=== PATIENT | male | born 1960 | race Caucasian/White ===

== ENCOUNTER → 2019-01-08 15:54 | Outpatient (CLI) | payer MEDICARE, SELFPAY ==
--- NOTE | 2019-01-08 15:57 | CT_ITS ---
STUDY: LOW DOSE CT LUNG CANCER SCREENING REASON FOR EXAM: Male, 58 years old. Lung cancer screening RADIATION DOSAGE (If Supplied By Facility): CTDIvol = ( 4.02 ) mGy, DLP = ( 140.94 ) mGycm TECHNIQUE: No contrast was administered. Low dose technique was utilized (average mAS-38 and kVp 120). 1.25 mm axial source images with a slice interval of 1.25-mm were reconstructed in lung windows. 2.5 mm axial source images with a slice interval of 2.5-mm were reconstructed in lung windows. 5.0 mm axial source images with a slice interval of 5.0-mm were reconstructed in soft tissue windows. Nodule measured using lung windows on PACS and/or independent workstation with automated measurement of minimum and maximum diameter. Nodule measurement reported as average diameter rounded to the nearest whole number. Growth is defined as an increase ins size of greater than 1.5 mm. COMPARISON: None. FINDINGS: Lung nodules There is a 2 mm peripheral right upper lobe nodule on series 2 image 101. 2 mm peripheral right upper lobe nodule on image 112. 2 mm right middle lobe nodule on image 134. There are scattered calcified granulomas. Lungs COPD: None. Fibrosis: None. Lymph nodes: None. Other findings: None. Pleural space Effusion: None. Calcification: None. Thickening: None. Heart Heart size: Normal. Coronary calcification: Mild. Pericardial effusion: None. Other findings: None. Upper abdomen: None. Thorax: There are degenerative changes of the spine. Base of neck: None. CT/Low Dose CT Lung Screening IMPRESSION: Lung-RADS category 2 - Continue annual screening with LDCT in 12 months. IMPORTANT NOTES FOR USE: ACR Lung-RADS Version 1.0 Assessment Categories Release Date: February 23, 2014 Category: Coded 0-4 bases on nodule(s) with highest degree of suspicion. Negative screen is defined as categories 1 and 2; a positive screen is defined as categories 3 and 4. Category 3 and 4A nodules that are unchanged on interval CT should be coded as category 2, and individuals returned to screening in 12 months. Category 4X: Category 3 or 4 nodules with additional imaging findings that increase the suspicion of lung cancer, such as spiculation, GGN that doubles in size in 1 year, enlarged lymph notes, etc. Category Modifiers: S (significant finding unrelated to lung cancer) and C (prior history of treated lung cancer) may be added to the 0-4 Lung-RADS Electronically Signed: Velia Kimball, at 13:00 EDT Tel , Service support ,
== END ==
PROVIDERS: Family Provider Family Medicine; PCP Family Medicine; Referring Provider Family Medicine; Visit Provider Family Medicine
DX: Z12.2 Encounter for screening for malignant neoplasm of respiratory organs (principal); Z87.891 Personal history of nicotine dependence
CPT/HCPCS: G0297

== ENCOUNTER → 2020-08-23 10:07 | Outpatient (CLI) | payer MEDICARE, SELFPAY ==
[2020-08-23 08:17] VITALS: BMI 31.9
[2020-08-23 12:20] LABS: Basophil# 0.06 X10^3/uL; Basophil% 0.7 % (0-1); Eosinophil# 0.42 X10^3/uL; Eosinophils% 5.2 % (0-5); Hematocrit 38.1 % (40-54); Hemoglobin 12.6 g/dL (13.0-16.5); Lymphocyte % 13.5 % (19-41); Mean Corp Hgb Conc 33.1 g/dL (32-36); Mean Corpuscular Hgb 28.6 pg (27.0-32.0); Mean Corpuscular Volume 86.6 fL (80-94); Mean Platelet Vol. 9.9 fl (6.2-12.0); Monocyte# 0.51 X10^3/uL; Monocyte% 6.3 % (0-10); NRBC Flagged by Analyzer 0 % (0-5); Neutrophil # 6.03 X10^3/uL (2.7-7.7); Neutrophil % 74.1 % (47-70); Platelet Count 244 K/mm3 (150-450); RBC Distribution Width CV 14.6 % (11.6-14.6); RBC Distribution Width SD 45.9 fl (35.1-43.9); White Blood Count 8.1 K/mm3 (4.4-11.0)
[2020-08-23 12:45] LABS: Hemoglobin A1c 5.2 % (3.8-5.6)
[2020-08-23 12:55] LABS: ALB/GLOB Ratio 1.2 RATIO (0.9-2.4); AST(SGOT) 25 U/L (15-37); Alanine Aminotransfer ALT/SGPT 44 U/L (16-61); Albumin, Serum 4.3 g/dL (3.2-5.0); Alkaline Phosphatase 135 U/L (45-117); Anion Gap 8 (5-15); BUN 17 mg/dL (7-18); Calcium,Total 9.9 mg/dL (8.5-10.1); Chloride 103 mmol/L (98-107); Creatinine, Serum 1.21 mg/dL (0.70-1.30); EST Glomerular Filtration Rate 65 mL/min (>60); Est Glom Filt Rate - Afr Amer 79 mL/min (>60); Globulin 3.5 g/dL (2.2-4.2); Glucose 115 mg/dL (74-106); PSA,Total - Annual Screen 0.33 ng/mL (0.00-4.00); Potassium 4.5 mmol/L (3.5-5.1); Protein, Total 7.8 g/dL (6.4-8.2); Sodium Level 138 mmol/L (136-145)
== END ==
PROVIDERS: PCP Internal Medicine; Visit Provider Internal Medicine
DX: E78.5 Hyperlipidemia, unspecified (principal); I25.2 Old myocardial infarction; I51.9 Heart disease, unspecified; N13.8 Other obstructive and reflux uropathy; N40.1 Benign prostatic hyperplasia with lower urinary tract symptoms; Z12.5 Encounter for screening for malignant neoplasm of prostate; Z79.899 Other long term (current) drug therapy
CPT/HCPCS: 36415; 80053; 83036; 84153; 85025; G0103

== ENCOUNTER → 2020-09-03 10:15 | Outpatient (CLI) | payer MEDICARE, SELFPAY ==
[2020-08-23 08:17] VITALS: BMI 31.9
== END ==
PROVIDERS: PCP Internal Medicine; Referring Provider Internal Medicine; Visit Provider Internal Medicine
DX: R05 Cough (principal)
CPT/HCPCS: 87635; C9803; U0003

== ENCOUNTER 2020-09-14 15:20 | Emergency (ER) | payer MEDICARE, SELFPAY ==
[2020-09-14 15:20] VITALS: BP 129/80; PULSE 91; RESP 16; TEMP 36.6; O2SAT 100; BMI 29.4
--- NOTE | 2020-09-14 15:35 | EKG12_ITS ---
Test Reason : DIZZINESS Blood Pressure : / mmHG Vent. Rate : 084 BPM Atrial Rate : 084 BPM P-R Int : 160 ms QRS Dur : 106 ms QT Int : 366 ms P-R-T Axes : 040 054 059 degrees QTc Int : 432 ms Normal sinus rhythm Normal ECG Confirmed by JAMSHID OMALLEY, ALISHA ([id number]), editor book LISANDRA HAMMONDS ([id number]) on 09/15/2020 1:52:29 PM Referred By: ZAKIYA Confirmed By:ALISHA BREEN MD
[2020-09-14 15:40] VITALS: BP 109/68; BP 113/69; BP 124/72; PULSE 83; PULSE 88; PULSE 93
--- NOTE | 2020-09-14 16:04 | ED.DCSUM_ITS ---
History of Present Illness Chief Complaint: Hypotension Informant: Patient Onset: Today - Not feeling well, Yesterday - Hypotensive after work Context: Sudden Onset Timing: Intermittent Quality: Complain of orthostatic symptoms, shortness of breath and not feeling well Location: Occurred at work and episode occurred today Current Severity: - - Presently mild shortness of breath Maximum Severity: Moderate Worsened by: Nothing specific Relieved by: Nothing Associated Symptoms: Documented otherwise negative Narrative: Patient is a 60-year-old male who had his Coreg dose recently increased. He states he did not feel well it work yesterday and was short of breath. His blood pressure was normal in the morning. When he completed working his blood pressure was 100 systolic. He denied black or maroon stool. He denied chest discomfort. He denied cough, fever or chills. He denies ocular, visual auditory symptoms. He denies nausea or vomiting. He denies black or maroon stool. He he denies urologic symptoms. He denies neurologic symptoms. Prior similar symptoms: No Recent Illness/Hospitalization: Yes - Past Medical History (1) Gout Status: Acute (2) History of alcohol abuse Status: Acute (3) History of myocardial infarction Status: Acute (4) Anemia Status: Chronic (5) Anxiety and depression Status: Chronic (6) Diabetes Status: Chronic (7) GERD (gastroesophageal reflux disease) Status: Chronic (8) Liver disease Status: Chronic (9) Pancreatitis Status: Chronic (10) Schizoaffective disorder Status: Chronic (11) Status post insertion of drug-eluting stent into left anterior descending artery for coronary artery disease Status: Chronic Past Medical History - Allergies and Home Meds Allergies/Adverse Reactions: Allergies Penicillins [PCN] Allergy (Verified 09/14/20 15:22) Other Primary Care Physician: Caryl Turner MD [Primary Care Provider] - Prior records reviewed: Yes Surgical History: - - Recent stent placement Lives: Alone Smoking Status: Former smoker Drugs: None Review of Systems General: Reports: Malaise. Denies: Chills, Fever, Subjective, Sweats Eyes: Denies: Visual changes - bilaterally, Blurred Vision - bilaterally ENT: Denies: Bilateral ear pain Cardiovascular: Denies: Chest pain, Palpitations Respiratory: Reports: Dyspnea. Denies: Cough, Sputum, Dyspnea on exertion Gastrointestinal: Denies: Abdominal pain, Nausea, Vomiting, Diarrhea, Melena, Hematochezia Genitourinary: Denies: Dysuria, Hematuria, Frequency Musculoskeletal: Denies: Myalgias, Arthralgias, Neck pain, Back pain, Swelling, Extremity Pain, -, - Neurological: Reports: Weakness. Denies: Headache, Parasthesia Hematologic: Denies: Easy bruising, Easy bleeding Physical Exam Vital Signs/Narrative: Vital Signs Temp Pulse Pulse Pulse Pulse Resp BP 09/14/20 15:40 83 88 93 09/14/20 15:20 97.8 F 91 16 129/80 H BP BP BP Pulse Ox 09/14/20 15:40 124/72 H 113/69 109/68 09/14/20 15:20 100 Inital Vital Signs reviewed: Yes General: Well nourished, Well developed, No Acute Distress Head: Normocephalic, Atraumatic Eyes: Perrl, EOMI. Negative for: Pale conjunctiva, Scleral icterus ENT: Moist mucous membranes, No rhinorrhea, TM's clear Neck: Supple, Nontender, No lymphadenopathy, No JVD Cardiovascular: Regular rate, Regular rhythm, No murmurs, Normal S1, Normal S2 Respiratory: No distress, CTA bilaterally Abdomen: Soft, Nontender, Nondistended, Normal bowel sounds Rectal: Deferred Extremities: Nontender, No edema Skin: Normal color, No rash Neurological: Alert, Oriented x3, Cranial nerves II-XII grossly intact, Normal Strength, Normal Sensation Psychological: Normal affect Diagnostic/Tx/Re-eval Laboratory Results 09/14/20 09/14/20 15:55 15:55 WBC 9.1 RBC 4.46 L Hgb 12.7 L Hct 39.4 L MCV 88.3 MCH 28.5 MCHC 32.2 RDW Std Deviation 44.8 H RDW Coeff of Etta 13.9 Plt Count 237 MPV 9.5 Immature Gran % (Auto) 0.400 Neut % (Auto) 72.3 H Lymph % (Auto) 15.8 L [place] % (Auto) 6.7 Eos % (Auto) 4.1 Baso % (Auto) 0.7 Absolute Neuts (auto) 6.6 Absolute Lymphs (auto) 1.44 Nucleated RBC % 0 Sodium 142 Potassium 3.9 Chloride 109 H Carbon Dioxide 27.0 Anion Gap 6 BUN 19 H Creatinine 1.20 Estim Creat Clear Calc 75.83 Est GFR (MDRD) Af Amer 80 Est GFR (MDRD) Non-Af 66 BUN/Creatinine Ratio 15.8 Glucose 183 H Calcium 9.4 - Medical Decision Making Patient has vague symptoms. The hypotension may be due to the increase in his Coreg. Presently he is not hypotensive. Orthostatics were obtained and were negative. There is no evidence anemia. His BUN to creatinine ratio is less than 20-1 and would suggest that he does not have an acute GI bleed. Patient was informed the cause of his symptoms are uncertain. More importantly, his work-up is unremarkable. ED Disposition - Plan for ED Patient: Disposition: Home or Assisted Living Diagnosis: Orthostatic lightheadedness, Weakness Instructions: ED Weakness UKO, ED Low Blood Pressure All Causes Referrals: Caryl Turner MD [Primary Care Provider] - 3-5 Days
[2020-09-14 16:15] LABS: Absolute Lymphocyte Count 1.44 X10^3/uL (0.83-4.51); Absolute Neutrophil Count 6.6 X10^3/uL (2.0-7.7); Basophil# 0.06 X10^3/uL; Basophil% 0.7 % (0-1); Eosinophil# 0.37 X10^3/uL; Eosinophils% 4.1 % (0-5); Hematocrit 39.4 % (40-54); Hemoglobin 12.7 g/dL (13.0-16.5); Lymphocyte # 1.44 X10^3/ul (4.0); Lymphocyte % 15.8 % (19-41); Mean Corp Hgb Conc 32.2 g/dL (32-36); Mean Corpuscular Hgb 28.5 pg (27.0-32.0); Mean Corpuscular Volume 88.3 fL (80-94); Mean Platelet Vol. 9.5 fl (6.2-12.0); Monocyte# 0.61 X10^3/uL; Monocyte% 6.7 % (0-10); NRBC Flagged by Analyzer 0 % (0-5); Neutrophil # 6.59 X10^3/uL (2.7-7.7); Neutrophil % 72.3 % (47-70); Platelet Count 237 K/mm3 (150-450); RBC Distribution Width CV 13.9 % (11.6-14.6); RBC Distribution Width SD 44.8 fl (35.1-43.9); Red Blood Count 4.46 M/mm3 (4.6-6.2); White Blood Count 9.1 K/mm3 (4.4-11.0)
[2020-09-14 16:19] LABS: Anion Gap 6 (5-15); BUN 19 mg/dL (7-18); BUN/Creat Ratio 15.8 RATIO (10-20); Calcium,Total 9.4 mg/dL (8.5-10.1); Chloride 109 mmol/L (98-107); EST Glomerular Filtration Rate 66 mL/min (>60); Est Glom Filt Rate - Afr Amer 80 mL/min (>60); Estimated Creatinine Clearance 75.83 ml/min; Glucose 183 mg/dL (74-106); Potassium 3.9 mmol/L (3.5-5.1); Sodium Level 142 mmol/L (136-145)
[2020-09-14 16:39] VITALS: BP 131/77; PULSE 80; RESP 16
== END 2020-09-14 16:40 | disposition home or self-care (01) ==
PROVIDERS: Emergency Provider Emergency Medicine; PCP Internal Medicine
DX: R42 Dizziness and giddiness (principal); R53.1 Weakness; I25.10 Atherosclerotic heart disease of native coronary artery without angina pectoris; E11.9 Type 2 diabetes mellitus without complications; Z95.5 Presence of coronary angioplasty implant and graft; Z79.84 Long term (current) use of oral hypoglycemic drugs; Z79.82 Long term (current) use of aspirin
CPT/HCPCS: 80048; 85025; 93005; 99284; A4216

== ENCOUNTER → 2020-09-24 06:19 | Outpatient (CLI) | payer MEDICARE, SELFPAY ==
--- NOTE | 2020-09-24 11:07 | STRESSREP ---
Stress Test Report Exercise myocardial perfusion stress test. 60-year-old man with a history of coronary artery disease status post angioplasty and stenting of the left anterior descending artery. Stress protocol: Resting EKG demonstrates normal sinus rhythm with a rate of 77 bpm normal intervals are noted resting blood pressure is 148/88 mmHg. The patient exercised according to regular Evaristo protocol for a total duration of 4 minutes and 31 seconds. The maximum heart rate attained was 146 bpm which was 90% of max impacted heart rate and a workload of 6.4 metabolic equivalents. The test was terminated due to the target heart rate being achieved and dyspnea. No angina was noted. At rest there were no ST or T wave changes noted to suggest ischemia at peak exercise upsloping ST changes were noted in the inferolateral leads with T wave inversions noted in lead III. The above did not meet the criteria for ischemia. The peak blood pressure was 230/94 mmHg which suggested hypertensive response to exercise. Myocardial perfusion protocol. 14.8 mCi of technetium 99m sestamibi was injected at rest. The patient exercised for 4-1/2 minutes and at peak exercise 44.7 mCi of technetium 99 sestamibi was injected stress images were obtained stress and rest images were reconstructed and compared in the short axis vertical long horizontal long axis. Gated images were also obtained Perfusion SPECT analysis: Review of the stress images demonstrate normal uptake of tracer noted in all areas of the myocardium the resting images similarly demonstrate normal uptake of tracer noted in all areas of the myocardium no reversibility is noted suggest ischemia no previous infarct is noted. Gated SPECT analysis: The gated ejection fraction is 55%. Conclusion: Normal exercise myocardial perfusion stress test at a moderate workload. Hypertensive response to exercise. Mild to moderate functional aerobic impairment.
== END ==
PROVIDERS: PCP Internal Medicine; Referring Provider Internal Medicine; Visit Provider Internal Medicine
DX: R06.00 Dyspnea, unspecified (principal); R42 Dizziness and giddiness; I51.9 Heart disease, unspecified; E11.9 Type 2 diabetes mellitus without complications; E78.5 Hyperlipidemia, unspecified
CPT/HCPCS: 78452; 93017; A9500; A4216

== ENCOUNTER 2020-10-06 16:47 | Emergency (ER) | payer MEDICARE, SELFPAY ==
[2020-10-06 16:47] VITALS: BP 195/104; PULSE 83; RESP 16; TEMP 36.7; O2SAT 100; BMI 32.7
[2020-10-06 17:12] VITALS: BP 182/91; PULSE 83; RESP 18; O2SAT 100
--- NOTE | 2020-10-06 17:35 | EKG12_ITS ---
Test Reason : DIZZY Blood Pressure : / mmHG Vent. Rate : 081 BPM Atrial Rate : 081 BPM P-R Int : 162 ms QRS Dur : 100 ms QT Int : 370 ms P-R-T Axes : 055 068 054 degrees QTc Int : 429 ms Normal sinus rhythm Normal ECG Confirmed by JAMSHID OMALLEY, ALISHA ([id number]), restaurant expeditor CLAUDIO SHOEMAKER ([id number]) on 10/08/2020 2:08:10 PM Referred By: SLOAN Confirmed By:ALISHA BREEN MD
--- NOTE | 2020-10-06 17:44 | ED.VISSUMM ---
- ER Visit Summary Date of Service: 10/06/20 Chief Complaint: Dizziness History of Present Illness: The patient is a 60 M presents with dizziness that began approximate 1 hour prior to arrival. Patient states he feels lightheaded. Patient states this is localized to his head. Patient states he checked his blood pressure at home and noticed it was elevated. Patient called his anesthesiologist assistant certified who referred him to the emergency department. EMS checked his blood pressure and it was 222/119. EMS also did a fingerstick blood sugar and was 160. Patient states his symptoms improved with lying flat. Patient denies any recent fevers or chills. Patient denies any sick contacts. Patient denies any loss of taste or smell. Patient admits to nausea but denies any vomiting. Patient denies any chest pain or shortness of breath. Patient admits to some occasional dysuria. Physical Examination: Vital signs are stable except for an elevated blood pressure of 195/104. Patient is afebrile. Patient is in no acute distress. Oral mucosa is pink and moist. Neck is supple. Trachea is midline. There is no JVD noted. Heart was regular rate and rhythm. Lungs are clear and equal bilaterally. Abdomen is soft. Bowel sounds are normal. There is no tenderness. There is no rebound or guarding noted. Skin is warm dry. Cranial nerves II through XII are intact. There are no focal motor or sensory deficits noted. Extremities are intact. There is no calf tenderness or edema. Test Results: EKG was obtained. On my interpretation, there is a normal sinus rhythm with a rate of 81. There are no acute ST or T wave changes noted. Emergency Department Course and Treatment: Patient was given a dose of labetalol here. Patient had some improvement of his blood pressure with this. Patient was given a dose of clonidine. Patient's blood pressure improved to 153/90. Patient was feeling better on reevaluation. Patient was instructed to continue to monitor his blood pressure and his symptoms. Patient was instructed to follow-up with his primary care physician in 3 to 5 days. Patient was instructed return if worse in any way. Patient understood and was agreeable with the plan. All questions were answered. Disposition: Discharge home Impression: 1. Hypertension 2. Lightheadedness This note was generated with [employer] dictation software. It may contain incorrect words, spelling, and punctuation that were not noted in review of the chart prior to signing ED Disposition - Plan for ED Patient: Disposition: Home or Assisted Living Diagnosis: Hypertension, Lightheadedness Instructions: ED Hypertension, Established, ED High Blood Pressure ... Referrals: Caryl Turner MD [Primary Care Provider] - 3-5 Days
[2020-10-06] MEDS: Labetalol (Prefilled) 20 MG/4 ML IV (18:10)
[2020-10-06 18:49] LABS: Absolute Lymphocyte Count 1.21 X10^3/uL (0.83-4.51); Absolute Neutrophil Count 6.6 X10^3/uL (2.0-7.7); Basophil# 0.08 X10^3/uL; Basophil% 0.9 % (0-1); Eosinophil# 0.43 X10^3/uL; Eosinophils% 4.8 % (0-5); Hematocrit 38.6 % (40-54); Hemoglobin 13.2 g/dL (13.0-16.5); Lymphocyte # 1.21 X10^3/ul (4.0); Lymphocyte % 13.4 % (19-41); Mean Corp Hgb Conc 34.2 g/dL (32-36); Mean Corpuscular Hgb 29.7 pg (27.0-32.0); Mean Corpuscular Volume 86.7 fL (80-94); Mean Platelet Vol. 9.5 fl (6.2-12.0); Monocyte# 0.64 X10^3/uL; Monocyte% 7.1 % (0-10); NRBC Flagged by Analyzer 0 % (0-5); Neutrophil # 6.63 X10^3/uL (2.7-7.7); Neutrophil % 73.4 % (47-70); Platelet Count 266 K/mm3 (150-450); RBC Distribution Width CV 13.6 % (11.6-14.6); RBC Distribution Width SD 42.4 fl (35.1-43.9); Red Blood Count 4.45 M/mm3 (4.6-6.2)
--- NOTE | 2020-10-06 18:50 | RAD_ITS ---
STUDY: X-RAY CHEST REASON FOR EXAM: Male, 60 years old. Dizziness. Nausea. TECHNIQUE: Frontal view of the chest COMPARISON: None. FINDINGS: The lungs are clear. There are no pleural effusions. There is no pneumothorax. The heart is normal in size. The visualized osseous structures are within normal limits. RAD/Chest 1 View (Portable) IMPRESSION: No acute thoracic pathology. Electronically Signed: Angel Casas, at 19:04 EST Tel , Service support ,
[2020-10-06 18:53] LABS: ALB/GLOB Ratio 1.3 RATIO (0.9-2.4); AST(SGOT) 26 U/L (15-37); Alanine Aminotransfer ALT/SGPT 55 U/L (16-61); Albumin, Serum 4.4 g/dL (3.2-5.0); Alkaline Phosphatase 157 U/L (45-117); Anion Gap 6 (5-15); BUN 14 mg/dL (7-18); BUN/Creat Ratio 15.6 RATIO (10-20); Calcium,Total 9.4 mg/dL (8.5-10.1); Chloride 102 mmol/L (98-107); EST Glomerular Filtration Rate 92 mL/min (>60); Est Glom Filt Rate - Afr Amer 111 mL/min (>60); Estimated Creatinine Clearance 101.11 ml/min; Globulin 3.4 g/dL (2.2-4.2); Glucose 126 mg/dL (74-106); Potassium 3.7 mmol/L (3.5-5.1); Protein, Total 7.8 g/dL (6.4-8.2); Sodium Level 139 mmol/L (136-145)
[2020-10-06 19:24] LABS: Bacteria 0 SEEN /hpf (None Seen); Mucous, Urine 0 SEEN /hpf (<or=2+); Red Blood Cells-Urine 0 SEEN /hpf (0-5); Squamous Epithelial Cells - UA 0 SEEN /hpf (0-5); White Blood Cells 0 SEEN /hpf (0-5)
[2020-10-06 20:01] VITALS: BP 171/102; PULSE 81; RESP 18; O2SAT 97
[2020-10-06 20:01] LABS: Color, Urine Straw (Yellow); Glucose, Dipstick Normal (Normal); Ketone-Dipstick Negative (Negative); Leukocyte Esterase-Dipstick Negative /ul (Negative); Nitrite-Dipstick Negative (Negative); Occult Blood-Urine Negative /ul (Negative); Protein-Dipstick Negative (Negative); Urine Bilirubin Dipstick Negative (Negative); Urine Clarity Clear (Clear); Urine Urobilinogen Normal (Normal)
[2020-10-06] MEDS: cloNIDine HCl 0.1 MG Tablet PO (20:34)
[2020-10-06 21:35] VITALS: BP 153/90; PULSE 89; RESP 18; O2SAT 96
[2020-10-06 22:27] VITALS: BP 154/90; PULSE 82; RESP 16; O2SAT 95
== END 2020-10-06 22:34 | disposition home or self-care (01) ==
PROVIDERS: Emergency Provider Emergency Medicine; PCP Internal Medicine
DX: I10 Essential (primary) hypertension (principal); R42 Dizziness and giddiness; I25.10 Atherosclerotic heart disease of native coronary artery without angina pectoris; Z87.891 Personal history of nicotine dependence
CPT/HCPCS: 71045; 80053; 81001; 84484; 85025; 93005; 96374; 99285; A4216

== ENCOUNTER → 2020-11-03 09:01 | Outpatient (CLI) | payer MEDICARE, SELFPAY ==
[2020-11-03 08:32] VITALS: BMI 34.2
--- NOTE | 2020-11-03 12:12 | RAD_ITS ---
STUDY: X-RAY CHEST REASON FOR EXAM: Male, 60 years old. LINDSEY X 1 WK. HX SD W/ CARDIAC STENT INSTERTION TECHNIQUE: PA and lateral views of the chest. COMPARISON: 10/06/2020 FINDINGS: The lungs are clear and expanded. There is no demonstrated pleural abnormality. Normal size heart. Normal mediastinum and janey. Normal visualized pulmonary arteries. Normal visualized aortic arch and descending thoracic aorta. Normal visualized thoracic spine. Normal visualized ribs, clavicles, and shoulders. There is no demonstrated abnormality of the visualized soft tissue structures of the upper abdomen. RAD/Chest PA and Lateral IMPRESSION: Normal x-ray examination of the chest. Electronically Signed: García Llanes MD at 12:39 EST Tel , Service support ,
[2020-11-03 12:48] LABS: Anion Gap 5 (5-15); BUN 18 mg/dL (7-18); BUN/Creat Ratio 19.2 RATIO (10-20); Calcium,Total 8.9 mg/dL (8.5-10.1); Chloride 105 mmol/L (98-107); Creatinine, Serum 0.94 mg/dL (0.70-1.30); EST Glomerular Filtration Rate 88 mL/min (>60); Est Glom Filt Rate - Afr Amer 106 mL/min (>60); Glucose 129 mg/dL (74-106); Potassium 4.3 mmol/L (3.5-5.1); Sodium Level 137 mmol/L (136-145)
[2020-11-03 12:52] LABS: D-Dimer Quantitative (DVT/PE) <= 0.27 FEU/ug/m (0.27-0.49)
[2020-11-03 12:53] LABS: Absolute Lymphocyte Count 1.27 X10^3/uL (0.83-4.51); Absolute Neutrophil Count 5.4 X10^3/uL (2.0-7.7); Basophil# 0.06 X10^3/uL; Basophil% 0.7 % (0-1); Eosinophil# 0.52 X10^3/uL; Eosinophils% 6.4 % (0-5); Hematocrit 39.7 % (40-54); Lymphocyte # 1.27 X10^3/ul (4.0); Lymphocyte % 15.7 % (19-41); Mean Corp Hgb Conc 32.7 g/dL (32-36); Mean Corpuscular Hgb 29.2 pg (27.0-32.0); Mean Corpuscular Volume 89.2 fL (80-94); Mean Platelet Vol. 9.9 fl (6.2-12.0); Monocyte# 0.74 X10^3/uL; Monocyte% 9.2 % (0-10); NRBC Flagged by Analyzer 0 % (0-5); Neutrophil # 5.44 X10^3/uL (2.7-7.7); Neutrophil % 67.5 % (47-70); Platelet Count 258 K/mm3 (150-450); RBC Distribution Width CV 13.4 % (11.6-14.6); RBC Distribution Width SD 43.8 fl (35.1-43.9); Red Blood Count 4.45 M/mm3 (4.6-6.2); White Blood Count 8.1 K/mm3 (4.4-11.0)
[2020-11-03 14:02] LABS: BNP,B-Type NATRIURETIC PEPTIDE 141.3 pg/mL (0-100)
== END ==
PROVIDERS: PCP Internal Medicine; Referring Provider Internal Medicine; Visit Provider Internal Medicine
DX: R06.00 Dyspnea, unspecified (principal); I10 Essential (primary) hypertension; I25.2 Old myocardial infarction; Z95.5 Presence of coronary angioplasty implant and graft
CPT/HCPCS: 36415; 71046; 80048; 83880; 85025; 85379

== ENCOUNTER 2020-11-19 13:07 | Emergency (ER) | payer MEDICARE, SELFPAY ==
[2020-11-19 13:08] VITALS: BP 141/76; PULSE 63; RESP 20; TEMP 36; O2SAT 100; BMI 34.0
[2020-11-19 13:30] VITALS: BP 123/77; BP 145/90; PULSE 71; RESP 19; TEMP 36.5; O2SAT 99
--- NOTE | 2020-11-19 13:32 | EKG12_ITS ---
Test Reason : SOB Blood Pressure : / mmHG Vent. Rate : 067 BPM Atrial Rate : 067 BPM P-R Int : 166 ms QRS Dur : 094 ms QT Int : 394 ms P-R-T Axes : 048 054 065 degrees QTc Int : 416 ms Normal sinus rhythm Normal ECG Confirmed by JAMSHID OMALLEY, ALISHA ([id number]), medical editor LISANDRA HAMMONDS ([id number]) on 11/23/2020 10:50:19 AM Referred By: VERNA Confirmed By:ALISHA BREEN MD
[2020-11-19 13:39] VITALS: O2SAT 98
--- NOTE | 2020-11-19 14:00 | RAD_ITS ---
STUDY: X-RAY CHEST REASON FOR EXAM: Male, 60 years old. PT C/O SOB THAT HAS INCREASED STARTING TODAY. PT REPORTS HAVING BASELINE SOB SINCE LA. PT STATES and quot;I''VE BEEN COUGHING UP PINK STUFF, MOSTLY A CLEAR LIQUID WITH A PINK TINGE and quot; TECHNIQUE: Single AP portable view of the chest. COMPARISON: Comparison is made with prior examination dated 11/03/2020. FINDINGS: EKG electrodes are seen. The lungs are clear and expanded. Scattered calcified granulomas. There is no demonstrated pleural abnormality. There is borderline cardiomegaly. Normal mediastinum and janey. Normal visualized pulmonary arteries. Normal visualized aortic arch and descending thoracic aorta. There are diffuse degenerative changes of the visualized thoracic spine. Normal visualized ribs, clavicles, and shoulders. There is no demonstrated abnormality of the visualized soft tissue structures of the upper abdomen. RAD/Chest 1 View (Portable) IMPRESSION: Borderline cardiomegaly. Electronically Signed: Samuel Singh MD at 14:14 EST , Service support ,
[2020-11-19 14:20] LABS: Absolute Lymphocyte Count 1.05 X10^3/uL (0.83-4.51); Absolute Neutrophil Count 6.7 X10^3/uL (2.0-7.7); Basophil# 0.05 X10^3/uL; Basophil% 0.5 % (0-1); Eosinophil# 0.48 X10^3/uL; Eosinophils% 5.3 % (0-5); Hematocrit 38.4 % (40-54); Hemoglobin 12.9 g/dL (13.0-16.5); Lymphocyte # 1.05 X10^3/ul (4.0); Lymphocyte % 11.5 % (19-41); Mean Corp Hgb Conc 33.6 g/dL (32-36); Mean Corpuscular Hgb 29.5 pg (27.0-32.0); Mean Corpuscular Volume 87.9 fL (80-94); Mean Platelet Vol. 9.5 fl (6.2-12.0); Monocyte# 0.76 X10^3/uL; Monocyte% 8.3 % (0-10); NRBC Flagged by Analyzer 0 % (0-5); Neutrophil # 6.74 X10^3/uL (2.7-7.7); Platelet Count 251 K/mm3 (150-450); RBC Distribution Width CV 13.5 % (11.6-14.6); RBC Distribution Width SD 43.3 fl (35.1-43.9); Red Blood Count 4.37 M/mm3 (4.6-6.2); White Blood Count 9.1 K/mm3 (4.4-11.0)
[2020-11-19 14:32] LABS: International Normalized Ratio 1.1; Prothrombin Time (Protime)PT. 13.3 SECONDS (11.7-14.9)
[2020-11-19 14:35] LABS: D-Dimer Quantitative (DVT/PE) 0.29 FEU/ug/m (0.27-0.49)
[2020-11-19 14:46] LABS: ALB/GLOB Ratio 1.2 RATIO (0.9-2.4); AST(SGOT) 28 U/L (15-37); Alanine Aminotransfer ALT/SGPT 42 U/L (16-61); Albumin, Serum 4.1 g/dL (3.2-5.0); Alkaline Phosphatase 128 U/L (45-117); Anion Gap 5 (5-15); BUN 22 mg/dL (7-18); BUN/Creat Ratio 21.6 RATIO (10-20); Chloride 102 mmol/L (98-107); Creatinine, Serum 1.02 mg/dL (0.70-1.30); EST Glomerular Filtration Rate 80 mL/min (>60); Est Glom Filt Rate - Afr Amer 96 mL/min (>60); Estimated Creatinine Clearance 89.21 ml/min; Globulin 3.3 g/dL (2.2-4.2); Glucose 172 mg/dL (74-106); Potassium 4.5 mmol/L (3.5-5.1); Protein, Total 7.4 g/dL (6.4-8.2); Sodium Level 135 mmol/L (136-145)
[2020-11-19 14:53] LABS: BNP,B-Type NATRIURETIC PEPTIDE 96.3 pg/mL (0-100)
[2020-11-19 15:08] VITALS: BP 125/76; PULSE 70; RESP 13; O2SAT 96
[2020-11-19 15:11] VITALS: BP 125/76; PULSE 70; RESP 13; TEMP 36.6; O2SAT 96
--- NOTE | 2020-11-19 15:34 | ED.DCSUM_ITS ---
History of Present Illness Chief Complaint: Shortness of Breath Informant: Patient Narrative: 60-year-old male presenting with sudden onset of shortness of breath and pink- tinged sputum. Patient states that last year he had a heart cath and up receiving a stent. He follows with cardiology in [place]. He has had shortness of breath since that time. Most recently he has had intermittent episodes lasting an hour to an hour and a half where it significantly gets worse. He and his doctor have have tried changing his antiplatelet medication from Brilinta to Effient. They tried holding his lisinopril because he had a dry cough but felt worse off the lisinopril. Patient denies any fever. No leg swelling. No known history of congestive heart failure. During the episodes he is not experiencing any pain.. - Past Medical History (1) Gout Status: Chronic (2) History of alcohol abuse Status: Chronic (3) History of myocardial infarction Status: Chronic (4) Anxiety and depression Status: Chronic (5) Chronic dyspnea Status: Chronic (6) Diabetes Status: Chronic (7) GERD (gastroesophageal reflux disease) Status: Chronic (8) Hyperlipemia Status: Chronic (9) Hypertension Status: Chronic (10) Schizoaffective disorder Status: Chronic Past Medical History - Allergies and Home Meds Allergies/Adverse Reactions: Allergies Penicillins [PCN] Allergy (Verified 11/19/20 13:08) Other Primary Care Physician: Caryl Turner MD [Primary Care Provider] - Surgical History: - - Recent stent placement Smoking Status: Former smoker Drugs: None Review of Systems General: Denies: Chills, Fever, Sweats Eyes: Denies: Visual changes - bilaterally, Diplopia ENT: Denies: Rhinorrhea, Sore throat Cardiovascular: Denies: Chest pain, Palpitations Respiratory: Reports: Dyspnea, Cough. Denies: Dyspnea on exertion Gastrointestinal: Denies: Abdominal pain, Nausea, Vomiting, Diarrhea, Melena, Hematochezia Genitourinary: Denies: Dysuria, Hematuria, Frequency Musculoskeletal: Denies: Back pain, Extremity Pain Skin: Denies: Rash, Wounds Neurological: Denies: Headache, Weakness, Numbness Physical Exam Vital Signs/Narrative: Vital Signs Temp Pulse Resp BP Pulse Ox 11/19/20 15:11 98 F 70 13 125/76 H 96 11/19/20 15:08 70 13 125/76 H 96 11/19/20 13:30 97.7 F L 71 19 H 123/77 H 99 11/19/20 13:08 96.8 F L 63 20 H 141/76 H 100 Inital Vital Signs reviewed: Yes General: Well nourished, Well developed, No Acute Distress Head: Normocephalic, Atraumatic Eyes: Perrl, EOMI ENT: Moist mucous membranes, No rhinorrhea Neck: Supple, Nontender Cardiovascular: Regular rate, Regular rhythm, No murmurs Respiratory: No distress, CTA bilaterally, Chest nontender Abdomen: Soft, Nontender, Nondistended, Normal bowel sounds Back: Nontender, Normal Inspection Extremities: Nontender, No edema Skin: Normal color, No rash Neurological: Alert, Oriented x3, Cranial nerves II-XII grossly intact, Normal Strength, Normal Sensation Psychological: Normal affect, Normal Mood Diagnostic/Tx/Re-eval Clinical Impression(s) from Imaging Studies Chest X-Ray 11/19/20 14:00 IMPRESSION: Borderline cardiomegaly. Electronically Signed: Samuel Singh MD at 14:14 EST , Service support , Laboratory Last Values WBC 9.1 K/mm3 (4.4-11.0) 11/19/20 13:45 RBC 4.37 M/mm3 (4.6-6.2) L 11/19/20 13:45 Hgb 12.9 g/dL (13.0-16.5) L 11/19/20 13:45 Hct 38.4 % (40-54) L 11/19/20 13:45 MCV 87.9 fL (80-94) 11/19/20 13:45 MCH 29.5 pg (27.0-32.0) 11/19/20 13:45 MCHC 33.6 g/dL (32-36) 11/19/20 13:45 RDW Std Deviation 43.3 fl (35.1-43.9) 11/19/20 13:45 RDW Coeff of Etta 13.5 % (11.6-14.6) 11/19/20 13:45 Plt Count 251 K/mm3 (150-450) 11/19/20 13:45 MPV 9.5 fl (6.2-12.0) 11/19/20 13:45 Immature Gran % (Auto) 0.400 % (0.0-0.9) 11/19/20 13:45 Neut % (Auto) 74.0 % (47-70) H 11/19/20 13:45 Lymph % (Auto) 11.5 % (19-41) L 11/19/20 13:45 [place] % (Auto) 8.3 % (0-10) 11/19/20 13:45 Eos % (Auto) 5.3 % (0-5) H 11/19/20 13:45 Baso % (Auto) 0.5 % (0-1) 11/19/20 13:45 Absolute Neuts (auto) 6.7 X10^3/uL (2.0-7.7) 11/19/20 13:45 Absolute Lymphs (auto) 1.05 X10^3/uL (0.83-4.51) 11/19/20 13:45 Nucleated RBC % 0 % (0-5) 11/19/20 13:45 PT 13.3 SECONDS (11.7-14.9) 11/19/20 13:45 INR 1.1 11/19/20 13:45 APTT 32.0 Seconds (24.1-36.2) 11/19/20 13:45 D-Dimer Quant (PE/DVT) 0.29 FEU/ug/m (0.27-0.49) 11/19/20 13:45 Sodium 135 mmol/L (136-145) L 11/19/20 13:45 Potassium 4.5 mmol/L (3.5-5.1) 11/19/20 13:45 Chloride 102 mmol/L (98-107) 11/19/20 13:45 Carbon Dioxide 28.0 mmol/L (21.0-32.0) 11/19/20 13:45 Anion Gap 5 (5-15) 11/19/20 13:45 BUN 22 mg/dL (7-18) H 11/19/20 13:45 Creatinine 1.02 mg/dL (0.70-1.30) 11/19/20 13:45 Estim Creat Clear Calc 89.21 ml/min 11/19/20 13:45 Est GFR (MDRD) Af Amer 96 mL/min (>60) 11/19/20 13:45 Est GFR (MDRD) Non-Af 80 mL/min (>60) 11/19/20 13:45 BUN/Creatinine Ratio 21.6 RATIO (10-20) H 11/19/20 13:45 Glucose 172 mg/dL (74-106) H 11/19/20 13:45 Calcium 9.0 mg/dL (8.5-10.1) 11/19/20 13:45 Total Bilirubin 0.70 mg/dL (0.20-1.00) 11/19/20 13:45 AST 28 U/L (15-37) 11/19/20 13:45 ALT 42 U/L (16-61) 11/19/20 13:45 Alkaline Phosphatase 128 U/L (45-117) H 11/19/20 13:45 Troponin I < 0.015 ng/mL (<0.045) 11/19/20 13:45 B-Natriuretic Peptide 96.3 pg/mL (0-100) 11/19/20 13:45 Total Protein 7.4 g/dL (6.4-8.2) 11/19/20 13:45 Albumin 4.1 g/dL (3.2-5.0) 11/19/20 13:45 Globulin 3.3 g/dL (2.2-4.2) 11/19/20 13:45 Albumin/Globulin Ratio 1.2 RATIO (0.9-2.4) 11/19/20 13:45 - EKG Initial EKG Interpretation: Sinus Rhythm - EKG is normal sinus rhythm at a rate of 67. No concerning features of ACS. - Medical Decision Making Work-up including negative troponin and D-dimer. Chest x-ray is clear. He said no events on the monitor. At this point I do not see a acute reason to keep the patient in the hospital. I suggest he follow-up with his primary care and crm marketing specialist. ED Disposition - Plan for ED Patient: Disposition: Home or Assisted Living Diagnosis: Dyspnea Instructions: ED Dyspnea Referrals: Caryl Turner MD [Primary Care Provider] - (call to arrange follow up) Additional Instructions: Please call your crm marketing specialist to arrange follow-up.
[2020-11-19 15:52] VITALS: BP 129/81; PULSE 87; RESP 18; O2SAT 98
== END 2020-11-19 15:54 | disposition home or self-care (01) ==
PROVIDERS: Emergency Provider Emergency Medicine; PCP Internal Medicine
DX: R06.00 Dyspnea, unspecified (principal); E11.9 Type 2 diabetes mellitus without complications; E78.5 Hyperlipidemia, unspecified; I10 Essential (primary) hypertension; Z87.891 Personal history of nicotine dependence
CPT/HCPCS: 71045; 80053; 83880; 84484; 85025; 85379; 85610; 85730; 93005; 99285; A4216

== ENCOUNTER → 2020-11-25 13:08 | Outpatient (CLI) | payer MEDICARE, SELFPAY ==
[2020-11-03 08:32] VITALS: BMI 34.2
[2020-11-19 13:08] VITALS: BMI 34.0
--- NOTE | 2020-11-26 07:00 | PFT ---
INTRODUCTION: The patient is a 60-year-old male that presents for pulmonary function studies secondary to a diagnosis of dyspnea. Respiratory therapy reports good patient effort. Bronchodilators were used during testing. INTERPRETATION: Forced expiration spirometry demonstrates no evidence of a large airways obstructive ventilatory defect. There was no significant response to aerosolized bronchodilators. Spirograms are of good quality and plateau normally. The respiratory flow volume loop is normal. Body plethysmography was performed and reveals a decreased TLC to 5.4 L, 73% of predicted, indicative of a mild restrictive ventilatory impairment. Diffusing capacity by single breath CO is within normal limits at 91% of predicted. IMPRESSION: Isolated mild restrictive ventilatory impairment, which could be secondary to the patient's body habitus.
== END ==
PROVIDERS: PCP Internal Medicine; Referring Provider Internal Medicine; Visit Provider Internal Medicine
DX: R06.00 Dyspnea, unspecified (principal)
CPT/HCPCS: 94060; 94726; 94729

== ENCOUNTER 2020-12-08 22:05 | Emergency (ER) | payer MEDICARE, SELFPAY ==
[2020-12-08 22:06] VITALS: BP 176/88; PULSE 94; RESP 18; TEMP 36.6; O2SAT 99; BMI 34.5
[2020-12-08 22:29] VITALS: BP 164/84; PULSE 90; RESP 28; O2SAT 98
--- NOTE | 2020-12-08 22:33 | EKG12_ITS ---
Test Reason : DYSRHYTHMIA Blood Pressure : / mmHG Vent. Rate : 094 BPM Atrial Rate : 094 BPM P-R Int : 170 ms QRS Dur : 100 ms QT Int : 354 ms P-R-T Axes : 048 061 050 degrees QTc Int : 442 ms Normal sinus rhythm Normal ECG Confirmed by JOVANNI OMALLEY, TERRENCE ([id number]), associate editor CLAUDIO SHOEMAKER ([id number]) on 12/10/2020 8:37:14 AM Referred By: DEVIN Confirmed By:JAIRO BAIG MD
[2020-12-08 22:58] LABS: Absolute Lymphocyte Count 0.71 X10^3/uL (0.83-4.51); Absolute Neutrophil Count 9.5 X10^3/uL (2.0-7.7); Basophil# 0.05 X10^3/uL; Basophil% 0.5 % (0-1); Eosinophil# 0.23 X10^3/uL; Eosinophils% 2.1 % (0-5); Hematocrit 35.3 % (40-54); Hemoglobin 12.3 g/dL (13.0-16.5); Lymphocyte # 0.71 X10^3/ul (4.0); Lymphocyte % 6.5 % (19-41); Mean Corp Hgb Conc 34.8 g/dL (32-36); Mean Corpuscular Hgb 29.9 pg (27.0-32.0); Mean Corpuscular Volume 85.9 fL (80-94); Mean Platelet Vol. 9.3 fl (6.2-12.0); Monocyte# 0.48 X10^3/uL; Monocyte% 4.4 % (0-10); NRBC Flagged by Analyzer 0 % (0-5); Neutrophil # 9.47 X10^3/uL (2.7-7.7); Neutrophil % 86.1 % (47-70); Platelet Count 183 K/mm3 (150-450); RBC Distribution Width CV 13.2 % (11.6-14.6); RBC Distribution Width SD 41.1 fl (35.1-43.9); Red Blood Count 4.11 M/mm3 (4.6-6.2)
--- NOTE | 2020-12-08 23:02 | RAD_ITS ---
STUDY: X-RAY CHEST REASON FOR EXAM: Male, 60 years old. Patient with shortness of breath and fever since 1500 today TECHNIQUE: Single AP portable view of the chest. COMPARISON: November 19, 2020 FINDINGS: There are monitoring devices The lungs are clear and expanded. There is no demonstrated pleural abnormality. Normal size heart. Normal mediastinum and janey. Normal visualized pulmonary arteries. Normal visualized aortic arch and descending thoracic aorta. There are diffuse degenerative changes of the visualized thoracic spine. Normal visualized ribs, clavicles, and shoulders. There is no demonstrated abnormality of the visualized soft tissue structures of the upper abdomen. RAD/Chest 1 View (Portable) IMPRESSION: Degenerative changes, as described above. No demonstrated acute cardiopulmonary process. Electronically Signed: Marcial Altamirano MD at 23:29 EST , Service support ,
--- NOTE | 2020-12-08 23:11 | ED.VIS.GEN ---
History of Present Illness Chief Complaint: Shortness of Breath Narrative: Patient was exposed to Covid about a week ago, he arrives to the ED he has some shortness of breath, he had a temperature 100.4 earlier tonight at home, he has some myalgias and he had an episode where he felt his heart racing. He tells me he is quite anxious because he is worried about Covid. He has no myalgias no nausea vomiting or diarrhea. He has no abdominal pain. He has no back pain or chest pain no tearing sensation. He has no lower extremity edema or calf pain or any other DVT or PE risk factors. Past medical history: Hypertension, hypercholesterolemia, coronary artery disease, diabetes Medications: Reviewed Social history: Noncontributory Review of systems: All systems negative except as indicated General: Fever as in HPI Eyes: Denies: Visual changes - bilaterally ENT: Denies: Rhinorrhea, Sore throat Cardiovascular: Denies: Chest pain. One episode of palpitations that has resolved Respiratory: Some subjective dyspnea. No cough. Gastrointestinal: Denies: Abdominal pain, Nausea, Vomiting Genitourinary: Denies: Dysuria Musculoskeletal: Denies: Myalgias Skin: Denies: Rash Neurological: Denies: Headache, no focal weakness Psych: Reports: negative Hematologic: Denies: Easy bruising, Easy bleeding Physical exam General: Patient appears slightly anxious but does not appear in any distress Head: Normocephalic, Atraumatic Eyes: Conjunctiva not pale ENT: Slightly dry mucous membranes Neck: Supple, Nontender, No lymphadenopathy Cardiovascular: Regular rate, Regular rhythm Respiratory: No distress, CTA bilaterally Abdomen: Soft, Nontender, Nondistended Back: Nontender, Normal Inspection. Negative for: CVA tenderness Extremities: Nontender, No edema Skin: Normal color, No rash Neurological: Alert, Normal Strength, Normal Sensation Psychological: Appears anxious Past Medical History - Allergies and Home Meds Allergies/Adverse Reactions: Allergies Penicillins [PCN] Allergy (Verified 12/08/20 22:09) Other Primary Care Physician: Caryl Turner MD [Primary Care Provider] - Surgical History: - - Recent stent placement Smoking Status: Former smoker Physical Exam Vital Signs/Narrative: Vital Signs Temp Pulse Resp BP Pulse Ox 12/08/20 22:29 90 28 H 164/84 H 98 12/08/20 22:06 97.9 F 94 18 176/88 H 99 Diagnostic/Tx/Re-eval - Rhythm Strip Rhythm Strip: Sinus Rhythm Rate: 94 Ectopy: None - EKG Initial EKG Interpretation: - - Sinus rhythm with a rate of 94. Normal HI and QTc intervals. No ischemic changes. Interpreted by emergency doctor - Medical Decision Making Patient has a normal emergency department work-up. He appears well. He is negative for Covid. He was initially anxious and slightly tachycardic however that significantly improved. His vitals are now normal and he has a normal work-up I believe he can be discharged with close follow-up. ED Disposition - Plan for ED Patient: Disposition: Home or Assisted Living Diagnosis: Dyspnea Instructions: ED Dyspnea Referrals: Caryl Turner MD [Primary Care Provider] - 2 Days
[2020-12-08 23:16] LABS: ALB/GLOB Ratio 1.3 RATIO (0.9-2.4); AST(SGOT) 53 U/L (15-37); Alanine Aminotransfer ALT/SGPT 58 U/L (16-61); Alkaline Phosphatase 129 U/L (45-117); Anion Gap 7 (5-15); BUN 17 mg/dL (7-18); BUN/Creat Ratio 17.8 RATIO (10-20); Calcium,Total 8.8 mg/dL (8.5-10.1); Chloride 105 mmol/L (98-107); Creatinine, Serum 0.96 mg/dL (0.70-1.30); EST Glomerular Filtration Rate 86 mL/min (>60); Est Glom Filt Rate - Afr Amer 104 mL/min (>60); Estimated Creatinine Clearance 94.79 ml/min; Globulin 3.1 g/dL (2.2-4.2); Glucose 250 mg/dL (74-106); Potassium 3.8 mmol/L (3.5-5.1); Protein, Total 7.1 g/dL (6.4-8.2); Sodium Level 135 mmol/L (136-145)
[2020-12-08 23:38] VITALS: BP 145/71; PULSE 89; RESP 20; O2SAT 99
== END 2020-12-08 23:39 | disposition home or self-care (01) ==
PROVIDERS: Emergency Provider Emergency Medicine; PCP Internal Medicine
DX: R06.00 Dyspnea, unspecified (principal); I25.10 Atherosclerotic heart disease of native coronary artery without angina pectoris; I10 Essential (primary) hypertension; E78.00 Pure hypercholesterolemia, unspecified; E11.9 Type 2 diabetes mellitus without complications; Z79.84 Long term (current) use of oral hypoglycemic drugs; Z79.82 Long term (current) use of aspirin; Z87.891 Personal history of nicotine dependence
CPT/HCPCS: 71045; 80053; 84484; 85025; 87426; 93005; 99283

== ENCOUNTER 2021-01-13 16:54 | Outpatient (RCR) | payer MEDICARE, SELFPAY ==
[2021-01-13] MEDS: COVID-19 VACC, MRNA(PFIZER)/PF 30 MCG/0.3 ML SYRINGE IM (14:20)
[2021-02-03] MEDS: COVID-19 VACC, MRNA(PFIZER)/PF 30 MCG/0.3 ML SYRINGE IM (14:08)
== END 2021-01-13 23:59 ==
LOC: IMMUN 16:54
PROVIDERS: PCP Internal Medicine; Visit Provider Family Medicine
DX: Z23 Encounter for immunization (principal)
CPT/HCPCS: 0001A; 0002A; 91300

== ENCOUNTER → 2021-08-19 14:56 | Outpatient (CLI) | payer MEDICARE, SELFPAY ==
--- NOTE | 2021-08-19 14:58 | US_ITS ---
STUDY: THYROID ULTRASOUND REASON FOR EXAM: Male, 61 years old. goiter TECHNIQUE: Ultrasound evaluation of the thyroid was performed with real-time and static rosario-scale imaging. COMPARISON: None. FINDINGS: RIGHT LOBE: The right lobe of the thyroid gland measures 4.2 x 1.2 x 1.6 cm. There is a heterogeneous echotexture. There are no demonstrated solid, cystic or complex lesions. LEFT LOBE: The left lobe of the thyroid gland measures 4.2 x 1.2 x 1.9 cm. There is a heterogeneous echotexture. Nodule 1:4 x 5 x 3 mm mixed cystic and solid isoechoic wider than tall ill-defined marginated nodule with no echogenic foci (TR 2) in the anterior left lobe consistent with an adenoma. Nodule 2:4 x 5 x 3 mm solid hypoechoic wider than tall smoothly marginated nodule with no echogenic foci (TR 4) in the anterior left lobe consistent with an adenoma. Nodule 3: 4 x 4 by 4 mm solid hypoechoic wider than tall smoothly marginated nodule with no echogenic foci (TR 4) in the posterior left lobe consistent with an adenoma. Nodule 4:6 x 13 x 7 mm solid hypoechoic wider than tall ill-defined marginated nodule with no echogenic foci (TR 4) in the posterior left lobe and follow-up ultrasound is recommended in one year. ISTHMUS: The isthmus measures 2 mm thick. . The regional lymph nodes are normal. US/Thyroid IMPRESSION: Thyroiditis with multiple nodules and follow-up ultrasound is recommended in one year. Electronically Signed: García Llanes MD at 14:23 EDT Tel , Service support ,
--- NOTE | 2021-08-19 14:58 | CT_ITS ---
STUDY: CT CHEST WITHOUT CONTRAST- LOW DOSE SCREENING PROTOCOL REASON FOR EXAM: Male, 61 years old. Former smoker. Quit smoking less than 15 years ago 20 pack per year history. No current symptoms of lung cancer or pulmonary infection. Shared decision-making with referring PCP documented in patient''s record. RADIATION DOSAGE (If Supplied By Facility): CTDIvol = ( 4.02 ) mGy, DLP = ( 144.46 ) mGycm TECHNIQUE: Low dose screening CT examination performed from the base of the neck to the upper abdomen. Sagittal and coronal reformatted images performed. Sagittal and coronal MIP images provided. The measurements provided are average, rounded measurements per ACR guidelines. COMPARISON: 01/08/2019 FINDINGS: There is no change in the 4 mm noncalcified nodule in the anterior subpleural left lower lobe the lungs on image 156 consistent with a noncalcified granuloma. No new noncalcified nodule or mass. There is no demonstrated pleural abnormality. Normal heart and pericardium. There are calcifications of the coronary arteries. Normal mediastinum. Normal hilar regions. Normal unenhanced pulmonary arteries. Normal aorta arch and descending thoracic aorta. Normal osseous structures. There is no demonstrated abnormality of the visualized upper abdomen. CT/Low Dose CT Lung Screening IMPRESSION: 1. No significant indeterminate incidental findings requiring additional imaging. 2. Incidental findings include 4 mm left lower lobe noncalcified granuloma. ASSESSMENT CATEGORY: LungRADS 1 - Negative. Continue annual screening with LDCT in 12 months, per established ACR guidelines. Electronically Signed: García Llanes MD at 6:38 EDT Tel , Service support ,
== END ==
PROVIDERS: PCP Internal Medicine; Referring Provider Internal Medicine; Visit Provider Internal Medicine
DX: E04.9 Nontoxic goiter, unspecified (principal); Z87.891 Personal history of nicotine dependence
CPT/HCPCS: 71271; 76536

== ENCOUNTER → 2021-08-25 13:48 | Outpatient (CLI) | payer MEDICARE, SELFPAY ==
[2021-08-25 15:14] LABS: Absolute Lymphocyte Count 1.16 X10^3/uL (0.83-4.51); Absolute Neutrophil Count 4.4 X10^3/uL (2.0-7.7); Basophil# 0.05 X10^3/uL; Basophil% 0.8 % (0-1); Eosinophil# 0.37 X10^3/uL; Eosinophils% 5.7 % (0-5); Hematocrit 37.3 % (40-54); Hemoglobin 12.8 g/dL (13.0-16.5); Lymphocyte # 1.16 X10^3/ul (0.83-4.51); Mean Corp Hgb Conc 34.3 g/dL (32-36); Mean Corpuscular Volume 87.6 fL (80-94); Mean Platelet Vol. 9.7 fl (6.2-12.0); Monocyte# 0.47 X10^3/uL; Monocyte% 7.3 % (0-10); NRBC Flagged by Analyzer 0 % (0-5); Neutrophil # 4.39 X10^3/uL (2.7-7.7); Neutrophil % 67.9 % (47-70); Platelet Count 201 K/mm3 (150-450); RBC Distribution Width CV 13.3 % (11.6-14.6); RBC Distribution Width SD 42.9 fl (35.1-43.9); Red Blood Count 4.26 M/mm3 (4.6-6.2); White Blood Count 6.5 K/mm3 (4.4-11.0)
[2021-08-25 15:39] LABS: ALB/GLOB Ratio 1.1 RATIO (0.9-2.4); AST(SGOT) 34 U/L (15-37); Alanine Aminotransfer ALT/SGPT 49 U/L (16-61); Albumin, Serum 3.9 g/dL (3.2-5.0); Alkaline Phosphatase 125 U/L (45-117); Anion Gap 6 (5-15); BUN 22 mg/dL (7-18); BUN/Creat Ratio 22.2 RATIO (10-20); Calcium,Total 9.3 mg/dL (8.5-10.1); Chloride 108 mmol/L (98-107); Cholesterol 101 mg/dL (200); Creatinine, Serum 0.99 mg/dL (0.70-1.30); EST Glomerular Filtration Rate 82 mL/min (>60); Est Glom Filt Rate - Afr Amer 99 mL/min (>60); Free T3 2.8 pg/mL (2.18-3.98); Globulin 3.5 g/dL (2.2-4.2); Glucose 170 mg/dL (74-106); High Density Lipoprotein 35 mg/dL; Potassium 4.9 mmol/L (3.5-5.1); Protein, Total 7.4 g/dL (6.4-8.2); Sodium Level 139 mmol/L (136-145); T4 Free Direct 0.85 ng/dL (0.76-1.46); Thyroid Stim Hormone (TSH) 1.95 uIU/mL (0.358-3.74); Triglycerides 147 mg/dL; Very Low Density Lipoprotein 29 mg/dL (5-40)
[2021-08-25 15:41] LABS: Vitamin D,25 Hydroxy 20.5 ng/mL
[2021-08-25 17:29] LABS: Hemoglobin A1c 6.5 % (3.8-5.6)
[2021-08-29 16:08] LABS: Thyroid Peroxidase AB 18 IU/mL (0-34)
[2021-08-29 19:39] LABS: Thyroglobulin Antibody < 1.0 IU/mL (0.0-0.9)
== END ==
PROVIDERS: PCP Internal Medicine; Referring Provider Internal Medicine; Visit Provider Internal Medicine
DX: K76.9 Liver disease, unspecified (principal); F25.1 Schizoaffective disorder, depressive type; E11.9 Type 2 diabetes mellitus without complications; E16.2 Hypoglycemia, unspecified; E78.5 Hyperlipidemia, unspecified; I10 Essential (primary) hypertension; E04.9 Nontoxic goiter, unspecified; E04.2 Nontoxic multinodular goiter
CPT/HCPCS: 36415; 80053; 80061; 82306; 83036; 84439; 84443; 84481; 85025; 86376; 86800

== ENCOUNTER → 2021-09-13 07:08 | Outpatient (CLI) | payer MEDICARE, SELFPAY | PROVIDERS: PCP Internal Medicine; Referring Provider Internal Medicine; Visit Provider Internal Medicine | DX: G47.30 Sleep apnea, unspecified (principal); R05.9 Cough, unspecified; R06.09 Other forms of dyspnea; I51.9 Heart disease, unspecified | CPT/HCPCS: 95810 ==

== ENCOUNTER → 2021-10-04 13:23 | Outpatient (CLI) | payer MEDICARE, SELFPAY ==
[2021-10-11 10:09] LABS: Testosterone, Free 6.56 ng/dL (5.00-21.00)
[2021-10-11 15:31] LABS: Testosterone, Total 205 ng/dL (264-916)
== END ==
PROVIDERS: PCP Internal Medicine; Referring Provider Internal Medicine; Visit Provider Internal Medicine
DX: R53.83 Other fatigue (principal)
CPT/HCPCS: 36415; 84402; 84403

== ENCOUNTER 2021-11-02 06:37 | Day surgery (SDC) | payer MEDICARE, SELFPAY ==
[2021-10-31 13:01] LABS: Absolute Lymphocyte Count 1.04 X10^3/uL (0.83-4.51); Absolute Neutrophil Count 5.2 X10^3/uL (2.0-7.7); Basophil# 0.06 X10^3/uL; Basophil% 0.9 % (0-1); Eosinophil# 0.22 X10^3/uL; Eosinophils% 3.1 % (0-5); Hematocrit 36.5 % (40-54); Hemoglobin 12.7 g/dL (13.0-16.5); Lymphocyte # 1.04 X10^3/ul (0.83-4.51); Lymphocyte % 14.8 % (19-41); Mean Corp Hgb Conc 34.8 g/dL (32-36); Mean Corpuscular Hgb 29.4 pg (27.0-32.0); Mean Corpuscular Volume 84.5 fL (80-94); Mean Platelet Vol. 9.4 fl (6.2-12.0); Monocyte# 0.43 X10^3/uL; Monocyte% 6.1 % (0-10); NRBC Flagged by Analyzer 0 % (0-5); Neutrophil # 5.22 X10^3/uL (2.7-7.7); Neutrophil % 74.5 % (47-70); Platelet Count 238 K/mm3 (150-450); RBC Distribution Width CV 13.1 % (11.6-14.6); RBC Distribution Width SD 39.5 fl (35.1-43.9); Red Blood Count 4.32 M/mm3 (4.6-6.2)
[2021-10-31 13:20] LABS: Anion Gap 9 (5-15); BUN 20 mg/dL (7-18); BUN/Creat Ratio 23.3 RATIO (10-20); Calcium,Total 9.3 mg/dL (8.5-10.1); Chloride 103 mmol/L (98-107); Creatinine, Serum 0.86 mg/dL (0.70-1.30); EST Glomerular Filtration Rate 97 mL/min (>60); Est Glom Filt Rate - Afr Amer 117 mL/min (>60); Glucose 153 mg/dL (74-106); Potassium 3.8 mmol/L (3.5-5.1); Sodium Level 137 mmol/L (136-145)
[2021-10-31 13:22] LABS: International Normalized Ratio 1.1; Partial Thromboplast Time 38.4 Seconds (24.1-36.2); Prothrombin Time (Protime)PT. 13.9 SECONDS (11.7-14.9)
[2021-11-01 07:08] VITALS: BMI 34.2
--- NOTE | 2021-11-02 08:17 | CL.D_ITS ---
Patient Name: ALIX LEE Study Date: 11/02/2021 Performing: Marck Orellana MD Ht: 73 inches 185 cm : 1960 Wt: 260.5 lbs 118 kg Age: 61 Gender: male BSA: 2.4 PROCEDURE(S) PERFORMED [id number])LHC/COR/LV CLINICAL PROFILE AND INDICATIONS Indications: Suspected CAD Heart Failure: None Stress/Imaging Stress/Image Study Performed: No CAD Presentations: Symptom unlikely to be ischemic. CONCLUSIONS Previously placed stent in the left anterior descending artery is noted to be patent. There is moder ate disease noted in the right coronary artery and the circumflex artery but no high-grade stenosis n oted. Preserved ejection fraction. RECOMMENDATIONS Medical therapy DESCRIPTION OF PROCEDURE The patient arrived to the procedure lab. The risks and benefits of the procedure as well as a full d escription of our services here and current unavailability of surgical backup were fully explained to the patient and/or their significant other prior to the catheterization. The Timeout was completed, verifying the correct patient and procedure. The patient's procedural site was prepped and draped in the usual fashion. Local anesthetic was given subcutaneously to right radial region with Lidocaine 2% . Using a modified Seldinger technique, arterial access was obtained via the right radial artery, a 6 Fr sheath was inserted. Left Coronary Artery selective angiography was performed in multiple views u sing a 5 Fr. 4.0 Clifton catheter. Right Coronary Artery selective angiography was then performed in mu ltiple views using a 5 Fr. 4.0 Clifton catheter. Left Ventriculography was performed in VÁZQUEZ projection using a 5 Fr. Pigtail catheter. LV to AO pullback pressures were then recorded.The arterial sheath was pulled and a TR Band was applied for hemostasis. 10cc of air CORONARY ANGIOGRAPHY DOMINANCE: Co- Dominant LEFT HEART ASSESSMENT Left Ventricular Ejection Fraction: by LV Gram 60 % Normal LV wall motion Normal Left Ventricular systolic function LEFT MAIN: Angiographically normal LEFT ANTERIOR DESCENDING ARTERY: PROX LAD: Previously placed stent is patent MID LAD: No significant disease noted DISTAL LAD: Mild luminal irregularities CIRCUMFLEX ARTERY: Moderate luminal irregularities up to 50% RAMUS: No significant disease noted RIGHT CORONARY ARTERY: No significant disease noted RT PDA: Proximal - Moderate luminal irregularities up to 50% COMPLICATIONS No Complications PROCEDURE MEDICATIONS Fentanyl 50 mcg IV Versed 1 mg IV Oxygen: 2 L/min via nasal cannula Heparin given IA 11/02/2021 07:56:36 Verapamil 2.5mg, Ntg 100mcgs, 3000 units of Heparin given IA 11/02/2021 07:56:36 SUMMARY OF HEMODYNAMIC DATA Time AIR REST ECG 07:02:58 AO 94/63 (77) SA 07:58:43 LV 118/5, 13 08:06:14 LV 118/4, 12 08:06:20 LV 113/8, 17 08:07:02 LVp 120/9, 19 08:07:09 AOp 129/75 (99) 08:07:14 ECG 08:17:39 08:17:57 Signed By Marck Orellana MD On 11/02/2021 08:18:13 Signed By Marck Orellana MD On 11/02/2021 08:17:03 Marck Orellana MD
== END 2021-11-02 23:59 | disposition home or self-care (01) ==
LOC: CLSP 06:40
PROVIDERS: Physician Assistant Medical; PCP Internal Medicine; Referring Provider Internal Medicine Cardiovascular Disease; Visit Provider Internal Medicine Cardiovascular Disease
DX: R06.00 Dyspnea, unspecified (principal); E11.9 Type 2 diabetes mellitus without complications; R53.83 Other fatigue; I10 Essential (primary) hypertension; I25.2 Old myocardial infarction; E78.5 Hyperlipidemia, unspecified; F32.A Depression, unspecified; F41.9 Anxiety disorder, unspecified; Z95.5 Presence of coronary angioplasty implant and graft; Z79.01 Long term (current) use of anticoagulants; Z79.82 Long term (current) use of aspirin; Z79.84 Long term (current) use of oral hypoglycemic drugs; Z79.899 Other long term (current) drug therapy; Z87.891 Personal history of nicotine dependence
CPT/HCPCS: 36415; 80048; 85025; 85610; 85730; 93458; 99152; 99153; J7040; C1769; C1894; Q9967

== ENCOUNTER 2021-12-22 13:42 | Outpatient (CLI) | payer MEDICARE, SELFPAY ==
[2021-12-22 15:48] LABS: Iron 93 ug/dL (65-175); Iron Binding Capacity,Total 394 ug/dL (250-450); PERCENT IRON SATURATION 23.6 % (15.0-55.0)
[2021-12-22 15:53] LABS: Vitamin D,25 Hydroxy 23.3 ng/mL
[2021-12-27 11:09] LABS: Testosterone, Free 7.96 ng/dL (5.00-21.00)
[2021-12-28 13:26] LABS: Testosterone, % Free 3.43 % (1.50-4.20); Testosterone, Total 232 ng/dL (264-916)
== END 2021-12-22 23:59 | disposition home or self-care (01) ==
LOC: BIMLAB 13:43
PROVIDERS: PCP Internal Medicine; Referring Provider Internal Medicine; Visit Provider Internal Medicine
DX: D64.9 Anemia, unspecified (principal); R79.89 Other specified abnormal findings of blood chemistry; R53.83 Other fatigue; E55.9 Vitamin D deficiency, unspecified
CPT/HCPCS: 36415; 82306; 83540; 83550; 84402; 84403

== ENCOUNTER 2022-01-11 13:21 | Outpatient (CLI) | payer MEDICARE, SELFPAY | END 2022-01-11 23:59 | disposition home or self-care (01) | LOC: CVS 13:22 | PROVIDERS: PCP Internal Medicine; Visit Provider Internal Medicine Cardiovascular Disease | DX: F25.1 Schizoaffective disorder, depressive type (principal); I25.118 Atherosclerotic heart disease of native coronary artery with other forms of angina pectoris; I25.2 Old myocardial infarction | CPT/HCPCS: 36415; 81291 ==

== ENCOUNTER → 2022-02-16 | Outpatient (CLI) | payer MEDICARE, SELFPAY ==
[2022-02-16 12:21] LABS: Absolute Lymphocyte Count 1.97 X10^3/uL (0.83-4.51); Absolute Neutrophil Count 5.2 X10^3/uL (2.0-7.7); Basophil# 0.08 X10^3/uL; Basophil% 0.9 % (0-1); Eosinophils% 4.7 % (0-5); Hematocrit 35.2 % (40-54); Lymphocyte # 1.97 X10^3/ul (0.83-4.51); Lymphocyte % 23.4 % (19-41); Mean Corp Hgb Conc 34.1 g/dL (32-36); Mean Corpuscular Hgb 30.3 pg (27.0-32.0); Mean Corpuscular Volume 88.9 fL (80-94); Mean Platelet Vol. 9.3 fl (6.2-12.0); Monocyte# 0.78 X10^3/uL; Monocyte% 9.3 % (0-10); NRBC Flagged by Analyzer 0 % (0-5); Neutrophil # 5.16 X10^3/uL (2.7-7.7); Neutrophil % 61.2 % (47-70); Platelet Count 203 K/mm3 (150-450); RBC Distribution Width CV 13.5 % (11.6-14.6); RBC Distribution Width SD 43.9 fl (35.1-43.9); Red Blood Count 3.96 M/mm3 (4.6-6.2); White Blood Count 8.4 K/mm3 (4.4-11.0)
[2022-02-16 13:02] LABS: ALB/GLOB Ratio 1.3 RATIO (0.9-2.4); AST(SGOT) 41 U/L (15-37); Alanine Aminotransfer ALT/SGPT 58 U/L (16-61); Alkaline Phosphatase 106 U/L (45-117); Anion Gap 6 (5-15); BUN 20 mg/dL (7-18); BUN/Creat Ratio 22.8 RATIO (10-20); Calcium,Total 9.2 mg/dL (8.5-10.1); Chloride 105 mmol/L (98-107); Creatinine, Serum 0.88 mg/dL (0.70-1.30); EST Glomerular Filtration Rate 94 mL/min (>60); Est Glom Filt Rate - Afr Amer 114 mL/min (>60); Globulin 3.1 g/dL (2.2-4.2); Glucose 129 mg/dL (74-106); Potassium 4.2 mmol/L (3.5-5.1); Protein, Total 7.1 g/dL (6.4-8.2); Sodium Level 138 mmol/L (136-145)
== END | disposition home or self-care (01) ==
LOC: BIMLAB 11:18
PROVIDERS: PCP Internal Medicine; Referring Provider Physician Assistant; Visit Provider Physician Assistant
CPT/HCPCS: 36415; 80053; 85025

== ENCOUNTER → 2022-02-20 | Outpatient (CLI) | payer MEDICARE, SELFPAY | END | disposition home or self-care (01) | LOC: LABSPEC 10:10 | PROVIDERS: PCP Internal Medicine; Referring Provider Physician Assistant; Visit Provider Physician Assistant | DX: R19.4 Change in bowel habit (principal); R19.5 Other fecal abnormalities; D64.9 Anemia, unspecified | CPT/HCPCS: 82274 ==

== ENCOUNTER → 2022-04-24 | Outpatient (CLI) | payer MEDICARE, SELFPAY ==
[2022-04-24 14:22] LABS: AST(SGOT) 30 U/L (15-37); Alanine Aminotransfer ALT/SGPT 57 U/L (16-61); Albumin, Serum 3.8 g/dL (3.2-5.0); Alkaline Phosphatase 115 U/L (45-117); Bilirubin, Direct 0.14 mg/dL (0.00-0.30); Cholesterol 99 mg/dL (200); Globulin 3.1 g/dL (2.2-4.2); High Density Lipoprotein 41 mg/dL; Protein, Total 6.9 g/dL (6.4-8.2); Triglycerides 157 mg/dL; Very Low Density Lipoprotein 31 mg/dL (5-40)
== END | disposition home or self-care (01) ==
LOC: LAB 12:44
PROVIDERS: PCP Internal Medicine; Visit Provider Internal Medicine Cardiovascular Disease
DX: E78.00 Pure hypercholesterolemia, unspecified (principal)
CPT/HCPCS: 36415; 80061; 80076

== ENCOUNTER → 2022-05-08 | Outpatient (CLI) | payer MEDICARE, SELFPAY ==
[2022-05-08 14:01] LABS: Absolute Lymphocyte Count 1.49 X10^3/uL (0.83-4.51); Absolute Neutrophil Count 5.3 X10^3/uL (2.0-7.7); Basophil# 0.06 X10^3/uL; Basophil% 0.8 % (0-1); Eosinophil# 0.35 X10^3/uL; Eosinophils% 4.4 % (0-5); Hemoglobin 11.7 g/dL (13.0-16.5); Lymphocyte # 1.49 X10^3/ul (0.83-4.51); Lymphocyte % 18.9 % (19-41); Mean Corp Hgb Conc 34.4 g/dL (32-36); Mean Corpuscular Volume 90.2 fL (80-94); Mean Platelet Vol. 9.8 fl (6.2-12.0); Monocyte# 0.63 X10^3/uL; NRBC Flagged by Analyzer 0 % (0-5); Neutrophil # 5.31 X10^3/uL (2.7-7.7); Neutrophil % 67.5 % (47-70); Platelet Count 200 K/mm3 (150-450); RBC Distribution Width CV 13.3 % (11.6-14.6); RBC Distribution Width SD 43.3 fl (35.1-43.9); Red Blood Count 3.77 M/mm3 (4.6-6.2); White Blood Count 7.9 K/mm3 (4.4-11.0)
[2022-05-08 14:22] LABS: Hemoglobin A1c 6.2 % (3.8-5.6)
[2022-05-08 14:28] LABS: ALB/GLOB Ratio 1.3 RATIO (0.9-2.4); AST(SGOT) 34 U/L (15-37); Alanine Aminotransfer ALT/SGPT 52 U/L (16-61); Albumin, Serum 3.9 g/dL (3.2-5.0); Alkaline Phosphatase 103 U/L (45-117); Anion Gap 8 (5-15); BUN 22 mg/dL (7-18); BUN/Creat Ratio 20.8 RATIO (10-20); Calcium,Total 9.4 mg/dL (8.5-10.1); Chloride 104 mmol/L (98-107); Creatinine, Serum 1.06 mg/dL (0.70-1.30); EST Glomerular Filtration Rate 76 mL/min (>60); Est Glom Filt Rate - Afr Amer 92 mL/min (>60); Glucose 151 mg/dL (74-106); Iron 55 ug/dL (65-175); Iron Binding Capacity,Total 351 ug/dL (250-450); PERCENT IRON SATURATION 15.7 % (15.0-55.0); Potassium 3.9 mmol/L (3.5-5.1); Protein, Total 6.9 g/dL (6.4-8.2); Sodium Level 140 mmol/L (136-145)
[2022-05-12 20:22] LABS: Testosterone, % Free 2.11 % (1.50-4.20); Testosterone, Total 166 ng/dL (264-916)
== END | disposition home or self-care (01) ==
LOC: LAB 12:56
PROVIDERS: PCP Internal Medicine; Visit Provider Internal Medicine
DX: D64.9 Anemia, unspecified (principal); E11.9 Type 2 diabetes mellitus without complications; R79.89 Other specified abnormal findings of blood chemistry; I10 Essential (primary) hypertension; E78.5 Hyperlipidemia, unspecified
CPT/HCPCS: 36415; 80053; 83036; 83540; 83550; 84402; 84403; 85025

== ENCOUNTER 2022-06-07 13:00 | Outpatient (RCR) | payer MEDICARE, SELFPAY ==
--- NOTE | 2022-05-16 09:59 | HP.PTEVAL_ITS ---
Patient's Visit Information ALIX LEE is a 62 year old M referred to Physical Therapy by Dr. Caryl Turner MD with a diagnosis of R shoulder pain. Date of Evaluation: 05/16/22 Physical Therapist: Walt Bentley, PT, ATC - Visit Plan Frequency: 1x/Week Duration: 1 Week Plan: Issue and instruct pt on HEP of rotator cuff strengthening and scap stab ex's on next visit - Subjective Pt reports he has had R shoulder pain for approximately six months. Pt reports his pain had an insidious onset in nature. Pt reports he has had R shoulder pain like this before several years ago. Pt reports he received a cortisone injection at that time and the pain went away. Pt reports the pain is located on the lateral aspect of his R shoulder. Pt reports the pain is intermittent in nature. Pt reports lifting his arm out to the side or over his head, he experiences increased pain. 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 Pt reports no Dx tests at this time. Pt reports occasional sleep difficulty secondary to pain. Pt is R hand dominant. Pt reports he is not limited with IADL's, but notes he has to work through the pain in order to complete tasks at this time. 1/10 pain while pt is sitting at rest, 3/10 pain at worst (last time he tried to put in eye drops) - Pain R shoulder Pain Intensity (Out of 10): 1 Pain Intensity Range: 3 - Objective Neuro: B UE sensation is WNL to light touch. B bicipital reflex= 2/3. ROM: L shoulder flex= 160, abd= 155, ER= 65, IR WNL : R shoulder flex= 130, abd= 120, ER= 70, IR WNL. MMT: R shoulder flex= 4-/5, ER= 4-/5. All other B UE MMT 5/5 throughout. Palpation: Pt is sore along the distribution of the supraspinatus muscle. No obvious deformity noted this date. Special tests: Pos empty can sign and HK impingement tests - Balance/Special Test Scores Quick DASH Score: 13.6350 - Goals Goal 1:: I with HEP of rotator cuff strengthening and scpular stab ex's in 1 visit Goal Time Frame: 1 Week - Rehabilitation Potential Physical Therapy Diagnosis: Pt has R shoulder pain, weakness, and limited ROM secondary to R shoulder impingement Rehabilitation Potential: Good - Anticipated Interventions Patient/Client Instruction: Educate patient on: Condition, Plan of Care For the Purpose of:: To improve self management Therapeutic Exercise to Include: Strength training, Scapular Strength/Stabilization For the Purpose of:: To decrease pain, To increase ROM, To improve muscle performance and motor function Cryotherapy (ice pack, ice massage): Yes For the Purpose of:: To decrease pain Thank you for the opportunity to evaluate your patient. For Medicare and Medicare HMO plans, please review the plan of care and approve it. It will need to be FAXED BACK to us at [phone] for Medicare purposes. For Medicare only, by signing this I certify the plan of care. Please let me know if there are questions or concerns regarding this plan of care. Physician Signature: Date:
--- NOTE | 2022-06-07 13:50 | HP.PTDCSUM ---
It has been my pleasure to treat ALIX LEE referred by Dr. Caryl Turenr MD, with the diagnosis of R shoulder pain for a total of 2 visit(s). Discharge Date: Please see the following information for a summary of their discharge status. Subjective: Pt reports no pain this date R shoulder Pain Intensity (Out of 10): 0 % Improvement: 75 Objective/Function: Pt is now I with HEP Goal 1:: I with HEP of rotator cuff strengthening and scpular stab ex's in 1 visit Goal Progress: Goal Met Plan: Discharge to HEP If there are questions or concerns regarding this patient's physical therapy, please feel free to call me at [phone]. Thank you for the referral of this patient. Sincerely, Walt Bentley, PT, ATC Balance/Gait/Functional tests - Balance/Special Test Scores Quick DASH Score: 13.6371
== END 2022-06-07 13:55 | disposition home or self-care (01) ==
LOC: PT 13:00
PROVIDERS: PCP Internal Medicine; Referring Provider Internal Medicine; Visit Provider Internal Medicine
DX: M25.511 Pain in right shoulder (principal)
CPT/HCPCS: 97110; 97161

== ENCOUNTER 2022-07-29 23:12 | Emergency (ER) | payer MEDICARE, SELFPAY ==
--- NOTE | 2022-07-29 | RAD_ITS ---
EXAM: XR RIGHT FOOT COMPLETE, 3 OR MORE VIEWS CLINICAL INDICATION: injury TECHNIQUE: Frontal, lateral and oblique views of the right foot. This report was created using [email or web address] report generation technology. COMPARISON: None. FINDINGS: BONES/JOINTS: Posterior greater than plantar calcaneal enthesopathy. No acute fracture. No subluxation. Normal alignment. Preservation of the joint space. No sclerotic or destructive changes observed. SOFT TISSUES: Unremarkable. No soft tissue swelling or gas. No radiopaque foreign body. RAD/Foot min 3 Views IMPRESSION: Calcaneal enthesopathy. No acute findings in the right foot. Electronically Signed: Bridger Marc MD at 0:36 EDT ,
[2022-07-29 23:13] VITALS: BP 173/86; PULSE 78; RESP 14; TEMP 36.3; O2SAT 100; BMI 34.2
--- NOTE | 2022-07-29 23:43 | EDS_ITS ---
HPI History of Present Illness Chief Complaint: Lower Extremity Injury Informant: patient Onset/Context/Timing Onset: Yesterday Current Severity: Mild Maximum Severity: Mild Narrative Narrative: Patient presents secondary to pain and swelling of the right great toe. He fell coming down a couple steps in his garage yesterday. He landed on his knee and thought that was the only area of injury. This morning he woke up with bruising on the distal aspect of his right great toe. The toe has become more swollen and red during the day. He went to urgent care but they did not have x-ray available. [facility] Medical History Anemia Anxiety and depression Atherosclerotic heart disease of [place] coronary artery with other forms of angina pectoris Bone fracture Depression Diabetes Essential hypertension Fatigue GERD (gastroesophageal reflux disease) Gout History of alcohol abuse History of non-ST elevation myocardial infarction (NSTEMI) (07/26/20) Hyperlipemia Hypoglycemia Liver disease Myocardial infarct Nausea Pancreatitis Pancreatitis Schizoaffective disorder Secondary pulmonary arterial hypertension Type 2 diabetes mellitus Urinary hesitancy Home Medications omega-3 fatty acids 1,000 mg capsule 1,000 mg PO DAILY 08/20/20 [History Last Taken Unknown] trifluoperazine 1 mg tablet 3 mg PO DAILY 08/20/20 [History Last Taken Unknown] aspirin 81 mg tablet,delayed release 81 mg PO DAILY #90 tabs 12/21/20 [Rx Last Taken 11/02/21] ferrous sulfate 325 mg (65 mg iron) tablet (Feosol) 325 mg PO DAILY 09/21/21 [History Last Taken Unknown] bupropion HCl 300 mg 24 hr tablet, extended release 300 mg PO DAILY 10/05/21 [History Last Taken 11/02/21] carvedilol 25 mg tablet 25 mg PO BID #180 tabs 10/05/21 [Rx Last Taken 11/02/21] olmesartan 40 mg tablet 40 mg PO DAILY #90 tabs 10/05/21 [Rx Last Taken Unknown] nitroglycerin 0.4 mg sublingual tablet (Nitrostat) 0.4 mg sublingual Q5-15M PRN chest pain #25 tabs 10/24/21 [Rx Last Taken Unknown] isosorbide mononitrate 30 mg tablet,extended release 24 hr 30 mg PO DAILY #90 tabs 12/09/21 [Rx Last Taken Unknown] metformin 500 mg tablet,extended release 24hr 1,000 mg PO BID 90 days #360 tabs 02/06/22 [Rx Last Taken Unknown] venlafaxine 225 mg tablet,extended release 24 hr 225 mg PO DAILY 02/16/22 [History Last Taken Unknown] prasugrel 10 mg tablet 10 mg PO DAILY #90 tabs 02/20/22 [Rx Last Taken Unknown] mirtazapine 7.5 mg tablet 30 mg PO QHS Anxiety 05/02/22 [History Last Taken Unknown] needle (disp) 18 G 18 gauge x 1 (BD Regular Bevel Brewster) #100 ea 05/22/22 [Rx Last Taken Unknown] syringe with needle, safety 3 mL 23 gauge x 1 (Monoject Safety Syringes) #50 ea 05/22/22 [Rx Last Taken Unknown] testosterone cypionate 200 mg/mL intramuscular oil 100 mg (0.5 mL) IM Q2W #10 mL 06/02/22 [Rx Last Taken Unknown] atorvastatin 80 mg tablet 80 mg PO QHS this is a dose increase, previous RX incorrect. #90 tabs 07/10/22 [Rx Last Taken Unknown] ertugliflozin 5 mg tablet (Steglatro) 5 mg PO DAILY #30 tabs 07/20/22 [Rx Last Taken Unknown] doxycycline hyclate 100 mg capsule 100 mg PO BID 07/29/22 [History Last Taken Unknown] quetiapine 25 mg tablet 25 mg PO DAILY 07/29/22 [History Last Taken Unknown] Allergy/AdvReac Type Severity Reaction Status Date / Time Penicillins [PCN] Allergy Other Verified 07/29/22 23:13 lisinopril AdvReac cough Verified 07/29/22 23:13 spironolactone AdvReac elevated Verified 07/29/22 23:13 blood sugar Family History Other CVA (cerebral vascular accident) Cancer Depression with anxiety Diabetes FH: mental illness Hyperlipemia Hypertension Osteoporosis Surgical History History of amputation of finger History of cataract surgery History of coronary artery stent placement (07/26/20) History of left heart catheterization (11/02/21) History of placement of ear tubes History of tonsillectomy Social History Smoking Status: Former smoker quit date: 10/29/05 Tobacco: How many years used: 15 alcohol intake: former year quit: 2014 substance use type: does not use what type of physical activity do you participate in: walking ROS ROS ED Constitutional Constitutional ED: Denies chills or fever(s) Eyes Eyes: Denies change in vision or discharge from eye(s) ENT ENT ED: Denies discharge from eye(s), rhinorrhea or sore throat Cardiovascular Cardiovascular: Denies chest pain or palpitations Respiratory/Chest Respiratory/Chest: Denies cough or dyspnea Gastrointestinal Gastrointestinal: Denies abdominal pain, diarrhea, nausea or vomiting Genitourinary Genitourinary ED: Denies difficulty urinating or dysuria Musculoskeletal Musculoskeletal: Reports extremity pain; Denies back pain Integumentary Denies Abrasions or rash Neurologic Neurologic: Denies headache(s) or weakness Psychiatric Psychiatric: Denies anxiety or depression Allergic/Immunologic Allergic/Immunologic ED: Denies lip swelling or urticaria EXAM Physical Exam Const Vital Signs: 07/29/22 23:13 Temperature 97.4 F L Temperature Source Temporal Pulse Rate 78 Respiratory Rate 14 Blood Pressure 173/86 H Blood Pressure Mean 115 Pulse Ox 100 Oxygen Delivery Method Room Air Positive well nourished and well developed General Appearance ED: well developed HEENT Reports normocephalic and head/scalp atraumatic Eyes PERRL and EOMs intact bilaterally Neck supple Chest Wall inspection of chest normal and palpation of chest normal Resp normal respiratory effort and clear to auscultation bilaterally Cardio regular rate and regular rhythm GI normal to inspection, nondistended, normoactive bowel sounds Palpation: soft Extremity Extremity Narrative: Ecchymosis to the distal aspect of the right great toe. Mild erythema at the first MTP joint. No bony tenderness throughout the midfoot. No open wounds. Neuro oriented x3 and no sensory deficits noted Sensorium / Orientation: alert Motor Exam: strength 5/5 throughout Psych mental status grossly normal Skin no rashes or lesions noted MDM MDM MDM Narrative Medical decision making narrative: Right foot x-ray obtained. Treatment and Re-Evaluation Narrative: Right foot x-ray per my interpretation reveals no acute bony findings. I did discuss with the patient notably the distal aspect of the toe ecchymotic area is from contusion from his fall. He does have erythema and tenderness at the first MTP joint as well. He has a history of gout but states this does not feel like gout. He does not feel like he needs anything strong for pain and does not want to go on steroids secondary to his diabetes. I did encourage him to watch this closely and have his foot rechecked in a couple days if not improving. He voices understanding and agreement. Discharge Plan Triage Chief Complaint: Lower Extremity Injury ED Provider: Neisha Laura Dx/Rx/DC Orders Clinical Impression: Contusion of foot, right, Fall Instructions: ED Foot Contusion Prescriptions: No Action trifluoperazine 1 mg tablet 3 mg PO DAILY omega-3 fatty acids 1,000 mg capsule 1,000 mg PO DAILY ferrous sulfate [Feosol] 325 mg (65 mg iron) tablet 325 mg PO DAILY bupropion HCl 300 mg tablet extended release 24 hr 300 mg PO DAILY carvedilol 25 mg tablet 25 mg PO BID Qty: 180 3RF olmesartan 40 mg tablet 40 mg PO DAILY Qty: 90 3RF mirtazapine 7.5 mg tablet 30 mg PO QHS venlafaxine 225 mg tablet extended release 24hr 225 mg PO DAILY quetiapine 25 mg Tablet 25 mg PO DAILY doxycycline hyclate 100 mg Capsule 100 mg PO BID aspirin 81 mg tablet,delayed release (DR/EC) 81 mg PO DAILY Qty: 90 1RF nitroglycerin [Nitrostat] 0.4 mg tablet, sublingual 0.4 mg sublingual Q5-15M PRN (Reason: chest pain) Qty: 25 3RF Rx Instructions: do not exceed 3 doses per episode isosorbide mononitrate 30 mg tablet extended release 24 hr 30 mg PO DAILY Qty: 90 3RF metformin 500 mg tablet extended release 24hr 1,000 mg PO BID 90 Days Qty: 360 1RF prasugrel 10 mg tablet 10 mg PO DAILY Qty: 90 3RF (DME) Monoject Safety Syringes 3 mL 23 gauge x 1 syringe See Rx Instructions .Route Qty: 50 1RF Rx Instructions: As directed (DME) needle (disp) 18 G [BD Regular Bevel Brewster] 18 gauge x 1 needle See Rx Instructions .Route Qty: 100 0RF Rx Instructions: As directed testosterone cypionate 200 mg/mL oil 100 mg IM Q2W Qty: 10 1RF atorvastatin 80 mg tablet 80 mg PO QHS Qty: 90 3RF Steglatro 5 mg tablet 5 mg PO DAILY Qty: 30 2RF Primary Care Provider: Caryl Turner Referrals: Caryl Turner MD [Primary Care Provider] - 3-5 Days if not improving Activity Restrictions/Additional Instructions: As discussed, you can use Voltaren cream [id number] topically for anti- inflammatory effects. Disposition Disposition: Home, Self Care
== END 2022-07-30 00:53 | disposition home or self-care (01) ==
PROVIDERS: Emergency Provider Emergency Medicine; PCP Internal Medicine; Visit Provider Emergency Medicine
DX: S90.31XA Contusion of right foot, initial encounter (principal); E11.9 Type 2 diabetes mellitus without complications; I25.10 Atherosclerotic heart disease of native coronary artery without angina pectoris; E78.5 Hyperlipidemia, unspecified; I10 Essential (primary) hypertension; I25.2 Old myocardial infarction; F41.9 Anxiety disorder, unspecified; F32.A Depression, unspecified; Z87.891 Personal history of nicotine dependence; Z95.5 Presence of coronary angioplasty implant and graft; Z79.82 Long term (current) use of aspirin; Z79.84 Long term (current) use of oral hypoglycemic drugs; Z79.899 Other long term (current) drug therapy; W10.9XXA Fall (on) (from) unspecified stairs and steps, initial encounter
CPT/HCPCS: 73630; 99282

== ENCOUNTER → 2022-09-27 | Outpatient (CLI) | payer MEDICARE, SELFPAY ==
[2022-10-07 16:08] LABS: Testosterone, Free 7.66 ng/dL (5.00-21.00)
[2022-10-07 20:28] LABS: Testosterone, % Free 2.86 % (1.50-4.20); Testosterone, Total 268 ng/dL (264-916)
== END | disposition home or self-care (01) ==
LOC: BIMLAB 15:14
PROVIDERS: PCP Internal Medicine; Referring Provider Internal Medicine; Visit Provider Internal Medicine
DX: E29.1 Testicular hypofunction (principal); R79.89 Other specified abnormal findings of blood chemistry
CPT/HCPCS: 36415; 84402; 84403

== ENCOUNTER → 2022-10-18 | Outpatient (CLI) | payer MEDICARE, SELFPAY ==
[2022-10-18 16:34] LABS: Absolute Lymphocyte Count 1.42 X10^3/uL (0.83-4.51); Absolute Neutrophil Count 5.3 X10^3/uL (2.0-7.7); Basophil# 0.07 X10^3/uL; Basophil% 0.9 % (0-1); Eosinophil# 0.43 X10^3/uL; Eosinophils% 5.4 % (0-5); Hemoglobin 13.3 g/dL (13.0-16.5); Lymphocyte # 1.42 X10^3/ul (0.83-4.51); Lymphocyte % 17.7 % (19-41); Mean Corpuscular Hgb 30.8 pg (27.0-32.0); Mean Platelet Vol. 9.6 fl (6.2-12.0); Monocyte# 0.76 X10^3/uL; Monocyte% 9.5 % (0-10); NRBC Flagged by Analyzer 0 % (0-5); Platelet Count 238 K/mm3 (150-450); RBC Distribution Width CV 13.8 % (11.6-14.6); Red Blood Count 4.32 M/mm3 (4.6-6.2)
[2022-10-18 17:24] LABS: ALB/GLOB Ratio 1.2 RATIO (0.9-2.4); AST(SGOT) 27 U/L (15-37); Alanine Aminotransfer ALT/SGPT 65 U/L (16-61); Albumin, Serum 4.1 g/dL (3.2-5.0); Alkaline Phosphatase 111 U/L (45-117); Anion Gap 9 (5-15); BUN 20 mg/dL (7-18); BUN/Creat Ratio 18.7 RATIO (10-20); Calcium,Total 9.3 mg/dL (8.5-10.1); Chloride 103 mmol/L (98-107); Cholesterol 109 mg/dL (200); Creatinine, Serum 1.07 mg/dL (0.70-1.30); EST Glomerular Filtration Rate 75 mL/min (>60); Est Glom Filt Rate - Afr Amer 91 mL/min (>60); Globulin 3.5 g/dL (2.2-4.2); Glucose 175 mg/dL (74-106); High Density Lipoprotein 38 mg/dL; Potassium 4.4 mmol/L (3.5-5.1); Protein, Total 7.6 g/dL (6.4-8.2); Sodium Level 136 mmol/L (136-145); Thyroid Stim Hormone (TSH) 5.02 uIU/mL (0.358-3.74); Triglycerides 212 mg/dL; Very Low Density Lipoprotein 42 mg/dL (5-40)
[2022-10-19 09:31] LABS: Free T3 2.9 pg/mL (2.18-3.98); T4 Free Direct 0.98 ng/dL (0.76-1.46)
== END | disposition home or self-care (01) ==
LOC: BIMLAB 15:04
PROVIDERS: PCP Internal Medicine; Referring Provider Internal Medicine; Visit Provider Internal Medicine
DX: F25.1 Schizoaffective disorder, depressive type (principal); E11.9 Type 2 diabetes mellitus without complications; E66.9 Obesity, unspecified; E29.1 Testicular hypofunction; I10 Essential (primary) hypertension; Z12.5 Encounter for screening for malignant neoplasm of prostate
CPT/HCPCS: 36415; 80053; 80061; 84153; 84439; 84443; 84481; 85025; G0103

== ENCOUNTER → 2023-01-22 | Outpatient (CLI) | payer MEDICARE, SELFPAY ==
[2023-01-22 11:30] LABS: Absolute Lymphocyte Count 1.71 X10^3/uL (0.83-4.51); Absolute Neutrophil Count 5.1 X10^3/uL (2.0-7.7); Basophil# 0.06 X10^3/uL; Basophil% 0.7 % (0-1); Eosinophil# 0.52 X10^3/uL; Eosinophils% 6.3 % (0-5); Hematocrit 37.4 % (40-54); Hemoglobin 12.6 g/dL (13.0-16.5); Lymphocyte # 1.71 X10^3/ul (0.83-4.51); Lymphocyte % 20.9 % (19-41); Mean Corp Hgb Conc 33.7 g/dL (32-36); Mean Corpuscular Hgb 30.4 pg (27.0-32.0); Mean Corpuscular Volume 90.1 fL (80-94); Mean Platelet Vol. 9.4 fl (6.2-12.0); Monocyte# 0.73 X10^3/uL; Monocyte% 8.9 % (0-10); NRBC Flagged by Analyzer 0 % (0-5); Neutrophil # 5.14 X10^3/uL (2.7-7.7); Neutrophil % 62.8 % (47-70); Platelet Count 196 K/mm3 (150-450); RBC Distribution Width CV 14.1 % (11.6-14.6); RBC Distribution Width SD 45.6 fl (35.1-43.9); Red Blood Count 4.15 M/mm3 (4.6-6.2); White Blood Count 8.2 K/mm3 (4.4-11.0)
[2023-01-22 11:43] LABS: Hemoglobin A1c 6.8 % (3.8-5.6)
[2023-01-22 11:59] LABS: Vitamin B12 701 pg/mL (211-911); Vitamin D,25 Hydroxy 34.5 ng/mL
[2023-01-22 12:06] LABS: ALB/GLOB Ratio 1.2 RATIO (0.9-2.4); AST(SGOT) 32 U/L (15-37); Alanine Aminotransfer ALT/SGPT 56 U/L (16-61); Alkaline Phosphatase 108 U/L (45-117); Anion Gap 6 (5-15); BUN 26 mg/dL (7-18); Calcium,Total 9.1 mg/dL (8.5-10.1); Chloride 106 mmol/L (98-107); Creatinine, Serum 1.18 mg/dL (0.70-1.30); EST Glomerular Filtration Rate 67 mL/min (>60); Est Glom Filt Rate - Afr Amer 81 mL/min (>60); Globulin 3.3 g/dL (2.2-4.2); Glucose 113 mg/dL (74-106); Iron 81 ug/dL (65-175); Iron Binding Capacity,Total 378 ug/dL (250-450); PERCENT IRON SATURATION 21.4 % (15.0-55.0); Potassium 3.9 mmol/L (3.5-5.1); Protein, Total 7.3 g/dL (6.4-8.2); Sodium Level 137 mmol/L (136-145); Thyroid Stim Hormone (TSH) 3.33 uIU/mL (0.358-3.74)
[2023-01-25 10:08] LABS: Testosterone, Free 9.76 ng/dL (5.00-21.00)
[2023-01-25 13:05] LABS: Testosterone, % Free 3.19 % (1.50-4.20); Testosterone, Total 306 ng/dL (264-916)
== END | disposition home or self-care (01) ==
LOC: LAB 10:50
PROVIDERS: PCP Internal Medicine; Referring Provider Internal Medicine; Visit Provider Internal Medicine
DX: R79.89 Other specified abnormal findings of blood chemistry (principal); E11.9 Type 2 diabetes mellitus without complications; D64.9 Anemia, unspecified; E04.2 Nontoxic multinodular goiter; E29.1 Testicular hypofunction; I10 Essential (primary) hypertension; E78.5 Hyperlipidemia, unspecified; K21.9 Gastro-esophageal reflux disease without esophagitis; E55.9 Vitamin D deficiency, unspecified
CPT/HCPCS: 36415; 80053; 82306; 82607; 83036; 83540; 83550; 84402; 84403; 84443; 85025

== ENCOUNTER → 2023-03-05 | Outpatient (CLI) | payer MEDICARE, SELFPAY ==
--- NOTE | 2023-03-05 09:13 | STRESSREP ---
Stress Test Report Exercise myocardial perfusion stress test. 62-year-old man with a history of chest pain Stress protocol: Resting EKG demonstrates normal sinus rhythm with a rate of 81 bpm resting blood pressure is 148/82 mmHg. The patient exercised according to the regular [facility] protocol for a total duration of 6 minutes attaining a maximum heart rate of 148 bpm which was 92% of maximum predicted heart rate; the maximum workload was 7 metabolic equivalents. At rest there were no ST or T wave changes noted to suggest ischemia and at peak exercise upsloping ST changes only were noted which did not meet the criteria for ischemia. No clinical angina was noted the test was terminated due to the blood pressure elevation and target heart rate achieved. The peak blood pressure was 228/80 mmHg. this was a hypertensive response to exercise. Rate-pressure product was 32,500. Myocardial perfusion protocol. 14.3 mCi of technetium 99m sestamibi was injected at rest. The patient exercised according to regular [facility] protocol for total duration of 6 minutes and at peak exercise 44.5 mCi of technetium 99m sestamibi was injected stress images were obtained stress and rest images were reconstructed in comparing the short axis vertical long and horizontal long axis. Gated images were also obtained. Perfusion SPECT analysis: Review of the stress images demonstrate normal uptake of tracer noted in all areas of the myocardium. The resting images similarly demonstrate normal uptake of tracer noted in all areas of the myocardium. No areas of reversibility are noted to suggest ischemia no previous infarct was noted. Gated SPECT analysis: The gated ejection fraction is 62%. Conclusion: Normal exercise myocardial perfusion stress test at a moderate workload Preserved ejection fraction. Hypertensive response to exercise
== END | disposition home or self-care (01) ==
LOC: CVS 06:03
PROVIDERS: PCP Internal Medicine; Referring Provider Nurse Practitioner Gerontology; Visit Provider Nurse Practitioner Gerontology
DX: R07.9 Chest pain, unspecified (principal); I25.118 Atherosclerotic heart disease of native coronary artery with other forms of angina pectoris
CPT/HCPCS: 78452; 93017; A9500; A4216

== ENCOUNTER → 2023-03-30 | Outpatient (CLI) | payer MEDICARE, SELFPAY ==
[2023-03-30 17:42] LABS: ALB/GLOB Ratio 1.2 RATIO (0.9-2.4); AST(SGOT) 32 U/L (15-37); Alanine Aminotransfer ALT/SGPT 40 U/L (16-61); Alkaline Phosphatase 110 U/L (45-117); Anion Gap 7 (5-15); BUN 31 mg/dL (7-18); BUN/Creat Ratio 25.6 RATIO (10-20); CRP < 2.90 mg/L (0.0-3.0); Calcium,Total 9.6 mg/dL (8.5-10.1); Chloride 109 mmol/L (98-107); Creatinine, Serum 1.21 mg/dL (0.70-1.30); EST Glomerular Filtration Rate 65 mL/min (>60); Est Glom Filt Rate - Afr Amer 78 mL/min (>60); Globulin 3.2 g/dL (2.2-4.2); Glucose 210 mg/dL (74-106); Protein, Total 7.2 g/dL (6.4-8.2); Sodium Level 140 mmol/L (136-145)
== END | disposition home or self-care (01) ==
LOC: LAB 15:51
PROVIDERS: PCP Internal Medicine; Referring Provider Nurse Practitioner Gerontology; Visit Provider Nurse Practitioner Gerontology
DX: M79.18 Myalgia, other site (principal)
CPT/HCPCS: 36415; 80053; 86140

== ENCOUNTER → 2023-09-24 | Outpatient (CLI) | payer MEDICARE, SELFPAY ==
[2023-09-24 17:05] LABS: Absolute Lymphocyte Count 1.45 X10^3/uL (0.83-4.51); Absolute Neutrophil Count 5.4 X10^3/uL (2.0-7.7); Basophil# 0.06 X10^3/uL; Basophil% 0.8 % (0-1); Eosinophil# 0.36 X10^3/uL; Eosinophils% 4.6 % (0-5); Hematocrit 39.2 % (40-54); Hemoglobin 13.2 g/dL (13.0-16.5); Lymphocyte # 1.45 X10^3/ul (0.83-4.51); Lymphocyte % 18.4 % (19-41); Mean Corp Hgb Conc 33.7 g/dL (32-36); Mean Corpuscular Hgb 29.6 pg (27.0-32.0); Mean Corpuscular Volume 87.9 fL (80-94); Mean Platelet Vol. 9.3 fl (6.2-12.0); Monocyte# 0.61 X10^3/uL; Monocyte% 7.7 % (0-10); NRBC Flagged by Analyzer 0 % (0-5); Neutrophil # 5.36 X10^3/uL (2.7-7.7); Platelet Count 201 K/mm3 (150-450); RBC Distribution Width CV 13.2 % (11.6-14.6); Red Blood Count 4.46 M/mm3 (4.6-6.2); White Blood Count 7.9 K/mm3 (4.4-11.0)
[2023-09-24 17:29] LABS: Hemoglobin A1c 6.9 % (3.8-5.6)
[2023-09-24 17:36] LABS: Vitamin D,25 Hydroxy 24.9 ng/mL
[2023-09-24 17:40] LABS: ALB/GLOB Ratio 1.3 RATIO (0.9-2.4); AST(SGOT) 25 U/L (15-37); Alanine Aminotransfer ALT/SGPT 47 U/L (16-61); Albumin, Serum 4.1 g/dL (3.2-5.0); Alkaline Phosphatase 110 U/L (45-117); Anion Gap 8 (5-15); BUN 23 mg/dL (7-18); Calcium,Total 8.7 mg/dL (8.5-10.1); Chloride 107 mmol/L (98-107); Cholesterol 106 mg/dL (200); Creatinine, Serum 1.15 mg/dL (0.70-1.30); EST Glomerular Filtration Rate 69 mL/min (>60); Est Glom Filt Rate - Afr Amer 83 mL/min (>60); Globulin 3.2 g/dL (2.2-4.2); Glucose 184 mg/dL (74-106); High Density Lipoprotein 34 mg/dL; Protein, Total 7.3 g/dL (6.4-8.2); Sodium Level 138 mmol/L (136-145); Thyroid Stim Hormone (TSH) 2.38 uIU/mL (0.358-3.74); Triglycerides 352 mg/dL; Very Low Density Lipoprotein 70 mg/dL (5-40)
[2023-09-29 13:07] LABS: Testosterone, % Free 2.77 % (1.50-4.20); Testosterone, Free 11.91 ng/dL (5.00-21.00); Testosterone, Total 430 ng/dL (264-916)
== END | disposition home or self-care (01) ==
LOC: LAB 16:34
PROVIDERS: PCP Internal Medicine; Referring Provider Internal Medicine; Visit Provider Internal Medicine
DX: E55.9 Vitamin D deficiency, unspecified (principal); E78.5 Hyperlipidemia, unspecified; R73.9 Hyperglycemia, unspecified; Z13.220 Encounter for screening for lipoid disorders
CPT/HCPCS: 36415; 80053; 80061; 82306; 83036; 84402; 84403; 84443; 85025

== ENCOUNTER 2023-11-14 14:02 | Outpatient (RCR) | payer MEDICARE, SELFPAY | END 2023-11-28 23:59 | LOC: NS 14:02 | PROVIDERS: PCP Internal Medicine; Referring Provider Nurse Practitioner Family; Visit Provider Nurse Practitioner Family | DX: Z71.3 Dietary counseling and surveillance (principal); E11.9 Type 2 diabetes mellitus without complications | CPT/HCPCS: 97802 ==

== ENCOUNTER → 2024-01-03 | Outpatient (CLI) | payer MEDICARE, SELFPAY ==
[2024-01-03 15:59] LABS: Absolute Lymphocyte Count 1.33 X10^3/uL (0.83-4.51); Absolute Neutrophil Count 5.6 X10^3/uL (2.0-7.7); Basophil# 0.05 X10^3/uL; Basophil% 0.6 % (0-1); Eosinophil# 0.36 X10^3/uL; Eosinophils% 4.5 % (0-5); Hematocrit 40.1 % (40-54); Hemoglobin 13.4 g/dL (13.0-16.5); Lymphocyte # 1.33 X10^3/ul (0.83-4.51); Lymphocyte % 16.6 % (19-41); Mean Corp Hgb Conc 33.4 g/dL (32-36); Mean Corpuscular Hgb 29.8 pg (27.0-32.0); Mean Corpuscular Volume 89.1 fL (80-94); Mean Platelet Vol. 9.3 fl (6.2-12.0); Monocyte# 0.64 X10^3/uL; NRBC Flagged by Analyzer 0 % (0-5); Neutrophil # 5.58 X10^3/uL (2.7-7.7); Neutrophil % 69.8 % (47-70); Platelet Count 216 K/mm3 (150-450); RBC Distribution Width CV 14.1 % (11.6-14.6); RBC Distribution Width SD 44.9 fl (35.1-43.9)
[2024-01-03 16:30] LABS: Insulin 6.7 mU/L (2.6-37.6); Vitamin D,25 Hydroxy 31.9 ng/mL
[2024-01-03 16:36] LABS: ALB/GLOB Ratio 1.4 RATIO (0.9-2.4); AST(SGOT) 26 U/L (15-37); Alanine Aminotransfer ALT/SGPT 44 U/L (16-61); Albumin, Serum 4.1 g/dL (3.2-5.0); Alkaline Phosphatase 86 U/L (45-117); Anion Gap 8 (5-15); BUN 26 mg/dL (7-18); BUN/Creat Ratio 24.8 RATIO (10-20); Calcium,Total 9.1 mg/dL (8.5-10.1); Chloride 104 mmol/L (98-107); Cholesterol 105 mg/dL (200); Creatinine, Serum 1.05 mg/dL (0.70-1.30); EST Glomerular Filtration Rate 76 mL/min (>60); Est Glom Filt Rate - Afr Amer 92 mL/min (>60); Glucose 161 mg/dL (74-106); High Density Lipoprotein 38 mg/dL; Potassium 4.2 mmol/L (3.5-5.1); Protein, Total 7.1 g/dL (6.4-8.2); Sodium Level 140 mmol/L (136-145); Thyroid Stim Hormone (TSH) 2.26 uIU/mL (0.358-3.74); Triglycerides 115 mg/dL; Very Low Density Lipoprotein 23 mg/dL (5-40)
[2024-01-03 16:49] LABS: Hemoglobin A1c 7.4 % (3.8-5.6)
--- OUTSIDE RECORDS SUMMARY | 2024-01-03 19:33 | XMS RPT_ITS | CCD ---
Author Name Unknown Address [address] [place] [address] Organization [facility] Care Team Providers Care Assistant Community Manager Name Role Phone PENNY OMALLEY, PIETRO Primary Care Physician [phone] Giovanni FELDMAN, Betty Unavailable Unavailable KASEY INGRAM Primary Care Unavailab le Allergies Allergy Classification Reported Allergen(s) Allergy Type Date of Onset Reaction(s) Facility (2 sources) Penicillin; Translations: [penicillins] Drug Allergy [facility] (1 source) Penicillins; Translations: [PENICILLINS] Propensity to adverse reactions to drug (disorder) 9 [facility] Repository Medications Current Medications Medication Drug Class(es) Dates Sig (Normalized) Sig (Original) Albuterol (Eqv-ProAir HFA) 90 mcg/inh inhalation aerosol (2 sources) Start: 08-12-2021 take 1 dose by inhalation every six hours Albuterol (Eqv-ProAir HFA) 90 mcg/inh inhalation aerosol Dose = 2 puff(s), Inhalation, q6hr, 0 Refill(s) Start Date: 08/12/21 Status: Ordered Aspirin (2 sources) Platelet Aggregation Inhibitor, Nonsteroidal Anti-inflammatory Drug Start: 07-28-2020 aspirin 81 mg oral delayed release tablet Dose : 81 mg = 1 tab(s), Oral, Daily, # 30 tab(s), 11 Refill(s), Pharmacy: [id number], 185.5, cm, 07/24/20 20:26:00 EDT, Height, kg, 07/27/20 6:47:00 EDT, Dosing Weight Start Date: 07/28/20 Status: Ordered atorvastatin 80 mg oral tablet (2 sources) HMG-CoA Reductase Inhibitor Start: 05-20-2021 Lipitor 80 mg oral tablet Dose : 80 mg = 1 tab(s), Oral, qDay, # 90 tab(s), 3 Refill(s), Pharmacy: [facility], 185, cm, 05/20/21 9:47:00 EDT, Height, kg, 05/20/21 9:47:00 EDT, Dosing Weight Start Date: 05/20/21 Status: Ordered carvedilol 25 mg oral tablet (2 sources) alpha-Adrenergic Luly, beta-Adrenergic Luly Start: 08-12-2021 Coreg 25 mg oral tablet Dose : 25 mg = 1 tab(s), Oral, BID, # 180 tab(s), 3 Refill(s), Pharmacy: [facility], 185.4, cm, 08/12/21 10:46:00 EDT, Height, kg, 08/12/21 10:46:00 EDT, Dosing Weight Start Date: 08/12/21 Status: Ordered metFORMIN hydrochloride 1000 mg oral tablet (2 sources) Biguanide Start: 05-20-2021 metFORMIN 1000 mg oral tablet EXTENDED RELEASE Dose : 1,000 mg = 1 tab(s), Oral, BID, # 60 tab(s), 0 Refill(s) Start Date: 05/20/21 Status: Ordered Multiple Vitamins oral capsule (2 sources) Start: 08-12-2021 take 1 capsule by mouth once daily Multiple Vitamins oral capsule Dose = 1 cap(s), Oral, Daily, 0 Refill(s) Start Date: 08/12/21 Status: Ordered nitroglycerin 0.4 mg sublingual tablet (2 sources) Start: 12-17-2020 nitroglycerin 0.4 mg sublingual tablet 0.4 mg Dose = 1 tab(s), Sublingual, q5min, PRN as needed for chest pain, not to exceed 3 doses/15 min--if pain persists, seek medical attention, # 100 tab(s), 0 Refill(s), Pharmacy: [facility], 185, cm, 12/09/20 14:16:00 EST, Height... Start Date: 12/17/20 Status: Ordered olmesartan medoxomil 40 mg oral tablet (2 sources) Angiotensin 2 Receptor Luly Start: 08-12-2021 olmesartan 40 mg oral tablet Dose : 40 mg = 1 tab(s), Oral, qDay, # 30 tab(s), 11 Refill(s), Pharmacy: [id number], 185.4, cm, 08/12/21 10:46:00 EDT, Height, kg, 08/12/21 10:46:00 EDT, Dosing Weight Start Date: 08/12/21 Status: Ordered [place]-3 1050 mg oral capsule (2 sources) Start: 07-15-2020 [place]-3 1050 mg oral capsule Dose : 1,050 mg = 1 cap(s), Oral, qDay, # 90 cap(s), 0 Refill(s) Start Date: 07/15/20 Status: Ordered rivaroxaban 2.5 mg oral tablet (4 sources) Factor Xa Inhibitor Start: 08-12-2021 Xarelto 2.5 mg oral tablet Dose : 2.5 mg = 1 tab(s), Oral, BID, # 60 tab(s), 11 Refill(s), Pharmacy: [facility], 185.4, cm, 08/12/21 10:46:00 EDT, Height, 119.2, kg, 08/12/21 10:46:00 EDT, Dosing Weight Start Date: 08/12/21 Status: Ordered spironolactone 25 mg oral tablet (2 sources) Aldosterone Antagonist Start: 08-12-2021 spironolactone 25 mg oral tablet Dose : 25 mg = 1 tab(s), Oral, qDayM, # 30 tab(s), 11 Refill(s), Pharmacy: [facility], 185.4, cm, 08/12/21 10:46:00 EDT, Height, kg, 08/12/21 10:46:00 EDT, Dosing Weight Start Date: 08/12/21 Status: Ordered ubidecarenone 100 mg oral capsule (2 sources) Start: 08-12-2021 Co Q-10 100 mg oral capsule Dose : 400 mg = 4 cap(s), Oral, Daily, 0 Refill(s) Start Date: 08/12/21 Status: Ordered Problems Problem Classification Problem Date Documented Da te Episodic/Chronic Acute and unspecified renal failure (2 sources) Chronic renal failure 08-11-2021 Chronic Alcohol-related disorders (4 sources) Alcohol dependence; Translations: [Chronic alcoholism in remission] 07-23-2020 Chronic Anxiety disorders (4 sources) Anxiety; Translations: [Obsessive-compulsive disorder] 08-02-2020 Chronic Coronary atherosclerosis and other heart disease (4 sources) Coronary arteriosclerosis 08-02-2020 Chronic Deficiency and other anemia (2 sources) Anemia 07-23-2020 Episodic Diabetes mellitus without complication (2 sources) Type 2 diabetes mellitus 02-17-2020 Chronic Disorders of lipid metabolism (4 sources) Hypertriglyceridemia; Translations: [Hyperlipidemia] 12-26-2019 Chronic Essential hypertension (2 sources) Hypertensive disorder 12-26-2019 Chronic Open wounds of extremities (2 sources) 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 Other lower respiratory disease (2 sources) Acute pulmonary edema 12-09-2020 Episodic Other nutritional; endocrine; and metabolic disorders (2 sources) Body mass index 30+ - obesity 02-17-2020 Chronic Other nutritional; endocrine; and metabolic disorders (2 sources) Obesity 02-17-2020 Chronic Other screening for suspected conditions (not mental disorders or infectious disease) (2 sources) Thallium stress test abnormal 07-22-2020 Episodic Schizophrenia and other psychotic disorders (4 sources) Schizoaffective disorder; Translations: [Schizophrenic disorders ] 09-12-2019 Chronic Syncope (2 sources) Near syncope 10-08-2020 Episodic Results Test Name Value Interpretation Reference Range Facil ity Encounters Encounter Date Encounter Type Care Provider Facility Start: 10-05-2023 End: 10-05-2023 ambulatory KASEY INGRAM Facility:[facility] Start: 09-20-2021 End: 09-20-2021 Patient encounter procedure MAIKOL ALEGRE APRN-PROFILER OPERATOR [facility] Start: 08-16-2021 End: 08-16-[address] JOCELYNE PHELPS MD [facility] Procedures Date Procedure Procedure Detail Performing Clinician Start: 12-29-2020 Cardi[address]res s testing DR JOCELYNE PHELPS MD Immunizations Immunization Date Immunization Notes Care Provider Fa cility 08-02-2020 influenza, injectabl e, quadrivalent, preservative free; Translations: [Fluarix PF Quadrivalent ] DR JOCELYNE PHELPS MD [facility] 09-03-2019 influenza, injectabl e, quadrivalent, preservative free; Translations: [Fluarix PF Quadrivalent ] DR JOCELYNE PHELPS MD [facility] Payers Date Payer Category Payer Unknown [id number] Social History Date Type Detail Facility Start: 12-24-2019 Never smoked tobacco (f inding) [facility] Progress note 10-05-2023 Note Date & Type Note Facility 10-05-2023 Note HNO ID: [id number] Author: Melissa Milan APRN.PROFILER OPERATOR Service: ? Author Type: Nurse Practitioner Type: Progress Notes Filed: 10/05/2023 6:48 PM Note Text: Subjective Cough Associated symptoms include chest pain (lungs burning with cough), headaches, myalgias and shortness of breath. Pertinent negatives include no chills, no sore throat and no wheezing. Angel Laura is a 63 year old male who presents with cough, body aches, headache, feeling short of breath. He believes he was exposed to COVID 2 days ago at [place]. He has not had a fever. He has not been taking any medications for his symptoms. Review of Systems Constitutional: Negative for chills and fever. HENT: Negative. Negative for congestion and sore throat. Respiratory: Positive for cough and shortness of breath. Negative for sputum production and wheezing. Cardiovascular: Positive for chest pain (lungs burning with cough). Musculoskeletal: Positive for myalgias. Neurological: Positive for headaches. BP 108/66 Pulse 85 Temp 36.8 ?C (98.3 ?F) Resp 24 Wt 120.2 kg (265 lb) SpO2 97% PAST MEDICAL HISTORY Diagnosis Date Alcohol abuse Diabetes mellitus type II 02/20/2009 Schizoaffective disorder (HCC) No past surgical history on file. ALLERGIES Penicillins MEDICATIONS FEROSUL 325 mg (65 mg iron) tablet TAKE 1 TABLET BY MOUTH TWICE DAILY FOR 30 DAYS, THEN 1 TABLET ONCE DAILY THEREAFTER nitroglycerin sublingual (NITROQUICK) 0.4 mg SL tablet 0.4 mg. aspirin, enteric coated (ASPIRIN, ENTERIC COATED) 81 mg EC tablet Take 81 mg by mouth once daily. prasugrel (EFFIENT) 10 mg tab Take 10 mg by mouth once daily. FLUoxetine (PROZAC) 10 mg capsule Take 10 mg by mouth once daily. venlafaxine XR (EFFEXOR XR) 225 mg tablet Take 225 mg by mouth once daily. isosorbide mononitrate ER (IMDUR) 60 mg 24 hr tablet Take 60 mg by mouth two times a day. icosapent ethyl (VASCEPA) 1 gram capsule Take 2 g by mouth two times a day. mirtazapine (REMERON) 30 mg tablet Take 30 mg by mouth once daily. clonazePAM (KLONOPIN) 0.5 mg tablet Take 1 mg by mouth daily at bedtime. amLODIPine (NORVASC) 5 mg tablet Take 5 mg by mouth once daily. STEGLATRO 15 mg tablet Take 1 tablet by mouth every afternoon. metFORMIN (GLUCOPHAGE) 500 mg tablet Take 1,000 mg by mouth once daily. triFLUOperazine (STELAZINE) 2 mg tablet Take 2 mg by mouth once daily. nirmatrelvir tablet 300 mg (150 mg x 2) and ritonavir tablet 100 mg in a dose pack (PAXLOVID) Administer TWO pink nirmatrelvir 150 mg tablets and ONE white ritonavir 100 mg tablet for a total of three tablets twice daily. atorvastatin (LIPITOR) 40 mg tablet Take 1 tablet by mouth once daily. carvedilol (COREG) 12.5 mg tablet Take 25 mg by mouth twice daily. olmesartan (BENICAR) 5 mg tablet Take 5 mg by mouth once daily. No family history on file. Social History Tobacco Use Smoking status: Never Smokeless tobacco: Never Tobacco comments: Denies Substance Use Topics Alcohol use: Yes Drug use: No Objective Physical Exam Vitals and nursing note reviewed. Constitutional: General: He is not in acute distress. Appearance: Normal appearance. He is obese. He is not ill-appearing. HENT: Mouth/Throat: Mouth: Mucous membranes are moist. Pharynx: Uvula midline. No oropharyngeal exudate or posterior oropharyngeal erythema. Cardiovascular: Rate and Rhythm: Normal rate and regular rhythm. Heart sounds: Normal heart sounds. Pulmonary: Effort: Pulmonary effort is normal. No respiratory distress. Breath sounds: Normal breath sounds. No wheezing or rales. Musculoskeletal: Cervical back: Neck supple. Lymphadenopathy: Cervical: No cervical adenopathy. Skin: General: Skin is warm and dry. Findings: No erythema or rash. Neurological: Mental Status: He is alert. ASSESSMENT/PLAN: 1. Suspected 2019 Novel Coronavirus Infection - ICD9: , ICD10: R68.89 - Patient has results from lab work dated: 09/24/2023 from [facility]. eGFR: 69 BUN: 23 Creatinine: 1.15 - NIRMATRELVIR 300 MG (150 MG X2)-RITONAVIR 100 MG TABLET,DOSE PACK- prescription printed for patient, he will start holding his statin medication tonight and will start taking Paxlovid if he tests positive for COVID. 2. Viral URI with cough - ICD9: 465.9, ICD10: J06.9 - Discussed viral etiology and rationale for treatment. - Symptomatic treatment with prn analgesia - Supportive care with fluids and rest - COVID AND INFLUENZA A/B NAAT, ROUTINE - Follow-up with your PCP in 3-5 days if symptoms have not improved or sooner if symptoms worsen - Discussed red flags and need for immediate medical evaluation if any occur. - Discussed supportive care treatment with fluids, rest and analgesia. - Discussed expected course of illness Melissa Milan APRN.[facility] Progress note 06-07-2022 Note Date & Type Note Facility 06-07-2022 Note HNO ID: [id number] Author: Gabriela Calzada PSYD Service: ? Author Type: Psychologist Type: Progress Notes Filed: 06/07/2022 1:13 PM Note Text: Behavioral Sleep Medicine Follow up Gabriela Calzada PSYD Indiviudal Psychotherapy - 45 minutes With the current coronavirus outbreak, we want to minimize the risk of exposing patients to this illness. I have reviewed this patient's chart and, per patient's request for an opportunity to be seen without having to present to the office, feel appropriate that this appointment be made a virtual visit. Those taking part in visit: patient and psychologist via [employer]. Consent for this visit received from patient. With the current coronavirus outbreak, we want to minimize the risk of exposing patients to this illness. I have reviewed this patient's chart and, per patient's request for an opportunity to be seen without having to present to the office, feel appropriate that this appointment be made a virtual visit. Those taking part in visit: patient and psychologist via [employer]. Consent for this visit received from patient. Session # 2 TREATMENT MODALITIES: Solution Focused Psychotherapy CBTI Motivational Interviewing SUBJECTIVE/OBJECTIVE: Patient update: Pt notes that his job is flexible - for this week he can't go in until after 6pm and needs to work for 4 hours. Wants to be with his in evening so this delays his work schedule significantly which leads to disruption in sleep schedule Will be working some more hours in the next couple of weeks so this will make later bedtimes unless he gets motivated earlier to start the day. Motivation enhancement with purpose of fortifying the patients resolve for change and to help empower the patient with a feeling of self-control. Rather than engaging patient's defense mechanisms through confrontational discourse, working with patient to create positive affirmations and a sense of inner willingness to facilitate change If it were left up to his preferences he would sleep during the day but spending time with family and scheduled appointments for doctors and other responsibilities are priority for him to try to work on more consistent sleep schedule. Motivation enhancement with purpose of fortifying the patients resolve for change and to help empower the patient with a feeling of self-control. Rather than engaging patient's defense mechanisms through confrontational discourse, working with patient to create positive affirmations and a sense of inner willingness to facilitate change. Pt was engaged in values clarification and committed action discussion. Pt did complete sleep logs, reviewed in session. Day Nap (mins) In bed Try sleep DANIEL (mins) #Wake WASO (mins) Awake Out of bed Quality TIBC TST -Apr 90 2135 2150 10 0 0 0232 0232 3 4.7 4.5 0 2355 2355 15 1 3 0705 0710 5 7.3 6.9 90 0140 0140 20 3 10 0630 0630 2 4.8 4.3 0 0010 0010 10 2 20 1030 1030 5 10.3 9.8 135 0600 0600 5 0 0 1130 1130 4 5.5 5.4 160 2230 2245 15 3 45 1200 1200 3 13.3 12.3 0 0230 0300 10 0 0 0526 0526 3 2.4 2.3 Average 68 0:54 1:02 12 1.3 11 7:56 7:56 3.6 6.9 6.5 TST+nap 7.6 Rx: 8.1 Day Nap (mins) In bed Try sleep DANIEL (mins) #Wake WASO (mins) Awake Out of bed Quality TIB TST -Apr 60 2330 2330 20 2 10 0740 0740 3 8.2 7.7 120 2330 2345 10 2 50 1205 1205 4 12.3 11.3 180 0130 0140 10 1 300 1220 1220 4 10.7 5.5 0 0030 0030 90 1 10 0740 0740 4 7.2 5.5 120 0200 0200 30 1 10 1000 1000 3 8.0 7.3 0 0415 0415 10 2 10 1150 1200 4 7.8 7.3 180 0230 0230 30 1 5 0545 0545 3 3.3 2.7 Average 94 1:23 1:27 29 1.4 56 9:37 9:38 3.6 8.2 6.8 TST+nap 8.3 Rx: 8.8 Day Nap (mins) In bed Try sleep DANIEL (mins) #Wake WASO (mins) Awake Out of bed Quality TIB TST -May 0 2220 2220 60 4 30 0545 0545 1 7.4 5.9 240 0730 0730 20 6 70 1110 1110 2 3.7 2.2 120 2140 2140 15 1 5 0600 0600 5 8.3 8.0 240 2300 2310 5 3 25 1015 1015 3 11.1 10.6 0 0000 43310 5 2 15 1100 1100 4 11.0 10.7 120 0135 0135 5 0 0 0600 0600 5 4.4 4.3 Average 120 0:40 #VALUE! 18 2.7 24 8:21 8:21 3.3 7.7 6.9 TST+nap 8.9 Rx: 9.4 Collaboratively developed plan for consistent bedtime 12-1am, waketime 10-11am. Exercise after awakening to start the day. ASSESSMENT: Insomnia Severity Index Total Score: 22 [22-28 = Clinical insomnia (severe)] Insomnia Severity Index 02/20/2022 04/26/2022 06/01/2022 Score 18 24 22 PHQ PHQ-9 Score: 20 [20-27 = Severe Depression] not at all on item #9 PHQ-9 02/20/2022 04/26/2022 06/01/2022 Score 12 15 20 LITA LITA-7 Total Score: 17 [15-21 = Severe Anxiety] LITA - 7 SCORES 04/26/2022 06/01/2022 LITA-7 Score 15 17 Estimated Average sleep time per night = 7 hrs, 9 hours including daytime naps DIAGNOSIS: Chronic Insomnia comorbid with mental health difficulties R/O Circadian rhythm disorder - delayed phase Schizoaffective Disorder 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 [employer] Progress note 05-16-2022 Note Date & Type Note Facility 05-16-2022 Note HNO ID: [id number] Author: Gabriela Calzada PSYD Service: ? Author Type: Psychologist Type: Progress Notes Filed: 05/16/2022 4:39 PM Note Text: [facility] BEHAVIORAL SLEEP MEDICINE [facility]BT[facility]iate Virtual Group May 16, 2022 Time: 3-4pm [id number]: Virtual Group Psychotherapy The CBT-Initiate virtual group is a one-time group that serves as the start of Cognitive Behavioral Therapy for Insomnia (CBT-I) . The following topics were introduced and discussed amongst the group: -Psychoeducation on basic healthy sleep, how sleep changes with age, the 2 Process Model, and the 3-P Model of Insomnia -What is Insomnia AND What is CBT-I -Sleep Hygiene -Stimulus Control -Psychoeducation on sleep medications Mr. Laura paid good attention during the group, and made several contributions to the discussion. His understanding of the material presented appeared good. ASSESSMENT: Insomnia Severity Index Total Score: 24 (04/26/2022 11:30 AM) Pt did complete sleep logs, reviewed in session with pt permission Day Nap (mins) In bed Try sleep DANIEL (mins) #Wake WASO (mins) Awake Out of bed Quality TIB TST SE 2-Apr 10 2345 0000 90 5 60 0945 0945 4 9.8 7.3 74% 60 0445 0445 45 1 10 0845 0845 3 4.0 3.1 77% S 0 2245 2245 60 3 75 1330 1330 4 14.8 12.5 85% 0 0500 0500 5 2 61 1345 1345 4 8.8 7.7 87% S 90 0700 0700 10 3 3 1700 1700 5 10.0 9.8 98% 0 0700 0700 5 0 0 1100 1100 5 4.0 3.9 98% S 0 0100 0100 10 6 20 1330 1330 3 12.5 12.0 96% Average 23 3:19 3:21 32 2.9 33 12:27 12:27 4.0 9.1 8.0 88% TST+nap 8.4 Rx: 8.9 Day Nap (mins) In bed Try sleep DANIEL (mins) #Wake WASO (mins) Awake Out of bed Quality TIB TST SE 0 0515 0515 60 4 15 1300 1300 2 7.8 6.5 84% 120 0430 0430 2 1 1 0730 0730 5 3.0 3.0 98% 0 2000 2000 10 3 5 0100 0100 3 5.0 4.8 95% 0 0700 0700 10 2 5 1300 1315 3 6.3 5.8 92% 120 0000 0020 60 3 15 0430 0430 3 4.2 2.9 70% 180 2230 2245 15 4 10 0515 0515 4 6.5 6.1 94% 0 0045 0100 60 2 5 0830 0830 4 7.5 6.4 86% Average 60 1:42 1:50 31 2.7 8 7:32 7:34 3.4 5.7 5.1 88% TST+nap 6.1 Rx: 6.6 Day Nap (mins) In bed Try sleep DANIEL (mins) #Wake WASO (mins) Awake Out of bed Quality TIB TST SE 180 1920 1920 10 3 90 0940 0940 4 14.3 12.7 88% S 0 0124 0131 60 4 60 1200 1200 4 10.5 8.5 81% 0 0650 0700 80 0 0 1140 1140 1 4.7 3.3 71% Average 60 1:11 1:17 50 2.3 50 11:06 11:06 3.0 9.8 8.2 83% TST+nap 9.2 Rx: 9.7 Extreme night to night variability in sleep logs noted despite relatively good average TST of 8 hours and sleep efficiency around 80-90% Collaboratively developed goals to work on consistent waketime no later than 10am (ideal eventual goal of 6am) and avoiding exercise in late evening which can further delay sleep onset . DIAGNOSIS: Chronic Insomnia comorbid with mental health difficulties R/O Circadian rhythm disorder - delayed phase Schizoaffective Disorder GOALS/OBJECTIVES/INTERVENTIONS: 1. Pt was provided the following handouts from today's class ? Sleep Psychoeducation ? Sleep Hygiene AND Stimulus Control ? Sleep Diaries 2. All participants were encouraged to implement Sleep Hygiene AND Stimulus Control techniques, as well as track their sleep via Sleep Diaries 3. Pt is scheduled for follow-up with [facility] provider who completed initial evaluation for remaining sessions of CBT-I 4. Consistent waketime no later than 10am, avoid exercise after 10pm Gabriela Calzada PSYD Psychologist [employer] Evaluation + Plan note 08-29-2021 Laboratory Note Date & Type Note Facility 08-29-2021 Evaluation + Plan note Future Scheduled TestsBasic Metabolic Panel 08/29/21Basic Metabolic Panel 09/26/21Basic Metabolic Panel 10/24/21Basic Metabolic Panel 11/21/21Complete Blood Count 11/20/21Complete Blood Count 01/06/21Lipid Profile 11/20/21Lipid Profile 01/06/21Complete Metabolic Panel 11/20/21Complete Metabolic Panel 01/06/21 [facility] Evaluation + Plan note 01-06-2021 Laboratory Note Date & Type Note Facility 01-06-2021 Evaluation + Plan note Future Scheduled TestsBasic Metabolic Panel 08/29/21Basic Metabolic Panel 09/26/21Basic Metabolic Panel 10/24/21Basic Metabolic Panel 11/21/21Complete Blood Count 11/20/21Complete Blood Count 01/06/21Lipid Profile 11/20/21Lipid Profile 01/06/21Complete Metabolic Panel 11/20/21Complete Metabolic Panel 01/06/21 [facility] Hospital course Narrative Note Date & Type Note Facility Hospital course Narrative No data available for this section [facility] Hospital Discharge instructions Note Date & Type Note Facility Hospital Discharge instructions No data available for this section [facility] Summary Purpose Family History No Family History Records FoundNo Family History Records FoundNo Family History Records Found Advance Directives No Advanced Directives Records FoundNo Advanced Directives Records FoundNo Advanced Directives Records Found Additional Source Comments (unrecognized sect ion and content) No Status Records FoundNo Status Records FoundNo Status Records Found INFORMATION SOURCE (unrecogn ized section and content) DATE CREATED AUTHOR AUTHOR'S ORGANIZ ATION 06/08/2022 [facility] DATE CREATED AUTHOR AUTHOR'S ORGANIZ ATION 10/10/2023 [facility] FOR RECORDS PERTAINING TO PATIENTS WHO ARE OR HAVE BEEN ENROLLED IN A CHEMICAL DEPENDENCY/SUBSTANCEABUSE PROGRAM, SOME INFORMATION MAY BE OMITTED. This clinical summary was aggregated from multiple sources. Caution should be exercised in using it in the provision of clinical care. This summary normalizes information from multiple sources, and as a consequence, information in this document may materially change the coding, format and clinical context of patient data. In addition, data may be omitted in some cases. CLINICAL DECISIONS SHOULD BE BASED ON THE PRIMARY CLINICAL RECORDS. [employer] provides no warranty or guarantee of the accuracy or completeness of information in this document.
== END | disposition home or self-care (01) ==
LOC: LAB 14:32
PROVIDERS: PCP Internal Medicine; Referring Provider Internal Medicine; Visit Provider Internal Medicine
DX: E55.9 Vitamin D deficiency, unspecified (principal); I25.118 Atherosclerotic heart disease of native coronary artery with other forms of angina pectoris; E11.9 Type 2 diabetes mellitus without complications; H61.23 Impacted cerumen, bilateral; L30.1 Dyshidrosis [pompholyx]; R79.89 Other specified abnormal findings of blood chemistry; E78.5 Hyperlipidemia, unspecified; K21.9 Gastro-esophageal reflux disease without esophagitis; I10 Essential (primary) hypertension
CPT/HCPCS: 36415; 80053; 80061; 82306; 83036; 83525; 84443; 85025

== ENCOUNTER 2024-01-07 14:00 | Outpatient (RCR) | payer MEDICARE, SELFPAY | END 2024-01-27 23:59 | LOC: NS 14:00 | PROVIDERS: PCP Internal Medicine; Referring Provider Nurse Practitioner Family; Visit Provider Nurse Practitioner Family | DX: Z71.3 Dietary counseling and surveillance (principal); E11.9 Type 2 diabetes mellitus without complications | CPT/HCPCS: 97803 ==

== ENCOUNTER 2024-02-19 02:24 | Emergency (ER) | payer MEDICARE, SELFPAY ==
[2024-02-19 02:25] VITALS: BP 138/72; PULSE 60; RESP 17; TEMP 35.9; O2SAT 97; BMI 33.9
--- NOTE | 2024-02-19 02:47 | EKG12_ITS ---
Test Reason : CP Blood Pressure : / mmHG Vent. Rate : 063 BPM Atrial Rate : 063 BPM P-R Int : 168 ms QRS Dur : 100 ms QT Int : 414 ms P-R-T Axes : 053 068 050 degrees QTc Int : 423 ms Normal sinus rhythm Normal ECG Confirmed by JOVANNI OMALLEY, TERRENCE ([id number]), news editor CLAUDIO SHOEMAKER ([id number]) on 02/25/2024 1:32:45 PM Referred By: ZAC Confirmed By:JAIRO BAIG MD
--- NOTE | 2024-02-19 02:47 | RAD_ITS ---
INDICATION: chest pain EXAMINATION/TECHNIQUE: X-RAY - XR Chest 2 Views COMPARISON: None. FINDINGS: LINES/DEVICES: None. LUNGS: No pulmonary edema or focal airspace consolidation. No sizable pleural effusion. No pneumothorax detected. Mildly elevated right hemidiaphragm. MEDIASTINUM AND CARDIOVASCULAR STRUCTURES: Heart size within normal limits. Mediastinal contours unremarkable. BONES AND SOFT TISSUES: Degenerative changes along spine. RAD/Chest PA and Lateral IMPRESSION: No radiographic evidence of acute cardiopulmonary disease. Electronically Signed: Osiel Faust MD at 5:33 EDT ,
[2024-02-19 03:07] LABS: Absolute Lymphocyte Count 1.66 X10^3/uL (0.83-4.51); Absolute Neutrophil Count 5.3 X10^3/uL (2.0-7.7); Basophil# 0.05 X10^3/uL; Basophil% 0.6 % (0-1); Eosinophil# 0.29 X10^3/uL; Eosinophils% 3.7 % (0-5); Hemoglobin 13.1 g/dL (13.0-16.5); Lymphocyte # 1.66 X10^3/ul (0.83-4.51); Lymphocyte % 21.1 % (19-41); Mean Corp Hgb Conc 33.6 g/dL (32-36); Mean Corpuscular Hgb 30.3 pg (27.0-32.0); Mean Corpuscular Volume 90.3 fL (80-94); Mean Platelet Vol. 9.7 fl (6.2-12.0); Monocyte# 0.58 X10^3/uL; Monocyte% 7.4 % (0-10); NRBC Flagged by Analyzer 0 % (0-5); Neutrophil # 5.28 X10^3/uL (2.7-7.7); Neutrophil % 66.9 % (47-70); Platelet Count 202 K/mm3 (150-450); RBC Distribution Width CV 13.5 % (11.6-14.6); RBC Distribution Width SD 44.1 fl (35.1-43.9); Red Blood Count 4.32 M/mm3 (4.6-6.2); White Blood Count 7.9 K/mm3 (4.4-11.0)
[2024-02-19 03:24] VITALS: BP 133/67; PULSE 67; RESP 18; O2SAT 96
[2024-02-19 03:35] LABS: AST(SGOT) 102 U/L (15-37); Alanine Aminotransfer ALT/SGPT 89 U/L (16-61); Albumin, Serum 3.9 g/dL (3.2-5.0); Alkaline Phosphatase 143 U/L (45-117); Anion Gap 6 (5-15); BUN 28 mg/dL (7-18); BUN/Creat Ratio 23.1 RATIO (10-20); Bilirubin, Direct 0.34 mg/dL (0.00-0.30); Calcium,Total 9.2 mg/dL (8.5-10.1); Chloride 106 mmol/L (98-107); Creatinine, Serum 1.21 mg/dL (0.70-1.30); EST Glomerular Filtration Rate 65 mL/min (>60); Est Glom Filt Rate - Afr Amer 78 mL/min (>60); Estimated Creatinine Clearance 85.76 ml/min; Globulin 3.2 g/dL (2.2-4.2); Glucose 142 mg/dL (74-106); Lipase 31 U/L (13-75); Magnesium 2.5 mg/dL (1.6-2.6); Potassium 3.7 mmol/L (3.5-5.1); Protein, Total 7.1 g/dL (6.4-8.2); Sodium Level 138 mmol/L (136-145); Troponin-I HS 4 pg/mL (3.0-78.0)
--- NOTE | 2024-02-19 03:50 | CT_ITS ---
INDICATION: abd pain / ? Biliary colic EXAMINATION: CT Abdomen And Pelvis W/ Contrast Injection TECHNIQUE: Helically acquired images were obtained of the abdomen and pelvis following IV contrast. 2-D reconstructions reviewed. A radiation dose optimization technique was used for this scan. IV Contrast dosage and agent: 100 cc Isovue-300 Oral contrast: None. COMPARISON: None. FINDINGS: LOWER CHEST: No acute findings within the imaged lung bases. Heart size within normal limits. LIVER: Enlarged liver measures 19 cm craniocaudal length. No discrete mass. GALLBLADDER AND BILIARY TREE: No calcified gallstones identified. No gallbladder wall edema demonstrated. No significant biliary ductal dilation. PANCREAS: Fatty infiltration with no discrete mass or peripancreatic edema. SPLEEN: Borderline enlarged spleen measuring 13 cm craniocaudal length. No discrete mass. ADRENAL GLANDS: Unremarkable. KIDNEYS AND URETERS: Normal renal size and position. No perinephric edema or hydronephrosis. No concerning lesion. Subcentimeter low-attenuation right renal cyst requiring no additional follow-up at this time. PERITONEUM: No significant free fluid. No peritoneal free air detected. RETROPERITONEUM: No retroperitoneal mass or pathologic fluid collection. BOWEL: No evidence of acute appendicitis. No bowel obstruction or significant bowel thickening. No focal inflammatory change. LYMPH NODES: No enlarged mesenteric or retroperitoneal lymph nodes. VESSELS: Mild atherosclerosis with no abdominal aortic aneurysm. URINARY BLADDER: 4 mm calcified stone lying within bladder lumen adjacent to right ureterovesical junction. No bladder wall thickening or edema. REPRODUCTIVE ORGANS: No pelvic masses. ABDOMINAL WALL: No acute findings or significant hernia defect. BONES: Mild degenerative changes along spine. CT/Abdomen/Pelvis W IV Cont ONLY IMPRESSION: 1. 4 mm urinary bladder stone with no obstructive uropathy or perinephric edema. 2. Hepatomegaly and borderline splenomegaly. 3. Other nonurgent findings within body of report. Electronically Signed: Osiel Faust MD at 5:31 EDT ,
[2024-02-19] MEDS: 0.9% Normal Saline (500mL Bag) 500 ML 999 ML IV (04:11)
[2024-02-19 04:35] VITALS: BP 146/71; PULSE 76; RESP 18; O2SAT 97
[2024-02-19 05:00] VITALS: BP 136/74; PULSE 65; RESP 17; O2SAT 98
[2024-02-19 05:00] LABS: Troponin-I HS 4 pg/mL (3.0-78.0)
[2024-02-19 06:00] VITALS: BP 138/72; PULSE 64; RESP 17; TEMP 36.6; O2SAT 99
--- NOTE | 2024-02-19 06:02 | EX.ED.DYSGE1 ---
HPI History of Present Illness Chief Complaint: Chest Pain Informant: patient and spouse/S.O. Narrative Narrative: Patient is a 63-year-old male with past medical history of CAD/non-STEMI as well as hypertension hyperlipidemia and type 2 diabetes. He states he works second shift does not typically go to bed until after 2 AM. He states he got home from work and sat down and had an omelette and a nutritional shake and then 30 minutes to an hour later as he was getting ready for bed felt pain in the right upper abdomen/lower chest that radiated towards midline. He states he was nauseous secondary to the pain and that concern he may be having another heart attack' and therefore came to the hospital for evaluation. Patient states upon arrival to the hospital his symptoms have spontaneously improved. [facility] Medical History Anemia Anxiety and depression Atherosclerotic heart disease of [place] coronary artery with other forms of angina pectoris Bone fracture Depression Essential hypertension Fatigue GERD (gastroesophageal reflux disease) Gout History of alcohol abuse History of non-ST elevation myocardial infarction (NSTEMI) (07/26/20) History of sarcoidosis Hyperlipemia Hypoglycemia Liver disease Myocardial infarct Nausea Pancreatitis Schizoaffective disorder Secondary pulmonary arterial hypertension Type 2 diabetes mellitus Urinary hesitancy Home Medications aspirin 81 mg tablet,delayed release 81 mg PO DAILY #90 tabs 12/21/20 [Rx Last Taken 11/02/21] needle (disp) 18 G 18 gauge x 1 (BD Regular Bevel [place]) #100 ea 05/22/22 [Rx Last Taken Unknown] mirtazapine 30 mg tablet 30 mg PO DAILY 11/09/22 [History Last Taken Unknown] testosterone cypionate 200 mg/mL intramuscular oil 100 mg (0.5 mL) IM Q2W #5 mL 09/30/23 [Rx Last Taken Unknown] carvedilol 25 mg tablet See Rx Instructions .Route .COMPLEX #180 tabs 10/16/23 [Rx Last Taken Unknown] betamethasone dipropionate 0.05 % topical cream 1 applic topical BID PRN rash 10 days #15 grams 11/07/23 [Rx Last Taken Unknown] empagliflozin 25 mg tablet (Jardiance) 25 mg PO DAILY #90 tabs 11/15/23 [Rx Last Taken Unknown] fluoxetine 10 mg capsule 40 mg PO DAILY 01/03/24 [History Last Taken Unknown] nitroglycerin 0.4 mg sublingual tablet (Nitrostat) 0.4 mg sublingual Q5-15M PRN chest pain #25 tabs 01/11/24 [Rx Last Taken Unknown] atorvastatin 40 mg tablet 40 mg PO QHS 90 days #90 tabs 01/14/24 [Rx Last Taken Unknown] metformin 500 mg tablet,extended release 24 hr 1,000 mg (2 x 500 mg) PO BID #360 tabs 01/14/24 [Rx Last Taken Unknown] blood-glucose sensor (Dexcom G6 Sensor device) #3 ea 01/17/24 [Rx Last Taken Unknown] blood-glucose transmitter (Dexcom G6 Transmitter device) #1 ea 01/17/24 [Rx Last Taken Unknown] omeprazole 20 mg capsule,delayed release 20 mg PO DAILY #90 caps 01/28/24 [Rx Last Taken Unknown] syringe with needle, safety 3 mL 23 gauge x 1 (Monoject Safety Syringes) #50 ea 01/28/24 [Rx Last Taken Unknown] flash glucose scanning reader (bCommunitiesStyle Jean 2 [place]) #1 ea 02/05/24 [Rx Last Taken Unknown] flash glucose sensor (FreeStyle Jean 2 Sensor kit) #1 ea 02/05/24 [Rx Last Taken Unknown] isosorbide mononitrate 30 mg tablet,extended release 24 hr 30 mg PO BID #180 tabs 02/11/24 [Rx Last Taken Unknown] Allergy/AdvReac Type Severity Reaction Status Date / Time Penicillins [PCN] Allergy Other Verified 02/19/24 02:28 lisinopril AdvReac cough Verified 02/19/24 02:28 spironolactone AdvReac elevated Verified 02/19/24 02:28 blood sugar Family History Other CVA (cerebral vascular accident) Cancer Depression with anxiety Diabetes FH: mental illness Hyperlipemia Hypertension Osteoporosis Surgical History History of amputation of finger History of cataract surgery History of coronary artery stent placement (07/26/20) History of left heart catheterization (11/02/21) History of placement of ear tubes History of tonsillectomy Social History Smoking Status: Former smoker quit date: 10/29/05 Tobacco: How many years used: 15 alcohol intake: former year quit: 2014 substance use type: does not use caffeine: Yes Type: carbonated beverages and coffee what type of physical activity do you participate in: walking ROS ROS ED Constitutional Constitutional ED: Denies chills or fever(s) Eyes Eyes: Denies change in vision ENT ENT ED: Denies sore throat Cardiovascular Cardiovascular: Reports chest pain; Denies palpitations or racing heartbeat Respiratory/Chest Respiratory/Chest: Denies cough or dyspnea Gastrointestinal Gastrointestinal: Reports abdominal pain and nausea; Denies diarrhea or vomiting Genitourinary Genitourinary ED: Denies dysuria or hematuria Musculoskeletal Musculoskeletal: Denies back pain or myalgias Integumentary Denies rash Neurologic Neurologic: Denies headache(s) Hematologic/Lymphatic Hematologic/Lymphatic: Denies easy bleeding or easy bruising EXAM Physical Exam Const Vital Signs: 02/19/24 02:25 02/19/24 02:29 02/19/24 03:24 Temperature 96.6 F L Temperature Source Temporal Pulse Rate 60 67 Respiratory Rate 17 18 Respiratory Effort Normal Non-Labored Blood Pressure 138/72 H 133/67 H Blood Pressure Mean 94 89 Pulse Ox 97 96 Oxygen Delivery Method Room Air Room Air 02/19/24 04:35 02/19/24 05:00 02/19/24 06:00 Temperature Temperature Source Pulse Rate 76 65 64 Respiratory Rate 18 17 17 Respiratory Effort Blood Pressure 146/71 H 136/74 H 138/72 H Blood Pressure Mean 96 94 94 Pulse Ox 97 98 99 Oxygen Delivery Method Room Air Room Air 02/19/24 06:00 Temperature 98 F Temperature Source Pulse Rate 64 Respiratory Rate 17 Respiratory Effort Blood Pressure 138/72 H Blood Pressure Mean 94 Pulse Ox 99 Oxygen Delivery Method Positive well nourished, well developed and obese General Appearance ED: well developed; Negative for pallor Nutritional Appearance: obese HEENT HEENT Narrative: Normocephalic atraumatic Eyes PERRL and EOMs intact bilaterally General Eye ED: Negative for scleral icterus Neck supple Neck Narrative: No nuchal rigidity or meningeal signs Chest Wall palpation of chest normal Chest Narrative: No bony deformity or crepitance noted No reproducible pain with palpation Resp normal respiratory effort and clear to auscultation bilaterally Cardio regular rate and regular rhythm Rate: other Other Details: Heart is regular rate and rhythm without murmurs rubs or gallops Radial and carotid pulses are equal and symmetric GI non-distended and no masses GI Narrative: Abdomen is soft and nondistended with normal active bowel sounds. Patient has mild pain with palpation in the midepigastric and right upper quadrant region. However no voluntary guarding or rigidity. Negative Baker sign No pulsatile mass Auscultation: normoactive bowel sounds Palpation: soft Back/Spine no CVA tenderness Extremity normal to inspection Extremity Narrative: No asymmetric edema no pitting edema negative Homans' sign bilaterally Neuro oriented x3, CN's II-XII intact bilaterally and no sensory deficits noted Sensorium / Orientation: alert Motor Exam: strength 5/5 throughout Psych Psych Narrative: Patient has a flat affect Skin no rashes or lesions noted, no wounds and skin turgor normal General Skin Exam: Negative for jaundice or pallor MDM MDM MDM Narrative Medical decision making narrative: Patient arrived to the ER slightly hypertensive otherwise with stable vitals. He reported sudden onset of pain which she described as more in the upper abdomen/lower chest after eating and then had spontaneous resolution upon arrival. Differential diagnosis is for biliary colic versus acute cholecystitis versus pancreatitis versus acute coronary syndrome versus lung pathology such as pneumonia or pneumothorax. Secondary to his basic labs and a chest x-ray were obtained. Labs revealed elevation of his liver enzymes that are above his baseline values. Secondary to this a CT of the abdomen pelvis was obtained to check for potential gallstone or acute cholecystitis. The patient's chest x-ray revealed no acute lung pathology and his EKG was sinus rhythm. His initial and delta troponin were normal at 4 indicating no signs of acute coronary syndrome. The patient CT scan revealed no signs of gallstone or gallbladder infection but did note a stone within the urinary bladder. It is possible that the patient's sudden onset of pain was related to a kidney stone that he was passing and atypically presented with. At this time he does not have findings concerning for infection and he has no signs of acute kidney injury. Therefore as acute coronary syndrome has been ruled out and there are no signs of acute cholecystitis or pancreatitis on CT scan or laboratory studies and the patient's stone is already in the bladder which indicates he should have no difficulty passing at the rest of the way I do not feel there is need for further inpatient evaluation and is otherwise safe for discharge History & Record Review Discussion w/independent historian: Patient and Significant other Lab Data Attestation: I reviewed the patient's lab results. Labs: Laboratory Results - last 24 hr 02/19/24 02/19/24 02:31 04:28 WBC 7.9 RBC 4.32 L Hgb 13.1 Hct 39.0 L MCV 90.3 MCH 30.3 MCHC 33.6 RDW Std Deviation 44.1 H RDW Coeff of Etta 13.5 Plt Count 202 MPV 9.7 Immature Gran % (Auto) 0.300 Neut % (Auto) 66.9 Lymph % (Auto) 21.1 Lynn % (Auto) 7.4 Eos % (Auto) 3.7 Baso % (Auto) 0.6 Absolute Neuts (auto) 5.3 Absolute Lymphs (auto) 1.66 Nucleated RBC % 0 Sodium 138 Potassium 3.7 Chloride 106 Carbon Dioxide 26.0 Anion Gap 6 BUN 28 H Creatinine 1.21 Estim Creat Clear Calc 85.76 Est GFR (MDRD) Af Amer 78 Est GFR (MDRD) Non-Af 65 BUN/Creatinine Ratio 23.1 H Glucose 142 H Calcium 9.2 Magnesium 2.5 Total Bilirubin 0.80 Direct Bilirubin 0.34 H AST 102 H ALT 89 H Alkaline Phosphatase 143 H Troponin I High Sens 4 4 Total Protein 7.1 Albumin 3.9 Globulin 3.2 Lipase 31 Radiography Diagnostic Testing: Clinical Impression(s) from Imaging Studies Chest X-Ray 02/19/24 02:47 IMPRESSION: No radiographic evidence of acute cardiopulmonary disease. Electronically Signed: Osiel Faust MD at 5:33 EDT , Abdomen/Pelvis CT 02/19/24 03:50 IMPRESSION: 1. 4 mm urinary bladder stone with no obstructive uropathy or perinephric edema. 2. Hepatomegaly and borderline splenomegaly. 3. Other nonurgent findings within body of report. Electronically Signed: Osiel Faust MD at 5:31 EDT , Chest x-ray as interpreted by the emergency medicine physician reveals no acute infiltrate pneumothorax pleural effusion or widening of the mediastinum Discharge Plan Triage Chief Complaint: Chest Pain ED Provider: Bridger Han Dx/Rx/DC Orders Clinical Impression: Kidney stone, Elevated liver enzymes, Type 2 diabetes mellitus, Coronary artery disease, Essential hypertension Instructions: Understanding Kidney Stones, ED Abdominal Pain Gallstone Poss Prescriptions: No Action mirtazapine 30 mg tablet 30 mg PO DAILY fluoxetine 10 mg capsule 40 mg PO DAILY betamethasone dipropionate 0.05 % cream 1 applic topical BID PRN (Reason: rash) 10 Days Qty: 15 1RF aspirin 81 mg tablet,delayed release (DR/EC) 81 mg PO DAILY Qty: 90 1RF (DME) needle (disp) 18 G [BD Regular Bevel [place]] 18 gauge x 1 needle See Rx Instructions .Route Qty: 100 0RF Rx Instructions: As directed testosterone cypionate 200 mg/mL oil 100 mg IM Q2W Qty: 5 5RF Rx Instructions: PLEASE dispense as five 1ml vials carvedilol 25 mg tablet See Rx Instructions .ROUTE .COMPLEX Qty: 180 3RF Dose Instruction: TAKE 1 TABLET TWICE A DAY Rx Instructions: TAKE 1 TABLET TWICE A DAY Jardiance 25 mg tablet 25 mg PO DAILY Qty: 90 1RF nitroglycerin [Nitrostat] 0.4 mg tablet, sublingual 0.4 mg sublingual Q5-15M PRN (Reason: chest pain) Qty: 25 3RF Rx Instructions: do not exceed 3 doses per episode atorvastatin 40 mg tablet 40 mg PO QHS 90 Days Qty: 90 3RF metformin 500 mg tablet extended release 24 hr 1,000 mg PO BID Qty: 360 3RF (DME) Dexcom G6 Sensor Device See Rx Instructions .Route Qty: 3 5RF Rx Instructions: As directed (DME) Dexcom G6 Transmitter Device See Rx Instructions .Route Qty: 1 0RF Rx Instructions: As directed (DME) Monoject Safety Syringes 3 mL 23 gauge x 1 syringe See Rx Instructions .Route Qty: 50 1RF Rx Instructions: As directed omeprazole 20 mg capsule,delayed release(DR/EC) 20 mg PO DAILY Qty: 90 1RF (DME) FreeStyle Jean 2 Sensor Kit See Rx Instructions .Route Qty: 1 11RF Rx Instructions: As directed (DME) FreeStyle Jean 2 [place] Misc See Rx Instructions .Route Qty: 1 1RF Rx Instructions: As directed isosorbide mononitrate 30 mg tablet extended release 24 hr 30 mg PO BID Qty: 180 3RF Primary Care Provider: Caryl Turner Referrals: Caryl Turner MD [Primary Care Provider] - Activity Restrictions/Additional Instructions: You had elevated liver enzymes today from your baseline and your history and exam is concerning for potential biliary colic or gallstones causing the symptoms. Talk to your family doctor about a outpatient gallbladder ultrasound and/or HIDA scan to assess for this. The CT scan showed a stone in your bladder. This most likely came from the kidney and could also be the cause of the pain you are experiencing. You will pass this stone spontaneously. Please return to the ER should you have any further concerns or worsening of symptoms Disposition Disposition: Home, Self Care Discharge Date/Time: 02/19/24 06:13
== END 2024-02-19 06:13 | disposition home or self-care (01) ==
PROVIDERS: Emergency Provider Emergency Medicine; PCP Internal Medicine; Visit Provider Emergency Medicine
DX: N20.0 Calculus of kidney (principal); E11.9 Type 2 diabetes mellitus without complications; R74.8 Abnormal levels of other serum enzymes; I10 Essential (primary) hypertension; I25.10 Atherosclerotic heart disease of native coronary artery without angina pectoris; I25.2 Old myocardial infarction; F41.9 Anxiety disorder, unspecified; F32.A Depression, unspecified; E66.9 Obesity, unspecified; Z79.82 Long term (current) use of aspirin; Z79.899 Other long term (current) drug therapy; Z79.84 Long term (current) use of oral hypoglycemic drugs; Z87.891 Personal history of nicotine dependence; Z95.5 Presence of coronary angioplasty implant and graft
CPT/HCPCS: 71046; 74177; 80048; 80076; 83690; 83735; 84484; 85025; 93005; 96360; 96361; 99282; J7030; Q9967; A4216

== ENCOUNTER → 2024-03-20 | Outpatient (CLI) | payer MEDICARE, SELFPAY ==
--- NOTE | 2024-03-20 13:07 | NM_ITS ---
CLINICAL: 63-year-old male with history of abdominal pain. RADIONUCLIDE HEPATOBILIARY SCINTIGRAPHY COMPARISON: CT of the abdomen-pelvis report 02/19/2024 FINDINGS: Following the intravenous administration of 5.3 mCi of 99m Tc Mebrofenin, hepatobiliary images reveal: 1. Relatively prompt and homogeneous radiopharmaceutical concentration is noted by a normal sized liver. No parenchymal defects are identified. 2. Gallbladder activity is not identified during 60 minutes of sequential image acquisition. Gallbladder is identified at 90 minutes post tracer injection. 3. Small intestinal tract is observed at 30 minutes post radiopharmaceutical administration. 4. Washout of the radiopharmaceutical by the hepatic parenchyma appears qualitatively normal. Cholecystokinin (0.02 ug/kg) was administered intravenously over a 30-minute period at 95 minutes post radiopharmaceutical provision. The post CCK gallbladder ejection fraction calculated at 20 minutes following Cholecystokinin administration was noted to be 91.0 % (normal greater than 35%). During 30 minutes of post CCK imaging, there is no scintigraphic evidence of reflux of the radiotracer into the common hepatic duct or refilling of the gallbladder. NM/Hepatobilliary Img w/Pharm Int IMPRESSION: 1. A gallbladder ejection fraction calculated to be greater than 35% following the administration of Cholecystokinin makes the probability of functional hepatobiliary disease (gallbladder and/or sphincter of Oddi dyskinesia) and/or organic hepatobiliary disease (chronic acalculous cholecystitis and/or cystic duct syndrome) to be low. (Lucas Shane et al, Journal of Nuclear Medicine 32:1695, 1991). 2. Delayed gallbladder visualization (90 minutes post radiopharmaceutical injection) may represent a component of chronic cholecystitis with maintained hepatobiliary functionality as defined above. Electronically Signed: García Trotter DO at 10:36 EDT ,
== END | disposition home or self-care (01) ==
LOC: US 13:06 → NM 13:12
PROVIDERS: PCP Internal Medicine; Referring Provider Internal Medicine; Visit Provider Internal Medicine
DX: R74.8 Abnormal levels of other serum enzymes (principal); K80.50 Calculus of bile duct without cholangitis or cholecystitis without obstruction
CPT/HCPCS: 78227; A9537; J2805

== ENCOUNTER → 2024-04-25 | Outpatient (CLI) | payer MEDICARE, SELFPAY ==
--- NOTE | 2024-04-25 09:45 | US_ITS ---
HISTORY: Abdominal pain, biliary colic. TECHNIQUE: Edwards scale and color doppler imaging was performed of the right upper quadrant. 83 images. COMPARISON: CT 02/19/2024. FINDINGS: LIVER: 17.1 cm in length. Homogeneous echotexture without focal lesion demonstrated. No intrahepatic ductal dilatation. MAIN PORTAL VEIN: Patent with hepatopedal flow. COMMON BILE DUCT: 5 mm in diameter. GALLBLADDER: Multiple small echogenic foci and calcified material along the distended gallbladder wall. 4 mm wall thickness with increased vascularity. No pericholecystic fluid. Sonographic Baker sign negative. PANCREAS: Visualized proximal portion unremarkable. RIGHT KIDNEY: 11.7 cm in length. No hydronephrosis or gross renal mass demonstrated. US/Abdomen Limited IMPRESSION: Cholelithiasis and biliary sludge with mild gallbladder wall thickening, raising the possibility of acute cholecystitis in the appropriate clinical setting. Electronically Signed: Michelle Ham MD at 10:42 EDT ,
== END | disposition home or self-care (01) ==
PROVIDERS: PCP Internal Medicine; Referring Provider Internal Medicine; Visit Provider Internal Medicine
DX: R74.8 Abnormal levels of other serum enzymes (principal); K80.50 Calculus of bile duct without cholangitis or cholecystitis without obstruction
CPT/HCPCS: 76705

== ENCOUNTER → 2024-04-29 | Outpatient (CLI) | payer MEDICARE, SELFPAY ==
--- NOTE | 2024-04-29 18:43 | STRESSREP_ITS ---
Stress Test Report Exercise myocardial perfusion stress test. 64-year-old man with a history of chest pain Stress protocol: Resting EKG demonstrates normal sinus rhythm with a rate of 65 bpm resting blood pressure is 150/90 mmHg. The patient exercised according to the regular Evaristo protocol for a total duration of 6 minutes and 15 seconds attaining a maximum heart rate of 141 bpm which was 89% of maximum predicted heart rate; the maximum workload was 7.7 metabolic equivalents. At rest there were no ST or T wave changes noted to suggest ischemia and at peak exercise upsloping ST changes only were noted which did not meet the criteria for ischemia. No clinical angina was noted the test was terminated due to the target heart rate being achieved/fatigu e. The peak blood pressure was 230/98 mmHg. Rate-pressure product was 26,000. Hypertensive response to exercise was noted with patient developing moderate dyspnea. Myocardial perfusion protocol. 14.8 mCi of technetium 99m sestamibi was injected at rest. The patient exercised according to regular Evaristo protocol for total duration of 6 minutes and 15 seconds and at peak exercise 44.4 mCi of technetium 99m sestamibi was injected stress images were obtained stress and rest images were reconstructed in comparing the short axis vertical long and horizontal long axis. Gated images were also obtained. Perfusion SPECT analysis: Review of the stress images demonstrate normal uptake of tracer noted in all areas of the myocardium. The resting images similarly demonstrate normal uptake of tracer noted in all areas of the myocardium. No areas of reversibility are noted to suggest ischemia no previous infarct was noted. Gated SPECT analysis: The gated ejection fraction is 59%. Conclusion: Normal exercise myocardial perfusion stress test at a moderate workload Preserved ejection fraction. Hypertensive response to exercise
== END | disposition home or self-care (01) ==
PROVIDERS: PCP Internal Medicine; Referring Provider Nurse Practitioner Family; Visit Provider Nurse Practitioner Family
DX: R07.9 Chest pain, unspecified (principal); E11.9 Type 2 diabetes mellitus without complications; I25.118 Atherosclerotic heart disease of native coronary artery with other forms of angina pectoris; I25.2 Old myocardial infarction; I10 Essential (primary) hypertension; E78.2 Mixed hyperlipidemia
CPT/HCPCS: 78452; 93017; A9500

== ENCOUNTER 2024-04-30 15:04 | Outpatient (RCR) | payer MEDICARE, SELFPAY | END 2024-05-28 23:59 | LOC: NS 15:04 | PROVIDERS: PCP Internal Medicine; Referring Provider Nurse Practitioner Family; Visit Provider Nurse Practitioner Family | DX: Z71.3 Dietary counseling and surveillance (principal); E11.9 Type 2 diabetes mellitus without complications | CPT/HCPCS: 97803 ==

== ENCOUNTER 2024-06-03 09:05 | Day surgery (SDC) | payer MEDICARE, SELFPAY ==
[2024-06-02 09:06] LABS: Hematocrit 35.6 % (40-54); Hemoglobin 12.5 g/dL (13.0-16.5); Mean Corp Hgb Conc 35.1 g/dL (32-36); Mean Corpuscular Hgb 30.7 pg (27.0-32.0); Mean Corpuscular Volume 87.5 fL (80-94); Mean Platelet Vol. 9.1 fl (6.2-12.0); Platelet Count 169 K/mm3 (150-450); RBC Distribution Width CV 13.2 % (11.6-14.6); RBC Distribution Width SD 41.6 fl (35.1-43.9); Red Blood Count 4.07 M/mm3 (4.6-6.2); White Blood Count 6.1 K/mm3 (4.4-11.0)
[2024-06-02 09:30] LABS: Anion Gap 7 (5-15); BUN 25 mg/dL (7-18); BUN/Creat Ratio 25.4 RATIO (10-20); Calcium,Total 8.6 mg/dL (8.5-10.1); Chloride 109 mmol/L (98-107); Creatinine, Serum 0.98 mg/dL (0.70-1.30); EST Glomerular Filtration Rate 82 mL/min (>60); Est Glom Filt Rate - Afr Amer 99 mL/min (>60); Glucose 238 mg/dL (74-106); Potassium 3.8 mmol/L (3.5-5.1); Sodium Level 141 mmol/L (136-145)
[2024-06-03] VITALS (16 sets, daily range): BP systolic 126–175; BP diastolic 79–100; PULSE 70–81; RESP 14–20; TEMP 36.2–36.8; O2SAT 90–98; BMI 33.4
--- NOTE | 2024-06-03 09:36 | PCM.HP.BLA ---
History and Physical Date of Admission: 06/03/24 Intake Vital Signs 02/20/2415:41 05/05/2415:46 05/09/2414:16 Height 6 ft 1 in 6 ft 1 in 6 ft 1 in Weight: 246 lb 247 lb 4 oz BMI 32.4 32.5 BP 132/77 H 116/84 H Blood Pressure Location Lt brachial Rt brachial Position Sitting Sitting Respiration 18 18 Pulse 64 68 Pulse Source Monitor Monitor Temp 97.2 F L Temp Source Temporal Pulse Oximetry (%) 96 Oxygen Delivery Method room air Intake Visit Reasons: GALLSTONES Chief Complaint: gallstones Is patient in pain?: Yes Allergies Penicillins (PCN) Allergy (Verified 05/09/24 14:17) Otherlisinopril Adverse Reaction (Verified 05/09/24 14:17) coughspironolactone Adverse Reaction (Verified 05/09/24 14:17) elevated blood sugar Medications ?Medication ?Instructions ?Recorded ?Confirmed ?Type aspirin 81 mg tablet,delayed 81 mg PO DAILY #90 tabs 12/21/20 05/09/24 Rx release needle (disp) 18 G 18 gauge x 1 #100 ea 05/22/22 05/09/24 Rx (BD Regular Bevel [place]) testosterone cypionate 200 mg/mL 100 mg (0.5 mL) IM Q2W #5 mL 09/30/23 05/09/24 Rx intramuscular oil nitroglycerin 0.4 mg sublingual 0.4 mg sublingual Q5-15M PRN chest 01/11/24 05/09/24 Rx tablet (Nitrostat) pain #25 tabs atorvastatin 40 mg tablet 40 mg PO QHS 90 days #90 tabs 01/14/24 05/09/24 Rx syringe with needle, safety 3 mL #50 ea 01/28/24 05/09/24 Rx 23 gauge x 1 (Monoject Safety Syringes) flash glucose scanning reader #1 ea 02/05/24 05/09/24 Rx (FreeStyle Jean 2 [place]) flash glucose sensor (FreeStyle #1 ea 02/05/24 05/09/24 Rx Jean 2 Sensor kit) semaglutide 0.25 mg or 0.5 mg (2 0.5 mg (0.736 mL) subcut QWEEK #3 04/10/24 05/09/24 Rx mg/3 mL) subcutaneous pen injector mL (Ozempic) amlodipine 5 mg tablet 5 mg PO DAILY #90 tabs 05/05/24 05/09/24 Rx carvedilol 25 mg tablet 25 mg PO BID #180 tabs 05/05/24 05/09/24 Rx cholecalciferol (vitamin D3) 125 5,000 unit PO DAILY 05/05/24 05/09/24 History mcg (5,000 unit) tablet (Vitamin D3) coenzyme Q10 100 mg capsule 100 mg PO DAILY because I'm taking 05/05/24 05/09/24 History (CoQ-10) a statin ferrous sulfate 325 mg (65 mg 325 mg PO DAILY 05/05/24 05/09/24 History iron) tablet (FeroSul) fluoxetine 40 mg capsule 80 mg PO DAILY 05/05/24 05/09/24 History isosorbide mononitrate 30 mg 60 mg PO BID 05/05/24 05/09/24 History tablet,extended release 24 hr metformin 500 mg tablet,extended 1,000 mg PO DAILY 05/05/24 05/09/24 History release 24 hr quetiapine 25 mg tablet 25 mg PO QHS 05/05/24 05/09/24 History trifluoperazine 2 mg tablet 2 mg PO DAILY For nervous tics. 05/05/24 05/09/24 History Have you fallen in the past year?: No [facility] Medical History History of sarcoidosis Depression Myocardial infarct Pancreatitis Secondary pulmonary arterial hypertension Atherosclerotic heart disease of [place] coronary artery with other forms of angina pectoris History of non-ST elevation myocardial infarction (NSTEMI) (07/26/20) Essential hypertension Type 2 diabetes mellitus Nausea Fatigue Urinary hesitancy Liver disease Hypoglycemia Hyperlipemia Gout GERD (gastroesophageal reflux disease) Anxiety and depression Bone fracture Anemia History of alcohol abuse Schizoaffective disorder Surgical History History of left heart catheterization (11/02/21) History of coronary artery stent placement (07/26/20) History of cataract surgery History of placement of ear tubes History of tonsillectomy History of amputation of finger Family History Other CVA (cerebral vascular accident) Cancer Depression with anxiety Diabetes FH: mental illness Hyperlipemia Hypertension Osteoporosis Social History Smoking Status: Former smoker quit date: 10/29/05 Tobacco: How many years used: 15 alcohol intake: former year quit: 2014 substance use type: does not use caffeine: Yes Type: carbonated beverages and coffee what type of physical activity do you participate in: walking HPI HPI HPI: Patient is a 64-year-old male here for gallstones. He has been having right upper quadrant pain and nausea and vomiting x 2 episodes. On a normal basis he does not have pain. He went to the emergency room for 1 of these episodes of pain and had an ultrasound that showed cholelithiasis as well as sludge and possible thickening. He subsequently went and had a stress test. ROS General General: Yes fatigue; No weight change, appetite, colon cancer, breast cancer or weakness HEENT HEENT: Yes eye injury and eye surgery; No difficulty swallowing, swollen glands or hoarseness Endo Endocrine: Yes diabetes mellitus; No thyroid disease, thyroid cancer, Hair loss, heat intolerance or cold intolerance Skin Skin: No rash or changing moles Musc Musculoskeletal: Yes back problems; No arthritis, rheumatoid arthritis, gout or joint pain Cardio Cardiovascular: Yes heart disease, high blood pressure, heart attack and heart stent; No murmur, pacemaker, atrial fibrillation, palpitations, shortness of breat with exertion or chest pain Psych Psychiatric: Yes depression and anxiety; No hearing voices Resp Respiratory: Yes shortness of breath, No sleep apnea, No cough, No COPD, No asthma, No emphysema and No wheezing Gastro Gastrointestinal: Yes abdominal pain, Yes nausea or vomiting, Yes diarrhea, Yes constipation, Yes hemorrhoids and Yes gallbladder problem Roque Hematologic: Yes blood thinners Additional Details: aspirin Neuro Neurologic: Yes numbness, Yes tingling and No weakness Exam Const General: cooperative Orientation: alert and oriented x3 HENMT Head: normal to inspection Neck Neck: normal visual inspection and full ROM Chest Chest palpation & inspection: normal inspection of the chest Resp Effort & Inspection: normal respiratory effort Auscultation: clear to auscultation bilaterally Cardio Rate: regular rate Rhythm: regular rhythm GI Inspection: non-distended Palpation: soft and nontender Skin General: no rashes or lesions noted Neuro General: patient alert and patient oriented x3 Extrem General: full ROM Psych Appearance: grossly normal Mental Status: mental status grossly normal Assessment and Plan Assessment and Plan (1) Biliary colic: Status: Acute (2) Cholelithiasis: Status: Acute Plan The patient has gallstones and sludge and a possibly thickened gallbladder wall. To prevent further episodes of acute cholecystitis I recommend laparoscopic cholecystectomy. I discussed the procedure in detail with the patient. I discussed the risks, benefits, and alternatives of the procedure. I discussed the risks including but not limited to bleeding, infection, injury to surrounding organs such as the liver, bile duct, bowels. I did discuss the possibility of having to convert to an open procedure as well as the possibility that if any injuries occurred this may necessitate further surgery at a tertiary care center. We have asked the patient to stop his Ozempic 1 week before surgery and stop aspirin 5 days before surgery. Dimitry Camp MD Pager: [facility] [address] [place] [address], [address] [place] [address] Office: I have examined the patient and the H&P has been reviewed. There are no clinical changes since date of exam.
[2024-06-03] MEDS: Lactated Ringers 1,000 ML 15 ML IV (09:37)
--- NOTE | 2024-06-03 09:49 | PCM.PRE.AN2 ---
ASA Classification* ASA Classification ASA Classification: 3 Assessment & Plan Anesthesia* Anesthesia Assessment Anesthesia Assessment: Discussed sedation and/or anesthesia options, risks, benefits, and alternatives with patient/parents/legal guardian/POA. Questions invited. The patient/parents/legal guardian/POA seems to understand and agrees to proceed with anesthesia plan. Reviewed the physical assessment, medical history, allergy history and patient home medications list prior to surgery/procedure/anesthetic and documented any changes. Performed airway and anesthesia risk assessments. Anesthesia Type Anesthesia Type: General (*see written preanesthesia record for full assessment) Anesthesia Focused Assessment* Temperature: 97.3 F Pulse Rate: 70 Blood Pressure: 136/88 Respiratory Rate: 16 Pulse Ox: 97 Airway Assessment Mouth opens: >3 cm Mallampati Score: III Focused Labs Anesthesia Preop lab: CBC WBC 6.1 K/mm3 (4.4-11.0) 06/02/24 08:40 RBC 4.07 M/mm3 (4.6-6.2) L 06/02/24 08:40 Hgb 12.5 g/dL (13.0-16.5) L 06/02/24 08:40 Hct 35.6 % (40-54) L 06/02/24 08:40 Plt Count 169 K/mm3 (150-450) 06/02/24 08:40 CHEMISTRY Potassium 3.8 mmol/L (3.5-5.1) 06/02/24 08:40 Sodium 141 mmol/L (136-145) 06/02/24 08:40 Magnesium 2.5 mg/dL (1.6-2.6) 02/19/24 02:31 BUN 25 mg/dL (7-18) H 06/02/24 08:40 Creatinine 0.98 mg/dL (0.70-1.30) 06/02/24 08:40 Glucose 238 mg/dL (74-106) H 06/02/24 08:40 TSH 2.26 uIU/mL (0.358-3.74) 01/03/24 14:40 COAG PT 13.9 SECONDS (11.7-14.9) 10/31/21 12:23 Pre-Assessment Diagnosis/Proposed Procedure Planned Operative Procedure(s): LAP CHOLEY WITH GRAMS Anesthesia History Anesthesia History - tiedown operator: Anesthesia History - tiedown operator Hx Hospitalization No 05/23/24 10:14 Any Problems With Anesthesia No 05/23/24 10:14 Cholinesterase deficiency No 05/23/24 10:14 You/Your Family Experience No 05/23/24 10:14 fever (hyperthermia) with Relationship Recent Exposure to Contagious No 06/03/24 09:33 Disease Does patient have nerve No 05/23/24 10:14 stimulator Patient instructed to have device shut off --Does patient have Pacemaker or ICD? When Was Last Pacemaker Check QUESTION #4 FULL TEXT: You/Your Family Experience fever (hyperthermia) with Anesthesia Last Oral Intake Last Oral intake: Last Oral Intake NPO since 23:00 06/03/24 09:33 Meds taken in AM with sips of Yes 06/03/24 09:33 water? Meds patient instructed to see med list 06/03/24 09:33 take am of surgery PONV PONV - tiedown operator: PONV - tiedown operator Female No 05/23/24 10:14 HX of Motion Sickness No 05/23/24 10:14 HX of N/V After Surgery No 05/23/24 10:14 Non-Smoker Yes 05/23/24 10:14 Duration of Surgery greater No 05/23/24 10:14 than 60 minutes Number of Risk Factors 1 05/23/24 10:14 PONV Score Low Risk 05/23/24 10:14 Height & Weight Height & Weight: Anesthesia: Height & Weight Height 6 ft 1 in 06/03/24 09:33 Weight: 114.9 kg 06/03/24 09:33 Body Mass Index (BMI) 33.4 06/03/24 09:33 Respiratory Assessment Respiratory Assessment - tiedown operator: Respiratory Tract Infection Hx - tiedown operator Hx Respiratory Tract Infection No 05/23/24 10:14 STOP Sleep Apnea STOP Sleep Apnea - tiedown operator: STOP Sleep Apnea - tiedown operator Hx Hypertension Yes 05/29/24 00:29 Hx Sleep Apnea No 05/23/24 10:14 CPAP BIPAP Do you snore loudly (louder No 05/23/24 10:14 than talking or can be heard Do you often feel tired/ Yes 05/23/24 10:14 fatigued/ sleepy during daytime? Has anyone observed you stop No 05/23/24 10:14 breathing during sleep? STOP Results Positive 05/23/24 10:14 QUESTION #5 FULL TEXT : Do you snore loudly (louder than talking or can be heard through closed doors)? 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 Specify any problems Hx of Preganancy in last 3 N/A 05/23/24 10:14 Months Nurse Filling Out Transfusion DSCHRIBER 05/23/24 10:14 & Questions: Date: 05/23/24 05/23/24 10:14 Time: 10:15 05/23/24 10:14 Patient unable to answer at this time (ie. confused, unrespo /Reproduction History /Reproductive History - tiedown operator: /Reproductive Hx- tiedown operator Hx Now No 05/23/24 10:14 Gestational Age (in weeks): EDC: Hx Hx Para Hx Section SAB No 05/23/24 10:14 Active Medications Active Medications: Current Medications Generic Name Dose Route Start Last Admin Trade Name Freq PRN Reason Stop Dose Admin Clindamycin Phosphate 900 mg in 50 mls @ 75 mls/hr 06/03/24 12:15 Cleocin IV 06/03/24 12:54 PREOP ONE Lactated Ringer's 1,000 mls @ 15 mls/hr 06/03/24 09:15 06/03/24 09:37 IV 15 mls/hr .Q48H STEPHEN Administration PFSH Medical History Wears hearing aid Wears glasses Schizophrenia Anxiety Diabetes Low iron Fatty liver Restless legs Back pain Tic disorder History of diverticulitis Former smoker History of stress test Cardiology follow-up encounter Hypertension History of sarcoidosis Depression Pancreatitis Secondary pulmonary arterial hypertension Atherosclerotic heart disease of [place] coronary artery with other forms of angina pectoris History of non-ST elevation myocardial infarction (NSTEMI) (07/26/20) Essential hypertension Type 2 diabetes mellitus Nausea Fatigue Urinary hesitancy Liver disease Hypoglycemia Hyperlipemia Gout GERD (gastroesophageal reflux disease) Anxiety and depression Bone fracture Anemia History of alcohol abuse Schizoaffective disorder Home Medications ?Medication ?Instructions ?Recorded ?Last Taken ?Type needle (disp) 18 G 18 gauge x 1 #100 ea 05/22/22 Unknown Rx (BD Regular Bevel [place]) testosterone cypionate 200 mg/mL 100 mg (0.5 mL) IM Q2W #5 mL 09/30/23 Unknown Rx intramuscular oil nitroglycerin 0.4 mg sublingual 0.4 mg sublingual Q5-15M PRN chest 01/11/24 Unknown Rx tablet (Nitrostat) pain #25 tabs atorvastatin 40 mg tablet 40 mg PO QHS 90 days #90 tabs 01/14/24 Unknown Rx flash glucose scanning reader #1 ea 02/05/24 Unknown Rx (FreeStyle Jean 2 [place]) flash glucose sensor (FreeStyle #1 ea 02/05/24 Unknown Rx Jean 2 Sensor kit) cholecalciferol (vitamin D3) 125 5,000 unit PO DAILY 05/05/24 Unknown History mcg (5,000 unit) tablet (Vitamin D3) coenzyme Q10 100 mg capsule 100 mg PO DAILY because I'm taking 05/05/24 Unknown History (CoQ-10) a statin ferrous sulfate 325 mg (65 mg 325 mg PO DAILY 05/05/24 Unknown History iron) tablet (FeroSul) fluoxetine 40 mg capsule 80 mg PO 1400 05/05/24 Unknown History isosorbide mononitrate 30 mg 60 mg PO 1400,0100 05/05/24 06/03/24 01:33 History tablet,extended release 24 hr metformin 500 mg tablet,extended 1,000 mg PO BID 05/05/24 Unknown History release 24 hr trifluoperazine 2 mg tablet 2 mg PO 0300 For nervous tics. 05/05/24 Unknown History semaglutide 1 mg/dose (4 mg/3 mL) 1 mg (0.75 mL) subcut QWEEK #3 mL 05/12/24 Unknown Rx subcutaneous pen injector syringe with needle, safety 3 mL #50 ea 05/13/24 Unknown Rx 25 gauge x 1 amlodipine 5 mg tablet 5 mg PO 0400 05/23/24 06/03/24 02:32 History aspirin 81 mg tablet,delayed 81 mg PO 1400 05/23/24 Unknown History release carvedilol 25 mg tablet 25 mg PO 1400,0100 05/23/24 06/03/24 01:33 History doxepin 25 mg capsule 25 mg PO 0400 05/23/24 Unknown History magnesium glycinate 100 mg (as 400 mg PO QHS 05/23/24 Unknown History glycinate) tablet (Mag Glycinate) melatonin 10 mg capsule 10 mg PO QHS 05/23/24 Unknown History omega-3-epa 910 mg-fish oil 1,300 2 cap PO DAILY 05/23/24 Unknown History mg capsule,delayed release vitamin B complex 1 tab PO DAILY 05/23/24 Unknown History Allergy/AdvReac Type Severity Reaction Status Date / Time Penicillins (PCN) Allergy Other Verified 06/03/24 09:31 lisinopril AdvReac cough Verified 06/03/24 09:31 spironolactone AdvReac elevated Verified 06/03/24 09:31 blood sugar Family History Other CVA (cerebral vascular accident) Cancer Depression with anxiety Diabetes FH: mental illness Hyperlipemia Hypertension Osteoporosis Surgical History Hx of colonoscopy History of left heart catheterization (11/02/21) History of coronary artery stent placement (07/26/20) History of cataract surgery History of placement of ear tubes History of tonsillectomy History of amputation of finger Social History Smoking Status: Former smoker quit date: 10/29/05 Tobacco: How many years used: 15 alcohol intake: former year quit: 2014 substance use type: does not use caffeine: Yes Type: carbonated beverages and coffee what type of physical activity do you participate in: walking Review of Systems (Anesthesia) ROS Narrative System reviewed and no additional complaints, except as documented.
[2024-06-03 09:57] LABS: Bedside Glucose 105 mg/dL (74-106)
--- NOTE | 2024-06-03 10:45 | GALL_PTH ---
PATIENT: ALIX LEE LOC: [facility] [place] U#:[id number] AGE/SX: 64/M ROOM: RE06/03/[address]: Dr. Dimitry Camp MD : 1960 BED: DIS: 06/03/2024 SPEC #: [id number] RECD: 06/03/24 13:26 STATUS: EVARISTO ESCALANTE #: [id number] TRISTA: 06/03/24 10:[address]: Dimitry Camp DEPT: SURGICAL PATHOLOGY RECD BY: Stacy Hadley ENTERED: 06/04/24 07:10 SP TYPE: RAVIN WAITE DR: Dr. Caryl Turner MD Tissues: Gallbladder, NOS Procedures: Surgery Specimen Level III HEADER OPERATION: Laparoscopic cholecystectomy with IOC PRE-OP DIAGNOSIS: Biliary colic, cholelithiasis TISSUE SUBMITTED: Gallbladder MICROSCOPIC DIAGNOSIS Gallbladder, cholecystectomy: Chronic cholecystitis and cholelithiasis. AM/ 06/05/2024 MICROSCOPIC DESCRIPTION Slides are reviewed. GROSS DESCRIPTION Received is one container labeled with the patient's name and designated gallbladder. The specimen consists of a gallbladder measuring 11.0 cm in length and up to 4.0 cm in diameter. The external surface is pink-harrell, smooth and glistening for the most part. Focally it is granular, hemorrhagic and contains cautery artifact. The gallbladder contains green-yellow mucoid bile and four friable brown stones measuring in aggregate 1.5 x 0.5 x 0.3cm and 0.2 to 0.3 cm in greatest dimension. The mucosa is bile-stained and without any mass lesions. The gallbladder wall measures up to 0.3 cm in thickness. Warehouse Receiving Supervisor sections from the gallbladder and the cystic duct are submitted in one cassette. / ROSIE: 06/04/2024 TC:3 CPT: 44161
[2024-06-03] MEDS: Clindamycin 900 MG/50 ML BAG 75 MG IV (12:20)
--- NOTE | 2024-06-03 12:37 | RAD_ITS ---
INDICATION: PAIN EXAMINATION/TECHNIQUE: 98 limited spot intraoperative films are presented for evaluation. Total Fluoroscopic Time: 15.7 seconds AND number of Fluoroscopic Images: 98 OR Radiation dosage index: 10.73 mGy COMPARISON: No relevant prior comparison study available FINDINGS: No filling defects are identified. There is no biliary ductal dilatation. There is free passage into the duodenum. RAD/Cholangiogram/ O R,Initial IMPRESSION: Negative intraoperative cholangiogram. Electronically Signed: Adair Hill MD at 14:40 EDT ,
[2024-06-03] MEDS: Bupiv/Epi 0.25% 30 ML Vial (13:00)
--- NOTE | 2024-06-03 13:10 | PCM.OPRPT ---
Report of Operation Date of Procedure: 06/03/24 Pre-Operative Diagnosis: Biliary colic and cholelithiasis Post-Operative Diagnosis: Same Surgery/Procedure Performed:: Laparoscopic cholecystectomy with cholangiograms Type of Anesthesia: General/Regional Specimen's removed: Gallbladder Estimated Blood Loss (mL): 10 Description of Procedure: After obtaining informed consent patient was brought back to the operating room. General anesthesia was induced. The abdomen was prepped and draped in usual sterile fashion. A small midline incision was made superior to the umbilicus and deepened to the level of fascia. The fascia was elevated and incised. Next the peritoneum was elevated and incised in the same fashion. Finger sweep was performed and the Bender trocar was placed into the abdomen. The balloon was inflated. The abdomen was inflated to 15 mmHg. Next a camera was introduced into the abdomen and the abdomen was inspected. Next under direct visualization three 5-mm ports were placed one subxiphoid and 2 subcostal. Next the gallbladder was elevated and retracted toward the right shoulder. The peritoneum was stripped from the gallbladder. The infundibulum was located and retracted laterally. Next the triangle of [place] was dissected and the cystic duct and cystic artery were identified. Cholangiograms were performed. The Howard clamp was used to clamp across the infundibulum and the catheter needle was inserted into the gallbladder. Under fluoroscopy contrast was instilled into the gallbladder and the common duct, cystic duct as well as proximal hepatic ducts were identified. There was good filling of the duodenum. There were no filling defects noted in the common bile duct. The clamp was removed as well as the needle and the infundibulum was grasped once more. Three hemolock clips were placed across the cystic duct. The cystic duct was then divided leaving 2 clips on the stump. The cystic artery was clipped and divided in the same fashion. The hook cautery was then used to take the gallbladder off of the gallbladder bed. Hemostasis was obtained. Gallbladder fossa was irrigated and no active bleeding or bile leakage was noted. Next the camera was introduced in the subxiphoid port. An Endopouch bag was placed through the umbilical port and the gallbladder was placed into it. The gallbladder was then removed through the umbilical incision. The camera was then reinserted through the umbilical port. The gallbladder fossa was inspected once more and noted to be hemostatic with no leaking bile. The abdomen was suctioned dry. The 5 mm ports were removed under direct visualization. The umbilical port was then removed and the air was removed from the abdomen. Next using an 0 Vicryl suture the umbilical fascia was closed in a [id number] fashion. The umbilical port site was irrigated local anesthetic was administered to all the incisions. All the incisions were closed with interrupted subcuticular 4-0 Monocryl sutures followed by Steri-Strips and dressings. The patient was awoken and taken to PACU in stable condition. Admit VTE Documentation VTE Mechan Device Prophylaxis: SCD's
--- NOTE | 2024-06-03 13:13 | DCINST_ITS ---
Discharge Instructions Procedure Gallbladder Diet Discharge Diet: Light diet - advance as tolerated Activity Discharge Activity: May Not Drive (for 2-3 days or while taking narcotic pain medications.) and - (Do not drive, work heavy equipment or sign legal documents for 24 hours.) May shower in (days): 1 Lifting Restrictions: 20 lbs for 2 weeks Additional Activity Instructions:: Pain medication may cause nausea. You should typically eat light foods as you take your pain medications. Pain medication may also cause constipation. If this is a problem for you, please discuss with your doctor. Alternate ibuprofen and Tylenol for pain control, oxycodone for breakthrough pain. Resume aspirin tomorrow. Resume resume Ozempic at any time after surgery Dressing / Incision Call your doctor if your incision/area has: Continuous Slow Oozing, Sudden Increased Bleeding, Increased Pain/ Swelling, Increased Redness and Foul Smellin g Discharge Call your doctor if you observe: Fever of 101 or Higher Suture Line Care: Avoid Pulling/Pushing and Avoid Pinching/Bending Remove Dressing in: 2 days Additional Dressing/Incision Instructions:: Leave operative bandaids on for 2 days. Remove Steri-Strips in 7 to 10 days Follow Up Care Please Follow Up With: Dimitry Camp MD When: Please call to schedule 2 week follow up appointment. [phone] Test Results: Test results from this visit will be discussed in further detail at your follow- up appointment, if applicable. Discharge Plan Admission Attending Provider: Dimitry Camp Primary Care Provider: Caryl uTrner Instructions Print Language: Polish Discharge Orders/Prescriptions Prescriptions: New oxycodone 5 mg Tablet 5 - 10 mg PO Q4H PRN PRN (Reason: Pain Score 4-10) 5 Days Qty: 20 0RF No Action fluoxetine 40 mg capsule 80 mg PO 1400 cholecalciferol (vitamin D3) [Vitamin D3] 125 mcg (5,000 unit) tablet 5,000 unit PO DAILY isosorbide mononitrate 30 mg tablet extended release 24 hr 60 mg PO 1400,0100 trifluoperazine 2 mg tablet 2 mg PO 0300 Patient Comments: I tried to get completely off of it, but I started getting nervous tics when I got lower than 2mg/day. I no longer need it, but since I have been on it for over 36 years, it's very difficult to stop. ferrous sulfate [FeroSul] 325 mg (65 mg iron) tablet 325 mg PO DAILY metformin 500 mg tablet extended release 24 hr 1,000 mg PO BID coenzyme Q10 [CoQ-10] 100 mg capsule 100 mg PO DAILY doxepin 25 mg capsule 25 mg PO 0400 vitamin B complex Tablet 1 tab PO DAILY jiluz-5-vfx-fish oil 910-1,300 mg capsule,delayed release(DR/EC) 2 cap PO DAILY melatonin 10 mg capsule 10 mg PO QHS Mag Glycinate 100 mg tablet 400 mg PO QHS carvedilol 25 mg tablet 25 mg PO 1400,0100 amlodipine 5 mg tablet 5 mg PO 0400 aspirin 81 mg tablet,delayed release (DR/EC) 81 mg PO 1400 (DME) needle (disp) 18 G [BD Regular Bevel [place]] 18 gauge x 1 needle See Rx Instructions .Route Qty: 100 0RF Rx Instructions: As directed testosterone cypionate 200 mg/mL oil 100 mg IM Q2W Qty: 5 5RF Rx Instructions: PLEASE dispense as five 1ml vials nitroglycerin [Nitrostat] 0.4 mg tablet, sublingual 0.4 mg sublingual Q5-15M PRN (Reason: chest pain) Qty: 25 3RF Rx Instructions: do not exceed 3 doses per episode atorvastatin 40 mg tablet 40 mg PO QHS 90 Days Qty: 90 3RF (DME) FreeStyle Jean 2 Sensor Kit See Rx Instructions .Route Qty: 1 11RF Rx Instructions: As directed (DME) FreeStyle Jean 2 [place] Misc See Rx Instructions .Route Qty: 1 1RF Rx Instructions: As directed semaglutide 1 mg/dose (4 mg/3 mL) pen injector 1 mg subcut QWEEK Qty: 3 5RF Rx Instructions: for 4 weeks (DME) syringe with needle, safety 3 mL 25 gauge x 1 syringe See Rx Instructions .Route Qty: 50 0RF Rx Instructions: As directed Referrals / Follow Up: Caryl Turner MD [Primary Care Provider] - Disposition Disposition (needs filled in before D/C Order can be placed): Home, Self Care
--- NOTE | 2024-06-03 13:17 | PCM.POST.ANE ---
Anesthesia: Postop Eval I Current Vital Signs Temperature: 97.2 F Pulse Rate: 76 Blood Pressure: 153/92 Respiratory Rate: 20 Pulse Ox: 90 Oxygen Delivery Method: Simple Mask Oxygen Flow Rate (L/min): 8 Assessment Airway patent: Yes Spontaneous unlabored respirations: Yes Mental status: Awake and Calm nausea: No Vomiting: No Anesthesia Complication: No Fluid Hydration Crystalloid volume administer (ml): 1,000 Total IV fluid infused: 1,000 Progress Note Anesthesia document: Postop Eval 1 completed: Yes
--- NOTE | 2024-06-03 13:55 | POSTOPAN2_ITS ---
Anesthesia Postop Eval I Sum Postop Eval Completion status Anesthesia document: Postop Eval 1 completed: Yes Anesthesia Postop Eval I Summary Anesthesia Postop Eval I Summary: Anesthesia Postop Eval I: Assessment Summary Airway patent Yes 06/03/24 13:22 INTERNET TECHNOLOGY MANAGER.[email or web address] Spontaneous unlabored Yes 06/03/24 13:22 INTERNET TECHNOLOGY MANAGER.JDEF respirations Mental status Awake,Calm 06/03/24 13:22 INTERNET TECHNOLOGY MANAGER.JDEF nausea No 06/03/24 13:22 INTERNET TECHNOLOGY MANAGER.JDEF Vomiting No 06/03/24 13:22 INTERNET TECHNOLOGY MANAGER.JDEF Anesthesia Postop Eval I: Fluid Summary Crystalloid volume administer 1,000 06/03/24 13:22 INTERNET TECHNOLOGY MANAGER.JDEF (ml) Colloids volume administered ( ml) Blood Product volume administered (ml) Total IV fluid infused 1,000 06/03/24 13:22 INTERNET TECHNOLOGY MANAGER.JDEF Anesthesia Postop Eval I: Summary Notes Anesthesia Complication No 06/03/24 13:22 INTERNET TECHNOLOGY MANAGER.JDEF Anesthesia Complication Comment: Post-operative progress note Anesthesia: Postop Eval II Evaluation Mental status: Awake Pain Level: 0 nausea: No Vomiting: No
--- NOTE | 2024-06-03 13:55 | PCM.POSTANE2 ---
Anesthesia Postop Eval I Sum Postop Eval Completion status Anesthesia document: Postop Eval 1 completed: Yes Anesthesia Postop Eval I Summary Anesthesia Postop Eval I Summary: Anesthesia Postop Eval I: Assessment Summary Airway patent Yes 06/03/24 13:22 JAVA APPLICATION [email or web address] Spontaneous unlabored Yes 06/03/24 13:22 JAVA APPLICATION DEVELOPER.JDEF respirations Mental status Awake,Calm 06/03/24 13:22 JAVA APPLICATION [email or web address] nausea No 06/03/24 13:22 JAVA APPLICATION DEVELOPER.[email or web address] Vomiting No 06/03/24 13:22 JAVA APPLICATION [email or web address] Anesthesia Postop Eval I: Fluid Summary Crystalloid volume administer 1,000 06/03/24 13:22 JAVA APPLICATION DEVELOPER.JDEF (ml) Colloids volume administered ( ml) Blood Product volume administered (ml) Total IV fluid infused 1,000 06/03/24 13:22 JAVA APPLICATION DEVELOPER.JDEF Anesthesia Postop Eval I: Summary Notes Anesthesia Complication No 06/03/24 13:22 JAVA APPLICATION [email or web address] Anesthesia Complication Comment: Post-operative progress note Anesthesia: Postop Eval II Evaluation Mental status: Awake Pain Level: 0 nausea: No Vomiting: No
[2024-06-03 14:59] LABS: Bedside Glucose 149 mg/dL (74-106)
[2024-06-03] MEDS: Acetaminophen 325 MG Tablet 650 MG PO (15:41)
--- NOTE | 2024-06-03 15:46 | CPS ---
pt aersol given by PACU nurse Pritesh.
== END 2024-06-03 16:20 | disposition home or self-care (01) ==
LOC: SDC 09:08 → AC 09:08
PROVIDERS: Anesthesiology; PCP Internal Medicine; Referring Provider Surgery; Visit Provider Surgery
PROC: (CPT 47610; principal; 2024-06-03 10:25)
DX: K80.10 Calculus of gallbladder with chronic cholecystitis without obstruction (principal); F25.9 Schizoaffective disorder, unspecified; E11.9 Type 2 diabetes mellitus without complications; I10 Essential (primary) hypertension; I25.10 Atherosclerotic heart disease of native coronary artery without angina pectoris; I25.2 Old myocardial infarction; F32.A Depression, unspecified; F95.9 Tic disorder, unspecified; Z87.891 Personal history of nicotine dependence; Z79.899 Other long term (current) drug therapy; Z79.82 Long term (current) use of aspirin; Z79.84 Long term (current) use of oral hypoglycemic drugs; Z95.5 Presence of coronary angioplasty implant and graft
CPT/HCPCS: 47563; 00790; 36415; 74300; 76000; 80048; 82962; 83036; 85027; 88304; 93005; 94640; J7120; J2405

== ENCOUNTER 2024-07-18 00:21 | Emergency (ER) | payer MEDICARE, SELFPAY ==
[2024-07-18 00:22] VITALS: BP 134/77; PULSE 73; RESP 18; TEMP 36.6; O2SAT 96; BMI 33.7
[2024-07-18 01:06] LABS: Absolute Lymphocyte Count 1.49 X10^3/uL (0.83-4.51); Absolute Neutrophil Count 6.5 X10^3/uL (2.0-7.7); Basophil# 0.05 X10^3/uL; Basophil% 0.6 % (0-1); Eosinophil# 0.26 X10^3/uL; Eosinophils% 2.9 % (0-5); Hematocrit 35.6 % (40-54); Hemoglobin 12.6 g/dL (13.0-16.5); Lymphocyte # 1.49 X10^3/ul (0.83-4.51); Lymphocyte % 16.4 % (19-41); Mean Corp Hgb Conc 35.4 g/dL (32-36); Mean Corpuscular Hgb 30.7 pg (27.0-32.0); Mean Corpuscular Volume 86.8 fL (80-94); Monocyte# 0.74 X10^3/uL; Monocyte% 8.2 % (0-10); NRBC Flagged by Analyzer 0 % (0-5); Neutrophil % 71.6 % (47-70); Platelet Count 207 K/mm3 (150-450); RBC Distribution Width CV 12.9 % (11.6-14.6); RBC Distribution Width SD 40.3 fl (35.1-43.9); White Blood Count 9.1 K/mm3 (4.4-11.0)
[2024-07-18] MEDS: 0.9% Normal Saline (1000mL) 1,000 ML 999 ML IV (01:08)
[2024-07-18] MEDS: Ondansetron 4 MG/2 ML Vial IV (01:08)
[2024-07-18] MEDS: diazePAM 5 MG Tablet PO (01:09)
[2024-07-18 01:27] LABS: AST(SGOT) 24 U/L (15-37); Alanine Aminotransfer ALT/SGPT 35 U/L (16-61); Alkaline Phosphatase 83 U/L (45-117); Anion Gap 13 (5-15); BUN 30 mg/dL (7-18); BUN/Creat Ratio 31.2 RATIO (10-20); Bilirubin, Direct 0.32 mg/dL (0.00-0.30); Calcium,Total 9.1 mg/dL (8.5-10.1); Chloride 100 mmol/L (98-107); Creatinine, Serum 0.96 mg/dL (0.70-1.30); EST Glomerular Filtration Rate 84 mL/min (>60); Est Glom Filt Rate - Afr Amer 102 mL/min (>60); Estimated Creatinine Clearance 106.55 ml/min; Globulin 2.9 g/dL (2.2-4.2); Glucose 122 mg/dL (74-106); Lipase 39 U/L (13-75); Magnesium 1.7 mg/dL (1.6-2.6); Potassium 3.9 mmol/L (3.5-5.1); Protein, Total 6.9 g/dL (6.4-8.2); Sodium Level 133 mmol/L (136-145); Troponin-I HS 3 pg/mL (3.0-78.0)
--- NOTE | 2024-07-18 02:21 | EX.ED.DYSGE1 ---
HPI History of Present Illness Chief Complaint: Dizziness Informant: patient and spouse/S.O. Narrative Narrative: Patient is a 64-year-old male with schizoaffective disorder as well as hypertension hyperlipidemia and type 2 diabetes. He has been on Ozempic and has had bouts of nausea and vomiting associated with this. His last dose was roughly 1 week ago and he felt he was improving by then this evening began complaining of dizziness when he rolled over in bed as well as worsening nausea and vomiting sensation and therefore comes in for evaluation. [facility] Medical History (Updated 07/23/24 @ 06:[address] Bridger Han, DO) Nausea & vomiting Colon cancer screening Cholelithiasis Wears hearing aid Wears glasses Schizophrenia Anxiety Diabetes Low iron Fatty liver Restless legs Back pain Tic disorder History of diverticulitis Former smoker History of stress test Cardiology follow-up encounter Hypertension History of sarcoidosis Depression Pancreatitis Secondary pulmonary arterial hypertension Atherosclerotic heart disease of [place] coronary artery with other forms of angina pectoris History of non-ST elevation myocardial infarction (NSTEMI) (07/26/20) Essential hypertension Type 2 diabetes mellitus Nausea Fatigue Urinary hesitancy Liver disease Hypoglycemia Hyperlipemia Gout GERD (gastroesophageal reflux disease) Anxiety and depression Bone fracture Anemia History of alcohol abuse Schizoaffective disorder Home Medications ?Medication ?Instructions ?Recorded ?Last Taken ?Type needle (disp) 18 G 18 gauge x 1 #100 ea 05/22/22 Unknown Rx (BD Regular Bevel [place]) nitroglycerin 0.4 mg sublingual 0.4 mg sublingual Q5-15M PRN chest 01/11/24 Unknown Rx tablet (Nitrostat) pain #25 tabs atorvastatin 40 mg tablet 40 mg PO QHS 90 days #90 tabs 01/14/24 Unknown Rx flash glucose scanning reader #1 ea 02/05/24 Unknown Rx (FreeStyle Jean 2 [place]) flash glucose sensor (FreeStyle #1 ea 02/05/24 Unknown Rx Jean 2 Sensor kit) cholecalciferol (vitamin D3) 125 5,000 unit PO DAILY 05/05/24 Unknown History mcg (5,000 unit) tablet (Vitamin D3) coenzyme Q10 100 mg capsule 100 mg PO DAILY because I'm taking 05/05/24 Unknown History (CoQ-10) a statin ferrous sulfate 325 mg (65 mg 325 mg PO DAILY 05/05/24 Unknown History iron) tablet (FeroSul) fluoxetine 40 mg capsule 80 mg PO 1400 05/05/24 Unknown History isosorbide mononitrate 30 mg 60 mg PO 1400,0100 05/05/24 06/03/24 01:33 History tablet,extended release 24 hr metformin 500 mg tablet,extended 1,000 mg PO BID 05/05/24 Unknown History release 24 hr trifluoperazine 2 mg tablet 2 mg PO 0300 For nervous tics. 05/05/24 Unknown History syringe with needle, safety 3 mL #50 ea 05/13/24 Unknown Rx 25 gauge x 1 amlodipine 5 mg tablet 5 mg PO 0400 05/23/24 06/03/24 02:32 History aspirin 81 mg tablet,delayed 81 mg PO 1400 05/23/24 Unknown History release carvedilol 25 mg tablet 25 mg PO 1400,0100 05/23/24 06/03/24 01:33 History magnesium glycinate 100 mg (as 400 mg PO QHS 05/23/24 Unknown History glycinate) tablet (Mag Glycinate) melatonin 10 mg capsule 10 mg PO QHS 05/23/24 Unknown History omega-3-epa 910 mg-fish oil 1,300 2 cap PO DAILY 05/23/24 Unknown History mg capsule,delayed release vitamin B complex 1 tab PO DAILY 05/23/24 Unknown History testosterone cypionate 200 mg/mL 100 mg (0.5 mL) IM Q2W #5 mL 06/09/24 Unknown Rx intramuscular oil quetiapine 25 mg tablet 25 mg PO QHS PRN sleep 07/09/24 Unknown History diazepam 5 mg tablet (Valium) 5 mg PO TID PRN dizziness or 07/18/24 Unknown Rx vertigo 5 days #15 tabs ondansetron 4 mg disintegrating 4 mg PO TID PRN nausea and 07/18/24 Unknown Rx tablet vomiting #21 tabs Allergy/AdvReac Type Severity Reaction Status Date / Time Penicillins (PCN) Allergy Other Verified 07/18/24 00:22 lisinopril AdvReac cough Verified 07/18/24 00:22 spironolactone AdvReac elevated Verified 07/18/24 00:22 blood sugar Family History Other CVA (cerebral vascular accident) Cancer Depression with anxiety Diabetes FH: mental illness Hyperlipemia Hypertension Osteoporosis Surgical History Hx of colonoscopy History of left heart catheterization (11/02/21) History of coronary artery stent placement (07/26/20) History of cataract surgery History of placement of ear tubes History of tonsillectomy History of amputation of finger Social History Smoking Status: Former smoker quit date: 10/29/05 Tobacco: How many years used: 15 alcohol intake: former year quit: 2014 substance use type: does not use caffeine: Yes Type: carbonated beverages and coffee what type of physical activity do you participate in: walking ROS ROS ED Constitutional Constitutional ED: Denies chills or fever(s) Eyes Eyes: Denies blurry vision or change in vision ENT ENT ED: Denies sore throat Cardiovascular Cardiovascular: Denies chest pain Respiratory/Chest Respiratory/Chest: Denies cough or dyspnea Gastrointestinal Gastrointestinal: Reports nausea and vomiting; Denies abdominal pain or diarrhea Genitourinary Genitourinary ED: Denies dysuria Musculoskeletal Musculoskeletal: Denies myalgias Integumentary Denies rash Neurologic Neurologic: Reports other Details: Positive dizziness ; Denies headache(s) Hematologic/Lymphatic Hematologic/Lymphatic: Denies easy bleeding or easy bruising EXAM Physical Exam Const Vital Signs: 07/18/24 00:22 Temperature 98 F Temperature Source Oral Pulse Rate 73 Respiratory Rate 18 Blood Pressure 134/77 H Blood Pressure Mean 96 Pulse Ox 96 Oxygen Delivery Method Room Air Positive well nourished, well developed and obese General Appearance ED: well developed; Negative for pallor Nutritional Appearance: obese HEENT Reports TM's clear and dry mucous membranes HEENT Narrative: Mucous membranes are dry and tacky No tongue or lip swelling no oral lesions no airway edema or compromise No secondary findings to suggest infection in the posterior pharynx Tympanic Membrane ED: Yes TM's clear Mouth ED: Yes dry mucous membranes Mouth: dry mucous membranes Eyes PERRL and EOMs intact bilaterally General Eye ED: Negative for scleral icterus Neck supple Resp normal respiratory effort and clear to auscultation bilaterally Cardio regular rate and regular rhythm Rate: other Other Details: Heart is regular rate and rhythm Radial and carotid pulses equal and symmetric GI non-tender, non-distended and no masses GI Narrative: Abdomen is soft nontender nondistended with hyperactive bowel sounds no voluntary guarding or rigidity or pulsatile mass Auscultation: hyperactive bowel sounds Palpation: soft Extremity normal to inspection Neuro oriented x3, CN's II-XII intact bilaterally and no sensory deficits noted Neuro Narrative: GCS of 15 Cranial nerves II through XII are grossly intact without focal neurologic deficit No pronator drift no dysmetria no truncal ataxia NIH stroke scale score of 0 There was horizontal nystagmus present Positive Hallpike Kenrick exam on right Sensorium / Orientation: alert Motor Exam: strength 5/5 throughout Psych Psych Narrative: Patient has a flat affect Skin no rashes or lesions noted and No skin turgor normal Skin Narrative: Skin turgor is increased General Skin Exam: Negative for jaundice or pallor MDM MDM MDM Narrative Medical decision making narrative: Patient presented to ER with stable vitals and a nonfocal neuroexam. He described nausea and vomiting that came on after a sensation of dizziness which he also describes as more of a sense of motion and occurred with changes in position. Differential diagnosis is for peripheral vertigo versus infectious process such as norovirus versus rotavirus versus acute kidney injury versus electrolyte abnormality. Based on the fact he has a positive Hallpike Kenrick exam but otherwise no signs of central vertigo or focal neurologic deficit did not feel the need for a CT or CTA. Basic blood work was obtained to check for signs of PELON or electrolyte abnormality. Blood work revealed no clinically significant findings but physical exam did show dehydration with dry mucous membranes and increased skin tenting. After patient was treated with Valium and Zofran and IV fluids he reported feeling better and he was able to ambulate with a steady gait. Therefore at this time with workup revealing no signs of acute infection focal neurologic deficit or clinically significant electrolyte abnormality there is no need for further workup especially as patient is feeling better with symptomatic care and is otherwise safe for discharge History & Record Review Discussion w/independent historian: Patient and Significant other Lab Data Attestation: I reviewed the patient's lab results. Labs: Laboratory Results - last 24 hr 07/18/24 00:32 WBC 9.1 RBC 4.10 L Hgb 12.6 L Hct 35.6 L MCV 86.8 MCH 30.7 MCHC 35.4 RDW Std Deviation 40.3 RDW Coeff of [place] 12.9 Plt Count 207 MPV 9.0 Immature Gran % (Auto) 0.300 Neut % (Auto) 71.6 H Lymph % (Auto) 16.4 L [place] % (Auto) 8.2 Eos % (Auto) 2.9 Baso % (Auto) 0.6 Absolute Neuts (auto) 6.5 Absolute Lymphs (auto) 1.49 Nucleated RBC % 0 Sodium 133 L Potassium 3.9 Chloride 100 Carbon Dioxide 20.0 L Anion Gap 13 BUN 30 H Creatinine 0.96 Estim Creat Clear Calc 106.55 Est GFR (MDRD) Af Amer 102 Est GFR (MDRD) Non-Af 84 BUN/Creatinine Ratio 31.2 H Glucose 122 H Calcium 9.1 Magnesium 1.7 Total Bilirubin 1.10 H Direct Bilirubin 0.32 H AST 24 ALT 35 Alkaline Phosphatase 83 Troponin I High Sens 3 Total Protein 6.9 Albumin 4.0 Globulin 2.9 Lipase 39 Discharge Plan Triage Chief Complaint: Dizziness ED Provider: Bridger Han Dx/Rx/DC Orders Clinical Impression: Nausea, Mild dehydration, Schizoaffective disorder, Essential hypertension, Type 2 diabetes mellitus Instructions: Dehydration, ED Gastroenteritis, Viral (Adult) Prescriptions: New ondansetron 4 mg tablet,disintegrating 4 mg PO TID PRN (Reason: nausea and vomiting) Qty: 21 0RF diazepam [Valium] 5 mg tablet 5 mg PO TID PRN (Reason: dizziness or vertigo) 5 Days Qty: 15 0RF No Action fluoxetine 40 mg capsule 80 mg PO 1400 cholecalciferol (vitamin D3) [Vitamin D3] 125 mcg (5,000 unit) tablet 5,000 unit PO DAILY isosorbide mononitrate 30 mg tablet extended release 24 hr 60 mg PO 1400,0100 trifluoperazine 2 mg tablet 2 mg PO 0300 Patient Comments: I tried to get completely off of it, but I started getting nervous tics when I got lower than 2mg/day. I no longer need it, but since I have been on it for over 36 years, it's very difficult to stop. ferrous sulfate [FeroSul] 325 mg (65 mg iron) tablet 325 mg PO DAILY metformin 500 mg tablet extended release 24 hr 1,000 mg PO BID coenzyme Q10 [CoQ-10] 100 mg capsule 100 mg PO DAILY quetiapine 25 mg tablet 25 mg PO QHS PRN (Reason: sleep) vitamin B complex Tablet 1 tab PO DAILY ywasq-3-mvt-fish oil 910-1,300 mg capsule,delayed release(DR/EC) 2 cap PO DAILY melatonin 10 mg capsule 10 mg PO QHS Mag Glycinate 100 mg tablet 400 mg PO QHS carvedilol 25 mg tablet 25 mg PO 1400,0100 amlodipine 5 mg tablet 5 mg PO 0400 aspirin 81 mg tablet,delayed release (DR/EC) 81 mg PO 1400 (DME) needle (disp) 18 G [BD Regular Bevel [place]] 18 gauge x 1 needle See Rx Instructions .Route Qty: 100 0RF Rx Instructions: As directed nitroglycerin [Nitrostat] 0.4 mg tablet, sublingual 0.4 mg sublingual Q5-15M PRN (Reason: chest pain) Qty: 25 3RF Rx Instructions: do not exceed 3 doses per episode atorvastatin 40 mg tablet 40 mg PO QHS 90 Days Qty: 90 3RF (DME) FreeStyle Jean 2 Sensor Kit See Rx Instructions .Route Qty: 1 11RF Rx Instructions: As directed (DME) FreeStyle Jean 2 [place] Misc See Rx Instructions .Route Qty: 1 1RF Rx Instructions: As directed (DME) syringe with needle, safety 3 mL 25 gauge x 1 syringe See Rx Instructions .Route Qty: 50 0RF Rx Instructions: As directed testosterone cypionate 200 mg/mL oil 100 mg IM Q2W Qty: 5 5RF Rx Instructions: PLEASE dispense as five 1ml vials Primary Care Provider: Caryl Turner Referrals: Caryl Turner MD [Primary Care Provider] - Print Language: Trinidadian Disposition Disposition: Home, Self Care Discharge Date/Time: 07/18/24 02:46
[2024-07-18 02:22] VITALS: BP 134/74; PULSE 63; RESP 18; O2SAT 98
[2024-07-18 02:43] VITALS: BP 134/74; PULSE 63; RESP 18; TEMP 37; O2SAT 98
== END 2024-07-18 02:46 | disposition home or self-care (01) ==
PROVIDERS: Emergency Provider Emergency Medicine; PCP Internal Medicine; Visit Provider Emergency Medicine
DX: R11.0 Nausea (principal); F25.9 Schizoaffective disorder, unspecified; E11.9 Type 2 diabetes mellitus without complications; I10 Essential (primary) hypertension; E78.5 Hyperlipidemia, unspecified; I25.10 Atherosclerotic heart disease of native coronary artery without angina pectoris; E86.0 Dehydration; E66.9 Obesity, unspecified; I25.2 Old myocardial infarction; Z79.82 Long term (current) use of aspirin; Z79.899 Other long term (current) drug therapy; Z79.84 Long term (current) use of oral hypoglycemic drugs; Z79.85 Long-term (current) use of injectable non-insulin antidiabetic drugs; Z87.891 Personal history of nicotine dependence
CPT/HCPCS: 80048; 80076; 83690; 83735; 84484; 85025; 96361; 96374; 96376; 99284; J7030; A4216; J2405

== ENCOUNTER 2024-08-30 20:29 | Emergency (ER) | payer MEDICARE, SELFPAY ==
[2024-08-30 20:31] VITALS: BP 168/93; PULSE 90; RESP 18; TEMP 36.6; O2SAT 99; BMI 33.2
[2024-08-30] MEDS: 0.9% Normal Saline (1000mL) 1,000 ML 999 ML IV (22:21)
[2024-08-30] MEDS: diazePAM 5 MG Tablet PO (22:22)
[2024-08-30 22:25] LABS: Absolute Lymphocyte Count 0.79 X10^3/uL (0.83-4.51); Absolute Neutrophil Count 8.8 X10^3/uL (2.0-7.7); Basophil# 0.05 X10^3/uL; Basophil% 0.5 % (0-1); Eosinophil# 0.29 X10^3/uL; Eosinophils% 2.7 % (0-5); Hematocrit 43.5 % (40-54); Hemoglobin 15.5 g/dL (13.0-16.5); Lymphocyte # 0.79 X10^3/ul (0.83-4.51); Lymphocyte % 7.4 % (19-41); Mean Corp Hgb Conc 35.6 g/dL (32-36); Mean Corpuscular Hgb 30.9 pg (27.0-32.0); Mean Corpuscular Volume 86.7 fL (80-94); Mean Platelet Vol. 9.3 fl (6.2-12.0); Monocyte# 0.67 X10^3/uL; Monocyte% 6.3 % (0-10); NRBC Flagged by Analyzer 0 % (0-5); Neutrophil # 8.81 X10^3/uL (2.7-7.7); Neutrophil % 82.8 % (47-70); Platelet Count 227 K/mm3 (150-450); RBC Distribution Width CV 12.3 % (11.6-14.6); RBC Distribution Width SD 38.6 fl (35.1-43.9); Red Blood Count 5.02 M/mm3 (4.6-6.2); White Blood Count 10.6 K/mm3 (4.4-11.0)
[2024-08-30 22:30] VITALS: BP 137/81; PULSE 70; RESP 14; O2SAT 98
--- NOTE | 2024-08-30 22:41 | EDS_ITS ---
HPI History of Present Illness Chief Complaint: Dizziness Informant: patient and spouse/S.O. Narrative Narrative: Patient is a 64-year-old male with past medical history of schizoaffective disorder hypertension hyperlipidemia and type 2 diabetes. He states he has been extremely anxious and having difficulty sleeping. He reports anxiety is chronic for him and he is on Prozac and Wellbutrin. However despite taking these medications he does not feel like his symptoms are improving. He also feels like he will have bouts of dizziness/vertigo and they seem to occur daily whether he is having a strenuous bowel movement or looking up at the ceiling while at work or even trying to work out. He states his anxiety is spiking and as he cannot control that he contacted crisis center and they recommended he come to the hospital for evaluation. The patient denies any homicidal or suicidal ideation and does not feel like he needs inpatient treatment for his anxiety. [facility] Medical History Nausea & vomiting Colon cancer screening Cholelithiasis Wears hearing aid Wears glasses Schizophrenia Anxiety Diabetes Low iron Fatty liver Restless legs Back pain Tic disorder History of diverticulitis Former smoker History of stress test Cardiology follow-up encounter Hypertension History of sarcoidosis Depression Pancreatitis Secondary pulmonary arterial hypertension Atherosclerotic heart disease of [place] coronary artery with other forms of angina pectoris History of non-ST elevation myocardial infarction (NSTEMI) (07/26/20) Essential hypertension Type 2 diabetes mellitus Nausea Fatigue Urinary hesitancy Liver disease Hypoglycemia Hyperlipemia Gout GERD (gastroesophageal reflux disease) Anxiety and depression Bone fracture Anemia History of alcohol abuse Schizoaffective disorder Home Medications ?Medication ?Instructions ?Recorded ?Last Taken ?Type needle (disp) 18 G 18 gauge x 1 #100 ea 05/22/22 Unknown Rx (BD Regular Bevel Sod) nitroglycerin 0.4 mg sublingual 0.4 mg sublingual Q5-15M PRN chest 01/11/24 Unknown Rx tablet (Nitrostat) pain #25 tabs atorvastatin 40 mg tablet 40 mg PO QHS 90 days #90 tabs 01/14/24 Unknown Rx flash glucose scanning reader #1 ea 02/05/24 Unknown Rx (FreeStyle Jean 2 [place]) flash glucose sensor (FreeStyle #1 ea 02/05/24 Unknown Rx Jean 2 Sensor kit) cholecalciferol (vitamin D3) 125 5,000 unit PO DAILY 05/05/24 Unknown History mcg (5,000 unit) tablet (Vitamin D3) coenzyme Q10 100 mg capsule 100 mg PO DAILY because I'm taking 05/05/24 Unknown History (CoQ-10) a statin ferrous sulfate 325 mg (65 mg 325 mg PO DAILY 05/05/24 Unknown History iron) tablet (FeroSul) fluoxetine 40 mg capsule 80 mg PO 1400 05/05/24 Unknown History isosorbide mononitrate 30 mg 60 mg PO 1400,0100 05/05/24 06/03/24 01:33 History tablet,extended release 24 hr metformin 500 mg tablet,extended 1,000 mg PO BID 05/05/24 Unknown History release 24 hr trifluoperazine 2 mg tablet 2 mg PO 0300 For nervous tics. 05/05/24 Unknown History syringe with needle, safety 3 mL #50 ea 05/13/24 Unknown Rx 25 gauge x 1 amlodipine 5 mg tablet 5 mg PO 0400 05/23/24 06/03/24 02:32 History aspirin 81 mg tablet,delayed 81 mg PO 1400 05/23/24 Unknown History release carvedilol 25 mg tablet 25 mg PO 1400,0100 05/23/24 06/03/24 01:33 History magnesium glycinate 100 mg (as 400 mg PO QHS 05/23/24 Unknown History glycinate) tablet (Mag Glycinate) melatonin 10 mg capsule 10 mg PO QHS 05/23/24 Unknown History omega-3-epa 910 mg-fish oil 1,300 2 cap PO DAILY 05/23/24 Unknown History mg capsule,delayed release vitamin B complex 1 tab PO DAILY 05/23/24 Unknown History testosterone cypionate 200 mg/mL 100 mg (0.5 mL) IM Q2W #5 mL 06/09/24 Unknown Rx intramuscular oil quetiapine 25 mg tablet 25 mg PO QHS PRN sleep 07/09/24 Unknown History ondansetron 4 mg disintegrating 4 mg PO TID PRN nausea and 07/18/24 Unknown Rx tablet vomiting #21 tabs semaglutide 0.25 mg or 0.5 mg (2 0.5 mg (0.736 mL) subcut QWEEK #3 08/25/24 Unknown Rx mg/3 mL) subcutaneous pen injector mL (Ozempic) omeprazole 20 mg capsule,delayed 20 mg PO QDAY #30 caps 08/28/24 Unknown Rx release diazepam 5 mg tablet (Valium) 5 mg PO TID PRN dizziness or 08/31/24 Unknown Rx vertigo 5 days #15 tabs quetiapine 25 mg tablet (Seroquel) 25 mg PO QHS PRN insomnia #15 tabs 08/31/24 Unknown Rx Allergy/AdvReac Type Severity Reaction Status Date / Time Penicillins (PCN) Allergy Other Verified 08/30/24 20:31 lisinopril AdvReac cough Verified 08/30/24 20:31 spironolactone AdvReac elevated Verified 08/30/24 20:31 blood sugar Family History Other CVA (cerebral vascular accident) Cancer Depression with anxiety Diabetes FH: mental illness Hyperlipemia Hypertension Osteoporosis Surgical History Hx of colonoscopy History of left heart catheterization (11/02/21) History of coronary artery stent placement (07/26/20) History of cataract surgery History of placement of ear tubes History of tonsillectomy History of amputation of finger Social History Smoking Status: Former smoker quit date: 10/29/05 Tobacco: How many years used: 15 alcohol intake: former year quit: 2014 substance use type: does not use caffeine: Yes Type: carbonated beverages and coffee what type of physical activity do you participate in: walking ROS ROS ED Constitutional Constitutional ED: Denies chills or fever(s) Eyes Eyes: Denies blurry vision or change in vision ENT ENT ED: Denies ear pain or sore throat Cardiovascular Cardiovascular: Denies chest pain, palpitations or racing heartbeat Respiratory/Chest Respiratory/Chest: Denies cough or dyspnea Gastrointestinal Gastrointestinal: Reports nausea; Denies abdominal pain, diarrhea or vomiting Genitourinary Genitourinary ED: Denies dysuria Musculoskeletal Musculoskeletal: Denies neck pain Integumentary Denies rash Neurologic Neurologic: Reports other Details: Positive dizziness ; Denies headache(s) Psychiatric Psychiatric: Reports anxiety; Denies suicidal ideation or suicidal thoughts Hematologic/Lymphatic Hematologic/Lymphatic: Denies easy bleeding or easy bruising EXAM Physical Exam Const Vital Signs: 08/30/24 20:31 08/30/24 22:30 08/31/24 00:00 Temperature 97.9 F Temperature Source Oral Pulse Rate 90 70 68 Respiratory Rate 18 14 15 Blood Pressure 168/93 H 137/81 H 134/84 H Blood Pressure Mean 118 99 100 Pulse Ox 99 98 99 Oxygen Delivery Method Room Air Room Air Room Air 08/31/24 01:11 EDT Temperature 98.0 F Temperature Source Pulse Rate 67 Respiratory Rate 18 Blood Pressure 134/84 H Blood Pressure Mean 100 Pulse Ox 97 Oxygen Delivery Method Positive well nourished, well developed and obese General Appearance ED: well developed; Negative for pallor Nutritional Appearance: obese HEENT Reports moist mucous membranes HEENT Narrative: Normocephalic atraumatic Bilateral canals and TMs are normal Eyes PERRL and EOMs intact bilaterally General Eye ED: Negative for scleral icterus Neck supple Neck Narrative: No carotid bruit noted Resp normal respiratory effort and clear to auscultation bilaterally Cardio regular rate and regular rhythm Rate: other Other Details: Regular rate and rhythm without murmurs rubs or gallops Radial and carotid pulses are equal and symmetric GI normal to inspection, nondistended, normoactive bowel sounds, non-tender, non- distended and no masses Auscultation: normoactive bowel sounds Palpation: soft Extremity normal to inspection Neuro oriented x3, CN's II-XII intact bilaterally and no sensory deficits noted Neuro Narrative: GCS of 15 Cranial nerves II through XII are grossly intact without focal neurologic deficit No pronator drift no dysmetria no truncal ataxia No nystagmus noted NIH stroke scale score of 0 Sensorium / Orientation: alert Motor Exam: strength 5/5 throughout Psych Psych Narrative: Patient has a nervous/anxious affect without homicidal or suicidal ideation Skin no rashes or lesions noted and skin turgor normal General Skin Exam: Negative for jaundice or pallor MDM MDM MDM Narrative Medical decision making narrative: Patient presented to the ER with stable vitals. He had a normal neurologic exam no ataxia no truncal ataxia no nystagmus and therefore felt no need for head CT or CTA of the head and neck. He reports insomnia and recurrent anxiety but denies homicidal or suicidal ideation and I do not feel that this warrants inpatient psychiatric admission. In order to ensure that his dizziness is not related to acute blood loss anemia acute kidney injury or severe electrolyte abnormality basic blood work was obtained. The patient was also given oral Valium as this could help both dizziness/vertigo and anxiety. Labs revealed no clinically significant findings and after receiving his medications he reported feeling much better and denied homicidal or suicidal ideation. In order to help with sleep I did elect to start him on Seroquel which he states he has been on in the past. At this time as he has a normal neurologic exam improvement of symptoms with prescribed medication and negative workup I do not feel there is need for further testing he is otherwise safe for discharge History & Record Review Discussion w/independent historian: Patient and Significant other Lab Data Attestation: I reviewed the patient's lab results. Labs: Laboratory Results - last 24 hr 08/30/24 20:46 WBC 10.6 RBC 5.02 Hgb 15.5 Hct 43.5 MCV 86.7 MCH 30.9 MCHC 35.6 RDW Std Deviation 38.6 RDW Coeff of [place] 12.3 Plt Count 227 MPV 9.3 Immature Gran % (Auto) 0.300 Neut % (Auto) 82.8 H Lymph % (Auto) 7.4 L [place] % (Auto) 6.3 Eos % (Auto) 2.7 Baso % (Auto) 0.5 Absolute Neuts (auto) 8.8 H Absolute Lymphs (auto) 0.79 L Nucleated RBC % 0 Sodium 134 L Potassium 3.7 Chloride 99 Carbon Dioxide 27.0 Anion Gap 8 BUN 26 H Creatinine 0.95 Estim Creat Clear Calc 106.71 Est GFR (MDRD) Af Amer 103 Est GFR (MDRD) Non-Af 86 BUN/Creatinine Ratio 27.4 H Glucose 121 H Calcium 10.0 Magnesium 2.5 TSH 4.320 H Discharge Plan Triage Chief Complaint: Dizziness Other Complaint: Anxiety ED Provider: Bridger Han Dx/Rx/DC Orders Clinical Impression: Anxiety, Vertigo, Insomnia, Schizoaffective disorder, Type 2 diabetes mellitus, Essential hypertension Instructions: ED Insomnia, ED Vertigo, Unspecified Prescriptions: New diazepam [Valium] 5 mg tablet 5 mg PO TID PRN (Reason: dizziness or vertigo) 5 Days Qty: 15 0RF quetiapine [Seroquel] 25 mg tablet 25 mg PO QHS PRN (Reason: insomnia) Qty: 15 0RF No Action fluoxetine 40 mg capsule 80 mg PO 1400 cholecalciferol (vitamin D3) [Vitamin D3] 125 mcg (5,000 unit) tablet 5,000 unit PO DAILY isosorbide mononitrate 30 mg tablet extended release 24 hr 60 mg PO 1400,0100 trifluoperazine 2 mg tablet 2 mg PO 0300 Patient Comments: I tried to get completely off of it, but I started getting nervous tics when I got lower than 2mg/day. I no longer need it, but since I have been on it for over 36 years, it's very difficult to stop. ferrous sulfate [FeroSul] 325 mg (65 mg iron) tablet 325 mg PO DAILY metformin 500 mg tablet extended release 24 hr 1,000 mg PO BID coenzyme Q10 [CoQ-10] 100 mg capsule 100 mg PO DAILY quetiapine 25 mg tablet 25 mg PO QHS PRN (Reason: sleep) vitamin B complex Tablet 1 tab PO DAILY [id number] oil 910-1,300 mg capsule,delayed release(DR/EC) 2 cap PO DAILY melatonin 10 mg capsule 10 mg PO QHS Mag Glycinate 100 mg tablet 400 mg PO QHS carvedilol 25 mg tablet 25 mg PO 1400,0100 amlodipine 5 mg tablet 5 mg PO 0400 aspirin 81 mg tablet,delayed release (DR/EC) 81 mg PO 1400 ondansetron 4 mg tablet,disintegrating 4 mg PO TID PRN (Reason: nausea and vomiting) Qty: 21 0RF (DME) needle (disp) 18 G [BD Regular Bevel Sod] 18 gauge x 1 needle See Rx Instructions .Route Qty: 100 0RF Rx Instructions: As directed nitroglycerin [Nitrostat] 0.4 mg tablet, sublingual 0.4 mg sublingual Q5-15M PRN (Reason: chest pain) Qty: 25 3RF Rx Instructions: do not exceed 3 doses per episode atorvastatin 40 mg tablet 40 mg PO QHS 90 Days Qty: 90 3RF (DME) FreeStyle Jean 2 Sensor Kit See Rx Instructions .Route Qty: 1 11RF Rx Instructions: As directed (DME) FreeStyle Jean 2 [place] Misc See Rx Instructions .Route Qty: 1 1RF Rx Instructions: As directed (DME) syringe with needle, safety 3 mL 25 gauge x 1 syringe See Rx Instructions .Route Qty: 50 0RF Rx Instructions: As directed testosterone cypionate 200 mg/mL oil 100 mg IM Q2W Qty: 5 5RF Rx Instructions: PLEASE dispense as five 1ml vials Ozempic 0.25 mg or 0.5 mg (2 mg/3 mL) pen injector 0.5 mg subcut QWEEK Qty: 3 1RF Rx Instructions: for 4 weeks omeprazole 20 mg capsule,delayed release(DR/EC) 20 mg PO QDAY Qty: 30 0RF Primary Care Provider: Caryl Turner Referrals: Caryl Turner MD [Primary Care Provider] - Activity Restrictions/Additional Instructions: Please talk to your family doctor about a referral to neurology because of your recurrent dizziness/vertigo and or potential carotid duplex/ultrasound to ensure there is no signs of carotid blockage as a cause of your symptoms. Return to the ER should you have any further concerns Print Language: Nepalese Disposition Disposition: Home, Self Care Discharge Date/Time: 08/30/24 23:59
[2024-08-30 22:49] LABS: Anion Gap 8 (5-15); BUN 26 mg/dL (7-18); BUN/Creat Ratio 27.4 RATIO (10-20); Chloride 99 mmol/L (98-107); Creatinine, Serum 0.95 mg/dL (0.70-1.30); EST Glomerular Filtration Rate 86 mL/min (>60); Est Glom Filt Rate - Afr Amer 103 mL/min (>60); Estimated Creatinine Clearance 106.71 ml/min; Glucose 121 mg/dL (74-106); Magnesium 2.5 mg/dL (1.6-2.6); Potassium 3.7 mmol/L (3.5-5.1); Sodium Level 134 mmol/L (136-145)
[2024-08-31] VITALS: BP 134/84; PULSE 68; RESP 15; O2SAT 99
[2024-08-31] MEDS: QUEtiapine 25 MG Tablet PO (01:08)
[2024-08-31 01:11] VITALS: BP 134/84; PULSE 67; RESP 18; TEMP 36.7; O2SAT 97
== END 2024-08-30 23:59 | disposition home or self-care (01) ==
PROVIDERS: Emergency Provider Emergency Medicine; PCP Internal Medicine; Visit Provider Emergency Medicine
DX: F41.9 Anxiety disorder, unspecified (principal); F25.9 Schizoaffective disorder, unspecified; E11.9 Type 2 diabetes mellitus without complications; R42 Dizziness and giddiness; I10 Essential (primary) hypertension; G47.00 Insomnia, unspecified; I25.10 Atherosclerotic heart disease of native coronary artery without angina pectoris; I25.2 Old myocardial infarction; Z87.891 Personal history of nicotine dependence; Z95.5 Presence of coronary angioplasty implant and graft
CPT/HCPCS: 80048; 83735; 84443; 85025; 99283; J7030; A4216

== ENCOUNTER → 2024-09-26 | Outpatient (CLI) | payer MEDICARE, SELFPAY ==
--- NOTE | 2024-09-26 09:02 | RAD_ITS ---
EXAM: XR RIGHT ELBOW COMPLETE, 3 OR MORE VIEWS CLINICAL INDICATION: Right elbow pain TECHNIQUE: Frontal, lateral and oblique views of the right elbow. COMPARISON: No relevant prior studies available. FINDINGS: BONES/JOINTS: No acute fracture, subluxation or joint effusion. No joint space narrowing. Olecranon process enthesopathy is noted. SOFT TISSUES: Normal. No soft tissue swelling or gas. No radiopaque foreign body. RAD/Elbow min 3 Views IMPRESSION: No acute abnormality. Electronically Signed: Kayden White MD at 9:19 EST ,
== END | disposition home or self-care (01) ==
LOC: MTRAD 09:02
PROVIDERS: PCP Internal Medicine; Referring Provider Physician Assistant Surgical; Visit Provider Physician Assistant Surgical
DX: M77.8 Other enthesopathies, not elsewhere classified (principal)
CPT/HCPCS: 73080

== ENCOUNTER → 2024-10-27 | Outpatient (CLI) | payer MEDICARE, SELFPAY ==
--- NOTE | 2024-10-27 13:52 | ECHOD_ITS ---
Version 2 Reason For Study: PALPS Procedure This was a 2D Doppler, Color Flow transthoracic echocardiogram. Exam performed in department. Left Ventricle Normal LV size. Mild concentric left ventricular hypertrophy. Left ventricular systolic function is normal. The left ventricular ejection fraction is 55 %. No regional wall motion abnormalities noted. Right Ventricle Normal RV size. Normal systolic function. Atria Normal left atrium. Normal right atrium. Mitral Valve There is moderate mitral annular calcification. Tricuspid Valve Normal tricuspid valve. Aortic Valve The aortic valve is not well visualized. Pulmonic Valve Normal pulmonic valve. Great Vessels Normal aortic root. The pulmonary artery is normal size. Inferior vena cava collapse with respiration. Pericardium/Pleural No pericardial effusion. MMode/2D Measurements & Calculations LVIDd: 4.2 cm IVSd: 1.2 cm LVOT diam: 2.0 cm LVIDs: 2.9 cm LVPWd: 1.5 cm LVOT area: 3.1 cm2 FS: 31.9 % Ao root diam: 3.4 cm LAV(MOD-bp): 52.9 ml LVAd ap4: 32.6 cm2 LAV(MOD-bp) Indexed: 21.8 ml/m2 LVLd ap4: 8.5 cm LAV(MOD-sp2): 53.8 ml EDV(MOD-sp4): 108.3 ml LAV(MOD-sp4): 51.0 ml EDV(sp4-el): 105.9 ml LVAs ap4: 15.3 cm2 LVLs ap4: 6.9 cm ESV(MOD-sp4): 30.0 ml ESV(sp4-el): 28.9 ml EF(MOD-sp4): 72.3 % EF(sp4-el): 72.7 % SV(MOD-sp4): 78.3 ml SV(sp4-el): 77.0 ml LA A4 area: 17.8 cm2 SI(MOD-sp4): 32.3 ml/m2 LA dimension(2D): 4.1 cm RA A4 area: 10.4 cm2 Time Measurements MV dec time: 0.22 sec Doppler Measurements & Calculations MV E max [place]: 109.2 cm/sec Lat Peak E' [place]: 9.4 cm/sec Med Peak E' [place]: 8.1 cm/sec MV A max [place]: 102.5 cm/sec E/E' lat: 11.6 E/E' med: 13.5 MV E/A: 1.1 MV V2 max: 109.0 cm/sec Ao V2 max: 127.6 cm/sec MV max P.8 mmHg MV dec slope: 506.2 cm/sec2 Ao max P.5 mmHg MV V2 mean: 74.2 cm/sec Ao V2 mean: 87.2 cm/sec MV mean P.4 mmHg Ao mean P.6 mmHg MV V2 VTI: 36.4 cm Ao V2 VTI: 28.9 cm AV (velocity ratio): 0.81 MVA(VTI): 2.0 cm2 CYNTHIA(I,D): 2.5 cm2 CYNTHIA(V,D): 2.7 cm2 LV V1 max: 113.6 cm/sec SV(LVOT): 71.8 ml PA V2 max: 93.4 cm/sec LV V1 max P.2 mmHg PA V2 mean: 68.6 cm/sec LV V1 mean P.7 mmHg LV V1 mean: 76.0 cm/sec LV V1 VTI: 23.4 cm ECHO/Echo Complete Interpretation Summary Normal LV size. Mild concentric left ventricular hypertrophy. Left ventricular systolic function is normal. The left ventricular ejection fraction is 55 %. Ordering Physician: Zachery Dickey Referring Physician: Zachery Dickey Performed By: Ting Raphael RCS
== END | disposition home or self-care (01) ==
LOC: CVS 13:52
PROVIDERS: PCP Internal Medicine; Referring Provider Nurse Practitioner Family; Visit Provider Nurse Practitioner Family
DX: R00.2 Palpitations (principal); Z95.5 Presence of coronary angioplasty implant and graft
CPT/HCPCS: 93306

== ENCOUNTER 2024-10-30 13:00 | Outpatient (RCR) | payer OTHER, SELFPAY ==
--- NOTE | 2024-10-08 13:57 | HP.OTEVAL ---
Patient's Visit Information Visit Information Visit Information: ALIX LEE is a 64 year old M, referred to Occupational Therapy by JAME Mcgrath, with a diagnosis of R elbow tendinitis. Date of Evaluation: 10/08/24 Occupational Therapist: Manasa Castro Subjective Subjective: This 64 year old male arrives with dx of R elbow tendinopathy. Pain started after vacuuming at work per pt mid August which worsened with length of time. pt states pain progressively got worse. Pt took course of prednisone which ended approx 2-3 days ago which pt states significantly helped with pain. Pt has been taking ibuprofen as well as Tylenol as needed. Pt is R hand dominant. Has not yet tried bracing. pt is still working at this time working 5 hours a day M and Tu 5 hours wed 3 hours thurs and fri 5 hours. Pain R elbow: Current Pain Intensity: 2 Pain Intensity Range: 6 Objective Objective/Observation: pt arrives able to complete mobility back to OT section no bracing on typical arm swing with mobility does not gaured arm. 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 Edema Other: none Sensation Sensation Comments: denies Quick DASH-Disab of Arm,Shoulder& Hand Quick DASH Score: 25.0000 Goals Goal:ROM equal to unaffected hand: Yes Goal:[place] Crane Operator/Pinch strength at least 75% of unaffected hand: Yes Goal:No pain with affected hand use: Yes Goal:Full use of affected hand in daily activities including work: Yes Other Goal: pt will improve forearm supination equal to non affected UE in order to return to PLOF Pt will improve quick dash score by 5 points or more in order to improve overall functional use of RUE pt will verbalize/ demonstrate 100% accuracy in proper bracing options for R elbow pain by third session Rehabilitation General Assessment: This 64 year old male arrives with dx of R elbow tendonitis. Pt presents with pain in R elbow radiating into tricep as well as extensor mech, limited ROM of R forearm as well as decreased strength in stress position. Pt would benefit from OT services 3x a week for 4-6 weeks in order to decrease pain, improve ROM, improve strength, provide ed and training in joint positioning and protection as well as assure proper brace wear for return to PLOF. Rehabilitation Potential: Good Anticipated Interventions Anticipated Interventions: A/AAROM/PROM, Strengthening, Triggerpoint Release, Modalities, Orthoses, Joint Protection/Energy Conservation, Education re Diagnosis and Home Program Visit Plan Frequency: 3x /Week Duration: 4-6 Weeks General Plan: pain management stretch strengthen bracing TEXT: Thank you for the opportunity to evaluate your patient. For Medicare and Medicare HMO plans, please review the plan of care and approve it. It will need to be FAXED BACK to us at [phone] for Medicare purposes. Please let me know if there are questions or concerns regarding this plan of care. Physician Signature: Date:
--- NOTE | 2025-02-05 09:29 | HP.OT.NRP ---
Patient Information Patient Information: ALIX LEE was seen in my office for initial evaluation on 10/08/24. The following Plan of Care was established for this patient: POC Established Initial Frequency: 3x /Week Initial Duration: 4-6 Weeks Plan: work toward eccentric exercise Anticipated Interventions Anticipated Interventions: A/AAROM/PROM, Strengthening, Triggerpoint Release, Modalities, Orthoses, Joint Protection/Energy Conservation, Education re Diagnosis and Home Program Last Seen Last Seen: This patient was last seen in our office 10/30/24. Pertinent comments regarding their Occupational therapy will appear below: This 64 year old male seen by OT for dx of R elbow tendinitis. Pt with progress made in strength ROM and reduction in pain. pt rates his improvement as 100% last time seen. discharge from OT caseload at this time due to lapse in time of services and no additional visits scheduled at this time. At this point I will be discontinuing this patient from occupational therapy. I would be happy to see this patient again in the future if found appropriate by the physician. Thank you! Manasa Castro
== END 2024-10-30 19:00 | disposition home or self-care (01) ==
LOC: OT 13:00
PROVIDERS: PCP Internal Medicine; Visit Provider Physician Assistant Surgical
DX: M77.8 Other enthesopathies, not elsewhere classified (principal)
CPT/HCPCS: 97035; 97110; 97140; 97165; 97530

== ENCOUNTER 2024-11-07 06:29 | Day surgery (SDC) | payer MEDICARE, SELFPAY ==
--- NOTE | 2024-11-06 10:38 | PAT.ANESEVAL ---
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 When Was Last Pacemaker Check QUESTION #4 FULL TEXT: You/Your Family Experience fever (hyperthermia) with Anesthesia Last Oral Intake Last Oral intake: Last Oral Intake NPO since Meds taken in AM with sips of water? Meds patient instructed to take am of surgery PONV PONV - rodent exterminator: PONV - rodent exterminator Female No 11/06/24 09:54 HX of Motion Sickness No 11/06/24 09:54 HX of N/V After Surgery No 11/06/24 09:54 Non-Smoker Yes 11/06/24 09:54 Duration of Surgery greater No 11/06/24 09:54 than 60 minutes Number of Risk Factors 1 11/06/24 09:54 PONV Score Low Risk 11/06/24 09:54 Height & Weight Height & Weight: Anesthesia: Height & Weight Height 6 ft 1 in 10/14/24 13:35 Respiratory Assessment Respiratory Assessment - rodent exterminator: Respiratory Tract Infection Hx - rodent exterminator Hx Respiratory Tract Infection No 11/06/24 09:54 STOP Sleep Apnea STOP Sleep Apnea - rodent exterminator: STOP Sleep Apnea - rodent exterminator Hx Hypertension Yes: CONTROLLED WITH MEDS 11/06/24 09:54 Hx Sleep Apnea No 11/06/24 09:54 CPAP BIPAP Do you snore loudly (louder No 11/06/24 09:54 than talking or can be heard Do you often feel tired/ No 11/06/24 09:54 fatigued/ sleepy during daytime? Has anyone observed you stop No 11/06/24 09:54 breathing during sleep? STOP Results Negative 11/06/24 09:54 QUESTION #5 FULL TEXT : Do you snore loudly (louder than talking or can be heard through closed doors)? 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 Specify any problems Hx of Preganancy in last 3 N/A 11/06/24 09:54 Months Nurse Filling Out Transfusion [facility] 11/06/24 09:54 & Questions: Date: 11/06/24 11/06/24 09:54 Time: 10:08 11/06/24 09:54 Patient unable to answer at this time (ie. confused, unrespo /Reproduction History /Reproductive History - rodent exterminator: /Reproductive Hx- rodent exterminator Hx Now Gestational Age (in weeks): EDC: Hx Hx Para Hx Section SAB No 09/26/24 08:31 [facility] Medical History (Updated 11/06/24 @ 10:06 by Zarina Stern) Alcohol use Bruising High cholesterol Gastric reflux History of Holter monitoring History of echocardiogram Nausea & vomiting Colon cancer screening Wears hearing aid Wears glasses Schizophrenia Anxiety Diabetes Low iron Fatty liver Restless legs Back pain Tic disorder History of diverticulitis Former smoker History of stress test Cardiology follow-up encounter Hypertension Cholelithiasis History of sarcoidosis Depression Pancreatitis Secondary pulmonary arterial hypertension Atherosclerotic heart disease of [place] coronary artery with other forms of angina pectoris History of non-ST elevation myocardial infarction (NSTEMI) (07/26/20) Essential hypertension Type 2 diabetes mellitus Nausea Fatigue Urinary hesitancy Liver disease Hypoglycemia Hyperlipemia Gout GERD (gastroesophageal reflux disease) Anxiety and depression Bone fracture Anemia History of alcohol abuse Schizoaffective disorder Home Medications ?Medication ?Instructions ?Recorded ?Last Taken ?Type needle (disp) 18 G 18 gauge x 1 #100 ea 05/22/22 Unknown Rx (BD Regular Bevel [place]) nitroglycerin 0.4 mg sublingual 0.4 mg sublingual Q5-15M PRN chest 01/11/24 Unknown Rx tablet (Nitrostat) pain #25 tabs flash glucose scanning reader #1 ea 02/05/24 Unknown Rx (FreeStyle Jean 2 [place]) flash glucose sensor (FreeStyle #1 ea 02/05/24 Unknown Rx Jean 2 Sensor kit) cholecalciferol (vitamin D3) 125 5,000 unit PO DAILY 05/05/24 Unknown History mcg (5,000 unit) tablet (Vitamin D3) coenzyme Q10 100 mg capsule 100 mg PO DAILY because I'm taking 05/05/24 Unknown History (CoQ-10) a statin ferrous sulfate 325 mg (65 mg 325 mg PO DAILY 05/05/24 Unknown History iron) tablet (FeroSul) metformin 500 mg tablet,extended 1,000 mg PO BID 05/05/24 Unknown History release 24 hr trifluoperazine 2 mg tablet 2 mg PO 0300 For nervous tics. 05/05/24 Unknown History syringe with needle, safety 3 mL #50 ea 05/13/24 Unknown Rx 25 gauge x 1 amlodipine 5 mg tablet 5 mg PO DAILY 05/23/24 06/03/24 02:32 History aspirin 81 mg tablet,delayed 81 mg PO 1400 05/23/24 Unknown History release omega-3-epa 910 mg-fish oil 1,300 2 cap PO DAILY 05/23/24 Unknown History mg capsule,delayed release vitamin B complex 1 tab PO DAILY 05/23/24 Unknown History testosterone cypionate 200 mg/mL 100 mg (0.5 mL) IM Q2W #5 mL 06/09/24 Unknown Rx intramuscular oil semaglutide 0.25 mg or 0.5 mg (2 0.5 mg (0.736 mL) subcut QWEEK #3 08/25/24 10/29/24 Rx mg/3 mL) subcutaneous pen injector mL (Ozempic) isosorbide mononitrate 60 mg 60 mg PO BID 09/05/24 Unknown History tablet,extended release 24 hr magnesium glycinate 100 mg (as 100 mg PO QHS 09/05/24 Unknown History glycinate) tablet (Mag Glycinate) melatonin 10 mg capsule 10 mg PO QHS PRN sleep 09/05/24 Unknown History omeprazole 20 mg capsule,delayed 20 mg PO BID 09/05/24 Unknown History release carvedilol 25 mg tablet 25 mg PO BID #180 tabs 10/23/24 Unknown Rx atorvastatin 40 mg tablet 40 mg PO QHS 90 days #90 tabs 10/27/24 Unknown Rx escitalopram oxalate 5 mg tablet 5 mg PO DAILY 11/06/24 Unknown History (Lexapro) venlafaxine 37.5 mg 37.5 mg PO DAILY 11/06/24 Unknown History capsule,extended release 24 hr Allergy/AdvReac Type Severity Reaction Status Date / Time Penicillins (PCN) Allergy Other Verified 10/16/24 15:44 lisinopril AdvReac cough Verified 10/16/24 15:44 spironolactone AdvReac elevated Verified 10/16/24 15:44 blood sugar Family History Other CVA (cerebral vascular accident) Cancer Depression with anxiety Diabetes FH: mental illness Hyperlipemia Hypertension Osteoporosis Surgical History (Updated 11/06/24 @ 10:06 by Zarina Stern) History of cardiac catheterization History of cholecystectomy Hx of colonoscopy History of left heart catheterization (11/02/21) History of coronary artery stent placement (07/26/20) History of cataract surgery History of placement of ear tubes History of tonsillectomy History of amputation of finger Social History Smoking Status: Former smoker quit date: 10/29/05 Tobacco: How many years used: 15 alcohol intake: former year quit: 2014 substance use type: does not use caffeine: Yes Type: carbonated beverages and coffee what type of physical activity do you participate in: walking Audit: Pertinent Findings Pertinent Findings EKG Perinent findings: 09/05/2024 sinus rhythm rate of 63 bpm Stress test pertinent findings: 05-17 negative EF 59% Echo (EF%) pertinent findings: 10/27/2024 normal size mild LVH ejection fraction 55% Consult pertinent findings: Cardiology 09/05/2024 palpitations history of coronary artery stent placement 07/26/2020 hypertension type 2 diabetes stable Pulmonary function results/spirometer pertinent findings: 11/26/2020 isolated mild restrictive ventilatory impairment could be secondary to patient's body habitus chest x-ray 02/16/2024 no acute processes Recommendation Anesthesia Recommendation Anesthesia recommendation: OPTIMIZED for anesthesia
[2024-11-07] VITALS (9 sets, daily range): BP systolic 80–140; BP diastolic 63–117; PULSE 60–73; RESP 16; TEMP 36–36.9; O2SAT 93–100; BMI 34.3
--- NOTE | 2024-11-07 06:55 | PCM.HP.BLA ---
History and Physical Date of Admission: 11/07/24 Intake Vital Signs 09/05/2413:01 09/26/2408:31 10/14/2413:35 Height 6 ft 1 in 6 ft 1 in 6 ft 1 in Weight: 266 lb BMI 35.1 BP 128/74 H Blood Pressure Location Rt brachial Position Sitting Respiration 18 Pulse 80 Pulse Source Monitor Temp 98.2 F Temp Source Temporal Pulse Oximetry (%) 99 Oxygen Delivery Method room air Intake Visit Reasons: COLONOSCOPY Chief Complaint: colonoscopy Is patient in pain?: No Allergies Penicillins (PCN) Allergy (Verified 10/14/24 13:36) Otherlisinopril Adverse Reaction (Verified 10/14/24 13:36) coughspironolactone Adverse Reaction (Verified 10/14/24 13:36) elevated blood sugar Medications ?Medication ?Instructions ?Recorded ?Confirmed ?Type needle (disp) 18 G 18 gauge x 1 #100 ea 05/22/22 10/14/24 Rx (BD Regular Bevel [place]) nitroglycerin 0.4 mg sublingual 0.4 mg sublingual Q5-15M PRN chest 01/11/24 10/14/24 Rx tablet (Nitrostat) pain #25 tabs atorvastatin 40 mg tablet 40 mg PO QHS 90 days #90 tabs 01/14/24 10/14/24 Rx flash glucose scanning reader #1 ea 02/05/24 10/14/24 Rx (FreeStyle Jean 2 [place]) flash glucose sensor (FreeStyle #1 ea 02/05/24 10/14/24 Rx Jean 2 Sensor kit) cholecalciferol (vitamin D3) 125 5,000 unit PO DAILY 05/05/24 10/14/24 History mcg (5,000 unit) tablet (Vitamin D3) coenzyme Q10 100 mg capsule 100 mg PO DAILY because I'm taking 05/05/24 10/14/24 History (CoQ-10) a statin ferrous sulfate 325 mg (65 mg 325 mg PO DAILY 05/05/24 10/14/24 History iron) tablet (FeroSul) fluoxetine 40 mg capsule 80 mg PO 1400 05/05/24 10/14/24 History metformin 500 mg tablet,extended 1,000 mg PO BID 05/05/24 10/14/24 History release 24 hr trifluoperazine 2 mg tablet 2 mg PO 0300 For nervous tics. 05/05/24 10/14/24 History syringe with needle, safety 3 mL #50 ea 05/13/24 10/14/24 Rx 25 gauge x 1 amlodipine 5 mg tablet 5 mg PO 0400 05/23/24 10/14/24 History aspirin 81 mg tablet,delayed 81 mg PO 1400 05/23/24 10/14/24 History release carvedilol 25 mg tablet 25 mg PO 1400,0100 05/23/24 10/14/24 History omega-3-epa 910 mg-fish oil 1,300 2 cap PO DAILY 05/23/24 10/14/24 History mg capsule,delayed release vitamin B complex 1 tab PO DAILY 05/23/24 10/14/24 History testosterone cypionate 200 mg/mL 100 mg (0.5 mL) IM Q2W #5 mL 06/09/24 10/14/24 Rx intramuscular oil semaglutide 0.25 mg or 0.5 mg (2 0.5 mg (0.736 mL) subcut QWEEK #3 08/25/24 10/14/24 Rx mg/3 mL) subcutaneous pen injector mL (Ozempic) diazepam 5 mg tablet (Valium) 5 mg PO TID PRN dizziness or 08/31/24 10/14/24 Rx vertigo 5 days #15 tabs isosorbide mononitrate 60 mg 60 mg PO BID 09/05/24 10/14/24 History tablet,extended release 24 hr magnesium glycinate 100 mg (as 100 mg PO QHS 09/05/24 10/14/24 History glycinate) tablet (Mag Glycinate) melatonin 10 mg capsule 10 mg PO QHS PRN 09/05/24 10/14/24 History omeprazole 20 mg capsule,delayed 20 mg PO BID 09/05/24 10/14/24 History release methylprednisolone 4 mg tablets in See Rx Instructions PO PER PKG DIR 09/27/24 10/14/24 Rx a dose pack (Medrol (Mark)) #21 tabs PFSH Medical History Nausea & vomiting Colon cancer screening Cholelithiasis Wears hearing aid Wears glasses Schizophrenia Anxiety Diabetes Low iron Fatty liver Restless legs Back pain Tic disorder History of diverticulitis Former smoker History of stress test Cardiology follow-up encounter Hypertension History of sarcoidosis Depression Pancreatitis Secondary pulmonary arterial hypertension Atherosclerotic heart disease of [place] coronary artery with other forms of angina pectoris History of non-ST elevation myocardial infarction (NSTEMI) (07/26/20) Essential hypertension Type 2 diabetes mellitus Nausea Fatigue Urinary hesitancy Liver disease Hypoglycemia Hyperlipemia Gout GERD (gastroesophageal reflux disease) Anxiety and depression Bone fracture Anemia History of alcohol abuse Schizoaffective disorder Surgical History History of cholecystectomy Hx of colonoscopy History of left heart catheterization (11/02/21) History of coronary artery stent placement (07/26/20) History of cataract surgery History of placement of ear tubes History of tonsillectomy History of amputation of finger Family History Other CVA (cerebral vascular accident) Cancer Depression with anxiety Diabetes FH: mental illness Hyperlipemia Hypertension Osteoporosis Social History Smoking Status: Former smoker quit date: 10/29/05 Tobacco: How many years used: 15 alcohol intake: former year quit: 2014 substance use type: does not use caffeine: Yes Type: carbonated beverages and coffee what type of physical activity do you participate in: walking HPI HPI HPI: Patient is a 64-year-old male here for screening colonoscopy. His last colonoscopy was 11 years ago. He denies abdominal pain or blood in the stool. He reports that he has been having constipation since his cholecystectomy but this was also the time he started his Ozempic. ROS General General: Yes fatigue; No weight change, appetite, colon cancer, breast cancer or weakness HEENT HEENT: Yes eye injury and eye surgery; No difficulty swallowing, swollen glands or hoarseness Endo Endocrine: Yes diabetes mellitus; No thyroid disease, thyroid cancer, Hair loss, heat intolerance or cold intolerance Skin Skin: No rash or changing moles Musc Musculoskeletal: Yes back problems; No arthritis, rheumatoid arthritis, gout or joint pain Cardio Cardiovascular: Yes heart disease, high blood pressure, heart attack and heart stent; No murmur, pacemaker, atrial fibrillation, palpitations, shortness of breat with exertion or chest pain Psych Psychiatric: Yes depression and anxiety; No hearing voices Resp Respiratory: Yes shortness of breath, No sleep apnea, No cough, No COPD, No asthma, No emphysema and No wheezing Gastro Gastrointestinal: Yes abdominal pain, Yes nausea or vomiting, Yes diarrhea, Yes constipation, Yes hemorrhoids and Yes gallbladder problem [place] Hematologic: Yes blood thinners Additional Details: aspirin Neuro Neurologic: Yes numbness, Yes tingling and No weakness Exam Const General: cooperative Orientation: alert and oriented x3 HENMT Head: normal to inspection Neck Neck: normal visual inspection and full ROM Chest Chest palpation & inspection: normal inspection of the chest Resp Effort & Inspection: normal respiratory effort Auscultation: clear to auscultation bilaterally Cardio Rate: regular rate Rhythm: regular rhythm GI Inspection: non-distended Palpation: soft and nontender Skin General: no rashes or lesions noted Neuro General: patient alert and patient oriented x3 Extrem General: full ROM Psych Appearance: grossly normal Mental Status: mental status grossly normal Assessment and Plan Assessment and Plan (1) Colon cancer screening: Status: Acute Plan: The patient is due for colonoscopy. He reports that he has been having some constipation but I believe this may be due to his Ozempic. I will have his hold his Ozempic and aspirin for 5 days prior to the procedure. I explained endoscopy in detail to the patient. I explained the risks including but not limited to stroke or heart attack with anesthesia, perforation of the GI tract, bleeding, infection. I explained that any of these could necessitate further emergency surgery. The patient understands and all questions were answered sufficiently. The patient wishes to proceed with procedure. Dimitry Camp MD Pager: [facility] [address] [place] [address], [address] [place] [address] Office: I have seen and examined the patient and reviewed the H&P. There are no changes
[2024-11-07 07:17] LABS: Bedside Glucose 134 mg/dL (74-106)
--- NOTE | 2024-11-07 07:33 | PCM.PRE.AN2 ---
ASA Classification* ASA Classification ASA Classification: 3 Assessment & Plan Anesthesia* Anesthesia Assessment Anesthesia Assessment: Discussed sedation and/or anesthesia options, risks, benefits, and alternatives with patient/parents/legal guardian/POA. Questions invited. The patient/parents/legal guardian/POA seems to understand and agrees to proceed with anesthesia plan. Reviewed the physical assessment, medical history, allergy history and patient home medications list prior to surgery/procedure/anesthetic and documented any changes. Performed airway and anesthesia risk assessments. Anesthesia Type Anesthesia Type: MAC History Source History Obtained from:: Patient and Chart Anesthesia Focused Assessment* Temperature: 96.8 F Pulse Rate: 69 Blood Pressure: 125/85 Respiratory Rate: 16 Pulse Ox: 100 Oxygen Delivery Method: Room Air Airway Assessment Mouth opens: 2 cm Mallampati Score: IV Teeth Condition: Caps/Crowns (Patient has several crowns. They are all tight.) and Missing (Patient has a couple missing teeth. The rest of the teeth are tight.) Neck Range of motion (ROM): Limited ROM (Somewhat decreased extension) Focused Labs Anesthesia Preop lab: CBC WBC 10.6 K/mm3 (4.4-11.0) 08/30/24 20:46 RBC 5.02 M/mm3 (4.6-6.2) 08/30/24 20:46 Hgb 15.5 g/dL (13.0-16.5) 08/30/24 20:46 Hct 43.5 % (40-54) 08/30/24 20:46 Plt Count 227 K/mm3 (150-450) 08/30/24 20:46 CHEMISTRY Potassium 3.7 mmol/L (3.5-5.1) 08/30/24 20:46 Sodium 134 mmol/L (136-145) L 08/30/24 20:46 Magnesium 2.5 mg/dL (1.6-2.6) 08/30/24 20:46 BUN 26 mg/dL (7-18) H 08/30/24 20:46 Creatinine 0.95 mg/dL (0.70-1.30) 08/30/24 20:46 Glucose 121 mg/dL (74-106) H 08/30/24 20:46 POC Glucose 134 mg/dL (74-106) H 11/07/24 06:45 TSH 4.320 uIU/mL (0.358-3.740) H 08/30/24 20:46 COAG PT 13.9 SECONDS (11.7-14.9) 10/31/21 12:23 Pre-Assessment Diagnosis/Proposed Procedure Planned Operative Procedure(s): COLONOSCOPY Anesthesia History 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 When Was Last Pacemaker Check QUESTION #4 FULL TEXT: You/Your Family Experience fever (hyperthermia) with Anesthesia Any additional information?: Yes Any Problems With Anesthesia: Yes (Patient had problems with oxygenation after his gallbladder surgery. O2 po) Cholinesterase deficiency: No You/your family experience fever (hyperthermia) with anesthesia: No Last Oral Intake Last Oral intake: Last Oral Intake NPO since 23:00 11/07/24 06:50 Meds taken in AM with sips of No 11/07/24 06:50 water? Meds patient instructed to take am of surgery PONV PONV - fiberglass technician: PONV - fiberglass technician Female No 11/06/24 09:54 HX of Motion Sickness No 11/06/24 09:54 HX of N/V After Surgery No 11/06/24 09:54 Non-Smoker Yes 11/06/24 09:54 Duration of Surgery greater No 11/06/24 09:54 than 60 minutes Number of Risk Factors 1 11/06/24 09:54 PONV Score Low Risk 11/06/24 09:54 Height & Weight Height & Weight: Anesthesia: Height & Weight Height 6 ft 1 in 11/07/24 06:50 Weight: 118 kg 11/07/24 06:50 Body Mass Index (BMI) 34.3 11/07/24 06:50 Respiratory Assessment Respiratory Assessment - fiberglass technician: Respiratory Tract Infection Hx - fiberglass technician Hx Respiratory Tract Infection No 11/06/24 09:54 STOP Sleep Apnea STOP Sleep Apnea - fiberglass technician: STOP Sleep Apnea - fiberglass technician Hx Hypertension Yes: CONTROLLED WITH MEDS 11/06/24 09:54 Hx Sleep Apnea No 11/06/24 09:54 CPAP BIPAP Do you snore loudly (louder No 11/06/24 09:54 than talking or can be heard Do you often feel tired/ No 11/06/24 09:54 fatigued/ sleepy during daytime? Has anyone observed you stop No 11/06/24 09:54 breathing during sleep? STOP Results Negative 11/06/24 09:54 QUESTION #5 FULL TEXT : Do you snore loudly (louder than talking or can be heard through closed doors)? 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 Specify any problems Hx of Preganancy in last 3 N/A 11/06/24 09:54 Months Nurse Filling Out Transfusion VLEHMAN 11/06/24 09:54 & Questions: Date: 11/06/24 11/06/24 09:54 Time: 10:08 11/06/24 09:54 Patient unable to answer at this time (ie. 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: /Reproductive Hx- fiberglass technician Hx Now Gestational Age (in weeks): EDC: Hx Hx Para Hx Section SAB No 10/16/24 15:52 PFSH Medical History Alcohol use Bruising High cholesterol Gastric reflux History of Holter monitoring History of echocardiogram Nausea & vomiting Colon cancer screening Wears hearing aid Wears glasses Schizophrenia Anxiety Diabetes Low iron Fatty liver Restless legs Back pain Tic disorder History of diverticulitis Former smoker History of stress test Cardiology follow-up encounter Hypertension Cholelithiasis History of sarcoidosis Depression Pancreatitis Secondary pulmonary arterial hypertension Atherosclerotic heart disease of [place] coronary artery with other forms of angina pectoris History of non-ST elevation myocardial infarction (NSTEMI) (07/26/20) Essential hypertension Type 2 diabetes mellitus Nausea Fatigue Urinary hesitancy Liver disease Hypoglycemia Hyperlipemia Gout GERD (gastroesophageal reflux disease) Anxiety and depression Bone fracture Anemia History of alcohol abuse Schizoaffective disorder Home Medications ?Medication ?Instructions ?Recorded ?Last Taken ?Type needle (disp) 18 G 18 gauge x 1 #100 ea 05/22/22 Unknown Rx (BD Regular Bevel [place]) nitroglycerin 0.4 mg sublingual 0.4 mg sublingual Q5-15M PRN chest 01/11/24 Unknown Rx tablet (Nitrostat) pain #25 tabs flash glucose scanning reader #1 ea 02/05/24 Unknown Rx (FreeStyle Jean 2 [place]) flash glucose sensor (FreeStyle #1 ea 02/05/24 Unknown Rx Jean 2 Sensor kit) cholecalciferol (vitamin D3) 125 5,000 unit PO DAILY 05/05/24 Unknown History mcg (5,000 unit) tablet (Vitamin D3) coenzyme Q10 100 mg capsule 100 mg PO DAILY because I'm taking 05/05/24 Unknown History (CoQ-10) a statin ferrous sulfate 325 mg (65 mg 325 mg PO DAILY 05/05/24 Unknown History iron) tablet (FeroSul) metformin 500 mg tablet,extended 1,000 mg PO BID 05/05/24 Unknown History release 24 hr trifluoperazine 2 mg tablet 2 mg PO 0300 For nervous tics. 05/05/24 Unknown History syringe with needle, safety 3 mL #50 ea 05/13/24 Unknown Rx 25 gauge x 1 amlodipine 5 mg tablet 5 mg PO DAILY 05/23/24 06/03/24 02:32 History aspirin 81 mg tablet,delayed 81 mg PO 1400 05/23/24 Unknown History release omega-3-epa 910 mg-fish oil 1,300 2 cap PO DAILY 05/23/24 Unknown History mg capsule,delayed release vitamin B complex 1 tab PO DAILY 05/23/24 Unknown History testosterone cypionate 200 mg/mL 100 mg (0.5 mL) IM Q2W #5 mL 06/09/24 Unknown Rx intramuscular oil semaglutide 0.25 mg or 0.5 mg (2 0.5 mg (0.736 mL) subcut QWEEK #3 08/25/24 10/29/24 Rx mg/3 mL) subcutaneous pen injector mL (Ozempic) isosorbide mononitrate 60 mg 60 mg PO BID 09/05/24 Unknown History tablet,extended release 24 hr magnesium glycinate 100 mg (as 100 mg PO QHS 09/05/24 Unknown History glycinate) tablet (Mag Glycinate) melatonin 10 mg capsule 10 mg PO QHS PRN sleep 09/05/24 Unknown History omeprazole 20 mg capsule,delayed 20 mg PO BID 09/05/24 Unknown History release carvedilol 25 mg tablet 25 mg PO BID #180 tabs 10/23/24 Unknown Rx atorvastatin 40 mg tablet 40 mg PO QHS 90 days #90 tabs 10/27/24 Unknown Rx escitalopram oxalate 5 mg tablet 5 mg PO DAILY 11/06/24 Unknown History (Lexapro) venlafaxine 37.5 mg 37.5 mg PO DAILY 11/06/24 Unknown History capsule,extended release 24 hr Allergy/AdvReac Type Severity Reaction Status Date / Time Penicillins (PCN) Allergy Other Verified 11/07/24 06:49 lisinopril AdvReac cough Verified 11/07/24 06:49 spironolactone AdvReac elevated Verified 11/07/24 06:49 blood sugar Family History Other CVA (cerebral vascular accident) Cancer Depression with anxiety Diabetes FH: mental illness Hyperlipemia Hypertension Osteoporosis Surgical History History of cardiac catheterization History of cholecystectomy Hx of colonoscopy History of left heart catheterization (11/02/21) History of coronary artery stent placement (07/26/20) History of cataract surgery History of placement of ear tubes History of tonsillectomy History of amputation of finger Social History Smoking Status: Former smoker quit date: 10/29/05 Tobacco: How many years used: 15 alcohol intake: former year quit: 2014 substance use type: does not use caffeine: Yes Type: carbonated beverages and coffee what type of physical activity do you participate in: walking Review of Systems (Anesthesia) ROS Narrative System reviewed and no additional complaints, except as documented.
--- NOTE | 2024-11-07 08:11 | PCM.POST.ANE ---
Anesthesia: Postop Eval I Current Vital Signs Temperature: 97.8 F Pulse Rate: 61 Blood Pressure: 140/117 Respiratory Rate: 16 Pulse Ox: 97 Oxygen Delivery Method: Room Air Assessment Airway patent: Yes Spontaneous unlabored respirations: Yes Mental status: Asleep nausea: No Vomiting: No Anesthesia Complication: No Fluid Hydration Crystalloid volume administer (ml): 30 Total IV fluid infused: 30 Progress Note Anesthesia document: Postop Eval 1 completed: Yes
--- NOTE | 2024-11-07 08:13 | OP.COLON_ITS ---
Patient Name: Angel Laura Procedure Date: 11/07/2024 7:39 AM Date of : 1960 Age: 64 Procedure: Colonoscopy Indications: Screening for colorectal malignant neoplasm Providers: Dimitry Camp MD Referring MD: Caryl Turner Medicines: Propofol per Anesthesia Patient Profile: This is a 64 year old male. Refer to note in patient chart for documentation of history and physical. Last Colonoscopy: more than 10 years ago. Complications: No immediate complications. Procedure: Pre-Anesthesia Assessment: - Prior to the procedure, a History and Physical was performed, and patient medications and allergies were reviewed. The patient's tolerance of previous anesthesia was also reviewed. The risks and benefits of the procedure and the sedation options and risks were discussed with the patient. All questions were answered, and informed consent was obtained. Prior Anticoagulants: The patient has taken no anticoagulant or antiplatelet agents. After reviewing the risks and benefits, the patient was deemed in satisfactory condition to undergo the procedure. After I obtained informed consent, the scope was passed under direct vision. Throughout the procedure, the patient's blood pressure, pulse, and oxygen saturations were monitored continuously. The pediatric colonoscope was introduced through the anus and advanced to the terminal ileum, with identification of the appendiceal orifice and IC valve. The colonoscopy was performed without difficulty. The patient tolerated the procedure well. The quality of the bowel preparation was good. The ileocecal valve, appendiceal orifice, and rectum were photographed. Scope In: 7:50:47 AM Scope Withdrawal Time 0 hours 6 minutes 55 seconds Scope Out: 8:02:34 AM Total Procedure Duration Time 0 hours 11 minutes 47 seconds Findings: The entire examined colon appeared normal on direct and retroflexion views. Impression: - The entire examined colon is normal on direct and retroflexion views. - No specimens collected. Recommendation: - Discharge patient to home. - Resume previous diet. - Continue present medications. - Repeat colonoscopy in 10 years for screening purposes. Procedure Code(s): --- Professional --- 12300, Colonoscopy, flexible; diagnostic, including collection of specimen(s) by brushing or washing, when performed (separate procedure) Diagnosis Code(s): --- Professional --- Z12.11, Encounter for screening for malignant neoplasm of colon CPT copyright 2021 [employer]. All rights reserved. The codes documented in this report are preliminary and upon shirt hemmer review may be revised to meet current compliance requirements. Dimitry Camp MD 11/07/2024 8:12:37 AM This report has been signed electronically. Number of Addenda: 0 Note Initiated On: 11/07/2024 7:39 AM
--- NOTE | 2024-11-07 08:13 | OP.CCLET_ITS ---
11/07/2024 Caryl Turner [facility] [address] [place] [address] Re : Colonoscopy procedure for Angel Laura Dear Dr. Turner This procedure was performed on Thursday, November 07, 2024. My impressions and recommendations are as follows: Impressions : - The entire examined colon is normal on direct and retroflexion views. - No specimens collected. Recommendations : - Discharge patient to home. - Resume previous diet. - Continue present medications. - Repeat colonoscopy in 10 years for screening purposes. My findings are described in the full procedure note, which is enclosed. If I can be of further assistance, please feel free to contact me at Doctor phone number(s): , Work: . Sincerely, Dimitry Camp MD 11/07/2024 8:12:37 AM This report has been signed electronically.
--- NOTE | 2024-11-07 08:50 | PCM.POSTANE2 ---
Anesthesia Postop Eval I Sum Postop Eval Completion status Anesthesia document: Postop Eval 1 completed: Yes Anesthesia Postop Eval I Summary Anesthesia Postop Eval I Summary: Anesthesia Postop Eval I: Assessment Summary Airway patent Yes 11/07/24 08:12 [email or web address] Spontaneous unlabored Yes 11/07/24 08:12 [email or web address] respirations Mental status Asleep 11/07/24 08:12 [email or web address] nausea No 11/07/24 08:12 [email or web address] Vomiting No 11/07/24 08:12 [email or web address] Anesthesia Postop Eval I: Fluid Summary Crystalloid volume administer 30 11/07/24 08:12 [email or web address] (ml) Colloids volume administered ( ml) Blood Product volume administered (ml) Total IV fluid infused 30 11/07/24 08:12 [email or web address] Anesthesia Postop Eval I: Summary Notes Anesthesia Complication No 11/07/24 08:12 [email or web address] Anesthesia Complication Comment: Post-operative progress note Anesthesia: Postop Eval II Evaluation Mental status: Awake Pain Level: 0 nausea: No Vomiting: No
== END 2024-11-07 08:56 | disposition home or self-care (01) ==
LOC: EN 06:30 → AC 06:30
PROVIDERS: PCP Internal Medicine; Referring Provider Internal Medicine; Visit Provider Surgery
PROC: 0DJD8ZZ Inspection of Lower Intestinal Tract, Via Natural or Artificial Opening Endoscopic (ICD-10-PCS; CPT 45378; principal; 2024-11-07 07:25)
DX: Z12.11 Encounter for screening for malignant neoplasm of colon (principal); F25.9 Schizoaffective disorder, unspecified; E11.9 Type 2 diabetes mellitus without complications; K21.9 Gastro-esophageal reflux disease without esophagitis; I25.10 Atherosclerotic heart disease of native coronary artery without angina pectoris; I10 Essential (primary) hypertension; I25.2 Old myocardial infarction; Z87.891 Personal history of nicotine dependence; Z79.82 Long term (current) use of aspirin; Z79.899 Other long term (current) drug therapy; Z95.5 Presence of coronary angioplasty implant and graft
CPT/HCPCS: G0121; 82962; A4216; J2405

== ENCOUNTER 2024-11-14 18:38 | Emergency (ER) | payer MEDICARE, SELFPAY ==
[2024-11-14] VITALS (7 sets, daily range): BP systolic 117–172; BP diastolic 71–95; PULSE 72–81; RESP 16–21; TEMP 36.6–36.8; O2SAT 96–99
--- NOTE | 2024-11-14 19:26 | RAD_ITS ---
STUDY: X-RAY CHEST REASON FOR EXAM: Male, 64 years old. chest pain TECHNIQUE: AP portable COMPARISON: February 19, 2024. FINDINGS: The lungs are clear and expanded. There is no demonstrated pleural abnormality. Normal size heart. Normal mediastinum and janey. Normal visualized pulmonary arteries. Normal visualized aortic arch and descending thoracic aorta. Dorsal spine demonstrates degenerative changes. Normal visualized ribs, clavicles, and shoulders. There is no demonstrated abnormality of the visualized soft tissue structures of the upper abdomen. RAD/Chest 1 View (Portable) IMPRESSION: No acute cardiopulmonary pathology. Electronically Signed: Juan Jean MD at 20:29 EST ,
[2024-11-14 19:39] LABS: Absolute Lymphocyte Count 1.35 X10^3/uL (0.83-4.51); Absolute Neutrophil Count 4.1 X10^3/uL (2.0-7.7); Basophil# 0.05 X10^3/uL; Basophil% 0.8 % (0-1); Eosinophil# 0.23 X10^3/uL; Eosinophils% 3.7 % (0-5); Hematocrit 38.5 % (40-54); Hemoglobin 13.6 g/dL (13.0-16.5); Lymphocyte # 1.35 X10^3/ul (0.83-4.51); Lymphocyte % 21.4 % (19-41); Mean Corp Hgb Conc 35.3 g/dL (32-36); Mean Corpuscular Hgb 31.3 pg (27.0-32.0); Mean Corpuscular Volume 88.5 fL (80-94); Mean Platelet Vol. 9.6 fl (6.2-12.0); Monocyte# 0.54 X10^3/uL; Monocyte% 8.6 % (0-10); NRBC Flagged by Analyzer 0 % (0-5); Neutrophil # 4.09 X10^3/uL (2.7-7.7); Neutrophil % 64.9 % (47-70); Platelet Count 219 K/mm3 (150-450); RBC Distribution Width CV 13.7 % (11.6-14.6); RBC Distribution Width SD 43.7 fl (35.1-43.9); Red Blood Count 4.35 M/mm3 (4.6-6.2); White Blood Count 6.3 K/mm3 (4.4-11.0)
--- NOTE | 2024-11-14 19:41 | EDS_ITS ---
<Statement entered by Lamberto Desai DO - 11/20/24 22:28> Patient was seen and examined with physician assistant at surgery Betty All components of the history and physical confirmed and agreed. History of present illness and physical exam: Patient is a 64-year-old male with past medical history of hypertension, hyperlipidemia, diabetes, GERD who presented to the emergency department chief complaint chest pain. Patient states that his pain started around 530 this evening was in the middle of his chest did not radiate anywhere. He states that he took 3 nitroglycerin and his pain resolved around 6 PM. He states that he has been asymptomatic since then. He states that he had a stress test about a year ago. He did note that he had a previous CO back in 2019 with 1 stent plac ed in the LAD at [facility]. He states that he follows with Dr. Bishop and states that things been going well. Patient presents with Review of systems: Agree with above Physical exam: Agree with above MDM Patient is a 64-year-old male who presented to the emergency department with a chief complaint of chest pain as noted above. On the differential diagnose includes Melamin to ACS, costochondritis, pneumonia, hypertensive emergency. Once workup is obtained reviewed he will be reevaluated. Patient CBC reviewed and showed no evidence leukocytosis white blood count normal at 6.3, he was 13.6, platelet count normal at 319. Patient sodium was 134, potassium normal 3.5, creatinine was normal at 0.84. Patient's troponin was less than 3 and a delta troponin obtained was less than 3 as well. Patient's chest x-ray reviewed by myself and by radiology showed no acute cardiopulmonary processes. Patient's EKG reviewed and independently interpreted by myself showed sinus rhythm with a rate of 75 bpm. Previous records from the echocardiogram of 10/27/2024 was reviewed that showed ejection fraction of 55% no valvular abnormalities. Patient did have a Holter monitor for 14 days from 09/11/2024 to 09/24/2024 that showed sinus rhythm with first-degree AV block no events noted. Betty did discuss case with on-call human resources officer as noted in her note and they believe that he can be discharged home with follow-up in the outpatient setting. I did discuss this plan with the patient he is agreeable with this plan as well as significant other at bedside all question concerns answered he is discharged home in stable condition. Final impression: Chest pain Disposition: Patient will be discharged home in stable condition Supervising attending attestation: Lamberto REN History of Present Illness Chief Complaint: Chest Pain Narrative Narrative: 64-year-old male with PMH of HTN, HLD, DM2, GERD presents with midsternal chest pressure that started while sitting at 5:30 PM. He states he was writhing in pain. There was no radiation. He had nausea but no vomiting. No real shortness of breath. He took 3 nitro and the pain resolved by 6 PM. He has been asymptomatic since then. He states an hour prior to symptom onset he had cottage cheese. He had an CO in 2019 with 1 stent placed in the LAD at [facility]. He follows with Dr. Orellana and states he has had a normal stress test since then. He denies recent exertional chest pain or dyspnea. He has been very fati gued lately. No fever chills or cough. [facility] Medical History Alcohol use Bruising High cholesterol Gastric reflux History of Holter monitoring History of echocardiogram Nausea & vomiting Colon cancer screening Wears hearing aid Wears glasses Schizophrenia Anxiety Diabetes Low iron Fatty liver Restless legs Back pain Tic disorder History of diverticulitis Former smoker History of stress test Cardiology follow-up encounter Hypertension Cholelithiasis History of sarcoidosis Depression Pancreatitis Secondary pulmonary arterial hypertension Atherosclerotic heart disease of [place] coronary artery with other forms of angina pectoris History of non-ST elevation myocardial infarction (NSTEMI) (07/26/20) Essential hypertension Type 2 diabetes mellitus Nausea Fatigue Urinary hesitancy Liver disease Hypoglycemia Hyperlipemia Gout GERD (gastroesophageal reflux disease) Anxiety and depression Bone fracture Anemia History of alcohol abuse Schizoaffective disorder Home Medications ?Medication ?Instructions ?Recorded ?Last Taken ?Type needle (disp) 18 G 18 gauge x 1 #100 ea 05/22/22 Unknown Rx (BD Regular Bevel Jeannette) nitroglycerin 0.4 mg sublingual 0.4 mg sublingual Q5-15M PRN chest 01/11/24 Unknown Rx tablet (Nitrostat) pain #25 tabs flash glucose scanning reader #1 ea 02/05/24 Unknown Rx (FreeStyle Jean 2 [place]) flash glucose sensor (FreeStyle #1 ea 02/05/24 Unknown Rx Jean 2 Sensor kit) cholecalciferol (vitamin D3) 125 5,000 unit PO DAILY 05/05/24 Unknown History mcg (5,000 unit) tablet (Vitamin D3) coenzyme Q10 100 mg capsule 100 mg PO DAILY because I'm taking 05/05/24 Unknown History (CoQ-10) a statin ferrous sulfate 325 mg (65 mg 325 mg PO DAILY 05/05/24 Unknown History iron) tablet (FeroSul) trifluoperazine 2 mg tablet 2 mg PO 0300 For nervous tics. 05/05/24 Unknown History syringe with needle, safety 3 mL #50 ea 05/13/24 Unknown Rx 25 gauge x 1 amlodipine 5 mg tablet 5 mg PO DAILY 05/23/24 06/03/24 02:32 History aspirin 81 mg tablet,delayed 81 mg PO 1400 05/23/24 Unknown History release omega-3-epa 910 mg-fish oil 1,300 2 cap PO DAILY 05/23/24 Unknown History mg capsule,delayed release vitamin B complex 1 tab PO DAILY 05/23/24 Unknown History testosterone cypionate 200 mg/mL 100 mg (0.5 mL) IM Q2W #5 mL 06/09/24 Unknown Rx intramuscular oil semaglutide 0.25 mg or 0.5 mg (2 0.5 mg (0.736 mL) subcut QWEEK #3 08/25/24 10/29/24 Rx mg/3 mL) subcutaneous pen injector mL (Ozempic) isosorbide mononitrate 60 mg 60 mg PO BID 09/05/24 Unknown History tablet,extended release 24 hr magnesium glycinate 100 mg (as 100 mg PO QHS 09/05/24 Unknown History glycinate) tablet (Mag Glycinate) melatonin 10 mg capsule 10 mg PO QHS PRN sleep 09/05/24 Unknown History carvedilol 25 mg tablet 25 mg PO BID #180 tabs 10/23/24 Unknown Rx atorvastatin 40 mg tablet 40 mg PO QHS 90 days #90 tabs 10/27/24 Unknown Rx escitalopram oxalate 5 mg tablet 5 mg PO DAILY 11/06/24 Unknown History (Lexapro) venlafaxine 37.5 mg 37.5 mg PO DAILY 11/06/24 Unknown History capsule,extended release 24 hr metformin 500 mg tablet,extended 1,000 mg (2 x 500 mg) PO BID #360 11/13/24 Unknown Rx release 24 hr tabs omeprazole 20 mg capsule,delayed 20 mg PO BID #180 caps 11/13/24 Unknown Rx release Allergy/AdvReac Type Severity Reaction Status Date / Time Penicillins (PCN) Allergy Other Verified 11/14/24 18:48 lisinopril AdvReac cough Verified 11/14/24 18:48 spironolactone AdvReac elevated Verified 11/14/24 18:48 blood sugar Family History Other CVA (cerebral vascular accident) Cancer Depression with anxiety Diabetes FH: mental illness Hyperlipemia Hypertension Osteoporosis Surgical History History of cardiac catheterization History of cholecystectomy Hx of colonoscopy History of left heart catheterization (11/02/21) History of coronary artery stent placement (07/26/20) History of cataract surgery History of placement of ear tubes History of tonsillectomy History of amputation of finger Social History Smoking Status: Former smoker quit date: 10/29/05 Tobacco: How many years used: 15 alcohol intake: former year quit: 2014 substance use type: does not use caffeine: Yes Type: carbonated beverages and coffee what type of physical activity do you participate in: walking ROS ROS ED ROS Narrative Constitutional: Negative for fever, chills, malaise. CVS: Positive for chest pain. Negative for palpitations, syncope. Respiratory: Negative for shortness of breath, cough, orthopnea. GI: Positive for nausea. Negative for abdominal pain, vomiting, diarrhea, melena, hematochezia. EXAM Physical Exam Narrative Exam Narrative: CONST: Patient sitting in no acute distress. EYES: Normal inspection. NECK: Normal inspection. RESP: No respiratory distress, CTAB. CVS: Regular rate and rhythm, no murmur, no gallop. ABD: Soft and nontender, no guarding or rebound, nondistended. SKIN: Color normal, no rash, warm, dry, intact. EXTREMITIES: Normal appearance, no pedal edema. NEURO: Alert and answering questions appropriately. PSYCH: Flat affect. Const Vital Signs: 11/14/24 18:40 11/14/24 18:49 11/14/24 19:26 Temperature 98.3 F Temperature Source Oral Pulse Rate 79 Respiratory Rate 20 H Respiratory Effort Short of Breath Blood Pressure 170/95 H Blood Pressure Mean 120 Pulse Ox 99 96 Oxygen Delivery Method Room Air Room Air 11/14/24 19:39 11/14/24 20:00 Temperature Temperature Source Pulse Rate 78 81 Respiratory Rate 21 H 21 H Respiratory Effort Blood Pressure 158/93 H 158/93 H Blood Pressure Mean 114 114 Pulse Ox 97 98 Oxygen Delivery Method Room Air Room Air Heart Score History: Moderately Suspicious ECG: Normal Age: >45 - <65 years Risk Factors: >/= 3 Risk Factors or History of CAD Troponin: </= Normal Limit Score: 4 MDM MDM MDM Narrative Medical decision making narrative: History gathered from: Patient and spouse Differential: GERD, esophageal spasm, angina, ACS Consults: Cardiology 64-year-old male presents with episode of chest pressure that has resolved. He was given aspirin 324 mg by EMS. He is in no distress. Vital signs are stable. Overall exam is benign. EKG is normal sinus rhythm without ischemia and troponins are 3, delta pending. CXR shows no acute process. His Wells score 0 so I did not order D-dimer as I do not suspect PE. He has not tachypneic or tachycardic. I consulted cardiology to review the case with Dr. Le. He states as long as the patient continues to be chest pain-free and has 2 normal troponins he can follow-up outpatient. External records reviewed: Echocardiogram 10/27/2024 LV normal size, EF 55%. No significant valvular abnormalities. 14-day Holter monitor from 09/11/2024 through 09/24/2024 Sinus rhythm with first-degree AV block, 0 critical events. Stress test on 04/29/2024 Normal myocardial perfusion with moderate workload, preserved EF Lab Data Attestation: I reviewed the patient's lab results. Labs: Laboratory Results - last 24 hr 11/14/24 18:30 WBC 6.3 RBC 4.35 L Hgb 13.6 Hct 38.5 L MCV 88.5 MCH 31.3 MCHC 35.3 RDW Std Deviation 43.7 RDW Coeff of [place] 13.7 Plt Count 219 MPV 9.6 Immature Gran % (Auto) 0.600 Neut % (Auto) 64.9 Lymph % (Auto) 21.4 [place] % (Auto) 8.6 Eos % (Auto) 3.7 Baso % (Auto) 0.8 Absolute Neuts (auto) 4.1 Absolute Lymphs (auto) 1.35 Nucleated RBC % 0 Sodium 134 L Potassium 3.5 Chloride 100 Carbon Dioxide 30.0 Anion Gap 4 L BUN 16 Creatinine 0.84 Est GFR (MDRD) Af Amer 119 Est GFR (MDRD) Non-Af 98 BUN/Creatinine Ratio 19.1 Glucose 170 H Calcium 9.6 Troponin I High Sens < 3 L Radiography Diagnostic Testing: Clinical Impression(s) from Imaging Studies Chest X-Ray 11/14/24 19:26 IMPRESSION: No acute cardiopulmonary pathology. Electronically Signed: Juan Jean MD at 20:29 EST Reading Location ID and State: [facility] / [place] Tel , Service support , ED attending interpretation 1 view chest x-ray shows normal heart size, no acute infiltrate. EKG Initial EKG: Attestation: I personally reviewed and interpreted this EKG as follows: Interpretation: Sinus Rhythm and No Acute Injury Pattern Comments: Normal sinus rhythm at 75 bpm Normal intervals, no acute ischemic changes Discharge Plan Triage Chief Complaint: Chest Pain ED Midlevel Provider: Betty Aaron ED Provider: Lamberto Desai Dx/Rx/DC Orders Clinical Impression: Chest pain Instructions: ED Chest Pain, Uncertain Cause Prescriptions: No Action cholecalciferol (vitamin D3) [Vitamin D3] 125 mcg (5,000 unit) tablet 5,000 unit PO DAILY trifluoperazine 2 mg tablet 2 mg PO 0300 Patient Comments: I tried to get completely off of it, but I started getting nervous tics when I got lower than 2mg/day. I no longer need it, but since I have been on it for over 36 years, it's very difficult to stop. ferrous sulfate [FeroSul] 325 mg (65 mg iron) tablet 325 mg PO DAILY coenzyme Q10 [CoQ-10] 100 mg capsule 100 mg PO DAILY isosorbide mononitrate 60 mg tablet extended release 24 hr 60 mg PO BID escitalopram oxalate [Lexapro] 5 mg tablet 5 mg PO DAILY venlafaxine 37.5 mg capsule,extended release 24hr 37.5 mg PO DAILY vitamin B complex Tablet 1 tab PO DAILY dhlza-[id number]-fish oil 910-1,300 mg capsule,delayed release(DR/EC) 2 cap PO DAILY amlodipine 5 mg tablet 5 mg PO DAILY aspirin 81 mg tablet,delayed release (DR/EC) 81 mg PO 1400 Mag Glycinate 100 mg tablet 100 mg PO QHS melatonin 10 mg capsule 10 mg PO QHS PRN (Reason: sleep) (DME) needle (disp) 18 G [BD Regular Bevel Jeannette] 18 gauge x 1 needle See Rx Instructions .Route Qty: 100 0RF Rx Instructions: As directed nitroglycerin [Nitrostat] 0.4 mg tablet, sublingual 0.4 mg sublingual Q5-15M PRN (Reason: chest pain) Qty: 25 3RF Rx Instructions: do not exceed 3 doses per episode (DME) FreeStyle Jean 2 Sensor Kit See Rx Instructions .Route Qty: 1 11RF Rx Instructions: As directed (DME) FreeStyle Jean 2 [place] Misc See Rx Instructions .Route Qty: 1 1RF Rx Instructions: As directed (DME) syringe with needle, safety 3 mL 25 gauge x 1 syringe See Rx Instructions .Route Qty: 50 0RF Rx Instructions: As directed testosterone cypionate 200 mg/mL oil 100 mg IM Q2W Qty: 5 5RF Rx Instructions: PLEASE dispense as five 1ml vials Ozempic 0.25 mg or 0.5 mg (2 mg/3 mL) pen injector 0.5 mg subcut QWEEK Qty: 3 1RF Rx Instructions: for 4 weeks carvedilol 25 mg tablet 25 mg PO BID Qty: 180 3RF atorvastatin 40 mg tablet 40 mg PO QHS 90 Days Qty: 90 3RF metformin 500 mg tablet extended release 24 hr 1,000 mg PO BID Qty: 360 3RF omeprazole 20 mg capsule,delayed release(DR/EC) 20 mg PO BID Qty: 180 3RF Primary Care Provider: Caryl Turner Referrals: Marck Orellana MD [Med Staff - Active Staff] - Caryl Turner MD [Primary Care Provider] - Activity Restrictions/Additional Instructions: Follow-up with your doctors in outpatient setting. Return with worsening symptoms or concerns. Print Language: Iranian Disposition Disposition: Home, Self Care Discharge Date/Time: 11/14/24 23:23
[2024-11-14 20:12] LABS: Anion Gap 4 (5-15); BUN 16 mg/dL (7-18); BUN/Creat Ratio 19.1 RATIO (10-20); Calcium,Total 9.6 mg/dL (8.5-10.1); Chloride 100 mmol/L (98-107); Creatinine, Serum 0.84 mg/dL (0.70-1.30); EST Glomerular Filtration Rate 98 mL/min (>60); Est Glom Filt Rate - Afr Amer 119 mL/min (>60); Glucose 170 mg/dL (74-106); Potassium 3.5 mmol/L (3.5-5.1); Sodium Level 134 mmol/L (136-145); Troponin-I HS (w/2H Reflex) < 3 pg/mL (3.0-78.0)
[2024-11-14 21:35] LABS: Reflex Troponin-HS? (from REC) Y
[2024-11-14 22:09] LABS: Troponin-I HS < 3 pg/mL (3.0-78.0)
== END 2024-11-14 23:23 | disposition home or self-care (01) ==
PROVIDERS: Physician Assistant; Emergency Provider Emergency Medicine; PCP Internal Medicine; Visit Provider Emergency Medicine
DX: R07.9 Chest pain, unspecified (principal); E11.9 Type 2 diabetes mellitus without complications; I25.10 Atherosclerotic heart disease of native coronary artery without angina pectoris; Z87.891 Personal history of nicotine dependence

== ENCOUNTER → 2025-02-09 | Outpatient (CLI) | payer MEDICARE, SELFPAY ==
[2025-02-09 12:44] LABS: Absolute Lymphocyte Count 1.36 X10^3/uL (0.83-4.51); Absolute Neutrophil Count 5.2 X10^3/uL (2.0-7.7); Basophil# 0.04 X10^3/uL; Basophil% 0.5 % (0-1); Eosinophils% 2.7 % (0-5); Hematocrit 37.5 % (40-54); Hemoglobin 13.2 g/dL (13.0-16.5); Lymphocyte # 1.36 X10^3/ul (0.83-4.51); Lymphocyte % 18.6 % (19-41); Mean Corp Hgb Conc 35.2 g/dL (32-36); Mean Corpuscular Hgb 31.1 pg (27.0-32.0); Mean Corpuscular Volume 88.4 fL (80-94); Mean Platelet Vol. 9.3 fl (6.2-12.0); Monocyte# 0.51 X10^3/uL; NRBC Flagged by Analyzer 0 % (0-5); Neutrophil # 5.19 X10^3/uL (2.7-7.7); Neutrophil % 70.8 % (47-70); Platelet Count 204 K/mm3 (150-450); RBC Distribution Width CV 12.7 % (11.6-14.6); RBC Distribution Width SD 39.9 fl (35.1-43.9); Red Blood Count 4.24 M/mm3 (4.6-6.2); White Blood Count 7.3 K/mm3 (4.4-11.0)
[2025-02-09 12:54] LABS: Hemoglobin A1c 5.9 % (<=5.6)
[2025-02-09 13:15] LABS: Cholesterol 170 mg/dL (<=200); Free T3 2.6 pg/mL (2.18-3.98); High Density Lipoprotein 41 mg/dL; Low Density Lipoprotein Calc. 90 mg/dL; Magnesium 2.2 mg/dL (1.5-2.2); PSA,Total - Annual Screen 0.31 ng/mL (0.02-4.00); Triglycerides 195 mg/dL; Very Low Density Lipoprotein 39 mg/dL (5-40); Vitamin B12 608 pg/mL (180-914); Vitamin D,25 Hydroxy 30.2 ng/mL (30-100); cholesterol:hdl ratio screen 4.17
[2025-02-09 13:17] LABS: AST(SGOT) 21 U/L (<=37); Alanine Aminotransfer ALT/SGPT 18 U/L (<=46); Albumin, Serum 4.6 g/dL (3.4-4.8); Alkaline Phosphatase 91 U/L (40-129); Anion Gap 12 (5-15); BUN 14 mg/dL (4-19); BUN/Creat Ratio 15.2 RATIO (10-20); Calcium,Total 9.9 mg/dL (7.6-11.0); Carbon Dioxide 23.7 mmol/L (21.0-32.0); Chloride 99 mmol/L (98-108); Creatinine, Serum 0.95 mg/dL (0.70-1.20); EST Glomerular Filtration Rate 91 (>60); Globulin 2.3 g/dL (2.2-4.2); Glucose 124 mg/dL (70-99); Potassium 4.2 mmol/L (3.3-5.1); Protein, Total 6.9 g/dL (5.9-8.4); Sodium Level 135 mmol/L (133-145); Total Bilirubin 0.45 mg/dL (0.00-1.30)
== END | disposition home or self-care (01) ==
LOC: BIMLAB 11:11
PROVIDERS: PCP Internal Medicine; Referring Provider Internal Medicine; Visit Provider Internal Medicine
DX: R11.2 Nausea with vomiting, unspecified (principal); F25.1 Schizoaffective disorder, depressive type; E11.9 Type 2 diabetes mellitus without complications; Z12.5 Encounter for screening for malignant neoplasm of prostate; I25.118 Atherosclerotic heart disease of native coronary artery with other forms of angina pectoris; E04.2 Nontoxic multinodular goiter; R79.89 Other specified abnormal findings of blood chemistry; E66.9 Obesity, unspecified; E29.1 Testicular hypofunction; E55.9 Vitamin D deficiency, unspecified
CPT/HCPCS: 36415; 80053; 80061; 82306; 82607; 83036; 83735; 84153; 84402; 84403; 84439; 84443; 84481; 85025; G0103

== ENCOUNTER → 2025-05-18 | Outpatient (CLI) | payer MEDICARE, SELFPAY ==
[2025-05-18 13:10] LABS: Mucous, Urine 0 SEEN /hpf (<or=2+); Red Blood Cells-Urine 0 SEEN /hpf (0-5)
[2025-05-18 13:14] LABS: Color, Urine Yellow (Yellow); Glucose, Dipstick Normal (Normal); Ketone-Dipstick Negative (Negative); Leukocyte Esterase-Dipstick Negative /ul (Negative); Nitrite-Dipstick Negative (Negative); Occult Blood-Urine Negative /ul (Negative); Protein-Dipstick 15 mg/dl (Negative); Specific Gravity, Urine 1.020 (1.002-1.030); Urine Bilirubin Dipstick Negative (Negative)
[2025-05-18 13:25] LABS: Squamous Epithelial Cells - UA 0-5 SEEN /hpf (0-5)
== END | disposition home or self-care (01) ==
LOC: LABSPEC 13:05
PROVIDERS: PCP Internal Medicine; Referring Provider Internal Medicine; Visit Provider Internal Medicine
DX: N39.0 Urinary tract infection, site not specified (principal)
CPT/HCPCS: 81001

== ENCOUNTER → 2025-06-15 | Outpatient (CLI) | payer MEDICARE, SELFPAY ==
[2025-06-15 14:27] LABS: Microalbumin,Random Urine 13.9 mg/L (<20 mg/L)
[2025-06-15 14:35] LABS: AST(SGOT) 32 U/L (<=37); AST(SGOT) 33 U/L (<=37); Alanine Aminotransfer ALT/SGPT 33 U/L (<=46); Albumin, Serum 4.2 g/dL (3.4-4.8); Alkaline Phosphatase 112 U/L (40-129); Alkaline Phosphatase 113 U/L (40-129); Anion Gap 14 (5-15); BUN 17 mg/dL (4-19); BUN/Creat Ratio 17.2 RATIO (10-20); Bilirubin, Direct 0.19 mg/dL (0.00-0.30); Calcium,Total 9.2 mg/dL (7.6-11.0); Carbon Dioxide 22.4 mmol/L (21.0-32.0); Chloride 101 mmol/L (98-108); Cholesterol 78 mg/dL (<=200); Globulin 2.3 g/dL (2.2-4.2); Glucose 209 mg/dL (70-99); Low Density Lipoprotein Calc. -34 mg/dL; Potassium 3.6 mmol/L (3.3-5.1); Triglycerides 346 mg/dL; Very Low Density Lipoprotein 69 mg/dL (5-40); cholesterol:hdl ratio screen 1.83
[2025-06-23 12:09] LABS: Testosterone, % Free 2.41 % (1.50-4.20); Testosterone, Free 10.85 ng/dL (5.00-21.00)
== END | disposition home or self-care (01) ==
LOC: LAB 13:31
PROVIDERS: PCP Internal Medicine; Referring Provider Nurse Practitioner Family; Visit Provider Internal Medicine
DX: I10 Essential (primary) hypertension (principal); E11.65 Type 2 diabetes mellitus with hyperglycemia; E78.2 Mixed hyperlipidemia; N52.9 Male erectile dysfunction, unspecified; E29.1 Testicular hypofunction; I25.118 Atherosclerotic heart disease of native coronary artery with other forms of angina pectoris; I25.2 Old myocardial infarction; Z95.5 Presence of coronary angioplasty implant and graft
CPT/HCPCS: 36415; 80053; 80061; 80076; 82043; 83036; 84402; 84403

== ENCOUNTER → 2025-06-24 | Outpatient (CLI) | payer MEDICARE, SELFPAY ==
[2025-06-29 15:08] LABS: Testosterone, % Free 2.44 % (1.50-4.20); Testosterone, Free 3.61 ng/dL (5.00-21.00)
== END | disposition home or self-care (01) ==
LOC: LAB 08:41
PROVIDERS: PCP Internal Medicine; Referring Provider Internal Medicine; Visit Provider Internal Medicine
DX: E29.1 Testicular hypofunction (principal); R79.89 Other specified abnormal findings of blood chemistry
CPT/HCPCS: 36415; 84402; 84403

== ENCOUNTER → 2025-08-14 | Outpatient (CLI) | payer MEDICARE, SELFPAY ==
[2025-08-14 15:04] LABS: CRP < 3.00 mg/L (0.0-3.0)
[2025-08-14 17:12] LABS: Hematocrit 42.1 % (40-54); Hemoglobin 14.5 g/dL (13.0-16.5); Immature Granulocytes Count 0.030 X10^3/uL (0.0-0.0); Mean Corp Hgb Conc 34.4 g/dL (32-36); Mean Corpuscular Volume 87.2 fL (80-94); Mean Platelet Vol. 9.4 fl (6.2-12.0); NRBC Flagged by Analyzer 0 % (0-5); Platelet Count 288 K/mm3 (150-450); RBC Distribution Width CV 13.2 % (11.6-14.6); RBC Distribution Width SD 40.7 fl (35.1-43.9); Red Blood Count 4.83 M/mm3 (4.6-6.2); White Blood Count 8.3 K/mm3 (4.4-11.0)
[2025-08-14 17:49] LABS: AST(SGOT) 26 U/L (<=37); Alanine Aminotransfer ALT/SGPT 29 U/L (<=46); Albumin, Serum 4.6 g/dL (3.4-4.8); Alkaline Phosphatase 115 U/L (40-129); Anion Gap 15 (5-15); BUN 17 mg/dL (4-19); BUN/Creat Ratio 18.4 RATIO (10-20); Calcium,Total 9.8 mg/dL (7.6-11.0); Carbon Dioxide 21.5 mmol/L (21.0-32.0); Chloride 100 mmol/L (98-108); Cholesterol 69 mg/dL (<=200); Globulin 2.7 g/dL (2.2-4.2); Glucose 134 mg/dL (70-99); Low Density Lipoprotein Calc. -3 mg/dL; Potassium 4.2 mmol/L (3.3-5.1); Triglycerides 256 mg/dL; Very Low Density Lipoprotein 51 mg/dL (5-40); cholesterol:hdl ratio screen 1.96
== END | disposition home or self-care (01) ==
LOC: LAB 13:39
PROVIDERS: PCP Internal Medicine; Referring Provider Internal Medicine; Visit Provider Internal Medicine
DX: M79.10 Myalgia, unspecified site (principal); E11.9 Type 2 diabetes mellitus without complications; R80.9 Proteinuria, unspecified
CPT/HCPCS: 36415; 80053; 80061; 83036; 85025; 85652; 86140

== ENCOUNTER → 2025-10-08 | Outpatient (CLI) | payer MEDICARE, SELFPAY | END | disposition home or self-care (01) | LOC: LABSPEC 14:41 | PROVIDERS: PCP Internal Medicine; Referring Provider Internal Medicine; Visit Provider Internal Medicine | DX: R19.7 Diarrhea, unspecified (principal); K58.9 Irritable bowel syndrome, unspecified | CPT/HCPCS: 82274; 87177; 87209; 87493; 87506 ==

== ENCOUNTER → 2025-10-12 | Outpatient (CLI) | payer MEDICARE, SELFPAY ==
[2025-10-12 12:20] LABS: 24HR. UA Prot. Total Volume 1400 mL; 24HR. Urine Creatinine 2156.0 mg/24 hr (1040.0-2350.0); 24Hr UA Prot. Collection Time 24.0 HOURS (24.0); Urine Protein (24 Hour) 12.3 mg/dL (<11.9)
== END | disposition home or self-care (01) ==
LOC: LABSPEC 11:16
PROVIDERS: PCP Internal Medicine; Referring Provider Internal Medicine; Visit Provider Internal Medicine
DX: E11.9 Type 2 diabetes mellitus without complications (principal); R80.9 Proteinuria, unspecified
CPT/HCPCS: 81050; 82570; 84156

== ENCOUNTER → 2025-10-13 | Outpatient (CLI) | payer MEDICARE, SELFPAY ==
[2025-10-13 17:03] LABS: Hematocrit 38.2 % (40-54); Hemoglobin 13.5 g/dL (13.0-16.5); Immature Granulocytes Count 0.020 X10^3/uL (0.0-0.0); Mean Corp Hgb Conc 35.3 g/dL (32-36); Mean Corpuscular Volume 85.7 fL (80-94); Mean Platelet Vol. 9.1 fl (6.2-12.0); NRBC Flagged by Analyzer 0 % (0-5); Platelet Count 209 K/mm3 (150-450); RBC Distribution Width CV 13.1 % (11.6-14.6); RBC Distribution Width SD 39.9 fl (35.1-43.9); Red Blood Count 4.46 M/mm3 (4.6-6.2); White Blood Count 6.3 K/mm3 (4.4-11.0)
[2025-10-13 17:29] LABS: AST(SGOT) 25 U/L (<=37); Alanine Aminotransfer ALT/SGPT 25 U/L (<=46); Albumin, Serum 4.6 g/dL (3.4-4.8); Alkaline Phosphatase 136 U/L (40-129); Amylase 36 U/L (28-100); Anion Gap 12 (5-15); BUN 19 mg/dL (4-19); BUN/Creat Ratio 16.8 RATIO (10-20); Calcium,Total 10.1 mg/dL (7.6-11.0); Carbon Dioxide 27.4 mmol/L (21.0-32.0); Chloride 98 mmol/L (98-108); Globulin 2.6 g/dL (2.2-4.2); Glucose 207 mg/dL (70-99); Lipase 26 U/L (13-75); Magnesium 2.1 mg/dL (1.5-2.2); Potassium 4.0 mmol/L (3.3-5.1)
--- OUTSIDE RECORDS SUMMARY | 2025-10-13 20:40 | XMS RPT_ITS | CCD ---
Author Organization [facility] Care Team Providers Care Weight Caller Name Role Phone PIETRO TURNER MD Primary Care Physician [phone] Giovanni PT, Betty Unavailable Unavailable Dr. Pietro Turner Primary Care Provider Dr. Pietro Turner Referring Provider [phone] Chin BREAUX, STORE PROMOTER-C Rosalva Attending Provider Dr. Pietro Turner Attending Provider [phone] JAME Lund Attending Provider Unavailab Fabi Najera Attending Provider Unavailable Dr. Pietro Turner Primary Care Provider Dr. Pietro Turner Referring Provider [phone] VARGAS Holley NPC Leslie Attending Provider Dr. Pietro Turner Attending Provider [phone] Bro Delgado Attending Provider Unavailable Dr. Pietro Turner Primary Care Provider Dr. Pietro Turner Referring Provider [phone]) Dr. Pietro Turner Primary Care Provider Dr. Pietro Turner Attending Provider [phone]) Dr. Pietro Turner Primary Care Provider Dr. Pietro Turner Referring Provider [phone]) Kihsan BREAUX, STORE PROMOTER-C Leslie Attending Provider Kishan BREAUX, STORE PROMOTER-C Leslie Referring Provider Kishan BREAUX, STORE PROMOTER-C Leslie Other Provider [phone] Dr. Marck Orellana Attending Provider Dr. Pietro Turner Attending Provider [phone] Dr. Pietro Turner Primary Care Provider Dr. Pietro Turner Referring Provider Holley STORE PROMOTER, STORE PROMOTER-C Leslie Attending Provider Dr. Pietro Turner Primary Care Provider Dr. Pietro Turner Attending Provider Dr. Pietro Turner Referring Provider Brooks KILGORE PA Solitario Attending Provider Roof STORE PROMOTER, STORE PROMOTER-C Jocelyne Tijerina Attending Provider KASEY INGRAM Primary Care Unavail Dr. Pietro Padron Primary Care Provider Dr. Pietro Turner Referring Provider Noble STORE PROMOTER, STORE PROMOTER-C Jocelyne Tijerina Attending Provider Dr. Pietro Turner Attending Provider Dr. Pietro Turner Primary Care Provider Dr. Pietro Turner MD Primary Care Provider Dr. Pietro Turner MD Referring Provider Dr. Dimitry Camp MD Attending Provider [phone] Solitario Padilla Attending Provider Roof STORE PROMOTER-C, Jocelyne H Attending Provider Roof STORE PROMOTER-C, Jocelyne Tijerina Referring Provider Esteban OMALLEY, Dr. Acharya Attending Provider Zoë OMALLEY, Dr. Moraes Other Provider Dr. Lamberto Desai DO Attending Provider Dr. Lamberto Desai DO Emergency Provider Dr. Pietro Turner MD Attending Provider Dr. Pietro Turner MD Primary Care Provider Johnny OMALLEY, Dr. Hutson Referring Provider Solitario Padilla Attending Provider Roof STORE PROMOTER-C, Jocelyne H Attending Provider Roof STORE PROMOTER-C, Jocelyne H Referring Provider Esteban OMALLEY, Dr. Acharya Attending Provider [phone] Zoë OMALLEY, Dr. Moraes Attending Provider [phone] Zoë OMALLEY, Dr. Moraes Other Provider Lloyd CHANG, Dr. Orantes Attending Provider Lloyd CHANG, Dr. Orantes Emergency Provider Johnny OMALLEY, Dr. Hutson Attending Provider Johnny OMALLEY, Dr. Hutson Primary Care Provider Johnny OMALLEY, Dr. Hutson Referring Provider DIOGENES SHERMAN Attending Unavailable KASEY INGRAM Primary Care Unavail man Turner MD, Dr. Hutson Primary Care Provider Johnny OMALLEY, Dr. Hutson Attending Provider Johnny OMALLEY, Dr. Hutson Primary Care Provider Johnny OMALLEY, Dr. Hutson Attending Provider Johnny OMALLEY, Dr. Hutson Referring Provider Roof STORE PROMOTER-C, Jocelyne H Referring Provider Johnny OMALLEY, Dr. Hutson Primary Care Physician Johnny OMALLEY, Dr. Hutson Attending Physician Johnny OMALLEY, Dr. Hutson Primary Care Physician [phone] Johnny OMALLEY, Dr. Hutson Attending Physician Johnny OMALLEY, Dr. Hutson Referring Provider Roof STORE PROMOTER-C, Jocelyne H Referring Provider Roof STORE PROMOTER-C, Jocelyne H Attending Physician [phone] Solitario Padilla Attending Unavailable Johnny, Pietro Referring Unavailable Johnny, Pietro Primary Care Unavailable Johnny, Pietro Attending Unavailable Johnny, Pietro Primary Care Unavailable Johnny, Pietro Referring Unavailable CalabrettaJuan CarlosDimitry Attending Unavailable Johnny, Pietro Primary Care Unavailable DesaiLamberto Attending Unavailable Johnny, Pietro Primary Care Unavailable Roof STORE PROMOTER, Jocelyne H Attending Unavailable Roof STORE PROMOTER, Jocelyne H Referring Unavailable Johnny, Pietro Primary Care Unavailable Johnny, Pietro Primary Care Unavailable Johnny, Pietro Attending Unavailable Johnny, Pietro Referring Unavailable Calabretta Dimitry Consulting Unavailable Calabretta, Dimitry Attending Unavailable Johnny, Pietro Primary Care Unavailable Johnny, Pietro Primary Care Unavailable Johnny, Pietro Attending Unavailable Solitario Padilla Attending Unavailable Johnny, Pietro Referring Unavailable Johnny, Pietro Primary Care Unavailable Johnny, Pietro Primary Care Unavailable Johnny, Pietro Attending Unavailable Johnny, Pietro Referring Unavailable Johnny, Pietro Primary Care Unavailable Johnny, Pietro Attending Unavailable Roof STORE PROMOTER, Jocelyne H Referring Unavailable Johnny, Pietro Referring Unavailable Johnny, Pietro Attending Unavailable Johnny, Pietro Primary Care Unavailable Johnny, Pietro Referring Unavailable Johnny, Pietro Attending Unavailable Johnny, Pietro Primary Care Unavailable Solitario Padilla Attending Unavailable Johnny, Pietro Referring Unavailable Johnny, Pietro Primary Care Unavailable Esteban, [place] Attending Unavailable Johnny, Pietro Primary Care Unavailable Johnny, Pietro Referring Unavailable Esteban, [place] Attending Unavailable Johnny, Pietro Primary Care Unavailable Johnny, Pietro Primary Care Unavailable Johnny, Pietro Referring Unavailable Roof STORE PROMOTER, Jocelyne H Attending Unavailable Johnny, Pietro Referring Unavailable Calabretta, Dimitry Attending Unavailable Johnny, Pietro Primary Care Unavailable Solitario Padilla Attending Unavailable Solitario Padilla Referring Unavailable Johnny, Pietro Primary Care Unavailable Solitario Padilla Attending Unavailable Johnny, Pietro Primary Care Unavailable Brooks PASolitario Attending Unavailable Johnny, Pietro Referring Unavailable Johnny, Pietro Primary Care Unavailable Johnny, Pietro Referring Unavailable Johnny, Pietro Primary Care Unavailable Esteban, Marck Attending Unavailable Johnny, Pietro Referring Unavailable Roof STORE PROMOTER, Jocelyne H Attending Unavailable Johnny, Pietro Primary Care Unavailable Johnny, Pietro Primary Care Unavailable Johnny, Pietro Attending Unavailable Johnny, Pietro Primary Care Unavailable Johnny, Pietro Attending Unavailable Johnny, Pietro Primary Care Unavailable Johnny, Pietro Attending Unavailable Johnny, Pietro Primary Care Unavailable Johnny, Pietro Attending Unavailable Johnny, Pietro Referring Unavailable Johnny, Pietro Attending Unavailable Johnny, Pietro Referring Unavailable Johnny, Pietro Primary Care Unavailable Johnny, Pietro Attending Unavailable Johnny, Pietro Primary Care Unavailable Johnny, Pietro Attending Unavailable Johnny, Pietro Primary Care Unavailable Johnny, Pietro Referring Unavailable Roof STORE PROMOTER, Jocelyne Tijerina Attending Unavailable Johnny, Pietro Primary Care Unavailable Allergies Allergy Classification Reported Allergen(s) Allergy Type Date of Onset Reaction(s) Facility (2 sources) Penicillin; Translations: [penicillins] Drug Allergy [facility] (20 sources) Lisinopril Drug Allergy 02-17-20 22 cough [facility] (20 sources) Penicillins; Translations: [PENICILLINS] Allergy to substance 11-04-19 09 Other [facility] (20 sources) Spironolactone Drug Allergy 02-17-20 22 elevated blood sugar [facility] (8 sources) Kxvpjtr-Mcs-Pgg Reductase Inhibitor Propensity to adverse reactions 04-27-20 25 myalgias [facility] (1 source) Lisinopril Drug Allergy 08-24-20 25 [facility] (1 source) Spironolactone Drug Allergy 08-24-20 25 [facility] (1 source) Hdkmndp-Hqq-Pmf Reductase Inhibitor Drug allergy (disorder) 08-24-20 25 [facility] Medications Current Medications Medication Drug Class(es) Dates Sig (Normalized) Sig (Original) Albuterol (Eqv-ProAir HFA) 90 mcg/inh inhalation aerosol (2 sources) Start: 08-12-2021 take 1 dose by inhalation every six hours Albuterol (Eqv-ProAir HFA) 90 mcg/inh inhalation aerosol Dose = 2 puff(s), Inhalation, q6hr, 0 Refill(s) Start Date: 08/12/21 Status: Ordered cholecalciferol 0.125 mg oral tablet (10 sources) Vitamin D Start: 05-05-2024 1 ml evolocumab 140 mg/ml auto-injector (18 sources) PCSK9 Inhibitor Start: 07-28-2025 Start: 03-11-2025 End: 06-11-2025 ferrous sulfate 325 mg oral tablet (20 sources) Start: 05-05-2024 Start: 05-11-2022 Ferrous Sulfat e Active 325 MG PO TWICE A DAY May 11, 2022 12:00am Tab twice daily for 30 days then once daily thereafter Start: 09-21-2021 End: 08-23-2023 Flash Glucose Scanning Reade r (Freestyle Jean 2 [place]) misc (9 sources) Start: 02-05-2024 Flash Glucose Scanning [place] (Freestyle Jean 2 [place]) misc Active 0 .Route 1 February 05, 2024 12:00am As directed Start: 02-05-2024 Flash Glucose Scanning [place] (Freestyle Jean 2 [place]) misc Active 0 .Route 1 February 05, 2024 12:00am As directed Flash Glucose Sensor (Freest yle Jean 2 Sensor) kit (16 sources) Start: 03-13-2025 Flash Glucose Sensor (Freestyle Jean 2 Sensor) kit Active 0 .Route 1 March 13, 2025 3:10pm As directed Start: 02-05-2024 End: 03-13-2025 Flash Glucose Sensor (Freest yle Jean 2 Sensor) kit Discontinued 0 .Route 1 February 05, 2024 12:00am March 13, 2025 3:10pm As directed Start: 02-05-2024 Flash Glucose Sensor (Freestyle Jean 2 Sensor) kit Active 0 .Route 1 February 05, 2024 12:00am As directed 24 hr isosorbide mononitrate 60 mg extended release oral tablet (20 sources) Nitrate Vasodilator Start: 09-05-2024 End: 03-13-2025 Start: 05-05-2024 End: 09-05-2024 Isosorbide Mononitrate 30 mg tablet extended release 24 hr Discontinued 60 mg PO 1400,0100 May 05, 2024 3:52pm September 05, 2024 2:11pm Start: 02-11-2024 End: 09-05-2024 Start: 10-09-2022 End: 02-11-2024 Start: 10-09-2022 End: 09-25-2023 take 1 tablet by mouth once daily, then take 1 tablet by mouth every twenty-four hours Isosorbide Mononitrate 60 mg tablet extended release 24 hr Discontinued 60 mg PO DAILY 90 3 October 31, 2022 5:22pm September 25, 2023 4:18pm Start: 10-25-2021 End: 10-09-2022 Start: 10-25-2021 End: 10-09-2022 take 1 tablet by mouth once daily, then take 1 tablet by mouth every twenty-four hours Isosorbide Mononitrate 30 mg tablet extended release 24 hr Discontinued 30 mg PO DAILY 90 3 December 09, 2021 5:37pm October 09, 2022 1:57pm magnesium glycinate 100 mg oral tablet (20 sources) Start: 09-05-2024 take 1 tablet by mouth at bedtime Magnesium Glycinate (Mag Glycinate) 100 mg tablet Active 100 mg PO AT BEDTIME September 05, 2024 2:13pm Complies with drug therapy Start: 05-23-2024 End: 09-05-2024 Start: 05-23-2024 End: 09-05-2024 Magnesium Glycinate (Mag Gly cinate) 100 mg tablet Discontinued 400 mg PO AT BEDTIME May 23, 2024 12:00am September 05, 2024 2:15pm melatonin 10 mg oral capsule (20 sources) Start: 05-23-2024 End: 09-05-2024 Start: 05-23-2024 End: 09-05-2024 take 1 capsule by mouth at bedtime as needed for sleep Melatonin 10 mg capsule Active 10 mg PO AT BEDTIME as needed for sleep September 05, 2024 2:13pm Complies with drug therapy Start: 12-22-2021 End: 02-16-2022 Start: 12-22-2021 End: 02-16-2022 Melatonin 5 mg capsule Disco ntinued mg PO December 22, 2021 1:00am February 16, 2022 10:37am Start: 12-22-2021 End: 02-16-2022 Melatonin Discontinued MG PO December 22, 2021 1:00am February 16, 2022 10:37am mirtazapine 15 mg oral table t (20 sources) Start: 08-24-2025 Start: 07-28-2025 End: 08-10-2025 Start: 07-28-2025 take 1 tablet by jeanine th at bedtime Mirtazapine 7.5 mg tablet Active 7.5 mg PO AT BEDTIME July 28, 2025 12:00am Complies with drug therapy Start: 05-18-2025 End: 07-28-2025 Start: 11-09-2022 End: 05-05-2024 Start: 05-02-2022 End: 11-09-2022 take 4 tablets by mouth at bedtime Mirtazapine 7.5 mg tablet Discontinued 30 mg PO AT BEDTIME May 02, 2022 2:10pm November 09, 2022 12:16pm Anxiety Start: 05-02-2022 End: 11-09-2022 take 30 mg by mouth at bedtime Mirtazapine Discontinue d 30 MG PO AT BEDTIME May 02, 2022 2:10pm November 09, 2022 12:16pm Start: 02-16-2022 End: 05-02-2022 take 2 tablets by mouth at bedtime as needed for anxiety Mirtazapine 7.5 mg tablet Discontinued 15 mg PO AT BEDTIME as needed for Anxiety February 16, 2022 10:37am May 02, 2022 2:11pm Start: 02-16-2022 End: 05-02-2022 take 15 mg by mouth at bedtime Mirtazapine Discontinue d 15 MG PO AT BEDTIME February 16, 2022 10:37am May 02, 2022 2:11pm Start: 10-05-2021 End: 11-09-2022 Start: 10-05-2021 End: 02-16-2022 take 1 tablet by mouth at bedtime as needed for anxiety Mirtazapine 7.5 mg tablet Discontinued 7.5 mg PO AT BEDTIME as needed for Anxiety October 05, 2021 1:00am February 16, 2022 10:38am Start: 02-28-2021 End: 10-05-2021 Start: 02-28-2021 End: 10-05-2021 take 7.5 mg by mouth at bedtime as needed Mirtazapine (Remeron) 15 mg tablet Discontinued 7.5 mg PO AT BEDTIME as needed February 28, 2021 12:00am October 05, 2021 10:27am DR Snow Start: 08-20-2020 End: 01-07-2021 Multiple Vitamins oral capsule (2 sources) Start: 08-12-2021 take 1 capsule by mouth once daily Multiple Vitamins oral capsule Dose = 1 cap(s), Oral, Daily, 0 Refill(s) Start Date: 08/12/21 Status: Ordered Multivitamin tablet (8 sources) Start: 01-01-2025 Multivitamin t ablet Active 1 {tbl} PO daily January 01, 2025 1:00am Complies with drug therapy Start: 01-01-2025 Multivitamin t ablet Active 1 {tbl} PO daily January 01, 2025 1:00am nitroglycerin 0.4 mg subling ual tablet (20 sources) Nitrate Vasodilator Start: 10-24-2021 End: 03-13-2025 Start: 10-24-2021 End: 03-13-2025 Nitroglycerin (Nitrostat) 0. 4 mg tablet, sublingual Discontinued 0.4 mg SL every 5 to 15 minutes as needed for chest pain 20 01January 11, 2024 4:33pm March 13, 2025 11:44am do not exceed 3 doses per episode Start: 10-24-2021 End: 01-11-2024 Nitroglycerin (Nitrostat) 0. 4 mg tablet, sublingual Discontinued 0.4 MG SL every 5 to 15 minutes February 20, 2023 11:38am January 11, 2024 4:33pm do not exceed 3 doses per episode nitroglycerin 0.4 mg sublingual tablet (2 sources) Start: 12-17-2020 nitroglycerin 0.4 mg sublingual tablet 0.4 mg Dose = 1 tab(s), Sublingual, q5min, PRN as needed for chest pain, not to exceed 3 doses/15 min--if pain persists, seek medical attention, # 100 tab(s), 0 Refill(s), Pharmacy: [facility], 185, cm, 12/09/20 14:16:00 EST, Height... Start Date: 12/17/20 Status: Ordered Wilber-3 1050 mg oral capsule (2 sources) Start: 07-15-2020 Wilber-3 1050 m g oral capsule Dose : 1,050 mg = 1 cap(s), Oral, qDay, # 90 cap(s), 0 Refill(s) Start Date: 07/15/20 Status: Ordered Wilber-3 Fatty Acids (13 sources) Start: 08-20-2020 take 1000 mg by mouth once daily Wilber-3 Fatty Acids Active 1000 MG PO DAILY August 20, 2020 9:18am Start: 08-20-2020 End: 10-18-2022 take 1000 mg by mouth once daily Wilber-3 Fatty Acids Discontinued 1000 MG PO DAILY August 20, 2020 12:00am October 18, 2022 3:15pm Start: 08-20-2020 End: 10-18-2022 take 1000 mg by mouth once daily Wilber-3 Fatty Acids Discontinued 1000 MG PO DAILY August 19, 2020 11:00pm October 18, 2022 2:15pm Start: 08-20-2020 take 1000 mg by mout h once daily Wilber-3 Fatty Acids Active 1000 MG PO DAILY August 19, 2020 11:00pm Start: 08-20-2020 take 1000 mg by mout h once daily Wilber-3 Fatty Acids Active 1000 MG PO DAILY August 20, 2020 12:00am rivaroxaban 2.5 mg oral tablet (4 sources) Factor Xa Inhibitor Start: 08-12-2021 Xarelto 2. 5 mg oral tablet Dose : 2.5 mg = 1 tab(s), Oral, BID, # 60 tab(s), 11 Refill(s), Pharmacy: [id number], 185.4, cm, 08/12/21 10:46:00 EDT, Height, 119.2, kg, 08/12/21 10:46:00 EDT, Dosing Weight Start Date: 08/12/21 Status: Ordered Semaglutide (20 sources) Start: 08-07-2025 End: 08-24-2025 Start: 12-09-2024 End: 06-10-2025 Start: 12-09-2024 End: 06-10-2025 Semaglutide 1 mg/dose (4 mg/ 3 mL) pen injector Discontinued 1 mg SC EVERY WEEK 3 5 December 09, 2024 12:16pm June 10, 2025 1:21pm for 4 weeks Start: 12-09-2024 Semaglutide 1 mg/dose (4 mg/3 mL) pen injector Active 1 mg SC EVERY WEEK 3 December 09, 2024 12:16pm for 4 weeks Start: 12-09-2024 Start: 12-09-2024 Semaglutide 1 mg/dose (4 mg/3 mL) pen injector Active 1 mg SC EVERY WEEK 3 December 09, 2024 12:16pm for 4 weeks Start: 05-12-2024 End: 06-24-2024 Semaglutide 1 mg/dose (4 mg/ 3 mL) pen injector Discontinued 1 mg SC EVERY WEEK 3 5 May 12, 2024 8:01am June 24, 2024 12:36pm for 4 weeks Start: 05-12-2024 End: 06-24-2024 Start: 05-12-2024 End: 06-24-2024 Semaglutide 1 mg/dose (4 mg/ 3 mL) pen injector Discontinued 1 mg SC EVERY WEEK 3 May 12, 2024 8:01am June 24, 2024 12:36pm for 4 weeks Semaglutide (5 sources) Start: 08-24-2025 Start: 06-10-2025 End: 08-03-2025 Start: 06-10-2025 Semaglutide 2 mg/dose (8 mg/3 mL) pen injector Active 2 mg SC EVERY WEEK 3 June 10, 2025 1:20pm for 4 weeks Complies with drug therapy Start: 06-25-2024 End: 07-18-2024 Start: 06-25-2024 End: 07-18-2024 Semaglutide (Ozempic) 2 mg/d ose (8 mg/3 mL) pen injector Discontinued 2 mg SC EVERY WEEK 3 June 25, 2024 12:00am July 18, 2024 12:26am Type 2 diabetes mellitus Type 2 diabetes mellitus without complications Diabetes Semaglutide 2 mg/dose (8 mg/3 mL) pen injector (3 sources) Start: 06-10-2025 Semaglutide 2 mg/dose (8 mg/3 mL) pen injector Active 2 mg SC EVERY WEEK 3 June 10, 2025 1:20pm for 4 weeks spironolactone 25 mg oral tablet (2 sources) Aldosterone Antagonist Start: 08-12-2021 spironolactone 25 mg oral tablet Dose : 25 mg = 1 tab(s), Oral, qDayM, # 30 tab(s), 11 Refill(s), Pharmacy: [id number], 185.4, cm, 08/12/21 10:46:00 EDT, Height, kg, 08/12/21 10:46:00 EDT, Dosing Weight Start Date: 08/12/21 Status: Ordered 1 ml testosterone cypionate 200 mg/ml injection (20 sources) Androgen Start: 08-12-2025 Start: 01-31-2023 End: 08-12-2025 Start: 01-31-2023 End: 07-01-2025 inject 100 mg by intramuscular injection every other week Testosterone Cypionate 200 mg/mL oil Discontinued 100 mg IM every 2 weeks 03 02January 02, 2025 1:46pm July 01, 2025 9:27am PLEASE dispense as five 1ml vials Start: 01-31-2023 End: 09-30-2023 inject 100 mg by intramuscular injection every other week Testosterone Cypionate Discontinued 100 MG IM every 2 weeks May 23, 2023 8:07am September 30, 2023 11:48am PLEASE dispense as five 1ml vials Start: 06-02-2022 End: 01-29-2023 Start: 06-02-2022 End: 01-29-2023 inject 100 mg by intramuscular injection every other week Testosterone Cypionate 200 mg/mL oil Discontinued 100 mg IM every 2 weeks 11 02October 09, 2022 1:43pm January 29, 2023 3:11pm Start: 06-02-2022 End: 01-29-2023 inject 100 mg by intramuscular injection every other week Testosterone Cypionate Discontinued 100 MG IM every 2 weeks October 09, 2022 1:43pm January 29, 2023 3:11pm Start: 05-22-2022 End: 06-02-2022 Start: 05-22-2022 End: 06-02-2022 inject 100 mg by intramuscular injection every other week Testosterone Cypionate Discontinued 100 MG IM every 2 weeks May 22, 2022 12:00am June 02, 2022 1:51pm Start: 01-03-2022 End: 05-22-2022 Start: 01-03-2022 End: 05-22-2022 Testosterone 1 % (50 mg/5 gr am) gel in packet Discontinued 2 NMA TD DAILY 150 3 May 15, 2022 4:51pm May 22, 2022 8:05am Start: 01-03-2022 End: 05-22-2022 Testosterone Discontinued 2 PACKET TD DAILY 150 May 15, 2022 4:51pm May 22, 2022 8:05am trifluoperazine 1 mg oral ta blet (20 sources) Phenothiazine Start: 08-24-2025 Start: 05-05-2024 End: 08-24-2025 Start: 05-05-2024 Trifluoperazin e 2 mg tablet Active 2 mg PO 299May 05, 2024 12:00am For nervous tics. Complies with drug therapy Start: 08-20-2020 End: 02-19-2024 Start: 08-20-2020 End: 02-19-2024 take 1 tablet by mouth once daily Trifluoperazine 1 mg tablet Discontinued 2 mg PO DAILY August 23, 2023 3:18pm February 19, 2024 2:34am Start: 08-20-2020 End: 02-19-2024 take 2 mg by mouth once daily Trifluoperazine Disconti nued 2 MG PO DAILY August 23, 2023 3:18pm February 19, 2024 2:34am Start: 08-20-2020 End: 10-18-2022 take 3 mg by mouth once daily Trifluoperazine Disconti nued 3 MG PO DAILY August 20, 2020 12:00am October 18, 2022 3:15pm Start: 08-22-2014 End: 08-20-2020 (20 sources) Start: 03-13-2025 Start: 01-01-2025 Start: 06-25-2024 End: 07-18-2024 Start: 05-23-2024 End: 01-01-2025 Start: 05-23-2024 End: 01-01-2025 Start: 05-13-2024 Start: 05-05-2024 Start: 02-05-2024 End: 03-13-2025 Start: 02-05-2024 Start: 01-28-2024 End: 05-13-2024 Start: 01-22-2024 End: 02-05-2024 Start: 01-17-2024 End: 05-05-2024 Start: 01-17-2024 End: 05-05-2024 Start: 01-17-2024 End: 02-05-2024 Start: 11-06-2023 End: 11-13-2023 Start: 01-31-2023 End: 01-28-2024 Start: 05-22-2022 Start: 05-22-2022 End: 01-31-2023 Start: 05-22-2022 End: 05-22-2022 Start: 08-20-2020 End: 10-18-2022 Start: 08-22-2014 End: 08-20-2020 Start: 08-22-2014 End: 08-20-2020 Start: 08-22-2014 End: 08-20-2020 Completed/Discontinued Medications Medication Drug Class(es) Dates Sig (Normalized) Sig (Original) Albuterol Sulfate (20 sources) beta2-Adrenergic Agonist Start: 08-10-2021 End: 09-21-2021 take 1 puff(s) by inhalation every six hours Albuterol Sulfate Discontinued 2 PUFF INHALATION EVERY 6 HOURS 8.5 August 10, 2021 9:51am September 21, 2021 4:51pm Start: 08-10-2021 End: 09-21-2021 Start: 08-10-2021 End: 09-21-2021 Albuterol Sulfate 90 mcg/act uation HFA aerosol inhaler Discontinued 2 NMA INHALATION EVERY 6 HOURS as needed for shortness of breath or wheezing 8.5 1 August 10, 2021 12:00am September 21, 2021 4:51pm Start: 08-10-2021 End: 09-21-2021 take 1 puff(s) by inhalation every six hours Albuterol Sulfate Discontinued 2 PUFF INHALATION EVERY 6 HOURS 8.August 10, 2021 12:00am September 21, 2021 4:51pm amLODIPine 5 mg oral tablet (20 sources) Dihydropyridine Calcium Channel Luly Start: 05-05-2024 End: 01-23-2025 Start: 11-06-2023 End: 11-13-2023 Amlodipine 5 mg tablet Disco ntinued 0 .ROUTE .COMPLEX 90 3 November 06, 2023 9:40am November 13, 2023 2:20pm TAKE 1 TABLET DAILY Start: 11-06-2023 End: 11-13-2023 Amlodipine 5 mg tablet Disco ntinued 0 .ROUTE .COMPLEX 90 November 06, 2023 9:40am November 13, 2023 2:20pm TAKE 1 TABLET DAILY Start: 11-06-2023 End: 11-13-2023 Amlodipine Discontinued 0 .R OUTE .COMPLEX 90 November 06, 2023 9:40am November 13, 2023 2:20pm TAKE 1 TABLET DAILY Start: 11-09-2022 End: 02-11-2024 aspirin 81 mg delayed release oral tablet (20 sources) Platelet Aggregation Inhibitor, Nonsteroidal Anti-inflammatory Drug Start: 08-20-2020 End: 05-23-2024 Start: 07-28-2020 aspirin 81 mg oral delayed release tablet Dose : 81 mg = 1 tab(s), Oral, Daily, # 30 tab(s), 11 Refill(s), Pharmacy: [id number], 185.5, cm, 07/24/20 20:26:00 EDT, Height, kg, 07/27/20 6:47:00 EDT, Dosing Weight Start Date: 07/28/20 Status: Ordered atenolol 50 mg oral tablet (20 sources) beta-Adrenergic Luly Start: 12-08-2020 End: 04-07-2021 Start: 10-05-2020 End: 07-15-2021 Start: 10-05-2020 End: 07-15-2021 take 1 tablet by mouth twice daily Atenolol 50 mg tablet Discontinued 50 mg PO TWICE A DAY 180 0 April 07, 2021 3:28pm April 21, 2021 6:21pm Start: 08-22-2014 End: 08-20-2020 Start: 08-22-2014 End: 08-20-2020 take 1 tablet by mouth twice daily Atenolol 25 MG tablet Discontinued 25 mg PO TWICE A DAY August 22, 2014 12:00am August 20, 2020 9:18am atorvastatin 40 mg oral tablet (20 sources) HMG-CoA Reductase Inhibitor Start: 01-14-2024 End: 11-25-2024 take 1 tablet by mouth at bedtime Atorvastatin 40 mg tablet Discontinued 40 mg PO AT BEDTIME 90 90 October 27, 2024 1:15pm November 25, 2024 4:00pm Start: 11-08-2023 End: 01-14-2024 Atorvastatin 40 mg tablet Discontinued 40 mg PO AT BEDTIME 90 90 3 November 15, 2023 12:39pm January 14, 2024 9:56am Take 20mg with 40mg to make 60mg total; alternate 40 mg and 60 mg Start: 11-08-2023 End: 11-08-2023 Atorvastatin 40 mg tablet Discontinued 60 mg PO AT BEDTIME 135 90 3 November 08, 2023 3:18pm November 08, 2023 4:29pm Start: 11-08-2023 End: 11-08-2023 take 60 mg by mouth at bedtime Atorvastatin Discontinu ed 60 MG PO AT BEDTIME 135 90 November 08, 2023 3:18pm November 08, 2023 4:29pm Start: 11-08-2023 End: 01-03-2024 Start: 04-19-2023 End: 11-25-2024 Start: 04-19-2023 End: 11-08-2023 take 1 tablet by mouth at bedtime Atorvastatin 40 mg tablet Discontinued 40 mg PO AT BEDTIME 90 3 April 25, 2023 2:14pm November 08, 2023 11:38am Dose has been decreased Start: 07-10-2022 End: 04-19-2023 Start: 11-28-2021 End: 07-10-2022 take 2 tablets by mouth at bedtime Atorvastatin 40 mg tablet Discontinued 80 mg PO AT BEDTIME 90 3 July 10, 2022 9:04am July 10, 2022 10:57am Start: 11-28-2021 End: 07-10-2022 take 80 mg by mouth at bedtime Atorvastatin Discontinu ed 80 MG PO AT BEDTIME 90 July 10, 2022 9:04am July 10, 2022 10:57am Start: 10-05-2021 End: 07-10-2022 Start: 10-05-2021 End: 11-28-2021 take 1 tablet by mouth at bedtime Atorvastatin 40 mg tablet Discontinued 40 mg PO AT BEDTIME 90 3 October 05, 2021 10:34am November 28, 2021 1:51pm Start: 08-20-2020 End: 10-05-2021 Start: 08-20-2020 End: 10-05-2021 take 1 tablet by mouth once daily Atorvastatin 80 mg tablet Discontinued 80 mg PO DAILY 90 May 06, 2021 10:40am October 05, 2021 10:24am azithromycin 250 mg oral tablet (8 sources) Macrolide Antimicrobial Start: 04-27-2025 End: 05-18-2025 B Complex-Vitamin C-Folic Acid (13 sources) Start: 08-22-2014 End: 08-20-2020 B Complex-Vitamin C-Folic Acid Discontinued 1 EACH PO August 22, 2014 7:08pm August 20, 2020 9:19am Start: 08-22-2014 End: 08-20-2020 B Complex-Vitamin C-Folic Ac id Discontinued 1 EACH PO August 21, 2014 11:00pm August 20, 2020 8:19am Start: 08-22-2014 End: 08-20-2020 B Complex-Vitamin C-Folic Ac id Discontinued 1 EACH PO August 22, 2014 12:00am August 20, 2020 9:19am B Complex-Vitamin C-Folic Acid 1 EACH tablet (8 sources) Start: 08-22-2014 End: 08-20-2020 B Complex-Vitamin C-Folic Acid 1 EACH tablet Discontinued 1 NMA PO August 22, 2014 12:00am August 20, 2020 9:19am benztropine mesylate 2 mg oral tablet (20 sources) Anticholinergic, Antihistamine Start: 08-22-2014 End: 08-20-2020 Start: 08-22-2014 End: 08-20-2020 take 0.5 mg by mouth three times daily Benztropine Discontinued 0.5 MG PO THREE TIMES A DAY August 22, 2014 12:00am August 20, 2020 9:18am betamethasone 0.5 mg/ml topi lucio cream (13 sources) Corticosteroid Start: 11-07-2023 End: 03-25-2024 betamethasone 0.5 mg/ml / clotrimazole 10 mg/ml topical cream (14 sources) Azole Antifungal, Corticosteroid Start: 08-31-2023 End: 09-28-2023 Start: 08-31-2023 End: 09-28-2023 Clotrimazole-Betamethasone 1 -0.05 % cream Discontinued 1 NMA TOPICAL TWICE A DAY 45 28 0 August 31, 2023 12:00am September 27, 2023 1:00am September 28, 2023 1:05am Start: 08-31-2023 End: 09-28-2023 Clotrimazole-Betamethasone D iscontinued 1 APPLIC TOPICAL TWICE A DAY 45 August 31, 2023 12:00am September 28, 2023 1:05am Blood-Glucose Sensor (Dexcom G6 Sensor) device (10 sources) Start: 01-17-2024 End: 05-05-2024 Blood-Glucose Sensor (Dexcom G6 Sensor) device Discontinued 0 .Route 3 5 January 17, 2024 12:00am May 05, 2024 3:51pm As directed Start: 01-17-2024 End: 05-05-2024 Blood-Glucose Sensor (Dexcom G6 Sensor) device Discontinued 0 .Route 3 January 17, 2024 12:00am May 05, 2024 3:51pm As directed Start: 01-17-2024 Blood-Glucose Sensor (Dexcom G6 Sensor) device Active 0 .Route 3 January 17, 2024 12:00am As directed Blood-Glucose Transmitter (Dexcom G6 Transmitter) device (10 sources) Start: 01-17-2024 End: 05-05-2024 Blood-Glucose Transmitter (Dexcom G6 Transmitter) device Discontinued 0 .Route 1 January 17, 2024 12:00am May 05, 2024 3:51pm As directed Start: 01-17-2024 End: 05-05-2024 Blood-Glucose Transmitter (D excom G6 Transmitter) device Discontinued 0 .Route 1 January 17, 2024 12:00am May 05, 2024 3:51pm As directed Start: 01-17-2024 Blood-Glucose Transmitter (Dexcom G6 Transmitter) device Active 0 .Route 1 January 17, 2024 12:00am As directed 24 hr buPROPion hydrochlorid e 300 mg extended release oral tablet (20 sources) Aminoketone Start: 10-05-2021 End: 08-23-2023 Start: 08-20-2020 End: 10-05-2021 canagliflozin 100 mg oral tablet (20 sources) Sodium-Glucose Cotransporter 2 Inhibitor Start: 02-28-2021 End: 05-26-2021 carvedilol 25 mg oral tablet (20 sources) alpha-Adrenergic Luly, beta-Adrenergic Luly Start: 10-05-2021 End: 10-23-2024 Start: 08-12-2021 Coreg 25 mg or al tablet Dose : 25 mg = 1 tab(s), Oral, BID, # 180 tab(s), 3 Refill(s), Pharmacy: [facility], 185.4, cm, 08/12/21 10:46:00 EDT, Height, kg, 08/12/21 10:46:00 EDT, Dosing Weight Start Date: 08/12/21 Status: Ordered Start: 07-15-2021 End: 10-05-2021 Start: 07-15-2021 End: 10-05-2021 take 2 tablets by mouth twice daily at mealtime Carvedilol (Coreg) 12.5 mg tablet Discontinued 25 mg PO TWICE A DAY August 10, 2021 9:36am October 05, 2021 10:26am must administer with a meal/food Start: 08-20-2020 End: 10-06-2020 Start: 08-20-2020 End: 09-14-2020 take 1 tablet by mouth twice daily at mealtime Carvedilol 6.25 mg tablet Discontinued 6.25 mg PO TWICE A DAY 180 1 September 03, 2020 2:52pm September 14, 2020 4:40pm must administer with a meal/food Start: 08-20-2020 End: 10-06-2020 take 2 tablets by mouth twice daily at mealtime Carvedilol 6.25 MG tablet Discontinued 12.5 mg PO TWICE A DAY September 14, 2020 4:39pm October 06, 2020 6:02pm must administer with a meal/food cinnamon bark 500 mg oral capsule (20 sources) Start: 04-07-2021 End: 02-16-2022 Cinnamon Preparation (20 sources) Non-Standardized Food Allergenic Extract Start: 08-22-2014 End: 08-20-2020 take 1 tablet by mouth once daily Cinnamon Discontinued 1 TABLET PO DAILY August 22, 2014 7:08pm August 20, 2020 9:18am Start: 08-22-2014 End: 08-20-2020 Cinnamon Discontinued 1 {tbl } PO DAILY August 22, 2014 12:00am August 20, 2020 9:18am Start: 08-22-2014 End: 08-20-2020 take 1 tablet by mouth once daily Cinnamon Discontinued 1 TABLET PO DAILY August 21, 2014 11:00pm August 20, 2020 8:18am Start: 08-22-2014 End: 08-20-2020 take 1 tablet by mouth once daily Cinnamon Discontinued 1 TABLET PO DAILY August 22, 2014 12:00am August 20, 2020 9:18am clonazePAM 0.5 mg oral table t (20 sources) Benzodiazepine Start: 08-23-2023 End: 01-03-2024 Start: 08-23-2023 End: 01-03-2024 take 2 tablets by mouth 30 minutes before bedtime Clonazepam 0.5 mg tablet Discontinued 1 mg PO AT BEDTIME August 23, 2023 12:00am January 03, 2024 2:40pm administer 30 minutes before bedtime Start: 08-23-2023 End: 01-03-2024 take 1 mg by mouth 30 minutes before bedtime Clonazepam Discontinued 1 MG PO AT BEDTIME August 23, 2023 12:00am January 03, 2024 2:40pm administer 30 minutes before bedtime Start: 11-09-2022 End: 01-29-2023 clopidogrel 75 mg oral table t (16 sources) P2Y12 Platelet Inhibitor Start: 11-09-2022 End: 09-25-2023 dapagliflozin 10 mg oral tab let (17 sources) Sodium-Glucose Cotransporter 2 Inhibitor Start: 10-18-2022 End: 11-01-2022 24 hr desvenlafaxine 50 mg extended release oral tablet (20 sources) Serotonin and Norepinephrine Reuptake Inhibitor Start: 12-22-2021 End: 02-16-2022 diazePAM 5 mg oral tablet (20 sources) Benzodiazepine Start: 08-31-2024 End: 11-06-2024 Start: 07-18-2024 End: 08-28-2024 doxepin hydrochloride 25 mg oral capsule (10 sources) Tricyclic Antidepressant Start: 05-23-2024 End: 07-09-2024 Start: 05-23-2024 End: 07-09-2024 Doxepin 25 mg capsule Discon tinued 25 mg PO 399May 23, 2024 12:00am July 09, 2024 2:39pm doxycycline hyclate 100 mg o ral tablet (20 sources) Tetracycline-class Drug Start: 02-21-2024 End: 03-25-2024 Start: 07-29-2022 End: 10-18-2022 DULoxetine 60 mg delayed release oral capsule (10 sources) Serotonin and Norepinephrine Reuptake Inhibitor Start: 01-01-2025 End: 08-10-2025 empagliflozin 25 mg oral tab let (20 sources) Sodium-Glucose Cotransporter 2 Inhibitor Start: 11-15-2023 End: 03-25-2024 Start: 11-01-2022 End: 06-18-2023 ertugliflozin 15 mg oral tab let (20 sources) Start: 09-25-2023 End: 11-15-2023 Start: 06-18-2023 End: 08-23-2023 Start: 07-20-2022 End: 10-18-2022 escitalopram 5 mg oral table t (20 sources) Serotonin Reuptake Inhibitor Start: 11-06-2024 End: 01-01-2025 Start: 11-06-2024 End: 01-01-2025 take 2 tablets by mouth once daily Escitalopram Oxalate (Lexapro) 5 mg tablet Discontinued 10 mg PO DAILY November 25, 2024 4:00pm January 01, 2025 5:05pm esomeprazole 20 mg delayed release oral capsule (20 sources) Proton Pump Inhibitor Start: 08-20-2020 End: 09-08-2020 ezetimibe 10 mg oral tablet (10 sources) Dietary Cholesterol Absorption Inhibitor Start: 11-25-2024 End: 01-01-2025 famotidine 20 mg oral tablet (20 sources) Histamine-2 Receptor Antagonist Start: 08-20-2020 End: 09-08-2020 fenofibrate 145 mg oral tablet (13 sources) Peroxisome Proliferator Receptor alpha Agonist Start: 11-06-2023 End: 01-03-2024 Flash Glucose Scanning [place] (Freestyle Jean 14 Day [place]) misc (10 sources) Start: 01-22-2024 End: 02-05-2024 Flash Glucose Scanning [place] (Freestyle Jean 14 Day [place]) misc Discontinued 0 .Route 1 0 January 22, 2024 12:00am February 05, 2024 4:59pm As directed Start: 01-22-2024 End: 02-05-2024 Flash Glucose Scanning [place] (Freestyle Jean 14 Day [place]) misc Discontinued 0 .Route 1 January 22, 2024 12:00am February 05, 2024 4:59pm As directed Start: 01-22-2024 Flash Glucose Scanning [place] (Freestyle Jean 14 Day [place]) misc Active 0 .Route 1 January 22, 2024 12:00am As directed Flash Glucose Sensor (Freest yle Jean 14 Day Sensor) kit (10 sources) Start: 01-17-2024 End: 02-05-2024 Flash Glucose Sensor (Freest yle Jean 14 Day Sensor) kit Discontinued 0 .Route 1 January 17, 2024 12:00am February 05, 2024 4:58pm As directed Start: 01-17-2024 End: 02-05-2024 Flash Glucose Sensor (Freest yle Jean 14 Day Sensor) kit Discontinued 0 .Route 1 January 17, 2024 12:00am February 05, 2024 4:58pm As directed Start: 01-17-2024 Flash Glucose Sensor (Freestyle Jean 14 Day Sensor) kit Active 0 .Route 1 January 17, 2024 12:00am As directed Flucelvax Quad (flu vac qs (6 ms up) CD) 60 mcg (15 mcg x (2 sources) Start: 08-10-2021 End: 08-10-2021 inject 15 ug by intramuscular injection once Flucelvax Quad (flu vac qs (6 ms up) CD) 60 mcg (15 mcg x Discontinued 60 MCG IM ONCE 0.5 August 10, 2021 9:32am August 10, 2021 10:27am FLUoxetine 40 mg oral capsule (20 sources) Serotonin Reuptake Inhibitor Start: 05-05-2024 End: 11-06-2024 Start: 05-05-2024 End: 11-06-2024 Fluoxetine 40 mg capsule Discontinued 80 mg PO 1400 May 05, 2024 12:00am November 06, 2024 10:47am Start: 01-03-2024 End: 05-05-2024 Start: 09-25-2023 End: 05-05-2024 take 4 capsules by mouth once daily Fluoxetine 10 mg capsule Discontinued 40 mg PO DAILY January 03, 2024 2:40pm February 21, 2024 3:46pm Start: 09-25-2023 End: 01-03-2024 take 1 capsule by mouth once daily Fluoxetine 10 mg capsule Discontinued 10 mg PO DAILY September 25, 2023 1:00am January 03, 2024 2:42pm Start: 09-25-2023 End: 05-05-2024 Fluoxetine 10 mg capsule Discontinued 80 mg PO DAILY February 21, 2024 3:45pm May 05, 2024 3:50pm Start: 02-28-2021 End: 07-15-2021 Start: 02-28-2021 End: 07-15-2021 Fluoxetine (Prozac) 40 mg ca psule Discontinued 60 mg PO DAILY May 26, 2021 11:36am July 15, 2021 10:08am gemfibrozil 600 mg oral tabl et (20 sources) Peroxisome Proliferator Receptor alpha Agonist Start: 08-22-2014 End: 08-20-2020 glimepiride 2 mg oral tablet (20 sources) Sulfonylurea Start: 08-22-2014 End: 08-20-2020 Start: 08-22-2014 End: 08-20-2020 take 4 mg by mouth twice daily Glimepiride Discontinue d 4 MG PO TWICE A DAY August 22, 2014 12:00am August 20, 2020 9:19am glipiZIDE 5 mg oral tablet (20 sources) Sulfonylurea Start: 10-19-2022 End: 08-23-2023 Start: 10-19-2022 End: 08-23-2023 take 1 tablet by mouth twice daily Glipizide 5 mg tablet Discontinued 5 mg PO TWICE A DAY 180 3 April 12, 2023 8:04am August 23, 2023 3:17pm 12 hr guaiFENesin 600 mg ext ended release oral tablet (8 sources) Start: 04-27-2025 End: 05-18-2025 hydrocortisone 10 mg/ml topi lucio cream (20 sources) Corticosteroid Start: 01-12-2021 End: 04-21-2021 hydrOXYzine pamoate 25 mg or al capsule (20 sources) Antihistamine Start: 08-22-2014 End: 08-20-2020 Start: 08-22-2014 End: 08-20-2020 Hydroxyzine Pamoate 25 MG ca psule Discontinued 50 mg PO AT BEDTIME as needed for Sleep August 22, 2014 12:00am August 20, 2020 9:19am Start: 08-22-2014 End: 08-20-2020 take 50 mg by mouth at bedtime Hydroxyzine Pamoate Dis continued 50 MG PO AT BEDTIME August 22, 2014 12:00am August 20, 2020 9:19am icosapent ethyl 1000 mg oral capsule (20 sources) Start: 04-18-2023 End: 11-07-2023 lisinopril 10 mg oral tablet (20 sources) Angiotensin Converting Enzyme Inhibitor Start: 11-03-2020 End: 12-24-2020 LORazepam 2 mg oral tablet (20 sources) Benzodiazepine Start: 08-22-2014 End: 08-20-2020 24 hr metFORMIN hydrochlorid e 500 mg extended release oral tablet (20 sources) Biguanide Start: 01-14-2024 End: 01-14-2024 Start: 01-14-2024 End: 01-14-2024 take 1000 mg by mouth twice daily Metformin Discontinued 1000 MG PO TWICE A DAY 360 January 14, 2024 1:31pm January 14, 2024 4:02pm Start: 01-14-2024 End: 08-10-2025 Start: 01-14-2024 take 1000 mg by mout h twice daily Metformin Active 1000 MG PO TWICE A DAY 360 January 14, 2024 12:00am Start: 05-20-2021 metFORMIN 1000 mg oral tablet EXTENDED RELEASE Dose : 1,000 mg = 1 tab(s), Oral, BID, # 60 tab(s), 0 Refill(s) Start Date: 05/20/21 Status: Ordered Start: 05-06-2021 End: 01-14-2024 Start: 05-06-2021 End: 01-14-2024 Metformin 500 mg tablet exte nded release 24 hr Discontinued 1000 mg PO TWICE A DAY 360 90 3 January 14, 2024 8:42am January 14, 2024 1:32pm Start: 05-06-2021 End: 01-14-2024 take 1000 mg by mouth twice daily Metformin Discontinued 1000 MG PO TWICE A DAY 360 90 January 14, 2024 8:42am January 14, 2024 1:32pm Start: 12-22-2020 End: 05-06-2021 Start: 08-23-2020 End: 01-07-2021 Start: 08-23-2020 End: 01-07-2021 take 1000 mg by mouth twice daily Metformin Discontinued 1000 MG PO TWICE A DAY 360 December 21, 2020 11:49am January 07, 2021 10:09am Methylprednisolone (10 sources) Corticosteroid Start: 09-27-2024 End: 10-16-2024 take 1 tablet by mouth once Methylprednisolone (Medrol (Mark)) 4 mg tablets,dose pack Discontinued 0 PO per package directions 21 September 27, 2024 1:00am October 16, 2024 4:44pm PO PER PKG DIR for 6 days Start: 09-27-2024 End: 10-16-2024 olmesartan medoxomil 40 mg o ral tablet (20 sources) Angiotensin 2 Receptor Luly Start: 08-12-2021 End: 02-11-2024 Start: 04-21-2021 End: 09-21-2021 Wilber-3 Fatty Acids 1,000 mg capsule (8 sources) Start: 08-20-2020 End: 10-18-2022 take 1 capsule by mouth once daily Wilber-3 Fatty Acids 1,000 mg capsule Discontinued 1000 mg PO DAILY August 20, 2020 12:00am October 18, 2022 3:15pm Gyyzd-1-Zlb-Fish Oil 910-1,300 mg capsule,delayed release(DR/EC) (8 sources) Start: 05-23-2024 End: 01-01-2025 Zxqxc-5-Xav-Fish Oil 910-1,300 mg capsule,delayed release(DR/EC) Discontinued 2 NMA PO DAILY May 23, 2024 12:00am January 01, 2025 5:06pm omeprazole 20 mg delayed release oral capsule (20 sources) Proton Pump Inhibitor Start: 08-28-2024 End: 11-13-2024 Start: 08-28-2024 End: 09-05-2024 take 1 capsule by mouth once daily Omeprazole 20 mg capsule,delayed release(DR/EC) Discontinued 20 mg PO daily August 28, 2024 12:00am September 05, 2024 2:15pm Start: 01-28-2024 End: 05-05-2024 Start: 01-28-2024 End: 05-05-2024 take 1 capsule by mouth once daily Omeprazole 20 mg capsule,delayed release(DR/EC) Discontinued 20 mg PO DAILY January 28, 2024 12:00am May 05, 2024 3:49pm ondansetron 4 mg disintegrating oral tablet (10 sources) Serotonin-3 Receptor Antagonist Start: 07-18-2024 End: 09-05-2024 oxyCODONE hydrochloride 5 mg oral tablet (10 sources) Opioid Agonist Start: 06-03-2024 End: 06-20-2024 Phosphatidylcholine (20 sources) Start: 08-22-2014 End: 08-20-2020 take 1 tablet by mouth once daily Phosphatidylcholine Discontinued 1 TABLET PO DAILY August 22, 2014 7:08pm August 20, 2020 9:19am Start: 08-22-2014 End: 08-20-2020 Phosphatidylcholine Disconti nued 1 {tbl} PO DAILY August 22, 2014 12:00am August 20, 2020 9:19am Start: 08-22-2014 End: 08-20-2020 take 1 tablet by mouth once daily Phosphatidylcholine Discontinued 1 TABLET PO DAILY August 21, 2014 11:00pm August 20, 2020 8:19am Start: 08-22-2014 End: 08-20-2020 take 1 tablet by mouth once daily Phosphatidylcholine Discontinued 1 TABLET PO DAILY August 22, 2014 12:00am August 20, 2020 9:19am prasugrel 10 mg oral tablet (20 sources) P2Y12 Platelet Inhibitor Start: 11-04-2020 End: 11-09-2022 pravastatin sodium 10 mg ora l tablet (20 sources) HMG-CoA Reductase Inhibitor Start: 06-14-2025 End: 07-15-2025 Start: 08-22-2014 End: 08-20-2020 QUEtiapine 25 mg oral tablet (20 sources) Atypical Antipsychotic Start: 01-01-2025 End: 05-18-2025 Start: 07-09-2024 End: 09-05-2024 Start: 05-05-2024 End: 05-23-2024 Start: 11-22-2022 End: 01-29-2023 Start: 07-29-2022 End: 10-18-2022 rosuvastatin calcium 5 mg oral tablet (5 sources) HMG-CoA Reductase Inhibitor Start: 06-11-2025 End: 06-14-2025 Semaglutide (20 sources) Start: 08-25-2024 End: 12-09-2024 Semaglutide (Ozempic) 0.25 mg or 0.5 mg (2 mg/3 mL) pen injector Discontinued 0.5 mg SC EVERY WEEK 3 August 25, 2024 7:53am December 09, 2024 12:17pm for 4 weeks Start: 08-25-2024 End: 12-09-2024 Start: 08-25-2024 End: 12-09-2024 Semaglutide (Ozempic) 0.25 m g or 0.5 mg (2 mg/3 mL) pen injector Discontinued 0.5 mg SC EVERY WEEK 3 August 25, 2024 7:53am December 09, 2024 12:17pm for 4 weeks Start: 08-22-2024 End: 08-25-2024 Semaglutide (Ozempic) 0.25 m g or 0.5 mg (2 mg/3 mL) pen injector Discontinued 0.5 mg SC EVERY WEEK 3 August 22, 2024 10:07am August 25, 2024 7:53am for 4 weeks Start: 08-22-2024 End: 08-25-2024 Start: 08-22-2024 End: 08-25-2024 Semaglutide (Ozempic) 0.25 m g or 0.5 mg (2 mg/3 mL) pen injector Discontinued 0.5 mg SC EVERY WEEK August 22, 2024 10:07am August 25, 2024 7:53am for 4 weeks Start: 04-10-2024 End: 05-12-2024 Semaglutide (Ozempic) 0.25 m g or 0.5 mg (2 mg/3 mL) pen injector Discontinued 0.5 mg SC EVERY WEEK 3 April 10, 2024 7:44am May 12, 2024 8:02am for 4 weeks Start: 04-10-2024 End: 05-12-2024 Start: 04-10-2024 End: 05-12-2024 Semaglutide (Ozempic) 0.25 m g or 0.5 mg (2 mg/3 mL) pen injector Discontinued 0.5 mg SC EVERY WEEK April 10, 2024 7:44am May 12, 2024 8:02am for 4 weeks Start: 03-13-2024 End: 04-10-2024 Semaglutide (Ozempic) 0.25 m g or 0.5 mg (2 mg/3 mL) pen injector Discontinued 0.25 mg SC EVERY WEEK 3 March 13, 2024 12:00am April 10, 2024 7:44am for 4 weeks Start: 03-13-2024 End: 04-10-2024 Start: 03-13-2024 End: 04-10-2024 Semaglutide (Ozempic) 0.25 m g or 0.5 mg (2 mg/3 mL) pen injector Discontinued 0.25 mg SC EVERY WEEK 3 March 13, 2024 12:00am April 10, 2024 7:44am for 4 weeks Semaglutide (Ozempic) 2 mg/d ose (8 mg/3 mL) pen injector (7 sources) Start: 06-25-2024 End: 07-18-2024 Semaglutide (Ozempic) 2 mg/d ose (8 mg/3 mL) pen injector Discontinued 2 mg SC EVERY WEEK 3 June 25, 2024 12:00am July 18, 2024 12:26am Type 2 diabetes mellitus Type 2 diabetes mellitus without complications Diabetes Start: 06-25-2024 End: 07-18-2024 Semaglutide (Ozempic) 2 mg/d ose (8 mg/3 mL) pen injector Discontinued 2 mg SC EVERY WEEK 3 June 25, 2024 12:00am July 18, 2024 12:26am Semaglutide (Weight Loss) (10 sources) Start: 06-24-2024 End: 06-25-2024 Semaglutide (Weight Loss) 1. 7 mg/0.75 mL pen injector Discontinued 1.7 mg SC EVERY WEEK 3 June 24, 2024 12:00am June 25, 2024 9:57am Start: 06-24-2024 End: 06-25-2024 Start: 06-24-2024 End: 06-25-2024 Semaglutide (Weight Loss) 1. 7 mg/0.75 mL pen injector Discontinued 1.7 mg SC EVERY WEEK 3 June 24, 2024 12:00am June 25, 2024 9:57am sertraline 50 mg oral tablet (20 sources) Serotonin Reuptake Inhibitor Start: 09-21-2021 End: 10-05-2021 ticagrelor 90 mg oral tablet (20 sources) Start: 08-20-2020 End: 11-04-2020 triamcinolone acetonide 1 mg /ml topical cream (13 sources) Corticosteroid Start: 01-03-2024 End: 02-19-2024 ubidecarenone 100 mg oral ca psule (12 sources) Start: 05-05-2024 End: 01-01-2025 Start: 08-12-2021 Co Q-10 100 mg oral capsule Dose : 400 mg = 4 cap(s), Oral, Daily, 0 Refill(s) Start Date: 08/12/21 Status: Ordered 24 hr venlafaxine 37.5 mg extended release oral capsule (20 sources) Serotonin and Norepinephrine Reuptake Inhibitor Start: 07-28-2025 End: 08-10-2025 Start: 11-06-2024 End: 11-25-2024 Start: 12-22-2023 End: 02-19-2024 Start: 02-16-2022 End: 01-03-2024 Start: 11-28-2021 End: 12-22-2021 Start: 08-22-2014 End: 04-07-2021 Vitamin B Complex tablet (8 sources) Start: 05-23-2024 End: 01-01-2025 Vitamin B Complex tablet Dis continued 1 {tbl} PO DAILY May 23, 2024 12:00am January 01, 2025 5:06pm Problems Active Problems Problem Classification Problem Date Documented Da te Episodic/Chronic Acute and unspecified renal failure (2 sources) Chronic renal failure 08-11-2021 Chronic Acute bronchitis (14 sources) Acute bronchitis; Translations: [Acute bronchitis, unspecified] 04-27-2025 Episodic Administrative/social admission (12 sources) Fear of urinary disease; Translations: [Person with feared health complaint in whom no diagnosis is made] 05-18-2025 Episodic Alcohol-related disorders (20 sources) Alcohol dependence; Translations: [Chronic alcoholism in remission] 07-23-2020 Chronic Comment on above: QUIT 2014 Anxiety disorders (20 sources) Anxiety; Translations: [Obsessive-compulsive disorder] Onset: 08-02-2020 Chronic Biliary tract disease (20 sources) Biliary calculus; Translations: [Calculus of gallbladder without cholecystitis without obstruction] 06-20-2024 Episodic Calculus of urinary tract (12 sources) Kidney stone; Translations: [Calculus of kidney] Onset: 5 02-19-2024 Episodic Conditions associated with dizziness or vertigo (20 sources) Orthostatic hypotension; Translations: [Dizziness and giddiness] 09-15-2020 Episodic Coronary atherosclerosis and other heart disease (20 sources) Coronary arteriosclerosis; Translations: [History of non-ST segment elevation myocardial infarction] Onset: 0 08-02-2020 Chronic Deficiency and other anemia (20 sources) Anemia; Translations: [Anemia, unspecified] 07-23-2020 Episodic Comment on above: CHILD Deficiency and other anemia (2 sources) Anemia, unspecified; Translations: [Anemia, unspecified] Episodic Diabetes mellitus without complication (20 sources) Type 2 diabetes mellitus; Translations: [Type 2 diabetes mellitus without complications] Onset: 5 02-17-2020 Chronic Diabetes mellitus without complication (15 sources) Diabetes mellitus without complication; Translations: [Primary hypertension] Disorders of lipid metabolism (20 sources) Hypertriglyceridemia; Translations: [Hyperlipidemia] Onset: 5 12-26-2019 Chronic E Codes: Fall (19 sources) Fall; Translations: [Unspecified fall, initial encounter] 08-07-2022 Episodic Esophageal disorders (20 sources) Gastroesophageal reflux disease; Translations: [Gastro-esophageal reflux disease without esophagitis] Chronic Essential hypertension (20 sources) Hypertensive disorder; Translations: [Essential hypertension] Onset: 5 12-26-2019 Chronic Fluid and electrolyte disorders (10 sources) Mild dehydration; Translations: [Dehydration] 07-26-2024 Episodic Genitourinary symptoms and ill-defined conditions (20 sources) Delay when starting to pass urine; Translations: [Hesitancy of micturition] 10-04-2021 Episodic Gout and other crystal arthropathies (20 sources) Gout; Translations: [Gout, unspecified] 10-04-2021 Chronic Headache; including migraine (16 sources) Frontal headache ; Translations: [Frontal headache] 01-03-2024 Episodic Malaise and fatigue (20 sources) Fatigue; Translations: [Other fatigue] Episodic Mycoses (15 sources) Dermal mycosis; 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, unspecified] 08-31-2023 Episodic Nonspecific chest pain (20 sources) Chest pain; Translations: [Chest pain, unspecified] Onset: 5 01-02-2022 Episodic Nutritional deficiencies (1 source) Vitamin D deficiency, unspecified; Translations: [Vitamin D deficiency, unspecified] Onset: 5 Chronic Open wounds of extremities (2 sources) 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 Other connective tissue disease (15 sources) Cramp in lower limb; Translations: [Cramp and spasm] 04-02-2023 Episodic Other connective tissue disease (1 source) Myalgia/myositis - lower leg; Translations: [Myalgia, other site] 03-30-2023 Episodic Other connective tissue disease (15 sources) Myalgia, other site; Translations: [Myalgia, lower leg] 03-30-2023 Episodic Other connective tissue disease (14 sources) Tendinitis of right elbow; Translations: [Other enthesopathies, not elsewhere classified] 09-26-2024 Episodic Other connective tissue disease (2 sources) Muscle pain; Translations: [Myalgia, unspecified site] 08-12-2025 Episodic Other connective tissue disease (1 source) Myalgia, unspecified site; Translations: [Myalgia, unspecified site] Onset: 5 Episodic Other ear and sense organ disorders (16 sources) Impacted cerumen; Translations: [Impacted cerumen, bilateral] 03-07-2023 Episodic Other ear and sense organ disorders (2 sources) Impacted cerumen, bilateral; Translations: [Impacted cerumen] 03-07-2023 Episodic Other ear and sense organ disorders (4 sources) Impacted cerumen of bilateral ears; Translations: [Impacted cerumen, bilateral] 03-07-2023 Episodic Other endocrine disorders (20 sources) Hypoglycemia; Translations: [Hypoglycemia, unspecified] 10-04-2021 Chronic Other endocrine disorders (20 sources) Male hypogonadism; Translations: [Testicular hypofunction] 05-15-2022 Chronic Other endocrine disorders (13 sources) Testicular hypofunction; Translations: [Other testicular hypofunction] Onset: 5 Chronic Other gastrointestinal disorders (2 sources) Abdominal distension (gaseous); Translations: [Flatulence, eructation, and gas pain] Episodic Other gastrointestinal disorders (2 sources) Other fecal abnormalities; Translations: [Nonspecific abnormal findings in stool contents] Episodic Other gastrointestinal disorders (2 sources) Constipation, unspecified; Translations: [Constipation, unspecified] Episodic Other injuries and conditions due to external causes (20 sources) Fracture of bone; Translations: [Other injury of unspecified body region, initial encounter] 10-04-2021 Episodic Other liver diseases (20 sources) Disease of liver; Translations: [Liver disease, unspecified] 10-04-2021 Chronic Other liver diseases (11 sources) Elevated liver enzymes level; Translations: [Abnormal levels of other serum enzymes] 02-19-2024 Episodic Other lower respiratory disease (2 sources) Acute pulmonary edema 12-09-2020 Episodic Other lower respiratory disease (20 sources) Other forms of dyspnea; Translations: [Chronic dyspnea] 10-04-2021 Episodic Other lower respiratory disease (20 sources) Cough; Translations: [Cough] 08-10-2021 Episodic Other lower respiratory disease (20 sources) Dyspnea; Translations: [Dyspnea, unspecified] 10-04-2021 Episodic Other lower respiratory disease (2 sources) Dyspnea, unspecified; Translations: [Other respiratory abnormalities] Episodic Other lower respiratory disease (4 sources) Dry cough; Translations: [Persistent dry cough] 07-28-2025 Episodic Other lower respiratory disease (1 source) Chronic cough; Translations: [Chronic cough] Onset: 5 Episodic Other male genital disorders (20 sources) Male erectile dysfunction, unspecified; Translations: [Erectile dysfunction] Onset: 5 01-05-2025 Chronic Other male genital disorders (5 sources) Impotence Chronic Other non-traumatic joint disorders (6 sources) Shoulder pain; Translations: [Pain in right shoulder] 05-11-2022 Episodic Other non-traumatic joint disorders (14 sources) Pain in right shoulder; Translations: [Right shoulder pain] 05-11-2022 Episodic Other non-traumatic joint disorders (10 sources) Hip joint finding; Translations: [Pain in right hip] 06-17-2025 Episodic Other nutritional; endocrine; and metabolic disorders (2 sources) Body mass index 30+ - obesity 02-17-2020 Chronic Other nutritional; endocrine; and metabolic disorders (20 sources) Obesity; Translations: [Obesity, unspecified] 02-17-2020 Chronic Other nutritional; endocrine; and metabolic disorders (9 sources) Obesity, unspecified; Translations: [Obesity, unspecified] Onset: Chronic Other skin disorders (13 sources) Vesicular hand eczema; Translations: [Dyshidrosis [pompholyx]] 11-07-2023 Episodic Other skin disorders (6 sources) Dyshidrosis [pompholyx]; Translations: [Dyshidrosis] 11-07-2023 Episodic Pancreatic disorders (not diabetes) (20 sources) Pancreatitis; Translations: [Acute pancreatitis without necrosis or infection, unspecified] 10-04-2021 Episodic Pulmonary heart disease (20 sources) Pulmonary arterial hypertension; Translations: [Secondary pulmonary arterial hypertension] 10-04-2021 Chronic Residual codes; unclassified (13 sources) Periodic limb movement disorder; Translations: [Periodic limb movement disorder] 12-30-2021 Chronic Residual codes; unclassified (10 sources) Periodic leg movements of sleep ; Translations: [Periodic limb movement disorder] 12-30-2021 Chronic Residual codes; unclassified (10 sources) Insomnia; Translations: [Insomnia, unspecified] 09-07-2024 Episodic Residual codes; unclassified (1 source) Family history of malignant neoplasm of prostate; Translations: [Family history of prostate cancer] Onset: 5 Episodic Schizophrenia and other psychotic disorders (20 sources) Schizoaffective disorder; Translations: [Schizophrenic disorders ] Onset: 5 09-12-2019 Chronic Superficial injury; contusion (19 sources) Contusion of foot; Translations: [Contusion of right foot, initial encounter] 08-07-2022 Episodic Syncope (2 sources) Near syncope 10-08-2020 Episodic Thyroid disorders (20 sources) Multinodular goiter; Translations: [Nontoxic multinodular goiter] Onset: 5 08-25-2021 Chronic Unclassified (6 sources) N52.9 - Male erectile dysfunction, unspecified,R79.89 - Other specified abnormal findings of blood chemistry,I10 - Essential (primary) hypertension,E11.9 - Type 2 diabetes mellitus without complications,F25.1 - Schizoaffective disorder, depressive type Past or Other Problems Problem Classification Problem Date Documented Da te Episodic/Chronic Cardiac dysrhythmias (11 sources) Palpitations; Translations: [Palpitations] Onset: 11-17-2024 09-05-2024 Episodic Coronary atherosclerosis and other heart disease (10 sources) Presence of coronary angioplasty implant and graft; Translations: [Percutaneous transluminal coronary angioplasty status] Onset: 07-26-2020 Episodic Diabetes mellitus without complication (1 source) Hyperglycemia, unspecified; Translations: [Hyperglycemia, unspecified] Onset: 04-27-2025 Episodic Nausea and vomiting (20 sources) Nausea; Translations: [Nausea] Onset: 04-06-2025 10-04-2021 Episodic Other connective tissue disease (1 source) Other enthesopathies, not elsewhere classified; Translations: [Other enthesopathies, not elsewhere classified] Onset: 11-19-2024 Episodic Other screening for suspected conditions (not mental disorders or infectious disease) (20 sources) Thallium stress test abnormal; Translations: [Electrocardiogram abnormal] Onset: 11-29-2024 07-22-2020 Episodic Residual codes; unclassified (20 sources) History of cardiac catheterization; Translations: [Other specified postprocedural states] Onset: 11-02-2021 11-02-2021 Episodic Comment on above: Previously placed st ent in the left anterior descending artery is noted to be patent. There is moderate disease noted in the right coronary artery and the circumflex artery but no high-grade stenosis noted. Preserved ejection fraction. Medical therapy recommended. Urinary tract infections (8 sources) Urinary tract infectious disease; Translations: [Urinary tract infection, site not specified] Onset: 05-22-2025 05-18-2025 Episodic Results Test Name Value Interpretation Reference Range Facility MR/BMS.LORENBon 08-24-2025 MR/BMS.IMB [facility] [address] [facility] [place] [address] OFFICE VISIT Date of Service: 08/24/25 MR#: [id number] Acct: [id number] Name: ALIX LEE Rep #: [id number] : 1960 Provider: Dr. 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 Accompanied by: Self Is patient in pain?: No Allergies Penicillins (PCN) Allergy (Verified 08/24/25 13:34) Other Jetvpqv-VJC-SeR Reductase Inhibitor Adverse Reaction (Intermediate, Verified 08/24/25 13:34) myalgias lisinopril Adverse Reaction (Verified 08/24/25 13:34) cough spironolactone Adverse Reaction (Verified 08/24/25 13:34) elevated blood sugar Medications ???Medication ???Instructions ???Recorded ???Confirmed ???Type needle (disp) 18 G 18 gauge x 1 #100 ea 05/22/22 08/24/25 Rx (BD Regular Bevel [place]) flash glucose scanning reader #1 ea 02/05/24 08/24/25 Rx (DermLink Jean 2 [place]) cholecalciferol (vitamin D3) 125 5,000 unit PO DAILY 05/05/2408/24 History mcg (5,000 unit) tablet (Vitamin D3) ferrous sulfate 325 mg (65 mg 325 mg PO DAILY 05/05/24 08/24/25 History iron) tablet (FeroSul) syringe with needle, safety 3 mL #50 ea 05/13/24 08/24/25 Rx 25 gauge x 1 aspirin 81 mg tablet,delayed 81 mg PO 1400 05/23/24 08/24/25 Hi story release magnesium glycinate 100 mg (as 100 mg PO QHS 09/05/24 08/24/25 Hi story glycinate) tablet (Mag Glycinate) melatonin 10 mg capsule 10 mg PO QHS PRN sleep 09/05/24 History carvedilol 25 mg tablet 25 mg PO BID #180 tabs 10/23/24 Rx omeprazole 20 mg capsule,delayed 20 mg PO BID #180 caps 11/13/24 Rx release multivitamin 1 tab PO QDAY 01/01/25 08/24/25 Hi story amlodipine 5 mg tablet 5 mg PO DAILY #90 TABLETS 01/23/25 08/24/25 Rx flash glucose sensor (FreeStyle #1 ea 03/13/25 08/24/25 Rx Jean 2 Sensor kit) isosorbide mononitrate 60 mg 60 mg PO BID #180 tabs 03/13/25 Rx tablet,extended release 24 hr nitroglycerin 0.4 mg sublingual 0.4 mg sublingual Q5-15M PRN chest 03/13/25 08/24/25 Rx tablet (Nitrostat) pain #25 tabs evolocumab 140 mg/mL subcutaneous 140 mg subcut Q2W #6 mL 07/28/25 08/24/25 Rx pen injector (Repatha SureClick) testosterone cypionate 200 mg/mL 150 mg (0.75 mL) IM Q2W #5 mL 07/2908/24/25 Rx intramuscular oil mirtazapine 15 mg tablet 15 mg PO QHS 08/24/25 08/24/25 His tory semaglutide 2 mg/dose (8 mg/3 mL) 2 mg subcut QWEEK Diabetes 08/24/25 History subcutaneous pen injector (Ozempic) trifluoperazine 1 mg tablet 1 mg PO DAILY Nerves 08/24/2507/30 History PFSH Medical History Muscle pain Persistent dry cough Discomfort of right hip Concern about urinary tract disease without diagnosis UTI (urinary tract infection) Acute bronchitis Erectile dysfunction Alcohol use Bruising High cholesterol Gastric reflux History of Holter monitoring History of echocardiogram Nausea vomiting Colon cancer screening Wears hearing aid Wears glasses Schizophrenia Anxiety Diabetes Low iron Fatty liver Restless legs Back pain Tic disorder History of diverticulitis Former smoker History of stress test Cardiology follow-up encounter Hypertension Cholelithiasis History of sarcoidosis Depression Pancreatitis 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 History of non-ST elevation myocardial infarction (NSTEMI) (07/26/20) Essential hypertension Type 2 diabetes mellitus Nausea Fatigue Urinary hesitancy Liver disease Hypoglycemia Hyperlipemia Gout GERD (gastroesophageal reflux disease) Anxiety and depression Bone fracture Anemia History of alcohol abuse Schizoaffective disorder Surgical History History of cardiac catheterization History of cholecystectomy Hx of colonoscopy History of left heart catheterization (11/02/21) History of coronary artery stent placement (07/26/20) History of cataract surgery History of placement of ear tubes History of tonsillectomy History of amputation of finger Family History Other CVA (cerebral va (more content not included)... Normal [facility] Absolute lymphocyte countOrd ered By: Pietro Turner on 08-14-2025 Lymphocytes Auto (Unsp spec) [#/Vol] 1.02 10*3/uL 0.83-4.51 [facility] Anion gap in Serum or Plasma Ordered By: Pietro Turner on 08-14-2025 Anion gap [Moles/Vol] 15 mmol/L 03-12 [facility] Automated lymphocyte count a s percentage of total leukocytesOrdered By: Pietro Turner on 08-14-2025 Lymphocytes/100 WBC Auto (Unsp spec) 12.3 % Low [facility] BUN/creatinine ratioOrdered By: Pietro Turner on 08-14-2025 Urea nitrogen/Creatinine [Mass ratio] 18.4 mg/mg 08-17 [facility] Basophil percentageOrdered B y: Pietro Turner on 08-14-2025 Basophils/100 WBC (Bld) 0.6 % 0 [facility] Bilirubin, totalOrdered By: Pietro Turner on 08-14-2025 Bilirubin [Mass/Vol] 0.78 mg/dL 0.00-1.30 [facility] CBC W/Diff, Automatedon 07-29 Absolute Lymph 1.02 X10 3/uL Normal 0.83-4.51 [facility] Comment on above: Performed By: #### L 501.9985, L500.4050, L100.0100, L500.4100 #### [facility] [place], [address] Absolute Neut 6.3 X10 3/uL Normal 2.0-7.7 [facility] Comment on above: Performed By: #### L 501.9985, L500.4050, L100.0100, L500.4100 #### [facility] [address] [place], [address] Basophils/100 WBC (Bld) 0.6 % Normal 0-1 [facility] Comment on above: Performed By: #### L 501.9985, L500.4050, L100.0100, L500.4100 #### [facility] [address] [place], [address] Eosinophils/100 WBC (Bld) 2.9 % Normal 0-5 [facility] Comment on above: Performed By: #### L 501.9985, L500.4050, L100.0100, L500.4100 #### [facility] [address] [place], [address] Erythrocyte distribution width (RBC) [Ratio] 13.2 % Normal 11.6-14.6 [facility] Comment on above: Performed By: #### L 501.9985, L500.4050, L100.0100, L500.4100 #### [facility] [address] [place], [address] Hematocrit (Bld) [Volume fraction] 42.1 % Normal 40-54 [facility] Comment on above: Performed By: #### L 501.9985, L500.4050, L100.0100, L500.4100 #### [facility] [address] [place], [address] Hemoglobin (Bld) [Mass/Vol] 14.5 g/dL Normal 13.0-16.5 [facility] Comment on above: Performed By: #### L 501.9985, L500.4050, L100.0100, L500.4100 #### [facility] [address] [place], [address] IG% 0.400 Normal 0.0-0.9 [facility] Comment on above: Result Comment: IG% - Immature Granulocytes (promyelocytes, myelocytes and metamyelocytes) > 1% indicates that a LEFT SHIFT is Present. Performed By: #### L 501.9985, L500.4050, L100.0100, L500.4100 #### [facility] [address] [place], [address] Lymphocytes/100 WBC (Bld) 12.3 % Low 19-41 [facility] Comment on above: Performed By: #### L 501.9985, L500.4050, L100.0100, L500.4100 #### [facility] [address] [place], [address] MCH (RBC) [Entitic mass] 30.0 pg Normal 27.0-32.0 [facility] Comment on above: Performed By: #### L 501.9985, L500.4050, L100.0100, L500.4100 #### [facility] [address] [place], [address] MCHC (RBC) [Mass/Vol] 34.4 g/dL Normal 32-36 [facility] Comment on above: Performed By: #### L 501.9985, L500.4050, L100.0100, L500.4100 #### [facility] [address] [place], [address] MCV (RBC) [Entitic vol] 87.2 fL Normal 80-94 [facility] Comment on above: Performed By: #### L 501.9985, L500.4050, L100.0100, L500.4100 #### [facility] [address] [place], [address] Monocytes/100 WBC (Bld) 7.5 % Normal 0-10 [facility] Comment on above: Performed By: #### L 501.9985, L500.4050, L100.0100, L500.4100 #### [facility] [address] [place], [address] Neutrophils/100 WBC (Bld) 76.3 % High 47-70 [facility] Comment on above: Performed By: #### L 501.9985, L500.4050, L100.0100, L500.4100 #### [facility] [address] [place], [address] Nucleated RBC (Bld) [#/Vol] 0 10*3/uL Normal 0-5 [facility] Comment on above: Performed By: #### L 501.9985, L500.4050, L100.0100, L500.4100 #### [facility] [address] [place], [address] Platelet mean volume (Bld) [Entitic vol] 9.4 fL Normal 6.2-12.0 [facility] Comment on above: Performed By: #### L 501.9985, L500.4050, L100.0100, L500.4100 #### [facility] [address] [place], [address] Platelets (Bld) [#/Vol] 288 10*3/uL Normal 150-450 [facility] Comment on above: Performed By: #### L 501.9985, L500.4050, L100.0100, L500.4100 #### [facility] [address] [place], [address] RBC (Bld) [#/Vol] 4.83 10*6/uL Normal 4.6-6.2 [facility] Comment on above: Performed By: #### L 501.9985, L500.4050, L100.0100, L500.4100 #### [facility] [address] [place], [address] RDW SD 40.7 fl Normal 35.1-43.9 [facility] Comment on above: Performed By: #### L 501.9985, L500.4050, L100.0100, L500.4100 #### [facility] [address] [place], [address] WBC (Bld) [#/Vol] 8.3 10*3/uL Normal 4.4-11.0 [facility] Comment on above: Performed By: #### L 501.9985, L500.4050, L100.0100, L500.4100 #### [facility] [address] [place], [address] CRPon 08-14-2025 C-REACTIVE PROT < 3.00 Normal 0.0-3.0 [facility] Comment on above: Performed By: #### L 101.9900, L501.6710 ####[facility] [address] [place], [address] Calculated very low density lipoprotein (VLDL) cholesterol measurementOrdered By: Pietro Turner on 08-14-2025 Calculated very low density lipoprotein (VLDL) cholesterol measurement 51 mg/dL High 5-40 [facility] Carbon dioxide, total [Moles /volume] in Central venous bloodOrdered By: Pietro Turner on 08-14-2025 CO2 [Moles/Vol] 21.5 mmol/L 21.0-32.0 [facility] Chloride assayOrdered By: Rohini Turner on 08-14-2025 Chloride [Moles/Vol] 100 mmol/L 98-108 [facility] Comprehensive Metabolic Prof ilon 08-14-2025 Albumin [Mass/Vol] 4.6 g/dL Normal 3.4-4.8 [facility] Comment on above: Performed By: #### L 501.9985, L500.4050, L100.0100, L500.4100 ####[facility] [address] [place], [address] Albumin/Globulin [Mass ratio] 1.7 {ratio} Normal 0.9-2.4 [facility] Comment on above: Performed By: #### L 501.9985, L500.4050, L100.0100, L500.4100 ####[facility] [address] [place], [address] ALK PHOS 115 U/L Normal 40-129 [facility] Comment on above: Performed By: #### L 501.9985, L500.4050, L100.0100, L500.4100 ####[facility] [address] [place], [address] ALT [Catalytic activity/Vol] 29 U/L Normal <=46 [facility] Comment on above: Performed By: #### L 501.9985, L500.4050, L100.0100, L500.4100 ####[facility] [address] [place], [address] AST [Catalytic activity/Vol] 26 U/L Normal <=37 [facility] Comment on above: Performed By: #### L 501.9985, L500.4050, L100.0100, L500.4100 ####[facility] [address] [place], [address] Bilirubin [Mass/Vol] 0.78 mg/dL Normal 0.00-1.30 [facility] Comment on above: Performed By: #### L 501.9985, L500.4050, L100.0100, L500.4100 ####[facility] [address] [place], [address] BUN/CRE 18.4 RATIO Normal 10-20 [facility] Comment on above: Performed By: #### L 501.9985, L500.4050, L100.0100, L500.4100 ####[facility] [address] [place], [address] Calcium [Mass/Vol] 9.8 mg/dL Normal 7.6-11.0 [facility] Comment on above: Performed By: #### L 501.9985, L500.4050, L100.0100, L500.4100 ####[facility] [address] [place], [address] Chloride [Moles/Vol] 100 mmol/L Normal 98-108 [facility] Comment on above: Performed By: #### L 501.9985, L500.4050, L100.0100, L500.4100 ####[facility] [address] [place], [address] CO2 [Moles/Vol] 21.5 mmol/L Normal 21.0-32.0 [facility] Comment on above: Performed By: #### L 501.9985, L500.4050, L100.0100, L500.4100 ####[facility] [address] [place], [address] Creatinine [Mass/Vol] 0.93 mg/dL Normal 0.70-1.20 [facility] Comment on above: Performed By: #### L 501.9985, L500.4050, L100.0100, L500.4100 ####[facility] [address] [place], [address] GAP 15 Normal 5-15 [facility] Comment on above: Performed By: #### L 501.9985, L500.4050, L100.0100, L500.4100 ####[facility] [address] [place], [address] GFR/1.73 sq M.predicted among non-blacks MDRD (S/P/Bld) [Vol rate/Area] 92 mL/min/{1.73_m2} Normal >60 [facility] Comment on above: Result Comment: mL/m in/1.73m2 CKD-EPI Creatinine Equation (2020) Performed By: #### L 501.9985, L500.4050, L100.0100, L500.4100 ####[facility] [address] [place], [address] Globulin (S) [Mass/Vol] 2.7 g/dL Normal 2.2-4.2 [facility] Comment on above: Performed By: #### L 501.9985, L500.4050, L100.0100, L500.4100 ####[facility] [address] [place], [address] Glucose [Mass/Vol] 134 mg/dL High 70-99 [facility] Comment on above: Performed By: #### L 501.9985, L500.4050, L100.0100, L500.4100 ####[facility] [address] [place], [address] Potassium [Moles/Vol] 4.2 mmol/L Normal 3.3-5.1 [facility] Comment on above: Performed By: #### L 501.9985, L500.4050, L100.0100, L500.4100 ####[facility] [address] [place], [address] Sodium [Moles/Vol] 137 mmol/L Normal 133-145 [facility] Comment on above: Performed By: #### L 501.9985, L500.4050, L100.0100, L500.4100 ####[facility] [address] [place], [address] T PROT 7.3 g/dL Normal 5.9-8.4 [facility] Comment on above: Performed By: #### L 501.9985, L500.4050, L100.0100, L500.4100 ####[facility] [address] [place], [address] Urea nitrogen [Mass/Vol] 17 mg/dL Normal 4-19 [facility] Comment on above: Performed By: #### L 501.9985, L500.4050, L100.0100, L500.4100 ####[facility] [address] [place], [place], [id number] Eosinophil percentageOrdered By: Pietro Turner on 08-14-2025 Eosinophils/100 WBC (Bld) 2.9 % 0-5 [facility] Erythrocyte Sed Rateon 08-14 SED RATE 5 mm/hr Normal 0-20 [facility] Comment on above: Performed By: #### L 101.9900, L501.6710 ####[facility] [address] [place], [place], [id number] Erythrocyte distribution wid th ratioOrdered By: Pietro Turner on 08-14-2025 Erythrocyte distribution width (RBC) [Ratio] 13.2 % 11.6-14.6 [facility] Erythrocyte distribution wid th standard deviationOrdered By: Pietro Turner on 08-14-2025 Erythrocyte distribution width (RBC) [Ratio] 40.7 fl 35.1-43.9 [facility] Erythrocyte sedimentation ra teOrdered By: Pietro Turner on 08-14-2025 ESR (Bld) [Velocity] 5 mm/h 0-20 [facility] Glomerular filtration rate ( GFR) estimation/1.73 sq m using serum, plasma, or whole bOrdered By: Pietro Turner on 08-14-2025 GFR/1.73 sq M.predicted among non-blacks MDRD (S/P/Bld) [Vol rate/Area] 92 mL/min/{1.73_m2} >60 [facility] Hematocrit Auto (Bld) [Volum e fraction]Ordered By: Pietro Turner on 08-14-2025 Hematocrit (Bld) [Volume fraction] 42.1 % 40-54 [facility] Hemoglobin A1con 08-14-2025 HbA1c (Bld) [Mass fraction] 6.0 % High <=5.6 [facility] Comment on above: Result Comment: Norm al < 5.7 % Prediabetic 5.7 - 6.4 % Diabetic >or= 6.5 % Please note range changes. Performed By: #### L 501.9985, L500.4050, L100.0100, L500.4100 ####[facility] [address] [place], [address] Hemoglobin A1c percentageOrd ered By: Pietro Turner on 08-14-2025 HbA1c (Bld) [Mass fraction] 6.0 % High <5.7 [facility] Hemoglobin measurementOrdere d By: Pietrochelsie Turner on 08-14-2025 Hemoglobin (Bld) [Mass/Vol] 14.5 g/dL 13.0-16.5 [facility] Immature granulocytes/100 WB C Auto (Bld)Ordered By: Pietrochelsie Turner on 08-14-2025 Immature granulocytes/100 WBC (Bld) 0.400 % 0.0-0.9 [facility] LDL calc ser/plasOrdered By: Pietro Turner on 08-14-2025 Cholesterol in LDL [Mass/Vol] -3 mg/dL [facility] Lipid Profileon 08-14-2025 CHOL:HDL 1.96 Normal [facility] Comment on above: Performed By: #### L 501.9985, L500.4050, L100.0100, L500.4100 ####[facility] [address] [place], [address] Cholesterol [Mass/Vol] 69 mg/dL Normal <=200 [facility] Comment on above: Result Comment: Chol esterol level, Desirable <200 mg/dL Borderline high cholesterol 200-239 mg/dL High cholesterol >=240 mg/dL Recommendations of the NCEP Adult Treatment Panel for the following risk-cutoff thresholds for the [place] population. Performed By: #### L 501.9985, L500.4050, L100.0100, L500.4100 ####[facility] [address] [place], [place], [id number] Cholesterol in HDL [Mass/Vol] 35 mg/dL Low [facility] Comment on above: Result Comment: Anna onal Cholesterol Education Program (NCEP) guidelines: <40 mg/dL: Low HDL-cholesterol (major risk factor for CHD) >= 60 mg/dL: High HDL-cholesterol (negative risk factor for CHD) HDL-cholesterol is affected by a number of factors, e.g. smoking, exercise, hormones, sex and age. Performed By: #### L 501.9985, L500.4050, L100.0100, L500.4100 ####[facility] [address] [place], [address] Cholesterol in LDL [Mass/Vol] -3 mg/dL Normal [facility] Comment on above: Result Comment: Bord tjrwqf=286-955 mg/dL Higher Njyi=100 mg/dL or greater Xiong Equation 2020 for LDL-C Performed By: #### L 501.9985, L500.4050, L100.0100, L500.4100 ####[facility] [address] [place], [address] Cholesterol in VLDL [Mass/Vol] 51 mg/dL High 5-40 [facility] Comment on above: Performed By: #### L 501.9985, L500.4050, L100.0100, L500.4100 ####[facility] [address] [place], [address] Triglyceride [Mass/Vol] 256 mg/dL High [facility] Comment on above: Result Comment: The drugs N-Acetylcysteine and Metamizole may falsely depress this assay. Normal range: <150 mg/dL Borderline High: 150-199 mg/dL High: 200-499 mg/dL Very High: >500 mg/dL Performed By: #### L 501.9985, L500.4050, L100.0100, L500.4100 ####[facility] [address] [place], [address] MCV (mean corpuscular volume ) determinationOrdered By: Pietro Turner on 08-14-2025 MCV (RBC) [Entitic vol] 87.2 fL 80-94 [facility] Mean corpuscular hemoglobin (MCH) determinationOrdered By: Pietro Turner on 08-14-2025 MCH (RBC) [Entitic mass] 30.0 pg 27.0-32.0 [facility] Monocyte percentageOrdered B y: Pietro Turner on 08-14-2025 Monocytes/100 WBC (Bld) 7.5 % 0-10 [facility] Neutrophil percentageOrdered By: Pietro Turner on 08-14-2025 Neutrophils/100 WBC (Bld) 76.3 % High 47-70 [facility] No Panel InformationOrdered By: Pietro Turner on 08-14-2025 26 U/L <38 [facility] Platelet countOrdered By: Rohini Turner on 08-14-2025 Platelets (Bld) [#/Vol] 288 10*3/uL 150-450 [facility] Potassium measurement (mass/ volume)Ordered By: Pietro Turner on 08-14-2025 Potassium (Unsp spec) [Mass/Vol] 4.2 mmol/L 3.3-5.1 [facility] RBC Auto (Bld) [#/Vol]Ordere d By: Pietro Turner on 08-14-2025 RBC (Bld) [#/Vol] 4.83 10*6/uL 4.6-6.2 [facility] Serum creatinine measurement (mass/volume)Ordered By: Pietro Turner on 08-14-2025 Creatinine [Mass/Vol] 0.93 mg/dL 0.70-1.20 [facility] Serum globulin measurementOr dered By: Pietro Turner on 08-14-2025 Globulin (S) [Mass/Vol] 2.7 g/dL 2.2-4.2 [facility] Serum glucose measurement (m ass/volume)Ordered By: Pietro Turner on 08-14-2025 Glucose [Mass/Vol] 134 mg/dL High 70-99 [facility] Serum or plasma C reactive p rotein measurement (mass/volume)Ordered By: Pietro Turner on 08-14-2025 CRP [Mass/Vol] mg/L 0.0-3.0 [facility] Serum or plasma alanine carrillo otransferase (ALT) measurementOrdered By: Pietro Turner on 08-14-2025 ALT [Catalytic activity/Vol] 29 U/L <47 [facility] Serum or plasma albumin michelle urement (mass/volume)Ordered By: Pietro Turner on 08-14-2025 Albumin [Mass/Vol] 4.6 g/dL 3.4-4.8 [facility] Serum or plasma albumin/glob ulin mass ratioOrdered By: Pietro Turner on 08-14-2025 Albumin/Globulin [Mass ratio] 1.7 {ratio} 0.9-2.4 [facility] Serum or plasma alkaline andres sphatase measurementOrdered By: Pietro Turner on 08-14-2025 ALP [Catalytic activity/Vol] 115 U/L 40-129 [facility] Serum or plasma calcium michelle urement (mass/volume)Ordered By: Pietro Turner on 08-14-2025 Calcium [Mass/Vol] 9.8 mg/dL 7.6-11.0 [facility] Serum or plasma cholesterol in HDL measurement (mass/volume)Ordered By: Pietro Turner on 08-14-2025 Cholesterol in HDL [Mass/Vol] 35 mg/dL Low >40 [facility] Serum or plasma cholesterol measurement (mass/volume)Ordered By: Pietro Turner on 08-14-2025 Cholesterol [Mass/Vol] 69 mg/dL <201 [facility] Serum or plasma urea nitroge n measurement (mass/volume)Ordered By: Pietro Turner on 08-14-2025 Urea nitrogen [Mass/Vol] 17 mg/dL 4-19 [facility] Sodium levelOrdered By: Carmen Turner on 08-14-2025 Sodium [Moles/Vol] 137 mmol/L 133-145 [facility] Total proteinOrdered By: Britni Turner on 08-14-2025 Protein [Mass/Vol] 7.3 g/dL 5.9-8.4 [facility] White blood cell (WBC) count Ordered By: Pietro Turner on 08-14-2025 WBC (Bld) [#/Vol] 8.3 10*3/uL 4.4-11.0 [facility] Cardiology Visit Reporton Cardiology Visit Report [facility] [address] [place] [address] OFFICE VISIT Date of Service: 08/10/25 MR#: [id number] Acct: [id number] Name: ALIX LEE Rep #: [id number] : 1960 Provider: MICHELLE koch Age/Sex: 65/M Location: [facility] Status: Signed HPI HPI History of Present Illness Details: This is a pleasant 65-year-old man who presents to the office today for a cardiovascular followup visit. He had presented in June 2020 with chest discomfort and radiation to his face. He was admitted for non-ST elevation myocardial infarction, underwent a cardiac catheterization which demonstrated single-vessel disease to the proximal left anterior descending artery. He did undergo angioplasty and stenting of this vessel with a 3.5 x 28 mm Synergy stent. He did fairly well after that and underwent a stress test in August 2020 where he exercised to a moderate metabolic workload of 6.4 metabolic equivalents with hypertensive response to exercise. He continued on the current medication. At that time he was noted to be on Brilinta which subsequently caused dyspnea and this was discontinued and he was switched to Effient. He did well in the interim and underwent a stress test in December 2020 which demonstrated no evidence of ischemia. ProBNP also performed at that time was noted to be normal. His echocardiogram had demonstrated preserved ejection fraction of 55 to 60%. His most recent cardiac catheterization from October of 2021 demonstrated previously placed stent in the left anterior descending artery is noted to be patent, and there is moderate disease noted in the right coronary artery and the circumflex artery but no high-grade stenosis noted. He underwent further evaluation with a polysomnogram that was positive for mild obstructive sleep apnea. He does state that treatment of such has improved his energy level. He has a history of hypertension, hyperlipidemia, obesity, and diabetes mellitus. He acknowledges recent episode of chest pain after eating a large meal. Patient called the squad and had an EKG done. He did not present to the emergency department for further evaluation. Patient states that such pain is thought to be due to indigestion/eating associated with his GLP-1 medication. He denies palpitation or bilateral lower extremity edema. He acknowledges shortness breath with activity. He denies shortness of breath at rest, cough, orthopnea, or PND. He denies lightheadedness, dizziness, near-syncope, syncope. He denies fatigue. 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 Is patient in pain?: No Allergies Penicillins (PCN) Allergy (Verified 08/10/25 13:38) Other Cojokxn-JSD-VrX Reductase Inhibitor Adverse Reaction (Intermediate, Verified 08/10/25 13:38) myalgias lisinopril Adverse Reaction (Verified 08/10/25 13:38) cough spironolactone Adverse Reaction (Verified 08/10/25 13:38) elevated blood sugar Medications ???Medication ???Instructions ???Recorded ???Confirmed ???Type needle (disp) 18 G 18 gauge x 1 #100 ea 05/22/22 07/28/25 Rx (BD Regular Bevel [place]) flash glucose scanning reader #1 ea 02/05/24 07/28/25 Rx (FreeStyle Jean 2 [place]) cholecalciferol (vitamin D3) 125 5,000 unit PO DAILY 05/05/2408/10 History mcg (5,000 unit) tablet (Vitamin D3) ferrous sulfate 325 mg (65 mg 325 mg PO DAILY 05/05/24 08/10/25 History iron) tablet (FeroSul) trifluoperazine 2 mg tablet 2 mg PO 0300 For nervous tics. 06/2108/10/25 History syringe with needle, safety 3 mL #50 ea 05/13/24 07/28/25 Rx 25 gauge x 1 aspirin 81 mg tablet,delayed 81 mg PO 1400 05/23/24 08/10/25 Hi story release magnesium glycinate 100 mg (as 100 mg PO QHS 09/05/24 08/10/25 Hi story glycinate) tablet (Mag Glycinate) melatonin 10 mg capsule 10 mg PO QHS PRN sleep 09/05/24 History carvedilol 25 mg tablet 25 mg PO BID #180 tabs 10/23/24 Rx omeprazole 20 mg capsule,delayed 20 mg PO BID #180 caps 11/13/24 Rx release multivitamin 1 tab PO QDAY 01/01/25 08/10/25 Hi story amlodipine 5 mg tablet 5 mg PO DAILY #90 TABLETS 01/23/25 08/10/25 Rx flash glucose sensor (FreeStyle #1 ea 03/13/25 07/28/25 Rx Jean 2 Sensor kit) isosorbide mononitrate 60 mg 60 mg PO BID #180 tabs 03/13/25 Rx tablet,extended release 24 hr nitroglycerin 0.4 mg sublingual 0.4 mg sublingual Q5-15M P (more content not included)... Normal [facility] MR/BMS.IMBon 07-28-2025 MR/BMS.IMB [facility] [address] [place] [address] OFFICE VISIT Date of Service: 07/28/25 MR#: [id number] Acct: [id number] Name: ALIX LEE Rep #: [id number] : 1960 Provider: Dr. Pietro ram MD Age/Sex: 65/M Location: [facility] Status: Signed Intake Vital Signs 06/17/25 15:11 07/28/25 10:34 Height 6 ft 1 in 6 ft 1 in Weight: 266 lb 8 oz 260 lb BMI 35.2 34.2 BP 153/79 H 173/90 H Blood Pressure Location Lt brachial Lt brachial Position Sitting Sitting Respiration 16 Pulse 98 86 Pulse Source Monitor Monitor Temp 98.6 F 98.4 F Temp Source Temporal Temporal Pulse Oximetry (%) 95 97 Oxygen Delivery Method room air room air Intake Visit Reasons: Persistent Cough 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 Accompanied by: Self Is patient in pain?: No Allergies Penicillins (PCN) Allergy (Verified 07/28/25 10:37) Other Kaegqgt-WHB-VvG Reductase Inhibitor Adverse Reaction (Intermediate, Verified 07/28/25 10:37) myalgias lisinopril Adverse Reaction (Verified 07/28/25 10:37) cough spironolactone Adverse Reaction (Verified 07/28/25 10:37) elevated blood sugar Medications ???Medication ???Instructions ???Recorded ???Confirmed ???Type needle (disp) 18 G 18 gauge x 1 #100 ea 05/22/22 07/28/25 Rx (BD Regular Bevel [place]) flash glucose scanning reader #1 ea 02/05/24 07/28/25 Rx (FreeStyle Jean 2 [place]) cholecalciferol (vitamin D3) 125 5,000 unit PO DAILY 05/05/2407/28 History mcg (5,000 unit) tablet (Vitamin D3) ferrous sulfate 325 mg (65 mg 325 mg PO DAILY 05/05/24 07/28/25 History iron) tablet (FeroSul) trifluoperazine 2 mg tablet 2 mg PO 0300 For nervous tics. 06/2107/28/25 History syringe with needle, safety 3 mL #50 ea 05/13/24 07/28/25 Rx 25 gauge x 1 aspirin 81 mg tablet,delayed 81 mg PO 1400 05/23/24 07/28/25 Hi story release magnesium glycinate 100 mg (as 100 mg PO QHS 09/05/24 07/28/25 Hi story glycinate) tablet (Mag Glycinate) melatonin 10 mg capsule 10 mg PO QHS PRN sleep 09/05/24 History carvedilol 25 mg tablet 25 mg PO BID #180 tabs 10/23/24 Rx metformin 500 mg tablet,extended 1,000 mg (2 x 500 mg) PO BID #360 11/13/24 07/28/25 Rx release 24 hr tabs omeprazole 20 mg capsule,delayed 20 mg PO BID #180 caps 11/13/24 Rx release duloxetine 60 mg capsule,delayed 60 mg PO QDAY 01/01/25 07/28/25 Hi story release multivitamin 1 tab PO QDAY 01/01/25 07/28/25 Hi story amlodipine 5 mg tablet 5 mg PO DAILY #90 TABLETS 01/23/25 07/28/25 Rx flash glucose sensor (FreeStyle #1 ea 03/13/25 07/28/25 Rx Jean 2 Sensor kit) isosorbide mononitrate 60 mg 60 mg PO BID #180 tabs 03/13/25 Rx tablet,extended release 24 hr nitroglycerin 0.4 mg sublingual 0.4 mg sublingual Q5-15M PRN chest 03/13/25 07/28/25 Rx tablet (Nitrostat) pain #25 tabs semaglutide 2 mg/dose (8 mg/3 mL) 2 mg (0.75 mL) subcut QWEEK #3 mL 06/10/25 07/28/25 Rx subcutaneous pen injector testosterone cypionate 200 mg/mL 150 mg (0.75 mL) IM Q2W #5 mL 01/2007/28/25 Rx intramuscular oil mirtazapine 7.5 mg tablet 7.5 mg PO QHS 07/28/25 07/28/25 Hi story venlafaxine 37.5 mg 37.5 mg PO QDAY 07/28/25 07/28/25 History capsule,extended release 24 hr PFSH Medical History (Updated 07/28/25 @ 11:[address] Pietro Turner MD) Persistent dry cough Discomfort of right hip Concern about urinary tract disease without diagnosis UTI (urinary tract infection) Acute bronchitis Erectile dysfunction Alcohol use Bruising High cholesterol Gastric reflux History of Holter monitoring History of echocardiogram Nausea vomiting Colon cancer screening Wears hearing aid Wears glasses Schizophrenia Anxiety Diabetes Low iron Fatty liver Restless legs Back pain Tic disorder History of diverticulitis Former smoker History of stress test Cardiology follow-up encounter Hypertension Cholelithiasis History of sarcoidosis Depression Pancreatitis 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 Normal [facility] Testosterone, Total / Freeon 06-29-2025 TESTOSTER,FREE 3.61 ng/dL Abnormal 5.00-21.00 [facility] Comment on above: Order Comment: N Performed By: #### L 100.0100, L500.4050, L3100.5310, L500.4100 ####[facility] [address] [place], [address] TESTOSTER,TOTAL 148 ng/dL Low 264-916 [facility] Comment on above: Order Comment: N Result Comment: Adul t male reference interval is based on a population of healthy nonobese males (BMI <30) between 19 and 39 years old. Rick et.al. JCEM 2017,102;9875-2570. PMID: [id number]. Performed By: #### L 100.0100, L500.4050, L3100.5310, L500.4100 ####[facility] [address] [place], [address] TESTOSTERONE,%F 2.44 Normal 1.50-4.20 [facility] Comment on above: Order Comment: N Result Comment: Perf ormed at: [facility] [address] [id number] Set O Type Operator: Geovanny Moore PhD, Phone: [phone] Performed at: [facility] [address] [id number] Set O Type Operator: Lyle Alves MD, Phone: [phone] Performed By: #### L 100.0100, L500.4050, L3100.5310, L500.4100 ####[facility] [address] [place], [address] CBC W/Diff, Automatedon 08- Absolute Neut Normal 2.0-7.7 [facility] Comment on above: Result Comment: RASHAD ENT SAID HE WAS ONLY SUPPOSED TO GET THIS TESTOST FT DONE Performed By: #### L 100.0100, L500.4050, L3100.5310, L500.4100 ####[facility] [address] [place], [address] HCT Normal 40-54 [facility] Comment on above: Result Comment: RASHAD ENT SAID HE WAS ONLY SUPPOSED TO GET THIS TESTOST FT DONE Performed By: #### L 100.0100, L500.4050, L3100.5310, L500.4100 ####[facility] [address] [place], [address] HGB Normal 13.0-16.5 [facility] Comment on above: Result Comment: RASHAD DAWSON SAID HE WAS ONLY SUPPOSED TO GET THIS TESTOST FT DONE Performed By: #### L 100.0100, L500.4050, L3100.5310, L500.4100 ####[facility] [address] [place], [address] MCH Normal 27.0-32.0 [facility] Comment on above: Result Comment: RASHAD DAWSON SAID HE WAS ONLY SUPPOSED TO GET THIS TESTOST FT DONE Performed By: #### L 100.0100, L500.4050, L3100.5310, L500.4100 ####[facility] [address] [place], [address] MCHC Normal 32-36 [facility] Comment on above: Result Comment: RASHAD DAWSON SAID HE WAS ONLY SUPPOSED TO GET THIS TESTOST FT DONE Performed By: #### L 100.0100, L500.4050, L3100.5310, L500.4100 ####[facility] [address] [place], [address] MCV Normal 80-94 [facility] Comment on above: Result Comment: RASHAD DAWSON SAID HE WAS ONLY SUPPOSED TO GET THIS TESTOST FT DONE Performed By: #### L 100.0100, L500.4050, L3100.5310, L500.4100 ####[facility] [address] [place], [address] NEUT% Normal 47-70 [facility] Comment on above: Result Comment: RASHAD ENT SAID HE WAS ONLY SUPPOSED TO GET THIS TESTOST FT DONE Performed By: #### L 100.0100, L500.4050, L3100.5310, L500.4100 ####[facility] [address] [place], [address] PLT Normal 150-450 [facility] Comment on above: Result Comment: RASHAD ENT SAID HE WAS ONLY SUPPOSED TO GET THIS TESTOST FT DONE Performed By: #### L 100.0100, L500.4050, L3100.5310, L500.4100 ####[facility] [address] [place], [address] RBC Normal 4.6-6.2 [facility] Comment on above: Result Comment: RASHAD ENT SAID HE WAS ONLY SUPPOSED TO GET THIS TESTOST FT DONE Performed By: #### L 100.0100, L500.4050, L3100.5310, L500.4100 ####[facility] [address] [place], [address] RDW CV Normal 11.6-14.6 [facility] Comment on above: Result Comment: RASHAD ENT SAID HE WAS ONLY SUPPOSED TO GET THIS TESTOST FT DONE Performed By: #### L 100.0100, L500.4050, L3100.5310, L500.4100 ####[facility] [address] [place], [address] RDW SD Normal 35.1-43.9 [facility] Comment on above: Result Comment: RASHAD ENT SAID HE WAS ONLY SUPPOSED TO GET THIS TESTOST FT DONE Performed By: #### L 100.0100, L500.4050, L3100.5310, L500.4100 ####[facility] [address] [place], [address] WBC Normal 4.4-11.0 [facility] Comment on above: Result Comment: RASHAD ENT SAID HE WAS ONLY SUPPOSED TO GET THIS TESTOST FT DONE Performed By: #### L 100.0100, L500.4050, L3100.5310, L500.4100 ####[facility] [address] [place], [address] Comprehensive Metabolic Prof roseline 06-24-2025 ALB Normal 3.4-4.8 [facility] Comment on above: Result Comment: RASHAD ENT SAID HE WAS ONLY SUPPOSED TO GET THIS TESTOST FT DONE Performed By: #### L 100.0100, L500.4050, L3100.5310, L500.4100 ####[facility] [address] [place], [address] ALK PHOS Normal 40-129 [facility] Comment on above: Result Comment: RASHAD ENT SAID HE WAS ONLY SUPPOSED TO GET THIS TESTOST FT DONE Performed By: #### L 100.0100, L500.4050, L3100.5310, L500.4100 ####[facility] [address] [place], [address] ALT Normal <=46 [facility] Comment on above: Result Comment: RASHAD ENT SAID HE WAS ONLY SUPPOSED TO GET THIS TESTOST FT DONE Performed By: #### L 100.0100, L500.4050, L3100.5310, L500.4100 ####[facility] [address] [place], [address] AST Normal <=37 [facility] Comment on above: Result Comment: RASHAD ENT SAID HE WAS ONLY SUPPOSED TO GET THIS TESTOST FT DONE Performed By: #### L 100.0100, L500.4050, L3100.5310, L500.4100 ####[facility] [address] [place], [address] BUN Normal 4-19 [facility] Comment on above: Result Comment: RASHAD ENT SAID HE WAS ONLY SUPPOSED TO GET THIS TESTOST FT DONE Performed By: #### L 100.0100, L500.4050, L3100.5310, L500.4100 ####[facility] [address] [place], [address] BUN/CRE Normal 10-20 [facility] Comment on above: Result Comment: RASHAD ENT SAID HE WAS ONLY SUPPOSED TO GET THIS TESTOST FT DONE Performed By: #### L 100.0100, L500.4050, L3100.5310, L500.4100 ####[facility] [address] [place], [address] Calcium Normal 7.6-11.0 [facility] Comment on above: Result Comment: RASHAD ENT SAID HE WAS ONLY SUPPOSED TO GET THIS TESTOST FT DONE Performed By: #### L 100.0100, L500.4050, L3100.5310, L500.4100 ####[facility] [address] [place], [address] CL Normal 98-108 [facility] Comment on above: Result Comment: RASHAD ENT SAID HE WAS ONLY SUPPOSED TO GET THIS TESTOST FT DONE Performed By: #### L 100.0100, L500.4050, L3100.5310, L500.4100 ####[facility] [address] [place], [address] CO2 Normal 21.0-32.0 [facility] Comment on above: Result Comment: RASHAD ENT SAID HE WAS ONLY SUPPOSED TO GET THIS TESTOST FT DONE Performed By: #### L 100.0100, L500.4050, L3100.5310, L500.4100 ####[facility] [address] [place], [address] CREAT,SERUM Normal 0.70-1.20 [facility] Comment on above: Result Comment: RASHAD ENT SAID HE WAS ONLY SUPPOSED TO GET THIS TESTOST FT DONE Performed By: #### L 100.0100, L500.4050, L3100.5310, L500.4100 ####[facility] [address] [place], [address] eGFR Normal >60 [facility] Comment on above: Result Comment: RASHAD ENT SAID HE WAS ONLY SUPPOSED TO GET THIS TESTOST FT DONE Performed By: #### L 100.0100, L500.4050, L3100.5310, L500.4100 ####[facility] [address] [place], [address] GAP Normal 5-15 [facility] Comment on above: Result Comment: RASHAD ENT SAID HE WAS ONLY SUPPOSED TO GET THIS TESTOST FT DONE Performed By: #### L 100.0100, L500.4050, L3100.5310, L500.4100 ####[facility] [address] [place], [address] GLU Normal 70-99 [facility] Comment on above: Result Comment: RASHAD ENT SAID HE WAS ONLY SUPPOSED TO GET THIS TESTOST FT DONE Performed By: #### L 100.0100, L500.4050, L3100.5310, L500.4100 ####[facility] [address] [place], [address] Potassium Normal 3.3-5.1 [facility] Comment on above: Result Comment: RASHAD ENT SAID HE WAS ONLY SUPPOSED TO GET THIS TESTOST FT DONE Performed By: #### L 100.0100, L500.4050, L3100.5310, L500.4100 ####[facility] [address] [place], [address] T BILI Normal 0.00-1.30 [facility] Comment on above: Result Comment: RASHAD ENT SAID HE WAS ONLY SUPPOSED TO GET THIS TESTOST FT DONE Performed By: #### L 100.0100, L500.4050, L3100.5310, L500.4100 ####[facility] [address] [place], [address] T PROT Normal 5.9-8.4 [facility] Comment on above: Result Comment: RASHAD ENT SAID HE WAS ONLY SUPPOSED TO GET THIS TESTOST FT DONE Performed By: #### L 100.0100, L500.4050, L3100.5310, L500.4100 ####[facility] [address] [place], [address] Comprehensive Metabolic Profil Normal 133-145 [facility] Comment on above: Result Comment: RASHAD DAWSON SAID HE WAS ONLY SUPPOSED TO GET THIS TESTOST FT DONE Performed By: #### L 100.0100, L500.4050, L3100.5310, L500.4100 ####[facility] [address] [place], [address] Free testosterone percentage Ordered By: Pietro Turner on 06-24-2025 Testosterone Free/Testosterone.totleonor l [Mass fraction] 2.44 % 1.50-4.20 [facility] Comment on above: Performed at: [address] [id number] Director: Geovanny Moore PhD, Phone: [phone] at: [facility] [id number] Director: Lyle Alves MD, Phone: [phone] Lipid Profileon 06-24-2025 TRIG Normal [facility] Comment on above: Result Comment: RASHAD DAWSON SAID HE WAS ONLY SUPPOSED TO GET THIS TESTOST FT DONE The drugs N-Acetylcysteine and Metamizole may falsely depress this assay. Performed By: #### L 100.0100, L500.4050, L3100.5310, L500.4100 ####[facility] [address] [place], [address] CHOL Normal <=200 [facility] Comment on above: Result Comment: RASHAD DAWSON SAID HE WAS ONLY SUPPOSED TO GET THIS TESTOST FT DONE Performed By: #### L 100.0100, L500.4050, L3100.5310, L500.4100 ####[facility] [address] [place], [address] CHOL:HDL Normal [facility] Comment on above: Result Comment: RASHAD ENT SAID HE WAS ONLY SUPPOSED TO GET THIS TESTOST FT DONE Performed By: #### L 100.0100, L500.4050, L3100.5310, L500.4100 ####[facility] [address] [place], [address] CLDL Normal [facility] Comment on above: Result Comment: RASHAD ENT SAID HE WAS ONLY SUPPOSED TO GET THIS TESTOST FT DONE Performed By: #### L 100.0100, L500.4050, L3100.5310, L500.4100 ####[facility] [address] [place], [address] HDL Normal [facility] Comment on above: Result Comment: RASHAD ENT SAID HE WAS ONLY SUPPOSED TO GET THIS TESTOST FT DONE Performed By: #### L 100.0100, L500.4050, L3100.5310, L500.4100 ####[facility] [address] [place], [address] VLDL Normal 5-40 [facility] Comment on above: Result Comment: RASHAD ENT SAID HE WAS ONLY SUPPOSED TO GET THIS TESTOST FT DONE Performed By: #### L 100.0100, L500.4050, L3100.5310, L500.4100 ####[facility] [address] [place], [address] Serum or plasma free testost erone measurement (mass/volume)Ordered By: Pietro Turner on 06-24-2025 Testosterone Free [Mass/Vol] 3.61 ng/dL Low 5.00-21.00 [facility] Testosterone, totalOrdered B y: Pietro Turner on 06-24-2025 Testosterone [Mass/Vol] 148 ng/dL Low 264-916 [facility] Comment on above: Adult male reference interval is based on a population ofhealthy nonobese males (BMI <30) between 19 and 39 yearsold. Rick et.al. JCEM 2017,102;1045-5930. PMID:[id number]. Testosterone, Total / Freeon 06-23-2025 TESTOSTER,FREE 10.85 ng/dL Normal 5.00-21.00 [facility] Comment on above: Order Comment: N Performed By: #### L 502.0500, L500.4050, L501.9985, L3100.5310 #### [facility] [address] [place], [address] TESTOSTER,TOTAL 450 ng/dL Normal 264-916 [facility] Comment on above: Order Comment: N Result Comment: Adul t male reference interval is based on a population of healthy nonobese males (BMI <30) between 19 and 39 years old. Rick et.al. JCEM 2017,102;9363-3494. PMID: [id number]. Performed By: #### L 502.0500, L500.4050, L501.9985, L3100.5310 #### [facility] [address] [place], [address] TESTOSTERONE,%F 2.41 Normal 1.50-4.20 [facility] Comment on above: Order Comment: N Result Comment: Perf ormed at: [facility] [address] [id number] Set O Type Operator: Geovanny Moore PhD, Phone: [phone] Performed at: [facility] [address] [id number] Set O Type Operator: Lyle Alves MD, Phone: [phone] Performed By: #### L 502.0500, L500.4050, L501.9985, L3100.5310 #### [facility] [address] [place], [address] Rolando 06-17-2025 /BRIDGETTE.TIFFANIE [facility] [address] [place] [address]. [address] [place] [address] OFFICE VISIT Date of Service: 06/17/25 MR#: [id number] Acct: [id number] Name: ALIX LEE Rep #: [id number] : 1960 Provider: Dr. 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 Accompanied by: Self Is patient in pain?: No Allergies Penicillins (PCN) Allergy (Verified 06/17/25 15:05) Other Fgtymge-ANZ-YsU Reductase Inhibitor Adverse Reaction (Intermediate, Verified 06/17/25 15:05) myalgias lisinopril Adverse Reaction (Verified 06/17/25 15:05) cough spironolactone Adverse Reaction (Verified 06/17/25 15:05) elevated blood sugar Medications ???Medication ???Instructions ???Recorded ???Confirmed ???Type needle (disp) 18 G 18 gauge x 1 #100 ea 05/22/22 06/17/25 Rx (BD Regular Bevel [place]) flash glucose scanning reader #1 ea 02/05/24 06/17/25 Rx (FreeStyle Jean 2 [place]) cholecalciferol (vitamin D3) 125 5,000 unit PO DAILY 05/05/2406/17 History mcg (5,000 unit) tablet (Vitamin D3) ferrous sulfate 325 mg (65 mg 325 mg PO DAILY 05/05/24 06/17/25 History iron) tablet (FeroSul) trifluoperazine 2 mg tablet 2 mg PO 0300 For nervous tics. 06/2106/17/25 History syringe with needle, safety 3 mL #50 ea 05/13/24 06/17/25 Rx 25 gauge x 1 aspirin 81 mg tablet,delayed 81 mg PO 1400 05/23/24 06/17/25 Hi story release magnesium glycinate 100 mg (as 100 mg PO QHS 09/05/24 06/17/25 Hi story glycinate) tablet (Mag Glycinate) melatonin 10 mg capsule 10 mg PO QHS PRN sleep 09/05/24 History carvedilol 25 mg tablet 25 mg PO BID #180 tabs 10/23/24 Rx metformin 500 mg tablet,extended 1,000 mg (2 x 500 mg) PO BID #360 11/13/24 06/17/25 Rx release 24 hr tabs omeprazole 20 mg capsule,delayed 20 mg PO BID #180 caps 11/13/24 Rx release duloxetine 60 mg capsule,delayed 60 mg PO QDAY 01/01/25 06/17/25 Hi story release multivitamin 1 tab PO QDAY 01/01/25 06/17/25 Hi story testosterone cypionate 200 mg/mL 100 mg (0.5 mL) IM Q2W #5 mL 01/0206/17/25 Rx intramuscular oil amlodipine 5 mg tablet 5 mg PO DAILY #90 TABLETS 01/23/25 06/17/25 Rx flash glucose sensor (FreeStyle #1 ea 03/13/25 06/17/25 Rx Jean 2 Sensor kit) isosorbide mononitrate 60 mg 60 mg PO BID #180 tabs 03/13/25 Rx tablet,extended release 24 hr nitroglycerin 0.4 mg sublingual 0.4 mg sublingual Q5-15M PRN chest 03/13/25 06/17/25 Rx tablet (Nitrostat) pain #25 tabs mirtazapine 30 mg tablet 30 mg PO QHS 05/18/25 06/17/25 His tory semaglutide 2 mg/dose (8 mg/3 mL) 2 mg (0.75 mL) subcut QWEEK #3 mL 06/10/25 06/17/25 Rx subcutaneous pen injector pravastatin 10 mg tablet 10 mg PO 3XW 90 days #39 tabs 05/2906/17/25 Rx PFSH Medical History (Updated 06/17/25 @ 15:[address] Pietro Turner MD) Discomfort of right hip Concern about urinary tract disease without diagnosis UTI (urinary tract infection) Acute bronchitis Erectile dysfunction Alcohol use Bruising High cholesterol Gastric reflux History of Holter monitoring History of echocardiogram Nausea vomiting Colon cancer screening Wears hearing aid Wears glasses Schizophrenia Anxiety Diabetes Low iron Fatty liver Restless legs Back pain Tic disorder History of diverticulitis Former smoker History of stress test Cardiology follow-up encounter Hypertension Cholelithiasis History of sarcoidosis Depression Pancreatitis 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 Normal [facility] Anion gap in Serum or Plasma Ordered By: Pietro Turner on 06-15-2025 Anion gap [Moles/Vol] 14 mmol/L 5-15 [facility] BUN/creatinine ratioOrdered By: Pietro Turner on 06-15-2025 Urea nitrogen/Creatinine [Mass ratio] 17.2 mg/mg 10- [facility] Bilirubin directOrdered By: Jocelyne Dickey on 06-15-2025 Bilirubin.direct [Mass/Vol] 0.19 mg/dL 0.00-0.30 [facility] Bilirubin, totalOrdered By: Jocelyne Dickey on 06-15-2025 Bilirubin [Mass/Vol] 0.35 mg/dL 0.00-1.30 [facility] Calculated very low density lipoprotein (VLDL) cholesterol measurementOrdered By: Jocelyne Dickey on 06-15-2025 Calculated very low density lipoprotein (VLDL) cholesterol measurement 69 mg/dL High 5-40 [facility] Carbon dioxide, total [Moles /volume] in Central venous bloodOrdered By: Pietro Turner on 06-15-2025 CO2 [Moles/Vol] 22.4 mmol/L 21.0-32.0 [facility] Chloride assayOrdered By: Rohini Turner on 06-15-2025 Chloride [Moles/Vol] 101 mmol/L 98-108 [facility] Comprehensive Metabolic Prof ilon 06-15-2025 Albumin [Mass/Vol] 4.2 g/dL Normal 3.4-4.8 [facility] Comment on above: Performed By: #### L 502.0500, L500.4050, L501.9985, L3100.5310 #### [facility] [address] [place], [address] Performed By: #### L 500.4100, L500.3400 ####[facility] [address] [place], [address] Albumin/Globulin [Mass ratio] 1.9 {ratio} Normal 0.9-2.4 [facility] Comment on above: Performed By: #### L 502.0500, L500.4050, L501.9985, L3100.5310 #### [facility] [address] [place], [address] ALK PHOS 112 U/L Normal 40-129 [facility] Comment on above: Performed By: #### L 502.0500, L500.4050, L501.9985, L3100.5310 #### [facility] [address] [place], [address] ALT [Catalytic activity/Vol] 33 U/L Normal <=46 [facility] Comment on above: Performed By: #### L 502.0500, L500.4050, L501.9985, L3100.5310 #### [facility] [address] [place], [address] Performed By: #### L 500.4100, L500.3400 ####[facility] [address] [place], [address] AST [Catalytic activity/Vol] 32 U/L Normal <=37 [facility] Comment on above: Performed By: #### L 502.0500, L500.4050, L501.9985, L3100.5310 #### [facility] [address] [place], [address] Bilirubin [Mass/Vol] 0.33 mg/dL Normal 0.00-1.30 [facility] Comment on above: Performed By: #### L 502.0500, L500.4050, L501.9985, L3100.5310 #### [facility] [address] [place], [address] BUN/CRE 17.2 RATIO Normal 10-20 [facility] Comment on above: Performed By: #### L 502.0500, L500.4050, L501.9985, L3100.5310 #### [facility] [address] [place], [address] Calcium [Mass/Vol] 9.2 mg/dL Normal 7.6-11.0 [facility] Comment on above: Performed By: #### L 502.0500, L500.4050, L501.9985, L3100.5310 #### [facility] [address] [place], [address] Chloride [Moles/Vol] 101 mmol/L Normal 98-108 [facility] Comment on above: Performed By: #### L 502.0500, L500.4050, L501.9985, L3100.5310 #### [facility] [address] [place], [address] CO2 [Moles/Vol] 22.4 mmol/L Normal 21.0-32.0 [facility] Comment on above: Performed By: #### L 502.0500, L500.4050, L501.9985, L3100.5310 #### [facility] [address] [place], [address] Creatinine [Mass/Vol] 0.98 mg/dL Normal 0.70-1.20 [facility] Comment on above: Performed By: #### L 502.0500, L500.4050, L501.9985, L3100.5310 #### [facility] [address] [place], [address] GAP 14 Normal 5-15 [facility] Comment on above: Performed By: #### L 502.0500, L500.4050, L501.9985, L3100.5310 #### [facility] [address] [place], [address] GFR/1.73 sq M.predicted among non-blacks MDRD (S/P/Bld) [Vol rate/Area] 87 mL/min/{1.73_m2} Normal >60 [facility] Comment on above: Result Comment: mL/m in/1.73m2 CKD-EPI Creatinine Equation (2020) Performed By: #### L 502.0500, L500.4050, L501.9985, L3100.5310 #### [facility] [address] [place], [address] Globulin (S) [Mass/Vol] 2.3 g/dL Normal 2.2-4.2 [facility] Comment on above: Performed By: #### L 502.0500, L500.4050, L501.9985, L3100.5310 #### [facility] [address] [place], [address] Performed By: #### L 500.4100, L500.3400 ####[facility] [address] [place], [address] Glucose [Mass/Vol] 209 mg/dL High 70-99 [facility] Comment on above: Performed By: #### L 502.0500, L500.4050, L501.9985, L3100.5310 #### [facility] [address] [place], [address] Potassium [Moles/Vol] 3.6 mmol/L Normal 3.3-5.1 [facility] Comment on above: Performed By: #### L 502.0500, L500.4050, L501.9985, L3100.5310 #### [facility] [address] [place], [address] Sodium [Moles/Vol] 138 mmol/L Normal 133-145 [facility] Comment on above: Performed By: #### L 502.0500, L500.4050, L501.9985, L3100.5310 #### [facility] [address] [place], [address] T PROT 6.5 g/dL Normal 5.9-8.4 [facility] Comment on above: Performed By: #### L 502.0500, L500.4050, L501.9985, L3100.5310 #### [facility] [address] [place], [address] Performed By: #### L 500.4100, L500.3400 ####[facility] [address] [place], [address] Urea nitrogen [Mass/Vol] 17 mg/dL Normal 4-19 [facility] Comment on above: Performed By: #### L 502.0500, L500.4050, L501.9985, L3100.5310 #### [facility] [address] [place], [address] Free testosterone percentage Ordered By: Pietro Turner on 06-15-2025 Testosterone Free/Testosterone.tota l [Mass fraction] 2.41 % 1.50-4.20 [facility] Comment on above: Performed at: - [address] [id number] Director: Geovanny Moore PhD, Phone: [phone] at: [address] [id number] Director: Lyle Alves MD, Phone: [phone] Glomerular filtration rate ( GFR) estimation/1.73 sq m using serum, plasma, or whole bOrdered By: Pietro Turner on 06-15-2025 GFR/1.73 sq M.predicted among non-blacks MDRD (S/P/Bld) [Vol rate/Area] 87 mL/min/{1.73_m2} >60 [facility] Comment on above: mL/min/1.73m2 CKD-EP I Creatinine Equation (2020) Hemoglobin A1con 06-15-2025 HbA1c (Bld) [Mass fraction] 5.9 % High <=5.6 [facility] Comment on above: Result Comment: Norm al < 5.7 % Prediabetic 5.7 - 6.4 % Diabetic >or= 6.5 % Please note range changes. Performed By: #### L 502.0500, L500.4050, L501.9985, L3100.5310 #### [facility] [address] [place], [address] Hemoglobin A1c percentageOrd ered By: Pietro Turner on 06-15-2025 HbA1c (Bld) [Mass fraction] 5.9 % High <5.7 [facility] Comment on above: Normal < 5.7 % Predi abetic 5.7 - 6.4 % Diabetic >or= 6.5 % Please note range changes. LDL calc ser/plasOrdered By: Jocelyne Dickey on 06-15-2025 Cholesterol in LDL [Mass/Vol] -34 mg/dL [facility] Comment on above: Wrgcbaeqnr=442-503 m g/dL & Higher Xuhw=909 mg/dL or greaterFriedwald Equation for LDL-C Laboratory - Chemistry and C hemistry - challengeOrdered By: Jocelyne Dickey on 06-15-2025 AST [Catalytic activity/Vol] 33 U/L <38 [facility] Lipid Profileon 06-15-2025 CHOL:HDL 1.83 Normal [facility] Comment on above: Performed By: #### L 502.0500, L500.4050, L501.9985, L3100.5310 #### [facility] [address] [place], [address] Cholesterol [Mass/Vol] 78 mg/dL Normal <=200 [facility] Comment on above: Result Comment: Chol esterol level, Desirable <200 mg/dL Borderline high cholesterol 200-239 mg/dL High cholesterol >=240 mg/dL Recommendations of the NCEP Adult Treatment Panel for the following risk-cutoff thresholds for the [place] population. Performed By: #### L 502.0500, L500.4050, L501.9985, L3100.5310 #### [facility] [address] [place], [address] Cholesterol in HDL [Mass/Vol] 43 mg/dL Normal [facility] Comment on above: Result Comment: Anna onal Cholesterol Education Program (NCEP) guidelines: <40 mg/dL: Low HDL-cholesterol (major risk factor for CHD) >= 60 mg/dL: High HDL-cholesterol (negative risk factor for CHD) HDL-cholesterol is affected by a number of factors, e.g. smoking, exercise, hormones, sex and age. Performed By: #### L 502.0500, L500.4050, L501.9985, L3100.5310 #### [facility] [address] [place], [address] Cholesterol in LDL [Mass/Vol] -34 mg/dL Normal [facility] Comment on above: Result Comment: Bord acebjm=227-724 mg/dL Higher Afrw=060 mg/dL or greater Friedwald Equation for LDL-C Performed By: #### L 502.0500, L500.4050, L501.9985, L3100.5310 #### [facility] [address] [place], [address] Cholesterol in VLDL [Mass/Vol] 69 mg/dL High 5-40 [facility] Comment on above: Performed By: #### L 502.0500, L500.4050, L501.9985, L3100.5310 #### [facility] [address] [place], [address] Triglyceride [Mass/Vol] 346 mg/dL High [facility] Comment on above: Result Comment: The drugs N-Acetylcysteine and Metamizole may falsely depress this assay. Normal range: <150 mg/dL Borderline High: 150-199 mg/dL High: 200-499 mg/dL Very High: >500 mg/dL Performed By: #### L 502.0500, L500.4050, L501.9985, L3100.5310 #### [facility] [address] [place], [address] Liver Profileon 06-15-2025 ALK PHOS 113 U/L Normal 40-129 [facility] Comment on above: Performed By: #### L 500.4100, L500.3400 ####[facility] [address] [place], [address] AST [Catalytic activity/Vol] 33 U/L Normal <=37 [facility] Comment on above: Performed By: #### L 500.4100, L500.3400 ####[facility] [address] [place], [address] Bilirubin [Mass/Vol] 0.35 mg/dL Normal 0.00-1.30 [facility] Comment on above: Performed By: #### L 500.4100, L500.3400 ####[facility] [address] [place], [address] Bilirubin.direct [Mass/Vol] 0.19 mg/dL Normal 0.00-0.30 [facility] Comment on above: Performed By: #### L 500.4100, L500.3400 ####[facility] [address] [place], [address] Microalbumin,Random Urineon 06-15-2025 MICROALBUMIN,UR 13.9 mg/L Normal <20 mg/L [facility] Comment on above: Performed By: #### L 502.0500, L500.4050, L501.9985, L3100.5310 #### [facility] [place], [address] No Panel InformationOrdered By: Jocelyne Dickey on 06-15-2025 33 U/L <38 [facility] Potassium measurement (mass/ volume)Ordered By: Pietro Turner on 06-15-2025 Potassium (Unsp spec) [Mass/Vol] 3.6 mmol/L 3.3-5.1 [facility] Screening total cholesterol/ high density lipoprotein (HDL) cholesterol ratioOrdered By: Jocelyne Dickey on 06-15-2025 Cholesterol.total/Chol esterol in HDL [Mass ratio] 1.83 {ratio} [facility] Serum creatinine measurement (mass/volume)Ordered By: Pietro Turner on 06-15-2025 Creatinine [Mass/Vol] 0.98 mg/dL 0.70-1.20 [facility] Serum globulin measurementOr dered By: Jocelyne Dickey on 06-15-2025 Globulin (S) [Mass/Vol] 2.3 g/dL 2.2-4.2 [facility] Serum glucose measurement (m ass/volume)Ordered By: Pietro Turner on 06-15-2025 Glucose [Mass/Vol] 209 mg/dL High 70-99 [facility] Serum or plasma alanine carrillo otransferase (ALT) measurementOrdered By: Jocelyne Dickey on 06-15-2025 ALT [Catalytic activity/Vol] 33 U/L <47 [facility] Serum or plasma albumin michelle urement (mass/volume)Ordered By: Jocelyne Dickey on 06-15-2025 Albumin [Mass/Vol] 4.2 g/dL 3.4-4.8 [facility] Serum or plasma albumin/glob ulin mass ratioOrdered By: Pietro Turner on 06-15-2025 Albumin/Globulin [Mass ratio] 1.9 {ratio} 0.9-2.4 [facility] Serum or plasma alkaline andres sphatase measurementOrdered By: Jocelyne Dickey on 06-15-2025 ALP [Catalytic activity/Vol] 113 U/L 40-129 [facility] Serum or plasma calcium michelle urement (mass/volume)Ordered By: Pietro Turner on 06-15-2025 Calcium [Mass/Vol] 9.2 mg/dL 7.6-11.0 [facility] Serum or plasma cholesterol in HDL measurement (mass/volume)Ordered By: Jocelyne Dickey on 06-15-2025 Cholesterol in HDL [Mass/Vol] 43 mg/dL >40 [facility] Comment on above: National Cholesterol Education Program (NCEP) guidelines:<40 mg/dL: Low HDL-cholesterol (major risk factor for CHD)>= 60 mg/dL: High HDL-cholesterol (negative risk factor for CHD)HDL-cholesterol is affected by a number of factors, e.g. smoking, exercise, hormones, sex and age. Serum or plasma cholesterol measurement (mass/volume)Ordered By: Jocelyne Dickey on 06-15-2025 Cholesterol [Mass/Vol] 78 mg/dL <201 [facility] Comment on above: Cholesterol level, D esirable <200 mg/dLBorderline high cholesterol 200-239 mg/dLHigh cholesterol >=240 mg/dLRecommendations of the NCEP Adult Treatment Panel for the following risk-cutoff thresholds for the [place] population. Serum or plasma free testost erone measurement (mass/volume)Ordered By: Pietro Turner on 06-15-2025 Testosterone Free [Mass/Vol] 10.85 ng/dL 5.00-21.00 [facility] Serum or plasma urea nitroge n measurement (mass/volume)Ordered By: Pietro Turner on 06-15-2025 Urea nitrogen [Mass/Vol] 17 mg/dL 4-19 [facility] Sodium levelOrdered By: Carmen Turner on 06-15-2025 Sodium [Moles/Vol] 138 mmol/L 133-145 [facility] Testosterone, totalOrdered B y: Pietro Turner on 06-15-2025 Testosterone [Mass/Vol] 450 ng/dL 264-916 [facility] Comment on above: Adult male reference interval is based on a population ofhealthy nonobese males (BMI <30) between 19 and 39 yearsold. chava Cabrera.al. JCEM 2017,102;[id number]. PMID:[id number]. Total proteinOrdered By: Adalberto Dickey on 06-15-2025 Protein [Mass/Vol] 6.5 g/dL 5.9-8.4 [facility] Triglycerides measurementOrd ered By: Jocelyne Dickey on 06-15-2025 Triglyceride [Mass/Vol] 346 mg/dL High <199 [facility] Comment on above: The drugs N-Acetylcy steine and Metamizole may falsely depress this assay. Normal range: <150 mg/dLBorderline High: 150-199 mg/dLHigh: 200-499 mg/dLVery High: >500 mg/dL Urine albumin measurement wi th detection limit of 20 mg/L or less (mass/volume)Ordered By: Pietro Turner on 06-15-2025 Albumin DL <= 20 mg/L (U) [Mass/Vol] 13.9 mg/L <20 mg/L [facility] Bilirubin Test strip Ql (U)O rdered By: Pietro Turner on 05-18-2025 Bilirubin Ql (U) Negative Negative [facility] Ketones Test strip Ql (U)Ord ered By: Pietro Turner on 05-18-2025 Ketones Ql (U) Negative Negative [facility] - Chemistry and C hemistry - challengeOrdered By: Pietro Turner on 05-18-2025 Bilirubin Ql (U) Negative [facility] Glucose Ql (U) Negative [facility] Ketones Ql (U) Negative [facility] pH (U) 6.0 [pH] [facility] Specific gravity (U) [Rel density] 1.025 [facility] Urobilinogen (U) [Mass/Vol] 0.9679808 mg/dL [facility] - Hematology and Cell countsOrdered By: Pietro Turner on 05-18-2025 Hemoglobin Ql (U) Negative [facility] - Specimen inform ationOrdered By: Pietro Turner on 05-18-2025 Clarity (U) Clear [facility] Color (U) YELLOW [facility] - UrinalysisOrder ed By: Pietro Turner on 05-18-2025 Nitrite Ql (U) Negative [facility] Protein Ql (U) Negative [facility] MR/BMSJanel 05-18-2025 MR/BMS.TIFFANIE [facility] [address] [place] [address] OFFICE VISIT Date of Service: 05/18/25 MR#: [id number] Acct: [id number] Name: ALIX LEE Rep #: [id number] : 1960 Provider: Dr. 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 Accompanied by: Self Is patient in pain?: No Allergies Penicillins (PCN) Allergy (Verified 05/18/25 11:36) Other Ldbnyoq-YEU-HzG Reductase Inhibitor Adverse Reaction (Intermediate, Verified 05/18/25 11:36) myalgias lisinopril Adverse Reaction (Verified 05/18/25 11:36) cough spironolactone Adverse Reaction (Verified 05/18/25 11:36) elevated blood sugar Medications ???Medication ???Instructions ???Recorded ???Confirmed ???Type needle (disp) 18 G 18 gauge x 1 #100 ea 05/22/22 05/18/25 Rx (BD Regular Bevel [place]) flash glucose scanning reader #1 ea 02/05/24 05/18/25 Rx (FreeStyle Jean 2 [place]) cholecalciferol (vitamin D3) 125 5,000 unit PO DAILY 05/05/2405/18 History mcg (5,000 unit) tablet (Vitamin D3) ferrous sulfate 325 mg (65 mg 325 mg PO DAILY 05/05/24 05/18/25 History iron) tablet (FeroSul) trifluoperazine 2 mg tablet 2 mg PO 0300 For nervous tics. 06/2105/18/25 History syringe with needle, safety 3 mL #50 ea 05/13/24 05/18/25 Rx 25 gauge x 1 aspirin 81 mg tablet,delayed 81 mg PO 1400 05/23/24 05/18/25 Hi story release magnesium glycinate 100 mg (as 100 mg PO QHS 09/05/24 05/18/25 Hi story glycinate) tablet (Mag Glycinate) melatonin 10 mg capsule 10 mg PO QHS PRN sleep 09/05/24 History carvedilol 25 mg tablet 25 mg PO BID #180 tabs 10/23/24 Rx metformin 500 mg tablet,extended 1,000 mg (2 x 500 mg) PO BID #360 11/13/24 05/18/25 Rx release 24 hr tabs omeprazole 20 mg capsule,delayed 20 mg PO BID #180 caps 11/13/24 Rx release semaglutide 1 mg/dose (4 mg/3 mL) 1 mg (0.75 mL) subcut QWEEK #3 mL 12/09/24 05/18/25 Rx subcutaneous pen injector duloxetine 60 mg capsule,delayed 60 mg PO QDAY 01/01/25 05/18/25 Hi story release multivitamin 1 tab PO QDAY 01/01/25 05/18/25 Hi story testosterone cypionate 200 mg/mL 100 mg (0.5 mL) IM Q2W #5 mL 01/0205/18/25 Rx intramuscular oil amlodipine 5 mg tablet 5 mg PO DAILY #90 TABLETS 01/23/25 05/18/25 Rx flash glucose sensor (FreeStyle #1 ea 03/13/25 05/18/25 Rx Jean 2 Sensor kit) isosorbide mononitrate 60 mg 60 mg PO BID #180 tabs 03/13/25 Rx tablet,extended release 24 hr nitroglycerin 0.4 mg sublingual 0.4 mg sublingual Q5-15M PRN chest 03/13/25 05/18/25 Rx tablet (Nitrostat) pain #25 tabs evolocumab 140 mg/mL subcutaneous 140 mg subcut Q2W #6 mL 04/06/25 05/18/25 Rx pen injector (Repdaphne Andres) mirtazapine 30 mg tablet 30 mg PO QHS 05/18/25 05/18/25 His tory [facility] Medical History (Updated 05/18/25 @ 13:[address] Pietro Turner MD) Concern about urinary tract disease without diagnosis UTI (urinary tract infection) Acute bronchitis Erectile dysfunction Alcohol use Bruising High cholesterol Gastric reflux History of Holter monitoring History of echocardiogram Nausea vomiting Colon cancer screening Wears hearing aid Wears glasses Schizophrenia Anxiety Diabetes Low iron Fatty liver Restless legs Back pain Tic disorder History of diverticulitis Former smoker History of stress test Cardiology follow-up encounter Hypertension Cholelithiasis History of sarcoidosis Depression Pancreatitis 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 Normal [facility] Microscopic analysis of urin e for red blood cells (RBC)Ordered By: Pietro Turner on 05-18-2025 Microscopic analysis of urine for red blood cells (RBC) 0 SEEN /hpf 0-5 [facility] Mucus LM Ql (Urine sed)Order ed By: Pietro Turner on 05-18-2025 Mucus Ql (Urine sed) 0 SEEN /hpf [facility] Nitrite Test strip Ql (U)Ord ered By: Pietro Turner on 05-18-2025 Nitrite Ql (U) Negative Negative [facility] No Panel InformationOrdered By: Pietro Turner on 05-18-2025 Urine Leukocytes Negatve [facility] Urine Non-Hemolyzed Blood [facility] YELLOW [facility] Clear [facility] Negative [facility] 1.025 [facility] 6.0 [facility] 0.2 mg/dL [facility] Negatve [facility] Protein Test strip Ql (U)Ord ered By: Pietro Turner on 05-18-2025 Protein Ql (U) 15 mg/dl High Negative [facility] Squamous epithelial cells de tection in urine sediment by light microscopyOrdered By: Pietro Turner on 05-18-2025 Epithelial cells.squamous LM Ql (Urine sed) 0-5 SEEN /hpf 0-5 [facility] Urinalysis, Completeon 05-18 EPI,SQUAMOUS 0-5 SEEN Normal 0-5 [facility] Comment on above: Order Comment: ADITHYA CTOR TO SPECIFY Performed By: #### L 502.0500, L500.4050, L501.9985, L3100.5310 #### [facility] [address] [place], [address] WBC 0-5 SEEN Normal 0-5 [facility] Comment on above: Order Comment: ADITHYA CTOR TO SPECIFY Performed By: #### L 502.0500, L500.4050, L501.9985, L3100.5310 #### [facility] [address] [place], [address] BACTERIA 0 SEEN Normal None Seen [facility] Comment on above: Order Comment: ADITHYA CTOR TO SPECIFY Performed By: #### L 502.0500, L500.4050, L501.9985, L3100.5310 #### [facility] [address] [place], [address] Mucus Ql (Urine sed) 0 SEEN Normal [facility] Comment on above: Order Comment: ADITHYA CTOR TO SPECIFY Performed By: #### L 502.0500, L500.4050, L501.9985, L3100.5310 #### [facility] [address] [place], [address] RBC 0 SEEN Normal 0-5 [facility] Comment on above: Order Comment: ADITHYA CTOR TO SPECIFY Performed By: #### L 502.0500, L500.4050, L501.9985, L3100.5310 #### [facility] [address] [place], [address] Urine clarityOrdered By: Britni Turner on 05-18-2025 Clarity (U) Sl. Cloudy Clear [facility] Urine color determinationOrd ered By: Pietro Turner on 05-18-2025 Color (U) Yellow Yellow [facility] Urine glucose detectionOrder ed By: Pietro Turner on 05-18-2025 Glucose Ql (U) Normal mg/dl Normal [facility] Urine leukocyte esterase det ection by dipstickOrdered By: Pietro Turner on 05-18-2025 Leukocyte esterase Test strip Ql (U) Negative Negative [facility] Urine pHOrdered By: Pietro whittaker on 05-18-2025 pH (U) 6.0 [pH] 5.0 - 8.0 [facility] Urine sediment bacteria coun t by microscopy (number/high power field)Ordered By: Pietro Turner on 05-18-2025 Bacteria LM.HPF (Urine sed) [#/Area] 0 /[HPF] None Seen [facility] Urine specific gravity measu rementOrdered By: Pietro Turner on 05-18-2025 Specific gravity (U) [Rel density] 1.020 1.002-1.03 0 [facility] Urine urobilinogen measureme ntOrdered By: Pietro Turner on 05-18-2025 Urobilinogen Ql (U) Normal mg/dl Normal [facility] White blood cell countOrdere d By: Pietro Turner on 05-18-2025 White blood cell count 0-5 SEEN /hpf 0-5 [facility] CNOVon 05-14-2025 CNOV Office Visit ([id number]) ALIX LEE ([id number]) 1960 [place] Date Time Provider Department 05/14/25 2:00 PM DIOGENES SHERMAN [id number] During your visit today, we recorded the following information about you: Pulse Blood pressure 78/minute 164/92 Diogenes Sherman, THERAPIST PHYSICAL.MANAGER CASE MANAGEMENT 05/14/2025 4:01 PM Signed [facility] NEW PATIENT HISTORY AND PHYSICAL EXAMINATION PATIENT: Alix Lee (65 year old) PCP: Kasey Ingram MD Assessment AND Plan Erectile dysfunction, unspecified erectile dysfunction type - Erectile dysfunction likely multifactorial, influenced by current medications including isosorbide and Cymbalta. Educated patient on the use of phosphodiesterase inhibitors such as sildenafil and tadalafil, emphasizing the contraindication with concurrent use of nitrates like isosorbide and nitroglycerin. Discussed potential side effects including headaches, nasal congestion, flushing, dyspepsia, myalgia, and priapism. Advised patient to consult with container washer regarding discontinuation of isosorbide before initiating PDE5 inhibitors. Alternative treatments discussed include vacuum erection devices and intracavernosal injections. Patient to follow up with container washer and notify us once cleared to discontinue isosorbide. Male hypogonadism - Currently on testosterone cypionate 100 mg IM every 2 weeks. Recent testosterone levels reportedly at the lower end of normal. Ordered serum testosterone trough level to be drawn 2 days before next scheduled injection and peak level 2 days after injection, both before 10:00 AM to ensure accurate measurement. Will review results to determine if dosage adjustment is necessary. Orders: TESTOSTERONE, TOTAL BY IMMUNOASSAY (ADULT MALES, OR INDIVIDUALS ON TESTOSTERONE THERAPY); Future TESTOSTERONE, TOTAL BY IMMUNOASSAY (ADULT MALES, OR INDIVIDUALS ON TESTOSTERONE THERAPY); Future History of kidney stones - Passed a small kidney stone a few months ago; no current issues reported. No family history of nephrolithiasis. Monitor for any recurrent symptoms. Family history of prostate cancer - Brother with a history of prostate cancer. Patient is aware and follows up with primary care physician for regular screenings. FOLLOW UP: Return if symptoms worsen or fail to improve. CHIEF COMPLAINT: Patient presents with: Erectile Dysfunction HISTORY OF PRESENT ILLNESS: I personally reviewed the patient's past medical records. Mr. Lee is a 65 year old male referred by self for ED. Previous Urologist: unsure Hx of kidney stones: a few months ago, no prior imaging Family hx of kidney stones/treatment: denies Personal/family hx of kidney cancer, bladder cancer, or prostate cancer: brother hx of prostate cancer Previous surgery on kidneys, bladder, urethra, or prostate: denies Hx of smoking: denies Environmental/occupational exposures: denies Erectile Dysfunction: - Onset over the past year. - Able to achieve partial erections, but insufficient for penetration. - Experiences morning erections and can achieve erections with masturbation, but they do not last. - Last successful intercourse was years ago; has not had an intimate relationship for a long time. - Libido is pretty good now; does not attribute improvement to testosterone therapy. - Reports difficulty achieving orgasm, stating it takes so long. - Denies penile curvature or pain with intercourse. - Currently on testosterone injections, 100 mg every 2 weeks, prescribed by Dr. Carlisle. - Recent testosterone levels were at the low end of normal; patient inquired about increasing the dose but was advised against it by Dr. Carlisle. Coronary Artery Disease: - History of myocardial infarction with 98% blockage in the LAD. - Currently taking isosorbide and low-dose aspirin. - Last took nitroglycerin about 6 months ago for suspected chest pain, but believes it was indigestion. - Reports being very hypersensitive about heart health and does not take chances due to past IA. - Recent blood pressure reading was 164/92 mmHg. Kidney Stones: - Passed a small kidney stone a few months ago; no other stones detected. - Denies family history of kidney stones. Family History: - Brother has a history of prostate cancer. Social History: - Former smoker, quit in 2006. REVIEW OF SYSTEMS GENERAL:denies unintentional weight loss, malaise or fevers. NEUROLOGIC: pt is alert and oriented GASTROINTESTINAL: No nausea, vomiting, or diarrhea GENITOURINARY: See HPI MUSCULOSKELETAL: Negative for joint pain or swelling, b (more content not included)... Normal [facility] MR/BMS.IMBon 04-27-2025 MR/BMS.IMB [facility] [address] [place] [address] OFFICE VISIT Date of Service: 04/27/25 MR#: [id number] Acct: [id number] Name: ALIX LEE Rep #: [id number] : 1960 Provider: Dr. 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 Accompanied by: Self Is patient in pain?: Yes (Sore throat) Pain scale (1-10): 2 Allergies Penicillins (PCN) Allergy (Verified 04/27/25 10:27) Other Fevvbsj-ONJ-AzT Reductase Inhibitor Adverse Reaction (Intermediate, Verified 04/27/25 10:27) myalgias lisinopril Adverse Reaction (Verified 04/27/25 10:27) cough spironolactone Adverse Reaction (Verified 04/27/25 10:27) elevated blood sugar Medications ???Medication ???Instructions ???Recorded ???Confirmed ???Type needle (disp) 18 G 18 gauge x 1 #100 ea 05/22/22 04/27/25 Rx (BD Regular Bevel [place]) flash glucose scanning reader #1 ea 02/05/24 04/27/25 Rx (FreeStyle Jean 2 [place]) cholecalciferol (vitamin D3) 125 5,000 unit PO DAILY 05/05/2404/27 History mcg (5,000 unit) tablet (Vitamin D3) ferrous sulfate 325 mg (65 mg 325 mg PO DAILY 05/05/24 04/27/25 History iron) tablet (FeroSul) trifluoperazine 2 mg tablet 2 mg PO 0300 For nervous tics. 06/2104/27/25 History syringe with needle, safety 3 mL #50 ea 05/13/24 04/27/25 Rx 25 gauge x 1 aspirin 81 mg tablet,delayed 81 mg PO 1400 05/23/24 04/27/25 Hi story release magnesium glycinate 100 mg (as 100 mg PO QHS 09/05/24 04/27/25 Hi story glycinate) tablet (Mag Glycinate) melatonin 10 mg capsule 10 mg PO QHS PRN sleep 09/05/24 History carvedilol 25 mg tablet 25 mg PO BID #180 tabs 10/23/24 Rx metformin 500 mg tablet,extended 1,000 mg (2 x 500 mg) PO BID #360 11/13/24 04/27/25 Rx release 24 hr tabs omeprazole 20 mg capsule,delayed 20 mg PO BID #180 caps 11/13/24 Rx release semaglutide 1 mg/dose (4 mg/3 mL) 1 mg (0.75 mL) subcut QWEEK #3 mL 12/09/24 04/27/25 Rx subcutaneous pen injector duloxetine 60 mg capsule,delayed 60 mg PO QDAY 01/01/25 04/27/25 Hi story release multivitamin 1 tab PO QDAY 01/01/25 04/27/25 Hi story quetiapine 25 mg tablet mg PO 01/01/25 04/27/25 History testosterone cypionate 200 mg/mL 100 mg (0.5 mL) IM Q2W #5 mL 01/0204/27/25 Rx intramuscular oil amlodipine 5 mg tablet 5 mg PO DAILY #90 TABLETS 01/23/25 04/27/25 Rx flash glucose sensor (FreeStyle #1 ea 03/13/25 04/27/25 Rx Jean 2 Sensor kit) isosorbide mononitrate 60 mg 60 mg PO BID #180 tabs 03/13/25 Rx tablet,extended release 24 hr nitroglycerin 0.4 mg sublingual 0.4 mg sublingual Q5-15M PRN chest 03/13/25 04/27/25 Rx tablet (Nitrostat) pain #25 tabs evolocumab 140 mg/mL subcutaneous 140 mg subcut Q2W #6 mL 04/06/25 04/27/25 Rx pen injector (Repatha SureClick) azithromycin 250 mg tablet See Rx Instructions PO .COMPLEX #6 04/27/25 04/27/25 Rx tabs guaifenesin 600 mg tablet, 600 mg PO BID PRN cough #30 tabs 0 04/27/25 04/27/25 Rx extended release 12 hr PFSH Medical History (Updated 04/27/25 @ 11:[address] Pietro Turner MD) Acute bronchitis Erectile dysfunction Alcohol use Bruising High cholesterol Gastric reflux History of Holter monitoring History of echocardiogram Nausea vomiting Colon cancer screening Wears hearing aid Wears glasses Schizophrenia Anxiety Diabetes Low iron Fatty liver Restless legs Back pain Tic disorder History of diverticulitis Former smoker History of stress test Cardiology follow-up encounter Hypertension Cholelithiasis History of sarcoidosis Depression Pancreatitis 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 History of non-ST elevation myocardial infarction (NSTEMI) (07/26/20) Essential hypertension Type 2 diabetes mellitus Nausea Fatigue Urinary hesitancy Liver disease Hypoglycemia Hyperlipemia Gout GERD (gastroesophageal reflux disease) Anxiety and depression Bone fracture Anemia History of alcohol abuse Schizoaffective disorder Surgical History (more content not included)... Normal [facility] Testosterone, Total / Freeon 02-23-2025 TESTOSTER,FREE 11.06 ng/dL Normal 5.00-21.00 [facility] Comment on above: Order Comment: N Performed By: #### L 502.0500, L500.4050, L501.9985, L3100.5310 #### [facility] [address] [place], [place], [id number] TESTOSTER,TOTAL 280 ng/dL Normal 264-916 [facility] Comment on above: Order Comment: N Result Comment: Adul t male reference interval is based on a population of healthy nonobese males (BMI <30) between 19 and 39 years old. chava Cabrera.al. JCEM 2017,102;9742-7206. PMID: [id number]. Performed By: #### L 502.0500, L500.4050, L501.9985, L3100.5310 #### [facility] [address] [place], [place], [id number] TESTOSTERONE,%F 3.95 Normal 1.50-4.20 [facility] Comment on above: Order Comment: N Result Comment: Perf ormed at: - [facility] [address] [id number] Set O Type Operator: Geovanny Moore PhD, Phone: [phone] Performed at: - [facility] [address] [id number] Set O Type Operator: Lyle Alves MD, Phone: [phone] Performed By: #### L 502.0500, L500.4050, L501.9985, L3100.5310 #### [facility] [address] [place], [place], [id number] ALP [Catalytic activity/Vol] Ordered By: Pietro Turner on 02-09-2025 Serum or plasma alkaline phosphatase measurement 91 U/L 40-129 [facility] ALT [Catalytic activity/Vol] Ordered By: Pietro Turner on 02-09-2025 Serum or plasma alanine aminotransferase (ALT) measurement 18 U/L <47 [facility] Absolute lymphocyte countOrd ered By: Pietro Turner on 02-09-2025 Lymphocytes Auto (Unsp spec) [#/Vol] 1.36 10*3/uL 0.83-4.51 [facility] Absolute neutrophil countOrd ered By: Pietro Turner on 02-09-2025 Neutrophils (Bld) [#/Vol] 5.2 10*3/uL 2.0-7.7 [facility] Absolute neutrophil count 5.2 X10^3/uL 2.0-7.7 [facility] Albumin [Mass/Vol]Ordered By : Pietro Turner on 02-09-2025 Serum or plasma albumin measurement (mass/volume) 4.6 g/dL 3.4-4.8 [facility] Albumin/Globulin [Mass ratio ]Ordered By: Pietro Turner on 02-09-2025 Serum or plasma albumin/globulin mass ratio 2.0 RATIO 0.9-2.4 [facility] Anion gap [Moles/Vol]Ordered By: Pietro Turner on 02-09-2025 Anion gap in Serum or Plasma 12 03-12 [facility] Anion gap in Serum or Plasma Ordered By: Pietro Turner on 02-09-2025 Anion gap [Moles/Vol] 12 mmol/L 03-12 [facility] Automated lymphocyte count a s percentage of total leukocytesOrdered By: Pietro Turner on 02-09-2025 Lymphocytes/100 WBC Auto (Unsp spec) 18.6 % Low 19-41 [facility] BUN/creatinine ratioOrdered By: Pietro Turner on 02-09-2025 Urea nitrogen/Creatinine [Mass ratio] 15.2 mg/mg 10-20 [facility] BUN/creatinine ratio 15.2 RATIO 10-20 [facility] Basophil percentageOrdered B y: Pietro Turner on 02-09-2025 Basophils/100 WBC (Bld) 0.5 % 0-1 [facility] Basophil percentage 0.5 % 0-1 [facility] Bilirubin, totalOrdered By: Pietro Turner on 02-09-2025 Bilirubin [Mass/Vol] 0.45 mg/dL 0.00-1.30 [facility] Bilirubin, total 0.45 mg/dL 0.00-1.30 [facility] CBC W/Diff, Automatedon 01-27 Absolute Lymph 1.36 X10 3/uL Normal 0.83-4.51 [facility] Comment on above: Performed By: #### L 502.0500, L500.4050, L501.9985, L3100.5310 #### [facility] [address] [place], [address] Absolute Neut 5.2 X10 3/uL Normal 2.0-7.7 [facility] Comment on above: Performed By: #### L 502.0500, L500.4050, L501.9985, L3100.5310 #### [facility] [address] [place], [address] Basophils/100 WBC (Bld) 0.5 % Normal 0-1 [facility] Comment on above: Performed By: #### L 502.0500, L500.4050, L501.9985, L3100.5310 #### [facility] [address] [place], [address] Eosinophils/100 WBC (Bld) 2.7 % Normal 0-5 [facility] Comment on above: Performed By: #### L 502.0500, L500.4050, L501.9985, L3100.5310 #### [facility] [address] [place], [address] Erythrocyte distribution width (RBC) [Ratio] 12.7 % Normal 11.6-14.6 [facility] Comment on above: Performed By: #### L 502.0500, L500.4050, L501.9985, L3100.5310 #### [facility] [address] [place], [address] Hematocrit (Bld) [Volume fraction] 37.5 % Low 40-54 [facility] Comment on above: Performed By: #### L 502.0500, L500.4050, L501.9985, L3100.5310 #### [facility] [address] [place], [address] Hemoglobin (Bld) [Mass/Vol] 13.2 g/dL Normal 13.0-16.5 [facility] Comment on above: Performed By: #### L 502.0500, L500.4050, L501.9985, L3100.5310 #### [facility] [address] [place], [address] IG% 0.400 Normal 0.0-0.9 [facility] Comment on above: Result Comment: IG% - Immature Granulocytes (promyelocytes, myelocytes and metamyelocytes) > 1% indicates that a LEFT SHIFT is Present. Performed By: #### L 502.0500, L500.4050, L501.9985, L3100.5310 #### [facility] [address] [place], [address] Lymphocytes/100 WBC (Bld) 18.6 % Low 19-41 [facility] Comment on above: Performed By: #### L 502.0500, L500.4050, L501.9985, L3100.5310 #### [facility] [address] [place], [address] MCH (RBC) [Entitic mass] 31.1 pg Normal 27.0-32.0 [facility] Comment on above: Performed By: #### L 502.0500, L500.4050, L501.9985, L3100.5310 #### [facility] [address] [place], [address] MCHC (RBC) [Mass/Vol] 35.2 g/dL Normal 32-36 [facility] Comment on above: Performed By: #### L 502.0500, L500.4050, L501.9985, L3100.5310 #### [facility] [address] [place], [address] MCV (RBC) [Entitic vol] 88.4 fL Normal 80-94 [facility] Comment on above: Performed By: #### L 502.0500, L500.4050, L501.9985, L3100.5310 #### [facility] [address] [place], [address] Monocytes/100 WBC (Bld) 7.0 % Normal 0-10 [facility] Comment on above: Performed By: #### L 502.0500, L500.4050, L501.9985, L3100.5310 #### [facility] [address] [place], [address] Neutrophils/100 WBC (Bld) 70.8 % High 47-70 [facility] Comment on above: Performed By: #### L 502.0500, L500.4050, L501.9985, L3100.5310 #### [facility] [address] [place], [address] Nucleated RBC (Bld) [#/Vol] 0 10*3/uL Normal 0-5 [facility] Comment on above: Performed By: #### L 502.0500, L500.4050, L501.9985, L3100.5310 #### [facility] [address] [place], [address] Platelet mean volume (Bld) [Entitic vol] 9.3 fL Normal 6.2-12.0 [facility] Comment on above: Performed By: #### L 502.0500, L500.4050, L501.9985, L3100.5310 #### [facility] [address] [place], [address] Platelets (Bld) [#/Vol] 204 10*3/uL Normal 150-450 [facility] Comment on above: Performed By: #### L 502.0500, L500.4050, L501.9985, L3100.5310 #### [facility] [address] [place], [address] RBC (Bld) [#/Vol] 4.24 10*6/uL Low 4.6-6.2 [facility] Comment on above: Performed By: #### L 502.0500, L500.4050, L501.9985, L3100.5310 #### [facility] [address] [place], [address] RDW SD 39.9 fl Normal 35.1-43.9 [facility] Comment on above: Performed By: #### L 502.0500, L500.4050, L501.9985, L3100.5310 #### [facility] [address] [place], [address] WBC (Bld) [#/Vol] 7.3 10*3/uL Normal 4.4-11.0 [facility] Comment on above: Performed By: #### L 502.0500, L500.4050, L501.9985, L3100.5310 #### [facility] [address] [place], [address] Calcium [Mass/Vol]Ordered By : Pietro Turner on 02-09-2025 Serum or plasma calcium measurement (mass/volume) 9.9 mg/dL 7.6-11.0 [facility] Calculated very low density lipoprotein (VLDL) cholesterol measurementOrdered By: Pietro Turner on 02-09-2025 Calculated very low density lipoprotein (VLDL) cholesterol measurement 39 mg/dL -40 [facility] Calculated very low density lipoprotein (VLDL) cholesterol measurement 39 mg/dL -40 [facility] Carbon dioxide, total [Moles /volume] in Central venous bloodOrdered By: Pietro Turner on 02-09-2025 CO2 [Moles/Vol] 23.7 mmol/L 21.0-32.0 [facility] Carbon dioxide, total [Moles/volume] in Central venous blood 23.7 mmol/L 21.0-32.0 [facility] Chloride assayOrdered By: Rohini Turner on 02-09-2025 Chloride [Moles/Vol] 99 mmol/L 98-108 [facility] Chloride assay 99 mmol/L 98-108 [facility] Cholesterol [Mass/Vol]Ordere d By: Pietro Turner on 02-09-2025 Serum or plasma cholesterol measurement (mass/volume) 170 mg/dL <201 [facility] Cholesterol in HDL [Mass/Vol ]Ordered By: Pietro Turner on 02-09-2025 Serum or plasma cholesterol in HDL measurement (mass/volume) 41 mg/dL >40 [facility] Cobalamin (Vitamin B12) [Mas s/Vol]Ordered By: Pietro Turner on 02-09-2025 Vitamin B12 ser/plas 608 pg/mL 180-914 [facility] Comprehensive Metabolic Prof ilon 02-09-2025 Albumin [Mass/Vol] 4.6 g/dL Normal 3.4-4.8 [facility] Comment on above: Performed By: #### L 502.0500, L500.4050, L501.9985, L3100.5310 #### [facility] [address] [place], [address] Albumin/Globulin [Mass ratio] 2.0 {ratio} Normal 0.9-2.4 [facility] Comment on above: Performed By: #### L 502.0500, L500.4050, L501.9985, L3100.5310 #### [facility] [address] [place], [address] ALK PHOS 91 U/L Normal 40-129 [facility] Comment on above: Performed By: #### L 502.0500, L500.4050, L501.9985, L3100.5310 #### [facility] [address] [place], [address] ALT [Catalytic activity/Vol] 18 U/L Normal <=46 [facility] Comment on above: Performed By: #### L 502.0500, L500.4050, L501.9985, L3100.5310 #### [facility] [address] [place], [address] AST [Catalytic activity/Vol] 21 U/L Normal <=37 [facility] Comment on above: Performed By: #### L 502.0500, L500.4050, L501.9985, L3100.5310 #### [facility] [address] [place], [address] Bilirubin [Mass/Vol] 0.45 mg/dL Normal 0.00-1.30 [facility] Comment on above: Performed By: #### L 502.0500, L500.4050, L501.9985, L3100.5310 #### [facility] [address] [place], [address] BUN/CRE 15.2 RATIO Normal 10-20 [facility] Comment on above: Performed By: #### L 502.0500, L500.4050, L501.9985, L3100.5310 #### [facility] [address] [place], [address] Calcium [Mass/Vol] 9.9 mg/dL Normal 7.6-11.0 [facility] Comment on above: Performed By: #### L 502.0500, L500.4050, L501.9985, L3100.5310 #### [facility] [address] [place], [address] Chloride [Moles/Vol] 99 mmol/L Normal 98-108 [facility] Comment on above: Performed By: #### L 502.0500, L500.4050, L501.9985, L3100.5310 #### [facility] [address] [place], [address] CO2 [Moles/Vol] 23.7 mmol/L Normal 21.0-32.0 [facility] Comment on above: Performed By: #### L 502.0500, L500.4050, L501.9985, L3100.5310 #### [facility] [address] [place], [address] Creatinine [Mass/Vol] 0.95 mg/dL Normal 0.70-1.20 [facility] Comment on above: Performed By: #### L 502.0500, L500.4050, L501.9985, L3100.5310 #### [facility] [address] [place], [address] GAP 12 Normal 5-15 [facility] Comment on above: Performed By: #### L 502.0500, L500.4050, L501.9985, L3100.5310 #### [facility] [address] [place], [address] GFR/1.73 sq M.predicted among non-blacks MDRD (S/P/Bld) [Vol rate/Area] 91 mL/min/{1.73_m2} Normal >60 [facility] Comment on above: Result Comment: mL/m in/1.73m2 CKD-EPI Creatinine Equation (2020) Performed By: #### L 502.0500, L500.4050, L501.9985, L3100.5310 #### [facility] [address] [place], [address] Globulin (S) [Mass/Vol] 2.3 g/dL Normal 2.2-4.2 [facility] Comment on above: Performed By: #### L 502.0500, L500.4050, L501.9985, L3100.5310 #### [facility] [address] [place], [address] Glucose [Mass/Vol] 124 mg/dL High 70-99 [facility] Comment on above: Performed By: #### L 502.0500, L500.4050, L501.9985, L3100.5310 #### [facility] [address] [place], [address] Potassium [Moles/Vol] 4.2 mmol/L Normal 3.3-5.1 [facility] Comment on above: Performed By: #### L 502.0500, L500.4050, L501.9985, L3100.5310 #### [facility] [address] [place], [address] Sodium [Moles/Vol] 135 mmol/L Normal 133-145 [facility] Comment on above: Performed By: #### L 502.0500, L500.4050, L501.9985, L3100.5310 #### [facility] [address] [place], [address] T PROT 6.9 g/dL Normal 5.9-8.4 [facility] Comment on above: Performed By: #### L 502.0500, L500.4050, L501.9985, L3100.5310 #### [facility] [address] [place], [address] Urea nitrogen [Mass/Vol] 14 mg/dL Normal 4-19 [facility] Comment on above: Performed By: #### L 502.0500, L500.4050, L501.9985, L3100.5310 #### [facility] [address] [place], [address] Creatinine [Mass/Vol]Ordered By: Pietro Turner on 02-09-2025 Serum creatinine measurement (mass/volume) 0.95 mg/dL 0.70-1.20 [facility] Eosinophil percentageOrdered By: Pietro Turner on 02-09-2025 Eosinophils/100 WBC (Bld) 2.7 % 0-5 [facility] Eosinophil percentage 2.7 % 0-5 [facility] Erythrocyte distribution wid th (RBC) [Ratio]Ordered By: Pietro Turner on 02-09-2025 Erythrocyte distribution width ratio 12.7 % 11.6-14.6 [facility] Erythrocyte distribution width standard deviation 39.9 fl 35.1-43.9 [facility] Erythrocyte distribution wid th ratioOrdered By: Pietro Turner on 02-09-2025 Erythrocyte distribution width (RBC) [Ratio] 12.7 % 11.6-14.6 [facility] Erythrocyte distribution wid th standard deviationOrdered By: Pietro Turner on 02-09-2025 Erythrocyte distribution width (RBC) [Ratio] 39.9 fl 35.1-43.9 [facility] Free T3on 02-09-2025 Free T3 [Mass/Vol] 2.6 pg/mL Normal 2.18-3.98 [facility] Comment on above: Order Comment: N Performed By: #### L 502.0500, L500.4050, L501.9985, L3100.5310 #### [facility] [address] [place], [address] Free F7Fhotjzy By: Pietro schmitt on 02-09-2025 Free T3 [Mass/Vol] 2.6 pg/mL 2.18-3.98 [facility] Free T3 2.6 pg/mL 2.18-3.98 [facility] Free testosterone percentage Ordered By: Pietro Turner on 02-09-2025 Testosterone Free/Testosterone.tota l [Mass fraction] 3.95 % 1.50-4.20 [facility] Comment on above: Performed at: [address] [id number] Director: Geovanny Moore PhD, Phone: [phone] at: [facility] [id number] Director: Lyle Alves MD, Phone: [phone] GFR/1.73 sq M.predicted tuyet g non-blacks MDRD (S/P/Bld) [Vol rate/Area]Ordered By: Pietro Turner on 02-09-2025 Glomerular filtration rate (GFR) estimation/1.73 sq m using serum, plasma, or whole b 91 >60 [facility] Glomerular filtration rate ( GFR) estimation/1.73 sq m using serum, plasma, or whole bOrdered By: Pietro Turner on 02-09-2025 GFR/1.73 sq M.predicted among non-blacks MDRD (S/P/Bld) [Vol rate/Area] 91 mL/min/{1.73_m2} >60 [facility] Comment on above: mL/min/1.73m2 CKD-EP I Creatinine Equation (2020) Glucose [Mass/Vol]Ordered By : Pietro Turner on 02-09-2025 Serum glucose measurement (mass/volume) 124 mg/dL High 70-99 [facility] HbA1c (Bld) [Mass fraction]O rdered By: Pietro Turner on 02-09-2025 Hemoglobin A1c percentage 5.9 % High <5.7 [facility] Hematocrit Auto (Bld) [Volum e fraction]Ordered By: Pietro Turner on 02-09-2025 Hematocrit (Bld) [Volume fraction] 37.5 % Low 40-54 [facility] Automated blood hematocrit (percentage) 37.5 % Low 40-54 [facility] Hemoglobin A1con 02-09-2025 HbA1c (Bld) [Mass fraction] 5.9 % High <=5.6 [facility] Comment on above: Result Comment: Norm al < 5.7 % Prediabetic 5.7 - 6.4 % Diabetic >or= 6.5 % Please note range changes. Performed By: #### L 502.0500, L500.4050, L501.9985, L3100.5310 #### [facility] [address] [place] [address], [id number] Hemoglobin A1c percentageOrd ered By: Pietro Turner on 02-09-2025 HbA1c (Bld) [Mass fraction] 5.9 % High <5.7 [facility] Comment on above: Normal < 5.7 % Predi abetic 5.7 - 6.4 % Diabetic >or= 6.5 % Please note range changes. Hemoglobin measurementOrdere d By: Pietro Turner on 02-09-2025 Hemoglobin (Bld) [Mass/Vol] 13.2 g/dL 13.0-16.5 [facility] Hemoglobin measurement 13.2 g/dL 13.0-16.5 [facility] Immature granulocytes/100 WB C Auto (Bld)Ordered By: Pietro Turner on 02-09-2025 Immature granulocytes/100 WBC (Bld) 0.400 % 0.0-0.9 [facility] Comment on above: IG% - Immature Granu locytes (promyelocytes, myelocytes and metamyelocytes) > 1% indicates that a LEFT SHIFT is Present. Automated immature granulocyte percentage 0.400 % 0.0-0.9 [facility] LDL calc ser/plasOrdered By: Pietro Turner on 02-09-2025 Cholesterol in LDL [Mass/Vol] 90 mg/dL [facility] Comment on above: Jfqicautil=360-225 m g/dL & Higher Ocng=251 mg/dL or greater LDL calc ser/plas 90 mg/dL [facility] - Chemistry and C hemistry - challengeOrdered By: Pietro Turner on 02-09-2025 AST [Catalytic activity/Vol] 21 U/L <38 [facility] Lipid Profileon 02-09-2025 CHOL:HDL 4.17 Normal [facility] Comment on above: Performed By: #### L 502.0500, L500.4050, L501.9985, L3100.5310 #### [facility] [address] [place], [place], [id number] Cholesterol [Mass/Vol] 170 mg/dL Normal <=200 [facility] Comment on above: Result Comment: Chol esterol level, Desirable <200 mg/dL Borderline high cholesterol 200-239 mg/dL High cholesterol >=240 mg/dL Recommendations of the NCEP Adult Treatment Panel for the following risk-cutoff thresholds for the [place] population. Performed By: #### L 502.0500, L500.4050, L501.9985, L3100.5310 #### [facility] [address] [place], [place], [id number] Cholesterol in HDL [Mass/Vol] 41 mg/dL Normal [facility] Comment on above: Result Comment: [place] onal Cholesterol Education Program (NCEP) guidelines: <40 mg/dL: Low HDL-cholesterol (major risk factor for CHD) >= 60 mg/dL: High HDL-cholesterol (negative risk factor for CHD) HDL-cholesterol is affected by a number of factors, e.g. smoking, exercise, hormones, sex and age. Performed By: #### L 502.0500, L500.4050, L501.9985, L3100.5310 #### [facility] [address] [place], [address] Cholesterol in LDL [Mass/Vol] 90 mg/dL Normal [facility] Comment on above: Result Comment: Bord ltyrfl=001-132 mg/dL Higher Ggwp=276 mg/dL or greater Performed By: #### L 502.0500, L500.4050, L501.9985, L3100.5310 #### [facility] [address] [place], [address] Cholesterol in VLDL [Mass/Vol] 39 mg/dL Normal 5-40 [facility] Comment on above: Performed By: #### L 502.0500, L500.4050, L501.9985, L3100.5310 #### [facility] [address] [place], [address] Triglyceride [Mass/Vol] 195 mg/dL Normal [facility] Comment on above: Result Comment: The drugs N-Acetylcysteine and Metamizole may falsely depress this assay. Normal range: <150 mg/dL Borderline High: 150-199 mg/dL High: 200-499 mg/dL Very High: >500 mg/dL Performed By: #### L 502.0500, L500.4050, L501.9985, L3100.5310 #### [facility] [address] [place], [address] Lymphocytes Auto (Unsp spec) [#/Vol]Ordered By: Pietro Turner on 02-09-2025 Absolute lymphocyte count 1.36 X10^3/uL 0.83-4.51 [facility] Lymphocytes/100 WBC Auto (Un sp spec)Ordered By: Pietro Turner on 02-09-2025 Automated lymphocyte count as percentage of total leukocytes 18.6 % Low 19-41 [facility] MCV (RBC) [Entitic vol]Order ed By: Pietro Turner on 02-09-2025 MCV (mean corpuscular volume) determination 88.4 fL 80-94 [facility] MCV (mean corpuscular volume ) determinationOrdered By: Pietro Turner on 02-09-2025 MCV (RBC) [Entitic vol] 88.4 fL 80-94 [facility] Magnesiumon 02-09-2025 Magnesium [Mass/Vol] 2.2 mg/dL Normal 1.5-2.2 [facility] Comment on above: Performed By: #### L 502.0500, L500.4050, L501.9985, L3100.5310 #### [facility] [address] [facility] [place], [address] Magnesium (Unsp spec) [Mass/ Vol]Ordered By: Pietro Turner on 02-09-2025 Magnesium measurement (mass/volume) 2.2 mg/dL 1.5-2.2 [facility] Magnesium measurement (mass/ volume)Ordered By: Pietro Turner on 02-09-2025 Magnesium (Unsp spec) [Mass/Vol] 2.2 mg/dL 1.5-2.2 [facility] Mean corpuscular hemoglobin (MCH) determinationOrdered By: Pietro Turner on 02-09-2025 MCH (RBC) [Entitic mass] 31.1 pg 27.0-32.0 [facility] Mean corpuscular hemoglobin (MCH) determination 31.1 pg 27.0-32.0 [facility] Mean corpuscular hemoglobin concentration (MCHC) determinationOrdered By: Pietro Turner on 02-09-2025 MCHC (RBC) [Mass/Vol] 35.2 g/dL 32-36 [facility] Mean corpuscular hemoglobin concentration (MCHC) determination 35.2 g/dL -36 [facility] Mean platelet volume determi nationOrdered By: Pietro Turner on 02-09-2025 Platelet mean volume (Bld) [Entitic vol] 9.3 fL 6.2-12.0 [facility] Mean platelet volume determination 9.3 fl 6.2-12.0 [facility] Monocyte percentageOrdered B y: Pietro Turner on 02-09-2025 Monocytes/100 WBC (Bld) 7.0 % 0-10 [facility] Monocyte percentage 7.0 % 0-10 [facility] Neutrophil percentageOrdered By: Pietro Turner on 02-09-2025 Neutrophils/100 WBC (Bld) 70.8 % High 47-70 [facility] Neutrophil percentage 70.8 % High 47-70 [facility] No Panel InformationOrdered By: Pietro Turner on 02-09-2025 21 U/L <38 [facility] Nucleated red blood cell per centageOrdered By: Pietro Turner on 02-09-2025 Nucleated RBC/100 WBC (Bld) [Ratio] 0 % 0-5 [facility] Nucleated red blood cell percentage 0 % 0-5 [facility] PSA, total screeningOrdered By: Pietro Turner on 02-09-2025 PSA, total screening 0.31 ng/mL 0.02-4.00 [facility] PSA,Total - Annual Screenon 02-09-2025 PSA,TOT SCREEN 0.31 ng/mL Normal 0.02-4.00 [facility] Comment on above: Result Comment: This test was performed using the [employer] tPSA method. Measured values of a patient??sample can vary depending on the testing procedure used. PSA values determined on patient samples by different testing procedures cannot be used interchangeably. If there is a change in PSA assays while monitoring therapy, sequential testing should be performed to confirm baseline values. Performed By: #### L 502.0500, L500.4050, L501.9985, L3100.5310 #### [facility] [address] [place], [address] Platelet countOrdered By: Rohini Turner on 02-09-2025 Platelets (Bld) [#/Vol] 204 10*3/uL 150-450 [facility] Platelet count 204 K/mm3 150-450 [facility] Potassium (Unsp spec) [Mass/ Vol]Ordered By: Pietro Turner on 02-09-2025 Potassium measurement (mass/volume) 4.2 mmol/L 3.3-5.1 [facility] Potassium measurement (mass/ volume)Ordered By: Pietro Turner on 02-09-2025 Potassium (Unsp spec) [Mass/Vol] 4.2 mmol/L 3.3-5.1 [facility] RBC Auto (Bld) [#/Vol]Ordere d By: Pietro Turner on 02-09-2025 RBC (Bld) [#/Vol] 4.24 10*6/uL Low 4.6-6.2 [facility] Automated blood erythrocyte count 4.24 M/mm3 Low 4.6-6.2 [facility] Screening total cholesterol/ high density lipoprotein (HDL) cholesterol ratioOrdered By: Pietro Turner on 02-09-2025 Cholesterol.total/Chol esterol in HDL [Mass ratio] 4.17 {ratio} [facility] Screening total cholesterol/high density lipoprotein (HDL) cholesterol ratio 4.17 [facility] Serum creatinine measurement (mass/volume)Ordered By: Pietro Turner on 02-09-2025 Creatinine [Mass/Vol] 0.95 mg/dL 0.70-1.20 [facility] Serum globulin measurementOr dered By: Pietro Turner on 02-09-2025 Globulin (S) [Mass/Vol] 2.3 g/dL 2.2-4.2 [facility] Serum globulin measurement 2.3 g/dL 2.2-4.2 [facility] Serum glucose measurement (m ass/volume)Ordered By: Pietro Turner on 02-09-2025 Glucose [Mass/Vol] 124 mg/dL High 70-99 [facility] Serum or plasma alanine carrillo otransferase (ALT) measurementOrdered By: Pietro Turner on 02-09-2025 ALT [Catalytic activity/Vol] 18 U/L <47 [facility] Serum or plasma albumin michelle urement (mass/volume)Ordered By: Pietro Turner on 02-09-2025 Albumin [Mass/Vol] 4.6 g/dL 3.4-4.8 [facility] Serum or plasma albumin/glob ulin mass ratioOrdered By: Pietro Turner on 02-09-2025 Albumin/Globulin [Mass ratio] 2.0 {ratio} 0.9-2.4 [facility] Serum or plasma alkaline andres sphatase measurementOrdered By: Pietro Turner on 02-09-2025 ALP [Catalytic activity/Vol] 91 U/L 40-129 [facility] Serum or plasma calcium michelle urement (mass/volume)Ordered By: Pietro Turner on 02-09-2025 Calcium [Mass/Vol] 9.9 mg/dL 7.6-11.0 [facility] Serum or plasma cholesterol in HDL measurement (mass/volume)Ordered By: Pietro Turner on 02-09-2025 Cholesterol in HDL [Mass/Vol] 41 mg/dL >40 [facility] Comment on above: National Cholesterol Education Program (NCEP) guidelines:<40 mg/dL: Low HDL-cholesterol (major risk factor for CHD)>= 60 mg/dL: High HDL-cholesterol (negative risk factor for CHD)HDL-cholesterol is affected by a number of factors, e.g. smoking, exercise, hormones, sex and age. Serum or plasma cholesterol measurement (mass/volume)Ordered By: Pietro Turner on 02-09-2025 Cholesterol [Mass/Vol] 170 mg/dL <201 [facility] Comment on above: Cholesterol level, D esirable <200 mg/dLBorderline high cholesterol 200-239 mg/dLHigh cholesterol >=240 mg/dLRecommendations of the NCEP Adult Treatment Panel for the following risk-cutoff thresholds for the [place] population. Serum or plasma free testost erone measurement (mass/volume)Ordered By: Pietro Turner on 02-09-2025 Testosterone Free [Mass/Vol] 11.06 ng/dL 5.00-21.00 [facility] Serum or plasma urea nitroge n measurement (mass/volume)Ordered By: Pietro Turner on 02-09-2025 Urea nitrogen [Mass/Vol] 14 mg/dL 4-19 [facility] Sodium levelOrdered By: Carmen Turner on 02-09-2025 Sodium [Moles/Vol] 135 mmol/L 133-145 [facility] Sodium level 135 mmol/L 133-145 [facility] T4 Free Directon 02-09-2025 T4 FREE DIRECT 1.20 ng/dL Normal 0.76-1.46 [facility] Comment on above: Order Comment: N Performed By: #### L 502.0500, L500.4050, L501.9985, L3100.5310 #### [facility] [address] [place], [place], [id number] T4 freeOrdered By: Pietro schmitt on 02-09-2025 Free T4 [Mass/Vol] 1.20 ng/dL 0.76-1.46 [facility] T4 free 1.20 ng/dL 0.76-1.46 [facility] TSH DL <= 0.005 mIU/L QnOrde red By: Pietro Turner on 02-09-2025 TSH Qn 3.490 uIU/mL 0.300-4.20 0 [facility] Serum or plasma thyroid stimulating hormone (TSH) measurement by high sensitivity met 3.490 uIU/mL 0.300-4.20 0 [facility] Testosterone, totalOrdered B y: Pietro Turner on 02-09-2025 Testosterone [Mass/Vol] 280 ng/dL 264-916 [facility] Comment on above: Adult male reference interval is based on a population ofhealthy nonobese males (BMI <30) between 19 and 39 yearsold. chava Cabrera.al. JCEM 2017,102;8425-7135. PMID:[id number]. Thyroid Stim Hormone (TSH)on 02-09-2025 TSH 3.490 uIU/mL Normal 0.300-4.20 0 [facility] Comment on above: Performed By: #### L 502.0500, L500.4050, L501.9985, L3100.5310 #### [facility] [address] [place], [place], [id number] Total proteinOrdered By: Britni Turner on 02-09-2025 Protein [Mass/Vol] 6.9 g/dL 5.9-8.4 [facility] Total protein 6.9 g/dL 5.9-8.4 [facility] Triglycerides measurementOrd ered By: Pietro Turner on 02-09-2025 Triglyceride [Mass/Vol] 195 mg/dL <199 [facility] Comment on above: The drugs N-Acetylcy steine and Metamizole may falsely depress this assay. Normal range: <150 mg/dLBorderline High: 150-199 mg/dLHigh: 200-499 mg/dLVery High: >500 mg/dL Triglycerides measurement 195 mg/dL <199 [facility] Urea nitrogen [Mass/Vol]Orde red By: Pietro Turner on 02-09-2025 Serum or plasma urea nitrogen measurement (mass/volume) 14 mg/dL 4- [facility] Vitamin B12on 02-09-2025 Cobalamin (Vitamin B12) [Mass/Vol] 608 pg/mL Normal 180-914 [facility] Comment on above: Performed By: #### L 502.0500, L500.4050, L501.9985, L3100.5310 #### [facility] [address] [place], [place], [id number] Vitamin B12 ser/plasOrdered By: Pietro Turner on 02-09-2025 Cobalamin (Vitamin B12) [Mass/Vol] 608 pg/mL 180-914 [facility] Vitamin D, 25-hydroxyOrdered By: Pietro Turner on 02-09-2025 Vitamin D, 25-hydroxy 30.2 ng/mL 30-100 [facility] Vitamin D,25 Hydroxyon 02-09 Vitamin D 25-OH 30.2 ng/mL Normal 30-100 [facility] Comment on above: Result Comment: Nguyen min D Status Deficiency: <20 ng/mL (50nmol/L) Insufficiency: 20-30 ng/mL (50-75 nmol/L) Sufficiency: 30-100 ng/mL (75-250 nmol/L) Toxicity: >100 ng/mL (>250 nmol/L) Performed By: #### L 502.0500, L500.4050, L501.9985, L3100.5310 #### [facility] [address] [place], [place], [id number] White blood cell (WBC) count Ordered By: Pietro Turner on 02-09-2025 WBC (Bld) [#/Vol] 7.3 10*3/uL 4.4-11.0 [facility] White blood cell (WBC) count 7.3 K/mm3 4.4-11.0 [facility] OT D/C of Non Returning Pton 02-05-2025 OT D/C of Non Returning Pt [facility] Occupational Therapy [facility] [place] [address] / REHABILITATION SERVICES DISCHARGE SUMMARY MR#: [id number] Acct: [id number] Name: ALIX LEE Rep #: [id number] : 1960 64 From: Manasa Castro Referring Dr.: JAME Mcgrath Status: REG RCR Eval Date: Discharge Date: Patient Information Patient Information: ALIX LEE was seen in my office for initial evaluation on 10/08/24. The following Plan of Care was established for this patient: POC Established Initial Frequency: 3x /Week Initial Duration: 4-6 Weeks Plan: work toward eccentric exercise Anticipated Interventions Anticipated Interventions: A/AAROM/PROM, Strengthening, Triggerpoint Release, Modalities, Orthoses, Joint Protection/Energy Conservation, Education re Diagnosis and Home Program Last Seen Last Seen: This patient was last seen in our office 10/30/24. Pertinent comments regarding their Occupational therapy will appear below: This 64 year old male seen by OT for dx of R elbow tendinitis. Pt with progress made in strength ROM and reduction in pain. pt rates his improvement as 100% last time seen. discharge from OT caseload at this time due to lapse in time of services and no additional visits scheduled at this time. At this point I will be discontinuing this patient from occupational therapy. I would be happy to see this patient again in the future if found appropriate by the physician. Thank you! Manasa Castro 02/05/25 0930 CC: JAME Mcgrath; Dr. Pietro Turner MD CK Signed Normal [facility] MR/BMS.IMBon 01-01-2025 MR/BMS.IMB [facility] [address] [place] [address] OFFICE VISIT Date of Service: 01/01/25 MR#: [id number] Acct: [id number] Name: ALIX LEE Rep #: [id number] : 1960 Provider: Dr. 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 Accompanied by: Self Is patient in pain?: No Allergies Penicillins (PCN) Allergy (Verified 01/01/25 16:02) Other lisinopril Adverse Reaction (Verified 01/01/25 16:02) cough spironolactone Adverse Reaction (Verified 01/01/25 16:02) elevated blood sugar Medications ???Medication ???Instructions ???Recorded ???Confirmed ???Type needle (disp) 18 G 18 gauge x 1 #100 ea 05/22/22 01/01/25 Rx (BD Regular Bevel [place]) nitroglycerin 0.4 mg sublingual 0.4 mg sublingual Q5-15M PRN chest 01/11/24 01/01/25 Rx tablet (Nitrostat) pain #25 tabs flash glucose scanning reader #1 ea 02/05/24 01/01/25 Rx (FreeStyle Jean 2 [place]) flash glucose sensor (FreeStyle #1 ea 02/05/24 01/01/25 Rx Jean 2 Sensor kit) cholecalciferol (vitamin D3) 125 5,000 unit PO DAILY 05/05/2401/01 History mcg (5,000 unit) tablet (Vitamin D3) ferrous sulfate 325 mg (65 mg 325 mg PO DAILY 05/05/24 01/01/25 History iron) tablet (FeroSul) trifluoperazine 2 mg tablet 2 mg PO 0300 For nervous tics. 06/2101/01/25 History syringe with needle, safety 3 mL #50 ea 05/13/24 01/01/25 Rx 25 gauge x 1 amlodipine 5 mg tablet 5 mg PO DAILY 05/23/24 01/01/25 Hi story aspirin 81 mg tablet,delayed 81 mg PO 1400 05/23/24 01/01/25 Hi story release isosorbide mononitrate 60 mg 60 mg PO BID 09/05/24 01/01/25 His tory tablet,extended release 24 hr magnesium glycinate 100 mg (as 100 mg PO QHS 09/05/24 01/01/25 Hi story glycinate) tablet (Mag Glycinate) melatonin 10 mg capsule 10 mg PO QHS PRN sleep 09/05/24 History carvedilol 25 mg tablet 25 mg PO BID #180 tabs 10/23/24 Rx metformin 500 mg tablet,extended 1,000 mg (2 x 500 mg) PO BID #360 11/13/24 01/01/25 Rx release 24 hr tabs omeprazole 20 mg capsule,delayed 20 mg PO BID #180 caps 11/13/24 Rx release semaglutide 1 mg/dose (4 mg/3 mL) 1 mg (0.75 mL) subcut QWEEK #3 mL 12/09/24 01/01/25 Rx subcutaneous pen injector duloxetine 60 mg capsule,delayed 60 mg PO QDAY 01/01/25 01/01/25 Hi story release multivitamin 1 tab PO QDAY 01/01/25 01/01/25 Hi story quetiapine 25 mg tablet mg PO 01/01/25 01/01/25 History testosterone cypionate 200 mg/mL 100 mg (0.5 mL) IM Q2W #5 mL 01/02 Rx intramuscular oil [facility] Medical History (Updated 01/05/25 @ 08:[address] 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 History of non-ST elevation myocardial infarction (NSTEMI) (07/26/20) Essential hypertension Type 2 diabetes mellitus Nausea Fatigue Urinary hesitancy Liver disease Hypoglycemia Hyperlipemia Gout GERD (gastroesophageal reflux disease) Anxiety and depression Bone fracture Anemia History of alcohol abuse Schizoaffective disorder Surgical History History of cardiac catheterization History of cholecystectomy Hx of colonoscopy History of left heart catheterization (11/02/21) History of coronary artery stent placement (07/26/20) History of cataract surgery History of placement of ear tubes History of tonsillectomy History of amputation of finger Family History Other CVA (cerebral vascular accident) Cancer Depression with anxiety Diabetes FH: mental illness Hyperlipemia Hypertension Osteoporosis Social History Sm (more content not included)... Normal [facility] Cardiology Visit Reporton Cardiology Visit Report [facility] [address] [place] [address] OFFICE VISIT Date of Service: 11/25/24 MR#: [id number] Acct: [id number] Name: ALIX LEE Rep #: [id number] : 1960 Provider: Dr. Marck Orellana MD Age/Sex: 64/M Location[place] [facility] [place] Status: Signed HPI HPI History of Present Illness Details: This is a pleasant 64-year-old man who presents to the office today for a cardiovascular followup visit. He had presented in June 2020 with chest discomfort and radiation to his face. He was admitted for non-ST elevation myocardial infarction, underwent a cardiac catheterization which demonstrated single-vessel disease to the proximal left anterior descending artery. He did undergo angioplasty and stenting of this vessel with a 3.5 x 28 mm Synergy stent. He did fairly well after that and underwent a stress test in August 2020 where he exercised to a moderate metabolic workload of 6.4 metabolic equivalents with hypertensive response to exercise. He continued on the current medication. At that time he was noted to be on Brilinta which subsequently caused dyspnea and this was discontinued and he was switched to Effient. He did well in the interim and underwent a stress test in December 2020 which demonstrated no evidence of ischemia. ProBNP also performed at that time was noted to be normal. His echocardiogram had demonstrated preserved ejection fraction of 55 to 60%. His most recent cardiac catheterization from October of 2021 demonstrated previously placed stent in the left anterior descending artery is noted to be patent, and there is moderate disease noted in the right coronary artery and the circumflex artery but no high-grade stenosis noted. He underwent further evaluation with a polysomnogram that was positive for mild obstructive sleep apnea. He does state that treatment of such has improved his energy level. He has a history of hypertension, hyperlipidemia, obesity and diabetes mellitus. He has also recently been started on an antidepressant. He recently contacted office expressing concerns regarding ongoing palpitations. These are very infrequent episodes, but the frequency has been increasing. He describes this as skipping and fluttering. He denies chest, arm, jaw, or neck discomfort. He denies bilateral lower extremity edema. He acknowledges shortness of breath with activity such as going up steps. He denies shortness of breath at rest, orthopnea, cough, or PND. He acknowledges dizziness, nausea, and weakness. He denies fatigue. Intake Vital Signs 09/25/23 14:55 11/14/24 18:40 11/25/24 14:55 Height 6 ft 6 ft 1 in 6 ft 1 in Weight: 261 lb BMI 34.4 BP 121/79 H Blood Pressure Location Lt brachial Position Sitting Respiration 16 Pulse 76 Pulse Source Monitor Intake Visit Reasons: 1 Y FU 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 Accompanied by: Self Is patient in pain?: No Allergies Penicillins (PCN) Allergy (Verified 11/25/24 14:59) Other lisinopril Adverse Reaction (Verified 11/25/24 14:59) cough spironolactone Adverse Reaction (Verified 11/25/24 14:59) elevated blood sugar Medications ???Medication ???Instructions ???Recorded ???Confirmed ???Type needle (disp) 18 G 18 gauge x 1 #100 ea 05/22/22 10/14/24 Rx (BD Regular Bevel [place]) nitroglycerin 0.4 mg sublingual 0.4 mg sublingual Q5-15M PRN chest 01/11/24 11/25/24 Rx tablet (Nitrostat) pain #25 tabs flash glucose scanning reader #1 ea 02/05/24 10/14/24 Rx (FreeStyle Jean 2 [place]) flash glucose sensor (FreeStyle #1 ea 02/05/24 10/14/24 Rx Jean 2 Sensor kit) cholecalciferol (vitamin D3) 125 5,000 unit PO DAILY 05/05/24 11/25/24 History mcg (5,000 unit) tablet (Vitamin D3) coenzyme Q10 100 mg capsule 100 mg PO DAILY because I'm taking 05/05/24 11/25/24 History (CoQ-10) a statin ferrous sulfate 325 mg (65 mg 325 mg PO DAILY 05/05/24 11/25/24 History iron) tablet (FeroSul) trifluoperazine 2 mg tablet 2 mg PO 0300 For nervous tics. 05/05/24 11/25/24 History syringe with needle, safety 3 mL #50 ea 05/13/24 10/14/24 Rx 25 gauge x 1 amlodipine 5 mg tablet 5 mg PO DAILY 05/23/24 11/25/24 History aspirin 81 mg tablet,delayed 81 mg PO 1400 05/23/24 11/25/24 History release omega-3-epa 910 mg-fish oil 1,300 2 cap PO DAILY 05/23/24 11/25/24 History mg capsule,delayed release vitamin B complex 1 tab PO DAILY 05/23/24 11/25/24 History testosterone cypionate 200 mg/mL 100 mg (0.5 mL) IM Q2W #5 mL 06/09/24 11/25/24 Rx intramuscular oil semaglutide 0.25 mg or 0.5 mg (2 0.5 mg (0.736 mL) subcut QWEEK #3 08/25/24 11/25/24 Rx mg/3 mL) subcutaneous pen injector mL (Ozempic) isosorbide mononitrate 60 mg 60 mg PO BID 09/05/24 11/25/24 History tablet,extended release 24 hr magnesium glycinate 100 mg (more content not included)... Normal [facility] Absolute neutrophil countOrd ered By: Betty Aaron on 11-14-2024 Neutrophils (Bld) [#/Vol] 4.1 10*3/uL 2.0-7.7 [facility] Absolute neutrophil count 4.1 X10^3/uL 2.0-7.7 [facility] Basic Metabolic Profile (BMP )on 11-14-2024 BUN/CRE 19.1 RATIO Normal 10-20 [facility] Comment on above: Order Comment: 1 Y Performed By: #### L 500.2500, L501.5425, L100.0100 #### [facility] [address] [place], [address] CA,Total 9.6 mg/dL Normal 8.5-10.1 [facility] Comment on above: Order Comment: 1 Y Performed By: #### L 500.2500, L501.5425, L100.0100 #### [facility] [address] [place], [address] Chloride [Moles/Vol] 100 mmol/L Normal 98-107 [facility] Comment on above: Order Comment: 1 Y Performed By: #### L 500.2500, L501.5425, L100.0100 #### [facility] [address] [place], [address] CO2 [Moles/Vol] 30.0 mmol/L Normal 21.0-32.0 [facility] Comment on above: Order Comment: 1 Y Performed By: #### L 500.2500, L501.5425, L100.0100 #### [facility] [address] [place], [address] Creatinine [Mass/Vol] 0.84 mg/dL Normal 0.70-1.30 [facility] Comment on above: Order Comment: 1 Y Result Comment: The validity of the calculated GFR GFRAA in patients over 70 years has not been determined. Clinical correlation is essential. Performed By: #### L 500.2500, L501.5425, L100.0100 #### [facility] [address] [place], [address] EST GFR - AA 119 mL/min Normal >60 [facility] Comment on above: Order Comment: 1 Y Result Comment: Afri can [place] GFR Calc Performed By: #### L 500.2500, L501.5425, L100.0100 #### [facility] [address] [place], [address] GAP 4 Low 5-15 [facility] Comment on above: Order Comment: 1 Y Performed By: #### L 500.2500, L501.5425, L100.0100 #### [facility] [address] [place], [address] GFR/1.73 sq M.predicted among non-blacks MDRD (S/P/Bld) [Vol rate/Area] 98 mL/min/{1.73_m2} Normal >60 [facility] Comment on above: Order Comment: 1 Y Result Comment: Non- GFR Calc Performed By: #### L 500.2500, L501.5425, L100.0100 #### [facility] [address] [place], [address] Glucose [Mass/Vol] 170 mg/dL High 74-106 [facility] Comment on above: Order Comment: 1 Y Result Comment: Fast ing Glucose result greater than or equal to 126 mg/dL suggests DIABETES MELLITUS per A.D.A. criteria. Performed By: #### L 500.2500, L501.5425, L100.0100 #### [facility] [address] [place], [address] Potassium [Moles/Vol] 3.5 mmol/L Normal 3.5-5.1 [facility] Comment on above: Order Comment: 1 Y Performed By: #### L 500.2500, L501.5425, L100.0100 #### [facility] [address] [place], [address] Sodium [Moles/Vol] 134 mmol/L Low 136-145 [facility] Comment on above: Order Comment: 1 Y Performed By: #### L 500.2500, L501.5425, L100.0100 #### [facility] [address] [place], [address] Urea nitrogen [Mass/Vol] 16 mg/dL Normal 7-18 [facility] Comment on above: Order Comment: 1 Y Performed By: #### L 500.2500, L501.5425, L100.0100 #### [facility] [address] [place], [address] Basophil percentageOrdered B y: Betty Aaron on 11-14-2024 Basophils/100 WBC (Bld) 0.8 % 0-1 [facility] Basophil percentage 0.8 % 0-1 [facility] Blood urea nitrogen (BUN)/cr eatinine ratioOrdered By: Betty Aaron on 11-14-2024 Urea nitrogen/Creatinine [Mass ratio] 19.1 mg/mg 10- [facility] Blood urea nitrogen (BUN)/creatinine ratio 19.1 RATIO - [facility] CBC W/Diff, Automatedon 10-29 Absolute Lymph 1.35 X10 3/uL Normal 0.83-4.51 [facility] Comment on above: Performed By: #### L 500.2500, L501.5425, L100.0100 #### [facility] [address] [place], [address] Absolute Neut 4.1 X10 3/uL Normal 2.0-7.7 [facility] Comment on above: Performed By: #### L 500.2500, L501.5425, L100.0100 #### [facility] [address] [place], [address] Basophils/100 WBC (Bld) 0.8 % Normal 0-1 [facility] Comment on above: Performed By: #### L 500.2500, L501.5425, L100.0100 #### [facility] [address] [place], [address] Eosinophils/100 WBC (Bld) 3.7 % Normal 0-5 [facility] Comment on above: Performed By: #### L 500.2500, L501.5425, L100.0100 #### [facility] [address] [place], [address] Erythrocyte distribution width (RBC) [Ratio] 13.7 % Normal 11.6-14.6 [facility] Comment on above: Performed By: #### L 500.2500, L501.5425, L100.0100 #### [facility] [address] [place], [address] Hematocrit (Bld) [Volume fraction] 38.5 % Low 40-54 [facility] Comment on above: Performed By: #### L 500.2500, L501.5425, L100.0100 #### [facility] [address] [place], [address] Hemoglobin (Bld) [Mass/Vol] 13.6 g/dL Normal 13.0-16.5 [facility] Comment on above: Performed By: #### L 500.2500, L501.5425, L100.0100 #### [facility] [address] [place], [address] IG% 0.600 Normal 0.0-0.9 [facility] Comment on above: Result Comment: IG% - Immature Granulocytes (promyelocytes, myelocytes and metamyelocytes) > 1% indicates that a LEFT SHIFT is Present. Performed By: #### L 500.2500, L501.5425, L100.0100 #### [facility] [address] [place], [address] Lymphocytes/100 WBC (Bld) 21.4 % Normal 19-41 [facility] Comment on above: Performed By: #### L 500.2500, L501.5425, L100.0100 #### [facility] [address] [place], [address] MCH (RBC) [Entitic mass] 31.3 pg Normal 27.0-32.0 [facility] Comment on above: Performed By: #### L 500.2500, L501.5425, L100.0100 #### [facility] [address] [place], [address] MCHC (RBC) [Mass/Vol] 35.3 g/dL Normal 32-36 [facility] Comment on above: Performed By: #### L 500.2500, L501.5425, L100.0100 #### [facility] [address] [place], [address] MCV (RBC) [Entitic vol] 88.5 fL Normal 80-94 [facility] Comment on above: Performed By: #### L 500.2500, L501.5425, L100.0100 #### [facility] [address] [place], [address] Monocytes/100 WBC (Bld) 8.6 % Normal 0-10 [facility] Comment on above: Performed By: #### L 500.2500, L501.5425, L100.0100 #### [facility] [address] [place], [address] Neutrophils/100 WBC (Bld) 64.9 % Normal 47-70 [facility] Comment on above: Performed By: #### L 500.2500, L501.5425, L100.0100 #### [facility] [address] [place], [address] Nucleated RBC (Bld) [#/Vol] 0 10*3/uL Normal 0-5 [facility] Comment on above: Performed By: #### L 500.2500, L501.5425, L100.0100 #### [facility] [address] [place], [address] Platelet mean volume (Bld) [Entitic vol] 9.6 fL Normal 6.2-12.0 [facility] Comment on above: Performed By: #### L 500.2500, L501.5425, L100.0100 #### [facility] [address] [place], [address] Platelets (Bld) [#/Vol] 219 10*3/uL Normal 150-450 [facility] Comment on above: Performed By: #### L 500.2500, L501.5425, L100.0100 #### [facility] [address] [place], [address] RBC (Bld) [#/Vol] 4.35 10*6/uL Low 4.6-6.2 [facility] Comment on above: Performed By: #### L 500.2500, L501.5425, L100.0100 #### [facility] [address] [place], [address] RDW SD 43.7 fl Normal 35.1-43.9 [facility] Comment on above: Performed By: #### L 500.2500, L501.5425, L100.0100 #### [facility] [address] [place], [address] WBC (Bld) [#/Vol] 6.3 10*3/uL Normal 4.4-11.0 [facility] Comment on above: Performed By: #### L 500.2500, L501.5425, L100.0100 #### [facility] [address] [place], [address] Calcium [Mass/Vol]Ordered By : Betty Aaron on 11-14-2024 Serum or plasma calcium measurement (mass/volume) 9.6 mg/dL 8.5-10.1 [facility] Carbon dioxide measurementOr dered By: Betty Aaron on 11-14-2024 CO2 [Moles/Vol] 30.0 mmol/L 21.0-32.0 [facility] Carbon dioxide measurement 30.0 mmol/L 21.0-32.0 [facility] Chest 1 View (Portable)on Chest 1 View (Portable) [facility] Imaging Services [address] [place] [address] Chest 1 View (Portable) MR#: [id number] Acct: [id number] Name: ALIX LEE Rep #: [id number] : 1960 M 64 From: Juan Jean MD PCP: Dr. Pietro Turner MD Status: REG ER Study: Chest 1 View (Portable) Date of Exam: 11/14/24 Exam# [id number] Ordering Dr: Betty Aaron [id number] STUDY: X-RAY CHEST REASON FOR EXAM: Male, 64 years old. chest pain TECHNIQUE: AP portable COMPARISON: February 19, 2024. FINDINGS: The lungs are clear and expanded. There is no demonstrated pleural abnormality. Normal size heart. Normal mediastinum and janey. Normal visualized pulmonary arteries. Normal visualized aortic arch and descending thoracic aorta. Dorsal spine demonstrates degenerative changes. Normal visualized ribs, clavicles, and shoulders. There is no demonstrated abnormality of the visualized soft tissue structures of the upper abdomen. RAD/Chest 1 View (Portable) IMPRESSION: No acute cardiopulmonary pathology. Electronically Signed: Juan Jean MD at 20:29 EST Reading Location ID and State: [facility] / [place] Tel , Service support , CC: Dr. Pietro Turner MD; JAME Morgan Client Service Consultant: Signed Normal [facility] Chloride measurementOrdered By: Betty Aaron on 11-14-2024 Chloride [Moles/Vol] 100 mmol/L 98-107 [facility] Chloride measurement 100 mmol/L 98-107 [facility] Creatinine [Mass/Vol]Ordered By: Betty Aaron on 11-14-2024 Serum or plasma creatinine measurement (mass/volume) 0.84 mg/dL 0.70-1.30 [facility] Emergency Department Summary on 11-14-2024 Emergency Department Summary [facility] Medical Records Department [address] [place] [address] Emergency Department Summary 11/14/24 MR#: [id number] Acct: [id number] Name: ALIX LEE Rep #: [id number] : 1960 64 From: Betty KILGORE PCP: Dr. Pietro Turner MD Status:DEP ER Location: ED Patient was seen and examined with physician temporary administrative assistant Betty All components of the history and physical confirmed and agreed. History of present illness and physical exam: Patient is a 64-year-old male with past medical history of hypertension, hyperlipidemia, diabetes, GERD who presented to the emergency department chief complaint chest pain. Patient states that his pain started around 530 this evening was in the middle of his chest did not radiate anywhere. He states that he took 3 nitroglycerin and his pain resolved around 6 PM. He states that he has been asymptomatic since then. He states that he had a stress test about a year ago. He did note that he had a previous IA back in 2019 with 1 stent placed in the LAD at [place]. He states that he follows with Dr. Bishop and states that things been going well. Patient presents with Review of systems: Agree with above Physical exam: Agree with above MDM Patient is a 64-year-old male who presented to the emergency department with a chief complaint of chest pain as noted above. On the differential diagnose includes Melamin to ACS, costochondritis, pneumonia, hypertensive emergency. Once workup is obtained reviewed he will be reevaluated. Patient CBC reviewed and showed no evidence leukocytosis white blood count normal at 6.3, he was 13.6, platelet count normal at 319. Patient sodium was 134, potassium normal 3.5, creatinine was normal at 0.84. Patient's troponin was less than 3 and a delta troponin obtained was less than 3 as well. Patient's chest x-ray reviewed by myself and by radiology showed no acute cardiopulmonary processes. Patient's EKG reviewed and independently interpreted by myself showed sinus rhythm with a rate of 75 bpm. Previous records from the echocardiogram of 10/27/2024 was reviewed that showed ejection fraction of 55% no valvular abnormalities. Patient did have a Holter monitor for 14 days from 09/11/2024 to 09/24/2024 that showed sinus rhythm with first-degree AV block no events noted. Betty did discuss case with on-call container washer as noted in her note and they believe that he can be discharged home with follow-up in the outpatient setting. I did discuss this plan with the patient he is agreeable with this plan as well as significant other at bedside all question concerns answered he is discharged home in stable condition. Final impression: Chest pain Disposition: Patient will be discharged home in stable condition Supervising attending attestation: Lamberto Desai D.O. [facility] History of Present Illness Chief Complaint: Chest Pain Narrative Narrative: 64-year-old male with PMH of HTN, HLD, DM2, GERD presents with midsternal chest pressure that started while sitting at 5:30 PM. He states he was writhing in pain. There was no radiation. He had nausea but no vomiting. No real shortness of breath. He took 3 nitro and the pain resolved by 6 PM. He has been asymptomatic since then. He states an hour prior to symptom onset he had cottage cheese. He had an IA in 2019 with 1 stent placed in the LAD at [place]. He follows with Dr. Orellana and states he has had a normal stress test since then. He denies recent exertional chest pain or dyspnea. He has been very fatigued lately. No fever chills or cough. 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 Normal [facility] Eosinophil percentageOrdered By: Betty Aaron on 11-14-2024 Eosinophils/100 WBC (Bld) 3.7 % 0-5 [facility] Eosinophil percentage 3.7 % 0-5 [facility] Erythrocyte distribution wid th (RBC) [Ratio]Ordered By: Betty Aaron on 11-14-2024 Erythrocyte distribution width ratio 13.7 % 11.6-14.6 [facility] Erythrocyte distribution width (RBC) [Entitic vol] 43.7 fL 35.1-43.9 [facility] Erythrocyte distribution width standard deviation 43.7 fl 35.1-43.9 [facility] Erythrocyte distribution wid th ratioOrdered By: eBtty Aaron on 11-14-2024 Erythrocyte distribution width (RBC) [Ratio] 13.7 % 11.6-14.6 [facility] Estimated glomerular filtrat ion rate (GFR) AmericanOrdered By: Betty Aaron on 11-14-2024 Estimated GFR (MDRD) Amer 119 mL/min >60 [facility] Comment on above: GFR Calc Estimated glomerular filtration rate (GFR) 119 mL/min >60 [facility] Glomerular filtration rate ( GFR) estimationOrdered By: Betty Aaron on 11-14-2024 Estimated GFR (MDRD) Non-Af Amer 98 mL/min >60 [facility] Comment on above: Non- GFR Calc Glomerular filtration rate (GFR) estimation 98 mL/min >60 [facility] Glucose measurementOrdered B y: Betty Woodssydney on 11-14-2024 Glucose [Mass/Vol] 170 mg/dL High 74-106 [facility] Comment on above: Fasting Glucose resu lt greater than or equal to 126 mg/dL suggests DIABETES MELLITUS per A.D.A. criteria. Glucose measurement 170 mg/dL High 74-106 [facility] Hematocrit Auto (Bld) [Volum e fraction]Ordered By: Betty Agnieszka on 11-14-2024 Hematocrit (Bld) [Volume fraction] 38.5 % Low 40-54 [facility] Automated blood hematocrit (percentage) 38.5 % Low 40-54 [facility] Hemoglobin measurementOrdere d By: Betty Agnieszka on 11-14-2024 Hemoglobin (Bld) [Mass/Vol] 13.6 g/dL 13.0-16.5 [facility] Hemoglobin measurement 13.6 g/dL 13.0-16.5 [facility] Immature granulocytes/100 WB C Auto (Bld)Ordered By: Betty Aaron on 11-14-2024 Immature granulocytes/100 WBC (Bld) 0.600 % 0.0-0.9 [facility] Comment on above: IG% - Immature Granu locytes (promyelocytes, myelocytes and metamyelocytes) > 1% indicates that a LEFT SHIFT is Present. Automated immature granulocyte percentage 0.600 % 0.0-0.9 [facility] L501.4020on 11-14-2024 TROPONIN-I HS < 3 Low 3.0-78.0 [facility] Comment on above: Result Comment: Nelson killian Note: New Test Units and Gender Specific Reference Ranges. For more information see Policy Stat Procedure [place] High Sensitivity Troponin (TNIH) and attachments. Performed By: #### L 502.0500, L500.4050, L501.9985, L3100.5310 #### [facility] [address] [place], [address] L501.5425on 11-14-2024 TROPONIN-I HS < 3 Low 3.0-78.0 [facility] Comment on above: Order Comment: 1 Y Result Comment: Nelson killian Note: New Test Units and Gender Specific Reference Ranges. For more information see Policy Stat Procedure [place] High Sensitivity Troponin (TNIH) and attachments. Performed By: #### L 500.2500, L501.5425, L100.0100 #### [facility] [address] [place], [address] Lymphocytes Auto (Unsp spec) [#/Vol]Ordered By: Betty Aaron on 11-14-2024 Lymphocytes (Bld) [#/Vol] 1.35 10*3/uL 0.83-4.51 [facility] Absolute lymphocyte count 1.35 X10^3/uL 0.83-4.51 [facility] Lymphocytes/100 WBC Auto (Un sp spec)Ordered By: Betty Aaron on 11-14-2024 Lymphocytes/100 WBC (Bld) 21.4 % [facility] Automated lymphocyte count as percentage of total leukocytes 21.4 % [facility] MCV (RBC) [Entitic vol]Order ed By: Betty Aaron on 11-14-2024 MCV (mean corpuscular volume) determination 88.5 fL 80-94 [facility] MCV (mean corpuscular volume ) determinationOrdered By: Betty Aaron on 11-14-2024 MCV (RBC) [Entitic vol] 88.5 fL 80-94 [facility] Mean corpuscular hemoglobin (MCH) determinationOrdered By: Betty Aaron on 11-14-2024 MCH (RBC) [Entitic mass] 31.3 pg 27.0-32.0 [facility] Mean corpuscular hemoglobin (MCH) determination 31.3 pg 27.0-32.0 [facility] Mean corpuscular hemoglobin concentration (MCHC) determinationOrdered By: Betty Aaron on 11-14-2024 MCHC (RBC) [Mass/Vol] 35.3 g/dL -36 [facility] Mean corpuscular hemoglobin concentration (MCHC) determination 35.3 g/dL -36 [facility] Mean platelet volume determi nationOrdered By: Betty Aaron on 11-14-2024 Platelet mean volume (Bld) [Entitic vol] 9.6 fL 6.2-12.0 [facility] Mean platelet volume determination 9.6 fl 6.2-12.0 [facility] Monocyte percentageOrdered B y: Betty Aaron on 11-14-2024 Monocytes/100 WBC (Bld) 8.6 % 0-10 [facility] Monocyte percentage 8.6 % 0-10 [facility] Neutrophil percentageOrdered By: Betty Aaron on 11-14-2024 Neutrophils/100 WBC (Bld) 64.9 % 47-70 [facility] Neutrophil percentage 64.9 % 47-70 [facility] Nucleated red blood cell per centageOrdered By: Betty Aaron on 11-14-2024 Nucleated RBC/100 WBC (Bld) [Ratio] 0 % 0-5 [facility] Nucleated red blood cell percentage 0 % 0-5 [facility] Platelet countOrdered By: Patricia Aaron on 11-14-2024 Platelets (Bld) [#/Vol] 219 10*3/uL 150-450 [facility] Platelet count 219 K/mm3 150-450 [facility] Potassium measurementOrdered By: Betty Aaron on 11-14-2024 Potassium [Moles/Vol] 3.5 mmol/L 3.5-5.1 [facility] Potassium measurement 3.5 mmol/L 3.5-5.1 [facility] RBC Auto (Bld) [#/Vol]Ordere d By: Betty Aaron on 11-14-2024 RBC (Bld) [#/Vol] 4.35 10*6/uL Low 4.6-6.2 [facility] Automated blood erythrocyte count 4.35 M/mm3 Low 4.6-6.2 [facility] Serum anion gap measurementO rdered By: Betty Aaron on 11-14-2024 Anion gap [Moles/Vol] 4 mmol/L Low 5-15 [facility] Serum anion gap measurement 4 Low 5-15 [facility] Serum or plasma calcium michelle urement (mass/volume)Ordered By: Betty Aaron on 11-14-2024 Calcium [Mass/Vol] 9.6 mg/dL 8.5-10.1 [facility] Serum or plasma creatinine m easurement (mass/volume)Ordered By: Betty Aaron on 11-14-2024 Creatinine [Mass/Vol] 0.84 mg/dL 0.70-1.30 [facility] Comment on above: The validity of the calculated GFR & GFRAA in patients over 70 years has not been determined. Clinical correlation is essential. Serum or plasma urea nitroge n measurement (mass/volume)Ordered By: Betty Aaron on 11-14-2024 Urea nitrogen [Mass/Vol] 16 mg/dL 05-15 [facility] Sodium levelOrdered By: Betty Aaron on 11-14-2024 Sodium [Moles/Vol] 134 mmol/L Low 136-145 [facility] Sodium level 134 mmol/L Low 136-145 [facility] Troponin IOrdered By: Betty jorge on 11-14-2024 Troponin I High Sensitivity < 3 pg/mL Low 3.0-78.0 [facility] Comment on above: Please Note: New Ángela t Units and Gender Specific Reference Ranges. For more information see Policy Stat Procedure [place] High Sensitivity Troponin (TNIH) and attachments. Troponin I < 3 pg/mL Low 3.0-78.0 [facility] Urea nitrogen [Mass/Vol]Orde red By: Betty Aaron on 11-14-2024 Serum or plasma urea nitrogen measurement (mass/volume) 16 mg/dL 05-15 [facility] White blood cell (WBC) count Ordered By: Betty Aaron on 11-14-2024 WBC (Bld) [#/Vol] 6.3 10*3/uL 4.4-11.0 [facility] White blood cell (WBC) count 6.3 K/mm3 4.4-11.0 [facility] Urgent Care Visit Reporton 0 11-13-2024 Urgent Care Visit Report [facility] [address] , [address] [place] [address] OFFICE VISIT Date of Service: 11/13/24 MR#: [id number] Acct: [id number] Name: ALIX LEE Rep #: [id number] : 1960 Provider: JAME Mcgrath Age/Sex: 64/M Location: [facility] Status: Signed Intake Vital Signs 10/14/24 13:35 10/16/24 15:52 11/07/24 06:50 11/13/24 15:05 Height 6 ft 1 in 6 ft 1 in 6 ft 1 in BP 138/70 H Blood Pressure Location Lt brachial Position Sitting Respiration 16 Pulse 73 Pulse Source NIBP Temp 97.4 F L Temp Source Oral Pulse Oximetry (%) 98 Oxygen Delivery Method room air Intake Visit Reasons: R [employer]/ [employer] Chief Complaint: WC f/u right elbow 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 Is patient in pain?: No Allergies Penicillins (PCN) Allergy (Verified 11/13/24 15:06) Other lisinopril Adverse Reaction (Verified 11/13/24 15:06) cough spironolactone Adverse Reaction (Verified 11/13/24 15:06) elevated blood sugar PFSH Medical History Alcohol use Bruising High cholesterol Gastric reflux History of Holter monitoring History of echocardiogram Nausea vomiting Colon cancer screening Wears hearing aid Wears glasses Schizophrenia Anxiety Diabetes Low iron Fatty liver Restless legs Back pain Tic disorder History of diverticulitis Former smoker History of stress test Cardiology follow-up encounter Hypertension Cholelithiasis History of sarcoidosis Depression Pancreatitis 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 History of non-ST elevation myocardial infarction (NSTEMI) (07/26/20) Essential hypertension Type 2 diabetes mellitus Nausea Fatigue Urinary hesitancy Liver disease Hypoglycemia Hyperlipemia Gout GERD (gastroesophageal reflux disease) Anxiety and depression Bone fracture Anemia History of alcohol abuse Schizoaffective disorder Surgical History History of cardiac catheterization History of cholecystectomy Hx of colonoscopy History of left heart catheterization (11/02/21) History of coronary artery stent placement (07/26/20) History of cataract surgery History of placement of ear tubes History of tonsillectomy History of amputation of finger Family History Other CVA (cerebral vascular accident) Cancer Depression with anxiety Diabetes FH: mental illness Hyperlipemia Hypertension Osteoporosis Social History Smoking Status: Former smoker quit date: 10/29/05 Tobacco: How many years used: 15 alcohol intake: former year quit: 2014 substance use type: does not use caffeine: Yes Type: carbonated beverages and coffee what type of physical activity do you participate in: walking [facility] HPI Chief Complaint: WC f/u right elbow Details: ALIX LEE, is a 64 M who presents to the office today for follow-up of a right elbow tendinitis. Since the last visit here patient did start occupational therapy and then canceled all of her sessions. He states that most of his right elbow discomfort has resolved however now he has right shoulder pains from time to time. He denies numbness, tingling or loss of range of motion. No previous injuries to the right shoulder. No other associated symptoms or alleviating/aggravating factors. ROS Const Constitutional: No other (6 system ROS completed with pertinent findings in the HPI otherwise normal.) Exam Const General: cooperative and healthy appearing Skin General: no rashes or lesions noted Neuro General: patient alert Extrem General: full ROM and capillary refill normal Psych Appearance: grossly normal Mental Status: mental status grossly normal Coding Level of Care Code Off vis,est,level 3 Diagnoses Right elbow tendinitis M77.8 Assessment and Plan Assessment and Plan (1) Right elbow tendinitis: Status: Acute Plan [employer] 14 filled out releasing patient back to work today without restrictions. Patient advised to continue with at home stretching and exercising and advised to follow-up with his PCP for further evaluation of the right shoulder discomfort. Patient verbalized understanding and agreement with all the above. 11/13/24 1607 Date Solitario Garsia Signature: Date (if applicable) CC: Normal [facility] Bedside Glucoseon 11-07-2024 FINGERSTICK GLU 134 mg/dL High 74-106 [facility] Comment on above: Result Comment: NILSON CHRISTENSEN OF PATIENT CARE PER NURSING PROTOCOL Performed By: #### L 502.0500, L500.4050, L501.9985, L3100.5310 #### [facility] [address] [place], [address] Colonoscopy Reporton 025 Colonoscopy Report [facility] Medical Records Department [address] [place] [address] Colonoscopy Report MR#: [id number] Acct: [id number] Name: ALIX LEE Rep #: [id number] : 1960 64 From: Dimitry Camp MD PCP: Dr. Pietro Turner MD Status:[facility] Patient Name: Alix Lee Procedure Date: 11/07/2024 7:39 AM Date of : 1960 Age: 64 Procedure: Colonoscopy Indications: Screening for colorectal malignant neoplasm Providers: Dimitry Camp MD Referring MD: Pietro Turner Medicines: Propofol per Anesthesia Patient Profile: This is a 64 year old male. Refer to note in patient chart for documentation of history and physical. Last Colonoscopy: more than 10 years ago. Complications: No immediate complications. Procedure: Pre-Anesthesia Assessment: - Prior to the procedure, a History and Physical was performed, and patient medications and allergies were reviewed. The patient's tolerance of previous anesthesia was also reviewed. The risks and benefits of the procedure and the sedation options and risks were discussed with the patient. All questions were answered, and informed consent was obtained. Prior Anticoagulants: The patient has taken no anticoagulant or antiplatelet agents. After reviewing the risks and benefits, the patient was deemed in satisfactory condition to undergo the procedure. After I obtained informed consent, the scope was passed under direct vision. Throughout the procedure, the patient's blood pressure, pulse, and oxygen saturations were monitored continuously. The pediatric colonoscope was introduced through the anus and advanced to the terminal ileum, with identification of the appendiceal orifice and IC valve. The colonoscopy was performed without difficulty. The patient tolerated the procedure well. The quality of the bowel preparation was good. The ileocecal valve, appendiceal orifice, and rectum were photographed. Scope In: 7:50:47 AM Scope Withdrawal Time 0 hours 6 minutes 55 seconds Scope Out: 8:02:34 AM Total Procedure Duration Time 0 hours 11 minutes 47 seconds Findings: The entire examined colon appeared normal on direct and retroflexion views. Impression: - The entire examined colon is normal on direct and retroflexion views. - No specimens collected. Recommendation: - Discharge patient to home. - Resume previous diet. - Continue present medications. - Repeat colonoscopy in 10 years for screening purposes. Procedure Code(s): --- Professional --- 62509, Colonoscopy, flexible; diagnostic, including collection of specimen(s) by brushing or washing, when performed (separate procedure) Diagnosis Code(s): --- Professional --- Z12.11, Encounter for screening for malignant neoplasm of colon CPT copyright 2021 [employer]. All rights reserved. The codes documented in this report are preliminary and upon reticle printer review may be revised to meet current compliance requirements. Dimitry Camp MD 11/07/2024 8:12:37 AM This report has been signed electronically. Number of Addenda: 0 Note Initiated On: 11/07/2024 7:39 AM 11/07/24 0812 Date Dimitry Camp MD Cosigner Signature: Date (if indicated) CC: Dr. Dimitry Camp MD; Dr. Pietro Turner MD Date Dictated: 11/07/24 0739 Date Transcribed: Client Service Consultant: SANDI Signed Normal [facility] Glucose measurement at bedsi deOrdered By: Dimitry Camp on 11-07-2024 Bedside Glucose (Misc Panel) 134 mg/dL High 74-106 [facility] Comment on above: MANAGEMENT OF PATIEN T CARE PER NURSING PROTOCOL Glucose measurement at bedside 134 mg/dL High 74-106 [facility] MR/POSTOP.ANEon 11-07-2024 MR/POSTOP.ANE [facility] Medical Records Department [address] [place] [address] Anesthesia Postop Eval I 11/07/24 0811 MR#: [id number] Acct: [id number] Name: ALIX LEE Rep #: [id number] : 1960 64 From: Raudel Desai PCP: Dr. Pietro Turner MD Status:[facility] Y Race: C Location: [place] [address] Anesthesia: Postop Eval I Current Vital Signs Temperature: 97.8 F Pulse Rate: 61 Blood Pressure: 140/117 Respiratory Rate: 16 Pulse Ox: 97 Oxygen Delivery Method: Room Air Assessment Airway patent: Yes Spontaneous unlabored respirations: Yes Mental status: Asleep nausea: No Vomiting: No Anesthesia Complication: No Fluid Hydration Crystalloid volume administer (ml): 30 Total IV fluid infused: 30 Progress Note Anesthesia document: Postop Eval 1 completed: Yes 11/07/24811 Date Raudel Garsia Signature: Date CC: Signed Normal [facility] [id number] 11-07-2024 MR/POSTOPAN2 [facility] Medical Records Department [address] [place] [address] Anesthesia Postop Eval II 11/07/24 0850 MR#: [id number] Acct: [id number] Name: ALIX LEE Rep #: [id number] : 1960 64 From: Maye Qureshi PCP: Dr. Pietro Turner MD Status:[facility] Y Race: C Location: [place] Anesthesia Postop Eval I Sum Postop Eval Completion status Anesthesia document: Postop Eval 1 completed: Yes Anesthesia Postop Eval I Summary Anesthesia Postop Eval I Summary: Anesthesia Postop Eval I: Assessment Summary Airway patent Yes 11/07/24 08:12 [email or web address] Spontaneous unlabored Yes 11/07/24 08:12 [email or web address] respirations Mental status Asleep 11/07/24 08:12 [email or web address] nausea No 11/07/24 08:12 [email or web address] Vomiting No 11/07/24 08:12 [email or web address] Anesthesia Postop Eval I: Fluid Summary Crystalloid volume administer 30 11/07/24 08:12 [email or web address] (ml) Colloids volume administered ( ml) Blood Product volume administered (ml) Total IV fluid infused 30 11/07/24 08:12 [email or web address] Anesthesia Postop Eval I: Summary Notes Anesthesia Complication No 11/07/24 08:12 [email or web address] Anesthesia Complication Comment: Post-operative progress note Anesthesia: Postop Eval II Evaluation Mental status: Awake Pain Level: 0 nausea: No Vomiting: No 11/07/24927 Date Maye Garsia Signature: Date CC: Signed [facility] MR/PATJodi 11-06-2024 MR/PAT.BRITTANEY [facility] Medical Records Department [address] [place] [address] PAT - Anesthesia 11/06/24 1038 MR#: [id number] Acct: [id number] Name: ALIX LEE Rep #: [id number] : 1960 64 From: Srinivasan Jara MD PCP: Dr. Pietro Turner MD Status:PRE [facility] [place] Race: C Location: EN Pre-Assessment Diagnosis/Proposed Procedure Planned Operative Procedure(s): COLONOSCOPY Anesthesia History Anesthesia History - station attendant: Anesthesia History - station attendant Hx Hospitalization No 11/06/24 09:54 Any Problems With Anesthesia No 11/06/24 09:54 Cholinesterase deficiency No 11/06/24 09:54 You/Your Family Experience No 11/06/24 09:54 fever (hyperthermia) with Relationship Recent Exposure to Contagious No 09/26/24 08:31 Disease Does patient have nerve No 11/06/24 09:54 stimulator Patient instructed to have device shut off --Does patient have Pacemaker or ICD? When Was Last Pacemaker Check QUESTION #4 FULL TEXT: You/Your Family Experience fever (hyperthermia) with Anesthesia Last Oral Intake Last Oral intake: Last Oral Intake NPO since Meds taken in AM with sips of water? Meds patient instructed to take am of surgery PONV PONV - station attendant: PONV - station attendant Female No 11/06/24 09:54 HX of Motion Sickness No 11/06/24 09:54 HX of N/V After Surgery No 11/06/24 09:54 Non-Smoker Yes 11/06/24 09:54 Duration of Surgery greater No 11/06/24 09:54 than 60 minutes Number of Risk Factors 1 11/06/24 09:54 PONV Score Low Risk 11/06/24 09:54 Height Weight Height Weight: Anesthesia: Height Weight Height 6 ft 1 in 10/14/24 13:35 Respiratory Assessment Respiratory Assessment - station attendant: Respiratory Tract Infection Hx - station attendant Hx Respiratory Tract Infection No 11/06/24 09:54 STOP Sleep Apnea STOP Sleep Apnea - station attendant: STOP Sleep Apnea - station attendant Hx Hypertension Yes: CONTROLLED WITH MEDS 11/06/24 09:54 Hx Sleep Apnea No 11/06/24 09:54 CPAP BIPAP Do you snore loudly (louder No 11/06/24 09:54 than talking or can be heard Do you often feel tired/ No 11/06/24 09:54 fatigued/ sleepy during daytime? Has anyone observed you stop No 11/06/24 09:54 breathing during sleep? STOP Results Negative 11/06/24 09:54 QUESTION #5 FULL TEXT : Do you snore loudly (louder than talking or can be heard through closed doors)? Tobacco Use History Tobacco Use History - station attendant: Tobacco Use History - station attendant Tobacco Use Smoking Status Former smoker 11/06/24 09:54 Hx Tobacco Use No 11/06/24 09:54 Years Smoking Packs Smoked per Day Smoking Cessation Date was No - quit smoking greater 11/06/24 09:54 within the last 15 years than 15 years ago Hx Smoking Cessation Date 10/29/06 11/06/24 09:54 Hx Smoking Cessation No 11/06/24 09:54 Counseling Hematologic Medial History Hematologic Hx - station attendant: Hematologic Medical Hx - clinical services manager Hx of Blood Transfusion No 11/06/24 09:54 Hx of Transfusion in last 3 No 11/06/24 09:54 Months Date of Last Transfusion (if within last 3 months) Ever experience any problems No 11/06/24 09:54 with transfusion(s)? Specify any problems Hx of Preganancy in last 3 N/A 11/06/24 09:54 Months Nurse Filling Out Transfusion VLEHMAN 11/06/24 09:54 Questions: Date: 11/06/24 11/06/24 09:54 Time: 10:08 11/06/24 09:54 Patient unable to answer at this time (ie. confused, unrespo /Reproduction History /Reproductive History - station attendant: /Reproductive Hx- station attendant Hx Now Gestational Age (in weeks): EDC: Hx Hx Para Hx Section SAB No 09/26/24 08:31 PFSH Medical History (Updated 11/06/24 @ 10:06 by Zarina Stern) Alcohol use Bruising High cholesterol Gastric reflux History of Holter monitoring History of echocardiogram Nausea vomiting Colon cancer screening Wears hearing aid Wears glasses Schizophrenia Anxiety Diabetes Low iron Fatty liver Restless legs Back pain Tic disorder History of diverticulitis Former smoker History of stress test Cardiology follow-up encounter Hypertension Cholelithiasis History of sarcoidosis Depression Pancreatitis 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 [facility] [address] [place] [address] Echo Complete 10/27/24 1359 MR#: [id number] Acct: [id number] Name: ROSAALIXCHELSIE RODGERSLAS Rep #: [id number] : 1960 64 From: Marck Orellana MD Attending Dr: Jocelyne Dickey NP-C Status: REG CLI Ordering Dr: Jocelyne Dickey STORE PROMOTER STORE PROMOTER-C Date: 10/27/24 Location: [facility] Sex: M C Admitted: Version 2 Reason For Study: PALPS Procedure This was a 2D Doppler, Color Flow transthoracic echocardiogram. Exam performed in department. Left Ventricle Normal LV size. Mild concentric left ventricular hypertrophy. Left ventricular systolic function is normal. The left ventricular ejection fraction is 55 %. No regional wall motion abnormalities noted. Right Ventricle Normal RV size. Normal systolic function. Atria Normal left atrium. Normal right atrium. Mitral Valve There is moderate mitral annular calcification. Tricuspid Valve Normal tricuspid valve. Aortic Valve The aortic valve is not well visualized. Pulmonic Valve Normal pulmonic valve. Great Vessels Normal aortic root. The pulmonary artery is normal size. Inferior vena cava collapse with respiration. Pericardium/Pleural No pericardial effusion. MMode/2D Measurements Calculations LVIDd: 4.2 cm IVSd: 1.2 cm LVOT diam: 2.0 cm LVIDs: 2.9 cm LVPWd: 1.5 cm LVOT area: 3.1 cm2 FS: 31.9 % Ao root diam: 3.4 cm LAV(MOD-bp): 52.9 ml LVAd ap4: 32.6 cm2 LAV(MOD-bp) Indexed: 21.8 ml/m2 LVLd ap4: 8.5 cm LAV(MOD-sp2): 53.8 ml EDV(MOD-sp4): 108.3 ml LAV(MOD-sp4): 51.0 ml EDV(sp4-el): 105.9 ml LVAs ap4: 15.3 cm2 LVLs ap4: 6.9 cm ESV(MOD-sp4): 30.0 ml ESV(sp4-el): 28.9 ml EF(MOD-sp4): 72.3 % EF(sp4-el): 72.7 % SV(MOD-sp4): 78.3 ml SV(sp4-el): 77.0 ml LA A4 area: 17.8 cm2 SI(MOD-sp4): 32.3 ml/m2 LA dimension(2D): 4.1 cm RA A4 area: 10.4 cm2 Time Measurements MV dec time: 0.22 sec Doppler Measurements Calculations MV E max nash: 109.2 cm/sec Lat Peak E' Nash: 9.4 cm/sec Med Peak E' Nash: 8.1 cm/sec MV A max nash: 102.5 cm/sec E/E' lat: 11.6 E/E' med: 13.5 MV E/A: 1.1 MV V2 max: 109.0 cm/sec Ao V2 max: 127.6 cm/sec MV max P.8 mmHg MV dec slope: 506.2 cm/sec2 Ao max P.5 mmHg MV V2 mean: 74.2 cm/sec Ao V2 mean: 87.2 cm/sec MV mean P.4 mmHg Ao mean P.6 mmHg MV V2 VTI: 36.4 cm Ao V2 VTI: 28.9 cm AV (velocity ratio): 0.81 MVA(VTI): 2.0 cm2 CYNTHIA(I,D): 2.5 cm2 CYNTHIA(V,D): 2.7 cm2 LV V1 max: 113.6 cm/sec SV(LVOT): 71.8 ml PA V2 max: 93.4 cm/sec LV V1 max P.2 mmHg PA V2 mean: 68.6 cm/sec LV V1 mean P.7 mmHg LV V1 mean: 76.0 cm/sec LV V1 VTI: 23.4 cm ECHO/Echo Complete Interpretation Summary Normal LV size. Mild concentric left ventricular hypertrophy. Left ventricular systolic function is normal. The left ventricular ejection fraction is 55 %. Ordering Physician: Jocelyne Dickey Referring Physician: Jocelyne Dickey Performed By: Ting Raphael RCS 10/27/24 1637 Date Marck Orellana MD CC: MICHELLE Dickey; Dr. Pietro Turner MD Date Dictated: 10/27/24 1359 Date Transcribed: 10/27/24 1636 Client Service Consultant: Signed [facility] Urgent Care Visit Reporton 1 12-17-2023 Urgent Care Visit Report [facility] [address], [address] [place] [address] OFFICE VISIT Date of Service: 10/16/24 MR#: [id number] Acct: [id number] Name: ALIX LEE Rep #: [id number] : 1960 Provider: JAME Mcgrath Age/Sex: 64/M Location[facility] Status: Signed Intake Vital Signs 10/14/24 13:35 10/16/24 15:43 Height 6 ft 1 in Weight: 266 lb BMI 35.1 BP 128/74 H 132/82 H Blood Pressure Location Rt brachial Lt brachial Position Sitting Sitting Respiration 18 16 Pulse 80 75 Pulse Source Monitor NIBP Temp 98.2 F 98.0 F Temp Source Temporal Oral Pulse Oximetry (%) 99 98 Oxygen Delivery Method room air room air Intake Visit Reasons: R ELBOW 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 Chief Complaint: WC f/u right elbow 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 Is patient in pain?: No Allergies Penicillins (PCN) Allergy (Verified 10/16/24 15:44) Other lisinopril Adverse Reaction (Verified 10/16/24 15:44) cough spironolactone Adverse Reaction (Verified 10/16/24 15:44) elevated blood sugar Medications ???Medication ???Instructions ???Recorded ???Confirmed ???Type needle (disp) 18 G 18 gauge x 1 #100 ea 05/22/22 10/14/24 Rx (BD Regular Bevel [place]) nitroglycerin 0.4 mg sublingual 0.4 mg sublingual Q5-15M PRN chest 01/11/24 10/14/24 Rx tablet (Nitrostat) pain #25 tabs atorvastatin 40 mg tablet 40 mg PO QHS 90 days #90 tabs 01/14/24 10/14/24 Rx flash glucose scanning reader #1 ea 02/05/24 10/14/24 Rx (FreeStyle Jean 2 [place]) flash glucose sensor (FreeStyle #1 ea 02/05/24 10/14/24 Rx Jean 2 Sensor kit) cholecalciferol (vitamin D3) 125 5,000 unit PO DAILY 05/05/24 10/14/24 History mcg (5,000 unit) tablet (Vitamin D3) coenzyme Q10 100 mg capsule 100 mg PO DAILY because I'm taking 05/05/24 10/14/24 History (CoQ-10) a statin ferrous sulfate 325 mg (65 mg 325 mg PO DAILY 05/05/24 10/14/24 History iron) tablet (FeroSul) fluoxetine 40 mg capsule 80 mg PO 1400 05/05/24 10/14/24 History metformin 500 mg tablet,extended 1,000 mg PO BID 05/05/24 10/14/24 History release 24 hr trifluoperazine 2 mg tablet 2 mg PO 0300 For nervous tics. 05/05/24 10/14/24 History syringe with needle, safety 3 mL #50 ea 05/13/24 10/14/24 Rx 25 gauge x 1 amlodipine 5 mg tablet 5 mg PO 0400 05/23/24 10/14/24 History aspirin 81 mg tablet,delayed 81 mg PO 1400 05/23/24 10/14/24 History release carvedilol 25 mg tablet 25 mg PO 1400,0100 05/23/24 10/14/24 History omega-3-epa 910 mg-fish oil 1,300 2 cap PO DAILY 05/23/24 10/14/24 History mg capsule,delayed release vitamin B complex 1 tab PO DAILY 05/23/24 10/14/24 History testosterone cypionate 200 mg/mL 100 mg (0.5 mL) IM Q2W #5 mL 06/09/24 10/14/24 Rx intramuscular oil semaglutide 0.25 mg or 0.5 mg (2 0.5 mg (0.736 mL) subcut QWEEK #3 08/25/24 10/14/24 Rx mg/3 mL) subcutaneous pen injector mL (Ozempic) diazepam 5 mg tablet (Valium) 5 mg PO TID PRN dizziness or 08/31/24 10/14/24 Rx vertigo 5 days #15 tabs isosorbide mononitrate 60 mg 60 mg PO BID 09/05/24 10/14/24 History tablet,extended release 24 hr magnesium glycinate 100 mg (as 100 mg PO QHS 09/05/24 10/14/24 History glycinate) tablet (Mag Glycinate) melatonin 10 mg capsule 10 mg PO QHS PRN 09/05/24 10/14/24 History omeprazole 20 mg capsule,delayed 20 mg PO BID 09/05/24 10/14/24 History release Have you fallen in the past year?: No PFSH Medical History Nausea vomiting Colon cancer screening Cholelithiasis Wears hearing aid Wears glasses Schizophrenia Anxiety Diabetes Low iron Fatty liver Restless legs Back pain Tic disorder History of diverticulitis Former smoker History of stress test Cardiology follow-up encounter Hypertension History of sarcoidosis Depression Pancreatitis 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 History of non-ST elevation myocardial infarction (NSTEMI) (07/26/20) Essential hypertension Type 2 diabetes mellitus Nausea Fatigue Urinary hesitancy Liver disease Hypoglycemia Hyperlipemia Gout GERD (gastroesophageal reflux disease) Anxiety and depression Bone fracture Anemia History of alcohol abuse Schizoaffective disorder Surgical History History of cholecystectomy Hx of colonoscopy History of left heart catheterization (11/02/21) History of coronary artery stent placement (07/26/20) History of cataract surgery History of placement of ear tubes History of tonsillectomy History of amputation of finger Family History Other CVA (more content not included)... Normal [facility] Surgery Visit Reporton 10-14 Surgery Visit Report [facility] [address] [place] [address]. [address] [place] [address] OFFICE VISIT Date of Service: 10/14/24 MR#: [id number] Acct: [id number] Name: ALIX LEE Rep #: [id number] : 1960 Provider: Dr. Dimitry hernandez MD Age/Sex: 64/M Location: [facility] Status: Signed Intake Vital Signs 09/05/24 13:01 09/26/24 08:31 10/14/24 13:35 Height 6 ft 1 in 6 ft 1 in 6 ft 1 in Weight: 266 lb BMI 35.1 BP 128/74 H Blood Pressure Location Rt brachial Position Sitting Respiration 18 Pulse 80 Pulse Source Monitor Temp 98.2 F Temp Source Temporal Pulse Oximetry (%) 99 Oxygen Delivery Method room air Intake Visit Reasons: COLONOSCOPY Chief Complaint: colonoscopy Is patient in pain?: No Allergies Penicillins (PCN) Allergy (Verified 10/14/24 13:36) Other lisinopril Adverse Reaction (Verified 10/14/24 13:36) cough spironolactone Adverse Reaction (Verified 10/14/24 13:36) elevated blood sugar Medications ???Medication ???Instructions ???Recorded ???Confirmed ???Type needle (disp) 18 G 18 gauge x 1 #100 ea 05/22/22 10/14/24 Rx (BD Regular Bevel [place]) nitroglycerin 0.4 mg sublingual 0.4 mg sublingual Q5-15M PRN chest 01/11/24 10/14/24 Rx tablet (Nitrostat) pain #25 tabs atorvastatin 40 mg tablet 40 mg PO QHS 90 days #90 tabs 01/14/24 10/14/24 Rx flash glucose scanning reader #1 ea 02/05/24 10/14/24 Rx (FreeStyle Jean 2 [place]) flash glucose sensor (FreeStyle #1 ea 02/05/24 10/14/24 Rx Jean 2 Sensor kit) cholecalciferol (vitamin D3) 125 5,000 unit PO DAILY 05/05/24 10/14/24 History mcg (5,000 unit) tablet (Vitamin D3) coenzyme Q10 100 mg capsule 100 mg PO DAILY because I'm taking 05/05/24 10/14/24 History (CoQ-10) a statin ferrous sulfate 325 mg (65 mg 325 mg PO DAILY 05/05/24 10/14/24 History iron) tablet (FeroSul) fluoxetine 40 mg capsule 80 mg PO 1400 05/05/24 10/14/24 History metformin 500 mg tablet,extended 1,000 mg PO BID 05/05/24 10/14/24 History release 24 hr trifluoperazine 2 mg tablet 2 mg PO 0300 For nervous tics. 05/05/24 10/14/24 History syringe with needle, safety 3 mL #50 ea 05/13/24 10/14/24 Rx 25 gauge x 1 amlodipine 5 mg tablet 5 mg PO 0400 05/23/24 10/14/24 History aspirin 81 mg tablet,delayed 81 mg PO 1400 05/23/24 10/14/24 History release carvedilol 25 mg tablet 25 mg PO 1400,0100 05/23/24 10/14/24 History omega-3-epa 910 mg-fish oil 1,300 2 cap PO DAILY 05/23/24 10/14/24 History mg capsule,delayed release vitamin B complex 1 tab PO DAILY 05/23/24 10/14/24 History testosterone cypionate 200 mg/mL 100 mg (0.5 mL) IM Q2W #5 mL 06/09/24 10/14/24 Rx intramuscular oil semaglutide 0.25 mg or 0.5 mg (2 0.5 mg (0.736 mL) subcut QWEEK #3 08/25/24 10/14/24 Rx mg/3 mL) subcutaneous pen injector mL (Ozempic) diazepam 5 mg tablet (Valium) 5 mg PO TID PRN dizziness or 08/31/24 10/14/24 Rx vertigo 5 days #15 tabs isosorbide mononitrate 60 mg 60 mg PO BID 09/05/24 10/14/24 History tablet,extended release 24 hr magnesium glycinate 100 mg (as 100 mg PO QHS 09/05/24 10/14/24 History glycinate) tablet (Mag Glycinate) melatonin 10 mg capsule 10 mg PO QHS PRN 09/05/24 10/14/24 History omeprazole 20 mg capsule,delayed 20 mg PO BID 09/05/24 10/14/24 History release methylprednisolone 4 mg tablets in See Rx Instructions PO PER PKG DIR 09/27/24 10/14/24 Rx a dose pack (Medrol (Mark)) #21 tabs PFSH Medical History Nausea vomiting Colon cancer screening Cholelithiasis Wears hearing aid Wears glasses Schizophrenia Anxiety Diabetes Low iron Fatty liver Restless legs Back pain Tic disorder History of diverticulitis Former smoker History of stress test Cardiology follow-up encounter Hypertension History of sarcoidosis Depression Pancreatitis 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 History of non-ST elevation myocardial infarction (NSTEMI) (07/26/20) Essential hypertension Type 2 diabetes mellitus Nausea Fatigue Urinary hesitancy Liver disease Hypoglycemia Hyperlipemia Gout GERD (gastroesophageal reflux disease) Anxiety and depression Bone fracture Anemia History of alcohol abuse Schizoaffective disorder Surgical History History of cholecystectomy Hx of colonoscopy History of left heart catheterization (11/02/21) History of coronary artery stent placement (07/26/20) History of cataract surgery History of placement of ear tubes History of tonsillectomy History of amputation of finger Family History (Reviewed 10/14/24 @ (more content not included)... Normal [facility] OT General Evaluationon 09-28 OT General Evaluation [facility] Occupational Therapy [facility] [address] [place] [address] / REHABILITATION SERVICES INITIAL EVALUATION MR#: [id number] Acct: [id number] Name: ALIX LEE Rep #: [id number] : 1960 64 From: Manasa Castro Referring Dr.: JAME Mcgrath Status: REG [facility] Insurance: [id number] Date: SELF PAY INSURANCE Patient's Visit Information Visit Information Visit Information: ALIX LEE is a 64 year old M, referred to Occupational Therapy by JAME Mcgrath, with a diagnosis of R elbow tendinitis. Date of Evaluation: 10/08/24 Occupational Therapist: Manasa Castro Subjective Subjective: This 64 year old male arrives with dx of R elbow tendinopathy. Pain started after vacuuming at work per pt mid August which worsened with length of time. pt states pain progressively got worse. Pt took course of prednisone which ended approx 2-3 days ago which pt states significantly helped with pain. Pt has been taking ibuprofen as well as Tylenol as needed. Pt is R hand dominant. Has not yet tried bracing. pt is still working at this time working 5 hours a day M and Tu 5 hours wed 3 hours thurs and fri 5 hours. Pain R elbow: Current Pain Intensity: 2 Pain Intensity Range: 6 Objective Objective/Observation: pt arrives able to complete mobility back to OT section no bracing on typical arm swing with mobility does not gaured arm. 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 Edema Other: none Sensation Sensation Comments: denies Quick DASH-Disab of Arm,Shoulder Hand Quick DASH Score: 25.0000 Goals Goal:ROM equal to unaffected hand: Yes Goal:Rn Clinical/Pinch strength at least 75% of unaffected hand: Yes Goal:No pain with affected hand use: Yes Goal:Full use of affected hand in daily activities including work: Yes Other Goal: pt will improve forearm supination equal to non affected UE in order to return to PLOF Pt will improve quick dash score by 5 points or more in order to improve overall functional use of RUE pt will verbalize/ demonstrate 100% accuracy in proper bracing options for R elbow pain by third session Rehabilitation General Assessment: This 64 year old male arrives with dx of R elbow tendonitis. Pt presents with pain in R elbow radiating into tricep as well as extensor mech, limited ROM of R forearm as well as decreased strength in stress position. Pt would benefit from OT services 3x a week for 4-6 weeks in order to decrease pain, improve ROM, improve strength, provide ed and training in joint positioning and protection as well as assure proper brace wear for return to PLOF. Rehabilitation Potential: Good Anticipated Interventions Anticipated Interventions: A/AAROM/PROM, Strengthening, Triggerpoint Release, Modalities, Orthoses, Joint Protection/Energy Conservation, Education re Diagnosis and Home Program Visit Plan Frequency: 3x /Week Duration: 4-6 Weeks General Plan: pain management stretch strengthen bracing TEXT: Thank you for the opportunity to evaluate your patient. For Medicare and Medicare HMO plans, please review the plan of care and approve it. It will need to be FAXED BACK to us at [phone] for Medicare purposes. Please let me know if there are questions or concerns regarding this plan of care. Physician Signature: Date: 10/08/24 1358 CC: JAME Mcgrath; Dr. Pietro Turner MD CK Signed For Medicare only, by signing this I certify the plan of care. _ Physicians Signature Date Normal [facility] Elbow min 3 Viewson 09-26-20 Elbow min 3 Views [facility] [address] [place] [id number] Elbow min 3 Views MR#: [id number] Acct: [id number] Name: ALIX LEE Rep #: [id number] : 1960 M 64 From: Kayden White MD PCP: Dr. Pietro Turner MD Status: REG CLI Study: Elbow min 3 Views Date of Exam: 09/26/24 Exam# [id number] Ordering Dr: Solitario Guy [id number] EXAM: XR RIGHT ELBOW COMPLETE, 3 OR MORE VIEWS CLINICAL INDICATION: Right elbow pain TECHNIQUE: Frontal, lateral and oblique views of the right elbow. COMPARISON: No relevant prior studies available. FINDINGS: BONES/JOINTS: No acute fracture, subluxation or joint effusion. No joint space narrowing. Olecranon process enthesopathy is noted. SOFT TISSUES: Normal. No soft tissue swelling or gas. No radiopaque foreign body. RAD/Elbow min 3 Views IMPRESSION: No acute abnormality. Electronically Signed: Kayden White MD at 9:19 EST , CC: JAME Mcrgath; Dr. Pietro Turner MD Client Service Consultant: Signed [facility] Urgent Care Visit Reporton 1 11-26-2023 Urgent Care Visit Report [facility] [address], [address] [place] [address] OFFICE VISIT Date of Service: 09/26/24 MR#: [id number] Acct: [id number] Name: ALIX LEE Rep #: [id number] : 1960 Provider: JAME Mcgrath Age/Sex: 64/M Location: [facility] Status: Signed Intake Vital Signs 09/05/24 13:01 09/26/24 08:31 09/26/24 08:57 Height 6 ft 1 in 6 ft 1 in Weight: 256 lb BMI 33.7 BP 127/77 H 154/86 H Blood Pressure Location Lt brachial Lt brachial Position Sitting Sitting Respiration 16 16 Pulse 65 92 Pulse Source NIBP NIBP Temp 97.9 F Temp Source Oral Pulse Oximetry (%) 98 Oxygen Delivery Method room air Intake Visit Reasons: R ELBOW PAIN/STRESS 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 Chief Complaint: WC new, right elbow 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 Is patient in pain?: Yes Allergies Penicillins (PCN) Allergy (Verified 09/26/24 08:59) Other lisinopril Adverse Reaction (Verified 09/26/24 08:59) cough spironolactone Adverse Reaction (Verified 09/26/24 08:59) elevated blood sugar Have you fallen in the past year?: [facility] History Nausea vomiting Colon cancer screening Cholelithiasis Wears hearing aid Wears glasses Schizophrenia Anxiety Diabetes Low iron Fatty liver Restless legs Back pain Tic disorder History of diverticulitis Former smoker History of stress test Cardiology follow-up encounter Hypertension History of sarcoidosis Depression Pancreatitis 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 History of non-ST elevation myocardial infarction (NSTEMI) (07/26/20) Essential hypertension Type 2 diabetes mellitus Nausea Fatigue Urinary hesitancy Liver disease Hypoglycemia Hyperlipemia Gout GERD (gastroesophageal reflux disease) Anxiety and depression Bone fracture Anemia History of alcohol abuse Schizoaffective disorder Surgical History History of cholecystectomy Hx of colonoscopy History of left heart catheterization (11/02/21) History of coronary artery stent placement (07/26/20) History of cataract surgery History of placement of ear tubes History of tonsillectomy History of amputation of finger Family History Other CVA (cerebral vascular accident) Cancer Depression with anxiety Diabetes FH: mental illness Hyperlipemia Hypertension Osteoporosis Social History Smoking Status: Former smoker quit date: 10/29/05 Tobacco: How many years used: 15 alcohol intake: former year quit: 2014 substance use type: does not use caffeine: Yes Type: carbonated beverages and coffee what type of physical activity do you participate in: walking HPI HPI Chief Complaint: WC new, right elbow Details: ALIX LEE, is a 64 M who presents to the office today for complaint of right elbow discomfort. Patient states that his right elbow pain has been ongoing for the past 10 days or so and worsening. 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 He denies any previous injuries to the elbow. No numbness, tingling or loss range of motion. No other associated symptoms or alleviating/aggravating factors. ROS Const Constitutional: No other (6 system ROS completed with pertinent findings in the HPI otherwise normal.) Exam Const General: cooperative and healthy appearing Skin General: no rashes or lesions noted Neuro General: patient alert Extrem General: full ROM and capillary refill normal Other: Pain to palpation posterior right elbow with no obvious deformity to palpation. Psych Appearance: grossly normal Mental Status: mental status grossly normal Coding Level of Care Code Off vis,est,level 4 Diagnoses Right elbow tendinitis M77.8 Assessment and Plan Assessment and Plan (1) Right elbow tendinitis: Status: Acute Plan: X-ray of the right elbow read interpreted myself find no acute osseous abnormality, awaiting radiology interpretation at time of patient discharge. First report of injury form as well as TYMR 14 filled out releasing patient back to work today with restrictions of no use of the right arm. Form C9 filled out requesting occupational therapy. Medrol Dosepak as prescribed today. Encouraged to get plenty of rest and use Tylenol or Ibuprofen (unless contraindicated) for comfort. Patient also educated on other symptomatic management techniques. Patient advised to follow-up here in 3 weeks for reevaluation or sooner should any worsening symptoms or new concerns. Orders: Orders (more content not included)... Normal [facility] 12 Lead EKG performed by [facility] on 09-05-2024 12 Lead EKG performed by [facility] [address] [place] [address] 12 Lead EKG performed by [facility] 09/05/24 1306 MR#: [id number] Acct: [id number] Name: ALIX LEE Rep #: [id number] : 1960 64 From: Jocelyne Dickey NP [employer]C Attending Dr: VARGAS ChisholmC Status: DEP AMB Ordering Dr: Jocelyne Dickey NP [employer] Date: 09/05/24 Location: [facility] Sex: M C Admitted: [facility]/12 Lead EKG performed by [facility] ECG Report Interpretation S inus Rhythm -Electronically signed on 09/11/2024 at 08:05 by Marck Orellana Software Version [id number] 09/11/2409 Date Jocelyne Dickey NP [employer]C CC: Dr. Pietro Turner MD Date Dictated: 09/05/241305 Date Transcribed: 09/05/241305 Client Service Consultant: FLOR Signed Normal [facility] Cardiology Visit Reporton Cardiology Visit Report [facility] [address] [place] [address] OFFICE VISIT Date of Service: 09/05/24 MR#: [id number] Acct: [id number] Name: ALIX LEE Rep #: [id number] : 1960 Provider: MICHELLE koch Age/Sex: 64/M Location: [facility] Status: Signed HPI HPI History of Present Illness Details: This is a pleasant 64-year-old man who presents to the office today for a cardiovascular followup visit. He was previously referred to us for complaints of fatigue and dyspnea. He had presented in June 2020 with chest discomfort and radiation to his face. He was admitted for non-ST elevation myocardial infarction, underwent a cardiac catheterization which demonstrated single- vessel disease to the proximal left anterior descending artery. He did undergo angioplasty and stenting of this vessel with a 3.5 x 28 mm Synergy stent. He did fairly well after that and underwent a stress test in August 2020 where he exercised to a moderate metabolic workload of 6.4 metabolic equivalents with hypertensive response to exercise. He continued on the current medication. At that time he was noted to be on Brilinta which subsequently caused dyspnea and this was discontinued and he was switched to Effient. He did well in the interim and underwent a stress test in December 2020 which demonstrated no evidence of ischemia. ProBNP also performed at that time was noted to be normal. His echocardiogram had demonstrated preserved ejection fraction of 55 to 60%. His most recent cardiac catheterization from October of 2021 demonstrated previously placed stent in the left anterior descending artery is noted to be patent, and there is moderate disease noted in the right coronary artery and the circumflex artery but no high-grade stenosis noted. He underwent further evaluation with a polysomnogram that was positive for mild obstructive sleep apnea. He does state that treatment of such has improved his energy level. He has a history of hypertension, hyperlipidemia, obesity and diabetes mellitus. He recently contacted office expressing concerns regarding ongoing palpitations. These are very infrequent episodes, but the frequency has been increasing. He describes this as skipping and fluttering. He denies chest, arm, jaw, or neck discomfort. He denies bilateral lower extremity edema. He acknowledges shortness of breath with activity such as going up steps. He denies shortness of breath at rest, orthopnea, cough, or PND. He acknowledges dizziness, nausea, and weakness. He denies fatigue. 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 Is patient in pain?: No Allergies Penicillins (PCN) Allergy (Verified 09/05/24 13:10) Other lisinopril Adverse Reaction (Verified 09/05/24 13:10) cough spironolactone Adverse Reaction (Verified 09/05/24 13:10) elevated blood sugar Medications ???Medication ???Instructions ???Recorded ???Confirmed ???Type needle (disp) 18 G 18 gauge x 1 #100 ea 05/22/22 06/20/24 Rx (BD Regular Bevel [place]) nitroglycerin 0.4 mg sublingual 0.4 mg sublingual Q5-15M PRN chest 01/11/24 09/05/24 Rx tablet (Nitrostat) pain #25 tabs atorvastatin 40 mg tablet 40 mg PO QHS 90 days #90 tabs 01/14/24 09/05/24 Rx flash glucose scanning reader #1 ea 02/05/24 06/20/24 Rx (FreeStyle Jean 2 [place]) flash glucose sensor (FreeStyle #1 ea 02/05/24 06/20/24 Rx Jean 2 Sensor kit) cholecalciferol (vitamin D3) 125 5,000 unit PO DAILY 05/05/24 09/05/24 History mcg (5,000 unit) tablet (Vitamin D3) coenzyme Q10 100 mg capsule 100 mg PO DAILY because I'm taking 05/05/24 09/05/24 History (CoQ-10) a statin ferrous sulfate 325 mg (65 mg 325 mg PO DAILY 05/05/24 09/05/24 History iron) tablet (FeroSul) fluoxetine 40 mg capsule 80 mg PO 1400 05/05/24 09/05/24 History metformin 500 mg tablet,extended 1,000 mg PO BID 05/05/24 09/05/24 History release 24 hr trifluoperazine 2 mg tablet 2 mg PO 0300 For nervous tics. 05/05/24 09/05/24 History syringe with needle, safety 3 mL #50 ea 05/13/24 06/20/24 Rx 25 gauge x 1 amlodipine 5 mg tablet 5 mg PO 0400 07/26/24 11/08/24 History aspirin 81 mg tablet,delayed 81 mg PO 1400 05/23/24 09/05/24 History release carvedilol 25 mg tablet 25 mg PO 1400,0100 05/23/24 09/05/24 History omega-3-epa 910 mg-fish oil 1,300 2 cap PO DAILY 05/23/24 09/05/24 History mg capsule,delayed release vitamin B complex 1 tab PO DAILY 05/23/24 09/05/24 History testosterone cypionate 200 mg/mL 100 mg (0.5 mL) IM Q2W #5 mL 06/09/24 09/05/24 Rx intra (more content not included)... Normal [facility] Absolute lymphocyte countOrd ered By: Bridger Han on 02-19-2024 Lymphocytes Auto (Unsp spec) [#/Vol] 1.66 10*3/uL 0.83-4.51 [facility] Automated lymphocyte count a s percentage of total leukocytesOrdered By: Bridger Han on 02-19-2024 Lymphocytes/100 WBC Auto (Unsp spec) 21.1 % 19-41 [facility] Basophil percentageOrdered B y: Bridger Han on 02-19-2024 Basophils/100 WBC (Bld) 0.6 % 0-1 [facility] Bilirubin [Mass/Vol] 0.80 mg/dL 0.20-1.00 [facility] Comment on above: For patients on eltr ombopag therapy, use of Dimension [place] TBIL is not recommended. Chloride [Moles/Vol] 106 mmol/L 98-107 [facility] Eosinophils/100 WBC (Bld) 3.7 % 0-5 [facility] Glucose [Mass/Vol] 142 mg/dL 74-106 [facility] Comment on above: Fasting Glucose resu lt greater than or equal to 126 mg/dL suggests DIABETES MELLITUS per A.D.A. criteria. Hemoglobin (Bld) [Mass/Vol] 13.1 g/dL 13.0-16.5 [facility] Monocytes/100 WBC (Bld) 7.4 % 0-10 [facility] Neutrophils (Bld) [#/Vol] 5.3 10*3/uL 2.0-7.7 [facility] Neutrophils/100 WBC (Bld) 66.9 % 47-70 [facility] Potassium [Moles/Vol] 3.7 mmol/L 3.5-5.1 [facility] Protein [Mass/Vol] 7.1 g/dL 6.4-8.2 [facility] Sodium [Moles/Vol] 138 mmol/L 136-145 [facility] WBC (Bld) [#/Vol] 7.9 10*3/uL 4.4-11.0 [facility] Determination of erythrocyte mean corpuscular volume (MCV)Ordered By: Bridger Han on 02-19-2024 MCV (RBC) [Entitic vol] 90.3 fL 80-94 [facility] Direct bilirubinOrdered By: Bridger Han on 02-19-2024 Bilirubin.direct [Mass/Vol] 0.34 mg/dL 0.00-0.30 [facility] Erythrocyte distribution wid th ratioOrdered By: Bridger Han on 02-19-2024 Erythrocyte distribution width (RBC) [Ratio] 13.5 % 11.6-14.6 [facility] Erythrocyte distribution wid th standard deviationOrdered By: Bridger Han on 02-19-2024 Erythrocyte distribution width (RBC) [Entitic vol] 44.1 fL 35.1-43.9 [facility] Hematocrit Auto (Bld) [Volum e fraction]Ordered By: Bridger Han on 02-19-2024 Hematocrit (Bld) [Volume fraction] 39.0 % 40-54 [facility] Immature granulocytes/100 WB C Auto (Bld)Ordered By: Bridger Han on 02-19-2024 Immature granulocytes/100 WBC (Bld) 0.300 % 0.0-0.9 [facility] Comment on above: IG% - Immature Granu locytes (promyelocytes, myelocytes and metamyelocytes) > 1% indicates that a LEFT SHIFT is Present. Laboratory - Chemistry and C hemistry - challengeOrdered By: Bridger Han on 02-19-2024 ALP [Catalytic activity/Vol] 143 U/L 45-117 [facility] ALT [Catalytic activity/Vol] 89 U/L 16-61 [facility] CO2 [Moles/Vol] 26.0 mmol/L 21.0-32.0 [facility] Globulin (S) [Mass/Vol] 3.2 g/dL 2.2-4.2 [facility] Lipase [Catalytic activity/Vol] 31 U/L 13-75 [facility] Comment on above: Please note:LIPASE r evised reference range effective 23. New Lipase methodology. Expected to produce lower values than the previous assay method. NEW Reference Range: 13 - 75 U/L Magnesium [Mass/Vol] 2.5 mg/dL 1.6-2.6 [facility] Urea nitrogen/Creatinine [Mass ratio] 23.1 mg/mg 10-20 [facility] Laboratory - Hematology and Cell countsOrdered By: Bridger Han on 02-19-2024 MCH (RBC) [Entitic mass] 30.3 pg 27.0-32.0 [facility] MCHC (RBC) [Mass/Vol] 33.6 g/dL 32-36 [facility] Nucleated RBC/100 WBC (Bld) [Ratio] 0 % 0-5 [facility] Platelet mean volume (Bld) [Entitic vol] 9.7 fL 6.2-12.0 [facility] Platelets (Bld) [#/Vol] 202 10*3/uL 150-450 [facility] No Panel InformationOrdered By: Bridger Han on 02-19-2024 Troponin I High Sensitivity 4 pg/mL 3.0-78.0 [facility] Comment on above: Please Note: New Ángela t Units and Gender Specific Reference Ranges. For more information see Policy Stat Procedure [place] High Sensitivity Troponin (TNIH) and attachments. Estimated Creatinine Clearance Calc 85.76 ml/min [facility] Estimated GFR (MDRD) Amer 78 mL/min >60 [facility] Comment on above: GFR Calc Estimated GFR (MDRD) Non-Af Amer 65 mL/min >60 [facility] Comment on above: Non- GFR Calc RBC Auto (Bld) [#/Vol]Ordere d By: Bridger Han on 02-19-2024 RBC (Bld) [#/Vol] 4.32 10*6/uL 4.6-6.2 [facility] Serum or plasma calcium michelle urement (mass/volume)Ordered By: Bridger Han on 02-19-2024 Calcium [Mass/Vol] 9.2 mg/dL 8.5-10.1 [facility] Serum or plasma creatinine m easurement (mass/volume)Ordered By: Bridger Han on 02-19-2024 Creatinine [Mass/Vol] 1.21 mg/dL 0.70-1.30 [facility] Comment on above: The validity of the calculated GFR & GFRAA in patients over 70 years has not been determined. Clinical correlation is essential. Serum or plasma urea nitroge n measurement (mass/volume)Ordered By: Bridger Han on 02-19-2024 Urea nitrogen [Mass/Vol] 28 mg/dL 7-18 [facility] Thin prep Papanicolaou smear with manual screeningOrdered By: Bridger Han on 02-19-2024 Thin prep Papanicolaou smear with manual screening 3.9 g/dL 3.2-5.0 [facility] Thin prep Papanicolaou smear with manual screening 102 U/L 15-37 [facility] Thin prep Papanicolaou smear with manual screening 6 5-15 [facility] Absolute lymphocyte countOrd ered By: Pietro Turner on 01-03-2024 Lymphocytes Auto (Unsp spec) [#/Vol] 1.33 10*3/uL 0.83-4.51 [facility] Automated lymphocyte count a s percentage of total leukocytesOrdered By: Pietro Turner on 01-03-2024 Lymphocytes/100 WBC Auto (Unsp spec) 16.6 % 19-41 [facility] Basophil percentageOrdered B y: Pietro Turner on 01-03-2024 Basophils/100 WBC (Bld) 0.6 % 0-1 [facility] Bilirubin [Mass/Vol] 0.80 mg/dL 0.20-1.00 [facility] Comment on above: For patients on eltr ombopag therapy, use of Dimension [place] TBIL is not recommended. Chloride [Moles/Vol] 104 mmol/L 98-107 [facility] Cholesterol [Mass/Vol] 105 mg/dL <200 [facility] Comment on above: <200 mg/dL Desirable 200-240 mg/dL Borderline >240 mg/dL High Risk Eosinophils/100 WBC (Bld) 4.5 % 0-5 [facility] Glucose [Mass/Vol] 161 mg/dL 74-106 [facility] Comment on above: Fasting Glucose resu lt greater than or equal to 126 mg/dL suggests DIABETES MELLITUS per A.D.A. criteria. Hemoglobin (Bld) [Mass/Vol] 13.4 g/dL 13.0-16.5 [facility] Monocytes/100 WBC (Bld) 8.0 % 0-10 [facility] Neutrophils (Bld) [#/Vol] 5.6 10*3/uL 2.0-7.7 [facility] Neutrophils/100 WBC (Bld) 69.8 % 47-70 [facility] Potassium [Moles/Vol] 4.2 mmol/L 3.5-5.1 [facility] Protein [Mass/Vol] 7.1 g/dL 6.4-8.2 [facility] Sodium [Moles/Vol] 140 mmol/L 136-145 [facility] Triglyceride [Mass/Vol] 115 mg/dL <199 [facility] Comment on above: The drugs N-Acetylcy steine and Metamizole may falsely depress this assay.Serum Triglycerides Reference Interval Normal <150 mg/dL Borderline high 150 - 199 mg/dL High 200 - 499 mg/dL Very High > or = 500 mg/dL WBC (Bld) [#/Vol] 8.0 10*3/uL 4.4-11.0 [facility] Determination of erythrocyte mean corpuscular volume (MCV)Ordered By: Pietro Turner on 01-03-2024 MCV (RBC) [Entitic vol] 89.1 fL 80-94 [facility] Erythrocyte distribution wid th ratioOrdered By: Pietro Turner on 01-03-2024 Erythrocyte distribution width (RBC) [Ratio] 14.1 % 11.6-14.6 [facility] Erythrocyte distribution wid th standard deviationOrdered By: Pietro Turner on 01-03-2024 Erythrocyte distribution width (RBC) [Entitic vol] 44.9 fL 35.1-43.9 [facility] Hematocrit Auto (Bld) [Volum e fraction]Ordered By: Pietro Turner on 01-03-2024 Hematocrit (Bld) [Volume fraction] 40.1 % 40-54 [facility] Immature granulocytes/100 WB C Auto (Bld)Ordered By: Pietro Turner on 01-03-2024 Immature granulocytes/100 WBC (Bld) 0.500 % 0.0-0.9 [facility] Comment on above: IG% - Immature Granu locytes (promyelocytes, myelocytes and metamyelocytes) > 1% indicates that a LEFT SHIFT is Present. Laboratory - Chemistry and C hemistry - challengeOrdered By: Pietro Turner on 01-03-2024 Albumin/Globulin [Mass ratio] 1.4 {ratio} 0.9-2.4 [facility] ALP [Catalytic activity/Vol] 86 U/L 45-117 [facility] ALT [Catalytic activity/Vol] 44 U/L 16-61 [facility] Cholesterol in HDL [Mass/Vol] 38 mg/dL >40 [facility] Comment on above: The drugs N-Acetylcy steine and Metamizole may falsely depress this assay. Reference Range HDL <40 mg/dL Low HDL Cholesterol HDL >or= 60 mg/dL High HDL Cholesterol Cholesterol in LDL [Mass/Vol] 44 mg/dL 0-130 [facility] CO2 [Moles/Vol] 28.0 mmol/L 21.0-32.0 [facility] Globulin (S) [Mass/Vol] 3.0 g/dL 2.2-4.2 [facility] Urea nitrogen/Creatinine [Mass ratio] 24.8 mg/mg 10-20 [facility] Laboratory - Hematology and Cell countsOrdered By: Pietro Turner on 01-03-2024 MCH (RBC) [Entitic mass] 29.8 pg 27.0-32.0 [facility] MCHC (RBC) [Mass/Vol] 33.4 g/dL 32-36 [facility] Nucleated RBC/100 WBC (Bld) [Ratio] 0 % 0-5 [facility] Platelet mean volume (Bld) [Entitic vol] 9.3 fL 6.2-12.0 [facility] Platelets (Bld) [#/Vol] 216 10*3/uL 150-450 [facility] No Panel InformationOrdered By: Pietro Turner on 01-03-2024 Estimated GFR (MDRD) Amer 92 mL/min >60 [facility] Comment on above: GFR Calc Estimated GFR (MDRD) Non-Af Amer 76 mL/min >60 [facility] Comment on above: Non- GFR Calc Insulin Level 6.7 mU/L 2.6-37.6 [facility] Vitamin D 25-Hydroxy 31.9 ng/mL [facility] Comment on above: Vitamin D 25(OH) Sta tus Range Deficiency <20 ng/mL (50nmol/L) Insufficiency 20 - 30 ng/mL (50 - 75 nmol/L) Sufficiency 30 - 100 ng/mL (75 - 250 nmol/L) Toxicity >100 ng/mL (>250 nmol/L) VLDL Cholesterol 23 mg/dL 5-40 [facility] RBC Auto (Bld) [#/Vol]Ordere d By: Pietro Turner on 01-03-2024 RBC (Bld) [#/Vol] 4.50 10*6/uL 4.6-6.2 [facility] Serum or plasma calcium michelle urement (mass/volume)Ordered By: Pietro Turner on 01-03-2024 Calcium [Mass/Vol] 9.1 mg/dL 8.5-10.1 [facility] Serum or plasma creatinine m easurement (mass/volume)Ordered By: Pietro Turner on 01-03-2024 Creatinine [Mass/Vol] 1.05 mg/dL 0.70-1.30 [facility] Comment on above: The validity of the calculated GFR & GFRAA in patients over 70 years has not been determined. Clinical correlation is essential. Serum or plasma thyroid stim ulating hormone (TSH) measurement (units/volume)Ordered By: Pietro Turner on 01-03-2024 TSH Qn 2.26 uIU/mL 0.358-3.74 [facility] Serum or plasma urea nitroge n measurement (mass/volume)Ordered By: Pietro Turner on 01-03-2024 Urea nitrogen [Mass/Vol] 26 mg/dL 7-18 [facility] Thin prep Papanicolaou smear with manual screeningOrdered By: Pietro Turner on 01-03-2024 Thin prep Papanicolaou smear with manual screening 4.1 g/dL 3.2-5.0 [facility] Thin prep Papanicolaou smear with manual screening 26 U/L 15-37 [facility] Thin prep Papanicolaou smear with manual screening 8 5-15 [facility] Whole blood hemoglobin A1c/t otal hemoglobin ratio (mass fraction)Ordered By: Pietro Turner on 01-03-2024 HbA1c (Bld) [Mass fraction] 7.4 % 3.8-5.6 [facility] Comment on above: Normal < 5.7 % Predi abetic 5.7 - 6.4 % Diabetic >or= 6.5 % Please note range changes. Raegan 10-08-2023 CNPN Telephone (UCTR) ALIX LEE ([id number]) 1960 M Date Time Provider Department 10/08/23 [facility] During your visit today, we recorded the following information about you: Amanda Foster 10/08/2023 2:42 PM Signed Patient requesting a note sent in [employer] for employer. Poncho Michelle MD 10/08/2023 2:54 PM Signed Letter printed. Amanda Foster 10/08/2023 3:06 PM Signed Patient given results and verbalized understanding of instructions given.Amanda Foster Allergies As of Date: 10/08/2023 Noted Allergy Reaction PENICILLINS 11/04/2008 Date Reviewed: 10/05/2023 Reviewed by: Obdulia Alcantar LPN - Fully Assessed Reason for Visit: Letter [264] Prescriptions as of 10/08/2023 - FLUoxetine (PROZAC) 10 mg capsule Take 10 mg by mouth once daily. - venlafaxine XR (EFFEXOR XR) 225 mg tablet Take 225 mg by mouth once daily. - isosorbide mononitrate ER (IMDUR) 60 mg 24 hr tablet Take 60 mg by mouth two times a day. - icosapent ethyl (VASCEPA) 1 gram capsule Take 2 g by mouth two times a day. - mirtazapine (REMERON) 30 mg tablet Take 30 mg by mouth once daily. - clonazePAM (KLONOPIN) 0.5 mg tablet Take 1 mg by mouth daily at bedtime. - amLODIPine (NORVASC) 5 mg tablet Take 5 mg by mouth once daily. - STEGLATRO 15 mg tablet Take 1 tablet by mouth every afternoon. - metFORMIN (GLUCOPHAGE) 500 mg tablet Take 1,000 mg by mouth once daily. - triFLUOperazine (STELAZINE) 2 mg tablet Take 2 mg by mouth once daily. - nirmatrelvir tablet 300 mg (150 mg x 2) and ritonavir tablet 100 mg in a dose pack (PAXLOVID) Administer TWO pink nirmatrelvir 150 mg tablets and ONE white ritonavir 100 mg tablet for a total of three tablets twice daily. - atorvastatin (LIPITOR) 40 mg tablet Take 1 tablet by mouth once daily. - FEROSUL 325 mg (65 mg iron) tablet TAKE 1 TABLET BY MOUTH TWICE DAILY FOR 30 DAYS, THEN 1 TABLET ONCE DAILY THEREAFTER - nitroglycerin sublingual (NITROQUICK) 0.4 mg SL tablet 0.4 mg. - aspirin, enteric coated (ASPIRIN, ENTERIC COATED) 81 mg EC tablet Take 81 mg by mouth once daily. - carvedilol (COREG) 12.5 mg tablet Take 25 mg by mouth twice daily. - olmesartan (BENICAR) 5 mg tablet Take 5 mg by mouth once daily. - prasugrel (EFFIENT) 10 mg tab Take 10 mg by mouth once daily. Problem List As Of Date 10/08/2023 Noted Resolved SCHIZOAFFECTIVE DISORDER NOS [F25.9] 01/28/2009 Unspecified Psychosis [F29] 03/22/2010 05/27/2010 OCD (Obsessive Compulsive Disorder) [F42.9] 03/22/2010 ETOH Abuse [F10.10] 05/30/2010 Diabetes mellitus type II 02/20/2009 Pancreatitis [K85.90] 02/21/2008 Alcohol dependence [F10.20] 02/20/2011 Letter Text Encounter Status:Closed by AMANDA [facility] ([id number]) 1960 Date Time Provider Department 10/08/23 [facility] During your visit today, we recorded the following information about you: Alfreda Vincent LPN 10/08/2023 2:16 PM Signed Pt was seen in 10/05 and received results today that he was positive for Covid. 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 Pt reports he wears gloves and can also wear a mask. Pt reports he feels well enough to do his job. Pt is asking if him cleaning at night without anyone there would affect the employees when they return the following day. Eileen Boudreaux LPN, APRN.[facility] 10/08/2023 2:31 PM Signed Patient needs to follow the CDC guidelines. For the first 5 days remain isolated and away from others. For days 6 through 10 he can go out and about, but with mask. Amanda Foster 10/08/2023 2:37 PM Signed Patient given results and verbalized understanding of instructions given. Amanda [facility] Allergies As of Date: 10/08/2023 Noted Allergy Reaction PENICILLINS 11/04/2008 Date Reviewed: 10/05/2023 Reviewed by: Obdulia Alcantar LPN - Fully Assessed Reason for Visit: Results [95] Prescriptions as of 10/08/2023 - FLUoxetine (PROZAC) 10 mg capsule Take 10 mg by mouth once daily. - venlafaxine XR (EFFEXOR XR) 225 mg tablet Take 225 mg by mouth once daily. - isosorbide mononitrate ER (IMDUR) 60 mg 24 hr tablet Take 60 mg by mouth two times a day. - icosapent ethyl (VASCEPA) 1 gram capsule Take 2 g by mouth two times a day. - mirtazapine (REMERON) 30 mg tablet Take 30 mg by mouth once daily. - clonazePAM (KLONOPIN) 0.5 mg tablet Take 1 mg by mouth daily at bedtime. - amLODIPine (NORVASC) 5 mg tablet Take 5 mg by mouth once daily. - STEGLATRO 15 mg tablet Take 1 tablet by mouth every afternoon. - metFORMIN (GLUCOPHAGE) 500 mg tablet Take 1,000 mg by mouth once daily. - triFLUOperazine (STELAZINE) 2 mg tablet Take 2 mg by mouth once daily. - nirmatrelvir tablet 300 mg (150 mg x 2) and ritonavir tablet 100 mg in a dose pack (PAXLOVID) Administer TWO pink nirmatrelvir 150 mg tablets and ONE white ritonavir 100 mg tablet for a total of three tablets twice daily. - atorvastatin (LIPITOR) 40 mg tablet Take 1 tablet by mouth once daily. - FEROSUL 325 mg (65 mg iron) tablet TAKE 1 TABLET BY MOUTH TWICE DAILY FOR 30 DAYS, THEN 1 TABLET ONCE DAILY THEREAFTER - nitroglycerin sublingual (NITROQUICK) 0.4 mg SL tablet 0.4 mg. - aspirin, enteric coated (ASPIRIN, ENTERIC COATED) 81 mg EC tablet Take 81 mg by mouth once daily. - carvedilol (COREG) 12.5 mg tablet Take 25 mg by mouth twice daily. - olmesartan (BENICAR) 5 mg tablet Take 5 mg by mouth once daily. - prasugrel (EFFIENT) 10 mg tab Take 10 mg by mouth once daily. Problem List As Of Date 10/08/2023 Noted Resolved SCHIZOAFFECTIVE DISORDER NOS [F25.9] 01/28/2009 Unspecified Psychosis [F29] 03/22/2010 05/27/2010 OCD (Obsessive Compulsive Disorder) [F42.9] 03/22/2010 ETOH Abuse [F10.10] 05/30/2010 Diabetes mellitus type II 02/20/2009 Pancreatitis [K85.90] 02/21/2008 Alcohol dependence [F10.20] 02/20/2011 Encounter Status:[facility] ([facility]) ALIX LEE ([id number]) 1960 M Date Time Provider Department 10/06/23 MELISSA MILAN WS During your visit today, we recorded the following information about you: Melissa Milan APRN.GATITO 10/06/2023 8:18 AM Signed I attempted to reach patient to advise of positive COVID test result. No answer, left message. If patient returns call, May be advised of positive test result and The CDC recommends that people refrain from work and isolate themselves until the following criteria are met: At least 24 hours have passed since last fever without the use of fever-reducing medications Other symptoms have improved At least 5 days have passed since symptoms first appeared He has a printed prescription for Paxlovid. He can start taking this medication today. Please remind him to hold his statin for the duration of time he is taking Paxlovid. Melissa Milan APRN.MANAGER CASE MANAGEMENT HyunAnna hyattissa 10/08/2023 1:55 PM Signed Patient given results and verbalized understanding of instructions given. Allergies As of Date: 10/06/2023 Noted Allergy Reaction PENICILLINS 11/04/2008 Date Reviewed: 10/05/2023 Reviewed by: Obdulia Alcantar LPN - Fully Assessed Reason for Visit: Results [95] Prescriptions as of 10/08/2023 - FLUoxetine (PROZAC) 10 mg capsule Take 10 mg by mouth once daily. - venlafaxine XR (EFFEXOR XR) 225 mg tablet Take 225 mg by mouth once daily. - isosorbide mononitrate ER (IMDUR) 60 mg 24 hr tablet Take 60 mg by mouth two times a day. - icosapent ethyl (VASCEPA) 1 gram capsule Take 2 g by mouth two times a day. - mirtazapine (REMERON) 30 mg tablet Take 30 mg by mouth once daily. - clonazePAM (KLONOPIN) 0.5 mg tablet Take 1 mg by mouth daily at bedtime. - amLODIPine (NORVASC) 5 mg tablet Take 5 mg by mouth once daily. - STEGLATRO 15 mg tablet Take 1 tablet by mouth every afternoon. - metFORMIN (GLUCOPHAGE) 500 mg tablet Take 1,000 mg by mouth once daily. - triFLUOperazine (STELAZINE) 2 mg tablet Take 2 mg by mouth once daily. - nirmatrelvir tablet 300 mg (150 mg x 2) and ritonavir tablet 100 mg in a dose pack (PAXLOVID) Administer TWO pink nirmatrelvir 150 mg tablets and ONE white ritonavir 100 mg tablet for a total of three tablets twice daily. - atorvastatin (LIPITOR) 40 mg tablet Take 1 tablet by mouth once daily. - FEROSUL 325 mg (65 mg iron) tablet TAKE 1 TABLET BY MOUTH TWICE DAILY FOR 30 DAYS, THEN 1 TABLET ONCE DAILY THEREAFTER - nitroglycerin sublingual (NITROQUICK) 0.4 mg SL tablet 0.4 mg. - aspirin, enteric coated (ASPIRIN, ENTERIC COATED) 81 mg EC tablet Take 81 mg by mouth once daily. - carvedilol (COREG) 12.5 mg tablet Take 25 mg by mouth twice daily. - olmesartan (BENICAR) 5 mg tablet Take 5 mg by mouth once daily. - prasugrel (EFFIENT) 10 mg tab Take 10 mg by mouth once daily. Problem List As Of Date 10/06/2023 Noted Resolved SCHIZOAFFECTIVE DISORDER NOS [F25.9] 01/28/2009 Unspecified Psychosis [F29] 03/22/2010 05/27/2010 OCD (Obsessive Compulsive Disorder) [F42.9] 03/22/2010 ETOH Abuse [F10.10] 05/30/2010 Diabetes mellitus type II 02/20/2009 Pancreatitis [K85.90] 02/21/2008 Alcohol dependence [F10.20] 02/20/2011 Encounter Status:Closed by AMANDA FOSTER on 10/08/23 [facility] 10-05-2023 [facility] Office Visit ([facility] ) ALIX LEE ([id number]) 1960 M Date Time Provider Department 10/05/23 6:00 PM MELISSA MILAN [facility] During your visit today, we recorded the following information about you: Temperature Pulse Respiration Blood pressure 98.3 degrees 85/minute 24/minute 108/66 Weight 120.2 kg Melissa Milan APRN.CNP 10/05/2023 6:41 PM Addendum ASSESSMENT/PLAN: 1. Suspected 2019 Novel Coronavirus Infection [...] Discussed expected course of illness Melissa Milan APRN.MANAGER CASE MANAGEMENT Beginning Home Isolation Isolation is used to separate people infected with SARS-CoV-2, the virus that causes COVID-19, from people who are not infected. People who are in isolation should stay home until it?s safe for them to be around others. In the home, anyone sick or infected should separate themselves from others by staying in a specific ?sick room? or area and using a separate bathroom (if available). Isolation or Quarantine: What's the difference? Quarantine keeps someone who might have been exposed to the virus away from others. Isolation keeps someone who is infected with the virus away from others, even in their home. Who needs to isolate People who have COVID-19 People who have symptoms of COVID-19 and are able to recover at home People who have no symptoms (are asymptomatic) but have tested positive for infection with SARS-CoV-2 Steps to take Stay home except to get medical care Monitor your symptoms. Stay in a separate room from other household members, if possible Use a separate bathroom, if possible Avoid contact with other members of the household and pets Don?t share personal household items, like cups, towels, and utensils Wear a mask when around other people, if you are able to When to seek emergency medical attention Look for emergency warning signs* for COVID-19. If someone is showing any of these signs, seek emergency medical care immediately: Trouble breathing Persistent pain or pressure in the chest New confusion Inability to wake or stay awake Bluish lips or face *This list is not all possible symptoms. Please call your medical provider for any other symptoms that are severe or concerning to you. Call 911 or call ahead to your local emergency facility: Notify the refinery operator light ends recovery that you are seeking care for someone who has or may have COVID-19. Ending Home Isolation - When you can be around others after you had or likely had COVID-19 When you can be around others after you had or likely had COVID-19 If You Test Positive for COVID-19 (Isolation) Everyone, regardless of vaccination status: Stay home for 5 days. Note: Day 0 is your first day of symptoms or the date of collection of a positive viral test if no symptoms. Day 1 is the first full day after symptoms developed or test specimen was collected. If you have no symptoms or your symptoms are resolving after 5 days, you can leave your house. Continue to wear a mask around others for 5 additional days. If you have a fever, continue to stay home until your fever resolves, even if it is longer than 5 days. If You Were Exposed to Someone with COVID-19 (Quarantine) If you: 1. Have been boosted OR 2. Completed the primary series of Pfizer or Moderna vaccine within the last 6 months OR 3. Completed the primary series of JANDJ vaccine within the last 2 months THEN: 1. Wear a mask around others for 10 days. 2. Test on day 5, if possible. If you develop symptoms get a test and stay home. If You Were Exposed to Someone with COVID-19 (Quarantine) If you: 1. Completed the primary series of Pfizer or Moderna vaccine over 6 months ago and are not boosted OR 2. Completed the primary series of JANDJ over 2 months ago and are not boosted OR 3. Are unvaccinated THEN: 1. Stay home for 5 days. After that continue to wear a mask around others for 5 additional days. 2. If you can't quarantine you must wear a mask for 10 days. 3. Test on day 5 if possible. If (more content not included)... Normal [facility] FLUABV + SARS-CoV-2 Pnl Resp JAZMINE+prbon 10-05-2023 Influenza virus A and B RNA and SARS-CoV-2 (COVID-19) N gene panel JAZMINE+probe (Resp) COVID 19 RESULT: Detected The method used is RT-PCR or an equivalent NAAT method. Reference Range (the expected result in uninfected individuals): Not detected INFLUENZA A PCR: Not detected INFLUENZA B PCR: Not detected Abnormal [facility] Comment on above: Performed By: #### [id number] #### [facility] CLIA [id number] [address] [place] [address] [place] [facility] Absolute lymphocyte countOrd ered By: Pietro Turner on 09-24-2023 Lymphocytes Auto (Unsp spec) [#/Vol] 1.45 10*3/uL 0.83-4.51 [facility] Basophil percentageOrdered B y: Pietro Turner on 09-24-2023 Basophils/100 WBC (Bld) 0.8 % 0-1 [facility] Bilirubin [Mass/Vol] 0.50 mg/dL 0.20-1.00 [facility] Comment on above: For patients on eltr ombopag therapy, use of Dimension [place] TBIL is not recommended. Chloride [Moles/Vol] 107 mmol/L 98-107 [facility] Cholesterol [Mass/Vol] 106 mg/dL <200 [facility] Comment on above: <200 mg/dL Desirable 200-240 mg/dL Borderline >240 mg/dL High Risk Eosinophils/100 WBC (Bld) 4.6 % 0-5 [facility] Glucose [Mass/Vol] 184 mg/dL 74-106 [facility] Comment on above: Fasting Glucose resu lt greater than or equal to 126 mg/dL suggests DIABETES MELLITUS per A.D.A. criteria. Neutrophils (Bld) [#/Vol] 5.4 10*3/uL 2.0-7.7 [facility] Neutrophils/100 WBC (Bld) 68.0 % 47-70 [facility] Potassium [Moles/Vol] 4.0 mmol/L 3.5-5.1 [facility] Protein [Mass/Vol] 7.3 g/dL 6.4-8.2 [facility] Sodium [Moles/Vol] 138 mmol/L 136-145 [facility] Testosterone [Mass/Vol] 430 ng/dL 264-916 [facility] Comment on above: Adult male reference interval is based on a population ofhealthy nonobese males (BMI <30) between 19 and 39 yearsold. Rick et.al. JCEM 2017,102;6578-5799. PMID:[id number]. Triglyceride [Mass/Vol] 352 mg/dL <199 [facility] Comment on above: The drugs N-Acetylcy steine and Metamizole may falsely depress this assay.Serum Triglycerides Reference Interval Normal <150 mg/dL Borderline high 150 - 199 mg/dL High 200 - 499 mg/dL Very High > or = 500 mg/dL WBC (Bld) [#/Vol] 7.9 10*3/uL 4.4-11.0 [facility] Blood erythrocytes count (nu mber/volume)Ordered By: Pietro Turner on 09-24-2023 RBC (Bld) [#/Vol] 4.46 10*6/uL 4.6-6.2 [facility] Blood hemoglobin measurement (mass/volume)Ordered By: Pietro Turner on 09-24-2023 Hemoglobin (Bld) [Mass/Vol] 13.2 g/dL 13.0-16.5 [facility] Blood lymphocytes/100 leukoc ytesOrdered By: Pietro Turner on 09-24-2023 Lymphocytes/100 WBC (Bld) 18.4 % 19-41 [facility] Blood monocytes/100 leukocyt esOrdered By: Pietro Turner on 09-24-2023 Monocytes/100 WBC (Bld) 7.7 % 0-10 [facility] Blood platelet mean volumeOr dered By: Pietro Turner on 09-24-2023 Platelet mean volume (Bld) [Entitic vol] 9.3 fL 6.2-12.0 [facility] Determination of erythrocyte mean corpuscular volume (MCV)Ordered By: Pietro Turner on 09-24-2023 MCV (RBC) [Entitic vol] 87.9 fL 80-94 [facility] Free testosterone percentage Ordered By: Pietro Turner on 09-24-2023 Testosterone Free/Testosterone.tota l [Mass fraction] 2.77 % 1.50-4.20 [facility] Comment on above: Performed at: [address] [id number] Director: Geovanny Moore PhD, Phone: [phone] at: [address] [id number] Director: Lyle Alves MD, Phone: [phone] Hematocrit Auto (Bld) [Volum e fraction]Ordered By: Pietro uTrner on 09-24-2023 Hematocrit (Bld) [Volume fraction] 39.2 % 40-54 [facility] - Chemistry and C hemistry - challengeOrdered By: Pietro Turner on 09-24-2023 ALP [Catalytic activity/Vol] 110 U/L 45-117 [facility] ALT [Catalytic activity/Vol] 47 U/L 16-61 [facility] CO2 [Moles/Vol] 23.0 mmol/L 21.0-32.0 [facility] Globulin (S) [Mass/Vol] 3.2 g/dL 2.2-4.2 [facility] Urea nitrogen/Creatinine [Mass ratio] 20.0 mg/mg 10-20 [facility] - Hematology and Cell countsOrdered By: Pietro Turner on 09-24-2023 Erythrocyte distribution width (RBC) [Entitic vol] 42.0 fL 35.1-43.9 [facility] Erythrocyte distribution width (RBC) [Ratio] 13.2 % 11.6-14.6 [facility] Immature granulocytes/100 WBC (Bld) 0.500 % 0.0-0.9 [facility] Comment on above: IG% - Immature Granu locytes (promyelocytes, myelocytes and metamyelocytes) > 1% indicates that a LEFT SHIFT is Present. MCH (RBC) [Entitic mass] 29.6 pg 27.0-32.0 [facility] Nucleated RBC/100 WBC (Bld) [Ratio] 0 % 0-5 [facility] MCHC Auto (RBC) [Mass/Vol]Or dered By: Pietro Turner on 09-24-2023 MCHC (RBC) [Mass/Vol] 33.7 g/dL 32-36 [facility] No Panel InformationOrdered By: Pietro Turner on 09-24-2023 Estimated GFR (MDRD) Amer 83 mL/min >60 [facility] Comment on above: GFR Calc Estimated GFR (MDRD) Non-Af Amer 69 mL/min >60 [facility] Comment on above: Non- GFR Calc Thyroid Stimulating Hormone (TSH) 2.38 uIU/mL 0.358-3.74 [facility] Vitamin D 25-Hydroxy 24.9 ng/mL [facility] Comment on above: Vitamin D 25(OH) Sta tus Range Deficiency <20 ng/mL (50nmol/L) Insufficiency 20 - 30 ng/mL (50 - 75 nmol/L) Sufficiency 30 - 100 ng/mL (75 - 250 nmol/L) Toxicity >100 ng/mL (>250 nmol/L) Platelets bldOrdered By: Britni Turner on 09-24-2023 Platelets (Bld) [#/Vol] 201 10*3/uL 150-450 [facility] Serum or plasma albumin michelle urement (mass/volume)Ordered By: Pietro Turner on 09-24-2023 Albumin [Mass/Vol] 4.1 g/dL 3.2-5.0 [facility] Serum or plasma albumin/glob ulin mass ratioOrdered By: Pietro Turner on 09-24-2023 Albumin/Globulin [Mass ratio] 1.3 {ratio} 0.9-2.4 [facility] Serum or plasma calcium michelle urement (mass/volume)Ordered By: Pietro Turner on 09-24-2023 Calcium [Mass/Vol] 8.7 mg/dL 8.5-10.1 [facility] Serum or plasma cholesterol in HDL measurement (mass/volume)Ordered By: Pietro Turner on 09-24-2023 Cholesterol in HDL [Mass/Vol] 34 mg/dL >40 [facility] Comment on above: The drugs N-Acetylcy steine and Metamizole may falsely depress this assay. Reference Range HDL <40 mg/dL Low HDL Cholesterol HDL >or= 60 mg/dL High HDL Cholesterol Serum or plasma cholesterol in VLDL measurement (mass/volume)Ordered By: Pietro Turenr on 09-24-2023 Cholesterol in VLDL [Mass/Vol] 70 mg/dL 5-40 [facility] Serum or plasma creatinine m easurement (mass/volume)Ordered By: Pietro Turner on 09-24-2023 Creatinine [Mass/Vol] 1.15 mg/dL 0.70-1.30 [facility] Comment on above: The validity of the calculated GFR & GFRAA in patients over 70 years has not been determined. Clinical correlation is essential. Serum or plasma low density lipoprotein (LDL) cholesterol measurement (mass/volume)Ordered By: Pietro Turner on 09-24-2023 Cholesterol in LDL [Mass/Vol] 2 mg/dL 0-130 [facility] Serum or plasma testosterone free measurement (mass/volume)Ordered By: Pietro Turner on 09-24-2023 Testosterone Free [Mass/Vol] 11.91 ng/dL 5.00-21.00 [facility] Serum or plasma urea nitroge n measurement (mass/volume)Ordered By: Pietro Turner on 09-24-2023 Urea nitrogen [Mass/Vol] 23 mg/dL 7-18 [facility] Thin prep Papanicolaou smear with manual screeningOrdered By: Pietro Turner on 09-24-2023 Thin prep Papanicolaou smear with manual screening 25 U/L 15-37 [facility] Thin prep Papanicolaou smear with manual screening 8 5-15 [facility] Whole blood hemoglobin A1c/t otal hemoglobin ratio (mass fraction)Ordered By: Pietro Turner on 09-24-2023 HbA1c (Bld) [Mass fraction] 6.9 % 3.8-5.6 [facility] Comment on above: Normal < 5.7 % Predi abetic 5.7 - 6.4 % Diabetic >or= 6.5 % Please note range changes. Basophil percentageOrdered B y: Leslie Holley on 03-30-2023 Bilirubin [Mass/Vol] 0.50 mg/dL 0.20-1.00 [facility] Comment on above: For patients on eltr ombopag therapy, use of Dimension [place] TBIL is not recommended. Chloride [Moles/Vol] 109 mmol/L 98-107 [facility] Glucose [Mass/Vol] 210 mg/dL 74-106 [facility] Comment on above: Glucose result great er than or equal to 200 mg/dLsuggests DIABETES MELLITUS per A.D.A. criteria. Potassium [Moles/Vol] 4.0 mmol/L 3.5-5.1 [facility] Comment on above: Moderate Hemolysis, Result may be falsely increased. Protein [Mass/Vol] 7.2 g/dL 6.4-8.2 [facility] Sodium [Moles/Vol] 140 mmol/L 136-145 [facility] Laboratory - Chemistry and C hemistry - challengeOrdered By: Leslie Holley on 03-30-2023 ALP [Catalytic activity/Vol] 110 U/L 45-117 [facility] ALT [Catalytic activity/Vol] 40 U/L 16-61 [facility] CO2 [Moles/Vol] 24.0 mmol/L 21.0-32.0 [facility] Globulin (S) [Mass/Vol] 3.2 g/dL 2.2-4.2 [facility] Urea nitrogen/Creatinine [Mass ratio] 25.6 mg/mg 10-20 [facility] No Panel InformationOrdered By: Leslie Holley on 03-30-2023 Estimated GFR (MDRD) Amer 78 mL/min >60 [facility] Comment on above: GFR Calc Estimated GFR (MDRD) Non-Af Amer 65 mL/min >60 [facility] Comment on above: Non- GFR Calc Serum or plasma C reactive p rotein measurement (mass/volume)Ordered By: Leslie Holley on 03-30-2023 CRP [Mass/Vol] mg/L 0.0-3.0 [facility] Comment on above: C-Reactive Protein ( CRP) provides useful information for thediagnosis, therapy and monitoring of inflammatory processesand associated diseases. For the evaluation of Relative Riskfor Cardiovascular Disease, a High Sensitivity CRP (HSCRP)should be ordered. Serum or plasma albumin michelle urement (mass/volume)Ordered By: Leslie Holley on 03-30-2023 Albumin [Mass/Vol] 4.0 g/dL 3.2-5.0 [facility] Serum or plasma albumin/glob ulin mass ratioOrdered By: Leslie Holley on 03-30-2023 Albumin/Globulin [Mass ratio] 1.2 {ratio} 0.9-2.4 [facility] Serum or plasma calcium michelle urement (mass/volume)Ordered By: Leslie Holley on 03-30-2023 Calcium [Mass/Vol] 9.6 mg/dL 8.5-10.1 [facility] Serum or plasma creatinine m easurement (mass/volume)Ordered By: Leslie Holley on 03-30-2023 Creatinine [Mass/Vol] 1.21 mg/dL 0.70-1.30 [facility] Comment on above: The validity of the calculated GFR & GFRAA in patients over 70 years has not been determined. Clinical correlation is essential. Serum or plasma urea nitroge n measurement (mass/volume)Ordered By: Leslie Holley on 03-30-2023 Urea nitrogen [Mass/Vol] 31 mg/dL 7-18 [facility] Thin prep Papanicolaou smear with manual screeningOrdered By: Leslie Holley on 03-30-2023 Thin prep Papanicolaou smear with manual screening 32 U/L 15-37 [facility] Comment on above: Moderate Hemolysis, Result may be falsely increased. Thin prep Papanicolaou smear with manual screening 7 5-15 [facility] Absolute lymphocyte countOrd ered By: Dr. Turner on 01-22-2023 Lymphocytes Auto (Unsp spec) [#/Vol] 1.71 10*3/uL 0.83-4.51 [facility] Basophil percentageOrdered B y: Dr. Turner on 01-22-2023 Basophils/100 WBC (Bld) 0.7 % 0-1 [facility] Bilirubin [Mass/Vol] 0.80 mg/dL 0.20-1.00 [facility] Comment on above: For patients on eltr ombopag therapy, use of Dimension [place] TBIL is not recommended. Chloride [Moles/Vol] 106 mmol/L 98-107 [facility] Eosinophils/100 WBC (Bld) 6.3 % 0-5 [facility] Glucose [Mass/Vol] 113 mg/dL 74-106 [facility] Comment on above: Fasting Glucose resu lt from 100 to 125 mg/dL suggests IMPAIRED HOMEOSTASIS per A.D.A. criteria. Neutrophils (Bld) [#/Vol] 5.1 10*3/uL 2.0-7.7 [facility] Neutrophils/100 WBC (Bld) 62.8 % 47-70 [facility] Potassium [Moles/Vol] 3.9 mmol/L 3.5-5.1 [facility] Protein [Mass/Vol] 7.3 g/dL 6.4-8.2 [facility] Sodium [Moles/Vol] 137 mmol/L 136-145 [facility] Testosterone [Mass/Vol] 306 ng/dL 264-916 [facility] Comment on above: Adult male reference interval is based on a population ofhealthy nonobese males (BMI <30) between 19 and 39 yearsold. Rick et.al. JCEM 2017,102;8533-5311. PMID:[id number]. WBC (Bld) [#/Vol] 8.2 10*3/uL 4.4-11.0 [facility] Blood erythrocytes count (nu mber/volume)Ordered By: Dr. Turner on 01-22-2023 RBC (Bld) [#/Vol] 4.15 10*6/uL 4.6-6.2 [facility] Blood hemoglobin measurement (mass/volume)Ordered By: Dr. Turner on 01-22-2023 Hemoglobin (Bld) [Mass/Vol] 12.6 g/dL 13.0-16.5 [facility] Blood lymphocytes/100 leukoc ytesOrdered By: Dr. Turner on 01-22-2023 Lymphocytes/100 WBC (Bld) 20.9 % 19-41 [facility] Blood monocytes/100 leukocyt esOrdered By: Dr. Turner on 01-22-2023 Monocytes/100 WBC (Bld) 8.9 % 0-10 [facility] Blood platelet mean volumeOr dered By: Dr. Turner on 01-22-2023 Platelet mean volume (Bld) [Entitic vol] 9.4 fL 6.2-12.0 [facility] Determination of erythrocyte mean corpuscular volume (MCV)Ordered By: Dr. Turner on 01-22-2023 MCV (RBC) [Entitic vol] 90.1 fL 80-94 [facility] Free testosterone percentage Ordered By: Dr. Turner on 01-22-2023 Testosterone Free/Testosterone.tota l [Mass fraction] 3.19 % 1.50-4.20 [facility] Comment on above: Performed at: [address] [id number] Director: Geovanny Moore PhD, Phone: [phone] at: [facility] [id number] Director: Lyle Alves MD, Phone: [phone] Hematocrit Auto (Bld) [Volum e fraction]Ordered By: Dr. Turner on 01-22-2023 Hematocrit (Bld) [Volume fraction] 37.4 % 40-54 [facility] Iron measurement (mass/mass) Ordered By: Dr. Turner on 01-22-2023 Iron (Unsp spec) [Mass/Mass] 81 ug/dL 65-175 [facility] - Chemistry and C hemistry - challengeOrdered By: Dr. Turner on 01-22-2023 ALP [Catalytic activity/Vol] 108 U/L 45-117 [facility] ALT [Catalytic activity/Vol] 56 U/L 16-61 [facility] CO2 [Moles/Vol] 25.0 mmol/L 21.0-32.0 [facility] Cobalamin (Vitamin B12) [Mass/Vol] 701 pg/mL 211-911 [facility] Globulin (S) [Mass/Vol] 3.3 g/dL 2.2-4.2 [facility] Urea nitrogen/Creatinine [Mass ratio] 22.0 mg/mg 10-20 [facility] - Hematology and Cell countsOrdered By: Dr. Turner on 01-22-2023 Erythrocyte distribution width (RBC) [Entitic vol] 45.6 fL 35.1-43.9 [facility] Erythrocyte distribution width (RBC) [Ratio] 14.1 % 11.6-14.6 [facility] Immature granulocytes/100 WBC (Bld) 0.400 % 0.0-0.9 [facility] Comment on above: IG% - Immature Granu locytes (promyelocytes, myelocytes and metamyelocytes) > 1% indicates that a LEFT SHIFT is Present. MCH (RBC) [Entitic mass] 30.4 pg 27.0-32.0 [facility] Nucleated RBC/100 WBC (Bld) [Ratio] 0 % 0-5 [facility] MCHC Auto (RBC) [Mass/Vol]Or dered By: Dr. Turner on 01-22-2023 MCHC (RBC) [Mass/Vol] 33.7 g/dL 32-36 [facility] No Panel InformationOrdered By: Dr. Turner on 01-22-2023 Estimated GFR (MDRD) Amer 81 mL/min >60 [facility] Comment on above: GFR Calc Estimated GFR (MDRD) Non-Af Amer 67 mL/min >60 [facility] Comment on above: Non- GFR Calc Thyroid Stimulating Hormone (TSH) 3.33 uIU/mL 0.358-3.74 [facility] Total Iron Binding Capacity 378 ug/dL 250-450 [facility] Vitamin D 25-Hydroxy 34.5 ng/mL [facility] Comment on above: Vitamin D 25(OH) Sta tus Range Deficiency <20 ng/mL (50nmol/L) Insufficiency 20 - 30 ng/mL (50 - 75 nmol/L) Sufficiency 30 - 100 ng/mL (75 - 250 nmol/L) Toxicity >100 ng/mL (>250 nmol/L) Platelets bldOrdered By: Dr. Turner on 01-22-2023 Platelets (Bld) [#/Vol] 196 10*3/uL 150-450 [facility] Serum or plasma albumin michelle urement (mass/volume)Ordered By: Dr. Turner on 01-22-2023 Albumin [Mass/Vol] 4.0 g/dL 3.2-5.0 [facility] Serum or plasma albumin/glob ulin mass ratioOrdered By: Dr. Turner on 01-22-2023 Albumin/Globulin [Mass ratio] 1.2 {ratio} 0.9-2.4 [facility] Serum or plasma calcium michelle urement (mass/volume)Ordered By: Dr. Turner on 01-22-2023 Calcium [Mass/Vol] 9.1 mg/dL 8.5-10.1 [facility] Serum or plasma creatinine m easurement (mass/volume)Ordered By: Dr. Turner on 01-22-2023 Creatinine [Mass/Vol] 1.18 mg/dL 0.70-1.30 [facility] Comment on above: The validity of the calculated GFR & GFRAA in patients over 70 years has not been determined. Clinical correlation is essential. Serum or plasma iron saturat ion measurement (mass fraction)Ordered By: Dr. Turner on 01-22-2023 Iron saturation [Mass fraction] 21.4 % 15.0-55.0 [facility] Serum or plasma testosterone free measurement (mass/volume)Ordered By: Dr. Turner on 01-22-2023 Testosterone Free [Mass/Vol] 9.76 ng/dL 5.00-21.00 [facility] Serum or plasma urea nitroge n measurement (mass/volume)Ordered By: Dr. Turner on 01-22-2023 Urea nitrogen [Mass/Vol] 26 mg/dL 7-18 [facility] Thin prep Papanicolaou smear with manual screeningOrdered By: Dr. Turner on 01-22-2023 Thin prep Papanicolaou smear with manual screening 32 U/L 15-37 [facility] Thin prep Papanicolaou smear with manual screening 6 5-15 [facility] Whole blood hemoglobin A1c/t otal hemoglobin ratio (mass fraction)Ordered By: Dr. Turner on 01-22-2023 HbA1c (Bld) [Mass fraction] 6.8 % 3.8-5.6 [facility] Comment on above: Normal < 5.7 % Predi abetic 5.7 - 6.4 % Diabetic >or= 6.5 % Please note range changes. Absolute lymphocyte counton 10-18-2022 Lymphocytes Auto (Unsp spec) [#/Vol] 1.42 10*3/uL 0.83-4.51 [facility] Work Phone: Basophil percentageon 2021 Basophils/100 WBC (Bld) 0.9 % 0-1 [facility] Work Phone: Bilirubin [Mass/Vol] 0.70 mg/dL 0.20-1.00 [facility] Work Phone: Comment on above: For patients on eltr ombopag therapy, use of Dimension [place] TBIL is not recommended. Chloride [Moles/Vol] 103 mmol/L 98-107 [facility] Work Phone: Cholesterol [Mass/Vol] 109 mg/dL <200 [facility] Work Phone: Comment on above: <200 mg/dL Desirable 200-240 mg/dL Borderline >240 mg/dL High Risk Eosinophils/100 WBC (Bld) 5.4 % 0-5 [facility] Work Phone: Glucose [Mass/Vol] 175 mg/dL 74-106 [facility] Work Phone: Comment on above: Fasting Glucose resu lt greater than or equal to 126 mg/dL suggests DIABETES MELLITUS per A.D.A. criteria. Neutrophils (Bld) [#/Vol] 5.3 10*3/uL 2.0-7.7 [facility] Work Phone: Neutrophils/100 WBC (Bld) 66.0 % 47-70 [facility] Work Phone: Potassium [Moles/Vol] 4.4 mmol/L 3.5-5.1 [facility] Work Phone: Protein [Mass/Vol] 7.6 g/dL 6.4-8.2 [facility] Work Phone: Sodium [Moles/Vol] 136 mmol/L 136-145 [facility] Work Phone: Triglyceride [Mass/Vol] 212 mg/dL <199 [facility] Work Phone: Comment on above: The drugs N-Acetylcy steine and Metamizole may falsely depress this assay.Serum Triglycerides Reference Interval Normal <150 mg/dL Borderline high 150 - 199 mg/dL High 200 - 499 mg/dL Very High > or = 500 mg/dL WBC (Bld) [#/Vol] 8.0 10*3/uL 4.4-11.0 [facility] Work Phone: Blood erythrocytes count (nu mber/volume)on 10-18-2022 RBC (Bld) [#/Vol] 4.32 10*6/uL 4.6-6.2 [facility] Work Phone: Blood hemoglobin measurement (mass/volume)on 10-18-2022 Hemoglobin (Bld) [Mass/Vol] 13.3 g/dL 13.0-16.5 [facility] Work Phone: Blood lymphocytes/100 leukoc yteson 10-18-2022 Lymphocytes/100 WBC (Bld) 17.7 % 19-41 [facility] Work Phone: Blood monocytes/100 leukocyt eson 10-18-2022 Monocytes/100 WBC (Bld) 9.5 % 0-10 [facility] Work Phone: Blood platelet mean volumeon 10-18-2022 Platelet mean volume (Bld) [Entitic vol] 9.6 fL 6.2-12.0 [facility] Work Phone: Determination of erythrocyte mean corpuscular volume (MCV)on 10-18-2022 MCV (RBC) [Entitic vol] 88.0 fL 80-94 [facility] Work Phone: Hematocrit Auto (Bld) [Volum e fraction]on 10-18-2022 Hematocrit (Bld) [Volume fraction] 38.0 % 40-54 [facility] Work Phone: Laboratory - Chemistry and C hemistry - challengeon 10-18-2022 ALP [Catalytic activity/Vol] 111 U/L 45-117 [facility] Work Phone: ALT [Catalytic activity/Vol] 65 U/L 16-61 [facility] Work Phone: CO2 [Moles/Vol] 24.0 mmol/L 21.0-32.0 [facility] Work Phone: Free T4 [Mass/Vol] 0.98 ng/dL 0.76-1.46 [facility] Work Phone: Globulin (S) [Mass/Vol] 3.5 g/dL 2.2-4.2 [facility] Work Phone: Urea nitrogen/Creatinine [Mass ratio] 18.7 mg/mg 10-20 [facility] Work Phone: Laboratory - Hematology and Cell countson 10-18-2022 Erythrocyte distribution width (RBC) [Entitic vol] 44.0 fL 35.1-43.9 [facility] Work Phone: Erythrocyte distribution width (RBC) [Ratio] 13.8 % 11.6-14.6 [facility] Work Phone: Immature granulocytes/100 WBC (Bld) 0.500 % 0.0-0.9 [facility] Work Phone: Comment on above: IG% - Immature Granu locytes (promyelocytes, myelocytes and metamyelocytes) > 1% indicates that a LEFT SHIFT is Present. MCH (RBC) [Entitic mass] 30.8 pg 27.0-32.0 [facility] Work Phone: Nucleated RBC/100 WBC (Bld) [Ratio] 0 % 0-5 [facility] Work Phone: HbA1c (Bld) [Mass fraction] 7.2 % 4.2-6.3 [facility] Work Phone: [phone] MCHC Auto (RBC) [Mass/Vol]on 10-18-2022 MCHC (RBC) [Mass/Vol] 35.0 g/dL 32-36 [facility] Work Phone: No Panel Informationon 10-18 Estimated GFR (MDRD) Amer 91 mL/min >60 [facility] Work Phone: Comment on above: GFR Calc Estimated GFR (MDRD) Non-Af Amer 75 mL/min >60 [facility] Work Phone: Comment on above: Non- GFR Calc Free Triiodothyronine (T3) pg/dL 2.9 pg/mL 2.18-3.98 [facility] Work Phone: Prostate Specific Antigen Screen 0.20 ng/mL 0.00-4.00 [facility] Work Phone: Comment on above: This test was perfor med using the TPSA assay method for [employer] chemistry system. Values obtained with differentassay methods cannot be used interchangably.When changing PSA assays in the course of monitoring apatient, additional sequential testing should be carriedout to confirm baseline values. Thyroid Stimulating Hormone (TSH) 5.02 uIU/mL 0.358-3.74 [facility] Work Phone: Platelets bldon 10-18-2022 Platelets (Bld) [#/Vol] 238 10*3/uL 150-450 [facility] Work Phone: Serum or plasma albumin michelle urement (mass/volume)on 10-18-2022 Albumin [Mass/Vol] 4.1 g/dL 3.2-5.0 [facility] Work Phone: Serum or plasma albumin/glob ulin mass ratioon 10-18-2022 Albumin/Globulin [Mass ratio] 1.2 {ratio} 0.9-2.4 [facility] Work Phone: Serum or plasma calcium michelle urement (mass/volume)on 10-18-2022 Calcium [Mass/Vol] 9.3 mg/dL 8.5-10.1 [facility] Work Phone: Serum or plasma cholesterol in HDL measurement (mass/volume)on 10-18-2022 Cholesterol in HDL [Mass/Vol] 38 mg/dL >40 [facility] Work Phone: Comment on above: The drugs N-Acetylcy steine and Metamizole may falsely depress this assay. Reference Range HDL <40 mg/dL Low HDL Cholesterol HDL >or= 60 mg/dL High HDL Cholesterol Serum or plasma cholesterol in VLDL measurement (mass/volume)on 10-18-2022 Cholesterol in VLDL [Mass/Vol] 42 mg/dL 5-40 [facility] Work Phone: Serum or plasma creatinine m easurement (mass/volume)on 10-18-2022 Creatinine [Mass/Vol] 1.07 mg/dL 0.70-1.30 [facility] Work Phone: Comment on above: The validity of the calculated GFR & GFRAA in patients over 70 years has not been determined. Clinical correlation is essential. Serum or plasma low density lipoprotein (LDL) cholesterol measurement (mass/volume)on 10-18-2022 Cholesterol in LDL [Mass/Vol] 29 mg/dL 0-130 [facility] Work Phone: Serum or plasma urea nitroge n measurement (mass/volume)on 10-18-2022 Urea nitrogen [Mass/Vol] 20 mg/dL 7-18 [facility] Work Phone: Thin prep Papanicolaou smear with manual screeningon 10-18-2022 Thin prep Papanicolaou smear with manual screening 27 U/L 15-37 [facility] Work Phone: Thin prep Papanicolaou smear with manual screening 9 5-15 [facility] Work Phone: Basophil percentageon 2021 Testosterone [Mass/Vol] 268 ng/dL 264-916 [facility] Work Phone: Comment on above: Adult male reference interval is based on a population ofhealthy nonobese males (BMI <30) between 19 and 39 yearsold. chava Cabrera.al. JCEM 2017,102;7712-9894. PMID:[id number]. Free testosterone percentage on 09-27-2022 Testosterone Free/Testosterone.tota l [Mass fraction] 2.86 % 1.50-4.20 [facility] Work Phone: Comment on above: Performed at: - [address] [id number] Director: Geovanny Moore PhD, Phone: [phone] at: - [facility] [address] [id number] Director: Lyle Alves MD, Phone: [phone] Serum or plasma testosterone free measurement (mass/volume)on 09-27-2022 Testosterone Free [Mass/Vol] 7.66 ng/dL 5.00-21.00 [facility] Work Phone: Laboratory - Hematology and Cell countson 07-19-2022 HbA1c (Bld) [Mass fraction] 7.0 % 4.2-6.3 [facility] Work Phone: Absolute lymphocyte counton 05-08-2022 Lymphocytes Auto (Unsp spec) [#/Vol] 1.49 10*3/uL 0.83-4.51 [facility] Work Phone: Basophil percentageon 2021 Basophils/100 WBC (Bld) 0.8 % 0-1 [facility] Work Phone: Bilirubin [Mass/Vol] 0.40 mg/dL 0.20-1.00 [facility] Work Phone: Comment on above: For patients on eltr ombopag therapy, use of Dimension [place] TBIL is not recommended. Chloride [Moles/Vol] 104 mmol/L 98-107 [facility] Work Phone: Eosinophils/100 WBC (Bld) 4.4 % 0-5 [facility] Work Phone: Glucose [Mass/Vol] 151 mg/dL 74-106 [facility] Work Phone: Comment on above: Fasting Glucose resu lt greater than or equal to 126 mg/dL suggests DIABETES MELLITUS per A.D.A. criteria. Neutrophils (Bld) [#/Vol] 5.3 10*3/uL 2.0-7.7 [facility] Work Phone: [phone] Neutrophils/100 WBC (Bld) 67.5 % 47-70 [facility] Work Phone: [phone] Potassium [Moles/Vol] 3.9 mmol/L 3.5-5.1 [facility] Work Phone: [phone] Protein [Mass/Vol] 6.9 g/dL 6.4-8.2 [facility] Work Phone: Sodium [Moles/Vol] 140 mmol/L 136-145 [facility] Work Phone: [phone] Testosterone [Mass/Vol] 166 ng/dL 264-916 [facility] Work Phone: Comment on above: Adult male reference interval is based on a population ofhealthy nonobese males (BMI <30) between 19 and 39 yearsold. Rick et.al. JCEM 2017,102;6136-4370. PMID:[id number]. WBC (Bld) [#/Vol] 7.9 10*3/uL 4.4-11.0 [facility] Work Phone: Blood erythrocytes count (nu mber/volume)on 05-08-2022 RBC (Bld) [#/Vol] 3.77 10*6/uL 4.6-6.2 [facility] Work Phone: Blood hemoglobin measurement (mass/volume)on 05-08-2022 Hemoglobin (Bld) [Mass/Vol] 11.7 g/dL 13.0-16.5 [facility] Work Phone: Blood lymphocytes/100 leukoc yteson 05-08-2022 Lymphocytes/100 WBC (Bld) 18.9 % 19-41 [facility] Work Phone: Blood monocytes/100 leukocyt eson 05-08-2022 Monocytes/100 WBC (Bld) 8.0 % 0-10 [facility] Work Phone: Blood platelet mean volumeon 05-08-2022 Platelet mean volume (Bld) [Entitic vol] 9.8 fL 6.2-12.0 [facility] Work Phone: Determination of erythrocyte mean corpuscular volume (MCV)on 05-08-2022 MCV (RBC) [Entitic vol] 90.2 fL 80-94 [facility] Work Phone: Free testosterone percentage on 05-08-2022 Testosterone Free/Testosterone.tota l [Mass fraction] 2.11 % 1.50-4.20 [facility] Work Phone: Comment on above: Performed at: [address] [id number] Director: Geovanny Moore PhD, Phone: [phone] at: [facility] [id number] Director: Lyle Alves MD, Phone: [phone] Hematocrit Auto (Bld) [Volum e fraction]on 05-08-2022 Hematocrit (Bld) [Volume fraction] 34.0 % 40-54 [facility] Work Phone: Iron measurement (mass/mass) on 05-08-2022 Iron (Unsp spec) [Mass/Mass] 55 ug/dL 65-175 [facility] Work Phone: Laboratory - Chemistry and C hemistry - challengeon 05-08-2022 ALP [Catalytic activity/Vol] 103 U/L 45-117 [facility] Work Phone: ALT [Catalytic activity/Vol] 52 U/L 16-61 [facility] Work Phone: CO2 [Moles/Vol] 28.0 mmol/L 21.0-32.0 [facility] Work Phone: Globulin (S) [Mass/Vol] 3.0 g/dL 2.2-4.2 [facility] Work Phone: Urea nitrogen/Creatinine [Mass ratio] 20.8 mg/mg 10-20 [facility] Work Phone: Laboratory - Hematology and Cell countson 05-08-2022 Erythrocyte distribution width (RBC) [Entitic vol] 43.3 fL 35.1-43.9 [facility] Work Phone: Erythrocyte distribution width (RBC) [Ratio] 13.3 % 11.6-14.6 [facility] Work Phone: Immature granulocytes/100 WBC (Bld) 0.400 % 0.0-0.9 [facility] Work Phone: Comment on above: IG% - Immature Granu locytes (promyelocytes, myelocytes and metamyelocytes) > 1% indicates that a LEFT SHIFT is Present. MCH (RBC) [Entitic mass] 31.0 pg 27.0-32.0 [facility] Work Phone: Nucleated RBC/100 WBC (Bld) [Ratio] 0 % 0-5 [facility] Work Phone: MCHC Auto (RBC) [Mass/Vol]on 05-08-2022 MCHC (RBC) [Mass/Vol] 34.4 g/dL 32-36 [facility] Work Phone: No Panel Informationon 05-08 Estimated GFR (MDRD) Amer 92 mL/min >60 [facility] Work Phone: Comment on above: GFR Calc Estimated GFR (MDRD) Non-Af Amer 76 mL/min >60 [facility] Work Phone: Comment on above: Non- GFR Calc Total Iron Binding Capacity 351 ug/dL 250-450 [facility] Work Phone: Platelets bldon 05-08-2022 Platelets (Bld) [#/Vol] 200 10*3/uL 150-450 [facility] Work Phone: Serum or plasma albumin michelle urement (mass/volume)on 05-08-2022 Albumin [Mass/Vol] 3.9 g/dL 3.2-5.0 [facility] Work Phone: Serum or plasma albumin/glob ulin mass ratioon 05-08-2022 Albumin/Globulin [Mass ratio] 1.3 {ratio} 0.9-2.4 [facility] Work Phone: Serum or plasma calcium michelle urement (mass/volume)on 05-08-2022 Calcium [Mass/Vol] 9.4 mg/dL 8.5-10.1 [facility] Work Phone: Serum or plasma creatinine m easurement (mass/volume)on 05-08-2022 Creatinine [Mass/Vol] 1.06 mg/dL 0.70-1.30 [place] [facility] Work Phone: Comment on above: The validity of the calculated GFR & GFRAA in patients over 70 years has not been determined. Clinical correlation is essential. Serum or plasma iron saturat ion measurement (mass fraction)on 05-08-2022 Iron saturation [Mass fraction] 15.7 % 15.0-55.0 [facility] Work Phone: Serum or plasma testosterone free measurement (mass/volume)on 05-08-2022 Testosterone Free [Mass/Vol] 3.50 ng/dL 5.00-21.00 [facility] Work Phone: Serum or plasma urea nitroge n measurement (mass/volume)on 05-08-2022 Urea nitrogen [Mass/Vol] 22 mg/dL 7-18 [facility] Work Phone: Thin prep Papanicolaou smear with manual screeningon 05-08-2022 Thin prep Papanicolaou smear with manual screening 34 U/L 15-37 [facility] Work Phone: Thin prep Papanicolaou smear with manual screening 8 5-15 [facility] Work Phone: Whole blood hemoglobin A1c/t otal hemoglobin ratio (mass fraction)on 05-08-2022 HbA1c (Bld) [Mass fraction] 6.2 % 3.8-5.6 [facility] Work Phone: Comment on above: Normal < 5.7 % Predi abetic 5.7 - 6.4 % Diabetic >or= 6.5 % Please note range changes. Basophil percentageon 2021 Bilirubin [Mass/Vol] 0.50 mg/dL 0.20-1.00 [facility] Work Phone: Comment on above: For patients on eltr ombopag therapy, use of Dimension [place] TBIL is not recommended. Cholesterol [Mass/Vol] 99 mg/dL <200 [facility] Work Phone: Comment on above: <200 mg/dL Desirable 200-240 mg/dL Borderline >240 mg/dL High Risk Protein [Mass/Vol] 6.9 g/dL 6.4-8.2 [facility] Work Phone: Triglyceride [Mass/Vol] 157 mg/dL <199 [facility] Work Phone: Comment on above: The drugs N-Acetylcy steine and Metamizole may falsely depress this assay.Serum Triglycerides Reference Interval Normal <150 mg/dL Borderline high 150 - 199 mg/dL High 200 - 499 mg/dL Very High > or = 500 mg/dL Direct bilirubinon 2 Bilirubin.direct [Mass/Vol] 0.14 mg/dL 0.00-0.30 [facility] Work Phone: Laboratory - Chemistry and C hemistry - challengeon 04-24-2022 ALP [Catalytic activity/Vol] 115 U/L 45-117 [facility] Work Phone: ALT [Catalytic activity/Vol] 57 U/L 16-61 [facility] Work Phone: Globulin (S) [Mass/Vol] 3.1 g/dL 2.2-4.2 [facility] Work Phone: Serum or plasma albumin michelle urement (mass/volume)on 04-24-2022 Albumin [Mass/Vol] 3.8 g/dL 3.2-5.0 [facility] Work Phone: Serum or plasma cholesterol in HDL measurement (mass/volume)on 04-24-2022 Cholesterol in HDL [Mass/Vol] 41 mg/dL >40 [facility] Work Phone: Comment on above: The drugs N-Acetylcy steine and Metamizole may falsely depress this assay. Reference Range HDL <40 mg/dL Low HDL Cholesterol HDL >or= 60 mg/dL High HDL Cholesterol Serum or plasma cholesterol in VLDL measurement (mass/volume)on 04-24-2022 Cholesterol in VLDL [Mass/Vol] 31 mg/dL 5-40 [facility] Work Phone: Serum or plasma low density lipoprotein (LDL) cholesterol measurement (mass/volume)on 04-24-2022 Cholesterol in LDL [Mass/Vol] 27 mg/dL 0-130 [facility] Work Phone: Thin prep Papanicolaou smear with manual screeningon 04-24-2022 Thin prep Papanicolaou smear with manual screening 30 U/L 15-37 [facility] Work Phone: Comment on above: Slight Hemolysis, Re sult may be falsely increased. Absolute lymphocyte counton 02-16-2022 Lymphocytes Auto (Unsp spec) [#/Vol] 1.97 10*3/uL 0.83-4.51 [facility] Work Phone: Basophil percentageon 2021 Basophils/100 WBC (Bld) 0.9 % 0-1 [facility] Work Phone: Bilirubin [Mass/Vol] 0.60 mg/dL 0.20-1.00 [facility] Work Phone: Comment on above: For patients on eltr ombopag therapy, use of Dimension [place] TBIL is not recommended. Chloride [Moles/Vol] 105 mmol/L 98-107 [facility] Work Phone: Eosinophils/100 WBC (Bld) 4.7 % 0-5 [facility] Work Phone: Glucose [Mass/Vol] 129 mg/dL 74-106 [facility] Work Phone: Comment on above: Fasting Glucose resu lt greater than or equal to 126 mg/dL suggests DIABETES MELLITUS per A.D.A. criteria. Neutrophils (Bld) [#/Vol] 5.2 10*3/uL 2.0-7.7 [facility] Work Phone: Neutrophils/100 WBC (Bld) 61.2 % 47-70 [facility] Work Phone: Potassium [Moles/Vol] 4.2 mmol/L 3.5-5.1 [facility] Work Phone: [phone] Protein [Mass/Vol] 7.1 g/dL 6.4-8.2 [facility] Work Phone: Sodium [Moles/Vol] 138 mmol/L 136-145 [facility] Work Phone: WBC (Bld) [#/Vol] 8.4 10*3/uL 4.4-11.0 [facility] Work Phone: Blood erythrocytes count (nu mber/volume)on 02-16-2022 RBC (Bld) [#/Vol] 3.96 10*6/uL 4.6-6.2 [facility] Work [facility]: Blood hemoglobin measurement (mass/volume)on 02-16-2022 Hemoglobin (Bld) [Mass/Vol] 12.0 g/dL 13.0-16.5 [facility] Work Phone: Blood lymphocytes/100 leukoc yteson 02-16-2022 Lymphocytes/100 WBC (Bld) 23.4 % 19-41 [facility] Work Phone: Blood monocytes/100 leukocyt eson 02-16-2022 Monocytes/100 WBC (Bld) 9.3 % 0-10 [facility] Work Phone: Blood platelet mean volumeon 02-16-2022 Platelet mean volume (Bld) [Entitic vol] 9.3 fL 6.2-12.0 [facility] Work Phone: Determination of erythrocyte mean corpuscular volume (MCV)on 02-16-2022 MCV (RBC) [Entitic vol] 88.9 fL 80-94 [facility] Work Phone: [phone] Hematocrit Auto (Bld) [Volum e fraction]on 02-16-2022 Hematocrit (Bld) [Volume fraction] 35.2 % 40-54 [facility] Work Phone: Laboratory - Chemistry and C hemistry - challengeon 02-16-2022 ALP [Catalytic activity/Vol] 106 U/L 45-117 [facility] Work Phone: ALT [Catalytic activity/Vol] 58 U/L 16-61 [facility] Work Phone: [phone] CO2 [Moles/Vol] 27.0 mmol/L 21.0-32.0 [facility] Work Phone: Globulin (S) [Mass/Vol] 3.1 g/dL 2.2-4.2 [facility] Work Phone: Urea nitrogen/Creatinine [Mass ratio] 22.8 mg/mg 10-20 [facility] Work Phone: Laboratory - Hematology and Cell countson 02-16-2022 Erythrocyte distribution width (RBC) [Entitic vol] 43.9 fL 35.1-43.9 [facility] Work Phone: Erythrocyte distribution width (RBC) [Ratio] 13.5 % 11.6-14.6 [facility] Work Phone: Immature granulocytes/100 WBC (Bld) 0.500 % 0.0-0.9 [facility] Work Phone: Comment on above: IG% - Immature Granu locytes (promyelocytes, myelocytes and metamyelocytes) > 1% indicates that a LEFT SHIFT is Present. MCH (RBC) [Entitic mass] 30.3 pg 27.0-32.0 [facility] Work Phone: Nucleated RBC/100 WBC (Bld) [Ratio] 0 % 0-5 [facility] Work Phone: MCHC Auto (RBC) [Mass/Vol]on 02-16-2022 MCHC (RBC) [Mass/Vol] 34.1 g/dL 32-36 [facility] Work Phone: No Panel Informationon 02-16 Estimated GFR (MDRD) Amer 114 mL/min >60 [facility] Work Phone: Comment on above: GFR Calc Estimated GFR (MDRD) Non-Af Amer 94 mL/min >60 [facility] Work Phone: Comment on above: Non- GFR Calc Platelets bldon 02-16-2022 Platelets (Bld) [#/Vol] 203 10*3/uL 150-450 [facility] Work Phone: Serum or plasma albumin michelle urement (mass/volume)on 02-16-2022 Albumin [Mass/Vol] 4.0 g/dL 3.2-5.0 [facility] Work Phone: Serum or plasma albumin/glob ulin mass ratioon 02-16-2022 Albumin/Globulin [Mass ratio] 1.3 {ratio} 0.9-2.4 [facility] Work Phone: Serum or plasma calcium michelle urement (mass/volume)on 02-16-2022 Calcium [Mass/Vol] 9.2 mg/dL 8.5-10.1 [facility] Work Phone: Serum or plasma creatinine m easurement (mass/volume)on 02-16-2022 Creatinine [Mass/Vol] 0.88 mg/dL 0.70-1.30 [facility] Work Phone: Comment on above: The validity of the calculated GFR & GFRAA in patients over 70 years has not been determined. Clinical correlation is essential. Serum or plasma urea nitroge n measurement (mass/volume)on 02-16-2022 Urea nitrogen [Mass/Vol] 20 mg/dL 7-18 [facility] Work Phone: Thin prep Papanicolaou smear with manual screeningon 02-16-2022 Thin prep Papanicolaou smear with manual screening 41 U/L 15-37 [facility] Work Phone: Thin prep Papanicolaou smear with manual screening 6 5-15 [facility] Work Phone: No Panel Informationon 01-11 MTHFR Thermolabile Variant DNA Anal Comment . 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 See Additional Clinical Informationand Comments.Additional Clinical Information:Hyperhomocysteinemia is multifactorial involving genetic,clinical, and environmental risk factors. Reduced enzymeactivity of methylenetetrahydrofolate reductase (MTHFR) robin genetic risk factor for hyperhomocysteinemia,particularly when serum folate levels are low. There aretwo common variants in the MTHFR gene that can decreaseenzyme activity; c.665C>T (p. [id number]), legacy [id number], and c.1286A>C (p. [id number]), legacy name [id number].These variants do not independently increase risk ofconditions related to hyperhomocysteinemia in the absenceof elevated homocysteine levels. Measurement of totalplasma homocysteine is recommended. Patients should sharetheir MTHFR genotype with physicians who are makingdecisions regarding chemotherapy treatments that depend onfolate, such as methotrexate.Guidelines do not recommend genotyping of these two MTHFRvariants in the evaluation of venous thrombosis orobstetric risk due to limited evidence of clinical utility(PMID: 16401896). Comments:Genetic Coordinators are available for health careproviders to discuss results at [phone] Details:Variants Analyzed: c.665C>T (p. [id number]), legacy name:[id number] and c.1286A>C (p. [id number]), legacy name: [id number]/Limitations:DNA analysis of the MTHFR gene was performed by PCRamplification followed by restriction enzyme analysis. Thediagnostic sensitivity is >99%. Results must be combinedwith clinical information for the most accurateinterpretation. Molecular-based testing is highlyaccurate, but as in any laboratory test, diagnosticerrors may occur. False positive or false negative resultsmay occur for reasons that include genetic variants, bloodtransfusions, bone marrow transplantation, somatic ortissue-specific mosaicism, mislabeled samples, or erroneousrepresentation of family relationships.This test was developed and its performancecharacteristics determined by [facility]. It has not beencleared or approved by the Food and Drug Administration.References:Rachelle SE, Malachi CJ, Yoan BROOKS. [facility] PracticeGuideline: lack of evidence for MTHFR polymorphism testing.Amanda Med. 2012;15(2):153-6. doi: 10.1038/gim.2012.165.Epub 2012Oct 31. PMID: 17530502.[place] [employer]'Committee on Practice Bulletins-Obstetrics. [facility] PracticeBulletin No. 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 2018 Apr;132(1):e18-e34. doi:10.1097/AOG.[id number]. Erratum in: Obstet Gynecol.2018 Jul;132(4):1069. PMID: 10693519.Amanda Marcus, PhD, Pamela Ca, PhD, Carina Liz, PhD, Bhavya Golden, PhD, FACMGW. Anna Davis, PhD, Josselyn Christy, PhD, Missy Buckley, PhD, FACMGPerformed at: TG - [facility] [id number] [place], [place] [id number] Director: Ryan Washington [facility], Phone: [phone] Thin prep Papanicolaou smear with manual screeningon 01-11-2022 Thin prep Papanicolaou smear with manual screening Not Reportable [facility] Work Phone: Basophil percentageon 2021 Testosterone [Mass/Vol] 232 ng/dL [facility] Work Phone: Comment on above: Adult male reference interval is based on a population ofhealthy nonobese males (BMI <30) between 19 and 39 yearsold. cahva Cabrera.al. JCEM 2017,102;9575-8157. PMID:[id number]. Free testosterone percentage on 12-22-2021 Testosterone Free/Testosterone.tota l [Mass fraction] 3.43 % [facility] Work Phone: Comment on above: Performed at: - [address] [id number] Director: Geovanny Moore PhD, Phone: [phone] at: [facility] [id number] Director: Lyle Alves MD, Phone: [phone] Iron measurement (mass/mass) on 12-22-2021 Iron (Unsp spec) [Mass/Mass] 93 ug/dL 65-175 [facility] Work Phone: No Panel Informationon 12-22 Total Iron Binding Capacity 394 ug/dL 250-450 [facility] Work Phone: Vitamin D 25-Hydroxy 23.3 ng/mL [facility] Work Phone: Comment on above: Vitamin D 25(OH) Sta tus Range Deficiency <20 ng/mL (50nmol/L) Insufficiency 20 - 30 ng/mL (50 - 75 nmol/L) Sufficiency 30 - 100 ng/mL (75 - 250 nmol/L) Toxicity >100 ng/mL (>250 nmol/L) Serum or plasma iron saturat ion measurement (mass fraction)on 12-22-2021 Iron saturation [Mass fraction] 23.6 % 15.0-55.0 [facility] Work Phone: Serum or plasma testosterone free measurement (mass/volume)on 12-22-2021 Testosterone Free [Mass/Vol] 7.96 ng/dL [facility] Work Phone: Absolute lymphocyte counton 10-31-2021 Lymphocytes Auto (Unsp spec) [#/Vol] 1.04 10*3/uL 0.83-4.51 [facility] Work Phone: Activated partial thrombopla stin time (aPTT) in platelet poor plasma by coagulation aon 10-31-2021 aPTT Coag (PPP) [Time] 38.4 s 24.1-36.2 [facility] Work Phone: Comment on above: Previous reported re sult: 28.2 SecondsEdited by: TPHBRIAN on 10/31/21:1314 AMENDED REPORT 10/31/21 1314 PTT previously reported as: 28.2 Seconds Basophil percentageon 2021 Basophils/100 WBC (Bld) 0.9 % 0-1 [facility] Work Phone: Chloride [Moles/Vol] 103 mmol/L 98-107 [facility] Work Phone: Eosinophils/100 WBC (Bld) 3.1 % 0-5 [facility] Work Phone: [phone] Glucose [Mass/Vol] 153 mg/dL 74-106 [facility] Work Phone: Comment on above: Fasting Glucose resu lt greater than or equal to 126 mg/dL suggests DIABETES MELLITUS per A.D.A. criteria.Please note revised GLUCOSE reference range effective 2017. Neutrophils (Bld) [#/Vol] 5.2 10*3/uL 2.0-7.7 [facility] Work Phone: [phone] Neutrophils/100 WBC (Bld) 74.5 % 47-70 [facility] Work Phone: Potassium [Moles/Vol] 3.8 mmol/L 3.5-5.1 [facility] Work Phone: Sodium [Moles/Vol] 137 mmol/L 136-145 [facility] Work Phone: [phone] WBC (Bld) [#/Vol] 7.0 10*3/uL 4.4-11.0 [facility] Work Phone: Blood erythrocytes count (nu mber/volume)on 10-31-2021 RBC (Bld) [#/Vol] 4.32 10*6/uL 4.6-6.2 [facility] Work Phone: [phone] Blood hemoglobin measurement (mass/volume)on 10-31-2021 Hemoglobin (Bld) [Mass/Vol] 12.7 g/dL 13.0-16.5 [facility] Work Phone: Blood lymphocytes/100 leukoc yteson 10-31-2021 Lymphocytes/100 WBC (Bld) 14.8 % 19-41 [facility] Work Phone: Blood monocytes/100 leukocyt eson 10-31-2021 Monocytes/100 WBC (Bld) 6.1 % 0-10 [facility] Work Phone: Blood platelet mean volumeon 10-31-2021 Platelet mean volume (Bld) [Entitic vol] 9.4 fL 6.2-12.0 [facility] Work Phone: Determination of erythrocyte mean corpuscular volume (MCV)on 10-31-2021 MCV (RBC) [Entitic vol] 84.5 fL 80-94 [facility] Work Phone: Hematocrit Auto (Bld) [Volum e fraction]on 10-31-2021 Hematocrit (Bld) [Volume fraction] 36.5 % 40-54 [facility] Work Phone: INR in Blood by Coagulation assayon 10-31-2021 INR Coag (Bld) [Relative time] 1.1 {INR} [facility] Work Phone: Comment on above: Previous reported re sult: 1.1 Edited by: HANNY on 10/31/21:1314 AMENDED REPORT 10/31/21 1314 INR previously reported as: 1.1 Laboratory - Chemistry and C hemistry - challengeon 10-31-2021 CO2 [Moles/Vol] 25.0 mmol/L 21.0-32.0 [facility] Work Phone: Urea nitrogen/Creatinine [Mass ratio] 23.3 mg/mg 10-20 [facility] Work Phone: Laboratory - Coagulationon 0 10-31-2021 PT Coag (PPP) [Time] 13.9 s 11.7-14.9 [facility] Work Phone: Comment on above: Previous reported re sult: 13.3 SECONDSEdited by: HANNY on 10/31/21:1314 AMENDED REPORT 10/31/21 1314 PROTIME previously reported as: 13.3 SECONDS Laboratory - Hematology and Cell countson 10-31-2021 Erythrocyte distribution width (RBC) [Entitic vol] 39.5 fL 35.1-43.9 [facility] Work Phone: Erythrocyte distribution width (RBC) [Ratio] 13.1 % 11.6-14.6 [facility] Work Phone: Immature granulocytes/100 WBC (Bld) 0.600 % 0.0-0.9 [facility] Work Phone: Comment on above: IG% - Immature Granu locytes (promyelocytes, myelocytes and metamyelocytes) > 1% indicates that a LEFT SHIFT is Present. MCH (RBC) [Entitic mass] 29.4 pg 27.0-32.0 [facility] Work Phone: Nucleated RBC/100 WBC (Bld) [Ratio] 0 % 0-5 [facility] Work Phone: MCHC Auto (RBC) [Mass/Vol]on 10-31-2021 MCHC (RBC) [Mass/Vol] 34.8 g/dL 32-36 [facility] Work Phone: No Panel Informationon 10-31 Estimated GFR (MDRD) Amer 117 mL/min >60 [facility] Work Phone: Comment on above: GFR Calc Estimated GFR (MDRD) Non-Af Amer 97 mL/min >60 [facility] Work Phone: Comment on above: Non- GFR Calc Platelets bldon 10-31-2021 Platelets (Bld) [#/Vol] 238 10*3/uL 150-450 [facility] Work Phone: Serum or plasma calcium michelle urement (mass/volume)on 10-31-2021 Calcium [Mass/Vol] 9.3 mg/dL 8.5-10.1 [facility] Work Phone: Serum or plasma creatinine m easurement (mass/volume)on 10-31-2021 Creatinine [Mass/Vol] 0.86 mg/dL 0.70-1.30 [facility] Work Phone: Comment on above: The validity of the calculated GFR & GFRAA in patients over 70 years has not been determined. Clinical correlation is essential. Serum or plasma urea nitroge n measurement (mass/volume)on 10-31-2021 Urea nitrogen [Mass/Vol] 20 mg/dL 7-18 [facility] Work Phone: Thin prep Papanicolaou smear with manual screeningon 10-31-2021 Thin prep Papanicolaou smear with manual screening 9 5-15 [facility] Work Phone: [id number] By: SYSTEM SYSTEM on 09-21-2021 Cobalamin (Vitamin B12) [Mass/Vol] 542 pg/mL Normal 211-911 [facility] Comment on above: Performed By: #### C BC, ADIFF, ANEU, PBNP #### [place] [address] #### LIPID, CMP, GFR #### [place] [address] FERROrdered By: SYSTEM SYSTE M on 09-21-2021 Ferritin [Mass/Vol] 53.7 ng/mL Normal 26.0-388.0 AD [facility] Comment on above: Performed By: #### C BC, ADIFF, ANEU, PBNP #### [place] [address] #### LIPID, CMP, GFR #### [place] [address] TRFOrdered By: SYSTEM SYSTEM on 09-21-2021 Transferrin [Mass/Vol] 299 mg/dL Normal 202-336 ADM Comment on above: Performed By: #### C BC, ADIFF, ANEU, PBNP #### [place] [address] #### LIPID, CMP, GFR #### [place] [address] .Auto DiffOrdered By: Glory Marinelli on 09-20-2021 Basophil, Absolute 0.00 103/mcL Normal 0.00-0.19 AO A uto Heme SS Comment on above: Performed By: #### C BC, ADIFF, ANEU, PBNP #### [place] [address] #### LIPID, CMP, GFR #### [address] [address] Basophils/100 WBC (Bld) 0.6 % Normal 0.0-2.5 AO Auto Heme SS Comment on above: Performed By: #### C BC, ADIFF, ANEU, PBNP #### [place] [address] #### LIPID, CMP, GFR #### [address] [address] Eosinophil, Absolute 0.40 103/mcL Normal 0.00-0.40 AO Auto Heme SS Comment on above: Performed By: #### C BC, ADIFF, ANEU, PBNP #### [place] [address] #### LIPID, CMP, GFR #### [address] [address] Eosinophils/100 WBC (Bld) 5.5 % Normal 0.0-7.0 AO Auto Heme SS Comment on above: Performed By: #### C BC, ADIFF, ANEU, PBNP #### [place] [address] #### LIPID, CMP, GFR #### [address] [address] Lymphocyte, Absolute 1.00 103/mcL Normal 0.77-3.85 AO Auto Heme SS Comment on above: Performed By: #### C BC, ADIFF, ANEU, PBNP #### [place] [address] #### LIPID, CMP, GFR #### [address] [address] Lymphocytes/100 WBC (Bld) 15.6 % Normal 10.0-50.0 AO Auto Heme SS Comment on above: Performed By: #### C BC, ADIFF, ANEU, PBNP #### [address] [address] #### LIPID, CMP, GFR #### [address] [address] Monocyte, Absolute 0.60 103/mcL Normal 0.15-1.00 AO A uto Heme SS Comment on above: Performed By: #### C BC, ADIFF, ANEU, PBNP #### [place] [address] #### LIPID, CMP, GFR #### [address] [address] Monocytes/100 WBC (Bld) 8.6 % Normal 1.7-13.0 AO Auto Heme SS Comment on above: Performed By: #### C BC, ADIFF, ANEU, PBNP #### [place] [address] #### LIPID, CMP, GFR #### [address] [address] Neutrophils/100 WBC (Bld) 69.7 % Normal 37.0-80.0 AO Auto Heme SS Comment on above: Performed By: #### C BC, ADIFF, ANEU, PBNP #### [place] [address] #### LIPID, CMP, GFR #### [address] [address] .GFROrdered By: CHANDAN Wilkins on 09-20-2021 GFR 100 ml/min/1.73sqm Normal AO Chemistry S Comment on above: Result Comment: GFR Population mean for , Non- Americans Ages 20-29 = 116 mL/min/1.73 sq.m. Ages 30-39 = 107 mL/min/1.73 sq.m. Ages 40-49 = 99 mL/min/1.73 sq.m. Ages 50-59 = 93 mL/min/1.73 sq.m. Ages 60-69 = 85 mL/min/1.73 sq.m. Ages 70+ = 75 mL/min/1.73 sq.m. Chronic Kidney Disease: Less than 60 mL/min/1.73 square meters End Stage Renal Disease: Less than 15 mL/min/1.73 square meters Performed By: #### C BC, ADIFF, ANEU, PBNP #### [place] [id number] #### LIPID, CMP, GFR #### [address] [address] GFR Non- 82 ml/min/1.73sqm Normal AO Chemistry S Comment on above: Result Comment: GFR Population mean for , Non- Americans Ages 20-29 = 116 mL/min/1.73 sq.m. Ages 30-39 = 107 mL/min/1.73 sq.m. Ages 40-49 = 99 mL/min/1.73 sq.m. Ages 50-59 = 93 mL/min/1.73 sq.m. Ages 60-69 = 85 mL/min/1.73 sq.m. Ages 70+ = 75 mL/min/1.73 sq.m. Chronic Kidney Disease: Less than 60 mL/min/1.73 square meters End Stage Renal Disease: Less than 15 mL/min/1.73 square meters Performed By: #### C BC, ADIFF, ANEU, PBNP #### [place] [address] #### LIPID, CMP, GFR #### [address] [address] .NEUABSOrdered By: Glory ann on 09-20-2021 Neutrophil, Absolute 4.50 103/mcL Normal 2.85-6.16 AO Auto Heme SS Comment on above: Performed By: #### C BC, ADIFF, ANEU, PBNP #### [place] [id number] #### LIPID, CMP, GFR #### [address] [address] [id number] By: Neisha viramontes on 09-20-2021 HbA1c (Bld) [Mass fraction] 7.0 % High 4.3-6.4 AO ADM SS Comment on above: Performed By: #### C BC, ADIFF, ANEU, PBNP #### [place] [address] #### LIPID, CMP, GFR #### [place] [address] CBCOrdered By: Glory Marinelli on 09-20-2021 Erythrocyte distribution width (RBC) [Ratio] 15.6 % High 11.5-14.5 AO Auto Heme SS Comment on above: Performed By: #### C BC, ADIFF, ANEU, PBNP #### [place] [address] #### LIPID, CMP, GFR #### [place] [address] Hematocrit (Bld) [Volume fraction] 33.2 % Low 42.0-52.0 AO Auto Heme SS Comment on above: Performed By: #### C BC, ADIFF, ANEU, PBNP #### [place] [address] #### LIPID, CMP, GFR #### [place] [address] MCH (RBC) [Entitic mass] 30.2 pg Normal 27.0-31.2 AO Auto Heme SS Comment on above: Performed By: #### C BC, ADIFF, ANEU, PBNP #### [place] [address] #### LIPID, CMP, GFR #### [place] [address] MCV (RBC) [Entitic vol] 84.8 fL Normal 80.0-94.0 AO Auto Heme SS Comment on above: Performed By: #### C BC, ADIFF, ANEU, PBNP #### [place] [address] #### LIPID, CMP, GFR #### [place] [address] Platelet mean volume (Bld) [Entitic vol] 7.5 fL Normal 7.4-10.4 AO Auto Heme SS Comment on above: Performed By: #### C BC, ADIFF, ANEU, PBNP #### [place] [address] #### LIPID, CMP, GFR #### [place] [address] CBCon 09-20-2021 Hgb 11.8 G/dL Low 14.0-18.0 [facility] ([place]) Comment on above: Performed By: #### C BC, ADIFF, ANEU, PBNP #### [place] [address] #### LIPID, CMP, GFR #### [place] [address] MCHC 35.6 G/dL High 31.8-35.4 [facility] ([place]) Comment on above: Performed By: #### C BC, ADIFF, ANEU, PBNP #### [place] [address] #### LIPID, CMP, GFR #### [place] [address] Platelet 222 10 3/mcL Normal 130-400 [facility] ([place]) Comment on above: Performed By: #### C BC, ADIFF, ANEU, PBNP #### [place] [address] #### LIPID, CMP, GFR #### [place] [address] RBC 3.92 10 6/mcL Low 4.04-6.13 [facility] ([place]) Comment on above: Performed By: #### C BC, ADIFF, ANEU, PBNP #### [place] [address] #### LIPID, CMP, GFR #### [place] [address] WBC 6.40 10 3/mcL Normal 4.60-10.80 [facility] ([place]) Comment on above: Performed By: #### C BC, ADIFF, ANEU, PBNP #### [place] [address] #### LIPID, CMP, GFR #### [address] [address] CMPon 09-20-2021 Albumin Level 4.2 G/dL Normal 3.5-5.0 [facility] ([place]) Comment on above: Performed By: #### C BC, ADIFF, ANEU, PBNP #### [address] [address] #### LIPID, CMP, GFR #### [address] [address] ALT [Catalytic activity/Vol] 38 U/L Normal 16-63 [facility] ([place]) Comment on above: Performed By: #### C BC, ADIFF, ANEU, PBNP #### [place] [address] #### LIPID, CMP, GFR #### [address] [address] AST [Catalytic activity/Vol] 19 U/L Normal 10-40 [facility] ([place]) Comment on above: Performed By: #### C BC, ADIFF, ANEU, PBNP #### [place] [address] #### LIPID, CMP, GFR #### [address] [address] Bili Total 0.7 mg/dL Normal 0.2-1.0 [facility] ([place]) Comment on above: Result Comment: Use of this assay is not recommended for patients undergoing treatment with eltrombopag due to the potential for falsely elevated results. Performed By: #### C BC, ADIFF, ANEU, PBNP #### [address] [address] #### LIPID, CMP, GFR #### [address] [address] BUN/Creatinine Ratio 16 ratio Normal 7-27 [facility] ([place]) Comment on above: Performed By: #### C BC, ADIFF, ANEU, PBNP #### [place] [address] #### LIPID, CMP, GFR #### [address] [address] Total Protein 7.1 G/dL Normal 6.4-8.2 [facility] ([place]) Comment on above: Performed By: #### C BC, ADIFF, ANEU, PBNP #### [address] [address] #### LIPID, CMP, GFR #### [address] [address] CMPOrdered By: Neisha viramontes on 09-20-2021 Albumin/Globulin [Mass ratio] 1.4 {ratio} Normal 1.1-2.5 AO ADM SS Comment on above: Performed By: #### C BC, ADIFF, ANEU, PBNP #### [place] [id number] #### LIPID, CMP, GFR #### [address] [address] ALP [Catalytic activity/Vol] 115 U/L Normal 40-135 AO ADM SS Comment on above: Performed By: #### C BC, ADIFF, ANEU, PBNP #### [place] [address] #### LIPID, CMP, GFR #### [address] [address] Calcium [Mass/Vol] 9.1 mg/dL Normal 8.4-10.2 AO ADM SS Comment on above: Performed By: #### C BC, ADIFF, ANEU, PBNP #### [place] [address] #### LIPID, CMP, GFR #### [address] [address] Chloride [Moles/Vol] 102 mmol/L Normal 98-107 AO A DM SS Comment on above: Performed By: #### C BC, ADIFF, ANEU, PBNP #### [address] [address] #### LIPID, CMP, GFR #### [address] [address] CO2 [Moles/Vol] 28 mmol/L Normal 22-29 AO ADM SS Comment on above: Performed By: #### C BC, ADIFF, ANEU, PBNP #### [place] [address] #### LIPID, CMP, GFR #### [place] [address] Creatinine [Mass/Vol] 0.94 mg/dL Normal 0.70-1.30 AO ADM SS Comment on above: Performed By: #### C BC, ADIFF, ANEU, PBNP #### [place] [address] #### LIPID, CMP, GFR #### [place] [address] Electrolyte Balance 10.0 mEq/L Normal AO AD M SS Comment on above: Performed By: #### C BC, ADIFF, ANEU, PBNP #### [place] [address] #### LIPID, CMP, GFR #### [place] [address] Globulin 2.9 G/dL Normal AO ADM SS Comment on above: Performed By: #### C BC, ADIFF, ANEU, PBNP #### [place] [address] #### LIPID, CMP, GFR #### [place] [address] Glucose [Mass/Vol] 156 mg/dL High 70-105 AO ADM SS Comment on above: Performed By: #### C BC, ADIFF, ANEU, PBNP #### [place] [address] #### LIPID, CMP, GFR #### [place] [address] Potassium [Moles/Vol] 4.6 mmol/L Normal 3.5-5.1 AO ADM SS Comment on above: Performed By: #### C BC, ADIFF, ANEU, PBNP #### [place] [address] #### LIPID, CMP, GFR #### [address] [address] Sodium [Moles/Vol] 140 mmol/L Normal 136-145 AO ADM SS Comment on above: Performed By: #### C BC, ADIFF, ANEU, PBNP #### [address] [address] #### LIPID, CMP, GFR #### [place] [address] Urea nitrogen [Mass/Vol] 15 mg/dL Normal 7-18 AO ADM SS Comment on above: Performed By: #### C BC, ADIFF, ANEU, PBNP #### [address] [address] #### LIPID, CMP, GFR #### [place] [address] FEOrdered By: Neisha zhu on 09-20-2021 Iron [Mass/Vol] 59 ug/dL Low 65-175 AO ADM SS Comment on above: Performed By: #### C BC, ADIFF, ANEU, PBNP #### [address] [address] #### LIPID, CMP, GFR #### [place] [address] IBCon 09-20-2021 TIBC 363 mcg/dL Normal 250-450 [facility] ([place]) Comment on above: Performed By: #### C BC, ADIFF, ANEU, PBNP #### [place] [address] #### LIPID, CMP, GFR #### [place] [address] LABORATORYOrdered By: Jarred Metcalf on 09-20-2021 Albumin BCP dye [Mass/Vol] 4.2 G/dL Invalid Interpretation Code 3.5 - 5.0 G/dL AO ADM SS ALT With P-5'-P [Catalytic activity/Vol] 38 U/L Invalid Interpretation Code 16 - 63 U/L AO ADM SS AST With P-5'-P [Catalytic activity/Vol] 19 U/L Invalid Interpretation Code 10 - 40 U/L AO ADM SS Bilirubin [Mass/Vol] 0.7 mg/dL Invalid Interpretation Code 0.2 - 1.0 mg/dL AO ADM SS Iron binding capacity [Mass/Vol] 363 mcg/dL Invalid Interpretation Code 250 - 450 mcg/dL AO ADM SS Protein [Mass/Vol] 7.1 G/dL Invalid Interpretation Code 6.4 - 8.2 G/dL AO ADM SS Urea nitrogen/Creatinine [Mass ratio] 16 ratio Invalid Interpretation Code 7 - 27 ratio AO ADM SS LABORATORYOrdered By: Glory Marinelli on 09-20-2021 Hemoglobin (Bld) [Mass/Vol] 11.8 G/dL Invalid Interpretation Code 14.0 - 18.0 G/dL AO Auto Heme SS MCHC (RBC) [Mass/Vol] 35.6 G/dL Invalid Interpretation Code 31.8 - 35.4 G/dL AO Auto Heme SS Platelets (Bld) [#/Vol] 222 103/mcL Invalid Interpretation Code 130 - 400 10^3/mcL AO Auto Heme SS RBC (Bld) [#/Vol] 3.92 106/mcL Invalid Interpretation Code 4.04 - 6.13 10^6/mcL AO Auto Heme SS WBC (Bld) [#/Vol] 6.40 103/mcL Invalid Interpretation Code 4.60 - 10.80 10^3/mcL AO Auto Heme SS VIDHOrdered By: Neisha torres on 09-20-2021 Vit. D 25-Hydroxy 16.2 ng/mL Normal AO ADM SS Comment on above: Result Comment: Inte rpretive Values Based on Total 25(OH) Vitamin D: Deficient <20 ng/mL Insufficient 20 - <30 ng/mL Sufficient 30-100 ng/mL Performed By: #### C BC, ROZ, ANEU, PBNP #### [address] [address] #### LIPID, CMP, GFR #### [address] [address] .Auto Diffon 08-16-2021 Basophil, Absolute 0.10 10 3/mcL Normal 0.00-0.19 [facility] ([place]) Comment on above: Performed By: #### C BC, ROZ, ANEU, PBNP #### [place] [address] #### LIPID, CMP, GFR #### [address] [address] Basophils/100 WBC (Bld) 1.0 % Normal 0.0-2.5 [facility] ([place]) Comment on above: Performed By: #### C BC, ADIFF, ANEU, PBNP #### [place] [address] #### LIPID, CMP, GFR #### [address] [address] Eosinophil, Absolute 0.60 10 3/mcL High 0.00-0.40 [facility] ([place]) Comment on above: Performed By: #### C BC, ADIFF, ANEU, PBNP #### [place] [address] #### LIPID, CMP, GFR #### [address] [address] Eosinophils/100 WBC (Bld) 8.4 % High 0.0-7.0 [facility] ([place]) Comment on above: Performed By: #### C BC, ADIFF, ANEU, PBNP #### [place] [address] #### LIPID, CMP, GFR #### [address] [address] Lymphocyte, Absolute 1.40 10 3/mcL Normal 0.77-3.85 [facility] ([place]) Comment on above: Performed By: #### C BC, ADIFF, ANEU, PBNP #### [place] [address] #### LIPID, CMP, GFR #### [address] [address] Lymphocytes/100 WBC (Bld) 19.9 % Normal 10.0-50.0 [facility] ([place]) Comment on above: Performed By: #### C BC, ADIFF, ANEU, PBNP #### [place] [address] #### LIPID, CMP, GFR #### [address] [address] Monocyte, Absolute 0.70 10 3/mcL Normal 0.15-1.00 [facility] ([place]) Comment on above: Performed By: #### C BC, ADIFF, ANEU, PBNP #### [address] [address] #### LIPID, CMP, GFR #### [address] [address] Monocytes/100 WBC (Bld) 9.7 % Normal 1.7-13.0 [facility] ([place]) Comment on above: Performed By: #### C BC, ADIFF, ANEU, PBNP #### [address] [address] #### LIPID, CMP, GFR #### [address] [address] Neutrophils/100 WBC (Bld) 61.0 % Normal 37.0-80.0 [facility] ([place]) Comment on above: Performed By: #### C BC, ADIFF, ANEU, PBNP #### [address] [address] #### LIPID, CMP, GFR #### [address] [address] .GFRon 08-16-2021 GFR 94 ml/min/1.73sqm Normal [facility] ([place]) Comment on above: Result Comment: GFR Population mean for , Non- Americans Ages 20-29 = 116 mL/min/1.73 sq.m. Ages 30-39 = 107 mL/min/1.73 sq.m. Ages 40-49 = 99 mL/min/1.73 sq.m. Ages 50-59 = 93 mL/min/1.73 sq.m. Ages 60-69 = 85 mL/min/1.73 sq.m. Ages 70+ = 75 mL/min/1.73 sq.m. Chronic Kidney Disease: Less than 60 mL/min/1.73 square meters End Stage Renal Disease: Less than 15 mL/min/1.73 square meters Performed By: #### C BC, ADIFF, ANEU, PBNP #### [address] [address] #### LIPID, CMP, GFR #### [address] [address] GFR Non- 77 ml/min/1.73sqm Normal [facility] ([place]) Comment on above: Result Comment: GFR Population mean for , Non- Americans Ages 20-29 = 116 mL/min/1.73 sq.m. Ages 30-39 = 107 mL/min/1.73 sq.m. Ages 40-49 = 99 mL/min/1.73 sq.m. Ages 50-59 = 93 mL/min/1.73 sq.m. Ages 60-69 = 85 mL/min/1.73 sq.m. Ages 70+ = 75 mL/min/1.73 sq.m. Chronic Kidney Disease: Less than 60 mL/min/1.73 square meters End Stage Renal Disease: Less than 15 mL/min/1.73 square meters Performed By: #### C BC, ADIFF, ANEU, PBNP #### [address] [address] #### LIPID, CMP, GFR #### [address] [address] .NEUABSon 08-16-2021 Neutrophil, Absolute 4.20 10 3/mcL Normal 2.85-6.16 [facility] ([place]) Comment on above: Performed By: #### C BC, ADIFF, ANEU, PBNP #### [address] [address] #### LIPID, CMP, GFR #### [address] [address] BMPon 08-16-2021 BUN/Creatinine Ratio 19 ratio Normal 7-27 [facility] ([place]) Comment on above: Performed By: #### C BC, ADIFF, ANEU, PBNP #### [address] [address] #### LIPID, CMP, GFR #### [address] [address] Calcium [Mass/Vol] 9.1 mg/dL Normal 8.4-10.2 [facility] ([place]) Comment on above: Performed By: #### C BC, ADIFF, ANEU, PBNP #### [address] [address] #### LIPID, CMP, GFR #### [address] [address] Chloride [Moles/Vol] 106 mmol/L Normal 98-107 [facility] ([place]) Comment on above: Performed By: #### C BC, ADIFF, ANEU, PBNP #### [address] [address] #### LIPID, CMP, GFR #### [address] [address] CO2 [Moles/Vol] 27 mmol/L Normal 22-29 [facility] ([place]) Comment on above: Performed By: #### C BC, ADIFF, ANEU, PBNP #### [address] [address] #### LIPID, CMP, GFR #### [address] [address] Creatinine [Mass/Vol] 0.99 mg/dL Normal 0.70-1.30 [facility] ([place]) Comment on above: Performed By: #### C BC, ADIFF, ANEU, PBNP #### [address] [address] #### LIPID, CMP, GFR #### [address] [address] Electrolyte Balance 7.0 mEq/L Normal [facility] ([place]) Comment on above: Performed By: #### C BC, ADIFF, ANEU, PBNP #### [address] [address] #### LIPID, CMP, GFR #### [address] [address] Glucose [Mass/Vol] 133 mg/dL High 70-105 [facility] ([place]) Comment on above: Performed By: #### C BC, ADIFF, ANEU, PBNP #### [address] [address] #### LIPID, CMP, GFR #### [address] [address] Potassium [Moles/Vol] 4.9 mmol/L Normal 3.5-5.1 [facility] ([place]) Comment on above: Performed By: #### C BC, ADIFF, ANEU, PBNP #### [address] [address] #### LIPID, CMP, GFR #### [address] [address] Sodium [Moles/Vol] 140 mmol/L Normal 136-145 [facility] ([place]) Comment on above: Performed By: #### C BC, ADIFF, ANEU, PBNP #### [place] [address] #### LIPID, CMP, GFR #### [address] [address] Urea nitrogen [Mass/Vol] 19 mg/dL High 7-18 [facility] ([place] Comment on above: Performed By: #### C BC, ADIFF, ANEU, PBNP #### [address] [address] #### LIPID, CMP, GFR #### [address] [address] CBCon 08-16-2021 Erythrocyte distribution width (RBC) [Ratio] 15.0 % High 11.5-14.5 [facility] ([place]) Comment on above: Performed By: #### C BC, ADIFF, ANEU, PBNP #### [place] [address] #### LIPID, CMP, GFR #### [address] [address] Hematocrit (Bld) [Volume fraction] 34.8 % Low 42.0-52.0 [facility] ([place]) Comment on above: Performed By: #### C BC, ADIFF, ANEU, PBNP #### [place] [address] #### LIPID, CMP, GFR #### [place] [address] Hgb 12.4 G/dL Low 14.0-18.0 [facility] ([place]) Comment on above: Performed By: #### C BC, ADIFF, ANEU, PBNP #### [place] [address] #### LIPID, CMP, GFR #### [place] [address] MCH (RBC) [Entitic mass] 30.7 pg Normal 27.0-31.2 [facility] ([place]) Comment on above: Performed By: #### C BC, ADIFF, ANEU, PBNP #### [place] [address] #### LIPID, CMP, GFR #### [place] [address] MCHC 35.5 G/dL High 31.8-35.4 [facility] ([place]) Comment on above: Performed By: #### C BC, ADIFF, ANEU, PBNP #### [place] [address] #### LIPID, CMP, GFR #### [place] [address] MCV (RBC) [Entitic vol] 86.4 fL Normal 80.0-94.0 [facility] ([place]) Comment on above: Performed By: #### C BC, ADIFF, ANEU, PBNP #### [place] [address] #### LIPID, CMP, GFR #### [place] [address] Platelet 246 10 3/mcL Normal 130-400 [facility] ([place]) Comment on above: Performed By: #### C BC, ADIFF, ANEU, PBNP #### [place] [address] #### LIPID, CMP, GFR #### [place] [address] Platelet mean volume (Bld) [Entitic vol] 7.6 fL Normal 7.4-10.4 [facility] ([place]) Comment on above: Performed By: #### C BC, ADIFF, ANEU, PBNP #### [place] [address] #### LIPID, CMP, GFR #### [place] [address] RBC 4.03 10 6/mcL Low 4.04-6.13 [facility] ([place]) Comment on above: Performed By: #### C BC, ADIFF, ANEU, PBNP #### [place] [address] #### LIPID, CMP, GFR #### [place] [address] WBC 6.90 10 3/mcL Normal 4.60-10.80 [facility] ([place]) Comment on above: Performed By: #### C BC, ADIFF, ANEU, PBNP #### [place] [address] #### LIPID, CMP, GFR #### [place] [address] LABORATORYOrdered By: Jarred Metcalf on 08-16-2021 Basophil, Absolute 0.10 103/mcL Invalid Interpretation Code 0.00 - 0.19 10^3/mcL AO Auto Heme SS Basophils/100 WBC (Bld) 1.0 % Invalid Interpretation Code 0.0 - 2.5 % AO Auto Heme SS Calcium [Mass/Vol] 9.1 mg/dL Invalid Interpretation Code 8.4 - 10.2 mg/dL AO ADM SS Chloride [Moles/Vol] 106 mmol/L Invalid Interpretation Code 98 - 107 mmol/L AO ADM SS CO2 [Moles/Vol] 27 mmol/L Invalid Interpretation Code 22 - 29 mmol/L AO ADM SS Creatinine [Mass/Vol] 0.99 mg/dL Invalid Interpretation Code 0.70 - 1.30 mg/dL AO ADM SS Electrolyte Balance 7.0 mEq/L Invalid Interpretation Code AO ADM SS Eosinophil, Absolute 0.60 103/mcL Invalid Interpretation Code 0.00 - 0.40 10^3/mcL AO Auto Heme SS Eosinophils/100 WBC (Bld) 8.4 % Invalid Interpretation Code 0.0 - 7.0 % AO Auto Heme SS Erythrocyte distribution width (RBC) [Ratio] 15.0 % Invalid Interpretation Code 11.5 - 14.5 % AO Auto Heme SS Glucose [Mass/Vol] 133 mg/dL Invalid Interpretation Code 70 - 105 mg/dL AO ADM SS Hematocrit (Bld) [Volume fraction] 34.8 % Invalid Interpretation Code 42.0 - 52.0 % AO Auto Heme SS Hemoglobin (Bld) [Mass/Vol] 12.4 G/dL Invalid Interpretation Code 14.0 - 18.0 G/dL AO Auto Heme SS Lymphocyte, Absolute 1.40 103/mcL Invalid Interpretation Code 0.77 - 3.85 10^3/mcL AO Auto Heme SS Lymphocytes/100 WBC (Bld) 19.9 % Invalid Interpretation Code 10.0 - 50.0 % AO Auto Heme SS MCH (RBC) [Entitic mass] 30.7 pg Invalid Interpretation Code 27.0 - 31.2 pg AO Auto Heme SS MCHC (RBC) [Mass/Vol] 35.5 G/dL Invalid Interpretation Code 31.8 - 35.4 G/dL AO Auto Heme SS MCV (RBC) [Entitic vol] 86.4 fL Invalid Interpretation Code 80.0 - 94.0 fL AO Auto Heme SS Monocyte, Absolute 0.70 103/mcL Invalid Interpretation Code 0.15 - 1.00 10^3/mcL AO Auto Heme SS Monocytes/100 WBC (Bld) 9.7 % Invalid Interpretation Code 1.7 - 13.0 % AO Auto Heme SS Natriuretic peptide.B prohormone N-Terminal [Mass/Vol] 62 pg/mL Invalid Interpretation Code 0 - 125 pg/mL AO ADM SS Neutrophil, Absolute 4.20 103/mcL Invalid Interpretation Code 2.85 - 6.16 10^3/mcL AO Auto Heme SS Neutrophils/100 WBC (Bld) 61.0 % Invalid Interpretation Code 37.0 - 80.0 % AO Auto Heme SS Platelet mean volume (Bld) [Entitic vol] 7.6 fL Invalid Interpretation Code 7.4 - 10.4 fL AO Auto Heme SS Platelets (Bld) [#/Vol] 246 103/mcL Invalid Interpretation Code 130 - 400 10^3/mcL AO Auto Heme SS Potassium [Moles/Vol] 4.9 mmol/L Invalid Interpretation Code 3.5 - 5.1 mmol/L AO ADM SS RBC (Bld) [#/Vol] 4.03 106/mcL Invalid Interpretation Code 4.04 - 6.13 10^6/mcL AO Auto Heme SS Sodium [Moles/Vol] 140 mmol/L Invalid Interpretation Code 136 - 145 mmol/L AO ADM SS Urea nitrogen [Mass/Vol] 19 mg/dL Invalid Interpretation Code 7 - 18 mg/dL AO ADM SS Urea nitrogen/Creatinine [Mass ratio] 19 ratio Invalid Interpretation Code 7 - 27 ratio AO ADM SS WBC (Bld) [#/Vol] 6.90 103/mcL Invalid Interpretation Code 4.60 - 10.80 10^3/mcL AO Auto Heme SS LABORATORYOrdered By: SYSTEM SYSTEM on 08-16-2021 GFR 94 ml/min/1.73sqm Invalid Interpretation Code AO Chemistry S GFR Non- 77 ml/min/1.73sqm Invalid Interpretation Code AO Chemistry S PBNPon 08-16-2021 Natriuretic peptide B (Bld) [Mass/Vol] 62 pg/mL Normal 0-125 [facility] ([place]) Comment on above: Result Comment: NT-p roBNP results of less than 300 pg/mL effectively rules out acute congestive heart failure with 99% negative predictive value. Performed By: #### C BC, ADIFF, ANEU, PBNP #### [place] [address] [place], [place] [address] #### LIPID, CMP, GFR #### [address] [address] .Auto Diffon 07-06-2021 Basophil, Absolute 0.10 10 3/mcL Normal 0.00-0.27 [facility] ([place]) Comment on above: Performed By: #### C BC, ADIFF, ANEU, BMP, GFR #### [address] [address] Basophils/100 WBC (Bld) 0.9 % Normal 0.0-2.5 [facility] ([place]) Comment on above: Performed By: #### C BC, ADIFF, ANEU, BMP, GFR #### [address] [address] Eosinophil, Absolute 0.30 10 3/mcL Normal 0.00-0.65 [facility] ([place]) Comment on above: Performed By: #### C BC, ADIFF, ANEU, BMP, GFR #### [address] [address] Eosinophils/100 WBC (Bld) 5.0 % Normal 0.0-6.0 [facility] ([place] Comment on above: Performed By: #### C BC, ADIFF, ANEU, BMP, GFR #### [address] [address] Lymphocyte, Absolute 1.20 10 3/mcL Normal 0.90-4.32 [facility] ([place]) Comment on above: Performed By: #### C BC, ADIFF, ANEU, BMP, GFR #### [address] [address] Lymphocytes/100 WBC (Bld) 16.9 % Low 20.0-40.0 [facility] ([place] Comment on above: Performed By: #### C BC, ADIFF, ANEU, BMP, GFR #### [address] [address] Monocyte, Absolute 0.60 10 3/mcL Normal 0.09-1.40 [facility] ([place]) Comment on above: Performed By: #### C BC, ADIFF, ANEU, BMP, GFR #### [address] [address] Monocytes/100 WBC (Bld) 8.4 % Normal 2.0-13.0 [facility] ([place] Comment on above: Performed By: #### C BC, ADIFF, ANEU, BMP, GFR #### [address] [address] Neutrophils/100 WBC (Bld) 68.8 % Normal 50.0-75.0 [facility] ([place] Comment on above: Performed By: #### C BC, ADIFF, ANEU, BMP, GFR #### [address] [address] .GFRon 07-06-2021 GFR Non- >60 Normal [facility] ([place]) Comment on above: Result Comment: GFR Population mean for , Non- Americans Ages 20-29 = 116 mL/min/1.73 sq.m. Ages 30-39 = 107 mL/min/1.73 sq.m. Ages 40-49 = 99 mL/min/1.73 sq.m. Ages 50-59 = 93 mL/min/1.73 sq.m. Ages 60-69 = 85 mL/min/1.73 sq.m. Ages 70+ = 75 mL/min/1.73 sq.m. Chronic Kidney Disease: Less than 60 mL/min/1.73 square meters End Stage Renal Disease: Less than 15 mL/min/1.73 square meters Performed By: #### C BC, ADIFF, ANEU, PBNP #### [address] [address] #### LIPID, CMP, GFR #### [address] [address] GFR >60 Normal [facility] ([place]) Comment on above: Result Comment: GFR Population mean for , Non- Americans Ages 20-29 = 116 mL/min/1.73 sq.m. Ages 30-39 = 107 mL/min/1.73 sq.m. Ages 40-49 = 99 mL/min/1.73 sq.m. Ages 50-59 = 93 mL/min/1.73 sq.m. Ages 60-69 = 85 mL/min/1.73 sq.m. Ages 70+ = 75 mL/min/1.73 sq.m. Chronic Kidney Disease: Less than 60 mL/min/1.73 square meters End Stage Renal Disease: Less than 15 mL/min/1.73 square meters Performed By: #### C BC, ADIFF, ANEU, PBNP #### [address] [address] #### LIPID, CMP, GFR #### [address] [address] .NEUABSon 07-06-2021 Neutrophil, Absolute 4.70 10 3/mcL Normal 2.25-8.10 [facility] ([place]) Comment on above: Performed By: #### C BC, ADIFF, ANEU, PBNP #### [address] [address] #### LIPID, CMP, GFR #### [address] [address] BMPon 07-06-2021 BUN/Creatinine Ratio 13.5 ratio Normal 10.0-22.0 [facility] ([place]) Comment on above: Performed By: #### C BC, ADIFF, ANEU, PBNP #### [place] [address] #### LIPID, CMP, GFR #### [address] [address] Calcium [Mass/Vol] 9.6 mg/dL Normal 8.7-10.4 [facility] ([place]) Comment on above: Result Comment: No te - New Reference Range in effect 20 Performed By: #### C BC, ADIFF, ANEU, PBNP #### [place] [address] #### LIPID, CMP, GFR #### [address] [address] Chloride [Moles/Vol] 105 mmol/L Normal 98-110 [facility] ([place]) Comment on above: Performed By: #### C BC, ADIFF, ANEU, PBNP #### [address] [address] #### LIPID, CMP, GFR #### [address] [address] CO2 [Moles/Vol] 25 mmol/L Normal 22-32 [facility] ([place] Comment on above: Performed By: #### C BC, ADIFF, ANEU, PBNP #### [place] [address] #### LIPID, CMP, GFR #### [address] [address] Creatinine [Mass/Vol] 0.96 mg/dL Normal 0.60-1.40 [facility] ([place]) Comment on above: Performed By: #### C BC, ADIFF, ANEU, PBNP #### [address] [address] #### LIPID, CMP, GFR #### [address] [address] Electrolyte Balance 8.0 mEq/L Normal 4.0-15.0 [facility] ([place] Comment on above: Performed By: #### C BC, ADIFF, ANEU, PBNP #### [place] [address] #### LIPID, CMP, GFR #### [address] [address] Glucose [Mass/Vol] 124 mg/dL High 70-110 [facility] ([place]) Comment on above: Performed By: #### C BC, ADIFF, ANEU, PBNP #### [place] [address] #### LIPID, CMP, GFR #### [address] [address] Potassium [Moles/Vol] 4.2 mmol/L Normal 3.5-5.0 [facility] ([place]) Comment on above: Result Comment: Spec imen slightly hemolyzed. Performed By: #### C BC, ADIFF, ANEU, PBNP #### [place] [address] #### LIPID, CMP, GFR #### [address] [address] Sodium [Moles/Vol] 138 mmol/L Normal 136-145 [facility] ([place]) Comment on above: Performed By: #### C BC, ADIFF, ANEU, PBNP #### [address] [address] #### LIPID, CMP, GFR #### [address] [address] Urea nitrogen [Mass/Vol] 13.0 mg/dL Normal 8.0-22.0 [facility] ([place] Comment on above: Performed By: #### C BC, ADIFF, ANEU, PBNP #### [address] [address] #### LIPID, CMP, GFR #### [place] [address] CBCon 07-06-2021 Erythrocyte distribution width (RBC) [Ratio] 15.2 % Normal 11.5-15.5 [facility] ([place] Comment on above: Performed By: #### C BC, ADIFF, ANEU, BMP, GFR #### [place] [address] Hematocrit (Bld) [Volume fraction] 34.5 % Low 40.0-52.0 [facility] ([place] Comment on above: Performed By: #### C BC, ADIFF, ANEU, BMP, GFR #### [place] [address] Hgb 12.2 G/dL Low 13.0-17.5 [facility] ([place] Comment on above: Performed By: #### C BC, ADIFF, ANEU, BMP, GFR #### [place] [address] MCH (RBC) [Entitic mass] 29.9 pg Normal 27.0-33.0 [facility] ([place] Comment on above: Performed By: #### C BC, ADIFF, ANEU, BMP, GFR #### [place] [address] MCHC 35.5 G/dL Normal 32.0-36.0 [facility] ([place] Comment on above: Performed By: #### C BC, ADIFF, ANEU, BMP, GFR #### [place] [address] MCV (RBC) [Entitic vol] 84.4 fL Normal 81.0-100.0 [facility] ([place] Comment on above: Performed By: #### C BC, ADIFF, ANEU, BMP, GFR #### [address] [address] Platelet 216 10 3/mcL Normal 150-450 [facility] ([place] Comment on above: Performed By: #### C BC, ADIFF, ANEU, BMP, GFR #### [address] [address] Platelet mean volume (Bld) [Entitic vol] 7.5 fL Normal 6.4-10.5 [facility] ([place] Comment on above: Performed By: #### C BC, ADIFF, ANEU, BMP, GFR #### [place] [address] RBC 4.08 10 6/mcL Low 4.50-6.00 [facility] ([place] Comment on above: Performed By: #### C BC, ADIFF, ANEU, BMP, GFR #### [place] [address] WBC 6.90 10 3/mcL Normal 4.50-10.80 [facility] ([place] Comment on above: Performed By: #### C BC, ADIFF, ANEU, BMP, GFR #### [address] [address] .Auto Diffon 03-11-2021 Basophil, Absolute 0.10 10 3/mcL Normal 0.00-0.19 [facility] ([place]) Comment on above: Performed By: #### C BC, ADIFF, ANEU, PBNP #### [place] [address] #### LIPID, CMP, GFR #### [address] [address] Basophils/100 WBC (Bld) 1.1 % Normal 0.0-2.5 [facility] ([place] Comment on above: Performed By: #### C BC, ADIFF, ANEU, PBNP #### [address] [address] #### LIPID, CMP, GFR #### [place] [address] Eosinophil, Absolute 0.50 10 3/mcL High 0.00-0.40 [facility] ([place]) Comment on above: Performed By: #### C BC, ADIFF, ANEU, PBNP #### [place] [address] #### LIPID, CMP, GFR #### [address] [address] Eosinophils/100 WBC (Bld) 6.4 % Normal 0.0-7.0 [facility] ([place] Comment on above: Performed By: #### C BC, ADIFF, ANEU, PBNP #### [place] [address] #### LIPID, CMP, GFR #### [address] [address] Lymphocyte, Absolute 1.40 10 3/mcL Normal 0.77-3.85 [facility] ([place]) Comment on above: Performed By: #### C BC, ADIFF, ANEU, PBNP #### [place] [address] #### LIPID, CMP, GFR #### [address] [address] Lymphocytes/100 WBC (Bld) 18.2 % Normal 10.0-50.0 [facility] ([place] Comment on above: Performed By: #### C BC, ADIFF, ANEU, PBNP #### [place] [address] #### LIPID, CMP, GFR #### [address] [address] Monocyte, Absolute 0.50 10 3/mcL Normal 0.15-1.00 [facility] ([place]) Comment on above: Performed By: #### C BC, ADIFF, ANEU, PBNP #### [place] [address] #### LIPID, CMP, GFR #### [address] [address] Monocytes/100 WBC (Bld) 6.3 % Normal 1.7-13.0 [facility] ([place]) Comment on above: Performed By: #### C BC, ADIFF, ANEU, PBNP #### [address] [address] #### LIPID, CMP, GFR #### [address] [address] Neutrophils/100 WBC (Bld) 68.0 % Normal 37.0-80.0 [facility] ([place] Comment on above: Performed By: #### C BC, ADIFF, ANEU, PBNP #### [address] [address] #### LIPID, CMP, GFR #### [address] [address] .GFRon 03-11-2021 GFR 89 ml/min/1.73sqm Normal [facility] ([place] Comment on above: Result Comment: GFR Population mean for , Non- Americans Ages 20-29 = 116 mL/min/1.73 sq.m. Ages 30-39 = 107 mL/min/1.73 sq.m. Ages 40-49 = 99 mL/min/1.73 sq.m. Ages 50-59 = 93 mL/min/1.73 sq.m. Ages 60-69 = 85 mL/min/1.73 sq.m. Ages 70+ = 75 mL/min/1.73 sq.m. Chronic Kidney Disease: Less than 60 mL/min/1.73 square meters End Stage Renal Disease: Less than 15 mL/min/1.73 square meters Performed By: #### C BC, ADIFF, ANEU, PBNP #### [address] [address] #### LIPID, CMP, GFR #### [address] [address] GFR Non- 73 ml/min/1.73sqm Normal [facility] ([place] Comment on above: Result Comment: GFR Population mean for , Non- Americans Ages 20-29 = 116 mL/min/1.73 sq.m. Ages 30-39 = 107 mL/min/1.73 sq.m. Ages 40-49 = 99 mL/min/1.73 sq.m. Ages 50-59 = 93 mL/min/1.73 sq.m. Ages 60-69 = 85 mL/min/1.73 sq.m. Ages 70+ = 75 mL/min/1.73 sq.m. Chronic Kidney Disease: Less than 60 mL/min/1.73 square meters End Stage Renal Disease: Less than 15 mL/min/1.73 square meters Performed By: #### C BC, ADIFF, ANEU, PBNP #### [place] [address] #### LIPID, CMP, GFR #### [place] [id number] .NEUABSon 03-11-2021 Neutrophil, Absolute 5.40 10 3/mcL Normal 2.85-6.16 [facility] ([place]) Comment on above: Performed By: #### C BC, ADIFF, ANEU, PBNP #### [place] [address] #### LIPID, CMP, GFR #### [place] [address] CBCon 03-11-2021 Erythrocyte distribution width (RBC) [Ratio] 15.5 % High 11.5-14.5 [facility] ([place]) Comment on above: Order Comment: copy Dr Turner Performed By: #### C BC, ADIFF, ANEU, PBNP #### [place] [address] #### LIPID, CMP, GFR #### [place] [address] Hematocrit (Bld) [Volume fraction] 36.1 % Low 42.0-52.0 [facility] ([place]) Comment on above: Order Comment: copy Dr Turner Performed By: #### C BC, ADIFF, ANEU, PBNP #### [place] [address] #### LIPID, CMP, GFR #### [place] [address] Hgb 12.8 G/dL Low 14.0-18.0 [facility] ([place]) Comment on above: Order Comment: copy Dr Turner Performed By: #### C BC, ADIFF, ANEU, PBNP #### [address] [id number] #### LIPID, CMP, GFR #### [address] [id number] MCH (RBC) [Entitic mass] 30.3 pg Normal 27.0-31.2 [facility] ([place]) Comment on above: Order Comment: copy Dr Turner Performed By: #### C BC, ADIFF, ANEU, PBNP #### [place] [address] #### LIPID, CMP, GFR #### [address] [id number] MCHC 35.4 G/dL Normal 31.8-35.4 [facility] ([place]) Comment on above: Order Comment: copy Dr Turner Performed By: #### C BC, ADIFF, ANEU, PBNP #### [place] [id number] #### LIPID, CMP, GFR #### [address] [address] MCV (RBC) [Entitic vol] 85.7 fL Normal 80.0-94.0 [facility] ([place]) Comment on above: Order Comment: copy Dr Turner Performed By: #### C BC, ADIFF, ANEU, PBNP #### [place] [address] #### LIPID, CMP, GFR #### [address] [address] Platelet 271 10 3/mcL Normal 130-400 [facility] ([place]) Comment on above: Order Comment: copy Dr Turner Performed By: #### C BC, ADIFF, ANEU, PBNP #### [place] [address] #### LIPID, CMP, GFR #### [place] [id number] Platelet mean volume (Bld) [Entitic vol] 7.7 fL Normal 7.4-10.4 [facility] ([place]) Comment on above: Order Comment: copy Dr Turner Performed By: #### C BC, ADIFF, ANEU, PBNP #### [address] [address] #### LIPID, CMP, GFR #### [address] [address] RBC 4.21 10 6/mcL Normal 4.04-6.13 [facility] ([place]) Comment on above: Order Comment: copy Dr Turner Performed By: #### C BC, ADIFF, ANEU, PBNP #### [address] [address] #### LIPID, CMP, GFR #### [place] [address] WBC 7.90 10 3/mcL Normal 4.60-10.80 [facility] ([place]) Comment on above: Order Comment: copy Dr Turner Performed By: #### C BC, ADIFF, ANEU, PBNP #### [place] [address] #### LIPID, CMP, GFR #### [address] [address] CMPon 03-11-2021 Albumin Level 4.2 G/dL Normal 3.5-5.0 [facility] ([place]) Comment on above: Order Comment: copy Dr Turner Performed By: #### C BC, ADIFF, ANEU, PBNP #### [address] [address] #### LIPID, CMP, GFR #### [place] [address] Albumin/Globulin [Mass ratio] 1.6 {ratio} Normal 1.1-2.5 [facility] ([place]) Comment on above: Order Comment: copy Dr Turner Performed By: #### C BC, ADIFF, ANEU, PBNP #### [address] [place] [address] #### LIPID, CMP, GFR #### [address] [address] ALP [Catalytic activity/Vol] 123 U/L Normal 40-135 [facility] ([place]) Comment on above: Order Comment: copy Dr Turner Performed By: #### C BC, ADIFF, ANEU, PBNP #### [address] [address] #### LIPID, CMP, GFR #### [address] [address] ALT [Catalytic activity/Vol] 38 U/L Normal 16-63 [facility] ([place]) Comment on above: Order Comment: copy Dr Turner Performed By: #### C BC, ADIFF, ANEU, PBNP #### [place] [address] #### LIPID, CMP, GFR #### [address] [address] AST [Catalytic activity/Vol] 21 U/L Normal 10-40 [facility] ([place]) Comment on above: Order Comment: copy Dr Turner Performed By: #### C BC, ADIFF, ANEU, PBNP #### [place] [address] #### LIPID, CMP, GFR #### [address] [address] Bili Total 0.6 mg/dL Normal 0.2-1.0 [facility] ([place]) Comment on above: Order Comment: copy Dr Turner Result Comment: Use of this assay is not recommended for patients undergoing treatment with eltrombopag due to the potential for falsely elevated results. Performed By: #### C BC, ADIFF, ANEU, PBNP #### [place] [address] #### LIPID, CMP, GFR #### [address] [address] BUN/Creatinine Ratio 17 ratio Normal 7-27 [facility] ([place]) Comment on above: Order Comment: copy Dr Turner Performed By: #### C BC, ADIFF, ANEU, PBNP #### [address] [address] #### LIPID, CMP, GFR #### [address] [address] Calcium [Mass/Vol] 9.3 mg/dL Normal 8.4-10.2 [facility] ([place]) Comment on above: Order Comment: copy Dr Turner Performed By: #### C BC, ADIFF, ANEU, PBNP #### [address] [address] #### LIPID, CMP, GFR #### [address] [address] Chloride [Moles/Vol] 101 mmol/L Normal 98-107 [facility] ([place]) Comment on above: Order Comment: copy Dr Turner Performed By: #### C BC, ADIFF, ANEU, PBNP #### [place] [address] #### LIPID, CMP, GFR #### [address] [address] CO2 [Moles/Vol] 29 mmol/L Normal 22-29 [facility] ([place]) Comment on above: Order Comment: copy Dr Turner Performed By: #### C BC, ADIFF, ANEU, PBNP #### [place] [address] #### LIPID, CMP, GFR #### [address] [address] Creatinine [Mass/Vol] 1.04 mg/dL Normal 0.70-1.30 [facility] ([place]) Comment on above: Order Comment: copy Dr Turner Performed By: #### C BC, ADIFF, ANEU, PBNP #### [place] [address] #### LIPID, CMP, GFR #### [address] [address] Electrolyte Balance 9.0 mEq/L [facility] ([place]) Comment on above: Order Comment: copy Dr Turner Performed By: #### C BC, ADIFF, ANEU, PBNP #### [address] [address] #### LIPID, CMP, GFR #### [address] [address] Globulin 2.7 G/dL Normal [facility] ([place]) Comment on above: Order Comment: copy Dr Turner Performed By: #### C BC, ADIFF, ANEU, PBNP #### [address] [address] #### LIPID, CMP, GFR #### [address] [address] Glucose [Mass/Vol] 155 mg/dL High 70-105 [facility] ([place]) Comment on above: Order Comment: copy Dr Turner Performed By: #### C BC, ADIFF, ANEU, PBNP #### [address] [address] #### LIPID, CMP, GFR #### [address] [address] Potassium [Moles/Vol] 4.5 mmol/L Normal 3.5-5.1 [facility] ([place]) Comment on above: Order Comment: copy Dr Turner Performed By: #### C BC, ADIFF, ANEU, PBNP #### [address] [address] #### LIPID, CMP, GFR #### [address] [address] Sodium [Moles/Vol] 139 mmol/L Normal 136-145 [facility] ([place]) Comment on above: Order Comment: copy Dr Turner Performed By: #### C BC, ADIFF, ANEU, PBNP #### [address] [address] #### LIPID, CMP, GFR #### [address] [address] Total Protein 6.9 G/dL Normal 6.4-8.2 [facility] ([place]) Comment on above: Order Comment: copy Dr Turner Performed By: #### C BC, ADIFF, ANEU, PBNP #### [address] [address] #### LIPID, CMP, GFR #### [address] [address] Urea nitrogen [Mass/Vol] 18 mg/dL Normal 7-18 [facility] ([place]) Comment on above: Order Comment: copy Dr Turner Performed By: #### C BC, ADIFF, ANEU, PBNP #### [address] [address] #### LIPID, CMP, GFR #### [address] [address] LIPIDon 03-11-2021 Cholesterol [Mass/Vol] 103 mg/dL Normal 0-200 [facility] ([place]) Comment on above: Order Comment: copy Dr Turner Result Comment: Chol esterol Reference Interval: Less than 200 Desirable 200-239 Borderline high risk 240 and above High risk Performed By: #### C BC, ADIFF, ANEU, PBNP #### [address] [address] #### LIPID, CMP, GFR #### [address] [address] Cholesterol in HDL [Mass/Vol] 41 mg/dL Normal 40-60 [facility] ([place] Comment on above: Order Comment: copy Dr Turner Performed By: #### C BC, ADIFF, ANEU, PBNP #### [address] [address] #### LIPID, CMP, GFR #### [address] [address] Cholesterol in LDL [Mass/Vol] 45 mg/dL Normal 0-130 [facility] ([place]) Comment on above: Order Comment: copy Dr Turner Performed By: #### C BC, ADIFF, ANEU, PBNP #### [address] [address] #### LIPID, CMP, GFR #### [address] [address] Triglyceride [Mass/Vol] 83 mg/dL Normal 0-150 [facility] ([place]) Comment on above: Order Comment: copy Dr Turner Result Comment: Trig lyceride Reference Interval: Less than 150 Normal 150-199 Borderline high risk 200-499 High risk 500 or higher Very high risk Performed By: #### C BC, ADIFF, ANEU, PBNP #### [address] [address] #### LIPID, CMP, GFR #### [address] [address] PBNPon 03-11-2021 Natriuretic peptide B (Bld) [Mass/Vol] 123 pg/mL Normal 0-125 [facility] ([place]) Comment on above: Order Comment: copy Dr Turner Result Comment: NT-p roBNP results of less than 300 pg/mL effectively rules out acute congestive heart failure with 99% negative predictive value. Performed By: #### C BC, ADIFF, ANEU, PBNP #### [address] [address] #### LIPID, CMP, GFR #### [place] [id number] NM MYOCARDIAL SPECT STRESS/R ESTon 12-29-2020 NM MYOCARDIAL SPECT STRESS/REST ORIGINAL NM MYOCARDIAL SPECT STRESS/REST CLINICAL STATEMENT: CP TECHNIQUE: Lexiscan dose:0.4 mg Radiopharmaceutical (stress): Tc-99m Sestamibi Dose:30.1 mCi Radiopharmaceutical (rest): Tc-99m Sestamibi Dose:10.4 mCi SPECT acquisition and processing Reconstruction and reorientation of SPECT images into short axis, vertical and horizontal long axis planes Quantitative LVEF assessment COMPARISON:07/16/2020 REPORT:Rotating planar images demonstrate patient motion in both stress and rest images. SPECT perfusion images demonstrate homogeneous tracer uptake in rest and stress images after accounting for soft tissue attenuation. Tid ratio within normal limits. Gated SPECT images demonstrate normal wall motion and wall thickening. End-diastolic volume is 149 mL. Ejection fraction is 47% which appears to be an underestimation. Visually EF appears close to 55-60%. IMPRESSION: 1. No evidence of ischemia or prior infarction. 2. Normal systolic function. EF under estimated at 47%. Visually EF appears close to 55-60%. 3. The reversible defect noted in distal anterior and apex in prior study has resolved. Systolic function was similar reported as 47% in prior study. Interpreted By: Ghada May MD Preliminary Report By: Ghada May MD Electronically Signed By: Ghada May MD Dictated Date: 12/29/2020 5:24:28 PM Prelim Date: 12/29/2020 5:24:28 PM Sign Date: 12/29/2020 5:28:40 PM Ordering Provider:[facility]) Vital Signs Date Time Vital Sign Value Performing Clinician Rachel bailon 08-24-2025 13:41-0400 Body height 185.[address] Pietro Turner MD Work Phone: [facility] 08-24-2025 13:41-0400 Body mass index (BMI) [Ratio] 33.6 kg/m2 Dr. Pietro Turner MD Work Phone: [facility] 08-24-2025 13:41-0400 Body temperature 98.2 [degF] Dr. Pietro Turner MD Work Phone: [facility] 08-24-2025 13:41-0400 Body weight 115.[address] Pietro Turner MD Work Phone: [facility] 08-24-2025 13:41-0400 Diastolic blood pressure 94 mm[Hg] Dr. Pietro Turner MD Work Phone: [facility] 08-24-2025 13:41-0400 Heart rate 88 /min Dr. Pietro Turner MD Work Phone: [facility] 08-24-2025 13:41-0400 SaO2% (BldA) [Mass fraction] 92 % Dr. Pietro Turner MD Work Phone: [facility] 08-24-2025 13:41-0400 Systolic blood pressure 162 mm[Hg] Dr. Pietro Turner MD Work Phone: [facility] 08-10-2025 07:51-0400 Body mass index (BMI) [Ratio] 34.2 kg/m2 Dr. Pietro Turner MD Work Phone: [facility] 08-10-2025 07:51-0400 Body weight 117.[address] Pietro Turner MD Work Phone: [facility] 08-10-2025 07:51-0400 Diastolic blood pressure 89 mm[Hg] Dr. Pietro Turner MD Work Phone: [facility] 08-10-2025 07:51-0400 Heart rate 85 /min Dr. Pietro Turner MD Work Phone: [facility] 08-10-2025 07:51-0400 Respiratory rate 18 /min Dr. Pietro Turner MD Work Phone: [facility] 08-10-2025 07:51-0400 SaO2% (BldA) [Mass fraction] 97 % Dr. Pietro Turner MD Work Phone: [facility] 08-10-2025 07:51-0400 Systolic blood pressure 148 mm[Hg] Dr. Pietro Turner MD Work Phone: [facility] 07-28-2025 10:34-0400 Body height 185.[address] Pietro Turner MD Work Phone: [facility] 07-28-2025 10:34-0400 Body mass index (BMI) [Ratio] 34.2 kg/m2 Dr. Pietro Turner MD Work Phone: [facility] 07-28-2025 10:34-0400 Body temperature 98.4 [degF] Dr. Pietro Turner MD Work Phone: [facility] 07-28-2025 10:34-0400 Body weight 117.[address] Pietro Turner MD Work Phone: [facility] 07-28-2025 10:34-0400 Diastolic blood pressure 90 mm[Hg] Dr. Pietro Turner MD Work Phone: [facility] 07-28-2025 10:34-0400 Heart rate 86 /min Dr. Pietro Turner MD Work Phone: [facility] 07-28-2025 10:34-0400 SaO2% (BldA) [Mass fraction] 97 % Dr. Pietro Turner MD Work Phone: [facility] 07-28-2025 10:34-0400 Systolic blood pressure 173 mm[Hg] Dr. Pietro Turner MD Work Phone: [facility] 06-17-2025 15:11-0400 Body height 185.[address] Pietro Turner MD Work Phone: [facility] 06-17-2025 15:11-0400 Body mass index (BMI) [Ratio] 35.2 kg/m2 Dr. Pietro Turner MD Work Phone: [facility] 06-17-2025 15:11-0400 Body temperature 98.6 [degF] Dr. Pietro Turner MD Work Phone: [facility] 06-17-2025 15:11-0400 Body weight 120.[address] Pietro Turner MD Work Phone: [facility] 06-17-2025 15:11-0400 Diastolic blood pressure 79 mm[Hg] Dr. Pietro Turner MD Work Phone: [facility] 06-17-2025 15:11-0400 Heart rate 98 /min Dr. Pietro Turner MD Work Phone: [facility] 06-17-2025 15:11-0400 Respiratory rate 16 /min Dr. Pietro Turner MD Work Phone: [facility] 06-17-2025 15:11-0400 SaO2% (BldA) [Mass fraction] 95 % Dr. Pietro Turner MD Work Phone: [facility] 06-17-2025 15:11-0400 Systolic blood pressure 153 mm[Hg] Dr. Pietro Turner MD Work Phone: [facility] 05-18-2025 11:44-0400 Body height 185.[address] Pietro Turner MD Work Phone: [facility] 05-18-2025 11:44-0400 Body mass index (BMI) [Ratio] 33.5 kg/m2 Dr. Pietro Turner MD Work Phone: [facility] 05-18-2025 11:44-0400 Body temperature 98.6 [degF] Dr. Pietro Turner MD Work Phone: [facility] 05-18-2025 11:44-0400 Body weight 115.[address] Pietro Turner MD Work Phone: [facility] 05-18-2025 11:44-0400 Diastolic blood pressure 78 mm[Hg] Dr. Pietro Turner MD Work Phone: [facility] 05-18-2025 11:44-0400 Heart rate 98 /min Dr. Pietro Turner MD Work Phone: [facility] 05-18-2025 11:44-0400 Respiratory rate 16 /min Dr. Pietro Turner MD Work Phone: [facility] 05-18-2025 11:44-0400 SaO2% (BldA) [Mass fraction] 98 % Dr. Pietro Turner MD Work Phone: [facility] 05-18-2025 11:44-0400 Systolic blood pressure 132 mm[Hg] Dr. Pietro Turner MD Work Phone: [facility] 04-27-2025 10:34-0400 Body height 185.[address] Pietro Turner MD Work Phone: [facility] 04-27-2025 10:34-0400 Body mass index (BMI) [Ratio] 33.3 kg/m2 Dr. Pietro Turner MD Work Phone: [facility] 04-27-2025 10:34-0400 Body temperature 98.4 [degF] Dr. Pietro Turner MD Work Phone: [facility] 04-27-2025 10:34-0400 Body weight 114.[address] Peitro Turner MD Work Phone: [facility] 04-27-2025 10:34-0400 Diastolic blood pressure 88 mm[Hg] Dr. Pietro Turner MD Work Phone: [facility] 04-27-2025 10:34-0400 Heart rate 71 /min Dr. Pietro Turner MD Work Phone: [facility] 04-27-2025 10:34-0400 Respiratory rate 16 /min Dr. Pietro Turner MD Work Phone: [facility] 04-27-2025 10:34-0400 SaO2% (BldA) [Mass fraction] 96 % Dr. Pietro Turner MD Work Phone: [facility] 04-27-2025 10:34-0400 Systolic blood pressure 153 mm[Hg] Dr. Pietro Turner MD Work Phone: [facility] 01-01-2025 16:10-0500 Body height 185.[address] Pietro Turner MD Work Phone: [facility] 01-01-2025 16:10-0500 Body mass index (BMI) [Ratio] 33.7 kg/m2 Dr. Pietro Turner MD Work Phone: [facility] 01-01-2025 16:10-0500 Body temperature 98.4 [degF] Dr. Pietro Turner MD Work Phone: [facility] 01-01-2025 16:10-0500 Body weight 115.[address] Pietro Turner MD Work Phone: [facility] 01-01-2025 16:10-0500 Diastolic blood pressure 76 mm[Hg] Dr. Pietro Turner MD Work Phone: [facility] 01-01-2025 16:10-0500 Heart rate 76 /min Dr. Pietro Turner MD Work Phone: [facility] 01-01-2025 16:10-0500 Respiratory rate 16 /min Dr. Pietro Turner MD Work Phone: [facility] 01-01-2025 16:10-0500 SaO2% (BldA) [Mass fraction] 99 % Dr. Pietro Turner MD Work Phone: [facility] 01-01-2025 16:10-0500 Systolic blood pressure 134 mm[Hg] Dr. Pietro Turner MD Work Phone: [facility] 11-25-2024 14:55-0500 Body mass index (BMI) [Ratio] 34.4 kg/m2 Dr. Pietro Turner MD Work Phone: [facility] 11-25-2024 14:55-0500 Body weight 118.[address] Pietro Turner MD Work Phone: [facility] 11-25-2024 14:55-0500 Diastolic blood pressure 79 mm[Hg] Dr. Pietro Turner MD Work Phone: [facility] 11-25-2024 14:55-0500 Heart rate 76 /min Dr. Pietro Turner MD Work Phone: [facility] 11-25-2024 14:55-0500 Respiratory rate 16 /min Dr. Pietro Turner MD Work Phone: [facility] 11-25-2024 14:55-0500 Systolic blood pressure 121 mm[Hg] Dr. Pietro Turner MD Work Phone: [facility] 11-14-2024 23:00-0500 Body temperature 98 [degF] Dr. Pietro Turner MD Work Phone: [facility] 11-14-2024 23:00-0500 Diastolic blood pressure 71 mm[Hg] Dr. Pietro Turner MD Work Phone: [facility] 11-14-2024 23:00-0500 Heart rate 72 /min Dr. Pietro Turner MD Work Phone: [facility] 11-14-2024 23:00-0500 Respiratory rate 16 /min Dr. Pietro Turner MD Work Phone: [facility] 11-14-2024 23:00-0500 SaO2% (BldA) [Mass fraction] 97 % Dr. Pietro Turner MD Work Phone: [facility] 11-14-2024 23:00-0500 Systolic blood pressure 117 mm[Hg] Dr. Pietro Turner MD Work Phone: [facility] 11-13-2024 15:05-0500 Body temperature 97.4 [degF] Dr. Pietro Turner MD Work Phone: [facility] 11-13-2024 15:05-0500 Diastolic blood pressure 70 mm[Hg] Dr. Pietro Turner MD Work Phone: [facility] 11-13-2024 15:05-0500 Heart rate 73 /min Dr. Pietro Turner MD Work Phone: [facility] 11-13-2024 15:05-0500 Respiratory rate 16 /min Dr. Pietro Turner MD Work Phone: [facility] 11-13-2024 15:05-0500 SaO2% (BldA) [Mass fraction] 98 % Dr. Pietro Turner MD Work Phone: [facility] 11-13-2024 15:05-0500 Systolic blood pressure 138 mm[Hg] Dr. Pietro Turner MD Work Phone: [facility] 11-07-2024 08:23-0500 Body temperature 98.4 [degF] Dr. Pietro Turner MD Work Phone: [facility] 11-07-2024 08:23-0500 Diastolic blood pressure 72 mm[Hg] Dr. Pietro Turner MD Work Phone: [facility] 11-07-2024 08:23-0500 Heart rate 60 /min Dr. Pietro Turner MD Work Phone: [facility] 11-07-2024 08:23-0500 Respiratory rate 16 /min Dr. Pietro Turner MD Work Phone: [facility] 11-07-2024 08:23-0500 SaO2% (BldA) [Mass fraction] 98 % Dr. Pietro Turner MD Work Phone: [facility] 11-07-2024 08:23-0500 Systolic blood pressure 120 mm[Hg] Dr. Pietro Turner MD Work Phone: [facility] 11-07-2024 06:50-0500 Body mass index (BMI) [Ratio] 34.3 kg/m2 Dr. Pietro Turner MD Work Phone: [facility] 11-07-2024 06:50-0500 Body weight [address] Pierto Turner MD Work Phone: [facility] 10-16-2024 15:43-0500 Body temperature 98 [degF] Dr. Pietro Turner MD Work Phone: [facility] 10-16-2024 15:43-0500 Diastolic blood pressure 82 mm[Hg] Dr. Pietro Turner MD Work Phone: [facility] 10-16-2024 15:43-0500 Heart rate 75 /min Dr. Pietro Turner MD Work Phone: [facility] 10-16-2024 15:43-0500 Respiratory rate 16 /min Dr. Pietro Turner MD Work Phone: [facility] 10-16-2024 15:43-0500 SaO2% (BldA) [Mass fraction] 98 % Dr. Pietro Turner MD Work Phone: [facility] 10-16-2024 15:43-0500 Systolic blood pressure 132 mm[Hg] Dr. Pietro Turner MD Work Phone: [facility] 10-14-2024 13:35-0500 Body mass index (BMI) [Ratio] 35.1 kg/m2 Dr. Pietro Turner MD Work Phone: [facility] 10-14-2024 13:35-0500 Body temperature 98.2 [degF] Dr. Pietro Turner MD Work Phone: [facility] 10-14-2024 13:35-0500 Body weight 120.[address] Pietro Turner MD Work Phone: [facility] 10-14-2024 13:35-0500 Diastolic blood pressure 74 mm[Hg] Dr. Pietro Turner MD Work Phone: [facility] 10-14-2024 13:35-0500 Heart rate 80 /min Dr. Pietro Turner MD Work Phone: [facility] 10-14-2024 13:35-0500 Respiratory rate 18 /min Dr. Pietro Turner MD Work Phone: [facility] 10-14-2024 13:35-0500 SaO2% (BldA) [Mass fraction] 99 % Dr. Pietro Turner MD Work Phone: [facility] 10-14-2024 13:35-0500 Systolic blood pressure 128 mm[Hg] Dr. Pietro Turner MD Work Phone: [facility] 02-19-2024 06:00-0400 Body temperature 98 [degF] Dr. Pietro Turner Work Phone: [facility] 02-19-2024 06:00-0400 Diastolic blood pressure 72 mm[Hg] Dr. Pietro Turner Work Phone: [facility] 02-19-2024 06:00-0400 Heart rate 64 /min Dr. Pietro Turner Work Phone: [facility] 02-19-2024 06:00-0400 Respiratory rate 17 /min Dr. Pietro Turner Work Phone: [facility] 02-19-2024 06:00-0400 SaO2% (BldA) [Mass fraction] 99 % Dr. Pietro Turner Work Phone: [facility] 02-19-2024 06:00-0400 Systolic blood pressure 138 mm[Hg] Dr. Pietro Turner Work Phone: [facility] 02-19-2024 02:25-0400 Body height 185.[address] Pietro Turner Work Phone: [facility] 02-19-2024 02:25-0400 Body mass index (BMI) [Ratio] 33.9 kg/m2 Dr. Pietro Turner Work Phone: [facility] 02-19-2024 02:25-0400 Body weight 116.[address] Pietro Turner Work Phone: [facility] 01-07-2024 14:00-0400 Body height 185.[address] Pietro Turner Work Phone: [facility] 01-07-2024 14:00-0400 Body weight 119.[address] Pietro Turner Work Phone: [facility] 01-03-2024 13:37-0500 Body height 182.[address] Pietro Turner Work Phone: [facility] 01-03-2024 13:37-0500 Body mass index (BMI) [Ratio] 35.7 kg/m2 Dr. Pietro Turner Work Phone: [facility] 01-03-2024 13:37-0500 Body temperature 97.5 [degF] Dr. Pietro Turner Work Phone: [facility] 01-03-2024 13:37-0500 Body weight 119.[address] Pietro Turner Work Phone: [facility] 01-03-2024 13:37-0500 Diastolic blood pressure 82 mm[Hg] Dr. Pietro Turner Work Phone: [facility] 01-03-2024 13:37-0500 Heart rate 69 /min Dr. Pietro Turner Work Phone: [facility] 01-03-2024 13:37-0500 Respiratory rate 16 /min Dr. Pietro Turner Work Phone: [facility] 01-03-2024 13:37-0500 SaO2% (BldA) [Mass fraction] 97 % Dr. Pietro Turner Work Phone: [facility] 01-03-2024 13:37-0500 Systolic blood pressure 153 mm[Hg] Dr. Pietro Turner Work Phone: [facility] 11-14-2023 14:00-0500 Body weight 119.[address] Pietro Turner Work Phone: [facility] 11-07-2023 10:37-0500 Body mass index (BMI) [Ratio] 36.4 kg/m2 Dr. Pietro Turner Work Phone: [facility] 11-07-2023 10:37-0500 Body temperature 97.4 [degF] Dr. Pietro Turner Work Phone: [facility] 11-07-2023 10:37-0500 Body weight 122.[address] Pietro Turner Work Phone: [facility] 11-07-2023 10:37-0500 Diastolic blood pressure 79 mm[Hg] Dr. Pietro Turner Work Phone: [facility] 11-07-2023 10:37-0500 Heart rate 82 /min Dr. Pietro Turner Work Phone: [facility] 11-07-2023 10:37-0500 Respiratory rate 16 /min Dr. Pietro Turner Work Phone: [facility] 11-07-2023 10:37-0500 SaO2% (BldA) [Mass fraction] 94 % Dr. Pietro Turner Work Phone: [facility] 11-07-2023 10:37-0500 Systolic blood pressure 127 mm[Hg] Dr. Pietro Turner Work Phone: [facility] 09-25-2023 14:55-0500 Body height 182.[address] Pietro Turner Work Phone: [facility] 09-25-2023 14:55-0500 Body mass index (BMI) [Ratio] 35.5 kg/m2 Dr. Pietro Turner Work Phone: [facility] 09-25-2023 14:55-0500 Body weight 118.[address] Pietro Turner Work Phone: [facility] 09-25-2023 14:55-0500 Diastolic blood pressure 86 mm[Hg] Dr. Pietro Turner Work Phone: [facility] [facility] 09-25-2023 14:55-0500 Heart rate 63 /min Dr. Pietro Turner Work Phone: [facility] 09-25-2023 14:55-0500 Respiratory rate 14 /min Dr. Pietro Turner Work Phone: [facility] 09-25-2023 14:55-0500 Systolic blood pressure 141 mm[Hg] Dr. Pietro Turner Work Phone: [facility] 08-31-2023 16:37-0400 Body mass index (BMI) [Ratio] 36.6 kg/m2 Dr. Pietro Turner Work Phone: [facility] 08-31-2023 16:37-0400 Body temperature 98.3 [degF] Dr. Pietro Turner Work Phone: [facility] 08-31-2023 16:37-0400 Body weight 122.[address] Pietro Turner Work Phone: [facility] 08-31-2023 16:37-0400 Diastolic blood pressure 80 mm[Hg] Dr. Pietro Turner Work Phone: [facility] 08-31-2023 16:37-0400 Heart rate 82 /min Dr. Pietro Turner Work Phone: [facility] 08-31-2023 16:37-0400 Respiratory rate 17 /min Dr. Pietro Turner Work Phone: [facility] 08-31-2023 16:37-0400 SaO2% (BldA) [Mass fraction] 97 % Dr. Pietro Turner Work Phone: [facility] 08-31-2023 16:37-0400 Systolic blood pressure 139 mm[Hg] Dr. Pietro Turner Work Phone: [facility] 08-23-2023 15:14-0400 Body mass index (BMI) [Ratio] 35.5 kg/m2 Dr. Pietro Turner Work Phone: [facility] 08-23-2023 15:14-0400 Body temperature 97.7 [degF] Dr. Pietro Turner Work Phone: [facility] 08-23-2023 15:14-0400 Body weight 122.[address] Pietro Turner Work Phone: [facility] 08-23-2023 15:14-0400 Diastolic blood pressure 76 mm[Hg] Dr. Pietro Turner Work Phone: [facility] 08-23-2023 15:14-0400 Heart rate 73 /min Dr. Pietro Turner Work Phone: [facility] 08-23-2023 15:14-0400 Respiratory rate 16 /min Dr. Pietro Turner Work Phone: [facility] 08-23-2023 15:14-0400 SaO2% (BldA) [Mass fraction] 97 % Dr. Pietro Turner Work Phone: [facility] 08-23-2023 15:14-0400 Systolic blood pressure 135 mm[Hg] Dr. Pietro Turner Work Phone: [facility] 03-07-2023 14:48-0400 Body height 185.[address] Pietro Turner Work Phone: [facility] 03-07-2023 14:48-0400 Body mass index (BMI) [Ratio] 35.6 kg/m2 Dr. Pietro Turner Work Phone: [facility] 03-07-2023 14:48-0400 Body temperature 98.6 [degF] Dr. Pietro Turner Work Phone: [facility] 03-07-2023 14:48-0400 Body weight 122.[address] Pietro Turner Work Phone: [facility] 03-07-2023 14:48-0400 Diastolic blood pressure 86 mm[Hg] Dr. Pietro Turner Work Phone: [facility] 03-07-2023 14:48-0400 Heart rate 88 /min Dr. Pietro Turner Work Phone: [facility] 03-07-2023 14:48-0400 Respiratory rate 18 /min Dr. Pietro Turner Work Phone: [facility] 03-07-2023 14:48-0400 SaO2% (BldA) [Mass fraction] 94 % Dr. Pietro Turner Work Phone: [facility] 03-07-2023 14:48-0400 Systolic blood pressure 142 mm[Hg] Dr. Pietro Turner Work Phone: [facility] 01-29-2023 15:06-0400 Body mass index (BMI) [Ratio] 35.4 kg/m2 Dr. Pietro Turner Work Phone: [facility] 01-29-2023 15:06-0400 Body weight 122.[address] Pietro Turner Work Phone: [facility] 01-29-2023 15:06-0400 Diastolic blood pressure 78 mm[Hg] Dr. Pietro Turner Work Phone: [facility] 01-29-2023 15:06-0400 Heart rate 83 /min Dr. Pietro Turner Work Phone: [facility] 01-29-2023 15:06-0400 Respiratory rate 18 /min Dr. Pietro Turner Work Phone: [facility] 01-29-2023 15:06-0400 SaO2% (BldA) [Mass fraction] 94 % Dr. Pietro Turner Work Phone: [facility] 01-29-2023 15:06-0400 Systolic blood pressure 146 mm[Hg] Dr. Pietro Turner Work Phone: [facility] 11-09-2022 11:12-0500 Body mass index (BMI) [Ratio] 35.9 kg/m2 Dr. Pietro Turner Work Phone: [facility] 11-09-2022 11:12-0500 Body weight 123.[address] Pietro Turner Work Phone: [facility] 11-09-2022 11:12-0500 Diastolic blood pressure 93 mm[Hg] Dr. Pietro Turner Work Phone: [facility] 11-09-2022 11:12-0500 Heart rate 87 /min Dr. Pietro Turner Work Phone: [facility] 11-09-2022 11:12-0500 Respiratory rate 18 /min Dr. Pietro Turner Work Phone: [facility] 11-09-2022 11:12-0500 Systolic blood pressure 179 mm[Hg] Dr. Pietro Turner Work Phone: [facility] 10-18-2022 14:11-0500 Body temperature 97.6 [degF] Dr. Pietro Turner Work Phone: [facility] Work Phone: 10-18-2022 14:11-0500 Body weight 119.[address] Pietro Turner Work Phone: [facility] Work Phone: 10-18-2022 14:11-0500 Diastolic blood pressure 87 mm[Hg] Dr. Pietro Turner Work Phone: [facility] Work Phone: 10-18-2022 14:11-0500 Heart rate 67 /min Dr. Pietro Turner Work Phone: [facility] Work Phone: 10-18-2022 14:11-0500 Respiratory rate 16 /min Dr. Pietro Turner Work Phone: [facility] Work Phone: 10-18-2022 14:11-0500 SaO2% (BldA) [Mass fraction] 98 % Dr. Pietro Turner Work Phone: [facility] Work Phone: 10-18-2022 14:11-0500 Systolic blood pressure 152 mm[Hg] Dr. Pietro Turner Work Phone: [facility] Work Phone: 07-29-2022 23:13-0400 Body height 185.[address] Pietro Turner Work Phone: [facility] Work Phone: 07-29-2022 23:13-0400 Body mass index (BMI) [Ratio] 34.2 kg/m2 Dr. Pietro Turner Work Phone: [facility] Work Phone: 07-29-2022 23:13-0400 Body temperature 97.4 [degF] Dr. Pietro Turner Work Phone: [facility] Work Phone: 07-29-2022 23:13-0400 Body weight 117.[address] Pietro Turner Work Phone: [facility] Work Phone: 07-29-2022 23:13-0400 Diastolic blood pressure 86 mm[Hg] Dr. Pietro Turner Work Phone: [facility] Work Phone: 07-29-2022 23:13-0400 Heart rate 78 /min Dr. Pietro Turner Work Phone: [facility] Work Phone: 07-29-2022 23:13-0400 Respiratory rate 14 /min Dr. Pietro Turner Work Phone: [facility] Work Phone: 07-29-2022 23:13-0400 SaO2% (BldA) [Mass fraction] 100 % Dr. Pietro Turner Work Phone: [facility] Work Phone: 07-29-2022 23:13-0400 Systolic blood pressure 173 mm[Hg] Dr. Pietro Turner Work Phone: [facility] Work Phone: 07-19-2022 13:41-0400 Body temperature 98 [degF] Dr. Pietro Turner Work Phone: [facility] Work Phone: 07-19-2022 13:41-0400 Body weight 122.[address] Pietro Turner Work Phone: [facility] Work Phone: 07-19-2022 13:41-0400 Diastolic blood pressure 90 mm[Hg] Dr. Pietro Turner Work Phone: [facility] Work Phone: 07-19-2022 13:41-0400 Heart rate 68 /min Dr. Pietro Turner Work Phone: [facility] Work Phone: 07-19-2022 13:41-0400 Respiratory rate 16 /min Dr. Pietro Turner Work Phone: [facility] Work Phone: 07-19-2022 13:41-0400 SaO2% (BldA) [Mass fraction] 97 % Dr. Pietro Turner Work Phone: [facility] Work Phone: 07-19-2022 13:41-0400 Systolic blood pressure 158 mm[Hg] Dr. Pietro Turner Work Phone: [facility] Work Phone: 05-29-2022 14:24-0400 Body temperature 97.8 [degF] Dr. Pietro Turner Work Phone: [facility] Work Phone: 05-29-2022 14:24-0400 Diastolic blood pressure 80 mm[Hg] Dr. Pietro Turner Work Phone: [facility] Work Phone: 05-29-2022 14:24-0400 Heart rate 70 /min Dr. Pietro Turner Work Phone: [facility] Work Phone: 05-29-2022 14:24-0400 Respiratory rate 16 /min Dr. Pietro Turner Work Phone: [facility] Work Phone: 05-29-2022 14:24-0400 Systolic blood pressure 130 mm[Hg] Dr. Pietro Turner Work Phone: [facility] Work Phone: 05-18-2022 16:03-0400 Body height 185.[address] Pietro Turner Work Phone: [facility] Work Phone: 05-18-2022 16:03-0400 Body mass index (BMI) [Ratio] 34.4 kg/m2 Dr. Pietro Turner Work Phone: [facility] Work Phone: 05-18-2022 16:03-0400 Body temperature 98.2 [degF] Dr. Pietro Turner Work Phone: [facility] Work Phone: 05-18-2022 16:03-0400 Body weight 118.[address] Pietro Turner Work Phone: [facility] Work Phone: 05-18-2022 16:03-0400 Diastolic blood pressure 86 mm[Hg] Dr. Pietro Turner Work Phone: [facility] Work Phone: 05-18-2022 16:03-0400 Heart rate 75 /min Dr. Pietro Turner Work Phone: [facility] Work Phone: 05-18-2022 16:03-0400 Respiratory rate 16 /min Dr. Pietro Turner Work Phone: [facility] Work Phone: 05-18-2022 16:03-0400 SaO2% (BldA) [Mass fraction] 98 % Dr. Pietro Turner Work Phone: [facility] Work Phone: 05-18-2022 16:03-0400 Systolic blood pressure 138 mm[Hg] Dr. Pietro Turner Work Phone: [facility] Work Phone: 05-11-2022 09:41-0400 Body height 185.[address] Pietro Turner Work Phone: [facility] Work Phone: 05-11-2022 09:41-0400 Body mass index (BMI) [Ratio] 34.5 kg/m2 Dr. Pietro Turner Work Phone: [facility] Work Phone: 05-11-2022 09:41-0400 Body temperature 98.2 [degF] Dr. Pietro Turner Work Phone: [facility] Work Phone: 05-11-2022 09:41-0400 Body weight 118.[address] Pietro Turner Work Phone: [facility] Work Phone: 05-11-2022 09:41-0400 Diastolic blood pressure 68 mm[Hg] Dr. Pietro Turner Work Phone: [facility] Work Phone: 05-11-2022 09:41-0400 Heart rate 67 /min Dr. Pietro Turner Work Phone: [facility] Work Phone: 05-11-2022 09:41-0400 Respiratory rate 18 /min Dr. Pietro Turner Work Phone: [facility] Work Phone: 05-11-2022 09:41-0400 SaO2% (BldA) [Mass fraction] 99 % Dr. Pietro Turner Work Phone: [facility] Work Phone: 05-11-2022 09:41-0400 Systolic blood pressure 130 mm[Hg] Dr. Pietro Turner Work Phone: [facility] Work Phone: 05-02-2022 14:07-0400 Diastolic blood pressure 80 mm[Hg] Dr. Pietro Turner Work Phone: [facility] Work Phone: 05-02-2022 14:07-0400 Systolic blood pressure 138 mm[Hg] Dr. Pietro Turner Work Phone: [facility] Work Phone: 05-02-2022 14:07-0400 Body mass index (BMI) [Ratio] 33.6 kg/m2 Dr. Pietro Turner Work Phone: [facility] Work Phone: 05-02-2022 14:07-0400 Body weight 115.[address] Pietro Turner Work Phone: [facility] Work Phone: 05-02-2022 14:07-0400 Heart rate 74 /min Dr. Pietro Turner Work Phone: [facility] Work Phone: 05-02-2022 14:07-0400 Respiratory rate 18 /min Dr. Pietro Turner Work Phone: [facility] Work Phone: 05-02-2022 14:07-0400 SaO2% (BldA) [Mass fraction] 96 % Dr. Pietro Turner Work Phone: [facility] Work Phone: 02-16-2022 10:43-0400 Body mass index (BMI) [Ratio] 34.4 kg/m2 Dr. Pietro Turner Work Phone: [facility] Work Phone: 02-16-2022 10:43-0400 Body temperature 97.8 [degF] Dr. Pietro Turner Work Phone: [facility] Work Phone: 02-16-2022 10:43-0400 Body weight 118.[address] Pietro Turner Work Phone: [facility] Work Phone: 02-16-2022 10:43-0400 Diastolic blood pressure 84 mm[Hg] Dr. Pietro Turner Work Phone: [facility] Work Phone: 02-16-2022 10:43-0400 Heart rate 84 /min Dr. Pietro Turner Work Phone: [facility] Work Phone: 02-16-2022 10:43-0400 Respiratory rate 14 /min Dr. Pietro Turner Work Phone: [facility] Work Phone: 02-16-2022 10:43-0400 SaO2% (BldA) [Mass fraction] 99 % Dr. Pietro Turnre Work Phone: [facility] Work Phone: 02-16-2022 10:43-0400 Systolic blood pressure 152 mm[Hg] Dr. Pietro Turner Work Phone: [facility] Work Phone: 02-16-2022 10:43-0400 Body height 185.[address] Pietro Turner Work Phone: [facility] Work Phone: 02-16-2022 10:43-0400 Body mass index (BMI) [Ratio] 34.4 kg/m2 Dr. Pietro Turner Work Phone: [facility] Work Phone: 02-16-2022 10:43-0400 Body temperature 97.8 [degF] Dr. Pietro Turner Work Phone: [facility] Work Phone: 02-16-2022 10:43-0400 Body weight 118.[address] Pietro Turner Work Phone: [facility] Work Phone: 02-16-2022 10:43-0400 Diastolic blood pressure 84 mm[Hg] Dr. Pietro Turner Work Phone: [facility] Work Phone: 02-16-2022 10:43-0400 Heart rate 84 /min Dr. Pietro Turner Work Phone: [facility] Work Phone: 02-16-2022 10:43-0400 Respiratory rate 14 /min Dr. Pietro Turner Work Phone: [facility] Work Phone: 02-16-2022 10:43-0400 SaO2% (BldA) [Mass fraction] 99 % Dr. Pietro Turner Work Phone: [facility] Work Phone: 02-16-2022 10:43-0400 Systolic blood pressure 152 mm[Hg] Dr. Pietro Turner Work Phone: [facility] Work Phone: 12-22-2021 12:08-0500 Body mass index (BMI) [Ratio] 33.7 kg/m2 Dr. Pietro Turner Work Phone: [facility] Work Phone: 12-22-2021 12:08-0500 Body temperature 95.9 [degF] Dr. Pietro Turner Work Phone: [facility] Work Phone: 12-22-2021 12:08-0500 Body weight 116.[address] Pietro Turner Work Phone: [facility] Work Phone: 12-22-2021 12:08-0500 Diastolic blood pressure 80 mm[Hg] Dr. Pietro Turner Work Phone: [facility] Work Phone: 12-22-2021 12:08-0500 Heart rate 74 /min Dr. Pietro Turner Work Phone: [facility] Work Phone: 12-22-2021 12:08-0500 Respiratory rate 16 /min Dr. Pietro Turner Work Phone: [facility] Work Phone: 12-22-2021 12:08-0500 SaO2% (BldA) [Mass fraction] 99 % Dr. Pietro Turner Work Phone: [facility] Work Phone: 12-22-2021 12:08-0500 Systolic blood pressure 120 mm[Hg] Dr. Pietro Turner Work Phone: [facility] Work Phone: 11-28-2021 11:44-0500 Body mass index (BMI) [Ratio] 34 kg/m2 Dr. Pietro Turner Work Phone: [facility] Work Phone: 11-28-2021 11:44-0500 Body temperature 97.6 [degF] Dr. Pietro Turner Work Phone: [facility] Work Phone: 11-28-2021 11:44-0500 Body weight 117.[address] Pietro Turner Work Phone: [facility] Work Phone: 11-28-2021 11:44-0500 Diastolic blood pressure 93 mm[Hg] Dr. Pietro Turner Work Phone: [facility] Work Phone: 11-28-2021 11:44-0500 Heart rate 75 /min Dr. Pietro Turner Work Phone: [facility] Work Phone: 11-28-2021 11:44-0500 Respiratory rate 16 /min Dr. Pietro Turner Work Phone: [facility] Work Phone: 11-28-2021 11:44-0500 SaO2% (BldA) [Mass fraction] 97 % Dr. Pietro Turner Work Phone: [facility] Work Phone: 11-28-2021 11:44-0500 Systolic blood pressure 166 mm[Hg] Dr. Pietro Turner Work Phone: [facility] Work Phone: 11-02-2021 05:57-0500 Body weight 117.[address] Pietro Turner Work Phone: [facility] Work Phone: 11-01-2021 06:08-0500 Body mass index (BMI) [Ratio] 34.2 kg/m2 Dr. Pietro Turner Work Phone: [facility] Work Phone: Encounters Encounter Date Encounter Type Care Provider Facility Start: 08-24-2025 End: 08-24-2025 ambulatory [facility] Start: 08-14-2025 End: 08-14-2025 ambulatory [facility] Facility:[facility] Start: 08-10-2025 End: 08-10-2025 Jocelyne MARTINEZ -[facility] Work Phone: Start: 08-10-2025 End: 08-10-[address] Pietro Turner MD Work Phone: -[facility] Start: 07-28-2025 End: 07-28-[address] Pietro Turner MD -[facility] Work Phone: Start: 07-28-2025 End: 07-28-2025 Dr. Pietro Turner MD -[facility] Work Phone: Start: 07-28-2025 End: 07-28-[address] Pietro Turner MD Work Phone: -[facility] Start: 06-24-2025 End: 06-24-[address] Pietro Turner MD Work Phone: -Laboratory Start: 06-24-2025 End: 06-24-[address] Pietro Turner MD -Laboratory Work Phone: Start: 06-24-2025 End: 06-24-2025 Dr. Pietro Turner MD -Laboratory Work Phone: Start: 06-24-2025 End: 06-24-2025 ambulatory Pietro Turner Facility:[facility] Start: 06-17-2025 End: 06-17-[address] Pietro Turner MD -[facility] Work Phone: Start: 06-17-2025 End: 06-17-2025 Dr. Pietro Turner MD -[facility] Work Phone: Start: 06-17-2025 End: 06-17-[address] Pietro Turner MD Work Phone: -[facility] Start: 06-15-2025 End: 06-15-[address] Pietro Turner MD Work Phone: -Laboratory Start: 06-15-2025 End: 06-15-[address] Pietro Turner MD -Laboratory Work Phone: Start: 06-15-2025 End: 06-15-2025 Dr. Pietro Turner MD -Laboratory Work Phone: Start: 06-15-2025 End: 06-15-2025 ambulatory Pietro Turner Facility:[facility] Start: 05-18-2025 End: 05-18-[address] Pietro Turner MD Work Phone: -Laboratory Specimen Start: 05-18-2025 End: 05-18-[address] Pietro Turner MD -Laboratory Specimen Work Phone: Start: 05-18-2025 End: 05-18-2025 Dr. Pietro Turner MD -Laboratory Specim en Work Phone: Start: 05-18-2025 End: 05-18-[address] Pietro Turner MD -[facility] Work Phone: Start: 05-18-2025 End: 05-18-2025 Dr. Pietro Turner MD -[facility] Work Phone: Start: 05-18-2025 End: 05-18-[address] Pietro Turner MD Work Phone: -[facility] Start: 05-18-2025 End: 05-18-2025 ambulatory Pietro Turner Facility:[facility] Start: 05-14-2025 End: 05-14-2025 [id number] Start: 04-27-2025 End: 04-27-[address] Pietro Turner MD -[facility] Work Phone: Start: 04-27-2025 End: 04-27-2025 Dr. Pietro Turner MD -[facility] Work Phone: Start: 04-27-2025 End: 04-27-[address] Pietro Turner MD Work Phone: -[facility] Start: 04-21-2025 ambulatory Pietro Turner Facility :[facility] Start: 02-09-2025 End: 02-09-[address] Pietro Turner MD Work Phone: [facility] Work Phone: Start: 02-09-2025 End: 02-09-[address] Pietro Turner MD -Laboratory [facility] Start: 02-09-2025 End: 02-09-2025 Dr. Pietro Turner MD -Laboratory, [place] Start: 02-09-2025 End: 02-09-2025 ambulatory [facility] Start: 01-01-2025 End: 01-01-[address] Pietro Turner MD -[facility] Work Phone: Start: 01-01-2025 End: 01-01-2025 Dr. Pietro Turner MD -[facility] Work Phone: Start: 01-01-2025 End: 01-01-2025 ambulatory [facility] Start: 12-22-2024 ambulatory [facility] Start: 12-08-2024 ambulatory [facility] Start: 11-25-2024 End: 11-25-[address] Marck Orellana MD -[facility] Work Phone: Start: 11-25-2024 End: 11-25-2024 Dr. Marck Orellana MD -[facility] Work Phone: Start: 11-25-2024 End: 11-25-2024 ambulatory [facility] Start: 11-14-2024 End: 11-14-2024 [facility] Start: 11-14-2024 End: 11-14-2024 Emergency department patient visit Dr. Lamberto Desai DO -Emergency Department Work Phone: Start: 11-13-2024 End: 11-13-2024 Patient encounter procedure Solitario Guy PA -[facility] Work Phone: Start: 11-13-2024 End: 11-13-2024 Solitario Guy PA -[facility] Work Phone: Start: 11-13-2024 End: 11-13-2024 ambulatory Solitario KILGORE Facility:[facility] Start: 11-07-2024 Non-patient / Non-visit Dr. Dimitry Camp MD -[facility] Start: 11-07-2024 End: 11-07-2024 Admission to same day surgery center Dr. Dimitry Camp MD -Endoscopy Work Phone: Start: 11-07-2024 End: 11-07-2024 Dr. Dimitry Camp MD -Endoscopy Work Phone: Start: 11-07-2024 End: 11-07-2024 ambulatory Pietro Turner Facility:[facility] Start: 10-30-2024 End: 10-30-[address] Pietro Turner MD Work Phone: [facility] Work Phone: Start: 10-30-2024 End: 10-30-2024 Discharged Recurring Solitario KILGORE -Occupational Thera py Work Phone: Start: 10-30-2024 End: 10-30-2024 Solitario KILGORE -Occupational Therap y Work Phone: Start: 10-27-2024 ambulatory Marck Orellana Facility:[facility] Start: 10-27-2024 Non-patient / Non-visit Dr. Marck Orellana MD -[facility] Start: 10-27-2024 End: 10-27-2024 Patient encounter procedure Jocelyne Dickey [employer] -Cardiovascular Services Work Phone: Start: 10-27-2024 End: 10-27-2024 Dr. Marck Orellana MD [facility] Start: 10-27-2024 End: 10-27-2024 ambulatory Jocelyne Dickey NP Facility:[facility] Start: 10-16-2024 End: 10-16-2024 Patient encounter procedure Solitario KILGORE -[facility] Work Phone: Start: 10-16-2024 End: 10-16-2024 Solitario KILGORE -[facility] Work Phone: Start: 10-16-2024 End: 10-16-2024 ambulatory Solitario KILGORE Facility:[facility] Start: 10-14-2024 End: 10-14-[address] Dimitry Camp MD -[facility] Work Phone: Start: 10-14-2024 End: 10-14-2024 ambulatory Pietro Turner Facility:[facility] Start: 09-26-2024 End: 09-26-2024 ambulatory Solitario KILGORE Facility:[facility] Start: 09-26-2024 End: 09-26-2024 ambulatory Solitario KILGORE Facility:[facility] Start: 09-11-2024 ambulatory Pietro Turner Facility :[facility] Start: 09-05-2024 End: 09-05-2024 ambulatory Pietro Turner Facility:[facility] Start: 02-19-2024 End: 02-19-2024 Emergency department patient visit Dr. Pietro Turner Work Phone: [facility]-Emergency Department Work Phone: Start: 01-07-2024 End: 01-27-[address] Pietro Turner Work Phone: [facility] Work Phone: Start: 01-07-2024 End: 01-27-[address] [facility] Work [facility] Start: 01-07-[address] Piet[facility] Work [facility] Start: 01-03-2024 End: 01-03-[address] Pietro Turner Work Phone: [facility] Work Phone: Start: 01-03-2024 End: 01-03-[address] Pietro Turner Work Phone: [facility] Work Phone: Start: 11-14-2023 End: 01-31-[address] Pietro Turner Work Phone: [facility] Work Phone: Start: 11-07-2023 End: 11-07-[address] Pietro Turner Work Phone: [facility] Work Phone: Start: 10-05-2023 End: 10-05-2023 ambulatory KASEY MANJIT NATALY Facility:[facility] Start: 09-25-2023 End: 09-25-[address] Pietro Turner Work Phone: [facility] Work Phone: Start: 09-24-2023 End: 09-24-[address] Pietro Turner Work Phone: [facility] Work Phone: Start: 09-24-2023 End: 09-24-[address] Pietro Turner Work Phone: [facility]-Laboratory Work Phone: Start: 08-31-2023 End: 08-31-[address] Pietro Turner Work Phone: [facility] Work Phone: Start: 08-23-2023 End: 08-23-[address] Pietro Turner Work Phone: [facility] [place] Work Phone: Start: 03-30-2023 End: 03-30-[address] Pietro Turner Work Phone: [facility] Work Phone: Start: 03-30-2023 End: 03-30-2023 Patient encounter procedure Dr. Pietro Turner Work Phone: [facility] Start: 03-07-2023 End: 03-07-[address] Pietro Turner Work Phone: [facility] [place] Start: 03-05-2023 Non-patient / Non-visit Dr. Pietro Turner Work Phone: [facility] Start: 03-05-2023 End: 03-05-[address] Pietro Turner Work Phone: [facility] Work Phone: Start: 03-05-2023 End: 03-05-[address] Pietro Turner Work Phone: [facility]Cardi[facility] Start: 01-29-2023 End: 01-29-[address] Pietro Turner Work Phone: [facility] Start: 01-22-2023 End: 01-22-[address] Pietro Turner Work Phone: [facility] Start: 11-09-2022 End: 11-09-[address] Pietro Turner Work Phone: [facility] Start: 10-18-2022 End: 10-18-[address] Pietro Turner Work Phone: [facility] Work Phone: Start: 10-18-2022 End: 10-18-[address] Pietro Turner Work Phone: [facility] [place] Start: 09-27-2022 End: 09-27-[address] Pietro Turner Work Phone: [facility] Work Phone: Start: 09-27-2022 End: 09-27-[address] [facility] Start: 07-29-2022 End: 07-30-2022 Emergency department patient visit Dr. Pietro Turner Work Phone: [facility] Start: 07-19-2022 End: 07-19-[address] Pietro Turner Work Phone: [facility] [place] Start: 06-07-2022 End: 06-07-[address] Pietro Turner Work Phone: [facility] Start: 05-29-2022 End: 05-29-[address] Pietro Turner Work Phone: [facility] [place] Start: 05-22-2022 Non-patient / Non-visit Dr. Pietro Turner Work Phone: [facility] Start: 05-18-2022 End: 05-18-[address] Pietro Turner Work Phone: [facility] [place] Start: 05-11-2022 End: 05-11-[address] Pietro Turner Work Phone: [facility] [place] Start: 05-08-2022 End: 05-08-[address] [facility] Start: 05-02-2022 End: 05-02-[address] Pietro Turner Work Phone: [facility] Start: 04-24-2022 End: 04-24-[address] [facility] Start: 02-20-2022 Non-patient / Non-visit Dr. Pietro Turner Work Phone: [facility] Start: 02-20-2022 End: 02-20-[address] Piet[facility] Turner [facility] Start: 02-16-2022 End: 02-16-[address] Pietro Turner [facility] Start: 02-16-2022 End: 02-16-[address] Pietro Turner Work Phone: [facility] Start: 01-11-2022 End: 01-11-[address] Pietro Turner Work Phone: [facility] Start: 12-22-2021 End: 12-22-[address] Piet[facility] Turner [facility] Start: 11-28-2021 End: 11-28-[address] Pietro Turner Work Phone: [facility] Start: 11-02-2021 End: 11-02-2021 Admission to same day surgery center Dr. 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 Pietro Turner MD Work Phone: Start: 08-14-[address] Rohini Turner MD Work Phone: Start: 08-14-2025 Nucleated red blood cell count procedure Dr. Pietro Turner MD Work Phone: Start: 08-14-2025 Platelet mean volume determination Dr. Pietro Turner MD Work Phone: Start: 08-14-2025 Total cholesterol:HD L ratio measurement Dr. Pietro Turner MD Work Phone: Start: 08-14-[address] Pietro Turner MD Work Phone: Start: 06-15-2025 Total cholesterol:HD L ratio measurement Dr. Pietro Turner MD Work Phone: Start: 06-15-[address] Pietro Turner MD Work Phone: Start: 05-18-2025 Urine microscopy: re d cells Dr. Pietro Turner MD Work Phone: Start: 05-18-2025 Urnls dip stick/tabl et reagent auto microscopy Dr. Pietro Turner MD Work Phone: Start: 02-09-2025 Prostate specific an tigen measurement Dr. Pietro Turner MD Work Phone: Comment on above: This test was perfor med using the [employer] tPSA method. Measured values of a patient sample can vary depending on the testing procedure used. PSA values determined on patient samples by different testing procedures cannot be used interchangeably. If there is a change in PSA assays while monitoring therapy, sequential testing should be performed to confirm baseline values. Start: 02-09-2025 Vitamin D, 25-hydrox y measurement Dr. Pietro Turner MD Work Phone: Comment on above: Vitamin D StatusDefi ciency: <20 ng/mL (50nmol/L)Insufficiency: 20-30 ng/mL (50-75 nmol/L)Sufficiency: 30-100 ng/mL (75-250 nmol/L)Toxicity: >100 ng/mL (>250 nmol/L) Start: 11-14-2024 Plain chest X-ray Dr. Ady Turner MD Work Phone: Start: 11-07-[address] Pietro Turner MD Work Phone: Start: 02-19-2024 Computed tomography of abdomen and pelvis with intravenous contrast Dr. Pietro Turner Work Phone: Start: 02-19-2024 Plain chest X-ray Dr. Ady Turner Work Phone: Start: 03-05-2023 Radionuclide imaging of perfusion of myocardium under exercise stress Dr. Pietro Turner Work Phone: Start: 07-29-2022 X-ray of both feet Dr. Pietro Turner Work Phone: Start: 02-20-2022 End: 02-20-2022 Measurement of occult blood in stool specimen using immunoassay Dr. Pietro Turner Work Phone: Start: 12-29-2020 Cardi[address] stres s testing DR JOCELYNE PHELPS MD Comment on above: No evidence of ische ashley or prior infarction. EF estimated at 47%, Visually EF appears close to 55-60% Start: 12-29-[address] ADALBERTO PHELPS MD Comment on above: EF 55-60% Start: 07-26-2020 History of placement of stent for coronary artery disease History of coronary artery stent placement Dr. Marck Orellana MD Comment on above: [id number]-[id number] LAD w/ 3.5 x 28 mm Synergy Stent 07/26/2020 Start: 07-26-[address] JOCELYNE PHELPS MD Comment on above: Left ventricle: Syst olic function is normal. The estimated EF is 55-60%. LAD: Proximal vessel lesion: There is a 95% stenosis. Critical proximal LAD stenosis. Normal LV systolic function. Moderately elevated LVEDP. PCI proximal LADto follow. Start: 07-26-2020 Post percutaneous transluminal coronary angioplasty (finding) DR JOCELYNE PHELPS MD Comment on above: Percutaneous interve ntion on the 95% stenosis in the proximal LAD. Stent placement. Balloon angioplasty. Start: 07-16-[address]res s testing DR JOCELYNE PHELPS MD Comment on above: Reversible defect no rafael in the apica/anteroapical wall segment that could suggest ischemia. Left ventricular EF is 47% which appears to be mildly reduced. Consider correlating with an echo. 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 Pietro Turner MD Work Phone: Measurement of occul t blood in stool specimen using immunoassay Dr. Pietro Turner Work Phone: Tonsillectomy and adenoidectomy DR JOCELYNE PHELPS MD Plan of Treatment Date Care Activity Detail Author Start: 08-24-2025 End: 08-24-2025 -[facility] Work Phone: Start: 08-14-2025 End: 08-14-2025 -Laboratory Work Phone: Start: 08-10-2025 End: 08-10-2025 Evaluation of diagnostic study results [facility] Start: 06-17-2025 [facility] Start: 02-09-2025 Testosterone measurement [facility] Start: 11-14-2024 [facility] Start: 11-14-2024 [facility] Start: 11-07-2024 Patient discharge [facility] Start: 02-19-2024 [facility] Start: 09-25-2023 Patient referral [facility] Work Phone: Start: 05-11-2022 Patient referral [facility] Work Phone: CBC W Auto Different ial panel - Blood [facility] Work Phone: CBC W Auto Different ial panel - Blood [facility] Cobalamin (Vitamin B 12) [Mass/volume] in Serum or Plasma [facility] Colonoscopy [facility] Comprehensive metabo [facility] 1999 panel - Serum or Plasma [facility] Comprehensive [facility] 1999 panel - Serum or Plasma [facility] Creatinine [Mass/debra e] in 24 hour Urine [facility] Hemoglobin A1c/Hemog lobin.total in Blood [facility] Hemoglobin A1c/Hemog lobin.total in Blood [facility] Hemoglobin A1c/Hemog lobin.total in Blood [facility] Lipid 1995 panel - S miranda or Plasma [facility] Work Phone: Lipid 1995 panel - S miranda or Plasma [facility] Lipid 1995 panel - S miranda or Plasma [facility] Magnesium measurement [facility] Patient Education [facility] Work Phone: Patient referral [facility] Work Phone: Prostate specific an tigen measurement [facility] Work Phone: Prostate specific an tigen measurement [facility] Protein [Mass/time] in 24 hour Urine [facility] Serum testosterone measurement [facility] Serum testosterone measurement [facility] Serum testosterone measurement [facility] T4 free measurement [facility] Testosterone Free [M ass/volume] in Serum or Plasma [facility] Work Phone: Testosterone Free [M ass/volume] in Serum or Plasma [facility] Testosterone Free [M ass/volume] in Serum or Plasma [facility] Testosterone Free [M ass/volume] in Serum or Plasma [facility] Testosterone Free [M ass/volume] in Serum or Plasma [facility] Testosterone measurement [facility] Work Phone: Testosterone measurement [facility] Testosterone measurement [facility] Testosterone measurement [facility] Testosterone measurement [facility] Testosterone measurement [facility] Thyroid stimulating hormone measurement [facility] Work Phone: Thyroid stimulating hormone measurement [facility] Thyroid stimulating hormone measurement [facility] Triiodothyronine, fr ee measurement [facility] Urinalysis complete panel - Urine [facility] Vitamin D, 25-hydrox y measurement [facility] Work Phone: [facility] Immunizations Immunization Date Immunization Notes Care Provider Fa cility 07-20-2023 Covid (Moderna) Dr. Pietro whittaker Work Phone: [facility] 07-16-2023 influenza, injectabl e, quadrivalent, preservative free Dr. Pietro Turner Work Phone: [facility] 02-03-2021 Covid (Pfizer) Dr. Pietro schmitt Work Phone: [facility] 01-13-2021 Covid (Pfizer) Dr. Pietro schmitt Work Phone: [facility] 08-02-2020 influenza, seasonal, injectable Dr. Pietro Turner Work Phone: [facility] 08-02-2020 influenza, injectabl e, quadrivalent, preservative free; Translations: [Fluarix PF Quadrivalent ] DR JOCELYNE PHELPS MD [facility] 09-03-2019 influenza, injectabl e, quadrivalent, preservative free; Translations: [Fluarix PF Quadrivalent ] DR JOCELYNE PHELPS MD [facility] 06-23-2013 pneumococcal polysaccharide vaccine, [address] Pietro Turner Work Phone: [facility] Payers Date Payer Category Payer Unknown [id number] 2024 Unknown [id number] 2024 Unknown [id number] 2024 Self-pay [id number] 2024 Private Health Insurance [facility] [place] [id number] 2021 Medicare [id number] Medicare [id number] Unknown [facility] [id number] Unknown [id number] 2.16.8 40.1.136976.3.579.2.462 Unknown [id number] 2.16.8 40.1.504676.3.579.2.462 Unknown [id number] 2.16.8 40.1.342215.3.579.2.462 Unknown [id number] 2.16.8 40.1.321778.3.579.2.462 Unknown [id number] 2.16.8 40.1.006335.3.579.2.462 Unknown [id number] 2.16.8 40.1.966806.3.579.2.462 Unknown [id number] 2.16.8 40.1.152951.3.579.2.462 Unknown [id number] 2.16.8 40.1.348893.3.579.2.462 Unknown [id number] 2.16.8 40.1.823617.3.579.2.462 Unknown [id number] 2.16.8 40.1.849739.3.579.2.462 Unknown [id number] 2.16.8 40.1.727702.3.579.2.462 Unknown [id number] 2.16.8 40.1.895643.3.579.2.462 Unknown [id number] 2.16.8 40.1.819359.3.579.2.462 Unknown [id number] 2.16.8 40.1.250551.3.579.2.462 Unknown [id number] 2.16.8 40.1.766658.3.579.2.462 Unknown [id number] 2.16.8 40.1.529145.3.579.2.462 Unknown [id number] 2.16.8 40.1.365968.3.579.2.462 Unknown [id number] 2.16.8 40.1.645614.3.579.2.462 Unknown [id number] 2.16.8 40.1.274795.3.579.2.462 Unknown [id number] 2.16.8 40.1.537016.3.579.2.462 Unknown [id number] 2.16.8 40.1.773805.3.579.2.462 Unknown [id number] 2.16.8 40.1.485592.3.579.2.462 Unknown [id number] 2.16.8 40.1.348502.3.579.2.462 Unknown [id number] 2.16.8 40.1.972906.3.579.2.462 Unknown [id number] 2.16.8 40.1.212844.3.579.2.462 Unknown [id number] 2.16.8 40.1.422240.3.579.2.462 Unknown [id number] 2.16.8 40.1.229757.3.579.2.462 Unknown [id number] 2.16.8 40.1.182776.3.579.2.462 Unknown [id number] 2.16.8 40.1.315461.3.579.2.462 Unknown [id number] 2.16.8 40.1.009117.3.579.2.462 Unknown [id number] 2.16.8 40.1.472557.3.579.2.462 Social History Date Type Detail Facility Start: 12-24-2019 Never smoked t sariah (finding) [facility] Comment on above: no smoke exposure Start: 1960 Sex Assigned At Male [facility] Start: 02-16-2022 End: 02-19-2024 Tobacco smoking status NHIS Unknown if ever smoked [facility] Start: 11-19-2020 None [facility] Start: 09-14-2020 Alone [facility] Start: 12-08-2020 Cigarettes [facility] Start: 12-04-2024 End: 04-27-2025 Tobacco smoking status NHIS Ex-smoker (finding) [facility] Start: 02-05-2025 End: 02-12-2025 Sex Male (finding) [facility] Sex [facility] Medical Equipment Procedure Code Equipment Code Equipment Original Text Equipment Identifier Dates Total cholecystectomy with exploration of common bile duct ()[id number] [facility] Start: 06-03-2024 Needle (Disp) 18 G (Bd Regular Bevel [place]) 18 gauge x 1 needle Start: 05-22-2022 Syringe With Needle, Safety (Monoject Safety Syringes) 3 mL 23 gauge x 1 syringe Start: 05-22-2022 Needle (Disp) 18 G (Bd Regular Bevel [place]) 18 gauge x 1 needle Start: 05-22-2022 End: 05-22-2022 Syringe With Needle, Safety (Monoject Safety Syringes) 3 mL 23 gauge x 1 syringe Start: 05-22-2022 End: 05-22-2022 Needle (Disp) 18 G (Bd Regular Bevel [place]) 18 gauge x 1 needle Start: 05-22-2022 Syringe With Needle, Safety (Monoject Safety Syringes) 3 mL 23 gauge x 1 syringe Start: 05-22-2022 Needle (Disp) 18 G (Bd Regular Bevel [place]) 18 gauge x 1 needle Start: 05-22-2022 End: 05-22-2022 Syringe With Needle, Safety (Monoject Safety Syringes) 3 mL 23 gauge x 1 syringe Start: 05-22-2022 End: 05-22-2022 Needle (Disp) 18 G (Bd Regular Bevel [place]) 18 gauge x 1 needle Start: 05-22-2022 Syringe With Needle, Safety (Monoject Safety Syringes) 3 mL 23 gauge x 1 syringe Start: 05-22-2022 Needle (Disp) 18 G (Bd Regular Bevel [place]) 18 gauge x 1 needle Start: 05-22-2022 End: 05-22-2022 Syringe With Needle, Safety (Monoject Safety Syringes) 3 mL 23 gauge x 1 syringe Start: 05-22-2022 End: 05-22-2022 Needle (Disp) 18 G (Bd Regular Bevel [place]) 18 gauge x 1 needle Start: 05-22-2022 Syringe With Needle, Safety (Monoject Safety Syringes) 3 mL 23 gauge x 1 syringe Start: 05-22-2022 Needle (Disp) 18 G (Bd Regular Bevel [place]) 18 gauge x 1 needle Start: 05-22-2022 End: 05-22-2022 Syringe With Needle, Safety (Monoject Safety Syringes) 3 mL 23 gauge x 1 syringe Start: 05-22-2022 End: 05-22-2022 Needle (Disp) 18 G (Bd Regular Bevel [place]) 18 gauge x 1 needle Start: 05-22-2022 Syringe With Needle, Safety (Monoject Safety Syringes) 3 mL 23 gauge x 1 syringe Start: 01-31-2023 Needle (Disp) 18 G (Bd Regular Bevel [place]) 18 gauge x 1 needle Start: 05-22-2022 End: 05-22-2022 Syringe With Needle, Safety (Monoject Safety Syringes) 3 mL 23 gauge x 1 syringe Start: 05-22-2022 End: 05-22-2022 Syringe With Needle, Safety (Monoject Safety Syringes) 3 mL 23 gauge x 1 syringe Start: 05-22-2022 End: 01-31-2023 Needle (Disp) 18 G (Bd Regular Bevel [place]) 18 gauge x 1 needle Start: 05-22-2022 Syringe With Needle, Safety (Monoject Safety Syringes) 3 mL 23 gauge x 1 syringe Start: 01-31-2023 Needle (Disp) 18 G (Bd Regular Bevel [place]) 18 gauge x 1 needle Start: 05-22-2022 End: 05-22-2022 Syringe With Needle, Safety (Monoject Safety Syringes) 3 mL 23 gauge x 1 syringe Start: 05-22-2022 End: 05-22-2022 Syringe With Needle, Safety (Monoject Safety Syringes) 3 mL 23 gauge x 1 syringe Start: 05-22-2022 End: 01-31-2023 Needle (Disp) 18 G (Bd Regular Bevel [place]) 18 gauge x 1 needle Start: 05-22-2022 Syringe With Needle, Safety (Monoject Safety Syringes) 3 mL 23 gauge x 1 syringe Start: 01-31-2023 Needle (Disp) 18 G (Bd Regular Bevel [place]) 18 gauge x 1 needle Start: 05-22-2022 End: 05-22-2022 Syringe With Needle, Safety (Monoject Safety Syringes) 3 mL 23 gauge x 1 syringe Start: 05-22-2022 End: 05-22-2022 Syringe With Needle, Safety (Monoject Safety Syringes) 3 mL 23 gauge x 1 syringe Start: 05-22-2022 End: 01-31-2023 Needle (Disp) 18 G (Bd Regular Bevel [place]) 18 gauge x 1 needle Start: 05-22-2022 Syringe With Needle, Safety (Monoject Safety Syringes) 3 mL 23 gauge x 1 syringe Start: 01-31-2023 Needle (Disp) 18 G (Bd Regular Bevel [place]) 18 gauge x 1 needle Start: 05-22-2022 End: 05-22-2022 Syringe With Needle, Safety (Monoject Safety Syringes) 3 mL 23 gauge x 1 syringe Start: 05-22-2022 End: 05-22-2022 Syringe With Needle, Safety (Monoject Safety Syringes) 3 mL 23 gauge x 1 syringe Start: 05-22-2022 End: 01-31-2023 Needle (Disp) 18 G (Bd Regular Bevel [place]) 18 gauge x 1 needle Start: 05-22-2022 Syringe With Needle, Safety (Monoject Safety Syringes) 3 mL 23 gauge x 1 syringe Start: 01-31-2023 Needle (Disp) 18 G (Bd Regular Bevel [place]) 18 gauge x 1 needle Start: 05-22-2022 End: 05-22-2022 Syringe With Needle, Safety (Monoject Safety Syringes) 3 mL 23 gauge x 1 syringe Start: 05-22-2022 End: 05-22-2022 Syringe With Needle, Safety (Monoject Safety Syringes) 3 mL 23 gauge x 1 syringe Start: 05-22-2022 End: 01-31-2023 Needle (Disp) 18 G (Bd Regular Bevel [place]) 18 gauge x 1 needle Start: 05-22-2022 Syringe With Needle, Safety (Monoject Safety Syringes) 3 mL 23 gauge x 1 syringe Start: 01-28-2024 Needle (Disp) 18 G (Bd Regular Bevel [place]) 18 gauge x 1 needle Start: 05-22-2022 End: 05-22-2022 Syringe With Needle, Safety (Monoject Safety Syringes) 3 mL 23 gauge x 1 syringe Start: 05-22-2022 End: 05-22-2022 Syringe With Needle, Safety (Monoject Safety Syringes) 3 mL 23 gauge x 1 syringe Start: 05-22-2022 End: 01-31-2023 Syringe With Needle, Safety (Monoject Safety Syringes) 3 mL 23 gauge x 1 syringe Start: 01-31-2023 End: 01-28-2024 Needle (Disp) 18 G (Bd Regular Bevel [place]) 18 gauge x 1 needle Start: 05-22-2022 Syringe With Needle, Safety 3 mL 25 gauge x 1 syringe Start: 05-13-2024 Needle (Disp) 18 G (Bd Regular Bevel [place]) 18 gauge x 1 needle Start: 05-22-2022 End: 05-22-2022 Syringe With Needle, Safety (Monoject Safety Syringes) 3 mL 23 gauge x 1 syringe Start: 05-22-2022 End: 05-22-2022 Syringe With Needle, Safety (Monoject Safety Syringes) 3 mL 23 gauge x 1 syringe Start: 05-22-2022 End: 01-31-2023 Syringe With Needle, Safety (Monoject Safety Syringes) 3 mL 23 gauge x 1 syringe Start: 01-31-2023 End: 01-28-2024 Syringe With Needle, Safety (Monoject Safety Syringes) 3 mL 23 gauge x 1 syringe Start: 01-28-2024 End: 05-13-2024 Needle (Disp) 18 G (Bd Regular Bevel [place]) 18 gauge x 1 needle Start: 05-22-2022 Syringe With Needle, Safety 3 mL 25 gauge x 1 syringe Start: 05-13-2024 Needle (Disp) 18 G (Bd Regular Bevel [place]) 18 gauge x 1 needle Start: 05-22-2022 End: 05-22-2022 Syringe With Needle, Safety (Monoject Safety Syringes) 3 mL 23 gauge x 1 syringe Start: 05-22-2022 End: 05-22-2022 Syringe With Needle, Safety (Monoject Safety Syringes) 3 mL 23 gauge x 1 syringe Start: 05-22-2022 End: 01-31-2023 Syringe With Needle, Safety (Monoject Safety Syringes) 3 mL 23 gauge x 1 syringe Start: 01-31-2023 End: 01-28-2024 Syringe With Needle, Safety (Monoject Safety Syringes) 3 mL 23 gauge x 1 syringe Start: 01-28-2024 End: 05-13-2024 Needle (Disp) 18 G (Bd Regular Bevel [place]) 18 gauge x 1 needle Start: 05-22-2022 Syringe With Needle, Safety 3 mL 25 gauge x 1 syringe Start: 05-13-2024 Needle (Disp) 18 G (Bd Regular Bevel [place]) 18 gauge x 1 needle Start: 05-22-2022 End: 05-22-2022 Syringe With Needle, Safety (Monoject Safety Syringes) 3 mL 23 gauge x 1 syringe Start: 05-22-2022 End: 05-22-2022 Syringe With Needle, Safety (Monoject Safety Syringes) 3 mL 23 gauge x 1 syringe Start: 05-22-2022 End: 01-31-2023 Syringe With Needle, Safety (Monoject Safety Syringes) 3 mL 23 gauge x 1 syringe Start: 01-31-2023 End: 01-28-2024 Syringe With Needle, Safety (Monoject Safety Syringes) 3 mL 23 gauge x 1 syringe Start: 01-28-2024 End: 05-13-2024 Needle (Disp) 18 G (Bd Regular Bevel [place]) 18 gauge x 1 needle Start: 05-22-2022 Syringe With Needle, Safety 3 mL 25 gauge x 1 syringe Start: 05-13-2024 Needle (Disp) 18 G (Bd Regular Bevel [place]) 18 gauge x 1 needle Start: 05-22-2022 End: 05-22-2022 Syringe With Needle, Safety (Monoject Safety Syringes) 3 mL 23 gauge x 1 syringe Start: 05-22-2022 End: 05-22-2022 Syringe With Needle, Safety (Monoject Safety Syringes) 3 mL 23 gauge x 1 syringe Start: 05-22-2022 End: 01-31-2023 Syringe With Needle, Safety (Monoject Safety Syringes) 3 mL 23 gauge x 1 syringe Start: 01-31-2023 End: 01-28-2024 Syringe With Needle, Safety (Monoject Safety Syringes) 3 mL 23 gauge x 1 syringe Start: 01-28-2024 End: 05-13-2024 Needle (Disp) 18 G (Bd Regular Bevel [place]) 18 gauge x 1 needle Start: 05-22-2022 Syringe With Needle, Safety 3 mL 25 gauge x 1 syringe Start: 05-13-2024 Needle (Disp) 18 G (Bd Regular Bevel [place]) 18 gauge x 1 needle Start: 05-22-2022 End: 05-22-2022 Syringe With Needle, Safety (Monoject Safety Syringes) 3 mL 23 gauge x 1 syringe Start: 05-22-2022 End: 05-22-2022 Syringe With Needle, Safety (Monoject Safety Syringes) 3 mL 23 gauge x 1 syringe Start: 05-22-2022 End: 01-31-2023 Syringe With Needle, Safety (Monoject Safety Syringes) 3 mL 23 gauge x 1 syringe Start: 01-31-2023 End: 01-28-2024 Syringe With Needle, Safety (Monoject Safety Syringes) 3 mL 23 gauge x 1 syringe Start: 01-28-2024 End: 05-13-2024 Needle (Disp) 18 G (Bd Regular Bevel [place]) 18 gauge x 1 needle Start: 05-22-2022 Syringe With Needle, Safety 3 mL 25 gauge x 1 syringe Start: 05-13-2024 Needle (Disp) 18 G (Bd Regular Bevel [place]) 18 gauge x 1 needle Start: 05-22-2022 End: 05-22-2022 Syringe With Needle, Safety (Monoject Safety Syringes) 3 mL 23 gauge x 1 syringe Start: 05-22-2022 End: 05-22-2022 Syringe With Needle, Safety (Monoject Safety Syringes) 3 mL 23 gauge x 1 syringe Start: 05-22-2022 End: 01-31-2023 Syringe With Needle, Safety (Monoject Safety Syringes) 3 mL 23 gauge x 1 syringe Start: 01-31-2023 End: 01-28-2024 Syringe With Needle, Safety (Monoject Safety Syringes) 3 mL 23 gauge x 1 syringe Start: 01-28-2024 End: 05-13-2024 Needle (Disp) 18 G (Bd Regular Bevel [place]) 18 gauge x 1 needle Start: 05-22-2022 Syringe With Needle, Safety 3 mL 25 gauge x 1 syringe Start: 05-13-2024 Needle (Disp) 18 G (Bd Regular Bevel [place]) 18 gauge x 1 needle Start: 05-22-2022 End: 05-22-2022 Syringe With Needle, Safety (Monoject Safety Syringes) 3 mL 23 gauge x 1 syringe Start: 05-22-2022 End: 05-22-2022 Syringe With Needle, Safety (Monoject Safety Syringes) 3 mL 23 gauge x 1 syringe Start: 05-22-2022 End: 01-31-2023 Syringe With Needle, Safety (Monoject Safety Syringes) 3 mL 23 gauge x 1 syringe Start: 01-31-2023 End: 01-28-2024 Syringe With Needle, Safety (Monoject Safety Syringes) 3 mL 23 gauge x 1 syringe Start: 01-28-2024 End: 05-13-2024 Needle (Disp) 18 G (Bd Regular Bevel [place]) 18 gauge x 1 needle Start: 05-22-2022 Syringe With Needle, Safety 3 mL 25 gauge x 1 syringe Start: 05-13-2024 Needle (Disp) 18 G (Bd Regular Bevel [place]) 18 gauge x 1 needle Start: 05-22-2022 End: 05-22-2022 Syringe With Needle, Safety (Monoject Safety Syringes) 3 mL 23 gauge x 1 syringe Start: 05-22-2022 End: 05-22-2022 Syringe With Needle, Safety (Monoject Safety Syringes) 3 mL 23 gauge x 1 syringe Start: 05-22-2022 End: 01-31-2023 Syringe With Needle, Safety (Monoject Safety Syringes) 3 mL 23 gauge x 1 syringe Start: 01-31-2023 End: 01-28-2024 Syringe With Needle, Safety (Monoject Safety Syringes) 3 mL 23 gauge x 1 syringe Start: 01-28-2024 End: 05-13-2024 Goals Date Patient Goal Desired Activity /State Mental Status Date Assessment Result Facility 11-14-2024 Cognitive function Voice/Name [facility] Work Phone: 11-07-2024 Cognitive function Voice/Name;Touch/Urielki benito [facility] Work Phone: 02-19-2024 Cognitive function Voice/Name [facility] Work Phone: Clinical Notes 07-26-2020 to 08-10-2025 Note Date & Type Note Facility 08-10-2025 Progress note Note Date/Time August 10, 2025 2:09pm [facility] [address] [place] [address] OFFICE VISIT Date of Service: 08/10/25 MR#: [id number] Acct: [id number] Name: ALIX LEE Rep #: [id number] : 1960 Provider: MICHELLE Dickey Age/Sex: 65/M Location: [facility] Status: Signed HPI HPI History of Present Illness Details: This is a pleasant 65-year-old man who presents to the office today for a cardiovascular followup visit. He had presented in June 2020 with chest discomfort and radiation to his face. He was admitted for non-ST elevation myocardial infarction, underwent a cardiac catheterization which demonstrated single-vessel disease to the proximal left anterior descending artery. He did undergo angioplasty and stenting of this vessel with a 3.5 x 28 mm Synergy stent. He did fairly well after that and underwent a stress test in August 2020 where he exercised to a moderate metabolic workload of 6.4 metabolic equivalents with hypertensive response to exercise. He continued on the currentmedication. At that time he was noted to be on Brilinta which subsequently caused dyspnea and this was discontinued and he was switched to Effient. He didwell in the interim and underwent a stress test in December 2020 which demonstratedno evidence of ischemia. ProBNP also performed at that time was noted to be normal. His echocardiogram had demonstrated preserved ejection fraction of 55 to 60%. His most recent cardiac catheterization from October of 2021 demonstrated previously placed stent in the left anterior descending artery is noted to be patent, and there is moderate disease noted in the right coronary artery and the circumflex artery but no high-grade stenosis noted. He underwentfurther evaluation with a polysomnogram that was positive for mild obstructive sleep apnea. He does state that treatment of such has improved his energy level. He has a history of hypertension, hyperlipidemia, obesity, and diabetes mellitus. He acknowledges recent episode of chest pain after eating a large meal. Patientcalled the squad and had an EKG done. He did not present to the emergency department for further evaluation. Patient states that such pain is thought to be due to indigestion/eating associated with his GLP-1 medication. He denies palpitation or bilateral lower extremity edema. He acknowledges shortness breath with activity. He denies shortness of breath at rest, cough, orthopnea, or PND. He denies lightheadedness, dizziness, near-syncope, syncope. He deniesfatigue. 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 Is patient in pain?: No Allergies Penicillins (PCN) Allergy (Verified 08/10/25 13:38) Other Nykrfrx-FWS-TpI Reductase Inhibitor Adverse Reaction (Intermediate, Verified 08/10/25 13:38) myalgias lisinopril Adverse Reaction (Verified 08/10/25 13:38) cough spironolactone Adverse Reaction (Verified 08/10/25 13:38) elevated blood sugar Medications ?Medication ?Instructions ?Recorded ?Confirmed ?Type needle (disp) 18 G 18 gauge x 1 #100 ea 05/22/22/ Rx (BD Regular Bevel [place]) flash glucose scanning reader #1 ea 02/05/24 07/28/25 Rx (FreeStyle Jean 2 [place]) cholecalciferol (vitamin D3) 125 5,000 unit PO DAILY 0 05/05/24 08/10/25 History mcg (5,000 unit) tablet (Vitamin D3) ferrous sulfate 325 mg (65 mg 325 mg PO DAILY 05/05/24 08/10/25 History iron) tablet (FeroSul) trifluoperazine 2 mg tablet 2 mg PO 0300 For nervous t ics. 05/05/24 08/10/25 History syringe with needle, safety 3 mL #50 ea 05/13/2407/28 Rx 25 gauge x 1 aspirin 81 mg tablet,delayed 81 mg PO 1400 05/23/24 History release magnesium glycinate 100 mg (as 100 mg PO QHS 09/05/24 08/10/25 History glycinate) tablet (Mag Glycinate) melatonin 10 mg capsule 10 mg PO QHS PRN sleep 09/0508/10/25 History carvedilol 25 mg tablet 25 mg PO BID #180 tabs 10/2308/10/25 Rx omeprazole 20 mg capsule,delayed 20 mg PO BID #180 cap s 11/13/24 08/10/25 Rx release multivitamin 1 tab PO QDAY 01/01/2508/10 History amlodipine 5 mg tablet 5 mg PO DAILY #90 TABLETS 08/10/25 Rx flash glucose sensor (FreeStyle #1 ea 03/13/2507/28/ 5 Rx Jean 2 Sensor kit) isosorbide mononitrate 60 mg 60 mg PO BID #180 tabs 08/10/25 Rx tablet,extended release 24 hr nitroglycerin 0.4 mg sublingual 0.4 mg sublingual Q5-1 5M PRN chest 03/13/25 08/10/25 Rx tablet (Nitrostat) pain #25 tabs evolocumab 140 mg/mL subcutaneous 140 mg subcut Q2W #6 mL 07/28/25 08/10/25 Rx pen injector (Repatha SureClick) testosterone cypionate 200 mg/mL 150 mg (0.75 mL) IM Q 2W #5 mL 08/03/25 08/10/25 Rx intramuscular oil semaglutide 1 mg/dose (4 mg/3 mL) 1 mg (0.75 mL) subcu t QWEEK #3 mL 08/07/25 08/10/25 Rx subcutaneous pen injector Ejection fraction %: 55 Have you fallen in the past year?: No Nurse's Note: refused ekg today [facility] Medical History (Updated 07/28/25 @ 11:[address] Pietro Turner MD) Persistent dry cough Discomfort of right hip Concern about urinary tract disease without diagnosis UTI (urinary tract infection) Acute bronchitis Erectile dysfunction Alcohol use Bruising High cholesterol Gastric reflux History of Holter monitoring History of echocardiogram Nausea & vomiting Colon cancer screening Wears hearing aid Wears glasses Schizophrenia Anxiety Diabetes Low iron Fatty liver Restless legs Back pain Tic disorder History of diverticulitis Former smoker History of stress test Cardiology follow-up encounter Hypertension Cholelithiasis History of sarcoidosis Depression Pancreatitis 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 History of non-ST elevation myocardial infarction (NSTEMI) (07/26/20) Essential hypertension Type 2 diabetes mellitus Nausea Fatigue Urinary hesitancy Liver disease Hypoglycemia Hyperlipemia Gout GERD (gastroesophageal reflux disease) Anxiety and depression Bone fracture Anemia History of alcohol abuse Schizoaffective disorder Surgical History History of cardiac catheterization History of cholecystectomy Hx of colonoscopy History of left heart catheterization (11/02/21) History of coronary artery stent placement (07/26/20) History of cataract surgery History of placement of ear tubes History of tonsillectomy History of amputation of finger Family History Other CVA (cerebral vascular accident) Cancer Depression with anxiety Diabetes FH: mental illness Hyperlipemia Hypertension Osteoporosis Social History Smoking Status: Former smoker quit date: 10/29/05 Tobacco: How many years used: 15 alcohol intake: former year quit: 2014 substance use type: does not use caffeine: Yes Type: carbonated beverages and coffee what type of physical activity do you participate in: walking ROS Const Const: Negative for fatigue, weakness, headache(s) or frequent falls Eyes Eyes: Negative for blurry vision ENT ENT: Negative for headache(s), dizziness or Nosebleed/epistaxis Cardio Chest Pain: Yes (sunday nite after eating large meal, patient is on ozempic, called squad ) Palpitations: No Edema: None Muscle aches with walking: None Resp Respiratory: Positive for SOB with activity; Negative for SOB at rest or SOB orthopnea\SOB lying down GI GI: Negative nausea, vomiting, heartburn, bright, red blood in stools or black,tarry stools : Negative for hematuria Musc Musc: Negative for muscle aches/ myalgia Skin Skin: Negative non-healing lesions or rash Neuro Neuro: Negative for dizziness, lightheadedness, near syncope, syncope, frequent falls, headache(s), weakness or blurry vision Endo Endo: Negative for fatigue Allergy Allergy/Immunology: Negative for rash Cardiology Exam Const Appearance: cooperative, healthy appearing, comfortable and no acute distress Nutritional Appearance: well nourished and obese Orientation: alert, awake and oriented x3 Head Head: normal to inspection Ears: hearing grossly normal bilaterally Nose: external nose normal Face and Sinus: face symmetric Mouth: moist mucous membranes Eyes General: appearance normal, both eyes and all related structures Eyelids: eyelids normal EOM: EOM intact bilaterally Neck Neck: normal visual inspection and no JVD Carotids: normal carotid upstroke Chest Chest inspection: normal inspection of the chest, symmetric chest movement and normal respiratory effort; Negative cough Auscultation: Bilateral: Clear to Auscultation Cardio Rate: regular rate Rhythm: regular rhythm Heart sounds: S1 normal and S2 normal; Negative rub, gallop or murmur GI GI: normal to inspection and obese Neuro General: patient alert, patient awake, patient oriented x3 and CN's II-XI intactbilaterally Skin Skin: no rashes or lesions noted Extremities Pulses: Normal: Right Posterior Tibial Pulse, Left Posterior Tibial Pulse, RightRadial Pulse and Left Radial Pulse Lower Extremity Edema: None: Bilateral Psych Psychological: normal affect Supplemental Info Supplemental Information Echocardiogram 10/27/24 Interpretation Summary Normal LV size. Mild concentric left ventricular hypertrophy. Left ventricular systolic function is normal. The left ventricular ejection fraction is 55 %. Echocardiogram 12/29/2020 ([facility]) Summary 1. Left ventricle: The cavity size is normal. Wall thickness is normal. Systolic function is normal. The estimated ejection fraction is 55 to 60%. Wall motion is normal; there are no regional wall motion abnormalities. Unable to assess diastolic function. 2. Ventricular septum: There is no evidence of a ventricular septal defect. 3. Mitral valve: The annulus is moderately calcified. There is mild regurgitation. 4. Left atrium: The atrium is moderately dilated. 5. Right ventricle: The RV systolic pressure by Doppler is 45 mmHg. 6. Right atrium: The estimated right atrial pressure is 8 mmHg Stress Test from 04/29/2024: Conclusion: Normal exercise myocardial perfusion stress test at a moderate workload Preserved ejection fraction. Hypertensive response to exercise Cardiac Catheterization 11/02/2021: CONCLUSIONS Previously placed stent in the left anterior descending artery is noted to be patent.? There is moderate disease noted in the right coronary artery and the circumflex artery but no high-grade stenosis noted.? Preserved ejection fraction. RECOMMENDATIONS Medical therapy CORONARY ANGIOGRAPHY DOMINANCE:? Co- Dominant LEFT HEART ASSESSMENT Left Ventricular Ejection Fraction: by LV Gram 60 % Normal LV wall motion Normal Left Ventricular systolic function LEFT MAIN: Angiographically normal LEFT ANTERIOR DESCENDING ARTERY: PROX LAD: Previously placed stent is patent MID LAD: No significant disease noted DISTAL LAD: Mild luminal irregularities CIRCUMFLEX ARTERY: Moderate luminal irregularities up to 50% RAMUS: No significant disease noted RIGHT CORONARY ARTERY: No significant disease noted RT PDA: Proximal - Moderate luminal irregularities up to 50% 14 Day Event Monitor 09/11/24 Summary Baseline sample showed Sinus Rhythm w/ 1st Degree AV Block with a heart rate of 77.2 bpm. There were 0 critical, 0 serious, and 1 stable event that occurred. Labs: HDL Cholesterol, (40-) 43 mg/dL Cholesterol, (<=200) 78 mg/dL Triglycerides, (-199) 346 mg/dL H Diagnostics: Electrocardiogram Echocardiogram Stress Test Stress Test Nuclear Medicine Cardiac Catheterization Chest X-Ray Abdomen Ultrasound Abdomen/Pelvis CT Pulmonary: Pulmonary Function Test Past Visits: Cardiology Visit Today Assessment and Plan Assessment and Plan (1) Chest pain: Status: Acute Plan: He has been able to walk 2.5 in the lambert without symptoms since his recent chest pain episode. He declines ECG today. It is encouraging he is active without symptoms. We will continue to monitor. (2) History of coronary artery stent placement: Status: Acute Comment: [id number]-[id number] LAD w/ 3.5 x 28 mm Synergy Stent 07/26/2020 Plan: This appears stable. We will continue to monitor and not make any medication regimen changes. We will continue to promote risk factor and lifestyle modification. (3) Essential hypertension: Status: Acute Plan: This is elevated today. We discussed medication adjustment to assist. He declines and wishes to focus on lifestyle modification and weight loss. We will follow and adjust medications as able. (4) Hyperlipemia: Status: Chronic Qualifiers: Hyperlipidemia type: mixed hyperlipidemia Qualified Code(s): E78.2 - Mixed hyperlipidemia Plan: Lipid panel from 06/15/2025 showed Total Cholesterol: 78, HDL: 43, LDL: -34, andTriglycerides: 346. He will continue current medication along with lifestyle changes. (5) Type 2 diabetes mellitus: Status: Chronic Plan: The importance of diabetes control was reviewed with him in respect to cardiovascular health. He is currently on metformin and Ozempic. Hemoglobin A1c on 06/15/2025 was noted be 5.9%. Orders: Orders 12 Lead EKG performed by [facility] Today R07.9 - Chest pain, unspecified Medications: Discontinued metformin ER Discontinued Reason: Pt no longer taking 1,000 mg (2 x 500 mg) PO BID 360 tabs 3RF Plan Details Additional Comments: Thank you for allowing us to participate in the patients plan of care, if you have any questions please do not hesitate to call. Plan was reviewed with patient/family member along with red flag symptoms. Understanding was acknowledged. Questions were answered to apparent satisfaction. This note was generated using a voice recognition system and there may be incorrect words, spelling or punctuation that were not noted when reviewing the office note prior to saving. Portions of this documentation were copied and pasted from previous office visitnotes to provide a cohesive continuity of the history. The note has been reviewed, edited, and updated, as necessary. 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) Coding Level of Care Code Off vis,est,level 4 Diagnoses Chest pain R07.9 History of coronary artery stent placement Z95.5 Essential hypertension I10 Mixed hyperlipidemia E78.2 Hyperlipidemia type: mixed hyperlipidemia Type 2 diabetes mellitus E11.9 Coding Level of Care Code Off vis,est,level 4 Diagnoses Chest pain R07.9 History of coronary artery stent placement Z95.5 Essential hypertension I10 Mixed hyperlipidemia E78.2 Hyperlipidemia type: mixed hyperlipidemia Type 2 diabetes mellitus E11.9 Clinical Quality Measures Falls Risk Screening/Assistive Devices Have you fallen in the past year?: No Cardiac Ejection fraction %: 55 08/10/25 1414 <Electronically signed by Jocelyne MARTINEZ> Date _ Jocelyne KAYEC Cosigner Signature: Date (if applicable) CC: Dr. Pietro Turner MD ~ [facility] [employer] Work Phone: 1(134) 702-470909-30-2025 Progress note Author Pietro Turner [facility] Note Date/Time July 28, 2025 11:00am [facility] [address] [facility] [place] [address] OFFICE VISIT Date of Service: 07/28/25 MR#: [id number] Acct: [id number] Name: ALIX LEE Rep #: [id number] : 1960 Provider: Dr. Carmen Turner MD Age/Sex: 65/M Location: [facility] Status: Signed Intake Vital Signs 06/17/25 15:11 07/28/25 10:34 Height 6 ft 1 in 6 ft 1 in Weight: 266 lb 8 oz 260 lb BMI 35.2 34.2 BP 153/79 H 173/90 H Blood Pressure Location Lt brachial Lt brachial Position Sitting Sitting Respiration 16 Pulse 98 86 Pulse Source Monitor Monitor Temp 98.6 F 98.4 F Temp Source Temporal Temporal Pulse Oximetry (%) 95 97 Oxygen Delivery Method room air room air Intake Visit Reasons: Persistent Cough 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 Accompanied by: Self Is patient in pain?: No Allergies Penicillins (PCN) Allergy (Verified 07/28/25 10:37) Other Eiyhuka-NQM-ZoF Reductase Inhibitor Adverse Reaction (Intermediate, Verified 07/28/25 10:37) myalgias lisinopril Adverse Reaction (Verified 07/28/25 10:37) cough spironolactone Adverse Reaction (Verified 07/28/25 10:37) elevated blood sugar Medications ?Medication ?Instructions ?Recorded ?Confirmed ?Type needle (disp) 18 G 18 gauge x 1 #100 ea 05/22/2207/01 Rx (BD Regular Bevel [place]) flash glucose scanning reader #1 ea 02/05/24 07/28/25 Rx (FreeStyle Jean 2 [place]) cholecalciferol (vitamin D3) 125 5,000 unit PO DAILY 0 05/05/24 07/28/25 History mcg (5,000 unit) tablet (Vitamin D3) ferrous sulfate 325 mg (65 mg 325 mg PO DAILY 05/05/24 07/28/25 History iron) tablet (FeroSul) trifluoperazine 2 mg tablet 2 mg PO 0300 For nervous t ics. 05/05/24 07/28/25 History syringe with needle, safety 3 mL #50 ea 05/13/2407/28 Rx 25 gauge x 1 aspirin 81 mg tablet,delayed 81 mg PO 1400 05/23/24 History release magnesium glycinate 100 mg (as 100 mg PO QHS 09/05/24 07/28/25 History glycinate) tablet (Mag Glycinate) melatonin 10 mg capsule 10 mg PO QHS PRN sleep 09/0507/28/25 History carvedilol 25 mg tablet 25 mg PO BID #180 tabs 10/2307/28/25 Rx metformin 500 mg tablet,extended 1,000 mg (2 x 500 mg) PO BID #360 11/13/24 07/28/25 Rx release 24 hr tabs omeprazole 20 mg capsule,delayed 20 mg PO BID #180 cap s 11/13/24 07/28/25 Rx release duloxetine 60 mg capsule,delayed 60 mg PO QDAY 5 07/28/25 History release multivitamin 1 tab PO QDAY 01/01/2507/28 History amlodipine 5 mg tablet 5 mg PO DAILY #90 TABLETS 07/28/25 Rx flash glucose sensor (FreeStyle #1 ea 03/13/25 5 Rx Jean 2 Sensor kit) isosorbide mononitrate 60 mg 60 mg PO BID #180 tabs 07/28/25 Rx tablet,extended release 24 hr nitroglycerin 0.4 mg sublingual 0.4 mg sublingual Q5-1 5M PRN chest 03/13/25 07/28/25 Rx tablet (Nitrostat) pain #25 tabs semaglutide 2 mg/dose (8 mg/3 mL) 2 mg (0.75 mL) subcu t QWEEK #3 mL 06/10/25 07/28/25 Rx subcutaneous pen injector testosterone cypionate 200 mg/mL 150 mg (0.75 mL) IM Q 2W #5 mL 07/01/25 07/28/25 Rx intramuscular oil mirtazapine 7.5 mg tablet 7.5 mg PO QHS 07/28/2507/28 History venlafaxine 37.5 mg 37.5 mg PO QDAY 07/28/25 History capsule,extended release 24 hr PFSH Medical History (Updated 07/28/25 @ 11:[address] Pietro Turner MD) Persistent dry cough Discomfort of right hip Concern about urinary tract disease without diagnosis UTI (urinary tract infection) Acute bronchitis Erectile dysfunction Alcohol use Bruising High cholesterol Gastric reflux History of Holter monitoring History of echocardiogram Nausea & vomiting Colon cancer screening Wears hearing aid Wears glasses Schizophrenia Anxiety Diabetes Low iron Fatty liver Restless legs Back pain Tic disorder History of diverticulitis Former smoker History of stress test Cardiology follow-up encounter Hypertension Cholelithiasis History of sarcoidosis Depression Pancreatitis 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 History of non-ST elevation myocardial infarction (NSTEMI) (07/26/20) Essential hypertension Type 2 diabetes mellitus Nausea Fatigue Urinary hesitancy Liver disease Hypoglycemia Hyperlipemia Gout GERD (gastroesophageal reflux disease) Anxiety and depression Bone fracture Anemia History of alcohol abuse Schizoaffective disorder Surgical History History of cardiac catheterization History of cholecystectomy Hx of colonoscopy History of left heart catheterization (11/02/21) History of coronary artery stent placement (07/26/20) History of cataract surgery History of placement of ear tubes History of tonsillectomy History of amputation of finger Family History Other CVA (cerebral vascular accident) Cancer Depression with anxiety Diabetes FH: mental illness Hyperlipemia Hypertension Osteoporosis Social History Smoking Status: Former smoker quit date: 10/29/05 Tobacco: How many years used: 15 alcohol intake: former year quit: 2014 substance use type: does not use caffeine: Yes Type: carbonated beverages and coffee what type of physical activity do you participate in: walking HPI HPI Details: ALIX LEE, is a 65 M who presents to the office today for an acute care follow-up visit. Dry cough. Started about 3 weeks ago he feels. Did not startwith a respiratory infection, sputum production, fever, chills, sore throat etc. He describes this as somewhat of a dry feeling in the back of the throat, prompting cough. He states somewhat if he concentrates he can control it to some degree. Not necessarily worse at night and coughing is not keeping him up. He is not overtly short of breath. No chest pain, chest tightness is noted. He is on long-term omeprazole twice daily and does not have any worsening GERD like symptoms. Does not necessarily feel that there is much drainage down the back of the throat. The cough is basically dry in nature for the most part. A little bit of throat clearing but that is not the major issue that is much as the cough itself. Getting into coughing fits at times. Former smoker, approximately 20+ pack-year history, quit in 2006. No recent new medications added to his list. He did develop cough with CLYDE inhibitor but is not on anything currently that has any concern at weight. In fact he is weaning off ofEffexor and mirtazapine at this point per his psychiatrist and apparently he is going back to an MAOI inhibitor which in the past they given some relief of his symptoms. No throat pain, throat swelling, difficulty swallowing. No fullness sensation in the neck. Review of systems per chart. Physical exam. Vital signs on chart. EOMI. PERRLA. Sclera are clear. TMs are unremarkable with normal light reflexes. Canals are unremarkable. Mild ceruminosis bilateral lateral. Posterior pharynx is unremarkable. Good dentition. No cervical or supraclavicular lymph nodes enlarged or tender. No clear thyromegaly. No thyroid nodules readily palpable. Lungs are without wheeze, rhonchi, rales. No E/A changes are heard. Heart is regular. Not tachycardic. No clear murmur, rub, or gallop is identified. The abdomen is soft. Bowel sounds are present. Nontender nondistended abdomen. ROS Const Constitutional: No body ache, chills, excessive sweating, fatigue, fever(s), frequent falls, headache(s), snoring, weakness or change in appetite Eyes Eyes: No blurry vision, change in vision, eye pain or Light sensitivity ENT ENT: No abnormal hearing, ear or mastoid pain, tinnitus, nasal congestion, headache(s), neck pain or sore throat Resp Respiratory: Positive for cough Cough: Yes non-productive; No shortness of breath, snoring or wheezing Cardio Cardiology: No chest pain at rest, chest pain with exertion, excessive sweating,dyspnea on exertion, lightheadedness, orthopnea or palpitations Gastro GI: No abdominal pain, change in bowel habits, constipation, cramping, diarrhea,nausea/dyspepsia or vomiting Genitourinary Male: No burning urination, painful urination, urinary incontinence or urinary frequency Musc Musculoskeletal: Positive for abnormal gait and other (Pain from right hip to right knee ); No joint pain, back pain, limited range of motion, muscle weakness, neck pain ornumbness Skin Skin: No dry skin, redness, lesions, itchy eyes, rash or wounds Neuro Neurology: Positive for abnormal gait; No abnormal hearing, weakness, frequent falls, headache(s), memory loss or numbness Psych Psychiatric: No anxiety, No change in appetite, No depression, No memory loss and No Thoughts of harming yourself/Others Endo Endocrine: No cold intolerance, excessive sweating, fatigue, flushing, heat intolerance, increased thirst/drinking or increased hunger Aller/Imm Allergy/Immunologic: No itchy eyes, seasonal allergy symptoms, hives or wheezing Roque/Lymp Hematologic/Lymphatic: No easy bleeding or easy bruising Coding Level of Care Code Off vis,est,level 3 Diagnoses Persistent dry cough R05.3 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 He does note that relatively recent, he switched to a new cat litter that is made of pine-based material. Previously was using tidy cat. We discussed, that since this is really the only new thing introduced into the environment at home, that he switch back to the original yfn litter. The litter boxes in the garage but he states the garage door is generally open all the time. Most of his day is in the living room which is not too distant from that room and no doors between. Otherwise he willstarted on a trial of Nasacort. He will start with 1 spray twice daily then after a week or so, go down to once a day in the evening. He would update us prachi few weeks if this resolves the issues. If not, consider further evaluation, particularly in light of his prior smoking history where we would consider CT chest, and lung functions perhaps methacholine challenge. I do not get the sense here that at this point in life he has developed a cough variant asthma but that is possible. Evaluation of the vocal cords might be appropriate as well with the ENT as we discussed. Await outcome as above. 30-minute visit. 07/28/25 1131 <Electronically signed by Pietro bernard MD> Date _ Pietro Turner MD Cosign Signature: Date (if applicable) CC: ~ [facility] Work Phone: 1(463) 828-478309-30-2025 [facility] [address] [place], [place] [address] OFFICE VISIT Date of Service: 07/28/25 MR#: [id number] Acct: [id number] Name: ALIX LEE Rep #: [id number] : 1960 Provider: Dr. Carmen Turner MD Age/Sex: 65/M Location: [facility] Status: Signed Intake Vital Signs 06/17/25 15:11 07/28/25 10:34 Height 6 ft 1 in 6 ft 1 in Weight: 266 lb 8 oz 260 lb BMI 35.2 34.2 BP 153/79 H 173/90 H Blood Pressure Location Lt brachial Lt brachial Position Sitting Sitting Respiration 16 Pulse 98 86 Pulse Source Monitor Monitor Temp 98.6 F 98.4 F Temp Source Temporal Temporal Pulse Oximetry (%) 95 97 Oxygen Delivery Method room air room air Intake Visit Reasons: Persistent Cough 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 Accompanied by: Self Is patient in pain?: No Allergies Penicillins (PCN) Allergy (Verified 07/28/25 10:37) Other [id number] Reductase Inhibitor Adverse Reaction (Intermediate, Verified 07/28/25 10:37) myalgias lisinopril Adverse Reaction (Verified 07/28/25 10:37) cough spironolactone Adverse Reaction (Verified 07/28/25 10:37) elevated blood sugar Medications ?Medication ?Instructions ?Recorded ?Confirmed ?Type needle (disp) 18 G 18 gauge x 1 #100 ea 05/22/2207/01 Rx (BD Regular Bevel [place]) flash glucose scanning reader #1 ea 02/05/24 07/28/25 Rx (FreeStyle Jean 2 [place]) cholecalciferol (vitamin D3) 125 5,000 unit PO DAILY 0 05/05/24 07/28/25 History mcg (5,000 unit) tablet (Vitamin D3) ferrous sulfate 325 mg (65 mg 325 mg PO DAILY 05/05/24 07/28/25 History iron) tablet (FeroSul) trifluoperazine 2 mg tablet 2 mg PO 0300 For nervous t ics. 05/05/24 07/28/25 History syringe with needle, safety 3 mL #50 ea 05/13/2407/28 Rx 25 gauge x 1 aspirin 81 mg tablet,delayed 81 mg PO 1400 05/23/24 History release magnesium glycinate 100 mg (as 100 mg PO QHS 09/05/24 07/28/25 History glycinate) tablet (Mag Glycinate) melatonin 10 mg capsule 10 mg PO QHS PRN sleep 09/0507/28/25 History carvedilol 25 mg tablet 25 mg PO BID #180 tabs 10/2307/28/25 Rx metformin 500 mg tablet,extended 1,000 mg (2 x 500 mg) PO BID #360 11/13/24 07/28/25 Rx release 24 hr tabs omeprazole 20 mg capsule,delayed 20 mg PO BID #180 cap s 11/13/24 07/28/25 Rx release duloxetine 60 mg capsule,delayed 60 mg PO QDAY 5 07/28/25 History release multivitamin 1 tab PO QDAY 01/01/2507/28 History amlodipine 5 mg tablet 5 mg PO DAILY #90 TABLETS 07/28/25 Rx flash glucose sensor (FreeStyle #1 ea 03/13/25 5 Rx Jean 2 Sensor kit) isosorbide mononitrate 60 mg 60 mg PO BID #180 tabs 07/28/25 Rx tablet,extended release 24 hr nitroglycerin 0.4 mg sublingual 0.4 mg sublingual Q5-1 5M PRN chest 03/13/25 07/28/25 Rx tablet (Nitrostat) pain #25 tabs semaglutide 2 mg/dose (8 mg/3 mL) 2 mg (0.75 mL) subcu t QWEEK #3 mL 06/10/25 07/28/25 Rx subcutaneous pen injector testosterone cypionate 200 mg/mL 150 mg (0.75 mL) IM Q 2W #5 mL 07/01/25 07/28/25 Rx intramuscular oil mirtazapine 7.5 mg tablet 7.5 mg PO QHS 07/28/2507/28 History venlafaxine 37.5 mg 37.5 mg PO QDAY 07/28/25 History capsule,extended release 24 hr PFSH Medical History (Updated 07/28/25 @ 11:[address] Pietro Turner MD) Persistent dry cough Discomfort of right hip Concern about urinary tract disease without diagnosis UTI (urinary tract infection) Acute bronchitis Erectile dysfunction Alcohol use Bruising High cholesterol Gastric reflux History of Holter monitoring History of echocardiogram Nausea & vomiting Colon cancer screening Wears hearing aid Wears glasses Schizophrenia Anxiety Diabetes Low iron Fatty liver Restless legs Back pain Tic disorder History of diverticulitis Former smoker History of stress test Cardiology follow-up encounter Hypertension Cholelithiasis History of sarcoidosis Depression Pancreatitis 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 History of non-ST elevation myocardial infarction (NSTEMI) (07/26/20) Essential hypertension Type 2 diabetes mellitus Nausea Fatigue Urinary hesitancy Liver disease Hypoglycemia Hyperlipemia Gout GERD (gastroesophageal reflux disease) Anxiety and depression Bone fracture Anemia History of alcohol abuse Schizoaffective disorder Surgical History History of cardiac catheterization History of cholecystectomy Hx of colonoscopy History of left heart catheterization (11/02/21) History of coronary artery stent placement (07/26/20) History of cataract surgery History of placement of ear tubes History of tonsillectomy History of amputation of finger Family History Other CVA (cerebral vascular accident) Cancer Depression with anxiety Diabetes FH: mental illness Hyperlipemia Hypertension Osteoporosis Social History Smoking Status: Former smoker quit date: 10/29/05 Tobacco: How many years used: 15 alcohol intake: former year quit: 2014 substance use type: does not use caffeine: Yes Type: carbonated beverages and coffee what type of physical activity do you participate in: walking HPI HPI Details: ALIX LEE, is a 65 M who presents to the office today for an acute care follow-up visit. Dry cough. Started about 3 weeks ago he feels. Did not startwith a respiratory infection, sputum production, fever, chills, sore throat etc. He describes this as somewhat of a dry feeling in the back of the throat, prompting cough. He states somewhat if he concentrates he can control it to some degree. Notnecessarily worse at night and coughing is not keeping him up. He is not overtly short of breath. No chest pain, chest tightness is noted. He is on long-term omeprazole twice daily and does not have any worsening GERD like symptoms. Does not necessarily feel that there is much drainage down the back of the throat. The cough is basically dry in nature for the most part. A little bit of throat clearing but that is not the major issue that is much as the cough itself. Getting into coughing fits attimes. Former smoker, approximately 20+ pack-year history, quit in 2006. No recent new medications added to his list. He did develop cough with CLYDE inhibitor but is not on anything currently that has any concern at weight. In fact he is weaning off ofEffexor and mirtazapine at this point per his psychiatrist and apparently he is going back to an MAOI inhibitor which in the past they given some relief of his symptoms. No throat pain, throat swelling, difficulty swallowing. No fullness sensation in the neck. Review of systems per chart. Physical exam. Vital signs on chart. EOMI. PERRLA. Sclera are clear. TMs are unremarkable with normal light reflexes. Canals are unremarkable. Mild ceruminosis bilateral lateral. Posterior pharynx isunremarkable. Good dentition. No cervical or supraclavicular lymph nodes enlarged or tender. No clear thyromegaly. No thyroid nodules readily palpable. Lungs are without wheeze, rhonchi, rales. No E/A changes are heard. Heart is regular. Not tachycardic. No clear murmur, rub, or gallop is identified. The abdomen is soft. Bowel sounds are present. Nontender nondistended abdomen. ROS Const Constitutional: No body ache, chills, excessive sweating, fatigue, fever(s), frequent falls, headache(s), snoring, weakness or change in appetite Eyes Eyes: No blurry vision, change in vision, eye pain or Light sensitivity ENT ENT: No abnormal hearing, ear or mastoid pain, tinnitus, nasal congestion, headache(s), neck pain or sore throat Resp Respiratory: Positive for cough Cough: Yes non-productive; No shortness of breath, snoring or wheezing Cardio Cardiology: No chest pain at rest, chest pain with exertion, excessive sweating,dyspnea on exertion, lightheadedness, orthopnea or palpitations Gastro GI: No abdominal pain, change in bowel habits, constipation, cramping, diarrhea,nausea/dyspepsia orvomiting Genitourinary Male: No burning urination, painful urination, urinary incontinence or urinary frequency Musc Musculoskeletal: Positive for abnormal gait and other (Pain from right hip to right knee ); No joint pain, back pain, limited range of motion, muscle weakness, neck pain ornumbness Skin Skin: No dry skin, redness, lesions, itchy eyes, rash or wounds Neuro Neurology: Positive for abnormal gait; No abnormal hearing, weakness, frequent falls, headache(s), memory loss or numbness Psych Psychiatric: No anxiety, No change in appetite, No depression, No memory loss and No Thoughts of harming yourself/Others Endo Endocrine: No cold intolerance, excessive sweating, fatigue, flushing, heat intolerance, increased thirst/drinking or increased hunger Aller/Imm Allergy/Immunologic: No itchy eyes, seasonal allergy symptoms, hives or wheezing Roque/Lymp Hematologic/Lymphatic: No easy bleeding or easy bruising Coding Level of Care Code Off vis,est,level 3 Diagnoses Persistent dry cough R05.3 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 He does note that relatively recent, he switched to a new cat litter that is made of pine-based material. Previously was using tidy cat. We discussed, that since this is really the only new thing introduced into the environment at home, that he switch back to the original yfn litter. The litter boxes in the garage but he states the garage door is generally open all the time. Most of his day is in the living room which is not too distant from that room and no doors between. Otherwise he willstarted on a trial of Nasacort. He will start with 1 spray twice daily then after a week or so, go down to once a day in the evening. He would update us prachi few weeks if this resolves the issues. If not, consider further evaluation, particularly in light of his prior smoking history where we would consider CT chest, and lung functions perhaps methacholine challenge. I do not get the sense here that at this point in life he has developed a cough variant asthmabut that is possible. Evaluation of the vocal cords might be appropriate as well with the ENT as we discussed. Await outcome as above. 30-minute visit. 07/28/25 1131 r > Date _ Pietro Garsia Signature: Date (if applicable) CC: ~ [facility]07-17-2025 NoteHNO ID: [id number] Author: DIOGENES SHERMAN APRN.MANAGER CASE MANAGEMENT Service: ? Author Type: Nurse Practitioner Type: Progress Notes Filed: 05/14/2025 16:01 Note Text: [facility] NEW PATIENT HISTORY AND PHYSICAL EXAMINATION PATIENT: Alix Lee (65 year old) PCP: Kasey Ingram MD Assessment AND Plan Erectile dysfunction, unspecified erectile dysfunction type - Erectile dysfunction likely multifactorial, influenced by current medications including isosorbide and Cymbalta. Educated patient on the use of phosphodiesterase inhibitors such as sildenafil and tadalafil, emphasizing the contraindication with concurrent use of nitrates like isosorbide and nitroglycerin. Discussed potential side effects including headaches, nasal congestion, flushing, dyspepsia, myalgia, and priapism. Advised patient to consult with container washer regarding discontinuation of isosorbide before initiating PDE5 inhibitors. Alternative treatments discussed include vacuum erection devices and intracavernosal injections. Patient to follow up with container washer and notify us once cleared to discontinue isosorbide. Male hypogonadism - Currently on testosterone cypionate 100 mg IM every 2 weeks. Recent testosterone levels reportedly at the lower end of normal. Ordered serum testosterone trough level to be drawn 2 days before next scheduled injection and peak level 2 days after injection, both before 10:00 AM to ensure accurate measurement. Will review results to determine if dosage adjustment is necessary. Orders: TESTOSTERONE, TOTAL BY IMMUNOASSAY (ADULT MALES, OR INDIVIDUALS ON TESTOSTERONE THERAPY); Future TESTOSTERONE, TOTAL BY IMMUNOASSAY (ADULT MALES, OR INDIVIDUALS ON TESTOSTERONE THERAPY); Future History of kidney stones - Passed a small kidney stone a few months ago; no current issues reported. No family history of nephrolithiasis. Monitor for any recurrent symptoms. Family history of prostate cancer - Brother with a history of prostate cancer. Patient is aware and follows up with primary care physician for regular screenings. FOLLOW UP: Return if symptoms worsen or fail to improve. CHIEF COMPLAINT: Patient presents with: Erectile Dysfunction HISTORY OF PRESENT ILLNESS: I personally reviewed the patient's past medical records. Mr. Lee is a 65 year old male referred by self for ED. Previous Urologist: unsure Hx of kidney stones: a few months ago, no prior imaging Family hx of kidney stones/treatment: denies Personal/family hx of kidney cancer, bladder cancer, or prostate cancer: brother hx of prostate cancer Previous surgery on kidneys, bladder, urethra, or prostate: denies Hx of smoking: denies Environmental/occupational exposures: denies Erectile Dysfunction: - Onset over the past year. - Able to achieve partial erections, but insufficient for penetration. - Experiences morning erections and can achieve erections with masturbation, but they do not last. - Last successful intercourse was years ago; has not had an intimate relationship for a long time. - Libido is pretty good now; does not attribute improvement to testosterone therapy. - Reports difficulty achieving orgasm, stating it takes so long. - Denies penile curvature or pain with intercourse. - Currently on testosterone injections, 100 mg every 2 weeks, prescribed by Dr. Carlisle. - Recent testosterone levels were at the low end of normal; patient inquired about increasing the dose but was advised against it by Dr. Carlisle. Coronary Artery Disease: - History of myocardial infarction with 98% blockage in the LAD. - Currently taking isosorbide and low-dose aspirin. - Last took nitroglycerin about 6 months ago for suspected chest pain, but believes it was indigestion. - Reports being very hypersensitive about heart health and does not take chances due to past IA. - Recent blood pressure reading was 164/92 mmHg. Kidney Stones: - Passed a small kidney stone a few months ago; no other stones detected. - Denies family history of kidney stones. Family History: - Brother has a history of prostate cancer. Social History: - Former smoker, quit in 2006. REVIEW OF SYSTEMS GENERAL:denies unintentional weight loss, malaise or fevers. NEUROLOGIC: pt is alert and oriented GASTROINTESTINAL: No nausea, vomiting, or diarrhea GENITOURINARY: See HPI MUSCULOSKELETAL: Negative for joint pain or swelling, back pain or muscle pain SKIN: Negative for lesions, rash, and itching. ALLERGIES: ALLERGIES Allergen Reactions Penicillins MEDICATIONS: evolocumab 140 mg/mL subcutaneous pen injector (REPATHA SURECLICK) Inject 140 mg (more content not included)...[facility]06-30-2025 Evaluation note * Diagnosis Onset Date Resolution Status Admit Date Acute bronchitis acute March 10:28am 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 acute April 27, 2025 10:28am Erectile dysfunction acute April 27, 2025 10:28am Essential hypertension acute 2024 10:28am Hyperlipemia chronic April 27, 025 10:28am Type 2 diabetes mellitus chronic April 27, 2025 10:28am [facility] Work Phone: 1([phone]) 527-729506-30-2025 Evaluation note* Diagnosis Onset Date Resolution Status Admit Date Acute bronchitis acute March 10:28am 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 acute April 27, 2025 10:28am Erectile dysfunction acute April 27, 2025 10:28am Essential hypertension acute 2024 10:28am Hyperlipemia chronic April 27, 025 10:28am Type 2 diabetes mellitus chronic April 27, 2025 10:28am 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 acute May 18, 2025 11:38am Concern about urinary tract disease without diagnosis acute April 292024 11:38am Erectile dysfunction acute May 18, 2025 11:38am Essential hypertension acute 2024 11:38am Hypogonadism in male acute May 18, 2025 11:38am Type 2 diabetes mellitus chronic May 18, 2025 11:38am [facility] Work Phone: 1([phone]) 392-399306-30-2025 Evaluation note* Diagnosis Onset Date Resolution Status Admit Date Acute bronchitis acute March 10:28am 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 acute April 27, 2025 10:28am Erectile dysfunction acute April 27, 2025 10:28am Essential hypertension acute Ju 2024 10:28am Hyperlipemia chronic April 27 025 10:28am Type 2 diabetes mellitus chronic April 27, 2025 10:28am 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 acute May 18, 2025 11:38am Concern about urinary tract disease without diagnosis acute April 292024 11:38am Erectile dysfunction acute May 18, 2025 11:38am Essential hypertension acute Ju ly 2024 11:38am Hypogonadism in male acute May 18, 2025 11:38am Type 2 diabetes mellitus chronic May 18, 2025 11:38am Discomfort of right hip acute A ugust 2024 3:02pm [facility] Work Phone: 1([phone]) 467-904006-30-2025 Evaluation note* Diagnosis Onset Date Resolution Status Admit Date Acute bronchitis acute March 10:28am 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 acute April 27, 2025 10:28am Erectile dysfunction acute April 27, 2025 10:28am Essential hypertension acute Ju 2024 10:28am Hyperlipemia chronic April 27 10:28am Type 2 diabetes mellitus chronic April 27, 2025 10:28am 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 acute May 18, 2025 11:38am Concern about urinary tract disease without diagnosis acute April 292024 11:38am Erectile dysfunction acute May 18, 2025 11:38am Essential hypertension acute Ju ly 2024 11:38am Hypogonadism in male acute May 18, 2025 11:38am Type 2 diabetes mellitus chronic May 18, 2025 11:38am 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 acute June 17 3:02pm Discomfort of right hip acute A ugust 2024 3:02pm Essential hypertension acute Au adore 2024 3:02pm Impacted cerumen of both ears acute June 17, 2025 3:02pm Type 2 diabetes mellitus chronic June 17, 2025 3:02pm Proteinuria noneactive June 17, 2025 3:02pm [facility] Work Phone: 1([phone]) 640-976406-30-2025 Evaluation note* Diagnosis Onset Date Resolution Status Admit Date Acute bronchitis acute March 10:28am 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 acute April 27 10:28am Erectile dysfunction acute April 27, 2025 10:28am Essential hypertension acute Ju 2024 10:28am Hyperlipemia chronic April 27 10:28am Type 2 diabetes mellitus chronic April 27, 2025 10:28am 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 acute May 18 11:38am Concern about urinary tract disease without diagnosis acute April 292024 11:38am Erectile dysfunction acute May 18, 2025 11:38am Essential hypertension acute Ju 2024 11:38am Hypogonadism in male acute May 18, 2025 11:38am Type 2 diabetes mellitus chronic May 18, 2025 11:38am 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 acute June 17, 2025 3:02pm Discomfort of right hip acute A ugust 2024 3:02pm Essential hypertension acute [place] 2024 3:02pm Impacted cerumen of both ears acute June 17, 2025 3:02pm Type 2 diabetes mellitus chronic June 17, 2025 3:02pm Proteinuria noneactive June 17, 2025 3:02pm 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 acute July 282024 10:31am Essential hypertension acute Se ptember 2024 10:31am Persistent dry cough acute Sept ember 2024 10:31am [facility] Work Phone: [phone] Evaluation note* Diagnosis Onset Date Resolution Status Admit Date Acute bronchitis acute March 10:28am Atherosclerotic heart disease of makah coronary artery with other forms of acute April 27, 2025 10:28am Erectile dysfunction acute April 27, 2025 10:28am Essential hypertension acute Ju ne 2024 10:28am Hyperlipemia chronic April 27 10:28am Type 2 diabetes mellitus chronic April 27, 2025 10:28am Atherosclerotic heart disease of makah coronary artery with other forms of acute May 18, 2025 11:38am Concern about urinary tract disease without diagnosis acute May 18, 2025 11:38am Erectile dysfunction acute May 18, 2025 11:38am Essential hypertension acute Ju ly 2024 11:38am Hypogonadism in male acute May 18, 2025 11:38am Type 2 diabetes mellitus chronic May 18, 2025 11:38am Atherosclerotic heart disease of makah coronary artery with other forms of acute June 17 3:02pm Discomfort of right hip acute A ugust 2024 3:02pm Essential hypertension acute [place] 2024 3:02pm Impacted cerumen of both ears acute June 17 3:02pm Type 2 diabetes mellitus chronic June 17, 2025 3:02pm Proteinuria noneactive June 17, 2025 3:02pm Atherosclerotic heart disease of makah coronary artery with other forms of acute July 28, 2025 10:31am Essential hypertension acute Se ptember 2024 10:31am Persistent dry cough acute Sept emb2024 10:31am Chest pain acute August 10, 2025 1:30pm Essential hypertension acute Oc tober 2024 1:30pm History of coronary artery stent placement July 26, 2020 acute August 10, 2025 1:30pm Hyperlipemia chronic July 1:30pm Type 2 diabetes mellitus chronic August 10, 2025 1:30pm Muscle pain acute August 24, 2025 1:36pm Myalgia, lower leg acute Octobe r 2024 1:36pm [facility] Work Phone: 1([phone]) 878-316103-06-2025 Evaluation note* Diagnosis Onset Date Resolution Status Admit Date 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 acute January 01, 2025 4:05pm Erectile dysfunction acute Klaus h 2024 4:05pm Low testosterone in male acute January 01, 2025 4:05pm Hyperlipemia chronic January 01, 2 025 4:05pm Schizoaffective disorder chronic January 01, 2025 4:05pm Type 2 diabetes mellitus chronic January 01, 2025 4:05pm 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 acute April 27, 2025 10:28am Essential hypertension acute Ju ne 2024 10:28am Hyperlipemia chronic April 27, 2 025 10:28am Type 2 diabetes mellitus chronic April 27, 2025 10:28am [facility] Work Phone: 1(189) 826-714201-10-2025 [facility] Medical Records Department [address] [place] [address] History Physical Exam 11/07/24 0655 MR#: [id number] Acct: [id number] Name: ALIX LEE Rep #: [id number] : 1960 64 From: Dimitry Camp MD PCP: Dr. Pietro Turner MD Status:[facility] Location: [place] [address] History and Physical Date of Admission: 11/07/24 Intake Vital Signs 09/05/2413:01 09/26/2408:31 10/14/2413:35 Height 6 ft 1 in 6 ft 1 in 6 ft 1 in Weight: 266 lb BMI 35.1 BP 128/74 H Blood Pressure Location Rt brachial Position Sitting Respiration 18 Pulse 80 Pulse Source Monitor Temp 98.2 F Temp Source Temporal Pulse Oximetry (%) 99 Oxygen Delivery Method room air Intake Visit Reasons: COLONOSCOPY Chief Complaint: colonoscopy Is patient in pain?: No Allergies Penicillins (PCN) Allergy (Verified 10/14/24 13:36) Otherlisinopril Adverse Reaction (Verified 10/14/24 13:36) coughspironolactone Adverse Reaction (Verified 10/14/24 13:36) elevated blood sugar Medications ???Medication ???Instructions ???Recorded ???Confirmed ???Type needle (disp) 18 G 18 gauge x 1 #100 ea 05/22/22 10/14/24 Rx (BD Regular Bevel [place]) nitroglycerin 0.4 mg sublingual 0.4 mg sublingual Q5-15M PRN chest 01/11/24 10/14/24 Rx tablet (Nitrostat) pain #25 tabs atorvastatin 40 mg tablet 40 mg PO QHS 90 days #90 tabs 01/14/24 10/14/24 Rx flash glucose scanning reader #1 ea 02/05/24 10/14/24 Rx (FreeStyle Jean 2 [place]) flash glucose sensor (FreeStyle #1 ea 02/05/24 10/14/24 Rx Jean 2 Sensor kit) cholecalciferol (vitamin D3) 125 5,000 unit PO DAILY 05/05/24 10/14/24 History mcg (5,000 unit) tablet (Vitamin D3) coenzyme Q10 100 mg capsule 100 mg PO DAILY because I'm taking 05/05/24 10/14/24 History (CoQ-10) a statin ferrous sulfate 325 mg (65 mg 325 mg PO DAILY 05/05/24 10/14/24 History iron) tablet (FeroSul) fluoxetine 40 mg capsule 80 mg PO 1400 05/05/24 10/14/24 History metformin 500 mg tablet,extended 1,000 mg PO BID 05/05/24 10/14/24 History release 24 hr trifluoperazine 2 mg tablet 2 mg PO 0300 For nervous tics. 05/05/24 10/14/24 History syringe with needle, safety 3 mL #50 ea 05/13/24 10/14/24 Rx 25 gauge x 1 amlodipine 5 mg tablet 5 mg PO 0400 05/23/24 10/14/24 History aspirin 81 mg tablet,delayed 81 mg PO 1400 05/23/24 10/14/24 History release carvedilol 25 mg tablet 25 mg PO 1400,0100 05/23/24 10/14/24 History omega-3-epa 910 mg-fish oil 1,300 2 cap PO DAILY 05/23/24 10/14/24 History mg capsule,delayed release vitamin B complex 1 tab PO DAILY 05/23/24 10/14/24 History testosterone cypionate 200 mg/mL 100 mg (0.5 mL) IM Q2W #5 mL 06/09/24 10/14/24 Rx intramuscular oil semaglutide 0.25 mg or 0.5 mg (2 0.5 mg (0.736 mL) subcut QWEEK #3 08/25/24 10/14/24 Rx mg/3 mL) subcutaneous pen injector mL (Ozempic) diazepam 5 mg tablet (Valium) 5 mg PO TID PRN dizziness or 08/31/24 10/14/24 Rx vertigo 5 days #15 tabs isosorbide mononitrate 60 mg 60 mg PO BID 09/05/24 10/14/24 History tablet,extended release 24 hr magnesium glycinate 100 mg (as 100 mg PO QHS 09/05/24 10/14/24 History glycinate) tablet (Mag Glycinate) melatonin 10 mg capsule 10 mg PO QHS PRN 09/05/24 10/14/24 History omeprazole 20 mg capsule,delayed 20 mg PO BID 09/05/24 10/14/24 History release methylprednisolone 4 mg tablets in See Rx Instructions PO PER PKG DIR 09/27/24 10/14/24 Rx a dose pack (Medrol (Mark)) #21 tabs PFSH Medical History Nausea vomiting Colon cancer screening Cholelithiasis Wears hearing aid Wears glasses Schizophrenia Anxiety Diabetes Low iron Fatty liver Restless legs Back pain Tic disorder History of diverticulitis Former smoker History of stress test Cardiology follow-up encounter Hypertension History of sarcoidosis Depression Pancreatitis 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 History of non-ST elevation myocardial infarction (NSTEMI) (07/26/20) Essential hypertension Type 2 diabetes mellitus Nausea Fatigue Urinary hesitancy Liver disease Hypoglycemia Hyperlipemia Gout GERD (gastroesophageal reflux disease) Anxiety and depression Bone fracture Anemia History of alcohol abuse Schizoaffective disorder Surgical History History of cholecystectomy Hx of colonoscopy History of left heart catheterization (11/02/21) History of coronary artery stent placement (07/26/20) History of cataract surgery History of placement of ear tubes History of tonsillectomy History of amputation of finger Family History (Reviewed (more content not included)...[facility]12-19-2024 Evaluation note* Diagnosis Onset Date Resolution Status Admit Date Right elbow tendinitis [facility] 3:39pm Right elbow tendinitis acute [facility] 2024 2:55pm Essential hypertension acute [facility] 2024 2:51pm History of coronary artery stent placement July 26, 2020 acute October 2:51pm Hyperlipemia chronic October 2:51pm Type 2 diabetes mellitus chronic November 25, 2024 2:51pm Atherosclerotic heart disease of makah coronary artery with other forms of acute January 01, 2025 4:05pm Erectile dysfunction acute Klaus h 2024 4:05pm Low testosterone in male acute January 01, 2025 4:05pm Hyperlipemia chronic January 01, 2 025 4:05pm Schizoaffective disorder chronic January 01, 2025 4:05pm Type 2 diabetes mellitus chronic January 01, 2025 4:05pm [facility] Work Phone: 1(717) 184-162012-17-2024 Evaluation note* Diagnosis Onset Date Resolution Status Admit Date Colon cancer screening acute 2023 1:29pm Right elbow tendinitis [facility] 3:39pm Right elbow tendinitis acute [facility] 2024 2:55pm Essential hypertension acute [facility] 2024 2:51pm History of coronary artery stent placement July 26, 2020 acute October 2:51pm Hyperlipemia chronic October 2:51pm Type 2 diabetes mellitus chronic November 25, 2024 2:51pm Atherosclerotic heart disease of makah coronary artery with other forms of acute January 01, 2025 4:05pm Erectile dysfunction acute Klaus 2024 4:05pm Low testosterone in male acute January 01, 2025 4:05pm Hyperlipemia chronic January 01, 025 4:05pm Schizoaffective disorder chronic January 01, 2025 4:05pm Type 2 diabetes mellitus chronic January 01, 2025 4:05pm [facility] Work Phone: 1([phone]) 231-774012-08-2023 NoteHNO ID: [id number] Author: Melissa Milan APRN.MANAGER CASE MANAGEMENT Service: ? Author Type: Nurse Practitioner Type: Progress Notes Filed: 10/05/2023 6:48 PM Note Text: Subjective Cough Associated symptoms include chest pain (lungs burning with cough), headaches, myalgias and shortness of breath. Pertinent negatives include no chills, no sore throat and no wheezing. Alix Lee is a 63 year old male who presents with cough, body aches, headache, feeling short of breath. He believes he was exposed to COVID 2 days ago at [place]. He has not had a fever. He [...] Discussed expected course of illness Melissa Milan APRN.[facility]08-10-2022 NoteHNO ID: [id number] Author: Gabriela Calzada PSYD Service: ? Author Type: Psychologist Type: Progress Notes Filed: 06/07/2022 1:13 PM Note Text: Behavioral Sleep Medicine Follow up ZENON Silva Psychotherapy - 45 minutes With the current coronavirus outbreak, we want to minimize the risk of exposing patients to this illness. I have reviewed this patient's chart and, per patient's request for an opportunity to be seen without having to present to the office, feel appropriate that this appointment be made a virtual visit. Those taking part in visit: patient and psychologist via [employer] zoom. Consent for this visit received from patient. [...] part in visit: patient and psychologist via [employer] zoom. Consent for this visit received from patient. [...] Awake Out of bed Quality TIBC TST 90 2135 2150 10 0 0 0232 [...] Awake Out of bed Quality TIB TST 60 2330 2330 20 2 10 0740 [...] 1015 1015 3 11.1 10.6 0 0000 56803 5 2 15 1100 1100 4 11.0 [...] delayed phase Schizoaffective Disorder PROGRESS TO DATE: Retirement Progress: Progress Short Term Condition: (more content not included)...[facility] [id number] NoteHNO ID: [id number] Author: Gabriela Calzada PSYD Service: ? Author Type: Psychologist Type: Progress Notes Filed: 05/16/2022 4:39 PM Note Text: [facility] Virtual Group May 16, 2022 Time: 3-4pm [id number]: Virtual Group Psychotherapy The [facility] virtual group [...] -Stimulus Control -Psychoeducation on sleep medications Mr. Lee paid good attention during the group, and made several contributions to the discussion. His understanding of the material presented appeared good. ASSESSMENT: Insomnia Severity Index Total Score: 24 (04/26/2022 11:30 AM) Pt did complete sleep logs, reviewed in session with pt permission Day Nap (mins) In bed Try sleep DANIEL (mins) #Wake WASO (mins) Awake Out of bed Quality TIB TST SE 10 2345 0000 90 5 60 0945 [...] Out of bed Quality TIB TST SE 16-Hieu 180 1920 1920 10 3 90 0940 [...] avoid exercise after 10pm Gabriela Calzada PSYD PsychologistValley Springs Behavioral Health [id number] Evaluation + Plan note Future Scheduled Tests Laboratory* Basic Metabolic Panel 08/29/21 * Basic Metabolic Panel 09/26/21 * Basic Metabolic Panel 10/24/21 * Basic Metabolic Panel 11/21/21 * Complete Blood Count 11/20/21 * Complete Blood Count 01/06/21 * Lipid Profile 11/20/21 * Lipid Profile 01/06/21 * Complete Metabolic Panel 11/20/21 * Complete Metabolic Panel 01/06/21 [facility] 03-11-2021 Evaluation + Plan note Future Scheduled Tests Laboratory* Basic Metabolic Panel 08/29/21 * Basic Metabolic Panel 09/26/21 * Basic Metabolic Panel 10/24/21 * Basic Metabolic Panel 11/21/21 * Complete Blood Count 11/20/21 * Complete Blood Count 01/06/21 * Lipid Profile 11/20/21 * Lipid Profile 01/06/21 * Complete Metabolic Panel 11/20/21 * Complete Metabolic Panel 01/06/21 [facility] 09-28-2020 Evaluation note* Diagnosis Onset Date Resolution Status Bloating noneactive Bonham stool noneactive Constipation noneactive Essential hypertension acute History of coronary artery stent placement June 302019 acute Hyperlipemia [facility] Work Phone: 1(671) 914-288909-28-2020 Evaluation note* Diagnosis Onset Date Resolution Status Bloating noneactive Bonham stool noneactive Constipation noneactive Essential hypertension acute History of coronary artery stent placement June 302019 acute Hyperlipemia chronic Anemia acute Dyspnea acute Essential hypertension acute Fatigue acute Low testosterone in male acu te Type 2 diabetes mellitus acu te Hyperlipemia chronic Schizoaffective disorder chr onic Essential hypertension acute Hypogonadism in male acute Obesity acute Type 2 diabetes mellitus acu te Hyperlipemia chronic Hypogonadism in male acute [facility] Work Phone: 1([phone]) 212-500309-28-2020 Evaluation note* Diagnosis Onset Date Resolution Status Essential hypertension acute History of coronary artery stent placement June 302019 acute Hyperlipemia chronic Anemia acute Dyspnea acute Essential hypertension acute Fatigue acute Low testosterone in male acu te Type 2 diabetes mellitus acu te Hyperlipemia chronic Schizoaffective disorder chr onic Essential hypertension acute Hypogonadism in male acute Obesity acute Type 2 diabetes mellitus acu te Hyperlipemia chronic Hypogonadism in male acute Fatigue acute Hypogonadism in male acute Obesity acute Type 2 diabetes mellitus acu te GERD (gastroesophageal reflux disease) chronic Hyperlipemia chronic Schizoaffective disorder chr onic [facility] Work Phone: 1([phone]) 910-847109-28-2020 Evaluation note* Diagnosis Onset Date Resolution Status Essential hypertension acute History of coronary artery stent placement June 302019 acute Hyperlipemia chronic Essential hypertension acute History of coronary artery stent placement June 302019 acute Hyperlipemia chronic [id number] acute Essential hypertension acute Hypogonadism in male acute Impacted cerumen of both ears acute Obesity acute Type 2 diabetes mellitus acu te Hyperlipemia [facility] Work Phone: 1(763) 272-807709-28-2020 Evaluation note* Diagnosis Onset Date Resolution Status Essential hypertension acute History of coronary artery stent placement June 302019 acute Hyperlipemia chronic [id number] acute Essential hypertension acute Hypogonadism in male acute Impacted cerumen of both ears acute Obesity acute Type 2 diabetes mellitus acu te Hyperlipemia [facility] Work Phone: 1([phone]) 666-470109-28-2020 Evaluation note* Diagnosis Onset Date Resolution Status Essential hypertension acute History of coronary artery stent placement June 302019 acute Hypogonadism in male acute Multinodular goiter acute Obesity acute Type 2 diabetes mellitus acu te GERD (gastroesophageal reflux disease) chronic Hyperlipemia chronic Schizoaffective disorder chr onic History of non-ST elevation myocardial infarction (NSTEMI) July 26, 2020 resolved Fungal dermatitis acute Essential hypertension acute History of coronary artery stent placement June 302019 acute Type 2 diabetes mellitus acu te Hyperlipemia [facility] Work Phone: 1([phone]) 467-917509-28-2020 Evaluation note* Diagnosis Onset Date Resolution Status Essential hypertension acute History of coronary artery stent placement June 302019 acute Type 2 diabetes mellitus acu te Hyperlipemia chronic Dyshidrotic hand dermatitis acute Chest pain acute Dyshidrotic hand dermatitis acute Essential hypertension acute Frontal headache acute Type 2 diabetes mellitus acu te GERD (gastroesophageal reflux disease) chronic Hyperlipemia [facility] Work Phone: Evaluation note* Diagnosis Onset Date Resolution Status Fatigue acute [facility] Work Phone: Evaluation note* Diagnosis Onset Date Resolution Status Fatigue acute Hypogonadism in male acute Obesity acute Type 2 diabetes mellitus acu te GERD (gastroesophageal reflux disease) chronic Hyperlipemia chronic Schizoaffective disorder chr onic [facility] Work Phone: Evaluation note* Diagnosis Onset Date Resolution Status Fatigue acute Hypogonadism in male acute Obesity acute Type 2 diabetes mellitus acu te GERD (gastroesophageal reflux disease) chronic Hyperlipemia chronic Schizoaffective disorder chr onic Hypogonadism in male acute Type 2 diabetes mellitus acu te [facility] Work Phone: Evaluation note* Diagnosis Onset Date Resolution Status Dyshidrotic hand dermatitis acute Chest pain acute Dyshidrotic hand dermatitis acute Essential hypertension acute Frontal headache acute Type 2 diabetes mellitus acu te GERD (gastroesophageal reflux disease) chronic Hyperlipemia [facility] Work Phone: Hospital course Narrative No data available for this section [facility] Discharge instructions No data available for this section [facility] Discharge instructions Additional Instructions As discussed, you can use Voltaren cream [id number] topically for anti- inflammatory effects.[facility] Work Phone: Hospital Discharge instructionsAmbulatory Orders* Nutrition Referral Location: None Selected [facility] Work Phone: Hospital Discharge instructions Additional Instructions You had elevated liver enzymes today from your baseline and your history and exam is concerning for potential biliary colic or gallstones causing the symptoms. Talk to your family doctor about a outpatient gallbladder ultrasound and/or HIDA scan to assess for this. The CT scan showed a stone in your bladder. This most likely came from the kidney and could also be the cause of the pain you are experiencing. You will pass this stone spontaneously. Please return to the ER should you have any further concerns or worsening [facility]WM[facility] Work Phone: Reason for referral (narrative)No reason for referral information availableWMercy Health [facility]iffin Hospital Work Phone: Summary Purpose Family History No Family History Records Found Relationship Condition Age at Onset Recorded Date/T faina Not Specified Anxiety with depression Unknown Diabetes mellitus Unknown Osteoporosis Unknown Hyperlipidemia Unknown Family history of mental disorder Unknown Malignant neoplasm Unknown Hypertension Unknown Cerebrovascular accident (CVA) Unknown Advance Directives No Advanced Directives Records Found Advance Directive Response Recorded Date/ Time Advance Directives No November 02, 2021 7:57am Living Will No November 02 2 7:57am Power of Vehicle Modification Technician No November 02 7:57am Advance Directive Response Recorded Date/ Time Advance Directives No November 02, 2021 7:57am Living Will No July 29 2 11:20pm Power of Vehicle Modification Technician No July 29 11:20pm Advance Directive Response Recorded Date/ Time Advance Directives No November 02, 2021 6:57am Living Will No July 29 2 10:20pm Power of Vehicle Modification Technician No July 29 10:20pm Advance Directive Response Recorded Date/ Time Advance Directives No March 07 1:32pm Living Will No March 07, 2023 1 :32pm Power of Vehicle Modification Technician No March 07, 2023 1:32pm Advance Directive Response Recorded Date/ Time Advance Directives No March 07 12:32pm Living Will No March 07, 2023 1 2:32pm Power of Vehicle Modification Technician No March 07, 2023 12:32pm Advance Directive Response Recorded Date/ Time Advance Directives No January 01 4:46pm Living Will No January 02, 2024 4:46pm Power of Vehicle Modification Technician No January 01 4:46pm Advance Directive Response Recorded Date/ Time Advance Directives No January 01 4:46pm Living Will No February 19, 2024 2:27am Power of Vehicle Modification Technician No February 18 2:27am Advance Directive Response Recorded Date/ Time Living Will No March 07, 2023 1 :32pm Do you have a Healthcare Power of Vehicle Modification Technician? No March 07, 2023 1:32pm Living Will Yes November 06 10:54am Do you have a Healthcare Power of Vehicle Modification Technician? Yes November 06, 2024 10:54am Name of Medical Power of Vehicle Modification Technician MARISSA-ARTEM November 06, 2024 10:54am Living Will Yes November 14 7:48pm Do you have a Healthcare Power of Vehicle Modification Technician? Yes November 14, 2024 7:48pm Name of Medical Power of Vehicle Modification Technician Julio Lee November 14, 2024 7:48pm Advance Directives No December 04, 2024 5:27pm Advance Directive Response Recorded Date/ Time Advance Directives No April 27 9:35am Chief Complaint and Reason for Visit Chief Complaint CHEST PAIN SLEEP PROBLEMS sleep study quesitons CHEST PAIN Intestine issues Amb Documentation Reason for Visit Fatigue Chief Complaint CHEST PAIN Intestine issues Amb Documentation E ORDER 6 M FU ARM PAIN Reason for Visit Bloating Bonham stool Constipation Essential hypertension History of coronary artery stent placement Hyperlipemia Chief Complaint Intestine issues Amb Documentation E ORDER 6 M FU ARM PAIN FOLLOW UP Amb Documentation Testosterone injection educ. RT SHOULDER PAIN/RX HERE Reason for Visit Bloating Bonham stool Constipation Essential hypertension History of coronary artery stent placement Hyperlipemia Anemia Dyspnea Essential hypertension Fatigue Low testosterone in male Type 2 diabetes mellitus Hyperlipemia Schizoaffective disorder Essential hypertension Hypogonadism in male Obesity Type 2 diabetes mellitus Hyperlipemia Hypogonadism in male Chief Complaint E ORDER 6 M FU ARM PAIN FOLLOW UP Amb Documentation Testosterone injection educ. RT SHOULDER PAIN/RX HERE BLOOD SUGAR FALL Reason for Visit Essential hypertensi on History of coronary artery stent placement Hyperlipemia Anemia Dyspnea Essential hypertension Fatigue Low testosterone in male Type 2 diabetes mellitus Hyperlipemia Schizoaffective disorder Essential hypertension Hypogonadism in male Obesity Type 2 diabetes mellitus Hyperlipemia Hypogonadism in male Fatigue Hypogonadism in male Obesity Type 2 diabetes mellitus GERD (gastroesophageal reflux disease) Hyperlipemia Schizoaffective disorder Chief Complaint BLOOD SUGAR FALL Reason for Visit Fatigue Hypogonadism in male Obesity Type 2 diabetes mellitus GERD (gastroesophageal reflux disease) Hyperlipemia Schizoaffective disorder Chief Complaint BLOOD SUGAR FALL 3 M FU Reason for Visit Fatigue Hypogonadism in male Obesity Type 2 diabetes mellitus GERD (gastroesophageal reflux disease) Hyperlipemia Schizoaffective disorder Hypogonadism in male Type 2 diabetes mellitus Chief Complaint 6 M FU E ORDERS 3 M FU CHEST PAIN CHEST PAIN Wax Build-Up Reason for Visit Essential hypertensi on History of coronary artery stent placement Hyperlipemia Essential hypertension History of coronary artery stent placement Hyperlipemia [id number] Essential hypertension Hypogonadism in male Impacted cerumen of both ears Obesity Type 2 diabetes mellitus Hyperlipemia Chief Complaint E ORDERS 3 M FU CHEST PAIN CHEST PAIN Wax Build-Up Reason for Visit Essential hypertensi on History of coronary artery stent placement Hyperlipemia [id number] Essential hypertension Hypogonadism in male Impacted cerumen of both ears Obesity Type 2 diabetes mellitus Hyperlipemia Chief Complaint Follow up SKIN PEELING ON RIGHT PALM EORDERS 1 Y FU Reason for Visit Essential hypertensi on History of coronary artery stent placement Hypogonadism in male Multinodular goiter Obesity Type 2 diabetes mellitus GERD (gastroesophageal reflux disease) Hyperlipemia Schizoaffective disorder History of non-ST elevation myocardial infarction (NSTEMI) Fungal dermatitis Essential hypertension History of coronary artery stent placement Type 2 diabetes mellitus Hyperlipemia Chief Complaint EORDERS 1 Y FU RT Hand Skin Issues TYPE 2 DM Infected Finger, Headaches E-ORDER TYPE 2 DM Reason for Visit Essential hypertensi on History of coronary artery stent placement Type 2 diabetes mellitus Hyperlipemia Dyshidrotic hand dermatitis Chest pain Dyshidrotic hand dermatitis Essential hypertension Frontal headache Type 2 diabetes mellitus GERD (gastroesophageal reflux disease) Hyperlipemia Chief Complaint RT Hand Skin Issues TYPE 2 DM Infected Finger, Headaches E-ORDER TYPE 2 DM Reason for Visit Dyshidrotic hand toño matitis Chest pain Dyshidrotic hand dermatitis Essential hypertension Frontal headache Type 2 diabetes mellitus GERD (gastroesophageal reflux disease) Hyperlipemia Chief Complaint RT Hand Skin Issues TYPE 2 DM Infected Finger, Headaches E-ORDER TYPE 2 DM chest pain Reason for Visit Dyshidrotic hand toño matitis Chest pain Dyshidrotic hand dermatitis Essential hypertension Frontal headache Type 2 diabetes mellitus GERD (gastroesophageal reflux disease) Hyperlipemia Chief Complaint Admit Date COLONOSCOPY October 14, 2024 1:29pm R [facility] 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 October 16, 2024 3:39pm PALP October 27, 2024 1:50pm R [place] TENDONITIS. 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 January 01, 2025 4:05pm Erectile dysfunction January 01, 2025 4:0 5pm Low testosterone in male January 01, 2025 4:05pm Hyperlipemia January 01, 2025 4:05 pm Schizoaffective disorder January 01, 2025 4:05pm Type 2 diabetes mellitus January 01, 2025 4:05pm Chief Complaint Admit Date Discuss ED Treatment January 01, 2025 4:0 5pm POSSIBLE PNEUMONIA April 27, 2025 10:2 8am Reason for Visit Admit Date 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 January 01, 2025 4:05pm Erectile dysfunction January 01, 2025 4:0 5pm Low testosterone in male January 01, 2025 4:05pm Hyperlipemia January 01, 2025 4:05 pm Schizoaffective disorder January 01, 2025 4:05pm Type 2 diabetes mellitus January 01, 2025 4:05pm 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 April 27, 2025 10:28am Essential hypertension April 27, 2025 1 0:28am Hyperlipemia April 27, 2025 10:2 8am Type 2 diabetes mellitus April 27, 2025 10:28am Chief Complaint Admit Date POSSIBLE PNEUMONIA April 27, 2025 10:2 8am Possible UTI May 18, 2025 11:3 8am Reason for Visit Admit Date Acute bronchitis April 27, 2025 10:2 8am 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 April 27, 2025 10:28am Erectile dysfunction April 27, 2025 10: 28am Essential hypertension April 27, 2025 1 0:28am Hyperlipemia April 27, 2025 10:2 8am Type 2 diabetes mellitus April 27, 2025 10:28am Reason for Visit Admit Date Acute bronchitis April 27, 2025 10:2 8am 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 April 27, 2025 10:28am Erectile dysfunction April 27, 2025 10: 28am Essential hypertension April 27, 2025 1 0:28am Hyperlipemia April 27, 2025 10:2 8am Type 2 diabetes mellitus April 27, 2025 10:28am 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 May 18, 2025 11:38am Concern about urinary tract disease with out diagnosis May 18, 2025 11:38am Erectile dysfunction May 18, 2025 11: 38am Essential hypertension May 18, 2025 1 1:38am Hypogonadism in male May 18, 2025 11: 38am Type 2 diabetes mellitus May 18, 2025 11:38am Chief Complaint Admit Date POSSIBLE PNEUMONIA April 27, 2025 10:2 8am Possible UTI May 18, 2025 11:3 8am 2 LAB ORDERING ED [facility] st 2024 1:28pm Rt Hip/Leg Pain June 17, 2025 3: 02pm Reason for Visit Admit Date Acute bronchitis April 27, 2025 10:2 8am 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 April 27, 2025 10:28am Erectile dysfunction April 27, 2025 10: 28am Essential hypertension April 27, 2025 1 0:28am Hyperlipemia April 27, 2025 10:2 8am Type 2 diabetes mellitus April 27, 2025 10:28am 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 May 18, 2025 11:38am Concern about urinary tract disease with out diagnosis May 18, 2025 11:38am Erectile dysfunction May 18, 2025 11: 38am Essential hypertension May 18, 2025 1 1:38am Hypogonadism in male May 18, 2025 11: 38am Type 2 diabetes mellitus May 18, 2025 11:38am Discomfort of right hip June 17 3:02pm Chief Complaint Admit Date POSSIBLE PNEUMONIA April 27, 2025 10:2 8am Possible UTI May 18, 2025 11:3 8am 2 LAB ORDERING ED [facility] 2024 1:28pm Rt Hip/Leg Pain June 17, 2025 3: 02pm INT LAB ORDERS June 24, 2025 8: 41am Reason for Visit Admit Date Acute bronchitis April 27, 2025 10:2 8am 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 April 27, 2025 10:28am Erectile dysfunction April 27, 2025 10: 28am Essential hypertension April 27, 2025 1 0:28am Hyperlipemia April 27, 2025 10:2 8am Type 2 diabetes mellitus April 27, 2025 10:28am 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 May 18, 2025 11:38am Concern about urinary tract disease with out diagnosis May 18, 2025 11:38am Erectile dysfunction May 18, 2025 11: 38am Essential hypertension May 18, 2025 1 1:38am Hypogonadism in male May 18, 2025 11: 38am Type 2 diabetes mellitus May 18, 2025 11:38am 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 June 17, 2025 3:02pm Discomfort of right hip June 17 3:02pm Essential hypertension June 17, 2025 3:02pm Impacted cerumen of both ears May 3:02pm Type 2 diabetes mellitus June 17 3:02pm Proteinuria June 17, 2025 3: 02pm Chief Complaint Admit Date POSSIBLE PNEUMONIA April 27, 2025 10:2 8am Possible UTI May 18, 2025 11:3 8am 2 LAB ORDER[facility] ED [facility] 2024 1:28pm Rt Hip/Leg Pain June 17, 2025 3: 02pm INT LAB ORDERS June 24, 2025 8: 41am Persistent Cough July 28, 2025 10:31am Reason for Visit Admit Date Acute bronchitis April 27, 2025 10:2 8am 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 April 27, 2025 10:28am Erectile dysfunction April 27, 2025 10: 28am Essential hypertension April 27, 2025 1 0:28am Hyperlipemia April 27, 2025 10:2 8am Type 2 diabetes mellitus April 27, 2025 10:28am 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 May 18, 2025 11:38am Concern about urinary tract disease with out diagnosis May 18, 2025 11:38am Erectile dysfunction May 18, 2025 11: 38am Essential hypertension May 18, 2025 1 1:38am Hypogonadism in male May 18, 2025 11: 38am Type 2 diabetes mellitus May 18, 2025 11:38am 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 June 17, 2025 3:02pm Discomfort of right hip June 17 3:02pm Essential hypertension June 17, 2025 3:02pm Impacted cerumen of both ears May 3:02pm Type 2 diabetes mellitus June 17 3:02pm Proteinuria June 17, 2025 3: 02pm 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 July 28, 2025 10:31am Essential hypertension July 28, 025 10:31am Persistent dry cough July 28 10:31am Chief Complaint Admit Date POSSIBLE PNEUMONIA April 27, 2025 10:2 8am Possible UTI May 18, 2025 11:3 8am 2 LAB ORDERING ED [facility] st 2024 1:28pm Rt Hip/Leg Pain June 17, 2025 3: 02pm INT LAB ORDERS June 24, 2025 8: 41am Persistent Cough July 28, 2025 10:31am 9 M FU August 10, 2025 1 :30pm E ORDER August 14, 2025 1 :38pm Leg Discomfort August 24, 2025 1 :36pm Reason for Visit Admit Date Acute bronchitis April 27, 2025 10:2 8am 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 April 27, 2025 10:28am Erectile dysfunction April 27, 2025 10: 28am Essential hypertension April 27, 2025 1 0:28am Hyperlipemia April 27, 2025 10:2 8am Type 2 diabetes mellitus April 27, 2025 10:28am 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 May 18, 2025 11:38am Concern about urinary tract disease with out diagnosis May 18, 2025 11:38am Erectile dysfunction May 18, 2025 11: 38am Essential hypertension May 18, 2025 1 1:38am Hypogonadism in male May 18, 2025 11: 38am Type 2 diabetes mellitus May 18, 2025 11:38am 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 June 17, 2025 3:02pm Discomfort of right hip June 17 3:02pm Essential hypertension June 17, 2025 3:02pm Impacted cerumen of both ears May 3:02pm Type 2 diabetes mellitus June 17 3:02pm Proteinuria June 17, 2025 3: 02pm 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 July 28, 2025 10:31am Essential hypertension July 28 025 10:31am Persistent dry cough July 28 10:31am Chest pain August 10, 2025 1 :30pm Essential hypertension August 10 1:30pm History of coronary artery stent placeme nt August 10, 2025 1:30pm Hyperlipemia August 10, 2025 1 :30pm Type 2 diabetes mellitus August 10 2 025 1:30pm Muscle pain August 24, 2025 1 :36pm Myalgia, lower leg August 24, 2025 1 :36pm Additional Source Comments (unrecognized sect ion and content) No Status Records FoundNo Status Records FoundNo Status Records FoundNo Status Records FoundNo Status Records Found INFORMATION SOURCE (unrecogn ized section and content) DATE CREATED AUTHOR 09/21/2021 [facility] ([place]) DATE CREATED AUTHOR AUTHOR'S ORGANIZ ATION 06/08/2022 [facility] DATE CREATED AUTHOR AUTHOR'S ORGANIZ ATION 10/10/2023 [facility] DATE CREATED AUTHOR AUTHOR'S ORGANIZ ATION 05/18/2025 [facility] DATE CREATED AUTHOR AUTHOR'S ORGANIZ ATION [facility] Goals (unrecognized section and content) Goals may be documented in a n alternate section Care Teams (unrecognized sec tion and content) Team Status: Active Member Role Status Dates Dr. Kasey Ingram MD Family Provider Active Dr. Pietro Turner MD Primary Care Provider Active Team Status: Inactive Member Role Status Dates Dr. Pietro Turner MD Primary Care Provider, Referri ng Provider Active Leslie Holley STORE PROMOTER, STORE PROMOTER-C Attending Provider Active Team Status: Active Member Role Status Dates Dr. Pietro Turner MD Primary Care Provider Active Leslie Holley STORE PROMOTER, STORE PROMOTER-C Referring Provider, Other Provi toño Active Dr. Marck Orellana MD Attending Provider Active Team Status: Inactive Member Role Status Dates Dr. Pietro Turner MD Primary Care Provider, Attendi ng Provider Active Team Status: Inactive Member Role Status Dates Dr. Pietro Turner MD Primary Care Pro vider, Attending Provider, Referring Provider Active Team Status: Inactive Member Role Status Dates Dr. Pietro Turner MD Primary Care Provider Active Leslie Holley STORE PROMOTER, STORE PROMOTER-C Attending Provider, Referring P yovanider Active Team Status: Inactive Member Role Status Dates Dr. Pietro Turner MD Primary Care Provider, Referri ng Provider Active Jocelyne Dickey STORE PROMOTER, STORE PROMOTER-C Attending Provider Active Team Status: Inactive Member Role Status Dates Dr. Pietro Turner MD Primary Care Provider, Referri ng Provider Active Solitario Guy PA, PA Attending Provider Active Team Status: Inactive Member Role Status Dates Dr. Pietro Turner MD Primary Care Provider Active Jocelyne Dickey STORE PROMOTER, STORE PROMOTER-C Attending Provider, Referring Pro vider Active Team Status: Active Member Role Status Dates Dr. Pietro Turner MD Primary Care Provider Active Jocelyne Dickey STORE PROMOTER, STORE PROMOTER-C Attending Provider, Referring Pro vider Active Team Status: Inactive Member Role Status Dates Dr. Pietro Turner MD Primary Care Provider Active Dr. Bridger Han DO Emergency Provider Active Team Status: Inactive Member Role Status Dates Dr. Pietro Turner MD Primary Care Provider Active Start: October 14, 2024 End: October 14, 2024 Dr. Pietro Turner MD Referring Provider Active Start: October 14, 2024 End: October 14, 2024 Dr. Dimitry Camp MD Attending Provider Active Start: October 14, 2024 End: October 14, 2024 Team Status: Inactive Member Role Status Dates Dr. Pietro Turner MD Primary Care Provider Active Start: October 16, 2024 End: October 16, 2024 Dr. Pietro Turner MD Referring Provider Active Start: October 16, 2024 End: October 16, 2024 JAME Fernández Attending Provider Active Sta rt: October 16, 2024 End: October 16, 2024 Team Status: Inactive Member Role Status Dates Dr. Pietro Turner MD Primary Care Provider Active Start: October 27, 2024 End: October 27, 2024 Jocelyne Dickey STORE PROMOTER, STORE PROMOTER-C Attending Provider Active S tart: October 27, 2024 End: October 27, 2024 Jocelyne Dickey STORE PROMOTER, STORE PROMOTER-C Referring Provider Active S tart: October 27, 2024 End: October 27, 2024 Team Status: Active Member Role Status Dates Dr. Pietro Turner MD Primary Care Provider Active Start: October 27, 2024 Dr. Marck Orellana MD Attending Provider Active S tart: October 27, 2024 Team Status: Inactive Member Role Status Dates Dr. Pietro Turner MD Primary Care Provider Active Start: October 30, 2024 End: October 30, 2024 JAME Fernández Attending Provider Active Sta rt: October 30, 2024 End: October 30, 2024 Team Status: Inactive Member Role Status Dates Dr. Pietro Turner MD Primary Care Provider Active Start: November 07, 2024 End: November 07, 2024 Dr. Pietro Turner MD Referring Provider Active Start: November 07, 2024 End: November 07, 2024 Dr. Dimitry Camp MD Attending Provider Active Start: November 07, 2024 End: November 07, 2024 Team Status: Active Member Role Status Dates Dr. Pietro Turner MD Primary Care Provider Active Start: November 07, 2024 Dr. Pietro Turner MD Referring Provider Active Start: November 07, 2024 Dr. Dimitry Camp MD Attending Provider Active Start: November 07, 2024 Dr. Dimitry Camp MD Other Provider Active Start: November 07, 2024 Team Status: Inactive Member Role Status Dates Dr. Pietro Turner MD Primary Care Provider Active Start: November 13, 2024 End: November 13, 2024 Dr. Pietro Turner MD Referring Provider Active Start: November 13, 2024 End: November 13, 2024 JAME Fernández Attending Provider Active Sta rt: November 13, 2024 End: November 13, 2024 Team Status: Inactive Member Role Status Dates Dr. Pietro Turner MD Primary Care Provider Active Start: November 14, 2024 End: November 14, 2024 Dr. Lamberto Desai DO Attending Provider Active Start: November 14, 2024 End: November 14, 2024 Dr. Lamberto Desai DO Emergency Provider Active Start: November 14, 2024 End: November 14, 2024 Team Status: Inactive Member Role Status Dates Dr. Pietro Turner MD Primary Care Provider Active Start: November 25, 2024 End: November 25, 2024 Dr. Pietro Turner MD Referring Provider Active Start: November 25, 2024 End: November 25, 2024 Dr. Marck Orellana MD Attending Provider Active S tart: November 25, 2024 End: November 25, 2024 Team Status: Inactive Member Role Status Dates Dr. Pietro Turner MD Primary Care Provider Active Start: January 01, 2025 End: January 01, 2025 Dr. Pietro Turner MD Attending Provider Active Start: January 01, 2025 End: January 01, 2025 Team Status: Inactive Member Role Status Dates Dr. Pietro Turner MD Primary Care Provider Active Start: February 09, 2025 End: February 09, 2025 Dr. Pietro Turner MD Attending Provider Active Start: February 09, 2025 End: February 09, 2025 Dr. Pietro Turner MD Referring Provider Active Start: February 09, 2025 End: February 09, 2025 Team Status: Active Member Role/Relationship Status Dates Dr. Pietro Turner MD Primary Care Provider Active Team Status: Inactive Member Role/Relationship Status Dates Dr. Pietro Turner MD Primary Care Provider Active Start: January 01, 2025 End: January 01, 2025 Dr. Pietro Turner MD Attending Provider Active Start: January 01, 2025 End: January 01, 2025 Team Status: Inactive Member Role/Relationship Status Dates Dr. Pietro Turner MD Primary Care Provider Active Start: February 09, 2025 End: February 09, 2025 Dr. Pietro Turner MD Attending Provider Active Start: February 09, 2025 End: February 09, 2025 Dr. Pietro Turner MD Referring Provider Active Start: February 09, 2025 End: February 09, 2025 Team Status: Inactive Member Role/Relationship Status Dates Dr. Pietro Turner MD Primary Care Provider Active Start: April 27, 2025 End: April 27, 2025 Dr. Pietro Turner MD Attending Provider Active Start: April 27, 2025 End: April 27, 2025 Team Status: Inactive Member Role/Relationship Status Dates Dr. Pietro Turner MD Primary Care Provider Active Start: February 09, 2025 End: February 09, 2025 Dr. Pietro Turner MD Attending Provider Active Start: February 09, 2025 End: February 09, 2025 Dr. Pietro Turner MD Referring Provider Active Start: February 09, 2025 End: February 09, 2025 Team Status: Inactive Member Role/Relationship Status Dates Dr. Pietro Turner MD Primary Care Provider Active Start: April 27, 2025 End: April 27, 2025 Dr. Pietro Turner MD Attending Provider Active Start: April 27, 2025 End: April 27, 2025 Team Status: Inactive Member Role/Relationship Status Dates Dr. Pietro Turner MD Primary Care Provider Active Start: May 18, 2025 End: May 18, 2025 Dr. Pietro Turner MD Attending Provider Active Start: May 18, 2025 End: May 18, 2025 Team Status: Inactive Member Role/Relationship Status Dates Dr. Pietro Turner MD Primary Care Provider Active Start: May 18, 2025 End: May 18, 2025 Dr. Pietro Turner MD Attending Provider Active Start: May 18, 2025 End: May 18, 2025 Dr. Pietro Turner MD Referring Provider Active Start: May 18, 2025 End: May 18, 2025 Team Status: Inactive Member Role/Relationship Status Dates Dr. Pietro Turner MD Primary Care Provider Active Start: April 27, 2025 End: April 27, 2025 Dr. Pietro Turner MD Attending Provider Active Start: April 27, 2025 End: April 27, 2025 Team Status: Inactive Member Role/Relationship Status Dates Dr. Pietro Turner MD Primary Care Provider Active Start: May 18, 2025 End: May 18, 2025 Dr. Pietro Turner MD Attending Provider Active Start: May 18, 2025 End: May 18, 2025 Team Status: Inactive Member Role/Relationship Status Dates Dr. Pietro Turner MD Primary Care Provider Active Start: May 18, 2025 End: May 18, 2025 Dr. Pietro Turner MD Attending Provider Active Start: May 18, 2025 End: May 18, 2025 Dr. Pietro Turner MD Referring Provider Active Start: May 18, 2025 End: May 18, 2025 Team Status: Active Member Role/Relationship Status Dates Dr. Pietro Turner MD Primary Care Provider Active Start: June 15, 2025 Dr. Pietro Turner MD Attending Provider Active Start: June 15, 2025 Jocelyne Dickey STORE PROMOTER, STORE PROMOTER-C Referring Provider Active S tart: June 15, 2025 Team Status: Inactive Member Role/Relationship Status Dates Dr. Pietro Turner MD Primary Care Provider Active Start: June 17, 2025 End: June 17, 2025 Dr. Pietro Turner MD Attending Provider Active Start: June 17, 2025 End: June 17, 2025 Team Status: Inactive Member Role/Relationship Status Dates Dr. Pietro Turner MD Primary Care Provider Active Start: June 15, 2025 End: June 15, 2025 Dr. Pietro Turner MD Attending Provider Active Start: June 15, 2025 End: June 15, 2025 Jocelyne Dickey STORE PROMOTER, STORE PROMOTER-C Referring Provider Active S tart: June 15, 2025 End: June 15, 2025 Team Status: Active Member Role/Relationship Status Dates Dr. Pietro Turner MD Primary Care Provider Active Start: June 24, 2025 Dr. Pietro Turner MD Attending Provider Active Start: June 24, 2025 Dr. Pietro Turner MD Referring Provider Active Start: June 24, 2025 Team Status: Inactive Member Role/Relationship Status Dates Dr. Pietro Turner MD Primary Care Provider Active Start: June 24, 2025 End: June 24, 2025 Dr. Pietro Turner MD Attending Provider Active Start: June 24, 2025 End: June 24, 2025 Dr. iPetro Turner MD Referring Provider Active Start: June 24, 2025 End: June 24, 2025 Team Status: Active Member Role/Relationship Status Dates Dr. Pietro Turner MD Primary care physician Active Team Status: Inactive Member Role/Relationship Status Dates Dr. Pietro Turner MD Primary care physician Active Start: April 27, 2025 End: April 27, 2025 Dr. Pietro Turner MD Attending physician Active Start: April 27, 2025 End: April 27, 2025 Team Status: Inactive Member Role/Relationship Status Dates Dr. Pietro Turner MD Primary care physician Active Start: May 18, 2025 End: May 18, 2025 Dr. Pietro Turner MD Attending physician Active Start: May 18, 2025 End: May 18, 2025 Team Status: Inactive Member Role/Relationship Status Dates Dr. Pietro Turner MD Primary care physician Active Start: May 18, 2025 End: May 18, 2025 Dr. Pietro Turner MD Attending physician Active Start: May 18, 2025 End: May 18, 2025 Dr. Pietro Turner MD Referring Provider Active Start: May 18, 2025 End: May 18, 2025 Team Status: Inactive Member Role/Relationship Status Dates Dr. Pietro Turner MD Primary care physician Active Start: June 15, 2025 End: June 15, 2025 Dr. Pietro Turner MD Attending physician Active Start: June 15, 2025 End: June 15, 2025 Jocelyne Dickey STORE PROMOTER, STORE PROMOTER-C Referring Provider Active S tart: June 15, 2025 End: June 15, 2025 Team Status: Inactive Member Role/Relationship Status Dates Dr. Pietro Turner MD Primary care physician Active Start: June 17, 2025 End: June 17, 2025 Dr. Pietro Turner MD Attending physician Active Start: June 17, 2025 End: June 17, 2025 Team Status: Inactive Member Role/Relationship Status Dates Dr. Pietro Turner MD Primary care physician Active Start: June 24, 2025 End: June 24, 2025 Dr. Pietro Turner MD Attending physician Active Start: June 24, 2025 End: June 24, 2025 Dr. Pietro Turner MD Referring Provider Active Start: June 24, 2025 End: June 24, 2025 Team Status: Inactive Member Role/Relationship Status Dates Dr. Pietro Turner MD Primary care physician Active Start: July 28, 2025 End: July 28, 2025 Dr. Pietro Turner MD Attending physician Active Start: July 28, 2025 End: July 28, 2025 Team Status: Inactive Member Role/Relationship Status Dates Dr. Pietro Turner MD Primary care physician Active Start: August 10, 2025 End: August 10, 2025 Dr. Pietro Turner MD Referring Provider Active Start: August 10, 2025 End: August 10, 2025 Jocelyne Dickey NP, STORE PROMOTER-C Attending physician Active Start: August 10, 2025 End: August 10, 2025 Team Status: Inactive Member Role/Relationship Status Dates Dr. Pietro Turner MD Primary care physician Active Start: August 14, 2025 End: August 14, 2025 Dr. Pietro Turner MD Attending physician Active Start: August 14, 2025 End: August 14, 2025 Dr. Pietro Turner MD Referring Provider Active Start: August 14, 2025 End: August 14, 2025 Team Status: Inactive Member Role/Relationship Status Dates Dr. Pietro Turner MD Primary care physician Active Start: August 24, 2025 End: August 24, 2025 Dr. Pietro Turnre MD Attending physician Active Start: August 24, 2025 End: August 24, 2025 FOR RECORDS PERTAINING TO PATIENTS WHO ARE [...] BE BASED ON THE PRIMARY CLINICAL RECORDS. [employer] [facility]. provides no warranty or guarantee of the accuracy or completeness of information in this document.
== END | disposition home or self-care (01) ==
LOC: LAB 16:32
PROVIDERS: PCP Internal Medicine; Referring Provider Internal Medicine; Visit Provider Internal Medicine
DX: R19.7 Diarrhea, unspecified (principal); E11.9 Type 2 diabetes mellitus without complications; I10 Essential (primary) hypertension
CPT/HCPCS: 36415; 80053; 82150; 83036; 83690; 83735; 85025

== ENCOUNTER 2025-10-14 18:30 | Observation (INO) | payer MEDICARE, SELFPAY ==
[2025-10-14] VITALS (8 sets, daily range): BP systolic 133–165; BP diastolic 81–97; PULSE 71–80; RESP 14–18; TEMP 35.7–36.7; O2SAT 96–100; BMI 34.3; BMI 34.2
--- NOTE | 2025-10-14 18:38 | EKG12_ITS ---
Test Reason : REPEAT Blood Pressure : */* mmHG Vent. Rate : 77 BPM Atrial Rate : 77 BPM P-R Int : 184 ms QRS Dur : 96 ms QT Int : 372 ms P-R-T Axes : 44 55 54 degrees QTcB Int : 420 ms Normal sinus rhythm Normal ECG Confirmed by Hadley Godinez ([id number]), story editor CLAUDIO SHOEMAKER ([id number]) on 10/16/2025 10:28:21 AM Referred By: Confirmed By: Hadley Godinez
--- NOTE | 2025-10-14 18:52 | RAD_ITS ---
PROCEDURE: CHEST 1 VIEW (PORTABLE) 10/14/2025 REASON FOR EXAM: CHEST PAIN TECHNIQUE: Frontal view of the chest. COMPARISON: 11/14/2024. FINDINGS: The heart is normal in size. The lungs are clear. No acute osseous abnormalities. RAD/Chest 1 View (Portable) IMPRESSION: No Acute Findings. [facility]
[2025-10-14 19:07] LABS: Hematocrit 37.8 % (40-54); Hemoglobin 13.4 g/dL (13.0-16.5); Immature Granulocytes Count 0.030 X10^3/uL (0.0-0.0); Mean Corp Hgb Conc 35.4 g/dL (32-36); Mean Corpuscular Volume 85.5 fL (80-94); Mean Platelet Vol. 8.9 fl (6.2-12.0); NRBC Flagged by Analyzer 0 % (0-5); Platelet Count 215 K/mm3 (150-450); RBC Distribution Width CV 13.1 % (11.6-14.6); RBC Distribution Width SD 40.1 fl (35.1-43.9); Red Blood Count 4.42 M/mm3 (4.6-6.2); White Blood Count 6.6 K/mm3 (4.4-11.0)
[2025-10-14 19:30] LABS: Anion Gap 12 (5-15); BUN 24 mg/dL (4-19); BUN/Creat Ratio 20.5 RATIO (10-20); Calcium,Total 9.8 mg/dL (7.6-11.0); Carbon Dioxide 25.6 mmol/L (21.0-32.0); Chloride 99 mmol/L (98-108); Estimated Creatinine Clearance 85.54 ml/min (50-250); Glucose 213 mg/dL (70-99); Potassium 3.6 mmol/L (3.3-5.1); Troponin T High Sensitivity 7 ng/L (<=22)
[2025-10-14 20:14] LABS: Pro- Brain NATRIURETIC PEPTIDE 53 pg/mL (<=900)
[2025-10-14 21:08] LABS: Troponin T High Sens 2 HR 7 ng/L (<=22)
--- NOTE | 2025-10-14 22:43 | ED.VIS.CHEST ---
HPI History of Present Illness Chief Complaint: Chest Pain Narrative Narrative: Patient was seen and examined after presenting to ED for chest pain pressure states that it is also bothersome with exertion he will get short of breath he states that this feels exactly like when he had an MT requiring stents follows with cardiology here. States that he has been using a treadmill lately in the last few times he has done it he has had to take nitro for the chest pain he was developing well on the treadmill. [facility] Medical History Diarrhea Muscle pain Persistent dry cough Discomfort of right hip Concern about urinary tract disease without diagnosis UTI (urinary tract infection) Acute bronchitis Erectile dysfunction Alcohol use Bruising High cholesterol Gastric reflux History of Holter monitoring History of echocardiogram Nausea & vomiting Colon cancer screening Wears hearing aid Wears glasses Schizophrenia Anxiety Diabetes Low iron Fatty liver Restless legs Back pain Tic disorder History of diverticulitis Former smoker History of stress test Cardiology follow-up encounter Hypertension Cholelithiasis History of sarcoidosis Depression Pancreatitis Secondary pulmonary arterial hypertension Atherosclerotic heart disease of [place] coronary artery with other forms of angina pectoris History of non-ST elevation myocardial infarction (NSTEMI) (07/26/20) Essential hypertension Type 2 diabetes mellitus Nausea Fatigue Urinary hesitancy Liver disease Hypoglycemia Hyperlipemia Gout GERD (gastroesophageal reflux disease) Anxiety and depression Bone fracture Anemia History of alcohol abuse Schizoaffective disorder Home Medications ?Medication ?Instructions ?Recorded ?Last Taken ?Type needle (disp) 18 G 18 gauge x 1 #100 ea 05/22/22 Unknown Rx (BD Regular Bevel [place]) flash glucose scanning reader #1 ea 02/05/24 Unknown Rx (FreeStyle Jean 2 [place]) cholecalciferol (vitamin D3) 125 2,000 unit PO DAILY 05/05/24 10/14/25 History mcg (5,000 unit) tablet (Vitamin D3) syringe with needle, safety 3 mL #50 ea 05/13/24 Unknown Rx 25 gauge x 1 aspirin 81 mg tablet,delayed 81 mg PO 1400 05/23/24 10/14/25 History release magnesium glycinate 100 mg (as 100 mg PO QHS 09/05/24 10/13/25 History glycinate) tablet (Mag Glycinate) omeprazole 20 mg capsule,delayed 20 mg PO BID #180 caps 11/13/24 10/14/25 Rx release flash glucose sensor (FreeStyle #1 ea 03/13/25 Unknown Rx Jean 2 Sensor kit) isosorbide mononitrate 60 mg 60 mg PO BID #180 tabs 03/13/25 10/14/25 Rx tablet,extended release 24 hr nitroglycerin 0.4 mg sublingual 0.4 mg sublingual Q5-15M PRN chest 03/13/25 Unknown Rx tablet (Nitrostat) pain #25 tabs testosterone cypionate 200 mg/mL 150 mg (0.75 mL) IM Q2W #5 mL 08/12/25 09/29/25 Rx intramuscular oil trifluoperazine 1 mg tablet 1 mg PO DAILY Nerves 08/24/25 10/14/25 History mirtazapine 15 mg tablet 15 mg PO QHS 09/30/25 10/13/25 History semaglutide 1 mg/dose (4 mg/3 mL) 1 mg subcut QWEEK 09/30/25 10/07/25 History subcutaneous pen injector (Ozempic) irbesartan 150 mg tablet 150 mg PO DAILY #60 tabs 10/02/25 10/14/25 Rx carvedilol 25 mg tablet 25 mg PO BID 90 days #180 tabs 10/07/25 10/14/25 Rx hydrochlorothiazide 25 mg tablet 25 mg PO DAILY #90 tabs 10/08/25 10/14/25 Rx guanfacine 1 mg tablet,extended 1 mg PO DAILY 10/14/25 10/14/25 History release 24 hr metformin 500 mg tablet,extended 500 mg PO BID 10/14/25 10/14/25 History release 24 hr Allergy/AdvReac Type Severity Reaction Status Date / Time Penicillins (PCN) Allergy Other Verified 10/14/25 18:34 [id number] Reductase AdvReac Intermediate myalgias Verified 10/14/25 18:34 Inhibitor lisinopril AdvReac cough Verified 10/14/25 18:34 spironolactone AdvReac elevated Verified 10/14/25 18:34 blood sugar Family History Other CVA (cerebral vascular accident) Cancer Depression with anxiety Diabetes FH: mental illness Hyperlipemia Hypertension Osteoporosis Surgical History History of cardiac catheterization History of cholecystectomy Hx of colonoscopy History of left heart catheterization (11/02/21) History of coronary artery stent placement (07/26/20) History of cataract surgery History of placement of ear tubes History of tonsillectomy History of amputation of finger Social History Smoking Status: Former smoker quit date: 10/29/05 Tobacco: How many years used: 15 alcohol intake: former year quit: 2014 substance use type: does not use caffeine: Yes Type: carbonated beverages and coffee what type of physical activity do you participate in: walking ROS ROS ED ROS Narrative Pertinent Positives: Chest pain worse with exertion with associated shortness of breath involving pressure as well Pertinent Negatives: Fevers chills increased lower extremity edema or calf tenderness history of DVT or PE use of anticoagulation The remainder of review of systems negative unless otherwise stated in the HPI above. Systems reviewed including constitutional, psychiatric, cardiovascular, respiratory, integument, HENT, gastrointestinal. EXAM Physical Exam Narrative Exam Narrative: Afebrile hemodynamically stable does not appear toxic or in distress he is normocephalic and atraumatic normal heart lung sounds abdomen is soft nontender nondistended no palpable pulsatile mass. He has intact and equal MSPs in all of his extremities. No lower extremity calf tenderness Const Vital Signs: 10/14/25 18:31 10/14/25 18:51 10/14/25 18:51 Temperature 96.2 F L Temperature Source Temporal Pulse Rate 76 Respiratory Rate 18 Respiratory Effort Normal Blood Pressure 165/97 H Blood Pressure Mean 119 Pulse Ox 100 Oxygen Delivery Method Room Air Room Air 10/14/25 19:30 10/14/25 20:00 10/14/25 21:00 Temperature Temperature Source Pulse Rate 77 73 Respiratory Rate 18 Respiratory Effort Blood Pressure 138/91 H 133/81 H Blood Pressure Mean 106 98 Pulse Ox 96 96 Oxygen Delivery Method Room Air 10/14/25 22:00 10/14/25 22:33 Temperature 97.6 F L Temperature Source Pulse Rate 79 80 Respiratory Rate 18 Respiratory Effort Blood Pressure 136/86 H Blood Pressure Mean 102 Pulse Ox 97 98 Oxygen Delivery Method Room Air Heart Score History: Highly Suspicious ECG: Nonspecific Repolarization Age: >/= 65 years Risk Factors: >/= 3 Risk Factors or History of CAD Troponin: </= Normal Limit Score: 7 MDM MDM MDM Narrative Medical decision making narrative: Nursing notes, triage notes, available previous documentation, and vital signs were reviewed. Any discrepancies noted were addressed. Differential Diagnoses: Need to consider ACS lower suspicion for aortic etiology or PE or infectious related causes or myocarditis or pericarditis Interventions: Aspirin Labs Reviewed: No leukocytosis leukopenia anemia electrolyte abnormality renal insufficiency troponin was 7 with delta troponin also being 7 proBNP was 53 4-hour troponin will be ordered as well based off discussion with cardiology Imaging Reviewed: Personally reviewed and interpreted by me: Chest x-ray no pneumonia pneumothoraces or significant edema EKG: Did almost appear that there was a biphasic T wave in V2 but on repeat EKG that was not present and it was only isolated to V2. EKG interpretation is noted and agreed to in the EMR. The interpretation of this patient's EKG contributed directly to the care and management of this patient. Previous Documentation Reviewed: None available or applicable at this time. ED Course: Patient presenting with symptoms as stated above to me it sounds like this patient is failing his own stress test labs are otherwise unremarkable however I spoke with briquette maker Dr. Godinez who agrees that this patient should be admitted for stress if not a heart cath itself given that he was ambulating on a treadmill even and was having active chest pain requiring nitro on a few occasions so I did discuss with the hospitalist Dr Kang who is agreeable to admission. This note was made utilizing voice recognition software. All attempts were made to correct spelling or other errors prior to note completion. However, due to the fast-paced nature of emergency medicine, some errors may still be present. Lab Data Labs: Laboratory Results - last 24 hr 10/14/25 10/14/25 18:48 20:33 WBC 6.6 RBC 4.42 L Hgb 13.4 Hct 37.8 L MCV 85.5 MCH 30.3 MCHC 35.4 RDW Std Deviation 40.1 RDW Coeff of [place]ta 13.1 Plt Count 215 MPV 8.9 Immature Gran % (Auto) 0.500 Neut % (Auto) 68.9 Lymph % (Auto) 19.3 [place] % (Auto) 6.6 Eos % (Auto) 4.1 Baso % (Auto) 0.6 Absolute Neuts (auto) 4.6 Absolute Lymphs (auto) 1.28 Nucleated RBC % 0 Sodium 137 Potassium 3.6 Chloride 99 Carbon Dioxide 25.6 Anion Gap 12 BUN 24 H Creatinine 1.19 Estim Creat Clear Calc 85.54 Est GFR (MDRD) Non-Af 69 BUN/Creatinine Ratio 20.5 H Glucose 213 H Calcium 9.8 Troponin T High Sens 7 Troponin T Hi Sens 2 Hr 7 NT pro BNP II 53 Radiography Diagnostic Testing: Clinical Impression(s) from Imaging Studies Chest X-Ray 10/14/25 18:52 IMPRESSION: No Acute Findings. Reading [facility] Discharge Plan Triage Chief Complaint: Chest Pain ED Provider: Michael Mcneil Dx/Rx/DC Orders Clinical Impression: Unstable angina, Dyspnea, History of coronary artery disease Prescriptions: No Action cholecalciferol (vitamin D3) [Vitamin D3] 125 mcg (5,000 unit) tablet 2,000 unit PO DAILY trifluoperazine 1 mg tablet 1 mg PO DAILY mirtazapine 15 mg tablet 15 mg PO QHS Ozempic 1 mg/dose (4 mg/3 mL) pen injector 1 mg subcut QWEEK aspirin 81 mg tablet,delayed release (DR/EC) 81 mg PO 1400 Mag Glycinate 100 mg tablet 100 mg PO QHS guanfacine 1 mg tablet extended release 24 hr 1 mg PO DAILY metformin 500 mg tablet extended release 24 hr 500 mg PO BID (DME) needle (disp) 18 G [BD Regular Bevel [place]] 18 gauge x 1 needle See Rx Instructions .Route Qty: 100 0RF Rx Instructions: As directed (DME) FreeStyle Jean 2 [place] [facility] See Rx Instructions .Route Qty: 1 1RF Rx Instructions: As directed (DME) syringe with needle, safety 3 mL 25 gauge x 1 syringe See Rx Instructions .Route Qty: 50 0RF Rx Instructions: As directed omeprazole 20 mg capsule,delayed release(DR/EC) 20 mg PO BID Qty: 180 3RF nitroglycerin [Nitrostat] 0.4 mg tablet, sublingual 0.4 mg sublingual Q5-15M PRN (Reason: chest pain) Qty: 25 3RF Rx Instructions: do not exceed 3 doses per episode isosorbide mononitrate 60 mg tablet extended release 24 hr 60 mg PO BID Qty: 180 3RF (DME) FreeStyle Jean 2 Sensor Kit See Rx Instructions .Route Qty: 1 11RF Rx Instructions: As directed testosterone cypionate 200 mg/mL oil 150 mg IM Q2W Qty: 5 5RF Rx Instructions: PLEASE dispense as five 1ml vials irbesartan 150 mg tablet 150 mg PO DAILY Qty: 60 1RF carvedilol 25 mg tablet 25 mg PO BID 90 Days Qty: 180 3RF hydrochlorothiazide 25 mg tablet 25 mg PO DAILY Qty: 90 3RF Primary Care Provider: Caryl Turner Referrals: Caryl Turner MD [Primary Care Provider, Internal Medicine - [facility]] Print Language: Moroccan
[2025-10-14 22:46] LABS: Troponin T High Sens 4 HR 8 ng/L (<=22)
--- NOTE | 2025-10-14 23:00 | PCM.HP.STD ---
HPI - General General Date of Admission: 10/14/25 HPI Narrative ALIX LEE, is a 65 M who presents to the hospital with chest pain has been going on for about a week and a half. He had chest pain back in 2019 that led to a stent in the LAD, and then he had repeat episodes of chest pain in 2021 where he had a cardiac catheterization that demonstrated progression of some mild stenosis to about 50% though he did not need intervention at that time. Now is coming in with a week and a half of chest pain specifically with exertion on the treadmill that resolves with rest. And then today he had to take 3 nitro as he had chest pain on the way to an art class and then he had recurrent chest pain on the way home while driving. 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 In the ER EKG is nonischemic with 3 normal troponins and resolution of his chest pain. Cardiology was consulted in the ER. [facility] Medical History Diarrhea Muscle pain Persistent dry cough Discomfort of right hip Concern about urinary tract disease without diagnosis UTI (urinary tract infection) Acute bronchitis Erectile dysfunction Alcohol use Bruising High cholesterol Gastric reflux History of Holter monitoring History of echocardiogram Nausea & vomiting Colon cancer screening Wears hearing aid Wears glasses Schizophrenia Anxiety Diabetes Low iron Fatty liver Restless legs Back pain Tic disorder History of diverticulitis Former smoker History of stress test Cardiology follow-up encounter Hypertension Cholelithiasis History of sarcoidosis Depression Pancreatitis Secondary pulmonary arterial hypertension Atherosclerotic heart disease of [place] coronary artery with other forms of angina pectoris History of non-ST elevation myocardial infarction (NSTEMI) (07/26/20) Essential hypertension Type 2 diabetes mellitus Nausea Fatigue Urinary hesitancy Liver disease Hypoglycemia Hyperlipemia Gout GERD (gastroesophageal reflux disease) Anxiety and depression Bone fracture Anemia History of alcohol abuse Schizoaffective disorder Home Medications ?Medication ?Instructions ?Recorded ?Last Taken ?Type needle (disp) 18 G 18 gauge x 1 #100 ea 05/22/22 Unknown Rx (BD Regular Bevel [place]) flash glucose scanning reader #1 ea 02/05/24 Unknown Rx (FreeStyle Jean 2 [place]) cholecalciferol (vitamin D3) 125 2,000 unit PO DAILY 05/05/24 10/14/25 History mcg (5,000 unit) tablet (Vitamin D3) syringe with needle, safety 3 mL #50 ea 05/13/24 Unknown Rx 25 gauge x 1 aspirin 81 mg tablet,delayed 81 mg PO 1400 05/23/24 10/14/25 History release magnesium glycinate 100 mg (as 100 mg PO QHS 09/05/24 10/13/25 History glycinate) tablet (Mag Glycinate) omeprazole 20 mg capsule,delayed 20 mg PO BID #180 caps 11/13/24 10/14/25 Rx release flash glucose sensor (FreeStyle #1 ea 03/13/25 Unknown Rx Jean 2 Sensor kit) isosorbide mononitrate 60 mg 60 mg PO BID #180 tabs 03/13/25 10/14/25 Rx tablet,extended release 24 hr nitroglycerin 0.4 mg sublingual 0.4 mg sublingual Q5-15M PRN chest 03/13/25 Unknown Rx tablet (Nitrostat) pain #25 tabs testosterone cypionate 200 mg/mL 150 mg (0.75 mL) IM Q2W #5 mL 08/12/25 09/29/25 Rx intramuscular oil trifluoperazine 1 mg tablet 1 mg PO DAILY Nerves 08/24/25 10/14/25 History mirtazapine 15 mg tablet 15 mg PO QHS 09/30/25 10/13/25 History semaglutide 1 mg/dose (4 mg/3 mL) 1 mg subcut QWEEK 09/30/25 10/07/25 History subcutaneous pen injector (Ozempic) irbesartan 150 mg tablet 150 mg PO DAILY #60 tabs 10/02/25 10/14/25 Rx carvedilol 25 mg tablet 25 mg PO BID 90 days #180 tabs 10/07/25 10/14/25 Rx hydrochlorothiazide 25 mg tablet 25 mg PO DAILY #90 tabs 10/08/25 10/14/25 Rx guanfacine 1 mg tablet,extended 1 mg PO DAILY 10/14/25 10/14/25 History release 24 hr metformin 500 mg tablet,extended 500 mg PO BID 10/14/25 10/14/25 History release 24 hr Allergy/AdvReac Type Severity Reaction Status Date / Time Penicillins (PCN) Allergy Other Verified 10/14/25 18:34 [id number] Reductase AdvReac Intermediate myalgias Verified 10/14/25 18:34 Inhibitor lisinopril AdvReac cough Verified 10/14/25 18:34 spironolactone AdvReac elevated Verified 10/14/25 18:34 blood sugar Family History Other CVA (cerebral vascular accident) Cancer Depression with anxiety Diabetes FH: mental illness Hyperlipemia Hypertension Osteoporosis Surgical History History of cardiac catheterization History of cholecystectomy Hx of colonoscopy History of left heart catheterization (11/02/21) History of coronary artery stent placement (07/26/20) History of cataract surgery History of placement of ear tubes History of tonsillectomy History of amputation of finger Social History Smoking Status: Former smoker quit date: 10/29/05 Tobacco: How many years used: 15 alcohol intake: former year quit: 2014 substance use type: does not use caffeine: Yes Type: carbonated beverages and coffee what type of physical activity do you participate in: walking ROS Constitutional Constitutional: Denies chills, fatigue, fever(s) or malaise Eyes Eyes: Denies blurry vision ENT HEENT: Denies headache(s) or nasal discharge Cardiovascular Cardiovascular: Reports chest pain; Denies dyspnea on exertion or syncope Respiratory/Chest Respiratory/Chest: Denies cough, shortness of breath at rest or shortness of breath with exertion Gastrointestinal Gastrointestinal: Denies constipation, diarrhea, nausea or vomiting Genitourinary Genitourinary: Denies dysuria Neurologic Neurologic: Denies focal weakness, numbness or tremor(s) Psychiatric Psychiatric: Denies anxiety or depression Patient's Goals Of Care . Unable to discuss care goals with the patient and or patient installation service representative at this time: Yes Vital Signs Vital Signs Vital Signs: 10/14/25 18:31 10/14/25 18:51 10/14/25 18:51 Temperature 96.2 F L Temperature Source Temporal Pulse Rate 76 Respiratory Rate 18 Respiratory Effort Normal Blood Pressure 165/97 H Blood Pressure Mean 119 Pulse Ox 100 Oxygen Delivery Method Room Air Room Air 10/14/25 19:30 10/14/25 20:00 10/14/25 21:00 Temperature Temperature Source Pulse Rate 77 73 Respiratory Rate 18 Respiratory Effort Blood Pressure 138/91 H 133/81 H Blood Pressure Mean 106 98 Pulse Ox 96 96 Oxygen Delivery Method Room Air 10/14/25 22:00 10/14/25 22:33 Temperature 97.6 F L Temperature Source Pulse Rate 79 80 Respiratory Rate 18 Respiratory Effort Blood Pressure 136/86 H Blood Pressure Mean 102 Pulse Ox 97 98 Oxygen Delivery Method Room Air Weight Weight: 260 lb 6.4 oz Body Mass Index (BMI) 34.3 Physical Exam Narrative General: Alert, Oriented x3, Cooperative, No apparent distress HEENT: Atraumatic, PERRLA, EOMI, Normocephalic Oral: Moist Mucosa Neck: Supple, No JVD Lungs: Diminished, Normal air movement, No rhonchi, No wheeze, No rales Cardiovascular: Regular rate, Regular Rhythm, Normal S1, Normal S2, No murmurs Abdomen: Soft, Non Tender, Non-Distended, No Hepato-splenomegaly Extremities: No edema, Capillary Refill Less than 3 Seconds Skin: No rashes, No breakdown Musculoskeletal: No Tenderness to Palpation of Joints or Extremities Neurological: No focal neurological deficits, moves all extremities Psych/Mental Status: Normal Affect, Appropriate Results Lab / Micro Data 10/14/25 18:48 10/14/25 18:48 Labs: Laboratory Results - last 24 hr 10/14/25 18:48: WBC 6.6, RBC 4.42 L, Hgb 13.4, Hct 37.8 L, MCV 85.5, MCH 30.3, MCHC 35.4, RDW Std Deviation 40.1, RDW Coeff of [place] 13.1, Plt Count 215, MPV 8.9, Immature Gran % (Auto) 0.500, Neut % (Auto) 68.9, Lymph % (Auto) 19.3, [place] % (Auto) 6.6, Eos % (Auto) 4.1, Baso % (Auto) 0.6, Absolute Neuts (auto) 4.6, Absolute Lymphs (auto) 1.28, Nucleated RBC % 0, Sodium 137, Potassium 3.6, Chloride 99, Carbon Dioxide 25.6, Anion Gap 12, BUN 24 H, Creatinine 1.19, Estim Creat Clear Calc 85.54, Est GFR (MDRD) Non-Af 69, BUN/Creatinine Ratio 20.5 H, Glucose 213 H, Calcium 9.8, Troponin T High Sens 7, NT pro BNP II 53 10/14/25 20:33: Troponin T Hi Sens 2 Hr 7 10/14/25 22:23: Troponin T Hi Sens 4Hr 8 Imaging Radiology Impression Chest X-Ray 10/14/25 18:52 IMPRESSION: No Acute Findings. Reading [facility] Assessment & Plan Assessment/Plan (1) Chest pain: PLAN: Plan 1. Chest pain/CAD status post stent/essential HTN/HLD with an intolerance to statins ? Continue with aspirin ? Will consult cardiology ? EKG and troponins are normal ? He has a previous stent placed in his LAD at an outside hospital with repeat cardiac catheterization in 2021 with no significant disease burden ? Continue with his home blood pressure medications ? Will monitor and make adjustments as necessary 2. DM2 ? Hold home medications ? Accu-Cheks ? Insulin ? Will monitor make adjustments as necessary 3. GERD ? Stable ? Continue PPI 4. Schizoaffective disorder ? Stable ? Continue with his home medications DVT: SCDs Charges/Coding Visit Charges Inpatient E&M: 97352 Init Hosp L2
--- OUTSIDE RECORDS SUMMARY | 2025-10-14 23:08 | XMS RPT_ITS | CCD ---
Author Organization [facility] Care Team Providers Care Second Vp Hr Assessment Name Role Phone PIETRO TURNER MD Primary Care Physician Giovanni PT, Betty Unavailable Unavailable Dr. Pietro Turner Primary Care Provider Dr. Pietro Turner Referring Provider [phone] BREAUX, NURSING STAFFING COORDINATOR-C Rosalva Attending Provider Dr. Pietro Turner Attending [...] Provider Dr. Pietro Turner Referring Provider [phone] Kishan BREAUX, NURSING STAFFING COORDINATOR-C Leslie Attending Provider Kishan BREAUX, NURSING STAFFING COORDINATOR-C Leslie Referring Provider Kishan BREAUX, NURSING STAFFING COORDINATOR-C Leslie Other Provider [phone] Dr. Marck Orellana Attending Provider Dr. Pietro Turner Attending Provider [phone] Dr. Pietro Turner Primary Care Provider Dr. Pietro Turner Referring Provider Holley NURSING STAFFING COORDINATOR, NURSING STAFFING COORDINATOR-C Leslie Attending Provider Dr. Pietro Turner Primary Care Provider Dr. Pietro Turner Attending Provider Dr. Pietro Turner Referring Provider Brooks KILGORE PA Solitario Attending Provider Roof NURSING STAFFING COORDINATOR, NURSING STAFFING COORDINATOR-C Jocelyne Tijerina Attending Provider KASEY INGRAM Primary Care Unavail Dr. Pietro Padron Primary Care Provider Dr. Pietro Turner Referring Provider Noble NURSING STAFFING COORDINATOR, NURSING STAFFING COORDINATOR-C Jocelyne Tijerina Attending Provider Dr. Pietro Turner Attending Provider Dr. Pietro Turner Primary Care Provider Dr. Pietro Turner MD Primary Care Provider Dr. Pietro Turner MD Referring Provider Dr. Dimitry Camp MD Attending Provider [phone] Solitario Padilla Attending Provider Roof NURSING STAFFING COORDINATOR-C, Jocelyne H Attending Provider Roof NURSING STAFFING COORDINATOR-C, Jocelyne Tijerina Referring Provider Esteban OMALLEY, Dr. Acharya Attending Provider Zoë OMALLEY, Dr. Moraes Other Provider Dr. Lamberto Desai DO Attending Provider Dr. Lamberto Desai DO Emergency Provider Dr. Pietro Turner MD Attending Provider Dr. Pietro Turner MD Primary Care Provider Johnny OMALLEY, Dr. Hutson Referring Provider Solitario Padilla Attending Provider Roof NURSING STAFFING COORDINATOR-C, Jocelyne H Attending Provider Roof NURSING STAFFING COORDINATOR-C, Jocelyne H Referring Provider Esteban OMALLEY, Dr. Acharya Attending Provider [phone] Zoë OMALLEY, Dr. Moraes Attending Provider Zoë OMALLEY, Dr. Moraes Other Provider Lloyd [...] Johnny OMALLEY, Dr. Hutson Referring Provider Roof NURSING STAFFING COORDINATOR-C, Jocelyne H Referring Provider Johnny OMALLEY, Dr. Hutson Primary Care Physician Johnny OMALLEY, Dr. Hutson Attending Physician Johnny OMALLEY, Dr. Hutson Primary Care Physician [phone] Johnny OMALLEY, Dr. Hutson Attending Physician Johnny OMALLEY, Dr. Hutson Referring Provider Roof NURSING STAFFING COORDINATOR-C, Jocelyne H Referring Provider Roof NURSING STAFFING COORDINATOR-C, Jocelyne H Attending Physician [phone] Solitario Padilla Attending Unavailable Johnny, Pietro Referring Unavailable Johnny, Pietro Primary Care Unavailable Johnny, Pietro Attending Unavailable Johnny, Pietro Primary Care Unavailable Johnny, Pietro Referring Unavailable CalabrettaJuan CarlosDimitry Attending Unavailable Johnny, Pietro Primary Care Unavailable DesaiLamberto Attending Unavailable Johnyn, Pietro Primary Care Unavailable Roof NURSING STAFFING COORDINATOR, Jocelyne H Attending Unavailable Roof NURSING STAFFING COORDINATOR, Jocelyne H Referring Unavailable Johnny, Pietro Primary [...] Care Unavailable Johnny, Pietro Attending Unavailable Roof NURSING STAFFING COORDINATOR, Jocelyne H Referring Unavailable Johnny, Pietro Referring Unavailable Johnny, Pietro Attending Unavailable Johnny, Pietro Primary Care Unavailable Johnny, Pietro Referring Unavailable Johnny, Pietro Attending Unavailable Johnny, Pietro Primary Care Unavailable Solitario Padilla Attending Unavailable Johnny, Pietro Referring Unavailable Johnny, Pietro Primary Care Unavailable Esteban, Butler Attending Unavailable Johnny, Pietro Primary Care Unavailable Johnny, Pietro Referring Unavailable Esteban, Butler Attending Unavailable Johnny, Pietro Primary Care Unavailable Johnny, Pietro Primary Care Unavailable Johnny, Pietro Referring Unavailable Roof NURSING STAFFING COORDINATOR, Jocelyne H Attending Unavailable Johnny, Pietro Referring [...] Attending Unavailable Johnny, Pietro Referring Unavailable Roof NURSING STAFFING COORDINATOR, Jocelyne H Attending Unavailable Johnny, Pietro Primary [...] Care Unavailable Johnny, Pietro Referring Unavailable Roof NURSING STAFFING COORDINATOR, Jocelyne Tijerina Attending Unavailable Johnny, Pietro Primary Care Unavailable Allergies Allergy Classification Reported Allergen(s) Allergy Type Date of Onset Reaction(s) Facility (2 sources) Penicillin; Translations: [penicillins] Drug Allergy [facility] (20 sources) Lisinopril Drug Allergy 02-17-20 22 cough [facility] (20 sources) Penicillins; Translations: [PENICILLINS] Allergy to substance 11-04-19 09 Other [facility] (20 sources) Spironolactone Drug Allergy 02-17-20 22 elevated blood sugar [facility] (8 sources) Iojyhum-Mlv-Zkg Reductase Inhibitor Propensity to adverse reactions 04-27-20 25 myalgias [facility] (1 source) Lisinopril Drug Allergy 08-24-20 25 [facility] (1 source) Spironolactone Drug Allergy 08-24-20 25 [facility] (1 source) Tmkdwhz-Pfx-Rlp Reductase Inhibitor Drug allergy (disorder) 08-24-20 25 [facility] Medications Current Medications Medication Drug [...] Glucose Scanning Reade r (Freestyle Jean 2 [place]) misc (9 sources) Start: 02-05-2024 Flash Glucose Scanning [place] (Freestyle Jean 2 [place]) misc Active 0 .Route 1 February 05, 2024 12:00am As directed Start: 02-05-2024 Flash Glucose Scanning [place] (Freestyle Jean 2 [place]) misc Active 0 .Route 1 February 05, [...] EST, Height... Start Date: 12/17/20 Status: Ordered [place]-3 1050 mg oral capsule (2 sources) Start: 07-15-2020 [place]-3 1050 m g oral capsule Dose : 1,050 mg = 1 cap(s), Oral, qDay, # 90 cap(s), 0 Refill(s) Start Date: 07/15/20 Status: Ordered [place]-3 Fatty Acids (13 sources) Start: 08-20-2020 take 1000 mg by mouth once daily [place]-3 Fatty Acids Active 1000 MG PO DAILY August 20, 2020 9:18am Start: 08-20-2020 End: 10-18-2022 take 1000 mg by mouth once daily [place]-3 Fatty Acids Discontinued 1000 MG PO DAILY August 20, 2020 12:00am October 18, 2022 3:15pm Start: 08-20-2020 End: 10-18-2022 take 1000 mg by mouth once daily [place]-3 Fatty Acids Discontinued 1000 MG PO DAILY August 19, 2020 11:00pm October 18, 2022 2:15pm Start: 08-20-2020 take 1000 mg by mout h once daily [place]-3 Fatty Acids Active 1000 MG PO DAILY August 19, 2020 11:00pm Start: 08-20-2020 take 1000 mg by mout h once daily [place]-3 Fatty Acids Active 1000 MG PO DAILY August 20, 2020 12:00am rivaroxaban 2.5 mg oral tablet (4 sources) Factor Xa Inhibitor Start: 08-12-2021 Xarelto 2. 5 mg oral tablet Dose : 2.5 mg = 1 tab(s), Oral, BID, # 60 tab(s), 11 Refill(s), Pharmacy: [id number], 185.4, cm, 08/12/21 10:46:00 [...] qDayM, # 30 tab(s), 11 Refill(s), Pharmacy: [id number], 185.4, cm, 08/12/21 10:46:00 [...] Daily, # 30 tab(s), 11 Refill(s), Pharmacy: [id number], 185.5, cm, 07/24/20 20:26:00 [...] Start: 11-06-2023 End: 01-03-2024 Flash Glucose Scanning [place] (Freestyle Jean 14 Day [place]) misc (10 sources) Start: 01-22-2024 End: 02-05-2024 Flash Glucose Scanning [place] (Freestyle Jean 14 Day [place]) misc Discontinued 0 .Route 1 0 January 22, 2024 12:00am February 05, 2024 4:59pm As directed Start: 01-22-2024 End: 02-05-2024 Flash Glucose Scanning Reade r (Freestyle Jean 14 Day [place]) misc Discontinued 0 .Route 1 January 22, 2024 12:00am February 05, 2024 4:59pm As directed Start: 01-22-2024 Flash Glucose Scanning [place] (Freestyle Jean 14 Day [place]) misc Active 0 .Route 1 January 22, [...] 08-12-2021 End: 02-11-2024 Start: 04-21-2021 End: 09-21-2021 [place]-3 Fatty Acids 1,000 mg capsule (8 sources) Start: 08-20-2020 End: 10-18-2022 take 1 capsule by mouth once daily [place]-3 Fatty Acids 1,000 mg capsule Discontinued 1000 mg PO DAILY August 20, 2020 12:00am October 18, 2022 3:15pm Jilxe-4-Ieb-Fish Oil 910-1,300 mg capsule,delayed release(DR/EC) (8 sources) Start: 05-23-2024 End: 01-01-2025 Qthvz-9-Wjh-Fish Oil 910-1,300 mg capsule,delayed release(DR/EC) Discontinued 2 [...] Interpretation Reference Range Facility MR/BMS.LORENBon 08-24-2025 MR/BMS.IMB [facility] [address] [facility] [place] [id number] OFFICE VISIT Date of Service: 08/24/25 MR#: [id number] Acct: [id number] Name: ALIX LEE Rep #: [id number] : 1960 Provider: Dr. Pietro ram MD Age/Sex: 65/M Location: [facility] Status: Signed Intake Vital Signs 08/10/25 07:51 [...] room air Intake Visit Reasons: Leg Discomfort Unionm[employer] Operator Required: No Accompanied by: Self Is patient in pain?: No Allergies Penicillins (PCN) Allergy (Verified 08/24/25 13:34) Other Bxnyaxq-WQQ-WpS Reductase Inhibitor Adverse Reaction (Intermediate, Verified 08/24/25 13:34) myalgias lisinopril Adverse Reaction (Verified 08/24/25 13:34) cough spironolactone Adverse Reaction (Verified 08/24/25 13:34) elevated blood sugar Medications ???Medication ???Instructions ???Recorded ???Confirmed ???Type needle (disp) 18 G 18 gauge x 1 #100 ea 05/22/22 08/24/25 Rx (BD Regular Bevel [place]) flash glucose scanning reader #1 ea 02/05/24 08/24/25 Rx (Pantech Jean 2 [place]) cholecalciferol (vitamin D3) 125 5,000 unit PO [...] pulmonary arterial hypertension Atherosclerotic heart disease of [place] coronary artery with other forms of angina [...] (cerebral va (more content not included)... Normal [facility] Absolute lymphocyte countOrd ered By: Pietro Turner on 08-14-2025 Lymphocytes Auto (Unsp spec) [#/Vol] 1.02 10*3/uL 0.83-4.51 [facility] Anion gap in Serum or Plasma Ordered By: Pietro Turner on 08-14-2025 Anion gap [Moles/Vol] 15 mmol/L 03-12 [facility] Automated lymphocyte count a s percentage of total leukocytesOrdered By: Pietro Turner on 08-14-2025 Lymphocytes/100 WBC Auto (Unsp spec) 12.3 % Low [facility] BUN/creatinine ratioOrdered By: Pietro Turner on 08-14-2025 Urea nitrogen/Creatinine [Mass ratio] 18.4 mg/mg 08-17 [facility] Basophil percentageOrdered B y: Pietro Turner on 08-14-2025 Basophils/100 WBC (Bld) 0.6 % 0 [facility] Bilirubin, totalOrdered By: Pietro Turner on 08-14-2025 Bilirubin [Mass/Vol] 0.78 mg/dL 0.00-1.30 [facility] CBC W/Diff, Automatedon 07-29 Absolute Lymph 1.02 X10 3/uL Normal 0.83-4.51 [facility] Comment on above: Performed By: #### L 501.9985, L500.4050, L100.0100, L500.4100 #### [facility] [place], [address] Absolute Neut 6.3 X10 3/uL Normal 2.0-7.7 [facility] Comment on above: Performed By: #### L 501.9985, L500.4050, L100.0100, L500.4100 #### [facility] [address] [place], [address] Basophils/100 WBC (Bld) 0.6 % Normal 0-1 [facility] Comment on above: Performed By: #### L 501.9985, L500.4050, L100.0100, L500.4100 #### [facility] [address] [place], [address] Eosinophils/100 WBC (Bld) 2.9 % Normal 0-5 [facility] Comment on above: Performed By: #### L 501.9985, L500.4050, L100.0100, L500.4100 #### [facility] [address] [place], [address] Erythrocyte distribution width (RBC) [Ratio] 13.2 % Normal 11.6-14.6 [facility] Comment on above: Performed By: #### L 501.9985, L500.4050, L100.0100, L500.4100 #### [facility] [address] [place], [address] Hematocrit (Bld) [Volume fraction] 42.1 % Normal 40-54 [facility] Comment on above: Performed By: #### L 501.9985, L500.4050, L100.0100, L500.4100 #### [facility] [address] [place], [address] Hemoglobin (Bld) [Mass/Vol] 14.5 g/dL Normal 13.0-16.5 [facility] Comment on above: Performed By: #### L 501.9985, L500.4050, L100.0100, L500.4100 #### [facility] [address] [place], [address] IG% 0.400 Normal 0.0-0.9 [facility] Comment on above: Result Comment: IG% - Immature Granulocytes (promyelocytes, myelocytes and metamyelocytes) > 1% indicates that a LEFT SHIFT is Present. Performed By: #### L 501.9985, L500.4050, L100.0100, L500.4100 #### [facility] [address] [place], [address] Lymphocytes/100 WBC (Bld) 12.3 % Low 19-41 [facility] Comment on above: Performed By: #### L 501.9985, L500.4050, L100.0100, L500.4100 #### [facility] [address] [place], [address] MCH (RBC) [Entitic mass] 30.0 pg Normal 27.0-32.0 [facility] Comment on above: Performed By: #### L 501.9985, L500.4050, L100.0100, L500.4100 #### [facility] [address] [place], [address] MCHC (RBC) [Mass/Vol] 34.4 g/dL Normal 32-36 [facility] Comment on above: Performed By: #### L 501.9985, L500.4050, L100.0100, L500.4100 #### [facility] [address] [place], [address] MCV (RBC) [Entitic vol] 87.2 fL Normal 80-94 [facility] Comment on above: Performed By: #### L 501.9985, L500.4050, L100.0100, L500.4100 #### [facility] [address] [place], [address] Monocytes/100 WBC (Bld) 7.5 % Normal 0-10 [facility] Comment on above: Performed By: #### L 501.9985, L500.4050, L100.0100, L500.4100 #### [facility] [address] [place], [address] Neutrophils/100 WBC (Bld) 76.3 % High 47-70 [facility] Comment on above: Performed By: #### L 501.9985, L500.4050, L100.0100, L500.4100 #### [facility] [address] [place], [address] Nucleated RBC (Bld) [#/Vol] 0 10*3/uL Normal 0-5 [facility] Comment on above: Performed By: #### L 501.9985, L500.4050, L100.0100, L500.4100 #### [facility] [address] [place], [address] Platelet mean volume (Bld) [Entitic vol] 9.4 fL Normal 6.2-12.0 [facility] Comment on above: Performed By: #### L 501.9985, L500.4050, L100.0100, L500.4100 #### [facility] [address] [place], [address] Platelets (Bld) [#/Vol] 288 10*3/uL Normal 150-450 [facility] Comment on above: Performed By: #### L 501.9985, L500.4050, L100.0100, L500.4100 #### [facility] [address] [place], [address] RBC (Bld) [#/Vol] 4.83 10*6/uL Normal 4.6-6.2 [facility] Comment on above: Performed By: #### L 501.9985, L500.4050, L100.0100, L500.4100 #### [facility] [address] [place], [address] RDW SD 40.7 fl Normal 35.1-43.9 [facility] Comment on above: Performed By: #### L 501.9985, L500.4050, L100.0100, L500.4100 #### [facility] [address] [place], [address] WBC (Bld) [#/Vol] 8.3 10*3/uL Normal 4.4-11.0 [facility] Comment on above: Performed By: #### L 501.9985, L500.4050, L100.0100, L500.4100 #### [facility] [address] [place], [address] CRPon 08-14-2025 C-REACTIVE PROT < 3.00 Normal 0.0-3.0 [facility] Comment on above: Performed By: #### L 101.9900, L501.6710 ####[facility] [address] [place], [address] Calculated very low density lipoprotein (VLDL) cholesterol measurementOrdered By: Pietro Turner on 08-14-2025 Calculated very low density lipoprotein (VLDL) cholesterol measurement 51 mg/dL High 5-40 [facility] Carbon dioxide, total [Moles /volume] in Central venous bloodOrdered By: Pietro Turner on 08-14-2025 CO2 [Moles/Vol] 21.5 mmol/L 21.0-32.0 [facility] Chloride assayOrdered By: Rohini Turner on 08-14-2025 Chloride [Moles/Vol] 100 mmol/L 98-108 [facility] Comprehensive Metabolic Prof ilon 08-14-2025 Albumin [Mass/Vol] 4.6 g/dL Normal 3.4-4.8 [facility] Comment on above: Performed By: #### L 501.9985, L500.4050, L100.0100, L500.4100 ####[facility] [address] [place], [address] Albumin/Globulin [Mass ratio] 1.7 {ratio} Normal 0.9-2.4 [facility] Comment on above: Performed By: #### L 501.9985, L500.4050, L100.0100, L500.4100 ####[facility] [address] [place], [address] ALK PHOS 115 U/L Normal 40-129 [facility] Comment on above: Performed By: #### L 501.9985, L500.4050, L100.0100, L500.4100 ####[facility] [address] [place], [address] ALT [Catalytic activity/Vol] 29 U/L Normal <=46 [facility] Comment on above: Performed By: #### L 501.9985, L500.4050, L100.0100, L500.4100 ####[facility] [address] [place], [address] AST [Catalytic activity/Vol] 26 U/L Normal <=37 [facility] Comment on above: Performed By: #### L 501.9985, L500.4050, L100.0100, L500.4100 ####[facility] [address] [place], [address] Bilirubin [Mass/Vol] 0.78 mg/dL Normal 0.00-1.30 [facility] Comment on above: Performed By: #### L 501.9985, L500.4050, L100.0100, L500.4100 ####[facility] [address] [place], [address] BUN/CRE 18.4 RATIO Normal 10-20 [facility] Comment on above: Performed By: #### L 501.9985, L500.4050, L100.0100, L500.4100 ####[facility] [address] [place], [address] Calcium [Mass/Vol] 9.8 mg/dL Normal 7.6-11.0 [facility] Comment on above: Performed By: #### L 501.9985, L500.4050, L100.0100, L500.4100 ####[facility] [address] [place], [address] Chloride [Moles/Vol] 100 mmol/L Normal 98-108 [facility] Comment on above: Performed By: #### L 501.9985, L500.4050, L100.0100, L500.4100 ####[facility] [address] [place], [address] CO2 [Moles/Vol] 21.5 mmol/L Normal 21.0-32.0 [facility] Comment on above: Performed By: #### L 501.9985, L500.4050, L100.0100, L500.4100 ####[facility] [address] [place], [address] Creatinine [Mass/Vol] 0.93 mg/dL Normal 0.70-1.20 [facility] Comment on above: Performed By: #### L 501.9985, L500.4050, L100.0100, L500.4100 ####[facility] [address] [place], [address] GAP 15 Normal 5-15 [facility] Comment on above: Performed By: #### L 501.9985, L500.4050, L100.0100, L500.4100 ####[facility] [address] [place], [address] GFR/1.73 sq M.predicted among non-blacks MDRD (S/P/Bld) [Vol rate/Area] 92 mL/min/{1.73_m2} Normal >60 [facility] Comment on above: Result Comment: mL/m in/1.73m2 CKD-EPI Creatinine Equation (2020) Performed By: #### L 501.9985, L500.4050, L100.0100, L500.4100 ####[facility] [address] [place], [address] Globulin (S) [Mass/Vol] 2.7 g/dL Normal 2.2-4.2 [facility] Comment on above: Performed By: #### L 501.9985, L500.4050, L100.0100, L500.4100 ####[facility] [address] [place], [address] Glucose [Mass/Vol] 134 mg/dL High 70-99 [facility] Comment on above: Performed By: #### L 501.9985, L500.4050, L100.0100, L500.4100 ####[facility] [address] [place], [address] Potassium [Moles/Vol] 4.2 mmol/L Normal 3.3-5.1 [facility] Comment on above: Performed By: #### L 501.9985, L500.4050, L100.0100, L500.4100 ####[facility] [address] [place], [address] Sodium [Moles/Vol] 137 mmol/L Normal 133-145 [facility] Comment on above: Performed By: #### L 501.9985, L500.4050, L100.0100, L500.4100 ####[facility] [address] [place], [address] T PROT 7.3 g/dL Normal 5.9-8.4 [facility] Comment on above: Performed By: #### L 501.9985, L500.4050, L100.0100, L500.4100 ####[facility] [address] [place], [address] Urea nitrogen [Mass/Vol] 17 mg/dL Normal 4-19 [facility] Comment on above: Performed By: #### L 501.9985, L500.4050, L100.0100, L500.4100 ####[facility] [address] [place], [place], [id number] Eosinophil percentageOrdered By: Pietro Turner on 08-14-2025 Eosinophils/100 WBC (Bld) 2.9 % 0-5 [facility] Erythrocyte Sed Rateon 08-14 SED RATE 5 mm/hr Normal 0-20 [facility] Comment on above: Performed By: #### L 101.9900, L501.6710 ####[facility] [address] [place], [place], [address] Erythrocyte distribution wid th ratioOrdered By: Pietro Turner on 08-14-2025 Erythrocyte distribution width (RBC) [Ratio] 13.2 % 11.6-14.6 [facility] Erythrocyte distribution wid th standard deviationOrdered By: Pietro Turner on 08-14-2025 Erythrocyte distribution width (RBC) [Ratio] 40.7 fl 35.1-43.9 [facility] Erythrocyte sedimentation ra teOrdered By: Pietro Turner on 08-14-2025 ESR (Bld) [Velocity] 5 mm/h 0-20 [facility] Glomerular filtration rate ( GFR) estimation/1.73 sq m using serum, plasma, or whole bOrdered By: Pietro Turner on 08-14-2025 GFR/1.73 sq M.predicted among non-blacks MDRD (S/P/Bld) [Vol rate/Area] 92 mL/min/{1.73_m2} >60 [facility] Hematocrit Auto (Bld) [Volum e fraction]Ordered By: Pietro Turner on 08-14-2025 Hematocrit (Bld) [Volume fraction] 42.1 % 40-54 [facility] Hemoglobin A1con 08-14-2025 HbA1c (Bld) [Mass fraction] 6.0 % High <=5.6 [facility] Comment on above: Result Comment: Norm al < 5.7 % Prediabetic 5.7 - 6.4 % Diabetic >or= 6.5 % Please note range changes. Performed By: #### L 501.9985, L500.4050, L100.0100, L500.4100 ####[facility] [address] [place], [address] Hemoglobin A1c percentageOrd ered By: Pietro Turner on 08-14-2025 HbA1c (Bld) [Mass fraction] 6.0 % High <5.7 [facility] Hemoglobin measurementOrdere d By: Pietrochelsie Turner on 08-14-2025 Hemoglobin (Bld) [Mass/Vol] 14.5 g/dL 13.0-16.5 [facility] Immature granulocytes/100 WB C Auto (Bld)Ordered By: Pietrochelsie Turner on 08-14-2025 Immature granulocytes/100 WBC (Bld) 0.400 % 0.0-0.9 [facility] LDL calc ser/plasOrdered By: Pietro Turner on 08-14-2025 Cholesterol in LDL [Mass/Vol] -3 mg/dL [facility] Lipid Profileon 08-14-2025 CHOL:HDL 1.96 Normal [facility] Comment on above: Performed By: #### L 501.9985, L500.4050, L100.0100, L500.4100 ####[facility] [address] [place], [address] Cholesterol [Mass/Vol] 69 mg/dL Normal <=200 [facility] Comment on above: Result Comment: Chol esterol level, Desirable <200 mg/dL Borderline high cholesterol 200-239 mg/dL High cholesterol >=240 mg/dL Recommendations of the NCEP Adult Treatment Panel for the following risk-cutoff thresholds for the [place] population. Performed By: #### L 501.9985, L500.4050, L100.0100, L500.4100 ####[facility] [address] [place], [place], [id number] Cholesterol in HDL [Mass/Vol] 35 mg/dL Low [facility] Comment on above: Result Comment: [place] onal Cholesterol Education Program (NCEP) guidelines: <40 mg/dL: Low HDL-cholesterol (major risk factor for CHD) >= 60 mg/dL: High HDL-cholesterol (negative risk factor for CHD) HDL-cholesterol is affected by a number of factors, e.g. smoking, exercise, hormones, sex and age. Performed By: #### L 501.9985, L500.4050, L100.0100, L500.4100 ####[facility] [address] [place], [address] Cholesterol in LDL [Mass/Vol] -3 mg/dL Normal [facility] Comment on above: Result Comment: Bord wejfwq=318-073 mg/dL Higher Gppu=696 mg/dL or greater Xiong Equation 2020 for LDL-C Performed By: #### L 501.9985, L500.4050, L100.0100, L500.4100 ####[facility] [address] [place], [address] Cholesterol in VLDL [Mass/Vol] 51 mg/dL High 5-40 [facility] Comment on above: Performed By: #### L 501.9985, L500.4050, L100.0100, L500.4100 ####[facility] [address] [place], [address] Triglyceride [Mass/Vol] 256 mg/dL High [facility] Comment on above: Result Comment: The drugs N-Acetylcysteine and Metamizole may falsely depress this assay. Normal range: <150 mg/dL Borderline High: 150-199 mg/dL High: 200-499 mg/dL Very High: >500 mg/dL Performed By: #### L 501.9985, L500.4050, L100.0100, L500.4100 ####[facility] [address] [place], [address] MCV (mean corpuscular volume ) determinationOrdered By: Pietro Turner on 08-14-2025 MCV (RBC) [Entitic vol] 87.2 fL 80-94 [facility] Mean corpuscular hemoglobin (MCH) determinationOrdered By: Pietro Turner on 08-14-2025 MCH (RBC) [Entitic mass] 30.0 pg 27.0-32.0 [facility] Monocyte percentageOrdered B y: Pietro Turner on 08-14-2025 Monocytes/100 WBC (Bld) 7.5 % 0-10 [facility] Neutrophil percentageOrdered By: Pietro Turner on 08-14-2025 Neutrophils/100 WBC (Bld) 76.3 % High 47-70 [facility] No Panel InformationOrdered By: Pietro Turner on 08-14-2025 26 U/L <38 [facility] Platelet countOrdered By: Rohini Turner on 08-14-2025 Platelets (Bld) [#/Vol] 288 10*3/uL 150-450 [facility] Potassium measurement (mass/ volume)Ordered By: Pietro Turner on 08-14-2025 Potassium (Unsp spec) [Mass/Vol] 4.2 mmol/L 3.3-5.1 [facility] RBC Auto (Bld) [#/Vol]Ordere d By: Pietro Turner on 08-14-2025 RBC (Bld) [#/Vol] 4.83 10*6/uL 4.6-6.2 [facility] Serum creatinine measurement (mass/volume)Ordered By: Pietro Turner on 08-14-2025 Creatinine [Mass/Vol] 0.93 mg/dL 0.70-1.20 [facility] Serum globulin measurementOr dered By: Pietro Turner on 08-14-2025 Globulin (S) [Mass/Vol] 2.7 g/dL 2.2-4.2 [facility] Serum glucose measurement (m ass/volume)Ordered By: Pietro Turner on 08-14-2025 Glucose [Mass/Vol] 134 mg/dL High 70-99 [facility] Serum or plasma C reactive p rotein measurement (mass/volume)Ordered By: Pietro Turner on 08-14-2025 CRP [Mass/Vol] mg/L 0.0-3.0 [facility] Serum or plasma alanine carrillo otransferase (ALT) measurementOrdered By: Pietro Turner on 08-14-2025 ALT [Catalytic activity/Vol] 29 U/L <47 [facility] Serum or plasma albumin michelle urement (mass/volume)Ordered By: Pietro Turner on 08-14-2025 Albumin [Mass/Vol] 4.6 g/dL 3.4-4.8 [facility] Serum or plasma albumin/glob ulin mass ratioOrdered By: Pietro Turner on 08-14-2025 Albumin/Globulin [Mass ratio] 1.7 {ratio} 0.9-2.4 [facility] Serum or plasma alkaline andres sphatase measurementOrdered By: Pietro Turner on 08-14-2025 ALP [Catalytic activity/Vol] 115 U/L 40-129 [facility] Serum or plasma calcium michelle urement (mass/volume)Ordered By: Pietro Turner on 08-14-2025 Calcium [Mass/Vol] 9.8 mg/dL 7.6-11.0 [facility] Serum or plasma cholesterol in HDL measurement (mass/volume)Ordered By: Pietro Turner on 08-14-2025 Cholesterol in HDL [Mass/Vol] 35 mg/dL Low >40 [facility] Serum or plasma cholesterol measurement (mass/volume)Ordered By: Pietro Turner on 08-14-2025 Cholesterol [Mass/Vol] 69 mg/dL <201 [facility] Serum or plasma urea nitroge n measurement (mass/volume)Ordered By: Pietro Turner on 08-14-2025 Urea nitrogen [Mass/Vol] 17 mg/dL 4-19 [facility] Sodium levelOrdered By: Carmen Turner on 08-14-2025 Sodium [Moles/Vol] 137 mmol/L 133-145 [facility] Total proteinOrdered By: Britni Turner on 08-14-2025 Protein [Mass/Vol] 7.3 g/dL 5.9-8.4 [facility] White blood cell (WBC) count Ordered By: Pietro Turner on 08-14-2025 WBC (Bld) [#/Vol] 8.3 10*3/uL 4.4-11.0 [facility] Cardiology Visit Reporton Cardiology Visit Report [facility] [address] [place] [address] OFFICE VISIT Date of Service: 08/10/25 MR#: [id number] Acct: [id number] Name: ALIX LEE Rep #: [id number] : 1960 Provider: MICHELLE koch Age/Sex: 65/M Location: [facility] Status: Signed HPI HPI History of [...] air Intake Visit Reasons: 9 M FU Unionmelt Operator Required: No Is patient in pain?: No Allergies Penicillins (PCN) Allergy (Verified 08/10/25 13:38) Other Uhqenho-DHQ-DwM Reductase Inhibitor Adverse Reaction (Intermediate, Verified 08/10/25 13:38) myalgias lisinopril Adverse Reaction (Verified 08/10/25 13:38) cough spironolactone Adverse Reaction (Verified 08/10/25 13:38) elevated blood sugar Medications ???Medication ???Instructions ???Recorded ???Confirmed ???Type needle (disp) 18 G 18 gauge x 1 #100 ea 05/22/22 07/28/25 Rx (BD Regular Bevel [place]) flash glucose scanning reader #1 ea 02/05/24 07/28/25 Rx (FreeStyle Jean 2 [place]) cholecalciferol (vitamin D3) 125 5,000 unit PO [...] Q5-15M P (more content not included)... Normal [facility] MR/BMS.IMBon 07-28-2025 MR/BMS.IMB [facility] [address] [place] [address] OFFICE VISIT Date of Service: 07/28/25 MR#: [id number] Acct: [id number] Name: ALIX LEE Rep #: [id number] : 1960 Provider: Dr. Pietro ram MD Age/Sex: 65/M Location: [facility] [place] Status: Signed Intake Vital Signs 06/17/25 [...] room air Intake Visit Reasons: Persistent Cough Unionmelt Operator Required: No Accompanied by: Self Is patient in pain?: No Allergies Penicillins (PCN) Allergy (Verified 07/28/25 10:37) Other Nbuyuqv-NXN-OjK Reductase Inhibitor Adverse Reaction (Intermediate, Verified 07/28/25 10:37) myalgias lisinopril Adverse Reaction (Verified 07/28/25 10:37) cough spironolactone Adverse Reaction (Verified 07/28/25 10:37) elevated blood sugar Medications ???Medication ???Instructions ???Recorded ???Confirmed ???Type needle (disp) 18 G 18 gauge x 1 #100 ea 05/22/22 07/28/25 Rx (BD Regular Bevel [place]) flash glucose scanning reader #1 ea 02/05/24 07/28/25 Rx (FreeStyle Jean 2 [place]) cholecalciferol (vitamin D3) 125 5,000 unit PO [...] pulmonary arterial hypertension Atherosclerotic heart disease of [place] coronary artery with other forms of angina [...] placement (07/26/20) (more content not included)... Normal [facility] Testosterone, Total / Freeon 06-29-2025 TESTOSTER,FREE 3.61 ng/dL Abnormal 5.00-21.00 [facility] Comment on above: Order Comment: N Performed By: #### L 100.0100, L500.4050, L3100.5310, L500.4100 ####[facility] [address] [place], [address] TESTOSTER,TOTAL 148 ng/dL Low 264-916 [facility] Comment on above: Order Comment: N Result Comment: Adul t male reference interval is based on a population of healthy nonobese males (BMI <30) between 19 and 39 years old. Rick et.al. JCEM 2017,102;6137-6540. PMID: [id number]. Performed By: #### L 100.0100, L500.4050, L3100.5310, L500.4100 ####[facility] [address] [place], [address] TESTOSTERONE,%F 2.44 Normal 1.50-4.20 [facility] Comment on above: Order Comment: N Result Comment: Perf ormed at: [facility] [address] [id number] Director Trust: Geovanny Moore PhD, Phone: [phone] Performed at: [facility] [address] [id number] Director Trust: Lyle Alves MD, Phone: [phone] Performed By: #### L 100.0100, L500.4050, L3100.5310, L500.4100 ####[facility] [address] [place], [address] CBC W/Diff, Automatedon 08- Absolute Neut Normal 2.0-7.7 [facility] Comment on above: Result Comment: RASHAD ENT SAID HE WAS ONLY SUPPOSED TO GET THIS TESTOST FT DONE Performed By: #### L 100.0100, L500.4050, L3100.5310, L500.4100 ####[facility] [address] [place], [address] HCT Normal 40-54 [facility] Comment on above: Result Comment: RASHAD ENT SAID HE WAS ONLY SUPPOSED TO GET THIS TESTOST FT DONE Performed By: #### L 100.0100, L500.4050, L3100.5310, L500.4100 ####[facility] [address] [place], [address] HGB Normal 13.0-16.5 [facility] Comment on above: Result Comment: RASHAD DAWSON SAID HE WAS ONLY SUPPOSED TO GET THIS TESTOST FT DONE Performed By: #### L 100.0100, L500.4050, L3100.5310, L500.4100 ####[facility] [address] [place], [address] MCH Normal 27.0-32.0 [facility] Comment on above: Result Comment: RASHAD DAWSON SAID HE WAS ONLY SUPPOSED TO GET THIS TESTOST FT DONE Performed By: #### L 100.0100, L500.4050, L3100.5310, L500.4100 ####[facility] [address] [place], [address] MCHC Normal 32-36 [facility] Comment on above: Result Comment: RASHAD DAWSON SAID HE WAS ONLY SUPPOSED TO GET THIS TESTOST FT DONE Performed By: #### L 100.0100, L500.4050, L3100.5310, L500.4100 ####[facility] [address] [place], [address] MCV Normal 80-94 [facility] Comment on above: Result Comment: RASHAD DAWSON SAID HE WAS ONLY SUPPOSED TO GET THIS TESTOST FT DONE Performed By: #### L 100.0100, L500.4050, L3100.5310, L500.4100 ####[facility] [address] [place], [address] NEUT% Normal 47-70 [facility] Comment on above: Result Comment: RASHAD ENT SAID HE WAS ONLY SUPPOSED TO GET THIS TESTOST FT DONE Performed By: #### L 100.0100, L500.4050, L3100.5310, L500.4100 ####[facility] [address] [place], [address] PLT Normal 150-450 [facility] Comment on above: Result Comment: RASHAD ENT SAID HE WAS ONLY SUPPOSED TO GET THIS TESTOST FT DONE Performed By: #### L 100.0100, L500.4050, L3100.5310, L500.4100 ####[facility] [address] [place], [address] RBC Normal 4.6-6.2 [facility] Comment on above: Result Comment: RASHAD ENT SAID HE WAS ONLY SUPPOSED TO GET THIS TESTOST FT DONE Performed By: #### L 100.0100, L500.4050, L3100.5310, L500.4100 ####[facility] [address] [place], [address] RDW CV Normal 11.6-14.6 [facility] Comment on above: Result Comment: RASHAD ENT SAID HE WAS ONLY SUPPOSED TO GET THIS TESTOST FT DONE Performed By: #### L 100.0100, L500.4050, L3100.5310, L500.4100 ####[facility] [address] [place], [address] RDW SD Normal 35.1-43.9 [facility] Comment on above: Result Comment: RASHAD ENT SAID HE WAS ONLY SUPPOSED TO GET THIS TESTOST FT DONE Performed By: #### L 100.0100, L500.4050, L3100.5310, L500.4100 ####[facility] [address] [place], [address] WBC Normal 4.4-11.0 [facility] Comment on above: Result Comment: RASHAD ENT SAID HE WAS ONLY SUPPOSED TO GET THIS TESTOST FT DONE Performed By: #### L 100.0100, L500.4050, L3100.5310, L500.4100 ####[facility] [address] [place], [address] Comprehensive Metabolic Prof rsoeline 06-24-2025 ALB Normal 3.4-4.8 [facility] Comment on above: Result Comment: RASHAD ENT SAID HE WAS ONLY SUPPOSED TO GET THIS TESTOST FT DONE Performed By: #### L 100.0100, L500.4050, L3100.5310, L500.4100 ####[facility] [address] [place], [address] ALK PHOS Normal 40-129 [facility] Comment on above: Result Comment: RASHAD ENT SAID HE WAS ONLY SUPPOSED TO GET THIS TESTOST FT DONE Performed By: #### L 100.0100, L500.4050, L3100.5310, L500.4100 ####[facility] [address] [place], [address] ALT Normal <=46 [facility] Comment on above: Result Comment: RASHAD ENT SAID HE WAS ONLY SUPPOSED TO GET THIS TESTOST FT DONE Performed By: #### L 100.0100, L500.4050, L3100.5310, L500.4100 ####[facility] [address] [place], [address] AST Normal <=37 [facility] Comment on above: Result Comment: RASHAD ENT SAID HE WAS ONLY SUPPOSED TO GET THIS TESTOST FT DONE Performed By: #### L 100.0100, L500.4050, L3100.5310, L500.4100 ####[facility] [address] [place], [address] BUN Normal 4-19 [facility] Comment on above: Result Comment: RASHAD ENT SAID HE WAS ONLY SUPPOSED TO GET THIS TESTOST FT DONE Performed By: #### L 100.0100, L500.4050, L3100.5310, L500.4100 ####[facility] [address] [place], [address] BUN/CRE Normal 10-20 [facility] Comment on above: Result Comment: RASHAD ENT SAID HE WAS ONLY SUPPOSED TO GET THIS TESTOST FT DONE Performed By: #### L 100.0100, L500.4050, L3100.5310, L500.4100 ####[facility] [address] [place], [address] Calcium Normal 7.6-11.0 [facility] Comment on above: Result Comment: RASHAD ENT SAID HE WAS ONLY SUPPOSED TO GET THIS TESTOST FT DONE Performed By: #### L 100.0100, L500.4050, L3100.5310, L500.4100 ####[facility] [address] [place], [address] CL Normal 98-108 [facility] Comment on above: Result Comment: RASHAD ENT SAID HE WAS ONLY SUPPOSED TO GET THIS TESTOST FT DONE Performed By: #### L 100.0100, L500.4050, L3100.5310, L500.4100 ####[facility] [address] [place], [address] CO2 Normal 21.0-32.0 [facility] Comment on above: Result Comment: RASHAD ENT SAID HE WAS ONLY SUPPOSED TO GET THIS TESTOST FT DONE Performed By: #### L 100.0100, L500.4050, L3100.5310, L500.4100 ####[facility] [address] [place], [address] CREAT,SERUM Normal 0.70-1.20 [facility] Comment on above: Result Comment: RASHAD ENT SAID HE WAS ONLY SUPPOSED TO GET THIS TESTOST FT DONE Performed By: #### L 100.0100, L500.4050, L3100.5310, L500.4100 ####[facility] [address] [place], [address] eGFR Normal >60 [facility] Comment on above: Result Comment: RASHAD ENT SAID HE WAS ONLY SUPPOSED TO GET THIS TESTOST FT DONE Performed By: #### L 100.0100, L500.4050, L3100.5310, L500.4100 ####[facility] [address] [place], [address] GAP Normal 5-15 [facility] Comment on above: Result Comment: RASHAD ENT SAID HE WAS ONLY SUPPOSED TO GET THIS TESTOST FT DONE Performed By: #### L 100.0100, L500.4050, L3100.5310, L500.4100 ####[facility] [address] [place], [address] GLU Normal 70-99 [facility] Comment on above: Result Comment: RASHAD ENT SAID HE WAS ONLY SUPPOSED TO GET THIS TESTOST FT DONE Performed By: #### L 100.0100, L500.4050, L3100.5310, L500.4100 ####[facility] [address] [place], [address] Potassium Normal 3.3-5.1 [facility] Comment on above: Result Comment: RASHAD ENT SAID HE WAS ONLY SUPPOSED TO GET THIS TESTOST FT DONE Performed By: #### L 100.0100, L500.4050, L3100.5310, L500.4100 ####[facility] [address] [place], [address] T BILI Normal 0.00-1.30 [facility] Comment on above: Result Comment: RASHAD ENT SAID HE WAS ONLY SUPPOSED TO GET THIS TESTOST FT DONE Performed By: #### L 100.0100, L500.4050, L3100.5310, L500.4100 ####[facility] [address] [place], [address] T PROT Normal 5.9-8.4 [facility] Comment on above: Result Comment: RASHAD ENT SAID HE WAS ONLY SUPPOSED TO GET THIS TESTOST FT DONE Performed By: #### L 100.0100, L500.4050, L3100.5310, L500.4100 ####[facility] [address] [place], [address] Comprehensive Metabolic Profil Normal 133-145 [facility] Comment on above: Result Comment: RASHAD DAWSON SAID HE WAS ONLY SUPPOSED TO GET THIS TESTOST FT DONE Performed By: #### L 100.0100, L500.4050, L3100.5310, L500.4100 ####[facility] [address] [place], [address] Free testosterone percentage Ordered By: Pietro Turner on 06-24-2025 Testosterone Free/Testosterone.totleonor l [Mass fraction] 2.44 % 1.50-4.20 [facility] Comment on above: Performed at: [address] [id number] Director: Geovanny Moore PhD, Phone: [phone] at: [facility] [address] [id number] Director: Lyle Alves MD, Phone: [phone] Lipid Profileon 06-24-2025 TRIG Normal [facility] Comment on above: Result Comment: RASHAD DAWSON SAID HE WAS ONLY SUPPOSED TO GET THIS TESTOST FT DONE The drugs N-Acetylcysteine and Metamizole may falsely depress this assay. Performed By: #### L 100.0100, L500.4050, L3100.5310, L500.4100 ####[facility] [address] [place], [address] CHOL Normal <=200 [facility] Comment on above: Result Comment: RASHAD DAWSON SAID HE WAS ONLY SUPPOSED TO GET THIS TESTOST FT DONE Performed By: #### L 100.0100, L500.4050, L3100.5310, L500.4100 ####[facility] [address] [place], [address] CHOL:HDL Normal [facility] Comment on above: Result Comment: RASHAD ENT SAID HE WAS ONLY SUPPOSED TO GET THIS TESTOST FT DONE Performed By: #### L 100.0100, L500.4050, L3100.5310, L500.4100 ####[facility] [address] [place], [address] CLDL Normal [facility] Comment on above: Result Comment: RASHAD ENT SAID HE WAS ONLY SUPPOSED TO GET THIS TESTOST FT DONE Performed By: #### L 100.0100, L500.4050, L3100.5310, L500.4100 ####[facility] [address] [place], [address] HDL Normal [facility] Comment on above: Result Comment: RASHAD ENT SAID HE WAS ONLY SUPPOSED TO GET THIS TESTOST FT DONE Performed By: #### L 100.0100, L500.4050, L3100.5310, L500.4100 ####[facility] [address] [place], [address] VLDL Normal 5-40 [facility] Comment on above: Result Comment: RASHAD ENT SAID HE WAS ONLY SUPPOSED TO GET THIS TESTOST FT DONE Performed By: #### L 100.0100, L500.4050, L3100.5310, L500.4100 ####[facility] [address] [place], [address] Serum or plasma free testost erone measurement (mass/volume)Ordered By: Pietro Turner on 06-24-2025 Testosterone Free [Mass/Vol] 3.61 ng/dL Low 5.00-21.00 [facility] Testosterone, totalOrdered B y: Pietro Turner on 06-24-2025 Testosterone [Mass/Vol] 148 ng/dL Low 264-916 [facility] Comment on above: Adult male reference interval is based on a population ofhealthy nonobese males (BMI <30) between 19 and 39 yearsold. Rick et.al. JCEM 2017,102;2847-1148. PMID:[id number]. Testosterone, Total / Freeon 06-23-2025 TESTOSTER,FREE 10.85 ng/dL Normal 5.00-21.00 [facility] Comment on above: Order Comment: N Performed By: #### L 502.0500, L500.4050, L501.9985, L3100.5310 #### [facility] [address] [place], [address] TESTOSTER,TOTAL 450 ng/dL Normal 264-916 [facility] Comment on above: Order Comment: N Result Comment: Adul t male reference interval is based on a population of healthy nonobese males (BMI <30) between 19 and 39 years old. Rick et.al. JCEM 2017,102;2658-5657. PMID: [id number]. Performed By: #### L 502.0500, L500.4050, L501.9985, L3100.5310 #### [facility] [address] [place], [address] TESTOSTERONE,%F 2.41 Normal 1.50-4.20 [facility] Comment on above: Order Comment: N Result Comment: Perf ormed at: [facility] [address] [id number] Director Trust: Geovanny Moore PhD, Phone: [phone] Performed at: [facility] [address] [id number] Director Trust: Lyle Alves MD, Phone: [phone] Performed By: #### L 502.0500, L500.4050, L501.9985, L3100.5310 #### [facility] [address] [place], [address] Rolando 06-17-2025 /BRIDGETTE.TIFFANIE [facility] [address] [place] [address]. [address] [place] [address] OFFICE VISIT Date of Service: 06/17/25 MR#: [id number] Acct: [id number] Name: ALIX LEE Rep #: [id number] : 1960 Provider: Dr. Pietro ram MD Age/Sex: 65/M Location: [facility] [place] Status: Signed Intake Vital Signs 05/18/25 11:44 [...] Hip/Leg Pain Chief Complaint: Rt Hip/Leg pain Unionmelt Operator Required: No Accompanied by: Self Is patient in pain?: No Allergies Penicillins (PCN) Allergy (Verified 06/17/25 15:05) Other Prvzfps-HYH-DaI Reductase Inhibitor Adverse Reaction (Intermediate, Verified 06/17/25 15:05) myalgias lisinopril Adverse Reaction (Verified 06/17/25 15:05) cough spironolactone Adverse Reaction (Verified 06/17/25 15:05) elevated blood sugar Medications ???Medication ???Instructions ???Recorded ???Confirmed ???Type needle (disp) 18 G 18 gauge x 1 #100 ea 05/22/22 06/17/25 Rx (BD Regular Bevel [place]) flash glucose scanning reader #1 ea 02/05/24 06/17/25 Rx (FreeStyle Jean 2 [place]) cholecalciferol (vitamin D3) 125 5,000 unit PO [...] pulmonary arterial hypertension Atherosclerotic heart disease of [place] coronary artery with other forms of angina [...] placement (07/26/20) (more content not included)... Normal [facility] Anion gap in Serum or Plasma Ordered By: Pietro Turner on 06-15-2025 Anion gap [Moles/Vol] 14 mmol/L 5-15 [facility] BUN/creatinine ratioOrdered By: Pietro Turner on 06-15-2025 Urea nitrogen/Creatinine [Mass ratio] 17.2 mg/mg 10- [facility] Bilirubin directOrdered By: Jocelyne Dickey on 06-15-2025 Bilirubin.direct [Mass/Vol] 0.19 mg/dL 0.00-0.30 [facility] Bilirubin, totalOrdered By: Jocelyne Dickey on 06-15-2025 Bilirubin [Mass/Vol] 0.35 mg/dL 0.00-1.30 [facility] Calculated very low density lipoprotein (VLDL) cholesterol measurementOrdered By: Jocelyne Dickey on 06-15-2025 Calculated very low density lipoprotein (VLDL) cholesterol measurement 69 mg/dL High 5-40 [facility] Carbon dioxide, total [Moles /volume] in Central venous bloodOrdered By: Pietro Turner on 06-15-2025 CO2 [Moles/Vol] 22.4 mmol/L 21.0-32.0 [facility] Chloride assayOrdered By: Rohini Turner on 06-15-2025 Chloride [Moles/Vol] 101 mmol/L 98-108 [facility] Comprehensive Metabolic Prof ilon 06-15-2025 Albumin [Mass/Vol] 4.2 g/dL Normal 3.4-4.8 [facility] Comment on above: Performed By: #### L 502.0500, L500.4050, L501.9985, L3100.5310 #### [facility] [address] [place], [address] Performed By: #### L 500.4100, L500.3400 ####[facility] [address] [place], [address] Albumin/Globulin [Mass ratio] 1.9 {ratio} Normal 0.9-2.4 [facility] Comment on above: Performed By: #### L 502.0500, L500.4050, L501.9985, L3100.5310 #### [facility] [address] [place], [address] ALK PHOS 112 U/L Normal 40-129 [facility] Comment on above: Performed By: #### L 502.0500, L500.4050, L501.9985, L3100.5310 #### [facility] [address] [place], [address] ALT [Catalytic activity/Vol] 33 U/L Normal <=46 [facility] Comment on above: Performed By: #### L 502.0500, L500.4050, L501.9985, L3100.5310 #### [facility] [address] [place], [address] Performed By: #### L 500.4100, L500.3400 ####[facility] [address] [place], [address] AST [Catalytic activity/Vol] 32 U/L Normal <=37 [facility] Comment on above: Performed By: #### L 502.0500, L500.4050, L501.9985, L3100.5310 #### [facility] [address] [place], [address] Bilirubin [Mass/Vol] 0.33 mg/dL Normal 0.00-1.30 [facility] Comment on above: Performed By: #### L 502.0500, L500.4050, L501.9985, L3100.5310 #### [facility] [address] [place], [address] BUN/CRE 17.2 RATIO Normal 10-20 [facility] Comment on above: Performed By: #### L 502.0500, L500.4050, L501.9985, L3100.5310 #### [facility] [address] [place], [address] Calcium [Mass/Vol] 9.2 mg/dL Normal 7.6-11.0 [facility] Comment on above: Performed By: #### L 502.0500, L500.4050, L501.9985, L3100.5310 #### [facility] [address] [place], [address] Chloride [Moles/Vol] 101 mmol/L Normal 98-108 [facility] Comment on above: Performed By: #### L 502.0500, L500.4050, L501.9985, L3100.5310 #### [facility] [address] [place], [address] CO2 [Moles/Vol] 22.4 mmol/L Normal 21.0-32.0 [facility] Comment on above: Performed By: #### L 502.0500, L500.4050, L501.9985, L3100.5310 #### [facility] [address] [place], [address] Creatinine [Mass/Vol] 0.98 mg/dL Normal 0.70-1.20 [facility] Comment on above: Performed By: #### L 502.0500, L500.4050, L501.9985, L3100.5310 #### [facility] [address] [place], [address] GAP 14 Normal 5-15 [facility] Comment on above: Performed By: #### L 502.0500, L500.4050, L501.9985, L3100.5310 #### [facility] [address] [place], [address] GFR/1.73 sq M.predicted among non-blacks MDRD (S/P/Bld) [Vol rate/Area] 87 mL/min/{1.73_m2} Normal >60 [facility] Comment on above: Result Comment: mL/m in/1.73m2 CKD-EPI Creatinine Equation (2020) Performed By: #### L 502.0500, L500.4050, L501.9985, L3100.5310 #### [facility] [address] [place], [address] Globulin (S) [Mass/Vol] 2.3 g/dL Normal 2.2-4.2 [facility] Comment on above: Performed By: #### L 502.0500, L500.4050, L501.9985, L3100.5310 #### [facility] [address] [place], [address] Performed By: #### L 500.4100, L500.3400 ####[facility] [address] [place], [address] Glucose [Mass/Vol] 209 mg/dL High 70-99 [facility] Comment on above: Performed By: #### L 502.0500, L500.4050, L501.9985, L3100.5310 #### [facility] [address] [place], [address] Potassium [Moles/Vol] 3.6 mmol/L Normal 3.3-5.1 [facility] Comment on above: Performed By: #### L 502.0500, L500.4050, L501.9985, L3100.5310 #### [facility] [address] [place], [address] Sodium [Moles/Vol] 138 mmol/L Normal 133-145 [facility] Comment on above: Performed By: #### L 502.0500, L500.4050, L501.9985, L3100.5310 #### [facility] [address] [place], [address] T PROT 6.5 g/dL Normal 5.9-8.4 [facility] Comment on above: Performed By: #### L 502.0500, L500.4050, L501.9985, L3100.5310 #### [facility] [address] [place], [address] Performed By: #### L 500.4100, L500.3400 ####[facility] [address] [place], [address] Urea nitrogen [Mass/Vol] 17 mg/dL Normal 4-19 [facility] Comment on above: Performed By: #### L 502.0500, L500.4050, L501.9985, L3100.5310 #### [facility] [address] [place], [address] Free testosterone percentage Ordered By: Pietro Turner on 06-15-2025 Testosterone Free/Testosterone.tota l [Mass fraction] 2.41 % 1.50-4.20 [facility] Comment on above: Performed at: - [address] [id number] Director: Geovanny Moore PhD, Phone: [phone] at: [address] [id number] Director: Lyle Alves MD, Phone: [phone] Glomerular filtration rate ( GFR) estimation/1.73 sq m using serum, plasma, or whole bOrdered By: Pietro Turner on 06-15-2025 GFR/1.73 sq M.predicted among non-blacks MDRD (S/P/Bld) [Vol rate/Area] 87 mL/min/{1.73_m2} >60 [facility] Comment on above: mL/min/1.73m2 CKD-EP I Creatinine Equation (2020) Hemoglobin A1con 06-15-2025 HbA1c (Bld) [Mass fraction] 5.9 % High <=5.6 [facility] Comment on above: Result Comment: Norm al < 5.7 % Prediabetic 5.7 - 6.4 % Diabetic >or= 6.5 % Please note range changes. Performed By: #### L 502.0500, L500.4050, L501.9985, L3100.5310 #### [facility] [address] [place], [address] Hemoglobin A1c percentageOrd ered By: Pietro Turner on 06-15-2025 HbA1c (Bld) [Mass fraction] 5.9 % High <5.7 [facility] Comment on above: Normal < 5.7 % Predi abetic 5.7 - 6.4 % Diabetic >or= 6.5 % Please note range changes. LDL calc ser/plasOrdered By: Jocelyne Dickey on 06-15-2025 Cholesterol in LDL [Mass/Vol] -34 mg/dL [facility] Comment on above: Npcgylozub=084-691 m g/dL & Higher Mryl=165 mg/dL or greaterFriedwald Equation for LDL-C Laboratory - Chemistry and C hemistry - challengeOrdered By: Jocelyne Dickey on 06-15-2025 AST [Catalytic activity/Vol] 33 U/L <38 [facility] Lipid Profileon 06-15-2025 CHOL:HDL 1.83 Normal [facility] Comment on above: Performed By: #### L 502.0500, L500.4050, L501.9985, L3100.5310 #### [facility] [address] [place], [address] Cholesterol [Mass/Vol] 78 mg/dL Normal <=200 [facility] Comment on above: Result Comment: Chol esterol level, Desirable <200 mg/dL Borderline high cholesterol 200-239 mg/dL High cholesterol >=240 mg/dL Recommendations of the NCEP Adult Treatment Panel for the following risk-cutoff thresholds for the [place] population. Performed By: #### L 502.0500, L500.4050, L501.9985, L3100.5310 #### [facility] [address] [place], [address] Cholesterol in HDL [Mass/Vol] 43 mg/dL Normal [facility] Comment on above: Result Comment: Anna onal Cholesterol Education Program (NCEP) guidelines: <40 mg/dL: Low HDL-cholesterol (major risk factor for CHD) >= 60 mg/dL: High HDL-cholesterol (negative risk factor for CHD) HDL-cholesterol is affected by a number of factors, e.g. smoking, exercise, hormones, sex and age. Performed By: #### L 502.0500, L500.4050, L501.9985, L3100.5310 #### [facility] [address] [place], [address] Cholesterol in LDL [Mass/Vol] -34 mg/dL Normal [facility] Comment on above: Result Comment: Bord cplljw=662-263 mg/dL Higher Cmwq=547 mg/dL or greater Friedwald Equation for LDL-C Performed By: #### L 502.0500, L500.4050, L501.9985, L3100.5310 #### [facility] [address] [place], [address] Cholesterol in VLDL [Mass/Vol] 69 mg/dL High 5-40 [facility] Comment on above: Performed By: #### L 502.0500, L500.4050, L501.9985, L3100.5310 #### [facility] [address] [place], [address] Triglyceride [Mass/Vol] 346 mg/dL High [facility] Comment on above: Result Comment: The drugs N-Acetylcysteine and Metamizole may falsely depress this assay. Normal range: <150 mg/dL Borderline High: 150-199 mg/dL High: 200-499 mg/dL Very High: >500 mg/dL Performed By: #### L 502.0500, L500.4050, L501.9985, L3100.5310 #### [facility] [address] [place], [address] Liver Profileon 06-15-2025 ALK PHOS 113 U/L Normal 40-129 [facility] Comment on above: Performed By: #### L 500.4100, L500.3400 ####[facility] [address] [place], [address] AST [Catalytic activity/Vol] 33 U/L Normal <=37 [facility] Comment on above: Performed By: #### L 500.4100, L500.3400 ####[facility] [address] [place], [address] Bilirubin [Mass/Vol] 0.35 mg/dL Normal 0.00-1.30 [facility] Comment on above: Performed By: #### L 500.4100, L500.3400 ####[facility] [address] [place], [address] Bilirubin.direct [Mass/Vol] 0.19 mg/dL Normal 0.00-0.30 [facility] Comment on above: Performed By: #### L 500.4100, L500.3400 ####[facility] [address] [place], [address] Microalbumin,Random Urineon 06-15-2025 MICROALBUMIN,UR 13.9 mg/L Normal <20 mg/L [facility] Comment on above: Performed By: #### L 502.0500, L500.4050, L501.9985, L3100.5310 #### [facility] [place], [address] No Panel InformationOrdered By: Jocelyne Dickey on 06-15-2025 33 U/L <38 [facility] Potassium measurement (mass/ volume)Ordered By: Pietro Turner on 06-15-2025 Potassium (Unsp spec) [Mass/Vol] 3.6 mmol/L 3.3-5.1 [facility] Screening total cholesterol/ high density lipoprotein (HDL) cholesterol ratioOrdered By: Jocelyne Dickey on 06-15-2025 Cholesterol.total/Chol esterol in HDL [Mass ratio] 1.83 {ratio} [facility] Serum creatinine measurement (mass/volume)Ordered By: Pietro Turner on 06-15-2025 Creatinine [Mass/Vol] 0.98 mg/dL 0.70-1.20 [facility] Serum globulin measurementOr dered By: Jocelyne Dickey on 06-15-2025 Globulin (S) [Mass/Vol] 2.3 g/dL 2.2-4.2 [facility] Serum glucose measurement (m ass/volume)Ordered By: Pietro Turner on 06-15-2025 Glucose [Mass/Vol] 209 mg/dL High 70-99 [facility] Serum or plasma alanine carrillo otransferase (ALT) measurementOrdered By: Jocelyne Dickey on 06-15-2025 ALT [Catalytic activity/Vol] 33 U/L <47 [facility] Serum or plasma albumin michelle urement (mass/volume)Ordered By: Jocelyne iDckey on 06-15-2025 Albumin [Mass/Vol] 4.2 g/dL 3.4-4.8 [facility] Serum or plasma albumin/glob ulin mass ratioOrdered By: Pietro Turner on 06-15-2025 Albumin/Globulin [Mass ratio] 1.9 {ratio} 0.9-2.4 [facility] Serum or plasma alkaline andres sphatase measurementOrdered By: Jocelyne Dickey on 06-15-2025 ALP [Catalytic activity/Vol] 113 U/L 40-129 [facility] Serum or plasma calcium michelle urement (mass/volume)Ordered By: Pietro Turner on 06-15-2025 Calcium [Mass/Vol] 9.2 mg/dL 7.6-11.0 [facility] Serum or plasma cholesterol in HDL measurement (mass/volume)Ordered By: Jocelyne Dickey on 06-15-2025 Cholesterol in HDL [Mass/Vol] 43 mg/dL >40 [facility] Comment on above: National Cholesterol Education Program (NCEP) guidelines:<40 mg/dL: Low HDL-cholesterol (major risk factor for CHD)>= 60 mg/dL: High HDL-cholesterol (negative risk factor for CHD)HDL-cholesterol is affected by a number of factors, e.g. smoking, exercise, hormones, sex and age. Serum or plasma cholesterol measurement (mass/volume)Ordered By: Jocelyne Dickey on 06-15-2025 Cholesterol [Mass/Vol] 78 mg/dL <201 [facility] Comment on above: Cholesterol level, D esirable <200 mg/dLBorderline high cholesterol 200-239 mg/dLHigh cholesterol >=240 mg/dLRecommendations of the NCEP Adult Treatment Panel for the following risk-cutoff thresholds for the [place] population. Serum or plasma free testost erone measurement (mass/volume)Ordered By: Pietro Turner on 06-15-2025 Testosterone Free [Mass/Vol] 10.85 ng/dL 5.00-21.00 [facility] Serum or plasma urea nitroge n measurement (mass/volume)Ordered By: Pietro Turner on 06-15-2025 Urea nitrogen [Mass/Vol] 17 mg/dL 4-19 [facility] Sodium levelOrdered By: Carmen Turner on 06-15-2025 Sodium [Moles/Vol] 138 mmol/L 133-145 [facility] Testosterone, totalOrdered B y: Pietro Turner on 06-15-2025 Testosterone [Mass/Vol] 450 ng/dL 264-916 [facility] Comment on above: Adult male reference interval is based on a population ofhealthy nonobese males (BMI <30) between 19 and 39 yearsold. chava Cabrera.al. JCEM 2017,102;9638-5742. PMID:[id number]. Total proteinOrdered By: Adalberto Dickey on 06-15-2025 Protein [Mass/Vol] 6.5 g/dL 5.9-8.4 [facility] Triglycerides measurementOrd ered By: Jocelyne Dickey on 06-15-2025 Triglyceride [Mass/Vol] 346 mg/dL High <199 [facility] Comment on above: The drugs N-Acetylcy steine and Metamizole may falsely depress this assay. Normal range: <150 mg/dLBorderline High: 150-199 mg/dLHigh: 200-499 mg/dLVery High: >500 mg/dL Urine albumin measurement wi th detection limit of 20 mg/L or less (mass/volume)Ordered By: Pietro Turner on 06-15-2025 Albumin DL <= 20 mg/L (U) [Mass/Vol] 13.9 mg/L <20 mg/L [facility] Bilirubin Test strip Ql (U)O rdered By: Pietro Turner on 05-18-2025 Bilirubin Ql (U) Negative Negative [facility] Ketones Test strip Ql (U)Ord ered By: Pietro Turner on 05-18-2025 Ketones Ql (U) Negative Negative [facility] - Chemistry and C hemistry - challengeOrdered By: Pietro Turner on 05-18-2025 Bilirubin Ql (U) Negative [facility] Glucose Ql (U) Negative [facility] Ketones Ql (U) Negative [facility] pH (U) 6.0 [pH] [facility] Specific gravity (U) [Rel density] 1.025 [facility] Urobilinogen (U) [Mass/Vol] 0.2670240 mg/dL [facility] - Hematology and Cell countsOrdered By: Pietro Turner on 05-18-2025 Hemoglobin Ql (U) Negative [facility] - Specimen inform ationOrdered By: Pietro Turner on 05-18-2025 Clarity (U) Clear [facility] Color (U) YELLOW [facility] - UrinalysisOrder ed By: Pietro Turner on 05-18-2025 Nitrite Ql (U) Negative [facility] Protein Ql (U) Negative [facility] MR/BMSJanel 05-18-2025 MR/BMS.TIFFANIE [facility] [address] [place] [address] OFFICE VISIT Date of Service: 05/18/25 MR#: [id number] Acct: [id number] Name: ALIX LEE Rep #: [id number] : 1960 Provider: Dr. Pietro ram MD Age/Sex: 65/M Location: [facility] [place] Status: Signed Intake Vital Signs 04/27/25 [...] Reasons: Possible UTI Chief Complaint: Possible UTI Unionmelt Operator Required: No Accompanied by: Self Is patient in pain?: No Allergies Penicillins (PCN) Allergy (Verified 05/18/25 11:36) Other Byyhpff-BVI-XmL Reductase Inhibitor Adverse Reaction (Intermediate, Verified 05/18/25 11:36) myalgias lisinopril Adverse Reaction (Verified 05/18/25 11:36) cough spironolactone Adverse Reaction (Verified 05/18/25 11:36) elevated blood sugar Medications ???Medication ???Instructions ???Recorded ???Confirmed ???Type needle (disp) 18 G 18 gauge x 1 #100 ea 05/22/22 05/18/25 Rx (BD Regular Bevel [place]) flash glucose scanning reader #1 ea 02/05/24 05/18/25 Rx (FreeStyle Jean 2 [place]) cholecalciferol (vitamin D3) 125 5,000 unit PO [...] mg PO QHS 05/18/25 05/18/25 His tory [facility] Medical History (Updated 05/18/25 @ 13:30 by [...] pulmonary arterial hypertension Atherosclerotic heart disease of [place] coronary artery with other forms of angina [...] placement (06/30 (more content not included)... Normal [facility] Microscopic analysis of urin e for red blood cells (RBC)Ordered By: Pietro Turner on 05-18-2025 Microscopic analysis of urine for red blood cells (RBC) 0 SEEN /hpf 0-5 [facility] Mucus LM Ql (Urine sed)Order ed By: Pietro Turner on 05-18-2025 Mucus Ql (Urine sed) 0 SEEN /hpf [facility] Nitrite Test strip Ql (U)Ord ered By: Pietro Turner on 05-18-2025 Nitrite Ql (U) Negative Negative [facility] No Panel InformationOrdered By: Pietro Turner on 05-18-2025 Urine Leukocytes Negatve [facility] Urine Non-Hemolyzed Blood [facility] YELLOW [facility] Clear [facility] Negative [facility] 1.025 [facility] 6.0 [facility] 0.2 mg/dL [facility] Negatve [facility] Protein Test strip Ql (U)Ord ered By: Pietro Turner on 05-18-2025 Protein Ql (U) 15 mg/dl High Negative [facility] Squamous epithelial cells de tection in urine sediment by light microscopyOrdered By: Pietro Turner on 05-18-2025 Epithelial cells.squamous LM Ql (Urine sed) 0-5 SEEN /hpf 0-5 [facility] Urinalysis, Completeon 05-18 EPI,SQUAMOUS 0-5 SEEN Normal 0-5 [facility] Comment on above: Order Comment: ADITHYA CTOR TO SPECIFY Performed By: #### L 502.0500, L500.4050, L501.9985, L3100.5310 #### [facility] [address] [place], [address] WBC 0-5 SEEN Normal 0-5 [facility] Comment on above: Order Comment: ADITHYA CTOR TO SPECIFY Performed By: #### L 502.0500, L500.4050, L501.9985, L3100.5310 #### [facility] [address] [place], [address] BACTERIA 0 SEEN Normal None Seen [facility] Comment on above: Order Comment: ADITHYA CTOR TO SPECIFY Performed By: #### L 502.0500, L500.4050, L501.9985, L3100.5310 #### [facility] [address] [place], [address] Mucus Ql (Urine sed) 0 SEEN Normal [facility] Comment on above: Order Comment: ADITHYA CTOR TO SPECIFY Performed By: #### L 502.0500, L500.4050, L501.9985, L3100.5310 #### [facility] [address] [place], [address] RBC 0 SEEN Normal 0-5 [facility] Comment on above: Order Comment: ADITHYA CTOR TO SPECIFY Performed By: #### L 502.0500, L500.4050, L501.9985, L3100.5310 #### [facility] [address] [place], [address] Urine clarityOrdered By: Britni Turner on 05-18-2025 Clarity (U) Sl. Cloudy Clear [facility] Urine color determinationOrd ered By: Pietro Turner on 05-18-2025 Color (U) Yellow Yellow [facility] Urine glucose detectionOrder ed By: Pietro Turner on 05-18-2025 Glucose Ql (U) Normal mg/dl Normal [facility] Urine leukocyte esterase det ection by dipstickOrdered By: Pietro Turner on 05-18-2025 Leukocyte esterase Test strip Ql (U) Negative Negative [facility] Urine pHOrdered By: Pietro whittaker on 05-18-2025 pH (U) 6.0 [pH] 5.0 - 8.0 [facility] Urine sediment bacteria coun t by microscopy (number/high power field)Ordered By: Pietro Turner on 05-18-2025 Bacteria LM.HPF (Urine sed) [#/Area] 0 /[HPF] None Seen [facility] Urine specific gravity measu rementOrdered By: Pietro Turner on 05-18-2025 Specific gravity (U) [Rel density] 1.020 1.002-1.03 0 [facility] Urine urobilinogen measureme ntOrdered By: Pietro Turner on 05-18-2025 Urobilinogen Ql (U) Normal mg/dl Normal [facility] White blood cell countOrdere d By: Pietro Turner on 05-18-2025 White blood cell count 0-5 SEEN /hpf 0-5 [facility] CNOVon 05-14-2025 CNOV Office Visit ([id number]) ALIX LEE ([id number]) 1960 [place] Date Time Provider Department 05/14/25 2:00 PM DIOGENES SHERMAN [id number] During your visit today, we recorded the following information about you: Pulse Blood pressure 78/minute 164/92 Diogenes Sherman, BLISTER PACKAGING MACHINE OPERATOR.FINISHING SUPERVISOR PLASTIC SHEETS 05/14/2025 4:01 PM Signed [facility] NEW PATIENT HISTORY [...] and priapism. Advised patient to consult with animal biologist regarding discontinuation of isosorbide before initiating PDE5 inhibitors. Alternative treatments discussed include vacuum erection devices and intracavernosal injections. Patient to follow up with animal biologist and notify us once cleared to discontinue [...] does not take chances due to past PA. - Recent blood pressure reading was 164/92 [...] swelling, b (more content not included)... Normal [facility] MR/BMS.IMBon 04-27-2025 MR/BMS.IMB [facility] [address] [place] [address] OFFICE VISIT Date of Service: 04/27/25 MR#: [id number] Acct: [id number] Name: ALIX LEE Rep #: [id number] : 1960 Provider: Dr. Pietro ram MD Age/Sex: 65/M Location: [facility] Status: Signed Intake Vital Signs 01/01/25 16:10 [...] Reasons: POSSIBLE PNEUMONIA Chief Complaint: Possible pneumonia Unionmelt Operator Required: No Accompanied by: Self Is patient in pain?: Yes (Sore throat) Pain scale (1-10): 2 Allergies Penicillins (PCN) Allergy (Verified 04/27/25 10:27) Other Lchrclz-IPN-WkK Reductase Inhibitor Adverse Reaction (Intermediate, Verified 04/27/25 10:27) myalgias lisinopril Adverse Reaction (Verified 04/27/25 10:27) cough spironolactone Adverse Reaction (Verified 04/27/25 10:27) elevated blood sugar Medications ???Medication ???Instructions ???Recorded ???Confirmed ???Type needle (disp) 18 G 18 gauge x 1 #100 ea 05/22/22 04/27/25 Rx (BD Regular Bevel [place]) flash glucose scanning reader #1 ea 02/05/24 04/27/25 Rx (FreeStyle Jean 2 [place]) cholecalciferol (vitamin D3) 125 5,000 unit PO [...] pulmonary arterial hypertension Atherosclerotic heart disease of [place] coronary artery with other forms of angina pectoris History of non-ST elevation myocardial infarction (NSTEMI) (07/26/20) Essential hypertension Type 2 diabetes mellitus Nausea Fatigue Urinary hesitancy Liver disease Hypoglycemia Hyperlipemia Gout GERD (gastroesophageal reflux disease) Anxiety and depression Bone fracture Anemia History of alcohol abuse Schizoaffective disorder Surgical History (more content not included)... Normal [facility] Testosterone, Total / Freeon 02-23-2025 TESTOSTER,FREE 11.06 ng/dL Normal 5.00-21.00 [facility] Comment on above: Order Comment: N Performed By: #### L 502.0500, L500.4050, L501.9985, L3100.5310 #### [facility] [address] [place], [place], [id number] TESTOSTER,TOTAL 280 ng/dL Normal 264-916 [facility] Comment on above: Order Comment: N Result Comment: Adul t male reference interval is based on a population of healthy nonobese males (BMI <30) between 19 and 39 years old. chava Cabrera.al. JCEM 2017,102;8513-1662. PMID: [id number]. Performed By: #### L 502.0500, L500.4050, L501.9985, L3100.5310 #### [facility] [address] [place], [place], [address] TESTOSTERONE,%F 3.95 Normal 1.50-4.20 [facility] Comment on above: Order Comment: N Result Comment: Perf ormed at: - [facility] [address] [id number] Director Trust: Geovanny Moore PhD, Phone: [phone] Performed at: - [facility] [address] [id number] Director Trust: Lyle Alves MD, Phone: [phone] Performed By: #### L 502.0500, L500.4050, L501.9985, L3100.5310 #### [facility] [address] [place], [place], [address] ALP [Catalytic activity/Vol] Ordered By: Pietro Turner on 02-09-2025 Serum or plasma alkaline phosphatase measurement 91 U/L 40-129 [facility] ALT [Catalytic activity/Vol] Ordered By: Pietro Turner on 02-09-2025 Serum or plasma alanine aminotransferase (ALT) measurement 18 U/L <47 [facility] Absolute lymphocyte countOrd ered By: Pietro Turner on 02-09-2025 Lymphocytes Auto (Unsp spec) [#/Vol] 1.36 10*3/uL 0.83-4.51 [facility] Absolute neutrophil countOrd ered By: Pietro Turner on 02-09-2025 Neutrophils (Bld) [#/Vol] 5.2 10*3/uL 2.0-7.7 [facility] Absolute neutrophil count 5.2 X10^3/uL 2.0-7.7 [facility] Albumin [Mass/Vol]Ordered By : Pietro Turner on 02-09-2025 Serum or plasma albumin measurement (mass/volume) 4.6 g/dL 3.4-4.8 [facility] Albumin/Globulin [Mass ratio ]Ordered By: Pietro Turner on 02-09-2025 Serum or plasma albumin/globulin mass ratio 2.0 RATIO 0.9-2.4 [facility] Anion gap [Moles/Vol]Ordered By: Pietro Turner on 02-09-2025 Anion gap in Serum or Plasma 12 03-12 [facility] Anion gap in Serum or Plasma Ordered By: Pietro Turner on 02-09-2025 Anion gap [Moles/Vol] 12 mmol/L 03-12 [facility] Automated lymphocyte count a s percentage of total leukocytesOrdered By: Pietro Turner on 02-09-2025 Lymphocytes/100 WBC Auto (Unsp spec) 18.6 % Low 19-41 [facility] BUN/creatinine ratioOrdered By: Pietro Turner on 02-09-2025 Urea nitrogen/Creatinine [Mass ratio] 15.2 mg/mg 10-20 [facility] BUN/creatinine ratio 15.2 RATIO 10-20 [facility] Basophil percentageOrdered B y: Pietro Turner on 02-09-2025 Basophils/100 WBC (Bld) 0.5 % 0-1 [facility] Basophil percentage 0.5 % 0-1 [facility] Bilirubin, totalOrdered By: Pietro Turner on 02-09-2025 Bilirubin [Mass/Vol] 0.45 mg/dL 0.00-1.30 [facility] Bilirubin, total 0.45 mg/dL 0.00-1.30 [facility] CBC W/Diff, Automatedon 01-27 Absolute Lymph 1.36 X10 3/uL Normal 0.83-4.51 [facility] Comment on above: Performed By: #### L 502.0500, L500.4050, L501.9985, L3100.5310 #### [facility] [address] [place], [address] Absolute Neut 5.2 X10 3/uL Normal 2.0-7.7 [facility] Comment on above: Performed By: #### L 502.0500, L500.4050, L501.9985, L3100.5310 #### [facility] [address] [place], [address] Basophils/100 WBC (Bld) 0.5 % Normal 0-1 [facility] Comment on above: Performed By: #### L 502.0500, L500.4050, L501.9985, L3100.5310 #### [facility] [address] [place], [address] Eosinophils/100 WBC (Bld) 2.7 % Normal 0-5 [facility] Comment on above: Performed By: #### L 502.0500, L500.4050, L501.9985, L3100.5310 #### [facility] [address] [place], [address] Erythrocyte distribution width (RBC) [Ratio] 12.7 % Normal 11.6-14.6 [facility] Comment on above: Performed By: #### L 502.0500, L500.4050, L501.9985, L3100.5310 #### [facility] [address] [place], [address] Hematocrit (Bld) [Volume fraction] 37.5 % Low 40-54 [facility] Comment on above: Performed By: #### L 502.0500, L500.4050, L501.9985, L3100.5310 #### [facility] [address] [place], [address] Hemoglobin (Bld) [Mass/Vol] 13.2 g/dL Normal 13.0-16.5 [facility] Comment on above: Performed By: #### L 502.0500, L500.4050, L501.9985, L3100.5310 #### [facility] [address] [place], [address] IG% 0.400 Normal 0.0-0.9 [facility] Comment on above: Result Comment: IG% - Immature Granulocytes (promyelocytes, myelocytes and metamyelocytes) > 1% indicates that a LEFT SHIFT is Present. Performed By: #### L 502.0500, L500.4050, L501.9985, L3100.5310 #### [facility] [address] [place], [address] Lymphocytes/100 WBC (Bld) 18.6 % Low 19-41 [facility] Comment on above: Performed By: #### L 502.0500, L500.4050, L501.9985, L3100.5310 #### [facility] [address] [place], [address] MCH (RBC) [Entitic mass] 31.1 pg Normal 27.0-32.0 [facility] Comment on above: Performed By: #### L 502.0500, L500.4050, L501.9985, L3100.5310 #### [facility] [address] [place], [address] MCHC (RBC) [Mass/Vol] 35.2 g/dL Normal 32-36 [facility] Comment on above: Performed By: #### L 502.0500, L500.4050, L501.9985, L3100.5310 #### [facility] [address] [place], [address] MCV (RBC) [Entitic vol] 88.4 fL Normal 80-94 [facility] Comment on above: Performed By: #### L 502.0500, L500.4050, L501.9985, L3100.5310 #### [facility] [address] [place], [address] Monocytes/100 WBC (Bld) 7.0 % Normal 0-10 [facility] Comment on above: Performed By: #### L 502.0500, L500.4050, L501.9985, L3100.5310 #### [facility] [address] [place], [address] Neutrophils/100 WBC (Bld) 70.8 % High 47-70 [facility] Comment on above: Performed By: #### L 502.0500, L500.4050, L501.9985, L3100.5310 #### [facility] [address] [place], [address] Nucleated RBC (Bld) [#/Vol] 0 10*3/uL Normal 0-5 [facility] Comment on above: Performed By: #### L 502.0500, L500.4050, L501.9985, L3100.5310 #### [facility] [address] [place], [address] Platelet mean volume (Bld) [Entitic vol] 9.3 fL Normal 6.2-12.0 [facility] Comment on above: Performed By: #### L 502.0500, L500.4050, L501.9985, L3100.5310 #### [facility] [address] [place], [address] Platelets (Bld) [#/Vol] 204 10*3/uL Normal 150-450 [facility] Comment on above: Performed By: #### L 502.0500, L500.4050, L501.9985, L3100.5310 #### [facility] [address] [place], [address] RBC (Bld) [#/Vol] 4.24 10*6/uL Low 4.6-6.2 [facility] Comment on above: Performed By: #### L 502.0500, L500.4050, L501.9985, L3100.5310 #### [facility] [address] [place], [address] RDW SD 39.9 fl Normal 35.1-43.9 [facility] Comment on above: Performed By: #### L 502.0500, L500.4050, L501.9985, L3100.5310 #### [facility] [address] [place], [address] WBC (Bld) [#/Vol] 7.3 10*3/uL Normal 4.4-11.0 [facility] Comment on above: Performed By: #### L 502.0500, L500.4050, L501.9985, L3100.5310 #### [facility] [address] [place], [address] Calcium [Mass/Vol]Ordered By : Pietro Turner on 02-09-2025 Serum or plasma calcium measurement (mass/volume) 9.9 mg/dL 7.6-11.0 [facility] Calculated very low density lipoprotein (VLDL) cholesterol measurementOrdered By: Pietro Turner on 02-09-2025 Calculated very low density lipoprotein (VLDL) cholesterol measurement 39 mg/dL -40 [facility] Calculated very low density lipoprotein (VLDL) cholesterol measurement 39 mg/dL -40 [facility] Carbon dioxide, total [Moles /volume] in Central venous bloodOrdered By: Pietro Turner on 02-09-2025 CO2 [Moles/Vol] 23.7 mmol/L 21.0-32.0 [facility] Carbon dioxide, total [Moles/volume] in Central venous blood 23.7 mmol/L 21.0-32.0 [facility] Chloride assayOrdered By: Rohini Turner on 02-09-2025 Chloride [Moles/Vol] 99 mmol/L 98-108 [facility] Chloride assay 99 mmol/L 98-108 [facility] Cholesterol [Mass/Vol]Ordere d By: Pietro Turner on 02-09-2025 Serum or plasma cholesterol measurement (mass/volume) 170 mg/dL <201 [facility] Cholesterol in HDL [Mass/Vol ]Ordered By: Pietro Turner on 02-09-2025 Serum or plasma cholesterol in HDL measurement (mass/volume) 41 mg/dL >40 [facility] Cobalamin (Vitamin B12) [Mas s/Vol]Ordered By: Pietro Turner on 02-09-2025 Vitamin B12 ser/plas 608 pg/mL 180-914 [facility] Comprehensive Metabolic Prof ilon 02-09-2025 Albumin [Mass/Vol] 4.6 g/dL Normal 3.4-4.8 [facility] Comment on above: Performed By: #### L 502.0500, L500.4050, L501.9985, L3100.5310 #### [facility] [address] [place], [address] Albumin/Globulin [Mass ratio] 2.0 {ratio} Normal 0.9-2.4 [facility] Comment on above: Performed By: #### L 502.0500, L500.4050, L501.9985, L3100.5310 #### [facility] [address] [place], [address] ALK PHOS 91 U/L Normal 40-129 [facility] Comment on above: Performed By: #### L 502.0500, L500.4050, L501.9985, L3100.5310 #### [facility] [address] [place], [address] ALT [Catalytic activity/Vol] 18 U/L Normal <=46 [facility] Comment on above: Performed By: #### L 502.0500, L500.4050, L501.9985, L3100.5310 #### [facility] [address] [place], [address] AST [Catalytic activity/Vol] 21 U/L Normal <=37 [facility] Comment on above: Performed By: #### L 502.0500, L500.4050, L501.9985, L3100.5310 #### [facility] [address] [place], [address] Bilirubin [Mass/Vol] 0.45 mg/dL Normal 0.00-1.30 [facility] Comment on above: Performed By: #### L 502.0500, L500.4050, L501.9985, L3100.5310 #### [facility] [address] [place], [address] BUN/CRE 15.2 RATIO Normal 10-20 [facility] Comment on above: Performed By: #### L 502.0500, L500.4050, L501.9985, L3100.5310 #### [facility] [address] [place], [address] Calcium [Mass/Vol] 9.9 mg/dL Normal 7.6-11.0 [facility] Comment on above: Performed By: #### L 502.0500, L500.4050, L501.9985, L3100.5310 #### [facility] [address] [place], [address] Chloride [Moles/Vol] 99 mmol/L Normal 98-108 [facility] Comment on above: Performed By: #### L 502.0500, L500.4050, L501.9985, L3100.5310 #### [facility] [address] [place], [address] CO2 [Moles/Vol] 23.7 mmol/L Normal 21.0-32.0 [facility] Comment on above: Performed By: #### L 502.0500, L500.4050, L501.9985, L3100.5310 #### [facility] [address] [place], [address] Creatinine [Mass/Vol] 0.95 mg/dL Normal 0.70-1.20 [facility] Comment on above: Performed By: #### L 502.0500, L500.4050, L501.9985, L3100.5310 #### [facility] [address] [place], [address] GAP 12 Normal 5-15 [facility] Comment on above: Performed By: #### L 502.0500, L500.4050, L501.9985, L3100.5310 #### [facility] [address] [place], [address] GFR/1.73 sq M.predicted among non-blacks MDRD (S/P/Bld) [Vol rate/Area] 91 mL/min/{1.73_m2} Normal >60 [facility] Comment on above: Result Comment: mL/m in/1.73m2 CKD-EPI Creatinine Equation (2020) Performed By: #### L 502.0500, L500.4050, L501.9985, L3100.5310 #### [facility] [address] [place], [address] Globulin (S) [Mass/Vol] 2.3 g/dL Normal 2.2-4.2 [facility] Comment on above: Performed By: #### L 502.0500, L500.4050, L501.9985, L3100.5310 #### [facility] [address] [place], [address] Glucose [Mass/Vol] 124 mg/dL High 70-99 [facility] Comment on above: Performed By: #### L 502.0500, L500.4050, L501.9985, L3100.5310 #### [facility] [address] [place], [address] Potassium [Moles/Vol] 4.2 mmol/L Normal 3.3-5.1 [facility] Comment on above: Performed By: #### L 502.0500, L500.4050, L501.9985, L3100.5310 #### [facility] [address] [place], [address] Sodium [Moles/Vol] 135 mmol/L Normal 133-145 [facility] Comment on above: Performed By: #### L 502.0500, L500.4050, L501.9985, L3100.5310 #### [facility] [address] [place], [address] T PROT 6.9 g/dL Normal 5.9-8.4 [facility] Comment on above: Performed By: #### L 502.0500, L500.4050, L501.9985, L3100.5310 #### [facility] [address] [place], [address] Urea nitrogen [Mass/Vol] 14 mg/dL Normal 4-19 [facility] Comment on above: Performed By: #### L 502.0500, L500.4050, L501.9985, L3100.5310 #### [facility] [address] [place], [address] Creatinine [Mass/Vol]Ordered By: Pietro Turner on 02-09-2025 Serum creatinine measurement (mass/volume) 0.95 mg/dL 0.70-1.20 [facility] Eosinophil percentageOrdered By: Pietro Turner on 02-09-2025 Eosinophils/100 WBC (Bld) 2.7 % 0-5 [facility] Eosinophil percentage 2.7 % 0-5 [facility] Erythrocyte distribution wid th (RBC) [Ratio]Ordered By: Pietro Turner on 02-09-2025 Erythrocyte distribution width ratio 12.7 % 11.6-14.6 [facility] Erythrocyte distribution width standard deviation 39.9 fl 35.1-43.9 [facility] Erythrocyte distribution wid th ratioOrdered By: Pietro Turner on 02-09-2025 Erythrocyte distribution width (RBC) [Ratio] 12.7 % 11.6-14.6 [facility] Erythrocyte distribution wid th standard deviationOrdered By: Pietro Turner on 02-09-2025 Erythrocyte distribution width (RBC) [Ratio] 39.9 fl 35.1-43.9 [facility] Free T3on 02-09-2025 Free T3 [Mass/Vol] 2.6 pg/mL Normal 2.18-3.98 [facility] Comment on above: Order Comment: N Performed By: #### L 502.0500, L500.4050, L501.9985, L3100.5310 #### [facility] [address] [place], [address] Free R8Hywcrqw By: Pietro schmitt on 02-09-2025 Free T3 [Mass/Vol] 2.6 pg/mL 2.18-3.98 [facility] Free T3 2.6 pg/mL 2.18-3.98 [facility] Free testosterone percentage Ordered By: Pietro Turner on 02-09-2025 Testosterone Free/Testosterone.tota l [Mass fraction] 3.95 % 1.50-4.20 [facility] Comment on above: Performed at: [address] [id number] Director: Geovanny Moore PhD, Phone: [phone] at: [facility] [id number] Director: Lyle Alves MD, Phone: [phone] GFR/1.73 sq M.predicted tuyet g non-blacks MDRD (S/P/Bld) [Vol rate/Area]Ordered By: Pietro Turner on 02-09-2025 Glomerular filtration rate (GFR) estimation/1.73 sq m using serum, plasma, or whole b 91 >60 [facility] Glomerular filtration rate ( GFR) estimation/1.73 sq m using serum, plasma, or whole bOrdered By: Pietro Turner on 02-09-2025 GFR/1.73 sq M.predicted among non-blacks MDRD (S/P/Bld) [Vol rate/Area] 91 mL/min/{1.73_m2} >60 [facility] Comment on above: mL/min/1.73m2 CKD-EP I Creatinine Equation (2020) Glucose [Mass/Vol]Ordered By : Pietro Turner on 02-09-2025 Serum glucose measurement (mass/volume) 124 mg/dL High 70-99 [facility] HbA1c (Bld) [Mass fraction]O rdered By: Pietro Turner on 02-09-2025 Hemoglobin A1c percentage 5.9 % High <5.7 [facility] Hematocrit Auto (Bld) [Volum e fraction]Ordered By: Pietro Turner on 02-09-2025 Hematocrit (Bld) [Volume fraction] 37.5 % Low 40-54 [facility] Automated blood hematocrit (percentage) 37.5 % Low 40-54 [facility] Hemoglobin A1con 02-09-2025 HbA1c (Bld) [Mass fraction] 5.9 % High <=5.6 [facility] Comment on above: Result Comment: Norm al < 5.7 % Prediabetic 5.7 - 6.4 % Diabetic >or= 6.5 % Please note range changes. Performed By: #### L 502.0500, L500.4050, L501.9985, L3100.5310 #### [facility] [address] [place] [address], [id number] Hemoglobin A1c percentageOrd ered By: Pietro Turner on 02-09-2025 HbA1c (Bld) [Mass fraction] 5.9 % High <5.7 [facility] Comment on above: Normal < 5.7 % Predi abetic 5.7 - 6.4 % Diabetic >or= 6.5 % Please note range changes. Hemoglobin measurementOrdere d By: Pietro Turner on 02-09-2025 Hemoglobin (Bld) [Mass/Vol] 13.2 g/dL 13.0-16.5 [facility] Hemoglobin measurement 13.2 g/dL 13.0-16.5 [facility] Immature granulocytes/100 WB C Auto (Bld)Ordered By: Pietro Turner on 02-09-2025 Immature granulocytes/100 WBC (Bld) 0.400 % 0.0-0.9 [facility] Comment on above: IG% - Immature Granu locytes (promyelocytes, myelocytes and metamyelocytes) > 1% indicates that a LEFT SHIFT is Present. Automated immature granulocyte percentage 0.400 % 0.0-0.9 [facility] LDL calc ser/plasOrdered By: Pietro Turner on 02-09-2025 Cholesterol in LDL [Mass/Vol] 90 mg/dL [facility] Comment on above: Sthdkrfmjx=631-618 m g/dL & Higher Adrg=261 mg/dL or greater LDL calc ser/plas 90 mg/dL [facility] - Chemistry and C hemistry - challengeOrdered By: Pietro Turner on 02-09-2025 AST [Catalytic activity/Vol] 21 U/L <38 [facility] Lipid Profileon 02-09-2025 CHOL:HDL 4.17 Normal [facility] Comment on above: Performed By: #### L 502.0500, L500.4050, L501.9985, L3100.5310 #### [facility] [address] [place], [place], [id number] Cholesterol [Mass/Vol] 170 mg/dL Normal <=200 [facility] Comment on above: Result Comment: Chol esterol level, Desirable <200 mg/dL Borderline high cholesterol 200-239 mg/dL High cholesterol >=240 mg/dL Recommendations of the NCEP Adult Treatment Panel for the following risk-cutoff thresholds for the [place] population. Performed By: #### L 502.0500, L500.4050, L501.9985, L3100.5310 #### [facility] [address] [place], [place], [address] Cholesterol in HDL [Mass/Vol] 41 mg/dL Normal [facility] Comment on above: Result Comment: Anna onal Cholesterol Education Program (NCEP) guidelines: <40 mg/dL: Low HDL-cholesterol (major risk factor for CHD) >= 60 mg/dL: High HDL-cholesterol (negative risk factor for CHD) HDL-cholesterol is affected by a number of factors, e.g. smoking, exercise, hormones, sex and age. Performed By: #### L 502.0500, L500.4050, L501.9985, L3100.5310 #### [facility] [address] [place], [address] Cholesterol in LDL [Mass/Vol] 90 mg/dL Normal [facility] Comment on above: Result Comment: Bord qatgpw=080-604 mg/dL Higher Iryx=133 mg/dL or greater Performed By: #### L 502.0500, L500.4050, L501.9985, L3100.5310 #### [facility] [address] [place], [address] Cholesterol in VLDL [Mass/Vol] 39 mg/dL Normal 5-40 [facility] Comment on above: Performed By: #### L 502.0500, L500.4050, L501.9985, L3100.5310 #### [facility] [address] [place], [address] Triglyceride [Mass/Vol] 195 mg/dL Normal [facility] Comment on above: Result Comment: The drugs N-Acetylcysteine and Metamizole may falsely depress this assay. Normal range: <150 mg/dL Borderline High: 150-199 mg/dL High: 200-499 mg/dL Very High: >500 mg/dL Performed By: #### L 502.0500, L500.4050, L501.9985, L3100.5310 #### [facility] [address] [place], [address] Lymphocytes Auto (Unsp spec) [#/Vol]Ordered By: Pietro Turner on 02-09-2025 Absolute lymphocyte count 1.36 X10^3/uL 0.83-4.51 [facility] Lymphocytes/100 WBC Auto (Un sp spec)Ordered By: Pietro Turner on 02-09-2025 Automated lymphocyte count as percentage of total leukocytes 18.6 % Low 19-41 [facility] MCV (RBC) [Entitic vol]Order ed By: Pietro Turner on 02-09-2025 MCV (mean corpuscular volume) determination 88.4 fL 80-94 [facility] MCV (mean corpuscular volume ) determinationOrdered By: Pietro Turner on 02-09-2025 MCV (RBC) [Entitic vol] 88.4 fL 80-94 [facility] Magnesiumon 02-09-2025 Magnesium [Mass/Vol] 2.2 mg/dL Normal 1.5-2.2 [facility] Comment on above: Performed By: #### L 502.0500, L500.4050, L501.9985, L3100.5310 #### [facility] [address] [facility] [place], [address] Magnesium (Unsp spec) [Mass/ Vol]Ordered By: Pietro Turner on 02-09-2025 Magnesium measurement (mass/volume) 2.2 mg/dL 1.5-2.2 [facility] Magnesium measurement (mass/ volume)Ordered By: Pietro Turner on 02-09-2025 Magnesium (Unsp spec) [Mass/Vol] 2.2 mg/dL 1.5-2.2 [facility] Mean corpuscular hemoglobin (MCH) determinationOrdered By: Pietro Turner on 02-09-2025 MCH (RBC) [Entitic mass] 31.1 pg 27.0-32.0 [facility] Mean corpuscular hemoglobin (MCH) determination 31.1 pg 27.0-32.0 [facility] Mean corpuscular hemoglobin concentration (MCHC) determinationOrdered By: Pietro Turner on 02-09-2025 MCHC (RBC) [Mass/Vol] 35.2 g/dL 32-36 [facility] Mean corpuscular hemoglobin concentration (MCHC) determination 35.2 g/dL -36 [facility] Mean platelet volume determi nationOrdered By: Pietro Turner on 02-09-2025 Platelet mean volume (Bld) [Entitic vol] 9.3 fL 6.2-12.0 [facility] Mean platelet volume determination 9.3 fl 6.2-12.0 [facility] Monocyte percentageOrdered B y: Pietro Turner on 02-09-2025 Monocytes/100 WBC (Bld) 7.0 % 0-10 [facility] Monocyte percentage 7.0 % 0-10 [facility] Neutrophil percentageOrdered By: Pietro Turner on 02-09-2025 Neutrophils/100 WBC (Bld) 70.8 % High 47-70 [facility] Neutrophil percentage 70.8 % High 47-70 [facility] No Panel InformationOrdered By: Pietro Turner on 02-09-2025 21 U/L <38 [facility] Nucleated red blood cell per centageOrdered By: Pietro Turner on 02-09-2025 Nucleated RBC/100 WBC (Bld) [Ratio] 0 % 0-5 [facility] Nucleated red blood cell percentage 0 % 0-5 [facility] PSA, total screeningOrdered By: Pietro Turner on 02-09-2025 PSA, total screening 0.31 ng/mL 0.02-4.00 [facility] PSA,Total - Annual Screenon 02-09-2025 PSA,TOT SCREEN 0.31 ng/mL Normal 0.02-4.00 [facility] Comment on above: Result Comment: This [...] #### L 502.0500, L500.4050, L501.9985, L3100.5310 #### [facility] [address] [place], [address] Platelet countOrdered By: Rohini Turner on 02-09-2025 Platelets (Bld) [#/Vol] 204 10*3/uL 150-450 [facility] Platelet count 204 K/mm3 150-450 [facility] Potassium (Unsp spec) [Mass/ Vol]Ordered By: Pietro Turner on 02-09-2025 Potassium measurement (mass/volume) 4.2 mmol/L 3.3-5.1 [facility] Potassium measurement (mass/ volume)Ordered By: Pietro Turner on 02-09-2025 Potassium (Unsp spec) [Mass/Vol] 4.2 mmol/L 3.3-5.1 [facility] RBC Auto (Bld) [#/Vol]Ordere d By: Pietro Turner on 02-09-2025 RBC (Bld) [#/Vol] 4.24 10*6/uL Low 4.6-6.2 [facility] Automated blood erythrocyte count 4.24 M/mm3 Low 4.6-6.2 [facility] Screening total cholesterol/ high density lipoprotein (HDL) cholesterol ratioOrdered By: Pietro Turner on 02-09-2025 Cholesterol.total/Chol esterol in HDL [Mass ratio] 4.17 {ratio} [facility] Screening total cholesterol/high density lipoprotein (HDL) cholesterol ratio 4.17 [facility] Serum creatinine measurement (mass/volume)Ordered By: Pietro Turner on 02-09-2025 Creatinine [Mass/Vol] 0.95 mg/dL 0.70-1.20 [facility] Serum globulin measurementOr dered By: Pietro Turner on 02-09-2025 Globulin (S) [Mass/Vol] 2.3 g/dL 2.2-4.2 [facility] Serum globulin measurement 2.3 g/dL 2.2-4.2 [facility] Serum glucose measurement (m ass/volume)Ordered By: Pietro Turner on 02-09-2025 Glucose [Mass/Vol] 124 mg/dL High 70-99 [facility] Serum or plasma alanine carrillo otransferase (ALT) measurementOrdered By: Pietro Turner on 02-09-2025 ALT [Catalytic activity/Vol] 18 U/L <47 [facility] Serum or plasma albumin michelle urement (mass/volume)Ordered By: Pietro Turner on 02-09-2025 Albumin [Mass/Vol] 4.6 g/dL 3.4-4.8 [facility] Serum or plasma albumin/glob ulin mass ratioOrdered By: Pietro Turner on 02-09-2025 Albumin/Globulin [Mass ratio] 2.0 {ratio} 0.9-2.4 [facility] Serum or plasma alkaline andres sphatase measurementOrdered By: Pietro Turner on 02-09-2025 ALP [Catalytic activity/Vol] 91 U/L 40-129 [facility] Serum or plasma calcium michelle urement (mass/volume)Ordered By: Pietro Turner on 02-09-2025 Calcium [Mass/Vol] 9.9 mg/dL 7.6-11.0 [facility] Serum or plasma cholesterol in HDL measurement (mass/volume)Ordered By: Pietro Turner on 02-09-2025 Cholesterol in HDL [Mass/Vol] 41 mg/dL >40 [facility] Comment on above: National Cholesterol Education Program (NCEP) guidelines:<40 mg/dL: Low HDL-cholesterol (major risk factor for CHD)>= 60 mg/dL: High HDL-cholesterol (negative risk factor for CHD)HDL-cholesterol is affected by a number of factors, e.g. smoking, exercise, hormones, sex and age. Serum or plasma cholesterol measurement (mass/volume)Ordered By: Pietro Turner on 02-09-2025 Cholesterol [Mass/Vol] 170 mg/dL <201 [facility] Comment on above: Cholesterol level, D esirable <200 mg/dLBorderline high cholesterol 200-239 mg/dLHigh cholesterol >=240 mg/dLRecommendations of the NCEP Adult Treatment Panel for the following risk-cutoff thresholds for the [place] population. Serum or plasma free testost erone measurement (mass/volume)Ordered By: Pietro Turner on 02-09-2025 Testosterone Free [Mass/Vol] 11.06 ng/dL 5.00-21.00 [facility] Serum or plasma urea nitroge n measurement (mass/volume)Ordered By: Pietro Turner on 02-09-2025 Urea nitrogen [Mass/Vol] 14 mg/dL 4-19 [facility] Sodium levelOrdered By: Carmen Turner on 02-09-2025 Sodium [Moles/Vol] 135 mmol/L 133-145 [facility] Sodium level 135 mmol/L 133-145 [facility] T4 Free Directon 02-09-2025 T4 FREE DIRECT 1.20 ng/dL Normal 0.76-1.46 [facility] Comment on above: Order Comment: N Performed By: #### L 502.0500, L500.4050, L501.9985, L3100.5310 #### [facility] [address] [place], [place], [id number] T4 freeOrdered By: Pietro schmitt on 02-09-2025 Free T4 [Mass/Vol] 1.20 ng/dL 0.76-1.46 [facility] T4 free 1.20 ng/dL 0.76-1.46 [facility] TSH DL <= 0.005 mIU/L QnOrde red By: Pietro Turner on 02-09-2025 TSH Qn 3.490 uIU/mL 0.300-4.20 0 [facility] Serum or plasma thyroid stimulating hormone (TSH) measurement by high sensitivity met 3.490 uIU/mL 0.300-4.20 0 [facility] Testosterone, totalOrdered B y: Pietro Turner on 02-09-2025 Testosterone [Mass/Vol] 280 ng/dL 264-916 [facility] Comment on above: Adult male reference interval is based on a population ofhealthy nonobese males (BMI <30) between 19 and 39 yearsold. chava Cabrera.al. JCEM 2017,102;1360-3868. PMID:[id number]. Thyroid Stim Hormone (TSH)on 02-09-2025 TSH 3.490 uIU/mL Normal 0.300-4.20 0 [facility] Comment on above: Performed By: #### L 502.0500, L500.4050, L501.9985, L3100.5310 #### [facility] [address] [place], [place], [id number] Total proteinOrdered By: Britni Turner on 02-09-2025 Protein [Mass/Vol] 6.9 g/dL 5.9-8.4 [facility] Total protein 6.9 g/dL 5.9-8.4 [facility] Triglycerides measurementOrd ered By: Pietro Turner on 02-09-2025 Triglyceride [Mass/Vol] 195 mg/dL <199 [facility] Comment on above: The drugs N-Acetylcy steine and Metamizole may falsely depress this assay. Normal range: <150 mg/dLBorderline High: 150-199 mg/dLHigh: 200-499 mg/dLVery High: >500 mg/dL Triglycerides measurement 195 mg/dL <199 [facility] Urea nitrogen [Mass/Vol]Orde red By: Pietro Turner on 02-09-2025 Serum or plasma urea nitrogen measurement (mass/volume) 14 mg/dL 4- [facility] Vitamin B12on 02-09-2025 Cobalamin (Vitamin B12) [Mass/Vol] 608 pg/mL Normal 180-914 [facility] Comment on above: Performed By: #### L 502.0500, L500.4050, L501.9985, L3100.5310 #### [facility] [address] [place], [place], [id number] Vitamin B12 ser/plasOrdered By: Pietro Turner on 02-09-2025 Cobalamin (Vitamin B12) [Mass/Vol] 608 pg/mL 180-914 [facility] Vitamin D, 25-hydroxyOrdered By: Pietro Turner on 02-09-2025 Vitamin D, 25-hydroxy 30.2 ng/mL 30-100 [facility] Vitamin D,25 Hydroxyon 02-09 Vitamin D 25-OH 30.2 ng/mL Normal 30-100 [facility] Comment on above: Result Comment: Nguyen min D Status Deficiency: <20 ng/mL (50nmol/L) Insufficiency: 20-30 ng/mL (50-75 nmol/L) Sufficiency: 30-100 ng/mL (75-250 nmol/L) Toxicity: >100 ng/mL (>250 nmol/L) Performed By: #### L 502.0500, L500.4050, L501.9985, L3100.5310 #### [facility] [address] [place], [place], [id number] White blood cell (WBC) count Ordered By: Pietro Turner on 02-09-2025 WBC (Bld) [#/Vol] 7.3 10*3/uL 4.4-11.0 [facility] White blood cell (WBC) count 7.3 K/mm3 4.4-11.0 [facility] OT D/C of Non Returning Pton 02-05-2025 OT D/C of Non Returning Pt [facility] Occupational Therapy [facility] [place] [address] / REHABILITATION SERVICES DISCHARGE SUMMARY MR#: [id number] Acct: [id number] Name: ALIX LEE Rep #: [id number] : 1960 64 From: Manasa Castro Referring [...] Dr. Pietro Turner MD CK Signed Normal [facility] MR/BMS.IMBon 01-01-2025 MR/BMS.IMB [facility] [address] [place] [address] OFFICE VISIT Date of Service: 01/01/25 MR#: [id number] Acct: [id number] Name: ALIX LEE Rep #: [id number] : 1960 Provider: Dr. Pietro ram MD Age/Sex: 64/M Location: [facility] Status: Signed Intake Vital Signs 12/04/24 16:27 [...] ED Treatment Chief Complaint: Discuss ED Treatment Unionmelt Operator Required: No Accompanied by: Self Is patient in pain?: No Allergies Penicillins (PCN) Allergy (Verified 01/01/25 16:02) Other lisinopril Adverse Reaction (Verified 01/01/25 16:02) cough spironolactone Adverse Reaction (Verified 01/01/25 16:02) elevated blood sugar Medications ???Medication ???Instructions ???Recorded ???Confirmed ???Type needle (disp) 18 G 18 gauge x 1 #100 ea 05/22/22 01/01/25 Rx (BD Regular Bevel [place]) nitroglycerin 0.4 mg sublingual 0.4 mg sublingual Q5-15M PRN chest 01/11/24 01/01/25 Rx tablet (Nitrostat) pain #25 tabs flash glucose scanning reader #1 ea 02/05/24 01/01/25 Rx (FreeStyle Jean 2 [place]) flash glucose sensor (FreeStyle #1 ea 02/05/24 [...] Q2W #5 mL 01/02 Rx intramuscular oil [facility] Medical History (Updated 01/05/25 @ 08:05 by [...] pulmonary arterial hypertension Atherosclerotic heart disease of [place] coronary artery with other forms of angina [...] History Sm (more content not included)... Normal [facility] Cardiology Visit Reporton Cardiology Visit Report [facility] [address] [place] [address] OFFICE VISIT Date of Service: 11/25/24 MR#: [id number] Acct: [id number] Name: ALIX LEE Rep #: [id number] : 1960 Provider: Dr. Marck Orellana MD Age/Sex: 64/M Location[place] [facility] Status: Signed HPI HPI History of Present [...] Monitor Intake Visit Reasons: 1 Y FU Unionmelt Operator Required: No Accompanied by: Self Is patient in pain?: No Allergies Penicillins (PCN) Allergy (Verified 11/25/24 14:59) Other lisinopril Adverse Reaction (Verified 11/25/24 14:59) cough spironolactone Adverse Reaction (Verified 11/25/24 14:59) elevated blood sugar Medications ???Medication ???Instructions ???Recorded ???Confirmed ???Type needle (disp) 18 G 18 gauge x 1 #100 ea 05/22/22 10/14/24 Rx (BD Regular Bevel [place]) nitroglycerin 0.4 mg sublingual 0.4 mg sublingual Q5-15M PRN chest 01/11/24 11/25/24 Rx tablet (Nitrostat) pain #25 tabs flash glucose scanning reader #1 ea 02/05/24 10/14/24 Rx (FreeStyle Jean 2 [place]) flash glucose sensor (FreeStyle #1 ea 02/05/24 [...] 100 mg (more content not included)... Normal [facility] Absolute neutrophil countOrd ered By: Betty Aaron on 11-14-2024 Neutrophils (Bld) [#/Vol] 4.1 10*3/uL 2.0-7.7 [facility] Absolute neutrophil count 4.1 X10^3/uL 2.0-7.7 [facility] Basic Metabolic Profile (BMP )on 11-14-2024 BUN/CRE 19.1 RATIO Normal 10-20 [facility] Comment on above: Order Comment: 1 Y Performed By: #### L 500.2500, L501.5425, L100.0100 #### [facility] [address] [place], [address] CA,Total 9.6 mg/dL Normal 8.5-10.1 [facility] Comment on above: Order Comment: 1 Y Performed By: #### L 500.2500, L501.5425, L100.0100 #### [facility] [address] [place], [address] Chloride [Moles/Vol] 100 mmol/L Normal 98-107 [facility] Comment on above: Order Comment: 1 Y Performed By: #### L 500.2500, L501.5425, L100.0100 #### [facility] [address] [place], [address] CO2 [Moles/Vol] 30.0 mmol/L Normal 21.0-32.0 [facility] Comment on above: Order Comment: 1 Y Performed By: #### L 500.2500, L501.5425, L100.0100 #### [facility] [address] [place], [address] Creatinine [Mass/Vol] 0.84 mg/dL Normal 0.70-1.30 [facility] Comment on above: Order Comment: 1 Y Result Comment: The validity of the calculated GFR GFRAA in patients over 70 years has not been determined. Clinical correlation is essential. Performed By: #### L 500.2500, L501.5425, L100.0100 #### [facility] [address] [place], [address] EST GFR - AA 119 mL/min Normal >60 [facility] Comment on above: Order Comment: 1 Y Result Comment: Afri can Nigerien GFR Calc Performed By: #### L 500.2500, L501.5425, L100.0100 #### [facility] [address] [place], [address] GAP 4 Low 5-15 [facility] Comment on above: Order Comment: 1 Y Performed By: #### L 500.2500, L501.5425, L100.0100 #### [facility] [address] [place], [address] GFR/1.73 sq M.predicted among non-blacks MDRD (S/P/Bld) [Vol rate/Area] 98 mL/min/{1.73_m2} Normal >60 [facility] Comment on above: Order Comment: 1 Y Result Comment: Non- GFR Calc Performed By: #### L 500.2500, L501.5425, L100.0100 #### [facility] [address] [place], [address] Glucose [Mass/Vol] 170 mg/dL High 74-106 [facility] Comment on above: Order Comment: 1 Y Result Comment: Fast ing Glucose result greater than or equal to 126 mg/dL suggests DIABETES MELLITUS per A.D.A. criteria. Performed By: #### L 500.2500, L501.5425, L100.0100 #### [facility] [address] [place], [address] Potassium [Moles/Vol] 3.5 mmol/L Normal 3.5-5.1 [facility] Comment on above: Order Comment: 1 Y Performed By: #### L 500.2500, L501.5425, L100.0100 #### [facility] [address] [place], [address] Sodium [Moles/Vol] 134 mmol/L Low 136-145 [facility] Comment on above: Order Comment: 1 Y Performed By: #### L 500.2500, L501.5425, L100.0100 #### [facility] [address] [place], [address] Urea nitrogen [Mass/Vol] 16 mg/dL Normal 7-18 [facility] Comment on above: Order Comment: 1 Y Performed By: #### L 500.2500, L501.5425, L100.0100 #### [facility] [address] [place], [address] Basophil percentageOrdered B y: Betty Aaron on 11-14-2024 Basophils/100 WBC (Bld) 0.8 % 0-1 [facility] Basophil percentage 0.8 % 0-1 [facility] Blood urea nitrogen (BUN)/cr eatinine ratioOrdered By: Betty Aaron on 11-14-2024 Urea nitrogen/Creatinine [Mass ratio] 19.1 mg/mg 10- [facility] Blood urea nitrogen (BUN)/creatinine ratio 19.1 RATIO - [facility] CBC W/Diff, Automatedon 10-29 Absolute Lymph 1.35 X10 3/uL Normal 0.83-4.51 [facility] Comment on above: Performed By: #### L 500.2500, L501.5425, L100.0100 #### [facility] [address] [place], [address] Absolute Neut 4.1 X10 3/uL Normal 2.0-7.7 [facility] Comment on above: Performed By: #### L 500.2500, L501.5425, L100.0100 #### [facility] [address] [place], [address] Basophils/100 WBC (Bld) 0.8 % Normal 0-1 [facility] Comment on above: Performed By: #### L 500.2500, L501.5425, L100.0100 #### [facility] [address] [place], [address] Eosinophils/100 WBC (Bld) 3.7 % Normal 0-5 [facility] Comment on above: Performed By: #### L 500.2500, L501.5425, L100.0100 #### [facility] [address] [place], [address] Erythrocyte distribution width (RBC) [Ratio] 13.7 % Normal 11.6-14.6 [facility] Comment on above: Performed By: #### L 500.2500, L501.5425, L100.0100 #### [facility] [address] [place], [address] Hematocrit (Bld) [Volume fraction] 38.5 % Low 40-54 [facility] Comment on above: Performed By: #### L 500.2500, L501.5425, L100.0100 #### [facility] [address] [place], [address] Hemoglobin (Bld) [Mass/Vol] 13.6 g/dL Normal 13.0-16.5 [facility] Comment on above: Performed By: #### L 500.2500, L501.5425, L100.0100 #### [facility] [address] [place], [address] IG% 0.600 Normal 0.0-0.9 [facility] Comment on above: Result Comment: IG% - Immature Granulocytes (promyelocytes, myelocytes and metamyelocytes) > 1% indicates that a LEFT SHIFT is Present. Performed By: #### L 500.2500, L501.5425, L100.0100 #### [facility] [address] [place], [address] Lymphocytes/100 WBC (Bld) 21.4 % Normal 19-41 [facility] Comment on above: Performed By: #### L 500.2500, L501.5425, L100.0100 #### [facility] [address] [place], [address] MCH (RBC) [Entitic mass] 31.3 pg Normal 27.0-32.0 [facility] Comment on above: Performed By: #### L 500.2500, L501.5425, L100.0100 #### [facility] [address] [place], [address] MCHC (RBC) [Mass/Vol] 35.3 g/dL Normal 32-36 [facility] Comment on above: Performed By: #### L 500.2500, L501.5425, L100.0100 #### [facility] [address] [place], [address] MCV (RBC) [Entitic vol] 88.5 fL Normal 80-94 [facility] Comment on above: Performed By: #### L 500.2500, L501.5425, L100.0100 #### [facility] [address] [place], [address] Monocytes/100 WBC (Bld) 8.6 % Normal 0-10 [facility] Comment on above: Performed By: #### L 500.2500, L501.5425, L100.0100 #### [facility] [address] [place], [address] Neutrophils/100 WBC (Bld) 64.9 % Normal 47-70 [facility] Comment on above: Performed By: #### L 500.2500, L501.5425, L100.0100 #### [facility] [address] [place], [address] Nucleated RBC (Bld) [#/Vol] 0 10*3/uL Normal 0-5 [facility] Comment on above: Performed By: #### L 500.2500, L501.5425, L100.0100 #### [facility] [address] [place], [address] Platelet mean volume (Bld) [Entitic vol] 9.6 fL Normal 6.2-12.0 [facility] Comment on above: Performed By: #### L 500.2500, L501.5425, L100.0100 #### [facility] [address] [place], [address] Platelets (Bld) [#/Vol] 219 10*3/uL Normal 150-450 [facility] Comment on above: Performed By: #### L 500.2500, L501.5425, L100.0100 #### [facility] [address] [place], [address] RBC (Bld) [#/Vol] 4.35 10*6/uL Low 4.6-6.2 [facility] Comment on above: Performed By: #### L 500.2500, L501.5425, L100.0100 #### [facility] [address] [place], [address] RDW SD 43.7 fl Normal 35.1-43.9 [facility] Comment on above: Performed By: #### L 500.2500, L501.5425, L100.0100 #### [facility] [address] [place], [address] WBC (Bld) [#/Vol] 6.3 10*3/uL Normal 4.4-11.0 [facility] Comment on above: Performed By: #### L 500.2500, L501.5425, L100.0100 #### [facility] [address] [place], [address] Calcium [Mass/Vol]Ordered By : Betty Aaron on 11-14-2024 Serum or plasma calcium measurement (mass/volume) 9.6 mg/dL 8.5-10.1 [facility] Carbon dioxide measurementOr dered By: Betty Aaron on 11-14-2024 CO2 [Moles/Vol] 30.0 mmol/L 21.0-32.0 [facility] Carbon dioxide measurement 30.0 mmol/L 21.0-32.0 [facility] Chest 1 View (Portable)on Chest 1 View (Portable) [facility] Imaging Services [address] [place] [address] Chest 1 View (Portable) MR#: [id number] Acct: [id number] Name: ALIX LEE Rep #: [id number] : 1960 M 64 From: Juan Jean MD PCP: Dr. Pietro Turner MD Status: REG ER Study: Chest 1 View (Portable) Date of Exam: 11/14/24 Exam# [id number] Ordering Dr: Betty Aaron [id number] STUDY: X-RAY CHEST REASON FOR EXAM: Male, [...] 20:29 EST Reading Location ID and State: [facility] / [place] Tel , Service support , CC: Dr. Pietro Turner MD; JAME Morgan Certified Medication Aide: Signed Normal [facility] Chloride measurementOrdered By: Betty Aaron on 11-14-2024 Chloride [Moles/Vol] 100 mmol/L 98-107 [facility] Chloride measurement 100 mmol/L 98-107 [facility] Creatinine [Mass/Vol]Ordered By: Betty Aaron on 11-14-2024 Serum or plasma creatinine measurement (mass/volume) 0.84 mg/dL 0.70-1.30 [facility] Emergency Department Summary on 11-14-2024 Emergency Department Summary [facility] Medical Records Department [address] [place] [address] Emergency Department Summary 11/14/24 MR#: [id number] Acct: [id number] Name: ALIX LEE Rep #: [id number] : 1960 64 From: Betty KILGORE PCP: Dr. Pietro Turner MD Status:DEP ER Location: ED Patient was seen and examined with physician assistant tennis coach Betty All components of the history and [...] did note that he had a previous PA back in 2019 with 1 stent placed in the LAD at [place]. He states that he follows with Dr. [...] noted. Betty did discuss case with on-call animal biologist as noted in her note and they [...] condition Supervising attending attestation: Lamberto Desai D.O. [facility] History of Present Illness Chief Complaint: Chest [...] he had cottage cheese. He had an PA in 2019 with 1 stent placed in the LAD at [place]. He follows with Dr. Orellana and states he has had a normal stress test since then. He denies recent exertional chest pain or dyspnea. He has been very fatigued lately. No fever chills or cough. [facility] Medical History Alcohol use [place] High cholesterol [...] pulmonary arterial hypertension Atherosclerotic heart disease of [place] coronary artery with other forms of angina [...] ea 05/22/22 Unknown Rx (BD Regular [place]vel [place]) nitroglycerin 0.4 mg sublingual 0.4 mg sublingua (more content not included)... Normal [facility] Eosinophil percentageOrdered By: Betty Aaron on 11-14-2024 Eosinophils/100 WBC (Bld) 3.7 % 0-5 [facility] Eosinophil percentage 3.7 % 0-5 [facility] Erythrocyte distribution wid th (RBC) [Ratio]Ordered By: Betty Aaron on 11-14-2024 Erythrocyte distribution width ratio 13.7 % 11.6-14.6 [facility] Erythrocyte distribution width (RBC) [Entitic vol] 43.7 fL 35.1-43.9 [facility] Erythrocyte distribution width standard deviation 43.7 fl 35.1-43.9 [facility] Erythrocyte distribution wid th ratioOrdered By: Betty Aaron on 11-14-2024 Erythrocyte distribution width (RBC) [Ratio] 13.7 % 11.6-14.6 [facility] Estimated glomerular filtrat ion rate (GFR) AmericanOrdered By: Betty Aaron on 11-14-2024 Estimated GFR (MDRD) Amer 119 mL/min >60 [facility] Comment on above: GFR Calc Estimated glomerular filtration rate (GFR) 119 mL/min >60 [facility] Glomerular filtration rate ( GFR) estimationOrdered By: Betty Aaron on 11-14-2024 Estimated GFR (MDRD) Non-Af Amer 98 mL/min >60 [facility] Comment on above: Non- GFR Calc Glomerular filtration rate (GFR) estimation 98 mL/min >60 [facility] Glucose measurementOrdered B y: Betty Woodssydney on 11-14-2024 Glucose [Mass/Vol] 170 mg/dL High 74-106 [facility] Comment on above: Fasting Glucose resu lt greater than or equal to 126 mg/dL suggests DIABETES MELLITUS per A.D.A. criteria. Glucose measurement 170 mg/dL High 74-106 [facility] Hematocrit Auto (Bld) [Volum e fraction]Ordered By: Betty Agnieszka on 11-14-2024 Hematocrit (Bld) [Volume fraction] 38.5 % Low 40-54 [facility] Automated blood hematocrit (percentage) 38.5 % Low 40-54 [facility] Hemoglobin measurementOrdere d By: Betty Agnieszka on 11-14-2024 Hemoglobin (Bld) [Mass/Vol] 13.6 g/dL 13.0-16.5 [facility] Hemoglobin measurement 13.6 g/dL 13.0-16.5 [facility] Immature granulocytes/100 WB C Auto (Bld)Ordered By: Betty Aaron on 11-14-2024 Immature granulocytes/100 WBC (Bld) 0.600 % 0.0-0.9 [facility] Comment on above: IG% - Immature Granu locytes (promyelocytes, myelocytes and metamyelocytes) > 1% indicates that a LEFT SHIFT is Present. Automated immature granulocyte percentage 0.600 % 0.0-0.9 [facility] L501.4020on 11-14-2024 TROPONIN-I HS < 3 Low 3.0-78.0 [facility] Comment on above: Result Comment: Nelson killian Note: New Test Units and Gender Specific Reference Ranges. For more information see Policy Stat Procedure [place] High Sensitivity Troponin (TNIH) and attachments. Performed By: #### L 502.0500, L500.4050, L501.9985, L3100.5310 #### [facility] [address] [place], [address] L501.5425on 11-14-2024 TROPONIN-I HS < 3 Low 3.0-78.0 [facility] Comment on above: Order Comment: 1 Y Result Comment: Nelson killian Note: New Test Units and Gender Specific Reference Ranges. For more information see Policy Stat Procedure [place] High Sensitivity Troponin (TNIH) and attachments. Performed By: #### L 500.2500, L501.5425, L100.0100 #### [facility] [address] [place], [address] Lymphocytes Auto (Unsp spec) [#/Vol]Ordered By: Betty Aaron on 11-14-2024 Lymphocytes (Bld) [#/Vol] 1.35 10*3/uL 0.83-4.51 [facility] Absolute lymphocyte count 1.35 X10^3/uL 0.83-4.51 [facility] Lymphocytes/100 WBC Auto (Un sp spec)Ordered By: Betty Aaron on 11-14-2024 Lymphocytes/100 WBC (Bld) 21.4 % [facility] Automated lymphocyte count as percentage of total leukocytes 21.4 % [facility] MCV (RBC) [Entitic vol]Order ed By: Betty Aaron on 11-14-2024 MCV (mean corpuscular volume) determination 88.5 fL 80-94 [facility] MCV (mean corpuscular volume ) determinationOrdered By: Betty Aaron on 11-14-2024 MCV (RBC) [Entitic vol] 88.5 fL 80-94 [facility] Mean corpuscular hemoglobin (MCH) determinationOrdered By: Betty Aaron on 11-14-2024 MCH (RBC) [Entitic mass] 31.3 pg 27.0-32.0 [facility] Mean corpuscular hemoglobin (MCH) determination 31.3 pg 27.0-32.0 [facility] Mean corpuscular hemoglobin concentration (MCHC) determinationOrdered By: Betty Aaron on 11-14-2024 MCHC (RBC) [Mass/Vol] 35.3 g/dL -36 [facility] Mean corpuscular hemoglobin concentration (MCHC) determination 35.3 g/dL -36 [facility] Mean platelet volume determi nationOrdered By: Betty Aaron on 11-14-2024 Platelet mean volume (Bld) [Entitic vol] 9.6 fL 6.2-12.0 [facility] Mean platelet volume determination 9.6 fl 6.2-12.0 [facility] Monocyte percentageOrdered B y: Betty Aaron on 11-14-2024 Monocytes/100 WBC (Bld) 8.6 % 0-10 [facility] Monocyte percentage 8.6 % 0-10 [facility] Neutrophil percentageOrdered By: Betty Aaron on 11-14-2024 Neutrophils/100 WBC (Bld) 64.9 % 47-70 [facility] Neutrophil percentage 64.9 % 47-70 [facility] Nucleated red blood cell per centageOrdered By: Betty Aaron on 11-14-2024 Nucleated RBC/100 WBC (Bld) [Ratio] 0 % 0-5 [facility] Nucleated red blood cell percentage 0 % 0-5 [facility] Platelet countOrdered By: Patricia Aaron on 11-14-2024 Platelets (Bld) [#/Vol] 219 10*3/uL 150-450 [facility] Platelet count 219 K/mm3 150-450 [facility] Potassium measurementOrdered By: Betty Aaron on 11-14-2024 Potassium [Moles/Vol] 3.5 mmol/L 3.5-5.1 [facility] Potassium measurement 3.5 mmol/L 3.5-5.1 [facility] RBC Auto (Bld) [#/Vol]Ordere d By: Betty Aaron on 11-14-2024 RBC (Bld) [#/Vol] 4.35 10*6/uL Low 4.6-6.2 [facility] Automated blood erythrocyte count 4.35 M/mm3 Low 4.6-6.2 [facility] Serum anion gap measurementO rdered By: Betty Aaron on 11-14-2024 Anion gap [Moles/Vol] 4 mmol/L Low 5-15 [facility] Serum anion gap measurement 4 Low 5-15 [facility] Serum or plasma calcium michelle urement (mass/volume)Ordered By: Betty Aaron on 11-14-2024 Calcium [Mass/Vol] 9.6 mg/dL 8.5-10.1 [facility] Serum or plasma creatinine m easurement (mass/volume)Ordered By: Betty Aaron on 11-14-2024 Creatinine [Mass/Vol] 0.84 mg/dL 0.70-1.30 [facility] Comment on above: The validity of the calculated GFR & GFRAA in patients over 70 years has not been determined. Clinical correlation is essential. Serum or plasma urea nitroge n measurement (mass/volume)Ordered By: Betty Aaron on 11-14-2024 Urea nitrogen [Mass/Vol] 16 mg/dL 05-15 [facility] Sodium levelOrdered By: Betty Aaron on 11-14-2024 Sodium [Moles/Vol] 134 mmol/L Low 136-145 [facility] Sodium level 134 mmol/L Low 136-145 [facility] Troponin IOrdered By: Betty jorge on 11-14-2024 Troponin I High Sensitivity < 3 pg/mL Low 3.0-78.0 [facility] Comment on above: Please Note: New Ángela t Units and Gender Specific Reference Ranges. For more information see Policy Stat Procedure [place] High Sensitivity Troponin (TNIH) and attachments. Troponin I < 3 pg/mL Low 3.0-78.0 [facility] Urea nitrogen [Mass/Vol]Orde red By: Betty Aaron on 11-14-2024 Serum or plasma urea nitrogen measurement (mass/volume) 16 mg/dL 05-15 [facility] White blood cell (WBC) count Ordered By: Betty Aaron on 11-14-2024 WBC (Bld) [#/Vol] 6.3 10*3/uL 4.4-11.0 [facility] White blood cell (WBC) count 6.3 K/mm3 4.4-11.0 [facility] Urgent Care Visit Reporton 0 11-13-2024 Urgent Care Visit Report [facility] [address] , [address] [place] [address] OFFICE VISIT Date of Service: 11/13/24 MR#: [id number] Acct: [id number] Name: ALIX LEE Rep #: [id number] : 1960 Provider: JAME Mcgrath Age/Sex: 64/M Location: [facility] [place] Status: Signed Intake Vital Signs 10/14/24 13:35 [...] CLEANING Chief Complaint: WC f/u right elbow Unionmelt Operator Required: No Is patient in pain?: No [...] pulmonary arterial hypertension Atherosclerotic heart disease of [place] coronary artery with other forms of angina [...] physical activity do you participate in: walking [facility] HPI Chief Complaint: WC f/u right elbow [...] Garsia Signature: Date (if applicable) CC: Normal [facility] Bedside Glucoseon 11-07-2024 FINGERSTICK GLU 134 mg/dL High 74-106 [facility] Comment on above: Result Comment: NILSON CHRISTENSEN OF PATIENT CARE PER NURSING PROTOCOL Performed By: #### L 502.0500, L500.4050, L501.9985, L3100.5310 #### [facility] [address] [place], [address] Colonoscopy Reporton 025 Colonoscopy Report [facility] Medical Records Department [address] [place] [address] Colonoscopy Report MR#: [id number] Acct: [id number] Name: ALIX LEE Rep #: [id number] : 1960 64 From: Dimitry Camp MD PCP: Dr. Pietro Turner MD Status:[facility] Patient Name: Alix Lee Procedure Date: 11/07/2024 [...] screening purposes. Procedure Code(s): --- Professional --- 26483, Colonoscopy, flexible; diagnostic, including collection of specimen(s) by brushing or washing, when performed (separate procedure) Diagnosis Code(s): --- Professional --- Z12.11, Encounter for screening for malignant neoplasm of colon CPT copyright 2021 [employer]. All rights reserved. The codes documented in this report are preliminary and upon medication coordinator review may be revised to meet current compliance requirements. Dimitry Camp MD 11/07/2024 8:12:37 AM This report has been signed electronically. Number of Addenda: 0 Note Initiated On: 11/07/2024 7:39 AM 11/07/24 0812 Date Dimitry Camp MD Cosigner Signature: Date (if indicated) CC: Dr. Dimitry Camp MD; Dr. Pietro Turner MD Date Dictated: 11/07/24 0739 Date Transcribed: Certified Medication Aide: SANDI Signed Normal [facility] Glucose measurement at bedsi deOrdered By: Dimitry Camp on 11-07-2024 Bedside Glucose (Misc Panel) 134 mg/dL High 74-106 [facility] Comment on above: MANAGEMENT OF PATIEN T CARE PER NURSING PROTOCOL Glucose measurement at bedside 134 mg/dL High 74-106 [facility] MR/POSTOP.ANEon 11-07-2024 MR/POSTOP.ANE [facility] Medical Records Department [address] [place] [address] Anesthesia Postop Eval I 11/07/24 0811 MR#: [id number] Acct: [id number] Name: ALIX LEE Rep #: [id number] : 1960 64 From: Raudel Desai PCP: Dr. Pietro Turner MD Status:[facility] Y Race: C Location: [place] [address] Anesthesia: Postop Eval I Current Vital Signs [...] Raudel Garsia Signature: Date CC: Signed Normal [facility] MR/[id number] 11-07-2024 MR/POSTOPAN2 [facility] Medical Records Department [address] [place] [address] Anesthesia Postop Eval II 11/07/24 0850 MR#: [id number] Acct: [id number] Name: ALIX LEE Rep #: [id number] : 1960 64 From: Maye Qureshi PCP: Dr. Pietro Turner MD Status:[facility] Y Race: C Location: [place] Anesthesia Postop [...] Maye Garsia Signature: Date CC: Signed Normal [facility] MR/PATJodi 11-06-2024 MR/PAT.BRITTANEY [facility] Medical Records Department [address] [place] [address] PAT - Anesthesia 11/06/24 1038 MR#: [id number] Acct: [id number] Name: ALIX LEE Rep #: [id number] : 1960 64 From: Srinivasan Jara MD PCP: Dr. 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 Hx Respiratory Tract Infection No 11/06/24 09:54 STOP Sleep Apnea STOP Sleep Apnea - 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: STOP Sleep Apnea - 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 Hx Hypertension Yes: CONTROLLED WITH MEDS [...] Tobacco Use History Tobacco Use 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: Tobacco Use 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 Tobacco Use Smoking Status Former smoker 11/06/24 09:54 Hx Tobacco Use No 11/06/24 09:54 Years Smoking Packs Smoked per Day Smoking Cessation Date was No - quit smoking greater 11/06/24 09:54 within the last 15 years than 15 years ago Hx Smoking Cessation Date 10/29/06 11/06/24 09:54 Hx Smoking Cessation No 11/06/24 09:54 Counseling Hematologic Medial History Hematologic Hx - 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: 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 Normal [facility] [address] [place] [address] Echo Complete 10/27/24 1359 MR#: [id number] Acct: [id number] Name: ROSAALIXCHELSIE RODGERSLAS Rep #: [id number] : 1960 64 From: Marck Orellana MD Attending Dr: Jocelyne Dickey NP-C Status: REG CLI Ordering Dr: Jocelyne Dickey NURSING STAFFING COORDINATOR NURSING STAFFING COORDINATOR-C Date: 10/27/24 Location: [facility] Sex: M C Admitted: Version 2 Reason [...] Dictated: 10/27/24 1359 Date Transcribed: 10/27/24 1636 Certified Medication Aide: Signed Normal [facility] Urgent Care Visit Reporton 1 12-17-2023 Urgent Care Visit Report [facility] [address], [address] [place] [address] OFFICE VISIT Date of Service: 10/16/24 MR#: [id number] Acct: [id number] Name: ALIX LEE Rep #: [id number] : 1960 Provider: JAME Mgcrath Age/Sex: 64/M Location: [facility] [place] Status: Signed Intake Vital Signs 10/14/24 13:35 [...] CLEAN Chief Complaint: WC f/u right elbow Unionmelt Operator Required: No Is patient in pain?: No Allergies Penicillins (PCN) Allergy (Verified 10/16/24 15:44) Other lisinopril Adverse Reaction (Verified 10/16/24 15:44) cough spironolactone Adverse Reaction (Verified 10/16/24 15:44) elevated blood sugar Medications ???Medication ???Instructions ???Recorded ???Confirmed ???Type needle (disp) 18 G 18 gauge x 1 #100 ea 05/22/22 10/14/24 Rx (BD Regular Bevel [place]) nitroglycerin 0.4 mg sublingual 0.4 mg sublingual Q5-15M PRN chest 01/11/24 10/14/24 Rx tablet (Nitrostat) pain #25 tabs atorvastatin 40 mg tablet 40 mg PO QHS 90 days #90 tabs 01/14/24 10/14/24 Rx flash glucose scanning reader #1 ea 02/05/24 10/14/24 Rx (FreeStyle Jean 2 [place]) flash glucose sensor (FreeStyle #1 ea 02/05/24 [...] pulmonary arterial hypertension Atherosclerotic heart disease of [place] coronary artery with other forms of angina [...] Other CVA (more content not included)... Normal [facility] Surgery Visit Reporton 10-14 Surgery Visit Report [facility] [address] [place] [address]. [address] [place] [address] OFFICE VISIT Date of Service: 10/14/24 MR#: [id number] Acct: [id number] Name: ALIX LEE Rep #: [id number] : 1960 Provider: Dr. Dimitry hernandez MD Age/Sex: 64/M Location: [facility] Status: Signed Intake Vital Signs 09/05/24 13:01 [...] ea 05/22/22 10/14/24 Rx (BD Regular Bevel [place]) nitroglycerin 0.4 mg sublingual 0.4 mg sublingual Q5-15M PRN chest 01/11/24 10/14/24 Rx tablet (Nitrostat) pain #25 tabs atorvastatin 40 mg tablet 40 mg PO QHS 90 days #90 tabs 01/14/24 10/14/24 Rx flash glucose scanning reader #1 ea 02/05/24 10/14/24 Rx (FreeStyle Jean 2 [place]) flash glucose sensor (FreeStyle #1 ea 02/05/24 [...] pulmonary arterial hypertension Atherosclerotic heart disease of [place] coronary artery with other forms of angina [...] 10/14/24 @ (more content not included)... Normal [facility] OT General Evaluationon 09-28 OT General Evaluation [facility] Occupational Therapy [facility] 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 Please let me know if there are questions or concerns regarding this plan of care. Physician Signature: Date: 10/08/24 1358 CC: JAME Mcgrath; Dr. Pietro Turner MD CK Signed For Medicare only, by signing this I certify the plan of care. _ Physicians Signature Date Normal [facility] Elbow min 3 Viewson 09-26-20 Elbow min 3 Views [facility] [address] [place] [id number] Elbow min 3 Views MR#: [id number] Acct: [id number] Name: ALIX LEE Rep #: [id number] : 1960 M 64 From: Kayden White MD PCP: Dr. Pietro Turner MD Status: REG CLI Study: Elbow min 3 Views Date of Exam: 09/26/24 Exam# [id number] Ordering Dr: Solitario Guy [id number] EXAM: XR RIGHT ELBOW COMPLETE, 3 OR [...] MD at 9:19 EST , CC: JAME Mcgrath; Dr. Pietro Turner MD Certified Medication Aide: Signed Normal [facility] Urgent Care Visit Reporton 1 11-26-2023 Urgent Care Visit Report [facility] [address] [place] [address] OFFICE VISIT Date of Service: 09/26/24 MR#: [id number] Acct: [id number] Name: ALIX LEE Rep #: [id number] : 1960 Provider: JAME Mcgrath Age/Sex: 64/M Location: [facility] [place] Status: Signed Intake Vital Signs 09/05/24 13:01 [...] CLEAN Chief Complaint: WC new, right elbow Unionmelt Operator Required: No Is patient in pain?: Yes Allergies Penicillins (PCN) Allergy (Verified 09/26/24 08:59) Other lisinopril Adverse Reaction (Verified 09/26/24 08:59) cough spironolactone Adverse Reaction (Verified 09/26/24 08:59) elevated blood sugar Have you fallen in the past year?: No [facility] History Nausea vomiting Colon cancer screening Cholelithiasis Wears hearing aid Wears glasses Schizophrenia Anxiety Diabetes Low iron Fatty liver Restless legs Back pain Tic disorder History of diverticulitis Former smoker History of stress test Cardiology follow-up encounter Hypertension History of sarcoidosis Depression Pancreatitis Secondary pulmonary arterial hypertension Atherosclerotic heart disease of [place] coronary artery with other forms of angina [...] 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 He denies [...] report of injury form as well as [employer] filled out releasing patient back to [...] Orders: Orders (more content not included)... Normal [facility] 12 Lead EKG performed by [facility] on 09-05-2024 12 Lead EKG performed by [facility] [address] [place] [address] 12 Lead EKG performed by [facility] 09/05/24 1306 MR#: [id number] Acct: [id number] Name: ALIX LEE Rep #: [id number] : 1960 64 From: Jocelyne Dickey NP NURSING STAFFING COORDINATOR-C Attending Dr: VARGAS ChisholmC Status: DEP AMB Ordering Dr: Jocelyne Dickey NP NURSING STAFFING COORDINATOR-C Date: 09/05/24 Location: [facility] Sex: M C Admitted: [facility]/12 Lead EKG performed by [facility] ECG Report Interpretation S inus Rhythm -Electronically signed on 09/11/2024 at 08:05 by Marck Orellana Software Version 8610 09/11/2409 Date Jocelyne Dickey NP NURSING STAFFING COORDINATOR-C CC: Dr. Pietro Turner MD Date Dictated: 09/05/241305 Date Transcribed: 09/05/241305 Certified Medication Aide: FLOR Signed Normal [facility] Cardiology Visit Reporton Cardiology Visit Report [facility] [address] [place] [address] OFFICE VISIT Date of Service: 09/05/24 MR#: [id number] Acct: [id number] Name: ALIX LEE Rep #: [id number] : 1960 Provider: MICHELLE koch Age/Sex: 64/M Location: [facility] Status: Signed HPI HPI History of [...] NIBP Intake Visit Reasons: PALPS (SEE NOTES) Unionmelt Operator Required: No Is patient in pain?: No Allergies Penicillins (PCN) Allergy (Verified 09/05/24 13:10) Other lisinopril Adverse Reaction (Verified 09/05/24 13:10) cough spironolactone Adverse Reaction (Verified 09/05/24 13:10) elevated blood sugar Medications ???Medication ???Instructions ???Recorded ???Confirmed ???Type needle (disp) 18 G 18 gauge x 1 #100 ea 05/22/22 06/20/24 Rx (BD Regular Bevel [place]) nitroglycerin 0.4 mg sublingual 0.4 mg sublingual Q5-15M PRN chest 01/11/24 09/05/24 Rx tablet (Nitrostat) pain #25 tabs atorvastatin 40 mg tablet 40 mg PO QHS 90 days #90 tabs 01/14/24 09/05/24 Rx flash glucose scanning reader #1 ea 02/05/24 06/20/24 Rx (FreeStyle Jean 2 [place]) flash glucose sensor (FreeStyle #1 ea 02/05/24 [...] Rx intra (more content not included)... Normal [facility] Absolute lymphocyte countOrd ered By: Bridger Han on 02-19-2024 Lymphocytes Auto (Unsp spec) [#/Vol] 1.66 10*3/uL 0.83-4.51 [facility] Automated lymphocyte count a s percentage of total leukocytesOrdered By: Bridger Han on 02-19-2024 Lymphocytes/100 WBC Auto (Unsp spec) 21.1 % 19-41 [facility] Basophil percentageOrdered B y: Bridger Han on 02-19-2024 Basophils/100 WBC (Bld) 0.6 % 0-1 [facility] Bilirubin [Mass/Vol] 0.80 mg/dL 0.20-1.00 [facility] Comment on above: For patients on eltr ombopag therapy, use of Dimension [place] TBIL is not recommended. Chloride [Moles/Vol] 106 mmol/L 98-107 [facility] Eosinophils/100 WBC (Bld) 3.7 % 0-5 [facility] Glucose [Mass/Vol] 142 mg/dL 74-106 [facility] Comment on above: Fasting Glucose resu lt greater than or equal to 126 mg/dL suggests DIABETES MELLITUS per A.D.A. criteria. Hemoglobin (Bld) [Mass/Vol] 13.1 g/dL 13.0-16.5 [facility] Monocytes/100 WBC (Bld) 7.4 % 0-10 [facility] Neutrophils (Bld) [#/Vol] 5.3 10*3/uL 2.0-7.7 [facility] Neutrophils/100 WBC (Bld) 66.9 % 47-70 [facility] Potassium [Moles/Vol] 3.7 mmol/L 3.5-5.1 [facility] Protein [Mass/Vol] 7.1 g/dL 6.4-8.2 [facility] Sodium [Moles/Vol] 138 mmol/L 136-145 [facility] WBC (Bld) [#/Vol] 7.9 10*3/uL 4.4-11.0 [facility] Determination of erythrocyte mean corpuscular volume (MCV)Ordered By: Bridger Han on 02-19-2024 MCV (RBC) [Entitic vol] 90.3 fL 80-94 [facility] Direct bilirubinOrdered By: Bridger Han on 02-19-2024 Bilirubin.direct [Mass/Vol] 0.34 mg/dL 0.00-0.30 [facility] Erythrocyte distribution wid th ratioOrdered By: Bridger Han on 02-19-2024 Erythrocyte distribution width (RBC) [Ratio] 13.5 % 11.6-14.6 [facility] Erythrocyte distribution wid th standard deviationOrdered By: Bridger Han on 02-19-2024 Erythrocyte distribution width (RBC) [Entitic vol] 44.1 fL 35.1-43.9 [facility] Hematocrit Auto (Bld) [Volum e fraction]Ordered By: Bridger Han on 02-19-2024 Hematocrit (Bld) [Volume fraction] 39.0 % 40-54 [facility] Immature granulocytes/100 WB C Auto (Bld)Ordered By: Bridger Han on 02-19-2024 Immature granulocytes/100 WBC (Bld) 0.300 % 0.0-0.9 [facility] Comment on above: IG% - Immature Granu locytes (promyelocytes, myelocytes and metamyelocytes) > 1% indicates that a LEFT SHIFT is Present. Laboratory - Chemistry and C hemistry - challengeOrdered By: Bridger Han on 02-19-2024 ALP [Catalytic activity/Vol] 143 U/L 45-117 [facility] ALT [Catalytic activity/Vol] 89 U/L 16-61 [facility] CO2 [Moles/Vol] 26.0 mmol/L 21.0-32.0 [facility] Globulin (S) [Mass/Vol] 3.2 g/dL 2.2-4.2 [facility] Lipase [Catalytic activity/Vol] 31 U/L 13-75 [facility] Comment on above: Please note:LIPASE r evised reference range effective 23. New Lipase methodology. Expected to produce lower values than the previous assay method. NEW Reference Range: 13 - 75 U/L Magnesium [Mass/Vol] 2.5 mg/dL 1.6-2.6 [facility] Urea nitrogen/Creatinine [Mass ratio] 23.1 mg/mg 10-20 [facility] Laboratory - Hematology and Cell countsOrdered By: Bridger Han on 02-19-2024 MCH (RBC) [Entitic mass] 30.3 pg 27.0-32.0 [facility] MCHC (RBC) [Mass/Vol] 33.6 g/dL 32-36 [facility] Nucleated RBC/100 WBC (Bld) [Ratio] 0 % 0-5 [facility] Platelet mean volume (Bld) [Entitic vol] 9.7 fL 6.2-12.0 [facility] Platelets (Bld) [#/Vol] 202 10*3/uL 150-450 [facility] No Panel InformationOrdered By: Bridger Han on 02-19-2024 Troponin I High Sensitivity 4 pg/mL 3.0-78.0 [facility] Comment on above: Please Note: New Ángela t Units and Gender Specific Reference Ranges. For more information see Policy Stat Procedure [place] High Sensitivity Troponin (TNIH) and attachments. Estimated Creatinine Clearance Calc 85.76 ml/min [facility] Estimated GFR (MDRD) Amer 78 mL/min >60 [facility] Comment on above: GFR Calc Estimated GFR (MDRD) Non-Af Amer 65 mL/min >60 [facility] Comment on above: Non- GFR Calc RBC Auto (Bld) [#/Vol]Ordere d By: Bridger Han on 02-19-2024 RBC (Bld) [#/Vol] 4.32 10*6/uL 4.6-6.2 [facility] Serum or plasma calcium michelle urement (mass/volume)Ordered By: Bridger Han on 02-19-2024 Calcium [Mass/Vol] 9.2 mg/dL 8.5-10.1 [facility] Serum or plasma creatinine m easurement (mass/volume)Ordered By: Bridger Han on 02-19-2024 Creatinine [Mass/Vol] 1.21 mg/dL 0.70-1.30 [facility] Comment on above: The validity of the calculated GFR & GFRAA in patients over 70 years has not been determined. Clinical correlation is essential. Serum or plasma urea nitroge n measurement (mass/volume)Ordered By: Bridger Han on 02-19-2024 Urea nitrogen [Mass/Vol] 28 mg/dL 7-18 [facility] Thin prep Papanicolaou smear with manual screeningOrdered By: Bridger Han on 02-19-2024 Thin prep Papanicolaou smear with manual screening 3.9 g/dL 3.2-5.0 [facility] Thin prep Papanicolaou smear with manual screening 102 U/L 15-37 [facility] Thin prep Papanicolaou smear with manual screening 6 5-15 [facility] Absolute lymphocyte countOrd ered By: Pietro Turner on 01-03-2024 Lymphocytes Auto (Unsp spec) [#/Vol] 1.33 10*3/uL 0.83-4.51 [facility] Automated lymphocyte count a s percentage of total leukocytesOrdered By: Pietro Turner on 01-03-2024 Lymphocytes/100 WBC Auto (Unsp spec) 16.6 % 19-41 [facility] Basophil percentageOrdered B y: Pietro Turner on 01-03-2024 Basophils/100 WBC (Bld) 0.6 % 0-1 [facility] Bilirubin [Mass/Vol] 0.80 mg/dL 0.20-1.00 [facility] Comment on above: For patients on eltr ombopag therapy, use of Dimension [place] TBIL is not recommended. Chloride [Moles/Vol] 104 mmol/L 98-107 [facility] Cholesterol [Mass/Vol] 105 mg/dL <200 [facility] Comment on above: <200 mg/dL Desirable 200-240 mg/dL Borderline >240 mg/dL High Risk Eosinophils/100 WBC (Bld) 4.5 % 0-5 [facility] Glucose [Mass/Vol] 161 mg/dL 74-106 [facility] [facility] Comment on above: Fasting Glucose resu lt greater than or equal to 126 mg/dL suggests DIABETES MELLITUS per A.D.A. criteria. Hemoglobin (Bld) [Mass/Vol] 13.4 g/dL 13.0-16.5 [facility] Monocytes/100 WBC (Bld) 8.0 % 0-10 [facility] Neutrophils (Bld) [#/Vol] 5.6 10*3/uL 2.0-7.7 [facility] Neutrophils/100 WBC (Bld) 69.8 % 47-70 [facility] Potassium [Moles/Vol] 4.2 mmol/L 3.5-5.1 [facility] Protein [Mass/Vol] 7.1 g/dL 6.4-8.2 [facility] Sodium [Moles/Vol] 140 mmol/L 136-145 [facility] Triglyceride [Mass/Vol] 115 mg/dL <199 [facility] Comment on above: The drugs N-Acetylcy steine and Metamizole may falsely depress this assay.Serum Triglycerides Reference Interval Normal <150 mg/dL Borderline high 150 - 199 mg/dL High 200 - 499 mg/dL Very High > or = 500 mg/dL WBC (Bld) [#/Vol] 8.0 10*3/uL 4.4-11.0 [facility] Determination of erythrocyte mean corpuscular volume (MCV)Ordered By: Pietro Turner on 01-03-2024 MCV (RBC) [Entitic vol] 89.1 fL 80-94 [facility] Erythrocyte distribution wid th ratioOrdered By: Pietro Turner on 01-03-2024 Erythrocyte distribution width (RBC) [Ratio] 14.1 % 11.6-14.6 [facility] Erythrocyte distribution wid th standard deviationOrdered By: Pietro Turner on 01-03-2024 Erythrocyte distribution width (RBC) [Entitic vol] 44.9 fL 35.1-43.9 [facility] Hematocrit Auto (Bld) [Volum e fraction]Ordered By: Pietro Turner on 01-03-2024 Hematocrit (Bld) [Volume fraction] 40.1 % 40-54 [facility] Immature granulocytes/100 WB C Auto (Bld)Ordered By: Pietro Turner on 01-03-2024 Immature granulocytes/100 WBC (Bld) 0.500 % 0.0-0.9 [facility] Comment on above: IG% - Immature Granu locytes (promyelocytes, myelocytes and metamyelocytes) > 1% indicates that a LEFT SHIFT is Present. Laboratory - Chemistry and C hemistry - challengeOrdered By: Pietro Turner on 01-03-2024 Albumin/Globulin [Mass ratio] 1.4 {ratio} 0.9-2.4 [facility] ALP [Catalytic activity/Vol] 86 U/L 45-117 [facility] ALT [Catalytic activity/Vol] 44 U/L 16-61 [facility] Cholesterol in HDL [Mass/Vol] 38 mg/dL >40 [facility] Comment on above: The drugs N-Acetylcy steine and Metamizole may falsely depress this assay. Reference Range HDL <40 mg/dL Low HDL Cholesterol HDL >or= 60 mg/dL High HDL Cholesterol Cholesterol in LDL [Mass/Vol] 44 mg/dL 0-130 [facility] CO2 [Moles/Vol] 28.0 mmol/L 21.0-32.0 [facility] Globulin (S) [Mass/Vol] 3.0 g/dL 2.2-4.2 [facility] Urea nitrogen/Creatinine [Mass ratio] 24.8 mg/mg 10-20 [facility] Laboratory - Hematology and Cell countsOrdered By: Pietro Turner on 01-03-2024 MCH (RBC) [Entitic mass] 29.8 pg 27.0-32.0 [facility] MCHC (RBC) [Mass/Vol] 33.4 g/dL 32-36 [facility] Nucleated RBC/100 WBC (Bld) [Ratio] 0 % 0-5 [facility] Platelet mean volume (Bld) [Entitic vol] 9.3 fL 6.2-12.0 [facility] Platelets (Bld) [#/Vol] 216 10*3/uL 150-450 [facility] No Panel InformationOrdered By: Pietro Turner on 01-03-2024 Estimated GFR (MDRD) Amer 92 mL/min >60 [facility] Comment on above: GFR Calc Estimated GFR (MDRD) Non-Af Amer 76 mL/min >60 [facility] Comment on above: Non- GFR Calc Insulin Level 6.7 mU/L 2.6-37.6 [facility] Vitamin D 25-Hydroxy 31.9 ng/mL [facility] Comment on above: Vitamin D 25(OH) Sta tus Range Deficiency <20 ng/mL (50nmol/L) Insufficiency 20 - 30 ng/mL (50 - 75 nmol/L) Sufficiency 30 - 100 ng/mL (75 - 250 nmol/L) Toxicity >100 ng/mL (>250 nmol/L) VLDL Cholesterol 23 mg/dL 5-40 [facility] RBC Auto (Bld) [#/Vol]Ordere d By: Pietro Turner on 01-03-2024 RBC (Bld) [#/Vol] 4.50 10*6/uL 4.6-6.2 [facility] Serum or plasma calcium michelle urement (mass/volume)Ordered By: Pietro Turner on 01-03-2024 Calcium [Mass/Vol] 9.1 mg/dL 8.5-10.1 [facility] Serum or plasma creatinine m easurement (mass/volume)Ordered By: Pietro Turner on 01-03-2024 Creatinine [Mass/Vol] 1.05 mg/dL 0.70-1.30 [facility] Comment on above: The validity of the calculated GFR & GFRAA in patients over 70 years has not been determined. Clinical correlation is essential. Serum or plasma thyroid stim ulating hormone (TSH) measurement (units/volume)Ordered By: Pietro Turner on 01-03-2024 TSH Qn 2.26 uIU/mL 0.358-3.74 [facility] Serum or plasma urea nitroge n measurement (mass/volume)Ordered By: Pietro Turner on 01-03-2024 Urea nitrogen [Mass/Vol] 26 mg/dL 7-18 [facility] Thin prep Papanicolaou smear with manual screeningOrdered By: Pietro Turner on 01-03-2024 Thin prep Papanicolaou smear with manual screening 4.1 g/dL 3.2-5.0 [facility] Thin prep Papanicolaou smear with manual screening 26 U/L 15-37 [facility] Thin prep Papanicolaou smear with manual screening 8 5-15 [facility] Whole blood hemoglobin A1c/t otal hemoglobin ratio (mass fraction)Ordered By: Pietro Turner on 01-03-2024 HbA1c (Bld) [Mass fraction] 7.4 % 3.8-5.6 [facility] Comment on above: Normal < 5.7 % Predi abetic 5.7 - 6.4 % Diabetic >or= 6.5 % Please note range changes. Raegan 10-08-2023 CNPN Telephone (UCTR) ALIX LEE ([id number]) 1960 M Date Time Provider Department 10/08/23 [facility] During your visit today, we recorded the following information about you: Amanda Foster 10/08/2023 2:42 PM Signed Patient requesting a note sent in [employer] for employer. Poncho Michelle MD 10/08/2023 2:54 [...] Encounter Status:Closed by AMANDA FOSTER [facility] 10[facility]08[facility] ([id number]) 1960 Date Time Provider Department 10/08[facility]23 [facility], we recorded [...] return the following day. Eileen Boudreaux LPN, APRN.[facility] 10/08/2023 2:31 PM Signed Patient needs to [...] Encounter Status:Closed by AMANDA FOSTER on 10/08/23 [facility] Telephone (UCWSTR) ALIX LEE ([id number]) 1960 M Date Time Provider Department 10/06/23 [...] time he is taking Paxlovid. Melissa Milan APRN.[employer] HyunAnna hyattissa 10/08/2023 1:55 PM Signed Patient [...] Encounter Status:Closed by AMANDA FOSTER on 10/08/23 [facility] Bear 10-05-2023 [facility] Office Visit (UCWSTR ) ALIX LEE ([id number]) 1960 M Date Time Provider Department 10/05/23 [...] results from lab work dated: 09/24/2023 from [facility]. 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 If (more content not included)... Normal [facility] FLUABV + SARS-CoV-2 Pnl Resp JAZMINE+prbon 10-05-2023 Influenza virus A and B RNA and SARS-CoV-2 (COVID-19) N gene panel JAZMINE+probe (Resp) COVID 19 RESULT: Detected The method used is RT-PCR or an equivalent NAAT method. Reference Range (the expected result in uninfected individuals): Not detected INFLUENZA A PCR: Not detected INFLUENZA B PCR: Not detected Abnormal [facility] Comment on above: Performed By: #### [id number] #### [facility] CLIA [id number] [address] [place] [address] [place] [facility] Absolute lymphocyte countOrd ered By: Pietro Turner on 09-24-2023 Lymphocytes Auto (Unsp spec) [#/Vol] 1.45 10*3/uL 0.83-4.51 [facility] Basophil percentageOrdered B y: Pietro Turner on 09-24-2023 Basophils/100 WBC (Bld) 0.8 % 0-1 [facility] Bilirubin [Mass/Vol] 0.50 mg/dL 0.20-1.00 [facility] Comment on above: For patients on eltr ombopag therapy, use of Dimension [place] TBIL is not recommended. Chloride [Moles/Vol] 107 mmol/L 98-107 [facility] Cholesterol [Mass/Vol] 106 mg/dL <200 [facility] Comment on above: <200 mg/dL Desirable 200-240 mg/dL Borderline >240 mg/dL High Risk Eosinophils/100 WBC (Bld) 4.6 % 0-5 [facility] Glucose [Mass/Vol] 184 mg/dL 74-106 [facility] Comment on above: Fasting Glucose resu lt greater than or equal to 126 mg/dL suggests DIABETES MELLITUS per A.D.A. criteria. Neutrophils (Bld) [#/Vol] 5.4 10*3/uL 2.0-7.7 [facility] Neutrophils/100 WBC (Bld) 68.0 % 47-70 [facility] Potassium [Moles/Vol] 4.0 mmol/L 3.5-5.1 [facility] Protein [Mass/Vol] 7.3 g/dL 6.4-8.2 [facility] Sodium [Moles/Vol] 138 mmol/L 136-145 [facility] Testosterone [Mass/Vol] 430 ng/dL 264-916 [facility] Comment on above: Adult male reference interval is based on a population ofhealthy nonobese males (BMI <30) between 19 and 39 yearsold. Rick et.al. JCEM 2017,102;0127-2676. PMID:[id number]. Triglyceride [Mass/Vol] 352 mg/dL <199 [facility] Comment on above: The drugs N-Acetylcy steine and Metamizole may falsely depress this assay.Serum Triglycerides Reference Interval Normal <150 mg/dL Borderline high 150 - 199 mg/dL High 200 - 499 mg/dL Very High > or = 500 mg/dL WBC (Bld) [#/Vol] 7.9 10*3/uL 4.4-11.0 [facility] Blood erythrocytes count (nu mber/volume)Ordered By: Pietro Turner on 09-24-2023 RBC (Bld) [#/Vol] 4.46 10*6/uL 4.6-6.2 [facility] Blood hemoglobin measurement (mass/volume)Ordered By: Pietro Turner on 09-24-2023 Hemoglobin (Bld) [Mass/Vol] 13.2 g/dL 13.0-16.5 [facility] Blood lymphocytes/100 leukoc ytesOrdered By: Pietro Turner on 09-24-2023 Lymphocytes/100 WBC (Bld) 18.4 % 19-41 [facility] Blood monocytes/100 leukocyt esOrdered By: Pietro Turner on 09-24-2023 Monocytes/100 WBC (Bld) 7.7 % 0-10 [facility] Blood platelet mean volumeOr dered By: Pietro Turner on 09-24-2023 Platelet mean volume (Bld) [Entitic vol] 9.3 fL 6.2-12.0 [facility] Determination of erythrocyte mean corpuscular volume (MCV)Ordered By: Pietro Turner on 09-24-2023 MCV (RBC) [Entitic vol] 87.9 fL 80-94 [facility] Free testosterone percentage Ordered By: Pietro Turner on 09-24-2023 Testosterone Free/Testosterone.tota l [Mass fraction] 2.77 % 1.50-4.20 [facility] Comment on above: Performed at: [address] [id number] Director: Geovanny Moore PhD, Phone: [phone] at: [address] [id number] Director: Lyle Alves MD, Phone: [phone] Hematocrit Auto (Bld) [Volum e fraction]Ordered By: Pietro Turner on 09-24-2023 Hematocrit (Bld) [Volume fraction] 39.2 % 40-54 [facility] Laboratory - Chemistry and C hemistry - challengeOrdered By: Pietro Turner on 09-24-2023 ALP [Catalytic activity/Vol] 110 U/L 45-117 [facility] ALT [Catalytic activity/Vol] 47 U/L 16-61 [facility] CO2 [Moles/Vol] 23.0 mmol/L 21.0-32.0 [facility] Globulin (S) [Mass/Vol] 3.2 g/dL 2.2-4.2 [facility] Urea nitrogen/Creatinine [Mass ratio] 20.0 mg/mg 10-20 [facility] Laboratory - Hematology and Cell countsOrdered By: Pietro Turner on 09-24-2023 Erythrocyte distribution width (RBC) [Entitic vol] 42.0 fL 35.1-43.9 [facility] Erythrocyte distribution width (RBC) [Ratio] 13.2 % 11.6-14.6 [facility] Immature granulocytes/100 WBC (Bld) 0.500 % 0.0-0.9 [facility] Comment on above: IG% - Immature Granu locytes (promyelocytes, myelocytes and metamyelocytes) > 1% indicates that a LEFT SHIFT is Present. MCH (RBC) [Entitic mass] 29.6 pg 27.0-32.0 [facility] Nucleated RBC/100 WBC (Bld) [Ratio] 0 % 0-5 [facility] MCHC Auto (RBC) [Mass/Vol]Or dered By: Pietro Turner on 09-24-2023 MCHC (RBC) [Mass/Vol] 33.7 g/dL 32-36 [facility] No Panel InformationOrdered By: Pietro Turner on 09-24-2023 Estimated GFR (MDRD) Amer 83 mL/min >60 [facility] Comment on above: GFR Calc Estimated GFR (MDRD) Non-Af Amer 69 mL/min >60 [facility] Comment on above: Non- GFR Calc Thyroid Stimulating Hormone (TSH) 2.38 uIU/mL 0.358-3.74 [facility] Vitamin D 25-Hydroxy 24.9 ng/mL [facility] Comment on above: Vitamin D 25(OH) Sta tus Range Deficiency <20 ng/mL (50nmol/L) Insufficiency 20 - 30 ng/mL (50 - 75 nmol/L) Sufficiency 30 - 100 ng/mL (75 - 250 nmol/L) Toxicity >100 ng/mL (>250 nmol/L) Platelets bldOrdered By: Britni Turner on 09-24-2023 Platelets (Bld) [#/Vol] 201 10*3/uL 150-450 [facility] Serum or plasma albumin michelle urement (mass/volume)Ordered By: Pietro Turner on 09-24-2023 Albumin [Mass/Vol] 4.1 g/dL 3.2-5.0 [facility] Serum or plasma albumin/glob ulin mass ratioOrdered By: Pietro Turner on 09-24-2023 Albumin/Globulin [Mass ratio] 1.3 {ratio} 0.9-2.4 [facility] Serum or plasma calcium michelle urement (mass/volume)Ordered By: Pietro Turner on 09-24-2023 Calcium [Mass/Vol] 8.7 mg/dL 8.5-10.1 [facility] Serum or plasma cholesterol in HDL measurement (mass/volume)Ordered By: Pietro Turner on 09-24-2023 Cholesterol in HDL [Mass/Vol] 34 mg/dL >40 [facility] Comment on above: The drugs N-Acetylcy steine and Metamizole may falsely depress this assay. Reference Range HDL <40 mg/dL Low HDL Cholesterol HDL >or= 60 mg/dL High HDL Cholesterol Serum or plasma cholesterol in VLDL measurement (mass/volume)Ordered By: Pietro Turner on 09-24-2023 Cholesterol in VLDL [Mass/Vol] 70 mg/dL 5-40 [facility] Serum or plasma creatinine m easurement (mass/volume)Ordered By: Pietro Turner on 09-24-2023 Creatinine [Mass/Vol] 1.15 mg/dL 0.70-1.30 [facility] Comment on above: The validity of the calculated GFR & GFRAA in patients over 70 years has not been determined. Clinical correlation is essential. Serum or plasma low density lipoprotein (LDL) cholesterol measurement (mass/volume)Ordered By: Pietro Turner on 09-24-2023 Cholesterol in LDL [Mass/Vol] 2 mg/dL 0-130 [facility] Serum or plasma testosterone free measurement (mass/volume)Ordered By: Pietro Turner on 09-24-2023 Testosterone Free [Mass/Vol] 11.91 ng/dL 5.00-21.00 [facility] Serum or plasma urea nitroge n measurement (mass/volume)Ordered By: Pietro Turner on 09-24-2023 Urea nitrogen [Mass/Vol] 23 mg/dL 7-18 [facility] Thin prep Papanicolaou smear with manual screeningOrdered By: Pietro Turner on 09-24-2023 Thin prep Papanicolaou smear with manual screening 25 U/L 15-37 [facility] Thin prep Papanicolaou smear with manual screening 8 5-15 [facility] Whole blood hemoglobin A1c/t otal hemoglobin ratio (mass fraction)Ordered By: Pietro Turner on 09-24-2023 HbA1c (Bld) [Mass fraction] 6.9 % 3.8-5.6 [facility] Comment on above: Normal < 5.7 % Predi abetic 5.7 - 6.4 % Diabetic >or= 6.5 % Please note range changes. Basophil percentageOrdered B y: Leslie Holley on 03-30-2023 Bilirubin [Mass/Vol] 0.50 mg/dL 0.20-1.00 [facility] Comment on above: For patients on eltr ombopag therapy, use of Dimension [place] TBIL is not recommended. Chloride [Moles/Vol] 109 mmol/L 98-107 [facility] Glucose [Mass/Vol] 210 mg/dL 74-106 [facility] Comment on above: Glucose result great er than or equal to 200 mg/dLsuggests DIABETES MELLITUS per A.D.A. criteria. Potassium [Moles/Vol] 4.0 mmol/L 3.5-5.1 [facility] Comment on above: Moderate Hemolysis, Result may be falsely increased. Protein [Mass/Vol] 7.2 g/dL 6.4-8.2 [facility] Sodium [Moles/Vol] 140 mmol/L 136-145 [facility] Laboratory - Chemistry and C hemistry - challengeOrdered By: Leslie Holley on 03-30-2023 ALP [Catalytic activity/Vol] 110 U/L 45-117 [facility] ALT [Catalytic activity/Vol] 40 U/L 16-61 [facility] CO2 [Moles/Vol] 24.0 mmol/L 21.0-32.0 [facility] Globulin (S) [Mass/Vol] 3.2 g/dL 2.2-4.2 [facility] Urea nitrogen/Creatinine [Mass ratio] 25.6 mg/mg 10-20 [facility] No Panel InformationOrdered By: Leslie Holley on 03-30-2023 Estimated GFR (MDRD) Amer 78 mL/min >60 [facility] Comment on above: GFR Calc Estimated GFR (MDRD) Non-Af Amer 65 mL/min >60 [facility] Comment on above: Non- GFR Calc Serum or plasma C reactive p rotein measurement (mass/volume)Ordered By: Leslie Holley on 03-30-2023 CRP [Mass/Vol] mg/L 0.0-3.0 [facility] Comment on above: C-Reactive Protein ( CRP) provides useful information for thediagnosis, therapy and monitoring of inflammatory processesand associated diseases. For the evaluation of Relative Riskfor Cardiovascular Disease, a High Sensitivity CRP (HSCRP)should be ordered. Serum or plasma albumin michelle urement (mass/volume)Ordered By: Leslie Holley on 03-30-2023 Albumin [Mass/Vol] 4.0 g/dL 3.2-5.0 [facility] Serum or plasma albumin/glob ulin mass ratioOrdered By: Leslie Holley on 03-30-2023 Albumin/Globulin [Mass ratio] 1.2 {ratio} 0.9-2.4 [facility] Serum or plasma calcium michelle urement (mass/volume)Ordered By: Leslie Holley on 03-30-2023 Calcium [Mass/Vol] 9.6 mg/dL 8.5-10.1 [facility] Serum or plasma creatinine m easurement (mass/volume)Ordered By: Leslie Holley on 03-30-2023 Creatinine [Mass/Vol] 1.21 mg/dL 0.70-1.30 [facility] Comment on above: The validity of the calculated GFR & GFRAA in patients over 70 years has not been determined. Clinical correlation is essential. Serum or plasma urea nitroge n measurement (mass/volume)Ordered By: Leslie Holley on 03-30-2023 Urea nitrogen [Mass/Vol] 31 mg/dL 7-18 [facility] Thin prep Papanicolaou smear with manual screeningOrdered By: Leslie Holley on 03-30-2023 Thin prep Papanicolaou smear with manual screening 32 U/L 15-37 [facility] Comment on above: Moderate Hemolysis, Result may be falsely increased. Thin prep Papanicolaou smear with manual screening 7 5-15 [facility] Absolute lymphocyte countOrd ered By: Dr. Turner on 01-22-2023 Lymphocytes Auto (Unsp spec) [#/Vol] 1.71 10*3/uL 0.83-4.51 [facility] Basophil percentageOrdered B y: Dr. Turner on 01-22-2023 Basophils/100 WBC (Bld) 0.7 % 0-1 [facility] Bilirubin [Mass/Vol] 0.80 mg/dL 0.20-1.00 [facility] Comment on above: For patients on eltr ombopag therapy, use of Dimension [place] TBIL is not recommended. Chloride [Moles/Vol] 106 mmol/L 98-107 [facility] Eosinophils/100 WBC (Bld) 6.3 % 0-5 [facility] Glucose [Mass/Vol] 113 mg/dL 74-106 [facility] Comment on above: Fasting Glucose resu lt from 100 to 125 mg/dL suggests IMPAIRED HOMEOSTASIS per A.D.A. criteria. Neutrophils (Bld) [#/Vol] 5.1 10*3/uL 2.0-7.7 [facility] Neutrophils/100 WBC (Bld) 62.8 % 47-70 [facility] Potassium [Moles/Vol] 3.9 mmol/L 3.5-5.1 [facility] Protein [Mass/Vol] 7.3 g/dL 6.4-8.2 [facility] Sodium [Moles/Vol] 137 mmol/L 136-145 [facility] Testosterone [Mass/Vol] 306 ng/dL 264-916 [facility] Comment on above: Adult male reference interval is based on a population ofhealthy nonobese males (BMI <30) between 19 and 39 yearsold. Rick et.al. JCEM 2017,102;2838-8163. PMID:[id number]. WBC (Bld) [#/Vol] 8.2 10*3/uL 4.4-11.0 [facility] Blood erythrocytes count (nu mber/volume)Ordered By: Dr. Turner on 01-22-2023 RBC (Bld) [#/Vol] 4.15 10*6/uL 4.6-6.2 [facility] Blood hemoglobin measurement (mass/volume)Ordered By: Dr. Turner on 01-22-2023 Hemoglobin (Bld) [Mass/Vol] 12.6 g/dL 13.0-16.5 [facility] Blood lymphocytes/100 leukoc ytesOrdered By: Dr. Turner on 01-22-2023 Lymphocytes/100 WBC (Bld) 20.9 % 19-41 [facility] Blood monocytes/100 leukocyt esOrdered By: Dr. Turner on 01-22-2023 Monocytes/100 WBC (Bld) 8.9 % 0-10 [facility] Blood platelet mean volumeOr dered By: Dr. Turner on 01-22-2023 Platelet mean volume (Bld) [Entitic vol] 9.4 fL 6.2-12.0 [facility] Determination of erythrocyte mean corpuscular volume (MCV)Ordered By: Dr. Turner on 01-22-2023 MCV (RBC) [Entitic vol] 90.1 fL 80-94 [facility] Free testosterone percentage Ordered By: Dr. Turner on 01-22-2023 Testosterone Free/Testosterone.tota l [Mass fraction] 3.19 % 1.50-4.20 [facility] Comment on above: Performed at: [address] [id number] Director: Geovanny Moore PhD, Phone: [phone] at: [facility] [id number] Director: Lyle Alves MD, Phone: [phone] Hematocrit Auto (Bld) [Volum e fraction]Ordered By: Dr. Turner on 01-22-2023 Hematocrit (Bld) [Volume fraction] 37.4 % 40-54 [facility] Iron measurement (mass/mass) Ordered By: Dr. Turner on 01-22-2023 Iron (Unsp spec) [Mass/Mass] 81 ug/dL 65-175 [facility] - Chemistry and C hemistry - challengeOrdered By: Dr. Turner on 01-22-2023 ALP [Catalytic activity/Vol] 108 U/L 45-117 [facility] ALT [Catalytic activity/Vol] 56 U/L 16-61 [facility] CO2 [Moles/Vol] 25.0 mmol/L 21.0-32.0 [facility] Cobalamin (Vitamin B12) [Mass/Vol] 701 pg/mL 211-911 [facility] Globulin (S) [Mass/Vol] 3.3 g/dL 2.2-4.2 [facility] Urea nitrogen/Creatinine [Mass ratio] 22.0 mg/mg 10-20 [facility] - Hematology and Cell countsOrdered By: Dr. Turner on 01-22-2023 Erythrocyte distribution width (RBC) [Entitic vol] 45.6 fL 35.1-43.9 [facility] Erythrocyte distribution width (RBC) [Ratio] 14.1 % 11.6-14.6 [facility] Immature granulocytes/100 WBC (Bld) 0.400 % 0.0-0.9 [facility] Comment on above: IG% - Immature Granu locytes (promyelocytes, myelocytes and metamyelocytes) > 1% indicates that a LEFT SHIFT is Present. MCH (RBC) [Entitic mass] 30.4 pg 27.0-32.0 [facility] Nucleated RBC/100 WBC (Bld) [Ratio] 0 % 0-5 [facility] MCHC Auto (RBC) [Mass/Vol]Or dered By: Dr. Turner on 01-22-2023 MCHC (RBC) [Mass/Vol] 33.7 g/dL 32-36 [facility] No Panel InformationOrdered By: Dr. Turner on 01-22-2023 Estimated GFR (MDRD) Amer 81 mL/min >60 [facility] Comment on above: GFR Calc Estimated GFR (MDRD) Non-Af Amer 67 mL/min >60 [facility] Comment on above: Non- GFR Calc Thyroid Stimulating Hormone (TSH) 3.33 uIU/mL 0.358-3.74 [facility] Total Iron Binding Capacity 378 ug/dL 250-450 [facility] Vitamin D 25-Hydroxy 34.5 ng/mL [facility] Comment on above: Vitamin D 25(OH) Sta tus Range Deficiency <20 ng/mL (50nmol/L) Insufficiency 20 - 30 ng/mL (50 - 75 nmol/L) Sufficiency 30 - 100 ng/mL (75 - 250 nmol/L) Toxicity >100 ng/mL (>250 nmol/L) Platelets bldOrdered By: Dr. Turner on 01-22-2023 Platelets (Bld) [#/Vol] 196 10*3/uL 150-450 [facility] Serum or plasma albumin michelle urement (mass/volume)Ordered By: Dr. Turner on 01-22-2023 Albumin [Mass/Vol] 4.0 g/dL 3.2-5.0 [facility] Serum or plasma albumin/glob ulin mass ratioOrdered By: Dr. Turner on 01-22-2023 Albumin/Globulin [Mass ratio] 1.2 {ratio} 0.9-2.4 [facility] [facility] Serum or plasma calcium michelle urement (mass/volume)Ordered By: Dr. Turner on 01-22-2023 Calcium [Mass/Vol] 9.1 mg/dL 8.5-10.1 [facility] Serum or plasma creatinine m easurement (mass/volume)Ordered By: Dr. Turner on 01-22-2023 Creatinine [Mass/Vol] 1.18 mg/dL 0.70-1.30 [facility] Comment on above: The validity of the calculated GFR & GFRAA in patients over 70 years has not been determined. Clinical correlation is essential. Serum or plasma iron saturat ion measurement (mass fraction)Ordered By: Dr. Turner on 01-22-2023 Iron saturation [Mass fraction] 21.4 % 15.0-55.0 [facility] Serum or plasma testosterone free measurement (mass/volume)Ordered By: Dr. Turner on 01-22-2023 Testosterone Free [Mass/Vol] 9.76 ng/dL 5.00-21.00 [facility] Serum or plasma urea nitroge n measurement (mass/volume)Ordered By: Dr. Turner on 01-22-2023 Urea nitrogen [Mass/Vol] 26 mg/dL 7-18 [facility] Thin prep Papanicolaou smear with manual screeningOrdered By: Dr. Turner on 01-22-2023 Thin prep Papanicolaou smear with manual screening 32 U/L 15-37 [facility] Thin prep Papanicolaou smear with manual screening 6 5-15 [facility] Whole blood hemoglobin A1c/t otal hemoglobin ratio (mass fraction)Ordered By: Dr. Turner on 01-22-2023 HbA1c (Bld) [Mass fraction] 6.8 % 3.8-5.6 [facility] Comment on above: Normal < 5.7 % Predi abetic 5.7 - 6.4 % Diabetic >or= 6.5 % Please note range changes. Absolute lymphocyte counton 10-18-2022 Lymphocytes Auto (Unsp spec) [#/Vol] 1.42 10*3/uL 0.83-4.51 [facility] Work Phone: Basophil percentageon 2021 Basophils/100 WBC (Bld) 0.9 % 0-1 [facility] Work Phone: Bilirubin [Mass/Vol] 0.70 mg/dL 0.20-1.00 [facility] Work Phone: Comment on above: For patients on eltr ombopag therapy, use of Dimension [place] TBIL is not recommended. Chloride [Moles/Vol] 103 mmol/L 98-107 [facility] Work Phone: Cholesterol [Mass/Vol] 109 mg/dL <200 [facility] Work Phone: Comment on above: <200 mg/dL Desirable 200-240 mg/dL Borderline >240 mg/dL High Risk Eosinophils/100 WBC (Bld) 5.4 % 0-5 [facility] Work Phone: Glucose [Mass/Vol] 175 mg/dL 74-106 [facility] Work Phone: Comment on above: Fasting Glucose resu lt greater than or equal to 126 mg/dL suggests DIABETES MELLITUS per A.D.A. criteria. Neutrophils (Bld) [#/Vol] 5.3 10*3/uL 2.0-7.7 [facility] Work Phone: Neutrophils/100 WBC (Bld) 66.0 % 47-70 [facility] Work Phone: Potassium [Moles/Vol] 4.4 mmol/L 3.5-5.1 [facility] Work Phone: Protein [Mass/Vol] 7.6 g/dL 6.4-8.2 [facility] Work Phone: Sodium [Moles/Vol] 136 mmol/L 136-145 [facility] Work Phone: Triglyceride [Mass/Vol] 212 mg/dL <199 [facility] Work Phone: Comment on above: The drugs N-Acetylcy steine and Metamizole may falsely depress this assay.Serum Triglycerides Reference Interval Normal <150 mg/dL Borderline high 150 - 199 mg/dL High 200 - 499 mg/dL Very High > or = 500 mg/dL WBC (Bld) [#/Vol] 8.0 10*3/uL 4.4-11.0 [facility] Work Phone: Blood erythrocytes count (nu mber/volume)on 10-18-2022 RBC (Bld) [#/Vol] 4.32 10*6/uL 4.6-6.2 [facility] Work Phone: Blood hemoglobin measurement (mass/volume)on 10-18-2022 Hemoglobin (Bld) [Mass/Vol] 13.3 g/dL 13.0-16.5 [facility] Work Phone: Blood lymphocytes/100 leukoc yteson 10-18-2022 Lymphocytes/100 WBC (Bld) 17.7 % 19-41 [facility] Work Phone: Blood monocytes/100 leukocyt eson 10-18-2022 Monocytes/100 WBC (Bld) 9.5 % 0-10 [facility] Work Phone: Blood platelet mean volumeon 10-18-2022 Platelet mean volume (Bld) [Entitic vol] 9.6 fL 6.2-12.0 [facility] Work Phone: Determination of erythrocyte mean corpuscular volume (MCV)on 10-18-2022 MCV (RBC) [Entitic vol] 88.0 fL 80-94 [facility] Work Phone: Hematocrit Auto (Bld) [Volum e fraction]on 10-18-2022 Hematocrit (Bld) [Volume fraction] 38.0 % 40-54 [facility] Work Phone: Laboratory - Chemistry and C hemistry - challengeon 10-18-2022 ALP [Catalytic activity/Vol] 111 U/L 45-117 [facility] Work Phone: ALT [Catalytic activity/Vol] 65 U/L 16-61 [facility] Work Phone: CO2 [Moles/Vol] 24.0 mmol/L 21.0-32.0 [facility] Work Phone: Free T4 [Mass/Vol] 0.98 ng/dL 0.76-1.46 [facility] Work Phone: Globulin (S) [Mass/Vol] 3.5 g/dL 2.2-4.2 [facility] Work Phone: Urea nitrogen/Creatinine [Mass ratio] 18.7 mg/mg 10-20 [facility] Work Phone: Laboratory - Hematology and Cell countson 10-18-2022 Erythrocyte distribution width (RBC) [Entitic vol] 44.0 fL 35.1-43.9 [facility] Work Phone: Erythrocyte distribution width (RBC) [Ratio] 13.8 % 11.6-14.6 [facility] Work Phone: Immature granulocytes/100 WBC (Bld) 0.500 % 0.0-0.9 [facility] Work Phone: Comment on above: IG% - Immature Granu locytes (promyelocytes, myelocytes and metamyelocytes) > 1% indicates that a LEFT SHIFT is Present. MCH (RBC) [Entitic mass] 30.8 pg 27.0-32.0 [facility] Work Phone: Nucleated RBC/100 WBC (Bld) [Ratio] 0 % 0-5 [facility] Work Phone: HbA1c (Bld) [Mass fraction] 7.2 % 4.2-6.3 [facility] Work Phone: MCHC Auto (RBC) [Mass/Vol]on 10-18-2022 MCHC (RBC) [Mass/Vol] 35.0 g/dL 32-36 [facility] Work Phone: No Panel Informationon 10-18 Estimated GFR (MDRD) Amer 91 mL/min >60 [facility] Work Phone: Comment on above: GFR Calc Estimated GFR (MDRD) Non-Af Amer 75 mL/min >60 [facility] Work Phone: Comment on above: Non- GFR Calc Free Triiodothyronine (T3) pg/dL 2.9 pg/mL 2.18-3.98 [facility] Work Phone: Prostate Specific Antigen Screen 0.20 ng/mL 0.00-4.00 [facility] Work Phone: Comment on above: This test was perfor med using the TPSA assay method for [employer] chemistry system. Values obtained with differentassay methods cannot be used interchangably.When changing PSA assays in the course of monitoring apatient, additional sequential testing should be carriedout to confirm baseline values. Thyroid Stimulating Hormone (TSH) 5.02 uIU/mL 0.358-3.74 [facility] Work Phone: Platelets bldon 10-18-2022 Platelets (Bld) [#/Vol] 238 10*3/uL 150-450 [facility] Work Phone: Serum or plasma albumin michelle urement (mass/volume)on 10-18-2022 Albumin [Mass/Vol] 4.1 g/dL 3.2-5.0 [facility] Work Phone: Serum or plasma albumin/glob ulin mass ratioon 10-18-2022 Albumin/Globulin [Mass ratio] 1.2 {ratio} 0.9-2.4 [facility] Work Phone: Serum or plasma calcium michelle urement (mass/volume)on 10-18-2022 Calcium [Mass/Vol] 9.3 mg/dL 8.5-10.1 [facility] Work Phone: Serum or plasma cholesterol in HDL measurement (mass/volume)on 10-18-2022 Cholesterol in HDL [Mass/Vol] 38 mg/dL >40 [facility] Work Phone: Comment on above: The drugs N-Acetylcy steine and Metamizole may falsely depress this assay. Reference Range HDL <40 mg/dL Low HDL Cholesterol HDL >or= 60 mg/dL High HDL Cholesterol Serum or plasma cholesterol in VLDL measurement (mass/volume)on 10-18-2022 Cholesterol in VLDL [Mass/Vol] 42 mg/dL 5-40 [facility] Work Phone: Serum or plasma creatinine m easurement (mass/volume)on 10-18-2022 Creatinine [Mass/Vol] 1.07 mg/dL 0.70-1.30 [facility] Work Phone: Comment on above: The validity of the calculated GFR & GFRAA in patients over 70 years has not been determined. Clinical correlation is essential. Serum or plasma low density lipoprotein (LDL) cholesterol measurement (mass/volume)on 10-18-2022 Cholesterol in LDL [Mass/Vol] 29 mg/dL 0-130 [facility] Work Phone: Serum or plasma urea nitroge n measurement (mass/volume)on 10-18-2022 Urea nitrogen [Mass/Vol] 20 mg/dL 7-18 [facility] Work Phone: Thin prep Papanicolaou smear with manual screeningon 10-18-2022 Thin prep Papanicolaou smear with manual screening 27 U/L 15-37 [facility] Work Phone: Thin prep Papanicolaou smear with manual screening 9 5-15 [facility] Work Phone: Basophil percentageon 2021 Testosterone [Mass/Vol] 268 ng/dL 264-916 [facility] Work Phone: Comment on above: Adult male reference interval is based on a population ofhealthy nonobese males (BMI <30) between 19 and 39 yearsold. chava Cabrera.al. JCEM 2017,102;7196-8581. PMID:[id number]. Free testosterone percentage on 09-27-2022 Testosterone Free/Testosterone.tota l [Mass fraction] 2.86 % 1.50-4.20 [facility] Work Phone: Comment on above: Performed at: - [address] [id number] Director: Geovanny Moore PhD, Phone: [phone] at: - [facility] [address] [id number] Director: Lyle Alves MD, Phone: [phone] Serum or plasma testosterone free measurement (mass/volume)on 09-27-2022 Testosterone Free [Mass/Vol] 7.66 ng/dL 5.00-21.00 [facility] Work Phone: Laboratory - Hematology and Cell countson 07-19-2022 HbA1c (Bld) [Mass fraction] 7.0 % 4.2-6.3 [facility] Work Phone: Absolute lymphocyte counton 05-08-2022 Lymphocytes Auto (Unsp spec) [#/Vol] 1.49 10*3/uL 0.83-4.51 [facility] Work Phone: Basophil percentageon 2021 Basophils/100 WBC (Bld) 0.8 % 0-1 [facility] Work Phone: Bilirubin [Mass/Vol] 0.40 mg/dL 0.20-1.00 [facility] Work Phone: Comment on above: For patients on eltr ombopag therapy, use of Dimension [place] TBIL is not recommended. Chloride [Moles/Vol] 104 mmol/L 98-107 [facility] Work Phone: Eosinophils/100 WBC (Bld) 4.4 % 0-5 [facility] Work Phone: Glucose [Mass/Vol] 151 mg/dL 74-106 [facility] Work Phone: Comment on above: Fasting Glucose resu lt greater than or equal to 126 mg/dL suggests DIABETES MELLITUS per A.D.A. criteria. Neutrophils (Bld) [#/Vol] 5.3 10*3/uL 2.0-7.7 [facility] Work Phone: [phone] Neutrophils/100 WBC (Bld) 67.5 % 47-70 [facility] Work Phone: [phone] Potassium [Moles/Vol] 3.9 mmol/L 3.5-5.1 [facility] Work Phone: [phone] Protein [Mass/Vol] 6.9 g/dL 6.4-8.2 [facility] Work Phone: Sodium [Moles/Vol] 140 mmol/L 136-145 [facility] Work Phone: [phone] Testosterone [Mass/Vol] 166 ng/dL 264-916 [facility] Work Phone: Comment on above: Adult male reference interval is based on a population ofhealthy nonobese males (BMI <30) between 19 and 39 yearsold. Rick et.al. JCEM 2017,102;2305-3492. PMID:[id number]. WBC (Bld) [#/Vol] 7.9 10*3/uL 4.4-11.0 [facility] Work Phone: Blood erythrocytes count (nu mber/volume)on 05-08-2022 RBC (Bld) [#/Vol] 3.77 10*6/uL 4.6-6.2 [facility] Work Phone: Blood hemoglobin measurement (mass/volume)on 05-08-2022 Hemoglobin (Bld) [Mass/Vol] 11.7 g/dL 13.0-16.5 [facility] Work Phone: Blood lymphocytes/100 leukoc yteson 05-08-2022 Lymphocytes/100 WBC (Bld) 18.9 % 19-41 [facility] Work Phone: Blood monocytes/100 leukocyt eson 05-08-2022 Monocytes/100 WBC (Bld) 8.0 % 0-10 [facility] Work Phone: [phone] Blood platelet mean volumeon 05-08-2022 Platelet mean volume (Bld) [Entitic vol] 9.8 fL 6.2-12.0 [facility] Work Phone: Determination of erythrocyte mean corpuscular volume (MCV)on 05-08-2022 MCV (RBC) [Entitic vol] 90.2 fL 80-94 [facility] Work Phone: Free testosterone percentage on 05-08-2022 Testosterone Free/Testosterone.tota l [Mass fraction] 2.11 % 1.50-4.20 [facility] Work Phone: Comment on above: Performed at: [address] [id number] Director: Geovanny Moore PhD, Phone: [phone] at: [facility] [id number] Director: Lyle Alves MD, Phone: [phone] Hematocrit Auto (Bld) [Volum e fraction]on 05-08-2022 Hematocrit (Bld) [Volume fraction] 34.0 % 40-54 [facility] Work Phone: Iron measurement (mass/mass) on 05-08-2022 Iron (Unsp spec) [Mass/Mass] 55 ug/dL 65-175 [facility] Work Phone: Laboratory - Chemistry and C hemistry - challengeon 05-08-2022 ALP [Catalytic activity/Vol] 103 U/L 45-117 [facility] Work Phone: ALT [Catalytic activity/Vol] 52 U/L 16-61 [facility] Work Phone: CO2 [Moles/Vol] 28.0 mmol/L 21.0-32.0 [facility] Work Phone: Globulin (S) [Mass/Vol] 3.0 g/dL 2.2-4.2 [facility] Work Phone: Urea nitrogen/Creatinine [Mass ratio] 20.8 mg/mg 10-20 [facility] Work Phone: Laboratory - Hematology and Cell countson 05-08-2022 Erythrocyte distribution width (RBC) [Entitic vol] 43.3 fL 35.1-43.9 [facility] Work Phone: Erythrocyte distribution width (RBC) [Ratio] 13.3 % 11.6-14.6 [facility] Work Phone: Immature granulocytes/100 WBC (Bld) 0.400 % 0.0-0.9 [facility] Work Phone: Comment on above: IG% - Immature Granu locytes (promyelocytes, myelocytes and metamyelocytes) > 1% indicates that a LEFT SHIFT is Present. MCH (RBC) [Entitic mass] 31.0 pg 27.0-32.0 [facility] Work Phone: Nucleated RBC/100 WBC (Bld) [Ratio] 0 % 0-5 [facility] Work Phone: MCHC Auto (RBC) [Mass/Vol]on 05-08-2022 MCHC (RBC) [Mass/Vol] 34.4 g/dL 32-36 [facility] Work Phone: No Panel Informationon 05-08 Estimated GFR (MDRD) Amer 92 mL/min >60 [facility] Work Phone: Comment on above: GFR Calc Estimated GFR (MDRD) Non-Af Amer 76 mL/min >60 [facility] Work Phone: Comment on above: Non- GFR Calc Total Iron Binding Capacity 351 ug/dL 250-450 [facility] Work Phone: Platelets bldon 05-08-2022 Platelets (Bld) [#/Vol] 200 10*3/uL 150-450 [facility] Work Phone: Serum or plasma albumin michelle urement (mass/volume)on 05-08-2022 Albumin [Mass/Vol] 3.9 g/dL 3.2-5.0 [facility] Work Phone: Serum or plasma albumin/glob ulin mass ratioon 05-08-2022 Albumin/Globulin [Mass ratio] 1.3 {ratio} 0.9-2.4 [facility] Work Phone: Serum or plasma calcium michelle urement (mass/volume)on 05-08-2022 Calcium [Mass/Vol] 9.4 mg/dL 8.5-10.1 [facility] [...] Iron saturation [Mass fraction] 15.7 % 15.0-55.0 [facility] Work Phone: Serum or plasma testosterone free measurement (mass/volume)on 05-08-2022 Testosterone Free [Mass/Vol] 3.50 ng/dL 5.00-21.00 [facility] Work Phone: Serum or plasma urea nitroge n measurement (mass/volume)on 05-08-2022 Urea nitrogen [Mass/Vol] 22 mg/dL 7-18 [facility] Work Phone: Thin prep Papanicolaou smear with manual screeningon 05-08-2022 Thin prep Papanicolaou smear with manual screening 34 U/L 15-37 [facility] Work Phone: Thin prep Papanicolaou smear with manual screening 8 5-15 [facility] Work Phone: Whole blood hemoglobin A1c/t otal hemoglobin ratio (mass fraction)on 05-08-2022 HbA1c (Bld) [Mass fraction] 6.2 % 3.8-5.6 [facility] Work Phone: Comment on above: Normal < 5.7 % Predi abetic 5.7 - 6.4 % Diabetic >or= 6.5 % Please note range changes. Basophil percentageon 2021 Bilirubin [Mass/Vol] 0.50 mg/dL 0.20-1.00 [facility] Work Phone: Comment on above: For patients on eltr ombopag therapy, use of Dimension [place] TBIL is not recommended. Cholesterol [Mass/Vol] 99 mg/dL <200 [facility] Work Phone: Comment on above: <200 mg/dL Desirable 200-240 mg/dL Borderline >240 mg/dL High Risk Protein [Mass/Vol] 6.9 g/dL 6.4-8.2 [facility] Work Phone: Triglyceride [Mass/Vol] 157 mg/dL <199 [facility] Work Phone: Comment on above: The drugs N-Acetylcy steine and Metamizole may falsely depress this assay.Serum Triglycerides Reference Interval Normal <150 mg/dL Borderline high 150 - 199 mg/dL High 200 - 499 mg/dL Very High > or = 500 mg/dL Direct bilirubinon 2 Bilirubin.direct [Mass/Vol] 0.14 mg/dL 0.00-0.30 [facility] Work Phone: Laboratory - Chemistry and C hemistry - challengeon 04-24-2022 ALP [Catalytic activity/Vol] 115 U/L 45-117 [facility] Work Phone: ALT [Catalytic activity/Vol] 57 U/L 16-61 [facility] Work Phone: Globulin (S) [Mass/Vol] 3.1 g/dL 2.2-4.2 [facility] Work Phone: Serum or plasma albumin michelle urement (mass/volume)on 04-24-2022 Albumin [Mass/Vol] 3.8 g/dL 3.2-5.0 [facility] Work Phone: Serum or plasma cholesterol in HDL measurement (mass/volume)on 04-24-2022 Cholesterol in HDL [Mass/Vol] 41 mg/dL >40 [facility] Work Phone: Comment on above: The drugs N-Acetylcy steine and Metamizole may falsely depress this assay. Reference Range HDL <40 mg/dL Low HDL Cholesterol HDL >or= 60 mg/dL High HDL Cholesterol Serum or plasma cholesterol in VLDL measurement (mass/volume)on 04-24-2022 Cholesterol in VLDL [Mass/Vol] 31 mg/dL 5-40 [facility] Work Phone: Serum or plasma low density lipoprotein (LDL) cholesterol measurement (mass/volume)on 04-24-2022 Cholesterol in LDL [Mass/Vol] 27 mg/dL 0-130 [facility] Work Phone: Thin prep Papanicolaou smear with manual screeningon 04-24-2022 Thin prep Papanicolaou smear with manual screening 30 U/L 15-37 [facility] Work Phone: Comment on above: Slight Hemolysis, Re sult may be falsely increased. Absolute lymphocyte counton 02-16-2022 Lymphocytes Auto (Unsp spec) [#/Vol] 1.97 10*3/uL 0.83-4.51 [facility] Work Phone: Basophil percentageon 2021 Basophils/100 WBC (Bld) 0.9 % 0-1 [facility] Work Phone: Bilirubin [Mass/Vol] 0.60 mg/dL 0.20-1.00 [facility] Work Phone: Comment on above: For patients on eltr ombopag therapy, use of Dimension [place] TBIL is not recommended. Chloride [Moles/Vol] 105 mmol/L 98-107 [facility] Work Phone: Eosinophils/100 WBC (Bld) 4.7 % 0-5 [facility] Work Phone: Glucose [Mass/Vol] 129 mg/dL 74-106 [facility] Work Phone: Comment on above: Fasting Glucose resu lt greater than or equal to 126 mg/dL suggests DIABETES MELLITUS per A.D.A. criteria. Neutrophils (Bld) [#/Vol] 5.2 10*3/uL 2.0-7.7 [facility] Work Phone: Neutrophils/100 WBC (Bld) 61.2 % 47-70 [facility] Work Phone: Potassium [Moles/Vol] 4.2 mmol/L 3.5-5.1 [facility] Work Phone: Protein [Mass/Vol] 7.1 g/dL 6.4-8.2 [facility] Work Phone: Sodium [Moles/Vol] 138 mmol/L 136-145 [facility] Work Phone: WBC (Bld) [#/Vol] 8.4 10*3/uL 4.4-11.0 [facility] Work Phone: Blood erythrocytes count (nu mber/volume)on 02-16-2022 RBC (Bld) [#/Vol] 3.96 10*6/uL 4.6-6.2 [facility]: Blood hemoglobin measurement (mass/volume)on 02-16-2022 Hemoglobin (Bld) [Mass/Vol] 12.0 g/dL 13.0-16.5 [facility] Work Phone: Blood lymphocytes/100 leukoc yteson 02-16-2022 Lymphocytes/100 WBC (Bld) 23.4 % 19-41 [facility] Work Phone: [phone] Blood monocytes/100 leukocyt eson 02-16-2022 Monocytes/100 WBC (Bld) 9.3 % 0-10 [facility] Work Phone: Blood platelet mean volumeon 02-16-2022 Platelet mean volume (Bld) [Entitic vol] 9.3 fL 6.2-12.0 [facility] Work Phone: Determination of erythrocyte mean corpuscular volume (MCV)on 02-16-2022 MCV (RBC) [Entitic vol] 88.9 fL 80-94 [facility] Work Phone: Hematocrit Auto (Bld) [Volum e fraction]on 02-16-2022 Hematocrit (Bld) [Volume fraction] 35.2 % 40-54 [facility] Work Phone: Laboratory - Chemistry and C hemistry - challengeon 02-16-2022 ALP [Catalytic activity/Vol] 106 U/L 45-117 [facility] Work Phone: ALT [Catalytic activity/Vol] 58 U/L 16-61 [facility] Work Phone: CO2 [Moles/Vol] 27.0 mmol/L 21.0-32.0 [facility] Work Phone: Globulin (S) [Mass/Vol] 3.1 g/dL 2.2-4.2 [facility] Work Phone: Urea nitrogen/Creatinine [Mass ratio] 22.8 mg/mg 10-20 [facility] Work Phone: Laboratory - Hematology and Cell countson 02-16-2022 Erythrocyte distribution width (RBC) [Entitic vol] 43.9 fL 35.1-43.9 [facility] Work Phone: Erythrocyte distribution width (RBC) [Ratio] 13.5 % 11.6-14.6 [facility] Work Phone: Immature granulocytes/100 WBC (Bld) 0.500 % 0.0-0.9 [facility] Work Phone: Comment on above: IG% - Immature Granu locytes (promyelocytes, myelocytes and metamyelocytes) > 1% indicates that a LEFT SHIFT is Present. MCH (RBC) [Entitic mass] 30.3 pg 27.0-32.0 [facility] Work Phone: Nucleated RBC/100 WBC (Bld) [Ratio] 0 % 0-5 [facility] Work Phone: MCHC Auto (RBC) [Mass/Vol]on 02-16-2022 MCHC (RBC) [Mass/Vol] 34.1 g/dL 32-36 [facility] Work Phone: No Panel Informationon 02-16 Estimated GFR (MDRD) Amer 114 mL/min >60 [facility] Work Phone: Comment on above: GFR Calc Estimated GFR (MDRD) Non-Af Amer 94 mL/min >60 [facility] Work Phone: Comment on above: Non- GFR Calc Platelets bldon 02-16-2022 Platelets (Bld) [#/Vol] 203 10*3/uL 150-450 [facility] Work Phone: Serum or plasma albumin michelle urement (mass/volume)on 02-16-2022 Albumin [Mass/Vol] 4.0 g/dL 3.2-5.0 [facility] Work Phone: Serum or plasma albumin/glob ulin mass ratioon 02-16-2022 Albumin/Globulin [Mass ratio] 1.3 {ratio} 0.9-2.4 [facility] Work Phone: Serum or plasma calcium michelle urement (mass/volume)on 02-16-2022 Calcium [Mass/Vol] 9.2 mg/dL 8.5-10.1 [facility] Work Phone: Serum or plasma creatinine m easurement (mass/volume)on 02-16-2022 Creatinine [Mass/Vol] 0.88 mg/dL 0.70-1.30 [facility] Work Phone: Comment on above: The validity of the calculated GFR & GFRAA in patients over 70 years has not been determined. Clinical correlation is essential. Serum or plasma urea nitroge n measurement (mass/volume)on 02-16-2022 Urea nitrogen [Mass/Vol] 20 mg/dL 7-18 [facility] Work Phone: Thin prep Papanicolaou smear with manual screeningon 02-16-2022 Thin prep Papanicolaou smear with manual screening 41 U/L 15-37 [facility] Work Phone: Thin prep Papanicolaou smear with manual screening 6 5-15 [facility] Work Phone: No Panel Informationon 01-11 MTHFR Thermolabile Variant DNA Anal Comment . 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 See Additional Clinical Informationand Comments.Additional Clinical Information:Hyperhomocysteinemia is multifactorial involving genetic,clinical, and environmental risk factors. Reduced enzymeactivity of methylenetetrahydrofolate reductase (MTHFR) robin genetic risk factor for hyperhomocysteinemia,particularly when serum folate levels are low. There aretwo common variants in the MTHFR gene that can decreaseenzyme activity; c.665C>T (p. [id number]), legacy [id number], and c.1286A>C (p. [id number]), legacy name [id number].These variants do not independently increase risk ofconditions [...] due to limited evidence of clinical utility(PMID: [id number]). Comments:Genetic Coordinators are available for health careproviders to discuss results at [phone] (8597).Test Details:Variants Analyzed: c.665C>T (p. [id number]), legacy name:[id number] and c.1286A>C (p. [id number]), legacy name: [id number]/Limitations:DNA analysis of the MTHFR gene was performed [...] Drug Administration.References:Rachelle SE, Malachi CJ, Yoan BROOKS. [facility] PracticeGuideline: lack of evidence for MTHFR polymorphism testing.Amanda Med. 2012;15(2):153-6. doi: 10.1038/gim.2012.165.Epub 2012Oct 31. PMID: 86490415.[employer] [employer]'Committee on Practice Bulletins-Obstetrics. [facility] PracticeBulletin No. 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 2018 Apr;132(1):e18-e34. doi:10.1097/AOG.[id number]. Erratum in: Obstet Gynecol.2018 Jul;132(4):1069. PMID: 09435719.Amanda Marcus, PhD, Pamela Ca, PhD, Carina Liz, PhD, Bhavya Golden, PhD, FACMGW. Anna Davis, PhD, Josselyn Christy, PhD, Missy Buckley, PhD, FACMGPerformed at: TG - [facility] [id number] [place], [place] [id number] Director: Ryan Washington [facility], Phone: [phone] Thin prep Papanicolaou smear with manual screeningon 01-11-2022 Thin prep Papanicolaou smear with manual screening Not Reportable [facility] Work Phone: Basophil percentageon 2021 Testosterone [Mass/Vol] 232 ng/dL [facility] Work Phone: Comment on above: Adult male reference interval is based on a population ofhealthy nonobese males (BMI <30) between 19 and 39 yearsold. chava Cabrera.al. JCEM 2017,102;9774-0560. PMID:28513493. Free testosterone percentage on 12-22-2021 Testosterone Free/Testosterone.tota l [Mass fraction] 3.43 % [facility] Work Phone: Comment on above: Performed at: - [address] [id number] Director: Geovanny Moore PhD, Phone: [phone] at: [facility] [address] [id number] Director: Lyle Alves MD, Phone: [phone] Iron measurement (mass/mass) on 12-22-2021 Iron (Unsp spec) [Mass/Mass] 93 ug/dL 65-175 [facility] Work Phone: No Panel Informationon 12-22 Total Iron Binding Capacity 394 ug/dL 250-450 [facility] Work Phone: Vitamin D 25-Hydroxy 23.3 ng/mL [facility] Work Phone: Comment on above: Vitamin D 25(OH) Sta tus Range Deficiency <20 ng/mL (50nmol/L) Insufficiency 20 - 30 ng/mL (50 - 75 nmol/L) Sufficiency 30 - 100 ng/mL (75 - 250 nmol/L) Toxicity >100 ng/mL (>250 nmol/L) Serum or plasma iron saturat ion measurement (mass fraction)on 12-22-2021 Iron saturation [Mass fraction] 23.6 % 15.0-55.0 [facility] Work Phone: Serum or plasma testosterone free measurement (mass/volume)on 12-22-2021 Testosterone Free [Mass/Vol] 7.96 ng/dL [facility] Work Phone: Absolute lymphocyte counton 10-31-2021 Lymphocytes Auto (Unsp spec) [#/Vol] 1.04 10*3/uL 0.83-4.51 [facility] Work Phone: Activated partial thrombopla stin time (aPTT) in platelet poor plasma by coagulation aon 10-31-2021 aPTT Coag (PPP) [Time] 38.4 s 24.1-36.2 [facility] Work Phone: Comment on above: Previous reported re sult: 28.2 SecondsEdited by: TPHBRIAN on 10/31/21:1314 AMENDED REPORT 10/31/21 1314 PTT previously reported as: 28.2 Seconds Basophil percentageon 2021 Basophils/100 WBC (Bld) 0.9 % 0-1 [facility] Work Phone: Chloride [Moles/Vol] 103 mmol/L 98-107 [facility] Work Phone: Eosinophils/100 WBC (Bld) 3.1 % 0-5 [facility] Work Phone: [phone] Glucose [Mass/Vol] 153 mg/dL 74-106 [facility] Work Phone: Comment on above: Fasting Glucose resu lt greater than or equal to 126 mg/dL suggests DIABETES MELLITUS per A.D.A. criteria.Please note revised GLUCOSE reference range effective 2017. Neutrophils (Bld) [#/Vol] 5.2 10*3/uL 2.0-7.7 [facility] Work Phone: [phone] Neutrophils/100 WBC (Bld) 74.5 % 47-70 [facility] Work Phone: Potassium [Moles/Vol] 3.8 mmol/L 3.5-5.1 [facility] Work Phone: [phone] Sodium [Moles/Vol] 137 mmol/L 136-145 [facility] Work Phone: [phone] WBC (Bld) [#/Vol] 7.0 10*3/uL 4.4-11.0 [facility] Work Phone: Blood erythrocytes count (nu mber/volume)on 10-31-2021 RBC (Bld) [#/Vol] 4.32 10*6/uL 4.6-6.2 [facility] Work Phone: [phone] Blood hemoglobin measurement (mass/volume)on 10-31-2021 Hemoglobin (Bld) [Mass/Vol] 12.7 g/dL 13.0-16.5 [facility] Work Phone: Blood lymphocytes/100 leukoc yteson 10-31-2021 Lymphocytes/100 WBC (Bld) 14.8 % 19-41 [facility] Work Phone: Blood monocytes/100 leukocyt eson 10-31-2021 Monocytes/100 WBC (Bld) 6.1 % 0-10 [facility] Work Phone: Blood platelet mean volumeon 10-31-2021 Platelet mean volume (Bld) [Entitic vol] 9.4 fL 6.2-12.0 [facility] Work Phone: Determination of erythrocyte mean corpuscular volume (MCV)on 10-31-2021 MCV (RBC) [Entitic vol] 84.5 fL 80-94 [facility] Work Phone: Hematocrit Auto (Bld) [Volum e fraction]on 10-31-2021 Hematocrit (Bld) [Volume fraction] 36.5 % 40-54 [facility] Work Phone: INR in Blood by Coagulation assayon 10-31-2021 INR Coag (Bld) [Relative time] 1.1 {INR} [facility] Work Phone: Comment on above: Previous reported re sult: 1.1 Edited by: HANNY on 10/31/21:1314 AMENDED REPORT 10/31/21 1314 INR previously reported as: 1.1 Laboratory - Chemistry and C hemistry - challengeon 10-31-2021 CO2 [Moles/Vol] 25.0 mmol/L 21.0-32.0 [facility] Work Phone: Urea nitrogen/Creatinine [Mass ratio] 23.3 mg/mg 10-20 [facility] Work Phone: Laboratory - Coagulationon 0 10-31-2021 PT Coag (PPP) [Time] 13.9 s 11.7-14.9 [facility] Work Phone: Comment on above: Previous reported re sult: 13.3 SECONDSEdited by: HANNY on 10/31/21:1314 AMENDED REPORT 10/31/21 1314 PROTIME previously reported as: 13.3 SECONDS Laboratory - Hematology and Cell countson 10-31-2021 Erythrocyte distribution width (RBC) [Entitic vol] 39.5 fL 35.1-43.9 [facility] Work Phone: Erythrocyte distribution width (RBC) [Ratio] 13.1 % 11.6-14.6 [facility] Work Phone: Immature granulocytes/100 WBC (Bld) 0.600 % 0.0-0.9 [facility] Work Phone: Comment on above: IG% - Immature Granu locytes (promyelocytes, myelocytes and metamyelocytes) > 1% indicates that a LEFT SHIFT is Present. MCH (RBC) [Entitic mass] 29.4 pg 27.0-32.0 [facility] Work Phone: Nucleated RBC/100 WBC (Bld) [Ratio] 0 % 0-5 [facility] Work Phone: MCHC Auto (RBC) [Mass/Vol]on 10-31-2021 MCHC (RBC) [Mass/Vol] 34.8 g/dL 32-36 [facility] Work Phone: No Panel Informationon 10-31 Estimated GFR (MDRD) Amer 117 mL/min >60 [facility] Work Phone: Comment on above: GFR Calc Estimated GFR (MDRD) Non-Af Amer 97 mL/min >60 [facility] Work Phone: Comment on above: Non- GFR Calc Platelets bldon 10-31-2021 Platelets (Bld) [#/Vol] 238 10*3/uL 150-450 [facility] Work Phone: Serum or plasma calcium michelle urement (mass/volume)on 10-31-2021 Calcium [Mass/Vol] 9.3 mg/dL 8.5-10.1 [facility] Work Phone: Serum or plasma creatinine m easurement (mass/volume)on 10-31-2021 Creatinine [Mass/Vol] 0.86 mg/dL 0.70-1.30 [facility] Work Phone: Comment on above: The validity of the calculated GFR & GFRAA in patients over 70 years has not been determined. Clinical correlation is essential. Serum or plasma urea nitroge n measurement (mass/volume)on 10-31-2021 Urea nitrogen [Mass/Vol] 20 mg/dL 7-18 [facility] Work Phone: Thin prep Papanicolaou smear with manual screeningon 10-31-2021 Thin prep Papanicolaou smear with manual screening 9 5-15 [facility] Work Phone: [id number] By: SYSTEM SYSTEM on 09-21-2021 Cobalamin (Vitamin B12) [Mass/Vol] 542 pg/mL Normal 211-911 [facility] Comment on above: Performed By: #### C BC, ADIFF, ANEU, PBNP #### [place] [address] #### LIPID, CMP, GFR #### [place] [address] FERROrdered By: SYSTEM SYSTE M on 09-21-2021 Ferritin [Mass/Vol] 53.7 ng/mL Normal 26.0-388.0 AD [facility] Comment on above: Performed By: #### C BC, ADIFF, ANEU, PBNP #### [place] [address] #### LIPID, CMP, GFR #### [place] [address] TRFOrdered By: SYSTEM SYSTEM on 09-21-2021 Transferrin [Mass/Vol] 299 mg/dL Normal 202-336 ADM Comment on above: Performed By: #### C BC, ADIFF, ANEU, PBNP #### [place] [address] #### LIPID, CMP, GFR #### [place] [address] .Auto DiffOrdered By: Glory Marinelli on 09-20-2021 Basophil, Absolute 0.00 103/mcL Normal 0.00-0.19 AO A uto Heme SS Comment on above: Performed By: #### C BC, ADIFF, ANEU, PBNP #### [place] [address] #### LIPID, CMP, GFR #### [address] [address] Basophils/100 WBC (Bld) 0.6 % Normal 0.0-2.5 AO Auto Heme SS Comment on above: Performed By: #### C BC, ADIFF, ANEU, PBNP #### [place] [address] #### LIPID, CMP, GFR #### [address] [address] Eosinophil, Absolute 0.40 103/mcL Normal 0.00-0.40 AO Auto Heme SS Comment on above: Performed By: #### C BC, ADIFF, ANEU, PBNP #### [place] [address] #### LIPID, CMP, GFR #### [address] [address] Eosinophils/100 WBC (Bld) 5.5 % Normal 0.0-7.0 AO Auto Heme SS Comment on above: Performed By: #### C BC, ADIFF, ANEU, PBNP #### [place] [address] #### LIPID, CMP, GFR #### [address] [address] Lymphocyte, Absolute 1.00 103/mcL Normal 0.77-3.85 AO Auto Heme SS Comment on above: Performed By: #### C BC, ADIFF, ANEU, PBNP #### [place] [address] #### LIPID, CMP, GFR #### [address] [address] Lymphocytes/100 WBC (Bld) 15.6 % Normal 10.0-50.0 AO Auto Heme SS Comment on above: Performed By: #### C BC, ADIFF, ANEU, PBNP #### [address] [address] #### LIPID, CMP, GFR #### [address] [address] Monocyte, Absolute 0.60 103/mcL Normal 0.15-1.00 AO A uto Heme SS Comment on above: Performed By: #### C BC, ADIFF, ANEU, PBNP #### [place] [address] #### LIPID, CMP, GFR #### [address] [address] Monocytes/100 WBC (Bld) 8.6 % Normal 1.7-13.0 AO Auto Heme SS Comment on above: Performed By: #### C BC, ADIFF, ANEU, PBNP #### [place] [address] #### LIPID, CMP, GFR #### [address] [address] Neutrophils/100 WBC (Bld) 69.7 % Normal 37.0-80.0 AO Auto Heme SS Comment on above: Performed By: #### C BC, ADIFF, ANEU, PBNP #### [place] [address] #### LIPID, CMP, GFR #### [address] [address] .GFROrdered By: CHANDAN Wilkins on 09-20-2021 GFR [...] #### C BC, ADIFF, ANEU, PBNP #### [place] [id number] #### LIPID, CMP, GFR #### [address] [address] GFR Non- 82 ml/min/1.73sqm Normal AO Chemistry [...] #### C BC, ADIFF, ANEU, PBNP #### [place] [address] #### LIPID, CMP, GFR #### [address] [address] .NEUABSOrdered By: Glory ann on 09-20-2021 Neutrophil, Absolute 4.50 103/mcL Normal 2.85-6.16 AO Auto Heme SS Comment on above: Performed By: #### C BC, ADIFF, ANEU, PBNP #### [place] [id number] #### LIPID, CMP, GFR #### [address] [address] [id number] By: Neisha viramontes on 09-20-2021 HbA1c (Bld) [Mass fraction] 7.0 % High 4.3-6.4 AO ADM SS Comment on above: Performed By: #### C BC, ADIFF, ANEU, PBNP #### [place] [address] #### LIPID, CMP, GFR #### [place] [address] CBCOrdered By: Glory Marinelli on 09-20-2021 Erythrocyte distribution width (RBC) [Ratio] 15.6 % High 11.5-14.5 AO Auto Heme SS Comment on above: Performed By: #### C BC, ADIFF, ANEU, PBNP #### [place] [address] #### LIPID, CMP, GFR #### [place] [address] Hematocrit (Bld) [Volume fraction] 33.2 % Low 42.0-52.0 AO Auto Heme SS Comment on above: Performed By: #### C BC, ADIFF, ANEU, PBNP #### [place] [address] #### LIPID, CMP, GFR #### [place] [address] MCH (RBC) [Entitic mass] 30.2 pg Normal 27.0-31.2 AO Auto Heme SS Comment on above: Performed By: #### C BC, ADIFF, ANEU, PBNP #### [place] [address] #### LIPID, CMP, GFR #### [place] [address] MCV (RBC) [Entitic vol] 84.8 fL Normal 80.0-94.0 AO Auto Heme SS Comment on above: Performed By: #### C BC, ADIFF, ANEU, PBNP #### [place] [address] #### LIPID, CMP, GFR #### [place] [address] Platelet mean volume (Bld) [Entitic vol] 7.5 fL Normal 7.4-10.4 AO Auto Heme SS Comment on above: Performed By: #### C BC, ADIFF, ANEU, PBNP #### [place] [address] #### LIPID, CMP, GFR #### [place] [address] CBCon 09-20-2021 Hgb 11.8 G/dL Low 14.0-18.0 [facility] ([place]) Comment on above: Performed By: #### C BC, ADIFF, ANEU, PBNP #### [place] [address] #### LIPID, CMP, GFR #### [place] [address] MCHC 35.6 G/dL High 31.8-35.4 [facility] ([place]) Comment on above: Performed By: #### C BC, ADIFF, ANEU, PBNP #### [place] [address] #### LIPID, CMP, GFR #### [place] [address] Platelet 222 10 3/mcL Normal 130-400 [facility] ([place]) Comment on above: Performed By: #### C BC, ADIFF, ANEU, PBNP #### [place] [address] #### LIPID, CMP, GFR #### [place] [address] RBC 3.92 10 6/mcL Low 4.04-6.13 [facility] ([place]) Comment on above: Performed By: #### C BC, ADIFF, ANEU, PBNP #### [place] [address] #### LIPID, CMP, GFR #### [place] [address] WBC 6.40 10 3/mcL Normal 4.60-10.80 [facility] ([place]) Comment on above: Performed By: #### C BC, ADIFF, ANEU, PBNP #### [place] [address] #### LIPID, CMP, GFR #### [address] [address] CMPon 09-20-2021 Albumin Level 4.2 G/dL Normal 3.5-5.0 [facility] ([place]) Comment on above: Performed By: #### C BC, ADIFF, ANEU, PBNP #### [address] [address] #### LIPID, CMP, GFR #### [address] [address] ALT [Catalytic activity/Vol] 38 U/L Normal 16-63 [facility] ([place]) Comment on above: Performed By: #### C BC, ADIFF, ANEU, PBNP #### [place] [address] #### LIPID, CMP, GFR #### [address] [address] AST [Catalytic activity/Vol] 19 U/L Normal 10-40 [facility] ([place]) Comment on above: Performed By: #### C BC, ADIFF, ANEU, PBNP #### [place] [address] #### LIPID, CMP, GFR #### [address] [address] Bili Total 0.7 mg/dL Normal 0.2-1.0 [facility] ([place]) Comment on above: Result Comment: Use of this assay is not recommended for patients undergoing treatment with eltrombopag due to the potential for falsely elevated results. Performed By: #### C BC, ADIFF, ANEU, PBNP #### [address] [address] #### LIPID, CMP, GFR #### [address] [address] BUN/Creatinine Ratio 16 ratio Normal 7-27 [facility] ([place]) Comment on above: Performed By: #### C BC, ADIFF, ANEU, PBNP #### [place] [address] #### LIPID, CMP, GFR #### [address] [address] Total Protein 7.1 G/dL Normal 6.4-8.2 [facility] ([place]) Comment on above: Performed By: #### C BC, ADIFF, ANEU, PBNP #### [address] [address] #### LIPID, CMP, GFR #### [address] [address] CMPOrdered By: Neisha viramontes on 09-20-2021 Albumin/Globulin [Mass ratio] 1.4 {ratio} Normal 1.1-2.5 AO ADM SS Comment on above: Performed By: #### C BC, ADIFF, ANEU, PBNP #### [place] [id number] #### LIPID, CMP, GFR #### [address] [address] ALP [Catalytic activity/Vol] 115 U/L Normal 40-135 AO ADM SS Comment on above: Performed By: #### C BC, ADIFF, ANEU, PBNP #### [place] [address] #### LIPID, CMP, GFR #### [address] [address] Calcium [Mass/Vol] 9.1 mg/dL Normal 8.4-10.2 AO ADM SS Comment on above: Performed By: #### C BC, ADIFF, ANEU, PBNP #### [place] [address] #### LIPID, CMP, GFR #### [address] [address] Chloride [Moles/Vol] 102 mmol/L Normal 98-107 AO A DM SS Comment on above: Performed By: #### C BC, ADIFF, ANEU, PBNP #### [address] [address] #### LIPID, CMP, GFR #### [address] [address] CO2 [Moles/Vol] 28 mmol/L Normal 22-29 AO ADM SS Comment on above: Performed By: #### C BC, ADIFF, ANEU, PBNP #### [place] [address] #### LIPID, CMP, GFR #### [place] [address] Creatinine [Mass/Vol] 0.94 mg/dL Normal 0.70-1.30 AO ADM SS Comment on above: Performed By: #### C BC, ADIFF, ANEU, PBNP #### [place] [address] #### LIPID, CMP, GFR #### [place] [address] Electrolyte Balance 10.0 mEq/L Normal AO AD M SS Comment on above: Performed By: #### C BC, ADIFF, ANEU, PBNP #### [place] [address] #### LIPID, CMP, GFR #### [place] [address] Globulin 2.9 G/dL Normal AO ADM SS Comment on above: Performed By: #### C BC, ADIFF, ANEU, PBNP #### [place] [address] #### LIPID, CMP, GFR #### [place] [address] Glucose [Mass/Vol] 156 mg/dL High 70-105 AO ADM SS Comment on above: Performed By: #### C BC, ADIFF, ANEU, PBNP #### [place] [address] #### LIPID, CMP, GFR #### [place] [address] Potassium [Moles/Vol] 4.6 mmol/L Normal 3.5-5.1 AO ADM SS Comment on above: Performed By: #### C BC, ADIFF, ANEU, PBNP #### [place] [address] #### LIPID, CMP, GFR #### [address] [address] Sodium [Moles/Vol] 140 mmol/L Normal 136-145 AO ADM SS Comment on above: Performed By: #### C BC, ADIFF, ANEU, PBNP #### [address] [address] #### LIPID, CMP, GFR #### [place] [address] Urea nitrogen [Mass/Vol] 15 mg/dL Normal 7-18 AO ADM SS Comment on above: Performed By: #### C BC, ADIFF, ANEU, PBNP #### [address] [address] #### LIPID, CMP, GFR #### [place] [address] FEOrdered By: Neisha zhu on 09-20-2021 Iron [Mass/Vol] 59 ug/dL Low 65-175 AO ADM SS Comment on above: Performed By: #### C BC, ADIFF, ANEU, PBNP #### [address] [address] #### LIPID, CMP, GFR #### [place] [address] IBCon 09-20-2021 TIBC 363 mcg/dL Normal 250-450 [facility] ([place]) Comment on above: Performed By: #### C BC, ADIFF, ANEU, PBNP #### [place] [address] #### LIPID, CMP, GFR #### [place] [address] LABORATORYOrdered By: Jarred Metcalf on 09-20-2021 Albumin [...] #### C BC, ROZ, ANEU, PBNP #### [address] [address] #### LIPID, CMP, GFR #### [address] [address] .Auto Diffon 08-16-2021 Basophil, Absolute 0.10 10 3/mcL Normal 0.00-0.19 [facility] ([place]) Comment on above: Performed By: #### C BC, ROZ, ANEU, PBNP #### [place] [address] #### LIPID, CMP, GFR #### [address] [address] Basophils/100 WBC (Bld) 1.0 % Normal 0.0-2.5 [facility] ([place]) Comment on above: Performed By: #### C BC, ADIFF, ANEU, PBNP #### [place] [address] #### LIPID, CMP, GFR #### [address] [address] Eosinophil, Absolute 0.60 10 3/mcL High 0.00-0.40 [facility] ([place]) Comment on above: Performed By: #### C BC, ADIFF, ANEU, PBNP #### [place] [address] #### LIPID, CMP, GFR #### [address] [address] Eosinophils/100 WBC (Bld) 8.4 % High 0.0-7.0 [facility] ([place]) Comment on above: Performed By: #### C BC, ADIFF, ANEU, PBNP #### [place] [address] #### LIPID, CMP, GFR #### [address] [address] Lymphocyte, Absolute 1.40 10 3/mcL Normal 0.77-3.85 [facility] ([place]) Comment on above: Performed By: #### C BC, ADIFF, ANEU, PBNP #### [place] [address] #### LIPID, CMP, GFR #### [address] [address] Lymphocytes/100 WBC (Bld) 19.9 % Normal 10.0-50.0 [facility] ([place]) Comment on above: Performed By: #### C BC, ADIFF, ANEU, PBNP #### [place] [address] #### LIPID, CMP, GFR #### [address] [address] Monocyte, Absolute 0.70 10 3/mcL Normal 0.15-1.00 [facility] ([place]) Comment on above: Performed By: #### C BC, ADIFF, ANEU, PBNP #### [address] [address] #### LIPID, CMP, GFR #### [address] [address] Monocytes/100 WBC (Bld) 9.7 % Normal 1.7-13.0 [facility] ([place]) Comment on above: Performed By: #### C BC, ADIFF, ANEU, PBNP #### [address] [address] #### LIPID, CMP, GFR #### [address] [address] Neutrophils/100 WBC (Bld) 61.0 % Normal 37.0-80.0 [facility] ([place]) Comment on above: Performed By: #### C BC, ADIFF, ANEU, PBNP #### [address] [address] #### LIPID, CMP, GFR #### [address] [address] .GFRon 08-16-2021 GFR 94 ml/min/1.73sqm Normal [facility] ([place]) Comment on above: Result Comment: GFR Population [...] #### C BC, ADIFF, ANEU, PBNP #### [address] [address] #### LIPID, CMP, GFR #### [address] [address] GFR Non- 77 ml/min/1.73sqm Normal [facility] ([place]) Comment on above: Result Comment: GFR Population [...] #### C BC, ADIFF, ANEU, PBNP #### [address] [address] #### LIPID, CMP, GFR #### [address] [address] .NEUABSon 08-16-2021 Neutrophil, Absolute 4.20 10 3/mcL Normal 2.85-6.16 [facility] ([place]) Comment on above: Performed By: #### C BC, ADIFF, ANEU, PBNP #### [address] [address] #### LIPID, CMP, GFR #### [address] [address] BMPon 08-16-2021 BUN/Creatinine Ratio 19 ratio Normal 7-27 [facility] ([place]) Comment on above: Performed By: #### C BC, ADIFF, ANEU, PBNP #### [address] [address] #### LIPID, CMP, GFR #### [address] [address] Calcium [Mass/Vol] 9.1 mg/dL Normal 8.4-10.2 [facility] ([place]) Comment on above: Performed By: #### C BC, ADIFF, ANEU, PBNP #### [address] [address] #### LIPID, CMP, GFR #### [address] [address] Chloride [Moles/Vol] 106 mmol/L Normal 98-107 [facility] ([place]) Comment on above: Performed By: #### C BC, ADIFF, ANEU, PBNP #### [address] [address] #### LIPID, CMP, GFR #### [address] [address] CO2 [Moles/Vol] 27 mmol/L Normal 22-29 [facility] ([place]) Comment on above: Performed By: #### C BC, ADIFF, ANEU, PBNP #### [address] [address] #### LIPID, CMP, GFR #### [address] [address] Creatinine [Mass/Vol] 0.99 mg/dL Normal 0.70-1.30 [facility] ([place]) Comment on above: Performed By: #### C BC, ADIFF, ANEU, PBNP #### [address] [address] #### LIPID, CMP, GFR #### [address] [address] Electrolyte Balance 7.0 mEq/L Normal [facility] ([place]) Comment on above: Performed By: #### C BC, ADIFF, ANEU, PBNP #### [address] [address] #### LIPID, CMP, GFR #### [address] [address] Glucose [Mass/Vol] 133 mg/dL High 70-105 [facility] ([place]) Comment on above: Performed By: #### C BC, ADIFF, ANEU, PBNP #### [address] [address] #### LIPID, CMP, GFR #### [address] [address] Potassium [Moles/Vol] 4.9 mmol/L Normal 3.5-5.1 [facility] ([place]) Comment on above: Performed By: #### C BC, ADIFF, ANEU, PBNP #### [address] [address] #### LIPID, CMP, GFR #### [address] [address] Sodium [Moles/Vol] 140 mmol/L Normal 136-145 [facility] ([place]) Comment on above: Performed By: #### C BC, ADIFF, ANEU, PBNP #### [place] [address] #### LIPID, CMP, GFR #### [address] [address] Urea nitrogen [Mass/Vol] 19 mg/dL High 7-18 [facility] ([place]) Comment on above: Performed By: #### C BC, ADIFF, ANEU, PBNP #### [address] [address] #### LIPID, CMP, GFR #### [address] [address] CBCon 08-16-2021 Erythrocyte distribution width (RBC) [Ratio] 15.0 % High 11.5-14.5 [facility] ([place]) Comment on above: Performed By: #### C BC, ADIFF, ANEU, PBNP #### [place] [address] #### LIPID, CMP, GFR #### [address] [address] Hematocrit (Bld) [Volume fraction] 34.8 % Low 42.0-52.0 [facility] ([place]) Comment on above: Performed By: #### C BC, ADIFF, ANEU, PBNP #### [place] [address] #### LIPID, CMP, GFR #### [place] [address] Hgb 12.4 G/dL Low 14.0-18.0 [facility] ([place]) Comment on above: Performed By: #### C BC, ADIFF, ANEU, PBNP #### [place] [address] #### LIPID, CMP, GFR #### [place] [address] MCH (RBC) [Entitic mass] 30.7 pg Normal 27.0-31.2 [facility] ([place]) Comment on above: Performed By: #### C BC, ADIFF, ANEU, PBNP #### [place] [address] #### LIPID, CMP, GFR #### [place] [id number] MCHC 35.5 G/dL High 31.8-35.4 [facility] ([place]) Comment on above: Performed By: #### C BC, ADIFF, ANEU, PBNP #### [place] [id number] #### LIPID, CMP, GFR #### [place] [id number] MCV (RBC) [Entitic vol] 86.4 fL Normal 80.0-94.0 [facility] ([place]) Comment on above: Performed By: #### C BC, ADIFF, ANEU, PBNP #### [place] [id number] #### LIPID, CMP, GFR #### [place] [id number] Platelet 246 10 3/mcL Normal 130-400 [facility] ([place]) Comment on above: Performed By: #### C BC, ADIFF, ANEU, PBNP #### [place] [id number] #### LIPID, CMP, GFR #### [place] [id number] Platelet mean volume (Bld) [Entitic vol] 7.6 fL Normal 7.4-10.4 [facility] ([place]) Comment on above: Performed By: #### C BC, ADIFF, ANEU, PBNP #### [place] [address] #### LIPID, CMP, GFR #### [place] [address] RBC 4.03 10 6/mcL Low 4.04-6.13 [facility] ([place]) Comment on above: Performed By: #### C BC, ADIFF, ANEU, PBNP #### [place] [address] #### LIPID, CMP, GFR #### [place] [address] WBC 6.90 10 3/mcL Normal 4.60-10.80 [facility] ([place]) Comment on above: Performed By: #### C BC, ADIFF, ANEU, PBNP #### [place] [address] #### LIPID, CMP, GFR #### [place] [address] LABORATORYOrdered By: Jarred Metcalf on 08-16-2021 Basophil, [...] B (Bld) [Mass/Vol] 62 pg/mL Normal 0-125 [facility] ([place]) Comment on above: Result Comment: NT-p roBNP results of less than 300 pg/mL effectively rules out acute congestive heart failure with 99% negative predictive value. Performed By: #### C BC, ADIFF, ANEU, PBNP #### [place] [address] [place], [place] [address] #### LIPID, CMP, GFR #### [address] [address] .Auto Diffon 07-06-2021 Basophil, Absolute 0.10 10 3/mcL Normal 0.00-0.27 [facility] ([place]) Comment on above: Performed By: #### C BC, ADIFF, ANEU, BMP, GFR #### [address] [address] Basophils/100 WBC (Bld) 0.9 % Normal 0.0-2.5 [facility] ([place]) Comment on above: Performed By: #### C BC, ADIFF, ANEU, BMP, GFR #### [address] [address] Eosinophil, Absolute 0.30 10 3/mcL Normal 0.00-0.65 [facility] ([place]) Comment on above: Performed By: #### C BC, ADIFF, ANEU, BMP, GFR #### [address] [address] Eosinophils/100 WBC (Bld) 5.0 % Normal 0.0-6.0 [facility] ([place]) Comment on above: Performed By: #### C BC, ADIFF, ANEU, BMP, GFR #### [address] [address] Lymphocyte, Absolute 1.20 10 3/mcL Normal 0.90-4.32 [facility] ([place]) Comment on above: Performed By: #### C BC, ADIFF, ANEU, BMP, GFR #### [address] [address] Lymphocytes/100 WBC (Bld) 16.9 % Low 20.0-40.0 [facility] ([place]) Comment on above: Performed By: #### C BC, ADIFF, ANEU, BMP, GFR #### [address] [address] Monocyte, Absolute 0.60 10 3/mcL Normal 0.09-1.40 [facility] ([place]) Comment on above: Performed By: #### C BC, ADIFF, ANEU, BMP, GFR #### [address] [address] Monocytes/100 WBC (Bld) 8.4 % Normal 2.0-13.0 [facility] ([place]) Comment on above: Performed By: #### C BC, ADIFF, ANEU, BMP, GFR #### [address] [address] Neutrophils/100 WBC (Bld) 68.8 % Normal 50.0-75.0 [facility] ([place]) Comment on above: Performed By: #### C BC, ADIFF, ANEU, BMP, GFR #### [address] [address] .GFRon 07-06-2021 GFR Non- >60 Normal [facility] ([place]) Comment on above: Result Comment: GFR Population [...] #### C BC, ADIFF, ANEU, PBNP #### [address] [address] #### LIPID, CMP, GFR #### [address] [address] GFR >60 Normal [facility] ([place]) Comment on above: Result Comment: GFR Population [...] #### C BC, ADIFF, ANEU, PBNP #### [address] [address] #### LIPID, CMP, GFR #### [address] [address] .NEUABSon 07-06-2021 Neutrophil, Absolute 4.70 10 3/mcL Normal 2.25-8.10 [facility] ([place]) Comment on above: Performed By: #### C BC, ADIFF, ANEU, PBNP #### [address] [address] #### LIPID, CMP, GFR #### [address] [address] BMPon 07-06-2021 BUN/Creatinine Ratio 13.5 ratio Normal 10.0-22.0 [facility] ([place]) Comment on above: Performed By: #### C BC, ADIFF, ANEU, PBNP #### [place] [address] #### LIPID, CMP, GFR #### [address] [address] Calcium [Mass/Vol] 9.6 mg/dL Normal 8.7-10.4 [facility] ([place]) Comment on above: Result Comment: No te - New Reference Range in effect 20 Performed By: #### C BC, ADIFF, ANEU, PBNP #### [place] [address] #### LIPID, CMP, GFR #### [address] [address] Chloride [Moles/Vol] 105 mmol/L Normal 98-110 [facility] ([place]) Comment on above: Performed By: #### C BC, ADIFF, ANEU, PBNP #### [address] [address] #### LIPID, CMP, GFR #### [address] [address] CO2 [Moles/Vol] 25 mmol/L Normal 22-32 [facility] ([place]) Comment on above: Performed By: #### C BC, ADIFF, ANEU, PBNP #### [place] [address] #### LIPID, CMP, GFR #### [address] [address] Creatinine [Mass/Vol] 0.96 mg/dL Normal 0.60-1.40 [facility] ([place]) Comment on above: Performed By: #### C BC, ADIFF, ANEU, PBNP #### [address] [address] #### LIPID, CMP, GFR #### [address] [address] Electrolyte Balance 8.0 mEq/L Normal 4.0-15.0 [facility] ([place]) Comment on above: Performed By: #### C BC, ADIFF, ANEU, PBNP #### [place] [address] #### LIPID, CMP, GFR #### [address] [address] Glucose [Mass/Vol] 124 mg/dL High 70-110 [facility] ([place]) Comment on above: Performed By: #### C BC, ADIFF, ANEU, PBNP #### [place] [address] #### LIPID, CMP, GFR #### [address] [address] Potassium [Moles/Vol] 4.2 mmol/L Normal 3.5-5.0 [facility] ([place]) Comment on above: Result Comment: Spec imen slightly hemolyzed. Performed By: #### C BC, ADIFF, ANEU, PBNP #### [place] [address] #### LIPID, CMP, GFR #### [address] [address] Sodium [Moles/Vol] 138 mmol/L Normal 136-145 [facility] ([place]) Comment on above: Performed By: #### C BC, ADIFF, ANEU, PBNP #### [address] [address] #### LIPID, CMP, GFR #### [address] [address] Urea nitrogen [Mass/Vol] 13.0 mg/dL Normal 8.0-22.0 [facility] ([place]) Comment on above: Performed By: #### C BC, ADIFF, ANEU, PBNP #### [address] [address] #### LIPID, CMP, GFR #### [place] [address] CBCon 07-06-2021 Erythrocyte distribution width (RBC) [Ratio] 15.2 % Normal 11.5-15.5 [facility] ([place]) Comment on above: Performed By: #### C BC, ADIFF, ANEU, BMP, GFR #### [place] [address] Hematocrit (Bld) [Volume fraction] 34.5 % Low 40.0-52.0 [facility] ([place]) Comment on above: Performed By: #### C BC, ADIFF, ANEU, BMP, GFR #### [place] [address] Hgb 12.2 G/dL Low 13.0-17.5 [facility] ([place]) Comment on above: Performed By: #### C BC, ADIFF, ANEU, BMP, GFR #### [place] [address] MCH (RBC) [Entitic mass] 29.9 pg Normal 27.0-33.0 [facility] ([place]) Comment on above: Performed By: #### C BC, ADIFF, ANEU, BMP, GFR #### [place] [address] MCHC 35.5 G/dL Normal 32.0-36.0 [facility] ([place]) Comment on above: Performed By: #### C BC, ADIFF, ANEU, BMP, GFR #### [place] [address] MCV (RBC) [Entitic vol] 84.4 fL Normal 81.0-100.0 [facility] ([place]) Comment on above: Performed By: #### C BC, ADIFF, ANEU, BMP, GFR #### [address] [address] Platelet 216 10 3/mcL Normal 150-450 [facility] ([place]) Comment on above: Performed By: #### C BC, ADIFF, ANEU, BMP, GFR #### [address] [address] Platelet mean volume (Bld) [Entitic vol] 7.5 fL Normal 6.4-10.5 [facility] ([place]) Comment on above: Performed By: #### C BC, ADIFF, ANEU, BMP, GFR #### [place] [address] RBC 4.08 10 6/mcL Low 4.50-6.00 [facility] ([place]) Comment on above: Performed By: #### C BC, ADIFF, ANEU, BMP, GFR #### [place] [address] WBC 6.90 10 3/mcL Normal 4.50-10.80 [facility] ([place]) Comment on above: Performed By: #### C BC, ADIFF, ANEU, BMP, GFR #### [address] [address] .Auto Diffon 03-11-2021 Basophil, Absolute 0.10 10 3/mcL Normal 0.00-0.19 [facility] ([place]) Comment on above: Performed By: #### C BC, ADIFF, ANEU, PBNP #### [place] [address] #### LIPID, CMP, GFR #### [address] [address] Basophils/100 WBC (Bld) 1.1 % Normal 0.0-2.5 [facility] ([place]) Comment on above: Performed By: #### C BC, ADIFF, ANEU, PBNP #### [address] [address] #### LIPID, CMP, GFR #### [place] [address] Eosinophil, Absolute 0.50 10 3/mcL High 0.00-0.40 [facility] ([place]) Comment on above: Performed By: #### C BC, ADIFF, ANEU, PBNP #### [place] [address] #### LIPID, CMP, GFR #### [address] [address] Eosinophils/100 WBC (Bld) 6.4 % Normal 0.0-7.0 [facility] ([place]) Comment on above: Performed By: #### C BC, ADIFF, ANEU, PBNP #### [place] [address] #### LIPID, CMP, GFR #### [address] [address] Lymphocyte, Absolute 1.40 10 3/mcL Normal 0.77-3.85 [facility] ([place]) Comment on above: Performed By: #### C BC, ADIFF, ANEU, PBNP #### [place] [address] #### LIPID, CMP, GFR #### [address] [address] Lymphocytes/100 WBC (Bld) 18.2 % Normal 10.0-50.0 [facility] ([place]) Comment on above: Performed By: #### C BC, ADIFF, ANEU, PBNP #### [place] [address] #### LIPID, CMP, GFR #### [address] [address] Monocyte, Absolute 0.50 10 3/mcL Normal 0.15-1.00 [facility] ([place]) Comment on above: Performed By: #### C BC, ADIFF, ANEU, PBNP #### [place] [address] #### LIPID, CMP, GFR #### [address] [address] Monocytes/100 WBC (Bld) 6.3 % Normal 1.7-13.0 [facility] ([place]) Comment on above: Performed By: #### C BC, ADIFF, ANEU, PBNP #### [address] [address] #### LIPID, CMP, GFR #### [address] [address] Neutrophils/100 WBC (Bld) 68.0 % Normal 37.0-80.0 [facility] ([place]) Comment on above: Performed By: #### C BC, ADIFF, ANEU, PBNP #### [address] [address] #### LIPID, CMP, GFR #### [address] [address] .GFRon 03-11-2021 GFR 89 ml/min/1.73sqm Normal [facility] ([place]) Comment on above: Result Comment: GFR Population [...] #### C BC, ADIFF, ANEU, PBNP #### [address] [address] #### LIPID, CMP, GFR #### [address] [address] GFR Non- 73 ml/min/1.73sqm Normal [facility] ([place]) Comment on above: Result Comment: GFR Population [...] #### C BC, ADIFF, ANEU, PBNP #### [place] [address] #### LIPID, CMP, GFR #### [place] [id number] .NEUABSon 03-11-2021 Neutrophil, Absolute 5.40 10 3/mcL Normal 2.85-6.16 [facility] ([place]) Comment on above: Performed By: #### C BC, ADIFF, ANEU, PBNP #### [place] [address] #### LIPID, CMP, GFR #### [place] [address] CBCon 03-11-2021 Erythrocyte distribution width (RBC) [Ratio] 15.5 % High 11.5-14.5 [facility] ([place]) Comment on above: Order Comment: copy Dr Turner Performed By: #### C BC, ADIFF, ANEU, PBNP #### [place] [address] #### LIPID, CMP, GFR #### [place] [address] Hematocrit (Bld) [Volume fraction] 36.1 % Low 42.0-52.0 [facility] ([place]) Comment on above: Order Comment: copy Dr Turner Performed By: #### C BC, ADIFF, ANEU, PBNP #### [place] [address] #### LIPID, CMP, GFR #### [place] [address] Hgb 12.8 G/dL Low 14.0-18.0 [facility] ([place]) Comment on above: Order Comment: copy Dr Turner Performed By: #### C BC, ADIFF, ANEU, PBNP #### [address] [address] #### LIPID, CMP, GFR #### [address] [address] MCH (RBC) [Entitic mass] 30.3 pg Normal 27.0-31.2 [facility] ([place]) Comment on above: Order Comment: copy Dr Turner Performed By: #### C BC, ADIFF, ANEU, PBNP #### [place] [address] #### LIPID, CMP, GFR #### [address] [address] MCHC 35.4 G/dL Normal 31.8-35.4 [facility] ([place]) Comment on above: Order Comment: copy Dr Turner Performed By: #### C BC, ADIFF, ANEU, PBNP #### [place] [address] #### LIPID, CMP, GFR #### [address] [address] MCV (RBC) [Entitic vol] 85.7 fL Normal 80.0-94.0 [facility] ([place]) Comment on above: Order Comment: copy Dr Turner Performed By: #### C BC, ADIFF, ANEU, PBNP #### [place] [address] #### LIPID, CMP, GFR #### [address] [address] Platelet 271 10 3/mcL Normal 130-400 [facility] ([place]) Comment on above: Order Comment: copy Dr Turner Performed By: #### C BC, ADIFF, ANEU, PBNP #### [place] [address] #### LIPID, CMP, GFR #### [place] [id number] Platelet mean volume (Bld) [Entitic vol] 7.7 fL Normal 7.4-10.4 [facility] ([place]) Comment on above: Order Comment: copy Dr Turner Performed By: #### C BC, ADIFF, ANEU, PBNP #### [address] [address] #### LIPID, CMP, GFR #### [address] [address] RBC 4.21 10 6/mcL Normal 4.04-6.13 [facility] ([place]) Comment on above: Order Comment: copy Dr Turner Performed By: #### C BC, ADIFF, ANEU, PBNP #### [address] [address] #### LIPID, CMP, GFR #### [place] [address] WBC 7.90 10 3/mcL Normal 4.60-10.80 [facility] ([place]) Comment on above: Order Comment: copy Dr Turner Performed By: #### C BC, ADIFF, ANEU, PBNP #### [place] [address] #### LIPID, CMP, GFR #### [address] [address] CMPon 03-11-2021 Albumin Level 4.2 G/dL Normal 3.5-5.0 [facility] ([place]) Comment on above: Order Comment: copy Dr Turner Performed By: #### C BC, ADIFF, ANEU, PBNP #### [address] [address] #### LIPID, CMP, GFR #### [place] [address] Albumin/Globulin [Mass ratio] 1.6 {ratio} Normal 1.1-2.5 [facility] ([place]) Comment on above: Order Comment: copy Dr Turner Performed By: #### C BC, ADIFF, ANEU, PBNP #### [address] [place] [address] #### LIPID, CMP, GFR #### [address] [address] ALP [Catalytic activity/Vol] 123 U/L Normal 40-135 [facility] ([place]) Comment on above: Order Comment: copy Dr Turner Performed By: #### C BC, ADIFF, ANEU, PBNP #### [address] [address] #### LIPID, CMP, GFR #### [address] [address] ALT [Catalytic activity/Vol] 38 U/L Normal 16-63 [facility] ([place]) Comment on above: Order Comment: copy Dr Turner Performed By: #### C BC, ADIFF, ANEU, PBNP #### [place] [address] #### LIPID, CMP, GFR #### [address] [address] AST [Catalytic activity/Vol] 21 U/L Normal 10-40 [facility] ([place]) Comment on above: Order Comment: copy Dr Turner Performed By: #### C BC, ADIFF, ANEU, PBNP #### [place] [address] #### LIPID, CMP, GFR #### [address] [address] Bili Total 0.6 mg/dL Normal 0.2-1.0 [facility] ([place]) Comment on above: Order Comment: copy Dr Turner Result Comment: Use of this assay is not recommended for patients undergoing treatment with eltrombopag due to the potential for falsely elevated results. Performed By: #### C BC, ADIFF, ANEU, PBNP #### [place] [address] #### LIPID, CMP, GFR #### [address] [address] BUN/Creatinine Ratio 17 ratio Normal 7-27 [facility] ([place]) Comment on above: Order Comment: copy Dr Turner Performed By: #### C BC, ADIFF, ANEU, PBNP #### [address] [address] #### LIPID, CMP, GFR #### [address] [address] Calcium [Mass/Vol] 9.3 mg/dL Normal 8.4-10.2 [facility] ([place]) Comment on above: Order Comment: copy Dr Turner Performed By: #### C BC, ADIFF, ANEU, PBNP #### [address] [address] #### LIPID, CMP, GFR #### [address] [address] Chloride [Moles/Vol] 101 mmol/L Normal 98-107 [facility] ([place]) Comment on above: Order Comment: copy Dr Turner Performed By: #### C BC, ADIFF, ANEU, PBNP #### [place] [address] #### LIPID, CMP, GFR #### [address] [address] CO2 [Moles/Vol] 29 mmol/L Normal 22-29 [facility] ([place]) Comment on above: Order Comment: copy Dr Turner Performed By: #### C BC, ADIFF, ANEU, PBNP #### [place] [address] #### LIPID, CMP, GFR #### [address] [address] Creatinine [Mass/Vol] 1.04 mg/dL Normal 0.70-1.30 [facility] ([place]) Comment on above: Order Comment: copy Dr Turner Performed By: #### C BC, ADIFF, ANEU, PBNP #### [place] [address] #### LIPID, CMP, GFR #### [address] [address] Electrolyte Balance 9.0 mEq/L Normal [facility] ([place]) Comment on above: Order Comment: copy Dr Turner Performed By: #### C BC, ADIFF, ANEU, PBNP #### [address] [address] #### LIPID, CMP, GFR #### [address] [address] Globulin 2.7 G/dL Normal [facility] ([place]) Comment on above: Order Comment: copy Dr Turner Performed By: #### C BC, ADIFF, ANEU, PBNP #### [address] [address] #### LIPID, CMP, GFR #### [address] [address] Glucose [Mass/Vol] 155 mg/dL High 70-105 [facility] ([place]) Comment on above: Order Comment: copy Dr Turner Performed By: #### C BC, ADIFF, ANEU, PBNP #### [address] [address] #### LIPID, CMP, GFR #### [address] [address] Potassium [Moles/Vol] 4.5 mmol/L Normal 3.5-5.1 [facility] ([place]) Comment on above: Order Comment: copy Dr Turner Performed By: #### C BC, ADIFF, ANEU, PBNP #### [address] [address] #### LIPID, CMP, GFR #### [address] [address] Sodium [Moles/Vol] 139 mmol/L Normal 136-145 [facility] ([place]) Comment on above: Order Comment: copy Dr Turner Performed By: #### C BC, ADIFF, ANEU, PBNP #### [address] [address] #### LIPID, CMP, GFR #### [address] [address] Total Protein 6.9 G/dL Normal 6.4-8.2 [facility] ([place]) Comment on above: Order Comment: copy Dr Turner Performed By: #### C BC, ADIFF, ANEU, PBNP #### [address] [address] #### LIPID, CMP, GFR #### [address] [address] Urea nitrogen [Mass/Vol] 18 mg/dL Normal 7-18 [facility] ([place]) Comment on above: Order Comment: copy Dr Turner Performed By: #### C BC, ADIFF, ANEU, PBNP #### [address] [address] #### LIPID, CMP, GFR #### [address] [address] LIPIDon 03-11-2021 Cholesterol [Mass/Vol] 103 mg/dL Normal 0-200 [facility] ([place]) Comment on above: Order Comment: copy Dr Turner Result Comment: Chol esterol Reference Interval: Less than 200 Desirable 200-239 Borderline high risk 240 and above High risk Performed By: #### C BC, ADIFF, ANEU, PBNP #### [address] [address] #### LIPID, CMP, GFR #### [address] [address] Cholesterol in HDL [Mass/Vol] 41 mg/dL Normal 40-60 [facility] ([place]) Comment on above: Order Comment: copy Dr Turner Performed By: #### C BC, ADIFF, ANEU, PBNP #### [address] [address] #### LIPID, CMP, GFR #### [address] [address] Cholesterol in LDL [Mass/Vol] 45 mg/dL Normal 0-130 [facility] ([place]) Comment on above: Order Comment: copy Dr Turner Performed By: #### C BC, ADIFF, ANEU, PBNP #### [address] [address] #### LIPID, CMP, GFR #### [address] [address] Triglyceride [Mass/Vol] 83 mg/dL Normal 0-150 [facility] ([place]) Comment on above: Order Comment: copy Dr Turner Result Comment: Trig lyceride Reference Interval: Less than 150 Normal 150-199 Borderline high risk 200-499 High risk 500 or higher Very high risk Performed By: #### C BC, ADIFF, ANEU, PBNP #### [address] [address] #### LIPID, CMP, GFR #### [address] [address] PBNPon 03-11-2021 Natriuretic peptide B (Bld) [Mass/Vol] 123 pg/mL Normal 0-125 [facility] ([place]) Comment on above: Order Comment: copy Dr Turner Result Comment: NT-p roBNP results of less than 300 pg/mL effectively rules out acute congestive heart failure with 99% negative predictive value. Performed By: #### C BC, ADIFF, ANEU, PBNP #### [address] [address] #### LIPID, CMP, GFR #### [place] [id number] [place] MYOCARDIAL SPECT STRESS/R ESTon 12-29-2020 NM [...] PM Sign Date: 12/29/2020 5:28:40 PM Ordering Provider:[facility]) Vital Signs Date Time Vital Sign Value Performing Clinician Rachel bailon 08-24-2025 13:41-0400 Body height 185.[address] Pietro Turner MD Work Phone: [facility] 08-24-2025 13:41-0400 Body mass index (BMI) [Ratio] 33.6 kg/m2 Dr. Pietro Turner MD Work Phone: [facility] 08-24-2025 13:41-0400 Body temperature 98.2 [degF] Dr. Pietro Turner MD Work Phone: [facility] 08-24-2025 13:41-0400 Body weight 115.[address] Pietro Turner MD Work Phone: [facility] 08-24-2025 13:41-0400 Diastolic blood pressure 94 mm[Hg] Dr. Pietro Turner MD Work Phone: [facility] 08-24-2025 13:41-0400 Heart rate 88 /min Dr. Pietro Turner MD Work Phone: [facility] 08-24-2025 13:41-0400 SaO2% (BldA) [Mass fraction] 92 % Dr. Pietro Turner MD Work Phone: [facility] 08-24-2025 13:41-0400 Systolic blood pressure 162 mm[Hg] Dr. Pietro Turner MD Work Phone: [facility] 08-10-2025 07:51-0400 Body mass index (BMI) [Ratio] 34.2 kg/m2 Dr. Pietro Turner MD Work Phone: [facility] 08-10-2025 07:51-0400 Body weight 117.[address] Pietro Turner MD Work Phone: [facility] 08-10-2025 07:51-0400 Diastolic blood pressure 89 mm[Hg] Dr. Pietro Turner MD Work Phone: [facility] 08-10-2025 07:51-0400 Heart rate 85 /min Dr. Pietro Turner MD Work Phone: [facility] 08-10-2025 07:51-0400 Respiratory rate 18 /min Dr. Pietro Turner MD Work Phone: [facility] 08-10-2025 07:51-0400 SaO2% (BldA) [Mass fraction] 97 % Dr. Pietro Turner MD Work Phone: [facility] 08-10-2025 07:51-0400 Systolic blood pressure 148 mm[Hg] Dr. Pietro Turner MD Work Phone: [facility] 07-28-2025 10:34-0400 Body height 185.[address] Pietro Turner MD Work Phone: [facility] 07-28-2025 10:34-0400 Body mass index (BMI) [Ratio] 34.2 kg/m2 Dr. Pietro Turner MD Work Phone: [facility] 07-28-2025 10:34-0400 Body temperature 98.4 [degF] Dr. Pietro Turner MD Work Phone: [facility] 07-28-2025 10:34-0400 Body weight 117.[address] Pietro Turner MD Work Phone: [facility] 07-28-2025 10:34-0400 Diastolic blood pressure 90 mm[Hg] Dr. Pietro Turner MD Work Phone: [facility] 07-28-2025 10:34-0400 Heart rate 86 /min Dr. Pietro Turner MD Work Phone: [facility] 07-28-2025 10:34-0400 SaO2% (BldA) [Mass fraction] 97 % Dr. Pietro Turner MD Work Phone: [facility] 07-28-2025 10:34-0400 Systolic blood pressure 173 mm[Hg] Dr. Pietro Turner MD Work Phone: [facility] 06-17-2025 15:11-0400 Body height 185.[address] Pietro Turner MD Work Phone: [facility] 06-17-2025 15:11-0400 Body mass index (BMI) [Ratio] 35.2 kg/m2 Dr. Pietro Turner MD Work Phone: [facility] 06-17-2025 15:11-0400 Body temperature 98.6 [degF] Dr. Pietro Turner MD Work Phone: [facility] 06-17-2025 15:11-0400 Body weight 120.[address] Pietro Turner MD Work Phone: [facility] 06-17-2025 15:11-0400 Diastolic blood pressure 79 mm[Hg] Dr. Pietro Turner MD Work Phone: [facility] 06-17-2025 15:11-0400 Heart rate 98 /min Dr. Pietro Turner MD Work Phone: [facility] 06-17-2025 15:11-0400 Respiratory rate 16 /min Dr. Pietro Turner MD Work Phone: [facility] 06-17-2025 15:11-0400 SaO2% (BldA) [Mass fraction] 95 % Dr. Pietro Turner MD Work Phone: [facility] 06-17-2025 15:11-0400 Systolic blood pressure 153 mm[Hg] Dr. Pietro Turner MD Work Phone: [facility] 05-18-2025 11:44-0400 Body height 185.[address] Pietro Turner MD Work Phone: [facility] 05-18-2025 11:44-0400 Body mass index (BMI) [Ratio] 33.5 kg/m2 Dr. Pietro Turner MD Work Phone: [facility] 05-18-2025 11:44-0400 Body temperature 98.6 [degF] Dr. Pietro Turner MD Work Phone: [facility] 05-18-2025 11:44-0400 Body weight 115.[address] Pietro Turner MD Work Phone: [facility] 05-18-2025 11:44-0400 Diastolic blood pressure 78 mm[Hg] Dr. Pietro Turner MD Work Phone: [facility] 05-18-2025 11:44-0400 Heart rate 98 /min Dr. Pietro Turnre MD Work Phone: [facility] 05-18-2025 11:44-0400 Respiratory rate 16 /min Dr. Pietro Turner MD Work Phone: [facility] 05-18-2025 11:44-0400 SaO2% (BldA) [Mass fraction] 98 % Dr. Pietro Turner MD Work Phone: [facility] 05-18-2025 11:44-0400 Systolic blood pressure 132 mm[Hg] Dr. Pietro Turner MD Work Phone: [facility] 04-27-2025 10:34-0400 Body height 185.[address] Pietro Turner MD Work Phone: [facility] 04-27-2025 10:34-0400 Body mass index (BMI) [Ratio] 33.3 kg/m2 Dr. Pietro Turner MD Work Phone: [facility] 04-27-2025 10:34-0400 Body temperature 98.4 [degF] Dr. Pietro Turner MD Work Phone: [facility] 04-27-2025 10:34-0400 Body weight 114.[address] Pietro Turner MD Work Phone: [facility] 04-27-2025 10:34-0400 Diastolic blood pressure 88 mm[Hg] Dr. Pietro Turner MD Work Phone: [facility] 04-27-2025 10:34-0400 Heart rate 71 /min Dr. Pietro Turner MD Work Phone: [facility] 04-27-2025 10:34-0400 Respiratory rate 16 /min Dr. Pietro Turner MD Work Phone: [facility] 04-27-2025 10:34-0400 SaO2% (BldA) [Mass fraction] 96 % Dr. Pietro Turner MD Work Phone: [facility] 04-27-2025 10:34-0400 Systolic blood pressure 153 mm[Hg] Dr. Pietro Turner MD Work Phone: [facility] 01-01-2025 16:10-0500 Body height 185.[address] Pietro Turner MD Work Phone: [facility] 01-01-2025 16:10-0500 Body mass index (BMI) [Ratio] 33.7 kg/m2 Dr. Pietro Turner MD Work Phone: [facility] 01-01-2025 16:10-0500 Body temperature 98.4 [degF] Dr. Pietro Turner MD Work Phone: [facility] 01-01-2025 16:10-0500 Body weight 115.[address] Pietro Turner MD Work Phone: [facility] 01-01-2025 16:10-0500 Diastolic blood pressure 76 mm[Hg] Dr. Pietro Turner MD Work Phone: [facility] 01-01-2025 16:10-0500 Heart rate 76 /min Dr. Pietro Turner MD Work Phone: [facility] 01-01-2025 16:10-0500 Respiratory rate 16 /min Dr. Pietro Turner MD Work Phone: [facility] 01-01-2025 16:10-0500 SaO2% (BldA) [Mass fraction] 99 % Dr. Pietro Turner MD Work Phone: [facility] 01-01-2025 16:10-0500 Systolic blood pressure 134 mm[Hg] Dr. Pietro Turner MD Work Phone: [facility] 11-25-2024 14:55-0500 Body mass index (BMI) [Ratio] 34.4 kg/m2 Dr. Pietro Turner MD Work Phone: [facility] 11-25-2024 14:55-0500 Body weight 118.[address] Pietro Turner MD Work Phone: [facility] 11-25-2024 14:55-0500 Diastolic blood pressure 79 mm[Hg] Dr. Pietro Turner MD Work Phone: [facility] 11-25-2024 14:55-0500 Heart rate 76 /min Dr. Pietro Turner MD Work Phone: [facility] 11-25-2024 14:55-0500 Respiratory rate 16 /min Dr. Pietro Turner MD Work Phone: [facility] 11-25-2024 14:55-0500 Systolic blood pressure 121 mm[Hg] Dr. Pietro Turner MD Work Phone: [facility] 11-14-2024 23:00-0500 Body temperature 98 [degF] Dr. Pietro Turner MD Work Phone: [facility] 11-14-2024 23:00-0500 Diastolic blood pressure 71 mm[Hg] Dr. Pietro Turner MD Work Phone: [facility] 11-14-2024 23:00-0500 Heart rate 72 /min Dr. Pietro Turner MD Work Phone: [facility] 11-14-2024 23:00-0500 Respiratory rate 16 /min Dr. Pietro Turner MD Work Phone: [facility] 11-14-2024 23:00-0500 SaO2% (BldA) [Mass fraction] 97 % Dr. Pietro Turner MD Work Phone: [facility] 11-14-2024 23:00-0500 Systolic blood pressure 117 mm[Hg] Dr. Pietro Turner MD Work Phone: [facility] 11-13-2024 15:05-0500 Body temperature 97.4 [degF] Dr. Pietro Turner MD Work Phone: [facility] 11-13-2024 15:05-0500 Diastolic blood pressure 70 mm[Hg] Dr. Pietro Turner MD Work Phone: [facility] 11-13-2024 15:05-0500 Heart rate 73 /min Dr. Pietro Turner MD Work Phone: [facility] 11-13-2024 15:05-0500 Respiratory rate 16 /min Dr. Pietro Turner MD Work Phone: [facility] 11-13-2024 15:05-0500 SaO2% (BldA) [Mass fraction] 98 % Dr. Pietro Turner MD Work Phone: [facility] 11-13-2024 15:05-0500 Systolic blood pressure 138 mm[Hg] Dr. Pietro Turner MD Work Phone: [facility] 11-07-2024 08:23-0500 Body temperature 98.4 [degF] Dr. Pietro Turner MD Work Phone: [facility] 11-07-2024 08:23-0500 Diastolic blood pressure 72 mm[Hg] Dr. Pietro Turner MD Work Phone: [facility] 11-07-2024 08:23-0500 Heart rate 60 /min Dr. Pietro Turner MD Work Phone: [facility] 11-07-2024 08:23-0500 Respiratory rate 16 /min Dr. Pietro Turner MD Work Phone: [facility] 11-07-2024 08:23-0500 SaO2% (BldA) [Mass fraction] 98 % Dr. Pietro Turner MD Work Phone: [facility] 11-07-2024 08:23-0500 Systolic blood pressure 120 mm[Hg] Dr. Pietro Turner MD Work Phone: [facility] 11-07-2024 06:50-0500 Body mass index (BMI) [Ratio] 34.3 kg/m2 Dr. Pietro Turner MD Work Phone: [facility] 11-07-2024 06:50-0500 Body weight [address] Pietro Turner MD Work Phone: [facility] 10-16-2024 15:43-0500 Body temperature 98 [degF] Dr. Pietro Turner MD Work Phone: [facility] 10-16-2024 15:43-0500 Diastolic blood pressure 82 mm[Hg] Dr. Pietro Turner MD Work Phone: [facility] 10-16-2024 15:43-0500 Heart rate 75 /min Dr. Pietro Turner MD Work Phone: [facility] 10-16-2024 15:43-0500 Respiratory rate 16 /min Dr. Pietro Turner MD Work Phone: [facility] 10-16-2024 15:43-0500 SaO2% (BldA) [Mass fraction] 98 % Dr. Pietro Turner MD Work Phone: [facility] 10-16-2024 15:43-0500 Systolic blood pressure 132 mm[Hg] Dr. Pietro Turner MD Work Phone: [facility] 10-14-2024 13:35-0500 Body mass index (BMI) [Ratio] 35.1 kg/m2 Dr. Pietro Turner MD Work Phone: [facility] 10-14-2024 13:35-0500 Body temperature 98.2 [degF] Dr. Pietro Turner MD Work Phone: [facility] 10-14-2024 13:35-0500 Body weight 120.[address] Pietro Turner MD Work Phone: [facility] 10-14-2024 13:35-0500 Diastolic blood pressure 74 mm[Hg] Dr. Pietro Turner MD Work Phone: [facility] 10-14-2024 13:35-0500 Heart rate 80 /min Dr. Pietro Turner MD Work Phone: [facility] 10-14-2024 13:35-0500 Respiratory rate 18 /min Dr. Pietro Turner MD Work Phone: [facility] 10-14-2024 13:35-0500 SaO2% (BldA) [Mass fraction] 99 % Dr. Pietro Turner MD Work Phone: [facility] 10-14-2024 13:35-0500 Systolic blood pressure 128 mm[Hg] Dr. Pietro Turner MD Work Phone: [facility] 02-19-2024 06:00-0400 Body temperature 98 [degF] Dr. Pietro Turner Work Phone: [facility] 02-19-2024 06:00-0400 Diastolic blood pressure 72 mm[Hg] Dr. Pietro Turner Work Phone: [facility] 02-19-2024 06:00-0400 Heart rate 64 /min Dr. Pietro Turner Work Phone: [facility] 02-19-2024 06:00-0400 Respiratory rate 17 /min Dr. Pietro Turner Work Phone: [facility] 02-19-2024 06:00-0400 SaO2% (BldA) [Mass fraction] 99 % Dr. Pietro Turner Work Phone: [facility] 02-19-2024 06:00-0400 Systolic blood pressure 138 mm[Hg] Dr. Pietro Turner Work Phone: [facility] 02-19-2024 02:25-0400 Body height 185.[address] Pietro Turner Work Phone: [facility] 02-19-2024 02:25-0400 Body mass index (BMI) [Ratio] 33.9 kg/m2 Dr. Pietro Turner Work Phone: [facility] 02-19-2024 02:25-0400 Body weight 116.[address] Pietro Turner Work Phone: [facility] 01-07-2024 14:00-0400 Body height 185.[address] Pietro Turner Work Phone: [facility] 01-07-2024 14:00-0400 Body weight 119.[address] Pietro Turner Work Phone: [facility] 01-03-2024 13:37-0500 Body height 182.[address] Pietro Turner Work Phone: [facility] 01-03-2024 13:37-0500 Body mass index (BMI) [Ratio] 35.7 kg/m2 Dr. Pietro Turner Work Phone: [facility] 01-03-2024 13:37-0500 Body temperature 97.5 [degF] Dr. Pietro Turner Work Phone: [facility] 01-03-2024 13:37-0500 Body weight 119.[address] Pietro Turner Work Phone: [facility] 01-03-2024 13:37-0500 Diastolic blood pressure 82 mm[Hg] Dr. Pietro Turner Work Phone: [facility] 01-03-2024 13:37-0500 Heart rate 69 /min Dr. Pietro Turner Work Phone: [facility] 01-03-2024 13:37-0500 Respiratory rate 16 /min Dr. Pietro Turner Work Phone: [facility] 01-03-2024 13:37-0500 SaO2% (BldA) [Mass fraction] 97 % Dr. Pietro Turner Work Phone: [facility] 01-03-2024 13:37-0500 Systolic blood pressure 153 mm[Hg] Dr. Pietro Turner Work Phone: [facility] 11-14-2023 14:00-0500 Body weight 119.[address] Pietro Turner Work Phone: [facility] 11-07-2023 10:37-0500 Body mass index (BMI) [Ratio] 36.4 kg/m2 Dr. Pietro Turner Work Phone: [facility] 11-07-2023 10:37-0500 Body temperature 97.4 [degF] Dr. Pietro Turner Work Phone: [facility] 11-07-2023 10:37-0500 Body weight 122.[address] Pietro Turner Work Phone: [facility] 11-07-2023 10:37-0500 Diastolic blood pressure 79 mm[Hg] Dr. Pietro Turner Work Phone: [facility] 11-07-2023 10:37-0500 Heart rate 82 /min Dr. Pietro Turner Work Phone: [facility] 11-07-2023 10:37-0500 Respiratory rate 16 /min Dr. Pietro Turner Work Phone: [facility] 11-07-2023 10:37-0500 SaO2% (BldA) [Mass fraction] 94 % Dr. Pietro Turner Work Phone: [facility] 11-07-2023 10:37-0500 Systolic blood pressure 127 mm[Hg] Dr. Pietro Turner Work Phone: [facility] 09-25-2023 14:55-0500 Body height 182.[address] Pietro Turner Work Phone: [facility] 09-25-2023 14:55-0500 Body mass index (BMI) [Ratio] 35.5 kg/m2 Dr. Pietro Turner Work Phone: [facility] 09-25-2023 14:55-0500 Body weight 118.[address] Pietro Turner Work Phone: [facility] 09-25-2023 14:55-0500 Diastolic blood pressure 86 mm[Hg] Dr. Pietro Turner Work Phone: [facility] 09-25-2023 14:55-0500 Heart rate 63 /min Dr. Pietro Turner Work Phone: [facility] 09-25-2023 14:55-0500 Respiratory rate 14 /min Dr. Pietro Turner Work Phone: [facility] 09-25-2023 14:55-0500 Systolic blood pressure 141 mm[Hg] Dr. Pietro Turner Work Phone: [facility] 08-31-2023 16:37-0400 Body mass index (BMI) [Ratio] 36.6 kg/m2 Dr. Pietro Turner Work Phone: [facility] 08-31-2023 16:37-0400 Body temperature 98.3 [degF] Dr. Pietro Turner Work Phone: [facility] 08-31-2023 16:37-0400 Body weight 122.[address] Pietro Turner Work Phone: [facility] 08-31-2023 16:37-0400 Diastolic blood pressure 80 mm[Hg] Dr. Pietro Turner Work Phone: [facility] 08-31-2023 16:37-0400 Heart rate 82 /min Dr. Pietro Turner Work Phone: [facility] 08-31-2023 16:37-0400 Respiratory rate 17 /min Dr. Pietro Turner Work Phone: [facility] 08-31-2023 16:37-0400 SaO2% (BldA) [Mass fraction] 97 % Dr. Pietro Turner Work Phone: [facility] 08-31-2023 16:37-0400 Systolic blood pressure 139 mm[Hg] Dr. Pietro Turner Work Phone: [facility] 08-23-2023 15:14-0400 Body mass index (BMI) [Ratio] 35.5 kg/m2 Dr. Pietro Turner Work Phone: [facility] 08-23-2023 15:14-0400 Body temperature 97.7 [degF] Dr. Pietro Turner Work Phone: [facility] 08-23-2023 15:14-0400 Body weight 122.[address] Pietro Turner Work Phone: [facility] 08-23-2023 15:14-0400 Diastolic blood pressure 76 mm[Hg] Dr. Pietro Turner Work Phone: [facility] 08-23-2023 15:14-0400 Heart rate 73 /min Dr. Pietro Turner Work Phone: [facility] 08-23-2023 15:14-0400 Respiratory rate 16 /min Dr. Pietro Turner Work Phone: [facility] 08-23-2023 15:14-0400 SaO2% (BldA) [Mass fraction] 97 % Dr. Pietro Turner Work Phone: [facility] 08-23-2023 15:14-0400 Systolic blood pressure 135 mm[Hg] Dr. Pietro Turner Work Phone: [facility] 03-07-2023 14:48-0400 Body height 185.[address] Pietro Turner Work Phone: [facility] 03-07-2023 14:48-0400 Body mass index (BMI) [Ratio] 35.6 kg/m2 Dr. Pietro Turner Work Phone: [facility] 03-07-2023 14:48-0400 Body temperature 98.6 [degF] Dr. Pietro Turner Work Phone: [facility] 03-07-2023 14:48-0400 Body weight 122.[address] Pietro Turner Work Phone: [facility] 03-07-2023 14:48-0400 Diastolic blood pressure 86 mm[Hg] Dr. Pietro Turner Work Phone: [facility] 03-07-2023 14:48-0400 Heart rate 88 /min Dr. Pietro Turner Work Phone: [facility] 03-07-2023 14:48-0400 Respiratory rate 18 /min Dr. Pietro Turner Work Phone: [facility] 03-07-2023 14:48-0400 SaO2% (BldA) [Mass fraction] 94 % Dr. Pietro Turner Work Phone: [facility] 03-07-2023 14:48-0400 Systolic blood pressure 142 mm[Hg] Dr. Pietro Turner Work Phone: [facility] 01-29-2023 15:06-0400 Body mass index (BMI) [Ratio] 35.4 kg/m2 Dr. Pietro Turner Work Phone: [facility] 01-29-2023 15:06-0400 Body weight 122.[address] Pietro Turner Work Phone: [facility] 01-29-2023 15:06-0400 Diastolic blood pressure 78 mm[Hg] Dr. Pietro Turner Work Phone: [facility] 01-29-2023 15:06-0400 Heart rate 83 /min Dr. Pietro Turner Work Phone: [facility] 01-29-2023 15:06-0400 Respiratory rate 18 /min Dr. Pietro Turner Work Phone: [facility] 01-29-2023 15:06-0400 SaO2% (BldA) [Mass fraction] 94 % Dr. Pietro Turner Work Phone: [facility] 01-29-2023 15:06-0400 Systolic blood pressure 146 mm[Hg] Dr. Pietro Turner Work Phone: [facility] 11-09-2022 11:12-0500 Body mass index (BMI) [Ratio] 35.9 kg/m2 Dr. Pietro Turner Work Phone: [facility] 11-09-2022 11:12-0500 Body weight 123.[address] Pietro Turner Work Phone: [facility] 11-09-2022 11:12-0500 Diastolic blood pressure 93 mm[Hg] Dr. Pietro Turner Work Phone: [facility] 11-09-2022 11:12-0500 Heart rate 87 /min Dr. Pietro Turner Work Phone: [facility] 11-09-2022 11:12-0500 Respiratory rate 18 /min Dr. Pietro Turner Work Phone: [facility] 11-09-2022 11:12-0500 Systolic blood pressure 179 mm[Hg] Dr. Pietro Turner Work Phone: [facility] 10-18-2022 14:11-0500 Body temperature 97.6 [degF] Dr. Pietro Turner Work Phone: [facility] Work Phone: 10-18-2022 14:11-0500 Body weight 119.[address] Pietro Turner Work Phone: [facility] Work Phone: 10-18-2022 14:11-0500 Diastolic blood pressure 87 mm[Hg] Dr. Pietro Turner Work Phone: [facility] Work Phone: 10-18-2022 14:11-0500 Heart rate 67 /min Dr. Pietro Turner Work Phone: [facility] Work Phone: 10-18-2022 14:11-0500 Respiratory rate 16 /min Dr. Pietro Turner Work Phone: [facility] Work Phone: 10-18-2022 14:11-0500 SaO2% (BldA) [Mass fraction] 98 % Dr. Pietro Turner Work Phone: [facility] Work Phone: 10-18-2022 14:11-0500 Systolic blood pressure 152 mm[Hg] Dr. Pietro Turner Work Phone: [facility] Work Phone: 07-29-2022 23:13-0400 Body height 185.[address] Pietro Turner Work Phone: [facility] Work Phone: 07-29-2022 23:13-0400 Body mass index (BMI) [Ratio] 34.2 kg/m2 Dr. Pietro Turner Work Phone: [facility] Work Phone: 07-29-2022 23:13-0400 Body temperature 97.4 [degF] Dr. Pietro Turner Work Phone: [facility] Work Phone: 07-29-2022 23:13-0400 Body weight 117.[address] Pietro Turner Work Phone: [facility] Work Phone: 07-29-2022 23:13-0400 Diastolic blood pressure 86 mm[Hg] Dr. Pietro Turner Work Phone: [facility] Work Phone: 07-29-2022 23:13-0400 Heart rate 78 /min Dr. Pietro Turner Work Phone: [facility] Work Phone: 07-29-2022 23:13-0400 Respiratory rate 14 /min Dr. Pietro Turner Work Phone: [facility] Work Phone: 07-29-2022 23:13-0400 SaO2% (BldA) [Mass fraction] 100 % Dr. Pietro Turner Work Phone: [facility] Work Phone: 07-29-2022 23:13-0400 Systolic blood pressure 173 mm[Hg] Dr. Pietro Turner Work Phone: [facility] Work Phone: 07-19-2022 13:41-0400 Body temperature 98 [degF] Dr. Pietro Turner Work Phone: [facility] Work Phone: 07-19-2022 13:41-0400 Body weight 122.[address] Pietro Turner Work Phone: [facility] Work Phone: 07-19-2022 13:41-0400 Diastolic blood pressure 90 mm[Hg] Dr. Pietro Turner Work Phone: [facility] Work Phone: 07-19-2022 13:41-0400 Heart rate 68 /min Dr. Pietro Turner Work Phone: [facility] Work Phone: 07-19-2022 13:41-0400 Respiratory rate 16 /min Dr. Pietro Turner Work Phone: [facility] Work Phone: 07-19-2022 13:41-0400 SaO2% (BldA) [Mass fraction] 97 % Dr. Pietro Turner Work Phone: [facility] Work Phone: 07-19-2022 13:41-0400 Systolic blood pressure 158 mm[Hg] Dr. Pietro Turner Work Phone: [facility] Work Phone: 05-29-2022 14:24-0400 Body temperature 97.8 [degF] Dr. Pietro Turner Work Phone: [facility] Work Phone: 05-29-2022 14:24-0400 Diastolic blood pressure 80 mm[Hg] Dr. Pietro Turner Work Phone: [facility] Work Phone: 05-29-2022 14:24-0400 Heart rate 70 /min Dr. Pietro Turner Work Phone: [facility] Work Phone: 05-29-2022 14:24-0400 Respiratory rate 16 /min Dr. Pietro Turner Work Phone: [facility] Work Phone: 05-29-2022 14:24-0400 Systolic blood pressure 130 mm[Hg] Dr. Pietro Turner Work Phone: [facility] Work Phone: 05-18-2022 16:03-0400 Body height 185.[address] Pietro Turner Work Phone: [facility] Work Phone: 05-18-2022 16:03-0400 Body mass index (BMI) [Ratio] 34.4 kg/m2 Dr. Pietro Turner Work Phone: [facility] Work Phone: 05-18-2022 16:03-0400 Body temperature 98.2 [degF] Dr. Pietro Turner Work Phone: [facility] Work Phone: 05-18-2022 16:03-0400 Body weight 118.[address] Pietro Turner Work Phone: [facility] Work Phone: 05-18-2022 16:03-0400 Diastolic blood pressure 86 mm[Hg] Dr. Pietro Turner Work Phone: [facility] Work Phone: 05-18-2022 16:03-0400 Heart rate 75 /min Dr. Pietro Turner Work Phone: [facility] Work Phone: 05-18-2022 16:03-0400 Respiratory rate 16 /min Dr. Pietro Turner Work Phone: [facility] Work Phone: 05-18-2022 16:03-0400 SaO2% (BldA) [Mass fraction] 98 % Dr. Pietro Turner Work Phone: [facility] Work Phone: 05-18-2022 16:03-0400 Systolic blood pressure 138 mm[Hg] Dr. Pietro Turner Work Phone: [facility] Work Phone: 05-11-2022 09:41-0400 Body height 185.[address] Pietro Turner Work Phone: [facility] Work Phone: 05-11-2022 09:41-0400 Body mass index (BMI) [Ratio] 34.5 kg/m2 Dr. Pietro Turner Work Phone: [facility] Work Phone: 05-11-2022 09:41-0400 Body temperature 98.2 [degF] Dr. Pietro Turner Work Phone: [facility] Work Phone: 05-11-2022 09:41-0400 Body weight 118.[address] Pietro Turner Work Phone: [facility] Work Phone: 05-11-2022 09:41-0400 Diastolic blood pressure 68 mm[Hg] Dr. Pietro Turner Work Phone: [facility] Work Phone: 05-11-2022 09:41-0400 Heart rate 67 /min Dr. Pietro Turner Work Phone: [facility] Work Phone: 05-11-2022 09:41-0400 Respiratory rate 18 /min Dr. Pietro Turner Work Phone: [facility] Work Phone: 05-11-2022 09:41-0400 SaO2% (BldA) [Mass fraction] 99 % Dr. Pietro Turner Work Phone: [facility] Work Phone: 05-11-2022 09:41-0400 Systolic blood pressure 130 mm[Hg] Dr. Pietro Turner Work Phone: [facility] Work Phone: 05-02-2022 14:07-0400 Diastolic blood pressure 80 mm[Hg] Dr. Pietro Turner Work Phone: [facility] Work Phone: 05-02-2022 14:07-0400 Systolic blood pressure 138 mm[Hg] Dr. Pietro Turner Work Phone: [facility] Work Phone: 05-02-2022 14:07-0400 Body mass index (BMI) [Ratio] 33.6 kg/m2 Dr. Pietro Turner Work Phone: [facility] Work Phone: 05-02-2022 14:07-0400 Body weight 115.[address] Pietro Turner Work Phone: [facility] Work Phone: 05-02-2022 14:07-0400 Heart rate 74 /min Dr. Pietro Turner Work Phone: [facility] Work Phone: 05-02-2022 14:07-0400 Respiratory rate 18 /min Dr. Pietro Turner Work Phone: [facility] Work Phone: 05-02-2022 14:07-0400 SaO2% (BldA) [Mass fraction] 96 % Dr. Pietro Turner Work Phone: [facility] Work Phone: 02-16-2022 10:43-0400 Body mass index (BMI) [Ratio] 34.4 kg/m2 Dr. Pietro Turner Work Phone: [facility] Work Phone: 02-16-2022 10:43-0400 Body temperature 97.8 [degF] Dr. Pietro Turner Work Phone: [facility] Work Phone: 02-16-2022 10:43-0400 Body weight 118.[address] Pietro Turner Work Phone: [facility] Work Phone: 02-16-2022 10:43-0400 Diastolic blood pressure 84 mm[Hg] Dr. Pietro Turner Work Phone: [facility] Work Phone: 02-16-2022 10:43-0400 Heart rate 84 /min Dr. Pietro Turner Work Phone: [facility] Work Phone: 02-16-2022 10:43-0400 Respiratory rate 14 /min Dr. Pietro Turner Work Phone: [facility] Work Phone: 02-16-2022 10:43-0400 SaO2% (BldA) [Mass fraction] 99 % Dr. Pietro Turner Work Phone: [facility] Work Phone: 02-16-2022 10:43-0400 Systolic blood pressure 152 mm[Hg] Dr. Pietro Turner Work Phone: [facility] Work Phone: 02-16-2022 10:43-0400 Body height 185.[address] Pietro Turner Work Phone: [facility] Work Phone: 02-16-2022 10:43-0400 Body mass index (BMI) [Ratio] 34.4 kg/m2 Dr. Pietro Turner Work Phone: [facility] Work Phone: 02-16-2022 10:43-0400 Body temperature 97.8 [degF] Dr. Pietro Turner Work Phone: [facility] Work Phone: 02-16-2022 10:43-0400 Body weight 118.[address] Pietro Turner Work Phone: [facility] Work Phone: 02-16-2022 10:43-0400 Diastolic blood pressure 84 mm[Hg] Dr. Pietro Turner Work Phone: [facility] Work Phone: 02-16-2022 10:43-0400 Heart rate 84 /min Dr. Pietro Turner Work Phone: [facility] Work Phone: 02-16-2022 10:43-0400 Respiratory rate 14 /min Dr. Pietro Turner Work Phone: [facility] Work Phone: 02-16-2022 10:43-0400 SaO2% (BldA) [Mass fraction] 99 % Dr. Pietro Turner Work Phone: [facility] Work Phone: 02-16-2022 10:43-0400 Systolic blood pressure 152 mm[Hg] Dr. Pietro Turner Work Phone: [facility] Work Phone: 12-22-2021 12:08-0500 Body mass index (BMI) [Ratio] 33.7 kg/m2 Dr. Pietro Turner Work Phone: [facility] Work Phone: 12-22-2021 12:08-0500 Body temperature 95.9 [degF] Dr. Pietro Turner Work Phone: [facility] Work Phone: 12-22-2021 12:08-0500 Body weight 116.[address] Pietro Turner Work Phone: [facility] Work Phone: 12-22-2021 12:08-0500 Diastolic blood pressure 80 mm[Hg] Dr. Pietro Turner Work Phone: [facility] Work Phone: 12-22-2021 12:08-0500 Heart rate 74 /min Dr. Pietro Turner Work Phone: [facility] Work Phone: 12-22-2021 12:08-0500 Respiratory rate 16 /min Dr. Pietro Turner Work Phone: [facility] Work Phone: 12-22-2021 12:08-0500 SaO2% (BldA) [Mass fraction] 99 % Dr. Pietro Turner Work Phone: [facility] Work Phone: 12-22-2021 12:08-0500 Systolic blood pressure 120 mm[Hg] Dr. Pietro Turner Work Phone: [facility] Work Phone: 11-28-2021 11:44-0500 Body mass index (BMI) [Ratio] 34 kg/m2 Dr. Pietro Turner Work Phone: [facility] Work Phone: 11-28-2021 11:44-0500 Body temperature 97.6 [degF] Dr. Pietro Turner Work Phone: [facility] Work Phone: 11-28-2021 11:44-0500 Body weight 117.[address] Pietro Turner Work Phone: [facility] Work Phone: 11-28-2021 11:44-0500 Diastolic blood pressure 93 mm[Hg] Dr. Pietro Turner Work Phone: [facility] Work Phone: 11-28-2021 11:44-0500 Heart rate 75 /min Dr. Pietro Turner Work Phone: [facility] Work Phone: 11-28-2021 11:44-0500 Respiratory rate 16 /min Dr. Pietro Turner Work Phone: [facility] Work Phone: 11-28-2021 11:44-0500 SaO2% (BldA) [Mass fraction] 97 % Dr. Pietro Turner Work Phone: [facility] Work Phone: 11-28-2021 11:44-0500 Systolic blood pressure 166 mm[Hg] Dr. Pietro Turner Work Phone: [facility] [facility]: 11-02-2021 05:57-0500 Body weight 117.[address] Pietro Turner Work Phone: [facility] Work Phone: 11-01-2021 06:08-0500 Body mass index (BMI) [Ratio] 34.2 kg/m2 Dr. Pietro Turner Work Phone: [facility] Work Phone: Encounters Encounter Date Encounter Type Care Provider Facility Start: 08-24-2025 End: 08-24-2025 ambulatory [facility] Facility:[facility] Start: 08-14-2025 End: 08-14-2025 ambulatory [facility] Facility:[facility] Start: 08-10-2025 End: 08-10-2025 Jocelyne MARTINEZ -[facility] Work Phone: Start: 08-10-2025 End: 08-10-[address] Pietro Turner MD Work Phone: -[facility] Start: 07-28-2025 End: 07-28-[address] Pietro Turner MD -[facility] Work Phone: Start: 07-28-2025 End: 07-28-2025 Dr. Pietro Turner MD -[facility] Work Phone: Start: 07-28-2025 End: 07-28-[address] Pietro Turner MD Work Phone: -[facility] Start: 06-24-2025 End: 06-24-[address] Pietro Turner MD Work Phone: -Laboratory Start: 06-24-2025 End: 06-24-[address] Pietro Turner MD -Laboratory Work Phone: Start: 06-24-2025 End: 06-24-2025 Dr. Pietro Turner MD -Laboratory Work Phone: Start: 06-24-2025 End: 06-24-2025 ambulatory Pietro Turner Facility:[facility] Start: 06-17-2025 End: 06-17-[address] Pietro Turner MD -[facility] Work Phone: Start: 06-17-2025 End: 06-17-2025 Dr. Pietro Turner MD -[facility] Work Phone: Start: 06-17-2025 End: 06-17-[address] Pietro Turner MD Work Phone: -[facility] Start: 06-15-2025 End: 06-15-[address] Pietro Turner MD Work Phone: -Laboratory Start: 06-15-2025 End: 06-15-[address] Pietro Turner MD -Laboratory Work Phone: Start: 06-15-2025 End: 06-15-2025 Dr. Pietro Turner MD -Laboratory Work Phone: Start: 06-15-2025 End: 06-15-2025 ambulatory Pietro Turner Facility:[facility] Start: 05-18-2025 End: 05-18-[address] Pietro Turner MD Work Phone: -Laboratory Specimen Start: 05-18-2025 End: 05-18-[address] Pietro Turner MD -Laboratory Specimen Work Phone: Start: 05-18-2025 End: 05-18-2025 Dr. Pietro Turner MD -Laboratory Specim en Work Phone: Start: 05-18-2025 End: 05-18-[address] Pietro Turner MD -[facility] Work Phone: Start: 05-18-2025 End: 05-18-2025 Dr. Pietro Turner MD -[facility] Work Phone: Start: 05-18-2025 End: 05-18-[address] Pietro Turner MD Work Phone: -[facility] Start: 05-18-2025 End: 05-18-2025 ambulatory Pietro Turner Facility:[facility] Start: 05-14-2025 End: 05-14-2025 [id number] Start: 04-27-2025 End: 04-27-[address] Pietro Turner MD -[facility] Work Phone: Start: 04-27-2025 End: 04-27-2025 Dr. Pietro Turner MD -[facility] Work Phone: Start: 04-27-2025 End: 04-27-[address] Pietro Turner MD Work Phone: -[facility] Start: 04-21-2025 ambulatory Pietro Turner Facility :[facility] [place] Start: 02-09-2025 End: 02-09-[address] Pietro Turner MD Work Phone: [facility] Work Phone: Start: 02-09-2025 End: 02-09-[address] Pietro Turenr MD -Laboratory [facility] Start: 02-09-2025 End: 02-09-2025 Dr. Pietro Turner MD -Laboratory, [place] Start: 02-09-2025 End: 02-09-2025 ambulatory [facility] Facility:[facility] Start: 01-01-2025 End: 01-01-[address] Pietro Turner MD -[facility] Work Phone: Start: 01-01-2025 End: 01-01-2025 Dr. Pietro Turner MD -[facility] Work Phone: Start: 01-01-2025 End: 01-01-2025 ambulatory [facility] Facility:[facility] Start: 12-22-2024 ambulatory [facility] :[facility] Start: 12-08-2024 ambulatory [facility] :[facility] Start: 11-25-2024 End: 11-25-[address] Marck Orellana MD -[facility] Work Phone: Start: 11-25-2024 End: 11-25-2024 Dr. Marck Orellana MD -[facility] Work Phone: Start: 11-25-2024 End: 11-25-2024 ambulatory [facility] Facility:[facility] Start: 11-14-2024 End: 11-14-2024 [facility] Start: 11-14-2024 End: 11-14-2024 Emergency department patient visit Dr. Lamberto Desai DO -Emergency Department Work Phone: Start: 11-13-2024 End: 11-13-2024 Patient encounter procedure Solitario Guy PA -[facility] Work Phone: Start: 11-13-2024 End: 11-13-2024 Solitario Guy PA -[facility] Work Phone: Start: 11-13-2024 End: 11-13-2024 ambulatory Solitario KILGORE Facility:[facility] Start: 11-07-2024 Non-patient / Non-visit Dr. Dimitry Camp MD -[facility] Start: 11-07-2024 End: 11-07-2024 Admission to same day surgery center Dr. Dimitry Camp MD -Endoscopy Work Phone: Start: 11-07-2024 End: 11-07-2024 Dr. Dimitry Camp MD -Endoscopy Work Phone: Start: 11-07-2024 End: 11-07-2024 ambulatory Pietro Turner Facility:[facility] Start: 10-30-2024 End: 10-30-[address] Pietro Turner MD Work Phone: [facility] Work Phone: Start: 10-30-2024 End: 10-30-2024 Discharged Recurring Solitario KILGORE -Occupational Thera py Work Phone: Start: 10-30-2024 End: 10-30-2024 Solitario KILGORE -Occupational Therap y Work Phone: Start: 10-27-2024 ambulatory Marck Orellana Facility:[facility] Start: 10-27-2024 Non-patient / Non-visit Dr. Marck Orellana MD -[facility] Start: 10-27-2024 End: 10-27-2024 Patient encounter procedure Jocelyne Dickey NURSING STAFFING COORDINATOR-C -Cardiovascular Services Work Phone: Start: 10-27-2024 End: 10-27-2024 Dr. Marck Orellana MD [facility] Start: 10-27-2024 End: 10-27-2024 ambulatory Jocelyne Dickey NP Facility:[facility] Start: 10-16-2024 End: 10-16-2024 Patient encounter procedure Solitario KILGORE -[facility] Work Phone: Start: 10-16-2024 End: 10-16-2024 Solitario KILGORE -[facility] Work Phone: Start: 10-16-2024 End: 10-16-2024 ambulatory Solitario KILGORE Facility:[facility] Start: 10-14-2024 End: 10-14-[address] Dimitry Camp MD -[facility] Work Phone: Start: 10-14-2024 End: 10-14-2024 ambulatory Pietro Turner Facility:[facility] Start: 09-26-2024 End: 09-26-2024 ambulatory Solitario KILGORE Facility:[facility] Start: 09-26-2024 End: 09-26-2024 ambulatory Solitario KILGORE Facility:[facility] Start: 09-11-2024 ambulatory Pietro Turner Facility :[facility] Start: 09-05-2024 End: 09-05-2024 ambulatory Pietro Turner Facility:[facility] Start: 02-19-2024 End: 02-19-2024 Emergency department patient visit Dr. Pietro Turner Work Phone: [facility]-Emergency Department Work Phone: Start: 01-07-2024 End: 01-27-[address] Pietro Turner Work Phone: [facility] Work Phone: Start: 01-07-2024 End: 01-27-[address] [facility] Work [facility] Start: 01-07-[address] Piet[facility] Work [facility] Start: 01-03-2024 End: 01-03-[address] Pietro Turner Work Phone: [facility] Work Phone: Start: 01-03-2024 End: 01-03-[address] Pietro Turner Work Phone: [facility] Work Phone: Start: 11-14-2023 End: 01-31-[address] Pietro Turner Work Phone: [facility] Work Phone: Start: 11-07-2023 End: 11-07-[address] Pietro Turner Work Phone: [facility] Work Phone: Start: 10-05-2023 End: 10-05-2023 ambulatory KASEY MANJIT NATALY Facility:[facility] Start: 09-25-2023 End: 09-25-[address] Pietro Turner Work Phone: [facility] Work Phone: Start: 09-24-2023 End: 09-24-[address] Pietro Turner Work Phone: [facility] Work Phone: Start: 09-24-2023 End: 09-24-[address] Pietro Turner Work Phone: [facility]-Laboratory Work Phone: Start: 08-31-2023 End: 08-31-[address] Pietro Turner Work Phone: [facility] Work Phone: Start: 08-23-2023 End: 08-23-[address] Pietro Turner Work Phone: [facility] Work Phone: Start: 03-30-2023 End: 03-30-[address] Pietro Turner Work Phone: [facility] Work Phone: Start: 03-30-2023 End: 03-30-[address] Pietro Turner Work Phone: [facility]-Laboratory Start: 03-07-2023 End: 03-07-[address] Pietro Turner Work Phone: [facility] Start: 03-05-2023 Non-patient / Non-visit Dr. Pietro Turner Work Phone: [facility] Start: 03-05-2023 End: 03-05-[address] Pietro Turner Work Phone: [facility] Work Phone: Start: 03-05-2023 End: 03-05-[address] Pietro Turner Work Phone: [facility]-Cardiovascular Services Start: 01-29-2023 End: 01-29-[address] Pietro Turner Work Phone: [facility] Start: 01-22-2023 End: 01-22-[address] Pietro Turner Work Phone: [facility]-Laboratory Start: 11-09-2022 End: 11-09-[address] Pietro Turner Work Phone: [facility] Start: 10-18-2022 End: 10-18-[address] Pietro Turner Work Phone: [facility] Work Phone: Start: 10-18-2022 End: 10-18-[address] Pietro Turner Work Phone: [facility] Start: 09-27-2022 End: 09-27-[address] Pietro Turner Work Phone: [facility] Work Phone: Start: 09-27-2022 End: 09-27-[address] [facility] Start: 07-29-2022 End: 07-30-2022 Emergency department patient visit Dr. Pietro Turner Work Phone: [facility]-Emergency Department Start: 07-19-2022 End: 07-19-[address] Pietro Turner Work Phone: [facility] Start: 06-07-2022 End: 06-07-[address] Pietro Turner Work Phone: [facility]-Physical Therapy Start: 05-29-2022 End: 05-29-[address] Pietro Turner Work Phone: [facility] Start: 05-22-2022 Non-patient / Non-visit Dr. Pietro Turner Work Phone: [facility] Start: 05-18-2022 End: 05-18-[address] Pietro Turner Work Phone: [facility] Start: 05-11-2022 End: 05-11-[address] Pietro Turner Work Phone: [facility] Start: 05-08-2022 End: 05-08-[address] Piet[facility] Turner [facility] Start: 05-02-2022 End: 05-02-[address] Pietro Turner Work Phone: [facility] Start: 04-24-2022 End: 04-24-[address] Piet[facility] Turner [facility] Start: 02-20-2022 Non-patient / Non-visit Dr. Pietro Turner Work Phone: [facility] Start: 02-20-2022 End: 02-20-[address] Pietro Turner [facility] Start: 02-16-2022 End: 02-16-[address] Piet[facility] Turner [facility] Start: 02-16-2022 End: 02-16-[address] Pietro Turner Work Phone: [facility] Start: 01-11-2022 End: 01-11-[address] Pietro Turner Work Phone: [facility]-Cardiovascular Services Start: 12-22-2021 End: 12-22-[address] Piet[facility] Turner [facility] Start: 11-28-2021 End: 11-28-[address] Pietro Turner Work Phone: [facility]-Pulmonary Medicine [facility] Start: 11-02-2021 End: 11-02-2021 Admission to same day surgery center Dr. Pietro Turner Work Phone: [facility]-Tunnel Elastic Operator Lockstitch/Special Procedures Start: 09-20-2021 End: 09-20-2021 Patient encounter procedure MAIKOL ALEGRE APRN-FINISHING SUPERVISOR PLASTIC SHEETS [facility] Start: 08-16-2021 End: 08-16-[address] JOCELYNE PHELPS MD [facility] Procedures Date Procedure Procedure Detail [...] Dr. Marck Orellana MD Comment on above: SKD-SGW-Mzat LAD w/ 3.5 x 28 mm Synergy [...] Activity Detail Author Start: 08-24-2025 End: 08-24-2025 -[facility] Work Phone: Start: 08-14-2025 End: 08-14-2025 -Laboratory Work Phone: Start: 08-10-2025 End: 08-10-2025 Evaluation of diagnostic study results [facility] Start: 06-17-2025 [facility] Start: 02-09-2025 Testosterone measurement [facility] Start: 11-14-2024 [facility] Start: 11-14-2024 [facility] Start: 11-07-2024 Patient discharge [facility] Start: 02-19-2024 [facility] Start: 09-25-2023 Patient referral [facility] Work Phone: Start: 05-11-2022 Patient referral [facility] Work Phone: CBC W Auto Different ial panel - Blood [facility] Work Phone: CBC W Auto Different ial panel - Blood [facility] Cobalamin (Vitamin B 12) [Mass/volume] in Serum or Plasma [facility] pital Colonoscopy [facility] Comprehensive metabo [facility] 1999 panel - Serum or Plasma [facility] Comprehensive [facility] 1999 panel - Serum or Plasma [facility] Creatinine [Mass/debra e] in 24 hour Urine [facility] Hemoglobin A1c/Hemog lobin.total in Blood [facility] Hemoglobin A1c/Hemog lobin.total in Blood [facility] Hemoglobin A1c/Hemog lobin.total in Blood [facility] Lipid 1995 panel - S miranda or Plasma [facility] Work Phone: Lipid 1995 panel - S miranda or Plasma [facility] Lipid 1995 panel - S miranda or Plasma [facility] Magnesium measurement [facility] Patient Education [facility] Work Phone: Patient referral [facility] Work Phone: Prostate specific an tigen measurement [facility] Work Phone: Prostate specific an tigen measurement [facility] Protein [Mass/time] in 24 hour Urine [facility] Serum testosterone measurement [facility] Serum testosterone measurement [facility] Serum testosterone measurement [facility] T4 free measurement [facility] Testosterone Free [M ass/volume] in Serum or Plasma [facility] Work Phone: Testosterone Free [M ass/volume] in Serum or Plasma [facility] Testosterone Free [M ass/volume] in Serum or Plasma [facility] Testosterone Free [M ass/volume] in Serum or Plasma [facility] Testosterone Free [M ass/volume] in Serum or Plasma [facility] Testosterone measurement [facility] Work Phone: Testosterone measurement [facility] Testosterone measurement [facility] Testosterone measurement [facility] Testosterone measurement [facility] Testosterone measurement [facility] Thyroid stimulating hormone measurement [facility] Work Phone: Thyroid stimulating hormone measurement [facility] Thyroid stimulating hormone measurement [facility] Triiodothyronine, fr ee measurement [facility] Urinalysis complete panel - Urine [facility] Vitamin D, 25-hydrox y [facility] Work Phone: [facility] Immunizations Immunization Date Immunization Notes Care Provider Fa cility 07-20-2023 Covid (Moderna) Dr. Pietro whittaker Work Phone: [facility] 07-16-2023 influenza, injectabl e, quadrivalent, preservative free Dr. Pietro Turner Work Phone: [facility] 02-03-2021 Covid (Pfizer) Dr. Pietro schmitt Work Phone: [facility] 01-13-2021 Covid (Pfizer) Dr. Pietro schmitt Work Phone: [facility] 08-02-2020 influenza, seasonal, injectable Dr. Pietro Turner Work Phone: [facility] 08-02-2020 influenza, injectabl e, quadrivalent, preservative free; Translations: [Fluarix PF Quadrivalent ] DR JOCELYNE PHELPS MD [facility] 09-03-2019 influenza, injectabl e, quadrivalent, preservative free; Translations: [Fluarix PF Quadrivalent ] DR JOCELYNE PHELPS MD [facility] 06-23-2013 pneumococcal polysaccharide vaccine, [address] Pietro Turner Work Phone: [facility] Payers Date Payer Category Payer Unknown [id number] 2024 Unknown [id number] 2024 Unknown [id number] 2024 Self-pay [id number] 2024 Private Health Insurance [facility] [id number] 2021 Medicare [id number] Medicare [id number] Unknown [facility] [id number] Unknown [id number] 2.16.8 [id number] Unknown [id number] 2.16.8 40.1.495373.3.579.2.462 Unknown [id number] 2.16.8 40.1.485954.3.579.2.462 Unknown [id number] 2.16.8 40.1.143582.3.579.2.462 Unknown [id number] 2.16.8 40.1.381589.3.579.2.462 Unknown [id number] 2.16.8 40.1.568034.3.579.2.462 Unknown [id number] 2.16.8 40.1.202473.3.579.2.462 Unknown [id number] 2.16.8 40.1.431067.3.579.2.462 Unknown [id number] 2.16.8 40.1.866738.3.579.2.462 Unknown [id number] 2.16.8 40.1.954860.3.579.2.462 Unknown [id number] 2.16.8 40.1.473849.3.579.2.462 Unknown [id number] 2.16.8 40.1.527738.3.579.2.462 Unknown [id number] 2.16.8 40.1.257010.3.579.2.462 Unknown [id number] 2.16.8 40.1.546707.3.579.2.462 Unknown [id number] 2.16.8 40.1.271389.3.579.2.462 Unknown [id number] 2.16.8 40.1.775132.3.579.2.462 Unknown [id number] 2.16.8 40.1.457533.3.579.2.462 Unknown [id number] 2.16.8 40.1.811552.3.579.2.462 Unknown [id number] 2.16.8 40.1.953041.3.579.2.462 Unknown [id number] 2.16.8 40.1.481078.3.579.2.462 Unknown [id number] 2.16.8 40.1.689033.3.579.2.462 Unknown [id number] 2.16.8 40.1.109206.3.579.2.462 Unknown [id number] 2.16.8 40.1.985512.3.579.2.462 Unknown [id number] 2.16.8 40.1.727499.3.579.2.462 Unknown [id number] 2.16.8 40.1.930840.3.579.2.462 Unknown [id number] 2.16.8 40.1.999807.3.579.2.462 Unknown [id number] 2.16.8 40.1.239898.3.579.2.462 Unknown [id number] 2.16.8 40.1.242860.3.579.2.462 Unknown [id number] 2.16.8 40.1.822914.3.579.2.462 Unknown [id number] 2.16.8 40.1.934836.3.579.2.462 Unknown [id number] 2.16.8 40.1.459223.3.579.2.462 Social History Date Type Detail Facility Start: 12-24-2019 Never smoked t sariah (finding) [facility] Comment on above: no smoke exposure Start: 1960 Sex Assigned At Male A [facility] Start: 02-16-2022 End: 02-19-2024 Tobacco smoking status NHIS Unknown if ever smoked [facility] Start: 11-19-2020 None [facility] Start: 09-14-2020 Alone [facility] Start: 12-08-2020 Cigarettes [facility] Start: 12-04-2024 End: 04-27-2025 Tobacco smoking status NHIS Ex-smoker (finding) [facility] Start: 02-05-2025 End: 02-12-2025 Sex Male (finding) [facility] Sex [facility] Medical Equipment Procedure Code Equipment Code Equipment Original Text Equipment Identifier Dates Total cholecystectomy with exploration of common bile duct ()[id number] [facility] Start: 06-03-2024 Needle (Disp) 18 G (Bd Regular Bevel [place]) 18 gauge x 1 needle Start: 05-22-2022 Syringe With Needle, Safety (Monoject Safety Syringes) 3 mL 23 gauge x 1 syringe Start: 05-22-2022 Needle (Disp) 18 G (Bd Regular Bevel [place]) 18 gauge x 1 needle Start: 05-22-2022 End: 05-22-2022 Syringe With Needle, Safety (Monoject Safety Syringes) 3 mL 23 gauge x 1 syringe Start: 05-22-2022 End: 05-22-2022 Needle (Disp) 18 G (Bd Regular Bevel [place]) 18 gauge x 1 needle Start: 05-22-2022 Syringe With Needle, Safety (Monoject Safety Syringes) 3 mL 23 gauge x 1 syringe Start: 05-22-2022 Needle (Disp) 18 G (Bd Regular Bevel [place]) 18 gauge x 1 needle Start: 05-22-2022 End: 05-22-2022 Syringe With Needle, Safety (Monoject Safety Syringes) 3 mL 23 gauge x 1 syringe Start: 05-22-2022 End: 05-22-2022 Needle (Disp) 18 G (Bd Regular Bevel [place]) 18 gauge x 1 needle Start: 05-22-2022 Syringe With Needle, Safety (Monoject Safety Syringes) 3 mL 23 gauge x 1 syringe Start: 05-22-2022 Needle (Disp) 18 G (Bd Regular Bevel [place]) 18 gauge x 1 needle Start: 05-22-2022 End: 05-22-2022 Syringe With Needle, Safety (Monoject Safety Syringes) 3 mL 23 gauge x 1 syringe Start: 05-22-2022 End: 05-22-2022 Needle (Disp) 18 G (Bd Regular Bevel [place]) 18 gauge x 1 needle Start: 05-22-2022 Syringe With Needle, Safety (Monoject Safety Syringes) 3 mL 23 gauge x 1 syringe Start: 05-22-2022 Needle (Disp) 18 G (Bd Regular Bevel [place]) 18 gauge x 1 needle Start: 05-22-2022 End: 05-22-2022 Syringe With Needle, Safety (Monoject Safety Syringes) 3 mL 23 gauge x 1 syringe Start: 05-22-2022 End: 05-22-2022 Needle (Disp) 18 G (Bd Regular Bevel [place]) 18 gauge x 1 needle Start: 05-22-2022 Syringe With Needle, Safety (Monoject Safety Syringes) 3 mL 23 gauge x 1 syringe Start: 01-31-2023 Needle (Disp) 18 G (Bd Regular Bevel [place]) 18 gauge x 1 needle Start: 05-22-2022 End: 05-22-2022 Syringe With Needle, Safety (Monoject Safety Syringes) 3 mL 23 gauge x 1 syringe Start: 05-22-2022 End: 05-22-2022 Syringe With Needle, Safety (Monoject Safety Syringes) 3 mL 23 gauge x 1 syringe Start: 05-22-2022 End: 01-31-2023 Needle (Disp) 18 G (Bd Regular Bevel [place]) 18 gauge x 1 needle Start: 05-22-2022 Syringe With Needle, Safety (Monoject Safety Syringes) 3 mL 23 gauge x 1 syringe Start: 01-31-2023 Needle (Disp) 18 G (Bd Regular Bevel [place]) 18 gauge x 1 needle Start: 05-22-2022 End: 05-22-2022 Syringe With Needle, Safety (Monoject Safety Syringes) 3 mL 23 gauge x 1 syringe Start: 05-22-2022 End: 05-22-2022 Syringe With Needle, Safety (Monoject Safety Syringes) 3 mL 23 gauge x 1 syringe Start: 05-22-2022 End: 01-31-2023 Needle (Disp) 18 G (Bd Regular Bevel [place]) 18 gauge x 1 needle Start: 05-22-2022 Syringe With Needle, Safety (Monoject Safety Syringes) 3 mL 23 gauge x 1 syringe Start: 01-31-2023 Needle (Disp) 18 G (Bd Regular Bevel [place]) 18 gauge x 1 needle Start: 05-22-2022 End: 05-22-2022 Syringe With Needle, Safety (Monoject Safety Syringes) 3 mL 23 gauge x 1 syringe Start: 05-22-2022 End: 05-22-2022 Syringe With Needle, Safety (Monoject Safety Syringes) 3 mL 23 gauge x 1 syringe Start: 05-22-2022 End: 01-31-2023 Needle (Disp) 18 G (Bd Regular Bevel [place]) 18 gauge x 1 needle Start: 05-22-2022 Syringe With Needle, Safety (Monoject Safety Syringes) 3 mL 23 gauge x 1 syringe Start: 01-31-2023 Needle (Disp) 18 G (Bd Regular Bevel [place]) 18 gauge x 1 needle Start: 05-22-2022 End: 05-22-2022 Syringe With Needle, Safety (Monoject Safety Syringes) 3 mL 23 gauge x 1 syringe Start: 05-22-2022 End: 05-22-2022 Syringe With Needle, Safety (Monoject Safety Syringes) 3 mL 23 gauge x 1 syringe Start: 05-22-2022 End: 01-31-2023 Needle (Disp) 18 G (Bd Regular Bevel [place]) 18 gauge x 1 needle Start: 05-22-2022 Syringe With Needle, Safety (Monoject Safety Syringes) 3 mL 23 gauge x 1 syringe Start: 01-31-2023 Needle (Disp) 18 G (Bd Regular Bevel [place]) 18 gauge x 1 needle Start: 05-22-2022 End: 05-22-2022 Syringe With Needle, Safety (Monoject Safety Syringes) 3 mL 23 gauge x 1 syringe Start: 05-22-2022 End: 05-22-2022 Syringe With Needle, Safety (Monoject Safety Syringes) 3 mL 23 gauge x 1 syringe Start: 05-22-2022 End: 01-31-2023 Needle (Disp) 18 G (Bd Regular Bevel [place]) 18 gauge x 1 needle Start: 05-22-2022 Syringe With Needle, Safety (Monoject Safety Syringes) 3 mL 23 gauge x 1 syringe Start: 01-28-2024 Needle (Disp) 18 G (Bd Regular Bevel [place]) 18 gauge x 1 needle Start: 05-22-2022 [...] Needle (Disp) 18 G (Bd Regular Bevel [place]) 18 gauge x 1 needle Start: 05-22-2022 Syringe With Needle, Safety 3 mL 25 gauge x 1 syringe Start: 05-13-2024 Needle (Disp) 18 G (Bd Regular Bevel [place]) 18 gauge x 1 needle Start: 05-22-2022 [...] Needle (Disp) 18 G (Bd Regular Bevel [place]) 18 gauge x 1 needle Start: 05-22-2022 Syringe With Needle, Safety 3 mL 25 gauge x 1 syringe Start: 05-13-2024 Needle (Disp) 18 G (Bd Regular Bevel [place]) 18 gauge x 1 needle Start: 05-22-2022 [...] Needle (Disp) 18 G (Bd Regular Bevel [place]) 18 gauge x 1 needle Start: 05-22-2022 Syringe With Needle, Safety 3 mL 25 gauge x 1 syringe Start: 05-13-2024 Needle (Disp) 18 G (Bd Regular [place]vel [place]) 18 gauge x 1 needle Start: 05-22-2022 [...] Needle (Disp) 18 G (Bd Regular Bevel [place]) 18 gauge x 1 needle Start: 05-22-2022 Syringe With Needle, Safety 3 mL 25 gauge x 1 syringe Start: 05-13-2024 Needle (Disp) 18 G (Bd Regular Bevel [place]) 18 gauge x 1 needle Start: 05-22-2022 [...] Needle (Disp) 18 G (Bd Regular Bevel [place]) 18 gauge x 1 needle Start: 05-22-2022 Syringe With Needle, Safety 3 mL 25 gauge x 1 syringe Start: 05-13-2024 Needle (Disp) 18 G (Bd Regular [place]vel [place]) 18 gauge x 1 needle Start: 05-22-2022 [...] Needle (Disp) 18 G (Bd Regular [place]vel [place]) 18 gauge x 1 needle Start: 05-22-2022 Syringe With Needle, Safety 3 mL 25 gauge x 1 syringe Start: 05-13-2024 Needle (Disp) 18 G (Bd Regular [place]vel [place]) 18 gauge x 1 needle Start: 05-22-2022 [...] Needle (Disp) 18 G (Bd Regular Bevel [place]) 18 gauge x 1 needle Start: 05-22-2022 Syringe With Needle, Safety 3 mL 25 gauge x 1 syringe Start: 05-13-2024 Needle (Disp) 18 G (Bd Regular [place]vel [place]) 18 gauge x 1 needle Start: 05-22-2022 [...] Needle (Disp) 18 G (Bd Regular Bevel [place]) 18 gauge x 1 needle Start: 05-22-2022 Syringe With Needle, Safety 3 mL 25 gauge x 1 syringe Start: 05-13-2024 Needle (Disp) 18 G (Bd Regular Bevel [place]) 18 gauge x 1 needle Start: 05-22-2022 [...] Assessment Result Facility 11-14-2024 Cognitive function Voice/Name [facility] Work Phone: 11-07-2024 Cognitive function Voice/Name;Touch/Urielki benito [facility] Work Phone: 02-19-2024 Cognitive function Voice/Name [facility] Work Phone: Clinical Notes 07-26-2020 to 08-10-2025 Note Date & Type Note Facility 08-10-2025 Progress note Note Date/Time August 10, 2025 2:09pm [facility] [address] [place] [address] OFFICE VISIT Date of Service: 08/10/25 MR#: [id number] Acct: [id number] Name: ALIX LEE Rep #: [id number] : 1960 Provider: MICHELLE Dickey Age/Sex: 65/M Location: [facility] Status: Signed HPI HPI History of [...] room air Intake Visit Reasons: 9 M Unionmelt Operator Required: No Is patient in pain?: No Allergies Penicillins (PCN) Allergy (Verified 08/10/25 13:38) Other Znzmair-TKI-IwS Reductase Inhibitor Adverse Reaction (Intermediate, Verified 08/10/25 13:38) myalgias lisinopril Adverse Reaction (Verified 08/10/25 13:38) cough spironolactone Adverse Reaction (Verified 08/10/25 13:38) elevated blood sugar Medications ?Medication ?Instructions ?Recorded ?Confirmed ?Type needle (disp) 18 G 18 gauge x 1 #100 ea 05/22/22/ Rx (BD Regular Bevel [place]) flash glucose scanning reader #1 ea 02/05/24 07/28/25 Rx (FreeStyle Jean 2 [place]) cholecalciferol (vitamin D3) 125 5,000 unit PO [...] year?: No Nurse's Note: refused ekg today [facility] Medical History (Updated 07/28/25 @ 11:31 by [...] pulmonary arterial hypertension Atherosclerotic heart disease of [place] coronary artery with other forms of angina [...] ejection fraction is 55 %. Echocardiogram 12/29/2020 ([facility]) Summary 1. Left ventricle: The cavity [...] coronary artery stent placement: Status: Acute Comment: [id number] LAD w/ 3.5 x 28 mm Synergy [...] updated, as necessary. 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 Pietro Turner MD ~ [facility] Work Phone: 1(153) 356-679409-30-2025 Progress note Author Pietro Turner [facility] Note Date/Time July 28, 2025 11:00am [facility] [address] [place] [address] OFFICE VISIT Date of Service: 07/28/25 MR#: [id number] Acct: [id number] Name: ALIX LEE Rep #: [id number] : 1960 Provider: Dr. Carmen Turner MD Age/Sex: 65/M Location: [facility] [place] Status: Signed Intake Vital Signs 06/17/25 [...] room air Intake Visit Reasons: Persistent Cough Unionmelt Operator Required: No Accompanied by: Self Is patient in pain?: No Allergies Penicillins (PCN) Allergy (Verified 07/28/25 10:37) Other Nswdwor-FYK-PlS Reductase Inhibitor Adverse Reaction (Intermediate, Verified 07/28/25 10:37) myalgias lisinopril Adverse Reaction (Verified 07/28/25 10:37) cough spironolactone Adverse Reaction (Verified 07/28/25 10:37) elevated blood sugar Medications ?Medication ?Instructions ?Recorded ?Confirmed ?Type needle (disp) 18 G 18 gauge x 1 #100 ea 05/22/2207/01 Rx (BD Regular Bevel [place]) flash glucose scanning reader #1 ea 02/05/24 07/28/25 Rx (FreeStyle Jean 2 [place]) cholecalciferol (vitamin D3) 125 5,000 unit PO [...] pulmonary arterial hypertension Atherosclerotic heart disease of [place] coronary artery with other forms of angina [...] dry cough R05.3 Atherosclerotic heart disease of [place] coronary artery with other forms of angina pectoris 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 [place], [place] [address] OFFICE VISIT Date of Service: 07/28/25 MR#: [id number] Acct: [id number] Name: ALIX LEE Rep #: [id number] : 1960 Provider: Dr. Carmen Turner MD Age/Sex: 65/M Location: [facility] [place] Status: Signed Intake Vital Signs 06/17/25 [...] room air Intake Visit Reasons: Persistent Cough Unionmelt Operator Required: No Accompanied by: Self Is patient in pain?: No Allergies Penicillins (PCN) Allergy (Verified 07/28/25 10:37) Other Jbutlwx-CPN-AkU Reductase Inhibitor Adverse Reaction (Intermediate, Verified 07/28/25 10:37) myalgias lisinopril Adverse Reaction (Verified 07/28/25 10:37) cough spironolactone Adverse Reaction (Verified 07/28/25 10:37) elevated blood sugar Medications ?Medication ?Instructions ?Recorded ?Confirmed ?Type needle (disp) 18 G 18 gauge x 1 #100 ea 05/22/2207/01 Rx (BD Regular Bevel [place]) flash glucose scanning reader #1 ea 02/05/24 07/28/25 Rx (FreeStyle Jean 2 [place]) cholecalciferol (vitamin D3) 125 5,000 unit PO [...] pulmonary arterial hypertension Atherosclerotic heart disease of [place] coronary artery with other forms of angina [...] dry cough R05.3 Atherosclerotic heart disease of [place] coronary artery with other forms of angina pectoris I25.118 Essential hypertension I10 Time Spent (min) 30 Assessment and Plan Assessment and Plan (1) Persistent dry cough: Status: Acute (2) Atherosclerotic heart disease of [place] coronary artery with other forms of angina [...] Garsia Signature: Date (if applicable) CC: ~ [facility]07-17-2025 NoteHNO ID: [id number] Author: DIOGENES SHERMAN 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 Author Type: Nurse Practitioner Type: Progress Notes Filed: 05/14/2025 16:01 Note Text: [facility] NEW PATIENT HISTORY [...] and priapism. Advised patient to consult with animal biologist regarding discontinuation of isosorbide before initiating PDE5 inhibitors. Alternative treatments discussed include vacuum erection devices and intracavernosal injections. Patient to follow up with animal biologist and notify us once cleared to discontinue [...] does not take chances due to past PA. - Recent blood pressure reading was 164/92 [...] SURECLICK) Inject 140 mg (more content not included)...[facility]06-30-2025 Evaluation note * Diagnosis Onset Date Resolution Status Admit Date Acute bronchitis acute March 10:28am Atherosclerotic heart diseas e of [place] coronary artery with other forms of acute April 27, 2025 10:28am Erectile dysfunction acute April 27, 2025 10:28am Essential hypertension acute 2024 10:28am Hyperlipemia chronic April 27, 025 10:28am Type 2 diabetes mellitus chronic April 27, 2025 10:28am [facility] Work Phone: 1(534) 449-594706-30-2025 Evaluation note* Diagnosis Onset Date Resolution Status Admit Date Acute bronchitis acute March 10:28am Atherosclerotic heart diseas e of [place] coronary artery with other forms of acute April 27, 2025 10:28am Erectile dysfunction acute April 27, 2025 10:28am Essential hypertension acute 2024 10:28am Hyperlipemia chronic April 27, 025 10:28am Type 2 diabetes mellitus chronic April 27, 2025 10:28am Atherosclerotic heart diseas e of [place] coronary artery with other forms of acute May 18, 2025 11:38am Concern about urinary tract disease without diagnosis acute April 292024 11:38am Erectile dysfunction acute May 18, 2025 11:38am Essential hypertension acute 2024 11:38am Hypogonadism in male acute May 18, 2025 11:38am Type 2 diabetes mellitus chronic May 18, 2025 11:38am [facility] Work Phone: 1([phone]) 951-263306-30-2025 Evaluation note* Diagnosis Onset Date Resolution Status Admit Date Acute bronchitis acute March 10:28am Atherosclerotic heart diseas e of [place] coronary artery with other forms of acute April 27, 2025 10:28am Erectile dysfunction acute April 27, 2025 10:28am Essential hypertension acute Ju 2024 10:28am Hyperlipemia chronic April 27 025 10:28am Type 2 diabetes mellitus chronic April 27, 2025 10:28am Atherosclerotic heart diseas e of [place] coronary artery with other forms of acute May 18, 2025 11:38am Concern about urinary tract disease without diagnosis acute April 292024 11:38am Erectile dysfunction acute May 18, 2025 11:38am Essential hypertension acute Ju ly 2024 11:38am Hypogonadism in male acute May 18, 2025 11:38am Type 2 diabetes mellitus chronic May 18, 2025 11:38am Discomfort of right hip acute A ugust 2024 3:02pm [facility] [employer] Work Phone: 1([phone]) 204-365406-30-2025 Evaluation note* Diagnosis Onset Date Resolution Status Admit Date Acute bronchitis acute March 10:28am Atherosclerotic heart diseas e of [place] coronary artery with other forms of acute April 27, 2025 10:28am Erectile dysfunction acute April 27, 2025 10:28am Essential hypertension acute Ju 2024 10:28am Hyperlipemia chronic April 27 10:28am Type 2 diabetes mellitus chronic April 27, 2025 10:28am Atherosclerotic heart diseas e of [place] coronary artery with other forms of acute May 18, 2025 11:38am Concern about urinary tract disease without diagnosis acute April 292024 11:38am Erectile dysfunction acute May 18, 2025 11:38am Essential hypertension acute Ju ly 2024 11:38am Hypogonadism in male acute May 18, 2025 11:38am Type 2 diabetes mellitus chronic May 18, 2025 11:38am Atherosclerotic heart diseas e of [place] coronary artery with other forms of acute June 17 3:02pm Discomfort of right hip acute A ugust 2024 3:02pm Essential hypertension acute Au adore 2024 3:02pm Impacted cerumen of both ears acute June 17, 2025 3:02pm Type 2 diabetes mellitus chronic June 17, 2025 3:02pm Proteinuria noneactive June 17, 2025 3:02pm [facility] Work Phone: 1(520) 726-855806-30-2025 Evaluation note* Diagnosis Onset Date Resolution Status Admit Date Acute bronchitis acute March 10:28am Atherosclerotic heart diseas e of [place] coronary artery with other forms of acute April 27 10:28am Erectile dysfunction acute April 27, 2025 10:28am Essential hypertension acute Ju 2024 10:28am Hyperlipemia chronic April 27 10:28am Type 2 diabetes mellitus chronic April 27, 2025 10:28am Atherosclerotic heart diseas e of [place] coronary artery with other forms of acute May 18 11:38am Concern about urinary tract disease without diagnosis acute April 292024 11:38am Erectile dysfunction acute May 18, 2025 11:38am Essential hypertension acute Ju 2024 11:38am Hypogonadism in male acute May 18, 2025 11:38am Type 2 diabetes mellitus chronic May 18, 2025 11:38am Atherosclerotic heart diseas e of [place] coronary artery with other forms of acute June 17, 2025 3:02pm Discomfort of right hip acute A ugust 2024 3:02pm Essential hypertension acute Au adore 2024 3:02pm Impacted cerumen of both ears acute June 17, 2025 3:02pm Type 2 diabetes mellitus chronic June 17, 2025 3:02pm Proteinuria noneactive June 17, 2025 3:02pm Atherosclerotic heart diseas e of [place] coronary artery with other forms of acute July 282024 10:31am Essential hypertension acute Se ptember 2024 10:31am Persistent dry cough acute Sept ember 2024 10:31am [facility] Work Phone: [phone]) [phone] Evaluation note* Diagnosis Onset Date Resolution Status Admit Date Acute bronchitis acute March 10:28am Atherosclerotic heart disease of [place] coronary artery with other forms of acute April 27, 2025 10:28am Erectile dysfunction acute April 27, 2025 10:28am Essential hypertension acute Ju ne 2024 10:28am Hyperlipemia chronic April 27 10:28am Type 2 diabetes mellitus chronic April 27, 2025 10:28am Atherosclerotic heart disease of [place] coronary artery with other forms of acute May 18, 2025 11:38am Concern about urinary tract disease without diagnosis acute May 18, 2025 11:38am Erectile dysfunction acute May 18, 2025 11:38am Essential hypertension acute Ju ly 2024 11:38am Hypogonadism in male acute May 18, 2025 11:38am Type 2 diabetes mellitus chronic May 18, 2025 11:38am Atherosclerotic heart disease of [place] coronary artery with other forms of acute June 17 3:02pm Discomfort of right hip acute A ugust 2024 3:02pm Essential hypertension acute Au [place]ore 2024 3:02pm Impacted cerumen of both ears acute June 17 3:02pm Type 2 diabetes mellitus chronic June 17, 2025 3:02pm Proteinuria noneactive June 17, 2025 3:02pm Atherosclerotic heart disease of [place] coronary artery with other forms of acute [...] lower leg acute Octobe r 2024 1:36pm [facility] Work Phone: 1([phone]) 659-110503-06-2025 Evaluation note* Diagnosis Onset Date Resolution Status Admit Date Atherosclerotic heart diseas e of [place] coronary artery with other forms of acute January 01, 2025 4:05pm Erectile dysfunction acute Klaus h 2024 4:05pm Low testosterone in male acute January 01, 2025 4:05pm Hyperlipemia chronic January 01, 2 025 4:05pm Schizoaffective disorder chronic January 01, 2025 4:05pm Type 2 diabetes mellitus chronic January 01, 2025 4:05pm Atherosclerotic heart diseas e of [place] coronary artery with other forms of acute April 27, 2025 10:28am Essential hypertension acute Ju ne 2024 10:28am Hyperlipemia chronic April 27, 2 025 10:28am Type 2 diabetes mellitus chronic April 27, 2025 10:28am [facility] Work Phone: 1(235) 596-349901-10-2025 [facility] Medical Records Department [address] [place] [address] History Physical Exam 11/07/24 0655 MR#: [id number] Acct: [id number] Name: ALIX LEE Rep #: [id number] : 1960 64 From: Dimitry Camp MD PCP: Dr. Pietro Turner MD Status:[facility] Location: [place] [address] History and Physical Date of Admission: 11/07/24 [...] ea 05/22/22 10/14/24 Rx (BD Regular Bevel [place]) nitroglycerin 0.4 mg sublingual 0.4 mg sublingual Q5-15M PRN chest 01/11/24 10/14/24 Rx tablet (Nitrostat) pain #25 tabs atorvastatin 40 mg tablet 40 mg PO QHS 90 days #90 tabs 01/14/24 10/14/24 Rx flash glucose scanning reader #1 ea 02/05/24 10/14/24 Rx (FreeStyle Jean 2 [place]) flash glucose sensor (FreeStyle #1 ea 02/05/24 [...] pulmonary arterial hypertension Atherosclerotic heart disease of [place] coronary artery with other forms of angina [...] finger Family History (Reviewed (more content not included)...[facility]12-19-2024 Evaluation note* Diagnosis Onset Date Resolution Status Admit Date [facility] elbow tend[facility] 3:39[facility] Right elbow tendinitis acute [facility] 2024 2:55pm Essential hypertension acute Y[facility] 2024 2:51pm History of coronary artery stent placement July 26, 2020 acute October 2:51pm Hyperlipemia chronic October 2:51pm Type 2 diabetes mellitus chronic November 25, 2024 2:51pm Atherosclerotic heart disease of [place] coronary artery with other forms of acute January 01, 2025 4:05pm Erectile dysfunction acute Klaus h 2024 4:05pm Low testosterone in male acute January 01, 2025 4:05pm Hyperlipemia chronic January 01, 2 025 4:05pm Schizoaffective disorder chronic January 01, 2025 4:05pm Type 2 diabetes mellitus chronic January 01, 2025 4:05pm [facility] Work Phone: 1(311) 498-705212-17-2024 Evaluation note* Diagnosis Onset Date Resolution Status Admit Date Colon cancer screening acute 2023 1:29pm Right elbow tendinitis acute [facility]23 3:39pm Right elbow tendinitis acute [facility] 2024 2:55pm Essential hypertension acute [facility] 2024 2:51pm History of coronary artery stent placement July 26, 2020 acute October 2:51pm Hyperlipemia chronic October 2:51pm Type 2 diabetes mellitus chronic November 25, 2024 2:51pm Atherosclerotic heart disease of [place] coronary artery with other forms of acute January 01, 2025 4:05pm Erectile dysfunction acute Klaus 2024 4:05pm Low testosterone in male acute January 01, 2025 4:05pm Hyperlipemia chronic January 01, 025 4:05pm Schizoaffective disorder chronic January 01, 2025 4:05pm Type 2 diabetes mellitus chronic January 01, 2025 4:05pm [facility] Work Phone: 1(873) 716-387212-08-2023 NoteHNO ID: [id number] 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 Author Type: Nurse Practitioner Type: [...] exposed to COVID 2 days ago at [employer]. He has not had a fever. He [...] results from lab work dated: 09/24/2023 from [facility]. eGFR: 69 BUN: 23 Creatinine: 1.15 [...] Discussed expected course of illness Melissa Milan APRN.[facility]08-10-2022 NoteHNO ID: [id number] Author: Gabriela Calzada PSYD Service: ? Author [...] part in visit: patient and psychologist via [employer] zoom. Consent for this visit received from [...] part in visit: patient and psychologist via [employer] zoom. Consent for this visit received from [...] 1015 1015 3 11.1 10.6 0 0000 11457 5 2 15 1100 1100 4 11.0 [...] delayed phase Schizoaffective Disorder PROGRESS TO DATE: Fpc Progress: Progress Short Term Condition: (more content not included)...[id number] NoteHNO ID: [id number] Author: Gabriela Calzdaa PSYD Service: ? Author Type: Psychologist Type: Progress Notes Filed: 05/16/2022 4:39 PM Note Text: [facility] Virtual Group May 16, 2022 Time: 3-4pm [id number]: Virtual Group Psychotherapy The [facility] virtual group [...] avoid exercise after 10pm Gabriela Calzada PSYD PsychologistHeywood [id number] Evaluation + Plan note Future Scheduled Tests Laboratory* Basic Metabolic Panel 08/29/21 * Basic Metabolic Panel 09/26/21 * Basic Metabolic Panel 10/24/21 * Basic Metabolic Panel 11/21/21 * Complete Blood Count 11/20/21 * Complete Blood Count 01/06/21 * Lipid Profile 11/20/21 * Lipid Profile 01/06/21 * Complete Metabolic Panel 11/20/21 * Complete Metabolic Panel 01/06/21 [facility] 03-11-2021 Evaluation + Plan note Future Scheduled Tests Laboratory* Basic Metabolic Panel 08/29/21 * Basic Metabolic Panel 09/26/21 * Basic Metabolic Panel 10/24/21 * Basic Metabolic Panel 11/21/21 * Complete Blood Count 11/20/21 * Complete Blood Count 01/06/21 * Lipid Profile 11/20/21 * Lipid Profile 01/06/21 * Complete Metabolic Panel 11/20/21 * Complete Metabolic Panel 01/06/21 [facility] 09-28-2020 Evaluation note* Diagnosis Onset Date Resolution Status Bloating noneactive Labadie stool noneactive Constipation noneactive Essential hypertension acute History of coronary artery stent placement June 302019 acute Hyperlipemia [facility] Work Phone: 1([phone]) 957-534509-28-2020 Evaluation note* Diagnosis Onset Date Resolution Status Bloating noneactive Labadie stool noneactive Constipation noneactive Essential hypertension acute [...] te Hyperlipemia chronic Hypogonadism in male acute [facility] Work Phone: 1([phone]) 680-899009-28-2020 Evaluation note* Diagnosis Onset Date Resolution Status [...] chronic Hyperlipemia chronic Schizoaffective disorder chr onic [facility] Work Phone: 1([phone]) 226-637809-28-2020 Evaluation note* Diagnosis Onset Date Resolution Status Essential hypertension acute History of coronary artery stent placement June 302019 acute Hyperlipemia chronic Essential hypertension acute History of coronary artery stent placement June 302019 acute Hyperlipemia chronic [id number] acute Essential hypertension acute Hypogonadism in male acute Impacted cerumen of both ears acute Obesity acute Type 2 diabetes mellitus acu te Hyperlipemia [facility] Work Phone: [phone]) 755-482809-28-2020 Evaluation note* Diagnosis Onset Date Resolution Status Essential hypertension acute History of coronary artery stent placement June 302019 acute Hyperlipemia chronic [id number] acute Essential hypertension acute Hypogonadism in male acute Impacted cerumen of both ears acute Obesity acute Type 2 diabetes mellitus acu te Hyperlipemia [facility] Work Phone: 1(421) 655-757809-28-2020 Evaluation note* Diagnosis Onset Date Resolution Status [...] Type 2 diabetes mellitus acu te Hyperlipemia [facility] Work Phone: [phone]) [phone] Evaluation note* Diagnosis Onset Date Resolution Status Essential hypertension acute History of coronary artery stent placement June 302019 acute Type 2 diabetes mellitus acu te Hyperlipemia chronic Dyshidrotic hand dermatitis acute Chest pain acute Dyshidrotic hand dermatitis acute Essential hypertension acute Frontal headache acute Type 2 diabetes mellitus acu te GERD (gastroesophageal reflux disease) chronic Hyperlipemia [facility] Work Phone: Evaluation note* Diagnosis Onset Date Resolution Status Fatigue acute [facility] Work Phone: Evaluation note* Diagnosis Onset Date Resolution Status Fatigue acute Hypogonadism in male acute Obesity acute Type 2 diabetes mellitus acu te GERD (gastroesophageal reflux disease) chronic Hyperlipemia chronic Schizoaffective disorder chr onic [facility] Work Phone: Evaluation note* Diagnosis Onset Date Resolution Status Fatigue acute Hypogonadism in male acute Obesity acute Type 2 diabetes mellitus acu te GERD (gastroesophageal reflux disease) chronic Hyperlipemia chronic Schizoaffective disorder chr onic Hypogonadism in male acute Type 2 diabetes mellitus acu te [facility] Work Phone: Evaluation note* Diagnosis Onset Date Resolution Status Dyshidrotic hand dermatitis acute Chest pain acute Dyshidrotic hand dermatitis acute Essential hypertension acute Frontal headache acute Type 2 diabetes mellitus acu te GERD (gastroesophageal reflux disease) chronic Hyperlipemia [facility] Work Phone: Hospital course Narrative No data available for this section [facility] Hospital Discharge instructions No data available for this section [facility] Hospital Discharge instructions Additional Instructions As discussed, you can use Voltaren cream [id number] topically for anti- inflammatory effects.[facility] Work Phone: Hospital Discharge instructionsAmbulatory Orders* Nutrition Referral Location: None Selected [facility] Work Phone: Hospital Discharge instructions Additional [...] have any further concerns or [facility] of [facility]: Reason for referral (narrative)No reason for referral information availableWOhioHealth [facility] Work Phone: Summary Purpose Family History [...] No November 02 2 7:57am Power of Sole Conforming Machine Operator No November 02 7:57am Advance Directive Response Recorded Date/ Time Advance Directives No November 02, 2021 7:57am Living Will No July 29 2 11:20pm Power of Sole Conforming Machine Operator No July 29 11:20pm Advance Directive Response Recorded Date/ Time Advance Directives No November 02, 2021 6:57am Living Will No July 29 2 10:20pm Power of Sole Conforming Machine Operator No July 29 10:20pm Advance Directive Response Recorded Date/ Time Advance Directives No March 07 1:32pm Living Will No March 07, 2023 1 :32pm Power of Sole Conforming Machine Operator No March 07, 2023 1:32pm Advance Directive Response Recorded Date/ Time Advance Directives No March 07 12:32pm Living Will No March 07, 2023 1 2:32pm Power of Sole Conforming Machine Operator No March 07, 2023 12:32pm Advance Directive Response Recorded Date/ Time Advance Directives No January 01 4:46pm Living Will No January 02, 2024 4:46pm Power of Sole Conforming Machine Operator No January 01 4:46pm Advance Directive Response Recorded Date/ Time Advance Directives No January 01 4:46pm Living Will No February 19, 2024 2:27am Power of Sole Conforming Machine Operator No February 18 2:27am Advance Directive Response Recorded Date/ Time Living Will No March 07, 2023 1 :32pm Do you have a Healthcare Power of Sole Conforming Machine Operator? No March 07, 2023 1:32pm Living Will Yes November 06 10:54am Do you have a Healthcare Power of Sole Conforming Machine Operator? Yes November 06, 2024 10:54am Name of Medical Power of Sole Conforming Machine Operator MARISSA-ARTEM November 06, 2024 10:54am Living Will Yes November 14 7:48pm Do you have a Healthcare Power of Sole Conforming Machine Operator? Yes November 14, 2024 7:48pm Name of Medical Power of Sole Conforming Machine Operator Julio Lee November 14, 2024 7:48pm Advance [...] FU ARM PAIN Reason for Visit Bloating [place] stool Constipation Essential hypertension History of coronary artery stent placement Hyperlipemia Chief Complaint Intestine issues Amb Documentation E ORDER 6 M FU ARM PAIN FOLLOW UP Amb Documentation Testosterone injection educ. RT SHOULDER PAIN/RX HERE Reason for Visit Bloating [place]ad[place] stool Constipation Essential hypertension History of coronary [...] History of coronary artery stent placement Hyperlipemia [id number] Essential hypertension Hypogonadism in male Impacted cerumen of both ears Obesity Type 2 diabetes mellitus Hyperlipemia Chief Complaint E ORDERS 3 M FU CHEST PAIN CHEST PAIN Wax Build-Up Reason for Visit Essential hypertensi on History of coronary artery stent placement Hyperlipemia [id number] Essential hypertension Hypogonadism in male Impacted cerumen [...] 025 2:51pm Atherosclerotic heart diseas e of [place] coronary artery with other forms of January [...] 025 2:51pm Atherosclerotic heart diseas e of [place] coronary artery with other forms of January [...] Admit Date Atherosclerotic heart diseas e of [place] coronary artery with other forms of January 01, 2025 4:05pm Erectile dysfunction January 01, 2025 4:0 5pm Low testosterone in male January 01, 2025 4:05pm Hyperlipemia January 01, 2025 4:05 pm Schizoaffective disorder January 01, 2025 4:05pm Type 2 diabetes mellitus January 01, 2025 4:05pm Atherosclerotic heart diseas e of [place] coronary artery with other forms of April [...] 10:2 8am Atherosclerotic heart diseas e of [place] coronary artery with other forms of April 27, 2025 10:28am Erectile dysfunction April 27, 2025 10: 28am Essential hypertension April 27, 2025 1 0:28am Hyperlipemia April 27, 2025 10:2 8am Type 2 diabetes mellitus April 27, 2025 10:28am Reason for Visit Admit Date Acute bronchitis April 27, 2025 10:2 8am Atherosclerotic heart diseas e of [place] coronary artery with other forms of April 27, 2025 10:28am Erectile dysfunction April 27, 2025 10: 28am Essential hypertension April 27, 2025 1 0:28am Hyperlipemia April 27, 2025 10:2 8am Type 2 diabetes mellitus April 27, 2025 10:28am Atherosclerotic heart diseas e of [place] coronary artery with other forms of May [...] 2 LAB ORDERING ED [facility] st 2024 1:28pm Rt Hip/Leg Pain June 17, 2025 3: 02pm Reason for Visit Admit Date Acute bronchitis April 27, 2025 10:2 8am Atherosclerotic heart diseas e of [place] coronary artery with other forms of April 27, 2025 10:28am Erectile dysfunction April 27, 2025 10: 28am Essential hypertension April 27, 2025 1 0:28am Hyperlipemia April 27, 2025 10:2 8am Type 2 diabetes mellitus April 27, 2025 10:28am Atherosclerotic heart diseas e of [place] coronary artery with other forms of May [...] 2025 11:3 8am 2 LAB ORDERING ED [facility] 2024 1:28pm Rt Hip/Leg Pain June 17, 2025 3: 02pm INT LAB ORDERS June 24, 2025 8: 41am Reason for Visit Admit Date Acute bronchitis April 27, 2025 10:2 8am Atherosclerotic heart diseas e of [place] coronary artery with other forms of April 27, 2025 10:28am Erectile dysfunction April 27, 2025 10: 28am Essential hypertension April 27, 2025 1 0:28am Hyperlipemia April 27, 2025 10:2 8am Type 2 diabetes mellitus April 27, 2025 10:28am Atherosclerotic heart diseas e of [place] coronary artery with other forms of May 18, 2025 11:38am Concern about urinary tract disease with out diagnosis May 18, 2025 11:38am Erectile dysfunction May 18, 2025 11: 38am Essential hypertension May 18, 2025 1 1:38am Hypogonadism in male May 18, 2025 11: 38am Type 2 diabetes mellitus May 18, 2025 11:38am Atherosclerotic heart diseas e of [place] coronary artery with other forms of June [...] 10:2 8am Atherosclerotic heart diseas e of [place] coronary artery with other forms of April 27, 2025 10:28am Erectile dysfunction April 27, 2025 10: 28am Essential hypertension April 27, 2025 1 0:28am Hyperlipemia April 27, 2025 10:2 8am Type 2 diabetes mellitus April 27, 2025 10:28am Atherosclerotic heart diseas e of [place] coronary artery with other forms of May 18, 2025 11:38am Concern about urinary tract disease with out diagnosis May 18, 2025 11:38am Erectile dysfunction May 18, 2025 11: 38am Essential hypertension May 18, 2025 1 1:38am Hypogonadism in male May 18, 2025 11: 38am Type 2 diabetes mellitus May 18, 2025 11:38am Atherosclerotic heart diseas e of [place] coronary artery with other forms of June 17, 2025 3:02pm Discomfort of right hip June 17 3:02pm Essential hypertension June 17, 2025 3:02pm Impacted cerumen of both ears May 3:02pm Type 2 diabetes mellitus June 17 3:02pm Proteinuria June 17, 2025 3: 02pm Atherosclerotic heart diseas e of [place] coronary artery with other forms of July 28, 2025 10:31am Essential hypertension July 28, 025 10:31am Persistent dry cough July 28 10:31am Chief Complaint Admit Date POSSIBLE PNEUMONIA April 27, 2025 10:2 8am Possible UTI May 18, 2025 11:3 8am 2 LAB ORDERING ED [facility] st 2024 1:28pm Rt Hip/Leg Pain June [...] 10:2 8am Atherosclerotic heart diseas e of [place] coronary artery with other forms of April 27, 2025 10:28am Erectile dysfunction April 27, 2025 10: 28am Essential hypertension April 27, 2025 1 0:28am Hyperlipemia April 27, 2025 10:2 8am Type 2 diabetes mellitus April 27, 2025 10:28am Atherosclerotic heart diseas e of [place] coronary artery with other forms of May 18, 2025 11:38am Concern about urinary tract disease with out diagnosis May 18, 2025 11:38am Erectile dysfunction May 18, 2025 11: 38am Essential hypertension May 18, 2025 1 1:38am Hypogonadism in male May 18, 2025 11: 38am Type 2 diabetes mellitus May 18, 2025 11:38am Atherosclerotic heart diseas e of [place] coronary artery with other forms of June 17, 2025 3:02pm Discomfort of right hip June 17 3:02pm Essential hypertension June 17, 2025 3:02pm Impacted cerumen of both ears May 3:02pm Type 2 diabetes mellitus June 17 3:02pm Proteinuria June 17, 2025 3: 02pm Atherosclerotic heart diseas e of [place] coronary artery with other forms of July [...] section and content) DATE CREATED AUTHOR 09/21/2021 [facility] ([place]) DATE CREATED AUTHOR AUTHOR'S ORGANIZ ATION 06/08/2022 [facility] DATE CREATED AUTHOR AUTHOR'S ORGANIZ ATION 10/10/2023 [facility] DATE CREATED AUTHOR AUTHOR'S ORGANIZ ATION 05/18/2025 [facility] DATE CREATED AUTHOR AUTHOR[facility]S [facility]IZ ATION [facility] Goals (unrecognized section and content) Goals [...] Provider, Referri ng Provider Active Leslie Holley NURSING STAFFING COORDINATOR, NURSING STAFFING COORDINATOR-C Attending Provider Active Team Status: Active Member Role Status Dates Dr. Pietro Turner MD Primary Care Provider Active Leslie Holley NURSING STAFFING COORDINATOR, NURSING STAFFING COORDINATOR-C Referring Provider, Other Provi toño Active Dr. [...] MD Primary Care Provider Active Leslie Holley NURSING STAFFING COORDINATOR, NURSING STAFFING COORDINATOR-C Attending Provider, Referring P yovanider Active Team Status: Inactive Member Role Status Dates Dr. Pietro Turner MD Primary Care Provider, Referri ng Provider Active Jocelyne Dickey NURSING STAFFING COORDINATOR, NURSING STAFFING COORDINATOR-C Attending Provider Active Team Status: Inactive Member Role Status Dates Dr. Pietro Turner MD Primary Care Provider, Referri ng Provider Active Solitario Guy PA, PA Attending Provider Active Team Status: Inactive Member Role Status Dates Dr. Pietro Turner MD Primary Care Provider Active Jocelyne Dickey NURSING STAFFING COORDINATOR, NURSING STAFFING COORDINATOR-C Attending Provider, Referring Pro vider Active Team Status: Active Member Role Status Dates Dr. Pietro Turner MD Primary Care Provider Active Jocelyne Dickey NURSING STAFFING COORDINATOR, NURSING STAFFING COORDINATOR-C Attending Provider, Referring Pro vider Active Team [...] 2024 End: October 27, 2024 Jocelyne Dickey NURSING STAFFING COORDINATOR, NURSING STAFFING COORDINATOR-C Attending Provider Active S tart: October 27, 2024 End: October 27, 2024 Jocelyne Dickey NURSING STAFFING COORDINATOR, NURSING STAFFING COORDINATOR-C Referring Provider Active S tart: October 27, [...] Active Start: June 15, 2025 Jocelyne Dickey NURSING STAFFING COORDINATOR, NURSING STAFFING COORDINATOR-C Referring Provider Active S tart: June 15, [...] 2025 End: June 15, 2025 Jocelyne Dickey NURSING STAFFING COORDINATOR, NURSING STAFFING COORDINATOR-C Referring Provider Active S tart: June 15, [...] 2025 End: June 15, 2025 Jocelyne Dickey NURSING STAFFING COORDINATOR, NURSING STAFFING COORDINATOR-C Referring Provider Active S tart: June 15, [...] End: August 10, 2025 Jocelyne Dickey NP, NURSING STAFFING COORDINATOR-C Attending physician Active Start: August 10, 2025 [...] 2025 End: August 24, 2025 Dr. Pietro Turner MD Attending physician Active Start: August 24, [...] BE BASED ON THE PRIMARY CLINICAL RECORDS. [employer] [facility]. provides no warranty or guarantee of the accuracy or completeness of information in this document.
[2025-10-15] VITALS (7 sets, daily range): BP systolic 135–180; BP diastolic 85–106; PULSE 70–78; RESP 14–20; TEMP 36.3–37; O2SAT 93–97
--- NOTE | 2025-10-15 00:28 | EKG12_ITS ---
Test Reason : CP ADMIT Blood Pressure : */* mmHG Vent. Rate : 72 BPM Atrial Rate : 72 BPM P-R Int : 180 ms QRS Dur : 106 ms QT Int : 382 ms P-R-T Axes : 44 44 71 degrees QTcB Int : 418 ms Normal sinus rhythm Normal ECG When compared with ECG of 14-Oct-2025 18:45, MANUAL COMPARISON REQUIRED DATA IS UNCONFIRMED Confirmed by Hadley Godinez ([id number]), web editor DICK HARE ([id number]) on 10/15/2025 10:22:50 AM Referred By: SHERYL Confirmed By: Hadley Godinez
--- NOTE | 2025-10-15 06:01 | EKG12_ITS ---
Test Reason : CP Blood Pressure : */* mmHG Vent. Rate : 73 BPM Atrial Rate : 73 BPM P-R Int : 184 ms QRS Dur : 104 ms QT Int : 388 ms P-R-T Axes : 46 54 60 degrees QTcB Int : 427 ms Normal sinus rhythm Normal ECG When compared with ECG of 15-Oct-2025 00:19, MANUAL COMPARISON REQUIRED DATA IS UNCONFIRMED Confirmed by Hadley Godinez ([id number]), visual effects editor DICK HARE ([id number]) on 10/15/2025 10:22:28 AM Referred By: Confirmed By: Hadley Godinez
[2025-10-15 07:33] LABS: Hematocrit 37.7 % (40-54); Hemoglobin 13.3 g/dL (13.0-16.5); Immature Granulocytes Count 0.030 X10^3/uL (0.0-0.0); Mean Corp Hgb Conc 35.3 g/dL (32-36); Mean Corpuscular Volume 85.7 fL (80-94); Mean Platelet Vol. 9.2 fl (6.2-12.0); NRBC Flagged by Analyzer 0 % (0-5); Platelet Count 210 K/mm3 (150-450); RBC Distribution Width CV 13.0 % (11.6-14.6); RBC Distribution Width SD 39.8 fl (35.1-43.9); Red Blood Count 4.40 M/mm3 (4.6-6.2); White Blood Count 6.1 K/mm3 (4.4-11.0)
--- NOTE | 2025-10-15 07:56 | PCM.CONS.C ---
Assessment & Plan Assessment/Plan (1) History of coronary artery stent placement: PLAN: Patient has a known history of LAD stenting in 2019. He was recath in 2021 and the stent was widely patent. He did have residual mild disease in the circumflex and right coronary arteries. The patient has a schizoaffective disorder and is clinically appears to be depressed. He has had multiple different types of discomfort over the last week. His enzymes are negative x 3 sets and his ECG is normal. I would recommend given his known coronary disease that we reevaluate him with a treadmill nuclear stress test. He is concerned he may not be able to get heart rate due to his overall energy level. If he cannot get heart rate we will switch it to a pharmacologic nuclear stress test. It would be important to try and do his stress test on a treadmill to recreate his symptoms to see if there is any area of ischemia documented by the nuclear scan. Given the patient's heme positive stool I am concerned about cathing him and placing a new stent at this point in time until his GI evaluation is completed. (2) Essential hypertension: PLAN: Patient's blood pressure has been labile since he was admitted. Will defer further treatment to the primary service. He should be continued on his carvedilol hydrochlorothiazide and ARB therapy. He is also on Imdur in his home environment. This should also be continued. (3) Hyperlipemia: QUALIFIERS: Hyperlipidemia type: mixed hyperlipidemia Qualified Code(s): E78.2 - Mixed hyperlipidemia PLAN: Patient is intolerant of all statins. He is also intolerant of amlodipine lisinopril and spironolactone. (4) Type 2 diabetes mellitus: QUALIFIERS: Diabetes mellitus customer service coordinator insulin use: unspecified customer service coordinator insulin use status Diabetes mellitus complication status: with circulatory complication Diabetes mellitus complication detail: with other circulatory complications Qualified Code(s): E11.59 - Type 2 diabetes mellitus with other circulatory complications PLAN: Further treatment of his diabetes by the primary service. (5) Chest pain: QUALIFIERS: Chest pain type: unspecified Qualified Code(s): R07.9 - Chest pain, unspecified PLAN: The patient's symptoms on the treadmill are variable. This raises the potential of noncardiovascular etiologies given the fact he had a prolonged episode of discomfort with completely normal troponins and no ECG changes on presentation. He does report that his stool sample was read as heme positive from last week. And it has been black and tarry. However, his hemoglobin is 13 on admission. Will proceed with treadmill nuclear stress test and switch to pharmacologic if not able to obtain heart rate. PLAN: Plan 1. Treadmill nuclear stress test today. If unable to reach heart rate we will switch to pharmacologic nuclear stress test. 2. Continue current medical therapy. 3. Further secondary risk factor modification therapy per the primary service. 4. Should the patient's evaluation suggest the need for left heart catheterization, we would need to get GI clearance given his history of heme positive stools. 5. Dr. Minor will be assuming the service tomorrow. HPI Consult Data Date of Consult: 10/15/25 HPI Narrative Reason for Consultation: Recurrent Chest Asymptoms HPI Narrative: ALIX LEE, is a 65 M who presents with a one week h/o chest discomfort. The patient first noticed chest symptoms about a week ago when he was walking his treadmill. He developed some mid retrosternal discomfort he had left arm and left side of his face discomfort. He took 1 sublingual nitro it resolved and he was able to complete his workout on his treadmill. A few days later he was back on the treadmill and had a different type of symptom in his mid chest that did not involve the arm or face. He took a nitro and it did not really change. The patient then was pain-free until yesterday afternoon when he was getting ready to DO to a class and he was running late and was very stressed out. This created some mid retrosternal aching sensation that was a third different type of discomfort. The patient does carry history of known coronary disease status post stenting of the LAD in 2019 at [facility]. He was reevaluated with a left heart catheterization in October 2021 and at that time his EF was 55 to 60% his LAD stent was widely patent. He did have 30-50% stenosis noted in the circumflex and right coronary arteries. The second cath was done here at [facility]. The patient's energy level has improved since he is treating his sleep apnea. He does have a history of hypertension, hyperlipidemia, obesity and diabetes. Patient also has a history of depression on medical therapy. The patient had 2 ECGs when he was admitted yesterday evening that were both normal. His troponins were 7, 7, and 8. He has had no recurrence of his symptoms since his admission by his report. Telemetry has shown sinus rhythm at 82 bpm. Chest x-ray was negative. The patient reports that he was recently evaluated by Dr. Bertrand his primary care physician due to black stools. He gave a stool sample last week and was notified that it was heme positive. [facility] Medical History Diarrhea Muscle pain Persistent dry cough Discomfort of right hip Concern about urinary tract disease without diagnosis UTI (urinary tract infection) Acute bronchitis Erectile dysfunction Alcohol use Bruising High cholesterol Gastric reflux History of Holter monitoring History of echocardiogram Nausea & vomiting Colon cancer screening Wears hearing aid Wears glasses Schizophrenia Anxiety Diabetes Low iron Fatty liver Restless legs Back pain Tic disorder History of diverticulitis Former smoker History of stress test Cardiology follow-up encounter Hypertension Cholelithiasis History of sarcoidosis Depression Pancreatitis Secondary pulmonary arterial hypertension Atherosclerotic heart disease of campo coronary artery with other forms of angina pectoris History of non-ST elevation myocardial infarction (NSTEMI) (07/26/20) Essential hypertension Type 2 diabetes mellitus Nausea Fatigue Urinary hesitancy Liver disease Hypoglycemia Hyperlipemia Gout GERD (gastroesophageal reflux disease) Anxiety and depression Bone fracture Anemia History of alcohol abuse Schizoaffective disorder Home Medications ?Medication ?Instructions ?Recorded ?Last Taken ?Type needle (disp) 18 G 18 gauge x 1 #100 ea 05/22/22 Unknown Rx (BD Regular Bevel [place]) flash glucose scanning reader #1 ea 02/05/24 Unknown Rx (FreeStyle Jean 2 [place]) cholecalciferol (vitamin D3) 125 2,000 unit PO DAILY 05/05/24 10/14/25 History mcg (5,000 unit) tablet (Vitamin D3) syringe with needle, safety 3 mL #50 ea 05/13/24 Unknown Rx 25 gauge x 1 aspirin 81 mg tablet,delayed 81 mg PO 1400 05/23/24 10/14/25 History release magnesium glycinate 100 mg (as 100 mg PO QHS 09/05/24 10/13/25 History glycinate) tablet (Mag Glycinate) omeprazole 20 mg capsule,delayed 20 mg PO BID #180 caps 11/13/24 10/14/25 Rx release flash glucose sensor (FreeStyle #1 ea 03/13/25 Unknown Rx Jean 2 Sensor kit) isosorbide mononitrate 60 mg 60 mg PO BID #180 tabs 03/13/25 10/14/25 Rx tablet,extended release 24 hr nitroglycerin 0.4 mg sublingual 0.4 mg sublingual Q5-15M PRN chest 03/13/25 Unknown Rx tablet (Nitrostat) pain #25 tabs testosterone cypionate 200 mg/mL 150 mg (0.75 mL) IM Q2W #5 mL 08/12/25 09/29/25 Rx intramuscular oil trifluoperazine 1 mg tablet 1 mg PO DAILY Nerves 08/24/25 10/14/25 History mirtazapine 15 mg tablet 15 mg PO QHS 09/30/25 10/13/25 History semaglutide 1 mg/dose (4 mg/3 mL) 1 mg subcut QWEEK 09/30/25 10/07/25 History subcutaneous pen injector (Ozempic) irbesartan 150 mg tablet 150 mg PO DAILY #60 tabs 10/02/25 10/14/25 Rx carvedilol 25 mg tablet 25 mg PO BID 90 days #180 tabs 10/07/25 10/14/25 Rx hydrochlorothiazide 25 mg tablet 25 mg PO DAILY #90 tabs 10/08/25 10/14/25 Rx guanfacine 1 mg tablet,extended 1 mg PO DAILY 10/14/25 10/14/25 History release 24 hr metformin 500 mg tablet,extended 500 mg PO BID 10/14/25 10/14/25 History release 24 hr Allergy/AdvReac Type Severity Reaction Status Date / Time Penicillins (PCN) Allergy Mild Other Verified 10/14/25 23:55 amlodipine AdvReac Intermediate Other Verified 10/14/25 23:56 Sfcsogy-DGI-XfJ Reductase AdvReac Intermediate myalgias Verified 10/14/25 18:34 Inhibitor lisinopril AdvReac cough Verified 10/14/25 18:34 spironolactone AdvReac elevated Verified 10/14/25 18:34 blood sugar Family History Other CVA (cerebral vascular accident) Cancer Depression with anxiety Diabetes FH: mental illness Hyperlipemia Hypertension Osteoporosis Surgical History History of cardiac catheterization History of cholecystectomy Hx of colonoscopy History of left heart catheterization (11/02/21) History of coronary artery stent placement (07/26/20) History of cataract surgery History of placement of ear tubes History of tonsillectomy History of amputation of finger Social History Smoking Status: Former smoker quit date: 10/29/05 Tobacco: How many years used: 15 alcohol intake: former year quit: 2014 substance use type: does not use caffeine: Yes Type: carbonated beverages and coffee what type of physical activity do you participate in: walking ROS Constitutional Constitutional: Reports as per HPI Eyes Eyes: Reports systems reviewed and no addt'l complaints, except as documented ENT HEENT: Reports systems reviewed and no addt'l complaints, except as documented Cardiovascular Cardiovascular: Reports as per HPI Respiratory/Chest Respiratory/Chest: Reports as per HPI Gastrointestinal Gastrointestinal: Reports as per HPI Genitourinary Genitourinary: Reports systems reviewed and no addt'l complaints, except as documented Musculoskeletal Musculoskeletal: Reports systems reviewed and no addt'l complaints, except as documented Integumentary Integumentary: Reports systems reviewed and no addt'l complaints, except as documented Neurologic Neurologic: Reports systems reviewed and no addt'l complaints, except as documented Psychiatric Psychiatric: Reports as per HPI Endocrine Endocrinology: Reports as per HPI Hematologic/Lymphatic Hematologic/Lymphatic: Reports as per HPI Allergic/Immunologic Allergic/Immunologic: Reports systems reviewed and no addt'l complaints, except as documented Physical Exam Const alert and oriented x3 Eyes EOMs intact bilaterally Neck no JVD and no carotid bruits Chest inspection of chest normal Resp normal respiratory effort and clear to auscultation bilaterally Cardio Rate: regular rate Rhythm: regular rhythm Heart Sounds: S1 normal and S2 normal; Negative for click, gallop or murmur Peripheral Pulses: radial pulses present right 3+ and posterior tibial pulses present right 3+ and left 2+ GI GI Narrative: Mildly protuberant Extremity no pedal edema Neuro Neuro Narrative: Alert and oriented x 3 Psych Psych Narrative: Speaks monotone voice. Depressed affect. Charges/Coding Visit Charges Inpatient E&M: 96207 Init Hosp L3 Objective Data Vital Signs: Vital Signs Temp Pulse Resp BP Pulse Ox O2 Del Method FiO2 98.6 F 70 16 178/91 H 97 Room Air 95 10/15/25 07:30 10/15/25 07:30 10/15/25 07:30 10/15/25 07:30 10/15/25 06:05 10/15/25 07:30 10/15/25 07:30 Oxygen Delivery Method Room Air Weight: 260 lb Body Mass Index (BMI) 34.2 Lab / Micro Data Attestation: I reviewed the patient's lab results. 10/15/25 06:44 10/14/25 18:48 Labs: Laboratory Results - last 24 hr 10/14/25 18:48: WBC 6.6, RBC 4.42 L, Hgb 13.4, Hct 37.8 L, MCV 85.5, MCH 30.3, MCHC 35.4, RDW Std Deviation 40.1, RDW Coeff of Etta 13.1, Plt Count 215, MPV 8.9, Immature Gran % (Auto) 0.500, Neut % (Auto) 68.9, Lymph % (Auto) 19.3, Routt % (Auto) 6.6, Eos % (Auto) 4.1, Baso % (Auto) 0.6, Absolute Neuts (auto) 4.6, Absolute Lymphs (auto) 1.28, Nucleated RBC % 0, Sodium 137, Potassium 3.6, Chloride 99, Carbon Dioxide 25.6, Anion Gap 12, BUN 24 H, Creatinine 1.19, Estim Creat Clear Calc 85.54, Est GFR (MDRD) Non-Af 69, BUN/Creatinine Ratio 20.5 H, Glucose 213 H, Calcium 9.8, Troponin T High Sens 7, NT pro BNP II 53 10/14/25 20:33: Troponin T Hi Sens 2 Hr 7 10/14/25 22:23: Troponin T Hi Sens 4Hr 8 10/14/25 23:43: POC Glucose 142 H 10/15/25 05:35: POC Glucose 142 H 10/15/25 06:44: WBC 6.1, RBC 4.40 L, Hgb 13.3, Hct 37.7 L, MCV 85.7, MCH 30.2, MCHC 35.3, RDW Std Deviation 39.8, RDW Coeff of Etta 13.0, Plt Count 210, MPV 9.2, Immature Gran % (Auto) 0.500, Neut % (Auto) 67.9, Lymph % (Auto) 17.3 L, Routt % (Auto) 9.3, Eos % (Auto) 4.2, Baso % (Auto) 0.8, Absolute Neuts (auto) 4.2, Absolute Lymphs (auto) 1.06, Nucleated RBC % 0 Rhythm Strip Rhythm Strip: Sinus Rhythm Rate: 82 Cardiology Labs/Tests 10/14/25 18:48: WBC 6.6, RBC 4.42 L, Hgb 13.4, Hct 37.8 L, MCV 85.5, MCH 30.3, MCHC 35.4, Plt Count 215, MPV 8.9, Immature Gran % (Auto) 0.500, Neut % (Auto) 68.9, Lymph % (Auto) 19.3, Routt % (Auto) 6.6, Eos % (Auto) 4.1, Baso % (Auto) 0.6, Absolute Neuts (auto) 4.6, Nucleated RBC % 0, Sodium 137, Potassium 3.6, Chloride 99, Carbon Dioxide 25.6, Anion Gap 12, BUN 24 H, Creatinine 1.19, Est GFR (MDRD) Non-Af 69, BUN/Creatinine Ratio 20.5 H, Glucose 213 H, Calcium 9.8 10/15/25 06:44: WBC 6.1, RBC 4.40 L, Hgb 13.3, Hct 37.7 L, MCV 85.7, MCH 30.2, MCHC 35.3, Plt Count 210, MPV 9.2, Immature Gran % (Auto) 0.500, Neut % (Auto) 67.9, Lymph % (Auto) 17.3 L, [place] % (Auto) 9.3, Eos % (Auto) 4.2, Baso % (Auto) 0.8, Absolute Neuts (auto) 4.2, Nucleated RBC % 0 Rhythm: EKG: ECHO: Stress Test: Cardiac Cath: PCI: CT Surgery: Holter monitor: EPS: PPM: CXR: Chest CT Scan: Radiography Diagnostic Testing: Radiology Impression Chest X-Ray 10/14/25 18:52 IMPRESSION: No Acute Findings. [facility] Risk Score for UA/STEMI Assesmment (YES = 1) Risk Stratification Applicable: Yes Age > or = 65: No > or = 3 CAD risk factors (HTN, Hypercholesterolemia, Diabetes, family hx, current smoker): Yes Known CAD (Stenosis > or = 50%): Yes ASA used in past 7 days: Yes Severe angina (> or = 2 episodes in 24 hrs): No EKG ST change > or = 0.5mm: No Positive cardiac markers: No Score ELDER Risk Score of mortality/ recurrent ischemic event over the next 14 days: 3 = 13.2% Intermediate Risk
[2025-10-15 08:06] LABS: Anion Gap 11 (5-15); BUN 23 mg/dL (4-19); BUN/Creat Ratio 20.5 RATIO (10-20); Calcium,Total 9.6 mg/dL (7.6-11.0); Carbon Dioxide 26.4 mmol/L (21.0-32.0); Chloride 100 mmol/L (98-108); Estimated Creatinine Clearance 91.64 ml/min (50-250); Glucose 141 mg/dL (70-99); Potassium 3.9 mmol/L (3.3-5.1)
--- NOTE | 2025-10-15 10:01 | NURSING ---
patient arrives back from stress test patients imdur and coreg were given in stress lab by nuclear medicine.
--- NOTE | 2025-10-15 11:23 | STRESSREP_ITS ---
Stress Test Report Date: 10/15/2025 Procedure: Exercise tolerance test/imaging study Indications: Chest pain Consent: Per the patient Procedure: The patient exercised on a Evaristo protocol for 5 minutes and 1 second achieving a peak heart rate of 137 bpm (87% predicted maximal heart rate) with a peak blood pressure 210/100 mmHg and a peak MET capacity of 7.0 METs. The baseline ECG demonstrated sinus rhythm. ST segment flattening noted in inferior leads in recovery but did not reach diagnostic significance for ischemia. There were no cardiac dysrhythmias pretest, during exercise, or recovery. The functional capacity was considered average. There was no complaints of chest discomfort during exercise or in recovery. He did complain of shortness of breath with exercise. The examination was discontinued secondary to dyspnea and target heart rate being achieved. The patient was injected with 14.9 mCi of technetium 99m Cardiolite and subsequently rest SPECT Cardiolite nuclear imaging was obtained in the horizontal long, vertical long, and short axis views. Post-exercise, the patient was injected with 45.0 mCi of technetium 99m Cardiolite and subsequently stress SPECT Cardiolite nuclear imaging was obtained in the horizontal long, vertical long, and short axis views. A gated Cardiolite study at peak stress was obtained. Rest and stress SPECT Cardiolite nuclear imaging status post realignment, normalization, and attenuation correction, demonstrates the appearance of relative uniform tracer uptake and myocardial perfusion appearing within normal limits. There is end systolic thickening and brightening. The gated Cardiolite study demonstrates myocardial thickening and inward wall motion. The reported LVEF is 63%. Impression: 1. Technically adequate (percent predicted maximal heart rate greater than 85%) exercise tolerance test 2. ST segment flattening in inferior leads in recovery that did not reach diagn ostic significance 3. There were no cardiac dysrhythmias pretest, during exercise, or recovery 4. Rest and stress SPECT Cardiolite nuclear imaging demonstrate relative uniform tracer uptake and myocardial perfusion appearing within normal limits. 5. The gated Cardiolite study reports an LVEF of 63%. This note was generated with [employer] software. It may contain incorrect words, spelling, and punctuation that were not noted in checking the note before signing.
[2025-10-15] MEDS: Aspirin E.C. 81 MG Tablet PO (13:58)
--- NOTE | 2025-10-15 15:11 | PCM.DC.SUM ---
Providers Date of Admission: 10/14/25 Date of Discharge: 10/15/25 Primary Care Physician: Dr. Caryl Turner MD Consultations 10/14/25 23:37 Consult: Cardiology Routine Consulting Provider: Hadley Godinez Reason for Consult: chest pain EMERGENT Consult: No MD Notified: Yes Date Notified: 10/14/25 Time Notified: 22:58 Method of Notification: ED Physician Initiated Reason For Visit: chest pain Diagnosis Discharge Diagnosis (1) History of coronary artery stent placement: Status: Acute Code(s): Z95.5 - Presence of coronary angioplasty implant and graft (2) Essential hypertension: Status: Acute Code(s): I10 - Essential (primary) hypertension (3) Hyperlipemia: Status: Chronic Code(s): E78.5 - Hyperlipidemia, unspecified Qualifiers: Hyperlipidemia type: mixed hyperlipidemia Qualified Code(s): E78.2 - Mixed hyperlipidemia (4) Type 2 diabetes mellitus: Status: Chronic Code(s): E11.9 - Type 2 diabetes mellitus without complications Qualifiers: Diabetes mellitus complication detail: with other circulatory complications Diabetes mellitus complication status: with circulatory complication 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 Qualified Code(s): E11.59 - Type 2 diabetes mellitus with other circulatory complications (5) Chest pain: Status: Acute Code(s): R07.9 - Chest pain, unspecified Qualifiers: Chest pain type: unspecified Qualified Code(s): R07.9 - Chest pain, unspecified Medications at Discharge Home Medications needle (disp) 18 G 18 gauge x 1 (BD Regular Bevel [place]) #100 ea 05/22/22 flash glucose scanning reader (FreeStyle Jean 2 [place]) #1 ea 02/05/24 cholecalciferol (vitamin D3) 125 mcg (5,000 unit) tablet (Vitamin D3) 2,000 unit PO DAILY 05/05/24 syringe with needle, safety 3 mL 25 gauge x 1 #50 ea 05/13/24 aspirin 81 mg tablet,delayed release 81 mg PO 1400 05/23/24 Held on 10/15/25. Instructions: Resume on 11/05/25. hold until you follow up with GI for the chest pain. magnesium glycinate 100 mg (as glycinate) tablet (Mag Glycinate) 100 mg PO QHS 09/05/24 omeprazole 20 mg capsule,delayed release 20 mg PO BID #180 caps 11/13/24 flash glucose sensor (FreeStyle Jean 2 Sensor kit) #1 ea 03/13/25 isosorbide mononitrate 60 mg tablet,extended release 24 hr 60 mg PO BID #180 tabs 03/13/25 nitroglycerin 0.4 mg sublingual tablet (Nitrostat) 0.4 mg sublingual Q5-15M PRN chest pain #25 tabs 03/13/25 testosterone cypionate 200 mg/mL intramuscular oil 150 mg (0.75 mL) IM Q2W #5 mL 08/12/25 trifluoperazine 1 mg tablet 1 mg PO DAILY Nerves 08/24/25 mirtazapine 15 mg tablet 15 mg PO QHS 09/30/25 semaglutide 1 mg/dose (4 mg/3 mL) subcutaneous pen injector (Ozempic) 1 mg subcut QWEEK 09/30/25 irbesartan 150 mg tablet 150 mg PO DAILY #60 tabs 10/02/25 carvedilol 25 mg tablet 25 mg PO BID 90 days #180 tabs 10/07/25 hydrochlorothiazide 25 mg tablet 25 mg PO DAILY #90 tabs 10/08/25 guanfacine 1 mg tablet,extended release 24 hr 1 mg PO DAILY 10/14/25 metformin 500 mg tablet,extended release 24 hr 500 mg PO BID 10/14/25 Hospital Course Summary of Care Provided Minutes Spent on Discharge: 45 Hospital Course: Patient is a 65-year-old male with past medical history as outlined was admitted through the ED on 10/14/2025 with complaint of chest pain with chest pain going on for about a week and a half prior to admission. He had a history of CAD s/p stent in the LAD and had had frequent repeat episodes of chest pain. He had a repeat cardiac cath in 2021 which showed progression of some mild stenosis to about 50% but he was not noted to require any intervention at that time. He said his chest pain had been worsened with exertion of the treadmill but relieved with rest. He had taken some nitro for the chest pain he had on his way to an art class. He subsequently had chest pain again so he came into the ED. EKG showed no acute ST changes and troponins x 3 were negative. He was admitted to be managed for chest pain rule out ACS. He had an exercise nuclear stress test done on 10/15/2025 which was negative for any evidence of ischemia and showed EF of 63%. He remained stable and was discharged him on 10/15/2025. Of note the patient had had a positive stool for occult blood and so his aspirin was held after discussion with cardiology. He is due for follow-up with gastroenterology in October and he is to resume his aspirin after seeing gastroenterology and being cleared to resume it. Patient seen and examined prior to discharge. His was by his bedside. He had no active complaints. Patient had a very flat affect but denied depression or anxiety. Chest pain had resolved. Review of systems otherwise negative. Labs and vitals reviewed. Home medication reviewed and reconciled. Physical Exam Const alert, oriented x3 and no apparent distress Constitutional Narrative: very flat affect. General Appearance: cooperative and comfortable Orientation / Consciousness: awake Exam Limitations: no limitations HEENT normocephalic, head/scalp atraumatic, hearing grossly normal bilaterally, moist oral mucous membranes and oropharynx normal Mouth: oral and palatal mucosa normal Eyes EOMs intact bilaterally and conjunctivae normal Neck supple and no JVD Resp normal respiratory effort, no retractions, no use of accessory muscles and clear to auscultation bilaterally Cardio regular rate, regular rhythm, S1 normal heart sound, S2 normal heart sound and no murmurs GI normal to inspection, nondistended, normoactive bowel sounds, soft to palpation and non-tender Extremity no clubbing, cyanosis or edema Skin no rashes or lesions noted and no wounds Neuro CN's II-XII intact bilaterally, moves all extremities and no focal motor deficits Sensorium / Orientation: awake and alert Motor Exam: strength 5/5 throughout Psych affect normal Weight / BMI Weight Weight: 260 lb Body Mass Index (BMI) 34.2 ABG / Lab / Microbiology Data 10/15/25 06:44 10/15/25 06:44 Laboratory: Laboratory Results - last 24 hr 10/14/25 18:48: WBC 6.6, RBC 4.42 L, Hgb 13.4, Hct 37.8 L, MCV 85.5, MCH 30.3, MCHC 35.4, RDW Std Deviation 40.1, RDW Coeff of Etta 13.1, Plt Count 215, MPV 8.9, Immature Gran % (Auto) 0.500, Neut % (Auto) 68.9, Lymph % (Auto) 19.3, [place] % (Auto) 6.6, Eos % (Auto) 4.1, Baso % (Auto) 0.6, Absolute Neuts (auto) 4.6, Absolute Lymphs (auto) 1.28, Nucleated RBC % 0, Sodium 137, Potassium 3.6, Chloride 99, Carbon Dioxide 25.6, Anion Gap 12, BUN 24 H, Creatinine 1.19, Estim Creat Clear Calc 85.54, Est GFR (MDRD) Non-Af 69, BUN/Creatinine Ratio 20.5 H, Glucose 213 H, Calcium 9.8, Troponin T High Sens 7, NT pro BNP II 53 10/14/25 20:33: Troponin T Hi Sens 2 Hr 7 10/14/25 22:23: Troponin T Hi Sens 4Hr 8 10/14/25 23:43: POC Glucose 142 H 10/15/25 05:35: POC Glucose 142 H 10/15/25 06:44: WBC 6.1, RBC 4.40 L, Hgb 13.3, Hct 37.7 L, MCV 85.7, MCH 30.2, MCHC 35.3, RDW Std Deviation 39.8, RDW Coeff of Etta 13.0, Plt Count 210, MPV 9.2, Immature Gran % (Auto) 0.500, Neut % (Auto) 67.9, Lymph % (Auto) 17.3 L, [place] % (Auto) 9.3, Eos % (Auto) 4.2, Baso % (Auto) 0.8, Absolute Neuts (auto) 4.2, Absolute Lymphs (auto) 1.06, Nucleated RBC % 0, Sodium 138, Potassium 3.9, Chloride 100, Carbon Dioxide 26.4, Anion Gap 11, BUN 23 H, Creatinine 1.11, Estim Creat Clear Calc 91.64, Est GFR (MDRD) Non-Af 75, BUN/Creatinine Ratio 20.5 H, Glucose 141 H, Calcium 9.6 10/15/25 11:16: POC Glucose 132 H Radiography Diagnostic Testing: Radiology Impression Chest X-Ray 10/14/25 18:52 IMPRESSION: No Acute Findings. [facility] Instructions Discharge Activity: Return to Normal Activity Weight Bearing Status: Weight bearing as tolerated Call your doctor if you observe: Fever of 101 or Higher, Shortness of breath, Dizziness, Swelling in the ankles, Chest pain and Increased palpitations (irregular heartbeat) DC O2, CPAP, BIPAP Needs Home O2 Discharge instructions: No DC home with Oxygen: No Patient's Goals Of Care - F/U Goals Reviewed Goals of care reviewed with patient: Yes - No change Meaningful Use Info Meaningful Use Meaningful Use Diagnoses (Choose all that apply): None applicable Discharge Plan Admission Admit Date/Time: 10/14/25 22:54 Primary Reason for Your Visit: chest pain Attending Provider: Rosalie Mcnamara Primary Care Provider: Caryl Turner Consulting Providers: Hadley Godinez; Javier Kang Instructions Patient Instructions: ED Chest Pain, Noncardiac Additional Instructions / Restrictions: aspirin held due to positive stool for occult blood, pending gastroenterology evaluation. Discharge Orders/Prescriptions Prescriptions: Continued cholecalciferol (vitamin D3) [Vitamin D3] 125 mcg (5,000 unit) tablet 2,000 unit PO DAILY trifluoperazine 1 mg tablet 1 mg PO DAILY mirtazapine 15 mg tablet 15 mg PO QHS Ozempic 1 mg/dose (4 mg/3 mL) pen injector 1 mg subcut QWEEK Mag Glycinate 100 mg tablet 100 mg PO QHS guanfacine 1 mg tablet extended release 24 hr 1 mg PO DAILY metformin 500 mg tablet extended release 24 hr 500 mg PO BID (DME) needle (disp) 18 G [BD Regular Bevel Girard] 18 gauge x 1 needle See Rx Instructions .Route Qty: 100 0RF Rx Instructions: As directed (DME) FreeStyle Jean 2 [facility] See Rx Instructions .Route Qty: 1 1RF Rx Instructions: As directed (DME) syringe with needle, safety 3 mL 25 gauge x 1 syringe See Rx Instructions .Route Qty: 50 0RF Rx Instructions: As directed omeprazole 20 mg capsule,delayed release(DR/EC) 20 mg PO BID Qty: 180 3RF nitroglycerin [Nitrostat] 0.4 mg tablet, sublingual 0.4 mg sublingual Q5-15M PRN (Reason: chest pain) Qty: 25 3RF Rx Instructions: do not exceed 3 doses per episode isosorbide mononitrate 60 mg tablet extended release 24 hr 60 mg PO BID Qty: 180 3RF (DME) FreeStyle Jean 2 Sensor Kit See Rx Instructions .Route Qty: 1 11RF Rx Instructions: As directed testosterone cypionate 200 mg/mL oil 150 mg IM Q2W Qty: 5 5RF Rx Instructions: PLEASE dispense as five 1ml vials irbesartan 150 mg tablet 150 mg PO DAILY Qty: 60 1RF carvedilol 25 mg tablet 25 mg PO BID 90 Days Qty: 180 3RF hydrochlorothiazide 25 mg tablet 25 mg PO DAILY Qty: 90 3RF Held aspirin 81 mg tablet,delayed release (DR/EC) 81 mg PO 1400 Hold Instructions: Resume on 11/05/25. hold until you follow up with GI for the chest pain. Referrals / Follow Up: Caryl Turner MD [Primary Care Provider, Internal Medicine - [facility]] - Within 1 Week Disposition Disposition (needs filled in before D/C Order can be placed): Home, Self Care Charges/Coding Visit Charges Inpatient E&M: 79236 Disch Hosp >30min
--- NOTE | 2025-10-15 15:19 | CASEMGMT ---
Patient has order for discharge. RN CM in to discuss needs at discharge, at bedside. Patient denies needs or help at discharge. Patient had no further questions or concerns.
--- NOTE | 2025-10-15 15:35 | PHA.DC_ITS ---
Pharmacy [place] Med Reconciliation Pharmacy Service has performed discharge medication reconciliation for this patient. The patient's discharge medication list was reviewed for discrepancies and discrepancies were resolved. Medications at Discharge Home Medications needle (disp) 18 G 18 gauge x 1 (BD Regular Bevel [place]) #100 ea 05/22/22 flash glucose scanning reader (FreeStyle Jean 2 [place]) #1 ea 02/05/24 cholecalciferol (vitamin D3) 125 mcg (5,000 unit) tablet (Vitamin D3) 2,000 unit PO DAILY 05/05/24 syringe with needle, safety 3 mL 25 gauge x 1 #50 ea 05/13/24 aspirin 81 mg tablet,delayed release 81 mg PO 1400 05/23/24 Held on 10/15/25. Instructions: Resume on 11/05/25. hold until you follow up with GI for the chest pain. magnesium glycinate 100 mg (as glycinate) tablet (Mag Glycinate) 100 mg PO QHS 09/05/24 omeprazole 20 mg capsule,delayed release 20 mg PO BID #180 caps 11/13/24 flash glucose sensor (FreeStyle Jean 2 Sensor kit) #1 ea 03/13/25 isosorbide mononitrate 60 mg tablet,extended release 24 hr 60 mg PO BID #180 tabs 03/13/25 nitroglycerin 0.4 mg sublingual tablet (Nitrostat) 0.4 mg sublingual Q5-15M PRN chest pain #25 tabs 03/13/25 testosterone cypionate 200 mg/mL intramuscular oil 150 mg (0.75 mL) IM Q2W #5 mL 08/12/25 trifluoperazine 1 mg tablet 1 mg PO DAILY Nerves 08/24/25 mirtazapine 15 mg tablet 15 mg PO QHS 09/30/25 semaglutide 1 mg/dose (4 mg/3 mL) subcutaneous pen injector (Ozempic) 1 mg subcut QWEEK 09/30/25 irbesartan 150 mg tablet 150 mg PO DAILY #60 tabs 10/02/25 carvedilol 25 mg tablet 25 mg PO BID 90 days #180 tabs 10/07/25 hydrochlorothiazide 25 mg tablet 25 mg PO DAILY #90 tabs 10/08/25 guanfacine 1 mg tablet,extended release 24 hr 1 mg PO DAILY 10/14/25 metformin 500 mg tablet,extended release 24 hr 500 mg PO BID 10/14/25
== END 2025-10-15 16:00 | disposition home or self-care (01) ==
LOC: ED 22:30 → PCU 23:05
PROVIDERS: Admitting Provider Family Medicine; Emergency Provider Specialist/Technologist Athletic Trainer; PCP Internal Medicine; Visit Provider Student in an Organized Health Care Education/Training Program
DX: I25.10 Atherosclerotic heart disease of native coronary artery without angina pectoris (principal); F25.9 Schizoaffective disorder, unspecified; I27.21 Secondary pulmonary arterial hypertension; E11.59 Type 2 diabetes mellitus with other circulatory complications; Z79.4 Long term (current) use of insulin; Z79.85 Long-term (current) use of injectable non-insulin antidiabetic drugs; Z79.84 Long term (current) use of oral hypoglycemic drugs; Z79.82 Long term (current) use of aspirin; Z79.899 Other long term (current) drug therapy; E78.2 Mixed hyperlipidemia; I10 Essential (primary) hypertension; R19.5 Other fecal abnormalities; E66.9 Obesity, unspecified; Z87.891 Personal history of nicotine dependence; G47.30 Sleep apnea, unspecified; Z82.49 Family history of ischemic heart disease and other diseases of the circulatory system; Z95.5 Presence of coronary angioplasty implant and graft; K21.9 Gastro-esophageal reflux disease without esophagitis; R06.02 Shortness of breath
CPT/HCPCS: 71045; 78452; 80048; 82962; 83880; 84484; 85025; 93005; 93017; 99221; 99285; A9500; A4216; G0378

== ENCOUNTER → 2025-10-17 | Outpatient (CLI) | payer MEDICARE, SELFPAY ==
--- OUTSIDE RECORDS SUMMARY | 2025-10-17 10:38 | XMS RPT_ITS | CCD ---
Author Organization [facility] Care Team Providers Care Supervisor Landscape Name Role Phone PIETRO TURNER MD Primary Care Physician Giovanni PT, Betty Unavailable Unavailable Dr. Pietro Turner Primary Care Provider Dr. Pietro Turner Referring Provider [phone] BREAUX, DELI BAKERY CLERK-C Rosalva Attending Provider Dr. Pietro Turner Attending [...] Pietro Turner Referring Provider [phone] Kishan BREAUX, DELI BAKERY CLERK-C Leslie Attending Provider Kishan BREAUX, DELI BAKERY CLERK-C Leslie Referring Provider Kishan BREAUX, DELI BAKERY CLERK-C Leslie Other Provider [phone] Dr. Marck Orellana Attending Provider Dr. Pietro Turner Attending Provider [phone] Dr. Pietro Turner Primary Care Provider Dr. Pietro Turner Referring Provider Holley DELI BAKERY CLERK, DELI BAKERY CLERK-C Leslie Attending Provider Dr. Pietro Turner Primary Care Provider Dr. Pietro Turner Attending Provider Dr. Pietro Turner Referring Provider Brooks KILGORE PA Solitario Attending Provider Roof DELI BAKERY CLERK, DELI BAKERY CLERK-C Jocelyne Tijerina Attending Provider KASEY INGRAM Primary Care Unavail Dr. Pietro Padron Primary Care Provider Dr. Pietro Turner Referring Provider Noble DELI BAKERY CLERK, DELI BAKERY CLERK-C Jocelyne Tijerina Attending Provider Dr. Pietro Turner Attending Provider Dr. Pietro Turner Primary Care Provider Dr. Pietro Turner MD Primary Care Provider Dr. Pietro Turner MD Referring Provider Dr. Dimitry Camp MD Attending Provider Solitario Padilla Attending Provider Roof DELI BAKERY CLERK-C, Jocelyne H Attending Provider Roof DELI BAKERY CLERK-C, Jocelyne Tijerina Referring Provider Esteban OMALLEY, Dr. Acharya Attending Provider Zoë OMALLEY, Dr. Moraes Other Provider Dr. Lamberto Desai DO Attending Provider Dr. Lamberto Desai DO Emergency Provider Dr. Pietro Turner MD Attending Provider Dr. Pietro Turner MD Primary Care Provider Johnny OMALLEY, Dr. Hutson Referring Provider Solitario Padilla Attending Provider Roof DELI BAKERY CLERK-C, Jocelyne H Attending Provider Roof DELI BAKERY CLERK-C, Jocelyne H Referring Provider Esteban OMALLEY, Dr. [...] Johnny OMALLEY, Dr. Hutson Referring Provider Roof DELI BAKERY CLERK-C, Jocelyne H Referring Provider Johnny OMALLEY, Dr. Hutson Primary Care Physician Johnny OMALLEY, Dr. Huston Attending Physician Johnny OMALLEY, Dr. Hutson Primary Care Physician Johnny OMALLEY, Dr. Hutson Attending Physician Johnny OMALLEY, Dr. Hutson Referring Provider Roof DELI BAKERY CLERK-C, Jocelyne H Referring Provider Roof DELI BAKERY CLERK-C, Jocelyne H Attending Physician [phone] Solitario Padilla Attending Unavailable Johnny, Pietro Referring Unavailable Johnny, Pietro Primary Care Unavailable Johnny, Pietro Attending Unavailable Johnny, Pietro Primary Care Unavailable Johnny, Pietro Referring Unavailable CalabrettaJuan CarlosDimitry Attending Unavailable Johnny, Pietro Primary Care Unavailable DesaiLamberto Attending Unavailable Johnny, Pietro Primary Care Unavailable Roof DELI BAKERY CLERK, Jocelyne H Attending Unavailable Roof DELI BAKERY CLERK, Jocelyne H Referring Unavailable Johnny, Pietro Primary [...] Care Unavailable Johnny, Pietro Attending Unavailable Roof DELI BAKERY CLERK, Jocelyne H Referring Unavailable Johnny, Pietro Referring Unavailable Johnny, Pietro Attending Unavailable Johnny, Pietro Primary Care Unavailable Johnny, Pietro Referring Unavailable Johnny, Pietro Attending Unavailable Johnny, Pietro Primary Care Unavailable Solitario Padilla Attending Unavailable Johnny, Pietro Referring Unavailable Johnny, Pietro Primary Care Unavailable Esteban, Niles Attending Unavailable Johnny, Pietro Primary Care Unavailable Johnny, Pietro Referring Unavailable Esteban, Niles Attending Unavailable Johnny, Pietro Primary Care Unavailable Johnny, Pietro Primary Care Unavailable Jhonny, Pietro Referring Unavailable Roof DELI BAKERY CLERK, Jocelyne H Attending Unavailable Johnny, Pietro Referring [...] Attending Unavailable Johnny, Pietro Referring Unavailable Roof DELI BAKERY CLERK, Jocelyne H Attending Unavailable Johnny, Pietro Primary [...] Care Unavailable Johnny, Pietro Referring Unavailable Roof DELI BAKERY CLERK, Jocelyne Tijerina Attending Unavailable Johnny, Pietro Primary Care Unavailable Allergies Allergy Classification Reported Allergen(s) Allergy Type Date of Onset Reaction(s) Facility (2 sources) Penicillin; Translations: [penicillins] Drug Allergy [facility] (20 sources) Lisinopril Drug Allergy 02-17-20 22 cough [facility] (20 sources) Penicillins; Translations: [PENICILLINS] Allergy to substance 11-04-19 09 Other [facility] (20 sources) Spironolactone Drug Allergy 02-17-20 22 elevated blood sugar [facility] (8 sources) Adiawqx-Cll-Dxr Reductase Inhibitor Propensity to adverse reactions 04-27-20 25 myalgias [facility] (1 source) Lisinopril Drug Allergy 08-24-20 25 [facility] Repository (1 source) Spironolactone Drug Allergy 08-24-20 25 [facility] Repository (1 source) Afemxfh-Pty-Ldo Reductase Inhibitor Drug allergy (disorder) 08-24-20 25 [facility] Repository Medications Current Medications Medication Drug [...] Glucose Scanning Reade r (Freestyle Jean 2 [place]) misc (9 sources) Start: 02-05-2024 Flash Glucose Scanning [place] (Freestyle Jean 2 [place]) misc Active 0 .Route 1 February 05, 2024 12:00am As directed Start: 02-05-2024 Flash Glucose Scanning [place] (Freestyle Jean 2 [place]) misc Active 0 .Route 1 February 05, [...] EST, Height... Start Date: 12/17/20 Status: Ordered [place]-3 1050 mg oral capsule (2 sources) Start: 07-15-2020 [place]-3 1050 m g oral capsule Dose : 1,050 mg = 1 cap(s), Oral, qDay, # 90 cap(s), 0 Refill(s) Start Date: 07/15/20 Status: Ordered [place]-3 Fatty Acids (13 sources) Start: 08-20-2020 take 1000 mg by mouth once daily [place]-3 Fatty Acids Active 1000 MG PO DAILY August 20, 2020 9:18am Start: 08-20-2020 End: 10-18-2022 take 1000 mg by mouth once daily [place]-3 Fatty Acids Discontinued 1000 MG PO DAILY August 20, 2020 12:00am October 18, 2022 3:15pm Start: 08-20-2020 End: 10-18-2022 take 1000 mg by mouth once daily [place]-3 Fatty Acids Discontinued 1000 MG PO DAILY August 19, 2020 11:00pm October 18, 2022 2:15pm Start: 08-20-2020 take 1000 mg by mout h once daily [place]-3 Fatty Acids Active 1000 MG PO DAILY August 19, 2020 11:00pm Start: 08-20-2020 take 1000 mg by mout h once daily [place]-3 Fatty Acids Active 1000 MG PO DAILY August 20, 2020 12:00am rivaroxaban 2.5 mg oral tablet (4 sources) Factor Xa Inhibitor Start: 08-12-2021 Xarelto 2. 5 mg oral tablet Dose : 2.5 mg = 1 tab(s), Oral, BID, # 60 tab(s), 11 Refill(s), Pharmacy: [id number], 185.4, cm, 08/12/21 10:46:00 EDT, [...] qDayM, # 30 tab(s), 11 Refill(s), Pharmacy: [id number], 185.4, cm, 08/12/21 10:46:00 EDT, [...] Daily, # 30 tab(s), 11 Refill(s), Pharmacy: [id number], 185.5, cm, 07/24/20 20:26:00 EDT, [...] Start: 11-06-2023 End: 01-03-2024 Flash Glucose Scanning [place] (Freestyle Jean 14 Day [place]) misc (10 sources) Start: 01-22-2024 End: 02-05-2024 Flash Glucose Scanning [place] (Freestyle Jean 14 Day [place]) misc Discontinued 0 .Route 1 0 January 22, 2024 12:00am February 05, 2024 4:59pm As directed Start: 01-22-2024 End: 02-05-2024 Flash Glucose Scanning [place] r (Freestyle Jean 14 Day [place]) misc Discontinued 0 .Route 1 January 22, 2024 12:00am February 05, 2024 4:59pm As directed Start: 01-22-2024 Flash Glucose Scanning [place] (Freestyle Jean 14 Day [place]) misc Active 0 .Route 1 January 22, [...] 08-12-2021 End: 02-11-2024 Start: 04-21-2021 End: 09-21-2021 [place]-3 Fatty Acids 1,000 mg capsule (8 sources) Start: 08-20-2020 End: 10-18-2022 take 1 capsule by mouth once daily [place]-3 Fatty Acids 1,000 mg capsule Discontinued 1000 mg PO DAILY August 20, 2020 12:00am October 18, 2022 3:15pm Xzhly-5-Onr-Fish Oil 910-1,300 mg capsule,delayed release(DR/EC) (8 sources) Start: 05-23-2024 End: 01-01-2025 Dbhwg-9-Uqh-Fish Oil 910-1,300 mg capsule,delayed release(DR/EC) Discontinued 2 [...] Interpretation Reference Range Facility MR/BMS.LORENBon 08-24-2025 MR/BMS.IMB [facility] [address] [place] [address] OFFICE VISIT Date of Service: 08/24/25 MR#: [id number] Acct: [id number] Name: ALIX LEE Rep #: [id number] : 1960 Provider: Dr. Pietro ram MD Age/Sex: 65/M Location: [facility] Status: Signed Intake Vital Signs 08/10/25 07:51 [...] room air Intake Visit Reasons: Leg Discomfort Rn Iv Therapy Required: No Accompanied by: Self Is patient in pain?: No Allergies Penicillins (PCN) Allergy (Verified 08/24/25 13:34) Other Hmpcumt-TEE-DkK Reductase Inhibitor Adverse Reaction (Intermediate, Verified 08/24/25 13:34) myalgias lisinopril Adverse Reaction (Verified 08/24/25 13:34) cough spironolactone Adverse Reaction (Verified 08/24/25 13:34) elevated blood sugar Medications ???Medication ???Instructions ???Recorded ???Confirmed ???Type needle (disp) 18 G 18 gauge x 1 #100 ea 05/22/22 08/24/25 Rx (BD Regular [place]vel [place]) flash glucose scanning reader #1 ea 02/05/24 08/24/25 Rx (OneTouchEMR Jean 2 [place]) cholecalciferol (vitamin D3) 125 5,000 unit PO [...] pulmonary arterial hypertension 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 Normal [facility] Absolute lymphocyte countOrd ered By: Pietro Turner on 08-14-2025 Lymphocytes Auto (Unsp spec) [#/Vol] 1.02 10*3/uL 0.83-4.51 [facility] Anion gap in Serum or Plasma Ordered By: Pietro Turner on 08-14-2025 Anion gap [Moles/Vol] 15 mmol/L 03-12 [facility] Automated lymphocyte count a s percentage of total leukocytesOrdered By: Pietro Turner on 08-14-2025 Lymphocytes/100 WBC Auto (Unsp spec) 12.3 % Low [facility] BUN/creatinine ratioOrdered By: Pietro Turner on 08-14-2025 Urea nitrogen/Creatinine [Mass ratio] 18.4 mg/mg 08-17 [facility] Basophil percentageOrdered B y: Pietro Turner on 08-14-2025 Basophils/100 WBC (Bld) 0.6 % 0 [facility] Bilirubin, totalOrdered By: Pietro Turner on 08-14-2025 Bilirubin [Mass/Vol] 0.78 mg/dL 0.00-1.30 [facility] CBC W/Diff, Automatedon 07-29 Absolute Lymph 1.02 X10 3/uL Normal 0.83-4.51 [facility] Comment on above: Performed By: #### L 501.9985, L500.4050, L100.0100, L500.4100 #### [facility] [address] [place], [address] Absolute Neut 6.3 X10 3/uL Normal 2.0-7.7 [facility] Comment on above: Performed By: #### L 501.9985, L500.4050, L100.0100, L500.4100 #### [facility] [address] [place], [address] Basophils/100 WBC (Bld) 0.6 % Normal 0-1 [facility] Comment on above: Performed By: #### L 501.9985, L500.4050, L100.0100, L500.4100 #### [facility] [address] [place], [address] Eosinophils/100 WBC (Bld) 2.9 % Normal 0-5 [facility] Comment on above: Performed By: #### L 501.9985, L500.4050, L100.0100, L500.4100 #### [facility] [address] [place], [address] Erythrocyte distribution width (RBC) [Ratio] 13.2 % Normal 11.6-14.6 [facility] Comment on above: Performed By: #### L 501.9985, L500.4050, L100.0100, L500.4100 #### [facility] [address] [place], [address] Hematocrit (Bld) [Volume fraction] 42.1 % Normal 40-54 [facility] Comment on above: Performed By: #### L 501.9985, L500.4050, L100.0100, L500.4100 #### [facility] [address] [place], [address] Hemoglobin (Bld) [Mass/Vol] 14.5 g/dL Normal 13.0-16.5 [facility] Comment on above: Performed By: #### L 501.9985, L500.4050, L100.0100, L500.4100 #### [facility] [address] [place], [address] IG% 0.400 Normal 0.0-0.9 [facility] Comment on above: Result Comment: IG% - Immature Granulocytes (promyelocytes, myelocytes and metamyelocytes) > 1% indicates that a LEFT SHIFT is Present. Performed By: #### L 501.9985, L500.4050, L100.0100, L500.4100 #### [facility] [address] [place], [address] Lymphocytes/100 WBC (Bld) 12.3 % Low 19-41 [facility] Comment on above: Performed By: #### L 501.9985, L500.4050, L100.0100, L500.4100 #### [facility] [address] [place], [address] MCH (RBC) [Entitic mass] 30.0 pg Normal 27.0-32.0 [facility] Comment on above: Performed By: #### L 501.9985, L500.4050, L100.0100, L500.4100 #### [facility] [address] [place], [address] MCHC (RBC) [Mass/Vol] 34.4 g/dL Normal 32-36 [facility] Comment on above: Performed By: #### L 501.9985, L500.4050, L100.0100, L500.4100 #### [facility] [address] [place], [address] MCV (RBC) [Entitic vol] 87.2 fL Normal 80-94 [facility] Comment on above: Performed By: #### L 501.9985, L500.4050, L100.0100, L500.4100 #### [facility] [address] [place], [address] Monocytes/100 WBC (Bld) 7.5 % Normal 0-10 [facility] Comment on above: Performed By: #### L 501.9985, L500.4050, L100.0100, L500.4100 #### [facility] [address] [place], [address] Neutrophils/100 WBC (Bld) 76.3 % High 47-70 [facility] Comment on above: Performed By: #### L 501.9985, L500.4050, L100.0100, L500.4100 #### [facility] [address] [place], [address] Nucleated RBC (Bld) [#/Vol] 0 10*3/uL Normal 0-5 [facility] Comment on above: Performed By: #### L 501.9985, L500.4050, L100.0100, L500.4100 #### [facility] [address] [place], [address] Platelet mean volume (Bld) [Entitic vol] 9.4 fL Normal 6.2-12.0 [facility] Comment on above: Performed By: #### L 501.9985, L500.4050, L100.0100, L500.4100 #### [facility] [address] [place], [address] Platelets (Bld) [#/Vol] 288 10*3/uL Normal 150-450 [facility] Comment on above: Performed By: #### L 501.9985, L500.4050, L100.0100, L500.4100 #### [facility] [address] [place], [address] RBC (Bld) [#/Vol] 4.83 10*6/uL Normal 4.6-6.2 [facility] Comment on above: Performed By: #### L 501.9985, L500.4050, L100.0100, L500.4100 #### [facility] [address] [place], [address] RDW SD 40.7 fl Normal 35.1-43.9 [facility] Comment on above: Performed By: #### L 501.9985, L500.4050, L100.0100, L500.4100 #### [facility] [address] [place], [address] WBC (Bld) [#/Vol] 8.3 10*3/uL Normal 4.4-11.0 [facility] Comment on above: Performed By: #### L 501.9985, L500.4050, L100.0100, L500.4100 #### [facility] [address] [place], [address] CRPon 08-14-2025 C-REACTIVE PROT < 3.00 Normal 0.0-3.0 [facility] Comment on above: Performed By: #### L 101.9900, L501.6710 ####[facility] [address] [place], [address] Calculated very low density lipoprotein (VLDL) cholesterol measurementOrdered By: Pietro Turner on 08-14-2025 Calculated very low density lipoprotein (VLDL) cholesterol measurement 51 mg/dL High 5-40 [facility] Carbon dioxide, total [Moles /volume] in Central venous bloodOrdered By: Pietro Turner on 08-14-2025 CO2 [Moles/Vol] 21.5 mmol/L 21.0-32.0 [facility] Chloride assayOrdered By: Rohini Turner on 08-14-2025 Chloride [Moles/Vol] 100 mmol/L 98-108 [facility] Comprehensive Metabolic Prof ilon 08-14-2025 Albumin [Mass/Vol] 4.6 g/dL Normal 3.4-4.8 [facility] Comment on above: Performed By: #### L 501.9985, L500.4050, L100.0100, L500.4100 ####[facility] [address] [place], [address] Albumin/Globulin [Mass ratio] 1.7 {ratio} Normal 0.9-2.4 [facility] Comment on above: Performed By: #### L 501.9985, L500.4050, L100.0100, L500.4100 ####[facility] [address] [place], [address] ALK PHOS 115 U/L Normal 40-129 [facility] Comment on above: Performed By: #### L 501.9985, L500.4050, L100.0100, L500.4100 ####[facility] [address] [place], [address] ALT [Catalytic activity/Vol] 29 U/L Normal <=46 [facility] Comment on above: Performed By: #### L 501.9985, L500.4050, L100.0100, L500.4100 ####[facility] [address] [place], [address] AST [Catalytic activity/Vol] 26 U/L Normal <=37 [facility] Comment on above: Performed By: #### L 501.9985, L500.4050, L100.0100, L500.4100 ####[facility] [address] [place], [address] Bilirubin [Mass/Vol] 0.78 mg/dL Normal 0.00-1.30 [facility] Comment on above: Performed By: #### L 501.9985, L500.4050, L100.0100, L500.4100 ####[facility] [address] [place], [address] BUN/CRE 18.4 RATIO Normal 10-20 [facility] Comment on above: Performed By: #### L 501.9985, L500.4050, L100.0100, L500.4100 ####[facility] [address] [place], [address] Calcium [Mass/Vol] 9.8 mg/dL Normal 7.6-11.0 [facility] Comment on above: Performed By: #### L 501.9985, L500.4050, L100.0100, L500.4100 ####[facility] [address] [place], [address] Chloride [Moles/Vol] 100 mmol/L Normal 98-108 [facility] Comment on above: Performed By: #### L 501.9985, L500.4050, L100.0100, L500.4100 ####[facility] [address] [place], [address] CO2 [Moles/Vol] 21.5 mmol/L Normal 21.0-32.0 [facility] Comment on above: Performed By: #### L 501.9985, L500.4050, L100.0100, L500.4100 ####[facility] [address] [place], [address] Creatinine [Mass/Vol] 0.93 mg/dL Normal 0.70-1.20 [facility] Comment on above: Performed By: #### L 501.9985, L500.4050, L100.0100, L500.4100 ####[facility] [address] [place], [address] GAP 15 Normal 5-15 [facility] Comment on above: Performed By: #### L 501.9985, L500.4050, L100.0100, L500.4100 ####[facility] [address] [place], [address] GFR/1.73 sq M.predicted among non-blacks MDRD (S/P/Bld) [Vol rate/Area] 92 mL/min/{1.73_m2} Normal >60 [facility] Comment on above: Result Comment: mL/m in/1.73m2 CKD-EPI Creatinine Equation (2020) Performed By: #### L 501.9985, L500.4050, L100.0100, L500.4100 ####[facility] [address] [place], [address] Globulin (S) [Mass/Vol] 2.7 g/dL Normal 2.2-4.2 [facility] Comment on above: Performed By: #### L 501.9985, L500.4050, L100.0100, L500.4100 ####[facility] [address] [place], [address] Glucose [Mass/Vol] 134 mg/dL High 70-99 [facility] Comment on above: Performed By: #### L 501.9985, L500.4050, L100.0100, L500.4100 ####[facility] [address] [place], [address] Potassium [Moles/Vol] 4.2 mmol/L Normal 3.3-5.1 [facility] Comment on above: Performed By: #### L 501.9985, L500.4050, L100.0100, L500.4100 ####[facility] [address] [place], [address] Sodium [Moles/Vol] 137 mmol/L Normal 133-145 [facility] Comment on above: Performed By: #### L 501.9985, L500.4050, L100.0100, L500.4100 ####[facility] [address] [place], [address] T PROT 7.3 g/dL Normal 5.9-8.4 [facility] Comment on above: Performed By: #### L 501.9985, L500.4050, L100.0100, L500.4100 ####[facility] [address] [place], [address] Urea nitrogen [Mass/Vol] 17 mg/dL Normal 4-19 [facility] Comment on above: Performed By: #### L 501.9985, L500.4050, L100.0100, L500.4100 ####[facility] [address] [place], [place], [address] Eosinophil percentageOrdered By: Pietro Turner on 08-14-2025 Eosinophils/100 WBC (Bld) 2.9 % 0-5 [facility] Erythrocyte Sed Rateon 08-14 SED RATE 5 mm/hr Normal 0-20 [facility] Comment on above: Performed By: #### L 101.9900, L501.6710 ####[facility] [address] [place], [place], [address] Erythrocyte distribution wid th ratioOrdered By: Pietro Turner on 08-14-2025 Erythrocyte distribution width (RBC) [Ratio] 13.2 % 11.6-14.6 [facility] Erythrocyte distribution wid th standard deviationOrdered By: Pietro Turner on 08-14-2025 Erythrocyte distribution width (RBC) [Ratio] 40.7 fl 35.1-43.9 [facility] Erythrocyte sedimentation ra teOrdered By: Pietro Turner on 08-14-2025 ESR (Bld) [Velocity] 5 mm/h 0-20 [facility] Glomerular filtration rate ( GFR) estimation/1.73 sq m using serum, plasma, or whole bOrdered By: Pietro Turner on 08-14-2025 GFR/1.73 sq M.predicted among non-blacks MDRD (S/P/Bld) [Vol rate/Area] 92 mL/min/{1.73_m2} >60 [facility] Hematocrit Auto (Bld) [Volum e fraction]Ordered By: Pietro Tunrer on 08-14-2025 Hematocrit (Bld) [Volume fraction] 42.1 % 40-54 [facility] Hemoglobin A1con 08-14-2025 HbA1c (Bld) [Mass fraction] 6.0 % High <=5.6 [facility] Comment on above: Result Comment: Norm al < 5.7 % Prediabetic 5.7 - 6.4 % Diabetic >or= 6.5 % Please note range changes. Performed By: #### L 501.9985, L500.4050, L100.0100, L500.4100 ####[facility] [address] [place], [address] Hemoglobin A1c percentageOrd ered By: Pietro Turner on 08-14-2025 HbA1c (Bld) [Mass fraction] 6.0 % High <5.7 [facility] Hemoglobin measurementOrdere d By: Pietrochelsie Turner on 08-14-2025 Hemoglobin (Bld) [Mass/Vol] 14.5 g/dL 13.0-16.5 [facility] Immature granulocytes/100 WB C Auto (Bld)Ordered By: Pietrochelsie Turner on 08-14-2025 Immature granulocytes/100 WBC (Bld) 0.400 % 0.0-0.9 [facility] LDL calc ser/plasOrdered By: Pietro Turner on 08-14-2025 Cholesterol in LDL [Mass/Vol] -3 mg/dL [facility] Lipid Profileon 08-14-2025 CHOL:HDL 1.96 Normal [facility] Comment on above: Performed By: #### L 501.9985, L500.4050, L100.0100, L500.4100 ####[facility] [address] [place], [address] Cholesterol [Mass/Vol] 69 mg/dL Normal <=200 [facility] Comment on above: Result Comment: Chol esterol level, Desirable <200 mg/dL Borderline high cholesterol 200-239 mg/dL High cholesterol >=240 mg/dL Recommendations of the NCEP Adult Treatment Panel for the following risk-cutoff thresholds for the [place] population. Performed By: #### L 501.9985, L500.4050, L100.0100, L500.4100 ####[facility] [address] [place], [place], [id number] Cholesterol in HDL [Mass/Vol] 35 mg/dL Low [facility] Comment on above: Result Comment: Anna onal Cholesterol Education Program (NCEP) guidelines: <40 mg/dL: Low HDL-cholesterol (major risk factor for CHD) >= 60 mg/dL: High HDL-cholesterol (negative risk factor for CHD) HDL-cholesterol is affected by a number of factors, e.g. smoking, exercise, hormones, sex and age. Performed By: #### L 501.9985, L500.4050, L100.0100, L500.4100 ####[facility] [address] [place], [address] Cholesterol in LDL [Mass/Vol] -3 mg/dL Normal [facility] Comment on above: Result Comment: Bord dgehai=801-862 mg/dL Higher Owbp=546 mg/dL or greater Xiong Equation 2020 for LDL-C Performed By: #### L 501.9985, L500.4050, L100.0100, L500.4100 ####[facility] [address] [place], [address] Cholesterol in VLDL [Mass/Vol] 51 mg/dL High 5-40 [facility] Comment on above: Performed By: #### L 501.9985, L500.4050, L100.0100, L500.4100 ####[facility] [address] [place], [address] Triglyceride [Mass/Vol] 256 mg/dL High [facility] Comment on above: Result Comment: The drugs N-Acetylcysteine and Metamizole may falsely depress this assay. Normal range: <150 mg/dL Borderline High: 150-199 mg/dL High: 200-499 mg/dL Very High: >500 mg/dL Performed By: #### L 501.9985, L500.4050, L100.0100, L500.4100 ####[facility] [address] [place], [address] MCV (mean corpuscular volume ) determinationOrdered By: Pietro Turner on 08-14-2025 MCV (RBC) [Entitic vol] 87.2 fL 80-94 [facility] Mean corpuscular hemoglobin (MCH) determinationOrdered By: Pietro Turner on 08-14-2025 MCH (RBC) [Entitic mass] 30.0 pg 27.0-32.0 [facility] Monocyte percentageOrdered B y: Pietro Turner on 08-14-2025 Monocytes/100 WBC (Bld) 7.5 % 0-10 [facility] Neutrophil percentageOrdered By: Pietro Turner on 08-14-2025 Neutrophils/100 WBC (Bld) 76.3 % High 47-70 [facility] No Panel InformationOrdered By: Pietro Turner on 08-14-2025 26 U/L <38 [facility] Platelet countOrdered By: Rohini Turner on 08-14-2025 Platelets (Bld) [#/Vol] 288 10*3/uL 150-450 [facility] Potassium measurement (mass/ volume)Ordered By: Pietro Turner on 08-14-2025 Potassium (Unsp spec) [Mass/Vol] 4.2 mmol/L 3.3-5.1 [facility] RBC Auto (Bld) [#/Vol]Ordere d By: Pietro Turner on 08-14-2025 RBC (Bld) [#/Vol] 4.83 10*6/uL 4.6-6.2 [facility] Serum creatinine measurement (mass/volume)Ordered By: Pietro Turner on 08-14-2025 Creatinine [Mass/Vol] 0.93 mg/dL 0.70-1.20 [facility] Serum globulin measurementOr dered By: Pietro Turner on 08-14-2025 Globulin (S) [Mass/Vol] 2.7 g/dL 2.2-4.2 [facility] Serum glucose measurement (m ass/volume)Ordered By: Pietro Turner on 08-14-2025 Glucose [Mass/Vol] 134 mg/dL High 70-99 [facility] Serum or plasma C reactive p rotein measurement (mass/volume)Ordered By: Pietro Turner on 08-14-2025 CRP [Mass/Vol] mg/L 0.0-3.0 [facility] Serum or plasma alanine carrillo otransferase (ALT) measurementOrdered By: Pietro Turner on 08-14-2025 ALT [Catalytic activity/Vol] 29 U/L <47 [facility] Serum or plasma albumin michelle urement (mass/volume)Ordered By: Pietro Turner on 08-14-2025 Albumin [Mass/Vol] 4.6 g/dL 3.4-4.8 [facility] Serum or plasma albumin/glob ulin mass ratioOrdered By: Pietro Turner on 08-14-2025 Albumin/Globulin [Mass ratio] 1.7 {ratio} 0.9-2.4 [facility] Serum or plasma alkaline andres sphatase measurementOrdered By: Pietro Turner on 08-14-2025 ALP [Catalytic activity/Vol] 115 U/L 40-129 [facility] Serum or plasma calcium michelle urement (mass/volume)Ordered By: Pietro Turner on 08-14-2025 Calcium [Mass/Vol] 9.8 mg/dL 7.6-11.0 [facility] Serum or plasma cholesterol in HDL measurement (mass/volume)Ordered By: Pietro Turner on 08-14-2025 Cholesterol in HDL [Mass/Vol] 35 mg/dL Low >40 [facility] Serum or plasma cholesterol measurement (mass/volume)Ordered By: Pietro Turner on 08-14-2025 Cholesterol [Mass/Vol] 69 mg/dL <201 [facility] Serum or plasma urea nitroge n measurement (mass/volume)Ordered By: Pietro Turner on 08-14-2025 Urea nitrogen [Mass/Vol] 17 mg/dL 4-19 [facility] Sodium levelOrdered By: Carmen Turner on 08-14-2025 Sodium [Moles/Vol] 137 mmol/L 133-145 [facility] Total proteinOrdered By: Britni Turner on 08-14-2025 Protein [Mass/Vol] 7.3 g/dL 5.9-8.4 [facility] White blood cell (WBC) count Ordered By: Pietro Turner on 08-14-2025 WBC (Bld) [#/Vol] 8.3 10*3/uL 4.4-11.0 [facility] Cardiology Visit Reporton Cardiology Visit Report [facility] [address] [place] [address] OFFICE VISIT Date of Service: 08/10/25 MR#: [id number] Acct: [id number] Name: ALIX LEE Rep #: [id number] : 1960 Provider: MICHELLE koch Age/Sex: 65/M Location: [facility] Status: Signed HPI HPI History of Present [...] air Intake Visit Reasons: 9 M FU Rn Iv Therapy Required: No Is patient in pain?: No Allergies Penicillins (PCN) Allergy (Verified 08/10/25 13:38) Other Osqeima-QZQ-CsZ Reductase Inhibitor Adverse Reaction (Intermediate, Verified 08/10/25 13:38) myalgias lisinopril Adverse Reaction (Verified 08/10/25 13:38) cough spironolactone Adverse Reaction (Verified 08/10/25 13:38) elevated blood sugar Medications ???Medication ???Instructions ???Recorded ???Confirmed ???Type needle (disp) 18 G 18 gauge x 1 #100 ea 05/22/22 07/28/25 Rx (BD Regular Bevel [place]) flash glucose scanning reader #1 ea 02/05/24 07/28/25 Rx (FreeStyle Jean 2 [place]) cholecalciferol (vitamin D3) 125 5,000 unit PO [...] Q5-15M P (more content not included)... Normal [facility] MR/BMS.IMBon 07-28-2025 MR/BMS.IMB [facility] [address] [place] [address] OFFICE VISIT Date of Service: 07/28/25 MR#: [id number] Acct: [id number] Name: ALIX LEE Rep #: [id number] : 1960 Provider: Dr. Pietro ram MD Age/Sex: 65/M Location: [facility] [place] [facility] [place] Status: Signed Intake Vital Signs 06/17/25 15:11 [...] room air Intake Visit Reasons: Persistent Cough Rn Iv Therapy Required: No Accompanied by: Self Is patient in pain?: No Allergies Penicillins (PCN) Allergy (Verified 07/28/25 10:37) Other Ljogcyn-LIR-OzG Reductase Inhibitor Adverse Reaction (Intermediate, Verified 07/28/25 10:37) myalgias lisinopril Adverse Reaction (Verified 07/28/25 10:37) cough spironolactone Adverse Reaction (Verified 07/28/25 10:37) elevated blood sugar Medications ???Medication ???Instructions ???Recorded ???Confirmed ???Type needle (disp) 18 G 18 gauge x 1 #100 ea 05/22/22 07/28/25 Rx (BD Regular Bevel [place]) flash glucose scanning reader #1 ea 02/05/24 07/28/25 Rx (FreeStyle Jean 2 [place]) cholecalciferol (vitamin D3) 125 5,000 unit PO [...] pulmonary arterial hypertension 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 Normal [facility] Testosterone, Total / Freeon 06-29-2025 TESTOSTER,FREE 3.61 ng/dL Abnormal 5.00-21.00 [facility] Comment on above: Order Comment: N Performed By: #### L 100.0100, L500.4050, L3100.5310, L500.4100 ####[facility] [address] [place], [address] TESTOSTER,TOTAL 148 ng/dL Low 264-916 [facility] Comment on above: Order Comment: N Result Comment: Adul t male reference interval is based on a population of healthy nonobese males (BMI <30) between 19 and 39 years old. Rick et.al. JCEM 2017,102;2082-4112. PMID: [id number]. Performed By: #### L 100.0100, L500.4050, L3100.5310, L500.4100 ####[facility] [address] [place], [address] TESTOSTERONE,%F 2.44 Normal 1.50-4.20 [facility] Comment on above: Order Comment: N Result Comment: Perf ormed at: [facility] [address] [id number] Baseball Player: Geovanny Moore PhD, Phone: [phone] Performed at: [facility] [address] [id number] Baseball Player: Lyle Alves MD, Phone: [phone] Performed By: #### L 100.0100, L500.4050, L3100.5310, L500.4100 ####[facility] [address] [place], [address] CBC W/Diff, Automatedon 08- Absolute Neut Normal 2.0-7.7 [facility] Comment on above: Result Comment: RASHAD ENT SAID HE WAS ONLY SUPPOSED TO GET THIS TESTOST FT DONE Performed By: #### L 100.0100, L500.4050, L3100.5310, L500.4100 ####[facility] [address] [place], [address] HCT Normal 40-54 [facility] Comment on above: Result Comment: RASHAD ENT SAID HE WAS ONLY SUPPOSED TO GET THIS TESTOST FT DONE Performed By: #### L 100.0100, L500.4050, L3100.5310, L500.4100 ####[facility] [address] [place], [address] HGB Normal 13.0-16.5 [facility] Comment on above: Result Comment: RASHAD DAWSON SAID HE WAS ONLY SUPPOSED TO GET THIS TESTOST FT DONE Performed By: #### L 100.0100, L500.4050, L3100.5310, L500.4100 ####[facility] [address] [place], [address] MCH Normal 27.0-32.0 [facility] Comment on above: Result Comment: RASHAD DAWSON SAID HE WAS ONLY SUPPOSED TO GET THIS TESTOST FT DONE Performed By: #### L 100.0100, L500.4050, L3100.5310, L500.4100 ####[facility] [address] [place], [address] MCHC Normal 32-36 [facility] Comment on above: Result Comment: RASHAD DAWSON SAID HE WAS ONLY SUPPOSED TO GET THIS TESTOST FT DONE Performed By: #### L 100.0100, L500.4050, L3100.5310, L500.4100 ####[facility] [address] [place], [address] MCV Normal 80-94 [facility] Comment on above: Result Comment: RASHAD DAWSON SAID HE WAS ONLY SUPPOSED TO GET THIS TESTOST FT DONE Performed By: #### L 100.0100, L500.4050, L3100.5310, L500.4100 ####[facility] [address] [place], [address] NEUT% Normal 47-70 [facility] Comment on above: Result Comment: RASHAD ENT SAID HE WAS ONLY SUPPOSED TO GET THIS TESTOST FT DONE Performed By: #### L 100.0100, L500.4050, L3100.5310, L500.4100 ####[facility] [address] [place], [address] PLT Normal 150-450 [facility] Comment on above: Result Comment: RASHAD ENT SAID HE WAS ONLY SUPPOSED TO GET THIS TESTOST FT DONE Performed By: #### L 100.0100, L500.4050, L3100.5310, L500.4100 ####[facility] [address] [place], [address] RBC Normal 4.6-6.2 [facility] Comment on above: Result Comment: RASHAD ENT SAID HE WAS ONLY SUPPOSED TO GET THIS TESTOST FT DONE Performed By: #### L 100.0100, L500.4050, L3100.5310, L500.4100 ####[facility] [address] [place], [address] RDW CV Normal 11.6-14.6 [facility] Comment on above: Result Comment: RASHAD ENT SAID HE WAS ONLY SUPPOSED TO GET THIS TESTOST FT DONE Performed By: #### L 100.0100, L500.4050, L3100.5310, L500.4100 ####[facility] [address] [place], [address] RDW SD Normal 35.1-43.9 [facility] Comment on above: Result Comment: RASHAD ENT SAID HE WAS ONLY SUPPOSED TO GET THIS TESTOST FT DONE Performed By: #### L 100.0100, L500.4050, L3100.5310, L500.4100 ####[facility] [address] [place], [address] WBC Normal 4.4-11.0 [facility] Comment on above: Result Comment: RASHAD ENT SAID HE WAS ONLY SUPPOSED TO GET THIS TESTOST FT DONE Performed By: #### L 100.0100, L500.4050, L3100.5310, L500.4100 ####[facility] [address] [place], [address] Comprehensive Metabolic Prof roseline 06-24-2025 ALB Normal 3.4-4.8 [facility] Comment on above: Result Comment: RASHAD ENT SAID HE WAS ONLY SUPPOSED TO GET THIS TESTOST FT DONE Performed By: #### L 100.0100, L500.4050, L3100.5310, L500.4100 ####[facility] [address] [place], [address] ALK PHOS Normal 40-129 [facility] Comment on above: Result Comment: RASHAD ENT SAID HE WAS ONLY SUPPOSED TO GET THIS TESTOST FT DONE Performed By: #### L 100.0100, L500.4050, L3100.5310, L500.4100 ####[facility] [address] [place], [address] ALT Normal <=46 [facility] Comment on above: Result Comment: RASHAD ENT SAID HE WAS ONLY SUPPOSED TO GET THIS TESTOST FT DONE Performed By: #### L 100.0100, L500.4050, L3100.5310, L500.4100 ####[facility] [address] [place], [address] AST Normal <=37 [facility] Comment on above: Result Comment: RASHAD ENT SAID HE WAS ONLY SUPPOSED TO GET THIS TESTOST FT DONE Performed By: #### L 100.0100, L500.4050, L3100.5310, L500.4100 ####[facility] [address] [place], [address] BUN Normal 4-19 [facility] Comment on above: Result Comment: RASHAD ENT SAID HE WAS ONLY SUPPOSED TO GET THIS TESTOST FT DONE Performed By: #### L 100.0100, L500.4050, L3100.5310, L500.4100 ####[facility] [address] [place], [address] BUN/CRE Normal 10-20 [facility] Comment on above: Result Comment: RASHAD ENT SAID HE WAS ONLY SUPPOSED TO GET THIS TESTOST FT DONE Performed By: #### L 100.0100, L500.4050, L3100.5310, L500.4100 ####[facility] [address] [place], [address] Calcium Normal 7.6-11.0 [facility] Comment on above: Result Comment: RASHAD ENT SAID HE WAS ONLY SUPPOSED TO GET THIS TESTOST FT DONE Performed By: #### L 100.0100, L500.4050, L3100.5310, L500.4100 ####[facility] [address] [place], [address] CL Normal 98-108 [facility] Comment on above: Result Comment: RASHAD ENT SAID HE WAS ONLY SUPPOSED TO GET THIS TESTOST FT DONE Performed By: #### L 100.0100, L500.4050, L3100.5310, L500.4100 ####[facility] [address] [place], [address] CO2 Normal 21.0-32.0 [facility] Comment on above: Result Comment: RASHAD ENT SAID HE WAS ONLY SUPPOSED TO GET THIS TESTOST FT DONE Performed By: #### L 100.0100, L500.4050, L3100.5310, L500.4100 ####[facility] [address] [place], [address] CREAT,SERUM Normal 0.70-1.20 [facility] Comment on above: Result Comment: RASHAD ENT SAID HE WAS ONLY SUPPOSED TO GET THIS TESTOST FT DONE Performed By: #### L 100.0100, L500.4050, L3100.5310, L500.4100 ####[facility] [address] [place], [address] eGFR Normal >60 [facility] Comment on above: Result Comment: RASHAD ENT SAID HE WAS ONLY SUPPOSED TO GET THIS TESTOST FT DONE Performed By: #### L 100.0100, L500.4050, L3100.5310, L500.4100 ####[facility] [address] [place], [address] GAP Normal 5-15 [facility] Comment on above: Result Comment: RASHAD ENT SAID HE WAS ONLY SUPPOSED TO GET THIS TESTOST FT DONE Performed By: #### L 100.0100, L500.4050, L3100.5310, L500.4100 ####[facility] [address] [place], [address] GLU Normal 70-99 [facility] Comment on above: Result Comment: RASHAD ENT SAID HE WAS ONLY SUPPOSED TO GET THIS TESTOST FT DONE Performed By: #### L 100.0100, L500.4050, L3100.5310, L500.4100 ####[facility] [address] [place], [address] Potassium Normal 3.3-5.1 [facility] Comment on above: Result Comment: RASHAD ENT SAID HE WAS ONLY SUPPOSED TO GET THIS TESTOST FT DONE Performed By: #### L 100.0100, L500.4050, L3100.5310, L500.4100 ####[facility] [address] [place], [address] T BILI Normal 0.00-1.30 [facility] Comment on above: Result Comment: RASHAD ENT SAID HE WAS ONLY SUPPOSED TO GET THIS TESTOST FT DONE Performed By: #### L 100.0100, L500.4050, L3100.5310, L500.4100 ####[facility] [address] [place], [address] T PROT Normal 5.9-8.4 [facility] Comment on above: Result Comment: RASHAD ENT SAID HE WAS ONLY SUPPOSED TO GET THIS TESTOST FT DONE Performed By: #### L 100.0100, L500.4050, L3100.5310, L500.4100 ####[facility] [address] [place], [address] Comprehensive Metabolic Profil Normal 133-145 [facility] Comment on above: Result Comment: RASHAD DAWSON SAID HE WAS ONLY SUPPOSED TO GET THIS TESTOST FT DONE Performed By: #### L 100.0100, L500.4050, L3100.5310, L500.4100 ####[facility] [address] [place], [address] Free testosterone percentage Ordered By: Pietro Turner on 06-24-2025 Testosterone Free/Testosterone.totleonor l [Mass fraction] 2.44 % 1.50-4.20 [facility] Comment on above: Performed at: [address] [id number] Director: Geovanny oMore PhD, Phone: [phone] at: [facility] [address] [id number] Director: Lyle Alves MD, Phone: [phone] Lipid Profileon 06-24-2025 TRIG Normal [facility] Comment on above: Result Comment: RASHAD DAWSON SAID HE WAS ONLY SUPPOSED TO GET THIS TESTOST FT DONE The drugs N-Acetylcysteine and Metamizole may falsely depress this assay. Performed By: #### L 100.0100, L500.4050, L3100.5310, L500.4100 ####[facility] [address] [place], [address] CHOL Normal <=200 [facility] Comment on above: Result Comment: RASHAD DAWSON SAID HE WAS ONLY SUPPOSED TO GET THIS TESTOST FT DONE Performed By: #### L 100.0100, L500.4050, L3100.5310, L500.4100 ####[facility] [address] [place], [address] CHOL:HDL Normal [facility] Comment on above: Result Comment: RASHAD ENT SAID HE WAS ONLY SUPPOSED TO GET THIS TESTOST FT DONE Performed By: #### L 100.0100, L500.4050, L3100.5310, L500.4100 ####[facility] [address] [place], [address] CLDL Normal [facility] Comment on above: Result Comment: RASHAD ENT SAID HE WAS ONLY SUPPOSED TO GET THIS TESTOST FT DONE Performed By: #### L 100.0100, L500.4050, L3100.5310, L500.4100 ####[facility] [address] [place], [address] HDL Normal [facility] Comment on above: Result Comment: RASHAD ENT SAID HE WAS ONLY SUPPOSED TO GET THIS TESTOST FT DONE Performed By: #### L 100.0100, L500.4050, L3100.5310, L500.4100 ####[facility] [address] [place], [address] VLDL Normal 5-40 [facility] Comment on above: Result Comment: RASHAD ENT SAID HE WAS ONLY SUPPOSED TO GET THIS TESTOST FT DONE Performed By: #### L 100.0100, L500.4050, L3100.5310, L500.4100 ####[facility] [address] [place], [address] Serum or plasma free testost erone measurement (mass/volume)Ordered By: Pietro Turner on 06-24-2025 Testosterone Free [Mass/Vol] 3.61 ng/dL Low 5.00-21.00 [facility] Testosterone, totalOrdered B y: Pietro Turner on 06-24-2025 Testosterone [Mass/Vol] 148 ng/dL Low 264-916 [facility] Comment on above: Adult male reference interval is based on a population ofhealthy nonobese males (BMI <30) between 19 and 39 yearsold. Rick et.al. JCEM 2017,102;4294-7383. PMID:[id number]. Testosterone, Total / Freeon 06-23-2025 TESTOSTER,FREE 10.85 ng/dL Normal 5.00-21.00 [facility] Comment on above: Order Comment: N Performed By: #### L 502.0500, L500.4050, L501.9985, L3100.5310 #### [facility] [address] [place], [address] TESTOSTER,TOTAL 450 ng/dL Normal 264-916 [facility] Comment on above: Order Comment: N Result Comment: Adul t male reference interval is based on a population of healthy nonobese males (BMI <30) between 19 and 39 years old. Rick et.al. JCEM 2017,102;7312-8067. PMID: [id number]. Performed By: #### L 502.0500, L500.4050, L501.9985, L3100.5310 #### [facility] [address] [place], [address] TESTOSTERONE,%F 2.41 Normal 1.50-4.20 [facility] Comment on above: Order Comment: N Result Comment: Perf ormed at: [facility] [address] [id number] Baseball Player: Geovanny Moore PhD, Phone: [phone] Performed at: [facility] [address] [id number] Baseball Player: Lyle Alves MD, Phone: [phone] Performed By: #### L 502.0500, L500.4050, L501.9985, L3100.5310 #### [facility] [address] [place], [address] Rolando 06-17-2025 /BRIDGETTE.TIFFANIE [facility] [address] [place] [address]. [address] [place] [address] OFFICE VISIT Date of Service: 06/17/25 MR#: [id number] Acct: [id number] Name: ALIX LEE Rep #: [id number] : 1960 Provider: Dr. Pietro ram MD Age/Sex: 65/M Location: [facility] [place] [facility] [place] Status: Signed Intake Vital [...] Hip/Leg Pain Chief Complaint: Rt Hip/Leg pain Rn Iv Therapy Required: No Accompanied by: Self Is patient in pain?: No Allergies Penicillins (PCN) Allergy (Verified 06/17/25 15:05) Other Ijstkbh-IKM-AxK Reductase Inhibitor Adverse Reaction (Intermediate, Verified 06/17/25 15:05) myalgias lisinopril Adverse Reaction (Verified 06/17/25 15:05) cough spironolactone Adverse Reaction (Verified 06/17/25 15:05) elevated blood sugar Medications ???Medication ???Instructions ???Recorded ???Confirmed ???Type needle (disp) 18 G 18 gauge x 1 #100 ea 05/22/22 06/17/25 Rx (BD Regular Bevel [place]) flash glucose scanning reader #1 ea 02/05/24 06/17/25 Rx (FreeStyle Jean 2 [place]) cholecalciferol (vitamin D3) 125 5,000 unit PO [...] pulmonary arterial hypertension 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 Normal [facility] Anion gap in Serum or Plasma Ordered By: Pietro Turner on 06-15-2025 Anion gap [Moles/Vol] 14 mmol/L 5-15 [facility] BUN/creatinine ratioOrdered By: Pietro Turner on 06-15-2025 Urea nitrogen/Creatinine [Mass ratio] 17.2 mg/mg 10- [facility] Bilirubin directOrdered By: Jocelyne Dickey on 06-15-2025 Bilirubin.direct [Mass/Vol] 0.19 mg/dL 0.00-0.30 [facility] Bilirubin, totalOrdered By: Jocelyne Dickey on 06-15-2025 Bilirubin [Mass/Vol] 0.35 mg/dL 0.00-1.30 [facility] Calculated very low density lipoprotein (VLDL) cholesterol measurementOrdered By: Jocelyne Dickey on 06-15-2025 Calculated very low density lipoprotein (VLDL) cholesterol measurement 69 mg/dL High 5-40 [facility] Carbon dioxide, total [Moles /volume] in Central venous bloodOrdered By: Pietro Turner on 06-15-2025 CO2 [Moles/Vol] 22.4 mmol/L 21.0-32.0 [facility] Chloride assayOrdered By: Rohini Turner on 06-15-2025 Chloride [Moles/Vol] 101 mmol/L 98-108 [facility] Comprehensive Metabolic Prof ilon 06-15-2025 Albumin [Mass/Vol] 4.2 g/dL Normal 3.4-4.8 [facility] Comment on above: Performed By: #### L 502.0500, L500.4050, L501.9985, L3100.5310 #### [facility] [address] [place], [address] Performed By: #### L 500.4100, L500.3400 ####[facility] [address] [place], [address] Albumin/Globulin [Mass ratio] 1.9 {ratio} Normal 0.9-2.4 [facility] Comment on above: Performed By: #### L 502.0500, L500.4050, L501.9985, L3100.5310 #### [facility] [address] [place], [address] ALK PHOS 112 U/L Normal 40-129 [facility] Comment on above: Performed By: #### L 502.0500, L500.4050, L501.9985, L3100.5310 #### [facility] [address] [place], [address] ALT [Catalytic activity/Vol] 33 U/L Normal <=46 [facility] Comment on above: Performed By: #### L 502.0500, L500.4050, L501.9985, L3100.5310 #### [facility] [address] [place], [address] Performed By: #### L 500.4100, L500.3400 ####[facility] [address] [place], [address] AST [Catalytic activity/Vol] 32 U/L Normal <=37 [facility] Comment on above: Performed By: #### L 502.0500, L500.4050, L501.9985, L3100.5310 #### [facility] [address] [place], [address] Bilirubin [Mass/Vol] 0.33 mg/dL Normal 0.00-1.30 [facility] Comment on above: Performed By: #### L 502.0500, L500.4050, L501.9985, L3100.5310 #### [facility] [address] [place], [address] BUN/CRE 17.2 RATIO Normal 10-20 [facility] Comment on above: Performed By: #### L 502.0500, L500.4050, L501.9985, L3100.5310 #### [facility] [address] [place], [address] Calcium [Mass/Vol] 9.2 mg/dL Normal 7.6-11.0 [facility] Comment on above: Performed By: #### L 502.0500, L500.4050, L501.9985, L3100.5310 #### [facility] [address] [place], [address] Chloride [Moles/Vol] 101 mmol/L Normal 98-108 [facility] Comment on above: Performed By: #### L 502.0500, L500.4050, L501.9985, L3100.5310 #### [facility] [address] [place], [address] CO2 [Moles/Vol] 22.4 mmol/L Normal 21.0-32.0 [facility] Comment on above: Performed By: #### L 502.0500, L500.4050, L501.9985, L3100.5310 #### [facility] [address] [place], [address] Creatinine [Mass/Vol] 0.98 mg/dL Normal 0.70-1.20 [facility] Comment on above: Performed By: #### L 502.0500, L500.4050, L501.9985, L3100.5310 #### [facility] [address] [place], [address] GAP 14 Normal 5-15 [facility] Comment on above: Performed By: #### L 502.0500, L500.4050, L501.9985, L3100.5310 #### [facility] [address] [place], [address] GFR/1.73 sq M.predicted among non-blacks MDRD (S/P/Bld) [Vol rate/Area] 87 mL/min/{1.73_m2} Normal >60 [facility] Comment on above: Result Comment: mL/m in/1.73m2 CKD-EPI Creatinine Equation (2020) Performed By: #### L 502.0500, L500.4050, L501.9985, L3100.5310 #### [facility] [address] [place], [address] Globulin (S) [Mass/Vol] 2.3 g/dL Normal 2.2-4.2 [facility] Comment on above: Performed By: #### L 502.0500, L500.4050, L501.9985, L3100.5310 #### [facility] [address] [place], [address] Performed By: #### L 500.4100, L500.3400 ####[facility] [address] [place], [address] Glucose [Mass/Vol] 209 mg/dL High 70-99 [facility] Comment on above: Performed By: #### L 502.0500, L500.4050, L501.9985, L3100.5310 #### [facility] [address] [place], [address] Potassium [Moles/Vol] 3.6 mmol/L Normal 3.3-5.1 [facility] Comment on above: Performed By: #### L 502.0500, L500.4050, L501.9985, L3100.5310 #### [facility] [address] [place], [address] Sodium [Moles/Vol] 138 mmol/L Normal 133-145 [facility] Comment on above: Performed By: #### L 502.0500, L500.4050, L501.9985, L3100.5310 #### [facility] [address] [place], [address] T PROT 6.5 g/dL Normal 5.9-8.4 [facility] Comment on above: Performed By: #### L 502.0500, L500.4050, L501.9985, L3100.5310 #### [facility] [address] [place], [address] Performed By: #### L 500.4100, L500.3400 ####[facility] [address] [place], [address] Urea nitrogen [Mass/Vol] 17 mg/dL Normal 4-19 [facility] Comment on above: Performed By: #### L 502.0500, L500.4050, L501.9985, L3100.5310 #### [facility] [address] [place], [address] Free testosterone percentage Ordered By: Pietro Turner on 06-15-2025 Testosterone Free/Testosterone.tota l [Mass fraction] 2.41 % 1.50-4.20 [facility] Comment on above: Performed at: - [address] [id number] Director: Geovanny Moore PhD, Phone: [phone] at: [address] [id number] Director: Lyle Alves MD, Phone: [phone] Glomerular filtration rate ( GFR) estimation/1.73 sq m using serum, plasma, or whole bOrdered By: Pietro Turner on 06-15-2025 GFR/1.73 sq M.predicted among non-blacks MDRD (S/P/Bld) [Vol rate/Area] 87 mL/min/{1.73_m2} >60 [facility] Comment on above: mL/min/1.73m2 CKD-EP I Creatinine Equation (2020) Hemoglobin A1con 06-15-2025 HbA1c (Bld) [Mass fraction] 5.9 % High <=5.6 [facility] Comment on above: Result Comment: Norm al < 5.7 % Prediabetic 5.7 - 6.4 % Diabetic >or= 6.5 % Please note range changes. Performed By: #### L 502.0500, L500.4050, L501.9985, L3100.5310 #### [facility] [address] [place], [address] Hemoglobin A1c percentageOrd ered By: Pietro Turner on 06-15-2025 HbA1c (Bld) [Mass fraction] 5.9 % High <5.7 [facility] Comment on above: Normal < 5.7 % Predi abetic 5.7 - 6.4 % Diabetic >or= 6.5 % Please note range changes. LDL calc ser/plasOrdered By: Jocelyne Dickey on 06-15-2025 Cholesterol in LDL [Mass/Vol] -34 mg/dL [facility] Comment on above: Hopupeoptf=939-248 m g/dL & Higher Fcjc=403 mg/dL or greaterFriedwald Equation for LDL-C Laboratory - Chemistry and C hemistry - challengeOrdered By: Jocelyne Dickey on 06-15-2025 AST [Catalytic activity/Vol] 33 U/L <38 [facility] Lipid Profileon 06-15-2025 CHOL:HDL 1.83 Normal [facility] Comment on above: Performed By: #### L 502.0500, L500.4050, L501.9985, L3100.5310 #### [facility] [address] [place], [address] Cholesterol [Mass/Vol] 78 mg/dL Normal <=200 [facility] Comment on above: Result Comment: Chol esterol level, Desirable <200 mg/dL Borderline high cholesterol 200-239 mg/dL High cholesterol >=240 mg/dL Recommendations of the NCEP Adult Treatment Panel for the following risk-cutoff thresholds for the [place] population. Performed By: #### L 502.0500, L500.4050, L501.9985, L3100.5310 #### [facility] [address] [place], [address] Cholesterol in HDL [Mass/Vol] 43 mg/dL Normal [facility] Comment on above: Result Comment: Anna onal Cholesterol Education Program (NCEP) guidelines: <40 mg/dL: Low HDL-cholesterol (major risk factor for CHD) >= 60 mg/dL: High HDL-cholesterol (negative risk factor for CHD) HDL-cholesterol is affected by a number of factors, e.g. smoking, exercise, hormones, sex and age. Performed By: #### L 502.0500, L500.4050, L501.9985, L3100.5310 #### [facility] [address] [place], [address] Cholesterol in LDL [Mass/Vol] -34 mg/dL Normal [facility] Comment on above: Result Comment: Bord bhbfau=245-785 mg/dL Higher Qbnl=713 mg/dL or greater Friedwald Equation for LDL-C Performed By: #### L 502.0500, L500.4050, L501.9985, L3100.5310 #### [facility] [address] [place], [address] Cholesterol in VLDL [Mass/Vol] 69 mg/dL High 5-40 [facility] Comment on above: Performed By: #### L 502.0500, L500.4050, L501.9985, L3100.5310 #### [facility] [address] [place], [address] Triglyceride [Mass/Vol] 346 mg/dL High [facility] Comment on above: Result Comment: The drugs N-Acetylcysteine and Metamizole may falsely depress this assay. Normal range: <150 mg/dL Borderline High: 150-199 mg/dL High: 200-499 mg/dL Very High: >500 mg/dL Performed By: #### L 502.0500, L500.4050, L501.9985, L3100.5310 #### [facility] [address] [place], [address] Liver Profileon 06-15-2025 ALK PHOS 113 U/L Normal 40-129 [facility] Comment on above: Performed By: #### L 500.4100, L500.3400 ####[facility] [address] [place], [address] AST [Catalytic activity/Vol] 33 U/L Normal <=37 [facility] Comment on above: Performed By: #### L 500.4100, L500.3400 ####[facility] [address] [place], [address] Bilirubin [Mass/Vol] 0.35 mg/dL Normal 0.00-1.30 [facility] Comment on above: Performed By: #### L 500.4100, L500.3400 ####[facility] [address] [place], [address] Bilirubin.direct [Mass/Vol] 0.19 mg/dL Normal 0.00-0.30 [facility] Comment on above: Performed By: #### L 500.4100, L500.3400 ####[facility] [address] [place], [address] Microalbumin,Random Urineon 06-15-2025 MICROALBUMIN,UR 13.9 mg/L Normal <20 mg/L [facility] Comment on above: Performed By: #### L 502.0500, L500.4050, L501.9985, L3100.5310 #### [facility] [place], [address] No Panel InformationOrdered By: Jocelyne Dickey on 06-15-2025 33 U/L <38 [facility] Potassium measurement (mass/ volume)Ordered By: Pietro Turner on 06-15-2025 Potassium (Unsp spec) [Mass/Vol] 3.6 mmol/L 3.3-5.1 [facility] Screening total cholesterol/ high density lipoprotein (HDL) cholesterol ratioOrdered By: Jocelyne Dickey on 06-15-2025 Cholesterol.total/Chol esterol in HDL [Mass ratio] 1.83 {ratio} [facility] Serum creatinine measurement (mass/volume)Ordered By: Pietro Turner on 06-15-2025 Creatinine [Mass/Vol] 0.98 mg/dL 0.70-1.20 [facility] Serum globulin measurementOr dered By: Jocelyne Dickey on 06-15-2025 Globulin (S) [Mass/Vol] 2.3 g/dL 2.2-4.2 [facility] Serum glucose measurement (m ass/volume)Ordered By: Pietro Turner on 06-15-2025 Glucose [Mass/Vol] 209 mg/dL High 70-99 [facility] Serum or plasma alanine carrillo otransferase (ALT) measurementOrdered By: Jocelyne Dickey on 06-15-2025 ALT [Catalytic activity/Vol] 33 U/L <47 [facility] Serum or plasma albumin michelle urement (mass/volume)Ordered By: Jocelyne Dickey on 06-15-2025 Albumin [Mass/Vol] 4.2 g/dL 3.4-4.8 [facility] Serum or plasma albumin/glob ulin mass ratioOrdered By: Pietro Turner on 06-15-2025 Albumin/Globulin [Mass ratio] 1.9 {ratio} 0.9-2.4 [facility] Serum or plasma alkaline andres sphatase measurementOrdered By: Jocelyne Dickey on 06-15-2025 ALP [Catalytic activity/Vol] 113 U/L 40-129 [facility] Serum or plasma calcium michelle urement (mass/volume)Ordered By: Pietro Turner on 06-15-2025 Calcium [Mass/Vol] 9.2 mg/dL 7.6-11.0 [facility] Serum or plasma cholesterol in HDL measurement (mass/volume)Ordered By: Jocelyne Dickey on 06-15-2025 Cholesterol in HDL [Mass/Vol] 43 mg/dL >40 [facility] Comment on above: National Cholesterol Education Program (NCEP) guidelines:<40 mg/dL: Low HDL-cholesterol (major risk factor for CHD)>= 60 mg/dL: High HDL-cholesterol (negative risk factor for CHD)HDL-cholesterol is affected by a number of factors, e.g. smoking, exercise, hormones, sex and age. Serum or plasma cholesterol measurement (mass/volume)Ordered By: Jocelyne Dickey on 06-15-2025 Cholesterol [Mass/Vol] 78 mg/dL <201 [facility] Comment on above: Cholesterol level, D esirable <200 mg/dLBorderline high cholesterol 200-239 mg/dLHigh cholesterol >=240 mg/dLRecommendations of the NCEP Adult Treatment Panel for the following risk-cutoff thresholds for the [place] population. Serum or plasma free testost erone measurement (mass/volume)Ordered By: Pietro Turner on 06-15-2025 Testosterone Free [Mass/Vol] 10.85 ng/dL 5.00-21.00 [facility] Serum or plasma urea nitroge n measurement (mass/volume)Ordered By: Pietro Turner on 06-15-2025 Urea nitrogen [Mass/Vol] 17 mg/dL 4-19 [facility] Sodium levelOrdered By: Carmen Turner on 06-15-2025 Sodium [Moles/Vol] 138 mmol/L 133-145 [facility] Testosterone, totalOrdered B y: Pietro Turner on 06-15-2025 Testosterone [Mass/Vol] 450 ng/dL 264-916 [facility] Comment on above: Adult male reference interval is based on a population ofhealthy nonobese males (BMI <30) between 19 and 39 yearsold. chava Cabrera.al. JCEM 2017,102;0092-8688. PMID:[id number]. Total proteinOrdered By: Adalberto Dickey on 06-15-2025 Protein [Mass/Vol] 6.5 g/dL 5.9-8.4 [facility] Triglycerides measurementOrd ered By: Jocelyne Dickey on 06-15-2025 Triglyceride [Mass/Vol] 346 mg/dL High <199 [facility] Comment on above: The drugs N-Acetylcy steine and Metamizole may falsely depress this assay. Normal range: <150 mg/dLBorderline High: 150-199 mg/dLHigh: 200-499 mg/dLVery High: >500 mg/dL Urine albumin measurement wi th detection limit of 20 mg/L or less (mass/volume)Ordered By: Pietro Turner on 06-15-2025 Albumin DL <= 20 mg/L (U) [Mass/Vol] 13.9 mg/L <20 mg/L [facility] Bilirubin Test strip Ql (U)O rdered By: Pietro Turner on 05-18-2025 Bilirubin Ql (U) Negative Negative [facility] Ketones Test strip Ql (U)Ord ered By: Pietro Turner on 05-18-2025 Ketones Ql (U) Negative Negative [facility] - Chemistry and C hemistry - challengeOrdered By: Pietro Turner on 05-18-2025 Bilirubin Ql (U) Negative [facility] Glucose Ql (U) Negative [facility] Ketones Ql (U) Negative [facility] pH (U) 6.0 [pH] [facility] Specific gravity (U) [Rel density] 1.025 [facility] Urobilinogen (U) [Mass/Vol] 0.3847881 mg/dL [facility] - Hematology and Cell countsOrdered By: Pietor Turner on 05-18-2025 Hemoglobin Ql (U) Negative [facility] - Specimen inform ationOrdered By: Pietro Turner on 05-18-2025 Clarity (U) Clear [facility] Color (U) YELLOW [facility] - UrinalysisOrder ed By: Pietro Turner on 05-18-2025 Nitrite Ql (U) Negative [facility] Protein Ql (U) Negative [facility] MR/BMSJanel 05-18-2025 MR/BMS.TIFFANIE [facility] [address] [place] [address] OFFICE VISIT Date of Service: 05/18/25 MR#: [id number] Acct: [id number] Name: ALIX LEE Rep #: [id number] : 1960 Provider: Dr. Pietro ram MD Age/Sex: 65/M Location[place] [facility] [place] [facility] [place] Status: Signed Intake Vital Signs 04/27/25 10:34 [...] Reasons: Possible UTI Chief Complaint: Possible UTI Rn Iv Therapy Required: No Accompanied by: Self Is patient in pain?: No Allergies Penicillins (PCN) Allergy (Verified 05/18/25 11:36) Other Qtykdol-PLI-LfE Reductase Inhibitor Adverse Reaction (Intermediate, Verified 05/18/25 11:36) myalgias lisinopril Adverse Reaction (Verified 05/18/25 11:36) cough spironolactone Adverse Reaction (Verified 05/18/25 11:36) elevated blood sugar Medications ???Medication ???Instructions ???Recorded ???Confirmed ???Type needle (disp) 18 G 18 gauge x 1 #100 ea 05/22/22 05/18/25 Rx (BD Regular [place]vel [place]) flash glucose scanning reader #1 ea 02/05/24 05/18/25 Rx (FreeStyle Jean 2 [place]) cholecalciferol (vitamin D3) 125 5,000 unit PO [...] mg PO QHS 05/18/25 05/18/25 His tory [facility] Medical History (Updated 05/18/25 @ 13:30 [...] pulmonary arterial hypertension 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 Normal [facility] Microscopic analysis of urin e for red blood cells (RBC)Ordered By: Pietro Turner on 05-18-2025 Microscopic analysis of urine for red blood cells (RBC) 0 SEEN /hpf 0-5 [facility] Mucus LM Ql (Urine sed)Order ed By: Pietro Turner on 05-18-2025 Mucus Ql (Urine sed) 0 SEEN /hpf [facility] Nitrite Test strip Ql (U)Ord ered By: Pietro Turner on 05-18-2025 Nitrite Ql (U) Negative Negative [facility] No Panel InformationOrdered By: Pietro Turner on 05-18-2025 Urine Leukocytes Negatve [facility] Urine Non-Hemolyzed Blood [facility] YELLOW [facility] Clear [facility] Negative [facility] 1.025 [facility] 6.0 [facility] 0.2 mg/dL [facility] Negatve [facility] Protein Test strip Ql (U)Ord ered By: Pietro Turner on 05-18-2025 Protein Ql (U) 15 mg/dl High Negative [facility] Squamous epithelial cells de tection in urine sediment by light microscopyOrdered By: Pietro Turner on 05-18-2025 Epithelial cells.squamous LM Ql (Urine sed) 0-5 SEEN /hpf 0-5 [facility] Urinalysis, Completeon 05-18 EPI,SQUAMOUS 0-5 SEEN Normal 0-5 [facility] Comment on above: Order Comment: ADITHYA CTOR TO SPECIFY Performed By: #### L 502.0500, L500.4050, L501.9985, L3100.5310 #### [facility] [address] [place], [address] WBC 0-5 SEEN Normal 0-5 [facility] Comment on above: Order Comment: ADITHYA CTOR TO SPECIFY Performed By: #### L 502.0500, L500.4050, L501.9985, L3100.5310 #### [facility] [address] [place], [address] BACTERIA 0 SEEN Normal None Seen [facility] Comment on above: Order Comment: ADITHYA CTOR TO SPECIFY Performed By: #### L 502.0500, L500.4050, L501.9985, L3100.5310 #### [facility] [address] [place], [address] Mucus Ql (Urine sed) 0 SEEN Normal [facility] Comment on above: Order Comment: ADITHYA CTOR TO SPECIFY Performed By: #### L 502.0500, L500.4050, L501.9985, L3100.5310 #### [facility] [address] [place], [address] RBC 0 SEEN Normal 0-5 [facility] Comment on above: Order Comment: ADITHYA CTOR TO SPECIFY Performed By: #### L 502.0500, L500.4050, L501.9985, L3100.5310 #### [facility] [address] [place], [address] Urine clarityOrdered By: Britni Turner on 05-18-2025 Clarity (U) Sl. Cloudy Clear [facility] Urine color determinationOrd ered By: Pietro Turner on 05-18-2025 Color (U) Yellow Yellow [facility] Urine glucose detectionOrder ed By: Pietro Turner on 05-18-2025 Glucose Ql (U) Normal mg/dl Normal [facility] Urine leukocyte esterase det ection by dipstickOrdered By: Pietro Turner on 05-18-2025 Leukocyte esterase Test strip Ql (U) Negative Negative [facility] Urine pHOrdered By: Pietro whittaker on 05-18-2025 pH (U) 6.0 [pH] 5.0 - 8.0 [facility] Urine sediment bacteria coun t by microscopy (number/high power field)Ordered By: Pietro Turner on 05-18-2025 Bacteria LM.HPF (Urine sed) [#/Area] 0 /[HPF] None Seen [facility] Urine specific gravity measu rementOrdered By: Pietro Turner on 05-18-2025 Specific gravity (U) [Rel density] 1.020 1.002-1.03 0 [facility] Urine urobilinogen measureme ntOrdered By: Pietro Turner on 05-18-2025 Urobilinogen Ql (U) Normal mg/dl Normal [facility] White blood cell countOrdere d By: Pietro Turner on 05-18-2025 White blood cell count 0-5 SEEN /hpf 0-5 [facility] CNOVon 05-14-2025 CNOV Office Visit ([id number] 2) ALIX LEE ([id number]) 1960 Claud[place] Date Time Provider Department 05/14/25 2:00 PM DIOGENES SHERMAN [id number] During your visit today, we recorded the following information about you: Pulse Blood pressure 78/minute 164/92 Diogenes Sherman, POST PARTUM NURSE.CLINICAL EXERCISE SPECIALIST 05/14/2025 4:01 PM Signed [facility] NEW PATIENT HISTORY [...] and priapism. Advised patient to consult with rotor plate washer regarding discontinuation of isosorbide before initiating PDE5 inhibitors. Alternative treatments discussed include vacuum erection devices and intracavernosal injections. Patient to follow up with rotor plate washer and notify us once cleared to [...] does not take chances due to past DE. - Recent blood pressure reading was 164/92 [...] swelling, b (more content not included)... Normal [facility] MR/BMS.IMBon 04-27-2025 MR/BMS.IMB [facility] [address] [place] [address] OFFICE VISIT Date of Service: 04/27/25 MR#: [id number] Acct: [id number] Name: ALIX LEE Rep #: [id number] : 1960 Provider: Dr. Pietro ram MD Age/Sex: 65/M Location: [facility] Status: Signed Intake Vital Signs 01/01/25 16:10 [...] Reasons: POSSIBLE PNEUMONIA Chief Complaint: Possible pneumonia Rn Iv Therapy Required: No Accompanied by: Self Is patient in pain?: Yes (Sore throat) Pain scale (1-10): 2 Allergies Penicillins (PCN) Allergy (Verified 04/27/25 10:27) Other Pbistqh-SCG-VkL Reductase Inhibitor Adverse Reaction (Intermediate, Verified 04/27/25 10:27) myalgias lisinopril Adverse Reaction (Verified 04/27/25 10:27) cough spironolactone Adverse Reaction (Verified 04/27/25 10:27) elevated blood sugar Medications ???Medication ???Instructions ???Recorded ???Confirmed ???Type needle (disp) 18 G 18 gauge x 1 #100 ea 05/22/22 04/27/25 Rx (BD Regular [place]vel [place]) flash glucose scanning reader #1 ea 02/05/24 04/27/25 Rx (FreeStyle Jean 2 [place]) cholecalciferol (vitamin D3) 125 5,000 unit PO [...] pulmonary arterial hypertension 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 Normal [facility] Testosterone, Total / Freeon 02-23-2025 TESTOSTER,FREE 11.06 ng/dL Normal 5.00-21.00 [facility] [facility] Comment on above: Order Comment: N Performed By: #### L 502.0500, L500.4050, L501.9985, L3100.5310 #### [facility] [address] [place], [place], [id number] TESTOSTER,TOTAL 280 ng/dL Normal 264-916 [facility] Comment on above: Order Comment: N Result Comment: Adul t male reference interval is based on a population of healthy nonobese males (BMI <30) between 19 and 39 years old. chava Cabrera.al. JCEM 2017,102;0837-2606. PMID: [id number]. Performed By: #### L 502.0500, L500.4050, L501.9985, L3100.5310 #### [facility] [address] [place], [place], [id number] TESTOSTERONE,%F 3.95 Normal 1.50-4.20 [facility] Comment on above: Order Comment: N Result Comment: Perf ormed at: - [facility] [address] [id number] Baseball Player: Geovanny Moore PhD, Phone: [phone] Performed at: - [facility] [address] [id number] Baseball Player: Lyle Alves MD, Phone: [phone] Performed By: #### L 502.0500, L500.4050, L501.9985, L3100.5310 #### [facility] [address] [place], [place], [id number] ALP [Catalytic activity/Vol] Ordered By: Pietro Turner on 02-09-2025 Serum or plasma alkaline phosphatase measurement 91 U/L 40-129 [facility] ALT [Catalytic activity/Vol] Ordered By: Pietro Turner on 02-09-2025 Serum or plasma alanine aminotransferase (ALT) measurement 18 U/L <47 [facility] Absolute lymphocyte countOrd ered By: Pietro Turner on 02-09-2025 Lymphocytes Auto (Unsp spec) [#/Vol] 1.36 10*3/uL 0.83-4.51 [facility] Absolute neutrophil countOrd ered By: Pietro Turner on 02-09-2025 Neutrophils (Bld) [#/Vol] 5.2 10*3/uL 2.0-7.7 [facility] Absolute neutrophil count 5.2 X10^3/uL 2.0-7.7 [facility] Albumin [Mass/Vol]Ordered By : Pietro Turner on 02-09-2025 Serum or plasma albumin measurement (mass/volume) 4.6 g/dL 3.4-4.8 [facility] Albumin/Globulin [Mass ratio ]Ordered By: Pietro Turner on 02-09-2025 Serum or plasma albumin/globulin mass ratio 2.0 RATIO 0.9-2.4 [facility] Anion gap [Moles/Vol]Ordered By: Pietro Turner on 02-09-2025 Anion gap in Serum or Plasma 12 03-12 [facility] Anion gap in Serum or Plasma Ordered By: Pietro Turner on 02-09-2025 Anion gap [Moles/Vol] 12 mmol/L 03-12 [facility] Automated lymphocyte count a s percentage of total leukocytesOrdered By: Pietro Turner on 02-09-2025 Lymphocytes/100 WBC Auto (Unsp spec) 18.6 % Low 19-41 [facility] BUN/creatinine ratioOrdered By: Pietro Turner on 02-09-2025 Urea nitrogen/Creatinine [Mass ratio] 15.2 mg/mg 10-20 [facility] BUN/creatinine ratio 15.2 RATIO 10-20 [facility] Basophil percentageOrdered B y: Pietro Turner on 02-09-2025 Basophils/100 WBC (Bld) 0.5 % 0-1 [facility] Basophil percentage 0.5 % 0-1 [facility] Bilirubin, totalOrdered By: Pietro Turner on 02-09-2025 Bilirubin [Mass/Vol] 0.45 mg/dL 0.00-1.30 [facility] Bilirubin, total 0.45 mg/dL 0.00-1.30 [facility] CBC W/Diff, Automatedon 01-27 Absolute Lymph 1.36 X10 3/uL Normal 0.83-4.51 [facility] Comment on above: Performed By: #### L 502.0500, L500.4050, L501.9985, L3100.5310 #### [facility] [address] [place], [address] Absolute Neut 5.2 X10 3/uL Normal 2.0-7.7 [facility] Comment on above: Performed By: #### L 502.0500, L500.4050, L501.9985, L3100.5310 #### [facility] [address] [place], [address] Basophils/100 WBC (Bld) 0.5 % Normal 0-1 [facility] Comment on above: Performed By: #### L 502.0500, L500.4050, L501.9985, L3100.5310 #### [facility] [address] [place], [address] Eosinophils/100 WBC (Bld) 2.7 % Normal 0-5 [facility] Comment on above: Performed By: #### L 502.0500, L500.4050, L501.9985, L3100.5310 #### [facility] [address] [place], [address] Erythrocyte distribution width (RBC) [Ratio] 12.7 % Normal 11.6-14.6 [facility] Comment on above: Performed By: #### L 502.0500, L500.4050, L501.9985, L3100.5310 #### [facility] [address] [place], [address] Hematocrit (Bld) [Volume fraction] 37.5 % Low 40-54 [facility] Comment on above: Performed By: #### L 502.0500, L500.4050, L501.9985, L3100.5310 #### [facility] [address] [place], [address] Hemoglobin (Bld) [Mass/Vol] 13.2 g/dL Normal 13.0-16.5 [facility] Comment on above: Performed By: #### L 502.0500, L500.4050, L501.9985, L3100.5310 #### [facility] [address] [place], [address] IG% 0.400 Normal 0.0-0.9 [facility] Comment on above: Result Comment: IG% - Immature Granulocytes (promyelocytes, myelocytes and metamyelocytes) > 1% indicates that a LEFT SHIFT is Present. Performed By: #### L 502.0500, L500.4050, L501.9985, L3100.5310 #### [facility] [address] [place], [address] Lymphocytes/100 WBC (Bld) 18.6 % Low 19-41 [facility] Comment on above: Performed By: #### L 502.0500, L500.4050, L501.9985, L3100.5310 #### [facility] [address] [place], [address] MCH (RBC) [Entitic mass] 31.1 pg Normal 27.0-32.0 [facility] Comment on above: Performed By: #### L 502.0500, L500.4050, L501.9985, L3100.5310 #### [facility] [address] [place], [address] MCHC (RBC) [Mass/Vol] 35.2 g/dL Normal 32-36 [facility] Comment on above: Performed By: #### L 502.0500, L500.4050, L501.9985, L3100.5310 #### [facility] [address] [place], [address] MCV (RBC) [Entitic vol] 88.4 fL Normal 80-94 [facility] Comment on above: Performed By: #### L 502.0500, L500.4050, L501.9985, L3100.5310 #### [facility] [address] [place], [address] Monocytes/100 WBC (Bld) 7.0 % Normal 0-10 [facility] Comment on above: Performed By: #### L 502.0500, L500.4050, L501.9985, L3100.5310 #### [facility] [address] [place], [address] Neutrophils/100 WBC (Bld) 70.8 % High 47-70 [facility] Comment on above: Performed By: #### L 502.0500, L500.4050, L501.9985, L3100.5310 #### [facility] [address] [place], [address] Nucleated RBC (Bld) [#/Vol] 0 10*3/uL Normal 0-5 [facility] Comment on above: Performed By: #### L 502.0500, L500.4050, L501.9985, L3100.5310 #### [facility] [address] [place], [address] Platelet mean volume (Bld) [Entitic vol] 9.3 fL Normal 6.2-12.0 [facility] Comment on above: Performed By: #### L 502.0500, L500.4050, L501.9985, L3100.5310 #### [facility] [address] [place], [address] Platelets (Bld) [#/Vol] 204 10*3/uL Normal 150-450 [facility] Comment on above: Performed By: #### L 502.0500, L500.4050, L501.9985, L3100.5310 #### [facility] [address] [place], [address] RBC (Bld) [#/Vol] 4.24 10*6/uL Low 4.6-6.2 [facility] Comment on above: Performed By: #### L 502.0500, L500.4050, L501.9985, L3100.5310 #### [facility] [address] [place], [address] RDW SD 39.9 fl Normal 35.1-43.9 [facility] Comment on above: Performed By: #### L 502.0500, L500.4050, L501.9985, L3100.5310 #### [facility] [address] [place], [address] WBC (Bld) [#/Vol] 7.3 10*3/uL Normal 4.4-11.0 [facility] Comment on above: Performed By: #### L 502.0500, L500.4050, L501.9985, L3100.5310 #### [facility] [address] [place], [address] Calcium [Mass/Vol]Ordered By : Pietro Turner on 02-09-2025 Serum or plasma calcium measurement (mass/volume) 9.9 mg/dL 7.6-11.0 [facility] Calculated very low density lipoprotein (VLDL) cholesterol measurementOrdered By: Pietro Turner on 02-09-2025 Calculated very low density lipoprotein (VLDL) cholesterol measurement 39 mg/dL -40 [facility] Calculated very low density lipoprotein (VLDL) cholesterol measurement 39 mg/dL -40 [facility] Carbon dioxide, total [Moles /volume] in Central venous bloodOrdered By: Pietro Turner on 02-09-2025 CO2 [Moles/Vol] 23.7 mmol/L 21.0-32.0 [facility] Carbon dioxide, total [Moles/volume] in Central venous blood 23.7 mmol/L 21.0-32.0 [facility] Chloride assayOrdered By: Rohini Turner on 02-09-2025 Chloride [Moles/Vol] 99 mmol/L 98-108 [facility] Chloride assay 99 mmol/L 98-108 [facility] Cholesterol [Mass/Vol]Ordere d By: Pietro Turner on 02-09-2025 Serum or plasma cholesterol measurement (mass/volume) 170 mg/dL <201 [facility] Cholesterol in HDL [Mass/Vol ]Ordered By: Pietro Turner on 02-09-2025 Serum or plasma cholesterol in HDL measurement (mass/volume) 41 mg/dL >40 [facility] Cobalamin (Vitamin B12) [Mas s/Vol]Ordered By: Pietro Turner on 02-09-2025 Vitamin B12 ser/plas 608 pg/mL 180-914 [facility] Comprehensive Metabolic Prof ilon 02-09-2025 Albumin [Mass/Vol] 4.6 g/dL Normal 3.4-4.8 [facility] Comment on above: Performed By: #### L 502.0500, L500.4050, L501.9985, L3100.5310 #### [facility] [address] [place], [address] Albumin/Globulin [Mass ratio] 2.0 {ratio} Normal 0.9-2.4 [facility] Comment on above: Performed By: #### L 502.0500, L500.4050, L501.9985, L3100.5310 #### [facility] [address] [place], [address] ALK PHOS 91 U/L Normal 40-129 [facility] Comment on above: Performed By: #### L 502.0500, L500.4050, L501.9985, L3100.5310 #### [facility] [address] [place], [address] ALT [Catalytic activity/Vol] 18 U/L Normal <=46 [facility] Comment on above: Performed By: #### L 502.0500, L500.4050, L501.9985, L3100.5310 #### [facility] [address] [place], [address] AST [Catalytic activity/Vol] 21 U/L Normal <=37 [facility] Comment on above: Performed By: #### L 502.0500, L500.4050, L501.9985, L3100.5310 #### [facility] [address] [place], [address] Bilirubin [Mass/Vol] 0.45 mg/dL Normal 0.00-1.30 [facility] Comment on above: Performed By: #### L 502.0500, L500.4050, L501.9985, L3100.5310 #### [facility] [address] [place], [address] BUN/CRE 15.2 RATIO Normal 10-20 [facility] Comment on above: Performed By: #### L 502.0500, L500.4050, L501.9985, L3100.5310 #### [facility] [address] [place], [address] Calcium [Mass/Vol] 9.9 mg/dL Normal 7.6-11.0 [facility] Comment on above: Performed By: #### L 502.0500, L500.4050, L501.9985, L3100.5310 #### [facility] [address] [place], [address] Chloride [Moles/Vol] 99 mmol/L Normal 98-108 [facility] Comment on above: Performed By: #### L 502.0500, L500.4050, L501.9985, L3100.5310 #### [facility] [address] [place], [address] CO2 [Moles/Vol] 23.7 mmol/L Normal 21.0-32.0 [facility] Comment on above: Performed By: #### L 502.0500, L500.4050, L501.9985, L3100.5310 #### [facility] [address] [place], [address] Creatinine [Mass/Vol] 0.95 mg/dL Normal 0.70-1.20 [facility] Comment on above: Performed By: #### L 502.0500, L500.4050, L501.9985, L3100.5310 #### [facility] [address] [place], [address] GAP 12 Normal 5-15 [facility] Comment on above: Performed By: #### L 502.0500, L500.4050, L501.9985, L3100.5310 #### [facility] [address] [place], [address] GFR/1.73 sq M.predicted among non-blacks MDRD (S/P/Bld) [Vol rate/Area] 91 mL/min/{1.73_m2} Normal >60 [facility] Comment on above: Result Comment: mL/m in/1.73m2 CKD-EPI Creatinine Equation (2020) Performed By: #### L 502.0500, L500.4050, L501.9985, L3100.5310 #### [facility] [address] [place], [address] Globulin (S) [Mass/Vol] 2.3 g/dL Normal 2.2-4.2 [facility] Comment on above: Performed By: #### L 502.0500, L500.4050, L501.9985, L3100.5310 #### [facility] [address] [place], [address] Glucose [Mass/Vol] 124 mg/dL High 70-99 [facility] Comment on above: Performed By: #### L 502.0500, L500.4050, L501.9985, L3100.5310 #### [facility] [address] [place], [address] Potassium [Moles/Vol] 4.2 mmol/L Normal 3.3-5.1 [facility] Comment on above: Performed By: #### L 502.0500, L500.4050, L501.9985, L3100.5310 #### [facility] [address] [place], [address] Sodium [Moles/Vol] 135 mmol/L Normal 133-145 [facility] Comment on above: Performed By: #### L 502.0500, L500.4050, L501.9985, L3100.5310 #### [facility] [address] [place], [address] T PROT 6.9 g/dL Normal 5.9-8.4 [facility] Comment on above: Performed By: #### L 502.0500, L500.4050, L501.9985, L3100.5310 #### [facility] [address] [place], [address] Urea nitrogen [Mass/Vol] 14 mg/dL Normal 4-19 [facility] Comment on above: Performed By: #### L 502.0500, L500.4050, L501.9985, L3100.5310 #### [facility] [address] [place], [address] Creatinine [Mass/Vol]Ordered By: Pietro Turner on 02-09-2025 Serum creatinine measurement (mass/volume) 0.95 mg/dL 0.70-1.20 [facility] Eosinophil percentageOrdered By: Pietro Turner on 02-09-2025 Eosinophils/100 WBC (Bld) 2.7 % 0-5 [facility] Eosinophil percentage 2.7 % 0-5 [facility] Erythrocyte distribution wid th (RBC) [Ratio]Ordered By: Pietro Turner on 02-09-2025 Erythrocyte distribution width ratio 12.7 % 11.6-14.6 [facility] Erythrocyte distribution width standard deviation 39.9 fl 35.1-43.9 [facility] Erythrocyte distribution wid th ratioOrdered By: Pietro Turner on 02-09-2025 Erythrocyte distribution width (RBC) [Ratio] 12.7 % 11.6-14.6 [facility] Erythrocyte distribution wid th standard deviationOrdered By: Pietro Turner on 02-09-2025 Erythrocyte distribution width (RBC) [Ratio] 39.9 fl 35.1-43.9 [facility] Free T3on 02-09-2025 Free T3 [Mass/Vol] 2.6 pg/mL Normal 2.18-3.98 [facility] Comment on above: Order Comment: N Performed By: #### L 502.0500, L500.4050, L501.9985, L3100.5310 #### [facility] [address] [place], [address] Free B6[place] By: Pietro schmitt on 02-09-2025 Free T3 [Mass/Vol] 2.6 pg/mL 2.18-3.98 [facility] Free T3 2.6 pg/mL 2.18-3.98 [facility] Free testosterone percentage Ordered By: Pietro Turner on 02-09-2025 Testosterone Free/Testosterone.tota l [Mass fraction] 3.95 % 1.50-4.20 [facility] Comment on above: Performed at: [address] [id number] Director: Geovanny Moore PhD, Phone: [phone] at: [facility] [id number] Director: Lyle Alves MD, Phone: [phone] GFR/1.73 sq M.predicted tuyet g non-blacks MDRD (S/P/Bld) [Vol rate/Area]Ordered By: Pietro Truner on 02-09-2025 Glomerular filtration rate (GFR) estimation/1.73 sq m using serum, plasma, or whole b 91 >60 [facility] Glomerular filtration rate ( GFR) estimation/1.73 sq m using serum, plasma, or whole bOrdered By: Pietro Turner on 02-09-2025 GFR/1.73 sq M.predicted among non-blacks MDRD (S/P/Bld) [Vol rate/Area] 91 mL/min/{1.73_m2} >60 [facility] Comment on above: mL/min/1.73m2 CKD-EP I Creatinine Equation (2020) Glucose [Mass/Vol]Ordered By : Pietro Turner on 02-09-2025 Serum glucose measurement (mass/volume) 124 mg/dL High 70-99 [facility] HbA1c (Bld) [Mass fraction]O rdered By: Pietro Turner on 02-09-2025 Hemoglobin A1c percentage 5.9 % High <5.7 [facility] Hematocrit Auto (Bld) [Volum e fraction]Ordered By: Pietro Turner on 02-09-2025 Hematocrit (Bld) [Volume fraction] 37.5 % Low 40-54 [facility] Automated blood hematocrit (percentage) 37.5 % Low 40-54 [facility] Hemoglobin A1con 02-09-2025 HbA1c (Bld) [Mass fraction] 5.9 % High <=5.6 [facility] Comment on above: Result Comment: Norm al < 5.7 % Prediabetic 5.7 - 6.4 % Diabetic >or= 6.5 % Please note range changes. Performed By: #### L 502.0500, L500.4050, L501.9985, L3100.5310 #### [facility] [address] [place] [address], [id number] Hemoglobin A1c percentageOrd ered By: Pietro Turner on 02-09-2025 HbA1c (Bld) [Mass fraction] 5.9 % High <5.7 [facility] Comment on above: Normal < 5.7 % Predi abetic 5.7 - 6.4 % Diabetic >or= 6.5 % Please note range changes. Hemoglobin measurementOrdere d By: Pietro Turner on 02-09-2025 Hemoglobin (Bld) [Mass/Vol] 13.2 g/dL 13.0-16.5 [facility] Hemoglobin measurement 13.2 g/dL 13.0-16.5 [facility] Immature granulocytes/100 WB C Auto (Bld)Ordered By: Pietro Turner on 02-09-2025 Immature granulocytes/100 WBC (Bld) 0.400 % 0.0-0.9 [facility] Comment on above: IG% - Immature Granu locytes (promyelocytes, myelocytes and metamyelocytes) > 1% indicates that a LEFT SHIFT is Present. Automated immature granulocyte percentage 0.400 % 0.0-0.9 [facility] LDL calc ser/plasOrdered By: Pietro Turner on 02-09-2025 Cholesterol in LDL [Mass/Vol] 90 mg/dL [facility] Comment on above: Idcjruuzwb=411-687 m g/dL & Higher Lbyz=220 mg/dL or greater LDL calc ser/plas 90 mg/dL [facility] - Chemistry and C hemistry - challengeOrdered By: Pietro Turner on 02-09-2025 AST [Catalytic activity/Vol] 21 U/L <38 [facility] Lipid Profileon 02-09-2025 CHOL:HDL 4.17 Normal [facility] Comment on above: Performed By: #### L 502.0500, L500.4050, L501.9985, L3100.5310 #### [facility] [address] [place], [place], [id number] Cholesterol [Mass/Vol] 170 mg/dL Normal <=200 [facility] Comment on above: Result Comment: Chol esterol level, Desirable <200 mg/dL Borderline high cholesterol 200-239 mg/dL High cholesterol >=240 mg/dL Recommendations of the NCEP Adult Treatment Panel for the following risk-cutoff thresholds for the [place] population. Performed By: #### L 502.0500, L500.4050, L501.9985, L3100.5310 #### [facility] [address] [place], [place], [id number] Cholesterol in HDL [Mass/Vol] 41 mg/dL Normal [facility] Comment on above: Result Comment: Anna onal Cholesterol Education Program (NCEP) guidelines: <40 mg/dL: Low HDL-cholesterol (major risk factor for CHD) >= 60 mg/dL: High HDL-cholesterol (negative risk factor for CHD) HDL-cholesterol is affected by a number of factors, e.g. smoking, exercise, hormones, sex and age. Performed By: #### L 502.0500, L500.4050, L501.9985, L3100.5310 #### [facility] [address] [place], [address] Cholesterol in LDL [Mass/Vol] 90 mg/dL Normal [facility] Comment on above: Result Comment: Bord lxnepk=273-154 mg/dL Higher Eylt=795 mg/dL or greater Performed By: #### L 502.0500, L500.4050, L501.9985, L3100.5310 #### [facility] [address] [place], [address] Cholesterol in VLDL [Mass/Vol] 39 mg/dL Normal 5-40 [facility] Comment on above: Performed By: #### L 502.0500, L500.4050, L501.9985, L3100.5310 #### [facility] [address] [place], [address] Triglyceride [Mass/Vol] 195 mg/dL Normal [facility] Comment on above: Result Comment: The drugs N-Acetylcysteine and Metamizole may falsely depress this assay. Normal range: <150 mg/dL Borderline High: 150-199 mg/dL High: 200-499 mg/dL Very High: >500 mg/dL Performed By: #### L 502.0500, L500.4050, L501.9985, L3100.5310 #### [facility] [address] [place], [address] Lymphocytes Auto (Unsp spec) [#/Vol]Ordered By: Pietro Turner on 02-09-2025 Absolute lymphocyte count 1.36 X10^3/uL 0.83-4.51 [facility] Lymphocytes/100 WBC Auto (Un sp spec)Ordered By: Pietro Turner on 02-09-2025 Automated lymphocyte count as percentage of total leukocytes 18.6 % Low 19-41 [facility] MCV (RBC) [Entitic vol]Order ed By: Pietro Turner on 02-09-2025 MCV (mean corpuscular volume) determination 88.4 fL 80-94 [facility] MCV (mean corpuscular volume ) determinationOrdered By: Pietro Turner on 02-09-2025 MCV (RBC) [Entitic vol] 88.4 fL 80-94 [facility] Magnesiumon 02-09-2025 Magnesium [Mass/Vol] 2.2 mg/dL Normal 1.5-2.2 [facility] Comment on above: Performed By: #### L 502.0500, L500.4050, L501.9985, L3100.5310 #### [facility] [address] [place], [address] Magnesium (Unsp spec) [Mass/ Vol]Ordered By: Pietro Turner on 02-09-2025 Magnesium measurement (mass/volume) 2.2 mg/dL 1.5-2.2 [facility] Magnesium measurement (mass/ volume)Ordered By: Pietro Turner on 02-09-2025 Magnesium (Unsp spec) [Mass/Vol] 2.2 mg/dL 1.5-2.2 [facility] Mean corpuscular hemoglobin (MCH) determinationOrdered By: Pietro Turner on 02-09-2025 MCH (RBC) [Entitic mass] 31.1 pg 27.0-32.0 [facility] Mean corpuscular hemoglobin (MCH) determination 31.1 pg 27.0-32.0 [facility] Mean corpuscular hemoglobin concentration (MCHC) determinationOrdered By: Pietro Turner on 02-09-2025 MCHC (RBC) [Mass/Vol] 35.2 g/dL 32-36 [facility] Mean corpuscular hemoglobin concentration (MCHC) determination 35.2 g/dL -36 [facility] Mean platelet volume determi nationOrdered By: Pietro Turner on 02-09-2025 Platelet mean volume (Bld) [Entitic vol] 9.3 fL 6.2-12.0 [facility] Mean platelet volume determination 9.3 fl 6.2-12.0 [facility] Monocyte percentageOrdered B y: Pietro Turner on 02-09-2025 Monocytes/100 WBC (Bld) 7.0 % 0-10 [facility] Monocyte percentage 7.0 % 0-10 [facility] Neutrophil percentageOrdered By: Pietro Turner on 02-09-2025 Neutrophils/100 WBC (Bld) 70.8 % High 47-70 [facility] Neutrophil percentage 70.8 % High 47-70 [facility] No Panel InformationOrdered By: Pietro Turner on 02-09-2025 21 U/L <38 [facility] Nucleated red blood cell per centageOrdered By: Pietro Turner on 02-09-2025 Nucleated RBC/100 WBC (Bld) [Ratio] 0 % 0-5 [facility] Nucleated red blood cell percentage 0 % 0-5 [facility] PSA, total screeningOrdered By: Pietro Turner on 02-09-2025 PSA, total screening 0.31 ng/mL 0.02-4.00 [facility] PSA,Total - Annual Screenon 02-09-2025 PSA,TOT SCREEN 0.31 ng/mL Normal 0.02-4.00 [facility] Comment on above: Result Comment: This [...] #### L 502.0500, L500.4050, L501.9985, L3100.5310 #### [facility] [address] [place], [address] Platelet countOrdered By: Rohini Turner on 02-09-2025 Platelets (Bld) [#/Vol] 204 10*3/uL 150-450 [facility] Platelet count 204 K/mm3 150-450 [facility] Potassium (Unsp spec) [Mass/ Vol]Ordered By: Pietro Turner on 02-09-2025 Potassium measurement (mass/volume) 4.2 mmol/L 3.3-5.1 [facility] Potassium measurement (mass/ volume)Ordered By: Pietro Turner on 02-09-2025 Potassium (Unsp spec) [Mass/Vol] 4.2 mmol/L 3.3-5.1 [facility] RBC Auto (Bld) [#/Vol]Ordere d By: Pietro Turner on 02-09-2025 RBC (Bld) [#/Vol] 4.24 10*6/uL Low 4.6-6.2 [facility] Automated blood erythrocyte count 4.24 M/mm3 Low 4.6-6.2 [facility] Screening total cholesterol/ high density lipoprotein (HDL) cholesterol ratioOrdered By: Pietro Turner on 02-09-2025 Cholesterol.total/Chol esterol in HDL [Mass ratio] 4.17 {ratio} [facility] Screening total cholesterol/high density lipoprotein (HDL) cholesterol ratio 4.17 [facility] Serum creatinine measurement (mass/volume)Ordered By: Pietro Turner on 02-09-2025 Creatinine [Mass/Vol] 0.95 mg/dL 0.70-1.20 [facility] Serum globulin measurementOr dered By: Pietro Turner on 02-09-2025 Globulin (S) [Mass/Vol] 2.3 g/dL 2.2-4.2 [facility] Serum globulin measurement 2.3 g/dL 2.2-4.2 [facility] Serum glucose measurement (m ass/volume)Ordered By: Pietro Turner on 02-09-2025 Glucose [Mass/Vol] 124 mg/dL High 70-99 [facility] Serum or plasma alanine carrillo otransferase (ALT) measurementOrdered By: Pietro Turner on 02-09-2025 ALT [Catalytic activity/Vol] 18 U/L <47 [facility] Serum or plasma albumin michelle urement (mass/volume)Ordered By: Pietro Turner on 02-09-2025 Albumin [Mass/Vol] 4.6 g/dL 3.4-4.8 [facility] Serum or plasma albumin/glob ulin mass ratioOrdered By: Pietro Turner on 02-09-2025 Albumin/Globulin [Mass ratio] 2.0 {ratio} 0.9-2.4 [facility] Serum or plasma alkaline andres sphatase measurementOrdered By: Pietro Turner on 02-09-2025 ALP [Catalytic activity/Vol] 91 U/L 40-129 [facility] Serum or plasma calcium michelle urement (mass/volume)Ordered By: Pietro Turner on 02-09-2025 Calcium [Mass/Vol] 9.9 mg/dL 7.6-11.0 [facility] Serum or plasma cholesterol in HDL measurement (mass/volume)Ordered By: Pietro Turner on 02-09-2025 Cholesterol in HDL [Mass/Vol] 41 mg/dL >40 [facility] Comment on above: National Cholesterol Education Program (NCEP) guidelines:<40 mg/dL: Low HDL-cholesterol (major risk factor for CHD)>= 60 mg/dL: High HDL-cholesterol (negative risk factor for CHD)HDL-cholesterol is affected by a number of factors, e.g. smoking, exercise, hormones, sex and age. Serum or plasma cholesterol measurement (mass/volume)Ordered By: Pietro Turner on 02-09-2025 Cholesterol [Mass/Vol] 170 mg/dL <201 [facility] Comment on above: Cholesterol level, D esirable <200 mg/dLBorderline high cholesterol 200-239 mg/dLHigh cholesterol >=240 mg/dLRecommendations of the NCEP Adult Treatment Panel for the following risk-cutoff thresholds for the [place] population. Serum or plasma free testost erone measurement (mass/volume)Ordered By: Pietro Turner on 02-09-2025 Testosterone Free [Mass/Vol] 11.06 ng/dL 5.00-21.00 [facility] Serum or plasma urea nitroge n measurement (mass/volume)Ordered By: Pietro Turner on 02-09-2025 Urea nitrogen [Mass/Vol] 14 mg/dL 4-19 [facility] Sodium levelOrdered By: Carmen Turner on 02-09-2025 Sodium [Moles/Vol] 135 mmol/L 133-145 [facility] Sodium level 135 mmol/L 133-145 [facility] T4 Free Directon 02-09-2025 T4 FREE DIRECT 1.20 ng/dL Normal 0.76-1.46 [facility] Comment on above: Order Comment: N Performed By: #### L 502.0500, L500.4050, L501.9985, L3100.5310 #### [facility] [address] [place], [place], [id number] T4 freeOrdered By: Pietro schmitt on 02-09-2025 Free T4 [Mass/Vol] 1.20 ng/dL 0.76-1.46 [facility] T4 free 1.20 ng/dL 0.76-1.46 [facility] TSH DL <= 0.005 mIU/L QnOrde red By: Pietro Turner on 02-09-2025 TSH Qn 3.490 uIU/mL 0.300-4.20 0 [facility] Serum or plasma thyroid stimulating hormone (TSH) measurement by high sensitivity met 3.490 uIU/mL 0.300-4.20 0 [facility] Testosterone, totalOrdered B y: Pietro Turner on 02-09-2025 Testosterone [Mass/Vol] 280 ng/dL 264-916 [facility] Comment on above: Adult male reference interval is based on a population ofhealthy nonobese males (BMI <30) between 19 and 39 yearsold. chava Cabrera.al. JCEM 2017,102;5437-6607. PMID:[id number]. Thyroid Stim Hormone (TSH)on 02-09-2025 TSH 3.490 uIU/mL Normal 0.300-4.20 0 [facility] Comment on above: Performed By: #### L 502.0500, L500.4050, L501.9985, L3100.5310 #### [facility] [address] [place], [place], [id number] Total proteinOrdered By: Britni Turner on 02-09-2025 Protein [Mass/Vol] 6.9 g/dL 5.9-8.4 [facility] Total protein 6.9 g/dL 5.9-8.4 [facility] Triglycerides measurementOrd ered By: Pietro Turner on 02-09-2025 Triglyceride [Mass/Vol] 195 mg/dL <199 [facility] Comment on above: The drugs N-Acetylcy steine and Metamizole may falsely depress this assay. Normal range: <150 mg/dLBorderline High: 150-199 mg/dLHigh: 200-499 mg/dLVery High: >500 mg/dL Triglycerides measurement 195 mg/dL <199 [facility] Urea nitrogen [Mass/Vol]Orde red By: Pietro Turner on 02-09-2025 Serum or plasma urea nitrogen measurement (mass/volume) 14 mg/dL 4- [facility] Vitamin B12on 02-09-2025 Cobalamin (Vitamin B12) [Mass/Vol] 608 pg/mL Normal 180-914 [facility] Comment on above: Performed By: #### L 502.0500, L500.4050, L501.9985, L3100.5310 #### [facility] [address] [place], [place], [id number] Vitamin B12 ser/plasOrdered By: Pietro Turner on 02-09-2025 Cobalamin (Vitamin B12) [Mass/Vol] 608 pg/mL 180-914 [facility] Vitamin D, 25-hydroxyOrdered By: Pietro Turner on 02-09-2025 Vitamin D, 25-hydroxy 30.2 ng/mL 30-100 [facility] Vitamin D,25 Hydroxyon 02-09 Vitamin D 25-OH 30.2 ng/mL Normal 30-100 [facility] Comment on above: Result Comment: Nguyen min D Status Deficiency: <20 ng/mL (50nmol/L) Insufficiency: 20-30 ng/mL (50-75 nmol/L) Sufficiency: 30-100 ng/mL (75-250 nmol/L) Toxicity: >100 ng/mL (>250 nmol/L) Performed By: #### L 502.0500, L500.4050, L501.9985, L3100.5310 #### [facility] [address] [place], [place], [id number] White blood cell (WBC) count Ordered By: Pietro Turner on 02-09-2025 WBC (Bld) [#/Vol] 7.3 10*3/uL 4.4-11.0 [facility] White blood cell (WBC) count 7.3 K/mm3 4.4-11.0 [facility] OT D/C of Non Returning Pton 02-05-2025 OT D/C of Non Returning Pt [facility] Occupational Therapy [facility] [place] [address] / REHABILITATION SERVICES DISCHARGE SUMMARY MR#: [id number] Acct: [id number] Name: ALIX LEE Rep #: [id number] : 1960 64 From: Manasa Castro Referring [...] Dr. Pietro Turner MD CK Signed Normal [facility] MR/BMS.IMBon 01-01-2025 MR/BMS.IMB [facility] [address] [place] [address] OFFICE VISIT Date of Service: 01/01/25 MR#: [id number] Acct: [id number] Name: ALIX LEE Rep #: [id number] : 1960 Provider: Dr. Pietro ram MD Age/Sex: 64/M Location: [facility] Status: Signed Intake Vital Signs 12/04/24 16:27 [...] ED Treatment Chief Complaint: Discuss ED Treatment Rn Iv Therapy Required: No Accompanied by: Self Is patient in pain?: No Allergies Penicillins (PCN) Allergy (Verified 01/01/25 16:02) Other lisinopril Adverse Reaction (Verified 01/01/25 16:02) cough spironolactone Adverse Reaction (Verified 01/01/25 16:02) elevated blood sugar Medications ???Medication ???Instructions ???Recorded ???Confirmed ???Type needle (disp) 18 G 18 gauge x 1 #100 ea 05/22/22 01/01/25 Rx (BD Regular Bevel [place]) nitroglycerin 0.4 mg sublingual 0.4 mg sublingual Q5-15M PRN chest 01/11/24 01/01/25 Rx tablet (Nitrostat) pain #25 tabs flash glucose scanning reader #1 ea 02/05/24 01/01/25 Rx (FreeStyle Jean 2 [place]) flash glucose sensor (FreeStyle #1 ea 02/05/24 [...] Q2W #5 mL 01/02 Rx intramuscular oil [facility] Medical History (Updated 01/05/25 @ 08:05 [...] pulmonary arterial hypertension 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 Normal [facility] Cardiology Visit Reporton Cardiology Visit Report [facility] [address] [place] [address] OFFICE VISIT Date of Service: 11/25/24 MR#: [id number] Acct: [id number] Name: ALIX LEE Rep #: [id number] : 1960 Provider: Dr. Marck Orellana MD Age/Sex: 64/M Location: [facility] Status: Signed HPI HPI History of Present [...] Monitor Intake Visit Reasons: 1 Y FU Rn Iv Therapy Required: No Accompanied by: Self Is patient in pain?: No Allergies Penicillins (PCN) Allergy (Verified 11/25/24 14:59) Other lisinopril Adverse Reaction (Verified 11/25/24 14:59) cough spironolactone Adverse Reaction (Verified 11/25/24 14:59) elevated blood sugar Medications ???Medication ???Instructions ???Recorded ???Confirmed ???Type needle (disp) 18 G 18 gauge x 1 #100 ea 05/22/22 10/14/24 Rx (BD Regular Bevel [place]) nitroglycerin 0.4 mg sublingual 0.4 mg sublingual Q5-15M PRN chest 01/11/24 11/25/24 Rx tablet (Nitrostat) pain #25 tabs flash glucose scanning reader #1 ea 02/05/24 10/14/24 Rx (FreeStyle Jean 2 [place]) flash glucose sensor (FreeStyle #1 ea 02/05/24 [...] 100 mg (more content not included)... Normal [facility] Absolute neutrophil countOrd ered By: Betty Aaron on 11-14-2024 Neutrophils (Bld) [#/Vol] 4.1 10*3/uL 2.0-7.7 [facility] Absolute neutrophil count 4.1 X10^3/uL 2.0-7.7 [facility] Basic Metabolic Profile (BMP )on 11-14-2024 BUN/CRE 19.1 RATIO Normal 10-20 [facility] Comment on above: Order Comment: 1 Y Performed By: #### L 500.2500, L501.5425, L100.0100 #### [facility] [address] [place], [address] CA,Total 9.6 mg/dL Normal 8.5-10.1 [facility] Comment on above: Order Comment: 1 Y Performed By: #### L 500.2500, L501.5425, L100.0100 #### [facility] [address] [place], [address] Chloride [Moles/Vol] 100 mmol/L Normal 98-107 [facility] Comment on above: Order Comment: 1 Y Performed By: #### L 500.2500, L501.5425, L100.0100 #### [facility] [address] [place], [address] CO2 [Moles/Vol] 30.0 mmol/L Normal 21.0-32.0 [facility] Comment on above: Order Comment: 1 Y Performed By: #### L 500.2500, L501.5425, L100.0100 #### [facility] [address] [place], [address] Creatinine [Mass/Vol] 0.84 mg/dL Normal 0.70-1.30 [facility] Comment on above: Order Comment: 1 Y Result Comment: The validity of the calculated GFR GFRAA in patients over 70 years has not been determined. Clinical correlation is essential. Performed By: #### L 500.2500, L501.5425, L100.0100 #### [facility] [address] [place], [address] EST GFR - AA 119 mL/min Normal >60 [facility] Comment on above: Order Comment: 1 Y Result Comment: Afri can Italian GFR Calc Performed By: #### L 500.2500, L501.5425, L100.0100 #### [facility] [address] [place], [address] GAP 4 Low 5-15 [facility] Comment on above: Order Comment: 1 Y Performed By: #### L 500.2500, L501.5425, L100.0100 #### [facility] [address] [place], [address] GFR/1.73 sq M.predicted among non-blacks MDRD (S/P/Bld) [Vol rate/Area] 98 mL/min/{1.73_m2} Normal >60 [facility] Comment on above: Order Comment: 1 Y Result Comment: Non- GFR Calc Performed By: #### L 500.2500, L501.5425, L100.0100 #### [facility] [address] [place], [address] Glucose [Mass/Vol] 170 mg/dL High 74-106 [facility] Comment on above: Order Comment: 1 Y Result Comment: Fast ing Glucose result greater than or equal to 126 mg/dL suggests DIABETES MELLITUS per A.D.A. criteria. Performed By: #### L 500.2500, L501.5425, L100.0100 #### [facility] [address] [place], [address] Potassium [Moles/Vol] 3.5 mmol/L Normal 3.5-5.1 [facility] Comment on above: Order Comment: 1 Y Performed By: #### L 500.2500, L501.5425, L100.0100 #### [facility] [address] [place], [address] Sodium [Moles/Vol] 134 mmol/L Low 136-145 [facility] Comment on above: Order Comment: 1 Y Performed By: #### L 500.2500, L501.5425, L100.0100 #### [facility] [address] [place], [address] Urea nitrogen [Mass/Vol] 16 mg/dL Normal 7-18 [facility] Comment on above: Order Comment: 1 Y Performed By: #### L 500.2500, L501.5425, L100.0100 #### [facility] [address] [place], [address] Basophil percentageOrdered B y: Betty Aaron on 11-14-2024 Basophils/100 WBC (Bld) 0.8 % 0-1 [facility] Basophil percentage 0.8 % 0-1 [facility] Blood urea nitrogen (BUN)/cr eatinine ratioOrdered By: Betty Aaron on 11-14-2024 Urea nitrogen/Creatinine [Mass ratio] 19.1 mg/mg 10- [facility] Blood urea nitrogen (BUN)/creatinine ratio 19.1 RATIO - [facility] CBC W/Diff, Automatedon 10-29 Absolute Lymph 1.35 X10 3/uL Normal 0.83-4.51 [facility] Comment on above: Performed By: #### L 500.2500, L501.5425, L100.0100 #### [facility] [address] [place], [address] Absolute Neut 4.1 X10 3/uL Normal 2.0-7.7 [facility] Comment on above: Performed By: #### L 500.2500, L501.5425, L100.0100 #### [facility] [address] [place], [address] Basophils/100 WBC (Bld) 0.8 % Normal 0-1 [facility] Comment on above: Performed By: #### L 500.2500, L501.5425, L100.0100 #### [facility] [address] [place], [address] Eosinophils/100 WBC (Bld) 3.7 % Normal 0-5 [facility] Comment on above: Performed By: #### L 500.2500, L501.5425, L100.0100 #### [facility] [address] [place], [address] Erythrocyte distribution width (RBC) [Ratio] 13.7 % Normal 11.6-14.6 [facility] Comment on above: Performed By: #### L 500.2500, L501.5425, L100.0100 #### [facility] [address] [place], [address] Hematocrit (Bld) [Volume fraction] 38.5 % Low 40-54 [facility] Comment on above: Performed By: #### L 500.2500, L501.5425, L100.0100 #### [facility] [address] [place], [address] Hemoglobin (Bld) [Mass/Vol] 13.6 g/dL Normal 13.0-16.5 [facility] Comment on above: Performed By: #### L 500.2500, L501.5425, L100.0100 #### [facility] [address] [place], [address] IG% 0.600 Normal 0.0-0.9 [facility] Comment on above: Result Comment: IG% - Immature Granulocytes (promyelocytes, myelocytes and metamyelocytes) > 1% indicates that a LEFT SHIFT is Present. Performed By: #### L 500.2500, L501.5425, L100.0100 #### [facility] [address] [place], [address] Lymphocytes/100 WBC (Bld) 21.4 % Normal 19-41 [facility] Comment on above: Performed By: #### L 500.2500, L501.5425, L100.0100 #### [facility] [address] [place], [address] MCH (RBC) [Entitic mass] 31.3 pg Normal 27.0-32.0 [facility] Comment on above: Performed By: #### L 500.2500, L501.5425, L100.0100 #### [facility] [address] [place], [address] MCHC (RBC) [Mass/Vol] 35.3 g/dL Normal 32-36 [facility] Comment on above: Performed By: #### L 500.2500, L501.5425, L100.0100 #### [facility] [address] [place], [address] MCV (RBC) [Entitic vol] 88.5 fL Normal 80-94 [facility] Comment on above: Performed By: #### L 500.2500, L501.5425, L100.0100 #### [facility] [address] [place], [address] Monocytes/100 WBC (Bld) 8.6 % Normal 0-10 [facility] Comment on above: Performed By: #### L 500.2500, L501.5425, L100.0100 #### [facility] [address] [place], [address] Neutrophils/100 WBC (Bld) 64.9 % Normal 47-70 [facility] Comment on above: Performed By: #### L 500.2500, L501.5425, L100.0100 #### [facility] [address] [place], [address] Nucleated RBC (Bld) [#/Vol] 0 10*3/uL Normal 0-5 [facility] Comment on above: Performed By: #### L 500.2500, L501.5425, L100.0100 #### [facility] [address] [place], [address] Platelet mean volume (Bld) [Entitic vol] 9.6 fL Normal 6.2-12.0 [facility] Comment on above: Performed By: #### L 500.2500, L501.5425, L100.0100 #### [facility] [address] [place], [address] Platelets (Bld) [#/Vol] 219 10*3/uL Normal 150-450 [facility] Comment on above: Performed By: #### L 500.2500, L501.5425, L100.0100 #### [facility] [address] [place], [address] RBC (Bld) [#/Vol] 4.35 10*6/uL Low 4.6-6.2 [facility] Comment on above: Performed By: #### L 500.2500, L501.5425, L100.0100 #### [facility] [address] [place], [address] RDW SD 43.7 fl Normal 35.1-43.9 [facility] Comment on above: Performed By: #### L 500.2500, L501.5425, L100.0100 #### [facility] [address] [place], [address] WBC (Bld) [#/Vol] 6.3 10*3/uL Normal 4.4-11.0 [facility] Comment on above: Performed By: #### L 500.2500, L501.5425, L100.0100 #### [facility] [address] [place], [address] Calcium [Mass/Vol]Ordered By : Betty Aaron on 11-14-2024 Serum or plasma calcium measurement (mass/volume) 9.6 mg/dL 8.5-10.1 [facility] Carbon dioxide measurementOr dered By: Betty Aaron on 11-14-2024 CO2 [Moles/Vol] 30.0 mmol/L 21.0-32.0 [facility] Carbon dioxide measurement 30.0 mmol/L 21.0-32.0 [facility] Chest 1 View (Portable)on Chest 1 View (Portable) [facility] Imaging Services [address] [place] [address] Chest 1 View (Portable) MR#: [id number] Acct: [id number] Name: ALIX LEE Rep #: [id number] : 1960 M 64 From: Juan Jean MD PCP: Dr. Pietro Turner MD Status: REG ER Study: Chest 1 View (Portable) Date of Exam: 11/14/24 Exam# [id number] Ordering Dr: Betty Aaron [id number] STUDY: X-RAY CHEST REASON FOR EXAM: Male, [...] 20:29 EST Reading Location ID and State: [facility] / [place] Tel , Service support , CC: Dr. Pietro Turner MD; [employer] Producer: Signed Normal [facility] Chloride measurementOrdered By: Betty Aaron on 11-14-2024 Chloride [Moles/Vol] 100 mmol/L 98-107 [facility] Chloride measurement 100 mmol/L 98-107 [facility] Creatinine [Mass/Vol]Ordered By: Betty Aaron on 11-14-2024 Serum or plasma creatinine measurement (mass/volume) 0.84 mg/dL 0.70-1.30 [facility] Emergency Department Summary on 11-14-2024 Emergency Department Summary [facility] Medical Records Department [address] [place] [address] Emergency Department Summary 11/14/24 MR#: [id number] Acct: [id number] Name: ALIX LEE Rep #: [id number] : 1960 64 From: Betty KILGORE PCP: Dr. Pietro Turner MD Status:DEP ER Location: ED Patient was seen and examined with physician assistant branch manager Betty All components of the history and [...] did note that he had a previous DE back in 2019 with 1 stent placed in the LAD at [place]. He states that he follows with Dr. [...] noted. Betty did discuss case with on-call rotor plate washer as noted in her note and [...] condition Supervising attending attestation: Lamberto Desai D.O. [facility] History of Present Illness Chief Complaint: [...] he had cottage cheese. He had an DE in 2019 with 1 stent placed in the LAD at [place]. He follows with Dr. Orellana and states he has had a normal stress test since then. He denies recent exertional chest pain or dyspnea. He has been very fatigued lately. No fever chills or cough. 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 Normal [facility] Eosinophil percentageOrdered By: Betty Aaron on 11-14-2024 Eosinophils/100 WBC (Bld) 3.7 % 0-5 [facility] Eosinophil percentage 3.7 % 0-5 [facility] Erythrocyte distribution wid th (RBC) [Ratio]Ordered By: Betty Aaron on 11-14-2024 Erythrocyte distribution width ratio 13.7 % 11.6-14.6 [facility] Erythrocyte distribution width (RBC) [Entitic vol] 43.7 fL 35.1-43.9 [facility] Erythrocyte distribution width standard deviation 43.7 fl 35.1-43.9 [facility] Erythrocyte distribution wid th ratioOrdered By: Betty Aaron on 11-14-2024 Erythrocyte distribution width (RBC) [Ratio] 13.7 % 11.6-14.6 [facility] Estimated glomerular filtrat ion rate (GFR) AmericanOrdered By: Betty Aaron on 11-14-2024 Estimated GFR (MDRD) Amer 119 mL/min >60 [facility] Comment on above: GFR Calc Estimated glomerular filtration rate (GFR) 119 mL/min >60 [facility] Glomerular filtration rate ( GFR) estimationOrdered By: Betty Aaron on 11-14-2024 Estimated GFR (MDRD) Non-Af Amer 98 mL/min >60 [facility] Comment on above: Non- GFR Calc Glomerular filtration rate (GFR) estimation 98 mL/min >60 [facility] Glucose measurementOrdered B y: Betty Woodssydney on 11-14-2024 Glucose [Mass/Vol] 170 mg/dL High 74-106 [facility] Comment on above: Fasting Glucose resu lt greater than or equal to 126 mg/dL suggests DIABETES MELLITUS per A.D.A. criteria. Glucose measurement 170 mg/dL High 74-106 [facility] Hematocrit Auto (Bld) [Volum e fraction]Ordered By: Betty Agnieszka on 11-14-2024 Hematocrit (Bld) [Volume fraction] 38.5 % Low 40-54 [facility] Automated blood hematocrit (percentage) 38.5 % Low 40-54 [facility] Hemoglobin measurementOrdere d By: Betty Agineszka on 11-14-2024 Hemoglobin (Bld) [Mass/Vol] 13.6 g/dL 13.0-16.5 [facility] Hemoglobin measurement 13.6 g/dL 13.0-16.5 [facility] Immature granulocytes/100 WB C Auto (Bld)Ordered By: Betty Aaron on 11-14-2024 Immature granulocytes/100 WBC (Bld) 0.600 % 0.0-0.9 [facility] Comment on above: IG% - Immature Granu locytes (promyelocytes, myelocytes and metamyelocytes) > 1% indicates that a LEFT SHIFT is Present. Automated immature granulocyte percentage 0.600 % 0.0-0.9 [facility] L501.4020on 11-14-2024 TROPONIN-I HS < 3 Low 3.0-78.0 [facility] Comment on above: Result Comment: Nelson killian Note: New Test Units and Gender Specific Reference Ranges. For more information see Policy Stat Procedure [place] High Sensitivity Troponin (TNIH) and attachments. Performed By: #### L 502.0500, L500.4050, L501.9985, L3100.5310 #### [facility] [address] [place], [address] L501.5425on 11-14-2024 TROPONIN-I HS < 3 Low 3.0-78.0 [facility] Comment on above: Order Comment: 1 Y Result Comment: Nelson killian Note: New Test Units and Gender Specific Reference Ranges. For more information see Policy Stat Procedure [place] High Sensitivity Troponin (TNIH) and attachments. Performed By: #### L 500.2500, L501.5425, L100.0100 #### [facility] [address] [place], [address] Lymphocytes Auto (Unsp spec) [#/Vol]Ordered By: Betty Aaron on 11-14-2024 Lymphocytes (Bld) [#/Vol] 1.35 10*3/uL 0.83-4.51 [facility] Absolute lymphocyte count 1.35 X10^3/uL 0.83-4.51 [facility] Lymphocytes/100 WBC Auto (Un sp spec)Ordered By: Betty Aaron on 11-14-2024 Lymphocytes/100 WBC (Bld) 21.4 % [facility] Automated lymphocyte count as percentage of total leukocytes 21.4 % [facility] MCV (RBC) [Entitic vol]Order ed By: Betty Aaron on 11-14-2024 MCV (mean corpuscular volume) determination 88.5 fL 80-94 [facility] MCV (mean corpuscular volume ) determinationOrdered By: Betty Aaron on 11-14-2024 MCV (RBC) [Entitic vol] 88.5 fL 80-94 [facility] Mean corpuscular hemoglobin (MCH) determinationOrdered By: Betty Aaron on 11-14-2024 MCH (RBC) [Entitic mass] 31.3 pg 27.0-32.0 [facility] Mean corpuscular hemoglobin (MCH) determination 31.3 pg 27.0-32.0 [facility] Mean corpuscular hemoglobin concentration (MCHC) determinationOrdered By: Betty Aaron on 11-14-2024 MCHC (RBC) [Mass/Vol] 35.3 g/dL -36 [facility] Mean corpuscular hemoglobin concentration (MCHC) determination 35.3 g/dL -36 [facility] Mean platelet volume determi nationOrdered By: Betty Aaron on 11-14-2024 Platelet mean volume (Bld) [Entitic vol] 9.6 fL 6.2-12.0 [facility] Mean platelet volume determination 9.6 fl 6.2-12.0 [facility] Monocyte percentageOrdered B y: Betty Aaron on 11-14-2024 Monocytes/100 WBC (Bld) 8.6 % 0-10 [facility] Monocyte percentage 8.6 % 0-10 [facility] Neutrophil percentageOrdered By: Betty Aaron on 11-14-2024 Neutrophils/100 WBC (Bld) 64.9 % 47-70 [facility] Neutrophil percentage 64.9 % 47-70 [facility] Nucleated red blood cell per centageOrdered By: Betty Aaron on 11-14-2024 Nucleated RBC/100 WBC (Bld) [Ratio] 0 % 0-5 [facility] Nucleated red blood cell percentage 0 % 0-5 [facility] Platelet countOrdered By: Patricia Aaron on 11-14-2024 Platelets (Bld) [#/Vol] 219 10*3/uL 150-450 [facility] Platelet count 219 K/mm3 150-450 [facility] Potassium measurementOrdered By: Betty Aaron on 11-14-2024 Potassium [Moles/Vol] 3.5 mmol/L 3.5-5.1 [facility] Potassium measurement 3.5 mmol/L 3.5-5.1 [facility] RBC Auto (Bld) [#/Vol]Ordere d By: Betty Aaron on 11-14-2024 RBC (Bld) [#/Vol] 4.35 10*6/uL Low 4.6-6.2 [facility] Automated blood erythrocyte count 4.35 M/mm3 Low 4.6-6.2 [facility] Serum anion gap measurementO rdered By: Betty Aaron on 11-14-2024 Anion gap [Moles/Vol] 4 mmol/L Low 5-15 [facility] Serum anion gap measurement 4 Low 5-15 [facility] Serum or plasma calcium michelle urement (mass/volume)Ordered By: Betty Aaron on 11-14-2024 Calcium [Mass/Vol] 9.6 mg/dL 8.5-10.1 [facility] Serum or plasma creatinine m easurement (mass/volume)Ordered By: Betty Aaron on 11-14-2024 Creatinine [Mass/Vol] 0.84 mg/dL 0.70-1.30 [facility] Comment on above: The validity of the calculated GFR & GFRAA in patients over 70 years has not been determined. Clinical correlation is essential. Serum or plasma urea nitroge n measurement (mass/volume)Ordered By: Betty Aaron on 11-14-2024 Urea nitrogen [Mass/Vol] 16 mg/dL 05-15 [facility] Sodium levelOrdered By: Betty Aaron on 11-14-2024 Sodium [Moles/Vol] 134 mmol/L Low 136-145 [facility] Sodium level 134 mmol/L Low 136-145 [facility] Troponin IOrdered By: Betty jorge on 11-14-2024 Troponin I High Sensitivity < 3 pg/mL Low 3.0-78.0 [facility] Comment on above: Please Note: New Ángela t Units and Gender Specific Reference Ranges. For more information see Policy Stat Procedure [place] High Sensitivity Troponin (TNIH) and attachments. Troponin I < 3 pg/mL Low 3.0-78.0 [facility] Urea nitrogen [Mass/Vol]Orde red By: Betty Aaron on 11-14-2024 Serum or plasma urea nitrogen measurement (mass/volume) 16 mg/dL 05-15 [facility] White blood cell (WBC) count Ordered By: Betty Aaron on 11-14-2024 WBC (Bld) [#/Vol] 6.3 10*3/uL 4.4-11.0 [facility] White blood cell (WBC) count 6.3 K/mm3 4.4-11.0 [facility] Urgent Care Visit Reporton 0 11-13-2024 Urgent Care Visit Report [facility] [address] , [address] [place] [address] OFFICE VISIT Date of Service: 11/13/24 MR#: [id number] Acct: [id number] Name: ALIX LEE Rep #: [id number] : 1960 Provider: JAME Mcgrath Age/Sex: 64/M Location: [facility] [place] Status: Signed Intake Vital [...] CLEANING Chief Complaint: WC f/u right elbow Rn Iv Therapy Required: No Is patient in pain?: No [...] pulmonary arterial hypertension 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, [address] Colonoscopy Reporton 025 Colonoscopy Report [facility] Medical Records Department [address] [place] [address] Colonoscopy Report MR#: [id number] Acct: [id number] Name: ALIX LEE Rep #: [id number] : 1960 64 From: Dimitry Camp MD PCP: Dr. Pietro Turner MD Status:[facility] Patient Name: Alix Lee Procedure Date: 11/07/2024 [...] screening purposes. Procedure Code(s): --- Professional --- 19872, Colonoscopy, flexible; diagnostic, including collection of specimen(s) by brushing or washing, when performed (separate procedure) Diagnosis Code(s): --- Professional --- Z12.11, Encounter for screening for malignant neoplasm of colon CPT copyright 2021 [employer]. All rights reserved. The codes documented in this report are preliminary and upon air value tester review may be revised to meet current compliance requirements. Dimitry Camp MD 11/07/2024 8:12:37 AM This report has been signed electronically. Number of Addenda: 0 Note Initiated On: 11/07/2024 7:39 AM 11/07/24 0812 Date Dimitry Camp MD Cosigner Signature: Date (if indicated) CC: Dr. Dimitry Camp MD; Dr. Pietro Turner MD Date Dictated: 11/07/24 0739 Date Transcribed: Insurance Producer: SADNI Signed Normal [facility] Glucose measurement at bedsi deOrdered By: Dimitry Camp on 11-07-2024 Bedside Glucose (Misc Panel) 134 mg/dL High 74-106 [facility] Comment on above: MANAGEMENT OF PATIEN T CARE PER NURSING PROTOCOL Glucose measurement at bedside 134 mg/dL High 74-106 [facility] MR/POSTOP.ANEon 11-07-2024 MR/POSTOP.ANE [facility] Medical Records Department [address] [place] [address] Anesthesia Postop Eval I 11/07/24 0811 MR#: [id number] Acct: [id number] Name: ALIX LEE Rep #: [id number] : 1960 64 From: Raudel Desai PCP: Dr. Pietro Turner MD Status:[facility] Y Race: C Location: [place] [address] Anesthesia: Postop Eval I Current Vital Signs [...] Raudel Garsia Signature: Date CC: Signed Normal [facility] MR/EBSSBBMH1sb 11-07-2024 MR/POSTOPAN2 [facility] Medical Records Department [address] [place] [address] Anesthesia Postop Eval II 11/07/24 0850 MR#: [id number] Acct: [id number] Name: ALIX LEE Rep #: [id number] : 1960 64 From: Maye Qureshi PCP: Dr. Pietro Turner MD Status:[facility] Y Race: C Location: [place] Anesthesia Postop [...] Maye Garsia Signature: Date CC: Signed Normal [facility] MR/PATJodi 11-06-2024 MR/PAT.BRITTANEY [facility] Medical Records Department [address] [place] [address] PAT - Anesthesia 11/06/24 1038 MR#: [id number] Acct: [id number] Name: ALIX LEE Rep #: [id number] : 1960 64 From: Srinivasan Jara MD PCP: Dr. Pietro Turner MD Status:PRE [facility] Y Race: C Location: EN Pre-Assessment Diagnosis/Proposed Procedure Planned Operative Procedure(s): COLONOSCOPY Anesthesia History Anesthesia History - nightman: Anesthesia History - nightman Hx Hospitalization No 11/06/24 09:54 Any Problems [...] take am of surgery PONV PONV - nightman: PONV - nightman Female No 11/06/24 09:54 HX of Motion [...] 10/14/24 13:35 Respiratory Assessment Respiratory Assessment - nightman: Respiratory Tract Infection Hx - nightman Hx Respiratory Tract Infection No 11/06/24 09:54 STOP Sleep Apnea STOP Sleep Apnea - nightman: STOP Sleep Apnea - nightman Hx Hypertension Yes: CONTROLLED WITH MEDS 11/06/24 [...] Tobacco Use History Tobacco Use History - nightman: Tobacco Use History - nightman Tobacco Use Smoking Status Former smoker 11/06/24 09:54 Hx Tobacco Use No 11/06/24 09:54 Years Smoking Packs Smoked per Day Smoking Cessation Date was No - quit smoking greater 11/06/24 09:54 within the last 15 years than 15 years ago Hx Smoking Cessation Date 10/29/06 11/06/24 09:54 Hx Smoking Cessation No 11/06/24 09:54 Counseling Hematologic Medial History Hematologic Hx - nightman: Hematologic Medical Hx - occ therapist Hx of Blood Transfusion No 11/06/24 09:54 [...] confused, unrespo /Reproduction History /Reproductive History - nightman: /Reproductive Hx- nightman Hx Now Gestational Age (in weeks): EDC: [...] pulmonary arterial hypertension 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 Normal [facility] Echo [facility] [address] [place] [address] Echo Complete 10/27/24 1359 MR#: [id number] Acct: [id number] Name: ROSAALIXCHELSIE RODGERSLAS Rep #: [id number] : 1960 64 From: Marck Orellana MD Attending Dr: Jocelyne Dickey NP-C Status: REG CLI Ordering Dr: Jocelyne Dickey DELI BAKERY CLERK DELI BAKERY CLERK-C Date: 10/27/24 Location: [facility] Sex: M C Admitted: Version 2 [...] Dictated: 10/27/24 1359 Date Transcribed: 10/27/24 1636 Insurance Producer: Signed Normal [facility] Urgent Care Visit Reporton 1 12-17-2023 Urgent Care Visit Report [facility] [address] [place] [address] OFFICE VISIT Date of Service: 10/16/24 MR#: [id number] Acct: [id number] Name: ALIX LEE Rep #: [id number] : 1960 Provider: JAME Mcgrath Age/Sex: 64/M Location: [facility] [place] Status: Signed Intake Vital [...] CLEAN Chief Complaint: WC f/u right elbow Rn Iv Therapy Required: No Is patient in pain?: No Allergies Penicillins (PCN) Allergy (Verified 10/16/24 15:44) Other lisinopril Adverse Reaction (Verified 10/16/24 15:44) cough spironolactone Adverse Reaction (Verified 10/16/24 15:44) elevated blood sugar Medications ???Medication ???Instructions ???Recorded ???Confirmed ???Type needle (disp) 18 G 18 gauge x 1 #100 ea 05/22/22 10/14/24 Rx (BD Regular Bevel [place]) nitroglycerin 0.4 mg sublingual 0.4 mg sublingual Q5-15M PRN chest 01/11/24 10/14/24 Rx tablet (Nitrostat) pain #25 tabs atorvastatin 40 mg tablet 40 mg PO QHS 90 days #90 tabs 01/14/24 10/14/24 Rx flash glucose scanning reader #1 ea 02/05/24 10/14/24 Rx (FreeStyle Jean 2 [place]) flash glucose sensor (FreeStyle #1 ea 02/05/24 [...] pulmonary arterial hypertension 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 Normal [facility] Surgery Visit Reporton 10-14 Surgery Visit Report [facility] [address] [place] [address]. [address] [place] [address] OFFICE VISIT Date of Service: 10/14/24 MR#: [id number] Acct: [id number] Name: ALIX LEE Rep #: [id number] : 1960 Provider: Dr. 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 Normal [facility] OT General Evaluationon 09-28 OT General Evaluation [facility] Occupational Therapy [facility] 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 Please let me know if there are questions or concerns regarding this plan of care. Physician Signature: Date: 10/08/24 1358 CC: JAME Mcgrath; Dr. Pietro Turner MD CK Signed For Medicare only, by signing this I certify the plan of care. _ Physicians Signature Date Normal [facility] Elbow min 3 Viewson 09-26-20 Elbow min 3 Views [facility] [address] [place] [id number] Elbow min 3 Views MR#: [id number] Acct: [id number] Name: ALIX LEE Rep #: [id number] : 1960 M 64 From: aKyden White MD PCP: Dr. Pietro Turner MD Status: REG CLI Study: Elbow min 3 Views Date of Exam: 09/26/24 Exam# [id number] Ordering Dr: Solitario Guy [id number] EXAM: XR RIGHT ELBOW COMPLETE, 3 OR [...] CC: JAME Mcgrath; Dr. Pietro Turner MD Insurance Producer: Signed Normal [facility] Urgent Care Visit Reporton 1 11-26-2023 Urgent Care Visit Report [facility] [address], [address] [place] [address] OFFICE VISIT Date of Service: 09/26/24 MR#: [id number] Acct: [id number] Name: ALIX LEE Rep #: [id number] : 1960 Provider: JAME Mcgrath Age/Sex: 64/M Location: [facility] [place] Status: Signed Intake Vital [...] CLEAN Chief Complaint: WC new, right elbow Rn Iv Therapy Required: No Is patient in pain?: Yes Allergies Penicillins (PCN) Allergy (Verified 09/26/24 08:59) Other lisinopril Adverse Reaction (Verified 09/26/24 08:59) cough spironolactone Adverse Reaction (Verified 09/26/24 08:59) elevated blood sugar Have you fallen in the past year?: [facility] Nausea vomiting Colon cancer screening Cholelithiasis Wears hearing aid Wears glasses Schizophrenia Anxiety Diabetes Low iron Fatty liver Restless legs Back pain Tic disorder History of diverticulitis Former smoker History of stress test Cardiology follow-up encounter Hypertension History of sarcoidosis Depression Pancreatitis Secondary pulmonary arterial hypertension 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 He [...] report of injury form as well as [employer] 14 filled out releasing patient back to [...] Orders: Orders (more content not included)... Normal [facility] 12 Lead EKG performed by [facility] [place] [facility] on 09-05-2024 12 Lead EKG performed by [facility] [address] [place] [address] 12 Lead EKG performed by [facility] [place] 09/05/24 1306 MR#: [id number] Acct: [id number] Name: ALIX LEE Rep #: [id number] : 1960 64 From: Jocelyne Dickey NP DELI BAKERY CLERK-C Attending Dr: VARGAS ChisholmC Status: DEP AMB Ordering Dr: Jocelyne Dickey NP DELI BAKERY CLERK-C Date: 09/05/24 Location: [facility] [place] Sex: M C Admitted: [facility] [place]/12 Lead EKG performed by [facility] [place] ECG Report Interpretation S inus Rhythm -Electronically signed on 09/11/2024 at 08:05 by Marck Orellana Software Version 8610 09/11/2409 Date Jocelyne Dickey NP DELI BAKERY CLERK-C CC: Dr. Pietro Turner MD Date Dictated: 09/05/241305 Date Transcribed: 09/05/241305 Insurance Producer: FLOR Signed Normal [facility] Cardiology Visit Reporton Cardiology Visit Report [facility] [address] [place] [address] OFFICE VISIT Date of Service: 09/05/24 MR#: [id number] Acct: [id number] Name: ALIX LEE Rep #: [id number] : 1960 Provider: MICHELLE koch Age/Sex: 64/M Location: [facility] Status: Signed HPI HPI History of Present [...] NIBP Intake Visit Reasons: PALPS (SEE NOTES) Rn Iv Therapy Required: No Is patient in pain?: No Allergies Penicillins (PCN) Allergy (Verified 09/05/24 13:10) Other lisinopril Adverse Reaction (Verified 09/05/24 13:10) cough spironolactone Adverse Reaction (Verified 09/05/24 13:10) elevated blood sugar Medications ???Medication ???Instructions ???Recorded ???Confirmed ???Type needle (disp) 18 G 18 gauge x 1 #100 ea 05/22/22 06/20/24 Rx (BD Regular Bevel [place]) nitroglycerin 0.4 mg sublingual 0.4 mg sublingual Q5-15M PRN chest 01/11/24 09/05/24 Rx tablet (Nitrostat) pain #25 tabs atorvastatin 40 mg tablet 40 mg PO QHS 90 days #90 tabs 01/14/24 09/05/24 Rx flash glucose scanning reader #1 ea 02/05/24 06/20/24 Rx (FreeStyle Jean 2 [place]) flash glucose sensor (FreeStyle #1 ea 02/05/24 [...] Rx intra (more content not included)... Normal [facility] Absolute lymphocyte countOrd ered By: Bridger Han on 02-19-2024 Lymphocytes Auto (Unsp spec) [#/Vol] 1.66 10*3/uL 0.83-4.51 [facility] Automated lymphocyte count a s percentage of total leukocytesOrdered By: Bridger Han on 02-19-2024 Lymphocytes/100 WBC Auto (Unsp spec) 21.1 % 19-41 [facility] Basophil percentageOrdered B y: Bridger Han on 02-19-2024 Basophils/100 WBC (Bld) 0.6 % 0-1 [facility] Bilirubin [Mass/Vol] 0.80 mg/dL 0.20-1.00 [facility] Comment on above: For patients on eltr ombopag therapy, use of Dimension [place] TBIL is not recommended. Chloride [Moles/Vol] 106 mmol/L 98-107 [facility] Eosinophils/100 WBC (Bld) 3.7 % 0-5 [facility] Glucose [Mass/Vol] 142 mg/dL 74-106 [facility] Comment on above: Fasting Glucose resu lt greater than or equal to 126 mg/dL suggests DIABETES MELLITUS per A.D.A. criteria. Hemoglobin (Bld) [Mass/Vol] 13.1 g/dL 13.0-16.5 [facility] Monocytes/100 WBC (Bld) 7.4 % 0-10 [facility] Neutrophils (Bld) [#/Vol] 5.3 10*3/uL 2.0-7.7 [facility] Neutrophils/100 WBC (Bld) 66.9 % 47-70 [facility] Potassium [Moles/Vol] 3.7 mmol/L 3.5-5.1 [facility] Protein [Mass/Vol] 7.1 g/dL 6.4-8.2 [facility] Sodium [Moles/Vol] 138 mmol/L 136-145 [facility] WBC (Bld) [#/Vol] 7.9 10*3/uL 4.4-11.0 [facility] Determination of erythrocyte mean corpuscular volume (MCV)Ordered By: Bridger Han on 02-19-2024 MCV (RBC) [Entitic vol] 90.3 fL 80-94 [facility] Direct bilirubinOrdered By: Bridger Han on 02-19-2024 Bilirubin.direct [Mass/Vol] 0.34 mg/dL 0.00-0.30 [facility] Erythrocyte distribution wid th ratioOrdered By: Bridger Han on 02-19-2024 Erythrocyte distribution width (RBC) [Ratio] 13.5 % 11.6-14.6 [facility] Erythrocyte distribution wid th standard deviationOrdered By: Bridger Han on 02-19-2024 Erythrocyte distribution width (RBC) [Entitic vol] 44.1 fL 35.1-43.9 [facility] Hematocrit Auto (Bld) [Volum e fraction]Ordered By: Bridger Han on 02-19-2024 Hematocrit (Bld) [Volume fraction] 39.0 % 40-54 [facility] Immature granulocytes/100 WB C Auto (Bld)Ordered By: Bridger Han on 02-19-2024 Immature granulocytes/100 WBC (Bld) 0.300 % 0.0-0.9 [facility] Comment on above: IG% - Immature Granu locytes (promyelocytes, myelocytes and metamyelocytes) > 1% indicates that a LEFT SHIFT is Present. Laboratory - Chemistry and C hemistry - challengeOrdered By: Bridger Han on 02-19-2024 ALP [Catalytic activity/Vol] 143 U/L 45-117 [facility] ALT [Catalytic activity/Vol] 89 U/L 16-61 [facility] CO2 [Moles/Vol] 26.0 mmol/L 21.0-32.0 [facility] Globulin (S) [Mass/Vol] 3.2 g/dL 2.2-4.2 [facility] Lipase [Catalytic activity/Vol] 31 U/L 13-75 [facility] Comment on above: Please note:LIPASE r evised reference range effective 23. New Lipase methodology. Expected to produce lower values than the previous assay method. NEW Reference Range: 13 - 75 U/L Magnesium [Mass/Vol] 2.5 mg/dL 1.6-2.6 [facility] Urea nitrogen/Creatinine [Mass ratio] 23.1 mg/mg 10-20 [facility] Laboratory - Hematology and Cell countsOrdered By: Bridger Han on 02-19-2024 MCH (RBC) [Entitic mass] 30.3 pg 27.0-32.0 [facility] MCHC (RBC) [Mass/Vol] 33.6 g/dL 32-36 [facility] Nucleated RBC/100 WBC (Bld) [Ratio] 0 % 0-5 [facility] Platelet mean volume (Bld) [Entitic vol] 9.7 fL 6.2-12.0 [facility] Platelets (Bld) [#/Vol] 202 10*3/uL 150-450 [facility] No Panel InformationOrdered By: Bridger Han on 02-19-2024 Troponin I High Sensitivity 4 pg/mL 3.0-78.0 [facility] Comment on above: Please Note: New Ángela t Units and Gender Specific Reference Ranges. For more information see Policy Stat Procedure [place] High Sensitivity Troponin (TNIH) and attachments. Estimated Creatinine Clearance Calc 85.76 ml/min [facility] Estimated GFR (MDRD) Amer 78 mL/min >60 [facility] Comment on above: GFR Calc Estimated GFR (MDRD) Non-Af Amer 65 mL/min >60 [facility] Comment on above: Non- GFR Calc RBC Auto (Bld) [#/Vol]Ordere d By: Bridger Han on 02-19-2024 RBC (Bld) [#/Vol] 4.32 10*6/uL 4.6-6.2 [facility] Serum or plasma calcium michelle urement (mass/volume)Ordered By: Bridger Han on 02-19-2024 Calcium [Mass/Vol] 9.2 mg/dL 8.5-10.1 [facility] Serum or plasma creatinine m easurement (mass/volume)Ordered By: Bridger Han on 02-19-2024 Creatinine [Mass/Vol] 1.21 mg/dL 0.70-1.30 [facility] Comment on above: The validity of the calculated GFR & GFRAA in patients over 70 years has not been determined. Clinical correlation is essential. Serum or plasma urea nitroge n measurement (mass/volume)Ordered By: Bridger Han on 02-19-2024 Urea nitrogen [Mass/Vol] 28 mg/dL 7-18 [facility] Thin prep Papanicolaou smear with manual screeningOrdered By: Bridger Han on 02-19-2024 Thin prep Papanicolaou smear with manual screening 3.9 g/dL 3.2-5.0 [facility] Thin prep Papanicolaou smear with manual screening 102 U/L 15-37 [facility] Thin prep Papanicolaou smear with manual screening 6 5-15 [facility] Absolute lymphocyte countOrd ered By: Pietro Turner on 01-03-2024 Lymphocytes Auto (Unsp spec) [#/Vol] 1.33 10*3/uL 0.83-4.51 [facility] Automated lymphocyte count a s percentage of total leukocytesOrdered By: Pietro Turner on 01-03-2024 Lymphocytes/100 WBC Auto (Unsp spec) 16.6 % 19-41 [facility] Basophil percentageOrdered B y: Pietro Turner on 01-03-2024 Basophils/100 WBC (Bld) 0.6 % 0-1 [facility] Bilirubin [Mass/Vol] 0.80 mg/dL 0.20-1.00 [facility] Comment on above: For patients on eltr ombopag therapy, use of Dimension [place] TBIL is not recommended. Chloride [Moles/Vol] 104 mmol/L 98-107 [facility] Cholesterol [Mass/Vol] 105 mg/dL <200 [facility] Comment on above: <200 mg/dL Desirable 200-240 mg/dL Borderline >240 mg/dL High Risk Eosinophils/100 WBC (Bld) 4.5 % 0-5 [facility] Glucose [Mass/Vol] 161 mg/dL 74-106 [facility] Comment on above: Fasting Glucose resu lt greater than or equal to 126 mg/dL suggests DIABETES MELLITUS per A.D.A. criteria. Hemoglobin (Bld) [Mass/Vol] 13.4 g/dL 13.0-16.5 [facility] Monocytes/100 WBC (Bld) 8.0 % 0-10 [facility] Neutrophils (Bld) [#/Vol] 5.6 10*3/uL 2.0-7.7 [facility] Neutrophils/100 WBC (Bld) 69.8 % 47-70 [facility] Potassium [Moles/Vol] 4.2 mmol/L 3.5-5.1 [facility] Protein [Mass/Vol] 7.1 g/dL 6.4-8.2 [facility] Sodium [Moles/Vol] 140 mmol/L 136-145 [facility] Triglyceride [Mass/Vol] 115 mg/dL <199 [facility] Comment on above: The drugs N-Acetylcy steine and Metamizole may falsely depress this assay.Serum Triglycerides Reference Interval Normal <150 mg/dL Borderline high 150 - 199 mg/dL High 200 - 499 mg/dL Very High > or = 500 mg/dL WBC (Bld) [#/Vol] 8.0 10*3/uL 4.4-11.0 [facility] Determination of erythrocyte mean corpuscular volume (MCV)Ordered By: Pietro Turner on 01-03-2024 MCV (RBC) [Entitic vol] 89.1 fL 80-94 [facility] Erythrocyte distribution wid th ratioOrdered By: Pietro Turner on 01-03-2024 Erythrocyte distribution width (RBC) [Ratio] 14.1 % 11.6-14.6 [facility] Erythrocyte distribution wid th standard deviationOrdered By: Pietro Turner on 01-03-2024 Erythrocyte distribution width (RBC) [Entitic vol] 44.9 fL 35.1-43.9 [facility] Hematocrit Auto (Bld) [Volum e fraction]Ordered By: Pietro Turner on 01-03-2024 Hematocrit (Bld) [Volume fraction] 40.1 % 40-54 [facility] Immature granulocytes/100 WB C Auto (Bld)Ordered By: Pietro Turner on 01-03-2024 Immature granulocytes/100 WBC (Bld) 0.500 % 0.0-0.9 [facility] Comment on above: IG% - Immature Granu locytes (promyelocytes, myelocytes and metamyelocytes) > 1% indicates that a LEFT SHIFT is Present. Laboratory - Chemistry and C hemistry - challengeOrdered By: Pietro Turner on 01-03-2024 Albumin/Globulin [Mass ratio] 1.4 {ratio} 0.9-2.4 [facility] ALP [Catalytic activity/Vol] 86 U/L 45-117 [facility] ALT [Catalytic activity/Vol] 44 U/L 16-61 [facility] Cholesterol in HDL [Mass/Vol] 38 mg/dL >40 [facility] Comment on above: The drugs N-Acetylcy steine and Metamizole may falsely depress this assay. Reference Range HDL <40 mg/dL Low HDL Cholesterol HDL >or= 60 mg/dL High HDL Cholesterol Cholesterol in LDL [Mass/Vol] 44 mg/dL 0-130 [facility] CO2 [Moles/Vol] 28.0 mmol/L 21.0-32.0 [facility] Globulin (S) [Mass/Vol] 3.0 g/dL 2.2-4.2 [facility] Urea nitrogen/Creatinine [Mass ratio] 24.8 mg/mg 10-20 [facility] Laboratory - Hematology and Cell countsOrdered By: Pietro Turner on 01-03-2024 MCH (RBC) [Entitic mass] 29.8 pg 27.0-32.0 [facility] MCHC (RBC) [Mass/Vol] 33.4 g/dL 32-36 [facility] Nucleated RBC/100 WBC (Bld) [Ratio] 0 % 0-5 [facility] Platelet mean volume (Bld) [Entitic vol] 9.3 fL 6.2-12.0 [facility] Platelets (Bld) [#/Vol] 216 10*3/uL 150-450 [facility] No Panel InformationOrdered By: Pietro Turner on 01-03-2024 Estimated GFR (MDRD) Amer 92 mL/min >60 [facility] Comment on above: GFR Calc Estimated GFR (MDRD) Non-Af Amer 76 mL/min >60 [facility] Comment on above: Non- GFR Calc Insulin Level 6.7 mU/L 2.6-37.6 [facility] Vitamin D 25-Hydroxy 31.9 ng/mL [facility] Comment on above: Vitamin D 25(OH) Sta tus Range Deficiency <20 ng/mL (50nmol/L) Insufficiency 20 - 30 ng/mL (50 - 75 nmol/L) Sufficiency 30 - 100 ng/mL (75 - 250 nmol/L) Toxicity >100 ng/mL (>250 nmol/L) VLDL Cholesterol 23 mg/dL 5-40 [facility] RBC Auto (Bld) [#/Vol]Ordere d By: Pietro Turner on 01-03-2024 RBC (Bld) [#/Vol] 4.50 10*6/uL 4.6-6.2 [facility] Serum or plasma calcium michelle urement (mass/volume)Ordered By: Pietro Turner on 01-03-2024 Calcium [Mass/Vol] 9.1 mg/dL 8.5-10.1 [facility] Serum or plasma creatinine m easurement (mass/volume)Ordered By: Pietro Turner on 01-03-2024 Creatinine [Mass/Vol] 1.05 mg/dL 0.70-1.30 [facility] Comment on above: The validity of the calculated GFR & GFRAA in patients over 70 years has not been determined. Clinical correlation is essential. Serum or plasma thyroid stim ulating hormone (TSH) measurement (units/volume)Ordered By: Pietro Turner on 01-03-2024 TSH Qn 2.26 uIU/mL 0.358-3.74 [facility] Serum or plasma urea nitroge n measurement (mass/volume)Ordered By: Pietro Turner on 01-03-2024 Urea nitrogen [Mass/Vol] 26 mg/dL 7-18 [facility] Thin prep Papanicolaou smear with manual screeningOrdered By: Pietro Turner on 01-03-2024 Thin prep Papanicolaou smear with manual screening 4.1 g/dL 3.2-5.0 [facility] Thin prep Papanicolaou smear with manual screening 26 U/L 15-37 [facility] Thin prep Papanicolaou smear with manual screening 8 5-15 [facility] Whole blood hemoglobin A1c/t otal hemoglobin ratio (mass fraction)Ordered By: Pietro Turner on 01-03-2024 HbA1c (Bld) [Mass fraction] 7.4 % 3.8-5.6 [facility] Comment on above: Normal < 5.7 % Predi abetic 5.7 - 6.4 % Diabetic >or= 6.5 % Please note range changes. Raegan 10-08-2023 CNPN Telephone (UCTR) ALIX LEE ([id number]) 1960 M Date Time Provider Department 10/08/23 [facility] During your visit today, we recorded the following information about you: Amanda Foster 10/08/2023 2:42 PM Signed Patient requesting a note sent in [employer] for employer. Poncho Michelle MD 10/08/2023 2:54 [...] Encounter Status:Closed by AMANDA FOSTER on 10/08/23 [facility] ([id number]) 1960 Date Time Provider Department 10/08/23 KASEY [...] return the following day. Eileen Boudreaux LPN, APRN.[facility] 10/08/2023 2:31 PM Signed Patient needs [...] Encounter Status:Closed by AMANDA FOSTER on 10/08/23 [facility] Telephone (UCWSTR) ALIX LEE ([id number]) 1960 M Date Time Provider Department 10/06/23 [...] duration of time he is taking Paxlovid. Mleissa Milan APRN.CLINICAL EXERCISE SPECIALIST HyunAnna hyattissa 10/08/2023 1:55 PM Signed Patient [...] Encounter Status:Closed by AMANDA FOSTER on 10/08/23 [facility] Bear 10-05-2023 [facility] Office Visit (UCWSTR ) ALIX LEE ([id number]) 1960 M Date Time Provider Department 10/05/23 [...] results from lab work dated: 09/24/2023 from [facility]. eGFR: 69 BUN: 23 Creatinine: 1.15 [...] Discussed expected course of illness Melissa Milan APRN.CLINICAL EXERCISE SPECIALIST Beginning Home Isolation Isolation is used to [...] to your local emergency facility: Notify the heater operator that you are seeking care for [...] possible. If (more content not included)... Normal [facility] FLUABV + SARS-CoV-2 Pnl Resp JAZMINE+prbon 10-05-2023 Influenza virus A and B RNA and SARS-CoV-2 (COVID-19) N gene panel JAZMINE+probe (Resp) COVID 19 RESULT: Detected The method used is RT-PCR or an equivalent NAAT method. Reference Range (the expected result in uninfected individuals): Not detected INFLUENZA A PCR: Not detected INFLUENZA B PCR: Not detected Abnormal [facility] Comment on above: Performed By: #### [id number] #### [facility] CLIA [id number] [address] [place] [address] [place] [facility] Absolute lymphocyte countOrd ered By: Pietro Turner on 09-24-2023 Lymphocytes Auto (Unsp spec) [#/Vol] 1.45 10*3/uL 0.83-4.51 [facility] Basophil percentageOrdered B y: Pietro Turner on 09-24-2023 Basophils/100 WBC (Bld) 0.8 % 0-1 [facility] Bilirubin [Mass/Vol] 0.50 mg/dL 0.20-1.00 [facility] Comment on above: For patients on eltr ombopag therapy, use of Dimension [place] TBIL is not recommended. Chloride [Moles/Vol] 107 mmol/L 98-107 [facility] Cholesterol [Mass/Vol] 106 mg/dL <200 [facility] Comment on above: <200 mg/dL Desirable 200-240 mg/dL Borderline >240 mg/dL High Risk Eosinophils/100 WBC (Bld) 4.6 % 0-5 [facility] Glucose [Mass/Vol] 184 mg/dL 74-106 [facility] Comment on above: Fasting Glucose resu lt greater than or equal to 126 mg/dL suggests DIABETES MELLITUS per A.D.A. criteria. Neutrophils (Bld) [#/Vol] 5.4 10*3/uL 2.0-7.7 [facility] Neutrophils/100 WBC (Bld) 68.0 % 47-70 [facility] Potassium [Moles/Vol] 4.0 mmol/L 3.5-5.1 [facility] Protein [Mass/Vol] 7.3 g/dL 6.4-8.2 [facility] Sodium [Moles/Vol] 138 mmol/L 136-145 [facility] Testosterone [Mass/Vol] 430 ng/dL 264-916 [facility] Comment on above: Adult male reference interval is based on a population ofhealthy nonobese males (BMI <30) between 19 and 39 yearsold. Rick et.al. JCEM 2017,102;2170-0686. PMID:[id number]. Triglyceride [Mass/Vol] 352 mg/dL <199 [facility] Comment on above: The drugs N-Acetylcy steine and Metamizole may falsely depress this assay.Serum Triglycerides Reference Interval Normal <150 mg/dL Borderline high 150 - 199 mg/dL High 200 - 499 mg/dL Very High > or = 500 mg/dL WBC (Bld) [#/Vol] 7.9 10*3/uL 4.4-11.0 [facility] Blood erythrocytes count (nu mber/volume)Ordered By: Pietro Turner on 09-24-2023 RBC (Bld) [#/Vol] 4.46 10*6/uL 4.6-6.2 [facility] Blood hemoglobin measurement (mass/volume)Ordered By: Pietro Turner on 09-24-2023 Hemoglobin (Bld) [Mass/Vol] 13.2 g/dL 13.0-16.5 [facility] Blood lymphocytes/100 leukoc ytesOrdered By: Pietro Turner on 09-24-2023 Lymphocytes/100 WBC (Bld) 18.4 % 19-41 [facility] Blood monocytes/100 leukocyt esOrdered By: Pietro Turner on 09-24-2023 Monocytes/100 WBC (Bld) 7.7 % 0-10 [facility] Blood platelet mean volumeOr dered By: Pietro Turner on 09-24-2023 Platelet mean volume (Bld) [Entitic vol] 9.3 fL 6.2-12.0 [facility] Determination of erythrocyte mean corpuscular volume (MCV)Ordered By: Pietro Turner on 09-24-2023 MCV (RBC) [Entitic vol] 87.9 fL 80-94 [facility] Free testosterone percentage Ordered By: Pietro Turner on 09-24-2023 Testosterone Free/Testosterone.tota l [Mass fraction] 2.77 % 1.50-4.20 [facility] Comment on above: Performed at: [address] [id number] Director: Geovanny Moore PhD, Phone: [phone] at: [address] [id number] Director: Lyle Alves MD, Phone: [phone] Hematocrit Auto (Bld) [Volum e fraction]Ordered By: Pietro Turner on 09-24-2023 Hematocrit (Bld) [Volume fraction] 39.2 % 40-54 [facility] Laboratory - Chemistry and C hemistry - challengeOrdered By: Pietro Turner on 09-24-2023 ALP [Catalytic activity/Vol] 110 U/L 45-117 [facility] ALT [Catalytic activity/Vol] 47 U/L 16-61 [facility] CO2 [Moles/Vol] 23.0 mmol/L 21.0-32.0 [facility] Globulin (S) [Mass/Vol] 3.2 g/dL 2.2-4.2 [facility] Urea nitrogen/Creatinine [Mass ratio] 20.0 mg/mg 10-20 [facility] Laboratory - Hematology and Cell countsOrdered By: Pietro Turner on 09-24-2023 Erythrocyte distribution width (RBC) [Entitic vol] 42.0 fL 35.1-43.9 [facility] Erythrocyte distribution width (RBC) [Ratio] 13.2 % 11.6-14.6 [facility] Immature granulocytes/100 WBC (Bld) 0.500 % 0.0-0.9 [facility] Comment on above: IG% - Immature Granu locytes (promyelocytes, myelocytes and metamyelocytes) > 1% indicates that a LEFT SHIFT is Present. MCH (RBC) [Entitic mass] 29.6 pg 27.0-32.0 [facility] Nucleated RBC/100 WBC (Bld) [Ratio] 0 % 0-5 [facility] MCHC Auto (RBC) [Mass/Vol]Or dered By: Pietro Turner on 09-24-2023 MCHC (RBC) [Mass/Vol] 33.7 g/dL 32-36 [facility] No Panel InformationOrdered By: Pietro Turner on 09-24-2023 Estimated GFR (MDRD) Amer 83 mL/min >60 [facility] Comment on above: GFR Calc Estimated GFR (MDRD) Non-Af Amer 69 mL/min >60 [facility] Comment on above: Non- GFR Calc Thyroid Stimulating Hormone (TSH) 2.38 uIU/mL 0.358-3.74 [facility] Vitamin D 25-Hydroxy 24.9 ng/mL [facility] Comment on above: Vitamin D 25(OH) Sta tus Range Deficiency <20 ng/mL (50nmol/L) Insufficiency 20 - 30 ng/mL (50 - 75 nmol/L) Sufficiency 30 - 100 ng/mL (75 - 250 nmol/L) Toxicity >100 ng/mL (>250 nmol/L) Platelets bldOrdered By: Britni Turner on 09-24-2023 Platelets (Bld) [#/Vol] 201 10*3/uL 150-450 [facility] Serum or plasma albumin michelle urement (mass/volume)Ordered By: Pietro Turner on 09-24-2023 Albumin [Mass/Vol] 4.1 g/dL 3.2-5.0 [facility] Serum or plasma albumin/glob ulin mass ratioOrdered By: Pietro Turner on 09-24-2023 Albumin/Globulin [Mass ratio] 1.3 {ratio} 0.9-2.4 [facility] Serum or plasma calcium michelle urement (mass/volume)Ordered By: Pietro Turner on 09-24-2023 Calcium [Mass/Vol] 8.7 mg/dL 8.5-10.1 [facility] Serum or plasma cholesterol in HDL measurement (mass/volume)Ordered By: Pietro Turner on 09-24-2023 Cholesterol in HDL [Mass/Vol] 34 mg/dL >40 [facility] Comment on above: The drugs N-Acetylcy steine and Metamizole may falsely depress this assay. Reference Range HDL <40 mg/dL Low HDL Cholesterol HDL >or= 60 mg/dL High HDL Cholesterol Serum or plasma cholesterol in VLDL measurement (mass/volume)Ordered By: Pietro Turner on 09-24-2023 Cholesterol in VLDL [Mass/Vol] 70 mg/dL 5-40 [facility] Serum or plasma creatinine m easurement (mass/volume)Ordered By: Pietro Turner on 09-24-2023 Creatinine [Mass/Vol] 1.15 mg/dL 0.70-1.30 [facility] Comment on above: The validity of the calculated GFR & GFRAA in patients over 70 years has not been determined. Clinical correlation is essential. Serum or plasma low density lipoprotein (LDL) cholesterol measurement (mass/volume)Ordered By: Pietro Turner on 09-24-2023 Cholesterol in LDL [Mass/Vol] 2 mg/dL 0-130 [facility] Serum or plasma testosterone free measurement (mass/volume)Ordered By: Pietro Turner on 09-24-2023 Testosterone Free [Mass/Vol] 11.91 ng/dL 5.00-21.00 [facility] Serum or plasma urea nitroge n measurement (mass/volume)Ordered By: Pietro Turner on 09-24-2023 Urea nitrogen [Mass/Vol] 23 mg/dL 7-18 [facility] Thin prep Papanicolaou smear with manual screeningOrdered By: Pietro Turner on 09-24-2023 Thin prep Papanicolaou smear with manual screening 25 U/L 15-37 [facility] Thin prep Papanicolaou smear with manual screening 8 5-15 [facility] Whole blood hemoglobin A1c/t otal hemoglobin ratio (mass fraction)Ordered By: Pietro Turner on 09-24-2023 HbA1c (Bld) [Mass fraction] 6.9 % 3.8-5.6 [facility] Comment on above: Normal < 5.7 % Predi abetic 5.7 - 6.4 % Diabetic >or= 6.5 % Please note range changes. Basophil percentageOrdered B y: Leslie Holley on 03-30-2023 Bilirubin [Mass/Vol] 0.50 mg/dL 0.20-1.00 [facility] Comment on above: For patients on eltr ombopag therapy, use of Dimension [place] TBIL is not recommended. Chloride [Moles/Vol] 109 mmol/L 98-107 [facility] Glucose [Mass/Vol] 210 mg/dL 74-106 [facility] Comment on above: Glucose result great er than or equal to 200 mg/dLsuggests DIABETES MELLITUS per A.D.A. criteria. Potassium [Moles/Vol] 4.0 mmol/L 3.5-5.1 [facility] Comment on above: Moderate Hemolysis, Result may be falsely increased. Protein [Mass/Vol] 7.2 g/dL 6.4-8.2 [facility] Sodium [Moles/Vol] 140 mmol/L 136-145 [facility] Laboratory - Chemistry and C hemistry - challengeOrdered By: Leslie Holley on 03-30-2023 ALP [Catalytic activity/Vol] 110 U/L 45-117 [facility] ALT [Catalytic activity/Vol] 40 U/L 16-61 [facility] CO2 [Moles/Vol] 24.0 mmol/L 21.0-32.0 [facility] Globulin (S) [Mass/Vol] 3.2 g/dL 2.2-4.2 [facility] Urea nitrogen/Creatinine [Mass ratio] 25.6 mg/mg 10-20 [facility] No Panel InformationOrdered By: Leslie Holley on 03-30-2023 Estimated GFR (MDRD) Amer 78 mL/min >60 [facility] Comment on above: GFR Calc Estimated GFR (MDRD) Non-Af Amer 65 mL/min >60 [facility] Comment on above: Non- GFR Calc Serum or plasma C reactive p rotein measurement (mass/volume)Ordered By: Leslie Holley on 03-30-2023 CRP [Mass/Vol] mg/L 0.0-3.0 [facility] Comment on above: C-Reactive Protein ( CRP) provides useful information for thediagnosis, therapy and monitoring of inflammatory processesand associated diseases. For the evaluation of Relative Riskfor Cardiovascular Disease, a High Sensitivity CRP (HSCRP)should be ordered. Serum or plasma albumin michelle urement (mass/volume)Ordered By: Leslie Holley on 03-30-2023 Albumin [Mass/Vol] 4.0 g/dL 3.2-5.0 [facility] Serum or plasma albumin/glob ulin mass ratioOrdered By: Leslie Holley on 03-30-2023 Albumin/Globulin [Mass ratio] 1.2 {ratio} 0.9-2.4 [facility] Serum or plasma calcium michelle urement (mass/volume)Ordered By: Leslie Holley on 03-30-2023 Calcium [Mass/Vol] 9.6 mg/dL 8.5-10.1 [facility] Serum or plasma creatinine m easurement (mass/volume)Ordered By: Leslie Holley on 03-30-2023 Creatinine [Mass/Vol] 1.21 mg/dL 0.70-1.30 [facility] Comment on above: The validity of the calculated GFR & GFRAA in patients over 70 years has not been determined. Clinical correlation is essential. Serum or plasma urea nitroge n measurement (mass/volume)Ordered By: Leslie Holley on 03-30-2023 Urea nitrogen [Mass/Vol] 31 mg/dL 7-18 [facility] Thin prep Papanicolaou smear with manual screeningOrdered By: Leslie Holley on 03-30-2023 Thin prep Papanicolaou smear with manual screening 32 U/L 15-37 [facility] Comment on above: Moderate Hemolysis, Result may be falsely increased. Thin prep Papanicolaou smear with manual screening 7 5-15 [facility] Absolute lymphocyte countOrd ered By: Dr. Turner on 01-22-2023 Lymphocytes Auto (Unsp spec) [#/Vol] 1.71 10*3/uL 0.83-4.51 [facility] Basophil percentageOrdered B y: Dr. Turner on 01-22-2023 Basophils/100 WBC (Bld) 0.7 % 0-1 [facility] Bilirubin [Mass/Vol] 0.80 mg/dL 0.20-1.00 [facility] Comment on above: For patients on eltr ombopag therapy, use of Dimension [place] TBIL is not recommended. Chloride [Moles/Vol] 106 mmol/L 98-107 [facility] Eosinophils/100 WBC (Bld) 6.3 % 0-5 [facility] Glucose [Mass/Vol] 113 mg/dL 74-106 [facility] Comment on above: Fasting Glucose resu lt from 100 to 125 mg/dL suggests IMPAIRED HOMEOSTASIS per A.D.A. criteria. Neutrophils (Bld) [#/Vol] 5.1 10*3/uL 2.0-7.7 [facility] Neutrophils/100 WBC (Bld) 62.8 % 47-70 [facility] Potassium [Moles/Vol] 3.9 mmol/L 3.5-5.1 [facility] Protein [Mass/Vol] 7.3 g/dL 6.4-8.2 [facility] Sodium [Moles/Vol] 137 mmol/L 136-145 [facility] Testosterone [Mass/Vol] 306 ng/dL 264-916 [facility] Comment on above: Adult male reference interval is based on a population ofhealthy nonobese males (BMI <30) between 19 and 39 yearsold. Rick et.al. JCEM 2017,102;1459-8773. PMID:[id number]. WBC (Bld) [#/Vol] 8.2 10*3/uL 4.4-11.0 [facility] Blood erythrocytes count (nu mber/volume)Ordered By: Dr. Turner on 01-22-2023 RBC (Bld) [#/Vol] 4.15 10*6/uL 4.6-6.2 [facility] Blood hemoglobin measurement (mass/volume)Ordered By: Dr. Turner on 01-22-2023 Hemoglobin (Bld) [Mass/Vol] 12.6 g/dL 13.0-16.5 [facility] Blood lymphocytes/100 leukoc ytesOrdered By: Dr. Turner on 01-22-2023 Lymphocytes/100 WBC (Bld) 20.9 % 19-41 [facility] Blood monocytes/100 leukocyt esOrdered By: Dr. Turner on 01-22-2023 Monocytes/100 WBC (Bld) 8.9 % 0-10 [facility] Blood platelet mean volumeOr dered By: Dr. Turner on 01-22-2023 Platelet mean volume (Bld) [Entitic vol] 9.4 fL 6.2-12.0 [facility] Determination of erythrocyte mean corpuscular volume (MCV)Ordered By: Dr. Turner on 01-22-2023 MCV (RBC) [Entitic vol] 90.1 fL 80-94 [facility] Free testosterone percentage Ordered By: Dr. Turner on 01-22-2023 Testosterone Free/Testosterone.tota l [Mass fraction] 3.19 % 1.50-4.20 [facility] Comment on above: Performed at: [address] [id number] Director: Geovanny Moore PhD, Phone: [phone] at: [facility] Lab[address] [id number] Director: Lyle Alves MD, Phone: [phone] Hematocrit Auto (Bld) [Volum e fraction]Ordered By: Dr. Turner on 01-22-2023 Hematocrit (Bld) [Volume fraction] 37.4 % 40-54 [facility] Iron measurement (mass/mass) Ordered By: Dr. Turner on 01-22-2023 Iron (Unsp spec) [Mass/Mass] 81 ug/dL 65-175 [facility] Laboratory - Chemistry and C hemistry - challengeOrdered By: Dr. Turner on 01-22-2023 ALP [Catalytic activity/Vol] 108 U/L 45-117 [facility] ALT [Catalytic activity/Vol] 56 U/L 16-61 [facility] CO2 [Moles/Vol] 25.0 mmol/L 21.0-32.0 [facility] Cobalamin (Vitamin B12) [Mass/Vol] 701 pg/mL 211-911 [facility] Globulin (S) [Mass/Vol] 3.3 g/dL 2.2-4.2 [facility] Urea nitrogen/Creatinine [Mass ratio] 22.0 mg/mg 10-20 [facility] Laboratory - Hematology and Cell countsOrdered By: Dr. Turner on 01-22-2023 Erythrocyte distribution width (RBC) [Entitic vol] 45.6 fL 35.1-43.9 [facility] Erythrocyte distribution width (RBC) [Ratio] 14.1 % 11.6-14.6 [facility] Immature granulocytes/100 WBC (Bld) 0.400 % 0.0-0.9 [facility] Comment on above: IG% - Immature Granu locytes (promyelocytes, myelocytes and metamyelocytes) > 1% indicates that a LEFT SHIFT is Present. MCH (RBC) [Entitic mass] 30.4 pg 27.0-32.0 [facility] Nucleated RBC/100 WBC (Bld) [Ratio] 0 % 0-5 [facility] MCHC Auto (RBC) [Mass/Vol]Or dered By: Dr. Turner on 01-22-2023 MCHC (RBC) [Mass/Vol] 33.7 g/dL 32-36 [facility] No Panel InformationOrdered By: Dr. Turner on 01-22-2023 Estimated GFR (MDRD) Amer 81 mL/min >60 [facility] Comment on above: GFR Calc Estimated GFR (MDRD) Non-Af Amer 67 mL/min >60 [facility] Comment on above: Non- GFR Calc Thyroid Stimulating Hormone (TSH) 3.33 uIU/mL 0.358-3.74 [facility] Total Iron Binding Capacity 378 ug/dL 250-450 [facility] Vitamin D 25-Hydroxy 34.5 ng/mL [facility] Comment on above: Vitamin D 25(OH) Sta tus Range Deficiency <20 ng/mL (50nmol/L) Insufficiency 20 - 30 ng/mL (50 - 75 nmol/L) Sufficiency 30 - 100 ng/mL (75 - 250 nmol/L) Toxicity >100 ng/mL (>250 nmol/L) Platelets bldOrdered By: Dr. Turner on 01-22-2023 Platelets (Bld) [#/Vol] 196 10*3/uL 150-450 [facility] Serum or plasma albumin michelle urement (mass/volume)Ordered By: Dr. Turner on 01-22-2023 Albumin [Mass/Vol] 4.0 g/dL 3.2-5.0 [facility] Serum or plasma albumin/glob ulin mass ratioOrdered By: Dr. Turner on 01-22-2023 Albumin/Globulin [Mass ratio] 1.2 {ratio} 0.9-2.4 [facility] Serum or plasma calcium michelle urement (mass/volume)Ordered By: Dr. Turner on 01-22-2023 Calcium [Mass/Vol] 9.1 mg/dL 8.5-10.1 [facility] Serum or plasma creatinine m easurement (mass/volume)Ordered By: Dr. Turner on 01-22-2023 Creatinine [Mass/Vol] 1.18 mg/dL 0.70-1.30 [facility] Comment on above: The validity of the calculated GFR & GFRAA in patients over 70 years has not been determined. Clinical correlation is essential. Serum or plasma iron saturat ion measurement (mass fraction)Ordered By: Dr. Turner on 01-22-2023 Iron saturation [Mass fraction] 21.4 % 15.0-55.0 [facility] Serum or plasma testosterone free measurement (mass/volume)Ordered By: Dr. Turner on 01-22-2023 Testosterone Free [Mass/Vol] 9.76 ng/dL 5.00-21.00 [facility] Serum or plasma urea nitroge n measurement (mass/volume)Ordered By: Dr. Turner on 01-22-2023 Urea nitrogen [Mass/Vol] 26 mg/dL 7-18 [facility] Thin prep Papanicolaou smear with manual screeningOrdered By: Dr. Turner on 01-22-2023 Thin prep Papanicolaou smear with manual screening 32 U/L 15-37 [facility] Thin prep Papanicolaou smear with manual screening 6 5-15 [facility] Whole blood hemoglobin A1c/t otal hemoglobin ratio (mass fraction)Ordered By: Dr. Turner on 01-22-2023 HbA1c (Bld) [Mass fraction] 6.8 % 3.8-5.6 [facility] Comment on above: Normal < 5.7 % Predi abetic 5.7 - 6.4 % Diabetic >or= 6.5 % Please note range changes. Absolute lymphocyte counton 10-18-2022 Lymphocytes Auto (Unsp spec) [#/Vol] 1.42 10*3/uL 0.83-4.51 [facility] Work Phone: Basophil percentageon 2021 Basophils/100 WBC (Bld) 0.9 % 0-1 [facility] Work Phone: Bilirubin [Mass/Vol] 0.70 mg/dL 0.20-1.00 [facility] Work Phone: Comment on above: For patients on eltr ombopag therapy, use of Dimension [place] TBIL is not recommended. Chloride [Moles/Vol] 103 mmol/L 98-107 [facility] Work Phone: Cholesterol [Mass/Vol] 109 mg/dL <200 [facility] Work Phone: Comment on above: <200 mg/dL Desirable 200-240 mg/dL Borderline >240 mg/dL High Risk Eosinophils/100 WBC (Bld) 5.4 % 0-5 [facility] Work Phone: Glucose [Mass/Vol] 175 mg/dL 74-106 [facility] Work Phone: Comment on above: Fasting Glucose resu lt greater than or equal to 126 mg/dL suggests DIABETES MELLITUS per A.D.A. criteria. Neutrophils (Bld) [#/Vol] 5.3 10*3/uL 2.0-7.7 [facility] Work Phone: Neutrophils/100 WBC (Bld) 66.0 % 47-70 [facility] Work Phone: Potassium [Moles/Vol] 4.4 mmol/L 3.5-5.1 [facility] Work Phone: Protein [Mass/Vol] 7.6 g/dL 6.4-8.2 [facility] Work Phone: Sodium [Moles/Vol] 136 mmol/L 136-145 [facility] Work Phone: Triglyceride [Mass/Vol] 212 mg/dL <199 [facility] Work Phone: Comment on above: The drugs N-Acetylcy steine and Metamizole may falsely depress this assay.Serum Triglycerides Reference Interval Normal <150 mg/dL Borderline high 150 - 199 mg/dL High 200 - 499 mg/dL Very High > or = 500 mg/dL WBC (Bld) [#/Vol] 8.0 10*3/uL 4.4-11.0 [facility] Work Phone: Blood erythrocytes count (nu mber/volume)on 10-18-2022 RBC (Bld) [#/Vol] 4.32 10*6/uL 4.6-6.2 [facility] Work Phone: Blood hemoglobin measurement (mass/volume)on 10-18-2022 Hemoglobin (Bld) [Mass/Vol] 13.3 g/dL 13.0-16.5 [facility] Work Phone: Blood lymphocytes/100 leukoc yteson 10-18-2022 Lymphocytes/100 WBC (Bld) 17.7 % 19-41 [facility] Work Phone: Blood monocytes/100 leukocyt eson 10-18-2022 Monocytes/100 WBC (Bld) 9.5 % 0-10 [facility] Work Phone: Blood platelet mean volumeon 10-18-2022 Platelet mean volume (Bld) [Entitic vol] 9.6 fL 6.2-12.0 [facility] Work Phone: Determination of erythrocyte mean corpuscular volume (MCV)on 10-18-2022 MCV (RBC) [Entitic vol] 88.0 fL 80-94 [facility] Work Phone: Hematocrit Auto (Bld) [Volum e fraction]on 10-18-2022 Hematocrit (Bld) [Volume fraction] 38.0 % 40-54 [facility] Work Phone: Laboratory - Chemistry and C hemistry - challengeon 10-18-2022 ALP [Catalytic activity/Vol] 111 U/L 45-117 [facility] Work Phone: ALT [Catalytic activity/Vol] 65 U/L 16-61 [facility] Work Phone: CO2 [Moles/Vol] 24.0 mmol/L 21.0-32.0 [facility] Work Phone: [phone] Free T4 [Mass/Vol] 0.98 ng/dL 0.76-1.46 [facility] Work Phone: Globulin (S) [Mass/Vol] 3.5 g/dL 2.2-4.2 [facility] Work Phone: Urea nitrogen/Creatinine [Mass ratio] 18.7 mg/mg 10-20 [facility] Work Phone: Laboratory - Hematology and Cell countson 10-18-2022 Erythrocyte distribution width (RBC) [Entitic vol] 44.0 fL 35.1-43.9 [facility] Work Phone: Erythrocyte distribution width (RBC) [Ratio] 13.8 % 11.6-14.6 [facility] Work Phone: Immature granulocytes/100 WBC (Bld) 0.500 % 0.0-0.9 [facility] Work Phone: Comment on above: IG% - Immature Granu locytes (promyelocytes, myelocytes and metamyelocytes) > 1% indicates that a LEFT SHIFT is Present. MCH (RBC) [Entitic mass] 30.8 pg 27.0-32.0 [facility] Work Phone: Nucleated RBC/100 WBC (Bld) [Ratio] 0 % 0-5 [facility] Work Phone: HbA1c (Bld) [Mass fraction] 7.2 % 4.2-6.3 [facility] Work Phone: MCHC Auto (RBC) [Mass/Vol]on 10-18-2022 MCHC (RBC) [Mass/Vol] 35.0 g/dL 32-36 [facility] Work Phone: No Panel Informationon 10-18 Estimated GFR (MDRD) Amer 91 mL/min >60 [facility] Work Phone: Comment on above: GFR Calc Estimated GFR (MDRD) Non-Af Amer 75 mL/min >60 [facility] Work Phone: Comment on above: Non- GFR Calc Free Triiodothyronine (T3) pg/dL 2.9 pg/mL 2.18-3.98 [facility] Work Phone: Prostate Specific Antigen Screen 0.20 ng/mL 0.00-4.00 [facility] Work Phone: Comment on above: This test was perfor med using the TPSA assay method for [employer] chemistry system. Values obtained with differentassay methods cannot be used interchangably.When changing PSA assays in the course of monitoring apatient, additional sequential testing should be carriedout to confirm baseline values. Thyroid Stimulating Hormone (TSH) 5.02 uIU/mL 0.358-3.74 [facility] Work Phone: Platelets bldon 10-18-2022 Platelets (Bld) [#/Vol] 238 10*3/uL 150-450 [facility] Work Phone: Serum or plasma albumin michelle urement (mass/volume)on 10-18-2022 Albumin [Mass/Vol] 4.1 g/dL 3.2-5.0 [facility] Work Phone: Serum or plasma albumin/glob ulin mass ratioon 10-18-2022 Albumin/Globulin [Mass ratio] 1.2 {ratio} 0.9-2.4 [facility] Work Phone: Serum or plasma calcium michelle urement (mass/volume)on 10-18-2022 Calcium [Mass/Vol] 9.3 mg/dL 8.5-10.1 [facility] Work Phone: Serum or plasma cholesterol in HDL measurement (mass/volume)on 10-18-2022 Cholesterol in HDL [Mass/Vol] 38 mg/dL >40 [facility] Work Phone: Comment on above: The drugs N-Acetylcy steine and Metamizole may falsely depress this assay. Reference Range HDL <40 mg/dL Low HDL Cholesterol HDL >or= 60 mg/dL High HDL Cholesterol Serum or plasma cholesterol in VLDL measurement (mass/volume)on 10-18-2022 Cholesterol in VLDL [Mass/Vol] 42 mg/dL 5-40 [facility] Work Phone: Serum or plasma creatinine m easurement (mass/volume)on 10-18-2022 Creatinine [Mass/Vol] 1.07 mg/dL 0.70-1.30 [facility] Work Phone: Comment on above: The validity of the calculated GFR & GFRAA in patients over 70 years has not been determined. Clinical correlation is essential. Serum or plasma low density lipoprotein (LDL) cholesterol measurement (mass/volume)on 10-18-2022 Cholesterol in LDL [Mass/Vol] 29 mg/dL 0-130 [facility] Work Phone: Serum or plasma urea nitroge n measurement (mass/volume)on 10-18-2022 Urea nitrogen [Mass/Vol] 20 mg/dL 7-18 [facility] Work Phone: Thin prep Papanicolaou smear with manual screeningon 10-18-2022 Thin prep Papanicolaou smear with manual screening 27 U/L 15-37 [facility] Work Phone: Thin prep Papanicolaou smear with manual screening 9 5-15 [facility] Work Phone: Basophil percentageon 2021 Testosterone [Mass/Vol] 268 ng/dL 264-916 [facility] Work Phone: Comment on above: Adult male reference interval is based on a population ofhealthy nonobese males (BMI <30) between 19 and 39 yearsold. chava Cabrera.al. JCEM 2017,102;9439-4928. PMID:[id number]. Free testosterone percentage on 09-27-2022 Testosterone Free/Testosterone.tota l [Mass fraction] 2.86 % 1.50-4.20 [facility] Work Phone: Comment on above: Performed at: - [address] [id number] Director: Geovanny Moore PhD, Phone: [phone] at: - [facility] [address] [id number] Director: Lyle Alves MD, Phone: [phone] Serum or plasma testosterone free measurement (mass/volume)on 09-27-2022 Testosterone Free [Mass/Vol] 7.66 ng/dL 5.00-21.00 [facility] Work Phone: Laboratory - Hematology and Cell countson 07-19-2022 HbA1c (Bld) [Mass fraction] 7.0 % 4.2-6.3 [facility] Work Phone: Absolute lymphocyte counton 05-08-2022 Lymphocytes Auto (Unsp spec) [#/Vol] 1.49 10*3/uL 0.83-4.51 [facility] Work Phone: Basophil percentageon 2021 Basophils/100 WBC (Bld) 0.8 % 0-1 [facility] Work Phone: Bilirubin [Mass/Vol] 0.40 mg/dL 0.20-1.00 [facility] Work Phone: Comment on above: For patients on eltr ombopag therapy, use of Dimension [place] TBIL is not recommended. Chloride [Moles/Vol] 104 mmol/L 98-107 [facility] Work Phone: Eosinophils/100 WBC (Bld) 4.4 % 0-5 [facility] Work Phone: Glucose [Mass/Vol] 151 mg/dL 74-106 [facility] Work Phone: Comment on above: Fasting Glucose resu lt greater than or equal to 126 mg/dL suggests DIABETES MELLITUS per A.D.A. criteria. Neutrophils (Bld) [#/Vol] 5.3 10*3/uL 2.0-7.7 [facility] Work Phone: [phone] Neutrophils/100 WBC (Bld) 67.5 % 47-70 [facility] Work Phone: [phone] Potassium [Moles/Vol] 3.9 mmol/L 3.5-5.1 [facility] Work Phone: [phone] Protein [Mass/Vol] 6.9 g/dL 6.4-8.2 [facility] Work Phone: Sodium [Moles/Vol] 140 mmol/L 136-145 [facility] Work Phone: [phone] Testosterone [Mass/Vol] 166 ng/dL 264-916 [facility] Work Phone: Comment on above: Adult male reference interval is based on a population ofhealthy nonobese males (BMI <30) between 19 and 39 yearsold. Rick et.al. JCEM 2017,102;6816-7249. PMID:[id number]. WBC (Bld) [#/Vol] 7.9 10*3/uL 4.4-11.0 [facility] Work Phone: Blood erythrocytes count (nu mber/volume)on 05-08-2022 RBC (Bld) [#/Vol] 3.77 10*6/uL 4.6-6.2 [facility] Work Phone: Blood hemoglobin measurement (mass/volume)on 05-08-2022 Hemoglobin (Bld) [Mass/Vol] 11.7 g/dL 13.0-16.5 [facility] Work Phone: Blood lymphocytes/100 leukoc yteson 05-08-2022 Lymphocytes/100 WBC (Bld) 18.9 % 19-41 [facility] Work Phone: Blood monocytes/100 leukocyt eson 05-08-2022 Monocytes/100 WBC (Bld) 8.0 % 0-10 [facility] Work Phone: Blood platelet mean volumeon 05-08-2022 Platelet mean volume (Bld) [Entitic vol] 9.8 fL 6.2-12.0 [facility] Work Phone: Determination of erythrocyte mean corpuscular volume (MCV)on 05-08-2022 MCV (RBC) [Entitic vol] 90.2 fL 80-94 [facility] Work Phone: Free testosterone percentage on 05-08-2022 Testosterone Free/Testosterone.tota l [Mass fraction] 2.11 % 1.50-4.20 [facility] Work Phone: Comment on above: Performed at: [address] [id number] Director: Geovanny Moore PhD, Phone: [phone] at: [facility] Lab[address] [id number] Director: Lyle Alves MD, Phone: [phone] Hematocrit Auto (Bld) [Volum e fraction]on 05-08-2022 Hematocrit (Bld) [Volume fraction] 34.0 % 40-54 [facility] Work Phone: Iron measurement (mass/mass) on 05-08-2022 Iron (Unsp spec) [Mass/Mass] 55 ug/dL 65-175 [facility] Work Phone: Laboratory - Chemistry and C hemistry - challengeon 05-08-2022 ALP [Catalytic activity/Vol] 103 U/L 45-117 [facility] Work Phone: ALT [Catalytic activity/Vol] 52 U/L 16-61 [facility] Work Phone: CO2 [Moles/Vol] 28.0 mmol/L 21.0-32.0 [facility] Work Phone: Globulin (S) [Mass/Vol] 3.0 g/dL 2.2-4.2 [facility] Work Phone: Urea nitrogen/Creatinine [Mass ratio] 20.8 mg/mg 10-20 [facility] Work Phone: Laboratory - Hematology and Cell countson 05-08-2022 Erythrocyte distribution width (RBC) [Entitic vol] 43.3 fL 35.1-43.9 [facility] Work Phone: Erythrocyte distribution width (RBC) [Ratio] 13.3 % 11.6-14.6 [facility] Work Phone: Immature granulocytes/100 WBC (Bld) 0.400 % 0.0-0.9 [facility] Work Phone: Comment on above: IG% - Immature Granu locytes (promyelocytes, myelocytes and metamyelocytes) > 1% indicates that a LEFT SHIFT is Present. MCH (RBC) [Entitic mass] 31.0 pg 27.0-32.0 [facility] Work Phone: Nucleated RBC/100 WBC (Bld) [Ratio] 0 % 0-5 [facility] Work Phone: MCHC Auto (RBC) [Mass/Vol]on 05-08-2022 MCHC (RBC) [Mass/Vol] 34.4 g/dL 32-36 [facility] Work Phone: No Panel Informationon 05-08 Estimated GFR (MDRD) Amer 92 mL/min >60 [facility] Work Phone: Comment on above: GFR Calc Estimated GFR (MDRD) Non-Af Amer 76 mL/min >60 [facility] Work Phone: Comment on above: Non- GFR Calc Total Iron Binding Capacity 351 ug/dL 250-450 [facility] Work Phone: Platelets bldon 05-08-2022 Platelets (Bld) [#/Vol] 200 10*3/uL 150-450 [facility] Work Phone: Serum or plasma albumin michelle urement (mass/volume)on 05-08-2022 Albumin [Mass/Vol] 3.9 g/dL 3.2-5.0 [facility] Work Phone: Serum or plasma albumin/glob ulin mass ratioon 05-08-2022 Albumin/Globulin [Mass ratio] 1.3 {ratio} 0.9-2.4 [facility] Work Phone: Serum or plasma calcium michelle urement (mass/volume)on 05-08-2022 Calcium [Mass/Vol] 9.4 mg/dL 8.5-10.1 [facility] Work Phone: Serum or plasma creatinine m easurement (mass/volume)on 05-08-2022 Creatinine [Mass/Vol] 1.06 mg/dL 0.70-1.30 [place] [facility] Work Phone: Comment on above: The validity of the calculated GFR & GFRAA in patients over 70 years has not been determined. Clinical correlation is essential. Serum or plasma iron saturat ion measurement (mass fraction)on 05-08-2022 Iron saturation [Mass fraction] 15.7 % 15.0-55.0 [facility] Work Phone: Serum or plasma testosterone free measurement (mass/volume)on 05-08-2022 Testosterone Free [Mass/Vol] 3.50 ng/dL 5.00-21.00 [facility] Work Phone: Serum or plasma urea nitroge n measurement (mass/volume)on 05-08-2022 Urea nitrogen [Mass/Vol] 22 mg/dL 7-18 [facility] Work Phone: Thin prep Papanicolaou smear with manual screeningon 05-08-2022 Thin prep Papanicolaou smear with manual screening 34 U/L 15-37 [facility] Work Phone: Thin prep Papanicolaou smear with manual screening 8 5-15 [facility] Work Phone: Whole blood hemoglobin A1c/t otal hemoglobin ratio (mass fraction)on 05-08-2022 HbA1c (Bld) [Mass fraction] 6.2 % 3.8-5.6 [facility] Work Phone: Comment on above: Normal < 5.7 % Predi abetic 5.7 - 6.4 % Diabetic >or= 6.5 % Please note range changes. Basophil percentageon 2021 Bilirubin [Mass/Vol] 0.50 mg/dL 0.20-1.00 [facility] Work Phone: Comment on above: For patients on eltr ombopag therapy, use of Dimension [place] TBIL is not recommended. Cholesterol [Mass/Vol] 99 mg/dL <200 [facility] Work Phone: Comment on above: <200 mg/dL Desirable 200-240 mg/dL Borderline >240 mg/dL High Risk Protein [Mass/Vol] 6.9 g/dL 6.4-8.2 [facility] Work Phone: Triglyceride [Mass/Vol] 157 mg/dL <199 [facility] Work Phone: Comment on above: The drugs N-Acetylcy steine and Metamizole may falsely depress this assay.Serum Triglycerides Reference Interval Normal <150 mg/dL Borderline high 150 - 199 mg/dL High 200 - 499 mg/dL Very High > or = 500 mg/dL Direct bilirubinon 2 Bilirubin.direct [Mass/Vol] 0.14 mg/dL 0.00-0.30 [facility] Work Phone: Laboratory - Chemistry and C hemistry - challengeon 04-24-2022 ALP [Catalytic activity/Vol] 115 U/L 45-117 [facility] Work Phone: ALT [Catalytic activity/Vol] 57 U/L 16-61 [facility] Work Phone: Globulin (S) [Mass/Vol] 3.1 g/dL 2.2-4.2 [facility] Work Phone: Serum or plasma albumin michelle urement (mass/volume)on 04-24-2022 Albumin [Mass/Vol] 3.8 g/dL 3.2-5.0 [facility] Work Phone: Serum or plasma cholesterol in HDL measurement (mass/volume)on 04-24-2022 Cholesterol in HDL [Mass/Vol] 41 mg/dL >40 [facility] Work Phone: Comment on above: The drugs N-Acetylcy steine and Metamizole may falsely depress this assay. Reference Range HDL <40 mg/dL Low HDL Cholesterol HDL >or= 60 mg/dL High HDL Cholesterol Serum or plasma cholesterol in VLDL measurement (mass/volume)on 04-24-2022 Cholesterol in VLDL [Mass/Vol] 31 mg/dL 5-40 [facility] Work Phone: Serum or plasma low density lipoprotein (LDL) cholesterol measurement (mass/volume)on 04-24-2022 Cholesterol in LDL [Mass/Vol] 27 mg/dL 0-130 [facility] Work Phone: Thin prep Papanicolaou smear with manual screeningon 04-24-2022 Thin prep Papanicolaou smear with manual screening 30 U/L 15-37 [facility] Work Phone: Comment on above: Slight Hemolysis, Re sult may be falsely increased. Absolute lymphocyte counton 02-16-2022 Lymphocytes Auto (Unsp spec) [#/Vol] 1.97 10*3/uL 0.83-4.51 [facility] Work Phone: Basophil percentageon 2021 Basophils/100 WBC (Bld) 0.9 % 0-1 [facility] Work Phone: Bilirubin [Mass/Vol] 0.60 mg/dL 0.20-1.00 [facility] Work Phone: Comment on above: For patients on eltr ombopag therapy, use of [facility] [place] TBIL is not recommended. Chloride [Moles/Vol] 105 mmol/L 98-107 [facility] Work Phone: Eosinophils/100 WBC (Bld) 4.7 % 0-5 [facility] Work Phone: Glucose [Mass/Vol] 129 mg/dL 74-106 [facility] Work Phone: Comment on above: Fasting Glucose resu lt greater than or equal to 126 mg/dL suggests DIABETES MELLITUS per A.D.A. criteria. Neutrophils (Bld) [#/Vol] 5.2 10*3/uL 2.0-7.7 [facility] Work Phone: Neutrophils/100 WBC (Bld) 61.2 % 47-70 [facility] Work Phone: Potassium [Moles/Vol] 4.2 mmol/L 3.5-5.1 [facility] Work Phone: Protein [Mass/Vol] 7.1 g/dL 6.4-8.2 [facility] Work Phone: Sodium [Moles/Vol] 138 mmol/L 136-145 [facility] Work Phone: WBC (Bld) [#/Vol] 8.4 10*3/uL 4.4-11.0 [facility] Work Phone: Blood erythrocytes count (nu mber/volume)on 02-16-2022 RBC (Bld) [#/Vol] 3.96 10*6/uL 4.6-6.2 [facility]: Blood hemoglobin measurement (mass/volume)on 02-16-2022 Hemoglobin (Bld) [Mass/Vol] 12.0 g/dL 13.0-16.5 [facility] Work Phone: [phone] Blood lymphocytes/100 leukoc yteson 02-16-2022 Lymphocytes/100 WBC (Bld) 23.4 % 19-41 [facility] Work Phone: Blood monocytes/100 leukocyt eson 02-16-2022 Monocytes/100 WBC (Bld) 9.3 % 0-10 [facility] Work Phone: Blood platelet mean volumeon 02-16-2022 Platelet mean volume (Bld) [Entitic vol] 9.3 fL 6.2-12.0 [facility] Work Phone: Determination of erythrocyte mean corpuscular volume (MCV)on 02-16-2022 MCV (RBC) [Entitic vol] 88.9 fL 80-94 [facility] Work Phone: Hematocrit Auto (Bld) [Volum e fraction]on 02-16-2022 Hematocrit (Bld) [Volume fraction] 35.2 % 40-54 [facility] Work Phone: Laboratory - Chemistry and C hemistry - challengeon 02-16-2022 ALP [Catalytic activity/Vol] 106 U/L 45-117 [facility] Work Phone: ALT [Catalytic activity/Vol] 58 U/L 16-61 [facility] Work Phone: CO2 [Moles/Vol] 27.0 mmol/L 21.0-32.0 [facility] Work Phone: Globulin (S) [Mass/Vol] 3.1 g/dL 2.2-4.2 [facility] Work Phone: Urea nitrogen/Creatinine [Mass ratio] 22.8 mg/mg 10-20 [facility] Work Phone: Laboratory - Hematology and Cell countson 02-16-2022 Erythrocyte distribution width (RBC) [Entitic vol] 43.9 fL 35.1-43.9 [facility] Work Phone: Erythrocyte distribution width (RBC) [Ratio] 13.5 % 11.6-14.6 [facility] Work Phone: Immature granulocytes/100 WBC (Bld) 0.500 % 0.0-0.9 [facility] Work Phone: Comment on above: IG% - Immature Granu locytes (promyelocytes, myelocytes and metamyelocytes) > 1% indicates that a LEFT SHIFT is Present. MCH (RBC) [Entitic mass] 30.3 pg 27.0-32.0 [facility] Work Phone: Nucleated RBC/100 WBC (Bld) [Ratio] 0 % 0-5 [facility] Work Phone: MCHC Auto (RBC) [Mass/Vol]on 02-16-2022 MCHC (RBC) [Mass/Vol] 34.1 g/dL 32-36 [facility] Work Phone: No Panel Informationon 02-16 Estimated GFR (MDRD) Amer 114 mL/min >60 [facility] Work Phone: Comment on above: GFR Calc Estimated GFR (MDRD) Non-Af Amer 94 mL/min >60 [facility] Work Phone: Comment on above: Non- GFR Calc Platelets bldon 02-16-2022 Platelets (Bld) [#/Vol] 203 10*3/uL 150-450 [facility] Work Phone: Serum or plasma albumin michelle urement (mass/volume)on 02-16-2022 Albumin [Mass/Vol] 4.0 g/dL 3.2-5.0 [facility] Work Phone: Serum or plasma albumin/glob ulin mass ratioon 02-16-2022 Albumin/Globulin [Mass ratio] 1.3 {ratio} 0.9-2.4 [facility] Work Phone: Serum or plasma calcium michelle urement (mass/volume)on 02-16-2022 Calcium [Mass/Vol] 9.2 mg/dL 8.5-10.1 [facility] Work Phone: Serum or plasma creatinine m easurement (mass/volume)on 02-16-2022 Creatinine [Mass/Vol] 0.88 mg/dL 0.70-1.30 [facility] Work Phone: Comment on above: The validity of the calculated GFR & GFRAA in patients over 70 years has not been determined. Clinical correlation is essential. Serum or plasma urea nitroge n measurement (mass/volume)on 02-16-2022 Urea nitrogen [Mass/Vol] 20 mg/dL 7-18 [facility] Work Phone: Thin prep Papanicolaou smear with manual screeningon 02-16-2022 Thin prep Papanicolaou smear with manual screening 41 U/L 15-37 [facility] Work Phone: Thin prep Papanicolaou smear with manual screening 6 5-15 [facility] Work Phone: No Panel Informationon 01-11 MTHFR Thermolabile Variant DNA Anal Comment . 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 [id number]), legacy name: [id number] - Not Detected Interpretation:This result is not associated with an increased risk forhyperhomocysteinemia. See Additional Clinical Informationand Comments.Additional Clinical Information:Hyperhomocysteinemia is multifactorial involving genetic,clinical, and environmental risk factors. Reduced enzymeactivity of methylenetetrahydrofolate reductase (MTHFR) robin genetic risk factor for hyperhomocysteinemia,particularly when serum folate levels are low. There aretwo common variants in the MTHFR gene that can decreaseenzyme activity; c.665C>T (p. [id number]), legacy [id number], and c.1286A>C (p. Lwo960Iwe), legacy name [id number].These variants do not independently increase risk ofconditions [...] due to limited evidence of clinical utility(PMID: 19454479). Comments:Genetic Coordinators are available for health careproviders to discuss results at [phone] Details:Variants Analyzed: c.665C>T (p. Rhu508Tfu), legacy name:[id number] and c.1286A>C (p. [id number]), legacy name: [id number]/Limitations:DNA analysis of the MTHFR gene was performed [...] Drug Administration.References:Rachelle SE, Malachi CJ, Yoan BROOKS. [facility] PracticeGuideline: lack of evidence for MTHFR polymorphism testing.Amanda Med. 2012;15(2):153-6. doi: 10.1038/gim.2012.165.Epub 2012Oct 31. PMID: 26845064.[employer]'Committee on Practice Bulletins-Obstetrics. [facility] PracticeBulletin No. 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 2018 Apr;132(1):e18-e34. doi:10.1097/AOG.[id number]. Erratum in: Obstet Gynecol.2018 Jul;132(4):1069. PMID: 03984794.Amanda Marcus, PhD, Pamela Ca, PhD, Carina Liz, PhD, Bhavya Golden, PhD, FACMGW. Anna Davis, PhD, Josselyn Christy, PhD, Missy Buckley, PhD, FACMGPerformed at: TG - [facility] [id number] [place], [place] [id number] Director: Ryan Washington [facility], Phone: [phone] Thin prep Papanicolaou smear with manual screeningon 01-11-2022 Thin prep Papanicolaou smear with manual screening Not Reportable [facility] Work Phone: Basophil percentageon 2021 Testosterone [Mass/Vol] 232 ng/dL [facility] Work Phone: Comment on above: Adult male reference interval is based on a population ofhealthy nonobese males (BMI <30) between 19 and 39 yearsold. chava Cabrera.al. JCEM 2017,102;5233-5005. PMID:58638691. Free testosterone percentage on 12-22-2021 Testosterone Free/Testosterone.tota l [Mass fraction] 3.43 % [facility] Work Phone: Comment on above: Performed at: - [address] [id number] Director: Geovanny Moore PhD, Phone: [phone] at: [facility] [id number] Director: Lyle Alves MD, Phone: [phone] Iron measurement (mass/mass) on 12-22-2021 Iron (Unsp spec) [Mass/Mass] 93 ug/dL 65-175 [facility] Work Phone: No Panel Informationon 12-22 Total Iron Binding Capacity 394 ug/dL 250-450 [facility] Work Phone: Vitamin D 25-Hydroxy 23.3 ng/mL [facility] Work Phone: Comment on above: Vitamin D 25(OH) Sta tus Range Deficiency <20 ng/mL (50nmol/L) Insufficiency 20 - 30 ng/mL (50 - 75 nmol/L) Sufficiency 30 - 100 ng/mL (75 - 250 nmol/L) Toxicity >100 ng/mL (>250 nmol/L) Serum or plasma iron saturat ion measurement (mass fraction)on 12-22-2021 Iron saturation [Mass fraction] 23.6 % 15.0-55.0 [facility] Work Phone: Serum or plasma testosterone free measurement (mass/volume)on 12-22-2021 Testosterone Free [Mass/Vol] 7.96 ng/dL [facility] Work Phone: Absolute lymphocyte counton 10-31-2021 Lymphocytes Auto (Unsp spec) [#/Vol] 1.04 10*3/uL 0.83-4.51 [facility] Work Phone: Activated partial thrombopla stin time (aPTT) in platelet poor plasma by coagulation aon 10-31-2021 aPTT Coag (PPP) [Time] 38.4 s 24.1-36.2 [facility] Work Phone: Comment on above: Previous reported re sult: 28.2 SecondsEdited by: TPHBRIAN on 10/31/21:1314 AMENDED REPORT 10/31/21 1314 PTT previously reported as: 28.2 Seconds Basophil percentageon 2021 Basophils/100 WBC (Bld) 0.9 % 0-1 [facility] Work Phone: Chloride [Moles/Vol] 103 mmol/L 98-107 [facility] Work Phone: Eosinophils/100 WBC (Bld) 3.1 % 0-5 [facility] Work Phone: [phone] Glucose [Mass/Vol] 153 mg/dL 74-106 [facility] Work Phone: Comment on above: Fasting Glucose resu lt greater than or equal to 126 mg/dL suggests DIABETES MELLITUS per A.D.A. criteria.Please note revised GLUCOSE reference range effective 2017. Neutrophils (Bld) [#/Vol] 5.2 10*3/uL 2.0-7.7 [facility] Work Phone: [phone] Neutrophils/100 WBC (Bld) 74.5 % 47-70 [facility] Work Phone: Potassium [Moles/Vol] 3.8 mmol/L 3.5-5.1 [facility] Work Phone: Sodium [Moles/Vol] 137 mmol/L 136-145 [facility] Work Phone: [phone] WBC (Bld) [#/Vol] 7.0 10*3/uL 4.4-11.0 [facility] Work Phone: Blood erythrocytes count (nu mber/volume)on 10-31-2021 RBC (Bld) [#/Vol] 4.32 10*6/uL 4.6-6.2 [facility] Work Phone: [phone] Blood hemoglobin measurement (mass/volume)on 10-31-2021 Hemoglobin (Bld) [Mass/Vol] 12.7 g/dL 13.0-16.5 [facility] Work Phone: Blood lymphocytes/100 leukoc yteson 10-31-2021 Lymphocytes/100 WBC (Bld) 14.8 % 19-41 [facility] Work Phone: Blood monocytes/100 leukocyt eson 10-31-2021 Monocytes/100 WBC (Bld) 6.1 % 0-10 [facility] Work Phone: Blood platelet mean volumeon 10-31-2021 Platelet mean volume (Bld) [Entitic vol] 9.4 fL 6.2-12.0 [facility] Work Phone: Determination of erythrocyte mean corpuscular volume (MCV)on 10-31-2021 MCV (RBC) [Entitic vol] 84.5 fL 80-94 [facility] Work Phone: Hematocrit Auto (Bld) [Volum e fraction]on 10-31-2021 Hematocrit (Bld) [Volume fraction] 36.5 % 40-54 [facility] Work Phone: INR in Blood by Coagulation assayon 10-31-2021 INR Coag (Bld) [Relative time] 1.1 {INR} [facility] Work Phone: Comment on above: Previous reported re sult: 1.1 Edited by: HANNY on 10/31/21:1314 AMENDED REPORT 10/31/21 1314 INR previously reported as: 1.1 Laboratory - Chemistry and C hemistry - challengeon 10-31-2021 CO2 [Moles/Vol] 25.0 mmol/L 21.0-32.0 [facility] Work Phone: Urea nitrogen/Creatinine [Mass ratio] 23.3 mg/mg 10-20 [facility] Work Phone: Laboratory - Coagulationon 0 10-31-2021 PT Coag (PPP) [Time] 13.9 s 11.7-14.9 [facility] Work Phone: Comment on above: Previous reported re sult: 13.3 SECONDSEdited by: HANNY on 10/31/21:1314 AMENDED REPORT 10/31/21 1314 PROTIME previously reported as: 13.3 SECONDS Laboratory - Hematology and Cell countson 10-31-2021 Erythrocyte distribution width (RBC) [Entitic vol] 39.5 fL 35.1-43.9 [facility] Work Phone: Erythrocyte distribution width (RBC) [Ratio] 13.1 % 11.6-14.6 [facility] Work Phone: Immature granulocytes/100 WBC (Bld) 0.600 % 0.0-0.9 [facility] Work Phone: Comment on above: IG% - Immature Granu locytes (promyelocytes, myelocytes and metamyelocytes) > 1% indicates that a LEFT SHIFT is Present. MCH (RBC) [Entitic mass] 29.4 pg 27.0-32.0 [facility] Work Phone: Nucleated RBC/100 WBC (Bld) [Ratio] 0 % 0-5 [facility] Work Phone: MCHC Auto (RBC) [Mass/Vol]on 10-31-2021 MCHC (RBC) [Mass/Vol] 34.8 g/dL 32-36 [facility] Work Phone: No Panel Informationon 10-31 Estimated GFR (MDRD) Amer 117 mL/min >60 [facility] Work Phone: Comment on above: GFR Calc Estimated GFR (MDRD) Non-Af Amer 97 mL/min >60 [facility] Work Phone: Comment on above: Non- GFR Calc Platelets bldon 10-31-2021 Platelets (Bld) [#/Vol] 238 10*3/uL 150-450 [facility] Work Phone: Serum or plasma calcium michelle urement (mass/volume)on 10-31-2021 Calcium [Mass/Vol] 9.3 mg/dL 8.5-10.1 [facility] Work Phone: Serum or plasma creatinine m easurement (mass/volume)on 10-31-2021 Creatinine [Mass/Vol] 0.86 mg/dL 0.70-1.30 [facility] Work Phone: Comment on above: The validity of the calculated GFR & GFRAA in patients over 70 years has not been determined. Clinical correlation is essential. Serum or plasma urea nitroge n measurement (mass/volume)on 10-31-2021 Urea nitrogen [Mass/Vol] 20 mg/dL 7-18 [facility] Work Phone: Thin prep Papanicolaou smear with manual screeningon 10-31-2021 Thin prep Papanicolaou smear with manual screening 9 5-15 [facility] Work Phone: [phone] By: SYSTEM SYSTEM on 09-21-2021 Cobalamin (Vitamin B12) [Mass/Vol] 542 pg/mL Normal 211-911 [facility] Comment on above: Performed By: #### C BC, ADIFF, ANEU, PBNP #### [place] [address] #### LIPID, CMP, GFR #### [place] [address] FERROrdered By: SYSTEM SYSTE M on 09-21-2021 Ferritin [Mass/Vol] 53.7 ng/mL Normal 26.0-388.0 AD [facility] Comment on above: Performed By: #### C BC, ADIFF, ANEU, PBNP #### [place] [address] #### LIPID, CMP, GFR #### [place] [address] TRFOrdered By: SYSTEM SYSTEM on 09-21-2021 Transferrin [Mass/Vol] 299 mg/dL Normal 202-336 ADM Comment on above: Performed By: #### C BC, ADIFF, ANEU, PBNP #### [place] [address] #### LIPID, CMP, GFR #### [place] [address] .Auto DiffOrdered By: Glory Marinelli on 09-20-2021 Basophil, Absolute 0.00 103/mcL Normal 0.00-0.19 AO A uto Heme SS Comment on above: Performed By: #### C BC, ADIFF, ANEU, PBNP #### [place] [address] #### LIPID, CMP, GFR #### [address] [address] Basophils/100 WBC (Bld) 0.6 % Normal 0.0-2.5 AO Auto Heme SS Comment on above: Performed By: #### C BC, ADIFF, ANEU, PBNP #### [place] [address] #### LIPID, CMP, GFR #### [address] [address] Eosinophil, Absolute 0.40 103/mcL Normal 0.00-0.40 AO Auto Heme SS Comment on above: Performed By: #### C BC, ADIFF, ANEU, PBNP #### [place] [address] #### LIPID, CMP, GFR #### [address] [address] Eosinophils/100 WBC (Bld) 5.5 % Normal 0.0-7.0 AO Auto Heme SS Comment on above: Performed By: #### C BC, ADIFF, ANEU, PBNP #### [place] [address] #### LIPID, CMP, GFR #### [address] [address] Lymphocyte, Absolute 1.00 103/mcL Normal 0.77-3.85 AO Auto Heme SS Comment on above: Performed By: #### C BC, ADIFF, ANEU, PBNP #### [place] [address] #### LIPID, CMP, GFR #### [address] [address] Lymphocytes/100 WBC (Bld) 15.6 % Normal 10.0-50.0 AO Auto Heme SS Comment on above: Performed By: #### C BC, ADIFF, ANEU, PBNP #### [address] [address] #### LIPID, CMP, GFR #### [address] [address] Monocyte, Absolute 0.60 103/mcL Normal 0.15-1.00 AO A uto Heme SS Comment on above: Performed By: #### C BC, ADIFF, ANEU, PBNP #### [place] [address] #### LIPID, CMP, GFR #### [address] [address] Monocytes/100 WBC (Bld) 8.6 % Normal 1.7-13.0 AO Auto Heme SS Comment on above: Performed By: #### C BC, ADIFF, ANEU, PBNP #### [place] [address] #### LIPID, CMP, GFR #### [address] [address] Neutrophils/100 WBC (Bld) 69.7 % Normal 37.0-80.0 AO Auto Heme SS Comment on above: Performed By: #### C BC, ADIFF, ANEU, PBNP #### [place] [address] #### LIPID, CMP, GFR #### [address] [address] .GFROrdered By: HCANDAN Wilkins on 09-20-2021 GFR 100 ml/min/1.73sqm Normal [...] #### C BC, ADIFF, ANEU, PBNP #### [place] [id number] #### LIPID, CMP, GFR #### [address] [address] GFR Non- 82 ml/min/1.73sqm Normal AO Chemistry [...] #### C BC, ADIFF, ANEU, PBNP #### [place] [address] #### LIPID, CMP, GFR #### [address] [address] .NEUABSOrdered By: Glory ann on 09-20-2021 Neutrophil, Absolute 4.50 103/mcL Normal 2.85-6.16 AO Auto Heme SS Comment on above: Performed By: #### C BC, ADIFF, ANEU, PBNP #### [place] [id number] #### LIPID, CMP, GFR #### [address] [address] [id number] By: Neisha viramontes on 09-20-2021 HbA1c (Bld) [Mass fraction] 7.0 % High 4.3-6.4 AO ADM SS Comment on above: Performed By: #### C BC, ADIFF, ANEU, PBNP #### [place] [address] #### LIPID, CMP, GFR #### [place] [address] CBCOrdered By: Glory Marinelli on 09-20-2021 Erythrocyte distribution width (RBC) [Ratio] 15.6 % High 11.5-14.5 AO Auto Heme SS Comment on above: Performed By: #### C BC, ADIFF, ANEU, PBNP #### [place] [address] #### LIPID, CMP, GFR #### [place] [address] Hematocrit (Bld) [Volume fraction] 33.2 % Low 42.0-52.0 AO Auto Heme SS Comment on above: Performed By: #### C BC, ADIFF, ANEU, PBNP #### [place] [address] #### LIPID, CMP, GFR #### [place] [address] MCH (RBC) [Entitic mass] 30.2 pg Normal 27.0-31.2 AO Auto Heme SS Comment on above: Performed By: #### C BC, ADIFF, ANEU, PBNP #### [place] [address] #### LIPID, CMP, GFR #### [place] [address] MCV (RBC) [Entitic vol] 84.8 fL Normal 80.0-94.0 AO Auto Heme SS Comment on above: Performed By: #### C BC, ADIFF, ANEU, PBNP #### [place] [address] #### LIPID, CMP, GFR #### [place] [address] Platelet mean volume (Bld) [Entitic vol] 7.5 fL Normal 7.4-10.4 AO Auto Heme SS Comment on above: Performed By: #### C BC, ADIFF, ANEU, PBNP #### [place] [address] #### LIPID, CMP, GFR #### [place] [address] CBCon 09-20-2021 Hgb 11.8 G/dL Low 14.0-18.0 [facility] ([place]) Comment on above: Performed By: #### C BC, ADIFF, ANEU, PBNP #### [place] [address] #### LIPID, CMP, GFR #### [place] [address] MCHC 35.6 G/dL High 31.8-35.4 [facility] ([place]) Comment on above: Performed By: #### C BC, ADIFF, ANEU, PBNP #### [place] [address] #### LIPID, CMP, GFR #### [place] [address] Platelet 222 10 3/mcL Normal 130-400 [facility] ([place]) Comment on above: Performed By: #### C BC, ADIFF, ANEU, PBNP #### [place] [address] #### LIPID, CMP, GFR #### [place] [address] RBC 3.92 10 6/mcL Low 4.04-6.13 [facility] ([place]) Comment on above: Performed By: #### C BC, ADIFF, ANEU, PBNP #### [place] [address] #### LIPID, CMP, GFR #### [place] [address] WBC 6.40 10 3/mcL Normal 4.60-10.80 [facility] ([place]) Comment on above: Performed By: #### C BC, ADIFF, ANEU, PBNP #### [place] [address] #### LIPID, CMP, GFR #### [address] [address] CMPon 09-20-2021 Albumin Level 4.2 G/dL Normal 3.5-5.0 [facility] ([place]) Comment on above: Performed By: #### C BC, ADIFF, ANEU, PBNP #### [address] [address] #### LIPID, CMP, GFR #### [address] [address] ALT [Catalytic activity/Vol] 38 U/L Normal 16-63 [facility] ([place]) Comment on above: Performed By: #### C BC, ADIFF, ANEU, PBNP #### [place] [address] #### LIPID, CMP, GFR #### [address] [address] AST [Catalytic activity/Vol] 19 U/L Normal 10-40 [facility] ([place]) Comment on above: Performed By: #### C BC, ADIFF, ANEU, PBNP #### [place] [address] #### LIPID, CMP, GFR #### [address] [address] Bili Total 0.7 mg/dL Normal 0.2-1.0 [facility] ([place]) Comment on above: Result Comment: Use of this assay is not recommended for patients undergoing treatment with eltrombopag due to the potential for falsely elevated results. Performed By: #### C BC, ADIFF, ANEU, PBNP #### [address] [address] #### LIPID, CMP, GFR #### [address] [address] BUN/Creatinine Ratio 16 ratio Normal 7-27 [facility] ([place]) Comment on above: Performed By: #### C BC, ADIFF, ANEU, PBNP #### [place] [address] #### LIPID, CMP, GFR #### [address] [address] Total Protein 7.1 G/dL Normal 6.4-8.2 [facility] ([place]) Comment on above: Performed By: #### C BC, ADIFF, ANEU, PBNP #### [address] [address] #### LIPID, CMP, GFR #### [address] [address] CMPOrdered By: Neisha viramontes on 09-20-2021 Albumin/Globulin [Mass ratio] 1.4 {ratio} Normal 1.1-2.5 AO ADM SS Comment on above: Performed By: #### C BC, ADIFF, ANEU, PBNP #### [place] [id number] #### LIPID, CMP, GFR #### [address] [address] ALP [Catalytic activity/Vol] 115 U/L Normal 40-135 AO ADM SS Comment on above: Performed By: #### C BC, ADIFF, ANEU, PBNP #### [place] [address] #### LIPID, CMP, GFR #### [address] [address] Calcium [Mass/Vol] 9.1 mg/dL Normal 8.4-10.2 AO ADM SS Comment on above: Performed By: #### C BC, ADIFF, ANEU, PBNP #### [place] [address] #### LIPID, CMP, GFR #### [address] [address] Chloride [Moles/Vol] 102 mmol/L Normal 98-107 AO A DM SS Comment on above: Performed By: #### C BC, ADIFF, ANEU, PBNP #### [address] [address] #### LIPID, CMP, GFR #### [address] [address] CO2 [Moles/Vol] 28 mmol/L Normal 22-29 AO ADM SS Comment on above: Performed By: #### C BC, ADIFF, ANEU, PBNP #### [place] [address] #### LIPID, CMP, GFR #### [place] [address] Creatinine [Mass/Vol] 0.94 mg/dL Normal 0.70-1.30 AO ADM SS Comment on above: Performed By: #### C BC, ADIFF, ANEU, PBNP #### [place] [address] #### LIPID, CMP, GFR #### [place] [address] Electrolyte Balance 10.0 mEq/L Normal AO AD M SS Comment on above: Performed By: #### C BC, ADIFF, ANEU, PBNP #### [place] [address] #### LIPID, CMP, GFR #### [place] [address] Globulin 2.9 G/dL Normal AO ADM SS Comment on above: Performed By: #### C BC, ADIFF, ANEU, PBNP #### [place] [address] #### LIPID, CMP, GFR #### [place] [address] Glucose [Mass/Vol] 156 mg/dL High 70-105 AO ADM SS Comment on above: Performed By: #### C BC, ADIFF, ANEU, PBNP #### [place] [address] #### LIPID, CMP, GFR #### [place] [address] Potassium [Moles/Vol] 4.6 mmol/L Normal 3.5-5.1 AO ADM SS Comment on above: Performed By: #### C BC, ADIFF, ANEU, PBNP #### [place] [address] #### LIPID, CMP, GFR #### [address] [address] Sodium [Moles/Vol] 140 mmol/L Normal 136-145 AO ADM SS Comment on above: Performed By: #### C BC, ADIFF, ANEU, PBNP #### [address] [address] #### LIPID, CMP, GFR #### [place] [address] Urea nitrogen [Mass/Vol] 15 mg/dL Normal 7-18 AO ADM SS Comment on above: Performed By: #### C BC, ADIFF, ANEU, PBNP #### [address] [address] #### LIPID, CMP, GFR #### [place] [address] FEOrdered By: Neisha zhu on 09-20-2021 Iron [Mass/Vol] 59 ug/dL Low 65-175 AO ADM SS Comment on above: Performed By: #### C BC, ADIFF, ANEU, PBNP #### [address] [address] #### LIPID, CMP, GFR #### [place] [address] IBCon 09-20-2021 TIBC 363 mcg/dL Normal 250-450 [facility] ([place]) Comment on above: Performed By: #### C BC, ADIFF, ANEU, PBNP #### [place] [address] #### LIPID, CMP, GFR #### [place] [address] LABORATORYOrdered By: Jarred Metcalf on 09-20-2021 Albumin [...] #### C BC, ROZ, ANEU, PBNP #### [address] [address] #### LIPID, CMP, GFR #### [address] [address] .Auto Diffon 08-16-2021 Basophil, Absolute 0.10 10 3/mcL Normal 0.00-0.19 [facility] ([place]) Comment on above: Performed By: #### C BC, ROZ, ANEU, PBNP #### [place] [address] #### LIPID, CMP, GFR #### [address] [address] Basophils/100 WBC (Bld) 1.0 % Normal 0.0-2.5 [facility] ([place]) Comment on above: Performed By: #### C BC, ADIFF, ANEU, PBNP #### [place] [address] #### LIPID, CMP, GFR #### [address] [address] Eosinophil, Absolute 0.60 10 3/mcL High 0.00-0.40 [facility] ([place]) Comment on above: Performed By: #### C BC, ADIFF, ANEU, PBNP #### [place] [address] #### LIPID, CMP, GFR #### [address] [address] Eosinophils/100 WBC (Bld) 8.4 % High 0.0-7.0 [facility] ([place]) Comment on above: Performed By: #### C BC, ADIFF, ANEU, PBNP #### [place] [address] #### LIPID, CMP, GFR #### [address] [address] Lymphocyte, Absolute 1.40 10 3/mcL Normal 0.77-3.85 [facility] ([place]) Comment on above: Performed By: #### C BC, ADIFF, ANEU, PBNP #### [place] [address] #### LIPID, CMP, GFR #### [address] [address] Lymphocytes/100 WBC (Bld) 19.9 % Normal 10.0-50.0 [facility] ([place]) Comment on above: Performed By: #### C BC, ADIFF, ANEU, PBNP #### [place] [address] #### LIPID, CMP, GFR #### [address] [address] Monocyte, Absolute 0.70 10 3/mcL Normal 0.15-1.00 [facility] ([place]) Comment on above: Performed By: #### C BC, ADIFF, ANEU, PBNP #### [address] [address] #### LIPID, CMP, GFR #### [address] [address] Monocytes/100 WBC (Bld) 9.7 % Normal 1.7-13.0 [facility] ([place]) Comment on above: Performed By: #### C BC, ADIFF, ANEU, PBNP #### [address] [address] #### LIPID, CMP, GFR #### [address] [address] Neutrophils/100 WBC (Bld) 61.0 % Normal 37.0-80.0 [facility] ([place]) Comment on above: Performed By: #### C BC, ADIFF, ANEU, PBNP #### [address] [address] #### LIPID, CMP, GFR #### [address] [address] .GFRon 08-16-2021 GFR 94 ml/min/1.73sqm Normal [facility] ([place]) Comment on above: Result Comment: GFR Population [...] #### C BC, ADIFF, ANEU, PBNP #### [address] [address] #### LIPID, CMP, GFR #### [address] [address] GFR Non- 77 ml/min/1.73sqm Normal [facility] ([place]) Comment on above: Result Comment: GFR Population [...] #### C BC, ADIFF, ANEU, PBNP #### [address] [address] #### LIPID, CMP, GFR #### [address] [address] .NEUABSon 08-16-2021 Neutrophil, Absolute 4.20 10 3/mcL Normal 2.85-6.16 [facility] ([place]) Comment on above: Performed By: #### C BC, ADIFF, ANEU, PBNP #### [address] [address] #### LIPID, CMP, GFR #### [address] [address] BMPon 08-16-2021 BUN/Creatinine Ratio 19 ratio Normal 7-27 [facility] ([place]) Comment on above: Performed By: #### C BC, ADIFF, ANEU, PBNP #### [address] [address] #### LIPID, CMP, GFR #### [address] [address] Calcium [Mass/Vol] 9.1 mg/dL Normal 8.4-10.2 [facility] ([place]) Comment on above: Performed By: #### C BC, ADIFF, ANEU, PBNP #### [address] [address] #### LIPID, CMP, GFR #### [address] [address] Chloride [Moles/Vol] 106 mmol/L Normal 98-107 [facility] ([place]) Comment on above: Performed By: #### C BC, ADIFF, ANEU, PBNP #### [address] [address] #### LIPID, CMP, GFR #### [address] [address] CO2 [Moles/Vol] 27 mmol/L Normal 22-29 [facility] ([place]) Comment on above: Performed By: #### C BC, ADIFF, ANEU, PBNP #### [address] [address] #### LIPID, CMP, GFR #### [address] [address] Creatinine [Mass/Vol] 0.99 mg/dL Normal 0.70-1.30 [facility] ([place]) Comment on above: Performed By: #### C BC, ADIFF, ANEU, PBNP #### [address] [address] #### LIPID, CMP, GFR #### [address] [address] Electrolyte Balance 7.0 mEq/L Normal [facility] ([place]) Comment on above: Performed By: #### C BC, ADIFF, ANEU, PBNP #### [address] [address] #### LIPID, CMP, GFR #### [address] [address] Glucose [Mass/Vol] 133 mg/dL High 70-105 [facility] ([place]) Comment on above: Performed By: #### C BC, ADIFF, ANEU, PBNP #### [address] [address] #### LIPID, CMP, GFR #### [address] [address] Potassium [Moles/Vol] 4.9 mmol/L Normal 3.5-5.1 [facility] ([place]) Comment on above: Performed By: #### C BC, ADIFF, ANEU, PBNP #### [address] [address] #### LIPID, CMP, GFR #### [address] [address] Sodium [Moles/Vol] 140 mmol/L Normal 136-145 [facility] ([place]) Comment on above: Performed By: #### C BC, ADIFF, ANEU, PBNP #### [place] [address] #### LIPID, CMP, GFR #### [address] [address] Urea nitrogen [Mass/Vol] 19 mg/dL High 7-18 [facility] ([place]) Comment on above: Performed By: #### C BC, ADIFF, ANEU, PBNP #### [address] [address] #### LIPID, CMP, GFR #### [address] [address] CBCon 08-16-2021 Erythrocyte distribution width (RBC) [Ratio] 15.0 % High 11.5-14.5 [facility] ([place]) Comment on above: Performed By: #### C BC, ADIFF, ANEU, PBNP #### [place] [address] #### LIPID, CMP, GFR #### [address] [address] Hematocrit (Bld) [Volume fraction] 34.8 % Low 42.0-52.0 [facility] ([place]) Comment on above: Performed By: #### C BC, ADIFF, ANEU, PBNP #### [place] [address] #### LIPID, CMP, GFR #### [place] [address] Hgb 12.4 G/dL Low 14.0-18.0 [facility] ([place]) Comment on above: Performed By: #### C BC, ADIFF, ANEU, PBNP #### [place] [address] #### LIPID, CMP, GFR #### [place] [address] MCH (RBC) [Entitic mass] 30.7 pg Normal 27.0-31.2 [facility] ([place]) Comment on above: Performed By: #### C BC, ADIFF, ANEU, PBNP #### [place] [address] #### LIPID, CMP, GFR #### [place] [address] MCHC 35.5 G/dL High 31.8-35.4 [facility] ([place]) Comment on above: Performed By: #### C BC, ADIFF, ANEU, PBNP #### [place] [address] #### LIPID, CMP, GFR #### [place] [address] MCV (RBC) [Entitic vol] 86.4 fL Normal 80.0-94.0 [facility] ([place]) Comment on above: Performed By: #### C BC, ADIFF, ANEU, PBNP #### [place] [address] #### LIPID, CMP, GFR #### [place] [address] Platelet 246 10 3/mcL Normal 130-400 [facility] ([place]) Comment on above: Performed By: #### C BC, ADIFF, ANEU, PBNP #### [place] [address] #### LIPID, CMP, GFR #### [place] [address] Platelet mean volume (Bld) [Entitic vol] 7.6 fL Normal 7.4-10.4 [facility] ([place]) Comment on above: Performed By: #### C BC, ADIFF, ANEU, PBNP #### [place] [address] #### LIPID, CMP, GFR #### [place] [address] RBC 4.03 10 6/mcL Low 4.04-6.13 [facility] ([place]) Comment on above: Performed By: #### C BC, ADIFF, ANEU, PBNP #### [place] [address] #### LIPID, CMP, GFR #### [place] [address] WBC 6.90 10 3/mcL Normal 4.60-10.80 [facility] ([place]) Comment on above: Performed By: #### C BC, ADIFF, ANEU, PBNP #### [place] [address] #### LIPID, CMP, GFR #### [place] [address] LABORATORYOrdered By: Jarred Metcalf on 08-16-2021 Basophil, [...] [Mass/Vol] 62 pg/mL Normal 0-125 [facility] ([place]) Comment on above: Result Comment: NT-p roBNP results of less than 300 pg/mL effectively rules out acute congestive heart failure with 99% negative predictive value. Performed By: #### C BC, ADIFF, ANEU, PBNP #### [place] [address] [place], [place] [address] #### LIPID, CMP, GFR #### [address] [address] .Auto Diffon 07-06-2021 Basophil, Absolute 0.10 10 3/mcL Normal 0.00-0.27 [facility] ([place]) Comment on above: Performed By: #### C BC, ADIFF, ANEU, BMP, GFR #### [address] [address] Basophils/100 WBC (Bld) 0.9 % Normal 0.0-2.5 [facility] ([place]) Comment on above: Performed By: #### C BC, ADIFF, ANEU, BMP, GFR #### [address] [address] Eosinophil, Absolute 0.30 10 3/mcL Normal 0.00-0.65 [facility] ([place]) Comment on above: Performed By: #### C BC, ADIFF, ANEU, BMP, GFR #### [address] [address] Eosinophils/100 WBC (Bld) 5.0 % Normal 0.0-6.0 [facility] ([place]) Comment on above: Performed By: #### C BC, ADIFF, ANEU, BMP, GFR #### [address] [address] Lymphocyte, Absolute 1.20 10 3/mcL Normal 0.90-4.32 [facility] ([place]) Comment on above: Performed By: #### C BC, ADIFF, ANEU, BMP, GFR #### [address] [address] Lymphocytes/100 WBC (Bld) 16.9 % Low 20.0-40.0 [facility] ([place]) Comment on above: Performed By: #### C BC, ADIFF, ANEU, BMP, GFR #### [address] [address] Monocyte, Absolute 0.60 10 3/mcL Normal 0.09-1.40 [facility] ([place]) Comment on above: Performed By: #### C BC, ADIFF, ANEU, BMP, GFR #### [address] [address] Monocytes/100 WBC (Bld) 8.4 % Normal 2.0-13.0 [facility] ([place]) Comment on above: Performed By: #### C BC, ADIFF, ANEU, BMP, GFR #### [address] [address] Neutrophils/100 WBC (Bld) 68.8 % Normal 50.0-75.0 [facility] ([place]) Comment on above: Performed By: #### C BC, ADIFF, ANEU, BMP, GFR #### [address] [address] .GFRon 07-06-2021 GFR Non- >60 Normal [facility] ([place]) Comment on above: Result Comment: GFR Population [...] #### C BC, ADIFF, ANEU, PBNP #### [address] [address] #### LIPID, CMP, GFR #### [address] [address] GFR >60 Normal [facility] ([place]) Comment on above: Result Comment: GFR Population [...] #### C BC, ADIFF, ANEU, PBNP #### [address] [address] #### LIPID, CMP, GFR #### [address] [address] .NEUABSon 07-06-2021 Neutrophil, Absolute 4.70 10 3/mcL Normal 2.25-8.10 [facility] ([place]) Comment on above: Performed By: #### C BC, ADIFF, ANEU, PBNP #### [address] [address] #### LIPID, CMP, GFR #### [address] [address] BMPon 07-06-2021 BUN/Creatinine Ratio 13.5 ratio Normal 10.0-22.0 [facility] ([place]) Comment on above: Performed By: #### C BC, ADIFF, ANEU, PBNP #### [place] [address] #### LIPID, CMP, GFR #### [address] [address] Calcium [Mass/Vol] 9.6 mg/dL Normal 8.7-10.4 [facility] ([place]) Comment on above: Result Comment: No te - New Reference Range in effect 20 Performed By: #### C BC, ADIFF, ANEU, PBNP #### [place] [address] #### LIPID, CMP, GFR #### [address] [address] Chloride [Moles/Vol] 105 mmol/L Normal 98-110 [facility] ([place]) Comment on above: Performed By: #### C BC, ADIFF, ANEU, PBNP #### [address] [address] #### LIPID, CMP, GFR #### [address] [address] CO2 [Moles/Vol] 25 mmol/L Normal 22-32 [facility] ([place]) Comment on above: Performed By: #### C BC, ADIFF, ANEU, PBNP #### [place] [address] #### LIPID, CMP, GFR #### [address] [address] Creatinine [Mass/Vol] 0.96 mg/dL Normal 0.60-1.40 [facility] ([place]) Comment on above: Performed By: #### C BC, ADIFF, ANEU, PBNP #### [address] [address] #### LIPID, CMP, GFR #### [address] [address] Electrolyte Balance 8.0 mEq/L Normal 4.0-15.0 [facility] ([place]) Comment on above: Performed By: #### C BC, ADIFF, ANEU, PBNP #### [place] [address] #### LIPID, CMP, GFR #### [address] [address] Glucose [Mass/Vol] 124 mg/dL High 70-110 [facility] ([place]) Comment on above: Performed By: #### C BC, ADIFF, ANEU, PBNP #### [place] [address] #### LIPID, CMP, GFR #### [address] [address] Potassium [Moles/Vol] 4.2 mmol/L Normal 3.5-5.0 [facility] ([place]) Comment on above: Result Comment: Spec imen slightly hemolyzed. Performed By: #### C BC, ADIFF, ANEU, PBNP #### [place] [address] #### LIPID, CMP, GFR #### [address] [address] Sodium [Moles/Vol] 138 mmol/L Normal 136-145 [facility] ([place]) Comment on above: Performed By: #### C BC, ADIFF, ANEU, PBNP #### [address] [address] #### LIPID, CMP, GFR #### [address] [address] Urea nitrogen [Mass/Vol] 13.0 mg/dL Normal 8.0-22.0 [facility] ([place]) Comment on above: Performed By: #### C BC, ADIFF, ANEU, PBNP #### [address] [address] #### LIPID, CMP, GFR #### [place] [address] CBCon 07-06-2021 Erythrocyte distribution width (RBC) [Ratio] 15.2 % Normal 11.5-15.5 [facility] ([place]) Comment on above: Performed By: #### C BC, ADIFF, ANEU, BMP, GFR #### [place] [address] Hematocrit (Bld) [Volume fraction] 34.5 % Low 40.0-52.0 [facility] ([place]) Comment on above: Performed By: #### C BC, ADIFF, ANEU, BMP, GFR #### [place] [address] Hgb 12.2 G/dL Low 13.0-17.5 [facility] ([place]) Comment on above: Performed By: #### C BC, ADIFF, ANEU, BMP, GFR #### [place] [address] MCH (RBC) [Entitic mass] 29.9 pg Normal 27.0-33.0 [facility] ([place]) Comment on above: Performed By: #### C BC, ADIFF, ANEU, BMP, GFR #### [place] [address] MCHC 35.5 G/dL Normal 32.0-36.0 [facility] ([place]) Comment on above: Performed By: #### C BC, ADIFF, ANEU, BMP, GFR #### [place] [address] MCV (RBC) [Entitic vol] 84.4 fL Normal 81.0-100.0 [facility] ([place]) Comment on above: Performed By: #### C BC, ADIFF, ANEU, BMP, GFR #### [address] [address] Platelet 216 10 3/mcL Normal 150-450 [facility] ([place]) Comment on above: Performed By: #### C BC, ADIFF, ANEU, BMP, GFR #### [address] [address] Platelet mean volume (Bld) [Entitic vol] 7.5 fL Normal 6.4-10.5 [facility] ([place]) Comment on above: Performed By: #### C BC, ADIFF, ANEU, BMP, GFR #### [place] [address] RBC 4.08 10 6/mcL Low 4.50-6.00 [facility] ([place]) Comment on above: Performed By: #### C BC, ADIFF, ANEU, BMP, GFR #### [place] [address] WBC 6.90 10 3/mcL Normal 4.50-10.80 [facility] ([place]) Comment on above: Performed By: #### C BC, ADIFF, ANEU, BMP, GFR #### [address] [address] .Auto Diffon 03-11-2021 Basophil, Absolute 0.10 10 3/mcL Normal 0.00-0.19 [facility] ([place]) Comment on above: Performed By: #### C BC, ADIFF, ANEU, PBNP #### [place] [address] #### LIPID, CMP, GFR #### [address] [address] Basophils/100 WBC (Bld) 1.1 % Normal 0.0-2.5 [facility] ([place]) Comment on above: Performed By: #### C BC, ADIFF, ANEU, PBNP #### [address] [address] #### LIPID, CMP, GFR #### [place] [address] Eosinophil, Absolute 0.50 10 3/mcL High 0.00-0.40 [facility] ([place]) Comment on above: Performed By: #### C BC, ADIFF, ANEU, PBNP #### [place] [address] #### LIPID, CMP, GFR #### [address] [address] Eosinophils/100 WBC (Bld) 6.4 % Normal 0.0-7.0 [facility] ([place]) Comment on above: Performed By: #### C BC, ADIFF, ANEU, PBNP #### [place] [address] #### LIPID, CMP, GFR #### [address] [address] Lymphocyte, Absolute 1.40 10 3/mcL Normal 0.77-3.85 [facility] ([place]) Comment on above: Performed By: #### C BC, ADIFF, ANEU, PBNP #### [place] [address] #### LIPID, CMP, GFR #### [address] [address] Lymphocytes/100 WBC (Bld) 18.2 % Normal 10.0-50.0 [facility] ([place]) Comment on above: Performed By: #### C BC, ADIFF, ANEU, PBNP #### [place] [address] #### LIPID, CMP, GFR #### [address] [address] Monocyte, Absolute 0.50 10 3/mcL Normal 0.15-1.00 [facility] ([place]) Comment on above: Performed By: #### C BC, ADIFF, ANEU, PBNP #### [place] [address] #### LIPID, CMP, GFR #### [address] [address] Monocytes/100 WBC (Bld) 6.3 % Normal 1.7-13.0 [facility] ([place]) Comment on above: Performed By: #### C BC, ADIFF, ANEU, PBNP #### [address] [address] #### LIPID, CMP, GFR #### [address] [address] Neutrophils/100 WBC (Bld) 68.0 % Normal 37.0-80.0 [facility] ([place]) Comment on above: Performed By: #### C BC, ADIFF, ANEU, PBNP #### [address] [address] #### LIPID, CMP, GFR #### [address] [address] .GFRon 03-11-2021 GFR 89 ml/min/1.73sqm Normal [facility] ([place]) Comment on above: Result Comment: GFR Population [...] #### C BC, ADIFF, ANEU, PBNP #### [address] [address] #### LIPID, CMP, GFR #### [address] [address] GFR Non- 73 ml/min/1.73sqm Normal [facility] ([place]) Comment on above: Result Comment: GFR Population [...] #### C BC, ADIFF, ANEU, PBNP #### [place] [address] #### LIPID, CMP, GFR #### [place] [id number] .NEUABSon 03-11-2021 Neutrophil, Absolute 5.40 10 3/mcL Normal 2.85-6.16 [facility] ([place]) Comment on above: Performed By: #### C BC, ADIFF, ANEU, PBNP #### [place] [address] #### LIPID, CMP, GFR #### [place] [address] CBCon 03-11-2021 Erythrocyte distribution width (RBC) [Ratio] 15.5 % High 11.5-14.5 [facility] ([place]) Comment on above: Order Comment: copy Dr Turner Performed By: #### C BC, ADIFF, ANEU, PBNP #### [place] [address] #### LIPID, CMP, GFR #### [place] [address] Hematocrit (Bld) [Volume fraction] 36.1 % Low 42.0-52.0 [facility] ([place]) Comment on above: Order Comment: copy Dr Turner Performed By: #### C BC, ADIFF, ANEU, PBNP #### [place] [address] #### LIPID, CMP, GFR #### [place] [address] Hgb 12.8 G/dL Low 14.0-18.0 [facility] ([place]) Comment on above: Order Comment: copy Dr Turner Performed By: #### C BC, ADIFF, ANEU, PBNP #### [address] [address] #### LIPID, CMP, GFR #### [address] [address] MCH (RBC) [Entitic mass] 30.3 pg Normal 27.0-31.2 [facility] ([place]) Comment on above: Order Comment: copy Dr Turner Performed By: #### C BC, ADIFF, ANEU, PBNP #### [place] [address] #### LIPID, CMP, GFR #### [address] [address] MCHC 35.4 G/dL Normal 31.8-35.4 [facility] ([place]) Comment on above: Order Comment: copy Dr Turner Performed By: #### C BC, ADIFF, ANEU, PBNP #### [place] [address] #### LIPID, CMP, GFR #### [address] [address] MCV (RBC) [Entitic vol] 85.7 fL Normal 80.0-94.0 [facility] ([place]) Comment on above: Order Comment: copy Dr Turner Performed By: #### C BC, ADIFF, ANEU, PBNP #### [place] [address] #### LIPID, CMP, GFR #### [address] [address] Platelet 271 10 3/mcL Normal 130-400 [facility] ([place]) Comment on above: Order Comment: copy Dr Turner Performed By: #### C BC, ADIFF, ANEU, PBNP #### [place] [address] #### LIPID, CMP, GFR #### [place] [id number] Platelet mean volume (Bld) [Entitic vol] 7.7 fL Normal 7.4-10.4 [facility] ([place]) Comment on above: Order Comment: copy Dr Turner Performed By: #### C BC, ADIFF, ANEU, PBNP #### [address] [address] #### LIPID, CMP, GFR #### [address] [address] RBC 4.21 10 6/mcL Normal 4.04-6.13 [facility] ([place]) Comment on above: Order Comment: copy Dr Turner Performed By: #### C BC, ADIFF, ANEU, PBNP #### [address] [address] #### LIPID, CMP, GFR #### [place] [address] WBC 7.90 10 3/mcL Normal 4.60-10.80 [facility] ([place]) Comment on above: Order Comment: copy Dr Turner Performed By: #### C BC, ADIFF, ANEU, PBNP #### [place] [address] #### LIPID, CMP, GFR #### [address] [address] CMPon 03-11-2021 Albumin Level 4.2 G/dL Normal 3.5-5.0 [facility] ([place]) Comment on above: Order Comment: copy Dr Turner Performed By: #### C BC, ADIFF, ANEU, PBNP #### [address] [address] #### LIPID, CMP, GFR #### [place] [address] Albumin/Globulin [Mass ratio] 1.6 {ratio} Normal 1.1-2.5 [facility] ([place]) Comment on above: Order Comment: copy Dr Turner Performed By: #### C BC, ADIFF, ANEU, PBNP #### [address] [place] [address] #### LIPID, CMP, GFR #### [address] [address] ALP [Catalytic activity/Vol] 123 U/L Normal 40-135 [facility] ([place]) Comment on above: Order Comment: copy Dr Turner Performed By: #### C BC, ADIFF, ANEU, PBNP #### [address] [address] #### LIPID, CMP, GFR #### [address] [address] ALT [Catalytic activity/Vol] 38 U/L Normal 16-63 [facility] ([place]) Comment on above: Order Comment: copy Dr Turner Performed By: #### C BC, ADIFF, ANEU, PBNP #### [place] [address] #### LIPID, CMP, GFR #### [address] [address] AST [Catalytic activity/Vol] 21 U/L Normal 10-40 [facility] ([place]) Comment on above: Order Comment: copy Dr Turner Performed By: #### C BC, ADIFF, ANEU, PBNP #### [place] [address] #### LIPID, CMP, GFR #### [address] [address] Bili Total 0.6 mg/dL Normal 0.2-1.0 [facility] ([place]) Comment on above: Order Comment: copy Dr Turner Result Comment: Use of this assay is not recommended for patients undergoing treatment with eltrombopag due to the potential for falsely elevated results. Performed By: #### C BC, ADIFF, ANEU, PBNP #### [place] [address] #### LIPID, CMP, GFR #### [address] [address] BUN/Creatinine Ratio 17 ratio Normal 7-27 [facility] ([place]) Comment on above: Order Comment: copy Dr Turner Performed By: #### C BC, ADIFF, ANEU, PBNP #### [address] [address] #### LIPID, CMP, GFR #### [address] [address] Calcium [Mass/Vol] 9.3 mg/dL Normal 8.4-10.2 [facility] ([place]) Comment on above: Order Comment: copy Dr Turner Performed By: #### C BC, ADIFF, ANEU, PBNP #### [address] [address] #### LIPID, CMP, GFR #### [address] [address] Chloride [Moles/Vol] 101 mmol/L Normal 98-107 [facility] ([place]) Comment on above: Order Comment: copy Dr Turner Performed By: #### C BC, ADIFF, ANEU, PBNP #### [place] [address] #### LIPID, CMP, GFR #### [address] [address] CO2 [Moles/Vol] 29 mmol/L Normal 22-29 [facility] ([place]) Comment on above: Order Comment: copy Dr Turner Performed By: #### C BC, ADIFF, ANEU, PBNP #### [place] [address] #### LIPID, CMP, GFR #### [address] [address] Creatinine [Mass/Vol] 1.04 mg/dL Normal 0.70-1.30 [facility] ([place]) Comment on above: Order Comment: copy Dr Turner Performed By: #### C BC, ADIFF, ANEU, PBNP #### [place] [address] #### LIPID, CMP, GFR #### [address] [address] Electrolyte Balance 9.0 mEq/L Normal [facility] ([place]) Comment on above: Order Comment: copy Dr Turner Performed By: #### C BC, ADIFF, ANEU, PBNP #### [address] [address] #### LIPID, CMP, GFR #### [address] [address] Globulin 2.7 G/dL Normal [facility] ([place]) Comment on above: Order Comment: copy Dr Turner Performed By: #### C BC, ADIFF, ANEU, PBNP #### [address] [address] #### LIPID, CMP, GFR #### [address] [address] Glucose [Mass/Vol] 155 mg/dL High 70-105 [facility] ([place]) Comment on above: Order Comment: copy Dr Turner Performed By: #### C BC, ADIFF, ANEU, PBNP #### [address] [address] #### LIPID, CMP, GFR #### [address] [address] Potassium [Moles/Vol] 4.5 mmol/L Normal 3.5-5.1 [facility] ([place]) Comment on above: Order Comment: copy Dr Turner Performed By: #### C BC, ADIFF, ANEU, PBNP #### [address] [address] #### LIPID, CMP, GFR #### [address] [address] Sodium [Moles/Vol] 139 mmol/L Normal 136-145 [facility] ([place]) Comment on above: Order Comment: copy Dr Turner Performed By: #### C BC, ADIFF, ANEU, PBNP #### [address] [address] #### LIPID, CMP, GFR #### [address] [address] Total Protein 6.9 G/dL Normal 6.4-8.2 [facility] ([place]) Comment on above: Order Comment: copy Dr Turner Performed By: #### C BC, ADIFF, ANEU, PBNP #### [address] [address] #### LIPID, CMP, GFR #### [address] [address] Urea nitrogen [Mass/Vol] 18 mg/dL Normal 7-18 [facility] ([place]) Comment on above: Order Comment: copy Dr Turner Performed By: #### C BC, ADIFF, ANEU, PBNP #### [address] [address] #### LIPID, CMP, GFR #### [address] [address] LIPIDon 03-11-2021 Cholesterol [Mass/Vol] 103 mg/dL Normal 0-200 [facility] ([place]) Comment on above: Order Comment: copy Dr Turner Result Comment: Chol esterol Reference Interval: Less than 200 Desirable 200-239 Borderline high risk 240 and above High risk Performed By: #### C BC, ADIFF, ANEU, PBNP #### [address] [address] [address] #### LIPID, CMP, GFR #### [address] [address] Cholesterol in HDL [Mass/Vol] 41 mg/dL Normal 40-60 [facility] ([place]) Comment on above: Order Comment: copy Dr Turner Performed By: #### C BC, ADIFF, ANEU, PBNP #### [address] [address] #### LIPID, CMP, GFR #### [address] [address] Cholesterol in LDL [Mass/Vol] 45 mg/dL Normal 0-130 [facility] ([place]) Comment on above: Order Comment: copy Dr Turner Performed By: #### C BC, ADIFF, ANEU, PBNP #### [address] [address] #### LIPID, CMP, GFR #### [address] [address] Triglyceride [Mass/Vol] 83 mg/dL Normal 0-150 [facility] ([place]) Comment on above: Order Comment: copy Dr Turner Result Comment: Trig lyceride Reference Interval: Less than 150 Normal 150-199 Borderline high risk 200-499 High risk 500 or higher Very high risk Performed By: #### C BC, ADIFF, ANEU, PBNP #### [address] [address] #### LIPID, CMP, GFR #### [address] [address] PBNPon 03-11-2021 Natriuretic peptide B (Bld) [Mass/Vol] 123 pg/mL Normal 0-125 [facility] ([place]) Comment on above: Order Comment: copy Dr Turner Result Comment: NT-p roBNP results of less than 300 pg/mL effectively rules out acute congestive heart failure with 99% negative predictive value. Performed By: #### C BC, ADIFF, ANEU, PBNP #### [address] [address] #### LIPID, CMP, GFR #### [place] [id number] [place] MYOCARDIAL SPECT STRESS/R ESTon 12-29-2020 [place] [...] as 47% in prior study. Interpreted By: hGada May MD Preliminary Report By: Ghada May MD Electronically Signed By: Ghada May MD Dictated Date: 12/29/2020 5:24:28 PM Prelim Date: 12/29/2020 5:24:28 PM Sign Date: 12/29/2020 5:28:40 PM Ordering Provider:[facility]ly [facility]) Vital Signs Date Time Vital Sign Value Performing Clinician Rachel bailon 08-24-2025 13:41-0400 Body height 185.[address] Pietro Turner MD Work Phone: [facility] 08-24-2025 13:41-0400 Body mass index (BMI) [Ratio] 33.6 kg/m2 Dr. Pietro Turner MD Work Phone: [facility] 08-24-2025 13:41-0400 Body temperature 98.2 [degF] Dr. Pietro Turner MD Work Phone: [facility] 08-24-2025 13:41-0400 Body weight 115.[address] Pietro Turner MD Work Phone: [facility] 08-24-2025 13:41-0400 Diastolic blood pressure 94 mm[Hg] Dr. Pietro Turner MD Work Phone: [facility] 08-24-2025 13:41-0400 Heart rate 88 /min Dr. Pietro Turner MD Work Phone: [facility] 08-24-2025 13:41-0400 SaO2% (BldA) [Mass fraction] 92 % Dr. Pietro Turner MD Work Phone: [facility] 08-24-2025 13:41-0400 Systolic blood pressure 162 mm[Hg] Dr. Pietro Turner MD Work Phone: [facility] 08-10-2025 07:51-0400 Body mass index (BMI) [Ratio] 34.2 kg/m2 Dr. Pietro Turner MD Work Phone: [facility] 08-10-2025 07:51-0400 Body weight 117.[address] Pietro Turner MD Work Phone: [facility] 08-10-2025 07:51-0400 Diastolic blood pressure 89 mm[Hg] Dr. Pietro Turner MD Work Phone: [facility] 08-10-2025 07:51-0400 Heart rate 85 /min Dr. Pietro Turner MD Work Phone: [facility] 08-10-2025 07:51-0400 Respiratory rate 18 /min Dr. Pietro Turner MD Work Phone: [facility] 08-10-2025 07:51-0400 SaO2% (BldA) [Mass fraction] 97 % Dr. Pietro Turner MD Work Phone: [facility] 08-10-2025 07:51-0400 Systolic blood pressure 148 mm[Hg] Dr. Pietro Turner MD Work Phone: [facility] 07-28-2025 10:34-0400 Body height 185.[address] Pietro Turner MD Work Phone: [facility] 07-28-2025 10:34-0400 Body mass index (BMI) [Ratio] 34.2 kg/m2 Dr. Pietro Turner MD Work Phone: [facility] 07-28-2025 10:34-0400 Body temperature 98.4 [degF] Dr. Pietro Turner MD Work Phone: [facility] 07-28-2025 10:34-0400 Body weight 117.[address] Pietro Turner MD Work Phone: [facility] 07-28-2025 10:34-0400 Diastolic blood pressure 90 mm[Hg] Dr. Pietro Turner MD Work Phone: [facility] 07-28-2025 10:34-0400 Heart rate 86 /min Dr. Pietro Turner MD Work Phone: [facility] 07-28-2025 10:34-0400 SaO2% (BldA) [Mass fraction] 97 % Dr. Pietro Turner MD Work Phone: [facility] 07-28-2025 10:34-0400 Systolic blood pressure 173 mm[Hg] Dr. Pietro Turner MD Work Phone: [facility] 06-17-2025 15:11-0400 Body height 185.[address] Pietro Turner MD Work Phone: [facility] 06-17-2025 15:11-0400 Body mass index (BMI) [Ratio] 35.2 kg/m2 Dr. Pietro Turner MD Work Phone: [facility] 06-17-2025 15:11-0400 Body temperature 98.6 [degF] Dr. Pietro Turner MD Work Phone: [facility] 06-17-2025 15:11-0400 Body weight 120.[address] Pietro Turner MD Work Phone: [facility] 06-17-2025 15:11-0400 Diastolic blood pressure 79 mm[Hg] Dr. Pietro Turner MD Work Phone: [facility] 06-17-2025 15:11-0400 Heart rate 98 /min Dr. Pietro Turner MD Work Phone: [facility] 06-17-2025 15:11-0400 Respiratory rate 16 /min Dr. Pietro Turner MD Work Phone: [facility] 06-17-2025 15:11-0400 SaO2% (BldA) [Mass fraction] 95 % Dr. Pietro Turner MD Work Phone: [facility] 06-17-2025 15:11-0400 Systolic blood pressure 153 mm[Hg] Dr. Pietro Turner MD Work Phone: [facility] 05-18-2025 11:44-0400 Body height 185.[address] Pietro Turner MD Work Phone: [facility] 05-18-2025 11:44-0400 Body mass index (BMI) [Ratio] 33.5 kg/m2 Dr. Pietro Turner MD Work Phone: [facility] 05-18-2025 11:44-0400 Body temperature 98.6 [degF] Dr. Pietro Turner MD Work Phone: [facility] 05-18-2025 11:44-0400 Body weight 115.[address] Pietro Turnre MD Work Phone: [facility] 05-18-2025 11:44-0400 Diastolic blood pressure 78 mm[Hg] Dr. Pietro Turner MD Work Phone: [facility] 05-18-2025 11:44-0400 Heart rate 98 /min Dr. Pietro Turner MD Work Phone: [facility] 05-18-2025 11:44-0400 Respiratory rate 16 /min Dr. Pietro Turner MD Work Phone: [facility] 05-18-2025 11:44-0400 SaO2% (BldA) [Mass fraction] 98 % Dr. Pietro Turner MD Work Phone: [facility] 05-18-2025 11:44-0400 Systolic blood pressure 132 mm[Hg] Dr. Pietro Turner MD Work Phone: [facility] 04-27-2025 10:34-0400 Body height 185.[address] Pietro Turner MD Work Phone: [facility] 04-27-2025 10:34-0400 Body mass index (BMI) [Ratio] 33.3 kg/m2 Dr. Pietro Turner MD Work Phone: [facility] 04-27-2025 10:34-0400 Body temperature 98.4 [degF] Dr. Pietro Turner MD Work Phone: [facility] 04-27-2025 10:34-0400 Body weight 114.[address] Pietro Turner MD Work Phone: [facility] 04-27-2025 10:34-0400 Diastolic blood pressure 88 mm[Hg] Dr. Pietro Turner MD Work Phone: [facility] 04-27-2025 10:34-0400 Heart rate 71 /min Dr. Pietro Turner MD Work Phone: [facility] 04-27-2025 10:34-0400 Respiratory rate 16 /min Dr. Pietro Turner MD Work Phone: [facility] 04-27-2025 10:34-0400 SaO2% (BldA) [Mass fraction] 96 % Dr. Pietro Turner MD Work Phone: [facility] 04-27-2025 10:34-0400 Systolic blood pressure 153 mm[Hg] Dr. Pietro Turner MD Work Phone: [facility] 01-01-2025 16:10-0500 Body height 185.[address] Pietro Turner MD Work Phone: [facility] 01-01-2025 16:10-0500 Body mass index (BMI) [Ratio] 33.7 kg/m2 Dr. Pietro Turner MD Work Phone: [facility] 01-01-2025 16:10-0500 Body temperature 98.4 [degF] Dr. Pietro Turner MD Work Phone: [facility] 01-01-2025 16:10-0500 Body weight 115.[address] Pietro Turner MD Work Phone: [facility] 01-01-2025 16:10-0500 Diastolic blood pressure 76 mm[Hg] Dr. Pietro Turner MD Work Phone: [facility] 01-01-2025 16:10-0500 Heart rate 76 /min Dr. Pietro Turner MD Work Phone: [facility] 01-01-2025 16:10-0500 Respiratory rate 16 /min Dr. Pietro Turner MD Work Phone: [facility] 01-01-2025 16:10-0500 SaO2% (BldA) [Mass fraction] 99 % Dr. Pietro Turner MD Work Phone: [facility] 01-01-2025 16:10-0500 Systolic blood pressure 134 mm[Hg] Dr. Pietro Turner MD Work Phone: [facility] 11-25-2024 14:55-0500 Body mass index (BMI) [Ratio] 34.4 kg/m2 Dr. Pietro Turner MD Work Phone: [facility] 11-25-2024 14:55-0500 Body weight 118.[address] Pietro Turner MD Work Phone: [facility] 11-25-2024 14:55-0500 Diastolic blood pressure 79 mm[Hg] Dr. Pietro Turner MD Work Phone: [facility] 11-25-2024 14:55-0500 Heart rate 76 /min Dr. Pietro Turner MD Work Phone: [facility] 11-25-2024 14:55-0500 Respiratory rate 16 /min Dr. Pietro Turner MD Work Phone: [facility] 11-25-2024 14:55-0500 Systolic blood pressure 121 mm[Hg] Dr. Pietro Turner MD Work Phone: [facility] 11-14-2024 23:00-0500 Body temperature 98 [degF] Dr. Pietro Turner MD Work Phone: [facility] 11-14-2024 23:00-0500 Diastolic blood pressure 71 mm[Hg] Dr. Pietro Turner MD Work Phone: [facility] 11-14-2024 23:00-0500 Heart rate 72 /min Dr. Pietro Turner MD Work Phone: [facility] 11-14-2024 23:00-0500 Respiratory rate 16 /min Dr. Pietro Turner MD Work Phone: [facility] 11-14-2024 23:00-0500 SaO2% (BldA) [Mass fraction] 97 % Dr. Pietro Turner MD Work Phone: [facility] 11-14-2024 23:00-0500 Systolic blood pressure 117 mm[Hg] Dr. Pietro Turner MD Work Phone: [facility] 11-13-2024 15:05-0500 Body temperature 97.4 [degF] Dr. Pietro Turner MD Work Phone: [facility] 11-13-2024 15:05-0500 Diastolic blood pressure 70 mm[Hg] Dr. Pietro Turner MD Work Phone: [facility] 11-13-2024 15:05-0500 Heart rate 73 /min Dr. Pietro Turner MD Work Phone: [facility] 11-13-2024 15:05-0500 Respiratory rate 16 /min Dr. Pietro Turner MD Work Phone: [facility] 11-13-2024 15:05-0500 SaO2% (BldA) [Mass fraction] 98 % Dr. Pietro Turner MD Work Phone: [facility] 11-13-2024 15:05-0500 Systolic blood pressure 138 mm[Hg] Dr. Pietro Turner MD Work Phone: [facility] 11-07-2024 08:23-0500 Body temperature 98.4 [degF] Dr. Pietro Turner MD Work Phone: [facility] 11-07-2024 08:23-0500 Diastolic blood pressure 72 mm[Hg] Dr. Pietro Turner MD Work Phone: [facility] 11-07-2024 08:23-0500 Heart rate 60 /min Dr. Pietro Turner MD Work Phone: [facility] 11-07-2024 08:23-0500 Respiratory rate 16 /min Dr. Pietro Turner MD Work Phone: [facility] 11-07-2024 08:23-0500 SaO2% (BldA) [Mass fraction] 98 % Dr. Pietro Turner MD Work Phone: [facility] 11-07-2024 08:23-0500 Systolic blood pressure 120 mm[Hg] Dr. Pietro Turner MD Work Phone: [facility] 11-07-2024 06:50-0500 Body mass index (BMI) [Ratio] 34.3 kg/m2 Dr. Pietro Turner MD Work Phone: [facility] 11-07-2024 06:50-0500 Body weight [address] Pietro Turner MD Work Phone: [facility] 10-16-2024 15:43-0500 Body temperature 98 [degF] Dr. Pietro Turner MD Work Phone: [facility] 10-16-2024 15:43-0500 Diastolic blood pressure 82 mm[Hg] Dr. Pietro Turner MD Work Phone: [facility] 10-16-2024 15:43-0500 Heart rate 75 /min Dr. Pietro Turner MD Work Phone: [facility] 10-16-2024 15:43-0500 Respiratory rate 16 /min Dr. Pietro Turner MD Work Phone: [facility] 10-16-2024 15:43-0500 SaO2% (BldA) [Mass fraction] 98 % Dr. Pietro Turner MD Work Phone: [facility] 10-16-2024 15:43-0500 Systolic blood pressure 132 mm[Hg] Dr. Pietro Turner MD Work Phone: [facility] 10-14-2024 13:35-0500 Body mass index (BMI) [Ratio] 35.1 kg/m2 Dr. Pietro Turner MD Work Phone: [facility] 10-14-2024 13:35-0500 Body temperature 98.2 [degF] Dr. Pietro Turner MD Work Phone: [facility] 10-14-2024 13:35-0500 Body weight 120.[address] Pietro Turner MD Work Phone: [facility] 10-14-2024 13:35-0500 Diastolic blood pressure 74 mm[Hg] Dr. Pietro Turner MD Work Phone: [facility] 10-14-2024 13:35-0500 Heart rate 80 /min Dr. Pietro Turner MD Work Phone: [facility] 10-14-2024 13:35-0500 Respiratory rate 18 /min Dr. Pietro Turner MD Work Phone: [facility] 10-14-2024 13:35-0500 SaO2% (BldA) [Mass fraction] 99 % Dr. Pietro Turner MD Work Phone: [facility] 10-14-2024 13:35-0500 Systolic blood pressure 128 mm[Hg] Dr. Pietro Turner MD Work Phone: [facility] 02-19-2024 06:00-0400 Body temperature 98 [degF] Dr. Pietro Turner Work Phone: [facility] 02-19-2024 06:00-0400 Diastolic blood pressure 72 mm[Hg] Dr. Pietro Turner Work Phone: [facility] 02-19-2024 06:00-0400 Heart rate 64 /min Dr. Pietro Turner Work Phone: [facility] 02-19-2024 06:00-0400 Respiratory rate 17 /min Dr. Pietro Turner Work Phone: [facility] 02-19-2024 06:00-0400 SaO2% (BldA) [Mass fraction] 99 % Dr. Pietro Turner Work Phone: [facility] 02-19-2024 06:00-0400 Systolic blood pressure 138 mm[Hg] Dr. Pietro Turner Work Phone: [facility] 02-19-2024 02:25-0400 Body height 185.[address] Pietro Turner Work Phone: [facility] 02-19-2024 02:25-0400 Body mass index (BMI) [Ratio] 33.9 kg/m2 Dr. Pietro Turner Work Phone: [facility] 02-19-2024 02:25-0400 Body weight 116.[address] Pietro Turner Work Phone: [facility] 01-07-2024 14:00-0400 Body height 185.[address] Pietro Turner Work Phone: [facility] 01-07-2024 14:00-0400 Body weight 119.[address] Pietro Turner Work Phone: [facility] 01-03-2024 13:37-0500 Body height 182.[address] Pietro Turner Work Phone: [facility] 01-03-2024 13:37-0500 Body mass index (BMI) [Ratio] 35.7 kg/m2 Dr. Pietro Turner Work Phone: [facility] 01-03-2024 13:37-0500 Body temperature 97.5 [degF] Dr. Pietro Turner Work Phone: [facility] 01-03-2024 13:37-0500 Body weight 119.[address] Pietro Turner Work Phone: [facility] 01-03-2024 13:37-0500 Diastolic blood pressure 82 mm[Hg] Dr. Pietro Turner Work Phone: [facility] 01-03-2024 13:37-0500 Heart rate 69 /min Dr. Pietro Turner Work Phone: [facility] 01-03-2024 13:37-0500 Respiratory rate 16 /min Dr. Pietro Turner Work Phone: [facility] 01-03-2024 13:37-0500 SaO2% (BldA) [Mass fraction] 97 % Dr. Pietro Turner Work Phone: [facility] 01-03-2024 13:37-0500 Systolic blood pressure 153 mm[Hg] Dr. Pietro Turner Work Phone: [facility] 11-14-2023 14:00-0500 Body weight 119.[address] Pietro Turner Work Phone: [facility] 11-07-2023 10:37-0500 Body mass index (BMI) [Ratio] 36.4 kg/m2 Dr. Pietro Turner Work Phone: [facility] 11-07-2023 10:37-0500 Body temperature 97.4 [degF] Dr. Pietro Turner Work Phone: [facility] 11-07-2023 10:37-0500 Body weight 122.[address] Pietro Turner Work Phone: [facility] 11-07-2023 10:37-0500 Diastolic blood pressure 79 mm[Hg] Dr. Pietro Turner Work Phone: [facility] 11-07-2023 10:37-0500 Heart rate 82 /min Dr. Pietro Turner Work Phone: [facility] 11-07-2023 10:37-0500 Respiratory rate 16 /min Dr. Pietro Turner Work Phone: [facility] 11-07-2023 10:37-0500 SaO2% (BldA) [Mass fraction] 94 % Dr. Pietro Turner Work Phone: [facility] 11-07-2023 10:37-0500 Systolic blood pressure 127 mm[Hg] Dr. Pietro Turner Work Phone: [facility] 09-25-2023 14:55-0500 Body height 182.[address] Pietro Turner Work Phone: [facility] 09-25-2023 14:55-0500 Body mass index (BMI) [Ratio] 35.5 kg/m2 Dr. Pietro Turner Work Phone: [facility] 09-25-2023 14:55-0500 Body weight 118.[address] Pietro Turner Work Phone: [facility] 09-25-2023 14:55-0500 Diastolic blood pressure 86 mm[Hg] Dr. Pietro Turner Work Phone: [facility] 09-25-2023 14:55-0500 Heart rate 63 /min Dr. Pietro Turner Work Phone: [facility] 09-25-2023 14:55-0500 Respiratory rate 14 /min Dr. Pietro Turner Work Phone: [facility] 09-25-2023 14:55-0500 Systolic blood pressure 141 mm[Hg] Dr. Pietro Turner Work Phone: [facility] 08-31-2023 16:37-0400 Body mass index (BMI) [Ratio] 36.6 kg/m2 Dr. Pietro Turner Work Phone: [facility] 08-31-2023 16:37-0400 Body temperature 98.3 [degF] Dr. Pietro Turner Work Phone: [facility] 08-31-2023 16:37-0400 Body weight 122.[address] Pietro Turner Work Phone: [facility] 08-31-2023 16:37-0400 Diastolic blood pressure 80 mm[Hg] Dr. Pietro Turner Work Phone: [facility] 08-31-2023 16:37-0400 Heart rate 82 /min Dr. Pietro Turner Work Phone: [facility] 08-31-2023 16:37-0400 Respiratory rate 17 /min Dr. Pietro Turner Work Phone: [facility] 08-31-2023 16:37-0400 SaO2% (BldA) [Mass fraction] 97 % Dr. Pietro Turner Work Phone: [facility] 08-31-2023 16:37-0400 Systolic blood pressure 139 mm[Hg] Dr. Pietro Turner Work Phone: [facility] 08-23-2023 15:14-0400 Body mass index (BMI) [Ratio] 35.5 kg/m2 Dr. Pietro Turner Work Phone: [facility] 08-23-2023 15:14-0400 Body temperature 97.7 [degF] Dr. Pietro Turner Work Phone: [facility] 08-23-2023 15:14-0400 Body weight 122.[address] Pietro Turner Work Phone: [facility] 08-23-2023 15:14-0400 Diastolic blood pressure 76 mm[Hg] Dr. Pietro Turner Work Phone: [facility] 08-23-2023 15:14-0400 Heart rate 73 /min Dr. Pietro Turner Work Phone: [facility] 08-23-2023 15:14-0400 Respiratory rate 16 /min Dr. Pietro Turner Work Phone: [facility] 08-23-2023 15:14-0400 SaO2% (BldA) [Mass fraction] 97 % Dr. Pietro Turner Work Phone: [facility] 08-23-2023 15:14-0400 Systolic blood pressure 135 mm[Hg] Dr. Pietro Turner Work Phone: [facility] 03-07-2023 14:48-0400 Body height 185.[address] Pietro Turner Work Phone: [facility] 03-07-2023 14:48-0400 Body mass index (BMI) [Ratio] 35.6 kg/m2 Dr. Pietro Turner Work Phone: [facility] 03-07-2023 14:48-0400 Body temperature 98.6 [degF] Dr. Pietro Turner Work Phone: [facility] 03-07-2023 14:48-0400 Body weight 122.[address] Pietro Turner Work Phone: [facility] 03-07-2023 14:48-0400 Diastolic blood pressure 86 mm[Hg] Dr. Pietro Turner Work Phone: [facility] 03-07-2023 14:48-0400 Heart rate 88 /min Dr. Pietro Turner Work Phone: [facility] 03-07-2023 14:48-0400 Respiratory rate 18 /min Dr. Pietro Turner Work Phone: [facility] 03-07-2023 14:48-0400 SaO2% (BldA) [Mass fraction] 94 % Dr. Pietro Turner Work Phone: [facility] 03-07-2023 14:48-0400 Systolic blood pressure 142 mm[Hg] Dr. Pietro Turner Work Phone: [facility] 01-29-2023 15:06-0400 Body mass index (BMI) [Ratio] 35.4 kg/m2 Dr. Pietro Turner Work Phone: [facility] 01-29-2023 15:06-0400 Body weight 122.[address] Pietro Turner Work Phone: [facility] 01-29-2023 15:06-0400 Diastolic blood pressure 78 mm[Hg] Dr. Pietro Turner Work Phone: [facility] 01-29-2023 15:06-0400 Heart rate 83 /min Dr. Pietro Turner Work Phone: [facility] 01-29-2023 15:06-0400 Respiratory rate 18 /min Dr. Pietro Turner Work Phone: [facility] 01-29-2023 15:06-0400 SaO2% (BldA) [Mass fraction] 94 % Dr. Pietro Turner Work Phone: [facility] 01-29-2023 15:06-0400 Systolic blood pressure 146 mm[Hg] Dr. Pietro Turner Work Phone: [facility] 11-09-2022 11:12-0500 Body mass index (BMI) [Ratio] 35.9 kg/m2 Dr. Pietro Turner Work Phone: [facility] 11-09-2022 11:12-0500 Body weight 123.[address] Pietro Turner Work Phone: [facility] 11-09-2022 11:12-0500 Diastolic blood pressure 93 mm[Hg] Dr. Pietro Turner Work Phone: [facility] 11-09-2022 11:12-0500 Heart rate 87 /min Dr. Pietro Turner Work Phone: [facility] 11-09-2022 11:12-0500 Respiratory rate 18 /min Dr. Pietro Turner Work Phone: [facility] 11-09-2022 11:12-0500 Systolic blood pressure 179 mm[Hg] Dr. Pietro Turner Work Phone: [facility] 10-18-2022 14:11-0500 Body temperature 97.6 [degF] Dr. Pietro Turner Work Phone: [facility] Work Phone: 10-18-2022 14:11-0500 Body weight 119.[address] Pietro Turner Work Phone: [facility] Work Phone: 10-18-2022 14:11-0500 Diastolic blood pressure 87 mm[Hg] Dr. Pietro Turner Work Phone: [facility] Work Phone: 10-18-2022 14:11-0500 Heart rate 67 /min Dr. Pietro Turner Work Phone: [facility] Work Phone: 10-18-2022 14:11-0500 Respiratory rate 16 /min Dr. Pietro Turner Work Phone: [facility] Work Phone: 10-18-2022 14:11-0500 SaO2% (BldA) [Mass fraction] 98 % Dr. Pietro Turner Work Phone: [facility] Work Phone: 10-18-2022 14:11-0500 Systolic blood pressure 152 mm[Hg] Dr. Pietro Turner Work Phone: [facility] Work Phone: 07-29-2022 23:13-0400 Body height 185.[address] Pietro Turner Work Phone: [facility] Work Phone: 07-29-2022 23:13-0400 Body mass index (BMI) [Ratio] 34.2 kg/m2 Dr. Pietro Turner Work Phone: [facility] Work Phone: 07-29-2022 23:13-0400 Body temperature 97.4 [degF] Dr. Pietro Turner Work Phone: [facility] Work Phone: 07-29-2022 23:13-0400 Body weight 117.[address] Pietro Turner Work Phone: [facility] Work Phone: 07-29-2022 23:13-0400 Diastolic blood pressure 86 mm[Hg] Dr. Pietro Turner Work Phone: [facility] Work Phone: 07-29-2022 23:13-0400 Heart rate 78 /min Dr. Pietro Turner Work Phone: [facility] Work Phone: 07-29-2022 23:13-0400 Respiratory rate 14 /min Dr. Pietro Turner Work Phone: [facility] Work Phone: 07-29-2022 23:13-0400 SaO2% (BldA) [Mass fraction] 100 % Dr. Pietro Turner Work Phone: [facility] Work Phone: 07-29-2022 23:13-0400 Systolic blood pressure 173 mm[Hg] Dr. Pietro Turner Work Phone: [facility] Work Phone: 07-19-2022 13:41-0400 Body temperature 98 [degF] Dr. Pietro Turner Work Phone: [facility] Work Phone: 07-19-2022 13:41-0400 Body weight 122.[address] Pietro Turner Work Phone: [facility] Work Phone: 07-19-2022 13:41-0400 Diastolic blood pressure 90 mm[Hg] Dr. Pietro Turner Work Phone: [facility] Work Phone: 07-19-2022 13:41-0400 Heart rate 68 /min Dr. Pietro Turner Work Phone: [facility] Work Phone: 07-19-2022 13:41-0400 Respiratory rate 16 /min Dr. Pietro Turner Work Phone: [facility] Work Phone: 07-19-2022 13:41-0400 SaO2% (BldA) [Mass fraction] 97 % Dr. Pietro Turner Work Phone: [facility] Work Phone: 07-19-2022 13:41-0400 Systolic blood pressure 158 mm[Hg] Dr. Pietro Turner Work Phone: [facility] Work Phone: 05-29-2022 14:24-0400 Body temperature 97.8 [degF] Dr. Pietro Turner Work Phone: [facility] Work Phone: 05-29-2022 14:24-0400 Diastolic blood pressure 80 mm[Hg] Dr. Pietro Turner Work Phone: [facility] Work Phone: 05-29-2022 14:24-0400 Heart rate 70 /min Dr. Pietro Turner Work Phone: [facility] Work Phone: 05-29-2022 14:24-0400 Respiratory rate 16 /min Dr. Pietro Turner Work Phone: [facility] Work Phone: 05-29-2022 14:24-0400 Systolic blood pressure 130 mm[Hg] Dr. Pietro uTrner Work Phone: [facility] Work Phone: 05-18-2022 16:03-0400 Body height 185.[address] Pietro Turner Work Phone: [facility] Work Phone: 05-18-2022 16:03-0400 Body mass index (BMI) [Ratio] 34.4 kg/m2 Dr. Pietro Turner Work Phone: [facility] Work Phone: 05-18-2022 16:03-0400 Body temperature 98.2 [degF] Dr. Pietro Turner Work Phone: [facility] Work Phone: 05-18-2022 16:03-0400 Body weight 118.[address] Pietro Turner Work Phone: [facility] Work Phone: 05-18-2022 16:03-0400 Diastolic blood pressure 86 mm[Hg] Dr. Pietro Turner Work Phone: [facility] Work Phone: 05-18-2022 16:03-0400 Heart rate 75 /min Dr. Pietro Turner Work Phone: [facility] Work Phone: 05-18-2022 16:03-0400 Respiratory rate 16 /min Dr. Pietro Turner Work Phone: [facility] Work Phone: 05-18-2022 16:03-0400 SaO2% (BldA) [Mass fraction] 98 % Dr. Pietro Turner Work Phone: [facility] Work Phone: 05-18-2022 16:03-0400 Systolic blood pressure 138 mm[Hg] Dr. Pietro Turner Work Phone: [facility] Work Phone: 05-11-2022 09:41-0400 Body height 185.[address] Pietro Turner Work Phone: [facility] Work Phone: 05-11-2022 09:41-0400 Body mass index (BMI) [Ratio] 34.5 kg/m2 Dr. Pietro Turner Work Phone: [facility] Work Phone: 05-11-2022 09:41-0400 Body temperature 98.2 [degF] Dr. Pietro Turner Work Phone: [facility] Work Phone: 05-11-2022 09:41-0400 Body weight 118.[address] Pietro Turner Work Phone: [facility] Work Phone: 05-11-2022 09:41-0400 Diastolic blood pressure 68 mm[Hg] Dr. Pietro Turner Work Phone: [facility] Work Phone: 05-11-2022 09:41-0400 Heart rate 67 /min Dr. Pietro Turner Work Phone: [facility] Work Phone: 05-11-2022 09:41-0400 Respiratory rate 18 /min Dr. Pietro Turner Work Phone: [facility] Work Phone: 05-11-2022 09:41-0400 SaO2% (BldA) [Mass fraction] 99 % Dr. Pietro Turner Work Phone: [facility] Work Phone: 05-11-2022 09:41-0400 Systolic blood pressure 130 mm[Hg] Dr. Pietro Turner Work Phone: [facility] Work Phone: 05-02-2022 14:07-0400 Diastolic blood pressure 80 mm[Hg] Dr. Pietro Turner Work Phone: [facility] Work Phone: 05-02-2022 14:07-0400 Systolic blood pressure 138 mm[Hg] Dr. Pietro Turner Work Phone: [facility] Work Phone: 05-02-2022 14:07-0400 Body mass index (BMI) [Ratio] 33.6 kg/m2 Dr. Pietro Turner Work Phone: [facility] Work Phone: 05-02-2022 14:07-0400 Body weight 115.[address] Pietro Turner Work Phone: [facility] Work Phone: 05-02-2022 14:07-0400 Heart rate 74 /min Dr. Pietro Turner Work Phone: [facility] Work Phone: 05-02-2022 14:07-0400 Respiratory rate 18 /min Dr. Pietro Turner Work Phone: [facility] Work Phone: 05-02-2022 14:07-0400 SaO2% (BldA) [Mass fraction] 96 % Dr. Pietro Turner Work Phone: [facility] Work Phone: 02-16-2022 10:43-0400 Body mass index (BMI) [Ratio] 34.4 kg/m2 Dr. Pietro Turner Work Phone: [facility] Work Phone: 02-16-2022 10:43-0400 Body temperature 97.8 [degF] Dr. Pietro Turner Work Phone: [facility] Work Phone: 02-16-2022 10:43-0400 Body weight 118.[address] Pietro Turner Work Phone: [facility] Work Phone: 02-16-2022 10:43-0400 Diastolic blood pressure 84 mm[Hg] Dr. Pietro Turner Work Phone: [facility] Work Phone: 02-16-2022 10:43-0400 Heart rate 84 /min Dr. Pietro Turner Work Phone: [facility] Work Phone: 02-16-2022 10:43-0400 Respiratory rate 14 /min Dr. Pietro Turner Work Phone: [facility] Work Phone: 02-16-2022 10:43-0400 SaO2% (BldA) [Mass fraction] 99 % Dr. Pietro Turner Work Phone: [facility] Work Phone: 02-16-2022 10:43-0400 Systolic blood pressure 152 mm[Hg] Dr. Pietro Turner Work Phone: [facility] Work Phone: 02-16-2022 10:43-0400 Body height 185.[address] Pietro Turner Work Phone: [facility] Work Phone: 02-16-2022 10:43-0400 Body mass index (BMI) [Ratio] 34.4 kg/m2 Dr. Pietro Turner Work Phone: [facility] Work Phone: 02-16-2022 10:43-0400 Body temperature 97.8 [degF] Dr. Pietro Turner Work Phone: [facility] Work Phone: 02-16-2022 10:43-0400 Body weight 118.[address] Pietro Turner Work Phone: [facility] Work Phone: 02-16-2022 10:43-0400 Diastolic blood pressure 84 mm[Hg] Dr. Pietro Turner Work Phone: [facility] Work Phone: 02-16-2022 10:43-0400 Heart rate 84 /min Dr. Pietro Turner Work Phone: [facility] Work Phone: 02-16-2022 10:43-0400 Respiratory rate 14 /min Dr. Pietro Turner Work Phone: [facility] Work Phone: 02-16-2022 10:43-0400 SaO2% (BldA) [Mass fraction] 99 % Dr. Pietro Turner Work Phone: [facility] Work Phone: 02-16-2022 10:43-0400 Systolic blood pressure 152 mm[Hg] Dr. Pietro Turner Work Phone: [facility] Work Phone: 12-22-2021 12:08-0500 Body mass index (BMI) [Ratio] 33.7 kg/m2 Dr. iPetro Turner Work Phone: [facility] Work Phone: 12-22-2021 12:08-0500 Body temperature 95.9 [degF] Dr. Pietro Turner Work Phone: [facility] Work Phone: 12-22-2021 12:08-0500 Body weight 116.[address] Pietro Turner Work Phone: [facility] Work Phone: 12-22-2021 12:08-0500 Diastolic blood pressure 80 mm[Hg] Dr. Pietro Turner Work Phone: [facility] Work Phone: 12-22-2021 12:08-0500 Heart rate 74 /min Dr. Pietro Turner Work Phone: [facility] Work Phone: 12-22-2021 12:08-0500 Respiratory rate 16 /min Dr. Pietro Turner Work Phone: [facility] Work Phone: 12-22-2021 12:08-0500 SaO2% (BldA) [Mass fraction] 99 % Dr. Pietro Turner Work Phone: [facility] Work Phone: 12-22-2021 12:08-0500 Systolic blood pressure 120 mm[Hg] Dr. Pietro Turner Work Phone: [facility] Work Phone: 11-28-2021 11:44-0500 Body mass index (BMI) [Ratio] 34 kg/m2 Dr. Pietro Turner Work Phone: [facility] Work Phone: 11-28-2021 11:44-0500 Body temperature 97.6 [degF] Dr. Pietro Turner Work Phone: [facility] Work Phone: 11-28-2021 11:44-0500 Body weight 117.[address] Pietro Turner Work Phone: [facility] Work Phone: 11-28-2021 11:44-0500 Diastolic blood pressure 93 mm[Hg] Dr. Pietro Turner Work Phone: [facility] Work Phone: 11-28-2021 11:44-0500 Heart rate 75 /min Dr. Pietro Turner Work Phone: [facility] Work Phone: 11-28-2021 11:44-0500 Respiratory rate 16 /min Dr. Pietro Turner Work Phone: [facility] Work Phone: 11-28-2021 11:44-0500 SaO2% (BldA) [Mass fraction] 97 % Dr. Pietro Turner Work Phone: [facility] Work Phone: 11-28-2021 11:44-0500 Systolic blood pressure 166 mm[Hg] Dr. Pietro Turner Work Phone: [facility] Work Phone: 11-02-2021 05:57-0500 Body weight 117.[address] Pietro Turner Work Phone: [facility] Work Phone: 11-01-2021 06:08-0500 Body mass index (BMI) [Ratio] 34.2 kg/m2 Dr. Pietro Turner Work Phone: [facility] Work Phone: Encounters Encounter Date Encounter Type Care Provider Facility Start: 08-24-2025 End: 08-24-2025 [facility]ulatory [facility] Facility:[facility] [place] Start: 08-14-2025 End: 08-14-2025 ambulatory [facility] Facility:[facility] Start: 08-10-2025 End: 08-10-2025 Jocelyne MARTINEZ -[facility] Work Phone: Start: 08-10-2025 End: 08-10-[address] Pietro Turner MD Work Phone: -[facility] Start: 07-28-2025 End: 07-28-[address] Pietro Turner MD -[facility] Work Phone: Start: 07-28-2025 End: 07-28-2025 Dr. Pietro Turner MD -[place] [facility] Work Phone: Start: 07-28-2025 End: 07-28-[address] Pietro Turner MD Work Phone: -[place] [facility] Start: 06-24-2025 End: 06-24-[address] Pietro Turner MD Work Phone: -Laboratory Start: 06-24-2025 End: 06-24-[address] Pietro Turner MD -Laboratory Work Phone: Start: 06-24-2025 End: 06-24-2025 Dr. Pietro Turner MD -Laboratory Work Phone: Start: 06-24-2025 End: 06-24-2025 ambulatory Pietro Turner Facility:[facility] Start: 06-17-2025 End: 06-17-[address] Pietro Turner MD -[place] [facility] Work Phone: Start: 06-17-2025 End: 06-17-2025 Dr. Pietro Turner MD -[place] [facility] Work Phone: Start: 06-17-2025 End: 06-17-[address] Pietro Turner MD Work Phone: -[place] [facility] Start: 06-15-2025 End: 06-15-[address] Pietro Turner MD Work Phone: -Laboratory Start: 06-15-2025 End: 06-15-[address] Pietro Turner MD -Laboratory Work Phone: Start: 06-15-2025 End: 06-15-2025 Dr. Pietro Turner MD -Laboratory Work Phone: Start: 06-15-2025 End: 06-15-2025 ambulatory Pietro Turner Facility:[facility] Start: 05-18-2025 End: 05-18-[address] Pietro Turner MD Work Phone: -Laboratory Specimen Start: 05-18-2025 End: 05-18-[address] Pietro Turner MD -Laboratory Specimen Work Phone: Start: 05-18-2025 End: 05-18-2025 Dr. Pietro Turner MD -Laboratory Specim en Work Phone: Start: 05-18-2025 End: 05-18-[address] Pietro Turner MD -[place] [facility] Work Phone: Start: 05-18-2025 End: 05-18-2025 Dr. Pietro Turner MD -[place] [facility] Work Phone: Start: 05-18-2025 End: 05-18-[address] Pietro Turner MD Work Phone: -[place] [facility] Start: 05-18-2025 End: 05-18-2025 ambulatory Pietro Turner Facility:[facility] Start: 05-14-2025 End: 05-14-2025 [id number] Start: 04-27-2025 End: 04-27-[address] Pietro Turner MD -[place] [facility] Work Phone: Start: 04-27-2025 End: 04-27-2025 Dr. Pietro Turner MD -[place] [facility] Work Phone: Start: 04-27-2025 End: 04-27-[address] Pietro Turner MD Work Phone: -[place] [facility] Start: 04-21-2025 ambulatory Pietro Turner Facility :[facility] [place] Start: 02-09-2025 End: 02-09-[address] Pietro Turner MD Work Phone: [facility] Work Phone: Start: 02-09-2025 End: 02-09-[address] Pietro Turner MD -Laboratory [facility] Start: 02-09-2025 End: 02-09-2025 Dr. Pietro Turner MD -Laboratory, [facility] Start: 02-09-2025 End: 02-09-2025 ambulatory [facility] Start: 01-01-2025 End: 01-01-[address] Pietro Turner MD -[place] [facility] Work Phone: Start: 01-01-2025 End: 01-01-2025 Dr. Pietro Turner MD -[place] [facility] Work Phone: Start: 01-01-2025 End: 01-01-2025 ambulatory [facility] Start: 12-22-2024 ambulatory [facility] Start: 12-08-2024 ambulatory [facility] Start: 11-25-2024 End: 11-25-[address] Marck Orellana MD -[facility] Work Phone: Start: 11-25-2024 End: 11-25-2024 Dr. Marck Orellana MD -[facility] Work Phone: Start: 11-25-2024 End: 11-25-2024 ambulatory [facility] Start: 11-14-2024 End: 11-14-2024 [facility] Start: 11-14-2024 End: 11-14-2024 Emergency department patient visit Dr. Lamberto Desai DO -Emergency Department Work Phone: Start: 11-13-2024 End: 11-13-2024 Patient encounter procedure Solitario Guy [facility] -[facility] Work Phone: Start: 11-13-2024 End: 11-13-2024 Solitario Guy PA -[facility] Work Phone: Start: 11-13-2024 End: 11-13-2024 ambulatory Solitario KILGORE Facility:[facility] Start: 11-07-2024 Non-patient / Non-visit Dr. Dimitry Camp MD -[facility] Start: 11-07-2024 End: 11-07-2024 Admission to same day surgery center Dr. Dimitry Camp MD -Endoscopy Work Phone: Start: 11-07-2024 End: 11-07-2024 Dr. Dimitry Camp MD -Endoscopy Work Phone: Start: 11-07-2024 End: 11-07-2024 ambulatory Pietro Turner Facility:[facility] Start: 10-30-2024 End: 10-30-[address] Pietro Turner MD Work Phone: [facility] Work Phone: Start: 10-30-2024 End: 10-30-2024 Discharged Recurring Solitario KILGORE -Occupational Thera py Work Phone: Start: 10-30-2024 End: 10-30-2024 Solitario KILGORE -Occupational Therap y Work Phone: Start: 10-27-2024 ambulatory Marck Orellana Facility:[facility] Start: 10-27-2024 Non-patient / Non-visit Dr. Marck Orellana MD -[facility] Start: 10-27-2024 End: 10-27-2024 Patient encounter procedure Jocelyne Dickey DELI BAKERY CLERK-C -Cardiovascular Services Work Phone: Start: 10-27-2024 End: 10-27-2024 Dr. Marck Orellana MD [facility] Start: 10-27-2024 End: 10-27-2024 ambulatory Jocelyne iDckey NP Facility:[facility] Start: 10-16-2024 End: 10-16-2024 Patient encounter procedure Solitario KILGORE -[facility] Work Phone: Start: 10-16-2024 End: 10-16-2024 Solitario KILGORE -[facility] Work Phone: Start: 10-16-2024 End: 10-16-2024 ambulatory Solitario KILGORE Facility:[facility] Start: 10-14-2024 End: 10-14-[address] Dimitry Camp MD -[facility] Work Phone: Start: 10-14-2024 End: 10-14-2024 ambulatory Pietro Turner Facility:[facility] Start: 09-26-2024 End: 09-26-2024 ambulatory Solitario KILGORE Facility:[facility] Start: 09-26-2024 End: 09-26-2024 ambulatory Solitario KILGORE Facility:[facility] Start: 09-11-2024 ambulatory Pietro Turner Facility :[facility] Start: 09-05-2024 End: 09-05-2024 ambulatory Pietro Turner Facility:[facility] Start: 02-19-2024 End: 02-19-2024 Emergency department patient visit Dr. Pietro Turner Work Phone: [facility]-Emergency Department Work Phone: Start: 01-07-2024 End: 01-27-[address] Pietro Turner Work Phone: [facility] Work Phone: Start: 01-07-2024 End: 01-27-[address] [facility] Start: 01-07-[address] [facility] Start: 01-03-2024 End: 01-03-[address] Pietro Turner Work Phone: [facility] Work Phone: Start: 01-03-2024 End: 01-03-[address] Pietro Turner Work Phone: [facility] Work Phone: Start: 11-14-2023 End: 01-31-[address] Pietro Turner Work Phone: [facility] Work Phone: Start: 11-07-2023 End: 11-07-[address] Pietro Turner Work Phone: [facility] Work Phone: Start: 10-05-2023 End: 10-05-2023 ambulatory KASEY MANJIT NATALY Facility:[facility] Start: 09-25-2023 End: 09-25-[address] Pietro Turner Work Phone: [facility] Work Phone: Start: 09-24-2023 End: 09-24-[address] Pietro Turner Work Phone: [facility] Work Phone: Start: 09-24-2023 End: 09-24-[address] Pietro Turner Work Phone: [facility]-Laboratory Work Phone: Start: 08-31-2023 End: 08-31-[address] Pietro Turner Work Phone: [facility] Work Phone: Start: 08-23-2023 End: 08-23-[address] Pietro Turner Work Phone: [facility] Work Phone: Start: 03-30-2023 End: 03-30-[address] Pietro Turner Work Phone: [facility] Work Phone: Start: 03-30-2023 End: 03-30-[address] Pietro Turner Work Phone: [facility]-Laboratory Start: 03-07-2023 End: 03-07-[address] Pietro Turner Work Phone: [facility] Start: 03-05-2023 Non-patient / Non-visit Dr. Pietro Turner Work Phone: [facility] Start: 03-05-2023 End: 03-05-[address] Pietro Turner Work Phone: [facility] Work Phone: Start: 03-05-2023 End: 03-05-[address] Pietro Turner Work Phone: [facility]-Cardiovascular Services Start: 01-29-2023 End: 01-29-[address] Pietro Turner Work Phone: [facility] Start: 01-22-2023 End: 01-22-[address] Pietro Turner Work Phone: [facility]-Laboratory Start: 11-09-2022 End: 11-09-[address] Pietro Turner Work Phone: [facility] Start: 10-18-2022 End: 10-18-[address] Pietro Turner Work Phone: [facility] Work Phone: Start: 10-18-2022 End: 10-18-[address] Pietro Turner Work Phone: [facility] Start: 09-27-2022 End: 09-27-[address] Pietro Turner Work Phone: [facility] Work Phone: Start: 09-27-2022 End: 09-27-[address] [facility] Start: 07-29-2022 End: 07-30-2022 Emergency department patient visit Dr. Pietro Turner Work Phone: [facility]-Emergency Department Start: 07-19-2022 End: 07-19-[address] Pietro Turner Work Phone: [facility] Start: 06-07-2022 End: 06-07-[address] Pietro Turner Work Phone: [facility]-Physical Therapy Start: 05-29-2022 End: 05-29-[address] Pietro Turner Work Phone: [facility] Start: 05-22-2022 Non-patient / Non-visit Dr. Pietro Turner Work Phone: [facility] Internal Medicine Start: 05-18-2022 End: 05-18-[address] Pietro Turner Work Phone: [facility] Start: 05-11-2022 End: 05-11-[address] Pietro Turner Work Phone: [facility] Start: 05-08-2022 End: 05-08-[address] [facility] Start: 05-02-2022 End: 05-02-[address] Pietro Turner Work Phone: [facility] Start: 04-24-2022 End: 04-24-[address] [facility] Start: 02-20-2022 Non-patient / Non-visit Dr. Pietro Turner Work Phone: [facility] Internal Medicine Start: 02-20-2022 End: 02-20-[address] [facility] Start: 02-16-2022 End: 02-16-[address] [facility] Start: 02-16-2022 End: 02-16-[address] Pietro Turner Work Phone: [facility] Internal Medicine Start: 01-11-2022 End: 01-11-[address] Pietro Turner Work Phone: [facility]-Cardiovascular Services Start: 12-22-2021 End: 12-22-[address] [facility] Start: 11-28-2021 End: 11-28-[address] Pietro Turner Work Phone: [facility]-Pulmonary Medicine [facility] Start: 11-02-2021 End: 11-02-2021 Admission to same day surgery center Dr. Pietro Turner Work Phone: [facility]-[place]/Special Procedures Start: 09-20-2021 End: 09-20-2021 Patient encounter procedure MAIKOL ALEGRE APRN-CLINICAL EXERCISE SPECIALIST [facility] Start: 08-16-2021 End: 08-16-[address] JOCELYNE PHELPS MD [facility] Procedures Date Procedure Procedure Detail [...] Dr. Marck Orellana MD Comment on above: [id number] LAD w/ 3.5 x 28 mm Synergy [...] Activity Detail Author Start: 08-24-2025 End: 08-24-2025 -[facility] Work Phone: Start: 08-14-2025 End: 08-14-2025 -Laboratory Work Phone: Start: 08-10-2025 End: 08-10-2025 Evaluation of diagnostic study results [facility] Start: 06-17-2025 [facility] Start: 02-09-2025 Testosterone measurement [facility] Start: 11-14-2024 [facility] Start: 11-14-2024 [facility] Start: 11-07-2024 Patient discharge [facility] Start: 02-19-2024 [facility] Start: 09-25-2023 Patient referral [facility] Work Phone: Start: 05-11-2022 Patient referral [facility] Work Phone: CBC W Auto Different ial panel - Blood [facility] Work Phone: CBC W Auto Different ial panel - Blood [facility] Cobalamin (Vitamin B 12) [Mass/volume] in Serum or Plasma [facility] pital Colonoscopy [facility] panel - Serum or Plasma [facility] Comprehensive [facility] 1999 panel - Serum or Plasma [facility] Creatinine [Mass/debra e] in 24 hour Urine [facility] Hemoglobin A1c/Hemog lobin.total in Blood [facility] [facility] Hemoglobin A1c/Hemog lobin.total in Blood [facility] Hemoglobin A1c/Hemog lobin.total in Blood [facility] Lipid 1995 panel - S miranda or Plasma [facility] Work Phone: Lipid 1995 panel - S miranda or Plasma [facility] Lipid 1995 panel - S miranda or Plasma [facility] Magnesium measurement [facility] Patient Education [facility] Work Phone: Patient referral [facility] Work Phone: Prostate specific an tigen measurement [facility] Work Phone: Prostate specific an tigen measurement [facility] Protein [Mass/time] in 24 hour Urine [facility] Serum testosterone measurement [facility] Serum testosterone measurement [facility] Serum testosterone measurement [facility] T4 free measurement [facility] Testosterone Free [M ass/volume] in Serum or Plasma [facility] Work Phone: Testosterone Free [M ass/volume] in Serum or Plasma [facility] Testosterone Free [M ass/volume] in Serum or Plasma [facility] Testosterone Free [M ass/volume] in Serum or Plasma [facility] Testosterone Free [M ass/volume] in Serum or Plasma [facility] Testosterone measurement [facility] Work Phone: Testosterone measurement [facility] Testosterone measurement [facility] Testosterone measurement [facility] Testosterone measurement [facility] Testosterone measurement [facility] Thyroid stimulating hormone measurement [facility] Work Phone: Thyroid stimulating hormone measurement [facility] Thyroid stimulating hormone measurement [facility] Triiodothyronine, fr ee measurement [facility] Urinalysis complete panel - Urine [facility] Vitamin D, 25-hydrox y measurement [facility] Work Phone: [facility] Immunizations Immunization Date Immunization Notes Care Provider Fa cility 07-20-2023 Covid (Moderna) Dr. Pietro whittaker Work Phone: [facility] 07-16-2023 influenza, injectabl e, quadrivalent, preservative free Dr. Pietro Turner Work Phone: [facility] 02-03-2021 Covid (Pfizer) Dr. Pietro schmitt Work Phone: [facility] 01-13-2021 Covid (Pfizer) Dr. Pietro schmitt Work Phone: [facility] 08-02-2020 influenza, seasonal, injectable Dr. Pietro Turner Work Phone: [facility] 08-02-2020 influenza, injectabl e, quadrivalent, preservative free; Translations: [Fluarix PF Quadrivalent ] DR JOCELYNE PHELPS MD [facility] 09-03-2019 influenza, injectabl e, quadrivalent, preservative free; Translations: [Fluarix PF Quadrivalent ] DR JOCELYNE PHELPS MD [facility] 06-23-2013 pneumococcal polysaccharide vaccine, [address] Pietro Turner Work Phone: [facility] Payers Date Payer Category Payer Unknown [id number] 2024 Unknown [id number] 2024 Unknown [id number] 2024 Self-pay [id number] 2024 Private Health Insurance [facility] [id number] 2021 Medicare [id number] Medicare [id number] Unknown [facility] [id number] Unknown [id number] 2.16.8 40.1.825637.3.579.2.462 Unknown [id number] 2.16.8 40.1.119724.3.579.2.462 Unknown [id number] 2.16.8 40.1.603186.3.579.2.462 Unknown [id number] 2.16.8 40.1.214356.3.579.2.462 Unknown [id number] 2.16.8 40.1.707829.3.579.2.462 Unknown [id number] 2.16.8 40.1.108525.3.579.2.462 Unknown [id number] 2.16.8 40.1.189176.3.579.2.462 Unknown [id number] 2.16.8 40.1.576701.3.579.2.462 Unknown [id number] 2.16.8 40.1.882056.3.579.2.462 Unknown [id number] 2.16.8 40.1.658287.3.579.2.462 Unknown [id number] 2.16.8 40.1.768418.3.579.2.462 Unknown [id number] 2.16.8 40.1.793017.3.579.2.462 Unknown [id number] 2.16.8 40.1.059957.3.579.2.462 Unknown [id number] 2.16.8 40.1.440421.3.579.2.462 Unknown [id number] 2.16.8 40.1.934203.3.579.2.462 Unknown [id number] 2.16.8 40.1.603148.3.579.2.462 Unknown [id number] 2.16.8 40.1.641905.3.579.2.462 Unknown [id number] 2.16.8 40.1.458495.3.579.2.462 Unknown [id number] 2.16.8 40.1.753971.3.579.2.462 Unknown [id number] 2.16.8 40.1.157042.3.579.2.462 Unknown [id number] 2.16.8 40.1.729794.3.579.2.462 Unknown [id number] 2.16.8 40.1.044583.3.579.2.462 Unknown [id number] 2.16.8 40.1.383543.3.579.2.462 Unknown [id number] 2.16.8 40.1.652719.3.579.2.462 Unknown [id number] 2.16.8 40.1.970678.3.579.2.462 Unknown [id number] 2.16.8 40.1.323028.3.579.2.462 Unknown [id number] 2.16.8 40.1.593121.3.579.2.462 Unknown [id number] 2.16.8 40.1.734447.3.579.2.462 Unknown [id number] 2.16.8 40.1.443676.3.579.2.462 Unknown [id number] 2.16.8 40.1.541734.3.579.2.462 Unknown [id number] 2.16.8 40.1.572018.3.579.2.462 Social History Date Type Detail Facility Start: 12-24-2019 Never smoked t sariah (finding) [facility] Comment on above: no smoke exposure Start: 1960 Sex Assigned At Male [facility] Start: 02-16-2022 End: 02-19-2024 Tobacco smoking status NHIS Unknown if ever smoked [facility] Start: 11-19-2020 None [facility] Start: 09-14-2020 Alone [facility] Start: 12-08-2020 Cigarettes [facility] Start: 12-04-2024 End: 04-27-2025 Tobacco smoking status NHIS Ex-smoker (finding) [facility] Start: 02-05-2025 End: 02-12-2025 Sex Male (finding) [facility] Sex [facility] Medical Equipment Procedure Code Equipment Code Equipment Original Text Equipment Identifier Dates Total cholecystectomy with exploration of common bile duct ()[id number] [facility] Start: 06-03-2024 Needle (Disp) 18 G (Bd Regular Bevel [place]) 18 gauge x 1 needle Start: 05-22-2022 Syringe With Needle, Safety (Monoject Safety Syringes) 3 mL 23 gauge x 1 syringe Start: 05-22-2022 Needle (Disp) 18 G (Bd Regular [place]vel [place]) 18 gauge x 1 needle Start: 05-22-2022 End: 05-22-2022 Syringe With Needle, Safety (Monoject Safety Syringes) 3 mL 23 gauge x 1 syringe Start: 05-22-2022 End: 05-22-2022 Needle (Disp) 18 G (Bd Regular Bevel [place]) 18 gauge x 1 needle Start: 05-22-2022 Syringe With Needle, Safety (Monoject Safety Syringes) 3 mL 23 gauge x 1 syringe Start: 05-22-2022 Needle (Disp) 18 G (Bd Regular [place]vel [place]) 18 gauge x 1 needle Start: 05-22-2022 End: 05-22-2022 Syringe With Needle, Safety (Monoject Safety Syringes) 3 mL 23 gauge x 1 syringe Start: 05-22-2022 End: 05-22-2022 Needle (Disp) 18 G (Bd Regular [place]vel [place]) 18 gauge x 1 needle Start: 05-22-2022 Syringe With Needle, Safety (Monoject Safety Syringes) 3 mL 23 gauge x 1 syringe Start: 05-22-2022 Needle (Disp) 18 G (Bd Regular [place]vel [place]) 18 gauge x 1 needle Start: 05-22-2022 End: 05-22-2022 Syringe With Needle, Safety (Monoject Safety Syringes) 3 mL 23 gauge x 1 syringe Start: 05-22-2022 End: 05-22-2022 Needle (Disp) 18 G (Bd Regular [place]vel [place]) 18 gauge x 1 needle Start: 05-22-2022 Syringe With Needle, Safety (Monoject Safety Syringes) 3 mL 23 gauge x 1 syringe Start: 05-22-2022 Needle (Disp) 18 G (Bd Regular [place]vel [place]) 18 gauge x 1 needle Start: 05-22-2022 End: 05-22-2022 Syringe With Needle, Safety (Monoject Safety Syringes) 3 mL 23 gauge x 1 syringe Start: 05-22-2022 End: 05-22-2022 Needle (Disp) 18 G (Bd Regular [place]vel [place]) 18 gauge x 1 needle Start: 05-22-2022 Syringe With Needle, Safety (Monoject Safety Syringes) 3 mL 23 gauge x 1 syringe Start: 01-31-2023 Needle (Disp) 18 G (Bd Regular [place]vel [place]) 18 gauge x 1 needle Start: 05-22-2022 End: 05-22-2022 Syringe With Needle, Safety (Monoject Safety Syringes) 3 mL 23 gauge x 1 syringe Start: 05-22-2022 End: 05-22-2022 Syringe With Needle, Safety (Monoject Safety Syringes) 3 mL 23 gauge x 1 syringe Start: 05-22-2022 End: 01-31-2023 Needle (Disp) 18 G (Bd Regular [place]vel [place]) 18 gauge x 1 needle Start: 05-22-2022 Syringe With Needle, Safety (Monoject Safety Syringes) 3 mL 23 gauge x 1 syringe Start: 01-31-2023 Needle (Disp) 18 G (Bd Regular [place]vel [place]) 18 gauge x 1 needle Start: 05-22-2022 End: 05-22-2022 Syringe With Needle, Safety (Monoject Safety Syringes) 3 mL 23 gauge x 1 syringe Start: 05-22-2022 End: 05-22-2022 Syringe With Needle, Safety (Monoject Safety Syringes) 3 mL 23 gauge x 1 syringe Start: 05-22-2022 End: 01-31-2023 Needle (Disp) 18 G (Bd Regular [place]vel [place]) 18 gauge x 1 needle Start: 05-22-2022 Syringe With Needle, Safety (Monoject Safety Syringes) 3 mL 23 gauge x 1 syringe Start: 01-31-2023 Needle (Disp) 18 G (Bd Regular [place]vel [place]) 18 gauge x 1 needle Start: 05-22-2022 End: 05-22-2022 Syringe With Needle, Safety (Monoject Safety Syringes) 3 mL 23 gauge x 1 syringe Start: 05-22-2022 End: 05-22-2022 Syringe With Needle, Safety (Monoject Safety Syringes) 3 mL 23 gauge x 1 syringe Start: 05-22-2022 End: 01-31-2023 Needle (Disp) 18 G (Bd Regular [place]vel [place]) 18 gauge x 1 needle Start: 05-22-2022 Syringe With Needle, Safety (Monoject Safety Syringes) 3 mL 23 gauge x 1 syringe Start: 01-31-2023 Needle (Disp) 18 G (Bd Regular [place]vel [place]) 18 gauge x 1 needle Start: 05-22-2022 End: 05-22-2022 Syringe With Needle, Safety (Monoject Safety Syringes) 3 mL 23 gauge x 1 syringe Start: 05-22-2022 End: 05-22-2022 Syringe With Needle, Safety (Monoject Safety Syringes) 3 mL 23 gauge x 1 syringe Start: 05-22-2022 End: 01-31-2023 Needle (Disp) 18 G (Bd Regular [place]vel [place]) 18 gauge x 1 needle Start: 05-22-2022 Syringe With Needle, Safety (Monoject Safety Syringes) 3 mL 23 gauge x 1 syringe Start: 01-31-2023 Needle (Disp) 18 G (Bd Regular [place]vel [place]) 18 gauge x 1 needle Start: 05-22-2022 End: 05-22-2022 Syringe With Needle, Safety (Monoject Safety Syringes) 3 mL 23 gauge x 1 syringe Start: 05-22-2022 End: 05-22-2022 Syringe With Needle, Safety (Monoject Safety Syringes) 3 mL 23 gauge x 1 syringe Start: 05-22-2022 End: 01-31-2023 Needle (Disp) 18 G (Bd Regular [place]vel [place]) 18 gauge x 1 needle Start: 05-22-2022 Syringe With Needle, Safety (Monoject Safety Syringes) 3 mL 23 gauge x 1 syringe Start: 01-28-2024 Needle (Disp) 18 G (Bd Regular [place]vel [place]) 18 gauge x 1 needle Start: 05-22-2022 [...] Needle (Disp) 18 G (Bd Regular [place]vel [place]) 18 gauge x 1 needle Start: 05-22-2022 Syringe With Needle, Safety 3 mL 25 gauge x 1 syringe Start: 05-13-2024 Needle (Disp) 18 G (Bd Regular [place]vel [place]) 18 gauge x 1 needle Start: 05-22-2022 [...] Needle (Disp) 18 G (Bd Regular [place]vel [place]) 18 gauge x 1 needle Start: 05-22-2022 Syringe With Needle, Safety 3 mL 25 gauge x 1 syringe Start: 05-13-2024 Needle (Disp) 18 G (Bd Regular [place]vel [place]) 18 gauge x 1 needle Start: 05-22-2022 [...] Needle (Disp) 18 G (Bd Regular [place]vel [place]) 18 gauge x 1 needle Start: 05-22-2022 Syringe With Needle, Safety 3 mL 25 gauge x 1 syringe Start: 05-13-2024 Needle (Disp) 18 G (Bd Regular [place]vel [place]) 18 gauge x 1 needle Start: 05-22-2022 [...] Needle (Disp) 18 G (Bd Regular [place]vel [place]) 18 gauge x 1 needle Start: 05-22-2022 Syringe With Needle, Safety 3 mL 25 gauge x 1 syringe Start: 05-13-2024 Needle (Disp) 18 G (Bd Regular [place]vel [place]) 18 gauge x 1 needle Start: 05-22-2022 [...] Needle (Disp) 18 G (Bd Regular [place]vel [place]) 18 gauge x 1 needle Start: 05-22-2022 Syringe With Needle, Safety 3 mL 25 gauge x 1 syringe Start: 05-13-2024 Needle (Disp) 18 G (Bd Regular [place]vel [place]) 18 gauge x 1 needle Start: 05-22-2022 [...] Needle (Disp) 18 G (Bd Regular [place]vel [place]) 18 gauge x 1 needle Start: 05-22-2022 Syringe With Needle, Safety 3 mL 25 gauge x 1 syringe Start: 05-13-2024 Needle (Disp) 18 G (Bd Regular [place]vel [place]) 18 gauge x 1 needle Start: 05-22-2022 [...] Needle (Disp) 18 G (Bd Regular [place]vel [place]) 18 gauge x 1 needle Start: 05-22-2022 Syringe With Needle, Safety 3 mL 25 gauge x 1 syringe Start: 05-13-2024 Needle (Disp) 18 G (Bd Regular [place]vel [place]) 18 gauge x 1 needle Start: 05-22-2022 [...] Needle (Disp) 18 G (Bd Regular [place]vel [place]) 18 gauge x 1 needle Start: 05-22-2022 Syringe With Needle, Safety 3 mL 25 gauge x 1 syringe Start: 05-13-2024 Needle (Disp) 18 G (Bd Regular [place]vel [place]) 18 gauge x 1 needle Start: 05-22-2022 [...] Assessment Result Facility 11-14-2024 Cognitive function Voice/Name [facility] Work Phone: 11-07-2024 Cognitive function Voice/Name;Touch/Urielki benito [facility] Work Phone: 02-19-2024 Cognitive function Voice/Name [facility] Work Phone: Clinical Notes 07-26-2020 to 08-10-2025 Note Date & Type Note Facility 08-10-2025 Progress note Note Date/Time August 10, 2025 2:09pm [facility] H ealt System [facility] [address] [place] [address] OFFICE VISIT Date of Service: 08/10/25 MR#: [id number] Acct: [id number] Name: ALIX LEE Rep #: [id number] : 1960 Provider: MICHELLE Dickey Age/Sex: 65/M Location: [facility] Status: Signed HPI HPI History of Present [...] room air Intake Visit Reasons: 9 M Rn Iv Therapy Required: No Is patient in pain?: No Allergies Penicillins (PCN) Allergy (Verified 08/10/25 13:38) Other Mrfacmd-KKX-UuG Reductase Inhibitor Adverse Reaction (Intermediate, Verified 08/10/25 13:38) myalgias lisinopril Adverse Reaction (Verified 08/10/25 13:38) cough spironolactone Adverse Reaction (Verified 08/10/25 13:38) elevated blood sugar Medications ?Medication ?Instructions ?Recorded ?Confirmed ?Type needle (disp) 18 G 18 gauge x 1 #100 ea 05/22/22/ Rx (BD Regular Bevel [place]) flash glucose scanning reader #1 ea 02/05/24 07/28/25 Rx (FreeStyle Jean 2 [place]) cholecalciferol (vitamin D3) 125 5,000 unit PO [...] year?: No Nurse's Note: refused ekg today [facility] Medical History (Updated 07/28/25 @ 11:31 [...] pulmonary arterial hypertension 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 Echocardiogram 12/29/2020 ([facility]) Summary 1. Left ventricle: The cavity [...] coronary artery stent placement: Status: Acute Comment: FDW-YBA-Vuok LAD w/ 3.5 x 28 mm Synergy [...] updated, as necessary. Follow Up: 12-15 Months (QUALITY TESTER) Coding Level of Care Code Off vis,est,level [...] Pietro Turner MD ~ [facility] [employer] Work Phone: 1(347) 703-964509-30-2025 Progress note Author Pietro Turner [facility] Note Date/Time July 28, 2025 11:00am [facility] [address] [place] [address] OFFICE VISIT Date of Service: 07/28/25 MR#: [id number] Acct: [id number] Name: ALIX LEE Rep #: [id number] : 1960 Provider: Dr. Carmen Turner MD Age/Sex: 65/M Location: [facility] [place] Status: Signed Intake Vital Signs 06/17/25 15:11 [...] room air Intake Visit Reasons: Persistent Cough Rn Iv Therapy Required: No Accompanied by: Self Is patient in pain?: No Allergies Penicillins (PCN) Allergy (Verified 07/28/25 10:37) Other Hpywypn-FYT-MdB Reductase Inhibitor Adverse Reaction (Intermediate, Verified 07/28/25 10:37) myalgias lisinopril Adverse Reaction (Verified 07/28/25 10:37) cough spironolactone Adverse Reaction (Verified 07/28/25 10:37) elevated blood sugar Medications ?Medication ?Instructions ?Recorded ?Confirmed ?Type needle (disp) 18 G 18 gauge x 1 #100 ea 05/22/2207/01 Rx (BD Regular Bevel [place]) flash glucose scanning reader #1 ea 02/05/24 07/28/25 Rx (FreeStyle Jean 2 [place]) cholecalciferol (vitamin D3) 125 5,000 unit PO [...] pulmonary arterial hypertension 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 [place], [place] [address] OFFICE VISIT Date of Service: 07/28/25 MR#: [id number] Acct: [id number] Name: ALIX LEE Rep #: [id number] : 1960 Provider: Dr. Carmen Turner MD Age/Sex: 65/M Location: [facility] [place] Status: Signed Intake Vital Signs 06/17/25 15:11 [...] room air Intake Visit Reasons: Persistent Cough Rn Iv Therapy Required: No Accompanied by: Self Is patient in pain?: No Allergies Penicillins (PCN) Allergy (Verified 07/28/25 10:37) Other Bnhzknc-TOM-JmW Reductase Inhibitor Adverse Reaction (Intermediate, Verified 07/28/25 10:37) myalgias lisinopril Adverse Reaction (Verified 07/28/25 10:37) cough spironolactone Adverse Reaction (Verified 07/28/25 10:37) elevated blood sugar Medications ?Medication ?Instructions ?Recorded ?Confirmed ?Type needle (disp) 18 G 18 gauge x 1 #100 ea 05/22/2207/01 Rx (BD Regular Bevel [place]) flash glucose scanning reader #1 ea 02/05/24 07/28/25 Rx (FreeStyle Jean 2 [place]) cholecalciferol (vitamin D3) 125 5,000 unit PO [...] pulmonary arterial hypertension 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 [...] you participate in: walking HPI HPI Details: ALXI LEE, is a 65 M who presents [...] dry cough R05.3 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 Author Type: Nurse Practitioner Type: Progress Notes Filed: 05/14/2025 16:01 Note Text: [facility] NEW PATIENT HISTORY [...] and priapism. Advised patient to consult with rotor plate washer regarding discontinuation of isosorbide before initiating PDE5 inhibitors. Alternative treatments discussed include vacuum erection devices and intracavernosal injections. Patient to follow up with rotor plate washer and notify us once cleared to [...] does not take chances due to past DE. - Recent blood pressure reading was 164/92 [...] SURECLICK) Inject 140 mg (more content not included)...[facility]06-30-2025 Evaluation note * Diagnosis Onset Date Resolution Status Admit Date Acute bronchitis acute March 10:28am 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 with other forms of acute April 27, 2025 10:28am Erectile dysfunction acute April 27, 2025 10:28am Essential hypertension acute 2024 10:28am Hyperlipemia chronic April 27, 025 10:28am Type 2 diabetes mellitus chronic April 27, 2025 10:28am [facility] Work Phone: 1(816) 857-311406-30-2025 Evaluation note* Diagnosis Onset Date Resolution Status Admit Date Acute bronchitis acute March 10:28am 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 with other forms of acute April 27, 2025 10:28am Erectile dysfunction acute April 27, 2025 10:28am Essential hypertension acute 2024 10:28am Hyperlipemia chronic April 27, 025 10:28am Type 2 diabetes mellitus chronic April 27, 2025 10:28am 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 with other forms of acute May 18, 2025 11:38am Concern about urinary tract disease without diagnosis acute April 292024 11:38am Erectile dysfunction acute May 18, 2025 11:38am Essential hypertension acute 2024 11:38am Hypogonadism in male acute May 18, 2025 11:38am Type 2 diabetes mellitus chronic May 18, 2025 11:38am [facility] Work Phone: 1([phone]) 731-345506-30-2025 Evaluation note* Diagnosis Onset Date Resolution Status Admit Date Acute bronchitis acute March 10:28am 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 with other forms of acute April 27, 2025 10:28am Erectile dysfunction acute April 27, 2025 10:28am Essential hypertension acute Ju 2024 10:28am Hyperlipemia chronic April 27 025 10:28am Type 2 diabetes mellitus chronic April 27, 2025 10:28am 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 with other forms of acute May 18, 2025 11:38am Concern about urinary tract disease without diagnosis acute April 292024 11:38am Erectile dysfunction acute May 18, 2025 11:38am Essential hypertension acute Ju ly 2024 11:38am Hypogonadism in male acute May 18, 2025 11:38am Type 2 diabetes mellitus chronic May 18, 2025 11:38am Discomfort of right hip acute A ugust 2024 3:02pm [place] [facility] Work Phone: 1([phone]) 180-243006-30-2025 Evaluation note* Diagnosis Onset Date Resolution Status Admit Date Acute bronchitis acute March 10:28am 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 with other forms of acute April 27, 2025 10:28am Erectile dysfunction acute April 27, 2025 10:28am Essential hypertension acute Ju 2024 10:28am Hyperlipemia chronic April 27 10:28am Type 2 diabetes mellitus chronic April 27, 2025 10:28am 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 with other forms of acute May 18, 2025 11:38am Concern about urinary tract disease without diagnosis acute April 292024 11:38am Erectile dysfunction acute May 18, 2025 11:38am Essential hypertension acute Ju ly 2024 11:38am Hypogonadism in male acute May 18, 2025 11:38am Type 2 diabetes mellitus chronic May 18, 2025 11:38am 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 with other forms of acute June 17 3:02pm Discomfort of right hip acute A ugust 2024 3:02pm Essential hypertension acute Au adore 2024 3:02pm Impacted cerumen of both ears acute June 17, 2025 3:02pm Type 2 diabetes mellitus chronic June 17, 2025 3:02pm Proteinuria noneactive June 17, 2025 3:02pm [facility] Work Phone: 1(403) 127-416706-30-2025 Evaluation note* Diagnosis Onset Date Resolution Status Admit Date Acute bronchitis acute March 10:28am 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 with other forms of acute April 27 10:28am Erectile dysfunction acute April 27, 2025 10:28am Essential hypertension acute Ju 2024 10:28am Hyperlipemia chronic April 27 10:28am Type 2 diabetes mellitus chronic April 27, 2025 10:28am 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 with other forms of acute May 18 11:38am Concern about urinary tract disease without diagnosis acute April 292024 11:38am Erectile dysfunction acute May 18, 2025 11:38am Essential hypertension acute Ju 2024 11:38am Hypogonadism in male acute May 18, 2025 11:38am Type 2 diabetes mellitus chronic May 18, 2025 11:38am 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 with other forms of acute June 17, 2025 3:02pm Discomfort of right hip acute A ugust 2024 3:02pm Essential hypertension acute [place] 2024 3:02pm Impacted cerumen of both ears acute June 17, 2025 3:02pm Type 2 diabetes mellitus chronic June 17, 2025 3:02pm Proteinuria noneactive June 17, 2025 3:02pm 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 with other forms of acute July 282024 10:31am Essential hypertension acute Se ptember 2024 10:31am Persistent dry cough acute Sept ember 2024 10:31am [facility] Work Phone: [phone] Evaluation note* Diagnosis Onset Date Resolution Status Admit Date Acute bronchitis acute March 10:28am Atherosclerotic heart disease of rincon coronary artery with other forms of acute April 27, 2025 10:28am Erectile dysfunction acute April 27, 2025 10:28am Essential hypertension acute [place] 2024 10:28am Hyperlipemia chronic April 27 10:28am Type 2 diabetes mellitus chronic April 27, 2025 10:28am Atherosclerotic heart disease of rin[place] coronary artery with other forms of acute May 18, 2025 11:38am Concern about urinary tract disease without diagnosis acute May 18, 2025 11:38am Erectile dysfunction acute May 18, 2025 11:38am Essential hypertension acute Ju ly 2024 11:38am Hypogonadism in male acute May 18, 2025 11:38am Type 2 diabetes mellitus chronic May 18, 2025 11:38am Atherosclerotic heart disease of rin[place] coronary artery with other forms of acute June 17 3:02pm Discomfort of right hip acute A ugust 2024 3:02pm Essential hypertension acute [place] 2024 3:02pm Impacted cerumen of both ears acute June 17 3:02pm Type 2 diabetes mellitus chronic June 17, 2025 3:02pm Proteinuria noneactive June 17, 2025 3:02pm Atherosclerotic heart disease of rin[place] coronary artery with other forms of acute [...] lower leg acute Octobe r 2024 1:36pm [facility] Work Phone: 1(764) 599-511003-06-2025 Evaluation note* Diagnosis Onset Date Resolution Status Admit Date 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 with other forms of acute January 01, 2025 4:05pm Erectile dysfunction acute Klaus h 2024 4:05pm Low testosterone in male acute January 01, 2025 4:05pm Hyperlipemia chronic January 01, 2 025 4:05pm Schizoaffective disorder chronic January 01, 2025 4:05pm Type 2 diabetes mellitus chronic January 01, 2025 4:05pm 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 with other forms of acute April 27, 2025 10:28am Essential hypertension acute Ju ne 2024 10:28am Hyperlipemia chronic April 27, 2 025 10:28am Type 2 diabetes mellitus chronic April 27, 2025 10:28am [facility] Work Phone: 1(311) 509-737901-10-2025 [facility] Medical Records Department [address] [place] [address] History Physical Exam 11/07/24 0655 MR#: [id number] Acct: [id number] Name: ALIX LEE Rep #: [id number] : 1960 64 From: Dimitry Camp MD PCP: Dr. Pietro Turner MD Status:[facility] Location: [place] [address] History and Physical Date of Admission: 11/07/24 [...] ea 05/22/22 10/14/24 Rx (BD Regular Bevel [place]) nitroglycerin 0.4 mg sublingual 0.4 mg sublingual Q5-15M PRN chest 01/11/24 10/14/24 Rx tablet (Nitrostat) pain #25 tabs atorvastatin 40 mg tablet 40 mg PO QHS 90 days #90 tabs 01/14/24 10/14/24 Rx flash glucose scanning reader #1 ea 02/05/24 10/14/24 Rx (FreeStyle Jean 2 [place]) flash glucose sensor (FreeStyle #1 ea 02/05/24 [...] pulmonary arterial hypertension 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 [...] finger Family History (Reviewed (more content not included)...[facility]12-19-2024 Evaluation note* Diagnosis Onset Date Resolution Status Admit Date Right elbow tend[facility] 3:[facility] Right elbow tendinitis acute [facility] 2024 2:55pm Essential hypertension acute [facility] 2024 2:51pm History of coronary artery stent placement July 26, 2020 acute October 2:51pm Hyperlipemia chronic October 2:51pm Type 2 diabetes mellitus chronic November 25, 2024 2:51pm Atherosclerotic heart disease of [place] coronary artery with other forms of acute January 01, 2025 4:05pm Erectile dysfunction acute Klaus h 2024 4:05pm Low testosterone in male acute January 01, 2025 4:05pm Hyperlipemia chronic January 01, 2 025 4:05pm Schizoaffective disorder chronic January 01, 2025 4:05pm Type 2 diabetes mellitus chronic January 01, 2025 4:05pm [facility] Work Phone: 1(992) 339-379512-17-2024 Evaluation note* Diagnosis Onset Date Resolution Status Admit Date Colon cancer screening acute 2023 1:29pm Right elbow tendinitis acute [facility]23 3:39pm Right elbow tendinitis acute [facility] 2024 2:55pm Essential hypertension acute [facility] 2024 2:51pm History of coronary artery stent placement July 26, 2020 acute October 2:51pm Hyperlipemia chronic October 2:51pm Type 2 diabetes mellitus chronic November 25, 2024 2:51pm Atherosclerotic heart disease of [place] coronary artery with other forms of acute January 01, 2025 4:05pm Erectile dysfunction acute [place]aus 2024 4:05pm Low testosterone in male acute January 01, 2025 4:05pm Hyperlipemia chronic January 01, 025 4:05pm Schizoaffective disorder chronic January 01, 2025 4:05pm Type 2 diabetes mellitus chronic January 01, 2025 4:05pm [facility] Work Phone: 1(497) 541-343112-08-2023 NoteHNO ID: [id number] Author: Melissa Mlian APRN.CLINICAL EXERCISE SPECIALIST Service: ? Author Type: Nurse Practitioner Type: [...] exposed to COVID 2 days ago at [place]. He has not had a fever. He [...] results from lab work dated: 09/24/2023 from [facility]. eGFR: 69 BUN: 23 Creatinine: 1.15 [...] Discussed expected course of illness Melissa Milan APRN.[facility]08-10-2022 NoteHNO ID: [id number] Author: Gabriela Calzada PSYD Service: ? Author [...] part in visit: patient and psychologist via [employer] zoom. Consent for this visit received from [...] part in visit: patient and psychologist via [employer] zoom. Consent for this visit received from [...] [id number] 3 11.1 10.6 0 0000 01234 5 2 15 1100 1100 4 11.0 [...] delayed phase Schizoaffective Disorder PROGRESS TO DATE: Usp Progress: Progress Short Term Condition: (more content not included)...[id number] NoteHNO ID: [id number] Author: Gabriela Calzada PSYD Service: ? Author Type: Psychologist Type: Progress Notes Filed: 05/16/2022 4:39 PM Note Text: [facility] Virtual Group May 16, 2022 Time: 3-4pm [id number]: Virtual Group Psychotherapy The [facility] virtual group [...] avoid exercise after 10pm Gabriela Calzada PSYD PsychologistCambridge [id number] Evaluation + Plan note Future Scheduled Tests Laboratory* Basic Metabolic Panel 08/29/21 * Basic Metabolic Panel 09/26/21 * Basic Metabolic Panel 10/24/21 * Basic Metabolic Panel 11/21/21 * Complete Blood Count 11/20/21 * Complete Blood Count 01/06/21 * Lipid Profile 11/20/21 * Lipid Profile 01/06/21 * Complete Metabolic Panel 11/20/21 * Complete Metabolic Panel 01/06/21 [facility] 03-11-2021 Evaluation + Plan note Future Scheduled Tests Laboratory* Basic Metabolic Panel 08/29/21 * Basic Metabolic Panel 09/26/21 * Basic Metabolic Panel 10/24/21 * Basic Metabolic Panel 11/21/21 * Complete Blood Count 11/20/21 * Complete Blood Count 01/06/21 * Lipid Profile 11/20/21 * Lipid Profile 01/06/21 * Complete Metabolic Panel 11/20/21 * Complete Metabolic Panel 01/06/21 [facility] 09-28-2020 Evaluation note* Diagnosis Onset Date Resolution Status Bloating noneactive [place] stool noneactive Constipation noneactive Essential hypertension acute History of coronary artery stent placement June 302019 acute Hyperlipemia [facility] Work Phone: 1(842) 161-171109-28-2020 Evaluation note* Diagnosis Onset Date Resolution Status Bloating noneactive [place] stool noneactive Constipation noneactive Essential hypertension acute [...] te Hyperlipemia chronic Hypogonadism in male acute [facility] Work Phone: 1(655) 239-318509-28-2020 Evaluation note* Diagnosis Onset Date Resolution Status [...] chronic Hyperlipemia chronic Schizoaffective disorder chr onic [facility] Work Phone: 1(872) 526-676809-28-2020 Evaluation note* Diagnosis Onset Date Resolution Status Essential hypertension acute History of coronary artery stent placement June 302019 acute Hyperlipemia chronic Essential hypertension acute History of coronary artery stent placement June 302019 acute Hyperlipemia chronic [id number] acute Essential hypertension acute Hypogonadism in male acute Impacted cerumen of both ears acute Obesity acute Type 2 diabetes mellitus acu te Hyperlipemia [facility] Work Phone: 1([phone]) 743-147609-28-2020 Evaluation note* Diagnosis Onset Date Resolution Status Essential hypertension acute History of coronary artery stent placement June 302019 acute Hyperlipemia chronic [id number] acute Essential hypertension acute Hypogonadism in male acute Impacted cerumen of both ears acute Obesity acute Type 2 diabetes mellitus acu te Hyperlipemia [facility] Work Phone: 1(852) 208-377909-28-2020 Evaluation note* Diagnosis Onset Date Resolution Status [...] Type 2 diabetes mellitus acu te Hyperlipemia [facility] Work Phone: 1(729) 487-156009-28-2020 Evaluation note* Diagnosis Onset Date Resolution Status Essential hypertension acute History of coronary artery stent placement June 302019 acute Type 2 diabetes mellitus acu te Hyperlipemia chronic Dyshidrotic hand dermatitis acute Chest pain acute Dyshidrotic hand dermatitis acute Essential hypertension acute Frontal headache acute Type 2 diabetes mellitus acu te GERD (gastroesophageal reflux disease) chronic Hyperlipemia [facility] Work Phone: Evaluation note* Diagnosis Onset Date Resolution Status Fatigue acute [facility] Work Phone: Evaluation note* Diagnosis Onset Date Resolution Status Fatigue acute Hypogonadism in male acute Obesity acute Type 2 diabetes mellitus acu te GERD (gastroesophageal reflux disease) chronic Hyperlipemia chronic Schizoaffective disorder chr onic [facility] Work Phone: Evaluation note* Diagnosis Onset Date Resolution Status Fatigue acute Hypogonadism in male acute Obesity acute Type 2 diabetes mellitus acu te GERD (gastroesophageal reflux disease) chronic Hyperlipemia chronic Schizoaffective disorder chr onic Hypogonadism in male acute Type 2 diabetes mellitus acu te [facility] Work Phone: Evaluation note* Diagnosis Onset Date Resolution Status Dyshidrotic hand dermatitis acute Chest pain acute Dyshidrotic hand dermatitis acute Essential hypertension acute Frontal headache acute Type 2 diabetes mellitus acu te GERD (gastroesophageal reflux disease) chronic Hyperlipemia [facility] Work Phone: Hospital course Narrative No data available for this section [facility] Hospital Discharge instructions No data available for this section [facility] Hospital Discharge instructions Additional Instructions As discussed, you can use Voltaren cream [id number] topically for anti- inflammatory effects.[facility] Work Phone: Hospital Discharge instructionsAmbulatory Orders* Nutrition Referral Location: None Selected [facility] Work Phone: Hospital Discharge instructions Additional [...] have any further concerns or worsening of symptomsWSt. [facility] Work Phone: Reason for referral (narrative)No reason for referral information availableWSt. John of God Hospital Work Phone: Summary Purpose Family History [...] No November 02 2 7:57am Power of Drink Mixer No November 02 7:57am Advance Directive Response Recorded Date/ Time Advance Directives No November 02, 2021 7:57am Living Will No July 29 2 11:20pm Power of Drink Mixer No July 29 11:20pm Advance Directive Response Recorded Date/ Time Advance Directives No November 02, 2021 6:57am Living Will No July 29 2 10:20pm Power of Drink Mixer No July 29 10:20pm Advance Directive Response Recorded Date/ Time Advance Directives No March 07 1:32pm Living Will No March 07, 2023 1 :32pm Power of Drink Mixer No March 07, 2023 1:32pm Advance Directive Response Recorded Date/ Time Advance Directives No March 07 12:32pm Living Will No March 07, 2023 1 2:32pm Power of Drink Mixer No March 07, 2023 12:32pm Advance Directive Response Recorded Date/ Time Advance Directives No January 01 4:46pm Living Will No January 02, 2024 4:46pm Power of Drink Mixer No January 01 4:46pm Advance Directive Response Recorded Date/ Time Advance Directives No January 01 4:46pm Living Will No February 19, 2024 2:27am Power of Drink Mixer No February 18 2:27am Advance Directive Response Recorded Date/ Time Living Will No March 07, 2023 1 :32pm Do you have a Healthcare Power of Drink Mixer? No March 07, 2023 1:32pm Living Will Yes November 06 10:54am Do you have a Healthcare Power of Drink Mixer? Yes November 06, 2024 10:54am Name of Medical Power of Drink Mixer MARISSA-ARTEM November 06, 2024 10:54am Living Will Yes November 14 7:48pm Do you have a Healthcare Power of Drink Mixer? Yes November 14, 2024 7:48pm Name of Medical Power of Drink Mixer Julio Lee November 14, 2024 7:48pm Advance [...] FU ARM PAIN Reason for Visit Bloating [place] stool Constipation Essential hypertension History of coronary artery stent placement Hyperlipemia Chief Complaint Intestine issues Amb Documentation E ORDER 6 M FU ARM PAIN FOLLOW UP Amb Documentation Testosterone injection educ. RT SHOULDER PAIN/RX HERE Reason for Visit Bloating [place] stool Constipation Essential hypertension History of coronary [...] History of coronary artery stent placement Hyperlipemia [id number] Essential hypertension Hypogonadism in male Impacted cerumen of both ears Obesity Type 2 diabetes mellitus Hyperlipemia Chief Complaint E ORDERS 3 M FU CHEST PAIN CHEST PAIN Wax Build-Up Reason for Visit Essential hypertensi on History of coronary artery stent placement Hyperlipemia [id number] Essential hypertension Hypogonadism in male Impacted cerumen [...] 025 2:51pm 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 with other forms of January [...] 025 2:51pm 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 with other forms of January [...] Admit Date 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 with other forms of January 01, 2025 4:05pm Erectile dysfunction January 01, 2025 4:0 5pm Low testosterone in male January 01, 2025 4:05pm Hyperlipemia January 01, 2025 4:05 pm Schizoaffective disorder January 01, 2025 4:05pm Type 2 diabetes mellitus January 01, 2025 4:05pm 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 with other forms of April [...] 10:2 8am 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 with other forms of April 27, 2025 10:28am Erectile dysfunction April 27, 2025 10: 28am Essential hypertension April 27, 2025 1 0:28am Hyperlipemia April 27, 2025 10:2 8am Type 2 diabetes mellitus April 27, 2025 10:28am Reason for Visit Admit Date Acute bronchitis April 27, 2025 10:2 8am 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 with other forms of April 27, 2025 10:28am Erectile dysfunction April 27, 2025 10: 28am Essential hypertension April 27, 2025 1 0:28am Hyperlipemia April 27, 2025 10:2 8am Type 2 diabetes mellitus April 27, 2025 10:28am 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 with other forms of May [...] 2 LAB ORDERING ED [facility] st 2024 1:28pm Rt Hip/Leg Pain June 17, 2025 3: 02pm Reason for Visit Admit Date Acute bronchitis April 27, 2025 10:2 8am 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 with other forms of April 27, 2025 10:28am Erectile dysfunction April 27, 2025 10: 28am Essential hypertension April 27, 2025 1 0:28am Hyperlipemia April 27, 2025 10:2 8am Type 2 diabetes mellitus April 27, 2025 10:28am 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 with other forms of May [...] 10:2 8am 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 with other forms of April 27, 2025 10:28am Erectile dysfunction April 27, 2025 10: 28am Essential hypertension April 27, 2025 1 0:28am Hyperlipemia April 27, 2025 10:2 8am Type 2 diabetes mellitus April 27, 2025 10:28am 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 with other forms of May 18, 2025 11:38am Concern about urinary tract disease with out diagnosis May 18, 2025 11:38am Erectile dysfunction May 18, 2025 11: 38am Essential hypertension May 18, 2025 1 1:38am Hypogonadism in male May 18, 2025 11: 38am Type 2 diabetes mellitus May 18, 2025 11:38am 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 with other forms of June [...] 10:2 8am 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 with other forms of April 27, 2025 10:28am Erectile dysfunction April 27, 2025 10: 28am Essential hypertension April 27, 2025 1 0:28am Hyperlipemia April 27, 2025 10:2 8am Type 2 diabetes mellitus April 27, 2025 10:28am 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 with other forms of May 18, 2025 11:38am Concern about urinary tract disease with out diagnosis May 18, 2025 11:38am Erectile dysfunction May 18, 2025 11: 38am Essential hypertension May 18, 2025 1 1:38am Hypogonadism in male May 18, 2025 11: 38am Type 2 diabetes mellitus May 18, 2025 11:38am 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 with other forms of June 17, 2025 3:02pm Discomfort of right hip June 17 3:02pm Essential hypertension June 17, 2025 3:02pm Impacted cerumen of both ears May 3:02pm Type 2 diabetes mellitus June 17 3:02pm Proteinuria June 17, 2025 3: 02pm 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 with other forms of July 28, 2025 10:31am Essential hypertension July 28, 025 10:31am Persistent dry cough July 28 10:31am Chief Complaint Admit Date POSSIBLE PNEUMONIA April 27, 2025 10:2 8am Possible UTI May 18, 2025 11:3 8am 2 LAB ORDERING ED [facility] st 2024 1:28pm Rt Hip/Leg Pain June [...] 10:2 8am 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 with other forms of April 27, 2025 10:28am Erectile dysfunction April 27, 2025 10: 28am Essential hypertension April 27, 2025 1 0:28am Hyperlipemia April 27, 2025 10:2 8am Type 2 diabetes mellitus April 27, 2025 10:28am 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 with other forms of May 18, 2025 11:38am Concern about urinary tract disease with out diagnosis May 18, 2025 11:38am Erectile dysfunction May 18, 2025 11: 38am Essential hypertension May 18, 2025 1 1:38am Hypogonadism in male May 18, 2025 11: 38am Type 2 diabetes mellitus May 18, 2025 11:38am 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 with other forms of June 17, 2025 3:02pm Discomfort of right hip June 17 3:02pm Essential hypertension June 17, 2025 3:02pm Impacted cerumen of both ears May 3:02pm Type 2 diabetes mellitus June 17 3:02pm Proteinuria June 17, 2025 3: 02pm 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 with other forms of July [...] section and content) DATE CREATED AUTHOR 09/21/2021 [facility] ([place]) DATE CREATED AUTHOR AUTHOR'S ORGANIZ ATION 06/08/2022 [facility] DATE CREATED AUTHOR AUTHOR'S ORGANIZ ATION 10/10/2023 [facility] DATE CREATED AUTHOR AUTHOR'S ORGANIZ ATION 05/18/2025 [facility]ter DATE CREATED AUTHOR AUTHOR'S ORGANIZ ATION 09/04/[address] [facility] Goals (unrecognized section [...] Provider, Referri ng Provider Active Leslie Holley DELI BAKERY CLERK, DELI BAKERY CLERK-C Attending Provider Active Team Status: Active Member Role Status Dates Dr. Pietro Turner MD Primary Care Provider Active Leslie Holley DELI BAKERY CLERK, DELI BAKERY CLERK-C Referring Provider, Other Provi toño Active Dr. [...] MD Primary Care Provider Active Leslie Holley DELI BAKERY CLERK, DELI BAKERY CLERK-C Attending Provider, Referring P yovanider Active Team Status: Inactive Member Role Status Dates Dr. Pietro Turner MD Primary Care Provider, Referri ng Provider Active Jocelyne Dickey DELI BAKERY CLERK, DELI BAKERY CLERK-C Attending Provider Active Team Status: Inactive Member Role Status Dates Dr. Pietro Turner MD Primary Care Provider, Referri ng Provider Active Solitario Guy PA, PA Attending Provider Active Team Status: Inactive Member Role Status Dates Dr. Pietro Turner MD Primary Care Provider Active Jocelyne Dickey DELI BAKERY CLERK, DELI BAKERY CLERK-C Attending Provider, Referring Pro vider Active Team Status: Active Member Role Status Dates Dr. Pietro Turner MD Primary Care Provider Active Jocelyne Dickey DELI BAKERY CLERK, DELI BAKERY CLERK-C Attending Provider, Referring Pro vider Active Team [...] Status: Inactive Member Role Status Dates Dr. iPetro Turner MD Primary Care Provider Active Start: [...] 2024 End: October 27, 2024 Jocelyne Dickey DELI BAKERY CLERK, DELI BAKERY CLERK-C Attending Provider Active S tart: October 27, 2024 End: October 27, 2024 Jocelyne Dickey DELI BAKERY CLERK, DELI BAKERY CLERK-C Referring Provider Active S tart: October 27, [...] Active Start: June 15, 2025 Jocelyne Dickey DELI BAKERY CLERK, DELI BAKERY CLERK-C Referring Provider Active S tart: June 15, [...] 2025 End: June 15, 2025 Jocelyne Dickey DELI BAKERY CLERK, DELI BAKERY CLERK-C Referring Provider Active S tart: June 15, [...] 2025 End: June 15, 2025 Jocelyne Dickey DELI BAKERY CLERK, DELI BAKERY CLERK-C Referring Provider Active S tart: June 15, [...] End: August 10, 2025 Jocelyne Dickey NP, DELI BAKERY CLERK-C Attending physician Active Start: August 10, 2025 [...] BE BASED ON THE PRIMARY CLINICAL RECORDS. [employer] [facility]. provides no warranty or guarantee of the accuracy or completeness of information in this document.
[2025-10-19 11:08] LABS: Fats, Neutral Normal (.); Fats, Total Normal (.)
== END | disposition home or self-care (01) ==
LOC: LABSPEC 10:34
PROVIDERS: PCP Internal Medicine; Referring Provider Internal Medicine; Visit Provider Internal Medicine
DX: R19.7 Diarrhea, unspecified (principal); E11.9 Type 2 diabetes mellitus without complications; I10 Essential (primary) hypertension
CPT/HCPCS: 82705